=== PATIENT | male | born 1955 | race Caucasian/White ===

== ENCOUNTER 2017-06-05 13:13 | Emergency (ER) | payer BC ==
[2017-06-05 13:59] LABS: Absolute Monocytes 0.9 K/uL (0.1-1.3); Absolute Neutrophil 6.5 K/uL (1.8-8.0); Eosinophils % 1.5 % (0-4.4); Hematocrit 43.3 % (39.6-49.0); Lymphocytes % 27.8 % (15.3-44.8); MCH 30.2 pg (27.0-35.0); MCV 90.9 fL (80-100); MPV 10.2 fL (7.6-11.3); Monocytes % 8.8 % (3.3-12.3); RBC Red Blood Cell Count 4.76 M/uL (4.33-5.43)
[2017-06-05 14:04] LABS: Protime INR 0.94
[2017-06-05 14:16] LABS: Potassium 3.8 mEq/L (3.6-5.0)
[2017-06-05 14:22] LABS: Albumin 4.2 g/dL (3.2-5.5); Bilirubin Direct 0.1 mg/dL (0-0.2); Bilirubin Total 0.6 mg/dL (0.3-1.2); Protein, Total 7.8 g/dL (6.0-8.3)
--- NOTE | 2017-06-05 15:08 | RAD REPORT ---
EXAM DESCRIPTION: CT - Angio Aorta For Dissection - 06/05/2017 2:51 pm CLINICAL HISTORY: Chest pain, chest pressure, pain radiating to the back, shortness of breath COMPARISON: Noncontrast CT abdomen study April 2013, MRI February 2012 TECHNIQUE: Dynamically enhanced 3 mm thick images of the chest, abdomen, and upper pelvis were obtai donn during administration of approximately 150mL Isovue 370 IV contrast. Sagittal and coronal reconst ruction images were generated and reviewed. Exam utilizes a protocol to evaluate entire course of the aorta. All CT scans are performed using dose optimization technique as appropriate and may include automated exposure control or mA/KV adjustment according to patient size. FINDINGS: Aorta is normal in diameter with no dissection or other acute aortic findings. Aortic athe rosclerotic calcifications are present without displacement. Reconstruction images show no significan t findings. Pulmonary arteries are normal. No cardiomegaly, pericardial thickening or pericardial effusion. Dense Coronary artery calcifications are present. No mass or infiltrate in the lung parenchyma. No pleural thickening, pleural effusion or pneumothorax . No abnormal mediastinal or hilar mass or lymphadenopathy seen. No chest wall mass or abnormal axillar y lymphadenopathy. Atherosclerotic calcifications are present in the celiac and superior mesenteric artery origins. Sign ificant stenosis is doubtful. Right renal artery calcifications are present without stenosis. Approxi mately 50% stenosis is estimated at the origin of the left renal artery. The liver, spleen and pancre as show no acute findings. Gallbladder is contracted. No biliary tree dilatation. A 3 centimeter low- attenuation mass of the posterior inferior left kidney is present. This has enlarged and does not alexandra w simple cyst characteristics. Complex cyst is favored over cystic malignant process. Continued follo w-up is needed. No mass or abnormal lymphadenopathy. No free air, free fluid or inflammatory strandi ng. No urinary bladder abnormality. Mild bony degenerative change present. No acute or destructive bone process. IMPRESSION: Negative CT scan of the aorta for acute finding. Estimated 50% stenosis left renal artery origin. Approximately 3.2 centimeter complex low-attenuation mass of the left kidney. This has enlarged since 2012. Complex cyst is favored over cystic renal neoplasm. Continued follow-up is needed. No other significant findings on chest, abdomen and upper pelvis examination.
[2017-06-05] MEDS ORDERED: HYDROCODONE/APAP 7.5/325 MG TAB ONE (15:49)
--- NOTE | 2017-06-05 15:56 | RAD REPORT ---
EXAM DESCRIPTION: RAD - Chest Single View - 06/05/2017 2:12 pm CLINICAL HISTORY: Chest pain COMPARISON: January 2012 TECHNIQUE: AP portable chest image was obtained 1406 hours . FINDINGS: Lung volumes are low accentuating heart, vasculature and lung markings. Focal consolidatio n or mass not suspected. Heart size is normal. Vasculature is mildly prominent. Trachea is midline. N o measurable pleural effusion and no pneumothorax. No gross bony abnormality seen. No acute aortic fi ndings suspected. IMPRESSION: Shallow inspiration film showing mild prominence of the vasculature and lung markings. Findings are believed to be shallow inspiration artifact rather than failure or volume overload
[2017-06-05] MEDS ORDERED: TRAMADOL HCL 50 MG TAB ONE (16:12)
[2017-06-05 16:45] LABS: Urine Blood NEGATIVE (NEG); Urine Glucose NEGATIVE (NEG); Urine Protein NEGATIVE (NEG); Urine Specific Gravity 1.015 (1.005-1.030); Urine pH 7.5 (5.0-7.0)
--- NOTE | 2017-06-05 17:39 | EDPHYS ---
Physician Documentation [facility] Name: Sam Perdomo Jr Age: 61 yrs Sex: Male : 1955 Arrival Date: 06/05/2017 Time: 13:15 Bed 7 Private MD: ED Physician Robbie Spain HPI: 06/05 19:03 This 61 yrs old Male presents to ER via Ambulatory with complaints of Chest kdr Pain, Back Pain. 19:04 The patient c/o pain primarily in his back that radiates into his left chest. He states kdr that this is similar to the pain he had a number of years ago when he had his first heart attack. Then the pain was much more intense and it felt like the pain was grabbing his heart. He also vomited that time. None of that is a part of this presentation. He has also recently been seen by Oumou Avila and told that his heart was in relatively good condition. Onset: The symptoms/episode began/occurred gradually, at 06:00. Severity of symptoms: At their worst the symptoms were mild in the emergency department the symptoms are unchanged. The patient has experienced a previous episode, As noted above. The patient has been recently seen by a physician: Dr. Coello. Historical: - Allergies: 13:24 diclofenac sodium; 13:24 Levofloxacin; 13:24 Iodine; hj 13:24 Meperidine; hj 13:24 Lunesta; hj 13:24 deoxepin; hj 13:24 Demerol; hj 13:24 Doxycycline; 13:24 kapidex; 13:24 Dilaudid; hj - Home Meds: 13:24 Edarbi 40 mg oral tab 1 tab once daily [Active]; amlodipine 10 mg tab 1 tab once daily [Active]; Plavix 75 mg Oral tab 1 tab once daily [Active]; Bystolic 10 mg oral tab 1 tab once daily [Active]; omeprazole 40 mg Oral cpDR 1 cap once daily [Active]; atorvastatin 20 mg oral tab 1 tab once daily [Active]; tamsulosin 0.4 mg oral cp24 1 cap once daily [Active]; - PMHx: 13:24 Myocardial infarction; hj - PSHx: 13:24 colon resection; c5-c6 disc replacement; heart cath; hj - Social history:: Smoking status: Patient/guardian denies using tobacco. ROS: 19:04 Constitutional: Negative for fever, chills, and weight loss, Eyes: Negative for injury, kdr pain, redness, and discharge, ENT: Negative for injury, pain, and discharge, Neck: Negative for injury, pain, and swelling, Respiratory: Negative for shortness of breath, cough, wheezing, and pleuritic chest pain, Abdomen/GI: Negative for abdominal pain, nausea, vomiting, diarrhea, and constipation, : Negative for injury, bleeding, discharge, and swelling, MS/Extremity: Negative for injury and deformity, Skin: Negative for injury, rash, and discoloration, Neuro: Negative for headache, weakness, numbness, tingling, and seizure activity. Psych: Negative for depression, anxiety, suicide ideation, homicidal ideation, and hallucinations, Allergy/Immunology: Negative for hives, rash, and allergies, Endocrine: Negative for neck swelling, polydipsia, polyuria, polyphagia, and marked weight changes, Hematologic/Lymphatic: Negative for swollen nodes, abnormal bleeding, and unusual bruising. 19:04 Cardiovascular: Positive for chest pain, Negative for edema, orthopnea, palpitations, paroxysmal nocturnal dyspnea, acute changes. 19:04 Back: Positive for pain at rest, of the thoracic area, Negative for injury or acute deformity, decreased range of motion. Exam: 19:04 Constitutional: This is a well developed, well nourished patient who is awake, alert, kdr and in no acute distress. Head/Face: Normocephalic, atraumatic. Eyes: Pupils equal round and reactive to light, extra-ocular motions intact. Lids and lashes normal. Conjunctiva and sclera are non-icteric and not injected. Cornea within normal limits. Periorbital areas with no swelling, redness, or edema. Neck: Trachea midline, no thyromegaly or masses palpated, and no cervical lymphadenopathy. Supple, full range of motion without nuchal rigidity, or vertebral point tenderness. No Meningismus. Chest/axilla: Normal chest wall appearance and motion. Nontender with no deformity. No lesions are appreciated. Cardiovascular: Regular rate and rhythm with a normal S1 and S2. No gallops, murmurs, or rubs. Normal PMI, no JVD. No pulse deficits. Respiratory: Lungs have equal breath sounds bilaterally, clear to auscultation and percussion. No rales, rhonchi or wheezes noted. No increased work of breathing, no retractions or nasal flaring. Abdomen/GI: Soft, non-tender, with normal bowel sounds. No distension or tympany. No guarding or rebound. No evidence of tenderness throughout. Back: No spinal tenderness. No costovertebral tenderness. Full range of motion. Skin: Warm, dry with normal turgor. Normal color with no rashes, no lesions, and no evidence of cellulitis. MS/ Extremity: Pulses equal, no cyanosis. Neurovascular intact. Full, normal range of motion. Neuro: Awake and alert, GCS 15, oriented to person, place, time, and situation. Cranial nerves II-XII grossly intact. Motor strength 5/5 in all extremities. Sensory grossly intact. Cerebellar exam normal. Normal gait. Psych: Awake, alert, with orientation to person, place and time. Behavior, mood, and affect are within normal limits. Vital Signs: 13:25 BP 142 / 84; Pulse 62; Resp 18; Temp 98.0(TE); Pulse Ox 97% on R/A; Weight 94.35 kg; hj Height 5 ft. 10 in. (177.80 cm); Pain 6/10; 14:02 BP 134 / 82; Pulse 60; Resp 14; Pulse Ox 95% on R/A; ae1 15:03 BP 136 / 79; Pulse 61; Resp 16; Pulse Ox 97% ; ae1 16:23 BP 144 / 79; Pulse 62; Resp 18; Pulse Ox 97% on R/A; ae1 17:11 BP 140 / 85; Pulse 53; Resp 16; Pulse Ox 96% on R/A; ae1 13:25 Body Mass Index 29.85 (94.35 kg, 177.80 cm) MDM: 17:38 Patient medically screened. kdr 17:40 ED course: Discussed in detail the findings and offered admission to patient and . kdr Also, d/w Dr. Coello who was comfortable with d/c at this time. Patient and were comfortable with d/c and follow-up. 19:04 Data reviewed: vital signs, nurses notes, lab test result(s), radiologic studies. kdr Counseling: I had a detailed discussion with the patient and/or guardian regarding: the historical points, exam findings, and any diagnostic results supporting the discharge/admit diagnosis, lab results, radiology results, the need for outpatient follow up. Physician consultation: Fidel Coello MD was called at 15:00, was contacted at 15:00, regarding consult, patient's condition, outpatient follow-up, and will see patient in office, in 2-3 days. 06/05 13:42 Order name: Basic Metabolic Panel kdr 06/05 13:42 Order name: CBC with Diff; Complete Time: 15:32 kdr 06/05 13:42 Order name: LFT's; Complete Time: 15:32 kdr 06/05 13:42 Order name: Magnesium; Complete Time: 15:32 kdr 06/05 13:42 Order name: PT-INR; Complete Time: 15:32 kdr 06/05 13:42 Order name: Ptt, Activated; Complete Time: 15:32 kdr 06/05 13:42 Order name: Troponin (emerg Dept Use Only); Complete Time: 15:32 kdr 06/05 13:42 Order name: XRAY Chest (1 view); Complete Time: 17:13 kdr 06/05 13:43 Order name: Basic Metabolic Panel; Complete Time: 15:32 EDMS 06/05 14:43 Order name: Angio Aorta For Dissection; Complete Time: 15:32 EDMS 06/05 15:33 Order name: Troponin (emerg Dept Use Only): Repeat 2 hours after initial draw; Complete kdr Time: 17:06/05 16:42 Order name: Urine Dipstick--Ancillary (enter results); Complete Time: 17:13 ag 06/05 13:42 Order name: EKG; Complete Time: 13:43 kdr 06/05 13:42 Order name: Cardiac monitoring; Complete Time: 14:00 kdr 06/05 13:42 Order name: EKG - Nurse/Tech; Complete Time: 14:00 kdr 06/05 13:42 Order name: IV Saline Lock; Complete Time: 14:00 kdr 06/05 13:42 Order name: Labs collected and sent; Complete Time: 14:00 kdr 06/05 13:42 Order name: O2 Per Protocol; Complete Time: 14:00 kdr 06/05 13:42 Order name: O2 Sat Monitoring; Complete Time: 14:00 kdr 06/05 13:42 Order name: Urine Dipstick-Ancillary (obtain specimen); Complete Time: 16:23 kdr Administered Medications: 16:03 Not Given (Patient Refused): [place] (7.5 mg-325 mg) 1 tabs PO once ae1 16:13 Drug: traMADol 50 mg Route: PO; ae1 Disposition: 06/05/17 17:38 Discharged to Home. Impression: Upper back pain, chest pain - unspecified/non-cardiac. - Condition is Stable. - Discharge Instructions: Nonspecific Chest Pain, Gspi-hm-[id number], Back Pain, Adult, Xeca-ut-Cuhl. - Prescriptions for Tramadol 50 mg Oral Tablet - take 1 tablet by ORAL route every 8 hours as needed; 12 tablet. - Medication Reconciliation Form, Thank You Letter form. - Follow up: Private Physician; When: 2 - 3 days; Reason: If symptoms return, Further diagnostic work-up, Recheck today's complaints, Continuance of care, Re-evaluation by your physician. - Problem is new. - Symptoms have improved. - Notes: Follow-up with Dr. Coello in the next 24-48 hours. Signatures: Dispatcher [employer] EDMS Robbie Spain MD MD [facility] Audra Millan RN RN Ramsey Saenz, MARCELINO RN Boo Boateng RN RN ae1 Corrections: (The following items were deleted from the chart) 14:27 13:43 BNP+C.LAB.BRZ ordered. EDMS EDMS 14:43 13:45 Chest Angio+CT.RAD.BRZ ordered. EDMS EDMS
--- NOTE | 2017-06-05 17:39 | ER ---
Nurse's Notes [facility] Name: Sam Perdomo Jr Age: 61 yrs Sex: Male : 1955 Arrival Date: 06/05/2017 Time: 13:15 Bed 7 Private MD: Diagnosis: Upper back pain, chest pain - unspecified/non-cardiac Presentation: 06/05 13:17 Presenting complaint: Patient states: 6 am this morning, i started having chest pain, hj heavy, pressure type, and my back hurts too; denies nausea and vomiting; reports SOB;. Transition of care: patient was not received from another setting of care. Onset of symptoms was June 05, 2017. Care prior to arrival: None. 13:17 Method Of Arrival: Ambulatory 13:17 Acuity: MELODY 3 hj Triage Assessment: 13:24 General: Appears in no apparent distress. uncomfortable, Behavior is calm, cooperative, hj appropriate for age. Pain: Complains of pain in chest Pain radiates to back. Cardiovascular: Capillary refill < 3 seconds Patient's skin is warm and dry. Historical: - Allergies: 13:24 diclofenac sodium; hj 13:24 Levofloxacin; hj 13:24 Iodine; hj 13:24 Meperidine; hj 13:24 Lunesta; hj 13:24 deoxepin; hj 13:24 Demerol; hj 13:24 Doxycycline; hj 13:24 kapidex; hj 13:24 Dilaudid; hj - Home Meds: 13:24 Edarbi 40 mg oral tab 1 tab once daily [Active]; amlodipine 10 mg tab 1 tab once daily [Active]; Plavix 75 mg Oral tab 1 tab once daily [Active]; Bystolic 10 mg oral tab 1 tab once daily [Active]; omeprazole 40 mg Oral cpDR 1 cap once daily [Active]; atorvastatin 20 mg oral tab 1 tab once daily [Active]; tamsulosin 0.4 mg oral cp24 1 cap once daily [Active]; - PMHx: 13:24 Myocardial infarction; hj - PSHx: 13:24 colon resection; c5-c6 disc replacement; heart cath; hj - Social history:: Smoking status: Patient/guardian denies using tobacco. Screenin:06 Abuse screen: Denies threats or abuse. Nutritional screening: No deficits noted. ae1 Tuberculosis screening: No symptoms or risk factors identified. Fall Risk None identified. Assessment: 13:24 Pain: Pain began 7 hours ago;. hj 13:35 General: Appears in no apparent distress. uncomfortable, Behavior is cooperative, ae1 anxious. Pain: Complains of pain in left scapular area, right scapular area, left subscapular area, right subscapular area and thoracic area. Neuro: Level of Consciousness is awake, alert, obeys commands, Oriented to person, place, time, situation. Cardiovascular: Reports chest pressure. Patient's skin is warm and dry. Respiratory: Airway is patent Respiratory effort is even, unlabored, shallow, Respiratory pattern is regular, Breath sounds are clear bilaterally. Breath sounds are diminished in left posterior lower lobe, right posterior middle lobe and right posterior lower lobe. GI: No signs and/or symptoms were reported involving the gastrointestinal system. Reports nausea. : No signs and/or symptoms were reported regarding the genitourinary system. EENT: No signs and/or symptoms were reported regarding the EENT system. Derm: Skin is pale. Musculoskeletal: Reports Generalized weakness. 15:04 Reassessment: Patient appears in no apparent distress at this time. Patient and/or ae1 family updated on plan of care and expected duration. Pain level reassessed. 16:05 Reassessment: Patient states he is sensitive to pain medications and would like to take ae1 a medication that he knows he does not have a reaction to, patient is requesting tramadol. Provider notified, new orders for Tramadol received. Pain: Complains of pain in left scapular area, right scapular area, left subscapular area, right subscapular area and thoracic area. Vital Signs: 13:25 BP 142 / 84; Pulse 62; Resp 18; Temp 98.0(TE); Pulse Ox 97% on R/A; Weight 94.35 kg; hj Height 5 ft. 10 in. (177.80 cm); Pain 6/10; 14:02 BP 134 / 82; Pulse 60; Resp 14; Pulse Ox 95% on R/A; ae1 15:03 BP 136 / 79; Pulse 61; Resp 16; Pulse Ox 97% ; ae1 16:23 BP 144 / 79; Pulse 62; Resp 18; Pulse Ox 97% on R/A; ae1 17:11 BP 140 / 85; Pulse 53; Resp 16; Pulse Ox 96% on R/A; ae1 13:25 Body Mass Index 29.85 (94.35 kg, 177.80 cm) ED Course: 13:15 Patient arrived in ED. tw3 13:19 Triage completed. hj 13:24 Arm band placed on right wrist. hj 13:25 Patient maintains SpO2 saturation greater than 95% on room air. hj 13:29 Rj Evangelista, RN is Primary Nurse. jl7 13:31 Robbie Spain MD is Attending Physician. kdr 13:59 Boo Boateng, RN is Primary Nurse. ae1 14:06 Placed in gown. Bed in low position. Call light in reach. Side rails up X 1. Adult w/ ae1 patient. environmental monitoring specialist on. Pulse ox on. NIBP on. 14:09 X-ray completed. Portable x-ray completed in exam room. jr1 14:10 XRAY Chest (1 view) In Process Unspecified. EDMS 14:51 Angio Aorta For Dissection In Process Unspecified. EDMS Administered Medications: 16:03 Not Given (Patient Refused): [place] (7.5 mg-325 mg) 1 tabs PO once ae1 16:13 Drug: traMADol 50 mg Route: PO; ae1 Outcome: 17:38 Discharge ordered by . kdr 18:40 Patient left the ED. Signatures: Dispatcher [employer] EDMS Robbie Spain MD MD [facility] Crys Castillo jr1 Audra Milaln RN RN Ramsey Saenz RN RN Boo Boateng RN RN ae1 Rj Evangelista RN RN jl7 Calvin, Tia tw3 Corrections: (The following items were deleted from the chart) 13:27 13:25 Pulse 62bpm; Resp 18bpm; Pulse Ox 97% RA; Temp 98.0F Temporal; 94.35 kg; Height 5 hj ft. 10 in.; BMI: 29.8; Pain 6/10; hj
[2017-06-05 18:46] VITALS: TEMP 98
[2017-06-05 18:49] VITALS: BP 140/85; O2SAT 96
--- NOTE | 2017-06-05 22:30 | EKG ---
Test Date: 2017-06-05 Test Time: 13:36:41 [place]: MAXWELL MEASUREMENT RESULTS: Intervals: Rate: 69 DC: 130 QRSD: 94 QT: 434 QTc: 465 [place]: P: 11 DC: 130 QRS: 20 T: 31 INTERPRETIVE STATEMENTS: Normal sinus rhythm Normal ECG No previous ECG available for comparison Electronically Signed On 06-05-17 22:29:42 CDT by Izaiah Barone
== END 2017-06-05 18:40 | disposition home or self-care (01) ==
LOC: ER 13:13
DX: R07.89 Other chest pain (principal); I25.2 Old myocardial infarction; Z79.01 Long term (current) use of anticoagulants; Z88.1 Allergy status to other antibiotic agents; Z88.3 Allergy status to other anti-infective agents; Z88.5 Allergy status to narcotic agent; Z88.8 Allergy status to other drugs, medicaments and biological substances
CPT/HCPCS: 36415; 71045; 71275; 74175; 80048; 80076; 81003; 83735; 84484; 85025; 85610; 85730; 93005; 99285; Q9967

== ENCOUNTER 2018-05-29 10:54 | Day surgery (SDC) | payer BC ==
--- NOTE | 2018-05-29 10:00 | RAD REPORT ---
EXAM DESCRIPTION: RAD - Chest Pa And Lat (2 Views) - 05/29/2018 9:38 am CLINICAL HISTORY: Preop chest, pending temporal artery biopsy COMPARISON: None. TECHNIQUE: PA and lateral views of the chest were obtained. FINDINGS: The lungs are clear of an acute process. Interstitial pattern is similar to comparison. Heart size is normal and central vasculature is within normal limits. No pleural effusion or pneumot horax seen. No acute bony finding noted. No aortic abnormality. IMPRESSION: No acute cardiopulmonary process.
[2018-05-29 10:09] LABS: Potassium 4.3 mmol/L (3.5-5.1)
[2018-05-29] MEDS ORDERED: CEFAZOLIN/SWI 1gm 1 GM/10 ML SYR ONE (11:24)
[2018-05-29] MEDS ORDERED: Ringers Lactate 1,000 ML IV ONE (11:24)
[2018-05-29 11:42] VITALS: O2SAT 98
[2018-05-29] MEDS ORDERED: LIDOCAINE 1% MPF 30 ML VIAL ONE (11:48)
[2018-05-29] MEDS ORDERED: PROPOFOL 200 MG/20 ML VIAL IV ONE (12:39)
[2018-05-29] MEDS ORDERED: MIDAZOLAM HCL 2 MG/2 ML INJ ONE (12:40)
[2018-05-29] MEDS ORDERED: LIDOCAINE 2% MPF 5 ML VIAL ONE (12:40)
[2018-05-29] MEDS ORDERED: Mastisol Adhesive Liq ONE (13:21)
[2018-05-29] MEDS ORDERED: TRAMADOL 37.5mg/APAP 325mg PER TAB ONE (13:46)
[2018-05-29 14:40] VITALS: BP 147/74; TEMP 97.6
--- NOTE | 2018-05-30 01:59 | OP ---
Date of Procedure: 05/29/2018 Surgeon: Jose Saxena MD Line Lead: Ines Sidhu Preoperative Diagnoses: Headaches and vision changes, right side, rule out temporal arteritis. Postoperative Diagnoses: Headaches and vision changes, right side, rule out temporal arteritis. Procedure: Right temporal artery biopsy, Doppler aided. Estimated Blood Loss: Minimal. Specimen: Right temporal artery finding as above. Anesthesia: MAC. Complications: None. Disposition: The patient tolerated the procedure in stable condition and taken to recovery in good g eneral condition. Procedure In Detail: The patient was brought to the OR and placed in supine position. MAC anesthesi a was begun. The patient was prepped and draped in usual sterile fashion. Doppler device was used t o identify a branch of the right temporal artery inferior and superior to the right ear. A 4-cm inci brionna was made after Marcaine 0.5% was infiltrated locally and then subcutaneous tissue was divided an d the proximal-distal control was obtained of the branch of the temporal artery. A 4-cm segment was cut and sent to Pathology as specimen. Tied off with 4-0 silk. Wound was irrigated. Bleeding was c ontrolled with cautery. A 4-0 chromic was used to approximate the subcutaneous tissue and close the skin. Sterile dressing was applied. The patient was awakened and taken to recovery in good general condition. Discharge Note: The patient will go to day surgery and home when stable. Disposition: Home. Condition: Stable. Discharge Instructions: Resume home meds and diet. Activity as tolerated. No heavy lifting. Remov e outer dressing in 2 days. Shower. Keep wound clean and dry. Keep Steri-Strips on at all times. Follow up in my office in 2 weeks. Call for appointment. Follow with Dr. Hernandez in 1 week. Call for appointment. Ultracet 1 tablet p.o. q.4 p.r.n. pain. /MODL Voice ID: [id number] Report ID: [id number]
--- NOTE | 2018-05-30 11:33 | EKG ---
Test Date: 2018-05-29 Test Time: 09:32:25 [employer] Dispatcher: GINA MEASUREMENT RESULTS: Intervals: Rate: 59 VA: 130 QRSD: 102 QT: 436 QTc: 431 [place]: P: 21 VA: 130 QRS: 45 T: 69 INTERPRETIVE STATEMENTS: Sinus bradycardia Nonspecific T wave abnormality Abnormal ECG Compared to ECG 04/27/2016 15:50:29 T-wave abnormality now present Electronically Signed On 05-29-18 10:47:45 CDT by Izaiah Barone
== END 2018-05-29 14:24 | disposition home or self-care (01) ==
LOC: OR 10:54
PROVIDERS: ATTEND Surgery
PROC: 03BS0ZX Excision of Right Temporal Artery, Open Approach, Diagnostic (ICD-10-PCS; principal; 2018-05-29 13:15)
DX: R51 Headache (principal); I25.10 Atherosclerotic heart disease of native coronary artery without angina pectoris; K21.9 Gastro-esophageal reflux disease without esophagitis; I10 Essential (primary) hypertension; I25.2 Old myocardial infarction; Z88.3 Allergy status to other anti-infective agents; Z88.6 Allergy status to analgesic agent
CPT/HCPCS: 36415; 71046; 80048; 88305; 93005; J0690; J2250; J2704

== ENCOUNTER 2019-12-02 04:37 | Observation (INO) | payer MEDICARE ==
--- OUTSIDE RECORDS SUMMARY | 2019-12-02 04:40 | XMS REPORT | Continuity of Care Document ---
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, systemic N euro arterial (disorder) Hyperlipidemia Active Problem 10/14/2019 Misc her (disorder) Neuro Temporal arteritis Active Problem 10/14/2019 [facility] (disorder) Neuro Shoulder pain Active Problem 10/14/2019 Misch er (finding) Neuro Medications Medication Details Route Status Patient Ordering Order Source Instructions Provider Date Prednisone 1 MG 2 mg = 2 Active Mischer Oral Tablet tab, PO, 020 Neuro Daily, # 60 tab, 4 Refill(s), Pharmacy: [facility] #[id number], 172.72, cm, 10/11/19 10:47:00 CDT, Height, 94.545, kg, 10/11/19 10:47:00 CDT, Weight predniSONE 2.5 2.5 mg = 1 Active Mische r mg oral tablet tab, PO, 020 Neuro Daily, # 30 tab, 3 Refill(s), Pharmacy: [facility] #[id number] predniSONE 2.5 5 mg = 2 Active Mischer mg oral tablet tab, PO, 019 Neuro Daily, # 60 tab, 3 Refill(s), Pharmacy: [facility] #[id number] predniSONE 2.5 7.5 mg = 3 Active Mische r mg oral tablet tab, PO, 019 Neuro Daily, # 90 tab, 3 Refill(s), Pharmacy: [facility] #[id number] Restasis 0.4 mL, BOTH Active Mischer EYES, BID, 0 019 Neuro Refill(s) predniSONE 2.5 5 mg = 2 Active Mischer mg oral tablet tab, PO, 019 Neuro Daily, # 60 tab, 3 Refill(s), Pharmacy: [facility] #[id number] predniSONE 2.5 7.5 mg = 3 No Longer Misc her mg oral tablet tab, PO, Active 019 Neuro Daily, # 90 tab, 3 Refill(s), Pharmacy: [facility] [id number] predniSONE 2.5 5 mg = 2 Active Mischer mg oral tablet tab, PO, 019 Neuro Daily, # 60 tab, 3 Refill(s), Pharmacy: [facility] [id number] clopidogrel 75 75 mg = 1 Active Mischer mg oral tablet tab, PO, 019 Neuro Daily, # 30 tab, 0 Refill(s) amLODIPine 10 10 mg = 1 Active Mischer mg oral tablet tab, PO, 019 Neuro Daily, # 90 tab, 0 Refill(s) atorvastatin 20 20 mg = 1 Active Mische r mg oral tablet tab, PO, 019 Neuro Bedtime, # 30 tab, 0 Refill(s) azilsartan 40 mg = 1 Active Mischer medoxomil 40 MG tab, PO, 019 Neuro Oral Tablet Daily, 0 [Edarbi] Refill(s) omeprazole 40 40 mg = 1 Active Mischer mg oral delayed cap, PO, 019 Neuro release capsule Daily, # 30 cap, 0 Refill(s) nebivolol 20 MG 40 mg = 2 Active Mische r Oral Tablet tab, PO, 019 Neuro [Bystolic] Bedtime, 0 Refill(s) Aspirin 81 MG 81 mg = 1 Active [facility]ischer Enteric Coated tab, PO, 019 Neuro Tablet Daily, # 90 tab, 3 Refill(s) Allergies, Adverse Reactions, Alerts Substance Category Reaction Severity Reaction Status Date Comments S ource type Reported diclofenac Assertion Drug Active Mis berkley allergy Neuro Dilaudid Assertion ME^Mild Drug Active Misch er allergy Neuro Demerol Assertion Drug Active Mische r allergy Neuro Lunesta Assertion Drug Active Mische r allergy Neuro iodine Assertion Drug Active Mische r allergy Neuro Kapidex Assertion ME^Mild Drug Active Mische r allergy Neuro Dexilant Assertion ME^Mild Drug Active Misch er allergy Neuro levoFLOXacin Assertion Drug Active M ischer allergy Neuro Immunizations No Data Provided for This Section Results No Data Provided for This Section Pathology Reports No Data Provided for This Section Diagnostic Reports No Data Provided for This Section Consultation Notes No Data Provided for This Section Discharge Summaries No Data Provided for This Section History and Physicals No Data Provided for This Section Vital Signs Vital Sign Value Date Comments Source Systolic (mm Hg) 137 10/11/2019 [facility] He ro Diastolic (mm Hg) 73 10/11/2019 [facility] Ne uro Heart Rate 60 10/11/2019 [facility] Neuro Respitory Rate 16 10/11/2019 [facility] Neuro Height 172.72 cm 10/11/2019 [facility] Neuro Weight 94.545 10/11/2019 [facility] Neuro BMI Calculated 31.69 10/11/2019 [facility] Neuro Systolic (mm Hg) 125 07/11/2019 [facility] He ro Diastolic (mm Hg) 71 07/11/2019 [facility] Ne [facility]ro Height 177.8 [facility] Weight 88.182 07/11/2019 [facility] Neuro BMI Calculated 27.89 07/11/2019 [facility] Systolic (mm Hg) 127 04/12/2019 [facility] He ro Diastolic (mm Hg) 77 04/12/2019 [facility] Ne uro Heart Rate 53 04/12/2019 [facility] Respitory Rate 16 04/12/2019 [facility] Neuro Height 177.8 cm 04/12/2019 [facility] Neuro Weight 92.727 04/12/2019 [facility] BMI Calculated 29.33 04/12/2019 [facility] Systolic (mm Hg) 128 11/10/2018 [facility] He ro Diastolic (mm Hg) 77 11/10/2018 [facility] Ne uro Heart Rate 68 11/10/2018 [facility] Respitory Rate 16 11/10/2018 [facility] Height 177.8 cm 11/10/2018 [facility] Weight 97.273 11/10/2018 [facility] Neuro BMI Calculated 30.77 11/10/2018 [facility] Neuro Weight 95.909 09/22/2018 [facility] Neuro BMI Calculated 33.12 09/22/2018 [facility] Height 170.18 cm 09/22/2018 [facility] Neuro Heart Rate 66 09/22/2018 [facility] Neuro Respitory Rate 16 09/22/2018 [facility] Neuro Systolic (mm Hg) 130 09/22/2018 [facility] He ro Diastolic (mm Hg) 79 09/22/2018 [facility] Ne uro BMI Calculated 29.76 08/18/2018 [facility] Neuro Weight 94.091 08/18/2018 [facility] Neuro Height 177.8 cm 08/18/2018 [facility] Neuro Respitory Rate 16 08/18/2018 [facility] Heart Rate 62 08/18/2018 [facility] Neuro Systolic (mm Hg) 128 08/18/2018 [facility] He ro Diastolic (mm Hg) 75 08/18/2018 [facility] Ne uro Height 177.8 cm 07/08/[place] [facility] [place] Calculated 29.62 07[facility]08/[facility] Weight 93.636 07/08/2018 [facility] Respitory Rate 16 07/08/2018 [facility] [place] Rate 74 07/08/2018 [facility] [place] Systolic (mm Hg) 106 07/08/2018 [facility] He ro Diastolic (mm Hg) 67 07/08/2018 [facility] En[facility]ters Location Location Encounter Encounter Reason Attending ADM MS Stat us Source Details Type Number For Provider Date Date Visit Outpatient [id number] Mario 07/07 Active [facility] Outpatient [id number] Mario 07/07 07/08 [facility] [place] [facility] [place] [id number] Mario 08/18 [facility] [place] [facility] [place] [id number] Mario 08/18 08/19 [facility] [place] [facility] [place] [id number] Mario 09/22 [facility] MNA Outpatient [id number] Mario 09/22 09/23 [facility] [place] [facility] [place] [id number] Mario 11/03 Active [facility] [place] [facility] Amb[facility] [id number] Mario 11/03 11/03 [facility] [place] [facility] [place] Outpatient [id number] Mario 11/10 Active [facility] [place] [facility] Out[place] [id number] Mario 11/10 11/11 [facility] [place] [facility] [place]patient [id number] Mario 12/22 Active [facility] [place] [facility] Amb[facility] [id number] Mario 12/22 12/22 [facility] [place] [facility] [place] Outpatient [id number] Mario 03/07 [facility] [place] Out[facility] [id number] Mario 04/12 [facility] Ambulatory [id number] Mario 04/12 04/12 [facility] [place] [facility] Outpatient [id number] Mario 04/12 04/13 [facility]2019 [facility] [place] Outpatient [id number] Mario 07/10 Active [facility] [place] [facility] Outpatient [id number] Purvi 07/10 07/11 [facility] [place] /2019 [facility] [place] Outpatient [id number] Mario 10/10 [facility] Out[facility] [id number] Mario 10/10 Active [facility] Outpatient [id number] 10/10 [facility] [place] /2019 [facility] [place] [facility] Ambulatory [id number] 10/10 [facility] [place] [facility]2019 Neur o [place] Outpatient [id number] Mario 01/10 Active [facility] [place] Procedures Procedure Code Date Perfomer Comments Source Cervical [id number] [facility] [place]ce[place] Assessment and Plan No Data Provided for This Section Plan of Care No Data Provided for This Section Social History Social History Date Source Social History TypeResponse 10/11/2019 [facility] Smoking Status Never smoker; Exposure to Tobacco Smoke None; Cigarette Smoking Last 365 Days No; Reg Smoking Cessation Counseling No entered on: 10/11/19 Family History No Data Provided for This Section Advance Directives No Data Provided for This Section Functional Status No Data Provided for This Section
--- OUTSIDE RECORDS SUMMARY | 2019-12-02 04:40 | XMS REPORT | Summary of Care ---
:1955 Author Organization [facility] Address [address] [place] [address]- phone Encounter HQ Jose A_chema(FIN) [id number] Date(s): 10/11/19 - 10/11/19 [facility] [address], [place] [address]- [phone] Discharge Disposition: Home or Self Care Attending Physician: Mario Petit MD Referring Physician: Purvi Hernandez MD Vital Signs Most recent to oldest [Reference Range]: 1 Height 172.72 cm (10/11/19 10:47 AM) Blood Pressure [90-140/60-90 mmHg] 137/73 mmHg (10/11/19 10:47 AM) Respiratory Rate [14-20 BRMIN] 16 BRMIN (10/11/19 10:47 AM) Peripheral Pulse Rate [60-100 bpm] 60 bpm (10/11/19 10:47 AM) Weight 94.545 kg (10/11/19 10:47 AM) Body Mass Index 31.69 m2 (10/11/19 10:47 AM) Problem List Condition Effective Dates Status Health Status Informant HTN - Hypertension(Confirmed) Active Hyperlipidemia(Confirmed) Active Left shoulder pain(Confirmed) Active Right shoulder pain(Confirmed) Active Temporal arteritis(Confirmed) Active Allergies, Adverse Reactions, Alerts Substance Reaction Severity Status diclofenac Active Dilaudid DC^Mild Active Demerol Active Lunesta Active iodine Active Kapidex DC^Mild Active Dexilant DC^Mild Active levoFLOXacin Active Medications predniSONE 1 mg oral tablet 2 mg = 2 tab, PO, Daily, # 60 tab, 4 Refill(s), Pharmacy: [facility] #[id number], 172.72, cm, 10/11/19 10:47:00 CDT, Height, 94.545, kg, 10/11/19 10:47:00 CDT, Weight Start Date: 10/11/19 Stop Date: 03/09/20 Status: Ordered Results No data available for this section Immunizations No data available for this section Procedures Procedure Date Related Diagnosis Body Site Status Cervical discectomy Complete d Social History Social History Type Response Smoking Status Never smoker; Exposure to To bacco Smoke None; Cigarette Smoking Last 365 Days No; Reg Smoking Cessation Counseling No entered on: 10/11/19 Assessment and Plan No data available for this section
--- OUTSIDE RECORDS SUMMARY | 2019-12-02 04:41 | XMS REPORT | Summary of Care ---
:1955 Author Organization [facility] Address [address] [place] [address]- phone Encounter HQ Encntr_alias(FIN) [id number] Date(s): 10/11/19 - 10/11/19 [facility] [address] [place] [address]- [phone] Attending Physician: Mario ePtit MD Referring Physician: Purvi Hernandez MD Vital Signs No data available for this section Problem List Condition Effective Dates Status Health Status Informant HTN - Hypertension(Confirmed) Active Hyperlipidemia(Confirmed) Active Left shoulder pain(Confirmed) Active Right shoulder pain(Confirmed) Active Temporal arteritis(Confirmed) Active Allergies, Adverse Reactions, Alerts Substance Reaction Severity Status diclofenac Active Dilaudid PR^Mild Active Demerol Active Lunesta Active iodine Active Kapidex PR^Mild Active Dexilant PR^Mild Active levoFLOXacin Active Medications No data available for this section Results No data available for this section [...]
[2019-12-02 05:00] LABS: Absolute Lymphocytes (CBC) 2.8 K/uL (0.7-4.9); Basophils % 0.7 % (0-1.3); Hematocrit 44.4 % (39.6-49.0); Lymphocytes % 28.2 % (15.3-44.8); MPV 10.1 fL (7.6-11.3); RBC Red Blood Cell Count 4.79 M/uL (4.33-5.43)
[2019-12-02 05:03] LABS: Protime INR 0.89
[2019-12-02 05:26] LABS: ALT/SGPT 36 U/L (12-78); AST/SGOT 17 U/L (15-37); Albumin 3.6 g/dL (3.4-5.0); Alkaline Phosphatase 63 U/L (45-117); BUN Blood Urea Nitrogen 16 mg/dL (7-18); Bicarbonate 27 mmol/L (21-32); Bilirubin Direct < 0.1 mg/dL (0-0.2); Bilirubin Total 0.2 mg/dL (0.2-1.0); Glucose Level 121 mg/dL (74-106); Magnesium 2.4 mg/dL (1.8-2.4); NT PRO-BNP 49 pg/mL (<125); Potassium 3.9 mmol/L (3.5-5.1); Protein, Total 7.3 g/dL (6.4-8.2); Sodium Level 143 mmol/L (136-145); Troponin (Emerg Dept Use Only) < 0.02 ng/mL (0.0-0.045)
--- NOTE | 2019-12-02 06:52 | ER ---
Nurse's Notes [facility] Name: Sam Perdomo Jr Age: 64 yrs Sex: Male : 1955 Arrival Date: 12/02/2019 Time: 04:39 Bed 8 Private MD: Diagnosis: Angina pectoris, unspecified Presentation: 12/01 04:39 Chief complaint: Chief complaint: EMS states: Pt reports he has been having on and off ea chest pain for the past two days reports today has been worse. Pt states he feels palpitations and the pain is in his back. 04:40 Coronavirus screen: At this time, the client does not indicate any symptoms associated ea with coronavirus-19. Ebola Screen: No symptoms or risks identified at this time. Initial Sepsis Screen: Does the patient meet any 2 criteria? No. Patient's initial sepsis screen is negative. Does the patient have a suspected source of infection? No. Patient's initial sepsis screen is negative. Risk Assessment: Do you want to hurt yourself or someone else? Patient reports no desire to harm self or others. Onset of symptoms was December 02, 2019. 04:40 Method Of Arrival: EMS: [facility] ea 04:40 Acuity: MELODY 3 ea Triage Assessment: 04:51 General: Appears uncomfortable, Behavior is appropriate for age. Pain: Complains of ea pain in back and chest. Neuro: Level of Consciousness is awake, alert, obeys commands, Oriented to person, place, time. Cardiovascular: Patient's skin is warm and dry. Respiratory: Airway is patent Respiratory effort is even, unlabored, Respiratory pattern is regular, symmetrical. Derm: Skin is pink, warm \T\ dry. Historical: - Allergies: 04:45 Demerol; ea 04:45 deoxepin; ea 04:45 diclofenac sodium; ea 04:45 Dilaudid; ea 04:45 Doxycycline; ea 04:45 Iodine; ea 04:45 kapidex; ea 04:45 Levofloxacin; ea 04:45 Lunesta; ea 04:45 Meperidine; ea - Home Meds: 04:45 amlodipine 10 mg tab 1 tab once daily [Active]; atorvastatin 20 mg Oral tab 1 tab once ea daily [Active]; Bystolic 10 mg Oral tab 1 tab once daily [Active]; Edarbi 40 mg Oral tab 1 tab once daily [Active]; omeprazole 40 mg Oral cpDR 1 cap once daily [Active]; Plavix 75 mg Oral tab 1 tab once daily [Active]; tamsulosin 0.4 mg Oral cp24 1 cap once daily [Active]; - PMHx: 04:45 Myocardial infarction; ea - PSHx: 04:45 heart cath; c5-c6 disc replacement; ea - Immunization history:: Adult Immunizations up to date. - Social history:: Smoking status: Patient denies any tobacco usage or history of. Screenin:43 Abuse screen: Denies threats or abuse. Nutritional screening: No deficits noted. ea Tuberculosis screening: No symptoms or risk factors identified. Fall Risk None identified. Assessment: 04:51 Reassessment: See triage assessment. ea 06:00 Reassessment: Patient appears in no apparent distress at this time. Patient and/or jb4 family updated on plan of care and expected duration. Pain level reassessed. Patient is alert, oriented x 3, equal unlabored respirations, skin warm/dry/pink. 07:00 Reassessment: Patient appears in no apparent distress at this time. Patient and/or ph family updated on plan of care and expected duration. Pain level reassessed. Patient is alert, oriented x 3, equal unlabored respirations, skin warm/dry/pink. Pt resting quietly, reports chestpain 4/10, offered to get pain medication but pt declined. 08:00 Reassessment: Patient appears in no apparent distress at this time. Patient and/or ph family updated on plan of care and expected duration. Pain level reassessed. Patient is alert, oriented x 3, equal unlabored respirations, skin warm/dry/pink. Report called to MARCELINO Ledezma on 2nd floor. Vital Signs: 04:40 BP 172 / 79; Pulse 58; Resp 18; Temp 97.8; Pulse Ox 98% ; Weight 94.35 kg; Height 5 ft. ea 10 in. (177.80 cm); Pain 4/10; 06:00 BP 142 / 84; Pulse 53; Resp 16; Pulse Ox 96% on R/A; jb4 06:30 BP 146 / 86; Pulse 52; Resp 16; Pulse Ox 97% on R/A; jb4 07:28 BP 144 / 73; Pulse 50; Resp 18; Temp 97.6; Pulse Ox 96% on R/A; ph 04:40 Body Mass Index 29.84 (94.35 kg, 177.80 cm) ea ED Course: 04:39 Patient arrived in ED. ea 04:43 Triage completed. ea 04:43 Patient has correct armband on for positive identification. Bed in low position. Call ea light in reach. Side rails up X2. power equipment mechanics instructor on. Pulse ox on. NIBP on. 04:44 Patient placed in an exam room, on a stretcher, on cardiac exercise physiologist, on pulse oximetry. ea 04:45 Initial lab(s) drawn, by me, sent to lab. Inserted saline lock: 18 gauge in right jb4 antecubital area, using aseptic technique. Blood collected. 04:48 Kris Sheets MD is Attending Physician. tw4 04:51 Patient maintains SpO2 saturation greater than 95% on room air. ea 05:12 XRAY Chest (1 view) In Process Unspecified. EDNH 05:31 Susu Abbasi RN is Primary Nurse. ea 06:51 Prince Thomas MD is Hospitalizing Provider. tw4 07:14 No provider procedures requiring assistance completed. Patient admitted, IV remains in ea place. Administered Medications: No medications were administered Outcome: 06:51 Decision to Hospitalize by Provider. tw4 07:14 Condition: stable ea 07:14 Instructed on the need for admit, Demonstrated understanding of instructions. 08:14 Admitted to Tele accompanied by tech, via wheelchair, room 221, with chart, Report ph called to [facility] 08:14 Patient left the ED. ph Signatures: Dispatcher [employer] Nguyen Roger RN RN ph Bryson, James, RN RN jb4 Antunez, Elena, RN RN ea Wadley, Terrence, MD MD tw4 Corrections: (The following items were deleted from the chart) 04:43 04:39 Chief complaint: ea ea
--- NOTE | 2019-12-02 06:52 | EDPHYS ---
Physician Documentation [facility] Name: Sam Perdomo Jr Age: 64 yrs Sex: Male : 1955 Arrival Date: 12/02/2019 Time: 04:39 Bed 8 Private MD: ED Physician Kris Sheets HPI: 12/01 06:03 This 64 yrs old Male presents to ER via EMS with complaints of Chest Pain. tw4 06:03 The patient or guardian reports chest pain that is located primarily in the anterior tw4 chest wall, left. Onset: today. The pain does not radiate. Associated signs and symptoms: The patient has no apparent associated signs or symptoms. The chest pain is described as dull. Duration: The patient or guardian reports a single episode. Modifying factors: The symptoms are alleviated by nothing. the symptoms are aggravated by nothing. The patient has not experienced similar symptoms in the past. Historical: - Allergies: 04:45 Demerol; ea 04:45 deoxepin; ea 04:45 diclofenac sodium; ea 04:45 Dilaudid; ea 04:45 Doxycycline; ea 04:45 Iodine; ea 04:45 kapidex; ea 04:45 Levofloxacin; ea 04:45 Lunesta; ea 04:45 Meperidine; ea - Home Meds: 04:45 amlodipine 10 mg tab 1 tab once daily [Active]; atorvastatin 20 mg Oral tab 1 tab once ea daily [Active]; Bystolic 10 mg Oral tab 1 tab once daily [Active]; Edarbi 40 mg Oral tab 1 tab once daily [Active]; omeprazole 40 mg Oral cpDR 1 cap once daily [Active]; Plavix 75 mg Oral tab 1 tab once daily [Active]; tamsulosin 0.4 mg Oral cp24 1 cap once daily [Active]; - PMHx: 04:45 Myocardial infarction; ea - PSHx: 04:45 heart cath; c5-c6 disc replacement; ea - Immunization history:: Adult Immunizations up to date. - Social history:: Smoking status: Patient denies any tobacco usage or history of. ROS: 06:03 Constitutional: Negative for fever, chills, and weight loss, Eyes: Negative for injury, tw4 pain, redness, and discharge, Respiratory: Negative for shortness of breath, cough, wheezing, and pleuritic chest pain, Abdomen/GI: Negative for abdominal pain, nausea, vomiting, diarrhea, and constipation, Back: Negative for injury and pain, MS/Extremity: Negative for injury and deformity, Skin: Negative for injury, rash, and discoloration, Neuro: Negative for headache, weakness, numbness, tingling, and seizure. 06:03 Cardiovascular: Positive for chest pain, Negative for edema, orthopnea, palpitations. Exam: 06:03 Constitutional: This is a well developed, well nourished patient who is awake, alert, tw4 and in no acute distress. Head/Face: Normocephalic, atraumatic. Chest/axilla: Normal chest wall appearance and motion. Nontender with no deformity. No lesions are appreciated. Cardiovascular: Regular rate and rhythm with a normal S1 and S2. No gallops, murmurs, or rubs. Normal PMI, no JVD. No pulse deficits. Respiratory: Lungs have equal breath sounds bilaterally, clear to auscultation and percussion. No rales, rhonchi or wheezes noted. No increased work of breathing, no retractions or nasal flaring. Abdomen/GI: Soft, non-tender, with normal bowel sounds. No distension or tympany. No guarding or rebound. No evidence of tenderness throughout. Back: No spinal tenderness. No costovertebral tenderness. Full range of motion. MS/ Extremity: Pulses equal, no cyanosis. Neurovascular intact. Full, normal range of motion. Neuro: Awake and alert, GCS 15, oriented to person, place, time, and situation. Cranial nerves II-XII grossly intact. Motor strength 5/5 in all extremities. Sensory grossly intact. Cerebellar exam normal. Normal gait. Vital Signs: 04:40 BP 172 / 79; Pulse 58; Resp 18; Temp 97.8; Pulse Ox 98% ; Weight 94.35 kg; Height 5 ft. ea 10 in. (177.80 cm); Pain 4/10; 06:00 BP 142 / 84; Pulse 53; Resp 16; Pulse Ox 96% on R/A; jb4 06:30 BP 146 / 86; Pulse 52; Resp 16; Pulse Ox 97% on R/A; jb4 07:28 BP 144 / 73; Pulse 50; Resp 18; Temp 97.6; Pulse Ox 96% on R/A; ph 04:40 Body Mass Index 29.84 (94.35 kg, 177.80 cm) MDM: 04:48 Patient medically screened. tw4 06:51 Differential diagnosis: pulmonary embolus, thoracic aortic disection. HEART Score: tw4 History: Moderately Suspicious (1), ECG: Non specific repolarization disturbance / LBTB / PM (1), Age: > or = 65 years (2), Risk Factors: 1 or 2 risk factors (1), Troponin: < or = 1 x Normal Limit (0), Total Score = 5. The patient was given aspirin in the Emergency Department. Data reviewed: vital signs, EMS record. Data interpreted: Pulse oximetry: Interpretation: normal. Counseling: I had a detailed discussion with the patient and/or guardian regarding: the historical points, exam findings, and any diagnostic results supporting the discharge/admit diagnosis, lab results, radiology results. 12/01 04:40 Order name: Basic Metabolic Panel; Complete Time: 05:44 12/01 05:45 Interpretation: CL 110; GLUC 121; GFR 84. [facility] 12/01 04:40 Order name: CBC with Diff; Complete Time: 05:44 12/01 05:49 Interpretation: Normal except: MCV 92.7. [facility] 12/01 04:40 Order name: LFT's; Complete Time: 05:44 12/01 05:49 Interpretation: Normal except: A/G 1.0; GLOB 3.7. [facility] 12/01 04:40 Order name: Magnesium; Complete Time: 05:44 12/01 05:49 Interpretation: Within normal limits: MG 2.4. [facility] 12/01 04:40 Order name: NT PRO-BNP; Complete Time: 05:44 12/01 05:49 Interpretation: Within normal limits: NT PRO-BNP 49. [facility] 12/01 04:40 Order name: PT-INR; Complete Time: 05:44 12/01 04:40 Order name: Troponin (emerg Dept Use Only); Complete Time: 05:44 12/01 04:40 Order name: XRAY Chest (1 view) 12/01 04:40 Order name: EKG; Complete Time: 04:41 12/01 04:40 Order name: Cardiac monitoring; Complete Time: 05:30 12/01 04:40 Order name: EKG - Nurse/Tech; Complete Time: 05:30 ea 12/01 04:40 Order name: IV Saline Lock; Complete Time: 05:12/01 04:40 Order name: Labs collected and sent; Complete Time: :12/01 04:40 Order name: O2 Per Protocol; Complete Time: 05: ea 12/01 04:40 Order name: O2 Sat Monitoring; Complete Time: 05:30 ea EC:41 Rate is 58 beats/min. Rhythm is regular. QRS Gantt is Normal. MS interval is normal. QRS tw4 interval is normal. QT interval is normal. No Q waves. T waves are Normal. No ST changes noted. Clinical impression: Sinus bradycardia. Interpreted by me. Reviewed by me. Administered Medications: No medications were administered Disposition: 12/02/19 06:51 Hospitalization ordered by [place] for Observation. Preliminary diagnosis is Angina pectoris, unspecified. - Bed requested for Telemetry/MedSurg (observation). - Status is Observation. ph - Condition is Stable. - Problem is an ongoing problem. - Symptoms have improved. Signatures: Dispatcher [employer] EDMS Audra Millan RN RN Sahara Gamble RN RN tl1 Nguyen Beck RN RN ph Susu Abbasi RN Kris Rosenbaum ea, MD MD tw4 Corrections: (The following items were deleted from the chart) 07:24 06:51 Hospitalization Ordered by [place] [facility] for Observation. Preliminary ss diagnosis is Angina pectoris, unspecified. Bed requested for Telemetry/MedSurg (observation). Status is Observation. Condition is Stable. Problem is an ongoing problem. Symptoms have improved. tw4 07:24 07:24 12/02/2019 06:51 Hospitalization Ordered by [place] [facility] for Observation. tl1 Preliminary diagnosis is Angina pectoris, unspecified. Bed requested for Telemetry/MedSurg (observation). Status is Observation. Condition is Stable. Problem is an ongoing problem. Symptoms have improved. ss 08:14 07:24 12/02/2019 06:51 Hospitalization Ordered by [place] [facility] for Observation. ph Preliminary diagnosis is Angina pectoris, unspecified. Bed requested for Telemetry/MedSurg (observation). Status is Observation. Condition is Stable. Problem is an ongoing problem. Symptoms have improved. tl1
[2019-12-02] MEDS ORDERED: NITROGLYCERIN 0.4 MG/TAB SL PRN (08:21)
[2019-12-02] MEDS ORDERED: ASPIRIN 81 MG CHEWABLE TABLET PO SCH (09:00)
[2019-12-02] MEDS ORDERED: CLOPIDOGREL 75 MG TABLET PO SCH (09:00)
[2019-12-02] MEDS ORDERED: predniSONE 20 MG TAB PO SCH (09:00)
[2019-12-02] MEDS ORDERED: PANTOPRAZOLE 40MG TABLET PO SCH (09:00)
--- NOTE | 2019-12-02 09:01 | P.HP ---
Certification for Inpatient Patient admitted to: Observation With expected LOS: <2 Midnights Practitioner: I am a practitioner with admitting privileges, knowledge of patient current condition, hospital course, and medical plan of care. Services: Services provided to patient in accordance with Admission requirements found in Title 42 Section 412.3 of the Code of Federal Regulations Patient History Date of Service: 12/02/19 Reason for admission: Chest pain History of Present Illness: Patient is a 64 year old male with a PMH of CAD with HI in 2000 s/p PCI, HTN and HLD. He presents to the ER with a 4-day history of non-exertional chest pain, and shortness of breath. He is describing a left sided chest pain that worsened with change in position when he turns left or right. His symptoms are alleviated with ASA (2 tabs of ASA 500 mg). Patient is reluctant to take NTG due to fear of hypotension. Of note, patient just lost his brother to a massive HI. The brother underwent CABG x 2 at [facility] but unfortunately . Patient has been under a lot of stress over the past several days. Other associated sx include epigastric pain and acid reflux. Allergies iodine Allergy (Unknown, Verified 05/29/18 09:23) UNKNOWN levofloxacin [From Levaquin] Allergy (Unknown, Verified 05/29/18 09:23) UNKNOWN meperidine HCl [From Demerol] Allergy (Unknown, Verified 05/29/18 09:23) UNKNOWN eszopiclone [From Lunesta] Allergy (Unverified 05/29/18 09:23) Unknown hydromorphone [From Dilaudid] Allergy (Unverified 05/29/18 09:23) Unknown meperidine Allergy (Unverified 05/29/18 09:23) Unknown tamsulosin Adverse Reaction (Verified 05/29/18 09:23) flu like symptoms deoxepin Allergy (Uncoded 05/29/18 09:23) Unknown diclofenac sodium Allergy (Uncoded 05/29/18:23) Unknown Doxycycline Allergy (Uncoded 05/29/18 09:23) Unknown kapidex Allergy (Uncoded 05/29/18 09:23) Unknown levofloxacin Allergy (Uncoded 05/29/18 09:23) Unknown Home Medications: Aspirin 81 mg PO DAILY 02/19/12 Clopidogrel Bisulfate [Plavix] 75 mg PO DAILY 02/19/12 Nebivolol HCl [Bystolic] 40 mg PO BEDTIME 02/19/12 Amlodipine Besylate [Norvasc] 10 mg PO [id number] 02/21/12 Atorvastatin Calcium [Lipitor] 20 mg PO BEDTIME 05/29/18 Azilsartan Medoxomil [Edarbi] 40 mg PO [id number] 05/29/18 Cholecalciferol (Vitamin D3) [Vitamin D3] 1,000 unit PO DAILY 05/29/18 Docusate Sodium [Stool Softener] 100 mg PO DAILY 05/29/18 Omeprazole [Prilosec] 40 mg PO DAILY 05/29/18 Ranitidine [Zantac] 150 mg PO BID 05/29/18 predniSONE [Deltasone] 20 mg PO TID 05/29/18 - Past Medical/Surgical History Diabetic: No - Social History Alcohol use: Yes CD- Drugs: No Caffeine use: Yes Physical Examination - Vital Signs Temperature: 97.6 F Blood Pressure: 144/73 Pulse: 50 Respirations: 18 - Physical Exam General: Cooperative, Mild distress HEENT: Atraumatic, Normocephalic, EOMI Neck: Supple Respiratory: Clear to auscultation bilaterally, Normal air movement Cardiovascular: No edema, Normal pulses, Regular rate/rhythm, Normal S1 S2 Musculoskeletal: No clubbing, No swelling, No contractures, No erythema, No t enderness, No warmth Integumentary: No rashes, No breakdown, No significant lesion, No tenderness/swelling, No erythema, No warmth, No cyanosis Neurological: Normal speech, Sensation intact, Normal affect - Studies Laboratory Data (last 24 hrs) 12/02/19 04:45: PT 10.5, INR 0.89 12/02/19 04:45: WBC 10.0, Hgb 14.9, Hct 44.4, Plt Count 208 12/02/19 04:45: Sodium 143, Potassium 3.9, BUN 16, Creatinine 0.90, Glucose 121 H, Magnesium 2.4, Total Bilirubin 0.2, AST 17, ALT 36, Alkaline Phosphatase 63 Assessment and Plan - Problems (Diagnosis) (1) Chest pain Current Visit: Yes Status: Acute (2) CAD (coronary artery disease) Current Visit: Yes Status: Acute (3) Hyperlipidemia Current Visit: Yes Status: Acute (4) HTN (hypertension) Current Visit: Yes Status: Acute - Advance Directives Does patient have a Living Will: No Does patient have a Durable POA for Healthcare: No Physician Review Additional Text: Assessment Patient is a 64 year old male with CAD S/P PCI, HTN, HLD admitted with chest pain. Troponins negative x 1. He continues to have chest pain. STAT EKG showed sinus bradycardia. Otherwise, WNL. Chest pain CAD S/P PCI HTN HLD GERD PLAN: Admit under observation with telemetry Resume home dose of ASA, statin and clopidogrel Hold beta blockers at this time due to bradycardia Cardiology consult due to patient's personal and family history of coronary artery disease Resume home dose of PPI Follow up CT chest Patient has an appointment with Dr. Torre (Cardiology) tomorrow
--- NOTE | 2019-12-02 09:01 | RAD REPORT ---
EXAM DESCRIPTION: Ange Single View12/02/2019 5:13 am CLINICAL HISTORY: Chest pain COMPARISON: 2019 FINDINGS: The lungs appear clear of acute infiltrate. The heart is mildly enlarged IMPRESSION: No acute abnormalities displayed
[2019-12-02 09:41] VITALS: BMI 29.0
[2019-12-02 09:55] VITALS: O2SAT 99
[2019-12-02] MEDS ORDERED: PNEUMOCOCCAL VACCINE 0.5 ML IMVAC ONE (11:00)
--- NOTE | 2019-12-02 12:47 | P.DS ---
Admission Date: 12/02/19 Discharge Date: 12/02/19 Disposition: ROUTINE DISCHARGE Discharge Condition: GOOD Reason for Admission: Chest pain - Problems (1) Chest pain Current Visit: Yes Status: Acute (2) CAD (coronary artery disease) Current Visit: Yes Status: Acute (3) Hyperlipidemia Current Visit: Yes Status: Acute (4) HTN (hypertension) Current Visit: Yes Status: Acute Brief History of Present Illness: Patient is a 64 year old male with a PMH of CAD with MA in 2000 s/p PCI, HTN and HLD. He presents to the ER with a 4-day history of non-exertional chest pain, and shortness of breath. He is describing a left sided chest pain that worsened with change in position when he turns left or right. His symptoms are alleviated with ASA (2 tabs of ASA 500 mg). Patient is reluctant to take NTG due to fear of hypotension. Of note, patient just lost his brother to a massive MA. The brother underwent CABG x 2 at [facility] but unfortunately . Patient has been under a lot of stress over the past several days. Other associated sx include epigastric pain and acid reflux. Hospital Course: Patient is a 64-year-old male with a past medical history coronary artery disease status post PCI brought into the hospital for ACS rule out after presented with nonexertional chest pain. ACS was ruled out. Pulmonary embolism was ruled out. His symptoms were deemed to be gastrointestinal in etiology. He was given a dose of Maalox and kept on PPI. He can be discharged to follow up with Dr. Torre as outpatient. Vital Signs/Physical Exam: Temp Pulse Resp BP Pulse Ox 97 F 53 22 H 153/80 H 99 12/02/19 09:30 12/02/19 09:30 12/02/19 09:30 12/02/19 09:30 12/02/19 08:00 General: In no apparent distress, Cooperative HEENT: Atraumatic, Normocephalic, EOMI Neck: Supple Respiratory: Clear to auscultation bilaterally, Normal air movement Cardiovascular: No edema, Normal pulses, Regular rate/rhythm, Normal S1 S2 Gastrointestinal: Normal bowel sounds, Soft and benign, Non-distended, No tenderness Neurological: Normal speech, Sensation intact, Normal affect Laboratory Data at Discharge: WBC 10.0 K/uL (4.3-10.9) 12/02/19 04:45 Hgb 14.9 g/dL (13.6-17.9) 12/02/19 04:45 Hct 44.4 % (39.6-49.0) 12/02/19 04:45 Plt Count 208 K/uL (152-406) 12/02/19 04:45 PT 10.5 SECONDS (9.5-12.5) 12/02/19 04:45 INR 0.89 12/02/19 04:45 Sodium 143 mmol/L (136-145) 12/02/19 04:45 Potassium 3.9 mmol/L (3.5-5.1) 12/02/19 04:45 BUN 16 mg/dL (7-18) 12/02/19 04:45 Creatinine 0.90 mg/dL (0.55-1.3) 12/02/19 04:45 Glucose 121 mg/dL (74-106) H 12/02/19 04:45 Magnesium 2.4 mg/dL (1.8-2.4) 12/02/19 04:45 Total Bilirubin 0.2 mg/dL (0.2-1.0) 12/02/19 04:45 AST 17 U/L (15-37) 12/02/19 04:45 ALT 36 U/L (12-78) 12/02/19 04:45 Alkaline Phosphatase 63 U/L (45-117) 12/02/19 04:45 Troponin I < 0.02 ng/mL (0.0-0.045) 12/02/19 08:50 Home Medications: Aspirin 81 mg PO DAILY 02/19/12 Clopidogrel Bisulfate [Plavix] 75 mg PO DAILY 02/19/12 Nebivolol HCl [Bystolic] 40 mg PO BEDTIME 02/19/12 Amlodipine Besylate [Norvasc] 10 mg PO [id number] 02/21/12 Atorvastatin Calcium [Lipitor*] 20 mg PO BEDTIME 05/29/18 Azilsartan Medoxomil [Edarbi] 40 mg PO [id number] 05/29/18 Cholecalciferol (Vitamin D3) [Vitamin D3] 1,000 unit PO DAILY 05/29/18 Docusate Sodium [Stool Softener] 100 mg PO DAILY 05/29/18 Omeprazole [Prilosec] 40 mg PO DAILY 05/29/18 Calcium Carbonate [Calcium] 500 mg PO DAILY 12/02/19 predniSONE [Prednisone*] 1 mg PO BID 12/02/19 Diet: AHA
[2019-12-02] MEDS ORDERED: LIDOCAINE VISCOUS 2% SOLN 15 ML UDC PO PRN ×2 (13:00)
[2019-12-02] MEDS ORDERED: MAGNES/ALUMIN/SIMET 30ML UCUP PO PRN ×2 (13:00)
--- NOTE | 2019-12-02 13:22 | RAD REPORT ---
EXAM DESCRIPTION: NM - Vent Perfusion VQ Scan - 12/02/2019 1:12 pm CLINICAL HISTORY: R/O PE, allergy to contrast, shortness of breath COMPARISON: Portable chest December 01 TECHNIQUE: The patient was administered 14.7 mCi Xenon 133 gas with posterior projection inspiration , equilibrium, and washout views obtained. The patient was then administered 7.6 mCi Tc-99m MAA label ed RBCs followed by standard 8 view protocol. FINDINGS: Ventilation imaging is suboptimal due to technical problems with the equipment. Ventilatio n imaging is still felt to be diagnostic. No ventilation defects are seen. There is rapid clearing of the radiopharmaceutical from both lung trejo. No significant air-trapping seen. Perfusion images show no defects suspicious for pulmonary emboli. IMPRESSION: Normal perfusion imaging. No evidence for pulmonary embolism. Ventilation imaging shows no focal defect or air trapping.
[2019-12-02 13:36] VITALS: BP 150/75; TEMP 97.2
[2019-12-02] MEDS ORDERED: predniSONE 1 MG TAB PO SCH ×2 (21:00)
[2019-12-02] MEDS ORDERED: ATORVASTATIN 20 MG TAB PO SCH (21:00)
[2019-12-02] MEDS ORDERED: NEBIVOLOL HCL 20 MG TABLET PO SCH (21:00)
--- NOTE | 2019-12-03 07:44 | EKG ---
Test Date: 2019-12-02 Test Time: 04:46:02 Purification Operator: KEO MEASUREMENT RESULTS: Intervals: Rate: 58 NM: 130 QRSD: 90 QT: 460 QTc: 451 [place]: P: 8 NM: 130 QRS: 22 T: 33 INTERPRETIVE STATEMENTS: Sinus bradycardia with occasional premature ventricular complexes Otherwise normal ECG Compared to ECG 05/29/2018 09:32:25 Ventricular premature complex(es) now present T-wave abnormality no longer present Electronically Signed On 12-03-19 07:42:57 CDT by Fidel Coello
--- NOTE | 2019-12-03 07:44 | EKG ---
Test Date: 2019-12-02 Test Time: 08:29:58 Mechanic And Welder: LESTER MEASUREMENT RESULTS: Intervals: Rate: 53 OR: 138 QRSD: 94 QT: 474 QTc: [address] [place]: P: 36 OR: 138 QRS: 57 T: 58 INTERPRETIVE STATEMENTS: Sinus bradycardia Otherwise normal ECG Compared to ECG 12/02/2019 04:46:02 Ventricular premature complex(es) no longer present Electronically Signed On 12-03-19 07:42:56 CDT by Fidel Coello
--- NOTE | 2019-12-03 11:15 | CON ---
Date of Consultation: 12/02/2019 Reason For Consultation: Chest pain. History Of Present Illness: Mr. Perdomo is a 64-year-old white male. He is known to have hypertensio n, dyslipidemia, coronary artery disease. He is status post angioplasties and stent long time ago. Came in with mid-epigastric chest pain that is literally tender to touch radiating to the back with s ome shortness of breath recently. Denied PND, orthopnea, pedal edema, palpitation, or syncope. Jeremy ed any nausea, vomiting or diaphoresis. Denied any fever, cough or chills. Workup so far have been unremarkable with negative troponins. He continues to feel some pain on palpation. Past Medical History: As stated above. Allergies: IODINE. Review of Systems: Negative. Social History: Negative. Family History: Positive for heart disease. Medications: At home include aspirin, Plavix, , Norvasc and Bystolic. He is also on stati n. Physical Examination: Vital Signs: Stable, afebrile. HEENT: Negative. Neck: Supple without any bruit, lymphadenopathy, JVD, or thyromegaly. Chest: Clear to auscultation and percussion. Cardiac: Revealed a regular rhythm and rate. No murmurs, gallops, or rubs. Abdomen: Benign. Extremities: Revealed no clubbing, cyanosis, or edema. Diagnostic Data: Unremarkable. Impression And Plan: Atypical chest pain, most likely gastroesophageal in nature. I will suggest he go home on his home medication also to include a proton pump inhibitor. He has an echocardiogram an d a stress test scheduled in my office this week. His blood pressure, dyslipidemia well controlled. He has coronary artery disease status post intervention years ago, stable. He has allergy to iodine . We will pre treat him with prednisone, if the need for catheterization comes up down the road. He can go home as far as I am concerned. KOFI/TUCKER Voice ID: [id number] Report ID: [id number]
== END 2019-12-02 15:00 | disposition home or self-care (01) ==
LOC: ER 04:37 → ERHOLD 07:04 → 2ND 07:59
PROVIDERS: ADMIT Internal Medicine; ATTEND Internal Medicine
DX: R07.9 Chest pain, unspecified (principal); I25.10 Atherosclerotic heart disease of native coronary artery without angina pectoris; E78.5 Hyperlipidemia, unspecified; I10 Essential (primary) hypertension; Z20.828 Contact with and (suspected) exposure to other viral communicable diseases; I25.2 Old myocardial infarction; Z79.82 Long term (current) use of aspirin; Z79.02 Long term (current) use of antithrombotics/antiplatelets; Z98.61 Coronary angioplasty status; R00.1 Bradycardia, unspecified; K21.9 Gastro-esophageal reflux disease without esophagitis; Z23 Encounter for immunization
CPT/HCPCS: 93005 ×2; 85025; 80048; 36415; 83735; 85610; 85379; 80076; 84484 ×2; 83880; 71045; 90471; 90732; 78582; 99285; U0002; A9558; A9540; G0378 ×2

== ENCOUNTER 2020-01-19 16:49 | Emergency (ER) | payer MEDICARE ==
--- OUTSIDE RECORDS SUMMARY | 2020-01-19 16:52 | XMS REPORT | Continuity of Care Document ---
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, systemic N euro arterial (disorder) Hyperlipidemia Active Problem 01/14/2020 Misc her (disorder) Neuro Temporal arteritis Active Problem 01/14/2020 [facility] (disorder) Neuro Shoulder pain Active Problem 01/14/2020 Misch er (finding) Neuro Medications Medication Details Route Status Patient Ordering Order Source Instructions Provider Date Prednisone 1 MG 1 mg = 1 Active [facility]ischer Oral Tablet tab, PO, 020 Neuro Daily, # 30 tab, 4 Refill(s), Pharmacy: [facility] #[id number], 172.72, cm, 01/11/20 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, Height, 94.545, kg, 01/11/20 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, Weight Prednisone 1 MG 2 mg = 2 Active [facility]ischer Oral Tablet tab, PO, 020 Neuro Daily, # 60 tab, 4 Refill(s), Pharmacy: [facility] #[id number], 172.72, cm, 10/11/19 10:47:00 CDT, Height, 94.545, kg, 10/11/19 10:47:00 CDT, Weight predniSONE 2.5 2.5 mg = 1 Active Mische r mg oral tablet tab, PO, 020 Neuro Daily, # 30 tab, 3 Refill(s), Pharmacy: [email or web address] #[id number] predniSONE 2.5 5 mg = 2 Active Mischer mg oral tablet tab, PO, 019 Neuro Daily, # 60 tab, 3 Refill(s), Pharmacy: [email or web address] #[id number] predniSONE 2.5 7.5 mg = 3 Active Mische r mg oral tablet tab, PO, 019 Neuro Daily, # 90 tab, 3 Refill(s), Pharmacy: [facility] #[id number] Restasis 0.4 mL, BOTH Active [facility]ischer EYES, BID, 0 019 Neuro Refill(s) predniSONE 2.5 5 mg = 2 Active [facility]ischer mg oral tablet tab, PO, 019 Neuro Daily, # 60 tab, 3 Refill(s), Pharmacy: [email or web address] #[id number] predniSONE 2.5 7.5 mg = 3 No Longer Misc her mg oral tablet tab, PO, Active 019 Neuro Daily, # 90 tab, 3 Refill(s), Pharmacy: [id number] predniSONE 2.5 5 mg = 2 Active Mischer mg oral tablet tab, PO, 019 Neuro Daily, # 60 tab, 3 Refill(s), Pharmacy: [facility] [id number] clopidogrel 75 75 mg = 1 Active [...] Active Mis berkley allergy Neuro Dilaudid Assertion LA^Mild Drug Active Misch er allergy Neuro Demerol Assertion Drug Active Mische r allergy Neuro Lunesta Assertion Drug Active Mische r allergy Neuro iodine Assertion Drug Active Mische r allergy Neuro Kapidex Assertion LA^Mild Drug Active Mische r allergy Neuro Dexilant Assertion LA^Mild Drug Active Misch er allergy Neuro levoFLOXacin [...] Value Date Comments Source Systolic (mm Hg) 135 01/11/2020 [facility] He ro Diastolic (mm Hg) 77 01/11/2020 [facility] Ne uro Heart Rate 62 01/11/2020 [facility] Neuro Respitory Rate 16 01/11/2020 [facility] Neuro Height 172.72 cm 01/11/2020 [facility] Neuro Weight 94.545 01/11/2020 [facility] Neuro BMI Calculated 31.69 01/11/2020 [facility] Neuro Systolic (mm Hg) 137 10/11/2019 [facility] He ro Diastolic (mm Hg) 73 10/11/2019 [facility] Ne uro Heart Rate 60 10/11/2019 [facility] Neuro Respitory Rate 16 10/11/2019 [facility] Neuro Height 172.72 cm 10/11/2019 [facility] Neuro Weight 94.545 10/11/2019 [facility] Neuro BMI Calculated 31.69 10/11/2019 [facility] Neuro Systolic (mm Hg) 125 07/11/2019 [facility] He ro Diastolic (mm Hg) 71 07/11/2019 [facility] Ne uro Height 177.8 cm 07/11/2019 [facility] Neuro Weight 88.182 07/11/2019 [facility] Neuro BMI Calculated 27.89 07/11/2019 [facility] Neuro Systolic (mm Hg) 127 04/12/2019 [facility] He ro Diastolic (mm Hg) 77 04/12/2019 [facility] Ne uro Heart Rate 53 04/12/2019 [facility] Neuro Respitory Rate 16 04/12/2019 [facility] Neuro Height 177.8 cm 04/12/2019 [facility] Neuro Weight 92.727 04/12/2019 [facility] Neuro BMI Calculated 29.33 04/12/2019 [facility] Neuro Systolic (mm Hg) 128 11/10/2018 [facility] ro Diastolic (mm Hg) 77 11/10/2018 [facility] Heart Rate 68 11/10/2018 [facility] Neuro Respitory Rate 16 11/10/2018 [facility] Height 177.8 cm 11/10/2018 [facility] Weight 97.273 11/10/2018 [facility] BMI Calculated 30.77 11/10/2018 [facility] Weight 95.909 09/22/2018 [facility] BMI Calculated 33.12 09/22/2018 [facility] Height 170.18 cm 09/22/2018 [facility] Heart Rate 66 09/22/2018 [facility] Respitory Rate 16 09/22/2018 [facility] Systolic (mm Hg) 130 09/22/2018 [facility] ro Diastolic (mm Hg) 79 09/22/2018 [facility] BMI Calculated 29.76 08/18/2018 [facility] Neuro Weight 94.091 08/18/2018 [facility] Height 177.8 cm 08/18/2018 [facility] Neuro Respitory Rate 16 08/18/2018 [facility] Neuro Heart Rate 62 08/18/2018 [facility] Neuro Systolic (mm Hg) 128 08/18/2018 [facility] ro Diastolic (mm Hg) 75 08/18/2018 [facility] Ne uro Height 177.8 cm 07/08/2018 [facility] Neuro BMI Calculated 29.62 07/08/2018 [facility] Neuro Weight 93.636 07/08/2018 [facility] Neuro Respitory Rate 16 07/08/2018 [facility] Neuro Heart Rate 74 07/08/2018 [facility] Systolic (mm Hg) 106 07/08/2018 [facility] He ro Diastolic (mm Hg) 67 07/08/2018 [facility] Ne uro Encounters Location Location Encounter Encounter Reason Attending ADM NV Stat us Source Details Type Number For Provider Date Date Visit Outpatient [id number] Mario 07/07 Active [facility] Pritesh MNA Outpatient [id number] Mario 07/07 07/08 [facility] [place] [facility] [id number] Mario 08/18 Active [facility] MNA Outpatient [id number] Mario 08/18 08/19 [facility] [place] Outpatient [id number] Mario 09/22 Active [facility] MNA Outpatient [id number] Mario 09/22 09/23 [facility] [place] [facility]2018 [facility] [place] Outpatient [id number] Mario 11/03 Active [facility] Ambulatory [id number] Mario 11/03 11/03 [facility] [place] [facility] [place] Outpatient [id number] Mario 11/10 [facility] [id number] Mario 11/10 11/11 [facility] [place] [place] Outpatient [id number] Mario 12/22 [facility] Amb[facility] [id number] Mario 12/22 12/22 [facility] [place] [place] Outpatient [id number] Mario 03/07 [facility] [id number] Mario 04/12 [facility] [id number] Mario 04/12 04/12 [facility] [place] /2019 [facility] [place] [facility]NA Outpatient [id number] Mario 04/12 04/13 [facility] [place] /2019 [facility] [place] Outpatient [id number] Mario 07/10 Active [facility] Outpatient [id number] 07/10 [facility] [place] /2019 [facility] [place] Outpatient [id number] Mario 10/10 [facility] [id number] Mario 10/10 [facility]patient [id number] 10/10 [facility] [place] /2019 [facility] [place] [facility] Ambulatory [id number] 10/10 [facility] [place] /2019 Neur o [place] Outpatient [id number] Mario 01/10 Active [facility] Outpatient [id number] 01/10 [facility] [place] /2019 [facility] [place] Outpatient [id number] Mario 07/10 Active [facility] Procedures Procedure Code Date Perfomer Comments Source Cervical [id number] [facility] discectomy Assessment and Plan No Data Provided for This Section Plan of Care No Data Provided for This Section Social History Social History Date Source Social History TypeResponse 01/11/2020 [facility] Smoking Status Never smoker; Exposure to Tobacco Smoke None; Cigarette Smoking Last 365 Days No; Reg Smoking Cessation Counseling No entered on: 01/11/20 Family History No Data Provided for This Section Advance Directives No Data Provided for This Section Functional Status No Data Provided for This Section
--- OUTSIDE RECORDS SUMMARY | 2020-01-19 16:52 | XMS REPORT | Summary of Care ---
:1955 Author Organization [facility] Address [address] [place] [address]- phone Encounter HQ Jose A_chema(FIN) [id number] Date(s): 01/11/20 - 01/11/20 [facility] [address], [place] [address]- [phone] Discharge Disposition: Home or Self Care Attending Physician: Mario Petit MD Referring Physician: Purvi Hernandez MD Vital Signs Most recent to oldest [Reference Range]: 1 Height 172.72 cm (01/11/20 10:41 AM) Blood Pressure [90-140/60-90 mmHg] 135/77 mmHg (01/11/20 10:41 AM) Respiratory Rate [14-20 BRMIN] 16 BRMIN (01/11/20 10:41 AM) Peripheral Pulse Rate [60-100 bpm] 62 bpm (01/11/20 10:41 AM) Weight 94.545 kg (01/11/20 10:41 AM) Body Mass Index 31.69 m2 (01/11/20 10:41 AM) Problem List Condition Effective Dates Status Health Status Informant HTN - Hypertension(Confirmed) Active Hyperlipidemia(Confirmed) Active Left shoulder pain(Confirmed) Active Right shoulder pain(Confirmed) Active Temporal arteritis(Confirmed) Active Allergies, Adverse Reactions, Alerts Substance Reaction Severity Status diclofenac Active Dilaudid NE^Mild Active Lunesta Active levoFLOXacin Active Demerol Active iodine Active Kapidex NE^Mild Active Dexilant NE^Mild Active Medications predniSONE 1 mg oral tablet 1 mg = 1 tab, PO, Daily, # 30 tab, 4 Refill(s), Pharmacy: [facility] #[id number], 172.72, cm, 01/11/20 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
[2020-01-19] MEDS ORDERED: LORazepam 2 MG/ML VIAL ONE (17:43)
--- NOTE | 2020-01-19 18:11 | RAD REPORT ---
EXAM DESCRIPTION: CT - Thorax Wo Con CLINICAL HISTORY: Chest pain fall, left sided rib pain COMPARISON: Vent Perfusion VQ Scan dated 12/02/2019; Shoulder Right 2 View dated 07/03/2019 FINDINGS: The lungs are clear. No pleural thickening or pleural effusion. No pneumothorax. No axillary, mediastinal or hilar adenopathy. Nondisplaced fractures seen left third, fourth, fifth, sixth rib fractures noted. No gross upper abdo vandana finding. All CT scans are performed using dose optimization technique as appropriate and may include automated exposure control or mA/KV adjustment according to patient size. IMPRESSION: Multiple nondisplaced left sided rib fractures are noted without pneumothorax.
--- NOTE | 2020-01-19 19:12 | ER ---
Nurse's Notes [facility] Name: Sam Perdomo Jr Age: 64 yrs Sex: Male : 1955 Arrival Date: 01/19/2020 Time: 16:50 Bed 16 Private MD: Farzad Torre Diagnosis: Multiple fractures of ribs Presentation: 01/18 16:57 Chief complaint: [place] pier, landed on left side, c/o severe left sided hb chest wall pain and SOB. Takes Plavix and ASA. Care prior to arrival: None. Mechanism of Injury: Fall from standing position. Trauma event details: Injury occurred in the [facility], Injury occurred: in a recreational area. Injury occurred: January 19, 2020 Injury occurred at: 16:00. 16:57 Acuity: MELODY 2 hb 16:57 Method Of Arrival: Ambulatory hb 17:00 Coronavirus screen: At this time, the client does not indicate any symptoms associated hb with coronavirus-19. Ebola Screen: No symptoms or risks identified at this time. Initial Sepsis Screen: Does the patient meet any 2 criteria? No. Patient's initial sepsis screen is negative. Does the patient have a suspected source of infection? No. Patient's initial sepsis screen is negative. Risk Assessment: Do you want to hurt yourself or someone else? Patient reports no desire to harm self or others. Onset of symptoms. Trauma Activation: Alert Physician: ED Physician; Name: LINH Thornton; Notified At: 16:57; Arrived At: 16:58 Physician: General Surgeon; Name: ; Notified At: 16:57; Arrived At: Physician: Radiology; Name: ; Notified At: 16:57; Arrived At: 16:58 Physician: Respiratory; Name: ; Notified At: 16:57; Arrived At: Physician: Lab; Name: ; Notified At: 16:57; Arrived At: Historical: - Allergies: 17:01 Demerol; hb 17:01 deoxepin; hb 17:01 diclofenac sodium; hb 17:01 Dilaudid; hb 17:01 Doxycycline; hb 17:01 Iodine; hb 17:01 kapidex; hb 17:01 Levofloxacin; hb 17:01 Lunesta; hb 17:01 Meperidine; hb - Home Meds: 17:01 amlodipine 10 mg tab 1 tab once daily [Active]; atorvastatin 20 mg Oral tab 1 tab once hb daily [Active]; Bystolic 10 mg Oral tab 1 tab once daily [Active]; Edarbi 40 mg Oral tab 1 tab once daily [Active]; omeprazole 40 mg Oral cpDR 1 cap once daily [Active]; Plavix 75 mg Oral tab 1 tab once daily [Active]; tamsulosin 0.4 mg Oral cp24 1 cap once daily [Active]; - PMHx: 17:01 Myocardial infarction; hb - PSHx: 17:01 heart cath; c5-c6 disc replacement; hb - Immunization history: Last tetanus immunization: < 10 years ago. - Social history:: Smoking status: Patient denies any tobacco usage or history of. Screenin:02 Abuse screen: Denies threats or abuse. Denies injuries from another. Nutritional hb screening: No deficits noted. Tuberculosis screening: No symptoms or risk factors identified. Fall Risk None identified. Primary Survey: 16:58 NO uncontrolled hemorrhage observed. A: The patient is alert. Airway: patent. ca1 Breathing/Chest: Respiratory pattern: regular, Respiratory effort: spontaneous, unlabored, Breath sounds: clear, bilaterally. Chest inspection: symmetrical rise and fall of the chest. Circulation: Heart tones present. Pulses: palpable bilateral radial, brachial, femoral, popliteal, posterior tibial and and dorsalis pedis arteries.. Skin color: pink, Skin temperature: warm, dry. Disability Alert. Exposure/Environment: All clothing and personal items were removed. Forensic evidence collection is not deemed to be indicated at this time. Items placed in patient belonging bag. There is no evidence of uncontrolled external bleeding. No obvious injuries are noted at this time. A warming method has been applied: A warm blanket has been provided to the patient. 17:39 Reassessment Airway Airway Patent Breathing/Chest Respiratory pattern Regular ca1 Respiratory effort Spontaneous Unlabored Breath sounds Clear Chest inspection Symmetrical Circulation Heart tones Present Pulses Palpable Color [place] Temperature Warm Dry Disability Alert. Secondary Survey: 17:31 HEENT: No deficits noted. Head No injury/deformity Face No injury/deformity Eyes: No ca1 injury or deformity noted. to bilateral eyes. Ears: clear bilaterally. Nose: clear to bilateral nares. Throat: No injury or deformity noted. Gastrointestinal: No deficits noted. : No signs and/or symptoms were reported regarding the genitourinary system. Musculoskeletal: No signs and/or symptoms reported regarding the musculoskeletal system. Circulation, motion, and sensation intact. Capillary refill < 3 seconds. Assessment: 17:00 General: Appears in no apparent distress. uncomfortable, Behavior is calm, cooperative, ca1 appropriate for age. Pain: Complains of pain in left lateral anterior chest and left lateral posterior chest Pain currently is 10 out of 10 on a pain scale. Pain began 30 min ago. Neuro: Level of Consciousness is awake, alert, obeys commands, Oriented to person, place, time, situation. Cardiovascular: Heart tones S1 S2 present Capillary refill < 3 seconds Patient's skin is warm and dry. Respiratory: Airway is patent Respiratory effort is even, unlabored, Respiratory pattern is regular, symmetrical, Breath sounds are clear bilaterally. GI: Abdomen is round non-distended, Bowel sounds present X 4 quads. Abd is soft and non tender X 4 quads. : No signs and/or symptoms were reported regarding the genitourinary system. EENT: No signs and/or symptoms were reported regarding the EENT system. Derm: Skin is intact, is healthy with good turgor, Skin is pink, warm \T\ dry. Musculoskeletal: Circulation, motion, and sensation intact. Capillary refill < 3 seconds. 18:05 Reassessment: Patient appears in no apparent distress at this time. Patient and/or ca1 family updated on plan of care and expected duration. Pain level reassessed. Patient is alert, oriented x 3, equal unlabored respirations, skin warm/dry/pink. 19:00 Reassessment: Patient appears in no apparent distress at this time. Patient and/or ca1 family updated on plan of care and expected duration. Pain level reassessed. Patient is alert, oriented x 3, equal unlabored respirations, skin warm/dry/pink. Vital Signs: 17:00 BP 132 / 83; Pulse 89; Resp 24; Temp 97.8; Pulse Ox 98% on R/A; Pain 10/10; hb 18:05 BP 139 / 57; Pulse 79; Resp 17 S; Pulse Ox 100% on R/A; ca1 19:00 BP 133 / 82; Pulse 66; Resp 18 S; Pulse Ox 100% on R/A; ca1 John Coma Score: 16:58 Eye Response: spontaneous(4). Verbal Response: oriented(5). Motor Response: obeys ca1 commands(6). Total: 15. Trauma Score (Adult): 16:58 Eye Response: spontaneous(1); Verbal Response: oriented(1); Motor Response: obeys ca1 commands(2); Systolic BP: > 89 mm Hg(4); Respiratory Rate: 10 to 29 per min(4); Allen Score: 15; Trauma Score: 12 ED Course: 16:50 Patient arrived in ED. as 16:51 Farzad Torre MD is Private Physician. as 16:53 Aida Espinosa, MARCELINO is Primary Nurse. ca1 16:56 Norberto Clarke PA is PHCP. [facility] 16:56 Pablo Cobos MD is Attending Physician. jmm 17:00 Triage completed. hb 17:00 Pulse ox on. NIBP on. Warm blanket given. ca1 17:01 Arm band placed on. hb 17:02 Patient has correct armband on for positive identification. Placed in gown. Bed in low hb position. Call light in reach. Side rails up X 1. 17:02 Patient maintains SpO2 saturation greater than 95% on room air. hb 17:04 Thermoregulation: warm blanket given to patient. ca1 17:15 No provider procedures requiring assistance completed. Inserted saline lock: 20 gauge ca1 in right antecubital area, using aseptic technique. 17:23 CT Chest Wo Con In Process Unspecified. EDMS 19:11 Farzad Torre MD is Referral Physician. [facility] 19:19 IV discontinued, intact, bleeding controlled, No redness/swelling at site. Pressure ca1 dressing applied. Administered Medications: 17:30 Drug: Ativan 1 mg Route: IVP; Site: right antecubital; ca1 18:09 Follow up: Response: No adverse reaction ca1 Intake: 16:58 PO: 0ml; Total: 0ml. ca1 Outcome: 19:12 Discharge ordered by . [facility] 19:19 Discharged to home ambulatory, with family. ca1 19:19 Condition: stable 19:19 Discharge instructions given to patient, Instructed on discharge instructions, follow up and referral plans. no drinking with medication, no driving heavy equipment, medication usage, Demonstrated understanding of instructions, follow-up care, medications, Prescriptions given X 1. 19:19 Patient's length of stay in the Emergency Department was greater than 2 hours. Pt ca1 dischargedPatient's length of stay extended due to 19:20 Patient left the ED. ca1 Signatures: Dispatcher [employer] EDMS Norberto Clarke PA PA jmm Martinez, Amelia as Baxter, Heather, RN RN Aida Espinosa RN RN ca1
--- NOTE | 2020-01-19 19:13 | EDPHYS ---
Physician Documentation [facility] Name: Sam Perdomo Jr Age: 64 yrs Sex: Male : 1955 Arrival Date: 01/19/2020 Time: 16:50 Bed 16 Private MD: Farzad Torre ED Physician Pablo Cobos HPI: 01/18 17:01 This 64 yrs old Male presents to ER via Ambulatory with complaints of Fall jmm Injury - rib pain. 17:01 Details of fall: The patient fell from an upright position. Onset: The symptoms/episode jmm began/occurred acutely, just prior to arrival. Associated injuries: The patient sustained injury to the chest, pain with breathing. This is a 64 year old male with a history of CAD that presents to the ED with complaints of left sided rib pain beginning after falling onto a wooden pier. Denies head injury, denies loc, vomiting, shortness of breath, abdominal pain, back pain. . Historical: - Allergies: 17:01 Demerol; hb 17:01 deoxepin; hb 17:01 diclofenac sodium; hb 17:01 Dilaudid; hb 17:01 Doxycycline; hb 17:01 Iodine; hb 17:01 kapidex; hb 17:01 Levofloxacin; hb 17:01 Lunesta; hb 17:01 Meperidine; hb - Home Meds: 17:01 amlodipine 10 mg tab 1 tab once daily [Active]; atorvastatin 20 mg Oral tab 1 tab once hb daily [Active]; Bystolic 10 mg Oral tab 1 tab once daily [Active]; Edarbi 40 mg Oral tab 1 tab once daily [Active]; omeprazole 40 mg Oral cpDR 1 cap once daily [Active]; Plavix 75 mg Oral tab 1 tab once daily [Active]; tamsulosin 0.4 mg Oral cp24 1 cap once daily [Active]; - PMHx: 17:01 Myocardial infarction; hb - PSHx: 17:01 heart cath; c5-c6 disc replacement; hb - Immunization history: Last tetanus immunization: < 10 years ago. - Social history:: Smoking status: Patient denies any tobacco usage or history of. ROS: 17:01 Constitutional: Negative for fever, chills, and weight loss, Cardiovascular: Negative jmm for chest pain, palpitations, and edema, Respiratory: Negative for shortness of breath, cough, wheezing, and pleuritic chest pain. 17:01 All other systems are negative. Exam: 17:01 Head/Face: atraumatic. Eyes: EOMI, no conjunctival erythema appreciated ENT: Moist jm Mucus Membranes Neck: Trachea midline, Supple Cardiovascular: Regular rate and rhythm. No edema appreciated Respiratory: Normal respirations, no respiratory distress appreciated Abdomen/GI: Non distended, soft 17:01 Skin: General appearance color normal MS/ Extremity: Moves all extremities, no obvious deformities appreciated, no edema noted to the lower extremities Neuro: Awake and alert, normal gait Psych: Behavior is normal, Mood is normal, Patient is cooperative and pleasant 17:01 Constitutional: The patient appears alert, awake, uncomfortable. 17:01 Chest/axilla: left sided chest wall tenderness on palpation, no obvious deformities. . Vital Signs: 17:00 BP 132 / 83; Pulse 89; Resp 24; Temp 97.8; Pulse Ox 98% on R/A; Pain 10/10; hb 18:05 BP 139 / 57; Pulse 79; Resp 17 S; Pulse Ox 100% on R/A; ca1 19:00 BP 133 / 82; Pulse 66; Resp 18 S; Pulse Ox 100% on R/A; ca1 [place] Coma Score: 16:58 Eye Response: spontaneous(4). Verbal Response: oriented(5). Motor Response: obeys ca1 commands(6). Total: 15. Trauma Score (Adult): 16:58 Eye Response: spontaneous(1); Verbal Response: oriented(1); Motor Response: obeys ca1 commands(2); Systolic BP: > 89 mm Hg(4); Respiratory Rate: 10 to 29 per min(4); [place] Score: 15; Trauma Score: 12 MDM: 17:[address] [facility] 19:09 Data reviewed: vital signs, nurses notes. Counseling: I had a detailed discussion with gayatri the patient and/or guardian regarding: the historical points, exam findings, and any diagnostic results supporting the discharge/admit diagnosis, radiology results, the need for outpatient follow up, to return to the emergency department if symptoms worsen or persist or if there are any questions or concerns that arise at home. ED course: I discussed with the patient the need for admission for observation due to 3 + rib fractures. Patient declined. Was given IS with education. Given strict return precautions. Patient understood and agrees with the plan of care. . 19:09 Refusal of service: The patient/guardian displays adequate decision making capability [facility] and despite a detailed discussion of alternatives, benefits, risks, and consequences refuses: Admission to the hospital for further work-up and treatment. 01/18 17:02 Order name: CT Chest Wo Con; Complete Time: 18:[address] [facility] 01/18 17:02 Order name: Saline Lock; Complete Time: 17:[address] [facility] 01/18 18:33 Order name: INCENTIVE SPIROMETRY [facility] Administered Medications: 17:30 Drug: Ativan 1 mg Route: IVP; Site: right antecubital; ca1 18:09 Follow up: Response: No adverse reaction ca1 Disposition: 01/19 07:12 Co-signature as Attending Physician, Pablo Cobos MD. rn Disposition: 01/19/20 19:12 Discharged to Home. Impression: Multiple fractures of ribs. - Condition is Stable. - Discharge Instructions: Rib Fracture, Incentive Spirometer. - Prescriptions for Valium 5 mg Oral Tablet - take 1 tablet by ORAL route every 8 hours As needed; 20 tablet. - Medication Reconciliation Form, Thank You Letter, Antibiotic Education, Prescription Opioid Use form. - Follow up: Farzad Torre MD; When: 2 - 3 days; Reason: Recheck today's complaints, Continuance of care, Re-evaluation by your physician. Signatures: Dispatcher [employer] EDMS Norberto Clarke PA PA Pablo Cruz MD MD rn Baxter, Heather, RN RN Aida Espinosa RN RN ca1 Corrections: (The following items were deleted from the chart) 01/18 17:23 17:19 Ribs Left+RAD.RAD.BRZ ordered. [facility] EDME 19:20 19:12 01/19/2020 19:12 Discharged to Home. Impression: Multiple fractures of ribs. ca1 Condition is Stable. Forms are Medication Reconciliation Form, Thank You Letter, Antibiotic Education, Prescription Opioid Use. Follow up: Farzad Torre; When: 2 - 3 days; Reason: Recheck today's complaints, Continuance of care, Re-evaluation by your physician. [facility]
[2020-01-19 21:23] VITALS: TEMP 97.8
[2020-01-19 21:26] VITALS: O2SAT 100
[2020-01-19 21:28] VITALS: BP 133/82
== END 2020-01-19 19:20 | disposition home or self-care (01) ==
LOC: ER 16:49
DX: S22.42XA Multiple fractures of ribs, left side, initial encounter for closed fracture (principal); W19.XXXA Unspecified fall, initial encounter; Y93.9 Activity, unspecified; Y92.89 Other specified places as the place of occurrence of the external cause; I25.2 Old myocardial infarction; I25.10 Atherosclerotic heart disease of native coronary artery without angina pectoris; Z79.01 Long term (current) use of anticoagulants; Z88.1 Allergy status to other antibiotic agents; Z88.5 Allergy status to narcotic agent; Z88.8 Allergy status to other drugs, medicaments and biological substances; Z91.048 Other nonmedicinal substance allergy status
CPT/HCPCS: 71250; 96374; 99284; G0390

== ENCOUNTER 2021-01-14 12:26 | Emergency (ER) | payer MEDICARE ==
[2021-01-14 13:30] LABS: Absolute Lymphocytes (CBC) 0.6 K/uL (0.7-4.9); Basophils % 0.6 % (0-1.3); Hematocrit 41.6 % (39.6-49.0); Lymphocytes % 4.4 % (15.3-44.8); MPV 9.6 fL (7.6-11.3); RBC Red Blood Cell Count 4.37 M/uL (4.33-5.43)
[2021-01-14 13:38] LABS: Protime INR 0.9
--- NOTE | 2021-01-14 13:41 | RAD REPORT ---
EXAM DESCRIPTION: RAD - Chest Single View - 01/14/2021 1:33 pm CLINICAL HISTORY: right lower anterior rib pain;Blunt chest trauma Chest pain. COMPARISON: Chest Single View dated 12/02/2019; Chest Pa And Lat (2 Views) dated 05/29/2018; Abdomen 1 View (KUB) dated 03/13/2018; Chest Single View dated 06/05/2017 FINDINGS: Portable technique limits examination quality. The lungs are grossly clear. The heart is normal in size. No displaced fractures. IMPRESSION: No acute intrathoracic process suspected.
[2021-01-14 13:47] LABS: Albumin 3.1 g/dL (3.4-5.0); Bilirubin Direct 0.1 mg/dL (0-0.2); Bilirubin Total 0.6 mg/dL (0.2-1.0); Potassium 4.5 mmol/L (3.5-5.1); Protein, Total 6.3 g/dL (6.4-8.2)
[2021-01-14 14:12] LABS: Blood Morphology Comment NOT SEEN (NOT SEEN); Platelet Estimate ADEQ; White Blood Cell Scan OK (OK)
--- NOTE | 2021-01-14 14:24 | RAD REPORT ---
EXAM DESCRIPTION: CTAbdomen Pelvis W Contrast - 01/14/2021 2:04 pm CLINICAL HISTORY: Abdominal pain. blunt right upper abd trauma, on plavix COMPARISON: CT ABD PELVIS W CONTRAST dated 04/07/2007; Thorax Wo Con dated 01/19/2020; Angio Aorta F or Dissection dated 06/05/2017 TECHNIQUE: Biphasic CT imaging of the abdomen and pelvis was performed with 100 ml non-ionic IV cont rast. All CT scans are performed using dose optimization technique as appropriate and may include automated exposure control or mA/KV adjustment according to patient size. FINDINGS: The lung bases are clear. The liver, spleen, pancreas, adrenal glands and right kidney are within normal limits. 36 mm slightly complicated cystic lesion is seen medial left kidney. No bowel obstruction, free air, free fluid or abscess. Postsurgical changes in the sigmoid colon. Sig moid diverticulosis coli without diverticulitis. The appendix is normal. No evidence of significant lymphadenopathy. No suspicious bony findings. IMPRESSION: No acute intra-abdominal or pelvic finding. 36 mm complex left renal cystic lesion is present, mildly enlarged since 2018 comparative study. Sebas salazar nonemergent MRI of the kidneys would be recommended.
--- NOTE | 2021-01-14 14:36 | EDPHYS ---
Physician Documentation [facility] Name: Sam Perdomo Jr Age: 65 yrs Sex: Male : 1955 Arrival Date: 01/14/2021 Time: 12:28 Bed 17 Private MD: ED Physician Pablo Cobos HPI: 01/14 13:29 This 65 yrs old Male presents to ER via Ambulatory with complaints of Fall rn Injury - Rib Pain. 13:29 Details of fall: The patient fell from an upright position, while walking. Onset: The rn symptoms/episode began/occurred last night. 13:30 Associated injuries: The patient sustained injury to the chest, injury to the abdomen. rn Severity of symptoms: At their worst the symptoms were moderate, in the emergency department the symptoms have improved. The patient has experienced a previous episode. The patient has not recently seen a physician. Patient reports fall last night, dragging a cooler, fell while walking and hit right anterior chest and abdomen on pier. Similar fall last year where he broke 4 ribs on the left side. Denies head injury. Reports landed on knees first and knees bruised up but is ambulatory and does not feel like they are broken.. Historical: - Allergies: 12:39 Iodine; ld1 12:39 Demerol; ld1 12:39 deoxepin; ld1 12:39 diclofenac sodium; ld1 12:39 Dilaudid; ld1 12:39 Doxycycline; ld1 12:39 kapidex; ld1 12:39 Levofloxacin; ld1 12:39 Lunesta; ld1 12:39 meperidine; ld1 - Home Meds: 12:39 atorvastatin 20 mg Oral tab 1 tab once daily [Active]; amlodipine 10 mg tab 1 tab once ld1 daily [Active]; Plavix 75 mg Oral tab 1 tab once daily [Active]; tamsulosin 0.4 mg Oral cp24 1 cap once daily [Active]; omeprazole 40 mg Oral cpDR 1 cap once daily [Active]; Bystolic 10 mg Oral tab 1 tab once daily [Active]; Edarbi 40 mg Oral tab 1 tab once daily [Active]; Prednisone Oral [Active]; - PMHx: 12:39 Myocardial infarction; ld1 - Immunization history:: Adult Immunizations up to date, Client reports receiving the 2nd dose of the Covid vaccine. - Social history:: Smoking status: Patient denies any tobacco usage or history of. Patient uses alcohol, occasionally. - Family history:: not pertinent. - Hospitalizations: : No recent hospitalization is reported. ROS: 13:30 Constitutional: Negative for fever, chills, and weight loss, Eyes: Negative for injury, rn pain, redness, and discharge, Neck: Negative for injury, pain, and swelling, Cardiovascular: Negative for palpitations, and edema, Respiratory: Negative for shortness of breath, cough, wheezing Abdomen/GI: Negative for abdominal pain, nausea, vomiting, diarrhea, and constipation, Back: Negative for injury and pain, : Negative for injury, bleeding, discharge, and swelling, MS/Extremity: Negative for injury and deformity, Skin: Negative for injury, rash, and discoloration, Neuro: Negative for headache, weakness, numbness, tingling, and seizure. Exam: 13:30 Constitutional: This is a well developed, well nourished patient who is awake, alert, rn and in no acute distress. Head/Face: Normocephalic, atraumatic. Eyes: Periorbital areas with no swelling, redness, or edema. Neck: Trachea midline, no masses palpated. Supple, full range of motion without nuchal rigidity, or vertebral point tenderness. Chest/axilla: Moderate tenderness right anterior lower rib cage without crepitus Cardiovascular: Regular rate and rhythm. No pulse deficits. Respiratory: No increased work of breathing, no retractions or nasal flaring. Abdomen/GI: Soft, mild tenderness epigastrium and right upper quadrant. No ecchymosis of abdominal or flank villa. Skin: Warm, dry, no lacerations MS/ Extremity: Pulses equal, no cyanosis. Neurovascular intact. Full, normal range of motion. Equal circumference. Neuro: Awake and alert, GCS 15, oriented to person, place, time, and situation. Cranial nerves II-XII grossly intact. Motor strength 5/5 in all extremities. Sensory grossly intact. Cerebellar exam normal. Normal gait. Vital Signs: 12:36 BP 142 / 78; Pulse 66; Resp 17; Temp 97.8(O); Pulse Ox 97% on R/A; Weight 93.44 kg; ld1 Height 5 ft. 9 in. (175.26 cm); Pain 8/10; 13:30 BP 138 / 76; Pulse 68; Resp 18; Temp 97.9(O); Pulse Ox 98% on R/A; sl2 14:30 BP 132 / 78; Pulse 70; Resp 18; Temp 98; Pulse Ox 100% ; sl2 12:36 Body Mass Index 30.42 (93.44 kg, 175.26 cm) ld1 MDM: 12:43 Patient medically screened. rn 14:34 Differential diagnosis: contusion, fracture. Data reviewed: vital signs, nurses notes, rn private duty test result(s), radiologic studies, CT scan, plain films, and as a result, I will discharge patient. Counseling: I had a detailed discussion with the patient and/or guardian regarding: the historical points, exam findings, and any diagnostic results supporting the discharge/admit diagnosis, lab results, radiology results, the need for outpatient follow up, to return to the emergency department if symptoms worsen or persist or if there are any questions or concerns that arise at home. Special discussion: Based on the patient's history, exam, and Dx evaluation, there is no indication for emergent intervention or inpatient Tx. It is understood by the patient/guardian that if the Sx's persist or worsen they need to return immediately for re-evaluation. Based on the patient's Hx, exam, and Dx evaluation, there is no indication for emergent surgery or inpatient Tx. It is understood by the patient/guardian that if the Sx's persist or worsen they need to return immediately for re-evaluation. I discussed with the patient/guardian in detail that at this point there is no indication for admission to the hospital. It is understood, however, that if the symptoms persist or worsen the patient needs to return immediately for re-evaluation. ED course: No acute traumatic findings discovered on chest x-ray or CAT scan of abdomen DC home as contusion and superficial injuries. 01/14 12:49 Order name: CBC with Diff; Complete Time: 14:32 rn 01/14 12:49 Order name: Basic Metabolic Panel; Complete Time: 13:48 rn 01/14 12:49 Order name: Protime (+inr); Complete Time: 13:48 rn 01/14 12:49 Order name: Ptt, Activated; Complete Time: 13:48 rn 01/14 12:49 Order name: LFT's; Complete Time: 13:48 rn 01/14 12:49 Order name: Lipase; Complete Time: 13:48 rn 01/14 12:49 Order name: XRAY Chest (1 view); Complete Time: 13:48 rn 01/14 12:49 Order name: CT Abd/Pelvis - IV Contrast Only; Complete Time: 14:32 rn 01/14 12:49 Order name: IV Start; Complete Time: 13:21 rn 01/14 14:12 Order name: CBC Smear Scan; Complete Time: 14:32 EDMS Administered Medications: No medications were administered Disposition Summary: 01/14/21 14:35 Discharge Ordered Location: Home rn Problem: new rn Symptoms: have improved rn Condition: Stable rn Diagnosis - Contusion of abdominal wall, initial encounter rn - Contusion of right front wall of thorax, initial encounter rn Followup: rn - With: Private Physician - When: As needed - Reason: Recheck today's complaints, Re-evaluation by your physician Discharge Instructions: - Discharge Summary Sheet rn - Contusion rn - Blunt Chest Trauma rn Forms: - Medication Reconciliation Form rn - Thank You Letter rn - Antibiotic government sales manager - Prescription Opioid Use rn Signatures: Dispatcher [employer] EDMS Pablo Cobos MD MD rn Dibbern, Lauren, RN RN ld1 Corrections: (The following items were deleted from the chart) 13:31 13:29 Onset: The symptoms/episode began/occurred just prior to arrival, rn rn
--- NOTE | 2021-01-14 14:36 | ER ---
Nurse's Notes [facility] Name: Sam Perdomo Jr Age: 65 yrs Sex: Male : 1955 Arrival Date: 01/14/2021 Time: 12:28 Bed 17 Private MD: Diagnosis: Contusion of abdominal wall, initial encounter;Contusion of right front wall of thorax, initial encounter Presentation: 01/14 12:36 Chief complaint: Patient states: Last night I was dragging a cooler full of bait down ld1 the pier, my foot got caught on one of the boards. I fell straight forward onto my knees and I hit my right ribs on the pier. Pt reporting pain in LAKE rib cage and LAKE knees. Left arm bruising noted. Coronavirus screen: At this time, the client does not indicate any symptoms associated with coronavirus-19. Ebola Screen: No symptoms or risks identified at this time. Initial Sepsis Screen: Does the patient meet any 2 criteria? No. Patient's initial sepsis screen is negative. Does the patient have a suspected source of infection? No. Patient's initial sepsis screen is negative. Risk Assessment: Do you want to hurt yourself or someone else? Patient reports no desire to harm self or others. Onset of symptoms was January 14, 2021. 12:36 Method Of Arrival: Ambulatory ld1 12:36 Acuity: MELODY 3 ld1 Triage Assessment: 12:39 General: Appears in no apparent distress. comfortable, Behavior is calm, cooperative, ld1 appropriate for age. Pain: Complains of pain in diaphragm, right upper quadrant, left arm, right knee and left knee Pain does not radiate. Pain currently is 8 out of 10 on a pain scale. Quality of pain is described as sharp, throbbing, Pain began suddenly, Is continuous. EENT: No signs and/or symptoms were reported regarding the EENT system. Neuro: Level of Consciousness is awake, alert, obeys commands, Oriented to person, place, time, situation. Cardiovascular: Capillary refill < 3 seconds Patient's skin is warm and dry. Respiratory: Airway is patent Respiratory effort is even, unlabored, Respiratory pattern is regular, symmetrical. GI: Abdomen is round non-distended. : No signs and/or symptoms were reported regarding the genitourinary system. Derm: No signs and/or symptoms reported regarding the dermatologic system. Derm: Bruising that is dark purple. Musculoskeletal: Reports pain in diaphragm. Historical: - Allergies: 12:39 Iodine; ld1 12:39 Demerol; ld1 12:39 deoxepin; ld1 12:39 diclofenac sodium; ld1 12:39 Dilaudid; ld1 12:39 Doxycycline; ld1 12:39 kapidex; ld1 12:39 Levofloxacin; ld1 12:39 Lunesta; ld1 12:39 meperidine; ld1 - Home Meds: 12:39 atorvastatin 20 mg Oral tab 1 tab once daily [Active]; amlodipine 10 mg tab 1 tab once ld1 daily [Active]; Plavix 75 mg Oral tab 1 tab once daily [Active]; tamsulosin 0.4 mg Oral cp24 1 cap once daily [Active]; omeprazole 40 mg Oral cpDR 1 cap once daily [Active]; Bystolic 10 mg Oral tab 1 tab once daily [Active]; Edarbi 40 mg Oral tab 1 tab once daily [Active]; Prednisone Oral [Active]; - PMHx: 12:39 Myocardial infarction; ld1 - Immunization history:: Adult Immunizations up to date, Client reports receiving the 2nd dose of the Covid vaccine. - Social history:: Smoking status: Patient denies any tobacco usage or history of. Patient uses alcohol, occasionally. - Family history:: not pertinent. - Hospitalizations: : No recent hospitalization is reported. Screenin:00 Abuse screen: Denies threats or abuse. Denies injuries from another. sl2 14:00 Nutritional screening: No deficits noted. Tuberculosis screening: No symptoms or risk sl2 factors identified. Fall Risk Fall in past 12 months (25 points). No secondary diagnosis (0 pts). No IV (0 pts). Ambulatory Aid- Crutches/Cane/Walker (15 pts). Gait- Normal/Bed Rest/Wheelchair (0 pts) Mental Status- Oriented to own ability (0 pts). Vital Signs: 12:36 BP 142 / 78; Pulse 66; Resp 17; Temp 97.8(O); Pulse Ox 97% on R/A; Weight 93.44 kg; ld1 Height 5 ft. 9 in. (175.26 cm); Pain 8/10; 13:30 BP 138 / 76; Pulse 68; Resp 18; Temp 97.9(O); Pulse Ox 98% on R/A; sl2 14:30 BP 132 / 78; Pulse 70; Resp 18; Temp 98; Pulse Ox 100% ; sl2 12:36 Body Mass Index 30.42 (93.44 kg, 175.26 cm) ld1 ED Course: 12:28 Patient arrived in ED. ds1 12:39 Triage completed. ld1 12:39 Arm band placed on left wrist. ld1 12:43 Pablo Cobos MD is Attending Physician. rn 13:06 Milvia Saleh, RN is Primary Nurse. sl2 13:20 Inserted saline lock: 20 gauge in left antecubital area, using aseptic technique. lt3 13:33 XRAY Chest (1 view) In Process Unspecified. EDMS 13:[address] via wheelchair. sl2 14:00 Patient has correct armband on for positive identification. Bed in low position. Call sl2 light in reach. 14:00 No provider procedures requiring assistance completed. sl2 14:04 CT Abd/Pelvis - IV Contrast Only In Process Unspecified. EDMS 15:05 IV discontinued, intact, bleeding controlled, No redness/swelling at site. Pressure sl2 dressing applied. Administered Medications: No medications were administered Outcome: 14:35 Discharge ordered by . rn 15:04 Discharged to home ambulatory. sl2 15:04 Condition: stable 15:04 Discharge instructions given to patient, Instructed on discharge instructions, follow up and referral plans. Demonstrated understanding of instructions, follow-up care. 15:05 Patient left the ED. sl2 Signatures: Dispatcher [employer] EDMO Dinora Goncalves ds1 Pablo Cobos MD MD rn Dibbern, Lauren RN RN ld1 Milvai Saleh, MARCELINO RN sl2 Dina Shah lt3
[2021-01-14 15:50] VITALS: BP 138/76; TEMP 97.9; O2SAT 98
== END 2021-01-14 15:05 | disposition home or self-care (01) ==
LOC: ER 12:26
DX: S30.1XXA Contusion of abdominal wall, initial encounter (principal); S20.211A Contusion of right front wall of thorax, initial encounter; W18.39XA Other fall on same level, initial encounter; Y93.01 Activity, walking, marching and hiking; Y92.89 Other specified places as the place of occurrence of the external cause; Z88.1 Allergy status to other antibiotic agents; Z88.5 Allergy status to narcotic agent; Z88.8 Allergy status to other drugs, medicaments and biological substances
CPT/HCPCS: 85025; 80048; 36415; 85610; 80076; 85730; 83690; 74177; 71045; 99284; Q9967

== ENCOUNTER 2021-07-17 16:12 | Emergency (ER) | payer OTHER ==
--- NOTE | 2021-07-17 18:47 | RAD REPORT ---
EXAM DESCRIPTION: RAD - Shoulder Left 2 View - 07/17/2021 6:40 pm CLINICAL HISTORY: fall COMPARISON: Shoulder Left 2 View dated 07/03/2019 FINDINGS/IMPRESSION: No acute fracture. No malalignment. Mild left glenohumeral joint degenerative c hanges. Minimal left AC joint degenerative changes.
--- NOTE | 2021-07-17 18:54 | EDPHYS ---
Physician Documentation [facility] Name: Sam Perdomo Jr Age: 65 yrs Sex: Male : 1955 Arrival Date: 07/17/2021 Time: 16:15 Bed Waiting Private MD: ED Physician Pablo Cobos HPI: 07/17 17:24 This 65 yrs old Male presents to ER via Ambulatory with complaints of Fall Injury, rn shoulder injury. 17:25 Details of fall: The patient fell from an upright position. Onset: The symptoms/episode rn began/occurred just prior to arrival. Associated injuries: The patient sustained left shoulder. 17:25 Severity of symptoms: At their worst the symptoms were moderate, in the emergency rn department the symptoms are unchanged. The patient has not experienced similar symptoms in the past. The patient has not recently seen a physician. Pt states fall from standing, with left arm outstretched, felt and heard a pop, already has left rotator cuff problems with repair, isolated pain to left shoulder. No head injury, no neck pain, no chest pain. No hip or lower ext pain.. Historical: - Allergies: 17:11 Demerol; iw 17:11 deoxepin; iw 17:11 diclofenac sodium; iw 17:11 Dilaudid; iw 17:11 Doxycycline; iw 17:11 Iodine; iw 17:11 kapidex; iw 17:11 Lunesta; iw 17:11 meperidine; iw 17:11 Levofloxacin; iw - PMHx: 17:11 Myocardial infarction; iw - Family history:: not pertinent. - Hospitalizations: : No recent hospitalization is reported. ROS: 17:25 Constitutional: Negative for fever, chills, and weight loss, Eyes: Negative for injury, rn pain, redness, and discharge, Neck: Negative for injury, pain, and swelling, Cardiovascular: Negative for chest pain, palpitations, and edema, Respiratory: Negative for shortness of breath, cough, wheezing, and pleuritic chest pain, Abdomen/GI: Negative for abdominal pain, nausea, vomiting, diarrhea, and constipation, Back: Negative for injury and pain, MS/Extremity: + left shoulder pain and injury Skin: Negative for injury, rash, and discoloration, Neuro: Negative for headache, weakness, numbness, tingling, and seizure. Exam: 17:25 Constitutional: This is a well developed, well nourished patient who is awake, alert, rn and in no acute distress. Head/Face: Normocephalic, atraumatic. Neck: No midline tenderness Chest/axilla: Normal chest wall appearance and motion. Nontender with no deformity. Skin: Warm, dry, no cyanosis MS/ Extremity: Pulses equal, no cyanosis. Neurovascular intact. + painful ROM left shoulder with tenderness along posterior/proximal humerus. No tenderness or swelling along clavicle. No tenderness mid-distal humerus/elbow/forearm/wrist Neuro: Awake and alert, GCS 15 Vital Signs: 17:11 BP 136 / 75; Pulse 58; Resp 16; Temp 98.6; Pulse Ox 97% on R/A; iw MDM: 17:14 Patient medically screened. rn 18:52 Differential diagnosis: contusion, fracture, sprain, strain, tendon injury. Data rn reviewed: vital signs, nurses notes, radiologic studies, plain films, and as a result, I will discharge patient. Counseling: I had a detailed discussion with the patient and/or guardian regarding: the historical points, exam findings, and any diagnostic results supporting the discharge/admit diagnosis, radiology results, the need for outpatient follow up, to return to the emergency department if symptoms worsen or persist or if there are any questions or concerns that arise at home. Special discussion: I discussed with the patient/guardian in detail that at this point there is no indication for admission to the hospital. It is understood, however, that if the symptoms persist or worsen the patient needs to return immediately for re-evaluation. Based on the history and exam findings, there is no indication for further emergent testing or inpatient evaluation. I discussed with the patient/guardian the need to see the orthopedic surgeon for further evaluation of the symptoms. ED course: Pt already in sling, will dc home with pain medication and ortho f/u.. 07/17 17:12 Order name: Shoulder Left (2 View) XRAY; Complete Time: 18:54 iw Administered Medications: No medications were administered Disposition Summary: 07/17/21 18:53 Discharge Ordered Location: Home rn Problem: new rn Symptoms: have improved rn Condition: Stable rn Diagnosis - Strain of muscle(s) and tendon(s) of the rotator cuff of left shoulder rn Followup: rn - With: Private Physician - When: As needed - Reason: Recheck today's complaints, Re-evaluation by your physician Discharge Instructions: - Discharge Summary Sheet rn - Shoulder Pain rn - Shoulder Sprain rn - How to Use a Sling rn Forms: - Medication Reconciliation Form rn - Thank You Letter rn - Antibiotic turntable man - Prescription Opioid Use rn Prescriptions: - Tramadol 50 mg Oral Tablet - take 1 tablet by ORAL route every 8 hours as needed; 12 tablet; Refills: 0, rn Product Selection Permitted Signatures: Dispatcher [employer] Xochilt Iyer RN RN Pablo Ng MD MD rn
--- NOTE | 2021-07-17 18:54 | ER ---
Nurse's Notes [facility] Name: Sam Perdomo Jr Age: 65 yrs Sex: Male : 1955 Arrival Date: 07/17/2021 Time: 16:15 Bed Waiting Private MD: Diagnosis: Strain of muscle(s) and tendon(s) of the rotator cuff of left shoulder Presentation: 07/17 17:09 Chief complaint: Patient states: tripped and fell backwards on left arm, felt a pop in iw left shoulder , no other injury, denies hitting head , happened about 2 hours ago. 17:09 Acuity: MELODY 3 iw 17:09 Method Of Arrival: Ambulatory iw 17:11 Coronavirus screen: At this time, the client does not indicate any symptoms associated iw with coronavirus-19. Risk Assessment: Do you want to hurt yourself or someone else? Patient reports no desire to harm self or others. Historical: - Allergies: 17:11 Demerol; iw 17:11 deoxepin; iw 17:11 diclofenac sodium; iw 17:11 Dilaudid; iw 17:11 Doxycycline; iw 17:11 Iodine; iw 17:11 kapidex; iw 17:11 Lunesta; iw 17:11 meperidine; iw 17:11 Levofloxacin; iw - PMHx: 17:11 Myocardial infarction; iw - Family history:: not pertinent. - Hospitalizations: : No recent hospitalization is reported. Vital Signs: 17:11 BP 136 / 75; Pulse 58; Resp 16; Temp 98.6; Pulse Ox 97% on R/A; iw ED Course: 16:15 Patient arrived in ED. ja2 17:11 Triage completed. iw 17:14 Pablo Cobos MD is Attending Physician. rn 18:42 Shoulder Left (2 View) XRAY In Process Unspecified. EDMS 19:04 Marilyn Herrera RN is Primary Nurse. bb Administered Medications: No medications were administered Outcome: 18:53 Discharge ordered by . rn 19:04 Patient left the ED. bb Signatures: Dispatcher [employer] EDMS Marilyn Herrera RN RN bb Xochilt Wilson RN RN iw Pablo Cobos MD MD rn Alexander, Jessica ja2
[2021-07-17 19:10] VITALS: BP 136/75; TEMP 98.6; O2SAT 97
== END 2021-07-17 19:04 | disposition home or self-care (01) ==
LOC: ER 16:12
DX: S46.012A Strain of muscle(s) and tendon(s) of the rotator cuff of left shoulder, initial encounter (principal); W18.30XA Fall on same level, unspecified, initial encounter; I25.2 Old myocardial infarction; Z88.1 Allergy status to other antibiotic agents; Z88.3 Allergy status to other anti-infective agents; Z88.5 Allergy status to narcotic agent; Z88.8 Allergy status to other drugs, medicaments and biological substances; Z91.048 Other nonmedicinal substance allergy status
CPT/HCPCS: 99282

== ENCOUNTER 2022-03-02 08:09 | Day surgery (SDC) | payer MEDICARE, OTHER ==
[2022-02-17 13:18] LABS: Absolute Lymphocytes (CBC) 2.1 K/uL (0.7-4.9); Hematocrit 39.9 % (39.6-49.0); MCV 92.6 fL (80-100); MPV 9.6 fL (7.6-11.3); Protime INR 0.98; RBC Red Blood Cell Count 4.31 M/uL (4.33-5.43)
[2022-02-17 13:32] LABS: Potassium 4.1 mmol/L (3.5-5.1)
[2022-03-02] MEDS ORDERED: CEFAZOLIN SODIUM 2 GM/VIAL ONE (08:32)
[2022-03-02] MEDS ORDERED: Ringers Lactate 1,000 ML IV ONE (08:32)
[2022-03-02] MEDS ORDERED: HYDROCORTISONE SUC 100 MG INJ ONE (08:37)
[2022-03-02] MEDS ORDERED: propofoL 200 MG/20 ML VIAL IV ONE (10:25)
[2022-03-02] MEDS ORDERED: NS 0.9% VIAL 10 ML ONE (10:25)
[2022-03-02] MEDS ORDERED: LIDOCAINE 1% MPF 5 ML VIAL ONE (10:25)
[2022-03-02] MEDS ORDERED: FENTANYL CITR 100 MCG/2 ML ONE (10:25)
[2022-03-02] MEDS ORDERED: KETOROLAC 30 MG/ML INJ ONE (10:46)
[2022-03-02] MEDS ORDERED: EPHEDRINE SULF 50 MG/ML VIAL ONE (10:52)
[2022-03-02] MEDS ORDERED: PHENAZOPYRIDINE 100MG TAB PO ONE ×2 (11:46→12:24)
[2022-03-02] MEDS ORDERED: TRAMADOL 37.5mg/APAP 325mg PER TAB PO ONE (11:46)
[2022-03-02] MEDS ORDERED: TRAMADOL 37.5mg/APAP 325mg PER TAB ONE (12:24)
[2022-03-02 13:30] VITALS: BP 150/77; TEMP 96.8; O2SAT 97
--- NOTE | 2022-03-03 10:40 | OP ---
Surgeon: BRENDAN VICENTE Preoperative Diagnoses: 1.Benign prostatic hypertrophy with lower urinary tract obstruction and symptoms. 2.Incomplete bladder emptying. Postoperative Diagnoses: 1.Benign prostatic hypertrophy with lower urinary tract obstruction and symptoms. 2.Incomplete bladder emptying. Procedure: Prostatic urethral lift/UroLift with 7 implants placed. Indication For Procedure: Mr. Perdomo presented to the Urology Clinic with a history of percutaneous cardiac intervention and stents placed in 2000, on aspirin and Plavix along with other medical comorb idities and who had severe irritative and obstructive urinary symptoms due to BPH with potential for slight neuropathic dysfunction of his bladder, who was also intolerant to Flomax, but improved on Uro xatral with anatomic obstruction. He was counseled on options for management of his obstruction to i nclude bipolar TURP versus UroLift, and he elected to proceed with the UroLift. Procedure In Detail: The patient was consented in the preoperative holding area before being transfe rred to operative suite where general anesthesia was induced. He was given Ancef 2 g IV antimicrobia l prophylaxis and Pneumoboots were provided for DVT prophylaxis. He was placed in the lithotomy posi tion, padded and secured to the table appropriately, and his genitalia were prepped with Hibiclens an d draped in standard fashion. The case was begun using the 20-Maori UroLift sheath and visual obtur ator to traverse the urethra and enter his bladder with ease. Of note, there was a slight degree of meatal stenosis, which I was able to navigate beyond by using the visual obturator component outside of the sheath to dilate the meatus. The bladder was decompressed off fluid and urine, and the previo usly observed lateral lobar hypertrophy with slight elevation of the median bar was again observed. As a result, I began by switching the visual obturator for a UL2 delivery device with an implant. Th e first implant targeted was in the left lateral wall of the prostate between 1 and 2 o'clock about 1 .5 to 2 cm distal to the bladder neck. Angled it about 10 degrees laterally, the first trigger pull was performed deploying the needle through the surface of the prostate. An additional 10 degrees of compression was then obtained to ensure complete delivery of the needle to the capsular surface of th e prostate. A second pull of the trigger deployed the capsular tap and partially retracted the needl e. A third pull of the trigger further tensioned the suture and completely retracted the needle. I then angled the scope back to the midline and advanced it about 2 to 3 mm until the monofilament was centered in the delivery bay, and the fourth pull of the trigger did cut the suture and apply in the implant/urethral end piece. This was nicely positioned with about 0.25 cm of prostate tissue between the implant and the bladder neck. As a result, I advanced the device back into the bladder and exch anged it for a new UroLift implant, which was subsequently targeted in the right lateral wall between the 10 and 11 o'clock position about 1.5 to 2 cm distal to the bladder neck symmetrically. Once suc cessfully placed, a third implant was targeted this time at the apex at the level of the verumontanum on the left between 2 and 3 o'clock, and a fourth implant was targeted to the right of the verumonta num between 9 and 10 o'clock. I then advanced the UroLift delivery device back into the bladder and exchanged it for visual obturator and decompressed his bladder. I then surveyed the channel created, and while the bladder neck was nicely open and the apical region was nicely lateralized, there was s till significant mid gland lateral lobar tissue intruding and obstructing the urethral lumen. As a r esult, a fifth implant was targeted in the left lateral wall, distal to the bladder neck implant on t he left side, but sufficient to lateralize some of that intruding tissue. Of note, I had previously surmised that it would take 2 additional implants in the mid zone of the prostate on the left and 1 o n the right. This is indeed what was required, because after placing an implant in the mid zone of t he prostate on the left, I then placed an implant in the invaginating midzone tissue on the right bef ore using the visual obturator to survey the channel and determining that 1 additional implant would be beneficial just proximal to the apical implant at the verumontanum on the left side. Once this wa s done and a total of 7 implants were used, 4 on the left and 3 on the right, survey of the channel c reated revealed a nice continuous anterior channel. While there was some residual anterior overhang in conjunction with slight elevation of the median bar, an anterior channel was yet visible and paten t. As a result, I then refilled his bladder with saline and placed an 18-Maori coude tipped cathete r into his bladder with ease. I then placed about 30 cc of sterile water in the balloon, the cathete r was connected to a leg bag after the bladder was decompressed off light pink urine. He was then ta skip out of the lithotomy position, awakened from general anesthesia, transferred to a stretcher, and then transferred to the recovery room in good condition. Complications: None. Discharge Disposition: He will be standard postop UroLift pathway and will be given an opportunity t o void prior to discharge from the recovery. He will be instructed to resume his aspirin and Plavix as follows: 1.Resume aspirin tomorrow. 2.Resume Plavix once urine is minimally pink or clear, likely by Tuesday. ZI/TUCKER Voice ID: [id number] Report ID: [id number]
== END 2022-03-02 13:18 | disposition home or self-care (01) ==
LOC: OR 08:09
PROVIDERS: ATTEND Urology
PROC: 0T7D8DZ Dilation of Urethra with Intraluminal Device, Via Natural or Artificial Opening Endoscopic (ICD-10-PCS; principal; 2022-03-02 09:30)
DX: N40.1 Benign prostatic hyperplasia with lower urinary tract symptoms (principal); R33.9 Retention of urine, unspecified; N13.9 Obstructive and reflux uropathy, unspecified
CPT/HCPCS: 87088; 85025; 87086; 80048; 36415; 85610; 52441; 52442 ×6; J2704; J2001; J3010; A4216; J7120; J1720

== ENCOUNTER 2022-03-03 02:43 | Emergency (ER) | payer MEDICARE, OTHER ==
--- OUTSIDE RECORDS SUMMARY | 2022-03-03 02:47 | XMS REPORT | Continuity of Care Document ---
:1955 Author Organization [facility] t Address [address] [place] [address] Care Team Providers Name Role Phone Farzad Torre Attending Clinician Unavailable Mario Petit Attending Clinician Agustín Attending Clinician Unavailable Casey Barrow Attending Clinician [phone] Agustín Admitting Clinician Unavailable Payers Payer Name Policy Type Policy Number Effective Date Expiration Date Lala [employer] Medicare [id number] [facility] - MEDICARE [id number] COMPLETE (MEDICARE REPLACEMENT HMO) Problems Condition Condition Condition Status Onset Resolution Last Treating Co mments Source Name Details Category Date Date Treatment Clinician Date Full Full Problem Active Brenna thickness Thickness 5-12 Orth ope rotator Rotator 00:00: dic cuff tear Cuff Tear 00 Spor ts Medicin e Sprain of Sprain of Problem Active Aza anne shoulder Shoulder 5-05 Orthop e rotator Rotator 00:00: dic cuff Cuff 00 Sports Medicin e Nontraumat Nontraumat Problem Active A zalea ic rupture ic Rupture 3-08 Or thope of long of Long 00:00: dic head of Head of 00 Sports biceps Biceps Medicin brachii Brachii e tendon of Tendon of left Left shoulder Shoulder Sprain of Sprain of Problem Active 2022-0 Aza anne left Left 3-08 Orthope rotator Rotator 00:00: dic cuff Cuff 00 Sports capsule Capsule Medicin e Hypertensi Hypertens Problem Active 2022-01-24 Memoria ve cj 13:01:06 l disorder, disorder, Herm nika systemic systemic arterial arterial (disorder) (disorder) Active Problem 01/24/2022 [facility] Hyperlipid Hyperlipi Problem Active 2022-01-24 Memoria emia demia 13:01:06 l (disorder) (disorder) He rmann Active Problem 01/24/2022 [facility] 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 specified [id number] Diverticul Problem Co mmon ar disease [facility] - [facility] [id number] Dyslipidem Problem Co mmon ia 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[facility] of bladder - [facility] [id number] BPH loc w Problem Com mon urin Spirit obs/LUTS - [facility] [id number] Essential Problem Comm on hypertensi [facility] on [facility] [id number] History of Problem Co mmon coronary [facility] artery - [facility] disease [facility] [id number] History of Problem Co mmon arteritis [facility] - [facility] [id number] Lower Problem Common urinary [facility] tract - [facility] symptoms ([facility] [id number] Primary Problem Commo n testicular [facility] failure - [facility] [id number] ED Problem Common (erectile [facility] dysfunctio - [facility] n) of [facility] Allergies, Adverse Reactions, Alerts Allergy Allergy Status Severity Reaction(s) Onset Inactive Treating Comm ents Source Name Type Date Date Clinician diclofen diclofen Active Memori a ac ac l Pritesh Dilaudid Dilaudid Active Memori a l Pritesh Demerol Demerol Active Memoria l Pritesh Lunesta Lunesta Active Memoria l Pritesh iodine iodine Active Memoria l [place] Kapidex Kapidex Active Memoria l Pritesh levoFLOX levoFLOX Active Memori a acin acin l Pritesh Meperidi Meperidi Active Memori a ne ne l HCl-Prom HCl-Prom [place] ethazine ethazine HCl HCl levoflox levoflox Active Unknown Commo n acin acin [facility] doxycycl doxycycl Active Unknown Commo n ine ine [facility] diclofen diclofen Active Unknown Commo n ac ac [facility] dexlanso dexlanso Active Unknown Commo n prazole prazole [facility] Shellfis Shellfis Active Unknown Commo n h h [facility] meperidi meperidi Active Unknown Commo n ne ne [facility] [id number] Drug Active Unknown Common allergy [facility] Doxepin Doxepin Active Unknown Common [facility] hydromor hydromor Active Unknown Commo n phone phone [facility] eszopicl eszopicl Active Unknown Commo n one one [facility] 463 Drug Active Unknown Common allergy [facility] Social History Social Habit Start Date Stop Date Quantity Comments Source History of Tobacco Common [facility] - Use [facility] Social History 2022-01-21 2022-01-21 [facility] felicitynika 20:55:09 20:55:09 Smoking Status Start Date Stop Date Source Tobacco smoking status [facility] Medications Ordered Filled Start Stop Current Ordering Indication Dosage Frequency Signature Comments Components Source Medication Medication Date Date Medication? Clinician (SIG) Name Name Viagra 100 Viagra 100 2021-02- QD Viagra 100 MG MG 2-15 07-13 MG 00:00: 00:00 00 :00 predniSONE 2021-02 Yes See Memoria 1 mg oral 03-24 Instructio l tablet 21:17: ns, 4 tab [place] n 00 PO Daily, # 120 tab, 3 Refill(s), Pharmacy: [facility] #[id number], 170.18, cm, 10/21/21 9:53:00 CDT, Height, 95, kg, 10/21/21 9:53:00 CDT, Weight predniSONE 2021-0 Yes 5 mg = 2 Mem oria 2.5 mg oral 8-31 tab, PO, l tablet 15:02: Daily, # [place] 00 60 tab, 4 Refill(s), [id number], 170.18, cm, 10/21/21 9:53:00 CDT, Height, 95, kg, 10/21/21 9:53:00 CDT, Weight predniSONE 2021-0 Yes 7.5 mg = 3 M emoria 2.5 mg oral 6-02 tab, PO, l tablet 15:20: Daily, # Pritesh 00 90 tab, 4 Refill(s), Pharmacy: [facility] #[id number], 170.18, cm, 07/23/21 10:00:00 CDT, Height, 94.688, kg, 07/23/21 10:00:00 CDT, Weight predniSONE 2021-0 Yes 10 mg = 1 Me moria 10 mg oral 4-15 tab, PO, l tablet 14:53: Daily, # Pritesh 00 30 tab, 2 Refill(s), [id number], 170.18, cm, 06/05/21 9:28:00 CDT, Height, 95, kg, 06/05/21 9:28:00 CDT, Weight alfuzosin 2021-0 Yes 10 mg = 1 Mem oria 10 mg oral 4-15 tab, PO, l tablet, 14:42: Daily, # [place] n extended 00 30 tab, 0 release Refill(s) predniSONE 2021-0 Yes 10 mg = 1 Me moria 10 mg oral 3-04 tab, PO, l tablet 16:34: Daily, # Pritesh 00 30 tab, 2 Refill(s), Pharmacy: [facility] #[id number], 170.18, cm, 04/24/21 10:11:00 DIVISION CHAIR, Height, 95, kg, 04/24/21 10:11:00 DIVISION CHAIR, Weight predniSONE 2-0 Yes 20 mg = 1 Me moria 20 mg oral 1-20 tab, PO, l tablet 16:52: Daily, X Pritesh 00 30 day, # 30 tab, 2 Refill(s), Pharmacy: [facility] #[id number], 170.18, cm, 03/12/21 10:25:00 DIVISION CHAIR, Height, 89.091, kg, 03/12/21 10:25:00 DIVISION CHAIR, Weight ciprofloxac Yes 0 Memori a in 500 mg 1-20 Refill(s) l oral tablet 16:27: [place] n 00 predniSONE 2020-02 Yes 40 mg = 2 Me moria 20 mg oral 2-09 tab, PO, l tablet 18:05: Daily, X Pritesh day, # 60 tab, 2 Refill(s), Pharmacy: [facility] #[id number], 172.72, cm, 01/29/21 11:37:00 DIVISION CHAIR, Height, 88.636, kg, 01/29/21 11:37:00 DIVISION CHAIR, Weight Miralax 2020-02 Yes 17 gm, PO, John sunil 2-09 Daily, 0 l 17:49: Refill(s) [place] MiraLax 2020-02 Yes 17 gm, PO, John sunil 2-09 Daily, 0 l 17:49: Refill(s) Pritesh ciprofloxac 2020-02 Yes 500 mg = 1 Memoria in 500 mg 2-09 tab, PO, l oral tablet 17:48: Q12H, 0 Her prince 00 Refill(s) tramadol 2020-02 Yes 50 mg = 1 John sunil hydrochlori 2-09 tab, PO, l de 50 MG 17:47: Q6H, 0 Pritesh Oral Tablet 00 Refill(s) tramadol 50 2020-02 Yes 50 mg = 1 M emoria mg oral 2-09 tab, PO, l tablet 17:47: Q6H, 0 [place] 00 Refill(s) predniSONE 2020-02 Yes 60 mg = 3 Me moria 20 mg oral 1-09 tab, PO, l tablet 15:54: Daily, X Pritesh day, # 90 tab, 2 Refill(s), Pharmacy: [facility] #[id number], 170.18, cm, 12/30/20 9:44:00 DIVISION CHAIR, Height, 92.727, kg, 12/30/20 9:44:00 DIVISION CHAIR, Weight predniSONE 2020-02 No 60 mg = 3 Me moria 20 mg oral 1-09 tab, PO, l tablet 15:50: Daily, 0 [place] 00 Refill(s) MethylPREDN 2020-02 No FOLLOW John sunil ISolone 03-01 PACKAGE l Dose Pack 4 15:46: DIRECTIONS [place] mg oral 00 tablet atorvastati Yes TAKE 1 John sunil n 10 mg 5-20 TABLET BY l oral tablet 16:00: MOUTH Iqra nn 00 EVERY NIGHT AT BEDTIME Prednisone 2019-02 Yes 1 mg = 1 Mem oria 1 MG Oral 1-20 tab, PO, l Tablet 17:25: Daily, # Pritesh 00 30 tab, 4 Refill(s), Pharmacy: [facility] #[id number], 172.72, cm, 01/11/20 10:41:00 DIVISION CHAIR, Height, 94.545, kg, 01/11/20 10:41:00 DIVISION CHAIR, Weight Prednisone Yes 2 mg = 2 Mem oria 1 MG Oral 8-20 tab, PO, l Tablet 15:57: Daily, # Pritesh 00 60 tab, 4 Refill(s), Pharmacy: [facility] #[id number], 172.72, cm, 10/11/19 10:47:00 CDT, Height, 94.545, kg, 10/11/19 10:47:00 CDT, Weight predniSONE Yes 2.5 mg = 1 M emoria 2.5 mg oral 5-20 tab, PO, l tablet 16:17: Daily, # [place] 00 30 tab, 3 Refill(s), Pharmacy: [facility] #[id number] predniSONE 2018-02 Yes 5 mg = 2 Mem oria 2.5 mg oral 2-10 tab, PO, l tablet 22:46: Daily, # [place] 14 60 tab, 3 Refill(s), Pharmacy: [facility] #[id number] predniSONE Yes 7.5 mg = 3 M emoria 2.5 mg oral 9-20 tab, PO, l tablet 21:29: Daily, # Pritesh 41 90 tab, 3 Refill(s), Pharmacy: [facility] #[id number] Restasis Yes 0.4 mL, Memori a 9-20 BOTH EYES, l 21:07: BID, 0 Pritesh 00 Refill(s) Restasis 2019-0 Yes 0.4 mL, Memori a 9-20 BOTH EYES, l 21:07: BID, 0 [place] 00 Refill(s) predniSONE 2019-0 Yes 5 mg = 2 Mem oria 2.5 mg oral 8-02 tab, PO, l tablet 21:15: Daily, # Pritesh 19 60 tab, 3 Refill(s), Pharmacy: [facility] #[id number] predniSONE 2019-0 No 7.5 mg = 3 M emoria 2.5 mg oral 7-03 tab, PO, l tablet 16:57: Daily, # Pritesh 34 90 tab, 3 Refill(s), Pharmacy: [facility] [id number] Ketorolac Ketorolac 2019-0 No 60mg Com mon 15mg 15mg 07-28 [facility] 00:00: - [facility] Ketorolac Ketorolac 2019-0 No 60mg Com mon 15mg 15mg 07-28 [facility] 00:00: - [facility] predniSONE 2019-0 Yes 5 mg = 2 Mem oria 2.5 mg oral 5-17 tab, PO, l tablet 14:29: Daily, # [place] 00 60 tab, 3 Refill(s), Pharmacy: [id number] amLODIPine 2019-0 Yes 10 mg = 1 Me moria 10 mg oral 5-17 tab, PO, l tablet 14:19: Daily, # [place] 00 90 tab, 0 Refill(s) clopidogrel 2019-0 Yes 75 mg = 1 M emoria 75 mg oral 5-17 tab, PO, l tablet 14:19: Daily, # [place] 00 30 tab, 0 Refill(s) aspirin 81 2019-0 Yes 81 mg = 1 Me moria mg tablet, 5-17 tab, PO, l enteric 14:19: Daily, # [place] n coated 00 90 tab, 3 Refill(s) Bystolic 20 2018-0 Yes 40 mg = 2 M emoria mg oral 5-17 tab, PO, l tablet 14:19: Bedtime, 0 Iqra nn 00 Refill(s) omeprazole 2019-0 Yes 40 mg = 1 Me moria 40 mg oral 5-17 cap, PO, l delayed 14:19: Daily, # [place] n release 00 30 cap, 0 capsule Refill(s) atorvastati Yes 20 mg = 1 M emoria n 20 mg 5-17 tab, PO, l oral tablet 14:19: Bedtime, # Pritesh 00 30 tab, 0 Refill(s) azilsartan Yes 40 mg = 1 Me moria medoxomil 5-17 tab, PO, l 40 MG Oral 14:19: Daily, 0 Her prince Tablet 00 Refill(s) [Edarbi] nebivolol Yes 40 mg = 2 Mem oria 20 MG Oral 5-17 tab, PO, l Tablet 14:19: Bedtime, 0 Iqra nn [Bystolic] 00 Refill(s) Aspirin 81 Yes 81 mg = 1 Me moria MG Enteric 5-17 tab, PO, l Coated 14:19: Daily, # Pritesh Tablet 00 90 tab, 3 Refill(s) Edarbi 40 Yes 40 mg = 1 Mem oria mg oral 5-17 tab, PO, l tablet 14:19: Daily, 0 Pritesh 00 Refill(s) amLODIPine amLODIPine No 1{table QD amLODIPine Besylate 10 Besylate 10 t} Besylate MG MG 10 MG Sodium Sodium No Sodium Fluoride Fluoride Fluoride Calcium 600 Calcium 600 No 1{table BID Calcium MG MG t_with_ 600 MG meals} Ranitidine Ranitidine No Ranitidine HCl HCl HCl Edarbi 40 Edarbi 40 No 1{table QD Edarbi 40 MG MG t} MG Aspirin 81 Aspirin 81 No 1{capsu QD Aspirin 81 MG MG le} MG Clopidogrel Clopidogrel No 1{table QD Clopidogre Bisulfate Bisulfate t} l 75 MG 75 MG Bisulfate 75 MG Bystolic 20 Bystolic 20 No 2{table QD Bystolic MG MG ts} 20 MG Omeprazole Omeprazole No QD Omeprazole 40 MG 40 MG 40 MG Amoxicillin Amoxicillin No 1{capsu Amoxicilli 500 MG 500 MG le} n 500 MG Atorvastati Atorvastati No 1{table QD Atorvastat n Calcium n Calcium t} in Calcium 10 MG 10 MG 10 MG Potassium Potassium No 1{table QD Potassium 99 MG 99 MG t} 99 MG traMADol-Ac traMADol-Ac No traMADol-A etaminophen etaminophen cetaminoph en Vitamin D3 Vitamin D3 No Vitamin D3 predniSONE predniSONE No 1{table QD predniSONE 20 MG 20 MG t} 20 MG Ciprofloxac Ciprofloxac No Ciprofloxa in in esa Clopidogrel Clopidogrel No 1{table QD Clopidogre Bisulfate Bisulfate t} l 75 MG 75 MG Bisulfate 75 MG Vitamin D3 Vitamin D3 No Vitamin D3 Potassium Potassium No 1{table QD Potassium 99 MG 99 MG t} 99 MG Edarbi 40 Edarbi 40 No 1{table QD Edarbi 40 MG MG t} MG Atorvastati Atorvastati No 1{table QD Atorvastat n Calcium n Calcium t} in Calcium 10 MG 10 MG 10 MG amLODIPine amLODIPine No 1{table QD amLODIPine Besylate 10 Besylate 10 t} Besylate MG MG 10 MG traMADol-Ac traMADol-Ac No traMADol-A etaminophen etaminophen cetaminoph en Sodium Sodium No Sodium Fluoride Fluoride Fluoride Aspirin 81 Aspirin 81 No 1{capsu QD Aspirin 81 MG MG le} MG Calcium 600 Calcium 600 No 1{table BID Calcium MG MG t_with_ 600 MG meals} Omeprazole Omeprazole No QD Omeprazole 40 MG 40 MG 40 MG Amoxicillin Amoxicillin No 1{capsu Amoxicilli 500 MG 500 MG le} n 500 MG Ranitidine Ranitidine No Ranitidine HCl HCl HCl Ciprofloxac Ciprofloxac No Ciprofloxa in in esa Bystolic 20 Bystolic 20 No 2{table QD Bystolic MG MG ts} 20 MG predniSONE predniSONE No 1{table QD predniSONE 20 MG 20 MG t} 20 MG Vital Signs Vital Name Observation Time Observation Value Comments Source height 2022-02-04 14:30:00 70 [in_i] [facility] weight 2022-02-04 14:30:00 204 [lb_av] [facility] temperature 2022-02-04 14:30:00 98.2 [degF] [facility] bmi 2022-02-04 14:30:00 29.27 kg/m2 [facility] oximetry 2022-02-04 14:30:00 99 % [facility] respiratory rate 2022-02-04 14:30:00 18 /min Comm on [facility] blood pressure 2022-02-04 14:30:00 147 mm[Hg] Common [facility] - systolic [facility] blood pressure 2022-02-04 14:30:00 71 mm[Hg] Common [facility] - diastolic [facility] height 2021-12-02 17:45:00 70 [in_i] [facility] weight 2021-12-02 17:45:00 207.4 [lb_av] Common [facility] temperature 2021-12-02 17:45:00 98.4 [degF] Common [facility] bmi 2021-12-02 17:45:00 29.76 kg/m2 [facility] oximetry 2021-12-02 17:45:00 98 % [facility] respiratory rate 2021-12-02 17:45:00 18 /min Comm on [facility] blood pressure 2021-12-02 17:45:00 135 mm[Hg] Common [facility] - systolic [facility] blood pressure 2021-12-02 17:45:00 65 mm[Hg] Common [facility] - diastolic [facility] Systolic (mm Hg) 2022-01-21 20:12:00 John rial Pritesh Diastolic (mm Hg) 2022-01-21 20:12:00 Mem orial Pritesh Heart Rate 2022-01-21 20:12:00 [facility] [place] Systolic (mm Hg) 2021-10-21 14:44:00 John rial Pritesh Diastolic (mm Hg) 2021-10-21 14:44:00 Mem orial Pritesh Heart Rate 2021-10-21 14:44:00 [facility] [place] Respitory Rate 2021-10-21 14:44:00 Memori al [place] Height 2021-10-21 14:44:00 170.18 cm [facility] Prit[facility] Weight 2021-10-21 14:44:00 [facility]rit[facility] BMI Calculated 2021-10-21 14:44:00 Memori al Pritesh Systolic (mm Hg) 2021-07-23 15:00:00 John rial Pritesh Diastolic (mm Hg) 2021-07-23 15:00:00 Mem orial [place] Heart Rate 2021-07-23 15:00:00 [facility] Pritesh Respitory Rate 2021-07-23 15:00:00 Memori al [place] Height 2021-07-23 15:00:00 170.18 cm [facility] [place] Weight 2021-07-23 15:00:00 [facility] [place] BMI Calculated 2021-07-23 15:00:00 Memori al Pritesh Systolic (mm Hg) 2021-06-05 14:28:00 John rial Pritesh Diastolic (mm Hg) 2021-06-05 14:28:00 Mem orial Pritesh Heart Rate 2021-06-05 14:28:00 [facility] Pritesh Respitory Rate 2021-06-05 14:28:00 Memori al [place] Height 2021-06-05 14:28:00 170.18 cm [facility] Pritesh Weight 2021-06-05 14:28:00 [facility] Prit[facility] BMI Calculated 2021-06-05 14:28:00 Memori al Pritesh Systolic (mm Hg) 2021-04-24 16:11:00 John rial [place] Diastolic (mm Hg) 2021-04-24 16:11:00 Mem orial [place] Heart Rate 2021-04-24 16:11:00 [facility] Pritesh Respitory Rate 2021-04-24 16:11:00 Memori al [place] Height 2021-04-24 16:11:00 170.18 cm [facility] [place] Weight 2021-04-24 16:11:00 [facility] Prit[facility] BMI Calculated 2021-04-24 16:11:00 Memori al [place] Systolic (mm Hg) 2021-03-12 16:17:00 John rial [place] Diastolic (mm Hg) 2021-03-12 16:17:00 Mem orial [place] Heart Rate 2021-03-12 16:17:00 [facility] Pritesh Respitory Rate 2021-03-12 16:17:00 Memori al [place] Height 2021-03-12 16:17:00 170.18 cm [facility] Prit[facility] Weight 2021-03-12 16:17:00 [facility] [place] BMI Calculated 2021-03-12 16:17:00 Memori al [place] Systolic (mm Hg) 2021-01-29 17:37:00 John rial [place] Diastolic (mm Hg) 2021-01-29 17:37:00 Mem orial [place] Heart Rate 2021-01-29 17:37:00 [facility] [place] Respitory Rate 2021-01-29 17:37:00 Memori al [place] Height 2021-01-29 17:37:00 172.72 cm [facility] Prit[facility] Weight 2021-01-29 17:37:00 [facility] [place] BMI Calculated 2021-01-29 17:37:00 Memori al Pritesh Systolic (mm Hg) 2020-12-30 15:32:00 John rial [place] Diastolic (mm Hg) 2020-12-30 15:32:00 Mem orial [place] Heart Rate 2020-12-30 15:32:00 [facility] [place] Respitory Rate 2020-12-30 15:32:00 Memori al Pritesh Height 2020-12-30 15:32:00 170.18 cm [facility]rit[facility] Weight 2020-12-30 15:32:00 [facility] [place] BMI Calculated 2020-12-30 15:32:00 Memori al Pritesh Systolic (mm Hg) 2020-10-30 18:07:00 John rial [place] Diastolic (mm Hg) 2020-10-30 18:07:00 Mem orial Pritesh Heart Rate 2020-10-30 18:07:00 [facility] [place] Respitory Rate 2020-10-30 18:07:00 Memori al [place] Height 2020-10-30 18:07:00 170.18 cm [facility] [place] Weight 2020-10-30 18:07:00 [facility]rit[facility] BMI Calculated 2020-10-30 18:07:00 Memori al [place] Systolic (mm Hg) 2020-07-10 15:47:00 John rial [place] Diastolic (mm Hg) 2020-07-10 15:47:00 Mem orial [place] Heart Rate 2020-07-10 15:47:00 [facility] Prit[facility] Respitory Rate 2020-07-10 15:47:00 Memori al Pritesh Weight 2020-07-10 15:47:00 [facility] [place] Systolic (mm Hg) 2020-01-11 16:41:00 John rial [place] Diastolic (mm Hg) 2020-01-11 16:41:00 Mem orial [place] Heart Rate 2020-01-11 16:41:00 [facility] [place] Respitory Rate 2020-01-11 16:41:00 Memori al [place] Height 2020-01-11 16:41:00 172.72 cm [facility] [place] Weight 2020-01-11 16:41:00 [facility] [place] BMI Calculated 2020-01-11 16:41:00 Memori al Pritesh Systolic (mm Hg) 2019-10-11 15:47:00 John rial [place] Diastolic (mm Hg) 2019-10-11 15:47:00 Mem orial Pritesh Heart Rate 2019-10-11 15:47:00 [facility] Prit[facility] Respitory Rate 2019-10-11 15:47:00 Memori al [place] Height 2019-10-11 15:47:00 172.72 cm [facility] [place] Weight 2019-10-11 15:47:00 [facility] [place] BMI Calculated 2019-10-11 15:47:00 Memori al Pritesh Systolic (mm Hg) 2019-07-11 15:38:00 John rial Pritesh Diastolic (mm Hg) 2019-07-11 15:38:00 Mem orial Pritesh Height 2019-07-11 15:38:00 177.8 cm [facility] [place] Weight 2019-07-11 15:38:00 [facility] Prit[facility] BMI Calculated 2019-07-11 15:38:00 Memori al [place] Systolic (mm Hg) 2019-04-12 17:46:00 John rial [place] Diastolic (mm Hg) 2019-04-12 17:46:00 Mem orial Pritesh Heart Rate 2019-04-12 17:46:00 [facility] Prit[facility] Respitory Rate 2019-04-12 17:46:00 Memori al [place] Height 2019-04-12 17:46:00 177.8 cm [facility] [place] Weight 2019-04-12 17:46:00 [facility] BMI Calculated 2019-04-12 17:46:00 Memori al [place] Systolic (mm Hg) 2018-11-10 20:59:00 John rial Pritesh Diastolic (mm Hg) 2018-11-10 20:59:00 Mem orial [place] Heart Rate 2018-11-10 20:59:00 [facility] [place] Respitory Rate 2018-11-10 20:59:00 Memori al Pritesh Height 2018-11-10 20:59:00 177.8 cm [facility] Weight 2018-11-10 20:59:00 [facility] [place] BMI Calculated 2018-11-10 20:59:00 Memori al [place] Weight 2018-09-22 20:53:00 [facility] [place] BMI Calculated 2018-09-22 20:53:00 Memori al [place] Height 2018-09-22 20:53:00 170.18 cm [facility]rit[facility] Heart Rate 2018-09-22 20:53:00 [facility] [place] Respitory Rate 2018-09-22 20:53:00 Memori al [place] Systolic (mm Hg) 2018-09-22 20:53:00 John rial Pritesh Diastolic (mm Hg) 2018-09-22 20:53:00 Mem orial [place] BMI Calculated 2018-08-18 14:07:00 Memori al [place] Weight 2018-08-18 14:07:00 [facility] [place] Height 2018-08-18 14:07:00 177.8 cm [facility] Respitory Rate 2018-08-18 14:07:00 Memori al Pritesh Heart Rate 2018-08-18 14:07:00 [facility] [place] Systolic (mm Hg) 2018-08-18 14:07:00 John rial [place] Diastolic (mm Hg) 2018-08-18 14:07:00 Mem orial [place] Height 2018-07-08 00:59:00 177.8 cm [facility] [place] BMI Calculated 2018-07-08 00:59:00 Memori al [place] Weight 2018-07-08 00:59:00 [facility]rit[facility] Respitory Rate 2018-07-08 00:59:00 Memori al Pritesh Heart Rate 2018-07-08 00:59:00 [facility] Systolic (mm Hg) 2018-07-08 00:59:00 John rial Pritesh Diastolic (mm Hg) 2018-07-08 00:59:00 Mem orial Pritesh Procedures Procedure Date / Time Performed Performing Clinician Day álvarez Cervical discectomy [facility] Plan of Care Planned Activity Planned Date Details Comments Source Instructions [facility] Sports Medicine Encounters Start End Encounter Admission Attending Care Care Encounter Source Date/Time Date/Time Type Type Clinicians Facility Department ID 2021-12-02 Outpatient Nicho, STLMLC STLMLC [id number] Common 17:04:01 Farzad [id number] [facility] 2022-04-21 2022-04-21 Outpatient MHIE MHIE [id number] Memoria 14:15:00 14:15:00 24 l Pritesh 2022-02-04 2022-02-04 OFFICE STLMLC STLMLC [id number] Co mmon 00:00:00 00:00:00 VISIT Spirit ESTAB PT - [facility] LEVEL 5 [facility] 2022-01-21 2022-01-22 Outpatient MHIE MNA [id number] Memoria 20:00:00 05:59:59 Neurology 23 l Sandra [place] 2022-01-21 2022-01-21 Outpatient ESME PetitSCHER MHMISCHER [id number] 14:00:00 23:59:59 Mario 23 Phillip 2022-01-21 2022-01-21 Outpatient MHIE MHIE [id number] Memoria 14:00:00 14:00:00 23 kwaku [place] 2021-12-02 2021-12-02 OFFICE STLMLC STLMLC [id number] Co mmon 00:00:00 00:00:00 VISIT Sigifredo ELIAS PT - [facility] LEVEL 4 [facility] 2021-10-21 2021-10-22 Outpatient nullFlavo MNA [id number] Memoria 14:45:00 04:59:59 r Neurology 22 l [place] 2021-10-21 2021-10-21 Outpatient ESME PetitSCHSONALI MHMISCHER [id number] 09:45:00 23:59:59 Mario 22 Phillip 2021-10-21 2021-10-21 Outpatient MHIE MHIE [id number] Memoria 09:45:00 09:45:00 22 kwaku [place] 2021-10-13 2021-10-13 Outpatient FOG_[place] AOSM AOSM [id number] Brenna 00:00:00 00:00:00 _Agata [id number] Orth ope dic Sports Medicin e 2021-10-13 2021-10-13 Outpatient [place], AOSM AOSM [id number] 00:00:00 00:00:00 Casey Jacqueline [id number] 2021-10-13 2021-10-13 Casey Jacqueline AOSM [place] - Ortho [id number] Brenna 00:00:00 00:00:00 Aleah Barrow MD: [id number] [facility] [place] [address] , Ph. [id number] 2021-07-23 2021-07-24 Outpatient nullFlavo MNA [id number] Memoria 14:45:00 04:59:59 r Neurology 21 l Sandra Jonas 2021-07-23 2021-07-23 Outpatient FRED Petit [id number] 09:45:00 23:59:59 Mario 21 Phillip 2021-07-23 2021-07-23 Outpatient MHIE MAGDA [id number] Memoria 09:45:00 09:45:00 21 l Pritesh 2021-07-18 2021-07-18 Outpatient FOG_[place] AOSM AOSM [id number] Brenna 00:00:00 00:00:00 _Agata [id number] Orth ope dic Sports Medicin e 2021-06-05 2021-06-06 Outpatient nullFlavo MNA [id number] Memoria 14:30:00 04:59:59 r Neurology 20 l Sandra Jonas 2021-06-05 2021-06-05 Outpatient FRED Petit [id number] 09:30:00 23:59:59 Mario 20 Phillip 2021-06-05 2021-06-05 Outpatient MHIE MAGDA [id number] Memoria 09:30:00 09:30:00 20 l Pritesh 2021-04-24 2021-04-25 Outpatient nullFlavo MNA [id number] Memoria 16:15:00 05:59:59 r Neurology 19 l Sandra Jonas 2021-04-24 2021-04-24 Outpatient FRED Petit [id number] 10:15:00 23:59:59 Mario 19 Phillip 2021-04-24 2021-04-24 Outpatient MHIE MHIE [id number] Memoria 10:15:00 10:15:00 19 kwaku Jonas 2021-03-12 2021-03-13 Outpatient nullFlavo MNA [id number] Memoria 16:15:00 05:59:59 r Neurology 18 l Sandra Jonas 2021-03-12 2021-03-12 Outpatient ESME PetitSCHER MHMISCHER [id number] 10:15:00 23:59:59 Mario 18 Phillip 2021-03-12 2021-03-12 Outpatient MHIE MHIE [id number] Memoria 10:15:00 10:15:00 18 kwaku Jonas 2021-01-29 2021-01-30 Outpatient nullFlavo MNA [id number] Memoria 17:30:00 05:59:59 r Neurology 17 l Sandra Agiuleraann 2021-01-29 2021-01-29 Outpatient ESME PetitSCHER MHMISCHER [id number] 11:30:00 23:59:59 Mario 17 Phillip 2021-01-29 2021-01-29 Outpatient MHIE MHIE [id number] Memoria 11:30:00 11:30:00 17 kwaku Jonas 2021-01-12 2021-01-12 Ambulatory nullFlavo MNA [id number] Memoria 15:45:00 15:45:00 Pre-Reg r Neurology 15 l Sandra Aguileraann 2021-01-12 2021-01-12 Outpatient MHIE MHIE [id number] Memoria 09:45:00 09:45:00 15 kwaku Jonas 2021-01-12 2021-01-12 Outpatient ESME PetitSCHER MHMISCHER [id number] 09:45:00 09:45:00 Mario 15 Phillip 2020-12-30 2020-12-31 Outpatient nullFlavo MNA [id number] Memoria 15:30:00 05:59:59 r Neurology 16 kwaku Aguileraann 2020-12-30 2020-12-30 Outpatient ESME PetitSCHER MHMISCHER [id number] 09:30:00 23:59:59 Mario 16 Phillip 2020-12-30 2020-12-30 Outpatient MHIE MHIE [id number] Memoria 09:30:00 09:30:00 16 kwaku Jonas 2020-11-11 2020-11-11 Ambulatory nullFlavo MNA [id number] Memoria 15:00:00 15:00:00 Pre-Reg r Neurology 13 l Sandra Jonas 2020-11-11 2020-11-11 Outpatient MHIE MHIE [id number] Memoria 10:00:00 10:00:00 13 kwaku Jonas 2020-11-11 2020-11-11 Outpatient aDmaso, MHMISCHER MHMISCHER [id number] 10:00:00 10:00:00 Mario 13 Phillip 2020-10-30 2020-10-31 Outpatient nullFlavo MNA [id number] Memoria 18:00:00 04:59:59 r Neurology 14 l Sandra Jonas 2020-10-30 2020-10-30 Outpatient SILVIA PetitMISCHER MHMISCHER [id number] 13:00:00 23:59:59 Mario 14 Phillip 2020-10-30 2020-10-30 Outpatient MHIE MHIE [id number] Memoria 13:00:00 13:00:00 14 kwaku Jonas 2020-07-10 2020-07-11 Outpatient nullFlavo MNA [id number] Memoria 15:30:00 04:59:59 r Neurology 12 kwaku Jonas 2020-07-10 2020-07-10 Outpatient SILVIA PetitMISCHER MHMISCHER [id number] 10:30:00 23:59:59 Mario 12 Phillip 2020-07-10 2020-07-10 Outpatient MHIE MHIE [id number] Memoria 10:30:00 10:30:00 12 kwaku AguileraPritesh 2020-01-11 2020-01-12 Outpatient nullFlavo MNA [id number] Memoria 16:30:00 05:59:59 r Neurology 11 kwaku Flores [place] 2020-01-11 2020-01-11 Outpatient SILVIA PetitMISCHER MHMISCHER [id number] 10:30:00 23:59:59 Mario 11 Phillip 2020-01-11 2020-01-11 Outpatient MHIE MHIE [id number] Memoria 10:30:00 10:30:00 11 l [place] 2019-10-11 2019-10-12 Outpatient nullFlavo MNA [id number] Memoria 15:45:00 04:59:59 r Neurology 10 l Sandra Pritesh 2019-10-11 2019-10-11 Outpatient SILVIA PetitMISCHER MHMISCHER [id number] 10:45:00 23:59:59 Mario 10 Phillip 2019-10-11 2019-10-11 Ambulatory nullFlavo MNA [id number] Memoria 15:45:00 15:45:00 Pre-Reg r Neurology 09 l Sandra Pritesh 2019-10-11 2019-10-11 Outpatient MHIE MHIE [id number] Memoria 10:45:00 10:45:00 09 l [place] 2019-10-11 2019-10-11 Outpatient MHIE MHIE [id number] Memoria 10:45:00 10:45:00 10 l [place] 2019-10-11 2019-10-11 Outpatient SILVIA PetitNYSCHER MHMISCHER [id number] 10:45:00 10:45:00 Mario 09 Phillip 2019-07-11 2019-07-12 Outpatient nullFlavo MNA [id number] Memoria 15:30:00 04:59:59 r Neurology 08 l Sandra [place] 2019-07-11 2019-07-11 Outpatient ESME PetitSCHER MHMISCHER [id number] 10:30:00 23:59:59 Mario 08 Phillip 2019-07-11 2019-07-11 Outpatient MHIE MHIE [id number] Memoria 10:30:00 10:30:00 08 kwaku [place] 2019-04-12 2019-04-13 Outpatient nullFlavo MNA [id number] Memoria 17:45:00 05:59:59 r Neurology 07 l Sandra Pritehs 2019-04-12 2019-04-12 Outpatient SILVIA PetitMISCHER MHMISCHER [id number] 11:45:00 23:59:59 Mario 07 Phillip 2019-04-12 2019-04-12 Ambulatory nullFlavo MNA [id number] Memoria 16:45:00 16:45:00 Pre-Reg r Neurology 06 l [place] 2019-04-12 2019-04-12 Outpatient MHIE MHIE [id number] Memoria 11:45:00 11:45:00 07 kwaku Pritesh 2019-04-12 2019-04-12 Outpatient Damaso MHMISCHER MHMISCHER [id number] 10:45:00 10:45:00 Mario 06 Phillip 2019-03-07 2019-03-07 Outpatient MHIE MHIE [id number] Memoria 11:00:00 11:00:00 06 kwaku Pritesh 2018-12-22 2018-12-22 Ambulatory nullFlavo MNA [id number] Memoria 20:45:00 20:45:00 Pre-Reg r Neurology 05 kwaku [place] Pritesh 2018-12-22 2018-12-22 Outpatient MHIE MHIE [id number] Memoria 15:45:00 15:45:00 05 kwaku Pritesh 2018-12-22 2018-12-22 Outpatient SILVIA PetitMISCHER MHMISCHER [id number] 15:45:00 15:45:00 Mario 05 Phillip 2018-11-10 2018-11-11 Outpatient nullFlavo MNA [id number] Memoria 21:00:00 04:59:59 r Neurology 04 kwaku [place] Pritesh 2018-11-10 2018-11-10 Outpatient SILVIA PetitMISCHER MHMISCHER [id number] 16:00:00 23:59:59 Mario 04 Phillip 2018-11-10 2018-11-10 Outpatient MHIE MHIE [id number] Memoria 16:00:00 16:00:00 04 kwaku Jonas 2018-11-03 2018-11-03 Ambulatory nullFlavo MNA [id number] Memoria 20:00:00 20:00:00 Pre-Reg r Neurology 03 kwaku [place] Pritesh 2018-11-03 2018-11-03 Outpatient MHIE MHIE [id number] Memoria 15:00:00 15:00:00 03 kwaku Jonas 2018-11-03 2018-11-03 Outpatient SILVIA PetitMISCHER MHMISCHER [id number] 15:00:00 15:00:00 Mario 03 Phillip 2018-09-22 2018-09-23 Outpatient nullFlavo MNA [id number] Memoria 20:45:00 04:59:59 r Neurology 02 kwaku Jonas 2018-09-22 2018-09-22 Outpatient DamasoESMESCHER MHMISCHER [id number] 15:45:00 23:59:59 Mario 02 Phillip 2018-09-22 2018-09-22 Outpatient MHIE MHIE [id number] Memoria 15:45:00 15:45:00 02 kwaku Jonas 2018-08-18 2018-08-19 Outpatient nullFlavo MNA [id number] Memoria 14:00:00 04:59:59 r Neurology 01 kwaku Jonas 2018-08-18 2018-08-18 Outpatient AlonzomerrySILVIAMISCHER MHMISCHER [id number] 09:00:00 23:59:59 Mario [place] 2018-08-18 2018-08-18 Outpatient MHIE MHIE [id number] Memoria 09:00:00 09:00:00 01 kwaku Jonas 2018-07-07 2018-07-08 Outpatient nullFlavo MNA [id number] Memoria 14:00:00 04:59:59 r Neurology 00 kwaku Jonas 2018-07-07 2018-07-07 Outpatient ESME PetitSCHER MHMISCHER [id number] 09:00:00 23:59:59 Mario 00 Phillip 2018-07-07 2018-07-07 Outpatient MHIE MHIE [id number] Memoria 09:00:00 09:00:00 00 kwaku Jonas Results This patient has no known results.
[2022-03-03 04:03] LABS: Urine Blood 3+ (Negative); Urine Glucose Negative (Negative); Urine Protein 2+ (Negative); Urine pH 5.5 (5.0-7.0)
[2022-03-03 04:20] LABS: Urine Bacteria None Seen /HPF (<20); Urine Mucus Slight /HPF (None Seen); Urine RBC >50 /HPF (None Seen)
--- NOTE | 2022-03-03 04:31 | EDPHYS ---
Physician Documentation [facility] Name: Sam Perdomo Jr Age: 66 yrs Sex: Male : 1955 Arrival Date: 03/03/2022 Time: 02:48 Bed 18 Private MD: ED Physician Archie Mathew HPI: 03/03 03:50 This 66 yrs old Male presents to ER via Ambulatory with complaints of Post Surgical rt Pain, Urinary Retention. 03:50 The patient presents with Romie retention. Onset: The symptoms/episode began/occurred 4 rt hour(s) ago. Modifying factors: The symptoms are alleviated by nothing, the symptoms are aggravated by nothing. Associated signs and symptoms: The patient has no apparent associated signs or symptoms. Severity of symptoms: At their worst the symptoms were moderate. Patient had a UroLift procedure performed yesterday, the patient states that since about 10 PM, he has not been able to urinate. He denies any hematuria. He reports a suprapubic discomfort but no overt pain. He denies other acute complaints at this time. Symptoms are moderate severity, no other aggravating leaving factors. The patient to call his physician who recommended that he come to the ED for further evaluation.. Historical: - Allergies: 03:04 Demerol; vc1 03:04 deoxepin; vc1 03:04 diclofenac sodium; vc1 03:04 Dilaudid; vc1 03:04 Doxycycline; vc1 03:04 Iodine; vc1 03:04 kapidex; vc1 03:04 Levofloxacin; vc1 03:04 Lunesta; vc1 03:04 meperidine; vc1 03:04 SHELLFISH; vc1 03:04 TAMSULOSIN; vc1 - PMHx: 03:04 Myocardial infarction; vc1 - PSHx: 03:04 urobladder lift; vc1 - Immunization history:: Adult Immunizations up to date, Client reports receiving the 2nd dose of the Covid vaccine. - Social history:: Smoking status: Patient denies any tobacco usage or history of. - Family history:: not pertinent. ROS: 03:50 Constitutional: Negative for fever, chills, and weight loss, Cardiovascular: Negative rt for chest pain, palpitations, and edema, Respiratory: Negative for shortness of breath, cough, wheezing, and pleuritic chest pain, Abdomen/GI: Negative for abdominal pain, nausea, vomiting, diarrhea, and constipation, MS/Extremity: Negative for injury and deformity, Skin: Negative for injury, rash, and discoloration, Neuro: Negative for headache, weakness, numbness, tingling, and seizure, Psych: Negative for depression, anxiety, suicide ideation, homicidal ideation, and hallucinations. 03:50 : Positive for urinary retention, Negative for foul smelling urine. Exam: 03:50 Constitutional: This is a well developed, well nourished patient who is awake, alert, rt and in no acute distress. Head/Face: Normocephalic, atraumatic. Eyes: Pupils equal round and reactive to light, extra-ocular motions intact. Lids and lashes normal. Conjunctiva and sclera are non-icteric and not injected. Cornea within normal limits. Periorbital areas with no swelling, redness, or edema. ENT: Nares patent. No nasal discharge, no septal abnormalities noted. Tympanic membranes are normal and external auditory canals are clear. Oropharynx with no redness, swelling, or masses, exudates, or evidence of obstruction, uvula midline. Mucous membranes moist. Neck: Trachea midline, no thyromegaly or masses palpated, and no cervical lymphadenopathy. Supple, full range of motion without nuchal rigidity, or vertebral point tenderness. No Meningismus. Chest/axilla: Normal chest wall appearance and motion. Nontender with no deformity. No lesions are appreciated. Cardiovascular: Regular rate and rhythm with a normal S1 and S2. No gallops, murmurs, or rubs. Normal PMI, no JVD. No pulse deficits. Respiratory: Lungs have equal breath sounds bilaterally, clear to auscultation and percussion. No rales, rhonchi or wheezes noted. No increased work of breathing, no retractions or nasal flaring. Skin: Warm, dry with normal turgor. Normal color with no rashes, no lesions, and no evidence of cellulitis. MS/ Extremity: Pulses equal, no cyanosis. Neurovascular intact. Full, normal range of motion. Neuro: Awake and alert, GCS 15, oriented to person, place, time, and situation. Cranial nerves II-XII grossly intact. Motor strength 5/5 in all extremities. Sensory grossly intact. Cerebellar exam normal. Normal gait. Psych: Awake, alert, with orientation to person, place and time. Behavior, mood, and affect are within normal limits. 03:50 Abdomen/GI: fullness to the Suprapubic region without guarding, rebound, distention, no focal tenderness. Vital Signs: 03:03 BP 158 / 77; Pulse 57; Resp 16; Temp 97.8(O); Pulse Ox 95% ; Weight 94.35 kg; Height 5 vc1 ft. 10 in. (177.80 cm); Pain 0/10; 04:06 BP 138 / 61; Pulse 57; Resp 20; Pulse Ox 97% ; Pain 0/10; jj7 04:44 BP 142 / 72; Pulse 63; Resp 18; Pulse Ox 97% ; Pain 0/10; jj7 03:03 Body Mass Index 29.84 (94.35 kg, 177.80 cm) vc1 MDM: 03:00 Patient medically screened. rt 05:44 Differential diagnosis: Urinary retention, hematuria, UTI. Data reviewed: vital signs, rt nurses notes, lab test result(s). Test considered but Not performed:. Response to treatment: the patient's symptoms have resolved after treatment. 03/03 02:59 Order name: UA MICROSCOPIC; Complete Time: 04:23 rt 03/03 04:03 Order name: Urine Dipstick-Ancillary; Complete Time: 04:16 EDMS 03/03 02:59 Order name: Guardado; Complete Time: 03:48 rt 03/03 02:59 Order name: Urine Dipstick-Ancillary (obtain specimen) rt 03/03 04:31 Order name: Urine Culture rt Administered Medications: No medications were administered Disposition Summary: 03/03/22 04:30 Discharge Ordered Location: Home rt Problem: new rt Symptoms: are resolved rt Condition: Stable rt Diagnosis - Urinary Retention rt Followup: rt - With: Lenny Willingham MD - When: Today - Reason: Discharge Instructions: - Discharge Summary Sheet rt - Acute Urinary Retention, Male rt Forms: - Medication Reconciliation Form rt - Thank You Letter rt - Antibiotic Education rt - Prescription Opioid Use rt Signatures: Dispatcher [employer] EDMS Emma Campbell RN RN vc1 Archie Mathew MD MD rt Corrections: (The following items were deleted from the chart) 06:09 06:07 Performed priapism drainage, aspiration, injection. Sterile technique used, skin rt cleansed with chlorhexidine. Dorsal nerve block was performed. About 60 cc of blood was aspirated from the cavernosum, dark blood. 500 mcg of phenylephrine were injected with detumescence.. rt
--- NOTE | 2022-03-03 04:31 | ER ---
Nurse's Notes [facility] Name: Sam Perdomo Jr Age: 66 yrs Sex: Male : 1955 Arrival Date: 03/03/2022 Time: 02:48 Bed 18 Private MD: Diagnosis: Urinary Retention Presentation: 03/03 03:03 Chief complaint: Patient states: "I had a urolift yesterday and now I can't pee.". vc1 Coronavirus screen: Vaccine status: Patient reports receiving the 2nd dose of the covid vaccine. Plus 2 boosters; [employer] At this time, the client does not indicate any symptoms associated with coronavirus-19. Ebola Screen: No symptoms or risks identified at this time. Initial Sepsis Screen: Does the patient meet any 2 criteria? No. Patient's initial sepsis screen is negative. Does the patient have a suspected source of infection? No. Patient's initial sepsis screen is negative. Risk Assessment: Do you want to hurt yourself or someone else? Patient reports no desire to harm self or others. Onset of symptoms was March 02, 2022 at 22:30. 03:03 Method Of Arrival: Ambulatory vc1 03:03 Acuity: MELODY 4 vc1 Triage Assessment: 03:06 General: Appears in no apparent distress. uncomfortable, Behavior is calm, cooperative, vc1 appropriate for age. Pain: Denies pain. EENT: No deficits noted. No signs and/or symptoms were reported regarding the EENT system. Neuro: No deficits noted. Cardiovascular: No deficits noted. Respiratory: Airway is patent Respiratory effort is even, unlabored, Respiratory pattern is regular, symmetrical. GI: No deficits noted. : Reports inability to void, since ten thirty- eleven last night. Derm: No deficits noted. No signs and/or symptoms reported regarding the dermatologic system. Musculoskeletal: No deficits noted. No signs and/or symptoms reported regarding the musculoskeletal system. Historical: - Allergies: 03:04 Demerol; vc1 03:04 deoxepin; vc1 03:04 diclofenac sodium; vc1 03:04 Dilaudid; vc1 03:04 Doxycycline; vc1 03:04 Iodine; vc1 03:04 kapidex; vc1 03:04 Levofloxacin; vc1 03:04 Lunesta; vc1 03:04 meperidine; vc1 03:04 SHELLFISH; vc1 03:04 TAMSULOSIN; vc1 - PMHx: 03:04 Myocardial infarction; vc1 - PSHx: 03:04 urobladder lift; vc1 - Immunization history:: Adult Immunizations up to date, Client reports receiving the 2nd dose of the Covid vaccine. - Social history:: Smoking status: Patient denies any tobacco usage or history of. - Family history:: not pertinent. Screenin:07 Abuse screen: Denies threats or abuse. Nutritional screening: No deficits noted. vc1 Tuberculosis screening: No symptoms or risk factors identified. 03:27 [facility] ED Fall Risk Assessment (Adult) History of falling in the last 3 months, jj7 including since admission No falls in past 3 months (0 pts) Confusion or Disorientation No (0 pts) Intoxicated or Sedated No (0 pts) Impaired Gait No (0 pts) Mobility Assist Device Used No (0 pt) Altered Elimination No (0 pt) Score/Fall Risk Level 0 - 2 = Low Risk Oriented to surroundings. Assessment: 03:27 General: Appears uncomfortable, Behavior is calm, cooperative, appropriate for age. jj7 Pain: Complains of pain in suprapubic area, right lower quadrant and left lower quadrant. : Reports URINARY RETENTION. 04:40 Reassessment: LEG BACK ATTACHED TO RM. PT TOLERATED WELL. jj7 Vital Signs: 03:03 BP 158 / 77; Pulse 57; Resp 16; Temp 97.8(O); Pulse Ox 95% ; Weight 94.35 kg; Height 5 vc1 ft. 10 in. (177.80 cm); Pain 0/10; 04:06 BP 138 / 61; Pulse 57; Resp 20; Pulse Ox 97% ; Pain 0/10; jj7 04:44 BP 142 / 72; Pulse 63; Resp 18; Pulse Ox 97% ; Pain 0/10; jj7 03:03 Body Mass Index 29.84 (94.35 kg, 177.80 cm) vc1 ED Course: 02:48 Patient arrived in ED. jj6 02:54 Archie Mathew MD is Attending Physician. rt 03:02 Deepti Barnett RN is Primary Nurse. jj7 03:04 Triage completed. vc1 03:07 Patient has correct armband on for positive identification. Bed in low position. Call vc1 light in reach. Pulse ox on. NIBP on. 03:27 No provider procedures requiring assistance completed. Patient did not have IV access jj7 during this emergency room visit. 03:43 Urine collected: Rm catheter specimen, clear, reid colored, Amount Returned: 500mL. jj7 04:29 Lenny Willingham MD is Referral Physician. rt Administered Medications: No medications were administered Medication: 03:07 VIS not applicable for this client. vc1 Outcome: 04:30 Discharge ordered by MD. rt 04:45 Discharged to home ambulatory. jj7 04:45 Condition: improved 04:45 Discharge instructions given to patient, Instructed on discharge instructions, follow up and referral plans. Demonstrated understanding of instructions, follow-up care. 05:08 Patient left the ED. jj7 Signatures: Crys Wells jj6 Emma Campbell, MARCELINO RN vc1 Deepti Barnett RN RN jj7 Archie Mathew MD MD rt
[2022-03-03 05:23] VITALS: TEMP 97.8
[2022-03-03 05:24] VITALS: O2SAT 97
[2022-03-03 05:25] VITALS: BP 142/72
== END 2022-03-03 05:08 | disposition home or self-care (01) ==
LOC: ER 02:43
DX: R33.9 Retention of urine, unspecified (principal); Z98.890 Other specified postprocedural states; Z88.1 Allergy status to other antibiotic agents; Z88.3 Allergy status to other anti-infective agents; Z88.5 Allergy status to narcotic agent; Z88.8 Allergy status to other drugs, medicaments and biological substances; Z91.013 Allergy to seafood
CPT/HCPCS: 81003; 81015; 87086; 87088; 99283

== ENCOUNTER 2022-07-07 12:00 | Day surgery (SDC) | payer MEDICARE ==
[2022-07-02 14:03] LABS: Absolute Lymphocytes (CBC) 2.7 K/uL (0.7-4.9); Hematocrit 42.7 % (39.6-49.0); Lymphocytes % 28.5 % (15.3-44.8); MCV 93.1 fL (80-100); MPV 9.6 fL (7.6-11.3); RBC Red Blood Cell Count 4.59 M/uL (4.33-5.43)
[2022-07-02 14:06] LABS: Protime INR 0.92
[2022-07-02 14:18] LABS: Potassium 4.4 mEq/L (3.5-5.1)
--- NOTE | 2022-07-02 14:26 | RAD REPORT ---
EXAM DESCRIPTION: RAD - Chest Pa And Lat (2 Views) - 07/02/2022 2:09 pm CLINICAL HISTORY: pre op for cardiac catheterization technologist Chest pain. COMPARISON: Chest Pa And Lat (2 Views) dated 10/21/2021; Chest Single View dated 01/14/2021; Chest Si ngle View dated 12/02/2019; Chest Pa And Lat (2 Views) dated 05/29/2018 TECHNIQUE: PA and lateral views of the chest were obtained. FINDINGS: The lungs are hyperexpanded compatible with COPD. The heart is upper limit of normal in si ze. No fracture or aggressive bony process. IMPRESSION: COPD without acute process identified. The USPSTF recommends annual screening for lung cancer with low-dose CT (LDCT) in adults aged 50 to 80 years who have a 20 pack-year smoking history and currently smoke or have quit within the past 15 years.
--- NOTE | 2022-07-05 11:47 | EKG ---
Test Date: 2022-07-02 Test Time: 13:44:17 Cryptographer: NARDA MEASUREMENT RESULTS: Intervals: Rate: 53 CA: 136 QRSD: 94 QT: 476 QTc: 446 Williamson: P: 35 CA: 136 QRS: 60 T: 79 INTERPRETIVE STATEMENTS: Sinus bradycardia Otherwise normal ECG Compared to ECG 12/02/2019 08:29:58 No significant changes Electronically Signed On 07-05-22 11:41:55 CDT by Fidel Coello
[2022-07-07] MEDS ORDERED: NA CHLORIDE 0.9% 500 ML ONE (12:08)
[2022-07-07] MEDS ORDERED: LIDOCAINE 1% 20 ML MDV ONE (12:40)
[2022-07-07] MEDS ORDERED: VERAPAMIL HCL 10 MG/4 ML VIAL IV ONE (12:42)
[2022-07-07] MEDS ORDERED: FENTANYL CITR 100 MCG/2 ML ONE (12:42)
[2022-07-07] MEDS ORDERED: CLOPIDOGREL 75 MG TABLET ONE (12:42)
[2022-07-07] MEDS ORDERED: HEPARIN 5000 UNIT/ML 1 ML VIAL ONE (12:42)
[2022-07-07] MEDS ORDERED: MIDAZOLAM HCL 2 MG/2 ML INJ ONE (12:42)
[2022-07-07] MEDS ORDERED: TICAGRELOR 90 MG TABLET PO ONE (12:43)
[2022-07-07] MEDS ORDERED: HEPARIN 10,000 UNIT/10 ML VIAL IV ONE (12:43)
[2022-07-07] MEDS ORDERED: ASPIRIN 325 MG TAB ONE (12:43)
[2022-07-07] MEDS ORDERED: NITROGLYCERIN 100 MCG/ML SYR (for cath lab use only) IV ONE (12:43)
[2022-07-07] MEDS ORDERED: NITROGLYCERIN/D5W 25 MG/250 ML BTL IV ONE (12:43)
[2022-07-07] MEDS ORDERED: ATROPINE SULF 1 MG/10 ML SYR IV ONE (12:43)
[2022-07-07] MEDS ORDERED: METHYLPREDNISOLONE 125 MG INJ ONE (13:00)
[2022-07-07] MEDS ORDERED: DIPHENHYDRAMINE 50 MG/ML VIAL ONE (13:00)
--- NOTE | 2022-07-07 15:40 | OP ---
Date of Procedure: 07/07/2022 Surgeon: FROILAN VALADEZ Procedures Performed: 1.Selective coronary angiogram. 2.Left heart catheterization. 3.PCI of severe mid left circumflex stenosis. I used proximal to distal 3.5 x 60 mm and then overla pped with 3.0 x 12 mm Synergy drug-eluting stents. Indication: Unstable angina. Access: Right radial artery 6-Fijian closed with TR band. Complications: None. Bleeding: Less than 20 mL. Anesthesia: Total sedation time was 1 hour. Description Of Procedure: After risks, benefits, alternatives were explained, the patient agreed to procedure and signed informed consent. The patient was brought into cardiac catheterization laborato , prepped and draped in the usual sterile fashion. Then, I accessed right radial artery using pedi atric micropuncture kit and placed a 6-Fijian Slender sheath and then I took a 5-Fijian [place] 4.0 cat heter into the aortic root, engaged left main and then right coronary artery and took standard views, and the catheter was pushed over the wire into the LV, measured LVEDP and pullback did not record an y gradient. Then, I gave systemic heparin to assure ACT level above 250 and took a 6-Fijian XB left guide over a J-wire into the aortic root, engaged left main, took a Run-Through wire into left circum flex passing the area of stenosis, and then the area was pre-dilated using a balloon; rodriguez toby, would not go through and the NC balloon and then tried to deliver stent, it would not go, so I tried to put a GuideLiner and also would not go, so put another Run-Through wire in the art jorge and the stent went through after that and was placed. There was an area of edge dissection at th e end, so I placed another 3.0 x 12 mm stent. The proximal 1 was 3.5 x 60 mm stent. Overlap was pos t dilated and the final results were satisfactory. Wire was removed, guide was removed, and sheath w as removed, placed TR band with good hemostasis. Findings: 1.Left main is very short and normal. 2.LAD; proximal to mid LAD stent with mild 20% to 30% iSR and then LAD in the mid segment is diffuse ly diseased about 60% and then mid to distal, there is focal 80% to 90% stenosis and very distal 30% stenosis. 3.Left circumflex; very large and dominant artery with mid 90% stenosis, status post successful PCI as above and the OM1 branch has proximal 50% stenosis. The LAD and left circumflex giving collateral s to the totally occluded RCA. 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 5.LVEDP is 20 mmHg, which is elevated. Conclusion: Severe multivessel disease, status post successful PCI of the left circumflex. Plan: 1.Continue aspirin, Plavix, and statin. 2.Plan for PCI with shock wave of mid to distal LAD at [place]. SR/MODL Voice ID: [id number] Report ID: [id number]
[2022-07-07 16:22] VITALS: BP 129/66; O2SAT 98
== END 2022-07-07 17:11 | disposition home or self-care (01) ==
LOC: CCL 12:00
PROVIDERS: ATTEND Internal Medicine
DX: I25.110 Atherosclerotic heart disease of native coronary artery with unstable angina pectoris (principal); I25.82 Chronic total occlusion of coronary artery; T82.855A Stenosis of coronary artery stent, initial encounter; I10 Essential (primary) hypertension; I65.22 Occlusion and stenosis of left carotid artery; E78.2 Mixed hyperlipidemia; E11.9 Type 2 diabetes mellitus without complications; J44.1 Chronic obstructive pulmonary disease with (acute) exacerbation; M31.6 Other giant cell arteritis; Z79.82 Long term (current) use of aspirin; Z79.899 Other long term (current) drug therapy; Z91.041 Radiographic dye allergy status
CPT/HCPCS: 93005; 85025; 80048; 36415; 85610; 85347 ×2; 85730; 71046; 93458; 76937; C1893; C1725; C9600; J1644; J2001; J1200; J3010; J2930; J7040; J0461; J2250

== ENCOUNTER 2022-09-26 20:09 | Emergency (ER) | payer MEDICARE, OTHER ==
--- OUTSIDE RECORDS SUMMARY | 2022-09-26 20:21 | XMS REPORT | Continuity of Care Document ---
:1955 Author Organization [facility] t Address [address] [place] [address] Care Team Providers Name Role Phone Albino Torre Attending Clinician Unavailable Mario Petit Attending Clinician Ludin Mccurdy Attending Clinician Unavailable Anthony Loaiza Attending Clinician Unavailable Agustín Attending Clinician Unavailable Casey Barrow Attending Clinician [phone] Ludin Mccurdy Admitting Clinician Unavailable Anthony Loaiza Admitting Clinician Unavailable Albino Torre Admitting Clinician Unavailable Agustín Admitting Clinician Unavailable Payers Payer Name Policy Type Policy Number Effective Date Expiration Date S josef AAR Medicare 53 [id number] [facility] - MEDICARE [id number] COMPLETE (MEDICARE REPLACEMENT HMO) Problems Condition Condition [...] Sports Medicin e Nontraumat Nontraumat Problem Active Jacqueline joy ic rupture ic Rupture 3-08 Or thope of long of Long 00:00: dic head of Head of 00 Sports biceps Biceps Medicin brachii Brachii e tendon of Tendon of left Left shoulder Shoulder Sprain of Sprain of Problem Active Kennedi rodríguez left Left 3-08 Orthope rotator Rotator 00:00: dic cuff Cuff 00 Sports capsule Capsule Medicin e 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 23:03:55 l s s Pritesh (disorder) (disorder) Active Problem 08/28/2022 [facility] [place] Hypertensi Hypertens Problem Active 2022-08-28 Memoria ve cj 23:03:55 l disorder, disorder, Herm nika systemic systemic arterial arterial (disorder) (disorder) Active Problem 08/28/2022 [facility] Hyperlipid Hyperlipi Problem Active 2022-08-28 Memoria emia demia 23:03:55 l (disorder) (disorder) Sixto rmann Active Problem 08/28/2022 [facility] Shoulder Shoulder Problem Active 2022-08-28 Memoria pain pain 23:03:55 l (finding) (finding) Willy maher Active Problem 08/28/2022 [facility] 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 23:03:55 l (disorder) (disorder) Sixto rmann Active Problem 08/28/2022 [facility] [id number] Gastroesop Problem Co mmon hageal [facility], [facility] [id number] Diverticul Problem Co mmon ar disease [facility] [id number] Dyslipidem Problem Co mmon ia [facility] [id number] Incomplete Problem Co mmon emptying Spirit of bladder [facility] [id number] BPH loc w Problem Com mon urin Spirit obs/LUTS - [facility] [id number] Essential Problem Comm on hypertensi Spirit on [facility] [id number] History of Problem Co mmon coronary Spirit artery - [facility] disease [facility] [id number] History of Problem Co mmon arteritis Spirit - [facility] [id number] Lower Problem Common urinary Spirit tract - [facility] symptoms (LUTS) [facility] [id number] Primary Problem Commo n testicular Spirit failure - [facility] [id number] ED Problem Common (erectile Spirit dysfunctio - [facility] n) of [facility] Allergies, Adverse Reactions, Alerts Allergy Allergy Status Severity Reaction(s) Onset Inactive Treating Comm ents Source Name Type Date Date Clinician iodine DA Active CA FLUSH, FEEL [facility] HOT 07-27 Clear 00:00: Powell [facility] doxycycl DA Active CA CRAMPS [facility] ine 07-27 Clear 00:00: [facility] diclofen DA Active U DIARRHEA [facility] ac 07-27 Clear 00:00: [facility] doxepin DA Active MO AFFECTS [facility] MEMORY, 07-27 Clear INSOMNIA 00:00: [facility] meperidi DA Active U UNKNOWN [facility] ne 07-27 Clear 00:00: [facility] hydromor DA Active SV THROAT [facility] phone SWELLS 07-27 Clear 00:00: [facility] tamsulos DA Active MO ABNORMAL [facility] in EJACULATION, 07-27 Vicenta r FLU 00:00: Powell SYMPTOMS, [address] [facility] levoflox DA Active U UNKNOWN [facility] acin 07-27 Clear 00:00: Powell [facility] eszopicl DA Active U UNKNOWN [facility] one 07-27 Clear 00:00: Powell [facility] dexlanso DA Active U UNKOWN [facility] prazole 07-27 Clear 00:00: [facility] oyster DA Active MO ITCHING [facility] extract 07-27 Clear 00:00: Powell [facility] crab FA Active MO ITCHING, [facility] CHILLS 07-27 Clear 00:00: Powell [facility] hydromor DA Active SV THROAT [facility] phone SWELLS 07-23 Clear 00:00: Powell [facility] tamsulos DA Active MO ABNORMAL [facility] in EJACULATION, 07-23 Vicenta r FLU 00:00: Powell SYMPTOMS, [address] [facility] levoflox DA Active U UNKNOWN [facility] acin 07-23 Clear 00:00: Powell [facility] eszopicl DA Active U UNKNOWN [facility]CA one 07-23 Clear 00:00: Powell [facility] dexlanso DA Active U UNKOWN [facility] prazole 07-23 Clear 00:00: Powell [facility] oyster DA Active MO ITCHING HCA extract 07-23 Clear 00:00: Powell [facility] crab FA Active MO ITCHING, [facility] CHILLS 07-23 Clear 00:00: Powell 00 [facility] CRAWFISH DA Active SV THROAT [facility] SWELLS 07-23 Clear 00:00: Powell [facility] iodine DA Active CA FLUSH, FEEL [facility] HOT 07-23 Clear 00:00: Powell 00 [facility] doxycycl DA Active CA CRAMPS [facility] ine 07-23 Clear 00:00: Powell [facility] diclofen DA Active U DIARRHEA [facility] ac 07-23 Clear 00:00: Powell [facility] doxepin DA Active MO AFFECTS [facility] MEMORY, 07-23 Clear INSOMNIA 00:00: Powell [facility] meperidi DA Active U UNKNOWN [facility] ne 07-23 Clear 00:00: Powell [facility] levoflox levoflox Active Unknown Commo n acin acin [facility] doxycycl doxycycl Active Unknown Commo n ine ine [facility] diclofen diclofen Active Unknown Commo n ac ac [facility] dexlanso dexlanso Active Unknown Commo n prazole prazole [facility] Shellfis Shellfis Active Unknown Commo n h h [facility] meperidi meperidi Active Unknown Commo n ne ne [facility] [id number] Drug Active Unknown Common allergy [facility] Doxepin Doxepin Active Unknown Common [facility] hydromor hydromor Active Unknown Commo n phone phone [facility] eszopicl eszopicl Active Unknown Commo n one one [facility] 463 Drug Active Unknown Common allergy [facility] diclofen diclofen Active Memori a ac ac l [place] Dilaudid Dilaudid Active Memori a l [place] Demerol Demerol Active Memoria l Pritesh Lunesta Lunesta Active Memoria l [place] iodine iodine Active Memoria l [place] Kapidex Kapidex Active Memoria l [place] levoFLOX levoFLOX Active Memori a acin acin l Pritesh Meperidi Meperidi Active Memori a ne ne l HCl-Prom HCl-Prom [place] ethazine ethazine HCl HCl Social History Social Habit Start Date Stop Date Quantity Comments Source History of Tobacco Use Co mmon [facility] Sex Assigned At Com mon [facility] Smoking Status Start Date Stop Date Source Tobacco smoking status [facility] Medications Ordered Filled Start Stop Current Ordering Indication Dosage Frequency Signature Comments Components Source Medication Medication Date Date Medication? 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, Weight predniSONE 2022-0 Yes 3 mg = 3 Mem oria 1 mg oral 3-01 tab, PO, l tablet 16:59: Daily, # Pritesh 00 90 tab, 3 Refill(s), Pharmacy: [facility] #[id number], 170.18, cm, 04/21/22 10:43: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, Height, 89.716, kg, 04/21/22 10:43: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, Weight predniSONE 2023-0 Yes 3 mg = 3 Mem oria 1 mg oral 3-01 tab, PO, l tablet 16:59: Daily, # [place] 00 90 tab, 3 Refill(s), Pharmacy: [facility] #[id number], 170.18, cm, 04/21/22 10:43: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, Height, 89.716, kg, 04/21/22 10:43: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, Weight predniSONE 3-0 Yes 3 mg = 3 Mem oria 1 mg oral 3-01 tab, PO, l tablet 16:59: Daily, # Pritesh 00 90 tab, 3 Refill(s), Pharmacy: [facility] #[id number], 170.18, cm, 04/21/22 10:43: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, Height, 89.716, kg, 04/21/22 10:43: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, Weight predniSONE 3-0 Yes 3 mg = 3 Mem oria 1 mg oral 3-01 tab, PO, l tablet 16:59: Daily, # Pritesh 00 90 tab, 3 Refill(s), Pharmacy: [facility] #[id number], 170.18, cm, 04/21/22 10:43: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, Height, 89.716, kg, 04/21/22 10:43: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, Weight Viagra 100 Viagra 100 2021-02- No QD Viagra 100 MG MG 2-15 07-13 MG 00:00: 00:00 00 :00 Viagra 100 Viagra 100 2021-02- No QD Viagra 100 MG MG 2-15 07-13 MG 00:00: 00:00 00 :00 Viagra 100 Viagra 100 2021-02- No QD Viagra 100 MG MG 2-15 07-13 MG 00:00: 00:00 00 :00 predniSONE 2021-02 Yes See Memoria 1 mg oral 2-01 Instructio l tablet 21:17: ns, 4 tab [place] 00 PO Daily, # 120 tab, 3 Refill(s), Pharmacy: [facility] #[id number], 170.18, cm, 10/21/21 9:53:00 CDT, Height, 95, kg, 10/21/21 9:53:00 CDT, Weight predniSONE 2021-02 Yes See Memoria 1 mg oral 2-01 Instructio l tablet 21:17: ns, 4 tab [place] 00 PO Daily, # 120 tab, 3 Refill(s), Pharmacy: [facility] #[id number], 170.18, cm, 10/21/21 9:53:00 CDT, Height, 95, kg, 10/21/21 9:53:00 CDT, Weight predniSONE 2021-02 Yes See Memoria 1 mg oral 2-01 Instructio l tablet 21:17: ns, 4 tab [place] 00 PO Daily, # 120 tab, 3 Refill(s), Pharmacy: [facility] #[id number], 170.18, cm, 10/21/21 9:53:00 CDT, Height, 95, kg, 10/21/21 9:53:00 CDT, Weight predniSONE 2021-02 Yes See Memoria 1 mg oral 2-01 Instructio l tablet 21:17: ns, 4 tab [place] 00 PO Daily, # 120 tab, 3 Refill(s), Pharmacy: [facility] #[id number], 170.18, cm, 10/21/21 9:53:00 CDT, Height, 95, kg, 10/21/21 9:53:00 CDT, Weight predniSONE 2021-02 Yes See Memoria 1 mg oral 2-01 Instructio l tablet 21:17: ns, 4 tab [place] n 00 PO Daily, # 120 tab, 3 Refill(s), Pharmacy: [facility] #[id number], 170.18, cm, 10/21/21 9:53:00 CDT, Height, 95, kg, 10/21/21 9:53:00 CDT, Weight predniSONE 2021-02 Yes See Memoria 1 mg oral 2-01 Instructio l tablet 21:17: ns, 4 tab [place] 00 PO Daily, # 120 tab, 3 Refill(s), Pharmacy: [facility] #[id number], 170.18, cm, 10/21/21 9:53:00 CDT, Height, 95, kg, 10/21/21 9:53:00 CDT, Weight predniSONE 2022-0 Yes 5 mg = 2 Mem oria 2.5 mg oral 8-31 tab, PO, l tablet 15:02: Daily, # [place] 00 60 tab, 4 Refill(s), [id number], 170.18, cm, 10/21/21 9:53:00 CDT, Height, 95, kg, 10/21/21 9:53:00 CDT, Weight predniSONE 2022-0 Yes 5 mg = 2 Mem oria 2.5 mg oral 8-31 tab, PO, l tablet 15:02: Daily, # [place] 00 60 tab, 4 Refill(s), [id number] 170.18, cm, 10/21/21 9:53:00 CDT, Height, 95, kg, 10/21/21 9:53:00 CDT, Weight predniSONE 2022-0 Yes 5 mg = 2 Mem oria 2.5 mg oral 8-31 tab, PO, l tablet 15:02: Daily, # [place] 00 60 tab, 4 Refill(s), [id number], 170.18, cm, 10/21/21 9:53:00 CDT, Height, 95, kg, 10/21/21 9:53:00 CDT, Weight predniSONE 2022-0 Yes 5 mg = 2 Mem oria 2.5 mg oral 8-31 tab, PO, l tablet 15:02: Daily, # Pritesh 00 60 tab, 4 Refill(s), [id number], 170.18, cm, 10/21/21 9:53:00 CDT, Height, 95, kg, 10/21/21 9:53:00 CDT, Weight predniSONE 2022-0 Yes 5 mg = 2 Mem oria 2.5 mg oral 8-31 tab, PO, l tablet 15:02: Daily, # [place] 00 60 tab, 4 Refill(s), [id number], 170.18, cm, 10/21/21 9:53:00 CDT, Height, 95, kg, 10/21/21 9:53:00 CDT, Weight predniSONE 2022-0 Yes 5 mg = 2 Mem oria 2.5 mg oral 8-31 tab, PO, l tablet 15:02: Daily, # [place] 00 60 tab, 4 Refill(s), [facility]: [id number], 170.18, cm, 10/21/21 9:53:00 CDT, Height, 95, kg, 10/21/21 9:53:00 CDT, Weight predniSONE 2022-0 Yes 7.5 mg = 3 M emoria 2.5 mg oral 6-02 tab, PO, l tablet 15:20: Daily, # Pritesh 00 90 tab, 4 Refill(s), Pharmacy: [facility] #[id number], 170.18, cm, 07/23/21 10:00:00 CDT, Height, 94.688, kg, 07/23/21 10:00:00 CDT, Weight predniSONE 2022-0 Yes 7.5 mg = 3 M emoria 2.5 mg oral 6-02 tab, PO, l tablet 15:20: Daily, # [place] 00 90 tab, 4 Refill(s), [id number], 170.18, cm, 07/23/21 10:00:00 CDT, Height, 94.688, kg, 07/23/21 10:00:00 CDT, Weight predniSONE 2022-0 Yes 7.5 mg = 3 M emoria 2.5 mg oral 6-02 tab, PO, l tablet 15:20: Daily, # [place] 00 90 tab, 4 Refill(s), Pharmacy: [facility] #[id number], 170.18, cm, 07/23/21 10:00:00 CDT, Height, 94.688, kg, 07/23/21 10:00:00 CDT, Weight predniSONE 2022-0 Yes 7.5 mg = 3 M emoria 2.5 mg oral 6-02 tab, PO, l tablet 15:20: Daily, # [place] 00 90 tab, 4 Refill(s), Pharmacy: [facility] #[id number], 170.18, cm, 07/23/21 10:00:00 CDT, Height, 94.688, kg, 07/23/21 10:00:00 CDT, Weight predniSONE 2022-0 Yes 7.5 mg = 3 M emoria 2.5 mg oral 6-02 tab, PO, l tablet 15:20: Daily, # Pritesh 00 90 tab, 4 Refill(s), Pharmacy: [id number], 170.18, cm, 07/23/21 10:00:00 CDT, Height, 94.688, kg, 07/23/21 10:00:00 CDT, Weight predniSONE 2022-0 Yes 7.5 mg = 3 M emoria 2.5 mg oral 6-02 tab, PO, l tablet 15:20: Daily, # [place] 00 90 tab, 4 Refill(s), Pharmacy: [id number], 170.18, cm, 07/23/21 10:00:00 CDT, Height, 94.688, kg, 07/23/21 10:00:00 CDT, Weight predniSONE 2022-0 Yes 10 mg = 1 Me moria 10 mg oral 4-15 tab, PO, l tablet 14:53: Daily, # [place] 00 30 tab, 2 Refill(s), Pharmacy: [id number], 170.18, cm, 06/05/21 9:28:00 CDT, Height, 95, kg, 06/05/21 9:28:00 CDT, Weight predniSONE 2022-0 Yes 10 mg = 1 Me moria 10 mg oral 4-15 tab, PO, l tablet 14:53: Daily, # Pritesh 00 30 tab, 2 Refill(s), Pharmacy: [id number], 170.18, cm, 06/05/21 9:28:00 CDT, Height, 95, kg, 06/05/21 9:28:00 CDT, Weight predniSONE 2022-0 Yes 10 mg = 1 Me moria 10 mg oral 4-15 tab, PO, l tablet 14:53: Daily, # [place] 00 30 tab, 2 Refill(s), Pharmacy: [id number], 170.18, cm, 06/05/21 9:28:00 CDT, Height, 95, kg, 06/05/21 9:28:00 CDT, Weight predniSONE 2022-0 Yes 10 mg = 1 Me moria 10 mg oral 4-15 tab, PO, l tablet 14:53: Daily, # [place] 00 30 tab, 2 Refill(s), Pharmacy: [facility] #[id number], 170.18, cm, 06/05/21 9:28:00 CDT, Height, 95, kg, 06/05/21 9:28:00 CDT, Weight predniSONE 2-0 Yes 10 mg = 1 Me moria 10 mg oral 4-15 tab, PO, l tablet 14:53: Daily, # Pritesh 00 30 tab, 2 Refill(s), Pharmacy: [facility] #[id number], 170.18, cm, 06/05/21 9:28:00 CDT, Height, 95, kg, 06/05/21 9:28:00 CDT, Weight predniSONE 2-0 Yes 10 mg = 1 Me moria 10 mg oral 4-15 tab, PO, l tablet 14:53: Daily, # Pritesh 00 30 tab, 2 Refill(s), Pharmacy: [facility] #[id number], 170.18, cm, 06/05/21 9:28:00 CDT, Height, 95, kg, 06/05/21 9:28:00 CDT, Weight alfuzosin 2022-0 Yes 10 mg = 1 Mem oria 10 mg oral 4-15 tab, PO, l tablet, 14:42: Daily, # [place] extended 00 30 tab, 0 release Refill(s) alfuzosin 2022-0 Yes 10 mg = 1 Mem oria 10 mg oral 4-15 tab, PO, l tablet, 14:42: Daily, # [place] extended 00 30 tab, 0 release Refill(s) alfuzosin 2022-0 Yes 10 mg = 1 Mem oria 10 mg oral 4-15 tab, PO, l tablet, 14:42: Daily, # [place] extended 00 30 tab, 0 release Refill(s) alfuzosin 2022-0 Yes 10 mg = 1 Mem oria 10 mg oral 4-15 tab, PO, l tablet, 14:42: Daily, # [place] extended 00 30 tab, 0 release Refill(s) alfuzosin 2022-0 Yes 10 mg = 1 Mem oria 10 mg oral 4-15 tab, PO, l tablet, 14:42: Daily, # [place] n extended 00 30 tab, 0 release Refill(s) alfuzosin 2021-0 Yes 10 mg = 1 Mem oria 10 mg oral 4-15 tab, PO, l tablet, 14:42: Daily, # [place] extended 00 30 tab, 0 release Refill(s) predniSONE 2021-0 Yes 10 mg = 1 Me moria 10 mg oral 3-04 tab, PO, l tablet 16:34: Daily, # Pritesh 00 30 tab, 2 Refill(s), Pharmacy: [id number], 170.18, cm, 04/24/21 10:11: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, Height, 95, kg, 04/24/21 10:11: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, Weight predniSONE 2021-0 Yes 10 mg = 1 Me moria 10 mg oral 3-04 tab, PO, l tablet 16:34: Daily, # Pritesh 00 30 tab, 2 Refill(s), Pharmacy: [id number], 170.18, cm, 04/24/21 10:11: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, Height, 95, kg, 04/24/21 10:11: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, Weight predniSONE 2021-0 Yes 10 mg = 1 Me moria 10 mg oral 3-04 tab, PO, l tablet 16:34: Daily, # Pritesh 00 30 tab, 2 Refill(s), Pharmacy: [id number], 170.18, cm, 04/24/21 10:11: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, Height, 95, kg, 04/24/21 10:11: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, Weight predniSONE 2021-0 Yes 10 mg = 1 Me moria 10 mg oral 3-04 tab, PO, l tablet 16:34: Daily, # [place] 00 30 tab, 2 Refill(s), Pharmacy: [id number], 170.18, cm, 04/24/21 10:11: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, Height, 95, kg, 04/24/21 10:11: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, Weight predniSONE 2021-0 Yes 10 mg = 1 Me moria 10 mg oral 3-04 tab, PO, l tablet 16:34: Daily, # [place] 00 30 tab, 2 Refill(s), Pharmacy: [id number], 170.18, cm, 04/24/21 10:11: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, Height, 95, kg, 04/24/21 10:11: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, Weight predniSONE 2021-0 Yes 10 mg = 1 Me moria 10 mg oral 3-04 tab, PO, l tablet 16:34: Daily, # [place] 00 30 tab, 2 Refill(s), Pharmacy: [id number], 170.18, cm, 04/24/21 10:11: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, Height, 95, kg, 04/24/21 10:11: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, Weight predniSONE 2021-0 Yes 20 mg = 1 Me moria 20 mg oral 1-20 tab, PO, l tablet 16:52: Daily, X [place] 00 30 day, # 30 tab, 2 Refill(s), Pharmacy: [id number], 170.18, cm, 03/12/21 10:25: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, Height, 89.091, kg, 03/12/21 10:25: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, Weight predniSONE 2021-0 Yes 20 mg = 1 Me moria 20 mg oral 1-20 tab, PO, l tablet 16:52: Daily, X [place] 00 30 day, # 30 tab, 2 Refill(s), Pharmacy: [facility] #[id number], 170.18, cm, 03/12/21 10:25: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, Height, 89.091, kg, 03/12/21 10:25: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, Weight predniSONE 2021-0 Yes 20 mg = 1 Me moria 20 mg oral 1-20 tab, PO, l tablet 16:52: Daily, X [place] 00 30 day, # 30 tab, 2 Refill(s), Pharmacy: [id number], 170.18, cm, 03/12/21 10:25: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, Height, 89.091, kg, 03/12/21 10:25: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, Weight predniSONE 2-0 Yes 20 mg = 1 Me moria 20 mg oral 1-20 tab, PO, l tablet 16:52: Daily, X Pritesh 00 30 day, # 30 tab, 2 Refill(s), Pharmacy: [facility] #[id number], 170.18, cm, 03/12/21 10:25: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, Height, 89.091, kg, 03/12/21 10:25: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, Weight predniSONE 2021-0 Yes 20 mg = 1 Me moria 20 mg oral 1-20 tab, PO, l tablet 16:52: Daily, X [place] 00 30 day, # 30 tab, 2 Refill(s), [id number], 170.18, cm, 03/12/21 10:25: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, Height, 89.091, kg, 03/12/21 10:25: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, Weight predniSONE 2021-0 Yes 20 mg = 1 Me moria 20 mg oral 1-20 tab, PO, l tablet 16:52: Daily, X [place] day, # 30 tab, 2 Refill(s), Pharmacy: [facility] #[id number], 170.18, cm, 03/12/21 10:25: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, Height, 89.091, kg, 03/12/21 10:25: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, Weight ciprofloxac 2021-0 Yes 0 Memori a in 500 mg 1-20 Refill(s) l oral tablet 16:27: [place] 00 ciprofloxac 2021-0 Yes 0 Memori a in 500 mg 1-20 Refill(s) l oral tablet 16:27: [place] 00 ciprofloxac 2-0 Yes 0 Memori a in 500 mg 1-20 Refill(s) l oral tablet 16:27: [place] 00 ciprofloxac 2-0 Yes 0 Memori a in 500 mg 1-20 Refill(s) l oral tablet 16:27: [place] 00 ciprofloxac 2-0 Yes 0 Memori a in 500 mg 1-20 Refill(s) l oral tablet 16:27: [place] 00 ciprofloxac 2-0 Yes 0 Memori a in 500 mg 1-20 Refill(s) l oral tablet 16:27: [place] 00 predniSONE 2020- Yes 40 mg = 2 Me moria 20 mg oral 2-09 tab, PO, l tablet 18:05: Daily, X Pritesh 30 day, # 60 tab, 2 Refill(s), Pharmacy: [facility] #[id number], 172.72, cm, 01/29/21 11:37: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, Height, 88.636, kg, 01/29/21 11:37: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, Weight predniSONE 2020-02 Yes 40 mg = 2 Me moria 20 mg oral 2-09 tab, PO, l tablet 18:05: Daily, X Pritesh 00 30 day, # 60 tab, 2 Refill(s), Pharmacy: [facility] #[id number], 172.72, cm, 01/29/21 11:37: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, Height, 88.636, kg, 01/29/21 11:37: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, Weight predniSONE 2020-02 Yes 40 mg = 2 Me moria 20 mg oral 2-09 tab, PO, l tablet 18:05: Daily, X Pirtesh 00 30 day, # 60 tab, 2 Refill(s), Pharmacy: [facility] #[id number], 172.72, cm, 01/29/21 11:37: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, Height, 88.636, kg, 01/29/21 11:37: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, Weight predniSONE 2020-02 Yes 40 mg = 2 Me moria 20 mg oral 2-09 tab, PO, l tablet 18:05: Daily, X Pritesh 30 day, # 60 tab, 2 Refill(s), Pharmacy: [facility] #[id number], 172.72, cm, 01/29/21 11:37: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, Height, 88.636, kg, 01/29/21 11:37: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, Weight predniSONE 2020-02 Yes 40 mg = 2 Me moria 20 mg oral 2-09 tab, PO, l tablet 18:05: Daily, X [place] 00 30 day, # 60 tab, 2 Refill(s), Pharmacy: [facility] #[id number], 172.72, cm, 01/29/21 11:37: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, Height, 88.636, kg, 01/29/21 11:37: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, Weight predniSONE 2020-02 Yes 40 mg = 2 Me moria 20 mg oral 2-09 tab, PO, l tablet 18:05: Daily, X [place] 00 30 day, # 60 tab, 2 Refill(s), Pharmacy: [facility] #[id number], 172.72, cm, 01/29/21 11:37: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, Height, 88.636, kg, 01/29/21 11:37: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, Weight alax 2020-02 Yes 17 gm, PO, John sunil 2-09 Daily, 0 l 17:49: Refill(s) MiraLax 2020-02 Yes 17 gm, PO, John sunil 2-09 Daily, 0 l 17:49: Refill(s) Miralax 2020-02 Yes 17 gm, PO, John sunil 2-09 Daily, 0 l 17:49: Refill(s) MiraLax 2020-02 Yes 17 gm, PO, John sunil 2-09 Daily, 0 l 17:49: Refill(s) Miralax 2020-02 Yes 17 gm, PO, John sunil 2-09 Daily, 0 l 17:49: Refill(s) MiraLax 2020-02 Yes 17 gm, PO, John sunil 2-09 Daily, 0 l 17:49: Refill(s) Miralax 2020-02 Yes 17 gm, PO, John sunil 2-09 Daily, 0 l 17:49: Refill(s) MiraLax 2020-02 Yes 17 gm, PO, John sunil 2-09 Daily, 0 l 17:49: Refill(s) Miralax 2020-02 Yes 17 gm, PO, John sunil 2-09 Daily, 0 l 17:49: Refill(s) MiraLax 2020-02 Yes 17 gm, PO, John sunil 2-09 Daily, 0 l 17:49: Refill(s) Miralax 2020-02 Yes 17 gm, PO, John sunil 2-09 Daily, 0 l 17:49: Refill(s) MiraLax 2020-02 Yes 17 gm, PO, John sunil 2-09 Daily, 0 l 17:49: Refill(s) ciprofloxac 2020-02 Yes 500 mg = 1 Memoria in 500 mg 2-09 tab, PO, l oral tablet 17:48: Q12H, 0 Her prince 00 Refill(s) ciprofloxac 2020-02 Yes 500 mg = 1 Memoria in 500 mg 2-09 tab, PO, l oral tablet 17:48: Q12H, 0 Her prince 00 Refill(s) ciprofloxac 2020-02 Yes 500 mg = 1 Memoria in 500 mg 2-09 tab, PO, l oral tablet 17:48: Q12H, 0 Her prince 00 Refill(s) ciprofloxac 2020-02 Yes 500 mg = 1 Memoria in 500 mg 2-09 tab, PO, l oral tablet 17:48: Q12H, 0 Her [facility] 00 Refill(s) ciprofloxac 2020-02 Yes 500 mg = 1 Memoria in 500 mg 2-09 tab, PO, l oral tablet 17:48: Q12H, 0 [place] 00 Refill(s) ciprofloxac 2020-02 Yes 500 mg = 1 [...] tablet 17:47: Q6H, 0 [place] 00 Refill(s) tramadol 2020-02 Yes 50 mg = 1 John sunil hydrochlori 2-09 tab, PO, l de 50 MG 17:47: Q6H, 0 [place] Oral Tablet 00 Refill(s) tramadol 50 2020-02 Yes 50 mg = 1 M emoria mg oral 2-09 tab, PO, l tablet 17:47: Q6H, 0 Pritesh 00 Refill(s) tramadol 2020-02 Yes 50 mg = 1 John sunil hydrochlori 2-09 tab, PO, l de 50 MG 17:47: Q6H, 0 [place] Oral Tablet 00 Refill(s) tramadol 50 2020-02 Yes 50 mg = 1 M emoria mg oral 2-09 tab, PO, l tablet 17:47: Q6H, 0 [place] 00 Refill(s) tramadol 2020-02 Yes 50 mg = 1 John sunil hydrochlori 2-09 tab, PO, l de 50 MG 17:47: Q6H, 0 Pritesh Oral Tablet 00 Refill(s) tramadol 50 2020-02 Yes 50 mg = 1 M emoria mg oral 2-09 tab, PO, l tablet 17:47: Q6H, 0 [place] 00 Refill(s) tramadol 2020-02 Yes 50 mg = 1 John sunil hydrochlori 2-09 tab, PO, l de 50 MG 17:47: Q6H, 0 Pritesh Oral Tablet 00 Refill(s) tramadol 50 2020-02 Yes 50 mg = 1 M emoria mg oral 2-09 tab, PO, l tablet 17:47: Q6H, 0 Pritesh 00 Refill(s) tramadol 2020-02 Yes 50 mg = 1 John sunil hydrochlori 2-09 tab, PO, l de 50 MG 17:47: Q6H, 0 [place] Oral Tablet 00 Refill(s) tramadol 50 2020-02 Yes 50 mg = 1 M emoria mg oral 2-09 tab, PO, l tablet 17:47: Q6H, 0 [place] 00 Refill(s) predniSONE 2020-02 Yes 60 mg = 3 Me moria 20 mg oral 1-09 tab, PO, l tablet 15:54: Daily, X [place] 00 30 day, # 90 tab, 2 Refill(s), Pharmacy: [facility] #[id number], 170.18, cm, 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, Height, 92.727, kg, 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, Weight predniSONE 2020-02 Yes 60 mg = 3 Me moria 20 mg oral 1-09 tab, PO, l tablet 15:54: Daily, X [place] 00 30 day, # 90 tab, 2 Refill(s), Pharmacy: [facility] #[id number], 170.18, cm, 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, Height, 92.727, kg, 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, Weight predniSONE 2020-02 Yes 60 mg = 3 Me moria 20 mg oral 1-09 tab, PO, l tablet 15:54: Daily, X [place] 00 30 day, # 90 tab, 2 Refill(s), Pharmacy: [facility] #[id number], 170.18, cm, 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, Height, 92.727, kg, 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, Weight predniSONE 2020-02 Yes 60 mg = 3 Me moria 20 mg oral 1-09 tab, PO, l tablet 15:54: Daily, X Pritesh 00 30 day, # 90 tab, 2 Refill(s), Pharmacy: [facility] #[id number], 170.18, cm, 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, Height, 92.727, kg, 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, Weight predniSONE 2020-02 Yes 60 mg = 3 Me moria 20 mg oral 1-09 tab, PO, l tablet 15:54: Daily, X Pritesh 00 30 day, # 90 tab, 2 Refill(s), Pharmacy: [facility] #[id number], 170.18, cm, 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, Height, 92.727, kg, 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, Weight predniSONE 2020-02 Yes 60 mg = 3 Me moria 20 mg oral 1-09 tab, PO, l tablet 15:54: Daily, X [place] 00 30 day, # 90 tab, 2 Refill(s), Pharmacy: [facility] #[id number], 170.18, cm, 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, Height, 92.727, kg, 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, Weight predniSONE 2020-02 No 60 mg = 3 Me moria 20 mg oral 1-09 tab, PO, l tablet 15:50: Daily, 0 Pritesh 00 Refill(s) predniSONE 2020-02 No 60 mg = 3 Me moria 20 mg oral 1-09 tab, PO, l tablet 15:50: Daily, 0 Pritesh 00 Refill(s) predniSONE 2020-02 No 60 mg = 3 Me moria 20 mg oral 1-09 tab, PO, l tablet 15:50: Daily, 0 [place] 00 Refill(s) predniSONE 2020-02 No 60 mg = 3 Me moria 20 mg oral 03-01 tab, PO, l tablet 15:50: Daily, 0 [place] 00 Refill(s) predniSONE 2020-02 No 60 mg = 3 Me moria 20 mg oral 03-01 tab, PO, l tablet 15:50: Daily, 0 [place] 00 Refill(s) predniSONE 2020-02 No 60 mg = 3 Me moria 20 mg oral 03-01 tab, PO, l tablet 15:50: Daily, 0 Pritesh 00 Refill(s) MethylPREDN 2020-02 No FOLLOW John sunil ISolone 03-01 PACKAGE l Dose Pack 4 15:46: DIRECTIONS Pritesh mg oral 00 tablet MethylPREDN 2020-02 No FOLLOW John sunil ISolone 03-01 PACKAGE l Dose Pack 4 15:46: DIRECTIONS [place] mg oral 00 tablet MethylPREDN 2020-02 No FOLLOW John sunil ISolone 03-01 PACKAGE l Dose Pack 4 15:46: DIRECTIONS [place] mg oral 00 tablet MethylPREDN 2020-02 No FOLLOW John sunil ISolone 03-01 PACKAGE l Dose Pack 4 15:46: DIRECTIONS Pritesh mg oral 00 tablet MethylPREDN 2020-02 No FOLLOW John sunil ISolone 03-01 PACKAGE l Dose Pack 4 15:46: DIRECTIONS Pritesh mg oral 00 tablet MethylPREDN 2020-02 No FOLLOW John sunil ISolone 09 PACKAGE l Dose Pack 4 15:46: DIRECTIONS Pritesh mg oral 00 tablet atorvastati Yes TAKE 1 John sunil n 10 mg 5-20 TABLET BY l oral tablet 16:00: MOUTH Iqra nn 00 EVERY NIGHT AT BEDTIME atorvastati Yes TAKE 1 John sunil n 10 mg 5-20 TABLET BY l oral tablet 16:00: MOUTH Iqra nn 00 EVERY NIGHT AT BEDTIME atorvastati Yes TAKE 1 John sunil n 10 mg 5-20 TABLET BY l oral tablet 16:00: MOUTH Iqra nn 00 EVERY NIGHT AT BEDTIME atorvastati Yes TAKE 1 John sunil n 10 mg 5-20 TABLET BY l oral tablet 16:00: MOUTH Iqra nn 00 EVERY NIGHT AT BEDTIME atorvastati Yes TAKE 1 John sunil n 10 mg 5-20 TABLET BY l oral tablet 16:00: MOUTH Iqra nn 00 EVERY NIGHT AT BEDTIME atorvastati 1-0 Yes TAKE 1 John sunil n 10 mg 5-20 TABLET BY l oral tablet 16:00: MOUTH Iqra nn 00 EVERY NIGHT AT BEDTIME Prednisone 2020-1 Yes 1 mg = 1 Mem oria 1 MG Oral 1-20 tab, PO, l Tablet 17:25: Daily, # [place] 00 30 tab, 4 Refill(s), Pharmacy: [facility] #[id number], 172.72, cm, 01/11/20 10: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, Height, 94.545, kg, 01/11/20 10: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, Weight Prednisone 2020- Yes 1 mg = 1 Mem oria 1 MG Oral 1-20 tab, PO, l Tablet 17:25: Daily, # Pritesh 00 30 tab, 4 Refill(s), Pharmacy: [facility] #[id number], 172.72, cm, 01/11/20 10: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, Height, 94.545, kg, 01/11/20 10: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, Weight Prednisone 2020- Yes 1 mg = 1 Mem oria 1 MG Oral 1-20 tab, PO, l Tablet 17:25: Daily, # Prit[place] 00 30 tab, 4 Refill(s), Pharmacy: [facility] #[id number], 172.72, cm, 01/11/20 10: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, Height, 94.545, kg, 01/11/20 10: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, Weight Prednisone 2020- Yes 1 mg = 1 Mem oria 1 MG Oral 1-20 tab, PO, l Tablet 17:25: Daily, # [place]rit[place] 00 30 tab, 4 Refill(s), Pharmacy: [facility] #[id number], 172.72, cm, 01/11/20 10: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, Height, 94.545, kg, 01/11/20 10: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, Weight Prednisone 2020-1 Yes 1 mg = 1 Mem oria 1 MG Oral 1-20 tab, PO, l Tablet 17:25: Daily, # [place] 00 30 tab, 4 Refill(s), Pharmacy: [facility] #[id number], 172.72, cm, 01/11/20 10: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, Height, 94.545, kg, 01/11/20 10: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, Weight Prednisone 2020-1 Yes 1 mg = 1 Mem oria 1 MG Oral 1-20 tab, PO, l Tablet 17:25: Daily, # [place] 00 30 tab, 4 Refill(s), Pharmacy: [facility] #[id number], 172.72, cm, 01/11/20 10: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, Height, 94.545, kg, 01/11/20 10: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, Weight Prednisone 2020-0 Yes 2 mg = 2 Mem oria 1 MG Oral 8-20 tab, PO, l Tablet 15:57: Daily, # [place] 00 60 tab, 4 Refill(s), Pharmacy: [facility] #[id number], 172.72, cm, 10/11/19 10:47: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, Height, 94.545, kg, 10/11/19 10:47:00 CDT, Weight Prednisone 2020-0 Yes 2 mg = 2 Mem oria 1 MG Oral 8-20 tab, PO, l Tablet 15:57: Daily, # [place] 00 60 tab, 4 Refill(s), Pharmacy: [facility] #[id number], 172.72, cm, 10/11/19 10:47:00 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, Height, 94.545, kg, 10/11/19 10:47:00 CDT, Weight Prednisone 2020-0 Yes 2 mg = 2 Mem oria 1 MG Oral 8-20 tab, PO, l Tablet 15:57: Daily, # [place] 00 60 tab, 4 Refill(s), Pharmacy: [facility] #[id number], 172.72, cm, 10/11/19 10:47:00 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, Height, 94.545, kg, 10/11/19 10:47:00 CDT, Weight Prednisone 2020-0 Yes 2 mg = 2 Mem oria 1 MG Oral 8-20 tab, PO, l Tablet 15:57: Daily, # [place] 00 60 tab, 4 Refill(s), Pharmacy: [facility] #[id number], 172.72, cm, 10/11/19 10:47:00 CDT, Height, 94.545, kg, 10/11/19 10:47:00 CDT, Weight Prednisone 2020-0 Yes 2 mg = 2 Mem oria 1 MG Oral 8-20 tab, PO, l Tablet 15:57: Daily, # [place] 00 60 tab, 4 Refill(s), Pharmacy: [facility] #[id number], 172.72, cm, 10/11/19 10:47:00 CDT, Height, 94.545, kg, 10/11/19 10:47:00 CDT, Weight Prednisone 2020-0 Yes 2 mg = 2 Mem oria 1 MG Oral 8-20 tab, PO, l Tablet 15:57: Daily, # Prit[place] 00 60 tab, 4 Refill(s), Pharmacy: [facility] #[id number], 172.72, cm, 10/11/19 10:47:00 CDT, Height, 94.545, kg, 10/11/19 10:47:00 CDT, Weight predniSONE 2020-0 Yes 2.5 mg = 1 M emoria 2.5 mg oral 5-20 tab, PO, l tablet 16:17: Daily, # Prit[place] 00 30 tab, 3 Refill(s), Pharmacy: [facility] #[id number] predniSONE 2020-0 Yes 2.5 mg = 1 M emoria 2.5 mg oral 5-20 tab, PO, l tablet 16:17: Daily, # [place] 00 30 tab, 3 Refill(s), Pharmacy: [facility] #[id number] predniSONE 2020-0 Yes 2.5 mg = 1 M emoria 2.5 mg oral 5-20 tab, PO, l tablet 16:17: Daily, # Pritesh 00 30 tab, 3 Refill(s), Pharmacy: [facility] #[id number] predniSONE 2020-0 Yes 2.5 mg = 1 M emoria 2.5 mg oral 5-20 tab, PO, l tablet 16:17: Daily, # Prit[place] 00 30 tab, 3 Refill(s), Pharmacy: [facility] #[id number] predniSONE 2020-0 Yes 2.5 mg = 1 M emoria 2.5 mg oral 5-20 tab, PO, l tablet 16:17: Daily, # [place] 00 30 tab, 3 Refill(s), Pharmacy: [facility] predniSONE 2020-0 Yes 2.5 mg = 1 M emoria 2.5 mg oral 5-20 tab, PO, l tablet 16:17: Daily, # Pritesh 00 30 tab, 3 Refill(s), Pharmacy: [facility] #[facility] predniSONE 2019- Yes 5 mg = 2 Mem oria 2.5 mg oral 2-10 tab, PO, l tablet 22:46: Daily, # Pritesh 14 60 tab, 3 Refill(s), Pharmacy: [facility] #[facility] predniSONE 2019- Yes 5 mg = 2 Mem oria 2.5 mg oral 2-10 tab, PO, l tablet 22:46: Daily, # [place] 14 60 tab, 3 Refill(s), Pharmacy: [facility] #[facility] predniSONE 2019- Yes 5 mg = 2 Mem oria 2.5 mg oral 2-10 tab, PO, l tablet 22:46: Daily, # Pritesh 14 60 tab, 3 Refill(s), Pharmacy: [facility] #[facility] predniSONE 2019- Yes 5 mg = 2 Mem oria 2.5 mg oral 2-10 tab, PO, l tablet 22:46: Daily, # [place] 14 60 tab, 3 Refill(s), Pharmacy: [facility] #[facility] predniSONE 2019- Yes 5 mg = 2 Mem oria 2.5 mg oral 2-10 tab, PO, l tablet 22:46: Daily, # Pritesh 14 60 tab, 3 Refill(s), Pharmacy: [facility] #[facility] predniSONE 2019-1 Yes 5 mg = 2 Mem oria 2.5 mg oral 2-10 tab, PO, l tablet 22:46: Daily, # [place] 14 60 tab, 3 Refill(s), Pharmacy: [facility] #[facility] predniSONE 2019-0 Yes 7.5 mg = 3 M emoria 2.5 mg oral 9-20 tab, PO, l tablet 21:29: Daily, # [place] 41 90 tab, 3 Refill(s), Pharmacy: [facility] #[facility] predniSONE 2019-0 Yes 7.5 mg = 3 M emoria 2.5 mg oral 9-20 tab, PO, l tablet 21:29: Daily, # [place] 41 90 tab, 3 Refill(s), Pharmacy: [facility] #[id number] predniSONE 2019-0 Yes 7.5 mg = 3 M emoria 2.5 mg oral 9-20 tab, PO, l tablet 21:29: Daily, # [place] 41 90 tab, 3 Refill(s), Pharmacy: [facility] #[id number] predniSONE 2019-0 Yes 7.5 mg = 3 M emoria 2.5 mg oral 9-20 tab, PO, l tablet 21:29: Daily, # Pritesh 41 90 tab, 3 Refill(s), Pharmacy: [facility] #[id number] predniSONE 2019-0 Yes 7.5 mg = 3 M emoria 2.5 mg oral 9-20 tab, PO, l tablet 21:29: Daily, # [place] 41 90 tab, 3 Refill(s), Pharmacy: [facility] #[id number] predniSONE 2019-0 Yes 7.5 mg = 3 M emoria 2.5 mg oral 9-20 tab, PO, l tablet 21:29: Daily, # [place] 41 90 tab, 3 Refill(s), Pharmacy: [facility] #[id number] Restasis 2019-0 Yes 0.4 mL, Memori a 9-20 BOTH EYES, l 21:07: BID, 0 [place] 00 Refill(s) Restasis 2019-0 Yes 0.4 mL, Memori a 9-20 BOTH EYES, l 21:07: BID, 0 Pritesh 00 Refill(s) Restasis 2019-0 Yes 0.4 mL, Memori a 9-20 BOTH EYES, l 21:07: BID, 0 [place] 00 Refill(s) Restasis 2019-0 Yes 0.4 mL, Memori a 9-20 BOTH EYES, l 21:07: BID, 0 [place] 00 Refill(s) Restasis 2019-0 Yes 0.4 mL, Memori a 9-20 BOTH EYES, l 21:07: BID, 0 [place] 00 Refill(s) Restasis 2019-0 Yes 0.4 mL, Memori a 9-20 BOTH EYES, l 21:07: BID, 0 [place] 00 Refill(s) Restasis 2019-0 Yes 0.4 mL, Memori a 9-20 BOTH EYES, l 21:07: BID, 0 [place] 00 Refill(s) Restasis 2019-0 Yes 0.4 mL, Memori a 9-20 BOTH EYES, l 21:07: BID, 0 [place] 00 Refill(s) Restasis 2019-0 Yes 0.4 mL, Memori a 9-20 BOTH EYES, l 21:07: BID, 0 Pritesh 00 Refill(s) Restasis 2019-0 Yes 0.4 mL, Memori a 9-20 BOTH EYES, l 21:07: BID, 0 [place] 00 Refill(s) Restasis 2019-0 Yes 0.4 mL, Memori a 9-20 BOTH EYES, l 21:07: BID, 0 Pritesh 00 Refill(s) Restasis 2019-0 Yes 0.4 mL, Memori a 9-20 BOTH EYES, l 21:07: BID, 0 Pritesh 00 Refill(s) predniSONE 2019-0 Yes 5 mg = 2 Mem oria 2.5 mg oral 8-02 tab, PO, l tablet 21:15: Daily, # [place] 19 60 tab, 3 Refill(s), [id number] predniSONE 2019-0 Yes 5 mg = 2 Mem oria 2.5 mg oral 8-02 tab, PO, l tablet 21:15: Daily, # Pritesh 19 60 tab, 3 Refill(s), [id number] predniSONE 2019-0 Yes 5 mg = 2 Mem oria 2.5 mg oral 8-02 tab, PO, l tablet 21:15: Daily, # Pritesh 19 60 tab, 3 Refill(s), [id number] predniSONE 2019-0 Yes 5 mg = 2 Mem oria 2.5 mg oral 8-02 tab, PO, l tablet 21:15: Daily, # Pritesh 19 60 tab, 3 Refill(s), [id number] predniSONE 2019-0 Yes 5 mg = 2 Mem oria 2.5 mg oral 8-02 tab, PO, l tablet 21:15: Daily, # Pritesh 19 60 tab, 3 Refill(s), [id number] predniSONE 2019-0 Yes 5 mg = 2 Mem oria 2.5 mg oral 8-02 tab, PO, l tablet 21:15: Daily, # Pritesh 19 60 tab, 3 Refill(s), Pharmacy: [facility] #[id number] predniSONE 2019-0 No 7.5 mg = 3 M emoria 2.5 mg oral 7-03 tab, PO, l tablet 16:57: Daily, # Pritesh 34 90 tab, 3 Refill(s), Pharmacy: [place] [id number] predniSONE 2019-0 No 7.5 mg = 3 M emoria 2.5 mg oral 7-03 tab, PO, l tablet 16:57: Daily, # [place] 34 90 tab, 3 Refill(s), Pharmacy: [place] [id number] predniSONE 2019-0 No 7.5 mg = 3 M emoria 2.5 mg oral 7-03 tab, PO, l tablet 16:57: Daily, # [place] 34 90 tab, 3 Refill(s), Pharmacy: [place] [id number] predniSONE 2019-0 No 7.5 mg = 3 M emoria 2.5 mg oral 7-03 tab, PO, l tablet 16:57: Daily, # Pritesh 34 90 tab, 3 Refill(s), Pharmacy: [place] [id number] predniSONE 2019-0 No 7.5 mg = 3 M emoria 2.5 mg oral 7-03 tab, PO, l tablet 16:57: Daily, # Pritesh 34 90 tab, 3 Refill(s), Pharmacy: [place] [id number] predniSONE 2019-0 No 7.5 mg = 3 M emoria 2.5 mg oral 7-03 tab, PO, l tablet 16:57: Daily, # Pritesh 34 90 tab, 3 Refill(s), Pharmacy: [place] [address] Ketorolac Ketorolac 2019-0 No 60mg Com mon 15mg 15mg 07-28 [facility]: [facility] Ketorolac Ketorolac 2019-0 No 60mg Com mon 15mg 15mg 07-28 [facility]: - [facility] Ketorolac Ketorolac 2019-0 No 60mg Com mon 15mg 15mg 07-28 [facility]: - [facility] Ketorolac Ketorolac 2019-0 No 60mg Com mon 15mg 15mg 07-28 [facility] 00:[facility]: - [facility] predniSONE 2019-0 Yes 5 mg = 2 Mem oria 2.5 mg oral 5-17 tab, PO, l tablet 14:29: Daily, # Pritesh 00 60 tab, 3 Refill(s), Pharmacy: [facility] predniSONE 2019-0 Yes 5 mg = 2 Mem oria 2.5 mg oral 5-17 tab, PO, l tablet 14:29: Daily, # Pritesh 00 60 tab, 3 Refill(s), Pharmacy: [facility] predniSONE 2019-0 Yes 5 mg = 2 Mem oria 2.5 mg oral 5-17 tab, PO, l tablet 14:29: Daily, # [place] 00 60 tab, 3 Refill(s), Pharmacy: [facility] predniSONE 2019-0 Yes 5 mg = 2 Mem oria 2.5 mg oral 5-17 tab, PO, l tablet 14:29: Daily, # [place] 00 60 tab, 3 Refill(s), Pharmacy: [facility] predniSONE 2019-0 Yes 5 mg = 2 Mem oria 2.5 mg oral 5-17 tab, PO, l tablet 14:29: Daily, # Pritesh 00 60 tab, 3 Refill(s), Pharmacy: [facility] [employer] [facility] [place] [id number] predniSONE 2019-0 Yes 5 mg = 2 Mem oria 2.5 mg oral 5-17 tab, PO, l tablet 14:29: Daily, # [place] 00 60 tab, 3 Refill(s), Pharmacy: [facility] atorvastati 2019-0 Yes 20 mg = 1 M emoria n 20 mg 5-17 tab, PO, l oral tablet 14:19: Bedtime, # [place] 00 30 tab, 0 Refill(s) azilsartan 2019-0 Yes 40 mg = 1 Me moria medoxomil 5-17 tab, PO, l 40 MG Oral 14:19: Daily, 0 Her prince Tablet 00 Refill(s) [Edarbi] nebivolol 2019-0 Yes 40 mg = 2 Mem oria 20 MG Oral 5-17 tab, PO, l Tablet 14:19: Bedtime, 0 Iqra nn [Bystolic] 00 Refill(s) Aspirin 81 2019- Yes 81 mg = 1 Me moria MG Enteric 5-17 tab, PO, l Coated 14:19: Daily, # [place] Tablet 00 90 tab, 3 Refill(s) Edarbi 40 2019- Yes 40 mg = 1 Mem oria mg oral 5-17 tab, PO, l tablet 14:19: Daily, 0 Pritesh 00 Refill(s) amLODIPine 2019- Yes 10 mg = 1 Me moria 10 mg oral 5-17 tab, PO, l tablet 14:19: Daily, # Pritesh 00 90 tab, 0 Refill(s) clopidogrel 2019- Yes 75 mg = 1 M emoria 75 mg oral 5-17 tab, PO, l tablet 14:19: Daily, # Pritesh 00 30 tab, 0 Refill(s) aspirin 81 2019- Yes 81 mg = 1 Me moria mg tablet, 5-17 tab, PO, l enteric 14:19: Daily, # [place] n coated 00 90 tab, 3 Refill(s) Bystolic 20 Yes 40 mg = 2 M emoria mg oral 5-17 tab, PO, l tablet 14:19: Bedtime, 0 Iqra nn 00 Refill(s) omeprazole 2019- Yes 40 mg = 1 Me moria 40 mg oral 5-17 cap, PO, l delayed 14:19: Daily, # [place] n release 00 30 cap, 0 capsule Refill(s) atorvastati 2019- Yes 20 mg = 1 M emoria n 20 mg 5-17 tab, PO, l oral tablet 14:19: Bedtime, # [place] 00 30 tab, 0 Refill(s) azilsartan 2019- Yes 40 mg = 1 Me moria medoxomil 5-17 tab, PO, l 40 MG Oral 14:19: Daily, 0 Her prince Tablet 00 Refill(s) [Edarbi] nebivolol 2019- Yes 40 mg = 2 Mem oria 20 MG Oral 5-17 tab, PO, l Tablet 14:19: Bedtime, 0 Iqra nn [Bystolic] 00 Refill(s) Aspirin 81 2019-0 Yes 81 mg = 1 Me moria MG Enteric 5-17 tab, PO, l Coated 14:19: Daily, # [place] Tablet 00 90 tab, 3 Refill(s) Edarbi 40 2018- Yes 40 mg = 1 Mem oria mg oral 5-17 tab, PO, l tablet 14:19: Daily, 0 Pritesh 00 Refill(s) amLODIPine 2018- Yes 10 mg = 1 Me moria 10 mg oral 5-17 tab, PO, l tablet 14:19: Daily, # Pritesh 00 90 tab, 0 Refill(s) clopidogrel 2019- Yes 75 mg = 1 M emoria 75 mg oral 5-17 tab, PO, l tablet 14:19: Daily, # [place] 00 30 tab, 0 Refill(s) aspirin 81 2018- Yes 81 mg = 1 Me moria mg tablet, 5-17 tab, PO, l enteric 14:19: Daily, # [place] n coated 00 90 tab, 3 Refill(s) Bystolic 20 Yes 40 mg = 2 M emoria mg oral 5-17 tab, PO, l tablet 14:19: Bedtime, 0 Iqra nn 00 Refill(s) omeprazole 2018- Yes 40 mg = 1 Me moria 40 mg oral 5-17 cap, PO, l delayed 14:19: Daily, # [place] n release 00 30 cap, 0 capsule Refill(s) atorvastati Yes 20 mg = 1 M emoria n 20 mg 5-17 tab, PO, l oral tablet 14:19: Bedtime, # Pritesh 00 30 tab, 0 Refill(s) azilsartan 2019- Yes 40 mg = 1 Me moria medoxomil 5-17 tab, PO, l 40 MG Oral 14:19: Daily, 0 Her prince Tablet 00 Refill(s) [Edarbi] nebivolol 2019- Yes 40 mg = 2 Mem oria 20 MG Oral 5-17 tab, PO, l Tablet 14:19: Bedtime, 0 Iqra nn [Bystolic] 00 Refill(s) Aspirin 81 2018- Yes 81 mg = 1 Me moria MG Enteric 5-17 tab, PO, l Coated 14:19: Daily, # [place] Tablet 00 90 tab, 3 Refill(s) Edarbi 40 2018- Yes 40 mg = 1 Mem oria mg oral 5-17 tab, PO, l tablet 14:19: Daily, 0 [place] 00 Refill(s) amLODIPine 2019 Yes 10 mg = 1 Me moria 10 mg oral 5-17 tab, PO, l tablet 14:19: Daily, # Pirtesh 00 90 tab, 0 Refill(s) clopidogrel 2019- Yes 75 mg = 1 M emoria 75 mg oral 5-17 tab, PO, l tablet 14:19: Daily, # Pritesh 00 30 tab, 0 Refill(s) aspirin 81 Yes 81 mg = 1 Me moria mg tablet, 5-17 tab, PO, l enteric 14:19: Daily, # [place] n coated 00 90 tab, 3 Refill(s) Bystolic 20 Yes 40 mg = 2 M emoria mg oral 5-17 tab, PO, l tablet 14:19: Bedtime, 0 Iqra nn 00 Refill(s) omeprazole Yes 40 mg = 1 Me moria 40 mg oral 5-17 cap, PO, l delayed 14:19: Daily, # [place] n release 00 30 cap, 0 capsule Refill(s) atorvastati Yes 20 mg = 1 M emoria n 20 mg 5-17 tab, PO, l oral tablet 14:19: Bedtime, # [place] 00 30 tab, 0 Refill(s) azilsartan Yes [...] tab, PO, l Coated 14:19: Daily, # [place] Tablet 00 90 tab, 3 Refill(s) Edarbi 40 Yes 40 mg = 1 Mem oria mg oral 5-17 tab, PO, l tablet 14:19: Daily, 0 Pritesh 00 Refill(s) amLODIPine Yes 10 mg = 1 Me moria [...] Bedtime, 0 Iqra nn 00 Refill(s) omeprazole 2019- Yes 40 mg = 1 Me moria 40 mg oral 5-17 cap, PO, l delayed 14:19: Daily, # [place] n release 00 30 cap, 0 capsule Refill(s) atorvastati 2018- Yes 20 mg = 1 M emoria n 20 mg 5-17 tab, PO, l oral tablet 14:19: Bedtime, # [place] 00 30 tab, 0 Refill(s) azilsartan 2019- Yes 40 mg = 1 Me moria medoxomil 5-17 tab, PO, l 40 MG Oral 14:19: Daily, 0 Her prince Tablet 00 Refill(s) [Edarbi] nebivolol 2019-0 Yes 40 mg = 2 Mem oria 20 MG Oral 5-17 tab, PO, l Tablet 14:19: Bedtime, 0 Iqra nn [Bystolic] 00 Refill(s) Aspirin 81 2019-0 Yes 81 mg = 1 Me moria MG Enteric 5-17 tab, PO, l Coated 14:19: Daily, # Pritesh Tablet 00 90 tab, 3 Refill(s) Edarbi 40 2019-0 Yes 40 mg = 1 Mem oria mg oral 5-17 tab, PO, l tablet 14:19: Daily, 0 [place] 00 Refill(s) amLODIPine 2019-0 Yes 10 mg = 1 Me moria 10 mg oral 5-17 tab, PO, l tablet 14:19: Daily, # Pritesh 00 90 tab, 0 Refill(s) clopidogrel 2019- Yes 75 mg = 1 M emoria 75 mg oral 5-17 tab, PO, l tablet 14:19: Daily, # Pritesh 00 30 tab, 0 Refill(s) aspirin 81 2019- Yes 81 mg = 1 Me moria mg tablet, 5-17 tab, PO, l enteric 14:19: Daily, # [place] n coated 00 90 tab, 3 Refill(s) Bystolic 20 2018- Yes 40 mg = 2 M emoria mg oral 5-17 tab, PO, l tablet 14:19: Bedtime, 0 Iqra nn 00 Refill(s) omeprazole 2019- Yes 40 mg = 1 Me moria 40 mg oral 5-17 cap, PO, l delayed 14:19: Daily, # [place] n release 00 30 cap, 0 capsule Refill(s) atorvastati 2019- Yes 20 mg = 1 M emoria n 20 mg 5-17 tab, PO, l oral tablet 14:19: Bedtime, # [place] 00 30 tab, 0 Refill(s) azilsartan 2019- Yes 40 mg = 1 Me moria medoxomil 5-17 tab, PO, l 40 MG Oral 14:19: Daily, 0 Her prince Tablet 00 Refill(s) [Edarbi] nebivolol 2019- Yes 40 mg = 2 Mem oria 20 MG Oral 5-17 tab, PO, l Tablet 14:19: Bedtime, 0 Iqra nn [Bystolic] 00 Refill(s) Aspirin 81 2019- Yes 81 mg = 1 Me moria MG Enteric 5-17 tab, PO, l Coated 14:19: Daily, # Pritesh Tablet 00 90 tab, 3 Refill(s) Edarbi 40 2019-0 Yes 40 mg = 1 Mem oria mg oral 5-17 tab, PO, l tablet 14:19: Daily, 0 Pritesh 00 Refill(s) amLODIPine 2019- Yes 10 mg = 1 Me moria 10 mg oral 5-17 tab, PO, l tablet 14:19: Daily, # [place] 00 90 tab, 0 Refill(s) clopidogrel 2019-0 Yes 75 mg = 1 M emoria 75 mg oral 5-17 tab, PO, l tablet 14:19: Daily, # [place] 00 30 tab, 0 Refill(s) aspirin 81 2019- Yes 81 mg = 1 Me moria [...] release 00 30 cap, 0 capsule Refill(s) predniSONE predniSONE No 1{table QD predniSONE 20 MG 20 MG t} 20 MG Clopidogrel Clopidogrel No 1{table QD Clopidogre Bisulfate Bisulfate t} l 75 MG 75 MG Bisulfate 75 MG Atorvastati Atorvastati No 1{table QD Atorvastat n Calcium n Calcium t} in Calcium 10 MG 10 MG 10 MG Vitamin D3 Vitamin D3 No Vitamin D3 Potassium Potassium No 1{table QD Potassium 99 MG 99 MG t} 99 MG traMADol-Ac traMADol-Ac No traMADol-A etaminophen etaminophen cetaminoph en Ciprofloxac Ciprofloxac No Ciprofloxa in in esa amLODIPine amLODIPine No 1{table QD amLODIPine Besylate [...] 20 MG 20 MG t} 20 MG amLODIPine amLODIPine No 1{table QD amLODIPine Besylate 10 Besylate 10 t} Besylate MG MG 10 MG Sodium Sodium No Sodium Fluoride Fluoride Fluoride Calcium 600 Calcium 600 No 1{table BID Calcium MG MG t_with_ 600 MG meals} Ciprofloxac Ciprofloxac No Ciprofloxa in in esa predniSONE predniSONE No 1{table QD predniSONE 20 MG 20 MG t} 20 MG Clopidogrel Clopidogrel No 1{table QD Clopidogre Bisulfate Bisulfate t} l 75 MG 75 MG Bisulfate 75 MG Amoxicillin Amoxicillin No 1{capsu Amoxicilli 500 MG 500 MG le} n 500 MG Vitamin D3 Vitamin D3 No Vitamin D3 Bystolic 20 Bystolic 20 No 2{table QD Bystolic MG MG ts} 20 MG Potassium Potassium No 1{table QD Potassium 99 MG 99 MG t} 99 MG Aspirin 81 Aspirin 81 No 1{capsu QD Aspirin 81 MG MG le} MG Atorvastati Atorvastati No 1{table QD Atorvastat n Calcium n Calcium t} in Calcium 10 MG 10 MG 10 MG Omeprazole Omeprazole No QD Omeprazole 40 MG 40 MG 40 MG Edarbi 40 Edarbi 40 No 1{table QD Edarbi 40 MG MG t} MG Ranitidine Ranitidine No Ranitidine HCl HCl HCl traMADol-Ac traMADol-Ac No traMADol-A etaminophen etaminophen cetaminoph en Sodium Sodium No Sodium Fluoride Fluoride Fluoride Edarbi 40 Edarbi 40 No 1{table QD Edarbi 40 MG MG t} MG Omeprazole Omeprazole No QD Omeprazole 40 MG 40 MG 40 MG amLODIPine amLODIPine No 1{table QD amLODIPine Besylate 10 Besylate 10 t} Besylate MG MG 10 MG Aspirin 81 Aspirin 81 No 1{capsu QD Aspirin 81 MG MG le} MG Ranitidine Ranitidine No Ranitidine HCl HCl HCl Calcium 600 Calcium 600 No 1{table BID Calcium MG MG t_with_ 600 MG meals} Amoxicillin Amoxicillin No 1{capsu Amoxicilli 500 MG 500 MG le} n 500 MG Bystolic 20 Bystolic 20 No 2{table QD Bystolic MG MG ts} 20 MG Vital Signs Vital Name Observation Time Observation Value Comments Source height 2022-02-04 14:30:00 70 [in_i] [facility] weight 2022-02-04 14:30:00 204 [lb_av] [facility] temperature 2022-02-04 14:30:00 98.2 [degF] [facility] bmi 2022-02-04 14:30:00 29.27 kg/m2 [facility] oximetry 2022-02-04 14:30:00 99 % [facility] respiratory rate 2022-02-04 14:30:00 18 /min Comm on [facility] blood pressure 2022-02-04 14:30:00 147 mm[Hg] [facility] blood pressure 2022-02-04 14:30:00 71 mm[Hg] Common [facility] - diastolic [facility] height 2021-12-02 17:45:00 70 [in_i] Common [facility] weight 2021-12-02 17:45:00 207.4 [lb_av] Common [facility] - [facility] temperature 2021-12-02 17:45:00 98.4 [degF] Common [facility] bmi 2021-12-02 17:45:00 29.76 kg/m2 Common [facility] oximetry 2021-12-02 17:45:00 98 % [facility] respiratory rate 2021-12-02 17:45:00 18 /min Comm [facility] blood pressure 2021-12-02 17:45:00 135 mm[Hg] Common [facility] - systolic [facility] blood pressure 2021-12-02 17:45:00 65 mm[Hg] Common [facility] - diastolic [facility] Systolic (mm Hg) 2022-04-21 16:40:00 John [facility] [place] Diastolic (mm Hg) 2022-04-21 16:40:00 [facility] [place] Heart Rate 2022-04-21 16:40:00 [facility] 2022-04-21 16:40:00 5 [ft_i] [facility] Weight 2022-04-21 16:40:00 [facility] BMI Calculated 2022-04-21 16:40:00 [facility] Systolic (mm Hg) 2022-01-21 20:12:00 John rial [facility] Diastolic (mm Hg) 2022-01-21 20:12:00 [facility] Heart Rate 2022-01-21 20:12:00 [facility] [place] Systolic (mm Hg) 2021-10-21 14:44:00 John rial [place] Diastolic (mm Hg) 2021-10-21 14:44:00 [facility] [place] Heart Rate 2021-10-21 14:44:00 [facility] Respitory Rate 2021-10-21 14:44:00 [facility] [place] Height 2021-10-21 14:44:00 170.18 cm [facility] Weight 2021-10-21 14:44:00 [facility] [place] BMI Calculated 2021-10-21 14:44:00 [facility] Systolic (mm Hg) 2021-07-23 15:00:00 John rial [place] Diastolic (mm Hg) 2021-07-23 15:00:00 [facility] Heart Rate 2021-07-23 15:00:00 [facility] Respitory Rate 2021-07-23 15:00:00 [facility] [place] Height 2021-07-23 15:00:00 170.18 cm [facility] Weight 2021-07-23 15:00:00 [facility] [place] BMI Calculated 2021-07-23 15:00:00 [facility] Weight 2021-06-05 14:28:00 [facility] BMI Calculated 2021-06-05 14:28:00 [facility] Systolic (mm Hg) 2021-06-05 14:28:00 John rial [facility] Diastolic (mm Hg) 2021-06-05 14:28:00 [facility] Heart Rate 2021-06-05 14:28:00 [facility] [place] Respitory Rate 2021-06-05 14:28:00 [facility] [place] Height 2021-06-05 14:28:00 170.18 cm [facility] [place] Systolic (mm Hg) 2021-04-24 16:11:00 John rial [facility] Diastolic (mm Hg) 2021-04-24 16:11:00 [facility] [place] Heart Rate 2021-04-24 16:11:00 [facility] [place] Respitory Rate 2021-04-24 16:11:00 [facility] [place] Height 2021-04-24 16:11:00 170.18 cm [facility] [place] Weight 2021-04-24 16:11:00 [facility] BMI Calculated 2021-04-24 16:11:00 [facility] [place] Systolic (mm Hg) 2021-03-12 16:17:00 John [facility] [place] Diastolic (mm Hg) 2021-03-12 16:17:00 [facility] [place] Heart Rate 2021-03-12 16:17:00 [facility] Respitory Rate 2021-03-12 16:17:00 [facility] Height 2021-03-12 16:17:00 170.18 cm [facility] Weight 2021-03-12 16:17:00 [facility] BMI Calculated 2021-03-12 16:17:00 [facility] Systolic (mm Hg) 2021-01-29 17:37:00 John rial [facility] Diastolic (mm Hg) 2021-01-29 17:37:00 [facility] [place] Heart Rate 2021-01-29 17:37:00 [facility] Respitory Rate 2021-01-29 17:37:00 [facility] Height 2021-01-29 17:37:00 172.72 cm [facility] [place] Weight 2021-01-29 17:37:00 [facility] [place] BMI Calculated 2021-01-29 17:37:00 [facility] [place] Systolic (mm Hg) 2020-12-30 15:32:00 John rial [facility] Diastolic (mm Hg) 2020-12-30 15:32:00 [facility] Heart Rate 2020-12-30 15:32:00 [facility] [place] Respitory Rate 2020-12-30 15:32:00 [facility] Height 2020-12-30 15:32:00 170.18 cm [facility] Weight 2020-12-30 15:32:00 [facility] BMI Calculated 2020-12-30 15:32:00 [facility] [place] Systolic (mm Hg) 2020-10-30 18:07:00 John rial [place] Diastolic (mm Hg) 2020-10-30 18:07:00 [facility] [place] Heart Rate 2020-10-30 18:07:00 [facility] Respitory Rate 2020-10-30 18:07:00 [facility] [place] Height 2020-10-30 18:07:00 170.18 cm [facility] [place] Weight 2020-10-30 18:07:00 [facility] [place] BMI Calculated 2020-10-30 18:07:00 [facility] [place] Systolic (mm Hg) 2020-07-10 15:47:00 John rial [facility] Diastolic (mm Hg) 2020-07-10 15:47:00 [facility] Heart Rate 2020-07-10 15:47:00 [facility] [place] Respitory Rate 2020-07-10 15:47:00 [facility] [place] Weight 2020-07-10 15:47:00 [facility] Systolic (mm Hg) 2020-01-11 16:41:00 John rial [place] Diastolic (mm Hg) 2020-01-11 16:41:00 Mem [facility] Heart Rate 2020-01-11 16:41:00 [facility] Respitory Rate 2020-01-11 16:41:00 [facility] [place] Height 2020-01-11 16:41:00 172.72 cm [facility] [place] Weight 2020-01-11 16:41:00 [facility] [place] BMI Calculated 2020-01-11 16:41:00 [facility] Systolic (mm Hg) 2019-10-11 15:47:00 John rial [place] Diastolic (mm Hg) 2019-10-11 15:47:00 [facility] [place] Heart Rate 2019-10-11 15:47:00 [facility] Respitory Rate 2019-10-11 15:47:00 [facility] Height 2019-10-11 15:47:00 172.72 cm [facility] Weight 2019-10-11 15:47:00 [facility] BMI Calculated 2019-10-11 15:47:00 [facility] [place] Systolic (mm Hg) 2019-07-11 15:38:00 John rial [place] Diastolic (mm Hg) 2019-07-11 15:38:00 [facility] [place] Height 2019-07-11 15:38:00 177.8 cm [facility] Weight 2019-07-11 15:38:00 [facility] BMI Calculated 2019-07-11 15:38:00 [facility] [place] Systolic (mm Hg) 2019-04-12 17:46:00 John rial [place] Diastolic (mm Hg) 2019-04-12 17:46:00 [facility] [place] Heart Rate 2019-04-12 17:46:00 [facility] [place] Respitory Rate 2019-04-12 17:46:00 [facility] [place] Height 2019-04-12 17:46:00 177.8 cm [facility] Weight 2019-04-12 17:46:00 [facility] BMI Calculated 2019-04-12 17:46:00 [facility] [place] Systolic (mm Hg) 2018-11-10 20:59:00 John rial [place] Diastolic (mm Hg) 2018-11-10 20:59:00 [facility] Heart Rate 2018-11-10 20:59:00 [facility] [place] Respitory Rate 2018-11-10 20:59:00 [facility] [place] Height 2018-11-10 20:59:00 177.8 cm [facility] [place] Weight 2018-11-10 20:59:00 [facility] BMI Calculated 2018-11-10 20:59:00 [facility] Weight 2018-09-22 20:53:00 [facility] BMI Calculated 2018-09-22 20:53:00 [facility] [place] Height 2018-09-22 20:53:00 170.18 cm [facility] Heart Rate 2018-09-22 20:53:00 [facility] [place] Respitory Rate 2018-09-22 20:53:00 [facility] Systolic (mm Hg) 2018-09-22 20:53:00 John rial [place] Diastolic (mm Hg) 2018-09-22 20:53:00 [facility] [place] BMI Calculated 2018-08-18 14:07:00 [facility] Weight 2018-08-18 14:07:00 [facility] [place] Height 2018-08-18 14:07:00 177.8 cm [facility] Respitory Rate 2018-08-18 14:07:00 [facility] Heart Rate 2018-08-18 14:07:00 [facility] Systolic (mm Hg) 2018-08-18 14:07:00 John rial [facility] Diastolic (mm Hg) 2018-08-18 14:07:00 [facility] [place] Height 2018-07-08 00:59:00 177.8 cm [facility] [place] BMI Calculated 2018-07-08 00:59:00 [facility] Weight 2018-07-08 00:59:00 [facility] [place] Respitory Rate 2018-07-08 00:59:00 [facility] [place] Heart Rate 2018-07-08 00:59:00 [facility] Systolic (mm Hg) 2018-07-08 00:59:00 John rial [place] Diastolic (mm Hg) 2018-07-08 00:59:00 [facility] [place] Procedures Procedure Date / Time Performed Performing Clinician Day álvarez [id number] 2022-08-20 00:00:00 CHAAB.01 [facility] [id number] 2022-08-16 00:00:00 CHAAB.01 [facility] [id number] 2022-08-16 00:00:00 CHAAB.01 [facility] [id number] 2022-08-16 00:00:00 CHAAB.01 [facility] [id number] 2022-08-03 00:00:00 RASSA [facility] [id number] 2022-08-03 00:00:00 RASSA [facility] [id number] 2022-08-03 00:00:00 RASSA [facility] [id number] 2022-08-02 00:00:00 CHAAB.01 [facility] [id number] 2022-08-02 00:00:00 CHAAB.01 [facility] [id number] 2022-08-02 00:00:00 CHAAB.01 [facility] [id number] 2022-08-02 00:00:00 CHAAB.01 [facility] [id number] 2022-08-02 00:00:00 CHAAB.01 [facility] [id number] 2022-08-02 00:00:00 CHAAB.01 [facility] [id number] 2022-08-02 00:00:00 DWEMA [facility] [id number] 2022-07-27 00:00:00 RASSA [facility] [id number] 2022-07-27 00:00:00 RASSA [facility] [id number] 2022-07-27 00:00:00 RASSA [facility] Cervical discectomy [facility] Plan of Care Planned Activity Planned Date Details Comments Source Instructions [facility] Encounters Start End Encounter Admission Attending Care Care Encounter Source Date/Time Date/Time Type Type Clinicians Facility Department ID 2022-03-25 Outpatient BEA Torre STLC [id number] 2 Common 07:27:00 Albino [id number] [facility] 2021-12-02 Outpatient Nicho, STLENINLC STLC [id number] 2 Common 17:04:01 Albino [id number] [facility] 2022-08-26 2022-08-26 Ambulatory MHIE MNA [id number] Memoria 15:30:00 15:30:00 Pre-Reg Neurology 26 l Sandra [place] 2022-08-26 2022-08-26 Outpatient MHIE MHIE [id number] Memoria 10:30:00 10:30:00 26 l [place] 2022-08-26 2022-08-26 Outpatient MHIE MHIE [id number] Memoria 10:30:00 10:30:00 26 l [place] 2022-08-26 2022-08-26 Outpatient FRED PetitSCHSONALI [id number] 10:30:00 10:30:00 Mario 26 [place] 2022-08-16 2022-08-25 Inpatient EM Calli, HCACL INTE.02 [id number] 12:01:00 18:28:00 Soraya 65 [facility] 2022-07-30 2022-08-09 Inpatient ROGER Loaiza, HCACL INTE.02 [id number] [facility] 08:27:00 16:50:00 Anthony 82 [facility] 2022-07-23 2022-07-23 Out[facility] [id number] [facility] 08:00:00 09:00:00 Anthony 41 [facility] 2022-04-21 2022-04-22 Outpatient MHIE MNA [id number] Memoria 16:30:00 05:59:59 Neurology 25 l [place] 2022-04-21 2022-04-22 Outpatient MHIE MNA [id number] Memoria 16:30:00 05:59:59 Neurology 25 l Sandra Jonas 2022-04-21 2022-04-21 Outpatient ESME PetitSCHSONALI MHMISCHER [id number] 10:30:00 23:59:59 Mario 25 [place] 2022-04-21 2022-04-21 Ambulatory MHIE MNA [id number] Memoria 20:15:00 20:15:00 Pre-Reg Neurology 24 l Sandra Jonas 2022-04-21 2022-04-21 Ambulatory MHIE MNA [id number] Memoria 20:15:00 20:15:00 Pre-Reg Neurology 24 l Sandra Jonas 2022-04-21 2022-04-21 Outpatient MHIE MHIE [id number] Memoria 14:15:00 14:15:00 24 l Pritesh 2022-04-21 2022-04-21 Outpatient Damaso MHMISCHER MHMISCHER [id number] 14:15:00 14:15:00 Mario 24 [place] 2022-04-21 2022-04-21 Outpatient MHIE MHIE [id number] Memoria 10:30:00 10:30:00 25 kwaku Jonas 2022-03-10 2022-03-10 OFFICE STLMLC STLMLC [id number] Co mmon 00:00:00 00:00:00 VISIT Spirit ESTAB PT - CHI LEVEL 1 [facility] 2022-03-03 2022-03-03 (TEL) STLMLC STLMLC [id number] Co mmon 00:00:00 00:00:00 Spirit - [facility]I [facility] 2022-02-04 2022-02-04 OFFICE STLMLC STLMLC [id number] Co mmon 00:00:00 00:00:00 VISIT [facility] ESTAB PT - CHI LEVEL 5 [facility] 2022-01-21 2022-01-22 Outpatient MHIE MNA [id number] Memoria 20:00:00 05:59:59 Neurology 23 l Sandra Jonas 2022-01-21 2022-01-22 Outpatient MHIE MNA [id number] Memoria 20:00:00 05:59:59 Neurology 23 l Sandra Jonas 2022-01-21 2022-01-21 Outpatient Damaso MHMISCHER MHMISCHER [id number] 14:00:00 23:59:59 Mario 23 [place] 2022-01-21 2022-01-21 Outpatient MHIE MHIE [id number] Memoria 14:00:00 14:00:00 23 l Pritesh 2021-12-02 2021-12-02 OFFICE [facility] [id number] Co mmon 00:00:00 00:00:00 VISIT Sigifredo ELIAS PT - CHI LEVEL 4 [facility] 2021-10-21 2021-10-22 Outpatient nullFlavo MNA [id number] Memoria 14:45:00 04:59:59 r Neurology 22 l Sandra Jonas 2021-10-21 2021-10-22 Outpatient nullFlavo MNA [id number] Memoria 14:45:00 04:59:59 r Neurology 22 l Sandra Jonas 2021-10-21 2021-10-[address] [id number] 09:45:00 23:59:59 Mario 22 [place] 2021-10-21 2021-10-21 Outpatient MAGDA MAN [id number] Memoria 09:45:00 09:45:00 22 kwaku Pritesh 2021-10-13 2021-10-13 Outpatient FOG_[place] AOSM AOSM [id number] Brenna 00:00:00 00:00:00 _Agata [id number] [facility] 2021-10-13 2021-10-13 Outpatient [place], AOSM AOSM [id number] 00:00:00 00:00:00 Casey Jacqueline [id number] 2021-10-13 2021-10-13 Casey A AOSM [place] - Ortho [id number] Brenna 00:00:00 00:00:00 Aleah Barrow MD: [id number] FOG_Ofc dic [facility] [place], [place] [id number] , Ph. [phone] 2021-07-23 2021-07-24 Outpatient nullFlavo MNA [id number] Memoria 14:45:00 04:59:59 r Neurology 21 l Sandra Jonas 2021-07-23 2021-07-24 Outpatient nullFlavo MNA [id number] Memoria 14:45:00 04:59:59 r Neurology 21 l Sandra Jonas 2021-07-23 2021-07-23 [id number] 09:45:00 23:59:59 Mario 21 [place] 2021-07-23 2021-07-23 Outpatient MHIE MHIE [id number] Memoria 09:45:00 09:45:00 21 l Pritesh 2021-07-18 2021-07-18 Outpatient FOG_[place] AOSM AOSM [id number] Brenna 00:00:00 00:00:00 _Manfred_ [id number] Orth o[facility] e 2021-06-05 2021-06-06 Outpatient nullFlavo MNA [id number] Memoria 14:30:00 04:59:59 r Neurology 20 l Sandra Aguileraann 2021-06-05 2021-06-06 Outpatient nullFlavo MNA [id number] Memoria 14:30:00 04:59:59 r Neurology 20 l Sandra Aguileraann 2021-06-05 2021-06-05 Outpatient FRED [facility]it [id number] 09:30:00 23:59:59 Mario 20 [place] 2021-06-05 2021-06-05 Outpatient MHIE IE [id number] Memoria 09:30:00 09:30:00 20 kwaku Jonas 2021-04-24 2021-04-25 Outpatient nullFlavo MNA [id number] Memoria 16:15:00 05:59:59 r Neurology 19 l Sandra Aguileraann 2021-04-24 2021-04-25 Outpatient nullFlavo MNA [id number] Memoria 16:15:00 05:59:59 r Neurology 19 l Sandra Aguileraann 2021-04-24 2021-04-24 Outpatient ESME PetitSCHER MISCHER [id number] 10:15:00 23:59:59 Mario 19 [place] 2021-04-24 2021-04-24 Outpatient MHIE IE [id number] Memoria 10:15:00 10:15:00 19 kwaku Pritesh 2021-03-12 2021-03-13 Outpatient nullFlavo MNA [id number] Memoria 16:15:00 05:59:59 r Neurology 18 l Sandra Jonas 2021-03-12 2021-03-13 Outpatient nullFlavo MNA [id number] Memoria 16:15:00 05:59:59 r Neurology 18 kwaku Jonas 2021-03-12 2021-03-12 Outpatient SILVIA [facility]CASCHER [facility] [id number] 10:15:00 23:59:59 Mario 18 [place] 2021-03-12 2021-03-12 Outpatient MHIE IE [id number] Memoria 10:15:00 10:15:00 18 kwaku Jonas 2021-01-29 2021-01-30 Outpatient nullFlavo MNA [id number] Memoria 17:30:00 05:59:59 r Neurology 17 kwaku Jonas 2021-01-29 2021-01-30 Outpatient nullFlavo MNA [id number] Memoria 17:30:00 05:59:59 r Neurology 17 l Sandra Jonas 2021-01-29 2021-01-29 [facility] [id number] 11:30:00 23:59:59 Mario 17 [place] 2021-01-29 2021-01-29 Outpatient MHIE IE [id number] Memoria 11:30:00 11:30:00 17 kwaku Jonas 2021-01-12 2021-01-12 Ambulatory nullFlavo MNA [id number] Memoria 15:45:00 15:45:00 Pre-Reg r Neurology 15 l Sandra Jonas 2021-01-12 2021-01-12 Ambulatory nullFlavo MNA [id number] Memoria 15:45:00 15:45:00 Pre-Reg r Neurology 15 l Sandra Jonas 2021-01-12 2021-01-12 Outpatient MHIE MHIE [id number] Memoria 09:45:00 09:45:00 15 kwaku Jonas 2021-01-12 2021-01-12 Outpatient SILVIA [facility]itCASCHER [facility] [id number] 09:45:00 09:45:00 Mario 15 [place] 2020-12-30 2020-12-31 Outpatient nullFlavo MNA [id number] Memoria 15:30:00 05:59:59 r Neurology 16 l Sandra Jonas 2020-12-30 2020-12-31 Outpatient nullFlavo MNA [id number] Memoria 15:30:00 05:59:59 r Neurology 16 l Sandra Jonas 2020-12-30 2020-12-30 Outpatient ESME [facility]SCHER [facility] [id number] 09:30:00 23:59:59 Mario 16 [place] 2020-12-30 2020-12-30 Outpatient MHIE IE [id number] Memoria 09:30:00 09:30:00 16 kwaku Jonas 2020-11-11 2020-11-11 Ambulatory nullFlavo MNA [id number] Memoria 15:00:00 15:00:00 Pre-Reg r Neurology 13 l Sandra Jonas 2020-11-11 2020-11-11 Ambulatory nullFlavo MNA [id number] Memoria 15:00:00 15:00:00 Pre-Reg r Neurology 13 l Sandra Jonas 2020-11-11 2020-11-11 Outpatient MHIE IE [id number] Memoria 10:00:00 10:00:00 13 kwaku Jonas 2020-11-11 2020-11-11 Outpatient ESME [facility]SCHER [facility] [id number] 10:00:00 10:00:00 Mario 13 [place] 2020-10-30 2020-10-31 Outpatient nullFlavo MNA [id number] Memoria 18:00:00 04:59:59 r Neurology 14 l Sandra Jonas 2020-10-30 2020-10-31 Outpatient nullFlavo MNA [id number] Memoria 18:00:00 04:59:59 r Neurology 14 l Sandra Jonas 2020-10-30 2020-10-30 Outpatient ES[facility]SCHER [facility] [id number] 13:00:00 23:59:59 Mario 14 [place] 2020-10-30 2020-10-30 Outpatient MHIE MHIE [id number] Memoria 13:00:00 13:00:00 14 kwaku Jonas 2020-07-10 2020-07-11 Outpatient nullFlavo MNA [id number] Memoria 15:30:00 04:59:59 r Neurology 12 l Sandra Jonas 2020-07-10 2020-07-11 Outpatient nullFlavo MNA [id number] Memoria 15:30:00 04:59:59 r Neurology 12 l Sandra Jonas 2020-07-10 2020-07-10 [facility] [id number] 10:30:00 23:59:59 Mario 12 [place] 2020-07-10 2020-07-10 Outpatient MHIE MHIE [id number] Memoria 10:30:00 10:30:00 12 kwaku Jonas 2020-01-11 2020-01-12 Outpatient nullFlavo MNA [id number] Memoria 16:30:00 05:59:59 r Neurology 11 l Sandra Jonas 2020-01-11 2020-01-12 Outpatient nullFlavo MNA [id number] Memoria 16:30:00 05:59:59 r Neurology 11 l Sandra [place] 2020-01-11 2020-01-11 [facility] [id number] 10:30:00 23:59:59 Mario 11 [place] 2020-01-11 2020-01-11 Outpatient MHIE MHIE [id number] Memoria 10:30:00 10:30:00 11 kwaku Pritesh 2019-10-11 2019-10-12 Outpatient nullFlavo MNA [id number] Memoria 15:45:00 04:59:59 r Neurology 10 l Sandra Pritesh 2019-10-11 2019-10-12 Outpatient nullFlavo MNA [id number] Memoria 15:45:00 04:59:59 r Neurology 10 l Sandra Jonas 2019-10-11 2019-10-11 [facility] [id number] 10:45:00 23:59:59 Mario 10 [place] 2019-10-11 2019-10-11 Ambulatory nullFlavo MNA [id number] Memoria 15:45:00 15:45:00 Pre-Reg r Neurology 09 l Sandra Jonas 2019-10-11 2019-10-11 Ambulatory nullFlavo MNA [id number] Memoria 15:45:00 15:45:00 Pre-Reg r Neurology 09 l Sandra Jonas 2019-10-11 2019-10-11 Outpatient MHIE IE [id number] Memoria 10:45:00 10:45:00 09 l [place] 2019-10-11 2019-10-11 Outpatient MHIE IE [id number] Memoria 10:45:00 10:45:00 10 l [place] 2019-10-11 2019-10-[address] [facility] [id number] 10:45:00 10:45:00 Mario 09 [place] 2019-07-11 2019-07-12 Outpatient nullFlavo MNA [id number] Memoria 15:30:00 04:59:59 r Neurology 08 l Sandra [place] 2019-07-11 2019-07-12 Outpatient nullFlavo MNA [id number] Memoria 15:30:00 04:59:59 r Neurology 08 l Sandra [place] 2019-07-11 2019-07-11 [facility] [id number] 10:30:00 23:59:59 Mario 08 [place] 2019-07-11 2019-07-11 Outpatient MHIE IE [id number] Memoria 10:30:00 10:30:00 08 kwaku [place] 2019-04-12 2019-04-13 Outpatient nullFlavo MNA [id number] Memoria 17:45:00 05:59:59 r Neurology 07 l Sandra [place] 2019-04-12 2019-04-13 Outpatient nullFlavo MNA [id number] Memoria 17:45:00 05:59:59 r Neurology 07 l Sandra [place] 2019-04-12 2019-04-12 [facility] [id number] 11:45:00 23:59:59 Mario 07 [place] 2019-04-12 2019-04-12 Ambulatory nullFlavo MNA [id number] Memoria 16:45:00 16:45:00 Pre-Reg r Neurology 06 l Sandra [place] 2019-04-12 2019-04-12 Ambulatory nullFlavo MNA [id number] Memoria 16:45:00 16:45:00 Pre-Reg r Neurology 06 l Sandra [place] 2019-04-12 2019-04-12 Outpatient MHIE IE [id number] Memoria 11:45:00 11:45:00 07 kwaku [place] 2019-04-12 2019-04-[address] [facility] [id number] 10:45:00 10:45:00 Mario Ortiz [place] 2019-03-07 2019-03-07 Outpatient MHIE MHIE [id number] Memoria 11:00:00 11:00:00 06 kwaku [place] 2018-12-22 2018-12-22 Ambulatory nullFlavo MNA [id number] Memoria 20:45:00 20:45:00 Pre-Reg r Neurology 05 l [place] 2018-12-22 2018-12-22 Ambulatory nullFlavo MNA [id number] Memoria 20:45:00 20:45:00 Pre-Reg r Neurology 05 l [place] 2018-12-22 2018-12-22 Outpatient MHIE MHIE [id number] Memoria 15:45:00 15:45:00 05 kwaku [place] 2018-12-22 2018-12-22 [facility] [id number] 15:45:00 15:45:00 Maroi Kiana [place] 2018-11-10 2018-11-11 Outpatient nullFlavo MNA [id number] Memoria 21:00:00 04:59:59 r Neurology 04 kwaku [place] Pritesh 2018-11-10 2018-11-11 Outpatient nullFlavo MNA [id number] Memoria 21:00:00 04:59:59 r Neurology 04 kwaku [place] 2018-11-10 2018-11-10 [facility] [facility] [id number] 16:00:00 23:59:59 Mario Brennan Fisher 2018-11-10 2018-11-10 Outpatient MHIE MHIE [id number] Memoria 16:00:00 16:00:00 04 kwaku [place] 2018-11-03 2018-11-03 Ambulatory nullFlavo MNA [id number] Memoria 20:00:00 20:00:00 Pre-Reg r Neurology 03 l [place] Pritesh 2018-11-03 2018-11-03 Ambulatory nullFlavo MNA [id number] Memoria 20:00:00 20:00:00 Pre-Reg r Neurology 03 l Sandra [place] 2018-11-03 2018-11-03 Outpatient MHIE MHIE [id number] Memoria 15:00:00 15:00:00 03 kwaku [place] 2018-11-03 2018-11-03 Outpatient SILVIA PetitCASCHER [facility] 457 [id number] 15:00:00 15:00:00 Mario 03 Phillip 2018-09-22 2018-09-23 Outpatient nullFlavo MNA [id number] Memoria 20:45:00 04:59:59 r Neurology 02 l Sandra Pritesh 2018-09-22 2018-09-23 Outpatient nullFlavo MNA [id number] Memoria 20:45:00 04:59:59 [place] 02 [place] 2018-09-22 2018-09-22 [facility]patient [facility] 307 [id number] 15:45:00 23:59:59 Mario 02 Phillip 2018-09-22 2018-09-22 Outpatient MHIE MHIE [id number] Memoria 15:45:00 15:45:00 02 kwaku Pritesh 2018-08-18 2018-08-19 Outpatient nullFlavo MNA [id number] Memoria 14:00:00 04:59:59 r Neurology 01 l [place] Pritesh 2018-08-18 2018-08-19 Outpatient nullFlavo MNA [id number] Memoria 14:00:00 04:59:59 r Neurology 01 l [place] Pritesh 2018-08-18 2018-08-18 Outpatient ESME PetitSCHER [facility] 501 [id number] 09:00:00 23:59:59 Mario Phillip 2018-08-18 2018-08-18 Outpatient MHIE MHIE [id number] Memoria 09:00:00 09:00:00 01 kwaku Pritesh 2018-07-07 2018-07-08 Outpatient nullFlavo MNA [id number] Memoria 14:00:00 04:59:59 r Neurology 00 l [place] Pritesh 2018-07-07 2018-07-08 Outpatient nullFlavo MNA [id number] Memoria 14:00:00 04:59:59 r Neurology 00 l [place] 2018-07-07 2018-07-07 Outpatient [facility] 122 [id number] 09:00:00 23:59:59 Mario 00 Phillip 2018-07-07 2018-07-07 [facility] [id number] Memoria 09:00:00 09:00:00 00 kwaku Jonas Results Test Description Test Time Test Comments Results Result Comments Source BASIC METABOLIC PANEL 2022-08-25 05:00:00 Test Item Value Reference Range Interpretation Comme nts SODIUM (test code = NA) 137 mEq/L 134-147 N POTASSIUM (test code = K) 4.1 mEq/L 3.4-5.0 N CHLORIDE (test code = CL) 105 mEq/L 100-108 N CARBON DIOXIDE (test code = 27 mEq/l 21-33 N CO2) ANION GAP (test code = GAP) 9 0-20 N GLUCOSE (test code = GLU) 83 mg/dL 70-110 N BLOOD UREA NITROGEN (test code 11 mg/dL 7-18 N = BUN) GLOMERULAR FILTRATION RATE 96.4 80-90 H T he Glomerular Filtration Rate is (test code = GFR) a calculat ed parameterbased on serum Creatinin e, patient age and sex. GFR values less than 60 mL/min/1.73 squ are meters are indicative ofCh ronic Kidney Disease. Values less than 15 mL/min/1.73squa re meters indicate Kidney failure. The calculation forGFR is based on the CKD-EPI (2020) calculat ion. This formulais race indifferen t and is the recommended for deborah for GFRby the National Kidney Foundation for Adults.The GFR will not calculate if the sex is u nknown or if thepatient's ag e is <18 years. CREATININE (test code = CREAT) 0.8 mg/dL 0.6-1.3 N CALCIUM (test code = CA) 8.6 mg/dL 8.0-10.5 N [id number] 05:00:00 Test Item Value Reference Range Interpretation Comments MAGNESIUM (test code = MAG) 2.23 mg/dL 1.80-2.40 N CBC W/AUTO [id number] 04:54:00 Test Item Value Reference Range Interpretation Comments WHITE BLOOD CELL (test code = 9.2 x10 3/uL 4.5-11.0 N WBC) RED BLOOD CELL (test code = 3.27 x10 6/uL 4.00-5.60 L RBC) HEMOGLOBIN (test code = HGB) 9.5 g/dL 12.5-16.9 L HEMATOCRIT (test code = HCT) 29.7 % 37.5-50.7 L MEAN CELL VOLUME (test code = 90.8 fL 81.0-99.0 N MCV) MEAN CELL HGB (test code = MCH) 29.1 pg 27.0-33.0 N MEAN CELL HGB CONCETRATION 32.0 g/dL 33.0-37.0 L (test code = MCHC) RED CELL DISTRIBUTION WIDTH CV 14.7 % 11.5-14.5 H (test code = RDW) RED CELL DISTRIBUTION WIDTH SD 49.4 fL 37.0-54.0 N (test code = RDW-SD) PLATELET COUNT (test code = 468 x10 3/uL 150-400 H PLT) MEAN PLATELET VOLUME (test code 10.0 fL 7.0-9.0 H = MPV) NEUTROPHIL % (test code = NT%) 59.0 % 56.0-77.0 N IMMATURE GRANULOCYTE % (test 0.5 % 0.0-2.0 N code = IG%) LYMPHOCYTE % (test code = LY%) 24.6 % 14.0-32.0 N MONOCYTE % (test code = MO%) 11.8 % 4.8-9.0 H EOSINOPHIL % (test code = EO%) 3.4 % 0.3-3.7 N BASOPHIL % (test code = BA%) 0.7 % 0.0-2.0 N NUCLEATED RBC % (test code = 0.0 % 0-0 N NRBC%) NEUTROPHIL # (test code = NT#) 5.40 x10 3/uL 2.0-7.6 N IMMATURE GRANULOCYTE # (test 0.05 x10 3/uL 0.00-0.03 H code = IG#) LYMPHOCYTE # (test code = LY#) 2.25 x10 3/uL 1.0-3.8 N MONOCYTE # (test code = MO#) 1.08 x10 3/uL 0.1-0.8 H EOSINOPHIL # (test code = EO#) 0.31 x10 3/uL 0.0-0.2 H BASOPHIL # (test code = BA#) 0.06 x10 3/uL 0.0-0.2 N NUCLEATED RBC # (test code = 0.00 x10 3/uL 0.0-0.1 N NRBC#) MANUAL DIFF REQUIRED (test code NO = MDIFF) BASIC METABOLIC [id number] 08:19:00 Test Item Value Reference Range Interpretation Comments SODIUM (test code = 138 mEq/L 134-147 N NA) POTASSIUM (test code 4.1 mEq/L 3.4-5.0 N = K) CHLORIDE (test code 106 mEq/L 100-108 N = CL) CARBON DIOXIDE (test 24 mEq/l 21-33 N code = CO2) ANION GAP (test code 12 0-20 N = GAP) GLUCOSE (test code = 82 mg/dL 70-110 N GLU) BLOOD UREA NITROGEN 9 mg/dL 7-18 N (test code = BUN) GLOMERULAR 93.0 80-90 H The Glomerular FILTRATION RATE Filtration R ate is a (test code = GFR) calculated parameterbased on serum Creatinine, pat ient age and sex. GFR va luesless than 60 mL/min/ 1.73 square meters a re indicative ofCh ronic Kidney Disease. Values less than 15 mL/min/1.73squa re meters indicate Kidney failure. The calculation forGFR is based on the CKD-EPI (2020) calculat ion. This formulais race indifferent and is the recommended for deborah for GFRby the [facility] on for Adults.The GFR will not calculate if th e sex is unknown or if thepatient's ag e is <18 years. CREATININE (test 0.9 mg/dL 0.6-1.3 N code = CREAT) CALCIUM (test code = 9.0 mg/dL 8.0-10.5 N CA) [id number] 08:19:00 Test Item Value Reference Range Interpretation Comments MAGNESIUM (test code = MAG) 1.98 mg/dL 1.80-2.40 N CBC W/AUTO [id number] 05:00:00 Test Item Value Reference Range Interpretation Comments WHITE BLOOD CELL (test code = 9.4 x10 3/uL 4.5-11.0 N WBC) RED BLOOD CELL (test code = 3.26 x10 6/uL 4.00-5.60 L RBC) HEMOGLOBIN (test code = HGB) 9.6 g/dL 12.5-16.9 L HEMATOCRIT (test code = HCT) 29.6 % 37.5-50.7 L MEAN CELL VOLUME (test code = 90.8 fL 81.0-99.0 N MCV) MEAN CELL HGB (test code = MCH) 29.4 pg 27.0-33.0 N MEAN CELL HGB CONCETRATION 32.4 g/dL 33.0-37.0 L (test code = MCHC) RED CELL DISTRIBUTION WIDTH CV 14.7 % 11.5-14.5 H (test code = RDW) RED CELL DISTRIBUTION WIDTH SD 49.1 fL 37.0-54.0 N (test code = RDW-SD) PLATELET COUNT (test code = 531 x10 3/uL 150-400 H PLT) MEAN PLATELET VOLUME (test code 10.1 fL 7.0-9.0 H = MPV) NEUTROPHIL % (test code = NT%) 60.3 % 56.0-77.0 N IMMATURE GRANULOCYTE % (test 0.5 % 0.0-2.0 N code = IG%) LYMPHOCYTE % (test code = LY%) 23.2 % 14.0-32.0 N MONOCYTE % (test code = MO%) 12.2 % 4.8-9.0 H EOSINOPHIL % (test code = EO%) 3.3 % 0.3-3.7 N BASOPHIL % (test code = BA%) 0.5 % 0.0-2.0 N NUCLEATED RBC % (test code = 0.0 % 0-0 N NRBC%) NEUTROPHIL # (test code = NT#) 5.67 x10 3/uL 2.0-7.6 N IMMATURE GRANULOCYTE # (test 0.05 x10 3/uL 0.00-0.03 H code = IG#) LYMPHOCYTE # (test code = LY#) 2.18 x10 3/uL 1.0-3.8 N MONOCYTE # (test code = MO#) 1.15 x10 3/uL 0.1-0.8 H EOSINOPHIL # (test code = EO#) 0.31 x10 3/uL 0.0-0.2 H BASOPHIL # (test code = BA#) 0.05 x10 3/uL 0.0-0.2 N NUCLEATED RBC # (test code = 0.00 x10 3/uL 0.0-0.1 N NRBC#) MANUAL DIFF REQUIRED (test code NO = MDIFF) - XR CHEST 1 [id number] 00:00:00 [facility] 1955 Sex: M FAX: Ludin John [phone] [place]: St: ADM FAX: Albino Castillo MD [phone] FAX: Rosalind Lyles [facility] [phone] Name: MARY DALY [facility] : 1955 Age/S: 66/M [address] [place] [address] Unit #: [id number] Loc: G.3353 [place] [address] Phys: Rosalind Mendez Physic Acct: [id number] Dis Date: Status: ADM IN PHONE #: [phone] Exam Date: 08/24/2022 0651 FAX #: [phone] Reason: S/P CABG, R/O EFFUSION EXAMS: CPT CODE: [id number] XR CHEST 1 V [id number] PROCEDURE INFORMATION: Exam: XR Chest Exam date and time: 08/24/2022 5:54 AM Age: 66 years old Clinical indication: Other: S/P cabg, R/O effusion TECHNIQUE: Imaging protocol: Radiologic exam of the chest. Views: 1 view. COMPARISON: CR XR CHEST 1V 08/22/2022 7:21 AM FINDINGS: Tubes, catheters and devices: Right arm PICC is demonstrated. The catheter tip overlies the expected SVC region. Plate and screws overlie the midline lower cervical spine. Surgical clips overlie the mediastinum. Lungs: Mild bilateral perihilar and basilar interstitial lung opacities, suggesting pulmonary edema versus infiltrates. The peripheral lungs are otherwise clear. No consolidation. Lung volumes are decreased. Pleural spaces: No pleural effusion. No pneumothorax. Heart/Mediastinum: Coronary artery calcifications identified. Cardiac silhouette appears ieue-ac-hsnnfgfnga enlarged. Bones/joints: Sternotomy wires, hardware is demonstrated. Generalized bony degenerative changes. IMPRESSION: 1. Hlze-hr-qsltsimnre enlarged cardiac silhouette. 2. Mild interstitial pulmonary edema versus infiltrates. at 0734 Reported and signed by: Oracio Stoner M.D. CC: Ludin Mccurdy MD; Albino Torre MD; Rosalind Mendez Technologist: RT Lenore(Katherine) Trnscrd Date/Time/By: 08/24/2022 (0734) : By: [email or web address] Orig Print D/T: S: 08/24/2022 (0734) PAGE 1 Signed ReportCBC W/AUTO [id number] 06:20:00 Test Item Value Reference Range Interpretation Comments WHITE BLOOD CELL (test code = 10.6 x10 3/uL 4.5-11.0 N WBC) RED BLOOD CELL (test code = 3.26 x10 6/uL 4.00-5.60 L RBC) HEMOGLOBIN (test code = HGB) 9.6 g/dL 12.5-16.9 L HEMATOCRIT (test code = HCT) 29.4 % 37.5-50.7 L MEAN CELL VOLUME (test code = 90.2 fL 81.0-99.0 N MCV) MEAN CELL HGB (test code = MCH) 29.4 pg 27.0-33.0 N MEAN CELL HGB CONCETRATION 32.7 g/dL 33.0-37.0 L (test code = MCHC) RED CELL DISTRIBUTION WIDTH CV 14.7 % 11.5-14.5 H (test code = RDW) RED CELL DISTRIBUTION WIDTH SD 49.1 fL 37.0-54.0 N (test code = RDW-SD) PLATELET COUNT (test code = 568 x10 3/uL 150-400 H PLT) MEAN PLATELET VOLUME (test code 9.7 fL 7.0-9.0 H = MPV) NEUTROPHIL % (test code = NT%) 64.2 % 56.0-77.0 N IMMATURE GRANULOCYTE % (test 0.6 % 0.0-2.0 N code = IG%) LYMPHOCYTE % (test code = LY%) 21.3 % 14.0-32.0 N MONOCYTE % (test code = MO%) 11.0 % 4.8-9.0 H EOSINOPHIL % (test code = EO%) 2.4 % 0.3-3.7 N BASOPHIL % (test code = BA%) 0.5 % 0.0-2.0 N NUCLEATED RBC % (test code = 0.0 % 0-0 N NRBC%) NEUTROPHIL # (test code = NT#) 6.83 x10 3/uL 2.0-7.6 N IMMATURE GRANULOCYTE # (test 0.06 x10 3/uL 0.00-0.03 H code = IG#) LYMPHOCYTE # (test code = LY#) 2.26 x10 3/uL 1.0-3.8 N MONOCYTE # (test code = MO#) 1.17 x10 3/uL 0.1-0.8 H EOSINOPHIL # (test code = EO#) 0.26 x10 3/uL 0.0-0.2 H BASOPHIL # (test code = BA#) 0.05 x10 3/uL 0.0-0.2 N NUCLEATED RBC # (test code = 0.00 x10 3/uL 0.0-0.1 N NRBC#) MANUAL DIFF REQUIRED (test code NO = MDIFF) BASIC METABOLIC [id number] 05:56:00 Test Item Value Reference Range Interpretation Comments SODIUM (test code = 137 mEq/L 134-147 N NA) POTASSIUM (test code 4.0 mEq/L 3.4-5.0 N = K) CHLORIDE (test code 106 mEq/L 100-108 N = CL) CARBON DIOXIDE (test 27 mEq/l 21-33 N code = CO2) ANION GAP (test code 8 0-20 N = GAP) GLUCOSE (test code = 93 mg/dL 70-110 N GLU) BLOOD UREA NITROGEN 10 mg/dL 7-18 N (test code = BUN) GLOMERULAR 96.4 80-90 H The Glomerular FILTRATION RATE Filtration R ate is a (test code = GFR) calculated parameterbased on serum Creatinine, pat ient age and sex. GFR va luesless than 60 mL/min/ 1.73 square meters a re indicative ofCh ronic Kidney Disease. Values less than 15 mL/min/1.73squa re meters indicate Kidney failure. The calculation forGFR is based on the CKD-EPI (2020) calculat ion. This formulais race indifferent and is the recommended for deborah for GFRby the [facility] on for Adults.The GFR will not calculate if th e sex is unknown or if thepatient's ag e is <18 years. CREATININE (test 0.8 mg/dL 0.6-1.3 N code = CREAT) CALCIUM (test code = 8.7 mg/dL 8.0-10.5 N CA) [id number] 05:56:00 Test Item Value Reference Range Interpretation Comments MAGNESIUM (test code = MAG) 1.93 mg/dL 1.80-2.40 N CBC W/AUTO [id number] 04:28:00 Test Item Value Reference Range Interpretation Comments WHITE BLOOD CELL (test code = 12.7 x10 3/uL 4.5-11.0 H WBC) RED BLOOD CELL (test code = 3.33 x10 6/uL 4.00-5.60 L RBC) HEMOGLOBIN (test code = HGB) 9.6 g/dL 12.5-16.9 L HEMATOCRIT (test code = HCT) 30.4 % 37.5-50.7 L MEAN CELL VOLUME (test code = 91.3 fL 81.0-99.0 N MCV) MEAN CELL HGB (test code = MCH) 28.8 pg 27.0-33.0 N MEAN CELL HGB CONCETRATION 31.6 g/dL 33.0-37.0 L (test code = MCHC) RED CELL DISTRIBUTION WIDTH CV 14.9 % 11.5-14.5 H (test code = RDW) RED CELL DISTRIBUTION WIDTH SD 50.0 fL 37.0-54.0 N (test code = RDW-SD) PLATELET COUNT (test code = 653 x10 3/uL 150-400 H PLT) MEAN PLATELET VOLUME (test code 9.9 fL 7.0-9.0 H = MPV) NEUTROPHIL % (test code = NT%) 68.8 % 56.0-77.0 N IMMATURE GRANULOCYTE % (test 0.7 % 0.0-2.0 N code = IG%) LYMPHOCYTE % (test code = LY%) 18.1 % 14.0-32.0 N MONOCYTE % (test code = MO%) 9.7 % 4.8-9.0 H EOSINOPHIL % (test code = EO%) 2.4 % 0.3-3.7 N BASOPHIL % (test code = BA%) 0.3 % 0.0-2.0 N NUCLEATED RBC % (test code = 0.0 % 0-0 N NRBC%) NEUTROPHIL # (test code = NT#) 8.74 x10 3/uL 2.0-7.6 H IMMATURE GRANULOCYTE # (test 0.09 x10 3/uL 0.00-0.03 H code = IG#) LYMPHOCYTE # (test code = LY#) 2.30 x10 3/uL 1.0-3.8 N MONOCYTE # (test code = MO#) 1.23 x10 3/uL 0.1-0.8 H EOSINOPHIL # (test code = EO#) 0.31 x10 3/uL 0.0-0.2 H BASOPHIL # (test code = BA#) 0.04 x10 3/uL 0.0-0.2 N NUCLEATED RBC # (test code = 0.00 x10 3/uL 0.0-0.1 N NRBC#) MANUAL DIFF REQUIRED (test code NO = MDIFF) BASIC METABOLIC [id number] 04:12:00 Test Item Value Reference Range Interpretation Comments SODIUM (test code = 139 mEq/L 134-147 N NA) POTASSIUM (test code 4.2 mEq/L 3.4-5.0 N = K) CHLORIDE (test code 106 mEq/L 100-108 N = CL) CARBON DIOXIDE (test 24 mEq/l 21-33 N code = CO2) ANION GAP (test code 13 0-20 N = GAP) GLUCOSE (test code = 97 mg/dL 70-110 N GLU) BLOOD UREA NITROGEN 7 mg/dL 7-18 N (test code = BUN) GLOMERULAR 96.4 80-90 H The Glomerular FILTRATION RATE Filtration R ate is a (test code = GFR) calculated parameterbased on serum Creatinine, pat ient age and sex. GFR va luesless than 60 mL/min/ 1.73 square meters a re indicative ofCh ronic Kidney Disease. Values less than 15 mL/min/1.73squa re meters indicate Kidney failure. The calculation forGFR is based on the CKD-EPI (2020) calculat ion. This formulais race indifferent and is the recommended for deborah for GFRby the [facility] on for Adults.The GFR will not calculate if th e sex is unknown or if thepatient's ag e is <18 years. CREATININE (test 0.8 mg/dL 0.6-1.3 N code = CREAT) CALCIUM (test code = 9.1 mg/dL 8.0-10.5 N CA) [id number] 04:12:00 Test Item Value Reference Range Interpretation Comments MAGNESIUM (test code = MAG) 1.98 mg/dL 1.80-2.40 N - XR CHEST 1 [id number] 00:00:[facility] 1955 Sex: M FAX: Ludin John [phone] [place]: St: ADM FAX: Albino Castillo MD [phone] --------- Name: MARY DALY : 1955 Age/S: 66/M [address] [place] [address] Bl Unit #: [id number] Loc: Robbie3 [place] [address] Phys: Ludin Mccurdy MD Acct: [id number] Dis Date: Status: ADM IN PHONE #: [phone] Date: 08/22/2022802 FAX #: [phone] Reason: Cardiac Surgery Post Op EXAMS: CPT CODE: [id number] XR CHEST 1 V 11415 PROCEDURE INFORMATION: Exam: XR Chest Exam date and time: 08/22/2022 7:21 AMAge: 66 years old Clinical indication: Other: Cardiac surgery post op TECHNIQUE: Imaging protocol: Radiologic exam of the chest. Views: 1 view. COMPARISON: CR XR CHEST 1V 08/21/2022 7:19 AM FINDINGS: Tub es, catheters and devices: Stable right PICC line. Lungs: The bilateral lung opacities are grossly stable. Pleural spaces: Question small left pleural effusion. No definite pneumothorax. Heart/Mediastinum: The enlarged heart size is stable. Vasculature: Atherosclerotic calcifications. Bones/joints: Stable. Median sternotomy wires. IMPRESSION: Grossly stable exam. at 0821 Reported and signed by: Allan Diana M.D. CC: Ludin Mccurdy MD; Albino Torre MD Technologist: RT Ryanne(R) Trnscrd Date/Time/By: 08/22/2022 (820) : By: [email or web address] Orig Print D/T: S: 08/22/2022 (820) PAGE 1 Signed ReportBASIC METABOLIC PANEL 2022-08-21 04:57:00 Test Item Value Reference Range Interpretation Comments SODIUM (test code = 138 mEq/L 134-147 N NA) POTASSIUM (test code 4.2 mEq/L 3.4-5.0 N = K) CHLORIDE (test code 106 mEq/L 100-108 N = CL) CARBON DIOXIDE (test 26 mEq/l 21-33 N code = CO2) ANION GAP (test code 10 0-20 N = GAP) GLUCOSE (test code = 100 mg/dL 70-110 N GLU) BLOOD UREA NITROGEN 7 mg/dL 7-18 N (test code = BUN) GLOMERULAR 96.4 80-90 H The Glomerular FILTRATION RATE Filtration R ate is a (test code = GFR) calculated parameterbased on serum Creatinine, pat ient age and sex. GFR va luesless than 60 mL/min/ 1.73 square meters a re indicative ofCh ronic Kidney Disease. Values less than 15 mL/min/1.73squa re meters indicate Kidney failure. The calculation forGFR is based on the CKD-EPI (2020) calculat ion. This formulais race indifferent and is the recommended for deborah for GFRby the Natio n[facility] Kidney Foundati on for Adults.The GFR will not calculate if th e sex is unknown or if thepatient's ag e is <18 years. CREATININE (test 0.8 mg/dL 0.6-1.3 N code = CREAT) CALCIUM (test code = 8.8 mg/dL 8.0-10.5 N CA) [id number] 04:57:00 Test Item Value Reference Range Interpretation Comments MAGNESIUM (test code = MAG) 2.07 mg/dL 1.80-2.40 N CBC W/AUTO [id number] 04:31:00 Test Item Value Reference Range Interpretation Comments WHITE BLOOD CELL (test code = 10.5 x10 3/uL 4.5-11.0 N WBC) RED BLOOD CELL (test code = 3.25 x10 6/uL 4.00-5.60 L RBC) HEMOGLOBIN (test code = HGB) 9.7 g/dL 12.5-16.9 L HEMATOCRIT (test code = HCT) 29.8 % 37.5-50.7 L MEAN CELL VOLUME (test code = 91.7 fL 81.0-99.0 N MCV) MEAN CELL HGB (test code = MCH) 29.8 pg 27.0-33.0 N MEAN CELL HGB CONCETRATION 32.6 g/dL 33.0-37.0 L (test code = MCHC) RED CELL DISTRIBUTION WIDTH CV 14.8 % 11.5-14.5 H (test code = RDW) RED CELL DISTRIBUTION WIDTH SD 49.6 fL 37.0-54.0 N (test code = RDW-SD) PLATELET COUNT (test code = 630 x10 3/uL 150-400 H PLT) MEAN PLATELET VOLUME (test code 9.7 fL 7.0-9.0 H = MPV) NEUTROPHIL % (test code = NT%) 64.5 % 56.0-77.0 N IMMATURE GRANULOCYTE % (test 0.8 % 0.0-2.0 N code = IG%) LYMPHOCYTE % (test code = LY%) 20.2 % 14.0-32.0 N MONOCYTE % (test code = MO%) 10.0 % 4.8-9.0 H EOSINOPHIL % (test code = EO%) 3.8 % 0.3-3.7 H BASOPHIL % (test code = BA%) 0.7 % 0.0-2.0 N NUCLEATED RBC % (test code = 0.0 % 0-0 N NRBC%) NEUTROPHIL # (test code = NT#) 6.75 x10 3/uL 2.0-7.6 N IMMATURE GRANULOCYTE # (test 0.08 x10 3/uL 0.00-0.03 H code = IG#) LYMPHOCYTE # (test code = LY#) 2.11 x10 3/uL 1.0-3.8 N MONOCYTE # (test code = MO#) 1.05 x10 3/uL 0.1-0.8 H EOSINOPHIL # (test code = EO#) 0.40 x10 3/uL 0.0-0.2 H BASOPHIL # (test code = BA#) 0.07 x10 3/uL 0.0-0.2 N NUCLEATED RBC # (test code = 0.00 x10 3/uL 0.0-0.1 N NRBC#) MANUAL DIFF REQUIRED (test code NO = MDIFF) - XR CHEST 1 [id number] 00:00:00 [facility] 1955 Sex: M FAX: Ludin John [phone] [place]: St: [facility] FAX: Albino Castillo MD [phone] Name: MARY DALY [facility] : 1955 Age/S: 66/M [address] [place] [address] Unit #: [id number] Loc: G.3353 [place] [address] Phys: Ludin Mccurdy MD Acct: [id number] Dis Date: Status: ADM IN PHONE #: [phone] Exam Date: 08/21/2022814 FAX #: [phone] Reason: Cardiac Surgery Post Op EXAMS: CPT CODE: [id number] XR CHEST 1 V [id number] PROCEDURE INFORMATION: Exam: XR Chest Exam date and time: 08/21/2022 7:19 AM Age: 66 years old Clinical indication: Other: Cardiac surgery post op TECHNIQUE: Imaging protocol: Radiologic exam of the chest. Views: 1 view. COMPARISON: CR XR CHEST 1V 08/20/2022 6:01 AM FINDINGS: Lungs:Normal lung volumes. No consolidation. A right-sided PICC line has been placed with tip in the region of the mid SVC. Pleural spaces: Unremarkable. No pleural effusion. No pneumothorax. Heart/Mediastinum: The cardiac silhouette is enlarged. Previous midline sternotomy. Bones/joints: Unremarkable. IMPRESSION: No acute cardiopulmonary findings. Electronically Signed by Remedios Santiago 08/21/2022 at 0835 Reported and signed by: Krishna Santiago M.D. CC: Ludin Mccurdy MD; Albino Torre MD Technologist: Issa Bey RT(R); Muriel Jacobs RT(R) Trnscrd Date/Time/By: 08/21/2022 (0835) : By: [email or web address] Orig Print D/T: S: 08/21/2022 (0846) PAGE 1 Signed ReportCBC W/AUTO [id number] 07:50:00 Test Item Value Reference Range Interpretation Comments WHITE BLOOD CELL (test code = 10.5 x10 3/uL 4.5-11.0 N WBC) RED BLOOD CELL (test code = 3.38 x10 6/uL 4.00-5.60 L RBC) HEMOGLOBIN (test code = HGB) 10.0 g/dL 12.5-16.9 L HEMATOCRIT (test code = HCT) 30.7 % 37.5-50.7 L MEAN CELL VOLUME (test code = 90.8 fL 81.0-99.0 N MCV) MEAN CELL HGB (test code = MCH) 29.6 pg 27.0-33.0 N MEAN CELL HGB CONCETRATION 32.6 g/dL 33.0-37.0 L (test code = MCHC) RED CELL DISTRIBUTION WIDTH CV 15.1 % 11.5-14.5 H (test code = RDW) RED CELL DISTRIBUTION WIDTH SD 50.4 fL 37.0-54.0 N (test code = RDW-SD) PLATELET COUNT (test code = 710 x10 3/uL 150-400 H PLT) MEAN PLATELET VOLUME (test code 10.0 fL 7.0-9.0 H = MPV) NEUTROPHIL % (test code = NT%) 60.1 % 56.0-77.0 N IMMATURE GRANULOCYTE % (test 0.8 % 0.0-2.0 N code = IG%) LYMPHOCYTE % (test code = LY%) 23.0 % 14.0-32.0 N MONOCYTE % (test code = MO%) 12.2 % 4.8-9.0 H EOSINOPHIL % (test code = EO%) 3.3 % 0.3-3.7 N BASOPHIL % (test code = BA%) 0.6 % 0.0-2.0 N NUCLEATED RBC % (test code = 0.0 % 0-0 N NRBC%) NEUTROPHIL # (test code = NT#) 6.29 x10 3/uL 2.0-7.6 N IMMATURE GRANULOCYTE # (test 0.08 x10 3/uL 0.00-0.03 H code = IG#) LYMPHOCYTE # (test code = LY#) 2.41 x10 3/uL 1.0-3.8 N MONOCYTE # (test code = MO#) 1.28 x10 3/uL 0.1-0.8 H EOSINOPHIL # (test code = EO#) 0.35 x10 3/uL 0.0-0.2 H BASOPHIL # (test code = BA#) 0.06 x10 3/uL 0.0-0.2 N NUCLEATED RBC # (test code = 0.00 x10 3/uL 0.0-0.1 N NRBC#) MANUAL DIFF REQUIRED (test code NO = MDIFF) BASIC METABOLIC [id number] 07:41:00 Test Item Value Reference Range Interpretation Comments SODIUM (test code = 138 mEq/L 134-147 N NA) POTASSIUM (test code 4.2 mEq/L 3.4-5.0 N = K) CHLORIDE (test code 104 mEq/L 100-108 N = CL) CARBON DIOXIDE (test 25 mEq/l 21-33 N code = CO2) ANION GAP (test code 14 0-20 N = GAP) GLUCOSE (test code = 103 mg/dL 70-110 N GLU) BLOOD UREA NITROGEN 8 mg/dL 7-18 N (test code = BUN) GLOMERULAR 100.4 80-90 H The Glomerular FILTRATION RATE Filtration R ate is a (test code = GFR) calculated parameterbased on serum Creatinine, pat ient age and sex. GFR va luesless than 60 mL/min/ 1.73 square meters a re indicative ofCh ronic Kidney Disease. Values less than 15 mL/min/1.73squa re meters indicate Kidney failure. The calculation forGFR is based on the CKD-EPI (2020) calculat ion. This formulais race indifferent and is the recommended for deborah for GFRby the Natio nal Kidney Foundati on for Adults.The GFR will not calculate if th e sex is unknown or if thepatient's ag e is <18 years. CREATININE (test 0.7 mg/dL 0.6-1.3 N code = CREAT) CALCIUM (test code = 9.3 mg/dL 8.0-10.5 N CA) [id number] 07:41:00 Test Item Value Reference Range Interpretation Comments MAGNESIUM (test code = MAG) 1.90 mg/dL 1.80-2.40 N - XR CHEST 1 [id number] 00:00:00 [facility] 1955 Sex: M FAX: Ludin John [phone] [place]: St: ADM FAX: Albino Castillo MD [phone] Name: MALIKAMARY [facility] : 1955 Age/S: 66/M [address] [place] [address] Unit #: [id number] Loc: G.3353 [place] [address] Phys: Ludin Mccurdy MD Acct: [id number] Dis Date: Status: ADM IN PHONE #: [phone] Exam Date: 08/20/2022600 FAX #: [phone] Reason: Cardiac Surgery Post Op EXAMS: CPT CODE: [id number] XR CHEST 1 V 14793 PROCEDURE INFORMATION: Exam: XR Chest Exam date and time: 08/20/2022 6:01 AM Age: 66 years old Clinical indication: Other: Cardiac surgery post op TECHNIQUE: Imaging protocol: Radiologic exam of the chest. Views: 1 view. COMPARISON: CR XR CHEST 1V 08/19/2022 8:21 AM FINDINGS: Luna gs: The bilateral lung opacities are grossly stable. Pleural spaces: Stable small left pleural effusion. No definite pneumothorax. Heart/Mediastinum: The enlarged heart size is stable. Vasculature: Atherosclerotic calcifications. Bones/joints: Stable. Median sternotomy wires. IMPRESSION: Grossly stable exam. at 0758 Reported and signed by: Allan Diana M.D. CC: Ludin Mccurdy MD; Albino Torre MD Technologist: Belem Stark, RT(R) Trnscrd Date/Time/By: 08/20/2022 (0758) : By: [email or web address] Orig Print D/T: S: 08/20/2022 (0758) PAGE 1 Signed ReportBASIC METABOLIC [id number] 05:17:00 Test Item Value Reference Range Interpretation Comments SODIUM (test code = 137 mEq/L 134-147 N NA) POTASSIUM (test code 4.0 mEq/L 3.4-5.0 N = K) CHLORIDE (test code 105 mEq/L 100-108 N = CL) CARBON DIOXIDE (test 25 mEq/l 21-33 N code = CO2) ANION GAP (test code 11 0-20 N = GAP) GLUCOSE (test code = 100 mg/dL 70-110 N GLU) BLOOD UREA NITROGEN 9 mg/dL 7-18 N (test code = BUN) GLOMERULAR 96.4 80-90 H The Glomerular FILTRATION RATE Filtration R ate is a (test code = GFR) calculated parameterbased on serum Creatinine, pat ient age and sex. GFR va luesless than 60 mL/min/ 1.73 square meters a re indicative ofCh ronic Kidney Disease. Values less than 15 mL/min/1.73squa re meters indicate Kidney failure. The calculation forGFR is based on the CKD-EPI (2020) calculat ion. This formulais race indifferent and is the recommended for [facility] for GFRby the Nat nal Kidney Foundati on for Adults.The GFR will not calculate if th e sex is unknown or if thepatient's ag e is <18 years. CREATININE (test 0.8 mg/dL 0.6-1.3 N code = CREAT) CALCIUM (test code = 8.7 mg/dL 8.0-10.5 N CA) [id number] 05:17:00 Test Item Value Reference Range Interpretation Comments MAGNESIUM (test code = MAG) 1.92 mg/dL 1.80-2.40 N CBC W/AUTO [id number] 05:03:00 Test Item Value Reference Range Interpretation Comments WHITE BLOOD CELL (test code = 9.3 x10 3/uL 4.5-11.0 N WBC) RED BLOOD CELL (test code = 3.10 x10 6/uL 4.00-5.60 L RBC) HEMOGLOBIN (test code = HGB) 9.2 g/dL 12.5-16.9 L HEMATOCRIT (test code = HCT) 27.8 % 37.5-50.7 L MEAN CELL VOLUME (test code = 89.7 fL 81.0-99.0 MCV) MEAN CELL HGB (test code = MCH) 29.7 pg 27.0-33.0 N MEAN CELL HGB CONCETRATION 33.1 g/dL 33.0-37.0 N (test code = MCHC) RED CELL DISTRIBUTION WIDTH CV 15.4 % 11.5-14.5 H (test code = RDW) RED CELL DISTRIBUTION WIDTH SD 50.6 fL 37.0-54.0 N (test code = RDW-SD) PLATELET COUNT (test code = 686 x10 3/uL 150-400 H PLT) MEAN PLATELET VOLUME (test code 9.9 fL 7.0-9.0 H = MPV) NEUTROPHIL % (test code = NT%) 61.1 % 56.0-77.0 N IMMATURE GRANULOCYTE % (test 0.8 % 0.0-2.0 N code = IG%) LYMPHOCYTE % (test code = LY%) 23.0 % 14.0-32.0 N MONOCYTE % (test code = MO%) 12.5 % 4.8-9.0 H EOSINOPHIL % (test code = EO%) 2.2 % 0.3-3.7 N BASOPHIL % (test code = BA%) 0.4 % 0.0-2.0 N NUCLEATED RBC % (test code = 0.0 % 0-0 N NRBC%) NEUTROPHIL # (test code = NT#) 5.67 x10 3/uL 2.0-7.6 N IMMATURE GRANULOCYTE # (test 0.07 x10 3/uL 0.00-0.03 H code = IG#) LYMPHOCYTE # (test code = LY#) 2.13 x10 3/uL 1.0-3.8 N MONOCYTE # (test code = MO#) 1.16 x10 3/uL 0.1-0.8 H EOSINOPHIL # (test code = EO#) 0.20 x10 3/uL 0.0-0.2 N BASOPHIL # (test code = BA#) 0.04 x10 3/uL 0.0-0.2 N NUCLEATED RBC # (test code = 0.00 x10 3/uL 0.0-0.1 N NRBC#) MANUAL DIFF REQUIRED (test code NO = MDIFF) - XR CHEST 1 [id number] 00:00:00 [facility] : 1955 Sex: M FAX: Ludin John [phone] [place]: GC St: [facility] FAX: Albino Castillo MD [phone] Name: [facility] PhelpsAnson : 1955 Age/S: 66/M [address] [place] [address] Unit #: [id number] Loc: C[address] [place] [address] Phys: Ludin Mccurdy MD Acct: [id number] Dis Date: Status: ADM IN PHONE #: [phone] Exam Date: 08/19/2022 0857 FAX #: [phone] Reason: Cardiac Surgery Post Op EXAMS: CPT CODE: [id number] XR CHEST 1 V 41995 PROCEDURE INFORMATION: Exam: XR Chest Exam date and time: 08/19/2022 8:21 AMAge: 66 years old Clinical indication: Screening exam; Other screening; Additional info: Cardiac surgery post op TECHNIQUE: Imaging protocol: Radiologic exam of the chest. Views: 1 view. COMPARISON: CRXR CHEST 1V 08/18/2022 5:50 AM FINDINGS: Lungs: Mild opacities obscure the left lung base may be secondary to small pleural effusion and subjacent atelectasis or infiltrate as was noted on previous recent CT. Pleural spaces: See "Lungs" finding. Heart/Mediastinum: Stable cardiomegaly. Bones/joints: Median sternotomy wires. No acute bony abnormality. IMPRESSION: Stable left dependent atelectasis and small left pleural fluid. Stable cardiomediastinal silhouette. at 1102 Reported and signed by: Maik Sandra M.D. CC: Ludin Mccurdy MD; Albino Torre MD Technologist: RT Margarita(R) Trnscrd Date/Time/By: 08/19/2022 (110) : By: [email or web address] Orig Print D/T: S: 08/19/2022 (110) PAGE 1 Signed ReportBASIC METABOLIC [id number] 04:58:00 Test Item Value Reference Range Interpretation Comments SODIUM (test code = 138 mEq/L 134-147 N NA) POTASSIUM (test code 3.8 mEq/L 3.4-5.0 N = K) CHLORIDE (test code 107 mEq/L 100-108 N = CL) CARBON DIOXIDE (test 25 mEq/l 21-33 N code = CO2) ANION GAP (test code 10 0-20 N = GAP) GLUCOSE (test code = 103 mg/dL 70-110 N GLU) BLOOD UREA NITROGEN 11 mg/dL 7-18 N (test code = BUN) GLOMERULAR 96.4 80-90 H The Glomerular FILTRATION RATE Filtration R ate is a (test code = GFR) calculated parameterbased on serum Creatinine, pat ient age and sex. GFR va luesless than 60 mL/min/ 1.73 square meters a re indicative ofCh ronic Kidney Disease. Values less than 15 mL/min/1.73squa re meters indicate Kidney failure. The calculation forGFR is based on the CKD-EPI (2020) calculat ion. This formulais race indifferent and is the recommended for deborah for GFRby the Natio nal Kidney Foundati on for Adults.The GFR will not calculate if th e sex is unknown or if thepatient's ag e is <18 years. CREATININE (test 0.8 mg/dL 0.6-1.3 N code = CREAT) CALCIUM (test code = 8.2 mg/dL 8.0-10.5 N CA) [id number] 04:58:00 Test Item Value Reference Range Interpretation Comments MAGNESIUM (test code = MAG) 2.06 mg/dL 1.80-2.40 N CBC W/AUTO [id number] 04:42:00 Test Item Value Reference Range Interpretation Comments WHITE BLOOD CELL (test code = 9.6 x10 3/uL 4.5-11.0 N WBC) RED BLOOD CELL (test code = 3.01 x10 6/uL 4.00-5.60 L RBC) HEMOGLOBIN (test code = HGB) 8.8 g/dL 12.5-16.9 L HEMATOCRIT (test code = HCT) 28.3 % 37.5-50.7 L MEAN CELL VOLUME (test code = 94.0 fL 81.0-99.0 MCV) MEAN CELL HGB (test code = MCH) 29.2 pg 27.0-33.0 N MEAN CELL HGB CONCETRATION 31.1 g/dL 33.0-37.0 L (test code = MCHC) RED CELL DISTRIBUTION WIDTH CV 16.0 % 11.5-14.5 H (test code = RDW) RED CELL DISTRIBUTION WIDTH SD 54.8 fL 37.0-54.0 H (test code = RDW-SD) PLATELET COUNT (test code = 591 x10 3/uL 150-400 H PLT) MEAN PLATELET VOLUME (test code 10.2 fL 7.0-9.0 H = MPV) NEUTROPHIL % (test code = NT%) 73.0 % 56.0-77.0 N IMMATURE GRANULOCYTE % (test 0.5 % 0.0-2.0 N code = IG%) LYMPHOCYTE % (test code = LY%) 17.1 % 14.0-32.0 N MONOCYTE % (test code = MO%) 8.3 % 4.8-9.0 N EOSINOPHIL % (test code = EO%) 0.9 % 0.3-3.7 N BASOPHIL % (test code = BA%) 0.2 % 0.0-2.0 N NUCLEATED RBC % (test code = 0.0 % 0-0 N NRBC%) NEUTROPHIL # (test code = NT#) 7.00 x10 3/uL 2.0-7.6 N IMMATURE GRANULOCYTE # (test 0.05 x10 3/uL 0.00-0.03 H code = IG#) LYMPHOCYTE # (test code = LY#) 1.64 x10 3/uL 1.0-3.8 N MONOCYTE # (test code = MO#) 0.80 x10 3/uL 0.1-0.8 N EOSINOPHIL # (test code = EO#) 0.09 x10 3/uL 0.0-0.2 N BASOPHIL # (test code = BA#) 0.02 x10 3/uL 0.0-0.2 N NUCLEATED RBC # (test code = 0.00 x10 3/uL 0.0-0.1 N NRBC#) MANUAL DIFF REQUIRED (test code NO = MDIFF) - XR CHEST 1 [id number] 00:00:00 [facility] : 1955 Sex: M FAX: Ludin John [phone] [place]: St: [facility] FAX: Albino Castillo MD [phone] Name: MARY DALY [facility] : 1955 Age/S: 66/M [address] [place] [address] Unit #: [id number] Loc: G.3311 [place] [address] Phys: Ludin Mccurdy MD Acct: [id number] Dis Date: Status: ADM IN PHONE #: [phone] Exam Date: 08/18/2022550 FAX #: [phone] Reason: Cardiac Surgery Post Op EXAMS: CPT CODE: [id number] XR CHEST 1 V 53024 PROCEDURE INFORMATION: Exam: XR Chest Exam date and time: 08/18/2022 5:50 AM Age: 66 years old Clinical indication: Other: Cardiac surgery post op TECHNIQUE: Imaging protocol: Radiologic exam of the chest. Views: 1 view. COMPARISON: CR XR CHEST 1V 08/17/2022 6:04 AM FINDINGS: Lungs: No focal airspace disease. Pleural spaces: No pleural effusion. No pneumothorax. Heart/Mediastinum: Unchanged enlargement of the cardiomediastinal silhouette. Bones/joints: Median sternotomy changes. IMPRESSION: No focal airspace disease. at 0830 Reported and signed by: Colby Sawyer M.D. CC: Ludin Mccurdy MD; Albino Torre MD Technologist: Belem Stark, RT(R) Trnscrd Date/Time/By: 08/18/2022 (829) : By: [email or web address] Orig Print D/T: S: 08/18/2022 (829) PAGE 1 Signed ReportBASIC METABOLIC [id number] 07:54:00 Test Item Value Reference Range Interpretation Comments SODIUM (test code = 137 mEq/L 134-147 N NA) POTASSIUM (test code 4.0 mEq/L 3.4-5.0 N = K) CHLORIDE (test code 105 mEq/L 100-108 N = CL) CARBON DIOXIDE (test 24 mEq/l 21-33 N code = CO2) ANION GAP (test code 12 0-20 N = GAP) GLUCOSE (test code = 119 mg/dL 70-110 H GLU) BLOOD UREA NITROGEN 13 mg/dL 7-18 N (test code = BUN) GLOMERULAR 96.4 80-90 H The Glomerular FILTRATION RATE Filtration R ate is a (test code = GFR) calculated parameterbased on serum Creatinine, pat ient age and sex. GFR va luesless than 60 mL/min/ 1.73 square meters a re indicative ofCh ronic Kidney Disease. Values less than 15 mL/min/1.73squa re meters indicate Kidney failure. The calculation forGFR is based on the CKD-EPI (2020) calculat ion. This formulais race indifferent and is the recommended for deborah for GFRby the [facility] Foundati on for Adults.The GFR will not calculate if th e sex is unknown or if thepatient's ag e is <18 years. CREATININE (test 0.8 mg/dL 0.6-1.3 N code = CREAT) CALCIUM (test code = 8.5 mg/dL 8.0-10.5 N CA) [id number] 07:54:00 Test Item Value Reference Range Interpretation Comments MAGNESIUM (test code = MAG) 2.32 mg/dL 1.80-2.40 CBC W/AUTO [id number] 06:58:00 Test Item Value Reference Range Interpretation Comments WHITE BLOOD CELL (test code = 12.8 x10 3/uL 4.5-11.0 H WBC) RED BLOOD CELL (test code = 2.91 x10 6/uL 4.00-5.60 L RBC) HEMOGLOBIN (test code = HGB) 8.6 g/dL 12.5-16.9 L HEMATOCRIT (test code = HCT) 26.4 % 37.5-50.7 L MEAN CELL VOLUME (test code = 90.7 fL 81.0-99.0 N MCV) MEAN CELL HGB (test code = 29.6 pg 27.0-33.0 N MCH) MEAN CELL HGB CONCETRATION 32.6 g/dL 33.0-37.0 L (test code = MCHC) RED CELL DISTRIBUTION WIDTH CV 15.7 % 11.5-14.5 H (test code = RDW) RED CELL DISTRIBUTION WIDTH SD 52.6 fL 37.0-54.0 N (test code = RDW-SD) PLATELET COUNT (test code = 575 x10 3/uL 150-400 H PLT) MEAN PLATELET VOLUME (test 10.1 fL 7.0-9.0 H code = MPV) NEUTROPHIL % (test code = NT%) 81.5 % 56.0-77.0 H IMMATURE GRANULOCYTE % (test 0.4 % 0.0-2.0 N code = IG%) LYMPHOCYTE % (test code = LY%) 9.1 % 14.0-32.0 L MONOCYTE % (test code = MO%) 8.8 % 4.8-9.0 N EOSINOPHIL % (test code = EO%) 0.0 % 0.3-3.7 L BASOPHIL % (test code = BA%) 0.2 % 0.0-2.0 N NUCLEATED RBC % (test code = 0.0 % 0-0 N NRBC%) NEUTROPHIL # (test code = NT#) 10.43 x10 3/uL 2.0-7.6 H IMMATURE GRANULOCYTE # (test 0.05 x10 3/uL 0.00-0.03 H code = IG#) LYMPHOCYTE # (test code = LY#) 1.16 x10 3/uL 1.0-3.8 N MONOCYTE # (test code = MO#) 1.12 x10 3/uL 0.1-0.8 H EOSINOPHIL # (test code = EO#) 0.00 x10 3/uL 0.0-0.2 N BASOPHIL # (test code = BA#) 0.02 x10 3/uL 0.0-0.2 N NUCLEATED RBC # (test code = 0.00 x10 3/uL 0.0-0.1 N NRBC#) MANUAL DIFF REQUIRED (test NO code = MDIFF) - XR CHEST 1 [id number] 00:00:00 [facility] 1955 Sex: M FAX: Ludin John [phone] [place]: St: ADM FAX: Albino Castillo MD [phone] Name: MARY DALY [facility] : 1955 Age/S: 66/M [address] [place] [address] Unit #: [id number] Loc: G.3311 [place] [address] Phys: Ludin Mccurdy MD Acct: [id number] Dis Date: Status: ADM IN PHONE #: [phone] Exam Date: 08/17/2022658 FAX #: [phone] Reason: Cardiac Surgery Post Op EXAMS: CPT CODE: [id number] XR CHEST 1 V 80361 PROCEDURE INFORMATION: Exam: XR Chest Exam date and time: 08/17/2022 6:04 AM Age: 66 years old Clinical indication: Other: Cardiac surgery post op TECHNIQUE: Imaging protocol: Radiologic exam of the chest. Views: 1 view. COMPARISON: CR XR CHEST 1V 08/16/2022 2:09 PM FINDINGS: Lungs: Mildly improved left mid-lower lung field opacities. Right perihilar interstitial opacities may be slightly increased. The other lung opacities are stable. Pleural spaces: Question small left pleural effusion. No definite pneumothorax. Heart/Mediastinum: Stable enlarged heart size. Vasculature: Athe rosclerotic calcifications. Bones/joints: Stable. Median sternotomy wires. IMPRESSION: 1. Mildly improved left mid-lower lung field opacities. 2. Right perihilar interstitial opacities may be slightly increased. at 0803 Reported and signed by: Allan Diana M.D. CC: Ludin Mccurdy MD; Albino Torre MD Technologist: William Bashir RT(R) Trnscrd Date/Time/By: 08/17/2022 (802) : By: [email or web address] Orig Print D/T: S: 08/17/2022 (802) PAGE 1 Signed ReportCBC W/AUTO DIFF 2022-08-16 22:58:00 Test Item Value Reference Range Interpretation Comments WHITE BLOOD CELL (test code = 13.0 x10 3/uL 4.5-11.0 H WBC) RED BLOOD CELL (test code = 2.88 x10 6/uL 4.00-5.60 L RBC) HEMOGLOBIN (test code = HGB) 8.6 g/dL 12.5-16.9 L HEMATOCRIT (test code = HCT) 26.3 % 37.5-50.7 L MEAN CELL VOLUME (test code = 91.3 fL 81.0-99.0 N MCV) MEAN CELL HGB (test code = 29.9 pg 27.0-33.0 N MCH) MEAN CELL HGB CONCETRATION 32.7 g/dL 33.0-37.0 L (test code = MCHC) RED CELL DISTRIBUTION WIDTH CV 15.2 % 11.5-14.5 H (test code = RDW) RED CELL DISTRIBUTION WIDTH SD 51.2 fL 37.0-54.0 N (test code = RDW-SD) PLATELET COUNT (test code = 564 x10 3/uL 150-400 H PLT) MEAN PLATELET VOLUME (test 10.1 fL 7.0-9.0 H code = MPV) NEUTROPHIL % (test code = NT%) 84.7 % 56.0-77.0 H IMMATURE GRANULOCYTE % (test 0.6 % 0.0-2.0 N code = IG%) LYMPHOCYTE % (test code = LY%) 7.1 % 14.0-32.0 L MONOCYTE % (test code = MO%) 7.5 % 4.8-9.0 N EOSINOPHIL % (test code = EO%) 0.0 % 0.3-3.7 L BASOPHIL % (test code = BA%) 0.1 % 0.0-2.0 N NUCLEATED RBC % (test code = 0.0 % 0-0 N NRBC%) NEUTROPHIL # (test code = NT#) 11.02 x10 3/uL 2.0-7.6 H IMMATURE GRANULOCYTE # (test 0.08 x10 3/uL 0.00-0.03 H code = IG#) LYMPHOCYTE # (test code = LY#) 0.92 x10 3/uL 1.0-3.8 L MONOCYTE # (test code = MO#) 0.98 x10 3/uL 0.1-0.8 H EOSINOPHIL # (test code = EO#) 0.00 x10 3/uL 0.0-0.2 N BASOPHIL # (test code = BA#) 0.01 x10 3/uL 0.0-0.2 N NUCLEATED RBC # (test code = 0.00 x10 3/uL 0.0-0.1 N NRBC#) MANUAL DIFF REQUIRED (test NO code = MDIFF) CBC W/AUTO [id number] 16:32:00 Test Item Value Reference Range Interpretation Comments WHITE BLOOD CELL (test code = 12.6 x10 3/uL 4.5-11.0 H WBC) RED BLOOD CELL (test code = 2.60 x10 6/uL 4.00-5.60 L RBC) HEMOGLOBIN (test code = HGB) 7.7 g/dL 12.5-16.9 L HEMATOCRIT (test code = HCT) 23.9 % 37.5-50.7 L MEAN CELL VOLUME (test code = 91.9 fL 81.0-99.0 MCV) MEAN CELL HGB (test code = 29.6 pg 27.0-33.0 N MCH) MEAN CELL HGB CONCETRATION 32.2 g/dL 33.0-37.0 L (test code = MCHC) RED CELL DISTRIBUTION WIDTH CV 14.6 % 11.5-14.5 H (test code = RDW) RED CELL DISTRIBUTION WIDTH SD 48.9 fL 37.0-54.0 N (test code = RDW-SD) PLATELET COUNT (test code = 562 x10 3/uL 150-400 H PLT) MEAN PLATELET VOLUME (test 9.9 fL 7.0-9.0 H code = MPV) NEUTROPHIL % (test code = NT%) 87.5 % 56.0-77.0 H IMMATURE GRANULOCYTE % (test 0.6 % 0.0-2.0 N code = IG%) LYMPHOCYTE % (test code = LY%) 5.2 % 14.0-32.0 L MONOCYTE % (test code = MO%) 6.3 % 4.8-9.0 N EOSINOPHIL % (test code = EO%) 0.2 % 0.3-3.7 L BASOPHIL % (test code = BA%) 0.2 % 0.0-2.0 N NUCLEATED RBC % (test code = 0.0 % 0-0 N NRBC%) NEUTROPHIL # (test code = NT#) 11.07 x10 3/uL 2.0-7.6 H IMMATURE GRANULOCYTE # (test 0.07 x10 3/uL 0.00-0.03 H code = IG#) LYMPHOCYTE # (test code = LY#) 0.66 x10 3/uL 1.0-3.8 L MONOCYTE # (test code = MO#) 0.79 x10 3/uL 0.1-0.8 N EOSINOPHIL # (test code = EO#) 0.02 x10 3/uL 0.0-0.2 N BASOPHIL # (test code = BA#) 0.03 x10 3/uL 0.0-0.2 N NUCLEATED RBC # (test code = 0.00 x10 3/uL 0.0-0.1 N NRBC#) MANUAL DIFF REQUIRED (test NO code = MDIFF) BASIC METABOLIC [id number] 14:57:00 Test Item Value Reference Range Interpretation Comments SODIUM (test code = 138 mEq/L 134-147 N NA) POTASSIUM (test code 3.5 mEq/L 3.4-5.0 N = K) CHLORIDE (test code 108 mEq/L 100-108 N = CL) CARBON DIOXIDE (test 23 mEq/l 21-33 N code = CO2) ANION GAP (test code 10 0-20 N = GAP) GLUCOSE (test code = 86 mg/dL 70-110 N GLU) BLOOD UREA NITROGEN 11 mg/dL 7-18 N (test code = BUN) GLOMERULAR 100.4 80-90 H The Glomerular FILTRATION RATE Filtration R ate is a (test code = GFR) calculated parameterbased on serum Creatinine, pat ient age and sex. GFR va luesless than 60 mL/min/ 1.73 square meters a re indicative ofCh ronic Kidney Disease. Values less than 15 mL/min/1.73squa re meters indicate Kidney failure. The calculation forGFR is based on the CKD-EPI (2020) calculat ion. This formulais race indifferent and is the recommended for deborah for GFRby the Natio nal Kidney Foundati on for Adults.The GFR will not calculate if th e sex is unknown or if thepatient's ag e is <18 years. CREATININE (test 0.7 mg/dL 0.6-1.3 N code = CREAT) CALCIUM (test code = 7.1 mg/dL 8.0-10.5 L CA) COMMENTS: On arrivalComment: On [id number] 14:57:00 Test Item Value Reference Range Interpretation Comments MAGNESIUM (test code = MAG) 1.95 mg/dL 1.80-2.40 N COMMENTS: On arrivalComment: On arrivalCBC W/AUTO [id number] 14:37:00 Test Item Value Reference Range Interpretation Comments WHITE BLOOD CELL (test 9.9 x10 3/uL 4.5-11.0 N code = WBC) RED BLOOD CELL (test 1.95 x10 6/uL 4.00-5.60 L code = RBC) HEMOGLOBIN (test code 6.0 g/dL 12.5-16.9 LL Critic al result = HGB) called to Roxy DURHAM [email or web address] at 14 33 08/16/22Nurse r ead back resut and tech confirmed it's correct? Y ES HEMATOCRIT (test code 18.5 % 37.5-50.7 L = HCT) MEAN CELL VOLUME (test 94.9 fL 81.0-99.0 N code = MCV) MEAN CELL HGB (test 30.8 pg 27.0-33.0 N code = MCH) MEAN CELL HGB 32.4 g/dL 33.0-37.0 L CONCETRATION (test code = MCHC) RED CELL DISTRIBUTION 14.8 % 11.5-14.5 H WIDTH CV (test code = RDW) RED CELL DISTRIBUTION 51.1 fL 37.0-54.0 N WIDTH SD (test code = RDW-SD) PLATELET COUNT (test 417 x10 3/uL 150-400 H code = PLT) MEAN PLATELET VOLUME 10.0 fL 7.0-9.0 H (test code = MPV) NEUTROPHIL % (test 80.8 % 56.0-77.0 H code = NT%) IMMATURE GRANULOCYTE % 0.9 % 0.0-2.0 N (test code = IG%) LYMPHOCYTE % (test 6.2 % 14.0-32.0 L code = LY%) MONOCYTE % (test code 10.8 % 4.8-9.0 H = MO%) EOSINOPHIL % (test 1.0 % 0.3-3.7 N code = EO%) BASOPHIL % (test code 0.3 % 0.0-2.0 N = BA%) NUCLEATED RBC % (test 0.0 % 0-0 N code = NRBC%) NEUTROPHIL # (test 8.01 x10 3/uL 2.0-7.6 H code = NT#) IMMATURE GRANULOCYTE # 0.09 x10 3/uL 0.00-0.03 H (test code = IG#) LYMPHOCYTE # (test 0.61 x10 3/uL 1.0-3.8 L code = LY#) MONOCYTE # (test code 1.07 x10 3/uL 0.1-0.8 H = MO#) EOSINOPHIL # (test 0.10 x10 3/uL 0.0-0.2 N code = EO#) BASOPHIL # (test code 0.03 x10 3/uL 0.0-0.2 N = BA#) NUCLEATED RBC # (test 0.00 x10 3/uL 0.0-0.1 N code = NRBC#) MANUAL DIFF REQUIRED NO (test code = MDIFF) COMMENTS: On arrivalBASIC METABOLIC [id number] 08:24:00 Test Item Value Reference Range Interpretation Comments SODIUM (test code = 135 mEq/L 134-147 N NA) POTASSIUM (test code 3.7 mEq/L 3.4-5.0 N = K) CHLORIDE (test code 106 mEq/L 100-108 N = CL) CARBON DIOXIDE (test 22 mEq/l 21-33 N code = CO2) ANION GAP (test code 11 0-20 N = GAP) GLUCOSE (test code = 83 mg/dL 70-110 N GLU) BLOOD UREA NITROGEN 10 mg/dL 7-18 N (test code = BUN) GLOMERULAR 82.0 80-90 N The Glomerular FILTRATION RATE Filtration R ate is a (test code = GFR) calculated parameterbased on serum Creatinine, pat ient age and sex. GFR va luesless than 60 mL/min/ 1.73 square meters a re indicative ofCh ronic Kidney Disease. Values less than 15 mL/min/1.73squa re meters indicate Kidney failure. The calculation forGFR is based on the CKD-EPI (2020) calculat ion. This formulais race indifferent and is the recommended for deborah for GFRby the [facility] on for Adults.The GFR will not calculate if th e sex is unknown or if thepatient's ag e is <18 years. CREATININE (test 1.0 mg/dL 0.6-1.3 N code = CREAT) CALCIUM (test code = 8.3 mg/dL 8.0-10.5 N CA) [id number] 08:24:00 Test Item Value Reference Range Interpretation Comments MAGNESIUM (test code = MAG) 2.14 mg/dL 1.80-2.40 N CBC W/AUTO [id number] 07:26:00 Test Item Value Reference Range Interpretation Comments WHITE BLOOD CELL (test code = 13.3 x10 3/uL 4.5-11.0 H WBC) RED BLOOD CELL (test code = 2.69 x10 6/uL 4.00-5.60 L RBC) HEMOGLOBIN (test code = HGB) 8.2 g/dL 12.5-16.9 L HEMATOCRIT (test code = HCT) 25.4 % 37.5-50.7 L MEAN CELL VOLUME (test code = 94.4 fL 81.0-99.0 N MCV) MEAN CELL HGB (test code = MCH) 30.5 pg 27.0-33.0 N MEAN CELL HGB CONCETRATION 32.3 g/dL 33.0-37.0 L (test code = MCHC) RED CELL DISTRIBUTION WIDTH CV 14.8 % 11.5-14.5 H (test code = RDW) RED CELL DISTRIBUTION WIDTH SD 51.4 fL 37.0-54.0 N (test code = RDW-SD) PLATELET COUNT (test code = 590 x10 3/uL 150-400 H PLT) MEAN PLATELET VOLUME (test code 10.4 fL 7.0-9.0 H = MPV) NEUTROPHIL % (test code = NT%) 71.4 % 56.0-77.0 N IMMATURE GRANULOCYTE % (test 0.8 % 0.0-2.0 N code = IG%) LYMPHOCYTE % (test code = LY%) 13.4 % 14.0-32.0 L MONOCYTE % (test code = MO%) 13.0 % 4.8-9.0 H EOSINOPHIL % (test code = EO%) 1.0 % 0.3-3.7 N BASOPHIL % (test code = BA%) 0.4 % 0.0-2.0 N NUCLEATED RBC % (test code = 0.0 % 0-0 N NRBC%) NEUTROPHIL # (test code = NT#) 9.54 x10 3/uL 2.0-7.6 H IMMATURE GRANULOCYTE # (test 0.10 x10 3/uL 0.00-0.03 H code = IG#) LYMPHOCYTE # (test code = LY#) 1.78 x10 3/uL 1.0-3.8 N MONOCYTE # (test code = MO#) 1.73 x10 3/uL 0.1-0.8 H EOSINOPHIL # (test code = EO#) 0.13 x10 3/uL 0.0-0.2 N BASOPHIL # (test code = BA#) 0.05 x10 3/uL 0.0-0.2 N NUCLEATED RBC # (test code = 0.00 x10 3/uL 0.0-0.1 N NRBC#) MANUAL DIFF REQUIRED (test code NO = MDIFF) - XR CHEST 1 [id number] 00:00:00 [facility] 1955 Sex: M FAX: Ludin John [phone] [place]: St: ADM FAX: Albino Castillo MD [phone] Name: MARY DALY [facility] : 1955 Age/S: 66/M [address] [place] [address] Unit #: [id number] Loc: G.[address] [place] [id number] Phys: Ludin Mccurdy MD Acct: [id number] Dis Date: Status: ADM IN PHONE #: [phone] Exam Date: 08/16/2022 1450 FAX #: [phone] Reason: Cardiac Surgery Post Op EXAMS: CPT CODE: [id number] XR CHEST 1 V [id number] PROCEDURE INFORMATION: Exam: XR Chest Exam date and time: 08/16/2022 2:09 PM Age: 66 years old Clinical indication: Other: Cardiac surgery post op TECHNIQUE: Imaging protocol: Radiologic exam of the chest. Views: 1 view. COMPARISON: CT CHEST W/O CONTRAST 08/15/2022 1:18 PM FINDINGS: Lungs: Low lung volumes. Atelectasis of the left lung base. Pleural spaces: Possible small left pleural fluid. No pneumothorax Heart/Mediastinum: Cardiomediastinal silhouette stable. Bones/joints: Median sternotomy wires. IMPRESSION: . Low lung volumes, hypoventilation. Pleuroparenchymal opacities obscure the left lung base, lower lobe region. No pneumothorax. at 1547 Reported and signed by: Maik Sandra M.D. CC: Ludin Mccurdy MD; Albino Torre MD Technologist: Radha Dunham RT(R) Trnscrd Date/Time/By: (8773) : By: [email or web address] Orig Print D/T: S: 08/16/2022 (1006) PAGE 1 Signed ReportPROTHROMBIN [id number] 15:45:00 Test Item Value Reference Range Interpretation Comments PROTHROMBIN TIME 15.6 SECONDS 9.3-12.9 H PATIENT (test code = PTP) INTERNATIONAL NORMAL 1.4 0.8-1.2 H TARGET INR BY RATIO (test code = INDICATIO N Indication INR) INR1. Prophylax is of venous thrombos is 2.0 - 3.0 (orthoped ic surgery), Proph ylaxis of venous throm bosis (other than hig h-risk surgery), Treat ment of Deep Vein Thrombosis/Pulm onary Embolism, Preve ntion of systemic emb olism - Tissue heart va lves, Acute Myocardia l Infarction (to prevent systemic emboli sm), Valvular heart disease, Atrial Fibrillation, Bileaflet mecha nical valve in aortic position.2. Mec hanical prosthetic valv es (high risk), 2. 5 - 3.5 Presence of Lup us Anticoagulant o r Antiphospholipi d Antibodies, Pre vention of systemic emb olism - Acute Myocardia l Infarction (to prevent recurrent infar ct). THROMBOPLASTIN TIME [id number] 15:45:00 Test Item Value Reference Range Interpretation Comments THROMBOPLASTIN TIME 33.5 Seconds 25.0-39.5 N Therape utic Range: PARTIAL (test code = 50.4 - 88.3 Seconds PTT) Effective 06/06/2018 B-TYPE NATRIURETIC [id number] 13:25:00 Test Item Value Reference Range Interpretation Comments B-TYPE NATRIURETIC PEPTIDE (test 491.0 PG/ML 0-100 H code = BNP) BASIC METABOLIC [id number] 13:22:00 Test Item Value Reference Range Interpretation Comments SODIUM (test code = 136 mEq/L 134-147 N NA) POTASSIUM (test code 4.5 mEq/L 3.4-5.0 N = K) CHLORIDE (test code 106 mEq/L 100-108 N = CL) CARBON DIOXIDE (test 21 mEq/l 21-33 N code = CO2) ANION GAP (test code 13 0-20 N = GAP) GLUCOSE (test code = 106 mg/dL 70-110 N GLU) BLOOD UREA NITROGEN 9 mg/dL 7-18 N (test code = BUN) GLOMERULAR 82.0 80-90 N The Glomerular FILTRATION RATE Filtration R ate is a (test code = GFR) calculated parameterbased on serum Creatinine, pat ient age and sex. GFR va luesless than 60 mL/min/ 1.73 square meters a re indicative ofCh ronic Kidney Disease. Values less than 15 mL/min/1.73squa re meters indicate Kidney failure. The calculation forGFR is based on the CKD-EPI (2020) calculat ion. This formulais race indifferent and is the recommended for deborah for GFRby the [facility] on for Adults.The GFR will not calculate if th e sex is unknown or if thepatient's ag e is <18 years. CREATININE (test 1.0 mg/dL 0.6-1.3 N code = CREAT) CALCIUM (test code = 8.6 mg/dL 8.0-10.5 N CA) HEPATIC FUNCTION [id number] 13:22:00 Test Item Value Reference Range Interpretation Comments TOTAL PROTEIN (test code = PROT) 6.9 g/dL 6.4-8.2 N ALBUMIN (test code = ALB) 3.00 g/dL 3.4-5.0 L BILIRUBIN TOTAL (test code = 0.60 mg/dL 0.0-1.0 N BILT) BILIRUBIN DIRECT (test code = 0.30 MG/DL 0.0-0.30 N BILD) SGOT/AST (test code = AST) 44 IUnit/L 15-37 H SGPT/ALT (test code = ALT) 48 IUnit/L 30-65 N ALKALINE PHOSPHATASE TOTAL (test 133 IUnit/L 20-125 H code = ALKP) BILIRUBIN INDIRECT (test code = 0.30 MG/DL BILIND) [id number] 13:22:00 Test Item Value Reference Range Interpretation Comments MAGNESIUM (test code = MAG) 2.14 mg/dL 1.80-2.40 N TROP-I HIGH [id number] 13:22:00 Test Item Value Reference Range Interpretation Comments TROP-I HIGH 21 ng/L 0-54 N CAUTION: Units of the SENSITIVITY (test current te st methodology code = TROPIHS) (ng/L) diffe rfrom the prior test methodolog y (ng/mL) by a factor of 1000. 99th Percentile Upper Reference Limit (URL): Females: 34 ng/LMales: 54 n g/L In order to distinguish acute elevations of h igh sensitivitytrop onin from other clinical conditions, the FourthUnive rsal Definition of M yocardial Infarction stre ssesclinical assessment and the demonstration o f a rise and/orfall in s erial troponin result s above the URL. These resu lts were obtained using Siemens Atellica IM TnI Hreagent. Results from di fferent methodologies s hould not becompared to o ne another as quantitative results and URLs mayvary by method. CBC W/AUTO [id number] 13:03:00 Test Item Value Reference Range Interpretation Comments WHITE BLOOD CELL (test code = 9.9 x10 3/uL 4.5-11.0 N WBC) RED BLOOD CELL (test code = 2.44 x10 6/uL 4.00-5.60 L RBC) HEMOGLOBIN (test code = HGB) 7.7 g/dL 12.5-16.9 L HEMATOCRIT (test code = HCT) 22.7 % 37.5-50.7 L MEAN CELL VOLUME (test code = 93.0 fL 81.0-99.0 N MCV) MEAN CELL HGB (test code = MCH) 31.6 pg 27.0-33.0 N MEAN CELL HGB CONCETRATION 33.9 g/dL 33.0-37.0 N (test code = MCHC) RED CELL DISTRIBUTION WIDTH CV 14.6 % 11.5-14.5 H (test code = RDW) PLATELET COUNT (test code = 323 x10 3/uL 150-400 N PLT) NEUTROPHIL % (test code = NT%) 81.4 % 56.0-77.0 H LYMPHOCYTE % (test code = LY%) 8.3 % 14.0-32.0 L NEUTROPHIL # (test code = NT#) 8.05 x10 3/uL 2.0-7.6 H LYMPHOCYTE # (test code = LY#) 0.82 x10 3/uL 1.0-3.8 L MANUAL DIFF REQUIRED (test code NO = MDIFF) RED CELL DISTRIBUTION WIDTH SD 49.3 fL 37.0-54.0 N (test code = RDW-SD) MEAN PLATELET VOLUME (test code 10.5 fL 7.0-9.0 H = MPV) IMMATURE GRANULOCYTE % (test 0.8 % 0.0-2.0 N code = IG%) MONOCYTE % (test code = MO%) 8.4 % 4.8-9.0 N EOSINOPHIL % (test code = EO%) 0.9 % 0.3-3.7 N BASOPHIL % (test code = BA%) 0.2 % 0.0-2.0 N NUCLEATED RBC % (test code = 0.0 % 0-0 N NRBC%) IMMATURE GRANULOCYTE # (test 0.08 x10 3/uL 0.00-0.03 H code = IG#) MONOCYTE # (test code = MO#) 0.83 x10 3/uL 0.1-0.8 H EOSINOPHIL # (test code = EO#) 0.09 x10 3/uL 0.0-0.2 N BASOPHIL # (test code = BA#) 0.02 x10 3/uL 0.0-0.2 N NUCLEATED RBC # (test code = 0.00 x10 3/uL 0.0-0.1 N NRBC#) - DUP VE[place] [id number] 00:00:00 [facility] A[facility] POWELLName: MARY DALY : 1955 Sex: M Name: MARY DALY [facility] Aleah Powell : 1955 Age/S: 66 / M [address] [place] [address] Blvd Unit #: [id number] Loc: [place] [address] Phys: Rosalind Mendez Acct: [id number] Dis Date: Status: ADM IN PHONE#: [phone] Exam Date: 08/15/2022 1317 FAX #: [phone] Reason: R/O DVT EXAMS: CPT CODE: [id number] [place] [address] PROCEDURE INFORMATION: Exam: US Duplex Lower Extremity Veins, Bilateral Exam date and time: 08/15/2022 12:46 PM Age: 66 years old Clinical indication: Screening exam; R/O dvt TECHNIQUE: Imaging protocol: Real-time duplex ultrasound of the bilateral extremities with 2-D walters scale, color Doppler flow and spectral waveform analysis including responses to compression and other maneuvers (when performed) with image documentation. Complete exam focused on the lower extremity veins. COMPARISON: US [place] 08/07/2022 11:08 AM FINDINGS: Right deep veins: Unremarkable. The commonfemoral, femoral, proximal profunda femoral and popliteal veins are patent without thrombus. Right superficial veins: Saphenofemoral junction is patent without thrombus. Left deep veins: Unremarkable. The common femoral, femoral, proximal profunda femoral and popliteal veins are patent without thrombus. Left superficial veins: Saphenofemoral junction is patent without thrombus. Soft tissues: Unremarkable. IMPRESSION: No evidence of deep vein thrombosis. at 1359 Reported and signed by: Kong Marrero M.D. CC: Jaden Rodgers MD; Albino Torre MD; Rosalind Mendez Technologist: Christina Dowd Trnscb Date/Time: 08/15/2022 (0549) [email or web address] Orig Print D/T: S: 08/15/2022 (1400) Probe: PAGE 1 Signed Report- CT CHEST W/O [id number] 00:00:00 [facility] 1955 Sex: M Name: MARY DALY [facility] : 1955 Age/S: 66 / M [address] [place] [address] Unit #: [id number] Loc: [place] [address] Phys: Jaden Rodgers MD Acct: [id number] Dis Date: Status: ADM IN PHONE #: [phone] Exam Date: 08/15/2022 1318 FAX #: [phone] Reason: eval post CABG EXAMS: CPT CODE: [id number] CT CHEST W/O CONTRAST 80255 PROCEDURE INFORMATION: Exam: CT Chest Without Contrast; Diagnostic Exam date and time: 08/15/2022 1:18 PM Age: 66 years old Clinical indication: Other: Eval post cabg TECHNIQUE: Imaging protocol: Diagnostic computed tomography of the chest without contrast. Radiation optimization: All CT scans at this facility use at least one of these dose optimization techniques: automated exposure control; mA and/or kV adjustment per patient size (includes targeted exams where dose is matched to clinical indication); or iterative reconstruction. REPORTING DATA: Count of CT and Cardiac NM exams in prior 12 months: This patient has received 3 known CTs and 0 known cardiac nuclear medicine studies in the 12 months prior to the current study. COMPARISON: CT CHEST W/O CONTRAST 07/28/2022 12:46 PM FINDINGS: Lungs: Small focus of atelectasis or consolidation in the posteromedial left lung base. No other pulmonary infiltrate or edema. Trace left pleural fluid. Pleural spaces: Very small left pleural fluid. Heart: Severe coronary calcification. No pericardial effusion. Cardiomegaly Mediastinal space: No additional mediastinal adenopathy or fluid collection. Lymph nodes: Unremarkable. No enlarged lymph nodes. Vasculature: Unremarkable. No aortic aneurysm. Bones/joints: Post st ernotomy. No evidence of sternal dehiscence. 22 x 36 x 36 mm air and fluid containing collection posterior to the left anterior costochondral junction. Smaller fluid posterior to the lower sternotomy measuring only 7 x 20 by 25 mm. Soft tissues: Unremarkable. IMPRESSION: Post sternotomy. No evidence of sternal wound dehiscence. Small 22 x 36 x 36 mm air and fluid containing collection posterior to the sternotomy and left anterior costochondral junction. A smaller 7 x 20 x 25 mm lower retrosternal collection is also present. Subsegmental atelectasis or infiltrate in the posteromedial left lung base.Very small left pleural fluid. PAGE 1 Signed Report (CONTINUED) Name: MARY DALY [facility] : 1955 Age/S: 66 / M [address] [place] [address] Unit #: [id number] Loc: [place] [address] Phys: Jaden Rodgers MD Acct: [id number] Dis Date: Status: ADM IN PHONE #: [phone] Exam Date: 08/15/2022 1318 FAX #: [phone] Reason: eval post CABG EXAMS: CPT CODE: [id number] CT CHEST W/O CONTRAST 63731 (Continued) [id number] Reported and signed by: Maik Sandra M.D. CC: Jaden Rodgers MD; Albino Torre MDTechnologist:Angeli Diaz, RT(R); Arely CTDI: DLP: Trnscb Date/Time: 08/15/2022 (1450) [email or web address] Orig Print D/T: S: 08/15/2022 (1450) PAGE 2 Signed Report- XR CHEST 1 [id number] 00:00:00 [facility] : 1955 Sex: M FAX: Jaden Urbano [place]: St: ADM FAX: Albino Castillo MD [phone] Name: MARY DALY [facility] : 1955 Age/S: 66/M [address] [place] [address] Unit #: [id number] Loc: G.3343 [place] [address] Phys: Jaden Balderas MD Acct: [id number] Dis Date: Status: ADM IN PHONE #: [phone] Exam Date: 08/15/2022 1233 FAX #: [phone] Reason: Chest Pain EXAMS: CPT CODE: [id number] XR CHEST 1 V 91049 PROCEDURE INFORMATION: Exam: XR Chest Exam date and time: 08/15/2022 12:26 PM Age: 66 years old Clinical i ndication: Other: Chest pain TECHNIQUE: Imaging protocol: Radiologic exam of the chest. Views: 1 view. COMPARISON: CR XR CHEST 1V 08/09/2022 5:49 AM FINDINGS: Lungs: There is interval decrease in the diffuse pulmonary edema. Lung volumes are stable. No consolidation. Pleural spaces: Unremarkable. No pleural effusion. No pneumothorax. Sternal suture wires are intact. Heart/Mediastinum: Heart size is within normal limits. Vasculature is unremarkable. Bones/joints: Unremarkable. IMPRESSION: Interval decrease in the diffuse pulmonary edema. at 1405 Reported and signed by: Breonna Noonan M.D. CC: Jaden Rodgers MD; Albino Torre MD Technologist: RT Kalli(Katherine) Trnscrd Date/Time/By: 08/15/2022 (623) : By: [email or web address] OrigPrint D/T: S: 08/15/2022 (1285) PAGE 1 Signed ReportCBC W/AUTO [id number] 08:16:00 Test Item Value Reference Range Interpretation Comments WHITE BLOOD CELL (test code = 11.5 x10 3/uL 4.5-11.0 H WBC) RED BLOOD CELL (test code = 2.66 x10 6/uL 4.00-5.60 L RBC) HEMOGLOBIN (test code = HGB) 8.3 g/dL 12.5-16.9 L HEMATOCRIT (test code = HCT) 25.8 % 37.5-50.7 L MEAN CELL VOLUME (test code = 97.0 fL 81.0-99.0 MCV) MEAN CELL HGB (test code = MCH) 31.2 pg 27.0-33.0 N MEAN CELL HGB CONCETRATION 32.2 g/dL 33.0-37.0 L (test code = MCHC) RED CELL DISTRIBUTION WIDTH CV 14.6 % 11.5-14.5 H (test code = RDW) RED CELL DISTRIBUTION WIDTH SD 51.1 fL 37.0-54.0 N (test code = RDW-SD) PLATELET COUNT (test code = 296 x10 3/uL 150-400 N PLT) MEAN PLATELET VOLUME (test code 11.0 fL 7.0-9.0 H = MPV) NEUTROPHIL % (test code = NT%) 67.9 % 56.0-77.0 N IMMATURE GRANULOCYTE % (test 0.8 % 0.0-2.0 N code = IG%) LYMPHOCYTE % (test code = LY%) 16.6 % 14.0-32.0 N MONOCYTE % (test code = MO%) 11.6 % 4.8-9.0 H EOSINOPHIL % (test code = EO%) 2.7 % 0.3-3.7 N BASOPHIL % (test code = BA%) 0.4 % 0.0-2.0 N NUCLEATED RBC % (test code = 0.3 % 0-0 H NRBC%) NEUTROPHIL # (test code = NT#) 7.80 x10 3/uL 2.0-7.6 H IMMATURE GRANULOCYTE # (test 0.09 x10 3/uL 0.00-0.03 H code = IG#) LYMPHOCYTE # (test code = LY#) 1.91 x10 3/uL 1.0-3.8 N MONOCYTE # (test code = MO#) 1.33 x10 3/uL 0.1-0.8 H EOSINOPHIL # (test code = EO#) 0.31 x10 3/uL 0.0-0.2 H BASOPHIL # (test code = BA#) 0.05 x10 3/uL 0.0-0.2 N NUCLEATED RBC # (test code = 0.03 x10 3/uL 0.0-0.1 N NRBC#) MANUAL DIFF REQUIRED (test code NO = MDIFF) BASIC METABOLIC [id number] 07:45:00 Test Item Value Reference Range Interpretation Comments SODIUM (test code = 140 mEq/L 134-147 N NA) POTASSIUM (test code 4.2 mEq/L 3.4-5.0 N = K) CHLORIDE (test code 109 mEq/L 100-108 H = CL) CARBON DIOXIDE (test 22 mEq/l 21-33 N code = CO2) ANION GAP (test code 13 0-20 N = GAP) GLUCOSE (test code = 109 mg/dL 70-110 N GLU) BLOOD UREA NITROGEN 9 mg/dL 7-18 N (test code = BUN) GLOMERULAR 96.4 80-90 H The Glomerular FILTRATION RATE Filtration R ate is a (test code = GFR) calculated parameterbased on serum Creatinine, pat ient age and sex. GFR va luesless than 60 mL/min/ 1.73 square meters a re indicative ofCh ronic Kidney Disease. Values less than 15 mL/min/1.73squa re meters indicate Kidney failure. The calculation forGFR is based on the CKD-EPI (2020) calculat ion. This formulais race indifferent and is the recommended for deborah for GFRby the [facility] on for Adults.The GFR will not calculate if th e sex is unknown or if thepatient's ag e is <18 years. CREATININE (test 0.8 mg/dL 0.6-1.3 N code = CREAT) CALCIUM (test code = 8.6 mg/dL 8.0-10.5 N CA) [id number] 07:45:00 Test Item Value Reference Range Interpretation Comments MAGNESIUM (test code = MAG) 2.10 mg/dL 1.80-2.40 N - XR CHEST 1 [id number] 00:00:00 [facility] : 1955 Sex: M FAX: Ludin John [phone] [place]: St: ADM FAX: Sam Mckoy MD [phone] FAX: Albino Castillo MD [phone] [facility] 1955 [facility]/S: 66[facility]M [address] [place] [address] Blvd Unit #: [id number] Loc: G.3346 [place] [address] Phys: Ludin Mccurdy MD Acct: [id number] Dis Date: Status: ADM IN PHONE #: [phone] Exam Date: 08/09/2022 0701 FAX #: [phone] Reason: S/P CABG, R/O EFFUSION EXAMS: CPT CODE: [id number] XR CHEST 1 V 87222 PROCEDURE INFORMATION: Exam: XR Chest Examdate and time: 08/09/2022 5:49 AM Age: 66 years old Clinical indication: Other: S/P cabg, R/O effusion TECHNIQUE: Imaging protocol: Radiologic exam of the chest. Views: 1 view. COMPARISON: CR XR CHEST 1V 08/08/2022 7:37 AM FINDINGS: Tubes, catheters and devices: Surgical clips overlie the mediastinum. Lungs: Moderate degree bilateral perihilar and basilar interstitial alveolar pulmonary edema versus infiltrates, pneumonia within the lungs. The pulmonary opacities are most prominent within the lower left lung. Pleural spaces: Small volume bilateral pleural effusions. No pneumothorax identified. Heart/Mediastinum: Cardiac silhouette appears moderately enlarged. Vasculature: Mild atherosclerotic calcification demonstrated within the aorta. Bones/joints: Sternotomy wires, hardware is demonstrated. Softtissues: This study is limited by patient's body habitus. Other findings: Limited evaluation with patient rotation. IMPRESSION: 1. Moderate enlarged cardiac silhouette. 2. Moderate pulmonary edema versus infiltrates, pneumonia. 3. Small bilateral pleural effusions. at 0911 Reported and signed by: Oracio Stoner M.D. CC: Ludin Mccurdy MD; Sam Price MD; Albino Torre MD Technologist: RT Lenore(Katherine) Trnscrd Date/Time/By: 08/09/2022 (910) : By: [email or web address] Orig Print D/T: S: 08/09/2022 (910) PAGE 1 Signed ReportBASIC METABOLIC PANEL 2022-08-08 07:47:00 Test Item Value Reference Range Interpretation Comments SODIUM (test code = 141 mEq/L 134-147 N NA) POTASSIUM (test code 3.7 mEq/L 3.4-5.0 N = K) CHLORIDE (test code 108 mEq/L 100-108 N = CL) CARBON DIOXIDE (test 25 mEq/l 21-33 N code = CO2) ANION GAP (test code 12 0-20 N = GAP) GLUCOSE (test code = 102 mg/dL 70-110 N GLU) BLOOD UREA NITROGEN 11 mg/dL 7-18 N (test code = BUN) GLOMERULAR 96.4 80-90 H The Glomerular FILTRATION RATE Filtration R ate is a (test code = GFR) calculated parameterbased on serum Creatinine, pat ient age and sex. GFR va luesless than 60 mL/min/ 1.73 square meters a re indicative ofCh ronic Kidney Disease. Values less than 15 mL/min/1.73squa re meters indicate Kidney failure. The calculation forGFR is based on the CKD-EPI (2020) calculat ion. This formulais race indifferent and is the recommended for deborah for GFRby the [facility] on for Adults.The GFR will not calculate if th e sex is unknown or if thepatient's ag e is <18 years. CREATININE (test 0.8 mg/dL 0.6-1.3 N code = CREAT) CALCIUM (test code = 8.3 mg/dL 8.0-10.5 N CA) [id number] 07:47:00 Test Item Value Reference Range Interpretation Comments PHOSPHOROUS (test code = PHOS) 4.3 MG/DL 2.5-4.9 N [id number] 07:47:00 Test Item Value Reference Range Interpretation Comments MAGNESIUM (test code = MAG) 2.05 mg/dL 1.80-2.40 N CBC W/AUTO [id number] 07:29:00 Test Item Value Reference Range Interpretation Comments WHITE BLOOD CELL (test code = 11.3 x10 3/uL 4.5-11.0 H WBC) RED BLOOD CELL (test code = 2.39 x10 6/uL 4.00-5.60 L RBC) HEMOGLOBIN (test code = HGB) 7.6 g/dL 12.5-16.9 L HEMATOCRIT (test code = HCT) 21.9 % 37.5-50.7 L MEAN CELL VOLUME (test code = 91.6 fL 81.0-99.0 MCV) MEAN CELL HGB (test code = MCH) 31.8 pg 27.0-33.0 N MEAN CELL HGB CONCETRATION 34.7 g/dL 33.0-37.0 N (test code = MCHC) RED CELL DISTRIBUTION WIDTH CV 14.2 % 11.5-14.5 N (test code = RDW) RED CELL DISTRIBUTION WIDTH SD 47.5 fL 37.0-54.0 N (test code = RDW-SD) PLATELET COUNT (test code = 223 x10 3/uL 150-400 N PLT) MEAN PLATELET VOLUME (test code 11.0 fL 7.0-9.0 H = MPV) NEUTROPHIL % (test code = NT%) 67.6 % 56.0-77.0 N IMMATURE GRANULOCYTE % (test 0.8 % 0.0-2.0 N code = IG%) LYMPHOCYTE % (test code = LY%) 17.1 % 14.0-32.0 N MONOCYTE % (test code = MO%) 12.0 % 4.8-9.0 H EOSINOPHIL % (test code = EO%) 2.1 % 0.3-3.7 N BASOPHIL % (test code = BA%) 0.4 % 0.0-2.0 N NUCLEATED RBC % (test code = 0.2 % 0-0 H NRBC%) NEUTROPHIL # (test code = NT#) 7.64 x10 3/uL 2.0-7.6 H IMMATURE GRANULOCYTE # (test 0.09 x10 3/uL 0.00-0.03 H code = IG#) LYMPHOCYTE # (test code = LY#) 1.93 x10 3/uL 1.0-3.8 N MONOCYTE # (test code = MO#) 1.36 x10 3/uL 0.1-0.8 H EOSINOPHIL # (test code = EO#) 0.24 x10 3/uL 0.0-0.2 H BASOPHIL # (test code = BA#) 0.04 x10 3/uL 0.0-0.2 N NUCLEATED RBC # (test code = 0.02 x10 3/uL 0.0-0.1 N NRBC#) MANUAL DIFF REQUIRED (test code NO = MDIFF) - XR CHEST 1 [id number] 00:00:00 [facility] 1955 Sex: M FAX: Ludin John [phone] [place]: St: ADM FAX: Sam Mckoy MD [phone] FAX: Albino Castillo MD [phone] Name: MARY DALY [facility] : 1955 Age/S: 66/M [address] [place] [address] Unit #:[id number] Loc: G.3346 [place] [address] Phys: Ludin Mccurdy MD Acct: [id number] Dis Date:Status: ADM IN PHONE #: [phone] Exam Date: 08/08/2022728 FAX #: [phone] Reason: CardiacSurgery Post Op EXAMS: CPT CODE: [id number] XR CHEST 1 V 28608 PROCEDURE INFORMATION: Exam: XR ChestExam date and time: 08/08/2022 7:37 AM Age: 66 years old Clinical indication: Other: Cardiac surgery post op TECHNIQUE: Imaging protocol: Radiologic exam of the chest. Views: 1 view. COMPARISON: CR XR CHEST 1V 08/07/2022 7:21 AM FINDINGS: Lungs: Improved left basilar opacities. The other lung opacities are stable. Pleural spaces: Small pleural effusions could be present. Tiny curvilinear density at theleft apex, equivocal for a small pneumothorax, involving less than 10% volume. Heart/Mediastinum: Stable enlarged heart size. Vasculature: Atherosclerotic calcifications. Bones/joints: Stable. Median sternotomy wires. Partially imaged postoperative change in the cervical spine. IMPRESSION: 1. Improved left basilar opacities. 2. Tiny curvilinear density at the left apex, equivocal for a small pneumothorax, involving less than 10% volume. Attention on follow-up exam. at 0928 Reported and signed by: Allan Diana M.D. CC: Ludin Mccurdy MD; Sam Price MD; Albino Torre MD Technologist: RT Kalli(Katherine) Trnscrd Date/Time/By: 08/08/2022 (924) : By: [email or web address] Orig Print D/T: S: 08/08/2022 (924) PAGE 1 Signed ReportCBC W/AUTO DIFF 2022-08-07 07:58:00 Test Item Value Reference Range Interpretation Comments WHITE BLOOD CELL (test code = 11.4 x10 3/uL 4.5-11.0 H WBC) RED BLOOD CELL (test code = 2.46 x10 6/uL 4.00-5.60 L RBC) HEMOGLOBIN (test code = HGB) 7.6 g/dL 12.5-16.9 L HEMATOCRIT (test code = HCT) 24.0 % 37.5-50.7 L MEAN CELL VOLUME (test code = 97.6 fL 81.0-99.0 MCV) MEAN CELL HGB (test code = MCH) 30.9 pg 27.0-33.0 N MEAN CELL HGB CONCETRATION 31.7 g/dL 33.0-37.0 L (test code = MCHC) RED CELL DISTRIBUTION WIDTH CV 14.6 % 11.5-14.5 H (test code = RDW) RED CELL DISTRIBUTION WIDTH SD 52.7 fL 37.0-54.0 N (test code = RDW-SD) PLATELET COUNT (test code = 192 x10 3/uL 150-400 N PLT) MEAN PLATELET VOLUME (test code 11.7 fL 7.0-9.0 H = MPV) NEUTROPHIL % (test code = NT%) 64.9 % 56.0-77.0 N IMMATURE GRANULOCYTE % (test 0.6 % 0.0-2.0 N code = IG%) LYMPHOCYTE % (test code = LY%) 18.5 % 14.0-32.0 N MONOCYTE % (test code = MO%) 12.7 % 4.8-9.0 H EOSINOPHIL % (test code = EO%) 3.0 % 0.3-3.7 N BASOPHIL % (test code = BA%) 0.3 % 0.0-2.0 N NUCLEATED RBC % (test code = 0.2 % 0-0 H NRBC%) NEUTROPHIL # (test code = NT#) 7.37 x10 3/uL 2.0-7.6 N IMMATURE GRANULOCYTE # (test 0.07 x10 3/uL 0.00-0.03 H code = IG#) LYMPHOCYTE # (test code = LY#) 2.10 x10 3/uL 1.0-3.8 N MONOCYTE # (test code = MO#) 1.44 x10 3/uL 0.1-0.8 H EOSINOPHIL # (test code = EO#) 0.34 x10 3/uL 0.0-0.2 H BASOPHIL # (test code = BA#) 0.03 x10 3/uL 0.0-0.2 N NUCLEATED RBC # (test code = 0.02 x10 3/uL 0.0-0.1 N NRBC#) MANUAL DIFF REQUIRED (test code NO = MDIFF) BASIC METABOLIC [id number] 07:35:00 Test Item Value Reference Range Interpretation Comments SODIUM (test code = 138 mEq/L 134-147 N NA) POTASSIUM (test code 4.1 mEq/L 3.4-5.0 N = K) CHLORIDE (test code 105 mEq/L 100-108 N = CL) CARBON DIOXIDE (test 25 mEq/l 21-33 N code = CO2) ANION GAP (test code 12 0-20 N = GAP) GLUCOSE (test code = 105 mg/dL 70-110 N GLU) BLOOD UREA NITROGEN 12 mg/dL 7-18 N (test code = BUN) GLOMERULAR 96.4 80-90 H The Glomerular FILTRATION RATE Filtration R ate is a (test code = GFR) calculated parameterbased on serum Creatinine, pat ient age and sex. GFR va luesless than 60 mL/min/ 1.73 square meters a re indicative ofCh ronic Kidney Disease. Values less than 15 mL/min/1.73squa re meters indicate Kidney failure. The calculation forGFR is based on the CKD-EPI (2020) calculat ion. This formulais race indifferent and is the recommended for deborah for GFRby the Natio nal Kidney Foundati on for Adults.The GFR will not calculate if th e sex is unknown or if thepatient's ag e is <18 years. CREATININE (test 0.8 mg/dL 0.6-1.3 N code = CREAT) CALCIUM (test code = 8.4 mg/dL 8.0-10.5 N CA) [id number] 07:35:00 Test Item Value Reference Range Interpretation Comments MAGNESIUM (test code = MAG) 2.00 mg/dL 1.80-2.40 N - [place] [id number] 00:00:00 [facility] 1955 Sex: M Name: MARY DALY [facility] : 1955 Age/S: 66 / M [address] [facility] Unit #: [id number] Loc: [place] [address] Phys: Rosalind Mendez Acct: [id number] Dis Date: Status: ADM IN PHONE#: [phone] Exam Date: 08/07/2022 1309 FAX #: [phone] Reason: R/O DVT EXAMS: CPT CODE: [id number] [place] [address] PROCEDURE INFORMATION: Exam: US Duplex Lower Extremity Veins, Bilateral Exam date and time: 08/07/2022 11:08 AM Age: 66 years old Clinical indication: Condition or disease; Other: S/P cabg; Additional info: R/O dvt TECHNIQUE: Imaging protocol: Real-time duplex ultrasound of the bilateral extremities with 2-D walters scale, color Doppler flow and spectral waveform analysis including responses to compression and other maneuvers (when performed) with image documentation. Complete exam focused on the lower extremity veins. COMPARISON: US [place] 07/28/2022 11:04 AM FINDINGS: Right deep veins: Unremarkable. The common femoral, femoral, proximal profunda femoral and popliteal veins are patent without thrombus. Normal Doppler waveforms. Normal compressibility and/or augmentationresponse. Right superficial veins: Saphenofemoral junction is patent without thrombus. Left deep veins: Unremarkable. The common femoral, femoral, proximal profunda femoral and popliteal veins are patent without thrombus. Normal Doppler waveforms. Normal compressibility and/or augmentation response. Left superficial veins: Saphenofemoral junction is patent without thrombus. Soft tissues: Unremarkable. IMPRESSION: No evidence of deep vein thrombosis. at 1518 Reported and signed by: Esvin Guardado M.D. CC: Sam Price MD; Albino Torre MD; Rosalind Mendez Technologist: Carolyn Prather Trnscb Date/Time: 08/07/2022 (1517) [email or web address] Orig Print D/T: S: 08/07/2022 (151) Probe: PAGE 1 Signed Report- XR CHEST 1 V 2022-08-07 00:00:00 [facility] : 1955 Sex: M FAX: Ludin John [phone] [place]: St: ADM FAX: Sam Mckoy MD [phone] FAX: Albino Castillo MD [phone] Name: MARY DALY [facility] : 1955 Age/S: 66/M [address] [place] [address] Unit #:[id number] Loc: G.3346 [place] [address] Phys: Ludin Mccurdy MD Acct: [id number] Dis Date: Status: ADM IN PHONE #: [phone] Exam Date: 08/07/2022816 FAX #: [phone] Reason: Cardiac Surgery Post Op EXAMS: CPT CODE: [id number] XR CHEST 1 V 40098 PROCEDURE INFORMATION: Exam: XR Chest Exam date and time: 08/07/2022 7:21 AM Age: 66 years old Clinical indication: Other: Cardiac surgery post op TECHNIQUE: Imaging protocol: Radiologic exam of the chest. Views: 1 view. COMPARISON: CR XR CHEST 1V 08/06/2022 6:19 AM FINDINGS: Lungs: Retrocardiac atelectasis and small left effusion. Pleural spaces: Unremarkable. No pleural effusion. No pneumothorax. Heart/Mediastinum: Cardiomegaly. Bones/joints: Sternotomy. Other findings: Decreased congestive change. IMPRESSION: Retrocardiac atelectasis and small left effusion. at 1352 Reported and signed by: Nestor Leblanc M.D. CC: Ludin Mccurdy MD; Sam Price MD; Albino Torre MD Technologist: Issa Bey, RT(R); Muriel Jacobs RT(R) Trnscrd Date/Time/By: 08/07/2022 (6880) : By: [email or web address] Orig Print D/T: S: 08/07/2022 (4595) PAGE 1 Signed ReportCBC W/AUTO DIFF 2022-08-06 11:25:00 Test Item Value Reference Range Interpretation Comments WHITE BLOOD CELL (test code = 12.9 x10 3/uL 4.5-11.0 H WBC) RED BLOOD CELL (test code = 2.58 x10 6/uL 4.00-5.60 L RBC) HEMOGLOBIN (test code = HGB) 8.3 g/dL 12.5-16.9 L HEMATOCRIT (test code = HCT) 23.8 % 37.5-50.7 L MEAN CELL VOLUME (test code = 92.2 fL 81.0-99.0 N MCV) MEAN CELL HGB (test code = MCH) 32.2 pg 27.0-33.0 N MEAN CELL HGB CONCETRATION 34.9 g/dL 33.0-37.0 N (test code = MCHC) RED CELL DISTRIBUTION WIDTH CV 14.4 % 11.5-14.5 N (test code = RDW) RED CELL DISTRIBUTION WIDTH SD 48.3 fL 37.0-54.0 N (test code = RDW-SD) PLATELET COUNT (test code = 172 x10 3/uL 150-400 N PLT) MEAN PLATELET VOLUME (test code 11.9 fL 7.0-9.0 H = MPV) NEUTROPHIL % (test code = NT%) 70.0 % 56.0-77.0 N IMMATURE GRANULOCYTE % (test 0.5 % 0.0-2.0 N code = IG%) LYMPHOCYTE % (test code = LY%) 14.6 % 14.0-32.0 N MONOCYTE % (test code = MO%) 12.8 % 4.8-9.0 H EOSINOPHIL % (test code = EO%) 1.9 % 0.3-3.7 N BASOPHIL % (test code = BA%) 0.2 % 0.0-2.0 N NUCLEATED RBC % (test code = 0.0 % 0-0 N NRBC%) NEUTROPHIL # (test code = NT#) 9.01 x10 3/uL 2.0-7.6 H IMMATURE GRANULOCYTE # (test 0.07 x10 3/uL 0.00-0.03 H code = IG#) LYMPHOCYTE # (test code = LY#) 1.88 x10 3/uL 1.0-3.8 N MONOCYTE # (test code = MO#) 1.65 x10 3/uL 0.1-0.8 H EOSINOPHIL # (test code = EO#) 0.24 x10 3/uL 0.0-0.2 H BASOPHIL # (test code = BA#) 0.03 x10 3/uL 0.0-0.2 N NUCLEATED RBC # (test code = 0.00 x10 3/uL 0.0-0.1 N NRBC#) MANUAL DIFF REQUIRED (test code NO = MDIFF) BASIC METABOLIC [id number] 07:44:00 Test Item Value Reference Range Interpretation Comments SODIUM (test code = 136 mEq/L 134-147 N NA) POTASSIUM (test code 4.4 mEq/L 3.4-5.0 N = K) CHLORIDE (test code 103 mEq/L 100-108 N = CL) CARBON DIOXIDE (test 24 mEq/l 21-33 N code = CO2) ANION GAP (test code 14 0-20 N = GAP) GLUCOSE (test code = 105 mg/dL 70-110 N GLU) BLOOD UREA NITROGEN 12 mg/dL 7-18 N (test code = BUN) GLOMERULAR 96.4 80-90 H The Glomerular FILTRATION RATE Filtration R ate is a (test code = GFR) calculated parameterbased on serum Creatinine, pat ient age and sex. GFR va luesless than 60 mL/min/ 1.73 square meters a re indicative ofCh ronic Kidney Disease. Values less than 15 mL/min/1.73squa re meters indicate Kidney failure. The calculation forGFR is based on the CKD-EPI (2020) calculat ion. This formulais race indifferent and is the recommended for deborah for GFRby the Natio nal Kidney Foundati on for Adults.The GFR will not calculate if th e sex is unknown or if thepatient's ag e is <18 years. CREATININE (test 0.8 mg/dL 0.6-1.3 N code = CREAT) CALCIUM (test code = 8.8 mg/dL 8.0-10.5 N CA) [id number] 07:44:00 Test Item Value Reference Range Interpretation Comments MAGNESIUM (test code = MAG) 2.03 mg/dL 1.80-2.40 N - XR CHEST 1 [id number] 00:00:00 [facility] : 1955 Sex: M FAX: Ludin John [phone] [place]: St: ADM FAX: Sam Mckoy MD [phone] FAX: Albino Castillo MD [phone] Name: AMRY DALY [facility] : 1955 Age/S: 66/M [address] [place] [address] Unit #:[id number] Loc: G.3346 [place] [address] Phys: Ludin Mccurdy MD Acct: [id number] Dis Date:Status: ADM IN PHONE #: [phone] Exam Date: 08/06/2022 06 FAX #: [phone] Reason: Cardiac Surgery Post Op EXAMS: CPT CODE: [id number] XR CHEST 1 V 60837 PROCEDURE INFORMATION: Exam: XR Chest Exam date and time: 08/06/2022 6:19 AM Age: 66 years old Clinical indication: Other: Cardiac surgery post op TECHNIQUE: Imaging protocol: Radiologic exam of the chest. Views: 1 view. COMPARISON: CR XR CHEST 1V 08/05/2022 5:38 AM FINDINGS: Tubes, catheters and devices: Left chest tube removed. Lungs: Pulmonary vasculature appears congested and there is prominence of the pulmonary interstitium particularlyin the mid to lower lung zones suggesting CHF and pulmonary edema. Pleural spaces: Small posterior layering left pleural effusion. No pneumothorax. Heart/Mediastinum: Stable large cardiac silhouette. Bones/joints: Median sternotomy wires. IMPRESSION: Interval removal left chest tube. No pneumothorax. Small posterior layering left pleural effusion may be present. Cardiomegaly, with apparent pulmonary vascular congestion and pulmonary edema. Electronically Signed by Remedios Sandra on 0 08/06/2022 at 0826 Reported and signed by: Maik Sandra M.D. CC: Ludin Mccurdy MD; Sam Price MD; Albino Torre MD Technologist: Belem Stark RT(R) Trnscrd Date/Time/By: 08/06/2022 (825) : By: [email or web address] Orig Print D/T: S: 08/06/2022 (0827) PAGE 1 Signed [id number] 13:57:00 Test Item Value Reference Interpretation Comments Range SURGICAL (test code = SR) RUN DATE: 08/05/22 FIGS PAGE 1 RUN TIME: 1357 Specimen Inquiry RUN USER: INTERFACE PATIENT: MARY DALY LOC: JOS[facility] U #: [id number] AGE/SX: 66/M ROOM: [facility] RE07/30/22REG DR: Anthony Loaiza MD : [birth year] BED: 1 DIS: STATUS: ADM IN TLOC: SPEC #: [id number] RECD: 08/03/22-1015 STATUS: TERRY REQ #: [id number] MELODY: 08/02/22- SUBM DR: Ludin Mccurdy MD ENTERED: 08/03/22-1016 SP TYPE: SURGICAL OTHR DR: Sam Fallon MD, Imtiaz MD Aldeiri, Molham MD Chaugle, Abdul Hannan MD Raslan, Saleem MD Resnick, Harvey MDORDERED: 54080, ANATOMIC SPEC COPIES TO: Sam Fallon MD [address] [place] [address], [address] [place] [address] Sterling Hidalgo MD [address] [place] [address] Flako Sainz MD [address] [place] [address] Ludin Mccurdy MD [address] [place] [address]. [address] [place] [address] Sam Price MD [address] [facility] [address] [place], [place] [address] Albino Torre MD [address] [place] [address] [address] [place] [address] PROCEDURES: 40392 (08/03/22-1015) CONTINUED ON NEXT PAGE RUN DATE: 08/05/22 [place] - LAB PAGE 2 RUN TIME: 1357 Specimen Inquiry RUN USER: INTERFACE SPEC #: [id number] PATIENT: MARY DALY #[id number] (Continued) - TISSUES: A. ATRIUM - LEFT ATRIAL APPENDAGE CLINICAL HISTORY SAME FINAL DIAGNOSIS HEART, LEFT ATRIAL APPENDAGE: - Cardiac atrial tissue with mild fatty infiltrate, no atypia or ischemic changes present. GROSS DESCRIPTION Specimen received labeled with patient's name and date of .Received in formalin and designated as left atrial appendage is 1 segment of yellow softand pink-garcia tissue measuring 3.9 cm in largest dimension. Sections are submitted as A. Technical component performed at [facility] [place],[address] [place] [address], [place] [address] Unless gross only, the diagnosis is based upon microscopic examination.Immunohistochemistry: This test was developed and its performance characteristicsdetermined by this laboratory. It has not been approved nor does it need approvalby the [place] FDA. Appropriate positive and negative controls are reviewed and judgedto be acceptable for performedimmunohistochemistry and/or special stains. This laboratoryis certified under the Clinical Laboratory Improvement Amendments (CLIA-88) as qualified toperform high complexity clinical laboratory testing. MICROSCOPIC DESCRIPTION Microscopic examination supports the pathologic diagnosis. CLINICAL INFORMATION CAD Signed SIGNATURE ON FILE [place] 08/05/22 1357 END OF REPORT CBC W/AUTO [id number] 07:29:00 Test Item Value Reference Range Interpretation Comments WHITE BLOOD CELL (test code = 14.8 x10 3/uL 4.5-11.0 H WBC) RED BLOOD CELL (test code = 2.74 x10 6/uL 4.00-5.60 L RBC) HEMOGLOBIN (test code = HGB) 8.6 g/dL 12.5-16.9 L HEMATOCRIT (test code = HCT) 25.7 % 37.5-50.7 L MEAN CELL VOLUME (test code = 93.8 fL 81.0-99.0 N MCV) MEAN CELL HGB (test code = MCH) 31.4 pg 27.0-33.0 N MEAN CELL HGB CONCETRATION 33.5 g/dL 33.0-37.0 N (test code = MCHC) RED CELL DISTRIBUTION WIDTH CV 14.4 % 11.5-14.5 N (test code = RDW) RED CELL DISTRIBUTION WIDTH SD 48.7 fL 37.0-54.0 N (test code = RDW-SD) PLATELET COUNT (test code = 121 x10 3/uL 150-400 L PLT) MEAN PLATELET VOLUME (test code 12.0 fL 7.0-9.0 H = MPV) NEUTROPHIL % (test code = NT%) 67.4 % 56.0-77.0 N IMMATURE GRANULOCYTE % (test 0.6 % 0.0-2.0 N code = IG%) LYMPHOCYTE % (test code = LY%) 15.7 % 14.0-32.0 N MONOCYTE % (test code = MO%) 15.0 % 4.8-9.0 H EOSINOPHIL % (test code = EO%) 1.1 % 0.3-3.7 N BASOPHIL % (test code = BA%) 0.2 % 0.0-2.0 N NUCLEATED RBC % (test code = 0.0 % 0-0 N NRBC%) NEUTROPHIL # (test code = NT#) 9.99 x10 3/uL 2.0-7.6 H IMMATURE GRANULOCYTE # (test 0.09 x10 3/uL 0.00-0.03 H code = IG#) LYMPHOCYTE # (test code = LY#) 2.33 x10 3/uL 1.0-3.8 N MONOCYTE # (test code = MO#) 2.22 x10 3/uL 0.1-0.8 H EOSINOPHIL # (test code = EO#) 0.16 x10 3/uL 0.0-0.2 N BASOPHIL # (test code = BA#) 0.03 x10 3/uL 0.0-0.2 N NUCLEATED RBC # (test code = 0.00 x10 3/uL 0.0-0.1 N NRBC#) MANUAL DIFF REQUIRED (test code NO = MDIFF) BASIC METABOLIC [id number] 06:12:00 Test Item Value Reference Range Interpretation Comments SODIUM (test code = 135 mEq/L 134-147 N NA) POTASSIUM (test code 4.2 mEq/L 3.4-5.0 N = K) CHLORIDE (test code 106 mEq/L 100-108 N = CL) CARBON DIOXIDE (test 25 mEq/l 21-33 N code = CO2) ANION GAP (test code 9 0-20 N = GAP) GLUCOSE (test code = 105 mg/dL 70-110 N GLU) BLOOD UREA NITROGEN 13 mg/dL 7-18 N (test code = BUN) GLOMERULAR 96.4 80-90 H The Glomerular FILTRATION RATE Filtration R ate is a (test code = GFR) calculated parameterbased on serum Creatinine, pat ient age and sex. GFR va luesless than 60 mL/min/ 1.73 square meters a re indicative ofCh ronic Kidney Disease. Values less than 15 mL/min/1.73squa re meters indicate Kidney failure. The calculation forGFR is based on the CKD-EPI (2020) calculat ion. This formulais race indifferent and is the recommended for deborah for GFRby the Natio nal Kidney Foundati on for Adults.The GFR will not calculate if th e sex is unknown or if thepatient's ag e is <18 years. CREATININE (test 0.8 mg/dL 0.6-1.3 N code = CREAT) CALCIUM (test code = 8.8 mg/dL 8.0-10.5 N CA) COMMENTS: POD #1HEPATIC FUNCTION [id number] 06:12:00 Test Item Value Reference Range Interpretation Comments TOTAL PROTEIN (test code = PROT) 5.8 g/dL 6.4-8.2 L ALBUMIN (test code = ALB) 3.60 g/dL 3.4-5.0 N BILIRUBIN TOTAL (test code = BILT) 0.80 mg/dL 0.0-1.0 BILIRUBIN DIRECT (test code = 0.40 MG/DL 0.0-0.30 H BILD) BILIRUBIN INDIRECT (test code = 0.40 MG/DL BILIND) SGOT/AST (test code = AST) 43 IUnit/L 15-37 H SGPT/ALT (test code = ALT) 16 IUnit/L 30-65 L ALKALINE PHOSPHATASE TOTAL (test 47 IUnit/L 20-125 N code = ALKP) COMMENTS: POD #[id number] 06:12:00 Test Item Value Reference Range Interpretation Comments MAGNESIUM (test code = MAG) 2.14 mg/dL 1.80-2.40 N COMMENTS: POD #1- XR CHEST 1 [id number] 00:00:00 [facility] ALEAH POWELLName: MARY DALY : 1955 Sex: M FAX: Ludin John [phone] [place]: St: ADM FAX: Sam Mckoy MD [phone] FAX: Albino Castillo MD [phone] Name: MARY DALY [facility] Aleah Powell : 1955 Age/S: 66/M [address] [place] [address] Unit #: [id number] Loc: G.2207 [place] [address] Phys: Ludin Mccurdy MD Acct: [id number] Dis Date: Status: ADM IN PHONE #: [phone] Exam Date: 08/05/2022 0656 FAX #: [phone] Reason: Cardiac Surgery Post Op EXAMS: CPT CODE: [id number] XR CHEST 1 V 82892 PROCEDURE INFORMATION: Exam: XR Chest Exam date and time: 08/05/2022 5:38 AM Age: 66 years old Clinical indication: Other: Cardiac surgery post op TECHNIQUE: Imaging protocol: Radiologic exam of the chest. Views: 1 view. COMPARISON: CR XR CHEST 1V 08/04/2022 5:38 AM FINDINGS: Tubes, catheters and devices: Removal of the right IJ catheter sheath. Stable left chest tube. Lungs: Bilateral lung opacities have increased. Pleural spaces: Small pleural effusions could be present. No definite pneumothorax. Heart/Mediastinum: The enlarged heart sizeis stable. Vasculature: Atherosclerotic calcifications. Bones/joints: Stable. Median sternotomy wires. IMPRESSION: 1. Worsening lung opacities. 2. Resolution of small left pneumothorax. Stable left chest tube. 3. Removal of right catheter sheath. at 0813 Reported and signed by: Allan Diana M.D. CC: Ludin Mccurdy MD; Sam Price MD; Albino Torre MD Technologist: William Bashir RT(R) Trnscrd Date/Time/By: 08/05/2022 (812) : By: [email or web address] Orig Print D/T: S: 08/05/2022 (812) PAGE 1 Signed ReportBASIC METABOLIC [id number] 15:41:00 Test Item Value Reference Range Interpretation Comments SODIUM (test code = 140 mEq/L 134-147 N NA) POTASSIUM (test code 3.9 mEq/L 3.4-5.0 N = K) CHLORIDE (test code 107 mEq/L 100-108 N = CL) CARBON DIOXIDE (test 25 mEq/l 21-33 N code = CO2) ANION GAP (test code 12 0-20 N = GAP) GLUCOSE (test code = 123 mg/dL 70-110 H GLU) BLOOD UREA NITROGEN 13 mg/dL 7-18 N (test code = BUN) GLOMERULAR 100.4 80-90 H The Glomerular FILTRATION RATE Filtration R ate is a (test code = GFR) calculated parameterbased on serum Creatinine, pat ient age and sex. GFR va luesless than 60 mL/min/ 1.73 square meters a re indicative ofCh ronic Kidney Disease. Values less than 15 mL/min/1.73squa re meters indicate Kidney failure. The calculation forGFR is based on the CKD-EPI (2020) calculat ion. This formulais race indifferent and is the recommended for deborah for GFRby the Natio nal Kidney Foundati on for Adults.The GFR will not calculate if th e sex is unknown or if thepatient's ag e is <18 years. CREATININE (test 0.7 mg/dL 0.6-1.3 N code = CREAT) CALCIUM (test code = 8.0 mg/dL 8.0-10.5 N CA) [id number] 15:41:00 Test Item Value Reference Range Interpretation Comments MAGNESIUM (test code = MAG) 2.16 mg/dL 1.80-2.40 N - XR CHEST 1 [id number] 10:00:00 [facility] : 1955 Sex: M FAX: Ludin John [phone] [place]: St: ADM FAX: Sam Mckoy MD [phone] FAX: Albino Castillo MD [phone] Name: MARY DALY [facility] : 1955 Age/S: 66/M [address] [place] [address] Blvd Unit #: [id number] Loc: GNico[address] [place] [address] Phys: Ludin Mccurdy MD Acct: [id number] Dis Date: Status: ADM IN PHONE #: [phone] Exam Date: 08/04/2022 0540 FAX #: [phone] Reason: Cardiac Surgery Post Op EXAMS: CPT CODE: [id number] XR CHEST 1 V 75382 CHEST ONE VIEW Dictation location N 13 Clinical history post cardiac surgery TECHNIQUE: Single frontal view of the chest was obtained and is compared to a prior study August 03 0537 hours FINDINGS: There has been prior lower cervical fusion andmidline sternotomy post cardiac surgery. Left-sided chest tube remains at the left basilar lower dain thorax. There is a small 10% left-sided pneumothorax. Trace left pleural fluid also seen. Mild interstitial infiltrates are seen in the lower two thirds of the left lung. IMPRESSION: 1. Small left-sided 10% pneumothorax with a chest tube in place. 2. Findings were called to MARCELINO Carr, CVICU nurse at 10:00 AM at 1000 Reported andsigned by: Radha Stanley M.D. CC: Ludin Mccurdy MD; Sam Price MD; Albino Torre MD Technologist: Belem Stark RT(R) Trnscrd Date/Time/By: 08/04/2022 (1000) : By: Vadim Orig Print D/T: S: 08/04/2022 (1003) PAGE 1 Signed ReportCBC W/AUTO [id number] 03:31:00 Test Item Value Reference Range Interpretation Comments WHITE BLOOD CELL 12.1 x10 3/uL 4.5-11.0 H (test code = WBC) RED BLOOD CELL (test 2.45 x10 6/uL 4.00-5.60 L code = RBC) HEMOGLOBIN (test code 7.7 g/dL 12.5-16.9 L = HGB) HEMATOCRIT (test code 22.4 % 37.5-50.7 L = HCT) MEAN CELL VOLUME 91.4 fL 81.0-99.0 N (test code = MCV) MEAN CELL HGB (test 31.4 pg 27.0-33.0 N code = MCH) MEAN CELL HGB 34.4 g/dL 33.0-37.0 N CONCETRATION (test code = MCHC) RED CELL DISTRIBUTION 14.3 % 11.5-14.5 N WIDTH CV (test code = RDW) RED CELL DISTRIBUTION 48.4 fL 37.0-54.0 N WIDTH SD (test code = RDW-SD) PLATELET COUNT (test 86 x10 3/uL 150-400 L code = PLT) IMMATURE PLATELET 7.3 % 0.9-11.2 N FRACTION (test code = IPF) MEAN PLATELET VOLUME 11.6 fL 7.0-9.0 H (test code = MPV) NEUTROPHIL % (test 63.4 % 56.0-77.0 N code = NT%) LYMPHOCYTE % (test 14.8 % 14.0-32.0 N code = LY%) NEUTROPHIL # (test 7.68 x10 3/uL 2.0-7.6 H code = NT#) LYMPHOCYTE # (test 1.79 x10 3/uL 1.0-3.8 N code = LY#) MANUAL DIFF REQUIRED NO SLIDE R DAVID, (test code = MDIFF) CONSISTE NT WITH AUTO DIFF. IMMATURE GRANULOCYTE 0.4 % 0.0-2.0 N % (test code = IG%) MONOCYTE % (test code 21.2 % 4.8-9.0 H = MO%) EOSINOPHIL % (test 0.1 % 0.3-3.7 L code = EO%) BASOPHIL % (test code 0.1 % 0.0-2.0 N = BA%) NUCLEATED RBC % (test 0.0 % 0-0 N code = NRBC%) IMMATURE GRANULOCYTE 0.05 x10 3/uL 0.00-0.03 H # (test code = IG#) MONOCYTE # (test code 2.56 x10 3/uL 0.1-0.8 H = MO#) EOSINOPHIL # (test 0.01 x10 3/uL 0.0-0.2 N code = EO#) BASOPHIL # (test code 0.01 x10 3/uL 0.0-0.2 N = BA#) NUCLEATED RBC # (test 0.00 x10 3/uL 0.0-0.1 N code = NRBC#) PLT [id number] 03:31:00 Test Item Value Reference Range Interpretation Comments PLATELET ESTIMATE (test code 100-125 THOUSAND ADEQUATE = PLTEST) BASIC METABOLIC [id number] 03:20:00 Test Item Value Reference Range Interpretation Comments SODIUM (test code = 137 mEq/L 134-147 N NA) POTASSIUM (test code 3.8 mEq/L 3.4-5.0 N = K) CHLORIDE (test code 110 mEq/L 100-108 H = CL) CARBON DIOXIDE (test 25 mEq/l 21-33 N code = CO2) ANION GAP (test code 6 0-20 N = GAP) GLUCOSE (test code = 109 mg/dL 70-110 N GLU) BLOOD UREA NITROGEN 12 mg/dL 7-18 N (test code = BUN) GLOMERULAR 96.4 80-90 H The Glomerular FILTRATION RATE Filtration R ate is a (test code = GFR) calculated parameterbased on serum Creatinine, pat ient age and sex. GFR va luesless than 60 mL/min/ 1.73 square meters a re indicative ofCh ronic Kidney Disease. Values less than 15 mL/min/1.73squa re meters indicate Kidney failure. The calculation forGFR is based on the CKD-EPI (2020) calculat ion. This formulais race indifferent and is the recommended for deborah for GFRby the Natio nal Kidney Foundati on for Adults.The GFR will not calculate if th e sex is unknown or if thepatient's ag e is <18 years. CREATININE (test 0.8 mg/dL 0.6-1.3 N code = CREAT) CALCIUM (test code = 8.2 mg/dL 8.0-10.5 N CA) COMMENTS: POD #1HEPATIC FUNCTION [id number] 03:20:00 Test Item Value Reference Range Interpretation Comments TOTAL PROTEIN (test code = PROT) 5.1 g/dL 6.4-8.2 L ALBUMIN (test code = ALB) 3.70 g/dL 3.4-5.0 N BILIRUBIN TOTAL (test code = BILT) 0.60 mg/dL 0.0-1.0 N BILIRUBIN DIRECT (test code = 0.30 MG/DL 0.0-0.30 N BILD) BILIRUBIN INDIRECT (test code = 0.30 MG/DL BILIND) SGOT/AST (test code = AST) 34 IUnit/L 15-37 N SGPT/ALT (test code = ALT) 14 IUnit/L 30-65 L ALKALINE PHOSPHATASE TOTAL (test 32 IUnit/L 20-125 N code = ALKP) COMMENTS: POD #[id number] 03:20:00 Test Item Value Reference Range Interpretation Comments MAGNESIUM (test code = MAG) 2.13 mg/dL 1.80-2.40 N COMMENTS: POD #[id number] ARTERIAL BLOOD [id number] 02:57:00 Test Item Value Reference Range Interpretation Comments POC ARTERIAL BLOOD GAS PH (test 7.456 7.35-7.45 H code = POCPHA) POC ARTERIAL BLOOD GAS PCO2 (test 34.5 mmHg 35.0-45 L code = [id number]) POC TCO2 ARTERIAL (test code = 25.1 POCTCO2) POC ARTERIAL BLOOD GAS PO2 (test 60.9 mmHg 80-100.0 L code = [id number]) POC HCO3 ARTERIAL (test code = 24.1 MMOL/L 22.0-26.0 N [id number]) POC BASE EXCESS (test code = 0.5 MMOL/L -4.0-4.0 N POCBEA) POC O2 SATURATION (test code = 91.1 % 90-100 N POCO2S) ABG DELIVERY (test code = KIRBY) Cannula ABG TEMPERATURE (test code = 100.6 F TEMPA) ABG SITE (test code = SITEA) Art Line NAZIA'S TEST (test code = ALLENS) N/A BASIC METABOLIC [id number] 02:57:00 Test Item Value Reference Range Interpretation Comments SODIUM (test code = NA/ABG) 138 mmol/L 134-147 N POTASSIUM (test code = K/ABG) 3.7 mmol/L 3.4-5.0 N CHLORIDE (test code = CL/ABG) 105 mmol/L 100-108 N CREATININE ABG (test code = 0.8 mg/dL 0.8-1.3 N CREAABG) POC IONIZED CALCIUM (test code = 1.20 MMOL/L 1.12-1.32 N POCCA) POC GLUCOSE (test code = POCGLU) 92 MG/DL 70-110 N HEMOGLOBIN [id number] 02:57:00 Test Item Value Reference Range Interpretation Comments HEMOGLOBIN ABG (test code = HGB/ABG) 7.2 G/DL 12.5-16.9 L [id number] 02:57:00 Test Item Value Reference Range Interpretation Comments HEMATOCRIT (test code = HCT/ABG) 21 % 37.5-50.7 L POC LACTIC [id number] 02:57:00 Test Item Value Reference Range Interpretation Comments POC LACTIC ACID (test code = 0.5 mmol/l 0.9-1.7 L POCLAC) POC ARTERIAL BLOOD [id number] 07:03:00 Test Item Value Reference Range Interpretation Comments POC ARTERIAL BLOOD GAS PH (test 7.398 7.35-7.45 N code = POCPHA) POC ARTERIAL BLOOD GAS PCO2 (test 36.4 mmHg 35.0-45 N code = [id number]) POC TCO2 ARTERIAL (test code = 23.5 POCTCO2) POC ARTERIAL BLOOD GAS PO2 (test 83.2 mmHg 80-100.0 N code = FTKUW5V) POC HCO3 ARTERIAL (test code = 22.4 MMOL/L 22.0-26.0 N UFZDPT1G) POC BASE EXCESS (test code = -2.4 MMOL/L -4.0-4.0 N POCBEA) POC O2 SATURATION (test code = 96.1 % 90-100 N POCO2S) ABG DELIVERY (test code = KIRBY) Cannula ABG TEMPERATURE (test code = 99.1 F TEMPA) ABG SITE (test code = SITEA) Art Line BASIC METABOLIC [id number] 07:03:00 Test Item Value Reference Range Interpretation Comments SODIUM (test code = NA/ABG) 141 mmol/L 134-147 N POTASSIUM (test code = K/ABG) 4.0 mmol/L 3.4-5.0 N CHLORIDE (test code = CL/ABG) 110 mmol/L 100-108 H CREATININE ABG (test code = 0.8 mg/dL 0.8-1.3 N CREAABG) POC IONIZED CALCIUM (test code = 1.17 MMOL/L 1.12-1.32 N POCCA) POC GLUCOSE (test code = POCGLU) 114 MG/DL 70-110 H HEMOGLOBIN [id number] 07:03:00 Test Item Value Reference Range Interpretation Comments HEMOGLOBIN ABG (test code = HGB/ABG) 9.1 G/DL 12.5-16.9 L [id number] 07:03:00 Test Item Value Reference Range Interpretation Comments HEMATOCRIT (test code = HCT/ABG) 27 % 37.5-50.7 L POC LACTIC [id number] 07:03:00 Test Item Value Reference Range Interpretation Comments POC LACTIC ACID (test code = 0.9 mmol/l 0.9-1.7 N POCLAC) BASIC METABOLIC [id number] 04:12:00 Test Item Value Reference Range Interpretation Comments SODIUM (test code = NA/ABG) 141 mmol/L 134-147 N POTASSIUM (test code = K/ABG) 4.2 mmol/L 3.4-5.0 N CHLORIDE (test code = CL/ABG) 107 mmol/L 100-108 N CREATININE ABG (test code = 0.7 mg/dL 0.8-1.3 L CREAABG) POC IONIZED CALCIUM (test code = 1.21 MMOL/L 1.12-1.32 N POCCA) POC GLUCOSE (test code = POCGLU) 104 MG/DL 70-110 N HEMOGLOBIN [id number] 04:12:00 Test Item Value Reference Range Interpretation Comments HEMOGLOBIN ABG (test code = HGB/ABG) 8.7 G/DL 12.5-16.9 L [id number] 04:12:00 Test Item Value Reference Range Interpretation Comments HEMATOCRIT (test code = HCT/ABG) 26 % 37.5-50.7 L POC LACTIC [id number] 04:12:00 Test Item Value Reference Range Interpretation Comments POC LACTIC ACID (test code = 0.5 mmol/l 0.9-1.7 L POCLAC) POC VENOUS BLOOD [id number] 04:12:00 Test Item Value Reference Range Interpretation Comments POC VENOUS BLOOD GAS PH (test 7.365 7.33-7.45 N code = POCPHV) POC VENOUS BLOOD GAS PCO2 (test 43.0 mmHg 43-47 N code = ATNCLZ7Q) POC VENOUS BLOOD GAS PO2 (test 35.6 mmHG 10-50 N code = KZJVT7H) POC TCO2 VENOUS (test code = 25.8 GIJQXN8N) POC HCO3 VENOUS (test code = 24.5 MMOL/L 22-27 N SUDBQK6G) POC BASE EXCESS VENOUS (test code -0.8 MMOL/L -4.0-4.0 N = POCBEV) POC O2 SATURATION VENOUS (test 65.6 % 60-80 N code = CMNE5PV) VENOUS BLOOD GAS DELIVERY (test Cannula code = DELV) VENOUS BLOOD GAS TEMP (test code 98.8 F = TEMPV) VENOUS BLOOD GAS SITE (test code Quang Thrasher = SITEV) BASIC METABOLIC [id number] 04:01:00 Test Item Value Reference Range Interpretation Comments SODIUM (test code = 141 mEq/L 134-147 N NA) POTASSIUM (test code 4.3 mEq/L 3.4-5.0 N = K) CHLORIDE (test code 110 mEq/L 100-108 H = CL) CARBON DIOXIDE (test 25 mEq/l 21-33 N code = CO2) ANION GAP (test code 10 0-20 N = GAP) GLUCOSE (test code = 97 mg/dL 70-110 GLU) BLOOD UREA NITROGEN 10 mg/dL 7-18 N (test code = BUN) GLOMERULAR 96.4 80-90 H The Glomerular FILTRATION RATE Filtration R ate is a (test code = GFR) calculated parameterbased on serum Creatinine, pat ient age and sex. GFR va luesless than 60 mL/min/ 1.73 square meters a re indicative ofCh ronic Kidney Disease. Values less than 15 mL/min/1.73squa re meters indicate Kidney failure. The calculation forGFR is based on the CKD-EPI (2020) calculat ion. This formulais race indifferent and is the recommended for deborah for GFRby the [facility] on for Adults.The GFR will not calculate if th e sex is unknown or if thepatient's ag e is <18 years. CREATININE (test 0.8 mg/dL 0.6-1.3 N code = CREAT) CALCIUM (test code = 8.3 mg/dL 8.0-10.5 N CA) COMMENTS: POD #1HEPATIC FUNCTION [id number] 04:01:00 Test Item Value Reference Range Interpretation Comments TOTAL PROTEIN (test code = PROT) 5.0 g/dL 6.4-8.2 L ALBUMIN (test code = ALB) 3.60 g/dL 3.4-5.0 N BILIRUBIN TOTAL (test code = BILT) 0.60 mg/dL 0.0-1.0 N BILIRUBIN DIRECT (test code = 0.30 MG/DL 0.0-0.30 N BILD) BILIRUBIN INDIRECT (test code = 0.30 MG/DL BILIND) SGOT/AST (test code = AST) 46 IUnit/L 15-37 H SGPT/ALT (test code = ALT) 15 IUnit/L 30-65 L ALKALINE PHOSPHATASE TOTAL (test 33 IUnit/L 20-125 N code = ALKP) COMMENTS: POD #[id number] 04:01:00 Test Item Value Reference Range Interpretation Comments MAGNESIUM (test code = MAG) 2.01 mg/dL 1.80-2.40 N COMMENTS: POD #1CBC W/AUTO [id number] 03:26:00 Test Item Value Reference Range Interpretation Comments WHITE BLOOD CELL (test code = 12.7 x10 3/uL 4.5-11.0 H WBC) RED BLOOD CELL (test code = 2.73 x10 6/uL 4.00-5.60 L RBC) HEMOGLOBIN (test code = HGB) 8.7 g/dL 12.5-16.9 L HEMATOCRIT (test code = HCT) 25.2 % 37.5-50.7 L MEAN CELL VOLUME (test code = 92.3 fL 81.0-99.0 N MCV) MEAN CELL HGB (test code = MCH) 31.9 pg 27.0-33.0 N MEAN CELL HGB CONCETRATION 34.5 g/dL 33.0-37.0 N (test code = MCHC) RED CELL DISTRIBUTION WIDTH CV 13.8 % 11.5-14.5 N (test code = RDW) RED CELL DISTRIBUTION WIDTH SD 47.0 fL 37.0-54.0 N (test code = RDW-SD) PLATELET COUNT (test code = 114 x10 3/uL 150-400 L PLT) MEAN PLATELET VOLUME (test code 11.4 fL 7.0-9.0 H = MPV) NEUTROPHIL % (test code = NT%) 73.9 % 56.0-77.0 N IMMATURE GRANULOCYTE % (test 0.5 % 0.0-2.0 N code = IG%) LYMPHOCYTE % (test code = LY%) 7.6 % 14.0-32.0 L MONOCYTE % (test code = MO%) 17.9 % 4.8-9.0 H EOSINOPHIL % (test code = EO%) 0.0 % 0.3-3.7 L BASOPHIL % (test code = BA%) 0.1 % 0.0-2.0 N NUCLEATED RBC % (test code = 0.0 % 0-0 N NRBC%) NEUTROPHIL # (test code = NT#) 9.38 x10 3/uL 2.0-7.6 H IMMATURE GRANULOCYTE # (test 0.06 x10 3/uL 0.00-0.03 H code = IG#) LYMPHOCYTE # (test code = LY#) 0.96 x10 3/uL 1.0-3.8 L MONOCYTE # (test code = MO#) 2.27 x10 3/uL 0.1-0.8 H EOSINOPHIL # (test code = EO#) 0.00 x10 3/uL 0.0-0.2 N BASOPHIL # (test code = BA#) 0.01 x10 3/uL 0.0-0.2 N NUCLEATED RBC # (test code = 0.00 x10 3/uL 0.0-0.1 N NRBC#) MANUAL DIFF REQUIRED (test code NO = MDIFF) POC ARTERIAL BLOOD [id number] 02:29:00 Test Item Value Reference Range Interpretation Comments POC ARTERIAL BLOOD GAS PH (test 7.393 7.35-7.45 N code = POCPHA) POC ARTERIAL BLOOD GAS PCO2 (test 39.9 mmHg 35.0-45 N code = SIZLFE3E) POC TCO2 ARTERIAL (test code = 25.6 POCTCO2) POC ARTERIAL BLOOD GAS PO2 (test 78.2 mmHg 80-100.0 L code = NGNDS6R) POC HCO3 ARTERIAL (test code = 24.3 MMOL/L 22.0-26.0 N TNIBBG0O) POC BASE EXCESS (test code = -0.6 MMOL/L -4.0-4.0 N POCBEA) POC O2 SATURATION (test code = 95.4 % 90-100 N POCO2S) ABG DELIVERY (test code = KIRBY) Cannula ABG TEMPERATURE (test code = 98.6 F TEMPA) ABG SITE (test code = SITEA) Art Line BASIC METABOLIC [id number] 02:29:00 Test Item Value Reference Range Interpretation Comments SODIUM (test code = NA/ABG) 141 mmol/L 134-147 N POTASSIUM (test code = K/ABG) 4.3 mmol/L 3.4-5.0 N CHLORIDE (test code = CL/ABG) 108 mmol/L 100-108 N CREATININE ABG (test code = 0.8 mg/dL 0.8-1.3 N CREAABG) POC IONIZED CALCIUM (test code = 1.21 MMOL/L 1.12-1.32 N POCCA) POC GLUCOSE (test code = POCGLU) 93 MG/DL 70-110 N HEMOGLOBIN [id number] 02:29:00 Test Item Value Reference Range Interpretation Comments HEMOGLOBIN ABG (test code = HGB/ABG) 8.7 G/DL 12.5-16.9 L [id number] 02:29:00 Test Item Value Reference Range Interpretation Comments HEMATOCRIT (test code = HCT/ABG) 26 % 37.5-50.7 L POC LACTIC [id number] 02:29:00 Test Item Value Reference Range Interpretation Comments POC LACTIC ACID (test code = 0.6 mmol/l 0.9-1.7 L POCLAC) GLUCOSE [id number] 00:21:00 Test Item Value Reference Range Interpretation Comments GLUCOSE BEDSIDE (test 120 MG/DL 70-110 H Perfor med by certified code = GLUBED) 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[facility] - XR CHEST 1 [id number] 00:00:00 [facility] 1955 Sex: M FAX: Ludin John [phone] [place]: St: ADM FAX: Sam Mckoy MD [phone] FAX: Albino Castillo MD [phone] Name: MARY DALY : 1955 Age/S: 66/M [address] [place] [address] Bl Unit #:[id number] Loc: G.2207 [place] [address] Phys: Ludin Mcucrdy MD Acct: [id number] Dis Date: Status: ADM IN PHONE #: [phone] Exam Date: 08/03/2022636 FAX #: [phone] Reason: Cardiac Surgery Post Op EXAMS: CPT CODE: [id number] XR CHEST 1 V [id number] PROCEDURE INFORMATION: Exam: XR Chest Exam date and time: 08/03/2022 5:37 AM Age: 66 years old Clinical indication: Other: Cardiac surgery post op TECHNIQUE: Imaging protocol: Radiologic exam of the chest. Views: 1 view. COMPARISON: CR XR CHEST 1V 08/02/2022 3:39 PM FINDINGS: Tubes, catheters and devices: Stable lines and tubes. Lungs: Mild worsening left basilar opacities. The other lung opacities are stable. Pleural spaces: Small left pleural effusion could be present. No definite pneumothorax. Heart/Mediastinum: Stable heart size. Vasculature: Atherosclerotic calcifications. Bones/joints: Stable. Median sternotomy wires. Partially imaged postoperative change in the cervical spine. IMPRESSION: Mild worsening left basilar opacities. at 0800 Reported and signed by: Allan Diana M.D. 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[facility] BASIC METABOLIC [id number] 21:06:00 Test Item Value Reference Range Interpretation Comments SODIUM (test code = 141 mEq/L 134-147 N NA) POTASSIUM (test code 4.5 mEq/L 3.4-5.0 = K) CHLORIDE (test code 112 mEq/L 100-108 H = CL) CARBON DIOXIDE (test 24 mEq/l 21-33 N code = CO2) ANION GAP (test code 10 0-20 N = GAP) GLUCOSE (test code = 156 mg/dL 70-110 H GLU) BLOOD UREA NITROGEN 10 mg/dL 7-18 N (test code = BUN) GLOMERULAR 96.4 80-90 H The Glomerular FILTRATION RATE Filtration R ate is a (test code = GFR) calculated parameterbased on serum Creatinine, pat ient age and sex. GFR va luesless than 60 mL/min/ 1.73 square meters a re indicative ofCh ronic Kidney Disease. Values less than 15 mL/min/1.73squa re meters indicate Kidney failure. The calculation forGFR is based on the CKD-EPI (2020) calculat ion. This formulais race indifferent and is the recommended for deborah for GFRby the [facility] n[facility] on for Adults.The GFR will not calculate if th e sex is unknown or if thepatient's ag e is <18 years. 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[facility] CBC W/AUTO [id number] 20:55:00 Test Item Value Reference Range Interpretation Comments WHITE BLOOD CELL (test code = 14.0 x10 3/uL 4.5-11.0 H WBC) RED BLOOD CELL (test code = 2.94 x10 6/uL 4.00-5.60 L RBC) HEMOGLOBIN (test code = HGB) 9.4 g/dL 12.5-16.9 L HEMATOCRIT (test code = HCT) 27.0 % 37.5-50.7 L MEAN CELL VOLUME (test code = 91.8 fL 81.0-99.0 N MCV) MEAN CELL HGB (test code = 32.0 pg 27.0-33.0 N MCH) MEAN CELL HGB CONCETRATION 34.8 g/dL 33.0-37.0 N (test code = MCHC) RED CELL DISTRIBUTION WIDTH CV 13.6 % 11.5-14.5 N (test code = RDW) RED CELL DISTRIBUTION WIDTH SD 45.9 fL 37.0-54.0 N (test code = RDW-SD) PLATELET COUNT (test code = 113 x10 3/uL 150-400 L PLT) MEAN PLATELET VOLUME (test 10.9 fL 7.0-9.0 H code = MPV) NEUTROPHIL % (test code = NT%) 80.2 % 56.0-77.0 H IMMATURE GRANULOCYTE % (test 0.4 % 0.0-2.0 N code = IG%) LYMPHOCYTE % (test code = LY%) 3.4 % 14.0-32.0 L MONOCYTE % (test code = MO%) 15.9 % 4.8-9.0 H EOSINOPHIL % (test code = EO%) 0.0 % 0.3-3.7 L BASOPHIL % (test code = BA%) 0.1 % 0.0-2.0 N NUCLEATED RBC % (test code = 0.0 % 0-0 N NRBC%) NEUTROPHIL # (test code = NT#) 11.24 x10 3/uL 2.0-7.6 H IMMATURE GRANULOCYTE # (test 0.06 x10 3/uL 0.00-0.03 H code = IG#) LYMPHOCYTE # (test code = LY#) 0.48 x10 3/uL 1.0-3.8 L MONOCYTE # (test code = MO#) 2.23 x10 3/uL 0.1-0.8 H EOSINOPHIL # (test code = EO#) 0.00 x10 3/uL 0.0-0.2 N BASOPHIL # (test code = BA#) 0.01 x10 3/uL 0.0-0.2 N NUCLEATED RBC # (test code = 0.00 x10 3/uL 0.0-0.1 N NRBC#) MANUAL DIFF REQUIRED (test NO code = MDIFF) POC ARTERIAL BLOOD [id number] 20:47:00 Test Item Value Reference Range Interpretation Comments POC ARTERIAL BLOOD GAS PH (test 7.378 7.35-7.45 N code = POCPHA) POC ARTERIAL BLOOD GAS PCO2 (test 41.7 mmHg 35.0-45 N code = EWCNZN8A) POC TCO2 ARTERIAL (test code = 25.9 POCTCO2) POC ARTERIAL BLOOD GAS PO2 (test 83.4 mmHg 80-100.0 N code = KSFNM1H) POC HCO3 ARTERIAL (test code = 24.6 MMOL/L 22.0-26.0 N OIXSPM6J) POC BASE EXCESS (test code = -0.6 MMOL/L -4.0-4.0 N POCBEA) POC O2 SATURATION (test code = 96.1 % 90-100 N POCO2S) ABG DELIVERY (test code = KIRBY) Cannula ABG TEMPERATURE (test code = 98.2 F TEMPA) ABG SITE (test code = SITEA) Art Line BASIC METABOLIC [id number] 20:47:00 Test Item Value Reference Range Interpretation Comments SODIUM (test code = NA/ABG) 140 mmol/L 134-147 N POTASSIUM (test code = K/ABG) 4.6 mmol/L 3.4-5.0 N CHLORIDE (test code = CL/ABG) 108 mmol/L 100-108 N CREATININE ABG (test code = 0.8 mg/dL 0.8-1.3 N CREAABG) POC IONIZED CALCIUM (test code = 1.29 MMOL/L 1.12-1.32 N POCCA) POC GLUCOSE (test code = POCGLU) 147 MG/DL 70-110 H HEMOGLOBIN [id number] 20:47:00 Test Item Value Reference Range Interpretation Comments HEMOGLOBIN ABG (test code = HGB/ABG) 8.8 G/DL 12.5-16.9 L [id number] 20:47:00 Test Item Value Reference Range Interpretation Comments HEMATOCRIT (test code = HCT/ABG) 26 % 37.5-50.7 L POC LACTIC [id number] 20:47:00 Test Item Value Reference Range Interpretation Comments POC LACTIC ACID (test code = 1.5 mmol/l 0.9-1.7 N POCLAC) BASIC METABOLIC [id number] 19:54:00 Test Item Value Reference Range Interpretation Comments SODIUM (test code = NA/ABG) 141 mmol/L 134-147 N POTASSIUM (test code = K/ABG) 4.3 mmol/L 3.4-5.0 N CHLORIDE (test code = CL/ABG) 108 mmol/L 100-108 N CREATININE ABG (test code = 0.7 mg/dL 0.8-1.3 L CREAABG) POC IONIZED CALCIUM (test code = 1.34 MMOL/L 1.12-1.32 H POCCA) POC GLUCOSE (test code = POCGLU) 154 MG/DL 70-110 H HEMOGLOBIN [id number] 19:54:00 Test Item Value Reference Range Interpretation Comments HEMOGLOBIN ABG (test code = HGB/ABG) 8.6 G/DL 12.5-16.9 L [id number] 19:54:00 Test Item Value Reference Range Interpretation Comments HEMATOCRIT (test code = HCT/ABG) 25 % 37.5-50.7 L POC LACTIC [id number] 19:54:00 Test Item Value Reference Range Interpretation Comments POC LACTIC ACID (test code = 2.0 mmol/l 0.9-1.7 H POCLAC) POC VENOUS BLOOD [id number] 19:54:00 Test Item Value Reference Range Interpretation Comments POC VENOUS BLOOD GAS PH (test 7.334 7.33-7.45 N code = POCPHV) POC VENOUS BLOOD GAS PCO2 (test 45.9 mmHg 43-47 N code = QUQSQR9V) POC VENOUS BLOOD GAS PO2 (test 38.0 mmHG 10-50 N code = MDNNQ8Z) POC TCO2 VENOUS (test code = 25.9 UGVIKP0P) POC HCO3 VENOUS (test code = 24.5 MMOL/L 22-27 N HEJDIT4P) POC BASE EXCESS VENOUS (test code -1.4 MMOL/L -4.0-4.0 N = POCBEV) POC O2 SATURATION VENOUS (test 68.8 % 60-80 N code = PPXE3CX) VENOUS BLOOD GAS DELIVERY (test Cannula code = DELV) VENOUS BLOOD GAS TEMP (test code 98.1 F = TEMPV) VENOUS BLOOD GAS SITE (test code Quang Anna Marei = SITEV) GLUCOSE [id number] 19:00:00 Test Item Value Reference Range Interpretation Comments GLUCOSE BEDSIDE (test 109 MG/DL 70-110 N Perfor med by certified code = GLUBED) 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[facility] BASIC METABOLIC [id number] 16:15:00 Test Item Value Reference Range Interpretation Comments SODIUM (test code = 140 mEq/L 134-147 N NA) POTASSIUM (test code 3.7 mEq/L 3.4-5.0 N = K) CHLORIDE (test code 109 mEq/L 100-108 H = CL) CARBON DIOXIDE (test 21 mEq/l 21-33 N code = CO2) ANION GAP (test code 14 0-20 N = GAP) GLUCOSE (test code = 205 mg/dL 70-110 H GLU) BLOOD UREA NITROGEN 12 mg/dL 7-18 N (test code = BUN) GLOMERULAR 82.0 80-90 N The Glomerular FILTRATION RATE Filtration R ate is a (test code = GFR) calculated parameterbased on serum Creatinine, pat ient age and sex. GFR va luesless than 60 mL/min/ 1.73 square meters a re indicative ofCh ronic Kidney Disease. Values less than 15 mL/min/1.73squa re meters indicate Kidney failure. The calculation forGFR is based on the CKD-EPI (2020) calculat ion. This formulais race indifferent and is the recommended for deborah for GFRby the Nat nal Kidney Foundati on for Adults.The GFR will not calculate if th e sex is unknown or if thepatient's ag e is <18 years. CREATININE (test 1.0 mg/dL 0.6-1.3 N code = CREAT) CALCIUM (test code = 7.7 mg/dL 8.0-10.5 L CA) COMMENTS: On arrivalComment: On [id number] 16:15:00 Test Item Value Reference Range Interpretation Comments MAGNESIUM (test code = MAG) 2.25 mg/dL 1.80-2.40 N COMMENTS: On arrivalComment: On arrivalPROTHROMBIN [id number] 16:11:00 Test Item Value Reference Range Interpretation Comments PROTHROMBIN TIME 14.4 SECONDS 9.3-12.9 H PATIENT (test code = PTP) INTERNATIONAL NORMAL 1.3 0.8-1.2 H TARGE T INR BY RATIO (test code = INDICATIO N Indication INR) INR1. Prophylax is of venous thrombos is 2.0 - 3.0 (orthoped ic surgery), Proph ylaxis of venous throm bosis (other than hig h-risk surgery), Treat ment of Deep Vein Thrombosis/Pulm onary Embolism, Preve ntion of systemic emb olism - Tissue heart va lves, Acute Myocardia l Infarction (to prevent systemic emboli sm), Valvular heart disease, Atrial Fibrillation, Bileaflet mecha nical valve in aortic position.2. Mec hanical prosthetic valv es (high risk), 2. 5 - 3.5 Presence of Lup us Anticoagulant o r Antiphospholipi d Antibodies, Pre vention of systemic emb olism - Acute Myocardia l Infarction (to prevent recurrent infar ct). COMMENTS: On arrivalTHROMBOPLASTIN TIME [id number] 16:11:00 Test Item Value Reference Range Interpretation Comments THROMBOPLASTIN TIME 27.4 Seconds 25.0-39.5 Therape utic Range: PARTIAL (test code = 50.4 - 88.3 Seconds PTT) Effective 06/06/2018 COMMENTS: On arrivalCBC W/AUTO [id number] 16:00:00 Test Item Value Reference Range Interpretation Comments WHITE BLOOD CELL (test code = 27.2 x10 3/uL 4.5-11.0 H WBC) RED BLOOD CELL (test code = 3.78 x10 6/uL 4.00-5.60 L RBC) HEMOGLOBIN (test code = HGB) 12.3 g/dL 12.5-16.9 L HEMATOCRIT (test code = HCT) 34.5 % 37.5-50.7 L MEAN CELL VOLUME (test code = 91.3 fL 81.0-99.0 N MCV) MEAN CELL HGB (test code = 32.5 pg 27.0-33.0 N MCH) MEAN CELL HGB CONCETRATION 35.7 g/dL 33.0-37.0 N (test code = MCHC) RED CELL DISTRIBUTION WIDTH CV 13.6 % 11.5-14.5 N (test code = RDW) RED CELL DISTRIBUTION WIDTH SD 46.1 fL 37.0-54.0 N (test code = RDW-SD) PLATELET COUNT (test code = 167 x10 3/uL 150-400 N PLT) MEAN PLATELET VOLUME (test 11.0 fL 7.0-9.0 H code = MPV) NEUTROPHIL % (test code = NT%) 76.5 % 56.0-77.0 N IMMATURE GRANULOCYTE % (test 0.8 % 0.0-2.0 N code = IG%) LYMPHOCYTE % (test code = LY%) 9.7 % 14.0-32.0 L MONOCYTE % (test code = MO%) 12.3 % 4.8-9.0 H EOSINOPHIL % (test code = EO%) 0.4 % 0.3-3.7 N BASOPHIL % (test code = BA%) 0.3 % 0.0-2.0 N NUCLEATED RBC % (test code = 0.0 % 0-0 N NRBC%) NEUTROPHIL # (test code = NT#) 20.85 x10 3/uL 2.0-7.6 H IMMATURE GRANULOCYTE # (test 0.22 x10 3/uL 0.00-0.03 H code = IG#) LYMPHOCYTE # (test code = LY#) 2.64 x10 3/uL 1.0-3.8 N MONOCYTE # (test code = MO#) 3.34 x10 3/uL 0.1-0.8 H EOSINOPHIL # (test code = EO#) 0.10 x10 3/uL 0.0-0.2 N BASOPHIL # (test code = BA#) 0.07 x10 3/uL 0.0-0.2 N NUCLEATED RBC # (test code = 0.00 x10 3/uL 0.0-0.1 N NRBC#) MANUAL DIFF REQUIRED (test NO code = MDIFF) COMMENTS: [facility] [id number] 15:47:00 Test Item Value Reference Range Interpretation Comments POC ARTERIAL BLOOD GAS PH (test 7.300 7.35-7.45 L code = POCPHA) POC ARTERIAL BLOOD GAS PCO2 (test 38.2 mmHg 35.0-45 N code = [id number]) POC TCO2 ARTERIAL (test code = 20.0 POCTCO2) POC ARTERIAL BLOOD GAS PO2 (test 93.1 mmHg 80-100.0 N code = BKDBO2A) POC HCO3 ARTERIAL (test code = 18.8 MMOL/L 22.0-26.0 L [id number]) POC BASE EXCESS (test code = -7.6 MMOL/L -4.0-4.0 L POCBEA) POC O2 SATURATION (test code = 96.4 % 90-100 N POCO2S) BASIC METABOLIC [id number] 15:47:00 Test Item Value Reference Range Interpretation Comments SODIUM (test code = NA/ABG) 141 mmol/L 134-147 N POTASSIUM (test code = K/ABG) 3.4 mmol/L 3.4-5.0 N CHLORIDE (test code = CL/ABG) 108 mmol/L 100-108 N CREATININE ABG (test code = 0.9 mg/dL 0.8-1.3 N CREAABG) POC IONIZED CALCIUM (test code = 1.15 MMOL/L 1.12-1.32 N POCCA) POC GLUCOSE (test code = POCGLU) 187 MG/DL 70-110 H HEMOGLOBIN [id number] 15:47:00 Test Item Value Reference Range Interpretation Comments HEMOGLOBIN ABG (test code = 11.1 G/DL 12.5-16.9 L HGB/ABG) [id number] 15:47:00 Test Item Value Reference Range Interpretation Comments HEMATOCRIT (test code = HCT/ABG) 33 % 37.5-50.7 L [id number] 14:31:00 Test Item Value Reference Range Interpretation Comments ACT-ISTAT (test code 107 SEC 74-137 N Perform ed by certified = ACTI) 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[facility] POC ARTERIAL BLOOD [id number] 14:25:00 Test Item Value Reference Range Interpretation Comments POC ARTERIAL BLOOD GAS PH (test 7.391 7.35-7.45 N code = POCPHA) POC ARTERIAL BLOOD GAS PCO2 (test 36.7 mmHg 35.0-45 N code = [id number]) POC TCO2 ARTERIAL (test code = 23.4 POCTCO2) POC ARTERIAL BLOOD GAS PO2 (test 254.6 mmHg 80-100.0 HH code = [id number]) POC HCO3 ARTERIAL (test code = 22.3 MMOL/L 22.0-26.0 N [id number]) POC BASE EXCESS (test code = -2.4 MMOL/L -4.0-4.0 N POCBEA) POC O2 SATURATION (test code = 99.9 % 90-100 N POCO2S) BASIC METABOLIC [id number] 14:25:00 Test Item Value Reference Range Interpretation Comments SODIUM (test code = NA/ABG) 139 mmol/L 134-147 N POTASSIUM (test code = K/ABG) 4.3 mmol/L 3.4-5.0 N CHLORIDE (test code = CL/ABG) 105 mmol/L 100-108 N CREATININE ABG (test code = 0.8 mg/dL 0.8-1.3 N CREAABG) POC IONIZED CALCIUM (test code = 1.26 MMOL/L 1.12-1.32 N POCCA) POC GLUCOSE (test code = POCGLU) 187 MG/DL 70-110 H HEMOGLOBIN [id number] 14:25:00 Test Item Value Reference Range Interpretation Comments HEMOGLOBIN ABG (test code = HGB/ABG) 9.0 G/DL 12.5-16.9 L [id number] 14:25:00 Test Item Value Reference Range Interpretation Comments HEMATOCRIT (test code = HCT/ABG) 27 % 37.5-50.7 L POC LACTIC [id number] 14:25:00 Test Item Value Reference Range Interpretation Comments POC LACTIC ACID (test code = 2.3 mmol/l 0.9-1.7 H POCLAC) [id number] 13:34:00 Test Item Value Reference Range Interpretation Comments ACT-ISTAT (test code 588 SEC 74-137 H Perform ed by certified = ACTI) 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[facility] POC ARTERIAL BLOOD [id number] 13:24:00 Test Item Value Reference Range Interpretation Comments POC ARTERIAL BLOOD GAS PH (test 7.383 7.35-7.45 N code = POCPHA) POC ARTERIAL BLOOD GAS PCO2 (test 42.0 mmHg 35.0-45 N code = [id number]) POC TCO2 ARTERIAL (test code = 26.3 POCTCO2) POC ARTERIAL BLOOD GAS PO2 (test 345.2 mmHg 80-100.0 HH code = TRUHT3Q) POC HCO3 ARTERIAL (test code = 25.0 MMOL/L 22.0-26.0 N [id number]) POC BASE EXCESS (test code = -0.1 MMOL/L -4.0-4.0 N POCBEA) POC O2 SATURATION (test code = 99.9 % 90-100 N POCO2S) BASIC METABOLIC [id number] 13:24:00 Test Item Value Reference Range Interpretation Comments SODIUM (test code = NA/ABG) 135 mmol/L 134-147 N POTASSIUM (test code = K/ABG) 5.6 mmol/L 3.4-5.0 H CHLORIDE (test code = CL/ABG) 105 mmol/L 100-108 N CREATININE ABG (test code = 0.8 mg/dL 0.8-1.3 N CREAABG) POC IONIZED CALCIUM (test code = 1.07 MMOL/L 1.12-1.32 L POCCA) POC GLUCOSE (test code = POCGLU) 184 MG/DL 70-110 H HEMOGLOBIN [id number] 13:24:00 Test Item Value Reference Range Interpretation Comments HEMOGLOBIN ABG (test code = HGB/ABG) 9.5 G/DL 12.5-16.9 L [id number] 13:24:00 Test Item Value Reference Range Interpretation Comments HEMATOCRIT (test code = HCT/ABG) 28 % 37.5-50.7 L POC LACTIC [id number] 13:24:00 Test Item Value Reference Range Interpretation Comments POC LACTIC ACID (test code = 1.2 mmol/l 0.9-1.7 N POCLAC) [id number] 13:03:00 Test Item Value Reference Range Interpretation Comments ACT-ISTAT (test code 666 SEC 74-137 H Perform ed by certified = ACTI) 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[facility] POC ARTERIAL BLOOD [id number] 12:47:00 Test Item Value Reference Range Interpretation Comments POC ARTERIAL BLOOD GAS PH (test 7.404 7.35-7.45 N code = POCPHA) POC ARTERIAL BLOOD GAS PCO2 (test 41.3 mmHg 35.0-45 N code = [id number]) POC TCO2 ARTERIAL (test code = 27.1 POCTCO2) POC ARTERIAL BLOOD GAS PO2 (test 417.5 mmHg 80-100.0 HH code = WOSIR1Q) POC HCO3 ARTERIAL (test code = 25.8 MMOL/L 22.0-26.0 N [id number]) POC BASE EXCESS (test code = 1.0 MMOL/L -4.0-4.0 N POCBEA) POC O2 SATURATION (test code = 100.0 % 90-100 N POCO2S) BASIC METABOLIC [id number] 12:47:00 Test Item Value Reference Range Interpretation Comments SODIUM (test code = NA/ABG) 137 mmol/L 134-147 N POTASSIUM (test code = K/ABG) 5.1 mmol/L 3.4-5.0 H CHLORIDE (test code = CL/ABG) 104 mmol/L 100-108 N CREATININE ABG (test code = 0.7 mg/dL 0.8-1.3 L CREAABG) POC IONIZED CALCIUM (test code = 1.03 MMOL/L 1.12-1.32 L POCCA) POC GLUCOSE (test code = POCGLU) 142 MG/DL 70-110 H HEMOGLOBIN [id number] 12:47:00 Test Item Value Reference Range Interpretation Comments HEMOGLOBIN ABG (test code = HGB/ABG) 9.7 G/DL 12.5-16.9 L [id number] 12:47:00 Test Item Value Reference Range Interpretation Comments HEMATOCRIT (test code = HCT/ABG) 28 % 37.5-50.7 L POC LACTIC [id number] 12:47:00 Test Item Value Reference Range Interpretation Comments POC LACTIC ACID (test code = 0.6 mmol/l 0.9-1.7 L POCLAC) [id number] 12:32:00 Test Item Value Reference Range Interpretation Comments ACT-ISTAT (test code 486 SEC 74-137 H Perform ed by certified = ACTI) 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[facility] [id number] 12:17:00 Test Item Value Reference Range Interpretation Comments ACT-ISTAT (test code 407 SEC 74-137 H Perform ed by certified = ACTI) 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[facility] [id number] 12:13:00 Test Item Value Reference Range Interpretation Comments HEMATOCRIT (test code = HCT/ABG) 38 % 37.5-50.7 N POC LACTIC [id number] 12:13:00 Test Item Value Reference Range Interpretation Comments POC LACTIC ACID (test code = < 0.3 mmol/l 0.9-1.7 L POCLAC) POC ARTERIAL BLOOD [id number] 12:13:00 Test Item Value Reference Range Interpretation Comments POC ARTERIAL BLOOD GAS PH (test 7.338 7.35-7.45 L code = POCPHA) POC ARTERIAL BLOOD GAS PCO2 (test 42.3 mmHg 35.0-45 N code = LLMVKA3H) POC TCO2 ARTERIAL (test code = 24.1 POCTCO2) POC ARTERIAL BLOOD GAS PO2 (test 453.7 mmHg 80-100.0 HH code = DEBPA7X) POC HCO3 ARTERIAL (test code = 22.8 MMOL/L 22.0-26.0 N [id number]) POC BASE EXCESS (test code = -3.0 MMOL/L -4.0-4.0 N POCBEA) POC O2 SATURATION (test code = 100.0 % 90-100 N POCO2S) BASIC METABOLIC [id number] 12:13:00 Test Item Value Reference Range Interpretation Comments SODIUM (test code = NA/ABG) 137 mmol/L 134-147 N POTASSIUM (test code = K/ABG) 4.0 mmol/L 3.4-5.0 N CHLORIDE (test code = CL/ABG) 104 mmol/L 100-108 N CREATININE ABG (test code = 0.7 mg/dL 0.8-1.3 L CREAABG) POC IONIZED CALCIUM (test code = 1.15 MMOL/L 1.12-1.32 N POCCA) POC GLUCOSE (test code = POCGLU) 135 MG/DL 70-110 H HEMOGLOBIN [id number] 12:13:00 Test Item Value Reference Range Interpretation Comments HEMOGLOBIN ABG (test code = 13.1 G/DL 12.5-16.9 N HGB/ABG) [id number] 10:48:00 Test Item Value Reference Range Interpretation Comments ACT-ISTAT (test code 137 SEC 74-137 N Perform ed by certified = ACTI) 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[facility] POC ARTERIAL BLOOD [id number] 10:41:00 Test Item Value Reference Range Interpretation Comments POC ARTERIAL BLOOD GAS PH (test 7.361 7.35-7.45 N code = POCPHA) POC ARTERIAL BLOOD GAS PCO2 (test 42.7 mmHg 35.0-45 N code = [id number]) POC TCO2 ARTERIAL (test code = 25.5 POCTCO2) POC ARTERIAL BLOOD GAS PO2 (test 494.1 mmHg 80-100.0 HH code = VZYGT1K) POC HCO3 ARTERIAL (test code = 24.2 MMOL/L 22.0-26.0 N [id number]) POC BASE EXCESS (test code = -1.4 MMOL/L -4.0-4.0 N POCBEA) POC O2 SATURATION (test code = 100.0 % 90-100 N POCO2S) BASIC METABOLIC [id number] 10:41:00 Test Item Value Reference Range Interpretation Comments SODIUM (test code = NA/ABG) 141 mmol/L 134-147 N POTASSIUM (test code = K/ABG) 4.0 mmol/L 3.4-5.0 N CHLORIDE (test code = CL/ABG) 104 mmol/L 100-108 N CREATININE ABG (test code = 0.8 mg/dL 0.8-1.3 N CREAABG) POC IONIZED CALCIUM (test code = 1.22 MMOL/L 1.12-1.32 N POCCA) POC GLUCOSE (test code = POCGLU) 158 MG/DL 70-110 H HEMOGLOBIN [id number] 10:41:00 Test Item Value Reference Range Interpretation Comments HEMOGLOBIN ABG (test code = 16.0 G/DL 12.5-16.9 N HGB/ABG) [id number] 10:41:00 Test Item Value Reference Range Interpretation Comments HEMATOCRIT (test code = HCT/ABG) 47 % 37.5-50.7 N POC LACTIC [id number] 10:41:00 Test Item Value Reference Range Interpretation Comments POC LACTIC ACID (test code = < 0.3 mmol/l 0.9-1.7 L POCLAC) CBC W/AUTO [id number] 05:41:00 Test Item Value Reference Range Interpretation Comments WHITE BLOOD CELL (test code = 10.1 x10 3/uL 4.5-11.0 N WBC) RED BLOOD CELL (test code = 4.45 x10 6/uL 4.00-5.60 N RBC) HEMOGLOBIN (test code = HGB) 13.9 g/dL 12.5-16.9 N HEMATOCRIT (test code = HCT) 40.4 % 37.5-50.7 N MEAN CELL VOLUME (test code = 90.8 fL 81.0-99.0 N MCV) MEAN CELL HGB (test code = MCH) 31.2 pg 27.0-33.0 N MEAN CELL HGB CONCETRATION 34.4 g/dL 33.0-37.0 N (test code = MCHC) RED CELL DISTRIBUTION WIDTH CV 13.6 % 11.5-14.5 N (test code = RDW) PLATELET COUNT (test code = 204 x10 3/uL 150-400 N PLT) NEUTROPHIL % (test code = NT%) 56.2 % 56.0-77.0 N LYMPHOCYTE % (test code = LY%) 29.5 % 14.0-32.0 N NEUTROPHIL # (test code = NT#) 5.68 x10 3/uL 2.0-7.6 N LYMPHOCYTE # (test code = LY#) 2.98 x10 3/uL 1.0-3.8 N MANUAL DIFF REQUIRED (test code NO = MDIFF) RED CELL DISTRIBUTION WIDTH SD 45.3 fL 37.0-54.0 N (test code = RDW-SD) MEAN PLATELET VOLUME (test code 11.2 fL 7.0-9.0 H = MPV) IMMATURE GRANULOCYTE % (test 0.4 % 0.0-2.0 N code = IG%) MONOCYTE % (test code = MO%) 10.5 % 4.8-9.0 H EOSINOPHIL % (test code = EO%) 2.9 % 0.3-3.7 N BASOPHIL % (test code = BA%) 0.5 % 0.0-2.0 N NUCLEATED RBC % (test code = 0.0 % 0-0 N NRBC%) IMMATURE GRANULOCYTE # (test 0.04 x10 3/uL 0.00-0.03 H code = IG#) MONOCYTE # (test code = MO#) 1.06 x10 3/uL 0.1-0.8 H EOSINOPHIL # (test code = EO#) 0.29 x10 3/uL 0.0-0.2 H BASOPHIL # (test code = BA#) 0.05 x10 3/uL 0.0-0.2 N NUCLEATED RBC # (test code = 0.00 x10 3/uL 0.0-0.1 N NRBC#) COMMENTS: Daily while on HeparinPROTHROMBIN [id number] 05:29:00 Test Item Value Reference Range Interpretation Comments PROTHROMBIN TIME 11.8 SECONDS 9.3-12.9 N PATIENT (test code = PTP) INTERNATIONAL NORMAL 1.1 0.8-1.2 N TARGET INR BY RATIO (test code = INDICATIO N Indication INR) INR1. Prophylax is of venous thrombos is 2.0 - 3.0 (orthoped ic surgery), Proph ylaxis of venous throm bosis (other than hig h-risk surgery), Treat ment of Deep Vein Thrombosis/Pulm onary Embolism, Preve ntion of systemic emb olism - Tissue heart va lves, Acute Myocardia l Infarction (to prevent systemic emboli sm), Valvular heart disease, Atrial Fibrillation, Bileaflet mecha nical valve in aortic position.2. Mec hanical prosthetic valv es (high risk), 2. 5 - 3.5 Presence of Lup us Anticoagulant o r Antiphospholipi d Antibodies, Pre vention of systemic emb olism - Acute Myocardia l Infarction (to prevent recurrent infar ct). THROMBOPLASTIN TIME [id number] 05:29:00 Test Item Value Reference Range Interpretation Comments THROMBOPLASTIN TIME 57.6 Seconds 25.0-39.5 H Therape utic Range: PARTIAL (test code = 50.4 - 88.3 Seconds PTT) Effective 06/06/2018 BASIC METABOLIC [id number] 05:29:00 Test Item Value Reference Range Interpretation Comments SODIUM (test code = 137 mEq/L 134-147 N NA) POTASSIUM (test code 4.3 mEq/L 3.4-5.0 N = K) CHLORIDE (test code 104 mEq/L 100-108 N = CL) CARBON DIOXIDE (test 26 mEq/l 21-33 N code = CO2) ANION GAP (test code 11 0-20 N = GAP) GLUCOSE (test code = 97 mg/dL 70-110 N GLU) BLOOD UREA NITROGEN 13 mg/dL 7-18 N (test code = BUN) GLOMERULAR 93.0 80-90 H The Glomerular FILTRATION RATE Filtration R ate is a (test code = GFR) calculated parameterbased on serum Creatinine, pat ient age and sex. GFR va luesless than 60 mL/min/ 1.73 square meters a re indicative ofCh ronic Kidney Disease. Values less than 15 mL/min/1.73squa re meters indicate Kidney failure. The calculation forGFR is based on the CKD-EPI (2020) calculat ion. This formulais race indifferent and is the recommended for deborah for GFRby the [facility] on for Adults.The GFR will not calculate if th e sex is unknown or if thepatient's ag e is <18 years. CREATININE (test 0.9 mg/dL 0.6-1.3 N code = CREAT) CALCIUM (test code = 8.7 mg/dL 8.0-10.5 N CA) LIPID PROFILE (CORONARY RISK)2022-08-02 05:29:00 Test Item Value Reference Range Interpretation Comments TRIGLYCERIDES (test 129 mg/dL 40-150 N code = TRIG) CHOLESTEROL (test 172 mg/dL <200 code = CHOL) CHOLESTEROL/HDL 4.33 RATIO 3.43-4.97 N RISK ASSOCIA GIGI WITH RATIO (test code = CHOL/HDL RATIOS: RISK CHOLHDL) MALE FEMALE1/2 AVERAGE 3.43 3.27AVERAG E 4.97 4.442X AVERAGE 9.55 7.053X AVERAGE 23.39 11.04 NOTE THAT THE REFERENCE VALUE IS RELATEDTO RISK LEVELS RECOMMENDED BY THE NATL.HEART, LUNA G, AND BLOOD INST. HDL CHOLESTEROL 39.7 mg/dL 32-72 N (test code = HDL) LIPOPROTEIN LDL 129.0 mg/dL 0-100 H <100 OPTIMAL 100-129 (test code = LDL) NEAR OPTIM AL/ABOVE [id number] 89 HIGH>LW=516 [place] Y HIGH*Guidelines provided by the National Choles terol EducationProgra m Adult Treatment Panel III - XR CHEST 1 [id number] 00:00:00 [facility] 1955 Sex: M FAX: Ludin John [phone] [place]: St: ADM FAX: Sam Mckoy MD [phone] FAX: Albino Castillo MD [phone] Name: MARY DALY [facility] : 1955 Age/S: 66/M [address] [place] [address] Unit #: [id number] Loc: G.2207 [place] [address] Phys: Ludin Mccurdy MD Acct: [id number] Dis Date: Status: ADM IN PHONE #: [phone] Exam Date: 08/02/2022 1456 FAX #: [phone] Reason: COUNT EXAMS: CPT CODE: [id number] XR CHEST 1 V 46777 PROCEDURE INFORMATION: Exam: XR Chest Exam date and time: 08/02/2022 2:37 PM Age: 66 years old Clinical indication: Device placement; Other: Count; () TECHNIQUE: Imaging protocol: Radiologic exam of the chest. Views: 1 view. COMPARISON: CT CHEST W/O CONTRAST07/28/2022 12:46 PM FINDINGS: Tubes, catheters and devices: Support lines and tubes appear in satisfactory position. Limited visualization of the right upper lung due to overlying pacer pad. Shallow inspiration accentuates the pulmonary vessels. Lungs: See "Tubes, catheters and devices" finding. Pleuralspaces: No appreciable pleural effusion or pneumothorax. Heart/Mediastinum: Cardiomegaly. Interval co ronary artery bypass. Possible epicardial wires. Bones/joints: Sternotomy wires. IMPRESSION: No retained surgical needle is seen. at 1501 Reported and signed by: Gilmer Childs M.D. CC: Ludin Mccurdy MD; Sam Price MD; Albino Torre MD Technologist: Faina Castellon, RT(R); Aleah Pillai, RT(R) [facility] Date/Time/By: 08/02/2022 (3221) : By: GeronimoTTV Orig Print D/T: S: 08/02/2022 (3683) PAGE 1 Signed Report- XR CHEST 1 [id number] 00:00:00 [facility] : 1955 Sex: M FAX: Ludin John [phone] [place]: St: ADM FAX: Sam Mckoy MD [phone] FAX: Albino Castillo MD [phone] Name: MARY DALY [facility] : 1955 Age/S: 66/M [address] [place] [address] Unit #: [id number] Loc: G2207 [place] [address] Phys: Ludin Mccurdy MD Acct: [id number] Dis Date:Status: ADM IN PHONE #: [phone] Exam Date: 08/02/2022 1600 FAX #: [phone] Reason: Cardiac Surgery Post Op EXAMS: CPT CODE: [id number] XR CHEST 1 V [id number] PROCEDURE INFORMATION: Exam: XR Chest Exam date and time: 08/02/2022 3:39 PM Age: 66 years old Clinical indication: Other: Cardiac surgery post op TECHNIQUE: Imaging protocol: Radiologic exam of the chest. Views: 1 view. COMPARISON: CR XR CHEST 1V 08/02/2022 2:37 PM FINDINGS: Lungs: There is vascular congestion with opacity at the left lung base. A right IJ [place] catheter tip projects overlying the central mediastinum. A left chest tube is present. Pleural spaces: Unremarkable. No pleural effusion. No pneumothorax. Heart/Mediastinum: The cardiac silhouette is enlarged. Previous midline sternotomy. Bones/joints: ACDF. IMPRESSION: Postoperative change with vascular congestion and opacity at the lung base. at 1656 Reported and signed by: Krishna Santiago M.D. CC:Ludin Mccurdy MD; Sam Price MD; Albino Torre MD Technologist: RT Earl(R) Trnscrd Date/Time/By: 08/02/2022 (1655) : By: GeronimoTDO Orig Print D/T: S: 08/02/2022 (377) PAGE 1 Signed ReportTHROMBOPLASTIN TIME [id number] 07:07:00 Test Item Value Reference Range Interpretation Comments THROMBOPLASTIN TIME 58.7 Seconds 25.0-39.5 H Therape utic Range: PARTIAL (test code = 50.4 - 88.3 Seconds PTT) Effective 06/06/2018 BASIC METABOLIC [id number] 04:45:00 Test Item Value Reference Range Interpretation Comments SODIUM (test code = 138 mEq/L 134-147 N NA) POTASSIUM (test code 4.3 mEq/L 3.4-5.0 N = K) CHLORIDE (test code 108 mEq/L 100-108 N = CL) CARBON DIOXIDE (test 26 mEq/l 21-33 N code = CO2) ANION GAP (test code 8 0-20 N = GAP) GLUCOSE (test code = 98 mg/dL 70-110 N GLU) BLOOD UREA NITROGEN 11 mg/dL 7-18 N (test code = BUN) GLOMERULAR 93.0 80-90 H The Glomerular FILTRATION RATE Filtration R ate is a (test code = GFR) calculated parameterbased on serum Creatinine, pat ient age and sex. GFR va luesless than 60 mL/min/ 1.73 square meters a re indicative ofCh ronic Kidney Disease. Values less than 15 mL/min/1.73squa re meters indicate Kidney failure. The calculation forGFR is based on the CKD-EPI (2020) calculat ion. This formulais race indifferent and is the recommended for deborah for GFRby the [facility] on for Adults.The GFR will not calculate if th e sex is unknown or if thepatient's ag e is <18 years. CREATININE (test 0.9 mg/dL 0.6-1.3 N code = CREAT) CALCIUM (test code = 8.6 mg/dL 8.0-10.5 N CA) [id number] 04:45:00 Test Item Value Reference Range Interpretation Comments PHOSPHOROUS (test code = PHOS) 3.7 MG/DL 2.5-4.9 N [id number] 04:45:00 Test Item Value Reference Range Interpretation Comments MAGNESIUM (test code = MAG) 1.96 mg/dL 1.80-2.40 N CBC W/AUTO [id number] 04:30:00 Test Item Value Reference Range Interpretation Comments WHITE BLOOD CELL (test code = 10.1 x10 3/uL 4.5-11.0 N WBC) RED BLOOD CELL (test code = 4.51 x10 6/uL 4.00-5.60 N RBC) HEMOGLOBIN (test code = HGB) 14.4 g/dL 12.5-16.9 N HEMATOCRIT (test code = HCT) 40.4 % 37.5-50.7 N MEAN CELL VOLUME (test code = 89.6 fL 81.0-99.0 N MCV) MEAN CELL HGB (test code = MCH) 31.9 pg 27.0-33.0 N MEAN CELL HGB CONCETRATION 35.6 g/dL 33.0-37.0 N (test code = MCHC) RED CELL DISTRIBUTION WIDTH CV 13.6 % 11.5-14.5 N (test code = RDW) PLATELET COUNT (test code = 220 x10 3/uL 150-400 N PLT) NEUTROPHIL % (test code = NT%) 58.6 % 56.0-77.0 N LYMPHOCYTE % (test code = LY%) 29.2 % 14.0-32.0 N NEUTROPHIL # (test code = NT#) 5.90 x10 3/uL 2.0-7.6 N LYMPHOCYTE # (test code = LY#) 2.94 x10 3/uL 1.0-3.8 N MANUAL DIFF REQUIRED (test code NO = MDIFF) RED CELL DISTRIBUTION WIDTH SD 44.8 fL 37.0-54.0 N (test code = RDW-SD) MEAN PLATELET VOLUME (test code 10.9 fL 7.0-9.0 H = MPV) IMMATURE GRANULOCYTE % (test 0.2 % 0.0-2.0 N code = IG%) MONOCYTE % (test code = MO%) 9.5 % 4.8-9.0 H EOSINOPHIL % (test code = EO%) 2.1 % 0.3-3.7 N BASOPHIL % (test code = BA%) 0.4 % 0.0-2.0 N NUCLEATED RBC % (test code = 0.0 % 0-0 N NRBC%) IMMATURE GRANULOCYTE # (test 0.02 x10 3/uL 0.00-0.03 N code = IG#) MONOCYTE # (test code = MO#) 0.96 x10 3/uL 0.1-0.8 H EOSINOPHIL # (test code = EO#) 0.21 x10 3/uL 0.0-0.2 H BASOPHIL # (test code = BA#) 0.04 x10 3/uL 0.0-0.2 N NUCLEATED RBC # (test code = 0.00 x10 3/uL 0.0-0.1 N NRBC#) COMMENTS: Daily while on HeparinTHROMBOPLASTIN TIME [id number] 01:08:00 Test Item Value Reference Range Interpretation Comments THROMBOPLASTIN TIME 58.9 Seconds 25.0-39.5 H Therape utic Range: PARTIAL (test code = 50.4 - 88.3 Seconds PTT) Effective 06/06/2018 PLT RESPONSE TO [id number] 18:44:00 Test Item Value Reference Range Interpretation Comments PLT RESPONSE TO PLAVIX 191 PRU 182-335 N Value s <180 PRU are (test code = PLAVRES) specif ic evidence of a P2Y12 inhibitor effect. Testing can onl y be performed if pa tient sample values a re within the following r anges: Hematocrit 33-5 2%, Platelet Count 119,000-502,000 /uL. Patient values outside of theseranges will be rejected by our instrumentation . THROMBOPLASTIN TIME [id number] 18:26:00 Test Item Value Reference Range Interpretation Comments THROMBOPLASTIN TIME 81.9 Seconds 25.0-39.5 H Therape utic Range: PARTIAL (test code = 50.4 - 88.3 Seconds PTT) Effective 06/06/2018 COMMENTS: DRAW PTT 6 HOURS AFTER INITIATION OF HEPARINPROTHROMBIN [id number] 10:52:00 Test Item Value Reference Range Interpretation Comments PROTHROMBIN TIME 11.1 SECONDS 9.3-12.9 N PATIENT (test code = PTP) INTERNATIONAL NORMAL 1.0 0.8-1.2 N TARGE T INR BY RATIO (test code = INDICATIO N Indication INR) INR1. Prophylax is of venous thrombos is 2.0 - 3.0 (orthoped ic surgery), Proph ylaxis of venous throm bosis (other than hig h-risk surgery), Treat ment of Deep Vein Thrombosis/Pulm onary Embolism, Preve ntion of systemic emb olism - Tissue heart va lves, Acute Myocardia l Infarction (to prevent systemic emboli sm), Valvular heart disease, Atrial Fibrillation, Bileaflet mecha nical valve in aortic position.2. Mec hanical prosthetic valv es (high risk), 2. 5 - 3.5 Presence of Lup us Anticoagulant o r Antiphospholipi d Antibodies, Pre vention of systemic emb olism - Acute Myocardia l Infarction (to prevent recurrent infar ct). COMMENTS: IF NOT ALREADY DONE WITHIN LAST 24 HOURSTHROMBOPLASTIN TIME PARTIAL 2022-07-31 10:52:00 Test Item Value Reference Range Interpretation Comments THROMBOPLASTIN TIME 31.4 Seconds 25.0-39.5 N Therape utic Range: PARTIAL (test code = 50.4 - 88.3 Seconds PTT) Effective 06/06/2018 COMMENTS: IF NOT ALREADY DONE WITHIN LAST 24 HOURSCBC W/AUTO [id number] 10:38:00 Test Item Value Reference Range Interpretation Comments WHITE BLOOD CELL (test code = 10.6 x10 3/uL 4.5-11.0 N WBC) RED BLOOD CELL (test code = 4.79 x10 6/uL 4.00-5.60 N RBC) HEMOGLOBIN (test code = HGB) 15.5 g/dL 12.5-16.9 N HEMATOCRIT (test code = HCT) 43.3 % 37.5-50.7 N MEAN CELL VOLUME (test code = 90.4 fL 81.0-99.0 N MCV) MEAN CELL HGB (test code = MCH) 32.4 pg 27.0-33.0 N MEAN CELL HGB CONCETRATION 35.8 g/dL 33.0-37.0 N (test code = MCHC) RED CELL DISTRIBUTION WIDTH CV 13.7 % 11.5-14.5 N (test code = RDW) RED CELL DISTRIBUTION WIDTH SD 45.9 fL 37.0-54.0 N (test code = RDW-SD) PLATELET COUNT (test code = 248 x10 3/uL 150-400 N PLT) MEAN PLATELET VOLUME (test code 10.6 fL 7.0-9.0 H = MPV) NEUTROPHIL % (test code = NT%) 59.3 % 56.0-77.0 N IMMATURE GRANULOCYTE % (test 0.4 % 0.0-2.0 N code = IG%) LYMPHOCYTE % (test code = LY%) 25.7 % 14.0-32.0 N MONOCYTE % (test code = MO%) 11.8 % 4.8-9.0 H EOSINOPHIL % (test code = EO%) 2.2 % 0.3-3.7 N BASOPHIL % (test code = BA%) 0.6 % 0.0-2.0 N NUCLEATED RBC % (test code = 0.0 % 0-0 N NRBC%) NEUTROPHIL # (test code = NT#) 6.30 x10 3/uL 2.0-7.6 N IMMATURE GRANULOCYTE # (test 0.04 x10 3/uL 0.00-0.03 H code = IG#) LYMPHOCYTE # (test code = LY#) 2.73 x10 3/uL 1.0-3.8 N MONOCYTE # (test code = MO#) 1.25 x10 3/uL 0.1-0.8 H EOSINOPHIL # (test code = EO#) 0.23 x10 3/uL 0.0-0.2 H BASOPHIL # (test code = BA#) 0.06 x10 3/uL 0.0-0.2 N NUCLEATED RBC # (test code = 0.00 x10 3/uL 0.0-0.1 N NRBC#) MANUAL DIFF REQUIRED (test code NO = MDIFF) COMMENTS: IF NOT ALREADY DONE WITHIN LAST 24 HOURSB-TYPE NATRIURETIC PEPTIDE 2022-07-30 03:45:00 Test Item Value Reference Range Interpretation Comments B-TYPE NATRIURETIC PEPTIDE (test 54.0 PG/ML 0-100 N code = BNP) COMPREHENSIVE METABOLIC [id number] 03:45:00 Test Item Value Reference Range Interpretation Comments SODIUM (test code = 137 mEq/L 134-147 N NA) POTASSIUM (test code 4.4 mEq/L 3.4-5.0 N = K) CHLORIDE (test code 107 mEq/L 100-108 N = CL) CARBON DIOXIDE (test 23 mEq/l 21-33 N code = CO2) ANION GAP (test code 11 0-20 N = GAP) GLUCOSE (test code = 99 mg/dL 70-110 N GLU) BLOOD UREA NITROGEN 11 mg/dL 7-18 (test code = BUN) GLOMERULAR 93.0 80-90 H The Glomerular FILTRATION RATE Filtration R ate is a (test code = GFR) calculated parameterbased on serum Creatinine, pat ient age and sex. GFR va luesless than 60 mL/min/ 1.73 square meters a re indicative ofCh ronic Kidney Disease. Values less than 15 mL/min/1.73squa re meters indicate Kidney failure. The calculation for GFR is based on the CK D-EPI (2020) calculat ion. This formulais race indifferent and is the recommended for deborah for GFRby the Natio n[facility] Kidney Foundati on for Adults.The GFR will not calculate if th e sex is unknown or if thepatient's ag e is <18 years. CREATININE (test 0.9 mg/dL 0.6-1.3 N code = CREAT) TOTAL PROTEIN (test 6.6 g/dL 6.4-8.2 N code = PROT) ALBUMIN (test code = 3.70 g/dL 3.4-5.0 N ALB) CALCIUM (test code = 9.0 mg/dL 8.0-10.5 N CA) BILIRUBIN TOTAL 0.40 mg/dL 0.0-1.0 (test code = BILT) SGOT/AST (test code 21 IUnit/L 15-37 N = AST) SGPT/ALT (test code 23 IUnit/L 30-65 L = ALT) ALKALINE PHOSPHATASE 66 IUnit/L 20-125 N TOTAL (test code = ALKP) COVID 19 Asymptomatic IH [id number] 03:42:00 Test Item Value Reference Range Interpretation Comments COVID 19 Asymptomatic Negative Negative A nega tive result is IH AG (test code = presumpti ve and should COVNONPUIAG) be confirmedwit h an FDA authorized mole cular assay, if neces renato forpatient velma coles.A positive result does not rule out co-inf ections withother patho gens.This test detects jessy th viable (live) and non-viable,SARS -CoV, and SARS-CoV-2. Maribeth t performance dep ends on theamount of vi felicitas (antigen) in th e sample.This maribeth t has not been FDA cleare d or approved; the t est hasbeen authori zed by FDA under an Em ergency Use Authorizati on(EUA) for use by labo ratories certified under the CLIA thatmeet the requirements to perform moderate, high or waivedcomplexit y tests. PLT RESPONSE TO [id number] 03:32:00 Test Item Value Reference Range Interpretation Comments PLT RESPONSE TO PLAVIX 157 PRU 182-335 L Value s <180 PRU are (test code = PLAVRES) specif ic evidence of a P2Y12 inhibitor effect. Testing can onl y be performed if pa tient sample values a re within the following r anges: Hematocrit 33-5 2%, Platelet Count 119,000-502,000 /uL. Patient values outside of theseranges will be rejected by our instrumentation . PROTHROMBIN [id number] 03:31:00 Test Item Value Reference Range Interpretation Comments PROTHROMBIN TIME 11.2 SECONDS 9.3-12.9 N PATIENT (test code = PTP) INTERNATIONAL NORMAL 1.0 0.8-1.2 N TARGET INR BY RATIO (test code = INDICATIO N Indication INR) INR1. Prophylax is of venous thrombos is 2.0 - 3.0 (orthoped ic surgery), Proph ylaxis of venous throm bosis (other than hig h-risk surgery), Treat ment of Deep Vein Thrombosis/Pulm onary Embolism, Preve ntion of systemic emb olism - Tissue heart va lves, Acute Myocardia l Infarction (to prevent systemic emboli sm), Valvular heart disease, Atrial Fibrillation, Bileaflet mecha nical valve in aortic position.2. Mec hanical prosthetic valv es (high risk), 2. 5 - 3.5 Presence of Lup us Anticoagulant o r Antiphospholipi d Antibodies, Pre vention of systemic emb olism - Acute Myocardia l Infarction (to prevent recurrent infar ct). THROMBOPLASTIN TIME [id number] 03:31:00 Test Item Value Reference Range Interpretation Comments THROMBOPLASTIN TIME 28.3 Seconds 25.0-39.5 N Therape utic Range: PARTIAL (test code = 50.4 - 88.3 Seconds PTT) Effective 06/06/2018 CBC W/AUTO [id number] 03:21:00 Test Item Value Reference Range Interpretation Comments WHITE BLOOD CELL (test code = 11.6 x10 3/uL 4.5-11.0 H WBC) RED BLOOD CELL (test code = 4.62 x10 6/uL 4.00-5.60 N RBC) HEMOGLOBIN (test code = HGB) 14.7 g/dL 12.5-16.9 N HEMATOCRIT (test code = HCT) 41.8 % 37.5-50.7 N MEAN CELL VOLUME (test code = 90.5 fL 81.0-99.0 N MCV) MEAN CELL HGB (test code = MCH) 31.8 pg 27.0-33.0 N MEAN CELL HGB CONCETRATION 35.2 g/dL 33.0-37.0 N (test code = MCHC) RED CELL DISTRIBUTION WIDTH CV 14.0 % 11.5-14.5 N (test code = RDW) RED CELL DISTRIBUTION WIDTH SD 47.1 fL 37.0-54.0 N (test code = RDW-SD) PLATELET COUNT (test code = 248 x10 3/uL 150-400 N PLT) MEAN PLATELET VOLUME (test code 11.0 fL 7.0-9.0 H = MPV) NEUTROPHIL % (test code = NT%) 57.3 % 56.0-77.0 N IMMATURE GRANULOCYTE % (test 0.3 % 0.0-2.0 N code = IG%) LYMPHOCYTE % (test code = LY%) 29.6 % 14.0-32.0 N MONOCYTE % (test code = MO%) 11.0 % 4.8-9.0 H EOSINOPHIL % (test code = EO%) 1.4 % 0.3-3.7 N BASOPHIL % (test code = BA%) 0.4 % 0.0-2.0 N NUCLEATED RBC % (test code = 0.0 % 0-0 N NRBC%) NEUTROPHIL # (test code = NT#) 6.63 x10 3/uL 2.0-7.6 N IMMATURE GRANULOCYTE # (test 0.04 x10 3/uL 0.00-0.03 H code = IG#) LYMPHOCYTE # (test code = LY#) 3.43 x10 3/uL 1.0-3.8 N MONOCYTE # (test code = MO#) 1.28 x10 3/uL 0.1-0.8 H EOSINOPHIL # (test code = EO#) 0.16 x10 3/uL 0.0-0.2 N BASOPHIL # (test code = BA#) 0.05 x10 3/uL 0.0-0.2 N NUCLEATED RBC # (test code = 0.00 x10 3/uL 0.0-0.1 N NRBC#) MANUAL DIFF REQUIRED (test code NO = MDIFF) - [facility] [id number] 00:00:00 [facility] LYNDA POWELLName: MARY DALY : 1955 Sex: M Name: MARY DALY [facility] Aleah Powell : 1955 Age/S: 66 / M [address] [place] [address] Blvd Unit #: [id number] Loc: [place] [address] Phys: Frieda Abdi [employer] [place] [employer] [place] [employer] Acct: [id number] Dis Date: Status: ADM IN PHONE #: [phone] Exam Date: 07/29/2022 1704 FAX #: [phone] Reason: temporal arteritis EXAMS: CPT CODE: [id number] CTA HEAD 47634 PROCEDURE INFORMATION: Exam: CTA Head With Contrast, Arteriography Exam date and time: 07/29/2022 4:55 PM Age: 66 years old Clinical indication: Other: Temporal arteritisTECHNIQUE: Imaging protocol: Computed tomographic angiography of the head with contrast. Exam focused on the arteries. 3D rendering (Not supervised by radiologist): MIP and/or 3D reconstructed images were created by the technologist. Radiation optimization: All CT scans at this facility use at least one of these dose optimization techniques: automated exposure control; mA and/or kV adjustment per patient size (includes targeted exams where dose is matched to clinical indication); or iterative reconst ruction. Contrast material: [id number]; Contrast volume: 100 ml; Contrast route: INTRAVENOUS (IV); REPORTING DATA: Count of CT and Cardiac NM exams in prior 12 months: This patient has received [address] and 0 known cardiac nuclear medicine studies in the 12 months prior to the current study. COMPARISON: US DUP [place] 07/28/2022 10:49 AM FINDINGS: ANTERIOR CIRCULATION: Right internal carotid artery: Unremarkable course and patency. Intracranial segment is patent with no significant stenosis. No aneurysm. Right middle cerebral artery: Unremarkable course and patency. No occlusion or significant stenosis. No aneurysm. Right anterior cerebral artery: Unremarkable course and patency. Azygous A2and A3 segments. No occlusion or significant stenosis. No aneurysm. Left internal carotid artery: Unremarkable course and patency. Intracranial segment is patent with no significant stenosis. No aneurysm. Left middle cerebral artery: Unremarkable course and patency. No occlusion or significant stenosis. No aneurysm. Left anterior cerebral artery: Unremarkable course and patency. Azygous A2 and A3 segments. No occlusion or significant stenosis. No aneurysm. Anterior communicating artery: Unremarkablepatency POSTERIOR CIRCULATION: Right vertebral artery: Unremarkable course and patency. No occlusionor significant stenosis. No aneurysm. PAGE 1 Signed Report (CONTINUED) Name: MARY DALY : 1955 Age/S: 66 / M [address] [place] [address] Blvd Unit #: [id number] Loc: [place], [place] [address]Mdpp: Frieda Abdi NP Acct: [id number] Dis Date: Status: ADM IN PHONE #: [phone] ExamDate: 07/29/20221703 FAX #: [phone] Reason: temporal arteritis EXAMS: CPT CODE: [id number] CTA HEAD 50542 (Continued) Left vertebral artery: Unremarkable course and patency. No occlusion or significant stenosis. No aneurysm. Basilar artery: Unremarkable course and patency. No occlusion or significant stenosis. No aneurysm. Right posterior cerebral artery: configuration Unremarkable course and patency. No occlusion or significant stenosis. No aneurysm. Left posterior cerebral artery: Unremarkable course and patency. No occlusion or significant stenosis. No aneurysm. Dural venous sinuses: Unremarkably patent. Brain: No definite mass, mass effect, or midline shift. Cerebral ventricles: Midline in position, normal caliber. Bones/joints: Unremarkable. No acute fracture. Soft tissues: Unremarkable. IMPRESSION: No flow-limiting stenosis or occlusion along major intracranial arterial vessels. No acute intracranial process nor bony injury PROCEDURE INFORMATION: Exam: CTA Neck With Contrast Exam date and time: 07/29/2022 4:55 PM Age: 66 years old Clinical indication: Other: Temporal arteritis TECHNIQUE: Imaging protocol: Computed tomographic angiography of the neck with contrast. 3D rendering (Not supervised by radiologist): MIP and/or 3D reconstructed images were created by the technologist. Radiation optimization: All CT scans at this facility use at least one ofthese dose optimization techniques: automated exposure control; mA and/or kV adjustment per patient size (includes targeted exams where dose is matched to clinical indication); or iterative reconstruction. Contrast material: [id number]; Contrast volume: 100 ml; Contrast route: INTRAVENOUS (IV); REPORTING DATA: Count of CT and Cardiac NM exams in prior 12 months: This patient has received [address] and 0 known cardiac nuclear medicine studies in the 12 months prior to the current study. COMPARISON: US DUP [place] 07/28/2022 10:49 AM FINDINGS: Lung apices: No concerning interstitial process. Visualized PAGE 2 Signed Report (CONTINUED) Name: MARY DALY [place] : 1955 Age/S: 66/ M [address] [place] [address] Blvd Unit #: [id number] Loc: [place] [address] Phys: Frieda Adbi NP Acct: [id number] Dis Date: Status: ADM IN PHONE #: [phone] Exam Date: 07/29/2022 170 FAX #: [phone] Reason: temporal arteritis EXAMS: CPT CODE: [id number] CTA HEAD 62405 (Continued) portions of central major pulmonary arteries are patent without filling defect. Widened upper mediastinum compatible with lipomatosis. Great vessels: Unremarkably patent along their proximal segments, and unremarkable takeoff from patent aortic arch. Right common carotid artery: Unremarkable course and patency. No stenosis. No dissection or occlusion. Right internal carotid artery: Unremarkable course and patency. Increased calcification along origin and proximal segment of this artery without flow-limiting stenosis. No stenosis of the extracranial segment. No dissection or occlusion. Right external carotid artery: Unremarkable course and patency. No occlusion or stenosis of the origin. Left common carotid artery: Unremarkable course and patency. No stenosis. No dissection or occlusion. Left internal carotid artery: Unremarkable course and patency. Increased calcification along origin and proximal segment of this artery without flow-limiting stenosis. No stenosis of the extracranial segment. No dissection or occlusion. Left external carotid artery: Unremarkable course and patency. No occlusion or stenosis of the origin. Right vertebral artery: Unremarkable course and patency. No stenosis. No dissection or occlusion. Left vertebral artery: Unremarkable course and patency. No stenosis. No dissection or occlusion. Soft tissues: Normal. No significant soft tissue swelling. Bones/joints: Unremarkable bony alignment along cervical spine with multilevel degenerative changes could, and prior ACDF in C5 and C6 levels with interbody fusion in the intervening disc level.. IMPRESSION: No flow-limiting stenosis or occlusion along major extracranial arterial vessels.. at 1529 Reported and signed by: Javier Bales M.D. PAGE 3 Signed Report (CONTINUED) Name: MARY DALY : 1955 Age/S: 66 / M [address] [place] [address] Blvd Unit #: [id number] Loc: [place] [address] Phys: Frieda Abdi NP Acct: [id number] Dis Date: Status: ADM IN PHONE #: [phone] Exam Date: 07/29/2022 1704 FAX #: [phone] Reason: temporal arteritis EXAMS: CPT CODE: [id number] CTA HEAD 30635 (Continued) CC: Sam Price MD; Albino Torre MD; Frieda Abdi NP Technologist:RT Mani(R)(CT) CTDI: DLP: Trnscb Date/Time: 07/30/2022 (1528) [id number] Orig Print D/T: S: 07/30/2022 (1528) PAGE 4 Signed Report- CT ANGIO [id number] 00:00:00 [facility] ALEAH POWELLName: MARY DALY : 1955 Sex: M Name: MARY DALY : 1955 Age/S: 66 / M [address] [place] [address] Blvd Unit #: [id number]: [place] [address] Phys: Frieda Abdi [employer] [place] Acct: [id number] Dis Date: Status: ADM IN PHONE #: [phone] Exam Date: 07/29/2022 1704 FAX #: [phone] Reason: temporal arteritis EXAMS: CPT CODE: [id number] CT ANGIO NECK 48789 PROCEDURE INFORMATION: Exam: CTA Head With Contrast, Arteriography Exam date and time: 07/29/2022 4:55 PM Age: 66 years old Clinical indication: Other: Temporal arteritis TECHNIQUE: Imaging protocol: Computed tomographic angiography of the head with contrast. Exam focused on the arteries. 3D rendering (Not supervised by radiologist): MIP and/or 3D reconstructed images were created by the technologist. Radiation optimization: All CT scans at this facility use at least one of these dose optimization techniques: automated exposure control; mA and/or kV adjustment per patient size (includes targeted exams where dose is matched to clinical indication); or iterative reconstruction. Contrast material: [id number]; Contrast volume: 100 ml; Contrast route: INTRAVENOUS (IV); REPORTING DATA: Count of CT and Cardiac NM exams in prior 12 months: This patient has received [address] and 0 known cardiac nuclear medicine studies in the 12 months prior to the current study. COMPARISON: US DUP [place] 07/28/2022 10:49 AM FINDINGS: ANTERIOR CIRCULATION: Right internal carotid artery: Unremarkable course and patency. Intracranial segment is patent with no significant stenosis. No aneurysm. Right middle cerebral artery: Unremarkable course and patency. No occlusion or sign ificant stenosis. No aneurysm. Right anterior cerebral artery: Unremarkable course and patency. Azygous A2 and A3 segments. No occlusion or significant stenosis. No aneurysm. Left internal carotid artery: Unremarkable course and patency. Intracranial segment is patent with no significant stenosis. No a neurysm. Left middle cerebral artery: Unremarkable course and patency. No occlusion or significant stenosis. No aneurysm. Left anterior cerebral artery: Unremarkable course and patency. Azygous A2 and A3 segments. No occlusion or significant stenosis. No aneurysm. Anterior communicating artery: Unremarkable patency POSTERIOR CIRCULATION: Right vertebral artery: Unremarkable course and patency. No occlusion or significant stenosis. No aneurysm. PAGE 1 Signed Report (CONTINUED) Name: MARY DALY [facility]: 1955 Age/S: 66 / M [address] [place] [address] Blvd Unit #: [id number] Loc: [place] [address] Phys: Frieda Otero [employer] [place] Acct: [id number] Dis Date: Status: ADM IN PHONE #: [phone] Date: 07/29/2022 1704 FAX #: [phone] Reason: temporal arteritis EXAMS: CPT CODE: [id number] CT ANGIO NECK 87461 (Continued) Left vertebral artery: Unremarkable course and patency. No occlusion or significant stenosis. No aneurysm. Basilar artery: Unremarkable course and patency. No occlusion or significant stenosis. No aneurysm. Right posterior cerebral artery: configuration Unremarkable course and patency. No occlusion or significant stenosis. No aneurysm. Left posterior cerebral artery: Unremarkable course and patency. No occlusion or significant stenosis. No aneurysm. Dural venous sinuses: Unremarkably patent. Brain: No definite mass, mass effect, or midline shift. Cerebral ventricles: Midline in position, normal caliber. Bones/joints: Unremarkable. No acute fracture. Soft tissues: Unremarkable. IMPRESSION: No flow-limiting stenosis or occlusion along major intracranial arterial vessels. No acute intracranial process nor bony injury PROCEDURE INFORMATION: Exam: CTA Neck With Contrast Exam date and time: 07/29/2022 4:55 PM Age: 66 years old Clinical indication: Other: Temporal arteritis TECHNIQUE: Imaging protocol: Computed tomographic angiography of the neck with contrast. 3D rendering (Not supervised by radiologist): MIP and/or 3D reconstructed images were created by the technologist. Radiation optimization: All CT scans at this facility use at least one of these dose optimization techniques: automated exposure control; mA and/or kV adjustment per patient size (includes targeted exams where dose is matched to clinical indication); or iterativereconstruction. Contrast material: PCES090; Contrast volume: 100 ml; Contrast route: INTRAVENOUS (IV); REPORTING DATA: Count of CT and Cardiac NM exams in prior 12 months: This patient has received [address] and 0 known cardiac nuclear medicine studies in the 12 months prior to the current study. COMPARISON: US DUP [place] 07/28/2022 10:49 AM FINDINGS: Lung apices: No concerning interstitial process. Visualized PAGE 2 Signed Report (CONTINUED) Name: MARY DALY : 1955 Age/S: 66 / M [address] [place] [address] Unit #: [id number] Loc: [place] [address] Phys: Frieda Abdi [employer] [place] [employer] [place] Acct: [id number] Dis Date: Status: ADM IN PHONE #: [phone] Exam Date: 07/29/2022 170 FAX #: [phone] Reason: temporal arteritis EXAMS: CPT CODE: [id number] CT ANGIO NECK [address]29[address] (Continued) portions of central major pulmonary arteries are patent without filling defect. Widened upper mediastinum compatible with lipomatosis. Great vessels: Unremarkably patent along their proximal segments, and unremarkable takeoff from patent aortic arch. Right common carotid artery: Unremarkable course and patency. No stenosis. No dissection or occlusion. Right internal carotid artery: Unremarkable course and patency. Increased calcification along origin and proximal segment of this artery without flow- limiting stenosis. No stenosis of the extracranial segment. No dissection or occlusion. Right external carotid artery: Unremarkable course and patency. No occlusion or stenosis of the origin. Left common carotid artery: Unremarkable course and patency. No stenosis. No dissection or occlusion.Left internal carotid artery: Unremarkable course and patency. Increased calcification along origin and proximal segment of this artery without flow-limiting stenosis. No stenosis of the extracranial segment. No dissection or occlusion. Left external carotid artery: Unremarkable course and patency. Noocclusion or stenosis of the origin. Right vertebral artery: Unremarkable course and patency. No stenosis. No dissection or occlusion. Left vertebral artery: Unremarkable course and patency. No stenosis. No dissection or occlusion. Soft tissues: Normal. No significant soft tissue swelling. Bones/joints: Unremarkable bony alignment along cervical spine with multilevel degenerative changes could, and prior ACDF in C5 and C6 levels with interbody fusion in the intervening disc level.. IMPRESSION: No flow-limiting stenosis or occlusion along major extracranial arterial vessels.. at 1529 Reported and signed by: Javier Bales M.D. PAGE 3 Signed Report (CONTINUED) Name: MARY DALY : 1955 Age/S: 66 / M [address] [place] [address] Blvd Unit #: [id number] Loc: [place] [address] Phys: Frieda Abdi [employer] [place] Acct: [id number] Dis Date: Status: ADM IN PHONE #: [phone] Exam Date: 07/29/2022 170 FAX #: [phone] Reason: temporal arteritis EXAMS: CPT CODE: [id number] CT ANGIO NECK [address]882 (Continued) CC: Sam Price MD; Albino Torre MD; Frieda Abdi NP Technologist:Katherin Poole RT(R)(CT) CTDI: DLP: Trnscb Date/Time: 07/30/2022 (1528) [email or web address] Orig Print D/T: S: 07/30/2022 (1528) PAGE 4 Signed ReportCBC W/MANUAL DIFF 2022-07-29 11:07:00 Test Item Value Reference Range Interpretation Comments WHITE BLOOD CELL (test code 16.0 x10 3/uL 4.5-11.0 H = WBC) RED BLOOD CELL (test code = 4.27 x10 6/uL 4.00-5.60 N RBC) HEMOGLOBIN (test code = 13.5 g/dL 12.5-16.9 N HGB) HEMATOCRIT (test code = 38.4 % 37.5-50.7 N HCT) MEAN CELL VOLUME (test code 89.9 fL 81.0-99.0 N = MCV) MEAN CELL HGB (test code = 31.6 pg 27.0-33.0 N MCH) MEAN CELL HGB CONCETRATION 35.2 g/dL 33.0-37.0 N (test code = MCHC) RED CELL DISTRIBUTION WIDTH 14.0 % 11.5-14.5 N CV (test code = RDW) RED CELL DISTRIBUTION WIDTH 46.3 fL 37.0-54.0 N SD (test code = RDW-SD) PLATELET COUNT (test code = 233 x10 3/uL 150-400 N PLT) MEAN PLATELET VOLUME (test 11.2 fL 7.0-9.0 H code = MPV) BAND NEUTROPHIL (test code 0.0 % 0.0-10.0 N = BAND) ANISOCYTOSIS (test code = NORMAL ANISO) PLATELET ESTIMATE (test Adequate THOUSAND ADEQUATE code = PLTEST) SEGMENTED NEUTROPHILS (test 83.6 % 37-69 H code = SEG) LYMPHOCYTE (test code = 10.9 % 23-55 L LYMPH) MONOCYTE (test code = MON) 5.5 % 0-10 N HGBA1C%2022-07-29 07:10:00 Test Item Value Reference Range Interpretation Comments HGBA1C% (test code = HGBA1C%) 6.2 %A1C 4.8-6.0 H COMPREHENSIVE METABOLIC [id number] 04:59:00 Test Item Value Reference Range Interpretation Comments SODIUM (test code = 139 mEq/L 134-147 N NA) POTASSIUM (test code 4.2 mEq/L 3.4-5.0 N = K) CHLORIDE (test code 106 mEq/L 100-108 N = CL) CARBON DIOXIDE (test 26 mEq/l 21-33 N code = CO2) ANION GAP (test code 12 0-20 N = GAP) GLUCOSE (test code = 113 mg/dL 70-110 H GLU) BLOOD UREA NITROGEN 17 mg/dL 7-18 N (test code = BUN) GLOMERULAR 82.0 80-90 N The Glomerular FILTRATION RATE Filtration R ate is a (test code = GFR) calculated parameterbased on serum Creatinine, pat ient age and sex. GFR va luesless than 60 mL/min/ 1.73 square meters a re indicative ofCh ronic Kidney Disease. Values less than 15 mL/min/1.73squa re meters indicate Kidney failure. The calculation for GFR is based on the CK D-EPI (2020) calculat ion. This formulais race indifferent and is the recommended for deborah for GFRby the Natio nal Kidney Foundati on for Adults.The GFR will not calculate if th e sex is unknown or if thepatient's ag e is <18 years. CREATININE (test 1.0 mg/dL 0.6-1.3 N code = CREAT) TOTAL PROTEIN (test 6.2 g/dL 6.4-8.2 L code = PROT) ALBUMIN (test code = 3.40 g/dL 3.4-5.0 N ALB) CALCIUM (test code = 9.0 mg/dL 8.0-10.5 N CA) BILIRUBIN TOTAL 0.30 mg/dL 0.0-1.0 N (test code = BILT) SGOT/AST (test code 16 IUnit/L 15-37 N = AST) SGPT/ALT (test code 20 IUnit/L 30-65 L = ALT) ALKALINE PHOSPHATASE 61 IUnit/L 20-125 N TOTAL (test code = ALKP) UA RFLX MICR CULT IF [id number] 20:41:00 Test Item Value Reference Range Interpretation Comments UA COLOR (test code = COLU) YELLOW YEL/STRAW UA APPEARANCE (test code = CLEAR CLEAR APPU) UA GLUCOSE DIPSTICK (test code NEGATIVE NEGATIVE = DGLUU) UA BILIRUBIN DIPSTICK (test NEGATIVE NEGATIVE code = BILU) UA KETONE DIPSTICK (test code NEGATIVE NEGATIVE = KETU) UA SPECIFIC GRAVITY (test code 1.017 1.005-1.030 N = SGU) UA BLOOD DIPSTICK (test code = NEGATIVE NEGATIVE SOFI) UA PH DIPSTICK (test code = 5.0 5.0-7.0 N SUYAPA) UA PROTEIN DIPSTICK (test code NEGATIVE NEGATIVE = PROU) UA UROBILINIOGEN DIPSTICK 0.2 mg/dL 0.2-1.0 (test code = URO) UA NITRITE DIPSTICK (test code NEGATIVE NEGATIVE = YEIMY) UA LEUKOCYTE ESTERASE DIPSTICK NEGATIVE NEGATIVE (test code = LEUU) UA WBC (test code = WBCU) 0-3 WBC/HPF 0-3 UA RBC (test code = RBCU) 0-3 RBC/HPF 0-3 UA WBC NO REFLEX (test code = 0-3 WBC/HPF 0-3 WBCUCL) UA BACTERIA (test code = BACU) NONE SEEN /HPF NONE SEEN UA SQUAMOUS CELLS (test code = 0-5 /HPF NONE SEEN SQU) UA MUCUS (test code = MUCU) TRACE /LPF NONE SEEN Indication for culture: Dysuria/FrequencySpecimen Description: CLEAN CATCH- CT CHEST W/O [id number] 16:57:00 [facility] : 1955 Sex: M Name:MARY DALY : 1955 Age/S: 66 / M [address] [place] [address] Unit #: [id number]: [place] [address] Phys: Rosalind Mendez Physic Acct: [id number] Dis Date: Status: ADM IN PHONE #: [phone] Exam Date: 07/28/2022 1303 FAX #: [phone] Reason: CAD, R/O Stenosis, EXAMS: CPT CODE: [id number] CT CHEST W/O CONTRAST [address] CHEST WITHOUT CONTRAST HISTORY: CAD, R/O Stenosis, TECHNIQUE: Axial CT images were obtained through the chest without intravenous contrast and displayed in soft tissue and lung windows. Coronal and sagittal reformatted images were also created from the data set. One or more of the following dose reduction techniques were used: Automated exposure control, adjustment of the mA and/or kV according to patient size, and/or iterative reconstruction. Unless otherwise specified, incidental findings do not require dedicated imaging follow-up. COMPARISON: None FINDINGS: The lungs are clear. No pleural effusion or pneumothorax. There is no significant mediastinal or hilar adenopathy. Severe coronary artery calcification. The aorta and mediastinal structures show no other significant abnormalities. No acute osseous abnormalities. The visualized upper abdominal structures are within normal limits. IMPRESSION: Severe coronary artery calcification. Otherwise, no significant chest abnormalities. at 1657 Reported and signed by: Titus Choudhary M.D. PAGE 1 Signed Report (CONTINUED) Name: MARY DALY : 1955 Age/S: 66 / M [address] [place] [address] Unit #: [id number] Loc: [place] [address] Phys: Rosalind Mendez Kwaku Physic Acct: [id number] Dis Date: Status: ADM IN PHONE #: [phone] Exam Date: 07/28/2022 1303 FAX #: [phone] Reason: CAD, R/O Stenosis, EXAMS: CPT CODE: [id number] CT CHEST W/O CONTRAST 59296 (Continued) CC: Sam Price MD; Albino Torre MD; Rosalind Mendez Technologist:Katherin Poole, RT(R)(CT) CTDI: DLP: Trnscb Date/Time: 07/28/2022 (4617)[email or web address] Orig Print D/T: S: 07/28/2022 (8453) PAGE 2 Signed ReportPLT RESPONSE TO [id number] 10:08:00 Test Item Value Reference Range Interpretation Comments PLT RESPONSE TO PLAVIX 164 PRU 182-335 L Value s <180 PRU are (test code = PLAVRES) specif ic evidence of a P2Y12 inhibitor effect. Testing can onl y be performed if pa tient sample values a re within the following r anges: Hematocrit 33-5 2%, Platelet Count 119,000-502,000 /uL. Patient values outside of theseranges will be rejected by our instrumentation . - DUP VEIN [id number] 00:00:00 [facility] : 1955 Sex: M Name: MARY DALY [facility] : 1955 Age/S: 66 / M [address] [facility] [address] Unit #: [id number]: [place] [address] Phys: Rosalind Mendez Acct: [id number] Dis Date: Status: ADM IN PHONE #: [phone] Exam Date: 07/28/2022 1144 FAX #: [phone] Reason: Bilateral vein mapping. EXAMS: CPT CODE: [id number] DUP [place]IN [place] [address] PROCEDURE INFORMATION: Exam: US Duplex Lower Extremity Veins; Vein mapping Exam date and time: 07/28/2022 11:04 AM Age: 66 years old Clinical indication: Screening exam; Pre op; Additional info: Bilateral vein mapping. TECHNIQUE: Imaging protocol: Vein mappingperformed of the greater saphenous veins bilaterally. Measurements are in the anterior to posterior dimension. No thrombosis of the greater saphenous veins bilaterally. COMPARISON: No relevant prior studies available. Right greater saphenous vein: Proximal thigh 3.0 mm Mid thigh 1.1 mm Distal thigh 1.4 mm Proximal calf 0.8 mm Mid calf 0.5 mm Distal calf 1.7 mm Left greater saphenous vein: Proximal thigh 1.9 mm Mid thigh 1.2 mm Distal thigh 1.1 mm Proximal calf 1.1 mm Mid calf 1.4 mm Distal calf 1.5 mm. Impression: 1. Vein mapping of the greater saphenous veins bilaterally as above. at 1155 Reported and signed by: Kong Marrero M.D. CC: Sam Price MD; Albino Torre MD; Rosalind Mendez Technologist: Evelin Turner RDMS(AB) Trnscb Date/Time: 07/28/2022 (1155) [email or web address] Orig Print D/T: S: 07/28/2022 (1155) Probe: PAGE 1 Signed Report- [facility] EX[facility] [id number] 00:00:00 [facility] : 1955 Sex: M Name: MARY DALY [place] : 1955 Age/S: 66 / M [address] [place] [address] Blvd Unit #: [id number] Loc: [place] [address] Phys: Rosalind Mendez Acct: [id number] Dis Date: Status: ADM IN PHONE #: [phone] Exam Date: 07/28/2022 1144 FAX #: [phone] Reason: CAD, R/O Stenosis, EXAMS: CPT CODE: [id number] [place] [address] PROCEDURE INFORMATION: Exam: US Duplex Bilateral Extracranial Arteries; Complete; Carotid Arteries Exam date and time: 07/28/2022 10:49 AM Age: 66 years old Clinical indication: Screening exam; Additional info: Cad, R/O stenosis, TECHNIQUE: Imaging protocol: Real-time duplex ultrasound scan of the bilateral extracranial arteries combining walters scale, color Doppler and spectral waveform analysis with image documentation. Complete exam. Exam focused on the carotid arteries. COMPARISON: No relevant prior studies available. TECHNIQUE: Walters-scale, color Dopplerand spectral Doppler of the carotid arteries was performed. Any reported ICA stenoses indirectly reference the distal internal carotid diameter as the denominator for the stenosis measurement, utilizing consensus panel criteria. FINDINGS: RIGHT: Plaque is noted along the right bulb and right internal carotid artery. ICA PSV 72 cm/sec CCA PSV 112 cm/sec ICA/CCA ratio 0.6 Vertebral flow is antegrade . E xternal carotid artery is patent. LEFT: Plaque is noted in the left bulb region. ICA PSV 94 cm/sec CCA PSV 125 cm/sec ICA/CCA ratio 0.7 Vertebral flow is antegrade . External carotid artery is patent. IMPRESSION: 1. No ultrasound evidence for hemodynamically significant stenosis to either carotid artery. Consensus panel Doppler US criteria for diagnosis of ICA stenosis: Stenosis (%) ICA PSV (cm/sec) ICA/CCA ratio <50 <180 <2.0 50-69 180-230 2.0-4.0 >70 but less than >230 >4.0 PAGE 1 Signed Report (CONTINUED) Name: MARY DALY : 1955 Age/S: 66 / M [address] [place] [address] Blvd Unit #: [id number] Loc: [place] [address] Phys: Rosalind Mendez Acct: [id number] Dis Date: Status: ADM IN PHONE #: [phone] Exam Date: 07/28/2022 1144 FAX #: [phone] Reason: CAD, R/O Stenosis, EXAMS: CPT CODE: [id number] [place] [address] (Continued) near occlusion Near occlusion High, low, or Variable undetectable at 1158 Reported and signed by: Kong Marrero M.D. 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[facility] - XR CHEST 2 [id number] 00:00:00 [facility] [place]: [place]ARY D[place] : 1955 Sex: M FAX: Sam Mckoy MD [phone] [place]: St: PRE FAX: Albino Castillo MD [phone] Name: MARY DALY [facility] : 1955 Age/S: 66/M [address] [place] [address] Unit #: [id number] Loc: [place] [address] Phys: Sam Price MD Acct: [id number] Dis Date: Status: PRE [facility] [place]ONE #: [phone] Exam Date: 1629 FAX #: [phone] Reason: PREOP EXAMS: CPT CODE: [id number] XR CHEST 2 V 48514 PROCEDURE INFORMATION: Exam: XR Chest Exam date and time: 07/23/2022 4:05 PM Age: 66 years old Clinical indication: Pre-operative exam; Cardiovascular screening and respiratory screening exam; Additional info:Preop TECHNIQUE: Imaging protocol: Radiologic exam of the chest. Views: 2 views. PA and Lateral COMPARISON: No relevant prior studies available. FINDINGS: Lungs: Normal lung volumes. No consolidation. Pleural spaces: No pleural effusion. No pneumothorax. Heart/Mediastinum: The cardiomediastinal silhouette is within normal limits. Pulmonary vasculature is unremarkable. Atherosclerotic calcification ofthe aorta. Bones/joints: Fusion hardware the lower cervical spine is partially visualized. No acute osseous abnormality. IMPRESSION: No acute cardiopulmonary disease. at 0717 Reported and signed by: Cindy Moreira M.D. CC: Sam Price MD; Albino Torre MD Technologist: RT Earl(Katherine[facility] Date/Time/By: 07/24/2022 (716) : By: [email or web address] Orig Print D/T: S: 07/24/2022 (716) PAGE 1 Signed ReportPROTHROMBIN [id number] 16:55:00 Test Item Value Reference Range Interpretation Comments PROTHROMBIN TIME 10.9 SECONDS 9.3-12.9 N PATIENT (test code = PTP) INTERNATIONAL NORMAL 1.0 0.8-1.2 N TARGET INR BY RATIO (test code = INDICATIO N Indication INR) INR1. Prophylax is of venous thrombos is 2.0 - 3.0 (orthoped ic surgery), Proph ylaxis of venous throm bosis (other than hig h-risk surgery), Treat ment of Deep Vein Thrombosis/Pulm onary Embolism, Preve ntion of systemic emb olism - Tissue heart va lves, Acute Myocardia l Infarction (to prevent systemic emboli sm), Valvular heart disease, Atrial Fibrillation, Bileaflet mecha nical valve in aortic position.2. Mec hanical prosthetic valv es (high risk), 2. 5 - 3.5 Presence of Lup us Anticoagulant o r Antiphospholipi d Antibodies, Pre vention of systemic emb olism - Acute Myocardia l Infarction (to prevent recurrent infar ct). BASIC METABOLIC [id number] 16:51:00 Test Item Value Reference Range Interpretation Comments SODIUM (test code = 139 mEq/L 134-147 N NA) POTASSIUM (test code 4.0 mEq/L 3.4-5.0 N = K) CHLORIDE (test code 106 mEq/L 100-108 N = CL) CARBON DIOXIDE (test 25 mEq/l 21-33 N code = CO2) ANION GAP (test code 12 0-20 N = GAP) GLUCOSE (test code = 125 mg/dL 70-110 H GLU) BLOOD UREA NITROGEN 10 mg/dL 7-18 N (test code = BUN) GLOMERULAR 93.0 80-90 H The Glomerular FILTRATION RATE Filtration R ate is a (test code = GFR) calculated parameterbased on serum Creatinine, pat ient age and sex. GFR va luesless than 60 mL/min/ 1.73 square meters a re indicative ofCh ronic Kidney Disease. Values less than 15 mL/min/1.73squa re meters indicate Kidney failure. The calculation forGFR is based on the CKD-EPI (2020) calculat ion. This formulais race indifferent and is the recommended for deborah for GFRby the [facility] on for Adults.The GFR will not calculate if th e sex is unknown or if thepatient's ag e is <18 years. CREATININE (test 0.9 mg/dL 0.6-1.3 N code = CREAT) CALCIUM (test code = 8.9 mg/dL 8.0-10.5 N CA) CBC W/AUTO [id number] 16:43:00 Test Item Value Reference Range Interpretation Comments WHITE BLOOD CELL (test code = 9.3 x10 3/uL 4.5-11.0 N WBC) RED BLOOD CELL (test code = 4.65 x10 6/uL 4.00-5.60 N RBC) HEMOGLOBIN (test code = HGB) 14.6 g/dL 12.5-16.9 N HEMATOCRIT (test code = HCT) 42.3 % 37.5-50.7 N MEAN CELL VOLUME (test code = 91.0 fL 81.0-99.0 N MCV) MEAN CELL HGB (test code = MCH) 31.4 pg 27.0-33.0 N MEAN CELL HGB CONCETRATION 34.5 g/dL 33.0-37.0 N (test code = MCHC) RED CELL DISTRIBUTION WIDTH CV 13.7 % 11.5-14.5 N (test code = RDW) RED CELL DISTRIBUTION WIDTH SD 46.3 fL 37.0-54.0 N (test code = RDW-SD) PLATELET COUNT (test code = 213 x10 3/uL 150-400 N PLT) MEAN PLATELET VOLUME (test code 10.9 fL 7.0-9.0 H = MPV) NEUTROPHIL % (test code = NT%) 65.3 % 56.0-77.0 N IMMATURE GRANULOCYTE % (test 0.2 % 0.0-2.0 N code = IG%) LYMPHOCYTE % (test code = LY%) 24.2 % 14.0-32.0 N MONOCYTE % (test code = MO%) 7.8 % 4.8-9.0 N EOSINOPHIL % (test code = EO%) 1.7 % 0.3-3.7 N BASOPHIL % (test code = BA%) 0.8 % 0.0-2.0 N NUCLEATED RBC % (test code = 0.0 % 0-0 N NRBC%) NEUTROPHIL # (test code = NT#) 6.05 x10 3/uL 2.0-7.6 N IMMATURE GRANULOCYTE # (test 0.02 x10 3/uL 0.00-0.03 N code = IG#) LYMPHOCYTE # (test code = LY#) 2.24 x10 3/uL 1.0-3.8 N MONOCYTE # (test code = MO#) 0.72 x10 3/uL 0.1-0.8 N EOSINOPHIL # (test code = EO#) 0.16 x10 3/uL 0.0-0.2 N BASOPHIL # (test code = BA#) 0.07 x10 3/uL 0.0-0.2 N NUCLEATED RBC # (test code = 0.00 x10 3/uL 0.0-0.1 N NRBC#) MANUAL DIFF REQUIRED (test code NO = MDIFF) Notes Date/Time Note Provider Source 2022-08-31 14:37:00-00:00 [id number] [place] [address] PATIENT NAME: MARY DALY ADMIT DATE: 08/16/22 ACCOUNT NO: [id number] ROOM NO: [id number] AGE: 66 REPORT TYPE: 360 - QUERY RESPONSE DOCUMENT SEX: M ADMITTING PHYSICIAN:Ludin Mccurdy MD ATTENDING PHYSICIAN:Ludin Mccurdy MD Provider Query QUERY TEXT: Specificity IP Debridement 360MD Query related questions should be directed to: Kiarra welch [facility] Coding Query Helpline Based on your clinical judgment, please clarify the depth and type of the debridement documented in the [ OPERATIVE REPORT 08/16/2022 (3)]: The classification system requires the type and depth to be included in the documentation. The depth require s the level (e.g. skin, fascia/subq, muscle, tendon, bone as well as the name of structures involved. The classification system defines excisional and non-excisional debridement as follows: -- Excisional debridement - the surgical removal of necrotic, devitalized tissue or slough by means of cutting away of tissue (common methods include the use o f scissors, scalpel or curette. This includes sharp debridem ent ONLY when documentation describes a definite cutting away of tissue. -- Non-excisional debridement - the removal of n ecrotic, devitalized tissue or slough by such methods as : flushing, brushing, irrigation (under pressure) , washing, water scalpel (jet), maggot therapy, etc. This also includes the minor removal of loose fragments w ith scissors or scraping with a sharp instrument. The patient's Clinical Indicators include: Debridement of the sternal wound.-OPERATIVE REPO RT 08/16/2022 (3) Sternal wound dehiscence-OPERATIVE REPORT 2022 (3) removed subcuticular sutures-OPERATIVE REPORT (3) edges of the wound were debrided-OPERATIVE REPOR T 08/16/2022 (3) Piperacillin/Tazo 3.375 GM Inj-MAR Options provided: -- Skin, Please indicate type (excisional, non-e xcisional). -- Subcutaneous/Fascia, Please indicate type (ex cisional, non-excisional). -- Tendon, Please indicate type (excisional, non-excisional). -- Muscle, Please indicate type (excisional, non-excisional) and body part(s) involved. -- Bone, Please indicate type (excisional, non-e xcisional) and specific bone(s). -- Other - I will add my own diagnosis -- Dismiss - Not applicable / Not valid -- Dismiss - Clinically unable to determine / Un known -- Assign to another provider QUERY RESPONSE: The patient had subcutaneous/fascia debridement. excisional Query created by: SADAF AVILES on 08/27/2022 8:58 AM at 1437 PATIENT NAME: MARY DALY 5 2022-08-25 14:43:00-00:00 [facility] ([facility]) Discharge Summary REPORT#:[id number] REPORT STATUS: Signed DATE:08/25/22 TIME: 1443 PATIENT: MARY DALY UNIT #: [id number] ROOM[facility]ED: [facility] : 53 AGE: 67 SEX: M ATTEND: Siri Mccurdy MD ADM AUTHOR: Rosalind Mendez Physic * ALL edits or amendments must be made on the el ectronic/computer document * General Information Discharge date: 08/25/22 Discharge diagnosis: S/P CABG, Sternal wound drinage, S/P Sternal wou nd dbridement. Hospital course: This is a 58-year-old gentleman with past medica l history of coronary artery disease status post coronary artery bypass graft CABG x 4 (MITCHELL-LAD, SVG-OM1, SVG-OM2, SVG-PDA)on 08/02/[address] Mccurdy. He has a history of temporal arteritis on chronic prednisone, diverticulitis, gout, hypertension, hyperlipidemia. His postop course, he did very well. Working wit h physical therapy. He was mobile, walking with PT OT. His wounds were vicenta n and dry. There was no drainage upon discharge. He was discharged on po stop day 7. He was discharged on 08/09/2022. He repor ts about 2 or 3 days ago he started to notice increased drainage in his distal sternal wound. He also reports having chills at night. The patient admits to not check ing his temperature. The patient denies any nause a or vomiting, denies any shortness of breath, does complain of right-sided chest wall pain. Patient is admitted for observation for sternal wound drainage Assessment/plan 1. Coronary artery disease Status post coronary artery bypass graft surger y on 08/02/2022 2. Sternal wound drainage Obtain CT noncontrast chest 3. Hypertension 4. Hyperlipidemia Patient will be admitted for investigation of st ernal wound drainage. Will obtain CT noncontrast of the chest. DVT studies of the lower extremities We will start IV antibiotics, routine labs. Further recommendations to follow 08/17/22 POD 1 08/18/22 Continue abx as per ID Wound care team to change wound vac Labs reviewed Transfer to CVN 1 08/19/22 Patient in stable condition, no complaints, afeb rile Reviewed labs Wound vac changed per wound care team On room air Antibiotics per ID, PICC line ordered for home a ntibiotics Discharge home soon 08/20/22 Patient doing well Denies pain Breathing comfortable on room air Encourage I-S use and mobilization Awaiting PICC line and insurance approval for ho me antibiotics 08/21/22 Patient resting comfortable, on room air PICC line placed Home antibiotics arranged by nurse case management Pending home wound vac Encourage mobilization and I-S use Discharge home once abx and wound vac arranged. 08/22/22 Patient doing well Afebirle Continue antibiotics Discharge home once wound vac set up Encourage I-S use and ambulation 08/23/22 AAOx3 Patient resting comfortable, denies complaints Afebrile Labs reviewed On IV antibiotics as per ID. PICC line in place, outpatient IV antibiotics being arranged Wound VAC in place. Outpatient home health and w ound care being arranged Respiratory: On room air 99% Cardiac: Remains sinus rhythm Patient was seen and examined by Dr. Mccurdy Home once IV antibiotics and wound VAC arranged 08/24/22 AAOx3 Patient resting comfortable, denies complaints Afebrile Labs reviewed On IV antibiotics as per ID. PICC line in place, outpatient IV antibiotics being arranged Wound VAC in place. Case management working on o utpatient wound vac. Respiratory: On room air 99% Cardiac: Remains sinus rhythm Patient was seen and examine d by Dr. Mccurdy. Home once IV antibiotics and wound VAC arranged. Per nurse, awaiting insurance appr oval for wound VAC 08/25/22 AAOx3 Patient resting comfortable, denies complaints. Wants to go home Labs reviewed On IV antibiotics as per ID. PICC line in place, outpatient IV antibiotics being arranged Wound VAC in place. Case management working on o utpatient wound vac. Respiratory: On room air 99% Cardiac: Remains sinus rhythm Home once IV antibiotics and wound VAC arranged . Awaiting insurance approval for wound vac, case management following Okay to DC patient home once outpatient wound VA C and IV antibiotics in place per case management Patient was seen and examined by Dr. Mccurdy. Med Rec PCP PCP: PCP: Albino Torre MD Med Rec Discharge meds: Stop taking the following medications: ATORVASTATIN (LIPITOR) 10 MG TAB 10 MILLIGRAM ORAL DAILY. NEBIVOLOL (BYSTOLIC) 20 MG TAB 20 MILLIGRAM ORAL TWICE DAILY. amLODIPine (NORVASC) 10 MG TAB 10 MILLIGRAM ORAL DAILY. Continue taking these medications: CIPROFLOXACIN (CIPROFLOXACIN) 500 MG TAB 500 MILLIGRAM ORAL DAILY. as needed for DIVERTI CULITIS CLOPIDOGREL (PLAVIX) 75 MG TAB 75 MILLIGRAM ORAL DAILY. metroNIDAZOLE (FLAGYL) 500 MG TAB 500 MILLIGRAM ORAL THREE TIMES A DAY. as needed for DIVERTICULITIS OMEPRAZOLE ER (PriLOSEC) 40 MG CAP.DR 40 MILLIGRAM ORAL DAILY. as needed for ACID REF LUX predniSONE (predniSONE) 1 MG TAB 1 MILLIGRAM ORAL THREE TIMES A DAY. SILDENAFIL (VIAGRA) 100 MG TAB 100 MILLIGRAM ORAL DAILY NEEDED. as needed f or ED SODIUM FLUORIDE (PREVIDENT 5000 1.1% DENTAL) 1.1 % GEL 1 APPLIC TOPICAL DAILY. ASPIRIN (ASPIRIN) 81 MG TAB.CHEW 81 MILLIGRAM ORAL DAILY. POTASSIUM GLUCONATE (POTASSIUM GLUCONATE) 550 MG (90 MG) TAB 1 TABLET ORAL DAILY. CALCIUM CARBONATE (CALTRATE 600 MG) 600 MG CALCI UM (1,500 MG) TAB 600 MILLIGRAM ORAL DAILY. CHOLECALCIFEROL (VITAMIN D3) (VITAMIN D3) 25 MCG (1,000 UNIT) TAB 1,000 UNITS ORAL DAILY. ACETAMINOPHEN (TYLENOL) 500 MG TAB 500 MILLIGRAM ORAL EVERY 4 HOURS NEEDED. as needed for PAIN IBUPROFEN (ADVIL) 200 MG TAB 200 MILLIGRAM ORAL EVERY 6 HOURS NEEDED. as needed for PAIN FAMOTIDINE (PEPCID) 20 MG TAB 20 MILLIGRAM ORAL DAILY. LOSARTAN (COZAAR) 50 MG TAB 50 MILLIGRAM ORAL DAILY. Start taking the following new medications: ATORVASTATIN (LIPITOR) 40 MG TAB 40 MILLIGRAM ORAL 2100 Days = 30 Qty = 30 No Refills METOPROLOL TARTRATE (LOPRESSOR) 25 MG TAB 12.5 MILLIGRAM ORAL TWICE DAILY. Days = 30 Qty = 60 No Refills Objective VS/I O Last Documented: Result Date Time Pulse Ox 96 08/25 1053 B/P 139/75 08/25 1053 B/P Mean 0.0 08/25 1053 O2 Delivery Room air 08/25 105 Temp 97.9 08/25 1053 Pulse 56 08/25 1053 Resp 18 08/25 1053 FiO2 21 08/23 2024 O2 Flow Rate 2 08/16 1400 24 hour I O ending at 0700: 08/25 0700 08/24 1900 Intake Total 250 600 Output Total 600 640 Balance -350 -40 Intake, Oral 250 600 Output, 40 Drainage Output, Urine 600 600 Patient 80.2 kg Weight Weight Standing scale Measurement Method PATIENT WEIGHT: Weight (lb): 176 Weight (oz): 12.97 Weight (kg): 80.200 General appearance: alert, awake, oriented Discharge Instructions PCP )( Discharge to: Home/Self Care Discharge Instructions Additional Discharge Routines: Attending Follow- Up )( Diet: Cardiac Follow-up Appointments Attending Physician: Attending Physician: Ludin Mccurdy MD Attending physician follow up timeframe: In 2-3 weeks at 1445 at 1351 RPT #:[id number] END OF REPORT 2022-08-25 13:19:00-00:[address] [facility] Infectious Dis. Progress Note REPORT#:[id number] REPORT STATUS: Signed DATE:08/25/22 TIME: 1319 PATIENT: MARY DALY UNIT #: [id number] ROOM/BED: [place] [address] : 53 AGE: 66 SEX: M ATTEND: Siri Mccurdy MD ADM AUTHOR: Dafne Granda MD * ALL edits or amendments must be made on the [employer]/computer document * Subjective HPI: This is a 58-year-old male patient with history of coronary artery disease status post CABG on the who presents to the hospital with drainage from his distal sternal wound along with chills On the he underwent debridement of the ster nal wound and wound VAC placement His cultures are growing Staph aureus. He has been started on cefazolin 2 g every 8. 08/24/22: wants to go home with home health for iv abx. 08/25/22: doing well, sitting up in chair Patient reports: No: cough, diarrhea, fever, headache, pain, shor tness of breath, vomiting. Portions of this section wer e scribed by Ro Yost on 08/25/22 at 1319 Review of Systems Free Text ROS Notes Free Text ROS Notes: 14 systems reviewed and negative apart from pert inent points in the HPI Portions of this section wer e scribed by Ro Yost on 08/25/22 at 1319 Objective General VS/I O: Vital Signs Date Temp Pulse Resp B/P B/P Mean Pulse Ox FiO2 07/04-08/25 97.5-98.4 56-68 13-26 128-162/70-82 0.0-115 92-97 Last Documented: Result Date Time Pulse Ox 96 07/ 1053 B/P 139/75 07/05 1053 B/P Mean 0.0 07/05 1053 O2 Delivery Room air 07/ 1053 Temp 97.9 07/ 1053 Pulse 56 07/ 1053 Resp 18 07/ 1053 FiO2 21 / 2025 O2 Flow Rate 2 08/16 1400 Vital Signs: Date Time Temp Pulse Resp B/P B/P Pulse O2 O2 F low FiO2 Mean Ox Delivery Rate 07/05 1053 97.9 56 18 139/75 0.0 96 Room air 07/05 0727 97.5 64 18 154/82 0.0 95 Room air 07/05 0350 98.4 57 16 144/75 0.0 96 07/05 0300 63 13 144/75 104 94 07/05 0200 57 14 130/75 97 92 07/05 0101 65 16 160/82 115 95 07/05 0009 98.4 59 16 134/73 0.0 97 07/05 0000 60 14 134/73 97 93 07/04 2300 62 14 150/71 102 97 07/04 2200 63 16 145/74 103 93 07/04 2125 65 26 162/77 111 97 07/04 1922 98.1 66 17 147/75 0.0 96 07/04 1921 66 22 147/75 105 96 07/04 1603 97.9 68 16 128/70 89 97 24 hour I O ending at 0700: 07/05 0700 07/04 1900 Intake Total 250 600 Output Total 600 640 Balance -350 -40 Intake, Oral 250 600 Output, 40 Drainage Output, Urine 600 600 Patient 80.2 kg Weight Weight Standing scale Measurement Method PATIENT WEIGHT: Weight (lb): 176 Weight (oz): 12.97 Weight (kg): 80.200 Physical Exam General appearance: alert, awake, oriented Wound/incision: Location: Sternal wound dressing intact. vac present Head/Eyes: atraumatic, clear cornea ENT: moist mucosal membranes, normal dentition Cardiovascular: normal heart sounds, no rub Respiratory: clear to auscultation, symmetric ex pansion Abdomen: non-tender, normal bowel sounds Extremities: moves all, normal capillary refill Musculoskeletal: full range of motion, normal in spection Results Findings/Data: Laboratory Tests 08/25 426 Chemistry Sodium (134 - 147 mEq/L) 137 Potassium (3.4 - 5.0 mEq/L) 4.1 Chloride (100 - 108 mEq/L) 105 Carbon Dioxide (21 - 33 mEq/l) 27 Anion Gap (0 - 20) 9 BUN (7 - 18 mg/dL) 11 Creatinine (0.6 - 1.3 mg/dL) 0.8 Glomerular Filtr Rate (80 - 90) 96.4 H Glucose (70 - 110 mg/dL) 83 Calcium (8.0 - 10.5 mg/dL) 8.6 Magnesium (1.80 - 2.40 mg/dL) 2.23 Laboratory Tests 08/25 426 Hematology WBC (4.5 - 11.0 x10 3/uL) 9.2 RBC (4.00 - 5.60 x10 6/uL) 3.27 L Hgb (12.5 - 16.9 g/dL) 9.5 L Hct (37.5 - 50.7 %) 29.7 L MCV (81.0 - 99.0 fL) 90.8 MCH (27.0 - 33.0 pg) 29.1 MCHC (33.0 - 37.0 g/dL) 32.0 L RDW (11.5 - 14.5 %) 14.7 H Plt Count (150 - 400 x10 3/uL) 468 H MPV (7.0 - 9.0 fL) 10.0 H Neut % (Auto) (56.0 - 77.0 %) 59.0 Lymph % (Auto) (14.0 - 32.0 %) 24.6 Stephenson % (Auto) (4.8 - 9.0 %) 11.8 H Eos % (Auto) (0.3 - 3.7 %) 3.4 Baso % (Auto) (0.0 - 2.0 %) 0.7 Neut # (Auto) (2.0 - 7.6 x10 3/uL) 5.40 Lymph # (Auto) (1.0 - 3.8 x10 3/uL) 2.25 Stephenson # (Auto) (0.1 - 0.8 x10 3/uL) 1.08 H Eos # (Auto) (0.0 - 0.2 x10 3/uL) 0.31 H Baso # (Auto) (0.0 - 0.2 x10 3/uL) 0.06 Abs Immat Gran (auto) (0.00 - 0.03 x10 3/uL) 0. 05 H Add Manual Diff NO Immature Gran % (0.0 - 2.0 %) 0.5 Nucleated RBC % (0 - 0 %) 0.0 Nucleated RBCs # (Man) (0.0 - 0.1 x10 3/uL) 0.0 0 Laboratory Tests: 08/25 08/24 0427 0402 Chemistry Sodium (134 - 147 mEq/L) 137 138 Potassium (3.4 - 5.0 mEq/L) 4.1 4.1 Chloride (100 - 108 mEq/L) 105 106 Carbon Dioxide (21 - 33 mEq/l) 27 24 Anion Gap (0 - 20) 9 12 BUN (7 - 18 mg/dL) 11 9 Creatinine (0.6 - 1.3 mg/dL) 0.8 0.9 Glomerular Filtr Rate (80 - 90) 96.4 H 93.0 H Glucose (70 - 110 mg/dL) 83 82 Calcium (8.0 - 10.5 mg/dL) 8.6 9.0 Magnesium (1.80 - 2.40 mg/dL) 2.23 1.98 Hematology WBC (4.5 - 11.0 x10 3/uL) 9.2 9.4 RBC (4.00 - 5.60 x10 6/uL) 3.27 L 3.26 L Hgb (12.5 - 16.9 g/dL) 9.5 L 9.6 L Hct (37.5 - 50.7 %) 29.7 L 29.6 L MCV (81.0 - 99.0 fL) 90.8 90.8 MCH (27.0 - 33.0 pg) 29.1 29.4 MCHC (33.0 - 37.0 g/dL) 32.0 L 32.4 L RDW (11.5 - 14.5 %) 14.7 H 14.7 H Plt Count (150 - 400 x10 3/uL) 468 H 531 H MPV (7.0 - 9.0 fL) 10.0 H 10.1 H Neut % (Auto) (56.0 - 77.0 %) 59.0 60.3 Lymph % (Auto) (14.0 - 32.0 %) 24.6 23.2 Stephenson % (Auto) (4.8 - 9.0 %) 11.8 H 12.2 H Eos % (Auto) (0.3 - 3.7 %) 3.4 3.3 Baso % (Auto) (0.0 - 2.0 %) 0.7 0.5 Neut # (Auto) (2.0 - 7.6 x10 3/uL) 5.40 5.67 Lymph # (Auto) (1.0 - 3.8 x10 3/uL) 2.25 2.18 Stephenson # (Auto) (0.1 - 0.8 x10 3/uL) 1.08 H 1.15 H Eos # (Auto) (0.0 - 0.2 x10 3/uL) 0.31 H 0.31 H Baso # (Auto) (0.0 - 0.2 x10 3/uL) 0.06 0.05 Abs Immat Gran (auto) (0.00 - 0.03 x10 3/uL) 0. 05 H 0.05 H Add Manual Diff NO NO Immature Gran % (0.0 - 2.0 %) 0.5 0.5 Nucleated RBC % (0 - 0 %) 0.0 0.0 Nucleated RBCs # (Man) (0.0 - 0.1 x10 3/uL) 0.0 0 0.00 Recent Impressions: RADIOLOGY - XR CHEST 1 V 08/24 0551 Report Impression - Status: SIGNED Entered: 08/24/2022 9539 IMPRESSION: 1. Bhmx-ai-oxmpetfpis enlarged cardiac silhouett e. 2. Mild interstitial pulmonary edema versus infi ltrates. Impression By: [email or web address] - Oracio S. Herbie , M.D. Medication(s) Ordered: Anti-Infective Agents Sig/Cory Start time Last Medication Dose Route Stop Time Status Admin Cefazolin Sodium 2 GM Q8H 08/17 1000 AC 08/25 IV 08/26 0959 1021 Blood Formation,Coagulation Sig/Cory Start time Last Medication Dose Route Stop Time Status Admin Clopidogrel Bisulfate 75 MG DAILY 08/16 899 AC 08/25 PO 09/15 0859 0829 Cardiovascular Drugs Sig/Cory Start time Last Medication Dose Route Stop Time Status Admin Amiodarone HCl 200 MG DAILY 08/16 899 AC 08/25 PO 09/15 0859 0829 Atorvastatin Calcium 40 MG 08/15 AC 0 08/24 PO 09/14 205 2113 Metoprolol Tartrate 12.5 MG BID 08/15 2100 AC 0 08/25 PO 09/14 2058 0829 Central Nervous System Agents Sig/Cory Start time Last Medication Dose Route Stop Time Status Admin Tramadol HCl 25 MG Q6H PRN 08/20 2315 AC 08/25 PO 08/25 2314 0607 Acetaminophen 650 MG Q4H PRN PRN 08/16 1330 AC 08/25 PO 09/15 1329 0829 Acetaminophen 650 MG Q4H PRN PRN 08/16 1330 AC RECTAL 09/15 1329 Magnesium Sulfate 100 ML ASDIR PRN 08/16 1330 A C IV 09/15 1329 Magnesium Sulfate 50 ML ASDIR PRN 08/16 1330 AC 08/24 IV 09/15 1329 2114 Magnesium Sulfate/ 100 ML ASDIR PRN 08/16 1330 AC Dextrose IV 09/15 1329 Aspirin 81 MG DAILY 08/16 09 AC 08/25 PO 09/15 0859 0829 Electrolytic, Caloric, And Pearl Sig/Cory Start time Last Medication Dose Route Stop Time Status Admin Sodium Chloride 10 ML BID 08/18 2100 AC 08/25 IV 09/17 205 0830 Sodium Chloride 10 ML ASDIR PRN 08/18 0945 AC IV 09/17 0944 Sodium Chloride 20 ML ASDIR 08/17 1000 AC 08/25 IV 09/16 0959 0244 Dextrose/Water 125 ML ASDIR PRN 08/16 1330 CKD IV 09/15 1329 Dextrose/Water 250 ML ASDIR PRN 08/16 1330 CKD IV 09/15 1329 Eye, Ear, Nose And Throat (Een Sig/Cory Start time Last Medication Dose Route Stop Time Status Admin Carboxymethylcellul- 1 DROP QID 08/17 1300 AC 0 08/25 ose Sodium EACH EYE 09/16 1259 0830 Gastrointestinal Drugs Sig/Cory Start time Last Medication Dose Route Stop Time Status Admin Polyethylene Glycol 17 GM DAILY 08/17 0900 AC 0 / PO 09/16 0859 1013 Docusate Sodium 100 MG BID 08/16 2100 AC 08/25 PO 09/15 2058 08 Sennosides 17.2 MG BEDTIME 08/16 2100 AC 08/24 PO 09/15 2058 211 Ondansetron HCl 4 MG Q6H PRN PRN 08/16 1330 AC IV 09/15 1329 Pantoprazole 40 MG DAILY PRN 08/15 2000 AC 5 PO 09/14 1958 0829 Hormones And Synthetic Substit Sig/Cory Start time Last Medication Dose Route Stop Time Status Admin Glucagon 1 MG ASDIR PRN 08/16 1330 AC IM 09/15 1329 Prednisone 1 MG TID 08/15 2100 AC 08/25 PO 09/14 2058 08 Recent Impressions: RADIOLOGY - XR CHEST 1 V 08/24 0651 Report Impression - Status: SIGNED Entered: 08/24/2022 0734 IMPRESSION: 1. Zhec-od-xcpcgfrljm enlarged cardiac silhouett e. 2. Mild interstitial pulmonary edema versus infi ltrates. Impression By: [email or web address] - Oracio Stoner M.D. Portions of this section levi álvarez scribed by Ro Yost on 08/25/22 at 1319 Treatment Prophylaxis Treatment Prophylaxis Lines: PICC (08/20) Portions of this section levi álvarez scribed by Ro Yost on 08/25/22 at 1319 Diagnosis, Assessment Plan Free Text A P: 1-Sternal wound infection wi th MSSA status post debridement postoperative day #2 2-Coronary disease status post CABG 3-History of temporal arteritis 4-History of diverticulitis Recommendations Continue cefazolin at 2 g IV every 8 We will order PICC line placement and home IV an tibiotics via the infusion center followed by oral Keflex until com plete resolution of signs and symptoms of infection followed by a few months of suppres sive therapy as well 08/19 Awaiting PICC line placement Home IV antibiotics have been ordered and pendin g insurance approval 08/20 Home IV antibiotics have been approved by [facility] Plan cefazolin for 6 weeks PICC line is pending Wound VAC is pending for home Likely discharge is Tuesday08/23/22 cont on cefazolin for 6 week til 09/27/22 PICC line placed 08/20 f/u esr and crp wound vac in place 08/24/22: PENDING TO ARRANGE ABX AT HOME. CONT CEF AZOLIN TILL 09/27/22 08/25/22: on Cefazolin til 09/27/22 nurse case management to arrange Iv abx thru [facility] and IP H home health; wound vac to arranged Portions of this section wer e scribed by Ro Yost on 08/25/22 at 1319 at 0847 RPT #:[id number] END OF REPORT 2022-08-25 06:59:00-00:00 [facility]) Cardiology Progress Note REPORT#:[id number] REPORT STATUS: Signed DATE:08/25/22 TIME: 658 PATIENT: MARY DALY UNIT #: [id number] ROOM/BED: [place] [address] : 53 AGE: 66 SEX: M ATTEND: Siri Mccurdy MD ADM AUTHOR: Denton Chaparro MD * ALL edits or amendments must be made on the [employer]/computer document * Subjective Chief complaint: Pain at incisional site Objective General VS/I O: 24 hour I O ending at 0700: 08/25 0700 08/24 1900 Intake Total 250 600 Output Total 600 640 Balance -350 -40 Intake, Oral 250 600 Output, 40 Drainage Output, Urine 600 600 Patient 80.2 kg Weight Weight Standing scale Measurement Method Vital Signs: Date Time Temp Pulse Resp B/P B/P Pulse O2 O2 F low FiO2 Mean Ox Delivery Rate 08/25 0350 98.4 57 16 144/75 0.0 96 / 0300 63 13 144/75 104 94 / 0200 57 14 130/75 97 92 07/05 0101 65 16 160/82 115 95 07/05 0009 98.4 59 16 134/73 0.0 97 07/05 0000 60 14 134/73 97 93 07/04 2300 62 14 150/71 102 97 07/ 2200 63 16 145/74 103 93 07/04 5 65 26 162/77 111 97 07/04 1922 98.1 66 17 147/75 0.0 96 07/ 1921 66 22 147/75 105 96 07/04 1603 97.9 68 16 128/70 89 97 07/04 1125 98.2 68 16 136/69 91 96 07/04 0736 97.9 69 20 135/72 0.0 93 Room air 07/ 0732 95 Room air PATIENT WEIGHT: Weight (lb): 176 Weight (oz): 12.97 Weight (kg): 80.200 Medications: Active Meds + DC'd Last 24 Hrs Tramadol HCl (ULTRAM) 25 MG Q6H PRN PO Sodium Chloride (SODIUM CHLORIDE) 10 ML BID IV Sodium Chloride (SODIUM CHLORIDE) 10 ML ASDIR SD N IV Carboxymethylcellulose Sodium (REFRESH TEARS) 1 DROP QID EACH EYE Cefazolin Sodium (KEFZOL OR ANCEF) 2 GM Q8H IV Sodium Chloride (SODIUM CHLORIDE) 20 ML ASDIR IV Polyethylene Glycol (MIRALAX) 17 GM DAILY PO Docusate Sodium (COLACE) 100 MG BID PO Sennosides (Senna Lax 8.6 MG TABLET) 17.2 MG BED TIME PO Acetaminophen (TYLENOL) 650 MG Q4H PRN PRN PO Acetaminophen (TYLENOL) 650 MG Q4H PRN PRN RECTA L Dextrose/Water (DEXTROSE 10% IN WATER) 125 ML DIR PRN IV (CKD) Dextrose/Water (DEXTROSE 10% IN WATER) 250 ML DIR PRN IV (CKD) Glucagon (GLUCAGON) 1 MG ASDIR PRN IM Magnesium Sulfate (MAGNESIUM SULFATE 4GM/SWFI 10 0ML) 100 ML ASDIR PRN IV Magnesium Sulfate (MAGNESIUM SULFATE 2GM/SWFI 50 ML) 50 ML ASDIR PRN IV Magnesium Sulfate/Dextrose (MAGNESIUM SULFATE 1G M/D5W 100ML) 100 ML ASDIR PRN IV Ondansetron HCl (ZOFRAN) 4 MG Q6H PRN PRN IV Amiodarone HCl (CORDARONE) 200 MG DAILY PO Aspirin (ASPIRIN) 81 MG DAILY PO Clopidogrel Bisulfate (Plavix) 75 MG DAILY PO Atorvastatin Calcium (LIPITOR) 40 MG 2100 PO Metoprolol Tartrate (LOPRESSOR) 12.5 MG BID PO Prednisone (predniSONE) 1 MG TID PO Pantoprazole (PROTONIX) 40 MG DAILY PRN PO Physical Exam General appearance: alert, awake Neck: full range of motion, non-tender, normal thyroid, supple/no meningismus, no bruit/NL carotids, no JVD, no lymphadenopathy , no masses or swelling Cardiovascular: CV assessment: regular rate and rhythm Respiratory: decreased breath sounds, no distres s Abdomen: non-tender, normal bowel sounds , no distention, no guarding, no mass/ organomegaly, no pulsatile mass, no rebound Upper extremity: UE assessment: normal capillary refill, no rafat a Lower extremity: LE assessment: normal capillary refill, no rafat a Results Findings/Data: Laboratory Tests 08/25 426 Chemistry Sodium (134 - 147 mEq/L) 137 Potassium (3.4 - 5.0 mEq/L) 4.1 Chloride (100 - 108 mEq/L) 105 Carbon Dioxide (21 - 33 mEq/l) 27 Anion Gap (0 - 20) 9 BUN (7 - 18 mg/dL) 11 Creatinine (0.6 - 1.3 mg/dL) 0.8 Glomerular Filtr Rate (80 - 90) 96.4 H Glucose (70 - 110 mg/dL) 83 Calcium (8.0 - 10.5 mg/dL) 8.6 Magnesium (1.80 - 2.40 mg/dL) 2.23 Laboratory Tests 08/25 426 Hematology WBC (4.5 - 11.0 x10 3/uL) 9.2 RBC (4.00 - 5.60 x10 6/uL) 3.27 L Hgb (12.5 - 16.9 g/dL) 9.5 L Hct (37.5 - 50.7 %) 29.7 L MCV (81.0 - 99.0 fL) 90.8 MCH (27.0 - 33.0 pg) 29.1 MCHC (33.0 - 37.0 g/dL) 32.0 L RDW (11.5 - 14.5 %) 14.7 H Plt Count (150 - 400 x10 3/uL) 468 H MPV (7.0 - 9.0 fL) 10.0 H Neut % (Auto) (56.0 - 77.0 %) 59.0 Lymph % (Auto) (14.0 - 32.0 %) 24.6 Stephenson % (Auto) (4.8 - 9.0 %) 11.8 H Eos % (Auto) (0.3 - 3.7 %) 3.4 Baso % (Auto) (0.0 - 2.0 %) 0.7 Neut # (Auto) (2.0 - 7.6 x10 3/uL) 5.40 Lymph # (Auto) (1.0 - 3.8 x10 3/uL) 2.25 Stephenson # (Auto) (0.1 - 0.8 x10 3/uL) 1.08 H Eos # (Auto) (0.0 - 0.2 x10 3/uL) 0.31 H Baso # (Auto) (0.0 - 0.2 x10 3/uL) 0.06 Abs Immat Gran (auto) (0.00 - 0.03 x10 3/uL) 0. 05 H Add Manual Diff NO Immature Gran % (0.0 - 2.0 %) 0.5 Nucleated RBC % (0 - 0 %) 0.0 Nucleated RBCs # (Man) (0.0 - 0.1 x10 3/uL) 0.0 0 Laboratory Tests 08/25 0427 Chemistry Magnesium (1.80 - 2.40 mg/dL) 2.23 Diagnosis, Assessment Plan Free Text DxA P Notes Free Text DxA P Notes: 1. Coronary artery disease Status post coronary artery bypass graft surger y on 08/02/2022 2. Sternal wound drainage S/P wound surgery/debridement 3. Hypertension 4. Hyperlipidemia Electronically Signed by Denton Chaparro MD on at 0700 RPT #:[id number] END OF REPORT 2022-08-25 05:20:00-00:00 [facility] Cardiothoracic Surgery Prog REPORT#:[id number] REPORT STATUS: Signed DATE:08/25/22 TIME: 0520 PATIENT: MARY DALY UNIT #: [id number] ROOM/BED: [place] [address] : 53 AGE: 66 SEX: M ATTEND: Siri Mccurdy MD ADM AUTHOR: Rosalind Mendez Physic * ALL edits or amendments must be made on the [employer]/computer document * General Post-op: day 9 Status post: 1. Debridement of the sternal wound. 2. Placement of wound VAC. Review of Systems Constitutional: Denies: chills, fatigue, generalized weakness. Skin: Denies: abrasion, bruising, ecchymosis. Allergy/Immun: Denies: allergic reaction, hives, rhinorrhea. Eyes: Denies: redness, visual loss/blurred, eye pain. Respiratory: Denies: PETERSEN (dyspnea on exertion), pleuritic javier n, productive cough (sputum). Cardiovascular: Denies: chest pain, palpitations. GI: Denies: abdominal pain, nausea, vomiting. : Denies: dysuria, flank pain. Musculoskeletal: Denies: arthritis, joint pain, neck pain. Heme: Denies: adenopathy, bleeding, petechiae. Endocrine: Denies: cold intolerance, heat intolerance, poly uria. Neuro: Denies: bladder dysfunction, seizure, syncope. Psych: Denies: anxiety, insomnia. All systems rev neg: except as marked Objective General VS/I O Last Documented: Result Date Time Pulse Ox 96 08/25 0350 B/P 144/75 08/25 0350 B/P Mean 0.0 08/25 0350 Temp 98.4 08/25 0350 Pulse 57 08/25 0350 Resp 16 08/25 0350 O2 Delivery Room air 08/24 0736 FiO2 21 08/23 2025 O2 Flow Rate 2 08/16 1400 24 hour I O ending at 0700: 08/25 0700 08/24 1900 Intake Total 250 600 Output Total 200 640 Balance 50 -40 Intake, Oral 250 600 Output, 40 Drainage Output, Urine 200 600 PATIENT WEIGHT: Weight (lb): 177 Weight (oz): 4.03 Weight (kg): 80.400 Physical Exam General appearance: alert, awake, oriented Wound/incision: Location: sternum Site condition: wound vac in place HEENT: anicteric, mucosal membranes moist, pupil s reactive to light Neck: full range of motion, non-tender Cardiovascular: normal heart sounds, regular rat e rhythm, wound vac in place to sternum Respiratory: aerating well, symmetric expansion, no distress Abdomen: soft, non-tender Genitourinary: urine Extremities: dry, moves all Musculoskeletal: full range of motion, painless range of motion Skin: dry, intact Psychiatry: normal affect, normal mood Diagnosis, Assessment Plan Free Text A P: This is a 58-year-old gentleman with past medica l history of coronary artery disease status post coronary artery bypass graft CABG x 4 (MITCHELL-LAD, SVG-OM1, SVG-OM2, SVG-PDA)on 08/02/[address] Mccurdy. He has a history of temporal arteritis on chronic prednisone, diverticulitis, gout, hypertension, hyperlipidemia. His postop course, he did very well. Working wit h physical therapy. He was mobile, walking with PT OT. His wounds were vicenta n and dry. There was no drainage upon discharge. He was discharged on po stop day 7. He was discharged on 08/09/2022. He repor ts about 2 or 3 days ago he started to notice increased drainage in his distal sternal wound. He also reports having chills at night. The patient admits to not check ing his temperature. The patient denies any nause a or vomiting, denies any shortness of breath, does complain of right-sided chest wall pain. Patient is admitted for observation for sternal wound drainage Assessment/plan 1. Coronary artery disease Status post coronary artery bypass graft surger y on 08/02/2022 2. Sternal wound drainage Obtain CT noncontrast chest 3. Hypertension 4. Hyperlipidemia Patient will be admitted for investigation of st ernal wound drainage. Will obtain CT noncontrast of the chest. DVT studies of the lower extremities We will start IV antibiotics, routine labs. Further recommendations to follow 08/17/22 POD 1 08/18/22 Continue abx as per ID Wound care team to change wound vac Labs reviewed Transfer to CVN 1 08/19/22 Patient in stable condition, no complaints, afeb rile Reviewed labs Wound vac changed per wound care team On room air Antibiotics per ID, PICC line ordered for home a ntibiotics Discharge home soon 08/20/22 Patient doing well Denies pain Breathing comfortable on room air Encourage I-S use and mobilization Awaiting PICC line and insurance approval for ho me antibiotics 08/21/22 Patient resting comfortable, on room air PICC line placed Home antibiotics arranged by nurse case management Pending home wound vac Encourage mobilization and I-S use Discharge home once abx and wound vac arranged. 08/22/22 Patient doing well Afebirle Continue antibiotics Discharge home once wound vac set up Encourage I-S use and ambulation 08/23/22 AAOx3 Patient resting comfortable, denies complaints Afebrile Labs reviewed On IV antibiotics as per ID. PICC line in place, outpatient IV antibiotics being arranged Wound VAC in place. Outpatient home health and w ound care being arranged Respiratory: On room air 99% Cardiac: Remains sinus rhythm Patient was seen and examined by Dr. Mccurdy Home once IV antibiotics and wound VAC arranged 08/24/22 AAOx3 Patient resting comfortable, denies complaints Afebrile Labs reviewed On IV antibiotics as per ID. PICC line in place, outpatient IV antibiotics being arranged Wound VAC in place. Case management working on o utpatient wound vac. Respiratory: On room air 99% Cardiac: Remains sinus rhythm Patient was seen and examine d by Dr. Mccurdy. Home once IV antibiotics and wound VAC arranged. Per nurse, awaiting insurance appr oval for wound VAC 08/25/22 AAOx3 Patient resting comfortable, denies complaints. Wants to go home Labs reviewed On IV antibiotics as per ID. PICC line in place, outpatient IV antibiotics being arranged Wound VAC in place. Case management working on o utpatient wound vac. Respiratory: On room air 99% Cardiac: Remains sinus rhythm Home once IV antibiotics and wound VAC arranged . Awaiting insurance approval for wound vac, case management following Okay to DC patient home once outpatient wound VA C and IV antibiotics in place per case management Patient was seen and examined by Dr. Mccurdy. at 1432 at 6944 RPT #:[id number] END OF REPORT 2022-08-24 11:11:00-00:00 [facility] Cardiology Progress Note REPORT#:[id number] REPORT STATUS: Signed DATE:08/24/22 TIME: 1111 PATIENT: MARY DALY #: [id number] ROOM[address]BED: [address] : [address] AGE: 66 SEX: M ATTEND: Siri Mccurdy MD ADM AUTHOR: Denton Chaparro MD * ALL edits or amendments must be made on the [employer]/computer document * Subjective Chief complaint: Pain at incisonal site Objective General VS/I O: 24 hour I O ending at 0700: 08/24 0700 07 1900 Intake Total 250 650 Output Total 300 950 Balance -50 -300 Intake, Oral 250 650 Number 2 Bowel Movements Output, Urine 300 950 Patient 80.4 kg Weight Weight Standing scale Measurement Method Vital Signs: Date Time Temp Pulse Resp B/P B/P Pulse O2 O2 F low FiO2 Mean Ox Delivery Rate 08/24 0736 97.9 69 20 135/72 0.0 93 Room air 07/04 0732 95 Room air 07/04 0419 98.2 68 13 148/74 0.0 93 Room air 07/04 0400 68 15 141/76 103 93 07/04 0342 67 14 94 07/04 0300 67 22 96 07/04 0200 70 17 144/78 103 92 07/04 0100 71 14 95 07/04 0001 66 19 153/72 103 94 07/03 2307 64 20 135/75 98 94 07/03 2307 97.9 64 13 135/75 0.0 95 Room air 07/03 2201 61 28 162/76 109 95 07/03 2108 71 21 168/78 111 95 07/03 2100 76 14 97 07/03 2025 96 Room air 21 07/03 1945 98.2 75 13 158/75 0.0 97 Room air 07/03 1919 75 46 154/75 108 91 07/03 1900 71 25 95 07/03 1654 98.1 64 20 164/85 0.0 99 Room air 07/03 1200 97.9 61 22 150/73 0.0 97 Room air PATIENT WEIGHT: Weight (lb): 177 Weight (oz): 4.03 Weight (kg): 80.400 Medications: Active Meds + DC'd Last 24 Hrs Tramadol HCl (ULTRAM) 25 MG Q6H PRN PO Sodium Chloride (SODIUM CHLORIDE) 10 ML BID IV Sodium Chloride (SODIUM CHLORIDE) 10 ML ASDIR SD N IV Carboxymethylcellulose Sodium (REFRESH TEARS) 1 DROP QID EACH EYE Cefazolin Sodium (KEFZOL OR ANCEF) 2 GM Q8H IV Sodium Chloride (SODIUM CHLORIDE) 20 ML ASDIR IV Polyethylene Glycol (MIRALAX) 17 GM DAILY PO Docusate Sodium (COLACE) 100 MG BID PO Sennosides (Senna Lax 8.6 MG TABLET) 17.2 MG BED TIME PO Acetaminophen (TYLENOL) 650 MG Q4H PRN PRN PO Acetaminophen (TYLENOL) 650 MG Q4H PRN PRN RECTA L Dextrose/Water (DEXTROSE 10% IN WATER) 125 ML DIR PRN IV (CKD) Dextrose/Water (DEXTROSE 10% IN WATER) 250 ML A SDIR PRN IV (CKD) Glucagon (GLUCAGON) 1 MG ASDIR PRN IM Magnesium Sulfate (MAGNESIUM SULFATE 4GM/SWFI 10 0ML) 100 ML ASDIR PRN IV Magnesium Sulfate (MAGNESIUM SULFATE 2GM/SWFI 50 ML) 50 ML ASDIR PRN IV Magnesium Sulfate/Dextrose (MAGNESIUM SULFATE 1G M/D5W 100ML) 100 ML ASDIR PRN IV Ondansetron HCl (ZOFRAN) 4 MG Q6H PRN PRN IV Amiodarone HCl (CORDARONE) 200 MG DAILY PO Aspirin (ASPIRIN) 81 MG DAILY PO Clopidogrel Bisulfate (Plavix) 75 MG DAILY PO Atorvastatin Calcium (LIPITOR) 40 MG 2100 PO Metoprolol Tartrate (LOPRESSOR) 12.5 MG BID PO Prednisone (predniSONE) 1 MG TID PO Pantoprazole (PROTONIX) 40 MG DAILY PRN PO Physical Exam General appearance: alert, awake Neck: full range of motion, non-tender, normal thyroid, supple/no meningismus, no bruit/NL carotids, no JVD, no lymphadenopathy , no masses or swelling Cardiovascular: CV assessment: regular rate and rhythm Respiratory: decreased breath sounds, no distres s Abdomen: non-tender, normal bowel sounds , no distention, no guarding, no mass/ organomegaly, no pulsatile mass, no rebound Upper extremity: UE assessment: normal capillary refill, no rafat a Lower extremity: LE assessment: normal capillary refill, no rafat a Results Findings/Data: Laboratory Tests 08/242 Chemistry Sodium (134 - 147 mEq/L) 138 Potassium (3.4 - 5.0 mEq/L) 4.1 Chloride (100 - 108 mEq/L) 106 Carbon Dioxide (21 - 33 mEq/l) 24 Anion Gap (0 - 20) 12 BUN (7 - 18 mg/dL) 9 Creatinine (0.6 - 1.3 mg/dL) 0.9 Glomerular Filtr Rate (80 - 90) 93.0 H Glucose (70 - 110 mg/dL) 82 Calcium (8.0 - 10.5 mg/dL) 9.0 Magnesium (1.80 - 2.40 mg/dL) 1.98 Laboratory Tests 08/24 0402 Hematology WBC (4.5 - 11.0 x10 3/uL) 9.4 RBC (4.00 - 5.60 x10 6/uL) 3.26 L Hgb (12.5 - 16.9 g/dL) 9.6 L Hct (37.5 - 50.7 %) 29.6 L MCV (81.0 - 99.0 fL) 90.8 MCH (27.0 - 33.0 pg) 29.4 MCHC (33.0 - 37.0 g/dL) 32.4 L RDW (11.5 - 14.5 %) 14.7 H Plt Count (150 - 400 x10 3/uL) 531 H MPV (7.0 - 9.0 fL) 10.1 H Neut % (Auto) (56.0 - 77.0 %) 60.3 Lymph % (Auto) (14.0 - 32.0 %) 23.2 Stephenson % (Auto) (4.8 - 9.0 %) 12.2 H Eos % (Auto) (0.3 - 3.7 %) 3.3 Baso % (Auto) (0.0 - 2.0 %) 0.5 Neut # (Auto) (2.0 - 7.6 x10 3/uL) 5.67 Lymph # (Auto) (1.0 - 3.8 x10 3/uL) 2.18 Stephenson # (Auto) (0.1 - 0.8 x10 3/uL) 1.15 H Eos # (Auto) (0.0 - 0.2 x10 3/uL) 0.31 H Baso # (Auto) (0.0 - 0.2 x10 3/uL) 0.05 Abs Immat Gran (auto) (0.00 - 0.03 x10 3/uL) 0. 05 H Add Manual Diff NO Immature Gran % (0.0 - 2.0 %) 0.5 Nucleated RBC % (0 - 0 %) 0.0 Nucleated RBCs # (Man) (0.0 - 0.1 x10 3/uL) 0.0 0 Laboratory Tests 08/24 040 Chemistry Magnesium (1.80 - 2.40 mg/dL) 1.98 Radiology data: Recent Impressions: RADIOLOGY - XR CHEST 1 V 08/24 0651 Report Impression - Status: SIGNED Entered: 08/24/2022 0734 IMPRESSION: 1. Ykhd-nq-kxoowpaufl enlarged cardiac silhouett e. 2. Mild interstitial pulmonary edema versus infi ltrates. Impression By: [email or web address] - Oracio Stoner M.D. Diagnosis, Assessment Plan Free Text DxA P Notes Free Text DxA P Notes: 1. Coronary artery disease Status post coronary artery bypass graft surger y on 08/02/2022 2. Sternal wound drainage S/P wound surgery/debridement 3. Hypertension 4. Hyperlipidemia Electronically Signed by Denton Chaparro MD on at 1112 RPT #:[id number] END OF REPORT 2022-08-24 10:03:00-00:[address] [facility] ([facility] Infectious Dis. Progress Note REPORT#:[id number] REPORT STATUS: Signed DATE:08/24/22 TIME: 1003 PATIENT: MARY DALY UNIT #: [id number] [address] : [address] AGE: 66 SEX: M ATTEND: Siri Mccurdy MD ADM AUTHOR: Dafne Granda MD * ALL edits or amendments must be made on the [employer]/computer document * Subjective HPI: This is a 58-year-old male patient with history of coronary artery disease status post CABG on the who presents to the hospital with drainage from his distal sternal wound along with chills On the he underwent debridement of the ster nal wound and wound VAC placement His cultures are growing Staph aureus. He has been started on cefazolin 2 g every 8. 08/24/22: wants to go home with home health for iv abx. Review of Systems Free Text ROS Notes Free Text ROS Notes: 14 systems reviewed and negative apart from pert inent points in the HPI Objective General VS/I O: Vital Signs Date Temp Pulse Resp B/P B/P Mean Pulse Ox FiO2 07/03-/04 97.9-98.2 61-76 13-46 128-168/69-78 0.0-111 91-97 21 Last Documented: Result Date Time Pulse Ox 97 07/04 1603 B/P 128/70 07/04 1603 B/P Mean 89 07/04 1603 Temp 97.9 07/04 1603 Pulse 68 07/04 1603 Resp 16 / 1603 O2 Delivery Room air 07/ 0736 FiO2 21 /2024 O2 Flow Rate 2 08/16 1400 Vital Signs: Date Time Temp Pulse Resp B/P B/P Pulse O2 O2 Flow FiO2 Mean Ox Delivery Rate 07/04 1603 97.9 68 16 128/70 89 97 07/04 1125 98.2 68 16 136/69 91 96 07/04 0736 97.9 69 20 135/72 0.0 93 Room air 07/04 0732 95 Room air 07/04 0419 98.2 68 13 148/74 0.0 93 Room air 07/04 0400 68 15 141/76 103 93 07/04 0342 67 14 94 07/04 0300 67 22 96 07/04 0200 70 17 144/78 103 92 07/04 0100 71 14 95 07/04 0001 66 19 153/72 103 94 07/03 2307 64 20 135/75 98 94 07/03 2307 97.9 64 13 135/75 0.0 95 Room air 07/03 2201 61 28 162/76 109 95 07/03 2108 71 21 168/78 111 95 07/03 2100 76 14 97 07/03 2025 96 Room air 21 07/03 1945 98.2 75 13 158/75 0.0 97 Room air 07/03 1919 75 46 154/75 108 91 07/03 1900 71 25 95 24 hour I O ending at 0700: 08/24 0700 / 1900 Intake Total 250 650 Output Total 300 950 Balance -50 -300 Intake, Oral 250 650 Number 2 Bowel Movements Output, Urine 300 950 Patient 80.4 kg Weight Weight Standing scale Measurement Method PATIENT WEIGHT: Weight (lb): 177 Weight (oz): 4.03 Weight (kg): 80.400 Physical Exam General appearance: alert, awake, oriented Wound/incision: Location: Sternal wound dressing intact. vac present Head/Eyes: atraumatic, clear cornea ENT: moist mucosal membranes, normal dentition Cardiovascular: normal heart sounds, no rub Respiratory: clear to auscultation, symmetric ex pansion Abdomen: non-tender, normal bowel sounds Extremities: moves all, normal capillary refill Musculoskeletal: full range of motion, normal in spection Results Findings/Data: Laboratory Tests 08/24 401 Chemistry Sodium (134 - 147 mEq/L) 138 Potassium (3.4 - 5.0 mEq/L) 4.1 Chloride (100 - 108 mEq/L) 106 Carbon Dioxide (21 - 33 mEq/l) 24 Anion Gap (0 - 20) 12 BUN (7 - 18 mg/dL) 9 Creatinine (0.6 - 1.3 mg/dL) 0.9 Glomerular Filtr Rate (80 - 90) 93.0 H Glucose (70 - 110 mg/dL) 82 Calcium (8.0 - 10.5 mg/dL) 9.0 Magnesium (1.80 - 2.40 mg/dL) 1.98 Laboratory Tests 08/24 0402 Hematology WBC (4.5 - 11.0 x10 3/uL) 9.4 RBC (4.00 - 5.60 x10 6/uL) 3.26 L Hgb (12.5 - 16.9 g/dL) 9.6 L Hct (37.5 - 50.7 %) 29.6 L MCV (81.0 - 99.0 fL) 90.8 MCH (27.0 - 33.0 pg) 29.4 MCHC (33.0 - 37.0 g/dL) 32.4 L RDW (11.5 - 14.5 %) 14.7 H Plt Count (150 - 400 x10 3/uL) 531 H MPV (7.0 - 9.0 fL) 10.1 H Neut % (Auto) (56.0 - 77.0 %) 60.3 Lymph % (Auto) (14.0 - 32.0 %) 23.2 Stephenson % (Auto) (4.8 - 9.0 %) 12.2 H Eos % (Auto) (0.3 - 3.7 %) 3.3 Baso % (Auto) (0.0 - 2.0 %) 0.5 Neut # (Auto) (2.0 - 7.6 x10 3/uL) 5.67 Lymph # (Auto) (1.0 - 3.8 x10 3/uL) 2.18 Stephenson # (Auto) (0.1 - 0.8 x10 3/uL) 1.15 H Eos # (Auto) (0.0 - 0.2 x10 3/uL) 0.31 H Baso # (Auto) (0.0 - 0.2 x10 3/uL) 0.05 Abs Immat Gran (auto) (0.00 - 0.03 x10 3/uL) 0. 05 H Add Manual Diff NO Immature Gran % (0.0 - 2.0 %) 0.5 Nucleated RBC % (0 - 0 %) 0.0 Nucleated RBCs # (Man) (0.0 - 0.1 x10 3/uL) 0.0 0 Laboratory Tests Test Result Date Time Chemistry BUN (7 - 18 mg/dL) 9 08/24 0402 Creatinine (0.6 - 1.3 mg/dL) 0.9 / 0402 Hematology WBC (4.5 - 11.0 x10 3/uL) 9.4 07/ 0402 Active Meds + DC'd Last 24 Hrs Tramadol HCl (ULTRAM) 25 MG Q6H PRN PO Sodium Chloride (SODIUM CHLORIDE) 10 ML BID IV Sodium Chloride (SODIUM CHLORIDE) 10 ML ASDIR SD N IV Carboxymethylcellulose Sodium (REFRESH TEARS) 1 DROP QID EACH EYE Cefazolin Sodium (KEFZOL OR ANCEF) 2 GM Q8H IV Sodium Chloride (SODIUM CHLORIDE) 20 ML ASDIR IV Polyethylene Glycol (MIRALAX) 17 GM DAILY PO Docusate Sodium (COLACE) 100 MG BID PO Sennosides (Senna Lax 8.6 MG TABLET) 17.2 MG BED TIME PO Acetaminophen (TYLENOL) 650 MG Q4H PRN PRN PO Acetaminophen (TYLENOL) 650 MG Q4H PRN PRN RECTA L Dextrose/Water (DEXTROSE 10% IN WATER) 125 ML DIR PRN IV (CKD) Dextrose/Water (DEXTROSE 10% IN WATER) 250 ML DIR PRN IV (CKD) Glucagon (GLUCAGON) 1 MG ASDIR PRN IM Magnesium Sulfate (MAGNESIUM SULFATE 4GM/SWFI 10 0ML) 100 ML ASDIR PRN IV Magnesium Sulfate (MAGNESIUM SULFATE 2GM/SWFI 50 ML) 50 ML ASDIR PRN IV Magnesium Sulfate/Dextrose (MAGNESIUM SULFATE 1G M/D5W 100ML) 100 ML ASDIR PRN IV Ondansetron HCl (ZOFRAN) 4 MG Q6H PRN PRN IV Amiodarone HCl (CORDARONE) 200 MG DAILY PO Aspirin (ASPIRIN) 81 MG DAILY PO Clopidogrel Bisulfate (Plavix) 75 MG DAILY PO Atorvastatin Calcium (LIPITOR) 40 MG 2100 PO Metoprolol Tartrate (LOPRESSOR) 12.5 MG BID PO Prednisone (predniSONE) 1 MG TID PO Pantoprazole (PROTONIX) 40 MG DAILY PRN PO Treatment Prophylaxis Treatment Prophylaxis Lines: PICC (08/20) Diagnosis, Assessment Plan Free Text A P: 1-Sternal wound infection wi th MSSA status post debridement postoperative day #2 2-Coronary disease status post CABG 3-History of temporal arteritis 4-History of diverticulitis Recommendations Continue cefazolin at 2 g IV every 8 We will order PICC line placement and home IV an tibiotics via the infusion center followed by oral Keflex until com plete resolution of signs and symptoms of infection followed by a few months of suppres sive therapy as well 08/19 Awaiting PICC line placement Home IV antibiotics have been ordered and pendin g insurance approval 08/20 Home IV antibiotics have been approved by [facility] infusion Plan cefazolin for 6 weeks PICC line is pending Wound VAC is pending for home Likely discharge is Tuesday08/23/22 cont on cefazolin for 6 week til 09/27/22 PICC line placed 08/20 f/u esr and crp wound vac in place 08/24/22: PENDING TO ARRANGE ABX AT HOME. CONT CEF AZOLIN TILL 09/27/22 at 1712 RPT #:[id number] END OF REPORT 2022-08-24 07:[facility]00[facility]00:00 [facility] RE[facility]#:[id number] REPORT STATUS: Signed DATE:08/24/22 TIME: 715 PATIENT: MARY DALY UNIT #: [id number] ROOM/BED: [id number] : 53 AGE: 66 SEX: M ATTEND: Siri Mccurdy MD ADM AUTHOR: Rosalind Mendez Physic * ALL edits or amendments must be made on the el [email or web address] document * General Post-op: day 8 Status post: 1. Debridement of the sternal wound. 2. Placement of wound VAC. Review of Systems Constitutional: Denies: chills, fatigue, generalized weakness. Skin: Denies: abrasion, bruising, ecchymosis. Allergy/Immun: Denies: allergic reaction, hives, rhinorrhea. Eyes: Denies: redness, visual loss/blurred, eye pain. Respiratory: Denies: PETERSEN (dyspnea on exertion), pleuritic javier n, productive cough (sputum). Cardiovascular: Denies: chest pain, palpitations. GI: Denies: abdominal pain, nausea, vomiting. : Denies: dysuria, flank pain. Musculoskeletal: Denies: arthritis, joint pain, neck pain. Heme: Denies: adenopathy, bleeding, petechiae. Endocrine: Denies: cold intolerance, heat intolerance, poly uria. Neuro: Denies: bladder dysfunction, seizure, syncope. Psych: Denies: anxiety, insomnia. All systems rev neg: except as marked Objective General VS/I O Last Documented: Result Date Time Pulse Ox 93 08/24 418 B/P 148/74 08/24 418 B/P Mean 0.0 08/24 418 O2 Delivery Room air 08/24 418 Temp 98.2 08/24 418 Pulse 68 08/24 418 Resp 13 08/24 418 FiO2 21 08/23 2024 O2 Flow Rate 2 08/16 1400 24 hour I O ending at 0700: 08/24 0700 08/23 1900 Intake Total 250 650 Output Total 300 950 Balance -50 -300 Intake, Oral 250 650 Number 2 Bowel Movements Output, Urine 300 950 Patient 80.4 kg Weight Weight Standing scale Measurement Method PATIENT WEIGHT: Weight (lb): 177 Weight (oz): 4.03 Weight (kg): 80.400 Physical Exam General appearance: alert, awake, oriented Wound/incision: Location: sternum Site condition: wound vac in place HEENT: anicteric, mucosal membranes moist, pupil s reactive to light Neck: full range of motion, non-tender Cardiovascular: normal heart sounds, regular rat e rhythm, wound vac in place to sternum Respiratory: aerating well, symmetric expansion, no distress Abdomen: soft, non-tender Genitourinary: urine Extremities: dry, moves all Musculoskeletal: full range of motion, painless range of motion Skin: dry, intact Psychiatry: normal affect, normal mood Diagnosis, Assessment Plan Free Text A P: This is a 58-year-old gentleman with past medica l history of coronary artery disease status post coronary artery bypass graft CABG x 4 (MITCHELL-LAD, SVG-OM1, SVG-OM2, SVG-PDA)on 08/02/[address] Mccurdy. He has a history of temporal arteritis on chronic prednisone, diverticulitis, gout, hypertension, hyperlipidemia. His postop course, he did very well. Working wit h physical therapy. He was mobile, walking with PT OT. His wounds were vicenta n and dry. There was no drainage upon discharge. He was discharged on po stop day 7. He was discharged on 08/09/2022. He repor ts about 2 or 3 days ago he started to notice increased drainage in his distal sternal wound. He also reports having chills at night. The patient admits to not check ing his temperature. The patient denies any nause a or vomiting, denies any shortness of breath, does complain of right-sided chest wall pain. Patient is admitted for observation for sternal wound drainage Assessment/plan 1. Coronary artery disease Status post coronary artery bypass graft surger y on 08/02/2022 2. Sternal wound drainage Obtain CT noncontrast chest 3. Hypertension 4. Hyperlipidemia Patient will be admitted for investigation of st ernal wound drainage. Will obtain CT noncontrast of the chest. DVT studies of the lower extremities We will start IV antibiotics, routine labs. Further recommendations to follow 08/17/22 POD 1 08/18/22 Continue abx as per ID Wound care team to change wound vac Labs reviewed Transfer to CVN 1 08/19/22 Patient in stable condition, no complaints, afeb rile Reviewed labs Wound vac changed per wound care team On room air Antibiotics per ID, PICC line ordered for home a ntibiotics Discharge home soon 08/20/22 Patient doing well Denies pain Breathing comfortable on room air Encourage I-S use and mobilization Awaiting PICC line and insurance approval for ho me antibiotics 08/21/22 Patient resting comfortable, on room air PICC line placed Home antibiotics arranged by nurse case management Pending home wound vac Encourage mobilization and I-S use Discharge home once abx and wound vac arranged. 08/22/22 Patient doing well Afebirle Continue antibiotics Discharge home once wound vac set up Encourage I-S use and ambulation 08/23/22 AAOx3 Patient resting comfortable, denies complaints Afebrile Labs reviewed On IV antibiotics as per ID. PICC line in place, outpatient IV antibiotics being arranged Wound VAC in place. Outpatient home health and w ound care being arranged Respiratory: On room air 99% Cardiac: Remains sinus rhythm Patient was seen and examined by Dr. Mccurdy Home once IV antibiotics and wound VAC arranged 08/24/22 AAOx3 Patient resting comfortable, denies complaints Afebrile Labs reviewed On IV antibiotics as per ID. PICC line in place, outpatient IV antibiotics being arranged Wound VAC in place. Case management working on o utpatient wound vac. Respiratory: On room air 99% Cardiac: Remains sinus rhythm Patient was seen and examine d by Dr. Mccurdy. Home once IV antibiotics and wound VAC arranged. Per nurse, awaiting insurance appr oval for wound VAC at 1138 at 1837 RPT #:[id number] END OF REPORT 2022-08-23 20:01:00-00:[address] [facility] ([facility]) Infectious Dis. Progress Note REPORT#:[id number] REPORT STATUS: Signed DATE:08/23/22 TIME: 2000 PATIENT: MARY DALY UNIT #: [id number] RO[address] : [address] AGE: 66 SEX: M ATTEND: Siri Mccurdy MD ADM AUTHOR: Dafne Granda MD * ALL edits or amendments must be made on the [employer]/computer document * Subjective HPI: This is a 58-year-old male patient with history of coronary artery disease status post CABG on the who presents to the hospital with drainage from his distal sternal wound along with chills On the he underwent debridement of the ster nal wound and wound VAC placement His cultures are growing Staph aureus. He has been started on cefazolin 2 g every 8. Patient reports: No: cough, diarrhea, fever, headache, nausea, sh ortness of breath. Portions of this section levi álvarez scribed by Ro Yost on 08/23/22 at 2004 Review of Systems Free Text ROS Notes Free Text ROS Notes: 14 systems reviewed and negative apart from pert inent points in the HPI Portions of this section levi álvarez scribed by Ro Yost on 08/23/22 at 2005 Objective General VS/I O: Vital Signs Date Temp Pulse Resp B/P B/P Mean Pulse Ox FiO 2 08/22-08/23 97.9-98.2 61-76 13-24 117-164/70-85 0.0-104 92-99 21 Last Documented: Result Date Time Pulse Ox 97 08/23 1944 B/P 158/75 /1944 B/P Mean 0.0 08/23 1944 O2 Delivery Room air 08/23 1944 Temp 98.2 08/23 1944 Pulse 75 /1944 Resp 13 08/23 1944 FiO2 21 08/22 2037 O2 Flow Rate 2 08/16 1400 Vital Signs: Date Time Temp Pulse Resp B/P B/P Pulse O2 O2 F low FiO2 Mean Ox Delivery Rate 08/23 1944 98.2 75 13 158/75 0.0 97 Room air 07/03 1654 98.1 64 20 164/85 0.0 99 Room air 07/03 1200 97.9 61 22 150/73 0.0 97 Room air 07/03 0840 98.1 76 20 117/70 0.0 96 Room air 07/03 0756 97 Room air 07/03 0250 97.9 67 22 148/76 99.9 92 Room air 08/23 0000 62 08/23 0000 23 149/78 104 94 08/22 2319 98.1 63 22 142/82 102.3 93 Room air 08/228 97 Room air 21 08/22 2016 67 08/22 2016 24 150/79 104 95 24 hour I O ending at 0700: 08/23 0700 08/22 1900 Intake Total 3050 Output Total 200 1150 Balance -200 1900 Intake, Oral 3050 Number 2 Bowel Movements Number Voids 4 3 Output, 50 Drainage Output, Urine 200 1100 PATIENT WEIGHT: Weight (lb): 175 Weight (oz): 4.28 Weight (kg): 79.500 Physical Exam General appearance: alert, awake, oriented Wound/incision: Location: Sternal wound dressing intact. vac present Head/Eyes: atraumatic, clear cornea ENT: moist mucosal membranes, normal dentition Cardiovascular: normal heart sounds, no rub Respiratory: clear to auscultation, symmetric ex pansion Abdomen: non-tender, normal bowel sounds Extremities: moves all, normal capillary refill Musculoskeletal: full range of motion, normal in spection Results Findings/Data: Laboratory Tests 08/23 526 Chemistry Sodium (134 - 147 mEq/L) 137 Potassium (3.4 - 5.0 mEq/L) 4.0 Chloride (100 - 108 mEq/L) 106 Carbon Dioxide (21 - 33 mEq/l) 27 Anion Gap (0 - 20) 8 BUN (7 - 18 mg/dL) 10 Creatinine (0.6 - 1.3 mg/dL) 0.8 Glomerular Filtr Rate (80 - 90) 96.4 H Glucose (70 - 110 mg/dL) 93 Calcium (8.0 - 10.5 mg/dL) 8.7 Magnesium (1.80 - 2.40 mg/dL) 1.93 Laboratory Tests 08/23 526 Hematology WBC (4.5 - 11.0 x10 3/uL) 10.6 RBC (4.00 - 5.60 x10 6/uL) 3.26 L Hgb (12.5 - 16.9 g/dL) 9.6 L Hct (37.5 - 50.7 %) 29.4 L MCV (81.0 - 99.0 fL) 90.2 MCH (27.0 - 33.0 pg) 29.4 MCHC (33.0 - 37.0 g/dL) 32.7 L RDW (11.5 - 14.5 %) 14.7 H Plt Count (150 - 400 x10 3/uL) 568 H MPV (7.0 - 9.0 fL) 9.7 H Neut % (Auto) (56.0 - 77.0 %) 64.2 Lymph % (Auto) (14.0 - 32.0 %) 21.3 Stephenson % (Auto) (4.8 - 9.0 %) 11.0 H Eos % (Auto) (0.3 - 3.7 %) 2.4 Baso % (Auto) (0.0 - 2.0 %) 0.5 Neut # (Auto) (2.0 - 7.6 x10 3/uL) 6.83 Lymph # (Auto) (1.0 - 3.8 x10 3/uL) 2.26 Stephenson # (Auto) (0.1 - 0.8 x10 3/uL) 1.17 H Eos # (Auto) (0.0 - 0.2 x10 3/uL) 0.26 H Baso # (Auto) (0.0 - 0.2 x10 3/uL) 0.05 Abs Immat Gran (auto) (0.00 - 0.03 x10 3/uL) 0 .06 H Add Manual Diff NO Immature Gran % (0.0 - 2.0 %) 0.6 Nucleated RBC % (0 - 0 %) 0.0 Nucleated RBCs # (Man) (0.0 - 0.1 x10 3/uL) 0.0 0 Laboratory Tests: 08/23 08/22 0527 0256 Chemistry Sodium (134 - 147 mEq/L) 137 139 Potassium (3.4 - 5.0 mEq/L) 4.0 4.2 Chloride (100 - 108 mEq/L) 106 106 Carbon Dioxide (21 - 33 mEq/l) 27 24 Anion Gap (0 - 20) 8 13 BUN (7 - 18 mg/dL) 10 7 Creatinine (0.6 - 1.3 mg/dL) 0.8 0.8 Glomerular Filtr Rate (80 - 90) 96.4 H 96.4 H Glucose (70 - 110 mg/dL) 93 97 Calcium (8.0 - 10.5 mg/dL) 8.7 9.1 Magnesium (1.80 - 2.40 mg/dL) 1.93 1.98 Hematology WBC (4.5 - 11.0 x10 3/uL) 10.6 12.7 H RBC (4.00 - 5.60 x10 6/uL) 3.26 L 3.33 L Hgb (12.5 - 16.9 g/dL) 9.6 L 9.6 L Hct (37.5 - 50.7 %) 29.4 L 30.4 L MCV (81.0 - 99.0 fL) 90.2 91.3 MCH (27.0 - 33.0 pg) 29.4 28.8 MCHC (33.0 - 37.0 g/dL) 32.7 L 31.6 L RDW (11.5 - 14.5 %) 14.7 H 14.9 H Plt Count (150 - 400 x10 3/uL) 568 H 653 H MPV (7.0 - 9.0 fL) 9.7 H 9.9 H Neut % (Auto) (56.0 - 77.0 %) 64.2 68.8 Lymph % (Auto) (14.0 - 32.0 %) 21.3 18.1 Stephenson % (Auto) (4.8 - 9.0 %) 11.0 H 9.7 H Eos % (Auto) (0.3 - 3.7 %) 2.4 2.4 Baso % (Auto) (0.0 - 2.0 %) 0.5 0.3 Neut # (Auto) (2.0 - 7.6 x10 3/uL) 6.83 8.74 H Lymph # (Auto) (1.0 - 3.8 x10 3/uL) 2.26 2.30 Stephenson # (Auto) (0.1 - 0.8 x10 3/uL) 1.17 H 1.23 H Eos # (Auto) (0.0 - 0.2 x10 3/uL) 0.26 H 0.31 H Baso # (Auto) (0.0 - 0.2 x10 3/uL) 0.05 0.04 Abs Immat Gran (auto) (0.00 - 0.03 x10 3/uL) 0. 06 H 0.09 H Add Manual Diff NO NO Immature Gran % (0.0 - 2.0 %) 0.6 0.7 Nucleated RBC % (0 - 0 %) 0.0 0.0 Nucleated RBCs # (Man) (0.0 - 0.1 x10 3/uL) 0.0 0 0.00 Recent Impressions: RADIOLOGY - XR CHEST 1 V 08/22 802 Report Impression - Status: SIGNED Entered: 08/22/2022820 IMPRESSION: Grossly stable exam. Impression By: Lewis - Allan Diana M.D. Medication(s) Ordered: Anti-Infective Agents Sig/Cory Start time Last Medication Dose Route Stop Time Status Admin Cefazolin Sodium 2 GM Q8H 08/17 1000 AC 08/23 IV 08/26 0959 1652 Blood Formation,Coagulation Sig/Cory Start time Last Medication Dose Route Stop Time Status Admin Clopidogrel Bisulfate 75 MG DAILY 08/16 09 AC 08/23 PO 09/15 0859 0923 Cardiovascular Drugs Sig/Cory Start time Last Medication Dose Route Stop Time Status Admin Amiodarone HCl 200 MG DAILY 08/16 09 AC 08/23 PO 09/15 0859 0923 Atorvastatin Calcium 40 MG 08/15 2100 AC 0 / PO 09/14 Metoprolol Tartrate 12.5 MG BID 08/15 2100 AC 0 08/23 PO 09/14 2058 0924 Central Nervous System Agents Sig/Cory Start time Last Medication Dose Route Stop Time Status Admin Tramadol HCl 25 MG Q6H PRN 08/20 2315 AC 08/23 PO 08/25 2314 1655 Acetaminophen 650 MG Q4H PRN PRN 08/16 1330 AC 08/22 PO 09/15 1329 1553 Acetaminophen 650 MG Q4H PRN PRN 08/16 1330 AC RECTAL 09/15 1329 Magnesium Sulfate 100 ML ASDIR PRN 08/16 1330 A C IV 09/15 1329 Magnesium Sulfate 50 ML ASDIR PRN 08/16 1330 AC 08/23 IV 09/15 1329 0923 Magnesium Sulfate/ 100 ML ASDIR PRN 08/16 1330 AC Dextrose IV 09/15 1329 Aspirin 81 MG DAILY 08/16 0900 AC 08/23 PO 09/15 0859 0923 Electrolytic, Caloric, And Pearl Sig/Cory Start time Last Medication Dose Route Stop Time Status Admin Sodium Chloride 10 ML BID 08/18 2100 AC 08/23 IV 09/17 205 0925 Sodium Chloride 10 ML ASDIR PRN 08/18 0945 AC IV 09/17 0944 Sodium Chloride 20 ML ASDIR 08/17 1000 AC 08/23 IV 09/16 0959 1653 Dextrose/Water 125 ML ASDIR PRN 08/16 1330 CKD IV 09/15 1329 Dextrose/Water 250 ML ASDIR PRN 08/16 1330 CKD IV 09/15 1329 Eye, Ear, Nose And Throat (Een Sig/Cory Start time Last Medication Dose Route Stop Time Status Admin Carboxymethylcellul- 1 DROP QID 08/17 1300 AC 08/23 ose Sodium EACH EYE 09/16 1259 1652 Gastrointestinal Drugs Sig/Cory Start time Last Medication Dose Route Stop Time Status Admin Polyethylene Glycol 17 GM DAILY 08/17 0900 AC 0 08/22 PO 09/16 0859 1013 Docusate Sodium 100 MG BID 08/16 2100 AC 08/23 PO 09/15 2058 0924 Sennosides 17.2 MG BEDTIME 08/16 2100 AC 08/22 PO 09/15 Ondansetron HCl 4 MG Q6H PRN PRN 08/16 1330 AC IV 09/15 1329 Pantoprazole 40 MG DAILY PRN 08/15 2000 AC 2 PO 09/14 1958 1014 Hormones And Synthetic Substit Sig/Cory Start time Last Medication Dose Route Stop Time Status Admin Glucagon 1 MG ASDIR PRN 08/16 1330 AC IM 09/15 1329 Prednisone 1 MG TID 08/15 2100 AC 08/23 PO 09/14 2058 1318 Pharmaceutical Aids Sig/Cory Start time Last Medication Dose Route Stop Time Status Admin Sterile Water 10 ML .STK-MED ONE 08/23 0254 DC 08/23 IV 0302 Recent Impressions: RADIOLOGY - XR CHEST 1 V 08/21 0815 Report Impression - Status: SIGNED Entered: 08/21/2022 0835 IMPRESSION: No acute cardiopulmonary findings. Impression By: Dorina Mccarthy RADIOLOGY - XR CHEST 1 V 08/22 0803 Report Impression - Status: SIGNED Entered: 08/22/2022 0821 IMPRESSION: Grossly stable exam. Impression By: GeronimoSWSerina - Allan Diana M.D. Portions of this section wer e scribed by Ro Yost on 08/23/22 at 2005 Treatment Prophylaxis Treatment Prophylaxis Lines: PICC (08/20) CVC/PICC documentation: The data below has been imported from nursing do cumentation. Any exceptions have been noted below under Provider comments. CVC/PICC insertion date/time : PICC single lumen Brachial vein Right Inserted 1200 Provider comments on imported nursing data: [] Portions of this section levi álvarez scribed by Ro Yost on 08/23/22 at 2004 Diagnosis, Assessment Plan Free Text A P: 1-Sternal wound infection wi th MSSA status post debridement postoperative day #2 2-Coronary disease status post CABG 3-History of temporal arteritis 4-History of diverticulitis Recommendations Continue cefazolin at 2 g IV every 8 We will order PICC line placement and home IV an tibiotics via the infusion center followed by oral Keflex until com plete resolution of signs and symptoms of infection followed by a few months of suppres sive therapy as well 08/19 Awaiting PICC line placement Home IV antibiotics have been ordered and pendin g insurance approval 08/20 Home IV antibiotics have been approved by [facility] infusion Plan cefazolin for 6 weeks PICC line is pending Wound VAC is pending for home Likely discharge is Tuesday08/23/22 cont on cefazolin for 6 week til 09/27/22 PICC line placed 08/20 f/u esr and crp wound vac in place Portions of this section levi álvarez scribed by Ro Yost on 08/23/22 at 2004 at 0818 RPT #:[id number] END OF REPORT 2022-08-23 07:11:00-00:00 [facility] ([facility]) Cardiology Progress Note REPORT#:[id number] REPORT STATUS: Signed DATE:08/23/22 TIME: 710 PATIENT: MARY DALY UNIT #: [id number] ROOM/BED: [facility] [place]1 : 53 AGE: 66 SEX: M ATTEND: Siri Mccurdy MD ADM AUTHOR: Denton Chaparro MD * ALL edits or amendments must be made on the [employer]/computer document * Subjective Chief complaint: Pain at incisoonal site Objective General VS/I O: 24 hour I O ending at 0700: 08/23 0700 08/22 1900 Intake Total 3050 Output Total 200 1150 Balance -200 1900 Intake, Oral 3050 Number 2 Bowel Movements Number Voids 4 3 Output, 50 Drainage Output, Urine 200 1100 Vital Signs: Date Time Temp Pulse Resp B/P B/P Pulse O2 O2 F low FiO2 Mean Ox Delivery Rate 08/23 0250 97.9 67 22 148/76 99.9 92 Room air 08/23 0000 62 08/23 0000 23 149/78 104 94 08/22 2319 98.1 63 22 142/82 102.3 93 Room air 08/22 2038 97 Room air 21 08/22 2016 67 08/22 2017 24 150/79 104 95 / 1917 97.9 76 22 135/79 97.3 94 Room air 08/22 1657 98.4 89 16 156/81 105.8 98 Room air 08/22 1147 98.2 65 20 148/80 102.7 98 Room air 08/22 0804 98 Room air 08/22 0802 97.7 77 20 138/86 103.6 95 Room air PATIENT WEIGHT: Weight (lb): 175 Weight (oz): 4.28 Weight (kg): 79.500 Medications: Active Meds + DC'd Last 24 Hrs Sterile Water (WATER FOR INJECTION) 10 ML .STK-M ED ONE IV (DC) Tramadol HCl (ULTRAM) 25 MG Q6H PRN PO Sodium Chloride (SODIUM CHLORIDE) 10 ML BID IV Sodium Chloride (SODIUM CHLORIDE) 10 ML ASDIR SD N IV Carboxymethylcellulose Sodium (REFRESH TEARS) 1 DROP QID EACH EYE Cefazolin Sodium (KEFZOL OR ANCEF) 2 GM Q8H IV Sodium Chloride (SODIUM CHLORIDE) 20 ML ASDIR IV Polyethylene Glycol (MIRALAX) 17 GM DAILY PO Docusate Sodium (COLACE) 100 MG BID PO Sennosides (Senna Lax 8.6 MG TABLET) 17.2 MG BED TIME PO Acetaminophen (TYLENOL) 650 MG Q4H PRN PRN PO Acetaminophen (TYLENOL) 650 MG Q4H PRN PRN RECTA L Dextrose/Water (DEXTROSE 10% IN WATER) 125 ML DIR PRN IV (CKD) Dextrose/Water (DEXTROSE 10% IN WATER) 250 ML DIR PRN IV (CKD) Glucagon (GLUCAGON) 1 MG ASDIR PRN IM Magnesium Sulfate (MAGNESIUM SULFATE 4GM/SWFI 10 0ML) 100 ML ASDIR PRN IV Magnesium Sulfate (MAGNESIUM SULFATE 2GM/SWFI 50 ML) 50 ML ASDIR PRN IV Magnesium Sulfate/Dextrose (MAGNESIUM SULFATE 1G M/D5W 100ML) 100 ML ASDIR PRN IV Ondansetron HCl (ZOFRAN) 4 MG Q6H PRN PRN IV Amiodarone HCl (CORDARONE) 200 MG DAILY PO Aspirin (ASPIRIN) 81 MG DAILY PO Clopidogrel Bisulfate (Plavix) 75 MG DAILY PO Atorvastatin Calcium (LIPITOR) 40 MG 2100 PO Metoprolol Tartrate (LOPRESSOR) 12.5 MG BID PO Prednisone (predniSONE) 1 MG TID PO Pantoprazole (PROTONIX) 40 MG DAILY PRN PO Physical Exam General appearance: alert, awake Neck: full range of motion, non-tender, normal thyroid, supple/no meningismus, no bruit/NL carotids, no JVD, no lymphadenopathy , no masses or swelling Cardiovascular: CV assessment: regular rate and rhythm Respiratory: decreased breath sounds, no distres s Abdomen: non-tender, normal bowel sounds , no distention, no guarding, no mass/ organomegaly, no pulsatile mass, no rebound Upper extremity: UE assessment: normal capillary refill, no rafat a Lower extremity: LE assessment: normal capillary refill, no rafat a Diagnosis, Assessment Plan Free Text DxA P Notes Free Text DxA P Notes: 1. Coronary artery disease Status post coronary artery bypass graft surger y on 08/02/2022 2. Sternal wound drainage S/P wound surgery/debridement 3. Hypertension 4. Hyperlipidemia Electronically Signed by Denton Chaparro MD on at 0711 RPT #:[id number] END OF REPORT 2022-08-23 05:37:00-00:00 [facility] Cardiothoracic Surgery Prog REPORT#:[id number] REPORT STATUS: Signed DATE:08/23/22 TIME: 536 PATIENT: MARY DALY UNIT #: [id number] [place] [facility] [place] : [facility] AGE: 66 SEX: M ATTEND: Siri Mccurdy MD ADM AUTHOR: Rosalind Mendez Physic * ALL edits or amendments must be made on the [employer]/computer document * General Post-op: day 7 Status post: 1. Debridement of the sternal wound. 2. Placement of wound VAC. Review of Systems Constitutional: Denies: chills, fatigue, generalized weakness. Skin: Denies: abrasion, bruising, ecchymosis. Allergy/Immun: Denies: allergic reaction, hives, rhinorrhea. Eyes: Denies: redness, visual loss/blurred, eye pain. Respiratory: Denies: PETERSEN (dyspnea on exertion), pleuritic javier n, productive cough (sputum). Cardiovascular: Denies: chest pain, palpitations. GI: Denies: abdominal pain, nausea, vomiting. : Denies: dysuria, flank pain. Musculoskeletal: Denies: arthritis, joint pain, neck pain. Heme: Denies: adenopathy, bleeding, petechiae. Endocrine: Denies: cold intolerance, heat intolerance, poly uria. Neuro: Denies: bladder dysfunction, seizure, syncope. Psych: Denies: anxiety, insomnia. All systems rev neg: except as marked Objective General VS/I O Last Documented: Result Date Time Pulse Ox 92 08/23 0250 B/P 148/76 08/23 0250 B/P Mean 99.9 08/23 0250 O2 Delivery Room air 08/23 025 Temp 97.9 08/23 0250 Pulse 67 08/23 0250 Resp 22 08/23 0250 FiO2 21 08/22 2038 O2 Flow Rate 2 08/16 1400 24 hour I O ending at 0700: 08/23 0700 08/22 1900 Intake Total 3050 Output Total 200 1150 Balance -200 1900 Intake, Oral 3050 Number 2 Bowel Movements Number Voids 1 3 Output, 50 Drainage Output, Urine 200 1100 PATIENT WEIGHT: Weight (lb): 175 Weight (oz): 4.28 Weight (kg): 79.500 Physical Exam General appearance: alert, awake, oriented Wound/incision: Location: sternum Site condition: wound vac in place HEENT: anicteric, mucosal membranes moist, pupil s reactive to light Neck: full range of motion, non-tender Cardiovascular: normal heart sounds, regular rat e rhythm, wound vac in place to sternum Respiratory: aerating well, symmetric expansion, no distress Abdomen: soft, non-tender Genitourinary: urine Extremities: dry, moves all Musculoskeletal: full range of motion, painless range of motion Skin: dry, intact Psychiatry: normal affect, normal mood Diagnosis, Assessment Plan Free Text A P: This is a 58-year-old gentleman with past medica l history of coronary artery disease status post coronary artery bypass graft CABG x 4 (MITCHELL-LAD, SVG-OM1, SVG-OM2, SVG-PDA)on 08/02/[address] Mccurdy. He has a history of temporal arteritis on chronic prednisone, diverticulitis, gout, hypertension, hyperlipidemia. His postop course, he did very well. Working wit h physical therapy. He was mobile, walking with PT OT. His wounds were vicenta n and dry. There was no drainage upon discharge. He was discharged on po stop day 7. He was discharged on 08/09/2022. He repor ts about 2 or 3 days ago he started to notice increased drainage in his distal sternal wound. He also reports having chills at night. The patient admits to not check ing his temperature. The patient denies any nause a or vomiting, denies any shortness of breath, does complain of right-sided chest wall pain. Patient is admitted for observation for sternal wound drainage Assessment/plan 1. Coronary artery disease Status post coronary artery bypass graft surger y on 08/02/2022 2. Sternal wound drainage Obtain CT noncontrast chest 3. Hypertension 4. Hyperlipidemia Patient will be admitted for investigation of st ernal wound drainage. Will obtain CT noncontrast of the chest. DVT studies of the lower extremities We will start IV antibiotics, routine labs. Further recommendations to follow 08/17/22 POD 1 08/18/22 Continue abx as per ID Wound care team to change wound vac Labs reviewed Transfer to N 1 08/19/22 Patient in stable condition, no complaints, afeb rile Reviewed labs Wound vac changed per wound care team On room air Antibiotics per ID, PICC line ordered for home a ntibiotics Discharge home soon 08/20/22 Patient doing well Denies pain Breathing comfortable on room air Encourage I-S use and mobilization Awaiting PICC line and insurance approval for ho me antibiotics 08/21/22 Patient resting comfortable, on room air PICC line placed Home antibiotics arranged by nurse case management Pending home wound vac Encourage mobilization and I-S use Discharge home once abx and wound vac arranged. 08/22/22 Patient doing well Afebirle Continue antibiotics Discharge home once wound vac set up Encourage I-S use and ambulation 08/23/22 AAOx3 Patient resting comfortable, denies complaints Afebrile Labs reviewed On IV antibiotics as per ID. PICC line in place, outpatient IV antibiotics being arranged Wound VAC in place. Outpatient home health and w ound care being arranged Respiratory: On room air 99% Cardiac: Remains sinus rhythm Patient was seen and examined by Dr. Mccurdy Home once IV antibiotics and wound VAC arranged at 0716 at 1842 RPT #:[id number] END OF REPORT 2022-08-22 10:05:00-00:00 [facility]L [facility] Cardiothoracic Surgery Prog REPORT#:[id number] REPORT STATUS: Signed DATE:08/22/22 TIME: 1005 PATIENT: MARY DALY UNIT #: [id number] [place] [facility] [place] : 53 AGE: 67 SEX: M ATTEND: Siri Mccurdy MD ADM AUTHOR: Ludin Mccurdy MD * ALL edits or amendments must be made on the [employer]/computer document * General Post-op: day 6 Status post: 1. Debridement of the sternal wound. 2. Placement of wound VAC. Review of Systems Constitutional: Denies: chills, fatigue, generalized weakness. Skin: Denies: abrasion, bruising, ecchymosis. Allergy/Immun: Denies: allergic reaction, hives, rhinorrhea. Eyes: Denies: redness, visual loss/blurred, eye pain. Respiratory: Denies: PETERSEN (dyspnea on exertion), pleuritic javier n, productive cough (sputum). Cardiovascular: Denies: chest pain, palpitations. GI: Denies: abdominal pain, nausea, vomiting. : Denies: dysuria, flank pain. Musculoskeletal: Denies: arthritis, joint pain, neck pain. Heme: Denies: adenopathy, bleeding, petechiae. Endocrine: Denies: cold intolerance, heat intolerance, poly uria. Neuro: Denies: bladder dysfunction, seizure, syncope. Psych: Denies: anxiety, insomnia. All systems rev neg: except as marked Objective General VS/I O Last Documented: Result Date Time Pulse Ox 95 08/22 08 B/P 138/86 08/22 0802 B/P Mean 103.6 08/22 0802 O2 Delivery Room air 08/22 0802 Temp 36.5 08/22 0802 Pulse 77 08/22 0802 Resp 20 08/22 0802 FiO2 21 08/21 2038 O2 Flow Rate 2 08/16 1400 24 hour I O ending at 0700: 08/22 0700 08/21 1900 Intake Total 1130 Output Total 350 1700 Balance -350 -570 Intake, Oral 1130 Number 2 Bowel Movements Number Voids 1 Output, Urine 350 1700 Patient 79.5 kg Weight Weight Bed scale Measurement Method PATIENT WEIGHT: Weight (lb): 175 Weight (oz): 4.28 Weight (kg): 79.500 Dietitian Nutrition assessment The data set between the solid lines has been im ported from the dietitian's assessment. BMI Calculated: 25.1 Nutrition related diagnosis: Nutrition diagnosis details: Nutrition problem: Nutrition etiology: Nutrition signs and symptoms: Nutrition prescription: Dietitian name: Assessment completed: Physical Exam General appearance: alert, awake, oriented Wound/incision: Location: sternum Site condition: wound vac in place HEENT: anicteric, mucosal membranes moist, pupil s reactive to light Neck: full range of motion, non-tender Cardiovascular: normal heart sounds, regular rat e rhythm, wound vac in place to sternum Respiratory: aerating well, symmetric expansion, no distress Abdomen: soft, non-tender Genitourinary: urine Extremities: dry, moves all Musculoskeletal: full range of motion, painless range of motion Skin: dry, intact Psychiatry: normal affect, normal mood Current Medications Medications: Active Meds + DC'd Last 24 Hrs Tramadol HCl (ULTRAM) 25 MG Q6H PRN PO Sodium Chloride (SODIUM CHLORIDE) 10 ML BID IV Sodium Chloride (SODIUM CHLORIDE) 10 ML ASDIR SD N IV Carboxymethylcellulose Sodium (REFRESH TEARS) 1 DROP QID EACH EYE Cefazolin Sodium (KEFZOL OR ANCEF) 2 GM Q8H IV Sodium Chloride (SODIUM CHLORIDE) 20 ML ASDIR IV Mupirocin (BACTROBAN 2% 22 GM OINTMENT) 1 APPLIC BID NASAL (DC) Polyethylene Glycol (MIRALAX) 17 GM DAILY PO Docusate Sodium (COLACE) 100 MG BID PO Sennosides (Senna Lax 8.6 MG TABLET) 17.2 MG BE DTIME PO Acetaminophen (TYLENOL) 650 MG Q4H PRN PRN PO Acetaminophen (TYLENOL) 650 MG Q4H PRN PRN RECTA L Dextrose/Water (DEXTROSE 10% IN WATER) 125 ML A SDIR PRN IV (CKD) Dextrose/Water (DEXTROSE 10% IN WATER) 250 ML DIR PRN IV (CKD) Glucagon (GLUCAGON) 1 MG ASDIR PRN IM Magnesium Sulfate (MAGNESIUM SULFATE 4GM/SWFI 10 0ML) 100 ML ASDIR PRN IV Magnesium Sulfate (MAGNESIUM SULFATE 2GM/SWFI 50 ML) 50 ML ASDIR PRN IV Magnesium Sulfate/Dextrose (MAGNESIUM SULFATE 1G M/D5W 100ML) 100 ML ASDIR PRN IV Ondansetron HCl (ZOFRAN) 4 MG Q6H PRN PRN IV Amiodarone HCl (CORDARONE) 200 MG DAILY PO Aspirin (ASPIRIN) 81 MG DAILY PO Clopidogrel Bisulfate (Plavix) 75 MG DAILY PO Atorvastatin Calcium (LIPITOR) 40 MG 2100 PO Metoprolol Tartrate (LOPRESSOR) 12.5 MG BID PO Prednisone (predniSONE) 1 MG TID PO Pantoprazole (PROTONIX) 40 MG DAILY PRN PO Results Findings/Data: Laboratory Tests 08/23 255 Chemistry Sodium (134 - 147 mEq/L) 139 Potassium (3.4 - 5.0 mEq/L) 4.2 Chloride (100 - 108 mEq/L) 106 Carbon Dioxide (21 - 33 mEq/l) 24 Anion Gap (0 - 20) 13 BUN (7 - 18 mg/dL) 7 Creatinine (0.6 - 1.3 mg/dL) 0.8 Glomerular Filtr Rate (80 - 90) 96.4 H Glucose (70 - 110 mg/dL) 97 Calcium (8.0 - 10.5 mg/dL) 9.1 Magnesium (1.80 - 2.40 mg/dL) 1.98 Laboratory Tests 08/23 255 Hematology WBC (4.5 - 11.0 x10 3/uL) 12.7 H RBC (4.00 - 5.60 x10 6/uL) 3.33 L Hgb (12.5 - 16.9 g/dL) 9.6 L Hct (37.5 - 50.7 %) 30.4 L MCV (81.0 - 99.0 fL) 91.3 MCH (27.0 - 33.0 pg) 28.8 MCHC (33.0 - 37.0 g/dL) 31.6 L RDW (11.5 - 14.5 %) 14.9 H Plt Count (150 - 400 x10 3/uL) 653 H MPV (7.0 - 9.0 fL) 9.9 H Neut % (Auto) (56.0 - 77.0 %) 68.8 Lymph % (Auto) (14.0 - 32.0 %) 18.1 Stephenson % (Auto) (4.8 - 9.0 %) 9.7 H Eos % (Auto) (0.3 - 3.7 %) 2.4 Baso % (Auto) (0.0 - 2.0 %) 0.3 Neut # (Auto) (2.0 - 7.6 x10 3/uL) 8.74 H Lymph # (Auto) (1.0 - 3.8 x10 3/uL) 2.30 Stephenson # (Auto) (0.1 - 0.8 x10 3/uL) 1.23 H Eos # (Auto) (0.0 - 0.2 x10 3/uL) 0.31 H Baso # (Auto) (0.0 - 0.2 x10 3/uL) 0.04 Abs Immat Gran (auto) (0.00 - 0.03 x10 3/uL) 0. 09 H Add Manual Diff NO Immature Gran % (0.0 - 2.0 %) 0.7 Nucleated RBC % (0 - 0 %) 0.0 Nucleated RBCs # (Man) (0.0 - 0.1 x10 3/uL) 0. 00 Radiology data: Recent Impressions: RADIOLOGY - XR CHEST 1 V 08/22 0803 Report Impression - Status: SIGNED Entered: 08/22/2022 0821 IMPRESSION: Grossly stable exam. Impression By: [email or web address] - Allan Diana M.D. Results: labs reviewed, vital signs stable, erin nolan personally rev'd, x-ray personally reviewed, current med profile rev'd Diagnosis, Assessment Plan Free Text A P: This is a 58-year-old gentleman with past medica l history of coronary artery disease status post coronary artery bypass graft CABG x 4 (MITCHELL-LAD, SVG-OM1, SVG-OM2, SVG-PDA)on 08/02/[address] Mccurdy. He has a history of temporal arteritis on chronic prednisone, diverticulitis, gout, hypertension, hyperlipidemia. His postop course, he did very well. Working wit h physical therapy. He was mobile, walking with PT OT. His wounds were vicenta n and dry. There was no drainage upon discharge. He was discharged on po stop day 7. He was discharged on 08/09/2022. He repor ts about 2 or 3 days ago he started to notice increased drainage in his distal sternal wound. He also reports having chills at night. The patient admits to not check ing his temperature. The patient denies any nause a or vomiting, denies any shortness of breath, does complain of right-sided chest wall pain. Patient is admitted for observation for sternal wound drainage Assessment/plan 1. Coronary artery disease Status post coronary artery bypass graft surger y on 08/02/2022 2. Sternal wound drainage Obtain CT noncontrast chest 3. Hypertension 4. Hyperlipidemia Patient will be admitted for investigation of st ernal wound drainage. Will obtain CT noncontrast of the chest. DVT studies of the lower extremities We will start IV antibiotics, routine labs. Further recommendations to follow 08/17/22 POD 1 08/18/22 Continue abx as per ID Wound care team to change wound vac Labs reviewed Transfer to CVN 1 08/19/22 Patient in stable condition, no complaints, afeb rile Reviewed labs Wound vac changed per wound care team On room air Antibiotics per ID, PICC line ordered for home a ntibiotics Discharge home soon 08/20/22 Patient doing well Denies pain Breathing comfortable on room air Encourage I-S use and mobilization Awaiting PICC line and insurance approval for ho ut antibiotics 08/21/22 Patient resting comfortable, on room air PICC line placed Home antibiotics arranged by nurse case management Pending home wound vac Encourage mobilization and I-S use Discharge home once abx and wound vac arranged. 08/22/22 Patient doing well Afebirle Continue antibiotics Discharge home once wound vac set up Encourage I-S use and ambulation at [address] [facility] #:[id number] END OF REPORT 2022-08-21 13:45:00-00:[address] [facility] ([facility]) Cardiothoracic Surgery Prog REPORT#:[id number] REPORT STATUS: Signed DATE:08/21/22 TIME: 1345 PATIENT: MARY DALY UNIT #: [id number] ROOM/BED: 3353-1 : 53 AGE: 66 SEX: M ATTEND: Siri Mccurdy MD ADM AUTHOR: Ludin Mccurdy MD * ALL edits or amendments must be made on the [employer]/computer document * General Post-op: day 5 Status post: 1. Debridement of the sternal wound. 2. Placement of wound VAC. Review of Systems Constitutional: Denies: chills, fatigue, generalized weakness. Skin: Denies: abrasion, bruising, ecchymosis. Allergy/Immun: Denies: allergic reaction, hives, rhinorrhea. Eyes: Denies: redness, visual loss/blurred, eye pain. Respiratory: Denies: PETERSEN (dyspnea on exertion), pleuritic javier n, productive cough (sputum). Cardiovascular: Denies: chest pain, palpitations. GI: Denies: abdominal pain, nausea, vomiting. : Denies: dysuria, flank pain. Musculoskeletal: Denies: arthritis, joint pain, neck pain. Heme: Denies: adenopathy, bleeding, petechiae. Endocrine: Denies: cold intolerance, heat intolerance, poly uria. Neuro: Denies: bladder dysfunction, seizure, syncope. Psych: Denies: anxiety, insomnia. All systems rev neg: except as marked Objective General VS/I O Last Documented: Result Date Time Pulse Ox 97 08/21 1210 B/P 154/79 08/21 1210 B/P Mean 0.0 08/21 121 O2 Delivery Nasal cannula 08/21 121 Temp 36.4 08/21 121 Pulse 68 08/21 121 Resp 12 08/21 1210 FiO2 21 08/19 2018 O2 Flow Rate 2 08/16 1400 24 hour I O ending at 0700: 08/21 0700 08/20 1900 Intake Total 250 650.00 Output Total 500 1100 Balance -250 -450.00 Intake, IV 50.00 Intake, Oral 250 600 Number 1 Bowel Movements Output, Urine 500 1100 PATIENT WEIGHT: Weight (lb): 180 Weight (oz): 15.99 Weight (kg): 82.100 Dietitian Nutrition assessment The data set between the solid lines has been im ported from the dietitian's assessment. BMI Calculated: 26.0 Nutrition related diagnosis: Nutrition diagnosis details: Nutrition problem: Nutrition etiology: Nutrition signs and symptoms: Nutrition prescription: Dietitian name: Assessment completed: Physical Exam General appearance: alert, awake, oriented Wound/incision: Location: sternum Site condition: wound vac in place HEENT: anicteric, mucosal membranes moist, pupil s reactive to light Neck: full range of motion, non-tender Cardiovascular: normal heart sounds, regular rat e rhythm, wound vac in place to sternum Respiratory: aerating well, symmetric expansion, no distress Abdomen: soft, non-tender Genitourinary: urine Extremities: dry, moves all Musculoskeletal: full range of motion, painless range of motion Skin: dry, intact Psychiatry: normal affect, normal mood Current Medications Medications: Active Meds + DC'd Last 24 Hrs Tramadol HCl (ULTRAM) 25 MG Q6H PRN PO Sodium Chloride (SODIUM CHLORIDE) 10 ML BID IV Sodium Chloride (SODIUM CHLORIDE) 10 ML ASDIR SD N IV Carboxymethylcellulose Sodium (REFRESH TEARS) 1 DROP QID EACH EYE Cefazolin Sodium (KEFZOL OR ANCEF) 2 GM Q8H IV Sodium Chloride (SODIUM CHLORIDE) 20 ML ASDIR IV Mupirocin (BACTROBAN 2% 22 GM OINTMENT) 1 APPLIC BID NASAL Polyethylene Glycol (MIRALAX) 17 GM DAILY PO Docusate Sodium (COLACE) 100 MG BID PO Sennosides (Senna Lax 8.6 MG TABLET) 17.2 MG BED TIME PO Acetaminophen (TYLENOL) 650 MG Q4H PRN PRN PO Acetaminophen (TYLENOL) 650 MG Q4H PRN PRN RECTA L Dextrose/Water (DEXTROSE 10% IN WATER) 125 ML DIR PRN IV (CKD) Dextrose/Water (DEXTROSE 10% IN WATER) 250 ML DIR PRN IV (CKD) Glucagon (GLUCAGON) 1 MG ASDIR PRN IM Magnesium Sulfate (MAGNESIUM SULFATE 4GM/SWFI 10 0ML) 100 ML ASDIR PRN IV Magnesium Sulfate (MAGNESIUM SULFATE 2GM/SWFI 50 ML) 50 ML ASDIR PRN IV Magnesium Sulfate/Dextrose (MAGNESIUM SULFATE 1G M/D5W 100ML) 100 ML ASDIR PRN IV Ondansetron HCl (ZOFRAN) 4 MG Q6H PRN PRN IV Amiodarone HCl (CORDARONE) 200 MG DAILY PO Aspirin (ASPIRIN) 81 MG DAILY PO Clopidogrel Bisulfate (Plavix) 75 MG DAILY PO Atorvastatin Calcium (LIPITOR) 40 MG 2100 PO Metoprolol Tartrate (LOPRESSOR) 12.5 MG BID PO Prednisone (predniSONE) 1 MG TID PO Pantoprazole (PROTONIX) 40 MG DAILY PRN PO Tramadol HCl (ULTRAM) 25 MG Q6H PRN PO (DC) Results Findings/Data: Laboratory Tests 08/22 351 Chemistry Sodium (134 - 147 mEq/L) 138 Potassium (3.4 - 5.0 mEq/L) 4.2 Chloride (100 - 108 mEq/L) 106 Carbon Dioxide (21 - 33 mEq/l) 26 Anion Gap (0 - 20) 10 BUN (7 - 18 mg/dL) 7 Creatinine (0.6 - 1.3 mg/dL) 0.8 Glomerular Filtr Rate (80 - 90) 96.4 H Glucose (70 - 110 mg/dL) 100 Calcium (8.0 - 10.5 mg/dL) 8.8 Magnesium (1.80 - 2.40 mg/dL) 2.07 Laboratory Tests 08/22 351 Hematology WBC (4.5 - 11.0 x10 3/uL) 10.5 RBC (4.00 - 5.60 x10 6/uL) 3.25 L Hgb (12.5 - 16.9 g/dL) 9.7 L Hct (37.5 - 50.7 %) 29.8 L MCV (81.0 - 99.0 fL) 91.7 MCH (27.0 - 33.0 pg) 29.8 MCHC (33.0 - 37.0 g/dL) 32.6 L RDW (11.5 - 14.5 %) 14.8 H Plt Count (150 - 400 x10 3/uL) 630 H MPV (7.0 - 9.0 fL) 9.7 H Neut % (Auto) (56.0 - 77.0 %) 64.5 Lymph % (Auto) (14.0 - 32.0 %) 20.2 Stephenson % (Auto) (4.8 - 9.0 %) 10.0 H Eos % (Auto) (0.3 - 3.7 %) 3.8 H Baso % (Auto) (0.0 - 2.0 %) 0.7 Neut # (Auto) (2.0 - 7.6 x10 3/uL) 6.75 Lymph # (Auto) (1.0 - 3.8 x10 3/uL) 2.11 Stephenson # (Auto) (0.1 - 0.8 x10 3/uL) 1.05 H Eos # (Auto) (0.0 - 0.2 x10 3/uL) 0.40 H Baso # (Auto) (0.0 - 0.2 x10 3/uL) 0.07 Abs Immat Gran (auto) (0.00 - 0.03 x10 3/uL) 0. 08 H Add Manual Diff NO Immature Gran % (0.0 - 2.0 %) 0.8 Nucleated RBC % (0 - 0 %) 0.0 Nucleated RBCs # (Man) (0.0 - 0.1 x10 3/uL) 0.0 0 Radiology data: Recent Impressions: RADIOLOGY - XR CHEST 1 V 08/21 0815 Report Impression - Status: SIGNED Entered: 08/21/2022 0835 IMPRESSION: No acute cardiopulmonary findings. Impression By: Fani - Dorina Rajput Results: labs reviewed, vital signs stable, ryth m personally rev'd, x-ray personally reviewed, current med profile rev'd Diagnosis, Assessment Plan Free Text A P: This is a 58-year-old gentleman with past medica l history of coronary artery disease status post coronary artery bypass graft CABG x 4 (MITCHELL-LAD, SVG-OM1, SVG-OM2, SVG-PDA)on 08/02/[address] Mccurdy. He has a history of temporal arteritis on chronic prednisone, diverticulitis, gout, hypertension, hyperlipidemia. His postop course, he did very well. Working wit h physical therapy. He was mobile, walking with PT OT. His wounds were vicenta n and dry. There was no drainage upon discharge. He was discharged on po stop day 7. He was discharged on 08/09/2022. He repor ts about 2 or 3 days ago he started to notice increased drainage in his distal sternal wound. He also reports having chills at night. The patient admits to not check ing his temperature. The patient denies any nause a or vomiting, denies any shortness of breath, does complain of right-sided chest wall pain. Patient is admitted for observation for sternal wound drainage Assessment/plan 1. Coronary artery disease Status post coronary artery bypass graft surger y on 08/02/2022 2. Sternal wound drainage Obtain CT noncontrast chest 3. Hypertension 4. Hyperlipidemia Patient will be admitted for investigation of st ernal wound drainage. Will obtain CT noncontrast of the chest. DVT studies of the lower extremities We will start IV antibiotics, routine labs. Further recommendations to follow 08/17/22 POD 1 08/18/22 Continue abx as per ID Wound care team to change wound vac Labs reviewed Transfer to CVN 1 08/19/22 Patient in stable condition, no complaints, afeb rile Reviewed labs Wound vac changed per wound care team On room air Antibiotics per ID, PICC line ordered for home a ntibiotics Discharge home soon 08/20/22 Patient doing well Denies pain Breathing comfortable on room air Encourage I-S use and mobilization Awaiting PICC line and insurance approval for ho me antibiotics 08/21/22 Patient resting comfortable, on room air PICC line placed Home antibiotics arranged by nurse case management Pending home wound vac Encourage mobilization and I-S use Discharge home once abx and wound vac arranged. at 1843 RPT #:[id number] END OF REPORT 2022-08-20 15:46:00-00:[address] [facility] ([facility]) Infectious Dis. Progress Note REPORT#:[id number] REPORT STATUS: Signed DATE:08/20/22 TIME: 1546 PATIENT: MARY DALY UNIT #: [id number] ROOM/BED: 3353-1 : 53 AGE: 66 SEX: M ATTEND: Siri Mccurdy MD ADM AUTHOR: Leo Durand MD * ALL edits or amendments must be made on the el [employer]/computer document * Subjective HPI: This is a 58-year-old male patient with history of coronary artery disease status post CABG on the who presents to the hospital with drainage from his distal sternal wound along with chills On the he underwent debridement of the ster nal wound and wound VAC placement His cultures are growing Staph aureus. He has been started on cefazolin 2 g every 8. Patient reports: No: abdominal pain, back pain, burning with urin ation, cough, feeling better, fever, headache, nausea. Review of Systems Free Text ROS Notes Free Text ROS Notes: 14 systems reviewed and negative apart from pert inent points in the HPI Objective Physical Exam Wound/incision: Location: Sternal wound dressing intact. vac present Head/Eyes: atraumatic, clear cornea ENT: moist mucosal membranes, normal dentition Cardiovascular: normal heart sounds, no rub Respiratory: clear to auscultation, symmetric ex pansion Abdomen: non-tender, normal bowel sounds Extremities: moves all, normal capillary refill Musculoskeletal: full range of motion, normal in spection Results Findings/Data: Laboratory Tests 08/20 0525 Chemistry Sodium (134 - 147 mEq/L) 138 Potassium (3.4 - 5.0 mEq/L) 4.2 Chloride (100 - 108 mEq/L) 104 Carbon Dioxide (21 - 33 mEq/l) 25 Anion Gap (0 - 20) 14 BUN (7 - 18 mg/dL) 8 Creatinine (0.6 - 1.3 mg/dL) 0.7 Glomerular Filtr Rate (80 - 90) 100.4 H Glucose (70 - 110 mg/dL) 103 Calcium (8.0 - 10.5 mg/dL) 9.3 Magnesium (1.80 - 2.40 mg/dL) 1.90 Laboratory Tests 08/20 0525 Hematology WBC (4.5 - 11.0 x10 3/uL) 10.5 RBC (4.00 - 5.60 x10 6/uL) 3.38 L Hgb (12.5 - 16.9 g/dL) 10.0 L Hct (37.5 - 50.7 %) 30.7 L MCV (81.0 - 99.0 fL) 90.8 MCH (27.0 - 33.0 pg) 29.6 MCHC (33.0 - 37.0 g/dL) 32.6 L RDW (11.5 - 14.5 %) 15.1 H Plt Count (150 - 400 x10 3/uL) 710 H MPV (7.0 - 9.0 fL) 10.0 H Neut % (Auto) (56.0 - 77.0 %) 60.1 Lymph % (Auto) (14.0 - 32.0 %) 23.0 Stephenson % (Auto) (4.8 - 9.0 %) 12.2 H Eos % (Auto) (0.3 - 3.7 %) 3.3 Baso % (Auto) (0.0 - 2.0 %) 0.6 Neut # (Auto) (2.0 - 7.6 x10 3/uL) 6.29 Lymph # (Auto) (1.0 - 3.8 x10 3/uL) 2.41 Stephenson # (Auto) (0.1 - 0.8 x10 3/uL) 1.28 H Eos # (Auto) (0.0 - 0.2 x10 3/uL) 0.35 H Baso # (Auto) (0.0 - 0.2 x10 3/uL) 0.06 Abs Immat Gran (auto) (0.00 - 0.03 x10 3/uL) 0. 08 H Add Manual Diff NO Immature Gran % (0.0 - 2.0 %) 0.8 Nucleated RBC % (0 - 0 %) 0.0 Nucleated RBCs # (Man) (0.0 - 0.1 x10 3/uL) 0.0 0 Diagnosis, Assessment Plan Free Text A P: 1-Sternal wound infection wi th MSSA status post debridement postoperative day #2 2-Coronary disease status post CABG 3-History of temporal arteritis 4-History of diverticulitis Recommendations Continue cefazolin at 2 g IV every 8 We will order PICC line placement and home IV an tibiotics via the infusion center followed by oral Keflex until com plete resolution of signs and symptoms of infection followed by a few months of suppres sive therapy as well 08/19 Awaiting PICC line placement Home IV antibiotics have been ordered and pendin g insurance approval 08/20 Home IV antibiotics have been approved by [facility] cefazolin for 6 weeks PICC line is pending Wound VAC is pending for home Likely discharge is Tuesday Electronically Signed by Leo Durand MD on at 1547 RPT #:[id number] END OF REPORT 2022-08-20 15:46:00-00:00 [facility]L [facility] Cardiothoracic Surgery Prog REPORT#:[id number] REPORT STATUS: Signed DATE:08/20/22 TIME: 1546 PATIENT: MARY DALY UNIT #: [id number] ROOM/BED: [place] [id number] : 53 AGE: 66 SEX: M ATTEND: Siri Mccurdy MD ADM AUTHOR: Ludin Mccurdy * ALL edits or amendments must be made on the [employer]/computer document * General Post-op: day 4 Status post: 1. Debridement of the sternal wound. 2. Placement of wound VAC. Review of Systems Constitutional: Denies: chills, fatigue, generalized weakness. Skin: Denies: abrasion, bruising, ecchymosis. Allergy/Immun: Denies: allergic reaction, hives, rhinorrhea. Eyes: Denies: redness, visual loss/blurred, eye pain. Respiratory: Denies: PETERSEN (dyspnea on exertion), pleuritic javier n, productive cough (sputum). Cardiovascular: Denies: chest pain, palpitations. GI: Denies: abdominal pain, nausea, vomiting. : Denies: dysuria, flank pain. Musculoskeletal: Denies: arthritis, joint pain, neck pain. Heme: Denies: adenopathy, bleeding, petechiae. Endocrine: Denies: cold intolerance, heat intolerance, poly uria. Neuro: Denies: bladder dysfunction, seizure, syncope. Psych: Denies: anxiety, insomnia. All systems rev neg: except as marked Objective General VS/I O Last Documented: Result Date Time Pulse Ox 97 08/20 1529 B/P 170/84 08/20 1529 B/P Mean 0.0 08/20 1529 O2 Delivery Room air 08/20 1529 Temp 36.6 08/20 1529 Pulse 66 08/20 1529 Resp 12 08/20 1529 FiO2 21 08/19 2018 O2 Flow Rate 2 08/16 1400 24 hour I O ending at 0700: 08/20 0700 08/19 1900 Intake Total 500 Output Total 910 500 Balance -410 -500 Intake, Oral 500 Number Voids 4 Output, 10 Drainage Output, Urine 900 500 Patient 82.1 kg Weight Weight Standing scale Measurement Method PATIENT WEIGHT: Weight (lb): 180 Weight (oz): 15.99 Weight (kg): 82.100 Dietitian Nutrition assessment The data set between the solid lines has been im ported from the dietitian's assessment. BMI Calculated: 26.0 Nutrition related diagnosis: Nutrition diagnosis details: Nutrition problem: Nutrition etiology: Nutrition signs and symptoms: Nutrition prescription: Dietitian name: Assessment completed: Physical Exam General appearance: alert, awake, oriented Wound/incision: Location: sternum Site condition: wound vac in place HEENT: anicteric, mucosal membranes moist, pupil s reactive to light Neck: full range of motion, non-tender Cardiovascular: normal heart sounds, regular rat e rhythm, wound vac in place to sternum Respiratory: aerating well, symmetric expansion, no distress Abdomen: soft, non-tender Genitourinary: urine Extremities: dry, moves all Musculoskeletal: full range of motion, painless range of motion Skin: dry, intact Psychiatry: normal affect, normal mood Current Medications Medications: Active Meds + DC'd Last 24 Hrs Sodium Chloride (SODIUM CHLORIDE) 10 ML BID IV Sodium Chloride (SODIUM CHLORIDE) 10 ML ASDIR SD N IV Carboxymethylcellulose Sodium (REFRESH TEARS) 1 DROP QID EACH EYE Cefazolin Sodium (KEFZOL OR ANCEF) 2 GM Q8H IV Sodium Chloride (SODIUM CHLORIDE) 20 ML ASDIR IV Mupirocin (BACTROBAN 2% 22 GM OINTMENT) 1 APPLIC BID NASAL Polyethylene Glycol (MIRALAX) 17 GM DAILY PO Docusate Sodium (COLACE) 100 MG BID PO Sennosides (Senna Lax 8.6 MG TABLET) 17.2 MG BED TIME PO Acetaminophen (TYLENOL) 650 MG Q4H PRN PRN PO Acetaminophen (TYLENOL) 650 MG Q4H PRN PRN RECTA L Dextrose/Water (DEXTROSE 10% IN WATER) 125 ML DIR PRN IV (CKD) Dextrose/Water (DEXTROSE 10% IN WATER) 250 ML DIR PRN IV (CKD) Glucagon (GLUCAGON) 1 MG ASDIR PRN IM Magnesium Sulfate (MAGNESIUM SULFATE 4GM/SWFI 10 0ML) 100 ML ASDIR PRN IV Magnesium Sulfate (MAGNESIUM SULFATE 2GM/SWFI 50 ML) 50 ML ASDIR PRN IV Magnesium Sulfate/Dextrose (MAGNESIUM SULFATE 1G M/D5W 100ML) 100 ML ASDIR PRN IV Ondansetron HCl (ZOFRAN) 4 MG Q6H PRN PRN IV Amiodarone HCl (CORDARONE) 200 MG DAILY PO Aspirin (ASPIRIN) 81 MG DAILY PO Clopidogrel Bisulfate (Plavix) 75 MG DAILY PO Atorvastatin Calcium (LIPITOR) 40 MG 2100 PO Metoprolol Tartrate (LOPRESSOR) 12.5 MG BID PO Prednisone (predniSONE) 1 MG TID PO Pantoprazole (PROTONIX) 40 MG DAILY PRN PO Tramadol HCl (ULTRAM) 25 MG Q6H PRN PO Results Findings/Data: Laboratory Tests 08/20 0525 Chemistry Sodium (134 - 147 mEq/L) 138 Potassium (3.4 - 5.0 mEq/L) 4.2 Chloride (100 - 108 mEq/L) 104 Carbon Dioxide (21 - 33 mEq/l) 25 Anion Gap (0 - 20) 14 BUN (7 - 18 mg/dL) 8 Creatinine (0.6 - 1.3 mg/dL) 0.7 Glomerular Filtr Rate (80 - 90) 100.4 H Glucose (70 - 110 mg/dL) 103 Calcium (8.0 - 10.5 mg/dL) 9.3 Magnesium (1.80 - 2.40 mg/dL) 1.90 Laboratory Tests 08/20 0525 Hematology WBC (4.5 - 11.0 x10 3/uL) 10.5 RBC (4.00 - 5.60 x10 6/uL) 3.38 L Hgb (12.5 - 16.9 g/dL) 10.0 L Hct (37.5 - 50.7 %) 30.7 L MCV (81.0 - 99.0 fL) 90.8 MCH (27.0 - 33.0 pg) 29.6 MCHC (33.0 - 37.0 g/dL) 32.6 L RDW (11.5 - 14.5 %) 15.1 H Plt Count (150 - 400 x10 3/uL) 710 H MPV (7.0 - 9.0 fL) 10.0 H Neut % (Auto) (56.0 - 77.0 %) 60.1 Lymph % (Auto) (14.0 - 32.0 %) 23.0 Stephenson % (Auto) (4.8 - 9.0 %) 12.2 H Eos % (Auto) (0.3 - 3.7 %) 3.3 Baso % (Auto) (0.0 - 2.0 %) 0.6 Neut # (Auto) (2.0 - 7.6 x10 3/uL) 6.29 Lymph # (Auto) (1.0 - 3.8 x10 3/uL) 2.41 Stephenson # (Auto) (0.1 - 0.8 x10 3/uL) 1.28 H Eos # (Auto) (0.0 - 0.2 x10 3/uL) 0.35 H Baso # (Auto) (0.0 - 0.2 x10 3/uL) 0.06 Abs Immat Gran (auto) (0.00 - 0.03 x10 3/uL) 0. 08 H Add Manual Diff NO Immature Gran % (0.0 - 2.0 %) 0.8 Nucleated RBC % (0 - 0 %) 0.0 Nucleated RBCs # (Man) (0.0 - 0.1 x10 3/uL) 0.0 0 Radiology data: Recent Impressions: RADIOLOGY - XR CHEST 1 V 08/20 600 Report Impression - Status: SIGNED Entered: 08/20/2022 0754 IMPRESSION: Grossly stable exam. Impression By: [email or web address] - Allan Diana M.D. Results: labs reviewed, vital signs stable, erin nolan personally rev'd, x-ray personally reviewed, current med profile rev'd Diagnosis, Assessment Plan Free Text A P: This is a 58-year-old gentleman with past medica l history of coronary artery disease status post coronary artery bypass graft CABG x 4 (MITCHELL-LAD, SVG-OM1, SVG-OM2, SVG-PDA)on 08/02/[address] Mccurdy. He has a history of temporal arteritis on chronic prednisone, diverticulitis, gout, hypertension, hyperlipidemia. His postop course, he did very well. Working wit h physical therapy. He was mobile, walking with PT OT. His wounds were vicenta n and dry. There was no drainage upon discharge. He was discharged on po stop day 7. He was discharged on 08/09/2022. He repor ts about 2 or 3 days ago he started to notice increased drainage in his distal sternal wound. He also reports having chills at night. The patient admits to not check ing his temperature. The patient denies any nause a or vomiting, denies any shortness of breath, does complain of right-sided chest wall pain. Patient is admitted for observation for sternal wound drainage Assessment/plan 1. Coronary artery disease Status post coronary artery bypass graft surger y on 08/02/2022 2. Sternal wound drainage Obtain CT noncontrast chest 3. Hypertension 4. Hyperlipidemia Patient will be admitted for investigation of st ernal wound drainage. Will obtain CT noncontrast of the chest. DVT studies of the lower extremities We will start IV antibiotics, routine labs. Further recommendations to follow 08/17/22 POD 1 08/18/22 Continue abx as per ID Wound care team to change wound vac Labs reviewed Transfer to CVN 1 08/19/22 Patient in stable condition, no complaints, afeb rile Reviewed labs Wound vac changed per wound care team On room air Antibiotics per ID, PICC line ordered for home a ntibiotics Discharge home soon 08/20/22 Patient doing well Denies pain Breathing comfortable on room air Encourage I-S use and mobilization Awaiting PICC line and insurance approval for ho me antibiotics at [address] [facility] #:[id number] END OF REPORT 2022-08-20 07:02:00-00:00 [facility] Cardiology Progress Note REPORT#:[id number] REPORT STATUS: Signed DATE:08/20/22 TIME: 701 PATIENT: MARY DALY UNIT #: [id number] ROOM/BED: 3353-1 : 53 AGE: 66 SEX: M ATTEND: Siri Mccurdy MD ADM AUTHOR: Denton Chaparro MD * ALL edits or amendments must be made on the [employer]/computer document * Subjective Chief complaint: Pain at incisoonal site Objective General VS/I O: 24 hour I O ending at 0700: 08/20 0700 08/19 1900 Intake Total 500 Output Total 910 500 Balance -410 -500 Intake, Oral 500 Number Voids 4 Output, 10 Drainage Output, Urine 900 500 Patient 82.1 kg Weight Weight Standing scale Measurement Method Vital Signs: Date Time Temp Pulse Resp B/P B/P Pulse O2 O2 F low FiO2 Mean Ox Delivery Rate 08/20 0401 64 17 177/80 115 93 08/20 0400 63 14 94 08/20 0200 64 21 150/78 108 92 08/20 0002 97.9 63 14 168/81 0.0 96 Room air 08/20 0000 61 18 168/79 113 94 08/19 2200 66 17 155/72 107 95 08/19 2024 68 23 153/78 110 95 08/19 2018 94 Room air 21 08/19 1900 69 20 95 08/19 1846 97.9 70 14 150/74 0.0 96 Room air 08/19 1714 98.1 63 20 140/80 0.0 96 Room air 08/19 1236 97.9 60 20 157/82 0.0 93 Room air 08/19 0748 98.2 65 22 158/76 0.0 96 Room air PATIENT WEIGHT: Weight (lb): 180 Weight (oz): 15.99 Weight (kg): 82.100 Medications: Active Meds + DC'd Last 24 Hrs Sodium Chloride (SODIUM CHLORIDE) 10 ML BID IV Sodium Chloride (SODIUM CHLORIDE) 10 ML ASDIR SD N IV Carboxymethylcellulose Sodium (REFRESH TEARS) 1 DROP QID EACH EYE Cefazolin Sodium (KEFZOL OR ANCEF) 2 GM Q8H IV Sodium Chloride (SODIUM CHLORIDE) 20 ML ASDIR IV Mupirocin (BACTROBAN 2% 22 GM OINTMENT) 1 APPLIC BID NASAL Polyethylene Glycol (MIRALAX) 17 GM DAILY PO Docusate Sodium (COLACE) 100 MG BID PO Sennosides (Senna Lax 8.6 MG TABLET) 17.2 MG BED TIME PO Acetaminophen (TYLENOL) 650 MG Q4H PRN PRN PO Acetaminophen (TYLENOL) 650 MG Q4H PRN PRN RECTA L Dextrose/Water (DEXTROSE 10% IN WATER) 125 ML DIR PRN IV (CKD) Dextrose/Water (DEXTROSE 10% IN WATER) 250 ML DIR PRN IV (CKD) Glucagon (GLUCAGON) 1 MG ASDIR PRN IM Magnesium Sulfate (MAGNESIUM SULFATE 4GM/SWFI 10 0ML) 100 ML ASDIR PRN IV Magnesium Sulfate (MAGNESIUM SULFATE 2GM/SWFI 50 ML) 50 ML ASDIR PRN IV Magnesium Sulfate/Dextrose (MAGNESIUM SULFATE 1G M/D5W 100ML) 100 ML ASDIR PRN IV Ondansetron HCl (ZOFRAN) 4 MG Q6H PRN PRN IV Amiodarone HCl (CORDARONE) 200 MG DAILY PO Aspirin (ASPIRIN) 81 MG DAILY PO Clopidogrel Bisulfate (Plavix) 75 MG DAILY PO Atorvastatin Calcium (LIPITOR) 40 MG 2100 PO Metoprolol Tartrate (LOPRESSOR) 12.5 MG BID PO Prednisone (predniSONE) 1 MG TID PO Pantoprazole (PROTONIX) 40 MG DAILY PRN PO Tramadol HCl (ULTRAM) 25 MG Q6H PRN PO Physical Exam General appearance: alert, awake Neck: full range of motion, non-tender, normal thyroid, supple/no meningismus, no bruit/NL carotids, no JVD, no lymphadenopathy , no masses or swelling Cardiovascular: CV assessment: regular rate and rhythm Respiratory: decreased breath sounds, no distres s Abdomen: non-tender, normal bowel sounds , no distention, no guarding, no mass/ organomegaly, no pulsatile mass, no rebound Upper extremity: UE assessment: normal capillary refill, no rafat a Lower extremity: LE assessment: normal capillary refill, no rafat a Results Radiology data: Recent Impressions: RADIOLOGY - XR CHEST 1 V 08/19 0857 Report Impression - Status: SIGNED Entered: 08/19/2022 1102 IMPRESSION: Stable left dependent atelectasis an d small left pleural fluid. Stable cardiomediastinal silhouette. Impression By: [email or web address] - Jolene Flaherty Diagnosis, Assessment Plan Free Text DxA P Notes Free Text DxA P Notes: 1. Coronary artery disease Status post coronary artery bypass graft surger y on 08/02/2022 2. Sternal wound drainage S/P wound surgery/debridement 3. Hypertension 4. Hyperlipidemia Electronically Signed by Denton Chaparro MD on at 0703 RPT #:[id number] END OF REPORT 2022-08-19 16:08:00-00:00 [facility] ([facility]) Infectious Dis. Progress Note REPORT#:[id number] REPORT STATUS: Signed DATE:08/19/22 TIME: 1608 PATIENT: MARY DALY UNIT #: [id number] ROOM/BED: [place] [address] : 53 AGE: 66 SEX: M ATTEND: Ab kim Mccurdy MD ADM AUTHOR: Leo Durand MD * ALL edits or amendments must be made on the [employer]/computer document * Subjective HPI: This is a 58-year-old male patient with history of coronary artery disease status post CABG on the who presents to the hospital with drainage from his distal sternal wound along with chills On the he underwent debridement of the ster nal wound and wound VAC placement His cultures are growing Staph aureus. He has been started on cefazolin 2 g every 8. Patient reports: No: abdominal pain, back pain, burning w ith urination, cough, diarrhea, fever, headache, nausea. Review of Systems Free Text ROS Notes Free Text ROS Notes: 14 systems reviewed and negative apart from pert inent points in the HPI Objective Physical Exam Wound/incision: Location: Sternal wound dressing intact. vac present Head/Eyes: atraumatic, clear cornea ENT: moist mucosal membranes, normal dentition Cardiovascular: normal heart sounds, no rub Respiratory: clear to auscultation, symmetric ex pansion Abdomen: non-tender, normal bowel sounds Extremities: moves all, normal capillary refill Musculoskeletal: full range of motion, normal in spection Results Findings/Data: Laboratory Tests 08/19 357 Chemistry Sodium (134 - 147 mEq/L) 137 Potassium (3.4 - 5.0 mEq/L) 4.0 Chloride (100 - 108 mEq/L) 105 Carbon Dioxide (21 - 33 mEq/l) 25 Anion Gap (0 - 20) 11 BUN (7 - 18 mg/dL) 9 Creatinine (0.6 - 1.3 mg/dL) 0.8 Glomerular Filtr Rate (80 - 90) 96.4 H Glucose (70 - 110 mg/dL) 100 Calcium (8.0 - 10.5 mg/dL) 8.7 Magnesium (1.80 - 2.40 mg/dL) 1.92 Laboratory Tests 08/19 357 Hematology WBC (4.5 - 11.0 x10 3/uL) 9.3 RBC (4.00 - 5.60 x10 6/uL) 3.10 L Hgb (12.5 - 16.9 g/dL) 9.2 L Hct (37.5 - 50.7 %) 27.8 L MCV (81.0 - 99.0 fL) 89.7 MCH (27.0 - 33.0 pg) 29.7 MCHC (33.0 - 37.0 g/dL) 33.1 RDW (11.5 - 14.5 %) 15.4 H Plt Count (150 - 400 x10 3/uL) 686 H MPV (7.0 - 9.0 fL) 9.9 H Neut % (Auto) (56.0 - 77.0 %) 61.1 Lymph % (Auto) (14.0 - 32.0 %) 23.0 Stephenson % (Auto) (4.8 - 9.0 %) 12.5 H Eos % (Auto) (0.3 - 3.7 %) 2.2 Baso % (Auto) (0.0 - 2.0 %) 0.4 Neut # (Auto) (2.0 - 7.6 x10 3/uL) 5.67 Lymph # (Auto) (1.0 - 3.8 x10 3/uL) 2.13 Stephenson # (Auto) (0.1 - 0.8 x10 3/uL) 1.16 H Eos # (Auto) (0.0 - 0.2 x10 3/uL) 0.20 Baso # (Auto) (0.0 - 0.2 x10 3/uL) 0.04 Abs Immat Gran (auto) (0.00 - 0.03 x10 3/uL) 0. 07 H Add Manual Diff NO Immature Gran % (0.0 - 2.0 %) 0.8 Nucleated RBC % (0 - 0 %) 0.0 Nucleated RBCs # (Man) (0.0 - 0.1 x10 3/uL) 0.0 0 Diagnosis, Assessment Plan Free Text A P: 1-Sternal wound infection wi th MSSA status post debridement postoperative day #2 2-Coronary disease status post CABG 3-History of temporal arteritis 4-History of diverticulitis Recommendations Continue cefazolin at 2 g IV every 8 We will order PICC line placement and home IV an tibiotics via the infusion center followed by oral Keflex until com plete resolution of signs and symptoms of infection followed by a few months of suppres sive therapy as well 08/19 Awaiting PICC line placement Home IV antibiotics have been ordered and pendin g insurance approval Electronically Signed by Leo Durand MD on at 1609 RPT #:[id number] END OF REPORT 2022-08-19 13:45:00-00:00 [facility] Cardiothoracic Surgery Prog REPORT#:[id number] REPORT STATUS: Signed DATE:08/19/22 TIME: 1345 PATIENT: MARY DALY UNIT #: [id number] ROOM/BED: [place] [address] : 53 AGE: 67 SEX: M ATTEND: Siri Mccurdy MD ADM AUTHOR: Ludin Mccurdy MD * ALL edits or amendments must be made on the [employer]/computer document * General Post-op: day 3 (POD 1) Status post: 1. Debridement of the sternal wound. 2. Placement of wound VAC. Review of Systems Constitutional: Denies: chills, fatigue, generalized weakness. Skin: Denies: abrasion, bruising, ecchymosis. Allergy/Immun: Denies: allergic reaction, hives, rhinorrhea. Eyes: Denies: redness, visual loss/blurred, eye pain. Respiratory: Denies: PETERSEN (dyspnea on exertion), pleuritic javier n, productive cough (sputum). Cardiovascular: Denies: chest pain, palpitations. GI: Denies: abdominal pain, nausea, vomiting. : Denies: dysuria, flank pain. Musculoskeletal: Denies: arthritis, joint pain, neck pain. Heme: Denies: adenopathy, bleeding, petechiae. Endocrine: Denies: cold intolerance, heat intolerance, poly uria. Neuro: Denies: bladder dysfunction, seizure, syncope. Psych: Denies: anxiety, insomnia. All systems rev neg: except as marked Objective General VS/I O Last Documented: Result Date Time Pulse Ox 93 08/19 1236 B/P 157/82 08/19 1236 B/P Mean 0.0 08/19 1236 O2 Delivery Room air 08/19 1236 Temp 36.6 08/19 1236 Pulse 60 08/19 1236 Resp 20 08/19 1236 FiO2 21 08/17 1523 O2 Flow Rate 2 08/16 1400 24 hour I O ending at 0700: 08/19 0700 08/18 1900 Intake Total 250 360 Output Total Balance 250 360 Intake, Oral 250 360 Number 4 Bowel Movements Number Voids 1 5 Patient 83.9 kg Weight Weight Standing scale Measurement Method PATIENT WEIGHT: Weight (lb): 184 Weight (oz): 15.49 Weight (kg): 83.900 Dietitian Nutrition assessment The data set between the solid lines has been im ported from the dietitian's assessment. BMI Calculated: 26.5 Nutrition related diagnosis: Nutrition diagnosis details: Nutrition problem: Nutrition etiology: Nutrition signs and symptoms: Nutrition prescription: Dietitian name: Assessment completed: Physical Exam General appearance: alert, awake, oriented Wound/incision: Location: sternum Site condition: wound vac in place HEENT: anicteric, mucosal membranes moist, pupil s reactive to light Neck: full range of motion, non-tender Cardiovascular: normal heart sounds, regular rat e rhythm, wound vac in place to sternum Respiratory: aerating well, symmetric expansion, no distress Abdomen: soft, non-tender Genitourinary: guardado, urine Extremities: dry, moves all Musculoskeletal: full range of motion, painless range of motion Skin: dry, intact Psychiatry: normal affect, normal mood Current Medications Medications: Active Meds + DC'd Last 24 Hrs Sodium Chloride (SODIUM CHLORIDE) 10 ML BID IV Sodium Chloride (SODIUM CHLORIDE) 10 ML ASDIR SD N IV Carboxymethylcellulose Sodium (REFRESH TEARS) 1 DROP QID EACH EYE Cefazolin Sodium (KEFZOL OR ANCEF) 2 GM Q8H IV Sodium Chloride (SODIUM CHLORIDE) 20 ML ASDIR IV Mupirocin (BACTROBAN 2% 22 GM OINTMENT) 1 APPLIC BID NASAL Polyethylene Glycol (MIRALAX) 17 GM DAILY PO Docusate Sodium (COLACE) 100 MG BID PO Sennosides (Senna Lax 8.6 MG TABLET) 17.2 MG BED TIME PO Acetaminophen (TYLENOL) 650 MG Q4H PRN PRN PO Acetaminophen (TYLENOL) 650 MG Q4H PRN PRN RECTA L Dextrose/Water (DEXTROSE 10% IN WATER) 125 ML DIR PRN IV (CKD) Dextrose/Water (DEXTROSE 10% IN WATER) 250 ML DIR PRN IV (CKD) Glucagon (GLUCAGON) 1 MG ASDIR PRN IM Magnesium Sulfate (MAGNESIUM SULFATE 4GM/SWFI 10 0ML) 100 ML ASDIR PRN IV Magnesium Sulfate (MAGNESIUM SULFATE 2GM/SWFI 50 ML) 50 ML ASDIR PRN IV Magnesium Sulfate/Dextrose (MAGNESIUM SULFATE 1G M/D5W 100ML) 100 ML ASDIR PRN IV Ondansetron HCl (ZOFRAN) 4 MG Q6H PRN PRN IV Amiodarone HCl (CORDARONE) 200 MG DAILY PO Aspirin (ASPIRIN) 81 MG DAILY PO Clopidogrel Bisulfate (Plavix) 75 MG DAILY PO Atorvastatin Calcium (LIPITOR) 40 MG 2100 PO Metoprolol Tartrate (LOPRESSOR) 12.5 MG BID PO Prednisone (predniSONE) 1 MG TID PO Pantoprazole (PROTONIX) 40 MG DAILY PRN PO Tramadol HCl (ULTRAM) 25 MG Q6H PRN PO Results Findings/Data: Laboratory Tests 08/19 357 Chemistry Sodium (134 - 147 mEq/L) 137 Potassium (3.4 - 5.0 mEq/L) 4.0 Chloride (100 - 108 mEq/L) 105 Carbon Dioxide (21 - 33 mEq/l) 25 Anion Gap (0 - 20) 11 BUN (7 - 18 mg/dL) 9 Creatinine (0.6 - 1.3 mg/dL) 0.8 Glomerular Filtr Rate (80 - 90) 96.4 H Glucose (70 - 110 mg/dL) 100 Calcium (8.0 - 10.5 mg/dL) 8.7 Magnesium (1.80 - 2.40 mg/dL) 1.92 Laboratory Tests 08/19 357 Hematology WBC (4.5 - 11.0 x10 3/uL) 9.3 RBC (4.00 - 5.60 x10 6/uL) 3.10 L Hgb (12.5 - 16.9 g/dL) 9.2 L Hct (37.5 - 50.7 %) 27.8 L MCV (81.0 - 99.0 fL) 89.7 MCH (27.0 - 33.0 pg) 29.7 MCHC (33.0 - 37.0 g/dL) 33.1 RDW (11.5 - 14.5 %) 15.4 H Plt Count (150 - 400 x10 3/uL) 686 H MPV (7.0 - 9.0 fL) 9.9 H Neut % (Auto) (56.0 - 77.0 %) 61.1 Lymph % (Auto) (14.0 - 32.0 %) 23.0 Stephenson % (Auto) (4.8 - 9.0 %) 12.5 H Eos % (Auto) (0.3 - 3.7 %) 2.2 Baso % (Auto) (0.0 - 2.0 %) 0.4 Neut # (Auto) (2.0 - 7.6 x10 3/uL) 5.67 Lymph # (Auto) (1.0 - 3.8 x10 3/uL) 2.13 Stephenson # (Auto) (0.1 - 0.8 x10 3/uL) 1.16 H Eos # (Auto) (0.0 - 0.2 x10 3/uL) 0.20 Baso # (Auto) (0.0 - 0.2 x10 3/uL) 0.04 Abs Immat Gran (auto) (0.00 - 0.03 x10 3/uL) 0. 07 H Add Manual Diff NO Immature Gran % (0.0 - 2.0 %) 0.8 Nucleated RBC % (0 - 0 %) 0.0 Nucleated RBCs # (Man) (0.0 - 0.1 x10 3/uL) 0. 00 Radiology data: Recent Impressions: RADIOLOGY - XR CHEST 1 V 08/19 0857 Report Impression - Status: SIGNED Entered: 08/19/2022 1102 IMPRESSION: Stable left dependent atelectasis an d small left pleural fluid. Stable cardiomediastinal silhouette. Impression By: [email or web address] - Jolene Flaherty Results: labs reviewed, vital signs stable, ryth m personally rev'd, x-ray personally reviewed, current med profile rev'd Diagnosis, Assessment Plan Free Text A P: This is a 58-year-old gentleman with past medica l history of coronary artery disease status post coronary artery bypass graft CABG x 4 (MITCHELL-LAD, SVG-OM1, SVG-OM2, SVG-PDA)on 08/02/[address] Mccurdy. He has a history of temporal arteritis on chronic prednisone, diverticulitis, gout, hypertension, hyperlipidemia. His postop course, he did very well. Working wit h physical therapy. He was mobile, walking with PT OT. His wounds were vicenta n and dry. There was no drainage upon discharge. He was discharged on po stop day 7. He was discharged on 08/09/2022. He repor ts about 2 or 3 days ago he started to notice increased drainage in his distal sternal wound. He also reports having chills at night. The patient admits to not check ing his temperature. The patient denies any nause a or vomiting, denies any shortness of breath, does complain of right-sided chest wall pain. Patient is admitted for observation for sternal wound drainage Assessment/plan 1. Coronary artery disease Status post coronary artery bypass graft surger y on 08/02/2022 2. Sternal wound drainage Obtain CT noncontrast chest 3. Hypertension 4. Hyperlipidemia Patient will be admitted for investigation of st ernal wound drainage. Will obtain CT noncontrast of the chest. DVT studies of the lower extremities We will start IV antibiotics, routine labs. Further recommendations to follow 08/17/22 POD 1 08/18/22 Continue abx as per ID Wound care team to change wound vac Labs reviewed Transfer to CVN 1 08/19/22 Patient in stable condition, no complaints, afeb rile Reviewed labs Wound vac changed per wound care team On room air Antibiotics per ID, PICC line ordered for home a ntibiotics Discharge home soon at 2031 RPT #:[id number] END OF REPORT 2022-08-19 07:09:00-00:00 [facility] Cardiology Progress Note REPORT#:[id number] REPORT STATUS: Signed DATE:08/19/22 TIME: 708 PATIENT: MARY DALY UNIT #: [id number] ROOM/BED: [place] [address] : 53 AGE: 66 SEX: M ATTEND: Siri Mccurdy MD ADM AUTHOR: Denton Chaparro MD * ALL edits or amendments must be made on the [employer]/computer document * Subjective Chief complaint: BETTER Objective General VS/I O: 24 hour I O ending at 0700: 08/19 0700 08/18 1900 Intake Total 250 360 Output Total Balance 250 360 Intake, Oral 250 360 Number 4 Bowel Movements Number Voids 1 5 Patient 83.9 kg Weight Weight Standing scale Measurement Method Vital Signs: Date Time Temp Pulse Resp B/P B/P Pulse O2 O2 F low FiO2 Mean Ox Delivery Rate 08/19 0100 66 18 161/74 108 92 08/19 0000 98.3 Room air 08/19 0000 66 21 157/79 110 91 08/18 2300 68 18 166/77 111 92 08/18 2200 66 19 142/75 103 94 08/18 2100 68 23 160/77 111 92 08/18 2037 95 Room air 08/19 1999 97.8 Room air 08/19 1999 68 25 152/71 102 94 08/18 1903 68 28 150/73 105 92 08/18 1814 65 26 157/79 110 08/18 1717 64 23 156/73 103 95 08/18 1700 97.8 08/18 1500 65 18 144/75 103 93 08/18 1401 71 29 159/74 106 95 08/18 1400 74 90 08/18 1321 98.0 08/18 1300 66 22 157/77 110 94 08/18 1201 60 21 136/70 97 93 08/18 1137 60 19 149/74 105 93 08/18 1101 60 20 131/70 96 94 08/18 1035 64 22 154/82 104 96 08/18 0901 69 27 145/67 97 94 08/18 0833 67 42 151/85 109 98 08/18 0814 97.4 08/18 0801 63 17 132/62 89 99 08/18 0758 95 Room air PATIENT WEIGHT: Weight (lb): 184 Weight (oz): 15.49 Weight (kg): 83.900 Medications: Active Meds + DC'd Last 24 Hrs Sodium Chloride (SODIUM CHLORIDE) 10 ML BID IV Lidocaine HCl (LIDOCAINE 1% 5ML) 5 ML ONCE ONE L OCAL (DC) Sodium Chloride (SODIUM CHLORIDE) 10 ML ASDIR SD N IV Carboxymethylcellulose Sodium (REFRESH TEARS) 1 DROP QID EACH EYE Cefazolin Sodium (KEFZOL OR ANCEF) 2 GM Q8H IV Sodium Chloride (SODIUM CHLORIDE) 20 ML ASDIR IV Mupirocin (BACTROBAN 2% 22 GM OINTMENT) 1 APPLIC BID NASAL Polyethylene Glycol (MIRALAX) 17 GM DAILY PO Docusate Sodium (COLACE) 100 MG BID PO Sennosides (Senna Lax 8.6 MG TABLET) 17.2 MG BED TIME PO Acetaminophen (TYLENOL) 650 MG Q4H PRN PRN PO Acetaminophen (TYLENOL) 650 MG Q4H PRN PRN RECTA L Dextrose/Water (DEXTROSE 10% IN WATER) 125 ML DIR PRN IV (CKD) Dextrose/Water (DEXTROSE 10% IN WATER) 250 ML DIR PRN IV (CKD) Glucagon (GLUCAGON) 1 MG ASDIR PRN IM Magnesium Sulfate (MAGNESIUM SULFATE 4GM/SWFI 10 0ML) 100 ML ASDIR PRN IV Magnesium Sulfate (MAGNESIUM SULFATE 2GM/SWFI 50 ML) 50 ML ASDIR PRN IV Magnesium Sulfate/Dextrose (MAGNESIUM SULFATE 1G M/D5W 100ML) 100 ML ASDIR PRN IV Ondansetron HCl (ZOFRAN) 4 MG Q6H PRN PRN IV Amiodarone HCl (CORDARONE) 200 MG DAILY PO Aspirin (ASPIRIN) 81 MG DAILY PO Clopidogrel Bisulfate (Plavix) 75 MG DAILY PO Atorvastatin Calcium (LIPITOR) 40 MG 2100 PO Metoprolol Tartrate (LOPRESSOR) 12.5 MG BID PO Prednisone (predniSONE) 1 MG TID PO Pantoprazole (PROTONIX) 40 MG DAILY PRN PO Tramadol HCl (ULTRAM) 25 MG Q6H PRN PO Physical Exam General appearance: sleeping comfortably Neck: full range of motion, non-tender, normal thyroid, supple/no meningismus, no bruit/NL carotids, no JVD, no lymphadenopathy , no masses or swelling Cardiovascular: CV assessment: regular rate and rhythm Respiratory: decreased breath sounds, no distres s Abdomen: non-tender, normal bowel sounds , no distention, no guarding, no mass/ organomegaly, no pulsatile mass, no rebound Upper extremity: UE assessment: normal capillary refill, no rafat a Lower extremity: LE assessment: normal capillary refill, no rafat a Diagnosis, Assessment Plan Free Text DxA P Notes Free Text DxA P Notes: 1. Coronary artery disease Status post coronary artery bypass graft surger y on 08/02/2022 2. Sternal wound drainage S/P wound surgery/debridement 3. Hypertension 4. Hyperlipidemia Electronically Signed by Denton Chaparro MD on at 0709 RPT #:[id number] END OF REPORT 2022-08-18 21:36:00-00:[address] [facility] ([facility]) Infect Disease Consult Note REPORT#:[id number] REPORT STATUS: Signed DATE:08/18/22 TIME: 2135 PATIENT: MARY DALY UNIT #: [id number] ROOM/BED: [place] [address] : 53 AGE: 66 SEX: M ATTEND: Siri Mccurdy MD ADM AUTHOR: Leo Durand MD * ALL edits or amendments must be made on the el [email or web address] document * History of Present Illness Requesting Clinician: Dr Mccurdy Reason for consult: Sternal wound infection HPI: This is a 58-year-old male patient with history of coronary artery disease status post CABG on the who presents to the hospital with drainage from his distal sternal wound along with chills On the he underwent debridement of the ster nal wound and wound VAC placement His cultures are growing Staph aureus. He has been started on cefazolin 2 g every 8. History - Adult longitudinal Past medical history: Reports: Coronary artery dis ease, Hypertension, Dyslipidemia, Prior CA, Steroid use. Additional medical history: Temproal arteritis (2017) Additional surgical history: Colon resection 2009 secondary to diverticulitis C3 surgery Family history: Reports: Heart disease (brother). Alcohol use: Alcohol use (1-7 drinks per week) Drug use: Denies recreational drugs Smoking status for patients 13 years old or olde r: Never Smoker Allergies: Coded Allergies: hydromorphone (From DILAUDID) (Severe, THROAT SW ELLS 07/27/22) crab (Intermediate, ITCHING, CHILLS 07/27/22) doxepin (Intermediate, AFFECTS MEMORY, INSOMNIA 07/27/22) oyster extract (Intermediate, ITCHING 07/27/22) tamsulosin (Intermediate, ABNORMAL EJACULATION, FLU SYMPTOMS, FEVER 07/27/22) dexlansoprazole (UNKOWN 07/27/22) eszopiclone (From LUNESTA) (UNKNOWN 07/27/22) levofloxacin (UNKNOWN 07/27/22) meperidine (UNKNOWN 07/27/22) doxycycline (Mild, CRAMPS 07/27/22) diclofenac (DIARRHEA 07/27/22) Uncoded Allergies: CRAWFISH (Severe, THROAT SWELLS 07/23/22) Review of Systems Free Text ROS Notes Free Text ROS Notes: 14 systems reviewed and negative apart from pert inent points in the HPI Objective Physical Exam General appearance: alert, awake Wound/incision: Location: Sternal wound dressing intact. Drain present Head/Eyes: atraumatic, clear cornea ENT: moist mucosal membranes, normal dentition Cardiovascular: normal heart sounds, no rub Respiratory: clear to auscultation, symmetric ex pansion Abdomen: non-tender, normal bowel sounds Extremities: moves all, normal capillary refill Musculoskeletal: full range of motion, normal in spection Results Findings/Data: Laboratory Tests 08/18 0408 Chemistry Sodium (134 - 147 mEq/L) 138 Potassium (3.4 - 5.0 mEq/L) 3.8 Chloride (100 - 108 mEq/L) 107 Carbon Dioxide (21 - 33 mEq/l) 25 Anion Gap (0 - 20) 10 BUN (7 - 18 mg/dL) 11 Creatinine (0.6 - 1.3 mg/dL) 0.8 Glomerular Filtr Rate (80 - 90) 96.4 H Glucose (70 - 110 mg/dL) 103 Calcium (8.0 - 10.5 mg/dL) 8.2 Magnesium (1.80 - 2.40 mg/dL) 2.06 Laboratory Tests 08/18 0408 Hematology WBC (4.5 - 11.0 x10 3/uL) 9.6 RBC (4.00 - 5.60 x10 6/uL) 3.01 L Hgb (12.5 - 16.9 g/dL) 8.8 L Hct (37.5 - 50.7 %) 28.3 L MCV (81.0 - 99.0 fL) 94.0 MCH (27.0 - 33.0 pg) 29.2 MCHC (33.0 - 37.0 g/dL) 31.1 L RDW (11.5 - 14.5 %) 16.0 H Plt Count (150 - 400 x10 3/uL) 591 H MPV (7.0 - 9.0 fL) 10.2 H Neut % (Auto) (56.0 - 77.0 %) 73.0 Lymph % (Auto) (14.0 - 32.0 %) 17.1 Stephenson % (Auto) (4.8 - 9.0 %) 8.3 Eos % (Auto) (0.3 - 3.7 %) 0.9 Baso % (Auto) (0.0 - 2.0 %) 0.2 Neut # (Auto) (2.0 - 7.6 x10 3/uL) 7.00 Lymph # (Auto) (1.0 - 3.8 x10 3/uL) 1.64 Stephenson # (Auto) (0.1 - 0.8 x10 3/uL) 0.80 Eos # (Auto) (0.0 - 0.2 x10 3/uL) 0.09 Baso # (Auto) (0.0 - 0.2 x10 3/uL) 0.02 Abs Immat Gran (auto) (0.00 - 0.03 x10 3/uL) 0. 05 H Add Manual Diff NO Immature Gran % (0.0 - 2.0 %) 0.5 Nucleated RBC % (0 - 0 %) 0.0 Nucleated RBCs # (Man) (0.0 - 0.1 x10 3/uL) 0.0 0 Diagnosis, Assessment Plan Free Text DxA P Notes Free text DxA P notes: 1-Sternal wound infection wi th MSSA status post debridement postoperative day #2 2-Coronary disease status post CABG 3-History of temporal arteritis 4-History of diverticulitis Recommendations Continue cefazolin at 2 g IV every 8 We will order PICC line placement and home IV an tibiotics via the infusion center followed by oral Keflex until com plete resolution of signs and symptoms of infection followed by a few months of suppres sive therapy as well Electronically Signed by Leo Durand MD on at 2142 RPT #:[id number] END OF REPORT 2022-08-18 16:43:00-00:00 [facility] REPORT#:[id number] REPORT STATUS: Signed DATE:08/18/22 TIME: 1642 PATIENT: MARY DALY UNIT #: [id number] ROOM/BED: 3353-1 : 53 AGE: 67 SEX: M ATTEND: Siri Mccurdy MD ADM AUTHOR: Ludin Mccurdy MD * ALL edits or amendments must be made on the el [employer]/computer document * General Post-op: day 2 (POD 1) Status post: 1. Debridement of the sternal wound. 2. Placement of wound VAC. Review of Systems Constitutional: Denies: chills, fatigue, generalized weakness. Skin: Denies: abrasion, bruising, ecchymosis. Allergy/Immun: Denies: allergic reaction, hives, rhinorrhea. Eyes: Denies: redness, visual loss/blurred, eye pain. Respiratory: Denies: PETERSEN (dyspnea on exertion), pleuritic javier n, productive cough (sputum). Cardiovascular: Denies: chest pain, palpitations. GI: Denies: abdominal pain, nausea, vomiting. : Denies: dysuria, flank pain. Musculoskeletal: Denies: arthritis, joint pain, neck pain. Heme: Denies: adenopathy, bleeding, petechiae. Endocrine: Denies: cold intolerance, heat intolerance, poly uria. Neuro: Denies: bladder dysfunction, seizure, syncope. Psych: Denies: anxiety, insomnia. All systems rev neg: except as marked Objective General VS/I O Last Documented: Result Date Time Pulse Ox 93 08/18 1500 B/P 144/75 08/18 1500 B/P Mean 103 08/18 1500 Pulse 65 08/18 1500 Resp 18 08/18 1500 Temp 36.7 08/18 1321 O2 Delivery Room air 08/18 0758 FiO2 21 08/17 1523 O2 Flow Rate 2 08/16 1400 24 hour I O ending at 0700: 08/18 0700 08/17 1900 Intake Total 480 820.00 Output Total 400 1050 Balance 80 -230.00 Intake, IV 100.00 Intake, Oral 480 720 Output, Urine 400 1050 Patient 84.822 kg Weight PATIENT WEIGHT: Weight (lb): 187 Weight (oz): 6.29 Weight (kg): 84.822 Dietitian Nutrition assessment The data set between the solid lines has been im ported from the dietitian's assessment. BMI Calculated: 26.8 Nutrition related diagnosis: Nutrition diagnosis details: Nutrition problem: Nutrition etiology: Nutrition signs and symptoms: Nutrition prescription: Dietitian name: Assessment completed: Physical Exam General appearance: alert, awake, oriented Wound/incision: Location: sternum Site condition: wound vac in place HEENT: anicteric, mucosal membranes moist, pupil s reactive to light Neck: full range of motion, non-tender Cardiovascular: normal heart sounds, regular rat e rhythm, wound vac in place to sternum Respiratory: aerating well, symmetric expansion, no distress Abdomen: soft, non-tender Genitourinary: guardado, urine Extremities: dry, moves all Musculoskeletal: full range of motion, painless range of motion Skin: dry, intact Psychiatry: normal affect, normal mood Current Medications Medications: Active Meds + DC'd Last 24 Hrs Sodium Chloride (SODIUM CHLORIDE) 10 ML BID IV Lidocaine HCl (LIDOCAINE 1% 5ML) 5 ML ONCE ONE L OCAL (DC) Sodium Chloride (SODIUM CHLORIDE) 10 ML ASDIR SD N IV Carboxymethylcellulose Sodium (REFRESH TEARS) 1 DROP QID EACH EYE Cefazolin Sodium (KEFZOL OR ANCEF) 2 GM Q8H IV Sodium Chloride (SODIUM CHLORIDE) 20 ML ASDIR IV Mupirocin (BACTROBAN 2% 22 GM OINTMENT) 1 APPLIC BID NASAL Polyethylene Glycol (MIRALAX) 17 GM DAILY PO Docusate Sodium (COLACE) 100 MG BID PO Sennosides (Senna Lax 8.6 MG TABLET) 17.2 MG BED TIME PO Acetaminophen (TYLENOL) 650 MG Q4H PRN PRN PO Acetaminophen (TYLENOL) 650 MG Q4H PRN PRN RECTA L Dextrose/Water (DEXTROSE 10% IN WATER) 125 ML DIR PRN IV (CKD) Dextrose/Water (DEXTROSE 10% IN WATER) 250 ML DIR PRN IV (CKD) Glucagon (GLUCAGON) 1 MG ASDIR PRN IM Magnesium Sulfate (MAGNESIUM SULFATE 4GM/SWFI 10 0ML) 100 ML ASDIR PRN IV Magnesium Sulfate (MAGNESIUM SULFATE 2GM/SWFI 50 ML) 50 ML ASDIR PRN IV Magnesium Sulfate/Dextrose (MAGNESIUM SULFATE 1G M/D5W 100ML) 100 ML ASDIR PRN IV Ondansetron HCl (ZOFRAN) 4 MG Q6H PRN PRN IV Amiodarone HCl (CORDARONE) 200 MG DAILY PO Aspirin (ASPIRIN) 81 MG DAILY PO Clopidogrel Bisulfate (Plavix) 75 MG DAILY PO Atorvastatin Calcium (LIPITOR) 40 MG 2100 PO Metoprolol Tartrate (LOPRESSOR) 12.5 MG BID PO Prednisone (predniSONE) 1 MG TID PO Pantoprazole (PROTONIX) 40 MG DAILY PRN PO Tramadol HCl (ULTRAM) 25 MG Q6H PRN PO Results Findings/Data: Laboratory Tests 08/18 0408 Chemistry Sodium (134 - 147 mEq/L) 138 Potassium (3.4 - 5.0 mEq/L) 3.8 Chloride (100 - 108 mEq/L) 107 Carbon Dioxide (21 - 33 mEq/l) 25 Anion Gap (0 - 20) 10 BUN (7 - 18 mg/dL) 11 Creatinine (0.6 - 1.3 mg/dL) 0.8 Glomerular Filtr Rate (80 - 90) 96.4 H Glucose (70 - 110 mg/dL) 103 Calcium (8.0 - 10.5 mg/dL) 8.2 Magnesium (1.80 - 2.40 mg/dL) 2.06 Laboratory Tests 08/18 0408 Hematology WBC (4.5 - 11.0 x10 3/uL) 9.6 RBC (4.00 - 5.60 x10 6/uL) 3.01 L Hgb (12.5 - 16.9 g/dL) 8.8 L Hct (37.5 - 50.7 %) 28.3 L MCV (81.0 - 99.0 fL) 94.0 MCH (27.0 - 33.0 pg) 29.2 MCHC (33.0 - 37.0 g/dL) 31.1 L RDW (11.5 - 14.5 %) 16.0 H Plt Count (150 - 400 x10 3/uL) 591 H MPV (7.0 - 9.0 fL) 10.2 H Neut % (Auto) (56.0 - 77.0 %) 73.0 Lymph % (Auto) (14.0 - 32.0 %) 17.1 Stephenson % (Auto) (4.8 - 9.0 %) 8.3 Eos % (Auto) (0.3 - 3.7 %) 0.9 Baso % (Auto) (0.0 - 2.0 %) 0.2 Neut # (Auto) (2.0 - 7.6 x10 3/uL) 7.00 Lymph # (Auto) (1.0 - 3.8 x10 3/uL) 1.64 Stephenson # (Auto) (0.1 - 0.8 x10 3/uL) 0.80 Eos # (Auto) (0.0 - 0.2 x10 3/uL) 0.09 Baso # (Auto) (0.0 - 0.2 x10 3/uL) 0.02 Abs Immat Gran (auto) (0.00 - 0.03 x10 3/uL) 0. 05 H Add Manual Diff NO Immature Gran % (0.0 - 2.0 %) 0.5 Nucleated RBC % (0 - 0 %) 0.0 Nucleated RBCs # (Man) (0.0 - 0.1 x10 3/uL) 0.0 0 Radiology data: Recent Impressions: RADIOLOGY - XR CHEST 1 V 08/18 0551 Report Impression - Status: SIGNED Entered: 08/18/2022 0830 IMPRESSION: No focal airspace disease. Impression By: [email or web address] - Colby Sawyer M.D. Results: labs reviewed, vital signs stable, ryth m personally rev'd, x-ray personally reviewed, current med profile rev'd Diagnosis, Assessment Plan Free Text A P: This is a 58-year-old gentleman with past medica l history of coronary artery disease status post coronary artery bypass graft CABG x 4 (MITCHELL-LAD, SVG-OM1, SVG-OM2, SVG-PDA)on 08/02/[address] Mccurdy. He has a history of temporal arteritis on chronic prednisone, diverticulitis, gout, hypertension, hyperlipidemia. His postop course, he did very well. Working wit h physical therapy. He was mobile, walking with PT OT. His wounds were vicenta n and dry. There was no drainage upon discharge. He was discharged on po stop day 7. He was discharged on 08/09/2022. He repor ts about 2 or 3 days ago he started to notice increased drainage in his distal sternal wound. He also reports having chills at night. The patient admits to not check ing his temperature. The patient denies any nause a or vomiting, denies any shortness of breath, does complain of right-sided chest wall pain. Patient is admitted for observation for sternal wound drainage Assessment/plan 1. Coronary artery disease Status post coronary artery bypass graft surger y on 08/02/2022 2. Sternal wound drainage Obtain CT noncontrast chest 3. Hypertension 4. Hyperlipidemia Patient will be admitted for investigation of st ernal wound drainage. Will obtain CT noncontrast of the chest. DVT studies of the lower extremities We will start IV antibiotics, routine labs. Further recommendations to follow 08/17/22 POD 1 08/18/22 Continue abx as per ID Wound care team to change wound vac Labs reviewed Transfer to [facility] at 2030 RPT #:[id number] END OF REPORT 2022-08-18 09:09:00-00:00 [facility] ([facility]) Clinical Note REPORT#:[id number] REPORT STATUS: Signed DATE:08/18/22 TIME: 908 PATIENT: MARY DALY UNIT #: [id number] ROOM/BED: [place] [address] : 53 AGE: 66 SEX: M ATTEND: Siri Mccurdy MD ADM AUTHOR: Leo Durand MD * ALL edits or amendments must be made on the el [email or web address] document * Clinical Note Note: CHART REVIEWED CONSULT TO FOLLOW Electronically Signed by Leo Durand MD on at 0909 RPT #:[id number] END OF REPORT 2022-08-18 06:54:00-00:00 [facility] ([facility]) Cardiology Progress Note REPORT#:[id number] REPORT STATUS: Signed DATE:08/18/22 TIME: 653 PATIENT: MARY DALY UNIT #: [id number] ROOM/BED: [place] [address] : 53 AGE: 66 SEX: M ATTEND: Siri Mccurdy MD ADM AUTHOR: Denton Chaparro MD * ALL edits or amendments must be made on the el [email or web address] document * Subjective Chief complaint: BETTER Objective General VS/I O: 24 hour I O ending at 0700: 08/18 0700 08/17 1900 Intake Total 480 820.00 Output Total 400 1050 Balance 80 -230.00 Intake, IV 100.00 Intake, Oral 480 720 Output, Urine 400 1050 Patient 84.822 kg Weight Vital Signs: Date Time Temp Pulse Resp B/P B/P Pulse O2 O2 F low FiO2 Mean Ox Delivery Rate 08/18 0600 60 19 166/74 107 96 08/18 0500 59 17 147/74 104 94 08/18 0400 97.8 08/18 0400 60 19 135/68 95 94 08/18 0300 61 21 147/71 102 92 08/18 0201 55 22 130/63 90 93 08/18 0100 54 19 133/65 93 93 08/18 0000 98.1 08/18 0000 57 19 135/62 89 91 08/17 2300 57 22 129/60 87 92 08/17 2201 59 21 130/62 89 93 08/17 2156 96 Room air 08/17 2102 59 23 150/69 99 95 08/17 2000 98.2 08/17 2000 59 24 127/65 91 08/17 1903 62 29 147/64 92 08/17 1600 98.0 08/17 1523 96 Room air 21 08/17 1401 56 22 140/64 92 97 08/17 1301 62 23 176/66 95 98 08/17 1200 53 24 153/70 101 99 08/17 1100 53 140/69 98 90 08/17 1000 55 133/65 93 98 08/17 0900 58 11 122/58 83 97 08/17 0800 98.0 08/17 0800 62 130/60 87 99 08/17 0704 54 122/61 84 97 PATIENT WEIGHT: Weight (lb): 187 Weight (oz): 6.29 Weight (kg): 84.822 Medications: Active Meds + DC'd Last 24 Hrs Carboxymethylcellulose Sodium (REFRESH TEARS) 1 DROP QID EACH EYE Cefazolin Sodium (KEFZOL OR ANCEF) 2 GM Q8H IV Sodium Chloride (SODIUM CHLORIDE) 20 ML ASDIR IV Mupirocin (BACTROBAN 2% 22 GM OINTMENT) 1 APPLIC BID NASAL Polyethylene Glycol (MIRALAX) 17 GM DAILY PO Docusate Sodium (COLACE) 100 MG BID PO Sennosides (Senna Lax 8.6 MG TABLET) 17.2 MG BED TIME PO Acetaminophen (TYLENOL) 650 MG Q4H PRN PRN PO Acetaminophen (TYLENOL) 650 MG Q4H PRN PRN RECTA L Dextrose/Water (DEXTROSE 10% IN WATER) 125 ML DIR PRN IV (CKD) Dextrose/Water (DEXTROSE 10% IN WATER) 250 ML A SDIR PRN IV (CKD) Glucagon (GLUCAGON) 1 MG ASDIR PRN IM Magnesium Sulfate (MAGNESIUM SULFATE 4GM/SWFI 10 0ML) 100 ML ASDIR PRN IV Magnesium Sulfate (MAGNESIUM SULFATE 2GM/SWFI 50 ML) 50 ML ASDIR PRN IV Magnesium Sulfate/Dextrose (MAGNESIUM SULFATE 1G M/D5W 100ML) 100 ML ASDIR PRN IV Ondansetron HCl (ZOFRAN) 4 MG Q6H PRN PRN IV Amiodarone HCl (CORDARONE) 200 MG DAILY PO Aspirin (ASPIRIN) 81 MG DAILY PO Clopidogrel Bisulfate (Plavix) 75 MG DAILY PO Atorvastatin Calcium (LIPITOR) 40 MG 2100 PO Metoprolol Tartrate (LOPRESSOR) 12.5 MG BID PO Prednisone (predniSONE) 1 MG TID PO Pantoprazole (PROTONIX) 40 MG DAILY PRN PO Piperacillin Sod/Tazobactam Sod (ZOSYN 3.375GM) 3.375 GM Q8H IV (DC) Sodium Chloride (SODIUM CHLORIDE 0.9% 100 ML) 1 00 ML Tramadol HCl (ULTRAM) 25 MG Q6H PRN PO Physical Exam General appearance: alert, awake Neck: full range of motion, non-tender, normal thyroid, supple/no meningismus, no bruit/NL carotids, no JVD, no lymphadenopathy , no masses or swelling Cardiovascular: CV assessment: regular rate and rhythm Respiratory: decreased breath sounds, no distres s Abdomen: non-tender, normal bowel sounds , no distention, no guarding, no mass/ organomegaly, no pulsatile mass, no rebound Upper extremity: UE assessment: normal capillary refill, no rafat a Lower extremity: LE assessment: normal capillary refill, no rafat a Results Findings/Data: Laboratory Tests 08/18 0408 Chemistry Sodium (134 - 147 mEq/L) 138 Potassium (3.4 - 5.0 mEq/L) 3.8 Chloride (100 - 108 mEq/L) 107 Carbon Dioxide (21 - 33 mEq/l) 25 Anion Gap (0 - 20) 10 BUN (7 - 18 mg/dL) 11 Creatinine (0.6 - 1.3 mg/dL) 0.8 Glomerular Filtr Rate (80 - 90) 96.4 H Glucose (70 - 110 mg/dL) 103 Calcium (8.0 - 10.5 mg/dL) 8.2 Magnesium (1.80 - 2.40 mg/dL) 2.06 Laboratory Tests 08/18 0408 Hematology WBC (4.5 - 11.0 x10 3/uL) 9.6 RBC (4.00 - 5.60 x10 6/uL) 3.01 L Hgb (12.5 - 16.9 g/dL) 8.8 L Hct (37.5 - 50.7 %) 28.3 L MCV (81.0 - 99.0 fL) 94.0 MCH (27.0 - 33.0 pg) 29.2 MCHC (33.0 - 37.0 g/dL) 31.1 L RDW (11.5 - 14.5 %) 16.0 H Plt Count (150 - 400 x10 3/uL) 591 H MPV (7.0 - 9.0 fL) 10.2 H Neut % (Auto) (56.0 - 77.0 %) 73.0 Lymph % (Auto) (14.0 - 32.0 %) 17.1 Stephenson % (Auto) (4.8 - 9.0 %) 8.3 Eos % (Auto) (0.3 - 3.7 %) 0.9 Baso % (Auto) (0.0 - 2.0 %) 0.2 Neut # (Auto) (2.0 - 7.6 x10 3/uL) 7.00 Lymph # (Auto) (1.0 - 3.8 x10 3/uL) 1.64 Stephenson # (Auto) (0.1 - 0.8 x10 3/uL) 0.80 Eos # (Auto) (0.0 - 0.2 x10 3/uL) 0.09 Baso # (Auto) (0.0 - 0.2 x10 3/uL) 0.02 Abs Immat Gran (auto) (0.00 - 0.03 x10 3/uL) 0. 05 H Add Manual Diff NO Immature Gran % (0.0 - 2.0 %) 0.5 Nucleated RBC % (0 - 0 %) 0.0 Nucleated RBCs # (Man) (0.0 - 0.1 x10 3/uL) 0.0 0 Laboratory Tests 08/18 0408 Chemistry Magnesium (1.80 - 2.40 mg/dL) 2.06 Radiology data: Recent Impressions: RADIOLOGY - XR CHEST 1 V 08/17 0659 Report Impression - Status: SIGNED Entered: 08/17/2022 0803 IMPRESSION: 1. Mildly improved left mid-lower lung field opa cities. 2. Right perihilar interstitial opacities may be slightly increased. Impression By: Lewis - Allan Diana M.D. Results: echo personally reviewed Diagnosis, Assessment Plan Free Text DxA P Notes Free Text DxA P Notes: 1. Coronary artery disease Status post coronary artery bypass graft surger y on 08/02/2022 2. Sternal wound drainage S/P wound surgery/debridement 3. Hypertension 4. Hyperlipidemia Electronically Signed by Denton Chaparro MD on at 0655 RPT #:[id number] END OF REPORT 2022-08-17 09:46:00-00:00 [facility]g REPORT#:[id number] REPORT STATUS: Signed DATE:08/17/22 TIME: 09 PATIENT: MARY DALY UNIT #: [id number] ROOM[facility]ED: [facility] : 53 AGE: 67 SEX: M ATTEND: Siri Mccurdy MD ADM AUTHOR: Rosalind Mendez Physic * ALL edits or amendments must be made on the el [employer]ronic/computer document * General Post-op: day 1 (POD 1) Status post: 1. Debridement of the sternal wound. 2. Placement of wound VAC. Diagnosis, Assessment Plan Free Text A P: This is a 58-year-old gentleman with past medica l history of coronary artery disease status post coronary artery bypass graft CABG x 4 (MITCHELL-LAD, SVG-OM1, SVG-OM2, SVG-PDA)on 08/02/[address] Mccurdy. He has a history of temporal arteritis on chronic prednisone, diverticulitis, gout, hypertension, hyperlipidemia. His postop course, he did very well. Working wit h physical therapy. He was mobile, walking with PT OT. His wounds were vicenta n and dry. There was no drainage upon discharge. He was discharged on po stop day 7. He was discharged on 08/09/2022. He repor ts about 2 or 3 days ago he started to notice increased drainage in his distal sternal wound. He also reports having chills at night. The patient admits to not check ing his temperature. The patient denies any nause a or vomiting, denies any shortness of breath, does complain of right-sided chest wall pain. Patient is admitted for observation for sternal wound drainage Assessment/plan 1. Coronary artery disease Status post coronary artery bypass graft surger y on 08/02/2022 2. Sternal wound drainage Obtain CT noncontrast chest 3. Hypertension 4. Hyperlipidemia Patient will be admitted for investigation of st ernal wound drainage. Will obtain CT noncontrast of the chest. DVT studies of the lower extremities We will start IV antibiotics, routine labs. Further recommendations to follow 08/17/22 POD 1 1. Debridement of the sternal wound. 2. Placement of wound VAC AAO x 3, denies complaints. Cardiac: Sinus rhytm. Respiratory: 97% on room air. GI: continue home Bowel regimen. ON IV abx. Consult wound care Nurse. ID consulted Continue home low dose steroid for hx of tempora l arteritis. Patient was seen and examined by Dr Mccurdy. at 0654 at 2030 RPT #:[id number] END OF REPORT 2022-08-17 07:08:00-00:00 [facility] Cardiology Progress Note REPORT#:[id number] REPORT STATUS: Signed DATE:08/17/22 TIME: 07 PATIENT: MARY DALY UNIT #: [id number] [address]BED: [address] : 53 AGE: 66 SEX: M ATTEND: Siri Mccurdy MD ADM AUTHOR: Denton Chaparro MD * ALL edits or amendments must be made on the [employer]/computer document * Subjective Chief complaint: BETTER Objective General VS/I O: 24 hour I O ending at 0700: 08/17 0700 08/16 1900 Intake Total 1027.00 200.00 Output Total 1075 Balance -48.00 200.00 Intake, IV 197.00 200.00 Intake, Oral 480 Intake, 350 Packed Cells Number Voids 1 Output, Urine 1075 Patient 85 kg Weight Weight Bed scale Measurement Method Vital Signs: Date Time Temp Pulse Resp B/P B/P Pulse O2 O2 Flow FiO2 Mean Ox Delivery Rate 08/17 0600 58 16 105/54 75 95 08/17 0500 61 20 117/59 83 95 08/17 0400 60 18 118/56 78 93 08/17 0300 63 29 108/53 77 94 08/17 0200 60 19 108/56 76 93 08/17 0100 54 18 107/59 80 95 08/17 0003 60 19 111/56 77 95 08/17 0000 97.8 08/16 2300 65 38 107/58 80 93 08/16 2209 64 20 111/52 75 93 08/16 2100 98.6 66 26 107/57 85 08/17 1999 99.1 08/17 1999 99.1 69 26 100/50 93 08/16 1900 98.9 72 25 116/58 93 08/16 1837 97.8 08/16 1815 71 25 130/63 90 93 08/16 1812 98.2 74 13 120/60 0.0 94 Room air 08/16 1719 98.2 68 20 134/65 0.0 95 Room air 08/16 1415 72 15 136/65 97 Room air 08/16 1400 72 13 136/65 96 Nasal 2 cannula 08/16 1345 72 16 131/63 97 Nasal 2 cannula 08/16 1332 Nasal 2 cannula 08/16 1330 70 16 130/65 96 Nasal 2 cannula 08/16 1320 70 18 136/66 99 Nasal 2 cannula 08/16 1315 72 16 137/66 92 Room air 08/16 1310 72 14 134/68 92 Room air 08/16 1305 72 13 139/65 93 Room air 08/16 1300 70 13 134/59 100 Simple mask 08/16 1256 97.5 70 12 131/65 100 Simple 6 mask 08/16 0709 99.9 75 24 138/63 0.0 93 Room air PATIENT WEIGHT: Weight (lb): 187 Weight (oz): 6.29 Weight (kg): 85.000 Medications: Active Meds + DC'd Last 24 Hrs Polyethylene Glycol (MIRALAX) 17 GM DAILY PO Docusate Sodium (COLACE) 100 MG BID PO Sennosides (Senna Lax 8.6 MG TABLET) 17.2 MG BED TIME PO Acetaminophen (TYLENOL) 650 MG Q4H PRN PRN PO Acetaminophen (TYLENOL) 650 MG Q4H PRN PRN RECTA L Dextrose/Water (DEXTROSE 10% IN WATER) 125 ML DIR PRN IV (CKD) Dextrose/Water (DEXTROSE 10% IN WATER) 250 ML DIR PRN IV (CKD) Glucagon (GLUCAGON) 1 MG ASDIR PRN IM Magnesium Sulfate (MAGNESIUM SULFATE 4GM/SWFI 10 0ML) 100 ML ASDIR PRN IV Magnesium Sulfate (MAGNESIUM SULFATE 2GM/SWFI 50 ML) 50 ML ASDIR PRN IV Magnesium Sulfate/Dextrose (MAGNESIUM SULFATE 1G M/D5W 100ML) 100 ML ASDIR PRN IV Ondansetron HCl (ZOFRAN) 4 MG Q6H PRN PRN IV Sugammadex Sodium (BRIDION) 0 .STK-MED ONE IV (D C) Propofol (DIPRIVAN 200MG/20ML INJECTION) 20 ML . STK-MED ONE IV (DC) Dexamethasone Sodium Phosphate (DECADRON) 0 .STK -MED ONE .ROUTE (DC) Fentanyl Citrate (SUBLIMAZE) 0 .STK-MED ONE .ROU TE (DC) Lidocaine HCl (XYLOCAINE) 0 .STK-MED ONE .ROUTE (DC) Norepinephrine Bitartrate (LEVOPHED BITARTATE) 0 .STK-MED ONE IV (DC) Ondansetron HCl (ZOFRAN) 0 .STK-MED ONE .ROUTE ( DC) Rocuronium [place] (ZEMURON) 0 .STK-MED ONE IV ( DC) Sodium Chloride (SODIUM CHLORIDE 0.9%) 250 ML .S TK-MED ONE IV (DC) Vancomycin HCl (VANCOMYCIN HCL) 0 .STK-MED ONE . ROUTE (DC) Amiodarone HCl (CORDARONE) 200 MG DAILY PO Aspirin (ASPIRIN) 81 MG DAILY PO Clopidogrel Bisulfate (Plavix) 75 MG DAILY PO Atorvastatin Calcium (LIPITOR) 40 MG 2100 PO Metoprolol Tartrate (LOPRESSOR) 12.5 MG BID PO Prednisone (predniSONE) 1 MG TID PO Pantoprazole (PROTONIX) 40 MG DAILY PRN PO Piperacillin Sod/Tazobactam Sod (ZOSYN 3.375GM) 3.375 GM Q8H IV Sodium Chloride (SODIUM CHLORIDE 0.9% 100 ML) 1 00 ML Tramadol HCl (ULTRAM) 25 MG Q6H PRN PO Acetaminophen (TYLENOL) 650 MG Q4H PRN PRN PO (D C) Ondansetron HCl (ZOFRAN) 4 MG Q6H PRN PRN IV (DC ) Physical Exam General appearance: alert, awake Neck: full range of motion, non-tender, normal thyroid, supple/no meningismus, no bruit/NL carotids, no JVD, no lymphadenopathy , no masses or swelling Cardiovascular: CV assessment: regular rate and rhythm Respiratory: decreased breath sounds, no distres s Abdomen: non-tender, normal bowel sounds , no distention, no guarding, no mass/ organomegaly, no pulsatile mass, no rebound Upper extremity: UE assessment: normal capillary refill, no rafat a Lower extremity: LE assessment: normal capillary refill, no rafat a Results Findings/Data: Laboratory Tests 08/16 1402 Chemistry Sodium (134 - 147 mEq/L) 138 Potassium (3.4 - 5.0 mEq/L) 3.5 Chloride (100 - 108 mEq/L) 108 Carbon Dioxide (21 - 33 mEq/l) 23 Anion Gap (0 - 20) 10 BUN (7 - 18 mg/dL) 11 Creatinine (0.6 - 1.3 mg/dL) 0.7 Glomerular Filtr Rate (80 - 90) 100.4 H Glucose (70 - 110 mg/dL) 86 Calcium (8.0 - 10.5 mg/dL) 7.1 L Magnesium (1.80 - 2.40 mg/dL) 1.95 Laboratory Tests 08/17 08/16 08/16 08/16 0503 2221 1614 1402 Hematology WBC (4.5 - 11.0 x10 3/uL) 12.8 H 13.0 H 12.6 H 9.9 RBC (4.00 - 5.60 x10 6/uL) 2.91 L 2.88 L 2.60 L 1.95 L Hgb (12.5 - 16.9 g/dL) 8.6 L 8.6 L 7.7 L 6.0 *L Hct (37.5 - 50.7 %) 26.4 L 26.3 L 23.9 L 18.5 L MCV (81.0 - 99.0 fL) 90.7 91.3 91.9 94.9 MCH (27.0 - 33.0 pg) 29.6 29.9 29.6 30.8 MCHC (33.0 - 37.0 g/dL) 32.6 L 32.7 L 32.2 L 32 .4 L RDW (11.5 - 14.5 %) 15.7 H 15.2 H 14.6 H 14.8 H Plt Count (150 - 400 x10 3/uL) 575 H 564 H 562 H 417 H MPV (7.0 - 9.0 fL) 10.1 H 10.1 H 9.9 H 10.0 H Neut % (Auto) (56.0 - 77.0 %) 81.5 H 84.7 H 87. 5 H 80.8 H Lymph % (Auto) (14.0 - 32.0 %) 9.1 L 7.1 L 5.2 L 6.2 L Stephenson % (Auto) (4.8 - 9.0 %) 8.8 7.5 6.3 10.8 H Eos % (Auto) (0.3 - 3.7 %) 0.0 L 0.0 L 0.2 L 1. 0 Baso % (Auto) (0.0 - 2.0 %) 0.2 0.1 0.2 0.3 Neut # (Auto) (2.0 - 7.6 x10 3/uL) 10.43 H 11.0 2 H 11.07 H 8.01 H Lymph # (Auto) (1.0 - 3.8 x10 3/uL) 1.16 0.92 L 0.66 L 0.61 L Stephenson # (Auto) (0.1 - 0.8 x10 3/uL) 1.12 H 0.98 H 0.79 1.07 H Eos # (Auto) (0.0 - 0.2 x10 3/uL) 0.00 0.00 0.0 2 0.10 Baso # (Auto) (0.0 - 0.2 x10 3/uL) 0.02 0.01 0. 03 0.03 Abs Immat Gran (auto) (0.00 - 0.03 0.05 H 0.08 H 0.07 H 0.09 H x10 3/uL) Add Manual Diff NO NO NO NO Immature Gran % (0.0 - 2.0 %) 0.4 0.6 0.6 0.9 Nucleated RBC % (0 - 0 %) 0.0 0.0 0.0 0.0 Nucleated RBCs # (Man) (0.0 - 0.1 x10 3/uL) 0.0 0 0.00 0.00 0.00 Laboratory Tests 08/16 1402 Chemistry Magnesium (1.80 - 2.40 mg/dL) 1.95 Radiology data: Recent Impressions: RADIOLOGY - XR CHEST 1 V 08/16 1450 Report Impression - Status: SIGNED Entered: 08/16/2022 1548 IMPRESSION: . Low lung volumes, hypoventilation. Pleuroparenchymal opacities obscure the left luna g base, lower lobe region. No pneumothorax. Impression By: [email or web address] - Jolene Flaherty Diagnosis, Assessment Plan Free Text DxA P Notes Free Text DxA P Notes: 1. Coronary artery disease Status post coronary artery bypass graft surger y on 08/02/2022 2. Sternal wound drainage S/P wound surgery/debridement 3. Hypertension 4. Hyperlipidemia Electronically Signed by Denton Chaparro MD on at 0709 RPT #:[id number] END OF REPORT 2022-08-16 19:24:00-00:00 [id number] [place] [address] PATIENT NAME: MARY DALY ADMIT DATE: 08/16/22 ACCOUNT NO: [id number] ROOM NO: [id number] AGE: 66 REPORT TYPE: OPERATIVE REPORT SEX: M ADMITTING PHYSICIAN:Lduin Mccurdy MD ATTENDING PHYSICIAN:Ludin Mccurdy MD OPERATION DATE: 08/16/2022 PREOPERATIVE DIAGNOSIS: Sternal wound dehiscence . POSTOPERATIVE DIAGNOSIS: Sternal wound dehiscenc e. OPERATION: 1. Debridement of the sternal wound. 2. Placement of wound VAC. SURGEON: Ludin Mccurdy M.D. ROLL TABLE OPERATOR: None. ANESTHESIA: General endotracheal anesthesia. ANESTHESIOLOGIST: Dr. Torres. ESTIMATED BLOOD LOSS: 2 mL. INDICATIONS: Mr. Daly is a 66-year-old gentlem an, 10 days status post coronary artery bypass graft surgery, patient is on chronic steroid therapy for temporal arteritis. He was discharged to home . He presented to the ER yesterday with some drainage from the wound. CT scan of the chest did not show any evidence of mediast initis. After due preop counseling, the patient was brought to the operating room today for debridement of the wound and placement of wound VAC. FINDINGS: 1. There was dehiscence of the lower end of the wound for about 1 cm. I removed the lower end of the wound. 2. There was no evidence of any purulent materia l. 3. On probing, the wound went in fascia deep. DESCRIPTION OF PROCEDURE: Mr Nicolette Daly was identified in the preoperative holding area and brought to the OR and placed supine on the operating table. After induction of anesthesia, the chest was p repped and draped in standard surgical fashion. A culture swab was obtained from the wo und. I removed subcuticular sutures, curetted the wound and the edges of the wound were debrided. Next, using a curette, the unhealthy tissue was remove d following which the size of the wound was 5 cm x 2 cm x 1 cm. Next, hemostas is was achieved and the wound PATIENT NAME: MARY DALY 5 VAC was placed. The patient was extubated in the operating room and moved to PACU in stable condition. Dictated By: Ludin Mccurdy MD Date Dictated: 08/16/2022 19:24:54 Date Transcribed: 08/16/2022 22:41:00 AC/AMS Receipt ID: [id number] Authenticated by Kenneth Mccurdy MD On 023 05:42:13 PM at 0542 PATIENT NAME: MARY DALY 5 2022-08-16 19:19:00-00:00 [facility] ([facility]) Brief Op Note REPORT#:[id number] REPORT STATUS: Signed DATE:08/16/22 TIME: 1918 PATIENT: MARY DALY UNIT #: [id number] ROOM/BED: [place] [address] : 53 AGE: 66 SEX: M ATTEND: Siri Mccurdy MD ADM AUTHOR: Ludin Mccurdy * ALL edits or amendments must be made on the el [employer]/computer document * Op/Inv Proc Note - Brief Pre-procedure diagnosis: Sternal wound dehesence Post-procedure diagnosis: same as pre procedure dx Procedures performed: Debridement of wound placement of woumd vac Primary Surgeon: Calli Tape Machine Tailer(s): none Findings: following debribement the wound measured 5 cm x 2 cm x 1 cm, fascia deep Complications: none Estimated blood loss in ml's: 2 cc Specimens removed/altered: culture swab at 1921 RPT #:[id number] END OF REPORT 2022-08-16 18:03:00-00:00 [id number] [place] [address] PATIENT NAME: MARY DALY ADMIT DATE: 08/16/22 ACCOUNT NO: [id number] ROOM NO: [facility] [place] AGE: 66 REPORT TYPE: eECHOCARDIOGRAM REPORT SEX: M ADMITTING PHYSICIAN:Ludin Mccurdy MD ATTENDING PHYSICIAN:Ludin Mccurdy MD *[facility]* [address] [place] [address] Transthoracic Echocardiogram Patient: Mary Daly Study Date: 08/16/2022 BP: 126 / 64 Location: [facility] URN: [id number] : 1955 Age: 66 Height: 70 in / 177.8 cm Gender: M Weight: 187 .6 lb / 85.3 kg BMI/BSA: 27 kg/m 2 / 2.03 m 2 *Ordering Physician: * Ludin Mccurdy MD *Interpreting Physician: * Denton Chaparro MD *Irrigation District Manager: Amada Franklin Indications: EVALUATE FUNCTION. Study data: Transthoracic echocardiogram. Proced ure: Transthoracic echocardiography was performed. Image quality wa s adequate. Complete 2D, complete spectral Doppler, and color Doppler . Location: Bedside. Patient status: Inpatient. Patient room number: 3343. Study status: Routine. Findings Left ventricle: The cavity size is normal. Wall thickness is mildly increased. Systolic function is at the lower amin its of normal. The estimated ejection fraction is 50-54%. Wall jason on is normal; there are no regional wall motion abnormalities. Doppler p arameters are consistent with abnormal left ventricular relaxation (grade 1 diastolic dysfunction). PATIENT NAME: MARY DALY 5 Right ventricle: The cavity size is normal. Syst olic function is normal. Left atrium: The atrium is moderately to severel y dilated. Right atrium: The atrium is normal in size. Aorta: Aortic root: The aortic root is normal in size. Aortic valve: The valve is trileaflet. Thickenin g, consistent with sclerosis. There is no evidence of stenosis. The re is no regurgitation. Mitral valve: The annulus is mildly calcified. T here is no evidence of stenosis. There is trivial regurgitation. Tricuspid valve: The valve is structurally jessica l. There is mild regurgitation. Pulmonic valve: The valve is structurally normal . The leaflets are normal thickness. There is trivial regurgitation . Pericardium: There is no pericardial effusion. Pulmonary arteries: Main pulmonary artery: The artery is of normal s ize. Systemic veins: Inferior vena cava: The vessel is normal in size . Measurements Left ventricle Value 08/09/2022 Ref CHRIS, LAX 4.8 cm 5.1 4.2 - 5.8 ESD, LAX 3.5 cm 3.7 2.5 - 4.0 ESD/bsa, 1.7 cm/m 2 1.8 1.3 LAX - 2.1 FS, LAX 26 % 27 25 - 43 ESD/bsa 3.3 cm/m 2 3.0 ---- major ax, A4C CHRIS/bsa 3.3 cm/m 2 3.0 ---- minor ax, A4C CHRIS major 7.7 cm 7.8 ---- ax, A2C CHRIS/bsa 3.8 cm/m 2 3.8 ---- major ax, A2C PW, ED 1.2 cm 0.9 0.6 - 1.0 IVS/PW, ED 0.97 1.03 ---- EF 51 % 52 52 - 72 E', lat 15.5 cm/sec 9.2 >=10 nika, TDI .0 PATIENT NAME: MARY DALY 5 E/e', lat 7 9 ---- nika, TDI E', med 10.4 cm/sec 7.6 >=7. nika, TDI 0 E/e', med 11 11 ---- nika, TDI E', avg, 13.0 cm/sec 8.4 ---- TDI E/e', avg, 9 10 <=14 TDI LVOT Value 08/09/2022 Ref Diam, S 2.05 cm 2.03 ---- Area 3.3 cm 2 3.2 ---- Peak edilberto, S 1.22 m/sec 1.17 ---- Mean edilberto, S 0.74 m/sec 0.76 ---- VTI, S 25.1 cm 21.4 ---- Peak grad, 6 mm Hg 5 ---- S Mean grad, 3 mm Hg 3 ---- S SV 82 ml 69 ---- Qs 5.78 L/min 4.54 ---- Qs/bsa 2.8 L/(min-m 2) 2.2 ---- SV/bsa 41 ml/m 2 34 ---- Ventricular septum Value 08/09/2022 Ref IVS, ED 1.2 cm 0.9 0.6 - 1.0 Right ventricle Value 08/09/2022 Ref CHRIS, LAX 2.9 cm 3.0 ---- Pressure, S 37 mm Hg ---- RVOT Value 08/09/2022 Ref Peak v, S 0.83 m/sec ---- Peak grad, 3 mm Hg ---- S Left atrium Value 08/09/2022 Ref Vol/bsa, 39 ml/m 2 24 12 - ES, 1-p A4C 37 Vol, ES, 99 ml 57 ---- 2-p Vol/bsa, 49 ml/m 2 28 16 - ES, 2-p 34 Vol/bsa, 42 ml/m 2 25 16 - ES, A/L 34 AP dim, ES 3.0 cm 3.0 MM - 4.0 LA/Ao root 0.79 ---- ratio, MM PATIENT NAME: MARY DALY 5 Aortic valve Value 08/09/2022 Ref Leaflet 1.78 cm ---- sep, MM Peak v, S 1.72 m/sec 1.55 ---- Mean v, S 1.1 m/sec 1.05 ---- VTI, S 31.0 cm 26.8 ---- Mean grad, 5.6 mm Hg 5.2 ---- S Peak grad, 11.8 mm Hg 9.7 ---- S LVOT/AV, 0.81 0.8 ---- VTI ratio RICHARD, VTI 2.66 cm 2 2.59 ---- LVOT/AV, 0.71 0.75 ---- Vpeak ratio RICHARD, Vmax 2.32 cm 2 2.44 ---- Mitral valve Value 08/09/2022 Ref E-septal 0.9 cm ---- separation E-F slope 0.1 m/sec ---- Peak E 0.13 m/sec 0.84 ---- Peak A 0.68 m/sec 0.72 ---- Decel time 171 ms 184 ---- PHT 50 ms 57 ---- Peak E/A 1.67 1.17 ---- ratio MVA, PHT 4.4 cm 2 3.9 ---- Pulmonic valve Value 08/09/2022 Ref SD v, ED 0.7 m/sec 0.65 ---- Tricuspid valve Value 08/09/2022 Ref TR peak v 2.58 m/sec 1.18 <=2. 8 Peak RV-RA 27 mm Hg 6 ---- grad, S Aortic root Value 08/09/2022 Ref Root diam, 3.86 cm ---- ED MM Pulmonary artery Value 08/09/2022 Ref Pressure, S 32.4 mm Hg ---- Systemic veins Value 08/09/2022 Ref Estimated 10 mm Hg ---- CVP Conclusions Summary: PATIENT NAME: MARY DALY 5 1. Left ventricle: The cavity size is normal. Wa ll thickness is mildly increased. Systolic function is at the lower li mits of normal. The estimated ejection fraction is 50-54%. Wall mot ion is normal; there are no regional wall motion abnormalities. Dopp ler parameters are consistent with abnormal left ventricular relax ation (grade 1 diastolic dysfunction). 2. Right ventricle: The RV pressure during systo le by Doppler is 37 mm Hg. 3. Left atrium: The atrium is moderately to aurora rely dilated. 4. Aortic valve: Thickening, consistent with scl erosis. 5. Mitral valve: The annulus is mildly calcified . There is trivial regurgitation. 6. Tricuspid valve: There is mild regurgitation. 7. Pericardium, extracardiac: There is no perica rdial effusion. Prepared and electronically signed by Denton Chaparro MD 08/16/2022 18:03 Electronically Signed by Denton Chaparro MD on 0 08/16/22 at 1803 PATIENT NAME: MARY DALY 5 2022-08-15 12:52:00-00:00 [facility] History Physical - Adult REPORT#:[id number] REPORT STATUS: Signed DATE:08/15/22 TIME: 1252 PATIENT: MARY DALY UNIT #: [id number] ROOM/BED: 3343-1 : 53 AGE: 66 SEX: M ATTEND: Siri Mccurdy MD ADM AUTHOR: Rosalind Mendez Physic * ALL edits or amendments must be made on the el [employer]/computer document * Rosalind Mendez 08/15/22 1252: History of Present Illness HPI Chief complaint: Sternal Drainage HPI: This is a 58-year-old gentleman with past medica l history of coronary artery disease status post coronary artery bypass graft CABG x 4 (MITCHELL-LAD, SVG-OM1, SVG-OM2, SVG-PDA)on 08/02/[address] Mccurdy. He has a history of temporal arteritis on chronic prednisone, diverticulitis, gout, hypertension, hyperlipidemia. His postop course, he did very well. Working wit h physical therapy. He was mobile, walking with PT OT. His wounds were vicenta n and dry. There was no drainage upon discharge. He was discharged on po stop day 7. He was discharged on 08/09/2022. He repor ts about 2 or 3 days ago he started to notice increased drainage in his distal sternal wound. He also reports having chills at night. The patient admits to not check ing his temperature. The patient denies any nause a or vomiting, denies any shortness of breath, does complain of right-sided chest wall pain. Patient is admitted for observation for sternal wound drainage History Past medical history: Reports: Coronary artery dis ease, Hypertension, Dyslipidemia, Prior CA, Steroid use. Additional medical history: Temproal arteritis (2017) Additional surgical history: Colon resection 2009 secondary to diverticulitis C3 surgery Family history: Reports: Heart disease (brother). Alcohol use: Alcohol use (1-7 drinks per week) Drug use: Denies recreational drugs Smoking status for patients 13 years old or olde r: Never Smoker Medication/Allergy-Vaccine Hx Allergies: Coded Allergies: hydromorphone (From DILAUDID) (Severe, THROAT SW ELLS 07/27/22) crab (Intermediate, ITCHING, CHILLS 07/27/22) doxepin (Intermediate, AFFECTS MEMORY, INSOMNIA 07/27/22) oyster extract (Intermediate, ITCHING 07/27/22) tamsulosin (Intermediate, ABNORMAL EJACULATION, FLU SYMPTOMS, FEVER 07/27/22) dexlansoprazole (UNKOWN 07/27/22) eszopiclone (From LUNESTA) (UNKNOWN 07/27/22) levofloxacin (UNKNOWN 07/27/22) meperidine (UNKNOWN 07/27/22) doxycycline (Mild, CRAMPS 07/27/22) diclofenac (DIARRHEA 07/27/22) Uncoded Allergies: CRAWFISH (Severe, THROAT SWELLS 07/23/22) Review of Systems Unable to obtain due to: Constitutional: Negative for fever, positive for chills, weight loss Skin: Negative for rash, negative for swelling n egative for any laceration HEENT: Denies hearing loss d enies any ear ringing denies any earache denies any sore throat denies any throat pain Respiratory: Denies dyspnea on exertion denies h emoptysis denies any cough denies any shortness of breath Cardiac: Positive for chest pain with coughing GI: Denies constipation denies diarrhea : Denies hematuria denies dysuria denies flank pain Musculoskeletal: Denies any joint pain denies an y joint swelling denies any myalgia Hematologic: Denies any easy bruising, denies an y bleeding Endocrine: denies any night sweats, denies polyu sunil polydipsia Neurologic: Denies any lightheaded denies any he adache denies any confusion denies any dizziness Physical Exam VS/I O Vital Signs: Date Time Temp Pulse Resp B/P B/P Pulse O2 O2 F low FiO2 Mean Ox Delivery Rate 08/15 1223 98.5 72 18 144/67 92 98 Room air PATIENT WEIGHT: Weight (lb): Weight (oz): Weight (kg): 86.364 General appearance: alert, awake, oriented ENT: moist mucosal membranes Neck: full range of motion, non-tender Cardiovascular: normal capillary refill, BP/puls es equal bilat. Respiratory: clear to auscultation, no distress, aerating well Abdomen/GI: soft, non-tender Extremities: moves all, no edema-all extremities Neuro/INSURANCE WRITER: alert, oriented X 3 Skin: Distal Sternal wound with serous drianage. No popping or clicking. No redenss. Diagnosis, Assessment Plan Free Text DxA P Notes Free Text DxA P Notes: This is a 58-year-old gentleman with past medica l history of coronary artery disease status post coronary artery bypass graft CABG x 4 (MITCHELL-LAD, SVG-OM1, SVG-OM2, SVG-PDA)on 08/02/[address] Mccurdy. He has a history of temporal arteritis on chronic prednisone, diverticulitis, gout, hypertension, hyperlipidemia. His postop course, he did very well. Working wit h physical therapy. He was mobile, walking with PT OT. His wounds were vicenta n and dry. There was no drainage upon discharge. He was discharged on po stop day 7. He was discharged on 08/09/2022. He repor ts about 2 or 3 days ago he started to notice increased drainage in his distal sternal wound. He also reports having chills at night. The patient admits to not check ing his temperature. The patient denies any nause a or vomiting, denies any shortness of breath, does complain of right-sided chest wall pain. Patient is admitted for observation for sternal wound drainage Assessment/plan 1. Coronary artery disease Status post coronary artery bypass graft surger y on 08/02/2022 2. Sternal wound drainage Obtain CT noncontrast chest 3. Hypertension 4. Hyperlipidemia Patient will be admitted for investigation of st ernal wound drainage. Will obtain CT noncontrast of the chest. DVT studies of the lower extremities We will start IV antibiotics, routine labs. Further recommendations to follow Ludin Mccurdy 08/16/22 0729: Attestations Physician Attestation Agree w/findings plan: I have seen and examined Mr Daly. I agree with the findings and plan as documented by LINH Bello. at 1306 at 0733 RPT #:[id number] END OF REPORT 2022-08-15 12:31:00-00:[address] [facility] ([facility]) EMERGENCY PROVIDER REPORT REPORT#:[id number] REPORT STATUS: Signed DATE:08/15/22 TIME: 1231 PATIENT: MARY DALY UNIT #: [id number] ROOM/BED: 3343-1 AGE: 66 SEX: M PCP PHYS: Albino Torre MD SERVICE AUTHOR: Jaden Rodgers * ALL edits or amendments must be made on the el [employer]/computer document * HPI-Recheck W/B/S Free Text HPI Notes Free Text HPI Notes 66-year-old man, history of CAD, recent CABG wit h Dr. Mccurdy on 08/02/2022. Here for evaluation of wound drainage an d its been present for the last 3 to 4 days. Patient reports subjective chills since th e operation, not reported to have discharge from the wound after leaving the hospital. Reports right-sided chest pain that has been present for several day s, unchanged, no association with movement, exertion. Linh greenfield has been able to walk without reproduction of any pain. No reported redness, reports t hin yellow fluid, not purulent. Denies any measured fevers. Denies any nausea, vomiting , shortness of breath. General Initial Greet Date/Time 08/15/22 1216 Presentation Chief Complaint Wound check Review of Systems Free Text ROS Notes Free Text ROS Notes Review of systems was perfor med, pertinent positives and negatives noted in HPI Past Medical History - Adult Stated Complaint CHEST PAIN Allergies Coded Allergies: hydromorphone (From DILAUDID) (Severe, THROAT SW ELLS 07/27/22) crab (Intermediate, ITCHING, CHILLS 07/27/22) doxepin (Intermediate, AFFECTS MEMORY, INSOMNIA 07/27/22) oyster extract (Intermediate, ITCHING 07/27/22) tamsulosin (Intermediate, ABNORMAL EJACULATION, FLU SYMPTOMS, FEVER 07/27/22) dexlansoprazole (UNKOWN 07/27/22) eszopiclone (From LUNESTA) (UNKNOWN 07/27/22) levofloxacin (UNKNOWN 07/27/22) meperidine (UNKNOWN 07/27/22) doxycycline (Mild, CRAMPS 07/27/22) diclofenac (DIARRHEA 07/27/22) Uncoded Allergies: CRAWFISH (Severe, THROAT SWELLS 07/23/22) Home Medications Reported Medications ATORVASTATIN (LIPITOR) 10 MG PO DAILY CIPROFLOXACIN (CIPRO) 500 MG PO DAILY PRN DIVERT ICULITIS CLOPIDOGREL (PLAVIX) 75 MG PO DAILY metroNIDAZOLE (FLAGYL) 500 MG PO TID PRN DIVERTI CULITIS NEBIVOLOL (BYSTOLIC) 20 MG PO BID OMEPRAZOLE ER (PriLOSEC) 40 MG PO DAILY PRN ACID REFLUX predniSONE 1 MG PO TID SILDENAFIL (VIAGRA) 100 MG PO DAILY PRN PRN ED SODIUM FLUORIDE (PREVIDENT 5000 1.1% DENTAL) 1 A PPLIC TOPICAL DAILY ASPIRIN 81 MG PO DAILY POTASSIUM GLUCONATE 1 TAB PO DAILY CALCIUM CARBONATE (CALTRATE 600 MG) 600 MG PO DA SHIMON CHOLECALCIFEROL (VITAMIN D3) (VITAMIN D3) 1,000 UNITS PO DAILY ACETAMINOPHEN (TYLENOL) 500 MG PO Q4H PRN PRN PA IN IBUPROFEN (ADVIL) 200 MG PO Q6H PRN PRN PAIN FAMOTIDINE (PEPCID) 20 MG PO DAILY amLODIPine (NORVASC) 10 MG PO DAILY LOSARTAN (COZAAR) 50 MG PO DAILY Past Medical History: Reports: Coronary artery dis ease, Hypertension, Dyslipidemia, Prior CA, Steroid use. Additional Medical History Temproal arteritis (2017) Additional Surgical History Colon resection 2009 secondary to diverticulitis C3 surgery Family History: Reports: Heart disease (brother). Alcohol Use Alcohol use (1-7 drinks per week) Drug Use Denies recreational drugs Smoking status for patients 13 years old or olde r: Never Smoker Physical Exam Vital Signs Vital Signs First Documented: Result Date Time Pulse Ox 98 08/15 1223 B/P 144/67 08/15 1223 B/P Mean 92 08/15 1223 O2 Delivery Room air 08/15 1223 Temp 36.9 08/15 1223 Pulse 72 08/15 1223 Resp 18 08/15 1223 Last Documented: Result Date Time Pulse Ox 98 08/15 1225 B/P 144/67 08/15 1225 B/P Mean 96 08/15 1225 Pulse 74 08/15 1225 O2 Delivery Room air 08/15 1223 Temp 36.9 08/15 1223 Resp 18 08/15 1223 Review of Vital Signs Reviewed Free Text PE Notes Free Text PE Notes Head: Normocephalic, atraumatic. Eyes: Normal conjunctiva, anicteric. Round symme tric pupils. ENT: Hearing grossly intact. No nasal discharge. Neck: Neck is supple. No masses or thyromegaly. CV: Normal rate and regular rhythm, norm al S1/S1, no murmurs, rubs, or gallops appreciated. 2+ radial pulses symmetric bilatera lly. Respiratory: Clear to auscul tation bilaterally, moving air well. No crackles or wheezes are heard. Abdominal: Soft, nontender, nondistended with no rmoactive bowel sounds. Skin: Warm. Anterior chest with sternotomy scar, mild serous drainage from lower portion with 1 mm of wound separation for a 1 to 1.5 cm portion. No induration, fluctuance. MSK: No clubbing or cyanosis. Psych: Alert and oriented. Cooperative, Appropri ate mood and affect, Normal judgment. Neuro: Moving all four extremities, no facial dr oop, no motor asymmetry appreciated. Interpretation Diagnostics Lab Results Interpretation Results Laboratory Tests 08/15/22 1246: [Embedded Image Not Available] Laboratory Tests: 08/15 08/15 1246 1246 Chemistry Sodium (134 - 147 mEq/L) 136 Potassium (3.4 - 5.0 mEq/L) 4.5 Chloride (100 - 108 mEq/L) 106 Carbon Dioxide (21 - 33 mEq/l) 21 Anion Gap (0 - 20) 13 BUN (7 - 18 mg/dL) 9 Creatinine (0.6 - 1.3 mg/dL) 1.0 Glomerular Filtr Rate (80 - 90) 82.0 Glucose (70 - 110 mg/dL) 106 Calcium (8.0 - 10.5 mg/dL) 8.6 Magnesium (1.80 - 2.40 mg/dL) 2.14 Total Bilirubin (0.0 - 1.0 mg/dL) 0.60 Direct Bilirubin (0.0 - 0.30 MG/DL) 0.30 Indirect Bilirubin (MG/DL) 0.30 AST (15 - 37 IUnit/L) 44 H ALT (30 - 65 IUnit/L) 48 Total Alk Phosphatase (20 - 125 IUnit/L) 133 H Troponin I High Sens (0 - 54 ng/L) 21 B-Natriuretic Peptide (0 - 100 PG/ML) 491.0 H Total Protein (6.4 - 8.2 g/dL) 6.9 Albumin (3.4 - 5.0 g/dL) 3.00 L Hematology WBC (4.5 - 11.0 x10 3/uL) 9.9 RBC (4.00 - 5.60 x10 6/uL) 2.44 L Hgb (12.5 - 16.9 g/dL) 7.7 L Hct (37.5 - 50.7 %) 22.7 L MCV (81.0 - 99.0 fL) 93.0 MCH (27.0 - 33.0 pg) 31.6 MCHC (33.0 - 37.0 g/dL) 33.9 RDW (11.5 - 14.5 %) 14.6 H Plt Count (150 - 400 x10 3/uL) 323 MPV (7.0 - 9.0 fL) 10.5 H Neut % (Auto) (56.0 - 77.0 %) 81.4 H Lymph % (Auto) (14.0 - 32.0 %) 8.3 L Stephenson % (Auto) (4.8 - 9.0 %) 8.4 Eos % (Auto) (0.3 - 3.7 %) 0.9 Baso % (Auto) (0.0 - 2.0 %) 0.2 Neut # (Auto) (2.0 - 7.6 x10 3/uL) 8.05 H Lymph # (Auto) (1.0 - 3.8 x10 3/uL) 0.82 L Stephenson # (Auto) (0.1 - 0.8 x10 3/uL) 0.83 H Eos # (Auto) (0.0 - 0.2 x10 3/uL) 0.09 Baso # (Auto) (0.0 - 0.2 x10 3/uL) 0.02 Abs Immat Gran (auto) (0.00 - 0.03 x10 3/uL) 0. 08 H Add Manual Diff NO Immature Gran % (0.0 - 2.0 %) 0.8 Nucleated RBC % (0 - 0 %) 0.0 Nucleated RBCs # (Man) (0.0 - 0.1 x10 3/uL) 0.0 0 Recent Impressions: RADIOLOGY - XR CHEST 1 V 08/15 1233 Report Impression - Status: SIGNED Entered: 08/15/2022 1405 IMPRESSION: Interval decrease in the diffuse pulmonary edema . Impression By: [email or web address] - Breonna Noonan M.D. Lab Imaging Statement Laboratory radiographic studies reviewed and int erpreted by me, ED physician, and considered in the medical decision-making. Free Text I D Notes Free Text I D Notes EKG from 08/15/2022 at 1222, performed for chest pain, post CABG Interpreted by myself, ED physician Sinus rhythm, rate 70 Normal axis SD, normal QRS, prolonged QTc No ST elevation or ST depression suggestive of i schemia Re-Evaluation MDM Free Text MDM Notes Free Text MDM Notes 66-year-old history of hypertension, CAD, status post CABG with Dr. Mccurdy earlier this month, presenti ng for chills and wound drainage from his sternotomy scar. Referred from his cardiothoracic surgeon f or evaluation. Patient overall well-appearing, hemodynamically stable, not tachycardic, not short of breath, afebrile No SIRS criteria, low suspicion for sepsis Wound overall well-appearing, mild wound separat ion, serous drainage, but obvious concern given patient's recent surgery f or possible underlying wound infection Discussed with CT surgery LINH Mendez, who evaluat ed, will discuss with Dr. Mccurdy next steps In the meantime, will order labs, pain control No indication for blood cultures, lactic at this time, will get CT to evaluate postoperative changes We will await cardiothoracic recommendations for antimicrobial coverage Re-Evaluation/Progress Re-Evaluation/Progress Text/Dict Note Chest x-ray independently reviewed and interpret ed by me, ED physician. No focal consolidation suggestive of pneumonia, no pneumothorax. Left-sided haziness, consistent with prior x-ray while inpa tient, no significant change CT surgery requesting Zosyn, will admit, follow- up on imaging --- Medical Decision Making Summary Complexity of Problems Addressed: Evaluated for multiple diagnoses as above Specifically evaluated for the following diagnos es that could pose an acute threat to life or bodily function: Postoperative wound infection Overall most suggestive of: Postoperative wound drainage Data Review/Analysis: Tests ordered as above Review of test results as above External notes reviewed: CT surgery, discharge n otes from earlier this month showing operative course, discharge condition Indepentent history taken from: None Independent interpretation of tests: CXR Discussion of patient management with: Cardiotho racic surgery, who provided recommendations, will admit the patient Risk of complications/morbidity/mortality of pat ient management: High risk given need for inpatient observation a nd management --- ED Course Medication(s) Ordered Medication(s) Ordered: Anti-Infective Agents Sig/Cory Start time Last Medication Dose Route Stop Time Status Admin Piperacillin Sod/ 3.375 GM X1ED STA 08/15 1245 DC 08/15 Tazobactam Sod IV 08/15 1314 1325 Sodium Chloride 100 ML Central Nervous System Agents Sig/Cory Start time Last Medication Dose Route Stop Time Status Admin Acetaminophen 650 MG Q4H PRN PRN 08/15 1300 AC PO 08/16 1147 Acetaminophen 1,000 MG X1ED STA 08/15 1237 DC 0 08/15 PO 08/15 1238 1326 Aspirin 324 MG X1ED STA 08/15 1217 CAN PO 08/15 1218 Electrolytic, Caloric, And Pearl Sig/Cory Start time Last Medication Dose Route Stop Time Status Admin Sodium Chloride 1,000 ML .Q10H 08/15 1300 AC IV 08/16 1147 Sodium Chloride 500 ML X1ED STA 08/15 1237 DC 0 08/15 IV 08/15 1336 1326 Gastrointestinal Drugs Sig/Cory Start time Last Medication Dose Route Stop Time Status Admin Ondansetron HCl 4 MG Q6H PRN PRN 08/15 1300 AC IV 08/16 1147 Patient Discharge Departure Vital Signs/Condition Vital Signs First Documented: Result Date Time Pulse Ox 98 08/15 1223 B/P 144/67 08/15 1223 B/P Mean 92 08/15 1223 O2 Delivery Room air 08/15 1223 Temp 36.9 08/15 1223 Pulse 72 08/15 1223 Resp 18 08/15 1223 Last Documented: Result Date Time Pulse Ox 98 08/15 1225 B/P 144/67 08/15 1225 B/P Mean 96 08/15 1225 Pulse 74 08/15 1225 O2 Delivery Room air 08/15 1223 Temp 36.9 08/15 1223 Resp 18 08/15 1223 All vital signs available at the time of this en try have been reviewed. Condition Stable Clinical Impression Clinical Impression Primary Impression: Draining postoperative wound Disposition Decision Hospitalize Hosp Physician Name Rosalind Mendez )( Accepts Hospitalization Yes )( Reason for Hospitalization post operative wound drainage )( Accepted Time 1247 )( Accepted Date 08/15/22 Call Information will see patient Discharge/Care Plan Admit Note I have spoken with the patie nt and/or caregivers. I have explained the patient's condition, diagnoses and debbie atment plan based on the information available to me at this time. I have answered the patient's and/ or caregiver's questions and addressed any concerns. The patient and/or careg yissel have as good an understanding of the patient 's diagnosis, condition and treatment plan as can be expected at this point. The patient has been stabilized within the capability of the emergency department. The patient wi ll be transported for further care and management or will be moved to an observation or inpatient service. I have communicated with the staff or medical p ractitioner taking over this patient's care. at 1420 RPT #:[id number] END OF REPORT 2022-08-09 15:06:00-00:00 [id number] [place] [id number] PATIENT NAME: MARY DALY ADMIT DATE: 07/30/22 ACCOUNT NO: [id number] ROOM NO: [id number] AGE: 66 REPORT TYPE: eECHOCARDIOGRAM REPORT SEX: M ADMITTING PHYSICIAN:Anthony Loaiza MD ATTENDING PHYSICIAN:Anthony Loaiza MD *[place] [address] Limited Transthoracic Echocardiogram Patient: Mary Daly Study Date: 08/09/2022 BP: 143 / 76 Location: [facility] URN: [id number] : 1955 Age: 66 Height: 70 in / 177.8 cm Gender: M Weight: 189 .6 lb / 86.2 kg BMI/BSA: 27.3 kg/m 2 / 2.04 m 2 *Ordering Physician: * Rosalind Mendez Physic *Interpreting Physician: * Denton Chaparro MD *Irrigation District Manager: * Moira Jimenez Indications: Rule out pericardial effusion. Study data: Transthoracic echocardiogram, limite d study. Procedure: Transthoracic echocardiography was performed. Im age quality was adequate. Limited 2D and limited spectral Dopple r. Location: Bedside. Patient status: Inpatient. Patient room number: 3346. Study status: Routine. Rhythm: Normal sinus rhythm. Findings Left ventricle: The cavity size is normal. Wall thickness is normal. Systolic function is normal. The estimated eject ion fraction is 60-64%. Wall motion is normal; there are no regional wal l motion abnormalities. Left ventricular diastolic function parameters a re normal for the patient's age. Right ventricle: The cavity size is normal. Syst olic function is PATIENT NAME: MARY DALY 2 normal. Left atrium: The atrium is normal in size. Right atrium: The atrium is normal in size. Aorta: Aortic root: The aortic root is normal in size. Aortic valve: The valve is trileaflet. The leafl ets are moderately thickened. There is no evidence of stenosis. The re is no regurgitation. Mitral valve: The annulus is mildly calcified. T here is no evidence of stenosis. There is trivial regurgitation. Tricuspid valve: The valve is structurally jessica l. There is mild regurgitation. Pulmonic valve: The valve is structurally normal . The leaflets are normal thickness. There is mild regurgitation. Pericardium: There is no pericardial effusion. Pulmonary arteries: Main pulmonary artery: The artery is of normal s ize. Systemic veins: Inferior vena cava: The vessel is normal in size . The respirophasic diameter changes are in the normal range (= 50%) . Measurements Left ventricle Value 07/29/2022 Ref CHRIS, LAX 5.1 cm 5.7 4.2 - 5.8 ESD, LAX 3.7 cm 4.0 2.5 - 4.0 ESD/bsa, 1.8 cm/m 2 1.9 1.3 LAX - 2.1 FS, LAX 27 % 30 25 - 43 ESD/bsa 3.0 cm/m 2 3.4 ---- major ax, A4C CHRIS/bsa 3.0 cm/m 2 3.4 ---- minor ax, A4C CHRIS major 7.8 cm 8.2 ---- ax, A2C ESD major 5.7 cm 6.0 ---- ax, A2C CHRIS/bsa 3.8 cm/m 2 4.0 ---- major ax, A2C ESD/bsa 2.8 cm/m 2 2.9 ---- major ax, A2C PW, ED 0.9 cm 1.0 0.6 - 1.0 PATIENT NAME: MARY DALY 2 IVS/PW, ED 1.03 1.03 ---- EF 52 % 57 52 - 72 E', lat 9.2 cm/sec 7.8 >=10 nika, TDI .0 E/e', lat 9 12 ---- nika, TDI E', med 7.6 cm/sec 6.8 >=7. nika, TDI 0 E/e', med 11 14 ---- nika, TDI E', avg, 8.4 cm/sec 7.3 ---- TDI E/e', avg, 10 13 <=14 TDI LVOT Value 07/29/2022 Ref Diam, S 2.03 cm 1.93 ---- Area 3.2 cm 2 2.9 ---- Peak edilberto, 1.17 m/sec 0.9 ---- S Mean edilberto, 0.76 m/sec 0.58 ---- S VTI, S 21.4 cm 22.1 ---- Peak grad, 5 mm Hg 3 ---- S Mean grad, 3 mm Hg 2 ---- S SV 69 ml 64 ---- Qs 4.54 L/min 3.7 ---- Qs/bsa 2.2 L/(min-m 2) 1.8 ---- SV/bsa 34 ml/m 2 31 ---- Ventricular septum Value 07/29/2022 Ref IVS, ED 0.9 cm 1.0 0.6 - 1.0 Right ventricle Value 07/29/2022 Ref CHRIS, LAX 3.0 cm ---- Left atrium Value 07/29/2022 Ref AP dim, ES 4.25 cm 4.50 3.00 - 4.00 Vol/bsa, 24 ml/m 2 16 12 - ES, 1-p 37 A4C Vol, ES, 57 ml 50 ---- 2-p Vol/bsa, 28 ml/m 2 24 16 - ES, 2-p 34 Vol/bsa, 25 ml/m 2 17 16 - ES, A/L 34 PATIENT NAME: MARY DALY 2 Right atrium Value 07/29/2022 Ref Area, ES 14 cm 2 13 10 - 18 SI dim, 5.6 cm 6.5 3.4 ES, A4C - 5.3 SI 2.7 cm/m 2 3.2 1.8 dim/bsa, - ES, A4C 3.0 Vol, ES, 31 ml 23 ---- A/L Vol, ES, 30 ml 22 ---- 1-p A4C Vol/bsa, 15 ml/m 2 11 11 - ES, 1-p 39 A4C Aortic valve Value 07/29/2022 Ref Peak v, S 1.55 m/sec 1.45 ---- Mean v, S 1.05 m/sec 0.95 ---- VTI, S 26.8 cm 31.1 ---- Mean grad, 5.2 mm Hg 4.3 ---- S Peak grad, 9.7 mm Hg 8.5 ---- S LVOT/AV, 0.8 0.71 ---- VTI ratio RICHARD, VTI 2.59 cm 2 2.07 ---- LVOT/AV, 0.75 0.62 ---- Vpeak ratio RICHARD, Vmax 2.44 cm 2 1.80 ---- Mitral valve Value 07/29/2022 Ref Peak E 0.84 m/sec 0.07 ---- Peak A 0.72 m/sec 1 ---- Decel time 184 ms 213 ---- PHT 57 ms 42 ---- Peak grad, 2.8 mm Hg ---- D Peak E/A 1.17 0.93 ---- ratio MVA, PHT 3.9 cm 2 5.2 ---- MR peak v 1.54 m/sec ---- Pulmonic valve Value 07/29/2022 Ref SD v, ED 0.65 m/sec 0.58 ---- Tricuspid valve Value 07/29/2022 Ref TR peak v 1.18 m/sec 1.21 <=2. 8 Peak RV-RA 6 mm Hg 6 ---- lenny S PATIENT NAME: MARY DALY 2 Conclusions Summary: 1. Left ventricle: The cavity size is normal. Wa ll thickness is normal. Systolic function is normal. The estimated ejec tion fraction is 60-64%. Wall motion is normal; there are no reg ional wall motion abnormalities. Left ventricular diastolic funct ion parameters are normal for the patient's age. 2. Mitral valve: The annulus is mildly calcified . There is trivial regurgitation. 3. Pulmonic valve: There is mild regurgitation. 4. Pericardium, extracardiac: There is no perica rdial effusion. Prepared and electronically signed by Denton Chaparro MD 08/09/2022 15:06 Electronically Signed by Denton Chaparro MD on 0 08/09/22 at 1506 PATIENT NAME: MARY DALY 2 2022-08-09 14:30:00-00:00 [facility] ([facility]) Hospitalist Discharge Summary REPORT#:[id number] REPORT STATUS: Signed DATE:08/09/22 TIME: 1430 PATIENT: MARY DALY UNIT #: [id number] [place] [facility] [place] : [place] AGE: 66 SEX: M ATTEND: Marcella Loaiza od, MD ADM AUTHOR: Liz Orozco MD * ALL edits or amendments must be made on the [employer]/computer document * General Information Date of admission: Observation Start Date: 07/28/22 Date of admission: 07/30/22 Discharge date: 08/09/22 Discharge diagnosis: see below Hospital course: see below Consultants: anesthesiology, cardiology, cardiov ascular surgery Free Text DxA P Notes Free text DxA P notes: Assessment and Plan: - Multivessel CAD, s/p CABG - CP due to CAD. - Hypomagnesemia. - HX of HTN/HLD and CAD. - Anemia - Leucocytosis - S/P CABG x 4 (MITCHELL to LAD, saphenous vein to f irst marginal, saphenous vein to second marginal, saphenou s vein to PDA, Amputation of left atrial appendage, Endoscopic vein harvest (left greater saphenous vein) and Posterior pericardiotomy. Plan: cvn1 Will be dc home soon. Agrressive IS and PT/OT. Pain meds. Antiemetics. Continue BB, Lipitor and ASA. Follow labs and repalce as needed. Monitor. DVT ppx 08/09 doing well echo today to eval for pericardial effusion ok to dc home if echo negative per CT surgery follow up with CT surery and cardiology PCP follow up meds reconciled Med Rec Med Rec Discharge meds: Continue taking these medications: ATORVASTATIN (LIPITOR) 10 MG TAB 10 MILLIGRAM ORAL DAILY. CIPROFLOXACIN (CIPRO) 500 MG TAB 500 MILLIGRAM ORAL DAILY. as needed for DIVERTI CULITIS CLOPIDOGREL (PLAVIX) 75 MG TAB 75 MILLIGRAM ORAL DAILY. metroNIDAZOLE (FLAGYL) 500 MG TAB 500 MILLIGRAM ORAL THREE TIMES A DAY. as needed for DIVERTICULITIS NEBIVOLOL (BYSTOLIC) 20 MG TAB 20 MILLIGRAM ORAL TWICE DAILY. OMEPRAZOLE ER (PriLOSEC) 40 MG CAP.DR 40 MILLIGRAM ORAL DAILY. as needed for ACID REF LUX predniSONE (predniSONE) 1 MG TAB 1 MILLIGRAM ORAL THREE TIMES A DAY. SILDENAFIL (VIAGRA) 100 MG TAB 100 MILLIGRAM ORAL DAILY NEEDED. as needed f or ED SODIUM FLUORIDE (PREVIDENT 5000 1.1% DENTAL) 1.1 % GEL 1 APPLIC TOPICAL DAILY. ASPIRIN (ASPIRIN) 81 MG TAB.CHEW 81 MILLIGRAM ORAL DAILY. POTASSIUM GLUCONATE (POTASSIUM GLUCONATE) 550 MG (90 MG) TAB 1 TABLET ORAL DAILY. CALCIUM CARBONATE (CALTRATE 600 MG) 600 MG CALCI UM (1,500 MG) TAB 600 MILLIGRAM ORAL DAILY. CHOLECALCIFEROL (VITAMIN D3) (VITAMIN D3) 25 MCG (1,000 UNIT) TAB 1,000 UNITS ORAL DAILY. ACETAMINOPHEN (TYLENOL) 500 MG TAB 500 MILLIGRAM ORAL EVERY 4 HOURS NEEDED. as needed for PAIN IBUPROFEN (ADVIL) 200 MG TAB 200 MILLIGRAM ORAL EVERY 6 HOURS NEEDED. as needed for PAIN FAMOTIDINE (PEPCID) 20 MG TAB 20 MILLIGRAM ORAL DAILY. amLODIPine (NORVASC) 10 MG TAB 10 MILLIGRAM ORAL DAILY. LOSARTAN (COZAAR) 50 MG TAB 50 MILLIGRAM ORAL DAILY. Objective VS/I O Last Documented: Result Date Time Pulse Ox 95 08/09 1126 B/P 125/68 08/09 1126 B/P Mean 0.0 08/09 1126 O2 Delivery Room air 08/09 1126 Temp 36.6 08/09 1126 Pulse 68 08/09 1126 Resp 14 08/09 1126 FiO2 21 08/07 2102 O2 Flow Rate 2 08/06 2025 24 hour I O ending at 0700: 08/09 0700 08/08 1900 Intake Total 750 800 Output Total 875 1000 Balance -125 -200 Intake, Oral 750 800 Number 1 Bowel Movements Output, Urine 875 1000 Patient 86.3 kg Weight Weight Standing scale Measurement Method General appearance: alert, awake Head/Eyes: atraumatic, normocephalic, PERRLA Cardiovascular: normal capillary refill, normal heart sounds, regular rate rhythm Respiratory: aerating well, symmetric expansion, no distress Abdomen: non-tender, normal bowel sounds, soft Genitourinary: no bladder distention, no flank p ain, no urinary catheter Extremities: no calf tenderness, no clubbing, no cyanosis Musculoskeletal: no CVA tenderness, no muscle sp asm Neuro/INSURANCE WRITER: alert, oriented X 3, CNII-XII intact Skin: dry, intact Wound/incision: Location: STERNOTOMY incision; c/d/i Psychiatry: normal affect, normal mood Results Findings/Data: Laboratory Tests: 08/09 0430 Chemistry Sodium (134 - 147 mEq/L) 140 Potassium (3.4 - 5.0 mEq/L) 4.2 Chloride (100 - 108 mEq/L) 109 H Carbon Dioxide (21 - 33 mEq/l) 22 Anion Gap (0 - 20) 13 BUN (7 - 18 mg/dL) 9 Creatinine (0.6 - 1.3 mg/dL) 0.8 Glomerular Filtr Rate (80 - 90) 96.4 H Glucose (70 - 110 mg/dL) 109 Calcium (8.0 - 10.5 mg/dL) 8.6 Magnesium (1.80 - 2.40 mg/dL) 2.10 Hematology WBC (4.5 - 11.0 x10 3/uL) 11.5 H RBC (4.00 - 5.60 x10 6/uL) 2.66 L Hgb (12.5 - 16.9 g/dL) 8.3 L Hct (37.5 - 50.7 %) 25.8 L MCV (81.0 - 99.0 fL) 97.0 MCH (27.0 - 33.0 pg) 31.2 MCHC (33.0 - 37.0 g/dL) 32.2 L RDW (11.5 - 14.5 %) 14.6 H Plt Count (150 - 400 x10 3/uL) 296 MPV (7.0 - 9.0 fL) 11.0 H Neut % (Auto) (56.0 - 77.0 %) 67.9 Lymph % (Auto) (14.0 - 32.0 %) 16.6 Stephenson % (Auto) (4.8 - 9.0 %) 11.6 H Eos % (Auto) (0.3 - 3.7 %) 2.7 Baso % (Auto) (0.0 - 2.0 %) 0.4 Neut # (Auto) (2.0 - 7.6 x10 3/uL) 7.80 H Lymph # (Auto) (1.0 - 3.8 x10 3/uL) 1.91 Stephenson # (Auto) (0.1 - 0.8 x10 3/uL) 1.33 H Eos # (Auto) (0.0 - 0.2 x10 3/uL) 0.31 H Baso # (Auto) (0.0 - 0.2 x10 3/uL) 0.05 Abs Immat Gran (auto) (0.00 - 0.03 x10 3/uL) 0. 09 H Add Manual Diff NO Immature Gran % (0.0 - 2.0 %) 0.8 Nucleated RBC % (0 - 0 %) 0.3 H Nucleated RBCs # (Man) (0.0 - 0.1 x10 3/uL) 0. 03 Radiology data: Recent Impressions: RADIOLOGY - XR CHEST 1 V 08/09 700 Report Impression - Status: SIGNED Entered: 08/09/2022910 IMPRESSION: 1. Moderate enlarged cardiac silhouette. 2. Moderate pulmonary edema versus infiltrates, pneumonia. 3. Small bilateral pleural effusions. Impression By: [email or web address] - Oracio Stoner M.D. Discharge Instructions PCP PCP follow-up: PCP: Albino Torre MD Discharge to: Home/Self Care Additional Discharge Routines: PCP Follow-Up, Co nsultant Follow-Up Diet: Cardiac Discharge management: greater than 30 mins (45) Follow-up Appointments PCP follow-up: PCP: Albino Torre MD PCP follow up timeframe: In 1-2 weeks Consulting provider 1: Provider 1: Ludin Mccurdy MD Specialty: Thoracic Surgery Consulting provider 2: Provider 2: Melisa Gamboa MD Specialty: Cardiology Electronically Signed by Liz Orozco MD on at 1433 RPT #:[id number] END OF REPORT 2022-08-09 05:23:00-00:[address] [facility] ([facility] Cardiothoracic Surgery Prog REPORT#:[id number] REPORT STATUS: Signed DATE:08/09/22 TIME: 522 PATIENT: MARY DALY UNIT #: [id number] [place]: [facility] [place] : 53 AGE: 66 SEX: M ATTEND: Marcella Loaiza od, MD ADM AUTHOR: Rosalind Mendez Physic * ALL edits or amendments must be made on the [employer]/computer document * General Post-op: day 7 Status post: 08/02/22 CABG x 4 (MITCHELL-LAD, SVG-OM1, SVG-OM2, SVG-PDA) ALAA EVH (LGSV) Posterior pericardiotomy Subjective Chief complaint: Chest Pains, CAD. Review of Systems Constitutional: Denies: fatigue, fever, generalized weakness. Skin: Denies: rash, swelling. Allergy/Immun: Denies: itching, rhinorrhea. ENT: Denies: earache, hearing loss. Respiratory: Denies: SOB, wheezing. Cardiovascular: Denies: edema, orthopnea. GI: Denies: constipation, diarrhea. : Denies: dysuria, hematuria. Musculoskeletal: Denies: joint pain, joint swelling. Heme: Denies: bleeding, bruising. Neuro: Denies: confusion. Psych: Denies: anxiety, confusion. All systems rev neg: except as marked Objective General VS/I O Last Documented: Result Date Time Pulse Ox 97 08/09 0403 B/P 150/74 08/09 0403 B/P Mean 0.0 08/09 0403 O2 Delivery Room air 08/09 0403 Temp 98.2 08/09 0403 Pulse 84 08/09 0403 Resp 14 08/09 0403 FiO2 21 08/07 2102 O2 Flow Rate 2 08/06 2025 24 hour I O ending at 0700: 08/09 0700 08/08 1900 Intake Total 200 800 Output Total 250 1000 Balance -50 -200 Intake, Oral 200 800 Number 1 Bowel Movements Output, Urine 250 1000 PATIENT WEIGHT: Weight (lb): 194 Weight (oz): 3.64 Weight (kg): 88.100 Physical Exam General appearance: alert, awake, oriented Wound/incision: Location: sternal Site condition: dressing clean dry, dressing in tact HEENT: mucosal membranes moist Neck: full range of motion, non-tender Cardiovascular: BP/pulses equal bilat., regular rate rhythm Respiratory: aerating well, clear to auscultatio n Abdomen: soft, non-tender Extremities: dry, moves all Musculoskeletal: full range of motion, painless range of motion Neuro/INSURANCE WRITER: alert, oriented X 3 Skin: dry, intact Psychiatry: normal affect, normal mood Treatment Prophylaxis Treatment Prophylaxis Drain(s)/tube(s): Drain(s)/tube(s): bertha (x2) Diagnosis, Assessment Plan Free Text A P: This is a 66-year gentleman with past medical history of coronary artery disease status post PCI in the past, with most recent in July 07, 2022, history of temporal arteritis on chronic prednisone since 2 017, diverticulitis, gout, hypertension, hyperlipidemia. The patient reports a histor y of exertional shortness of breath with occasional chest pain over the past several weeks. He underwent cardiac work-up with his cardiologi st and left heart cath was performed yesterday. This revealed multivessel CAD. CV surgery consulted for evaluation for coronary bypass graft. The patient reports a histor y of diabetes, diet controlled for the past several years. Patient denies any history of smoking. Patient admits to drinking 1 alcoholic beverage per day Patient has a strong family history of coronary artery disease with coronary bypass graft surgery in his brother Patient continues to take prednisone 3 mg daily for history of temporal arteritis in 2017 Assessment/plan 1. Coronary artery disease Previous PCI with most recent June 2022, hold Pl avix in preparation for surgery. 2. Hypertension 3. Hyperlipidemia 4. Temporal arteritis in 2017 Continues on prednisone 3 mg We will begin work-up for coronary bypass graft surgery. Patient was seen in exam by Dr. Mccurdy. Further recommendations to follow as work-up und erway Thank you for this kind consultation 07/29/22 Patient resting comfortable, denies complaint Patient received Plavix 75 m g on 07/28/2022 , will obtain repeat platelet response to Plavix test in the a.m. Respiratory: On room air Cardiac: Remains sinus rhythm Carotid Doppler shows no significant carotid art jorge stenosis Vein mapping complete Labs reviewed shows WBCs elevated 16 Urinalysis negative Neurology consult for history of temporal arteri tis, appreciate input We will repeat platelet response to Plav ix. Possibly plan for CABG in the a.m. Patient was seen and examined by 07/30/22 Patient resting comfortable. Denies complaints. Respiratory: On room air 100% Cardiac: Sinus rhythm Last recieved plavix on 07/28/22, Platelet respons e to PLavix this am= 157 Will plan for surgery next week. Neurology eval underway Patient was seen and examined by Dr. Mccurdy Work-up for coronary artery bypass graft surgery undergoing. Timing of surgery pending 07/31/22 Patient resting comfortable. Denies complaints. Respiratory: On room air 100% Cardiac: Sinus rhythm Patient recieved plavix on 07/28/22, Will repeat p latelet response on Tuesday. Will plan for surgery next week Neurology following. Continue steroids for Hx of temporal arteritis. Carotids show no significant dz, CT head complete No flow-limiting stenosis or occlusion along ma daisy intracranial arterial vessels. No acute intracranial process nor bony injury UA negative, HGa1c 6.2 Patient was seen and examined by Dr. Carmella carmen. Plan repeat platelet response to Plavix in the a.m. Plan for CABG on Tuesday08/01/22 Patient transferred to CVICU last night due to chest pains, started on heparin drip per protocol Currently denies any discomfort or chest pains. Alert and oriented x3 Respiratory: On room air Cardiac: Remains sinus rhythm Platelet response to Plavix 191 Patient has been seen and evaluated by neurology Work-up for coronary artery bypass graft is comp lete. Plan for surgery tomorrow. Patient was seen and examined by Dr. Carmella carmen. Plan of care discussed with team 08/02/22 CABG x 4 (MITCHELL-LAD, SVG-OM1, SVG-OM2, SVG-PDA) ALAA EVH (LGSV) Posterior pericardiotomy 08/03/22 POD 1 Patient hemodynamically stable post operatively CXR and labs reviewed Wean off oxygen as tolerated, currently at 2l na sumit cannula Encourage incentive spirometer use and deep frank thing Keep chest tubes and monitor outputs Advance diet as tolerated Glycemic control on insulin drip Pain management Monitor strict I Os DVT ppx with SCDs, GI ppx with PPI Monitor patient closely in CVICU Patient seen and examined wi th Dr. Mccurdy, plan of care discussed with ICU team 08/04/22 POD 2 Patient recovering well, no complaints CXR and labs reviewed On 5 L nasal cannula, encourage I-S use and wean off oxygen Discontinue central line and guardado Discontinue MS chest tube, keep LP and monitor o utputs Gentle diuresis with lasix IV 10 x 1, monitor st rict I Os Tolerating diet PT/OT Ambulate Monitor patient in CVICU 08/05 POD 3 AAOx3 Respiratory: On 2 L nasal cannula, wean as timothy ated, Encourage IS, Deep Breathing, CXR reviewed CT drainage 160, will DC today Cardiac: Remains sinus rhythm, pacing wires on s tandby GI: + gas, Continue Bowel regimen UO: 620. Continue PT/OT- out of bed walking Labs reveiwed- replace electrolytes as needed Patient seen and examined by Dr. Mccurdy. Plan o f care discussed with multidisciplinary team 08/06/22 POD 4 Patient resting comfortable, no complaints Labs and cxr reviewed Wean off oxygen as tolerated, on 2l nasal cannul a Encourage I-S use and deep breathing Tolerating diet, bowel regimen PT/OT- ambulate Monitor in CVN 1 08/09/22 POD 7 DVt study negative Resp:on room air Cardiac: Sinus rhtyhm, pacing wires DC'd at the bedside today. Will obtain echocardiogram to rule out effusion GI: + BM Patient has been out of bed walking with PT OT Okay to DC patient home today after echocardiogr am complete. Followup in 1 week post op clinic 08/18/22 @ 1:15 Patient was seen in exam by Dr. Mccurdy Consultants: anesthesiology, cardiology, cardiov ascular surgery at 0909 at 0947 RPT #:[id number] END OF REPORT 2022-08-08 21:32:00-00:[address] [facility] ([facility]) Hospitalist Progress Note REPORT#:[id number] REPORT STATUS: Signed DATE:08/08/22 TIME: 2131 PATIENT: MARY DALY UNIT #: [id number] ROOM/BED: 3346-1 : 53 AGE: 66 SEX: M ATTEND: Marcella Loaiza od, MD ADM AUTHOR: Jay Jay Roman DO * ALL edits or amendments must be made on the [employer]/computer document * Subjective Chief complaint: He is doing well. On RA and Breathing is improved. Review of Systems Constitutional: Reports: generalized weakness. Denies: chills, f ever. Respiratory: Denies: SOB, wheezing. Cardiovascular: Denies: chest pain, palpitations. GI: Denies: abdominal pain, nausea, vomiting. : Denies: dysuria, hematuria. Musculoskeletal: Denies: extremity pain, extremity swelling. Neuro: Denies: confusion, dizziness. Psych: Denies: agitation, anxiety. Objective General VS/I O: Vital Signs: Date Time Temp Pulse Resp B/P B/P Pulse O2 O2 Flow FiO2 Mean Ox Delivery Rate 08/08 1857 37.0 78 14 142/66 0.0 98 Room air 08/08 1717 36.7 70 16 132/69 90 95 08/08 1137 36.6 70 14 129/67 87 95 08/08 0647 36.9 73 16 150/77 0.0 95 Room air 08/08 0400 70 94 08/08 0359 36.6 72 14 140/71 0.0 88 Room air 08/08 0110 36.8 79 16 137/71 0.0 93 Room air 08/07 2255 36.6 77 14 126/68 0.0 92 Room air 24 hour I O ending at 0700: 08/08 0700 08/07 1900 Intake Total 240 1120 Output Total 300 Balance 240 820 Intake, Oral 240 1120 Number 1 Bowel Movements Number Voids 3 Output, Urine 300 Patient 88.1 kg Weight Weight Standing scale Measurement Method PATIENT WEIGHT: Weight (lb): 194 Weight (oz): 3.64 Weight (kg): 88.100 Medications: Active Meds + DC'd Last 24 Hrs Potassium Chloride (POTASSIUM CHLORIDE 20MEQ TAB .ER) 20 MEQ ONCE ONE PO (DC) Methocarbamol (ROBAXIN) 500 MG Q8H PRN PRN PO Amiodarone HCl (CORDARONE) 200 MG BID PO Ipratropium [place] (ATROVENT) 500 MCG RTQ2H PRN PRN INH Cyanocobalamin (Vitamin B-12 500 mcg tab) 500 MC G DAILY PO Ferrous Sulfate (FERROUS SULFATE) 325 MG DAILY P O Bisacodyl (DULCOLAX) 10 MG ONCE PRN RECTAL Mupirocin (BACTROBAN 2% 22 GM OINTMENT) 1 APPLIC BID NASAL (DC) Atorvastatin Calcium (LIPITOR) 40 MG 2100 PO Clopidogrel Bisulfate (Plavix) 75 MG DAILY PO Polyethylene Glycol (MIRALAX) 17 GM DAILY PO Ipratropium [place] (ATROVENT) 500 MCG RTQ6H PRN PRN INH Pantoprazole (PROTONIX) 40 MG DAILY@0600 PO Docusate Sodium (COLACE) 100 MG BID PO Metoprolol Tartrate (LOPRESSOR) 12.5 MG Q12HR P O Sennosides (Senna Lax 8.6 MG TABLET) 17.2 MG BED TIME PO Aspirin (ASPIRIN) 81 MG DAILY PO Acetaminophen (TYLENOL) 650 MG Q4H PRN PRN PO Acetaminophen (TYLENOL) 650 MG Q4H PRN PRN RECTA L Calcium Chloride (CALCIUM CHLORIDE) 1 GM ASDIR P RN IV Dextrose/Water (DEXTROSE 10% IN WATER) 125 ML DIR PRN IV (CKD) Dextrose/Water (DEXTROSE 10% IN WATER) 250 ML DIR PRN IV (CKD) Epinephrine (ADRENALIN CHLORIDE) 4 MG ASDIR IV Dextrose/Water (DEXTROSE 5% WATER) 246 ML Glucagon (GLUCAGON) 1 MG ASDIR PRN IM Insulin Human Regular (HumuLIN R) 100 UNIT ASDIR IV (CKD) Sodium Chloride (SODIUM CHLORIDE 0.9%) 99 ML Magnesium Sulfate (MAGNESIUM SULFATE 4GM/SWFI 10 0ML) 100 ML ASDIR PRN IV Magnesium Sulfate (MAGNESIUM SULFATE 2GM/SWFI 50 ML) 50 ML ASDIR PRN IV Magnesium Sulfate/Dextrose (MAGNESIUM SULFATE 1G M/D5W 100ML) 100 ML ASDIR PRN IV Nitroglycerin/Dextrose (NITROGLYCERIN 50,000MCG/ D5W 250ML) 250 ML ASDIR IV Norepinephrine Bitartrate (NOREPINEPHRINE 8 MG/N S 250 ML) 250 ML TITRATE IV Ondansetron HCl (ZOFRAN) 4 MG Q6H PRN PRN IV Potassium Chloride (KCL 20MEQ/SWFI 100ML) 100 ML ASDIR PRN IV Sodium Bicarbonate (SODIUM BICARBONATE) 50 MEQ A SDIR PRN IV Prednisone (predniSONE) 2 MG C BK PO Physical Exam Head/Eyes: atraumatic, normocephalic, PERRLA Cardiovascular: normal capillary refill, normal heart sounds, regular rate rhythm Respiratory: aerating well, symmetric expansion, no distress Abdomen: non-tender, normal bowel sounds, soft Genitourinary: no bladder distention, no flank p ain, no urinary catheter Extremities: no calf tenderness, no clubbing, no cyanosis Musculoskeletal: no CVA tenderness, no muscle sp asm Neuro/INSURANCE WRITER: alert, oriented X 3, CNII-XII intact Skin: dry, intact Wound/incision: Location: STERNOTOMY incision; c/d/i Psychiatry: normal affect, normal mood Results Findings/Data: Laboratory Tests 08/08 441 Chemistry Sodium (134 - 147 mEq/L) 141 Potassium (3.4 - 5.0 mEq/L) 3.7 Chloride (100 - 108 mEq/L) 108 Carbon Dioxide (21 - 33 mEq/l) 25 Anion Gap (0 - 20) 12 BUN (7 - 18 mg/dL) 11 Creatinine (0.6 - 1.3 mg/dL) 0.8 Glomerular Filtr Rate (80 - 90) 96.4 H Glucose (70 - 110 mg/dL) 102 Calcium (8.0 - 10.5 mg/dL) 8.3 Phosphorus (2.5 - 4.9 MG/DL) 4.3 Magnesium (1.80 - 2.40 mg/dL) 2.05 Laboratory Tests 08/08 441 Hematology WBC (4.5 - 11.0 x10 3/uL) 11.3 H RBC (4.00 - 5.60 x10 6/uL) 2.39 L Hgb (12.5 - 16.9 g/dL) 7.6 L Hct (37.5 - 50.7 %) 21.9 L MCV (81.0 - 99.0 fL) 91.6 MCH (27.0 - 33.0 pg) 31.8 MCHC (33.0 - 37.0 g/dL) 34.7 RDW (11.5 - 14.5 %) 14.2 Plt Count (150 - 400 x10 3/uL) 223 MPV (7.0 - 9.0 fL) 11.0 H Neut % (Auto) (56.0 - 77.0 %) 67.6 Lymph % (Auto) (14.0 - 32.0 %) 17.1 Stephenson % (Auto) (4.8 - 9.0 %) 12.0 H Eos % (Auto) (0.3 - 3.7 %) 2.1 Baso % (Auto) (0.0 - 2.0 %) 0.4 Neut # (Auto) (2.0 - 7.6 x10 3/uL) 7.64 H Lymph # (Auto) (1.0 - 3.8 x10 3/uL) 1.93 Stephenson # (Auto) (0.1 - 0.8 x10 3/uL) 1.36 H Eos # (Auto) (0.0 - 0.2 x10 3/uL) 0.24 H Baso # (Auto) (0.0 - 0.2 x10 3/uL) 0.04 Abs Immat Gran (auto) (0.00 - 0.03 x10 3/uL) 0. 09 H Add Manual Diff NO Immature Gran % (0.0 - 2.0 %) 0.8 Nucleated RBC % (0 - 0 %) 0.2 H Nucleated RBCs # (Man) (0.0 - 0.1 x10 3/uL) 0. 02 Radiology data: Recent Impressions: RADIOLOGY - XR CHEST 1 V 08/08 4082 Report Impression - Status: SIGNED Entered: 08/08/2022 4174 IMPRESSION: 1. Improved left basilar opacities. 2. Tiny curvilinear density at the left apex, eq uivocal for a small pneumothorax, involving less than 10% volu me. Attention on follow-up exam. Impression By: [email or web address] - Allan Diana M.D. Treatment Prophylaxis Treatment Prophylaxis Oxygen: room air Drain(s)/tube(s): Drain(s)/tube(s): bertha (x2) Diagnosis, Assessment Plan Consultants: anesthesiology, cardiology, cardiov ascular surgery Free Text DxA P Notes Free text DxA P notes: Assessment and Plan: - Multivessel CAD, s/p CABG - CP due to CAD. - Hypomagnesemia. - HX of HTN/HLD and CAD. - Anemia - Leucocytosis - S/P CABG x 4 (MITCHELL to LAD, saphenous vein to f irst marginal, saphenous vein to second marginal, saphenou s vein to PDA, Amputation of left atrial appendage, Endoscopic vein harvest (left greater saphenous vein) and Posterior pericardiotomy. Plan: cvn1 Will be dc home soon. Agrressive IS and PT/OT. Pain meds. Antiemetics. Continue BB, Lipitor and ASA. Follow labs and repalce as needed. Monitor. DVT ppx Electronically Signed by Jay Jay Roman DO on 07/22 10/13 at 2134 RPT #:[id number] END OF REPORT 2022-08-08 12:54:00-00:00 [facility] ([facility]) Cardiology Progress Note REPORT#:[id number] REPORT STATUS: Signed DATE:08/08/22 TIME: 1254 PATIENT: MARY DALY UNIT #: [id number] ROOM/BED: [place] [address] : 53 AGE: 66 SEX: M ATTEND: Marlo Loaiza MD ADM AUTHOR: Melisa Gamboa MD * ALL edits or amendments must be made on the [employer]/computer document * Subjective Chief complaint: NONE Objective General VS/I O: 24 hour I O ending at 0700: 08/08 0700 08/07 1900 Intake Total 240 1120 Output Total 300 Balance 240 820 Intake, Oral 240 1120 Number 1 Bowel Movements Number Voids 3 Output, Urine 300 Patient 88.1 kg Weight Weight Standing scale Measurement Method Vital Signs: Date Time Temp Pulse Resp B/P B/P Pulse O2 O2 F low FiO2 Mean Ox Delivery Rate 08/08 1137 97.9 70 14 129/67 87 95 08/08 0647 98.4 73 16 150/77 0.0 95 Room air 08/08 0400 70 94 08/08 0359 97.9 72 14 140/71 0.0 88 Room air 08/08 0110 98.2 79 16 137/71 0.0 93 Room air 08/07 2255 97.9 77 14 126/68 0.0 92 Room air 08/07 2102 97 Room air 21 08/07 1831 97.9 80 14 135/61 0.0 92 Room air 08/07 1828 97.9 82 14 168/85 0.0 91 Nasal cannula 08/07 1537 97.5 78 12 168/85 0.0 95 Room air PATIENT WEIGHT: Weight (lb): 194 Weight (oz): 3.64 Weight (kg): 88.100 Medications: Active Meds + DC'd Last 24 Hrs Methocarbamol (ROBAXIN) 500 MG Q8H PRN PRN PO Amiodarone HCl (CORDARONE) 200 MG BID PO Ipratropium [place] (ATROVENT) 500 MCG RTQ2H PRN PRN INH Cyanocobalamin (Vitamin B-12 500 mcg tab) 500 MC G DAILY PO Ferrous Sulfate (FERROUS SULFATE) 325 MG DAILY P O Bisacodyl (DULCOLAX) 10 MG ONCE PRN RECTAL Mupirocin (BACTROBAN 2% 22 GM OINTMENT) 1 APPLIC BID NASAL Atorvastatin Calcium (LIPITOR) 40 MG 2100 PO Clopidogrel Bisulfate (Plavix) 75 MG DAILY PO Polyethylene Glycol (MIRALAX) 17 GM DAILY PO Ipratropium [place] (ATROVENT) 500 MCG RTQ6H PRN PRN INH Pantoprazole (PROTONIX) 40 MG DAILY@0600 PO Docusate Sodium (COLACE) 100 MG BID PO Metoprolol Tartrate (LOPRESSOR) 12.5 MG Q12HR PO Sennosides (Senna Lax 8.6 MG TABLET) 17.2 MG BED TIME PO Aspirin (ASPIRIN) 81 MG DAILY PO Acetaminophen (TYLENOL) 650 MG Q4H PRN PRN PO Acetaminophen (TYLENOL) 650 MG Q4H PRN PRN RECTA L Calcium Chloride (CALCIUM CHLORIDE) 1 GM ASDIR PRN IV Dextrose/Water (DEXTROSE 10% IN WATER) 125 ML DIR PRN IV (CKD) Dextrose/Water (DEXTROSE 10% IN WATER) 250 ML DIR PRN IV (CKD) Epinephrine (ADRENALIN CHLORIDE) 4 MG ASDIR IV Dextrose/Water (DEXTROSE 5% WATER) 246 ML Glucagon (GLUCAGON) 1 MG ASDIR PRN IM Insulin Human Regular (HumuLIN R) 100 UNIT ASDIR IV (CKD) Sodium Chloride (SODIUM CHLORIDE 0.9%) 99 ML Magnesium Sulfate (MAGNESIUM SULFATE 4GM/SWFI 10 0ML) 100 ML ASDIR PRN IV Magnesium Sulfate (MAGNESIUM SULFATE 2GM/SWFI 50 ML) 50 ML ASDIR PRN IV Magnesium Sulfate/Dextrose (MAGNESIUM SULFATE 1G M/D5W 100ML) 100 ML ASDIR PRN IV Nitroglycerin/Dextrose (NITROGLYCERIN 50,000MCG/ D5W 250ML) 250 ML ASDIR IV Norepinephrine Bitartrate (NOREPINEPHRINE 8 MG/N S 250 ML) 250 ML TITRATE IV Ondansetron HCl (ZOFRAN) 4 MG Q6H PRN PRN IV Oxycodone HCl (ROXICODONE) 5 MG Q4H PRN PRN PO ( DC) Oxycodone HCl (ROXICODONE) 10 MG Q4H PRN PRN PO (DC) Potassium Chloride (KCL 20MEQ/SWFI 100ML) 100 ML ASDIR PRN IV Sodium Bicarbonate (SODIUM BICARBONATE) 50 MEQ A SDIR PRN IV Prednisone (predniSONE) 2 MG C BK PO Status post: 07/27 LHC 08/02 CABG x 4. Physical Exam General appearance: awake Head/Eyes: atraumatic, PERRL ENT: moist mucosal membranes Neck: no JVD Cardiovascular: CV assessment: regular rate and rhythm, no murm ur Respiratory: decreased breath sounds, no distres s Abdomen: soft, non-tender, normal bowel sounds, no distention, no guarding Genitourinary: no flank pain, no urinary cathete r Upper extremity: UE assessment: normal temperature, no edema Lower extremity: LE assessment: normal temperature Neuro/INSURANCE WRITER: alert, oriented X 3, normal speech Skin: dry, intact Psychiatry: normal affect Results Findings/Data: Laboratory Tests 08/08 441 Chemistry Sodium (134 - 147 mEq/L) 141 Potassium (3.4 - 5.0 mEq/L) 3.7 Chloride (100 - 108 mEq/L) 108 Carbon Dioxide (21 - 33 mEq/l) 25 Anion Gap (0 - 20) 12 BUN (7 - 18 mg/dL) 11 Creatinine (0.6 - 1.3 mg/dL) 0.8 Glomerular Filtr Rate (80 - 90) 96.4 H Glucose (70 - 110 mg/dL) 102 Calcium (8.0 - 10.5 mg/dL) 8.3 Phosphorus (2.5 - 4.9 MG/DL) 4.3 Magnesium (1.80 - 2.40 mg/dL) 2.05 Laboratory Tests 08/08 441 Hematology WBC (4.5 - 11.0 x10 3/uL) 11.3 H RBC (4.00 - 5.60 x10 6/uL) 2.39 L Hgb (12.5 - 16.9 g/dL) 7.6 L Hct (37.5 - 50.7 %) 21.9 L MCV (81.0 - 99.0 fL) 91.6 MCH (27.0 - 33.0 pg) 31.8 MCHC (33.0 - 37.0 g/dL) 34.7 RDW (11.5 - 14.5 %) 14.2 Plt Count (150 - 400 x10 3/uL) 223 MPV (7.0 - 9.0 fL) 11.0 H Neut % (Auto) (56.0 - 77.0 %) 67.6 Lymph % (Auto) (14.0 - 32.0 %) 17.1 Stephenson % (Auto) (4.8 - 9.0 %) 12.0 H Eos % (Auto) (0.3 - 3.7 %) 2.1 Baso % (Auto) (0.0 - 2.0 %) 0.4 Neut # (Auto) (2.0 - 7.6 x10 3/uL) 7.64 H Lymph # (Auto) (1.0 - 3.8 x10 3/uL) 1.93 Stephenson # (Auto) (0.1 - 0.8 x10 3/uL) 1.36 H Eos # (Auto) (0.0 - 0.2 x10 3/uL) 0.24 H Baso # (Auto) (0.0 - 0.2 x10 3/uL) 0.04 Abs Immat Gran (auto) (0.00 - 0.03 x10 3/uL) 0. 09 H Add Manual Diff NO Immature Gran % (0.0 - 2.0 %) 0.8 Nucleated RBC % (0 - 0 %) 0.2 H Nucleated RBCs # (Man) (0.0 - 0.1 x10 3/uL) 0. 02 Laboratory Tests 08/08 0442 Chemistry Magnesium (1.80 - 2.40 mg/dL) 2.05 Radiology data: Recent Impressions: ULTRASOUND - [place] 08/07 1309 Report Impression - Status: SIGNED Entered: 08/07/2022 8255 IMPRESSION: No evidence of deep vein thrombosis. Impression By: Keri - Esvin Guardado M.D. RADIOLOGY - XR CHEST 1 V 08/08 7691 Report Impression - Status: SIGNED Entered: 08/08/2022 0925 IMPRESSION: 1. Improved left basilar opacities. 2. Tiny curvilinear density at the left apex, eq uivocal for a small pneumothorax, involving less than 10% volu me. Attention on follow-up exam. Impression By: [email or web address] - Allan Diana M.D. Results: labs reviewed, vital signs reviewed, vi radha signs stable Treatment Prophylaxis Treatment Prophylaxis Drain(s)/tube(s): Drain(s)/tube(s): bertha (x2) Diagnosis, Assessment Plan Consultants: anesthesiology, cardiology, cardiov ascular surgery Free Text DxA P Notes Free Text DxA P Notes: Mr. Daly is a pleasant 66 y/o male w/ PMHx: CAD s/p PCI, HTN, HLD, T2DM, GERD , temporal arteritis (on prednisone) presented t o [facility] for elective PCI. - CAD s/p CABG x 4 (MITCHELL to LAD, SVG to M1, M2, PDA) EF 55 to 60% with grade 1 diastolic dysfunction On atorvastatin, plavix, ASA, amiodarone and Me toprolol. - HTN. BP controlled. On Metoprololol. - HLD. On statins. - Chronic temporal arteritis. - GERD. Per IM. Encourage deep breath, cough, IS. Doing better. MDM per Dr. Osorio. 08/07/22: -CABG x 4 (MITCHELL-LAD, SVG-OM1, SVG-OM2, SVG-PDA) 08-02-22 -ALAA -TELE; NSR, ON AMIOD 200 BID -STABLE -POSSIBLE DC HOME, IF OK WITH CV SURGERY 08/08/22: -PLANS FOR DC HOME TOMORROW AM -STABLE Electronically Signed by Melisa Gamboa MD on 0 08/08/22 at 2246 RPT #:[id number] END OF REPORT 2022-08-07 13:28:00-00:00 [facility] Hospitalist Progress Note REPORT#:[id number] REPORT STATUS: Signed DATE:08/07/22 TIME: 1328 PATIENT: MARY DALY UNIT #: [id number] ROOM[place]BED: [facility] [place] : 53 AGE: 66 SEX: M ATTEND: Marcella Loaiza od, MD ADM AUTHOR: Jay Jay Roman DO * ALL edits or amendments must be made on the [employer]/computer document * Subjective Chief complaint: He is doing well. On RA and Breathing is improved. Review of Systems Constitutional: Denies: chills, generalized weakness. ENT: Denies: nasal congestion, sore throat. Respiratory: Reports: SOB. Denies: wheezing. Cardiovascular: Denies: chest pain, palpitations. GI: Denies: abdominal pain, nausea, vomiting. : Denies: dysuria, frequency. Neuro: Denies: confusion, dizziness. Psych: Denies: agitation, anxiety. Objective General VS/I O: Vital Signs: Date Time Temp Pulse Resp B/P B/P Pulse O2 O2 F low FiO2 Mean Ox Delivery Rate 08/07 1144 36.9 75 16 127/61 0.0 93 Nasal cannula 08/07 0753 92 Room air 08/07 0657 36.8 69 16 127/59 0.0 96 Room air 08/07 0430 36.7 71 14 138/79 0.0 91 Room air 08/06 2225 36.6 71 14 126/62 0.0 97 Room air 08/06 202 97 Nasal 2 28 cannula 08/06 2009 36.6 81 14 126/62 0.0 97 Room air 08/07 2007 36.6 81 14 140/60 0.0 95 Nasal cannula 08/06 1918 Nasal 2 cannula 08/06 1615 36.5 80 18 140/65 0.0 94 24 hour I O ending at 0700: 08/07 0700 08/06 1900 Intake Total 1080.00 1250 Output Total 1200 975 Balance -120.00 275 Intake, IV 600.00 Intake, Oral 480 1250 Number Voids 6 Output, Urine 1200 975 Patient 90.1 kg Weight Weight Standing scale Measurement Method PATIENT WEIGHT: Weight (lb): 198 Weight (oz): 10.18 Weight (kg): 90.100 Medications: Active Meds + DC'd Last 24 Hrs Lactulose (LACTULOSE) 15 GM ONCE ONE PO (DC) Amiodarone HCl (CORDARONE) 200 MG BID PO Ipratropium [place] (ATROVENT) 500 MCG RTQ2H PRN PRN INH Cyanocobalamin (Vitamin B-12 500 mcg tab) 500 MC G DAILY PO Ferrous Sulfate (FERROUS SULFATE) 325 MG DAILY P O Bisacodyl (DULCOLAX) 10 MG ONCE PRN RECTAL Mupirocin (BACTROBAN 2% 22 GM OINTMENT) 1 APPLIC BID NASAL Atorvastatin Calcium (LIPITOR) 40 MG 2100 PO Clopidogrel Bisulfate (Plavix) 75 MG DAILY PO Polyethylene Glycol (MIRALAX) 17 GM DAILY PO Ipratropium [place] (ATROVENT) 500 MCG RTQ6H PRN PRN INH Pantoprazole (PROTONIX) 40 MG DAILY@0600 PO Docusate Sodium (COLACE) 100 MG BID PO Gabapentin (NEURONTIN) 200 MG BID PO (DC) Metoprolol Tartrate (LOPRESSOR) 12.5 MG Q12HR PO Sennosides (Senna Lax 8.6 MG TABLET) 17.2 MG BED TIME PO Aspirin (ASPIRIN) 81 MG DAILY PO Acetaminophen (TYLENOL) 650 MG Q4H PRN PRN PO Acetaminophen (TYLENOL) 650 MG Q4H PRN PRN RECTA L Calcium Chloride (CALCIUM CHLORIDE) 1 GM ASDIR P RN IV Dextrose/Water (DEXTROSE 10% IN WATER) 125 ML DIR PRN IV (CKD) Dextrose/Water (DEXTROSE 10% IN WATER) 250 ML DIR PRN IV (CKD) Epinephrine (ADRENALIN CHLORIDE) 4 MG ASDIR IV Dextrose/Water (DEXTROSE 5% WATER) 246 ML Glucagon (GLUCAGON) 1 MG ASDIR PRN IM Insulin Human Regular (HumuLIN R) 100 UNIT ASDIR IV (CKD) Sodium Chloride (SODIUM CHLORIDE 0.9%) 99 ML Magnesium Sulfate (MAGNESIUM SULFATE 4GM/SWFI 10 0ML) 100 ML ASDIR PRN IV Magnesium Sulfate (MAGNESIUM SULFATE 2GM/SWFI 50 ML) 50 ML ASDIR PRN IV Magnesium Sulfate/Dextrose (MAGNESIUM SULFATE 1G M/D5W 100ML) 100 ML ASDIR PRN IV Nitroglycerin/Dextrose (NITROGLYCERIN 50,000MCG/ D5W 250ML) 250 ML ASDIR IV Norepinephrine Bitartrate (NOREPINEPHRINE 8 MG/N S 250 ML) 250 ML TITRATE IV Ondansetron HCl (ZOFRAN) 4 MG Q6H PRN PRN IV Oxycodone HCl (ROXICODONE) 5 MG Q4H PRN PRN PO Oxycodone HCl (ROXICODONE) 10 MG Q4H PRN PRN PO Potassium Chloride (KCL 20MEQ/SWFI 100ML) 100 ML ASDIR PRN IV Sodium Bicarbonate (SODIUM BICARBONATE) 50 MEQ A SDIR PRN IV Sodium Chloride (SODIUM CHLORIDE 0.9%) 1,000 ML .Q20H IV (DC) Sodium Chloride (SODIUM CHLORIDE 0.9%) 250 ML Q2 4H IV (DC) Prednisone (predniSONE) 2 MG C BK PO Physical Exam Head/Eyes: atraumatic, normocephalic, PERRLA Cardiovascular: normal capillary refill, normal heart sounds, regular rate rhythm Respiratory: aerating well, symmetric expansion, no distress Abdomen: non-tender, normal bowel sounds, soft Genitourinary: no bladder distention, no flank p ain, no urinary catheter Extremities: no calf tenderness, no clubbing, no cyanosis Musculoskeletal: no CVA tenderness, no muscle sp asm Neuro/INSURANCE WRITER: alert, oriented X 3, CNII-XII intact Skin: dry, intact Psychiatry: normal affect, normal mood Results Findings/Data: Laboratory Tests 08/07 357 Chemistry Sodium (134 - 147 mEq/L) 138 Potassium (3.4 - 5.0 mEq/L) 4.1 Chloride (100 - 108 mEq/L) 105 Carbon Dioxide (21 - 33 mEq/l) 25 Anion Gap (0 - 20) 12 BUN (7 - 18 mg/dL) 12 Creatinine (0.6 - 1.3 mg/dL) 0.8 Glomerular Filtr Rate (80 - 90) 96.4 H Glucose (70 - 110 mg/dL) 105 Calcium (8.0 - 10.5 mg/dL) 8.4 Magnesium (1.80 - 2.40 mg/dL) 2.00 Laboratory Tests 08/07 357 Hematology WBC (4.5 - 11.0 x10 3/uL) 11.4 H RBC (4.00 - 5.60 x10 6/uL) 2.46 L Hgb (12.5 - 16.9 g/dL) 7.6 L Hct (37.5 - 50.7 %) 24.0 L MCV (81.0 - 99.0 fL) 97.6 MCH (27.0 - 33.0 pg) 30.9 MCHC (33.0 - 37.0 g/dL) 31.7 L RDW (11.5 - 14.5 %) 14.6 H Plt Count (150 - 400 x10 3/uL) 192 MPV (7.0 - 9.0 fL) 11.7 H Neut % (Auto) (56.0 - 77.0 %) 64.9 Lymph % (Auto) (14.0 - 32.0 %) 18.5 Stephenson % (Auto) (4.8 - 9.0 %) 12.7 H Eos % (Auto) (0.3 - 3.7 %) 3.0 Baso % (Auto) (0.0 - 2.0 %) 0.3 Neut # (Auto) (2.0 - 7.6 x10 3/uL) 7.37 Lymph # (Auto) (1.0 - 3.8 x10 3/uL) 2.10 Stephenson # (Auto) (0.1 - 0.8 x10 3/uL) 1.44 H Eos # (Auto) (0.0 - 0.2 x10 3/uL) 0.34 H Baso # (Auto) (0.0 - 0.2 x10 3/uL) 0.03 Abs Immat Gran (auto) (0.00 - 0.03 x10 3/uL) 0 .07 H Add Manual Diff NO Immature Gran % (0.0 - 2.0 %) 0.6 Nucleated RBC % (0 - 0 %) 0.2 H Nucleated RBCs # (Man) (0.0 - 0.1 x10 3/uL) 0.0 2 Treatment Prophylaxis Treatment Prophylaxis Oxygen: room air Drain(s)/tube(s): Drain(s)/tube(s): bertha (x2) Diagnosis, Assessment Plan Consultants: anesthesiology, cardiology, cardiov ascular surgery Free Text DxA P Notes Free text DxA P notes: Assessment and Plan: - Multivessel CAD, s/p CABG - CP due to CAD. - Hypomagnesemia. - HX of HTN/HLD and CAD. - Anemia - Leucocytosis - S/P CABG x 4 (MITCHELL to LAD, saphenous vein to f irst marginal, saphenous vein to second marginal, saphenou s vein to PDA, Amputation of left atrial appendage, Endoscopic vein harvest (left greater saphenous vein) and Posterior pericardiotomy. Plan: cvn1 Will be dc home soon. Agrressive IS and PT/OT. Monitor Chest tube outpt. Pain meds. Antiemetics. Continue BB, Lipitor and ASA. Follow labs and repalce as needed. Monitor. 08/06 doing well y on 2L O2, using spirometer ambulating around room pain meds IS, PT, OT BB, aspirin, lipitor will likely go home soon DVT ppx Electronically Signed by Jay Jay Roman DO on 07/22 09/12 at 2017 RPT #:[id number] END OF REPORT 2022-08-07 12:44:00-00:00 [facility] ([facility]) Cardiology Progress Note REPORT#:[id number] REPORT STATUS: Signed DATE:08/07/22 TIME: 1244 PATIENT: MARY DALY UNIT #: [id number] ROOM/BED: [place] [id number] : 53 AGE: 66 SEX: M ATTEND: Marcella Loaiza od, MD ADM AUTHOR: Melisa Gamboa MD * ALL edits or amendments must be made on the [employer]/computer document * Subjective Chief complaint: NONE Objective General VS/I O: 24 hour I O ending at 0700: 08/07 0700 08/06 1900 Intake Total 1080.00 1250 Output Total 1200 975 Balance -120.00 275 Intake, IV 600.00 Intake, Oral 480 1250 Number Voids 6 Output, Urine 1200 975 Patient 90.1 kg Weight Weight Standing scale Measurement Method Vital Signs: Date Time Temp Pulse Resp B/P B/P Pulse O2 O2 F low FiO2 Mean Ox Delivery Rate 08/07 1144 98.4 75 16 127/61 0.0 93 Nasal cannula 08/07 0753 92 Room air 08/07 0657 98.2 69 16 127/59 0.0 96 Room air 08/07 0430 98.1 71 14 138/79 0.0 91 Room air 08/06 2225 97.9 71 14 126/62 0.0 97 Room air 08/06 2025 97 Nasal 2 28 cannula 08/06 2009 97.9 81 14 126/62 0.0 97 Room air 08/07 2007 97.9 81 14 140/60 0.0 95 Nasal cannula 08/06 1918 Nasal 2 cannula 08/06 1615 97.7 80 18 140/65 0.0 94 PATIENT WEIGHT: Weight (lb): 198 Weight (oz): 10.18 Weight (kg): 90.100 Medications: Active Meds + DC'd Last 24 Hrs Lactulose (LACTULOSE) 15 GM ONCE ONE PO (DC) Amiodarone HCl (CORDARONE) 200 MG BID PO Ipratropium [place] (ATROVENT) 500 MCG RTQ2H PRN PRN INH Cyanocobalamin (Vitamin B-12 500 mcg tab) 500 MC G DAILY PO Ferrous Sulfate (FERROUS SULFATE) 325 MG DAILY P O Bisacodyl (DULCOLAX) 10 MG ONCE PRN RECTAL Mupirocin (BACTROBAN 2% 22 GM OINTMENT) 1 APPLIC BID NASAL Atorvastatin Calcium (LIPITOR) 40 MG 2100 PO Clopidogrel Bisulfate (Plavix) 75 MG DAILY PO Polyethylene Glycol (MIRALAX) 17 GM DAILY PO Ipratropium [place] (ATROVENT) 500 MCG RTQ6H PRN PRN INH Pantoprazole (PROTONIX) 40 MG DAILY@0600 PO Docusate Sodium (COLACE) 100 MG BID PO Gabapentin (NEURONTIN) 200 MG BID PO (DC) Metoprolol Tartrate (LOPRESSOR) 12.5 MG Q12HR PO Sennosides (Senna Lax 8.6 MG TABLET) 17.2 MG BED TIME PO Aspirin (ASPIRIN) 81 MG DAILY PO Acetaminophen (TYLENOL) 650 MG Q4H PRN PRN PO Acetaminophen (TYLENOL) 650 MG Q4H PRN PRN RECTA L Calcium Chloride (CALCIUM CHLORIDE) 1 GM ASDIR P RN IV Dextrose/Water (DEXTROSE 10% IN WATER) 125 ML DIR PRN IV (CKD) Dextrose/Water (DEXTROSE 10% IN WATER) 250 ML DIR PRN IV (CKD) Epinephrine (ADRENALIN CHLORIDE) 4 MG ASDIR IV Dextrose/Water (DEXTROSE 5% WATER) 246 ML Glucagon (GLUCAGON) 1 MG ASDIR PRN IM Insulin Human Regular (HumuLIN R) 100 UNIT ASDIR IV (CKD) Sodium Chloride (SODIUM CHLORIDE 0.9%) 99 ML Magnesium Sulfate (MAGNESIUM SULFATE 4GM/SWFI 10 0ML) 100 ML ASDIR PRN IV Magnesium Sulfate (MAGNESIUM SULFATE 2GM/SWFI 50 ML) 50 ML ASDIR PRN IV Magnesium Sulfate/Dextrose (MAGNESIUM SULFATE 1G M/D5W 100ML) 100 ML ASDIR PRN IV Nitroglycerin/Dextrose (NITROGLYCERIN 50,000MCG/ D5W 250ML) 250 ML ASDIR IV Norepinephrine Bitartrate (NOREPINEPHRINE 8 MG/N S 250 ML) 250 ML TITRATE IV Ondansetron HCl (ZOFRAN) 4 MG Q6H PRN PRN IV Oxycodone HCl (ROXICODONE) 5 MG Q4H PRN PRN PO Oxycodone HCl (ROXICODONE) 10 MG Q4H PRN PRN PO Potassium Chloride (KCL 20MEQ/SWFI 100ML) 100 ML ASDIR PRN IV Sodium Bicarbonate (SODIUM BICARBONATE) 50 MEQ A SDIR PRN IV Sodium Chloride (SODIUM CHLORIDE 0.9%) 1,000 ML .Q20H IV (DC) Sodium Chloride (SODIUM CHLORIDE 0.9%) 250 ML Q2 4H IV (DC) Prednisone (predniSONE) 2 MG C BK PO Status post: 07/27 LHC 08/02 CABG x 4. Physical Exam General appearance: awake Head/Eyes: atraumatic, PERRL ENT: moist mucosal membranes Neck: no JVD Cardiovascular: CV assessment: regular rate and rhythm, no murm ur Respiratory: decreased breath sounds, no distres s Abdomen: soft, non-tender, normal bowel sounds, no distention, no guarding Genitourinary: no flank pain, no urinary cathete r Upper extremity: UE assessment: normal temperature, no edema Lower extremity: LE assessment: normal temperature Neuro/INSURANCE WRITER: alert, oriented X 3, normal speech Skin: dry, intact Psychiatry: normal affect Results Findings/Data: Laboratory Tests 08/07 0358 Chemistry Sodium (134 - 147 mEq/L) 138 Potassium (3.4 - 5.0 mEq/L) 4.1 Chloride (100 - 108 mEq/L) 105 Carbon Dioxide (21 - 33 mEq/l) 25 Anion Gap (0 - 20) 12 BUN (7 - 18 mg/dL) 12 Creatinine (0.6 - 1.3 mg/dL) 0.8 Glomerular Filtr Rate (80 - 90) 96.4 H Glucose (70 - 110 mg/dL) 105 Calcium (8.0 - 10.5 mg/dL) 8.4 Magnesium (1.80 - 2.40 mg/dL) 2.00 Laboratory Tests 08/07 0358 Hematology WBC (4.5 - 11.0 x10 3/uL) 11.4 H RBC (4.00 - 5.60 x10 6/uL) 2.46 L Hgb (12.5 - 16.9 g/dL) 7.6 L Hct (37.5 - 50.7 %) 24.0 L MCV (81.0 - 99.0 fL) 97.6 MCH (27.0 - 33.0 pg) 30.9 MCHC (33.0 - 37.0 g/dL) 31.7 L RDW (11.5 - 14.5 %) 14.6 H Plt Count (150 - 400 x10 3/uL) 192 MPV (7.0 - 9.0 fL) 11.7 H Neut % (Auto) (56.0 - 77.0 %) 64.9 Lymph % (Auto) (14.0 - 32.0 %) 18.5 Stephenson % (Auto) (4.8 - 9.0 %) 12.7 H Eos % (Auto) (0.3 - 3.7 %) 3.0 Baso % (Auto) (0.0 - 2.0 %) 0.3 Neut # (Auto) (2.0 - 7.6 x10 3/uL) 7.37 Lymph # (Auto) (1.0 - 3.8 x10 3/uL) 2.10 Stephenson # (Auto) (0.1 - 0.8 x10 3/uL) 1.44 H Eos # (Auto) (0.0 - 0.2 x10 3/uL) 0.34 H Baso # (Auto) (0.0 - 0.2 x10 3/uL) 0.03 Abs Immat Gran (auto) (0.00 - 0.03 x10 3/uL) 0. 07 H Add Manual Diff NO Immature Gran % (0.0 - 2.0 %) 0.6 Nucleated RBC % (0 - 0 %) 0.2 H Nucleated RBCs # (Man) (0.0 - 0.1 x10 3/uL) 0.0 2 Laboratory Tests 08/07 0358 Chemistry Magnesium (1.80 - 2.40 mg/dL) 2.00 Results: labs reviewed, vital signs reviewed, vi radha signs stable Treatment Prophylaxis Treatment Prophylaxis Drain(s)/tube(s): Drain(s)/tube(s): bertha (x2) Diagnosis, Assessment Plan Consultants: anesthesiology, cardiology, cardiov ascular surgery Free Text DxA P Notes Free Text DxA P Notes: Mr. Daly is a pleasant 66 y/o male w/ PMHx: CAD s/p PCI, HTN, HLD, T2DM, GERD , temporal arteritis (on prednisone) presented t o [facility] for elective PCI. - CAD s/p CABG x 4 (MITCHELL to LAD, SVG to M1, M2, PDA) EF 55 to 60% with grade 1 diastolic dysfunction On atorvastatin, plavix, ASA, amiodarone and Me toprolol. - HTN. BP controlled. On Metoprololol. - HLD. On statins. - Chronic temporal arteritis. - GERD. Per IM. Encourage deep breath, cough, IS. Doing better. MDM per Dr. Osorio. 08/07/22: -CABG x 4 (MITCHELL-LAD, SVG-OM1, SVG-OM2, SVG-PDA) 08-02-22 -ALAA -TELE; NSR, ON AMIOD 200 BID -STABLE -POSSIBLE DC HOME, IF OK WITH CV SURGERY Electronically Signed by Melisa Gamboa MD on 0 08/07/22 at 1814 RPT #:[id number] END OF REPORT 2022-08-06 14:19:00-00:00 [facility]L [facility] Hospitalist Progress Note REPORT#:[id number] REPORT STATUS: Signed DATE:08/06/22 TIME: 1419 PATIENT: MARY DALY UNIT #: [id number] ROOM/BED: 3346-1 : 53 AGE: 66 SEX: M ATTEND: Marcella Loaiza od, MD ADM AUTHOR: Liz Orozco MD * ALL edits or amendments must be made on the el [email or web address] document * Subjective Chief complaint: He is doing well. On RA and Breathing is improved. Review of Systems All systems rev neg: except as noted Objective General VS/I O: Vital Signs: Date Time Temp Pulse Resp B/P B/P Pulse O2 O2 F low FiO2 Mean Ox Delivery Rate 08/06 1143 36.9 69 18 125/74 0.0 95 08/06 1110 94 Nasal 2 cannula 08/06 1100 Nasal 2 cannula 08/06 0825 94 Room air 08/06 0724 37.1 74 18 94/50 0.0 95 08/06 0350 36.6 74 14 119/55 0.0 92 Nasal cannula 08/05 2302 36.6 65 14 125/67 0.0 100 Room air 08/05 2200 75 19 122/58 83 87 08/05 2100 81 29 130/62 90 86 08/05 2057 82 29 135/67 93 85 08/05 2000 Nasal 2 cannula 08/05 1817 36.6 64 14 143/63 0.0 98 Nasal cannula 08/05 1800 87 43 143/63 91 91 08/05 1701 82 46 142/61 93 89 08/05 1700 82 44 87 08/05 1629 95 Nasal 2 cannula 08/05 1600 76 16 136/66 91 89 08/05 1500 74 18 136/61 88 98 24 hour I O ending at 0700: 08/06 0700 08/05 1900 Intake Total Output Total Balance Patient 90.6 kg Weight Weight Bed scale Measurement Method PATIENT WEIGHT: Weight (lb): 199 Weight (oz): 11.82 Weight (kg): 90.600 Medications: Active Meds + DC'd Last 24 Hrs Amiodarone HCl (CORDARONE) 200 MG BID PO Ipratropium [place] (ATROVENT) 500 MCG RTQ2H PRN PRN INH Cyanocobalamin (Vitamin B-12 500 mcg tab) 500 MC G DAILY PO Ferrous Sulfate (FERROUS SULFATE) 325 MG DAILY P O Bisacodyl (DULCOLAX) 10 MG ONCE PRN RECTAL Mupirocin (BACTROBAN 2% 22 GM OINTMENT) 1 APPLIC BID NASAL Atorvastatin Calcium (LIPITOR) 40 MG 2100 PO Clopidogrel Bisulfate (Plavix) 75 MG DAILY PO Polyethylene Glycol (MIRALAX) 17 GM DAILY PO Ipratropium [place] (ATROVENT) 500 MCG RTQ6H PRN PRN INH Pantoprazole (PROTONIX) 40 MG DAILY@0600 PO Docusate Sodium (COLACE) 100 MG BID PO Gabapentin (NEURONTIN) 200 MG BID PO Metoprolol Tartrate (LOPRESSOR) 12.5 MG Q12HR PO Sennosides (Senna Lax 8.6 MG TABLET) 17.2 MG BED TIME PO Aspirin (ASPIRIN) 81 MG DAILY PO Amiodarone HCl (CORDARONE) 200 MG TID PO (DC) Acetaminophen (TYLENOL) 650 MG Q4H PRN PRN PO Acetaminophen (TYLENOL) 650 MG Q4H PRN PRN RECTA L Calcium Chloride (CALCIUM CHLORIDE) 1 GM ASDIR P RN IV Dextrose/Water (DEXTROSE 10% IN WATER) 125 ML DIR PRN IV (CKD) Dextrose/Water (DEXTROSE 10% IN WATER) 250 ML DIR PRN IV (CKD) Epinephrine (ADRENALIN CHLORIDE) 4 MG ASDIR IV Dextrose/Water (DEXTROSE 5% WATER) 246 ML Glucagon (GLUCAGON) 1 MG ASDIR PRN IM Insulin Human Regular (HumuLIN R) 100 UNIT ASDIR IV (CKD) Sodium Chloride (SODIUM CHLORIDE 0.9%) 99 ML Magnesium Sulfate (MAGNESIUM SULFATE 4GM/SWFI 10 0ML) 100 ML ASDIR PRN IV Magnesium Sulfate (MAGNESIUM SULFATE 2GM/SWFI 50 ML) 50 ML ASDIR PRN IV Magnesium Sulfate/Dextrose (MAGNESIUM SULFATE 1G M/D5W 100ML) 100 ML ASDIR PRN IV Nitroglycerin/Dextrose (NITROGLYCERIN 50,000MCG/ D5W 250ML) 250 ML ASDIR IV Norepinephrine Bitartrate (NOREPINEPHRINE 8 MG/N S 250 ML) 250 ML TITRATE IV Ondansetron HCl (ZOFRAN) 4 MG Q6H PRN PRN IV Oxycodone HCl (ROXICODONE) 5 MG Q4H PRN PRN PO Oxycodone HCl (ROXICODONE) 10 MG Q4H PRN PRN PO Potassium Chloride (KCL 20MEQ/SWFI 100ML) 100 ML ASDIR PRN IV Sodium Bicarbonate (SODIUM BICARBONATE) 50 MEQ A SDIR PRN IV Sodium Chloride (SODIUM CHLORIDE 0.9%) 1,000 ML .Q20H IV Sodium Chloride (SODIUM CHLORIDE 0.9%) 250 ML Q2 4H IV Prednisone (predniSONE) 2 MG C BK PO Physical Exam General appearance: obese Head/Eyes: atraumatic, normocephalic, PERRLA Cardiovascular: normal capillary refill, normal heart sounds, regular rate rhythm Respiratory: aerating well, symmetric expansion, no distress Abdomen: non-tender, normal bowel sounds, soft Genitourinary: no bladder distention, no flank p ain, no urinary catheter Extremities: no calf tenderness, no clubbing, no cyanosis Musculoskeletal: no CVA tenderness, no muscle sp asm Neuro/INSURANCE WRITER: alert, oriented X 3, CNII-XII intact Skin: dry, intact Treatment Prophylaxis Treatment Prophylaxis Oxygen: room air Diagnosis, Assessment Plan Free Text DxA P Notes Free text DxA P notes: Assessment and Plan: - Multivessel CAD. - CP due to CAD. - Hypomagnesemia. - HX of HTN/HLD and CAD. - S/P CABG x 4 (MITCHELL to LAD, saphenous vein to f irst marginal, saphenous vein to second marginal, saphenou s vein to PDA, Amputation of left atrial appendage, Endoscopic vein harvest (left greater saphenous vein) and Posterior pericardiotomy. Plan: CVICU. Will be dc home soon. Agrressive IS and PT/OT. Monitor Chest tube outpt. Pain meds. Antiemetics. Continue BB, Lipitor and ASA. Follow labs and repalce as needed. Monitor. 08/06 doing well Chest tube removed yesterday on 2L O2, using spirometer ambulating around room pain meds IS, PT, OT BB, aspirin, lipitor will likely go home soon Electronically Signed by Liz Orozco MD on at 1421 RPT #:[id number] END OF REPORT 2022-08-06 09:23:00-00:00 [facility]ACL [facility] Cardioth[facility]acic Surgery Prog REPORT#:[id number] REPORT STATUS: Signed DATE:08/06/22 TIME: 922 PATIENT: MARY DALY UNIT #: [id number] ROOM[address]BED: [address] : [address] AGE: 66 SEX: M ATTEND: Marcella Loaiza od, MD ADM AUTHOR: Ludin Mccurdy * ALL edits or amendments must be made on the el [employer]/computer document * General Post-op: day 4 Status post: 08/02/22 CABG x 4 (MITCHELL-LAD, SVG-OM1, SVG-OM2, SVG-PDA) ROBBIE SHELTON (LGSV) Posterior pericardiotomy Subjective Chief complaint: Chest Pains, CAD. Review of Systems Constitutional: Denies: fatigue, fever, generalized weakness. Skin: Denies: rash, swelling. Allergy/Immun: Denies: itching, rhinorrhea. ENT: Denies: earache, hearing loss. Respiratory: Denies: SOB, wheezing. Cardiovascular: Denies: edema, orthopnea. GI: Denies: constipation, diarrhea. : Denies: dysuria, hematuria. Musculoskeletal: Denies: joint pain, joint swelling. Heme: Denies: bleeding, bruising. Neuro: Denies: confusion. Psych: Denies: anxiety, confusion. All systems rev neg: except as marked Objective General VS/I O Last Documented: Result Date Time Pulse Ox 95 08/07 723 B/P 94/50 08/07 723 B/P Mean 0.0 08/07 723 Temp 37.1 08/07 723 Pulse 74 08/06 07 Resp 18 08/06 07 O2 Delivery Nasal cannula 08/06 0350 O2 Flow Rate 2 08/05 2000 24 hour I O ending at 0700: 08/06 0700 08/05 1900 Intake Total Output Total Balance Patient 90.6 kg Weight Weight Bed scale Measurement Method PATIENT WEIGHT: Weight (lb): 199 Weight (oz): 11.82 Weight (kg): 90.600 Dietitian Nutrition assessment The data set between the solid lines has been im ported from the dietitian's assessment. BMI Calculated: 28.7 Nutrition related diagnosis: Nutrition diagnosis details: Nutrition problem: Increased nutrient needs Nutrition etiology: Acute illness Nutrition signs and symptoms: ESTIMATED NEEDS S/ P SURGERY Nutrition prescription: 1. CONTINUE CARDIAC DIET . HONOR FOOD PREFERENCES APPROPRIATE WITH DIET ORDER. 2. PROVIDE GLUCERNA TID WITH MEALS. 3. MONITOR PO, WT, LABS, BM 4. HEALTHY HEART DIET EDUCATION STEPHAN OR TO DISCHARGE. Dietitian name: Connie Anders, DIET Assessment completed: 06/13/23 Physical Exam General appearance: alert, awake, oriented Wound/incision: Location: sternal Site condition: dressing clean dry, dressing in tact HEENT: mucosal membranes moist Neck: full range of motion, non-tender Cardiovascular: BP/pulses equal bilat., regular rate rhythm Respiratory: aerating well, clear to auscultatio n Abdomen: soft, non-tender Extremities: dry, moves all Musculoskeletal: full range of motion, painless range of motion Neuro/INSURANCE WRITER: alert, oriented X 3 Skin: dry, intact Psychiatry: normal affect, normal mood Current Medications Medications: Active Meds + DC'd Last 24 Hrs Amiodarone HCl (CORDARONE) 200 MG BID PO (UNVr) Ipratropium [place] (ATROVENT) 500 MCG RTQ2H PRN PRN INH Furosemide (LASIX 20MG INJ) 20 MG ONCE ONE IV (D C) Magnesium Citrate (MAGNESIUM CITRATE) 150 ML ONC E ONE PO (DC) Cyanocobalamin (Vitamin B-12 500 mcg tab) 500 MC G DAILY PO Ferrous Sulfate (FERROUS SULFATE) 325 MG DAILY P O Bisacodyl (DULCOLAX) 10 MG ONCE PRN RECTAL Mupirocin (BACTROBAN 2% 22 GM OINTMENT) 1 APPLIC BID NASAL Atorvastatin Calcium (LIPITOR) 40 MG 2100 PO Clopidogrel Bisulfate (Plavix) 75 MG DAILY PO Polyethylene Glycol (MIRALAX) 17 GM DAILY PO Ipratropium [place] (ATROVENT) 500 MCG RTQ6H PRN PRN INH Pantoprazole (PROTONIX) 40 MG DAILY@0600 PO Docusate Sodium (COLACE) 100 MG BID PO Gabapentin (NEURONTIN) 200 MG BID PO Metoprolol Tartrate (LOPRESSOR) 12.5 MG Q12HR PO Sennosides (Senna Lax 8.6 MG TABLET) 17.2 MG BED TIME PO Aspirin (ASPIRIN) 81 MG DAILY PO Ipratropium [place] (ATROVENT) 500 MCG RTQ4H INH (DC) Amiodarone HCl (CORDARONE) 200 MG TID PO (DCr) Acetaminophen (TYLENOL) 650 MG Q4H PRN PRN PO Acetaminophen (TYLENOL) 650 MG Q4H PRN PRN RECTA L Calcium Chloride (CALCIUM CHLORIDE) 1 GM ASDIR P RN IV Dextrose/Water (DEXTROSE 10% IN WATER) 125 ML DIR PRN IV (CKD) Dextrose/Water (DEXTROSE 10% IN WATER) 250 ML DIR PRN IV (CKD) Epinephrine (ADRENALIN CHLORIDE) 4 MG ASDIR IV Dextrose/Water (DEXTROSE 5% WATER) 246 ML Glucagon (GLUCAGON) 1 MG ASDIR PRN IM Insulin Human Regular (HumuLIN R) 100 UNIT ASDIR IV (CKD) Sodium Chloride (SODIUM CHLORIDE 0.9%) 99 ML Magnesium Sulfate (MAGNESIUM SULFATE 4GM/SWFI 10 0ML) 100 ML ASDIR PRN IV Magnesium Sulfate (MAGNESIUM SULFATE 2GM/SWFI 50 ML) 50 ML ASDIR PRN IV Magnesium Sulfate/Dextrose (MAGNESIUM SULFATE 1G M/D5W 100ML) 100 ML ASDIR PRN IV Nitroglycerin/Dextrose (NITROGLYCERIN 50,000MCG/ D5W 250ML) 250 ML ASDIR IV Norepinephrine Bitartrate (NOREPINEPHRINE 8 MG/N S 250 ML) 250 ML TITRATE IV Ondansetron HCl (ZOFRAN) 4 MG Q6H PRN PRN IV Oxycodone HCl (ROXICODONE) 5 MG Q4H PRN PRN PO Oxycodone HCl (ROXICODONE) 10 MG Q4H PRN PRN PO Potassium Chloride (KCL 20MEQ/SWFI 100ML) 100 ML ASDIR PRN IV Sodium Bicarbonate (SODIUM BICARBONATE) 50 MEQ A SDIR PRN IV Sodium Chloride (SODIUM CHLORIDE 0.9%) 1,000 ML .Q20H IV Sodium Chloride (SODIUM CHLORIDE 0.9%) 250 ML Q2 4H IV Prednisone (predniSONE) 2 MG C BK PO Results Findings/Data: Laboratory Tests 08/06 0416 Chemistry Sodium (134 - 147 mEq/L) 136 Potassium (3.4 - 5.0 mEq/L) 4.4 Chloride (100 - 108 mEq/L) 103 Carbon Dioxide (21 - 33 mEq/l) 24 Anion Gap (0 - 20) 14 BUN (7 - 18 mg/dL) 12 Creatinine (0.6 - 1.3 mg/dL) 0.8 Glomerular Filtr Rate (80 - 90) 96.4 H Glucose (70 - 110 mg/dL) 105 Calcium (8.0 - 10.5 mg/dL) 8.8 Magnesium (1.80 - 2.40 mg/dL) 2.03 Radiology data: Recent Impressions: RADIOLOGY - XR CHEST 1 V 08/06 0620 Report Impression - Status: SIGNED Entered: 08/06/2022 0827 IMPRESSION: Interval removal left chest tube. No pneumothora x. Small posterior layering left pleural effusion may be present. Cardiomegaly, with apparent pulmonary vascular c ongestion and pulmonary edema. Impression By: [email or web address] - Jolene Flaherty Results: labs reviewed, vital signs stable, rycharity m personally rev'd, x-ray personally reviewed, current med profile rev'd Diagnosis, Assessment Plan Free Text A P: This is a 66-year gentleman with past medical history of coronary artery disease status post PCI in the past, with most recent in July 07, 2022, history of temporal arteritis on chronic prednisone since 2 017, diverticulitis, gout, hypertension, hyperlipidemia. The patient reports a histor y of exertional shortness of breath with occasional chest pain over the past several weeks. He underwent cardiac work-up with his cardiologi st and left heart cath was performed yesterday. This revealed multivessel CAD. CV surgery consulted for evaluation for coronary bypass graft. The patient reports a histor y of diabetes, diet controlled for the past several years. Patient denies any history of smoking. Patient admits to drinking 1 alcoholic beverage per day Patient has a strong family history of coronary artery disease with coronary bypass graft surgery in his brother Patient continues to take prednisone 3 mg daily for history of temporal arteritis in 2017 Assessment/plan 1. Coronary artery disease Previous PCI with most recent June 2022, hold Pl avix in preparation for surgery. 2. Hypertension 3. Hyperlipidemia 4. Temporal arteritis in 2017 Continues on prednisone 3 mg We will begin work-up for coronary bypass graft surgery. Patient was seen in exam by Dr. Mccurdy. Further recommendations to follow as work-up und erway Thank you for this kind consultation 07/29/22 Patient resting comfortable, denies complaint Patient received Plavix 75 m g on 07/28/2022 , will obtain repeat platelet response to Plavix test in the a.m. Respiratory: On room air Cardiac: Remains sinus rhythm Carotid Doppler shows no significant carotid art jorge stenosis Vein mapping complete Labs reviewed shows WBCs elevated 16 Urinalysis negative Neurology consult for history of temporal arteri tis, appreciate input We will repeat platelet response to Plav ix. Possibly plan for CABG in the a.m. Patient was seen and examined by 07/30/22 Patient resting comfortable. Denies complaints. Respiratory: On room air 100% Cardiac: Sinus rhythm Last recieved plavix on 07/28/22, Platelet respons e to PLavix this am= 157 Will plan for surgery next week. Neurology eval underway Patient was seen and examined by Dr. Mccurdy Work-up for coronary artery bypass graft surgery undergoing. Timing of surgery pending 07/31/22 Patient resting comfortable. Denies complaints. Respiratory: On room air 100% Cardiac: Sinus rhythm Patient recieved plavix on 07/28/22, Will repeat p latelet response on Tuesday. Will plan for surgery next week Neurology following. Continue steroids for Hx of temporal arteritis. Carotids show no significant dz, CT head complete No flow-limiting stenosis or occlusion along ma daisy intracranial arterial vessels. No acute intracranial process nor bony injury UA negative, HGa1c 6.2 Patient was seen and examined by Dr. Carmella carmen. Plan repeat platelet response to Plavix in the a.m. Plan for CABG on Tuesday08/01/22 Patient transferred to CVICU last night due to chest pains, started on heparin drip per protocol Currently denies any discomfort or chest pains. Alert and oriented x3 Respiratory: On room air Cardiac: Remains sinus rhythm Platelet response to Plavix 191 Patient has been seen and evaluated by neurology Work-up for coronary artery bypass graft is comp lete. Plan for surgery tomorrow. Patient was seen and examined by Dr. Carmella carmen. Plan of care discussed with team 08/02/22 CABG x 4 (MITCHELL-LAD, SVG-OM1, SVG-OM2, SVG-PDA) ALAA EVH (LGSV) Posterior pericardiotomy 08/03/22 POD 1 Patient hemodynamically stable post operatively CXR and labs reviewed Wean off oxygen as tolerated, currently at 2l na sumit cannula Encourage incentive spirometer use and deep frank thing Keep chest tubes and monitor outputs Advance diet as tolerated Glycemic control on insulin drip Pain management Monitor strict I Os DVT ppx with SCDs, GI ppx with PPI Monitor patient closely in CVICU Patient seen and examined wi Dr. Mccurdy, plan of care discussed with ICU team 08/04/22 POD 2 Patient recovering well, no complaints CXR and labs reviewed On 5 L nasal cannula, encourage I-S use and wean off oxygen Discontinue central line and guardado Discontinue MS chest tube, keep LP and monitor o utputs Gentle diuresis with lasix IV 10 x 1, monitor st rict I Os Tolerating diet PT/OT Ambulate Monitor patient in CVICU 08/05 POD 3 AAOx3 Respiratory: On 2 L nasal cannula, wean as timothy ated, Encourage IS, Deep Breathing, CXR reviewed CT drainage 160, will DC today Cardiac: Remains sinus rhythm, pacing wires on s tandby GI: + gas, Continue Bowel regimen UO: 620. Continue PT/OT- out of bed walking Labs reveiwed- replace electrolytes as needed Patient seen and examined by Dr. Mccurdy. Plan o f care discussed with multidisciplinary team 08/06/22 POD 4 Patient resting comfortable, no complaints Labs and cxr reviewed Wean off oxygen as tolerated, on 2l nasal cannul a Encourage I-S use and deep breathing Tolerating diet, bowel regimen PT/OT- ambulate Monitor in CVN 1 Consultants: anesthesiology, cardiology, cardiov ascular surgery at 1548 RPT #:[id number] END OF REPORT 2022-08-06 09:04:00-00:00 [facility]) Cardiology Progress Note REPORT#:[id number] REPORT STATUS: Signed DATE:08/06/22 TIME: 903 PATIENT: MARY DALY UNIT #: [id number] ROOM/BED: [place] [address] : 53 AGE: 66 SEX: M ATTEND: Marcella Loaiza od, MD ADM AUTHOR: Harper Rae [employer] * ALL edits or amendments must be made on the [employer]/computer document * Subjective Chief complaint: chest pain when taking deep breath. Patient reports: No: chest pain, palpitations, shortness of breat h. Nursing reports: No: complaints. Comments: Patient is on RA, reports pain is not controlled yet. He reports chest pain when taking deep breath. Telemetry shows nsr. Objective General VS/I O: 24 hour I O ending at 0700: 08/05 1900 08/06 0700 Intake Total Output Total Balance Patient 90.6 kg Weight Weight Bed scale Measurement Method Vital Signs: Date Time Temp Pulse Resp B/P B/P Pulse O2 O2 F low FiO2 Mean Ox Delivery Rate 08/06 1143 98.4 69 18 125/74 0.0 95 08/06 1110 94 Nasal 2 cannula 08/06 1100 Nasal 2 cannula 08/06 0825 94 Room air 08/06 0724 98.8 74 18 94/50 0.0 95 08/06 0350 97.9 74 14 119/55 0.0 92 Nasal cannula 08/05 2302 97.9 65 14 125/67 0.0 100 Room air 08/05 2200 75 19 122/58 83 87 08/05 2100 81 29 130/62 90 86 08/05 2057 82 29 135/67 93 85 08/05 2000 Nasal 2 cannula 08/05 1817 97.9 64 14 143/63 0.0 98 Nasal cannula 08/05 1800 87 43 143/63 91 91 08/05 1701 82 46 142/61 93 89 08/05 1700 82 44 87 08/05 1629 95 Nasal 2 cannula 08/05 1600 76 16 136/66 91 89 PATIENT WEIGHT: Weight (lb): 199 Weight (oz): 11.82 Weight (kg): 90.600 Medications: Active Meds + DC'd Last 24 Hrs Ipratropium [place] (ATROVENT) 500 MCG RTQ2H PRN PRN INH Furosemide (LASIX 20MG INJ) 20 MG ONCE ONE IV (D C) Magnesium Citrate (MAGNESIUM CITRATE) 150 ML ONC E ONE PO (DC) Cyanocobalamin (Vitamin B-12 500 mcg tab) 500 MC G DAILY PO Ferrous Sulfate (FERROUS SULFATE) 325 MG DAILY P O Bisacodyl (DULCOLAX) 10 MG ONCE PRN RECTAL Mupirocin (BACTROBAN 2% 22 GM OINTMENT) 1 APPLIC BID NASAL Atorvastatin Calcium (LIPITOR) 40 MG 2100 PO Clopidogrel Bisulfate (Plavix) 75 MG DAILY PO Polyethylene Glycol (MIRALAX) 17 GM DAILY PO Ipratropium [place] (ATROVENT) 500 MCG RTQ6H PRN PRN INH Pantoprazole (PROTONIX) 40 MG DAILY@0600 PO Docusate Sodium (COLACE) 100 MG BID PO Gabapentin (NEURONTIN) 200 MG BID PO Metoprolol Tartrate (LOPRESSOR) 12.5 MG Q12HR PO Sennosides (Senna Lax 8.6 MG TABLET) 17.2 MG BED TIME PO Aspirin (ASPIRIN) 81 MG DAILY PO Ipratropium [place] (ATROVENT) 500 MCG RTQ4H INH (DC) Amiodarone HCl (CORDARONE) 200 MG TID PO Acetaminophen (TYLENOL) 650 MG Q4H PRN PRN PO Acetaminophen (TYLENOL) 650 MG Q4H PRN PRN RECTA L Calcium Chloride (CALCIUM CHLORIDE) 1 GM ASDIR P RN IV Dextrose/Water (DEXTROSE 10% IN WATER) 125 ML DIR PRN IV (CKD) Dextrose/Water (DEXTROSE 10% IN WATER) 250 ML DIR PRN IV (CKD) Epinephrine (ADRENALIN CHLORIDE) 4 MG ASDIR IV Dextrose/Water (DEXTROSE 5% WATER) 246 ML Glucagon (GLUCAGON) 1 MG ASDIR PRN IM Insulin Human Regular (HumuLIN R) 100 UNIT ASDIR IV (CKD) Sodium Chloride (SODIUM CHLORIDE 0.9%) 99 ML Magnesium Sulfate (MAGNESIUM SULFATE 4GM/SWFI 10 0ML) 100 ML ASDIR PRN IV Magnesium Sulfate (MAGNESIUM SULFATE 2GM/SWFI 50 ML) 50 ML ASDIR PRN IV Magnesium Sulfate/Dextrose (MAGNESIUM SULFATE 1G M/D5W 100ML) 100 ML ASDIR PRN IV Nitroglycerin/Dextrose (NITROGLYCERIN 50,000MCG/ D5W 250ML) 250 ML ASDIR IV Norepinephrine Bitartrate (NOREPINEPHRINE 8 MG/N S 250 ML) 250 ML TITRATE IV Ondansetron HCl (ZOFRAN) 4 MG Q6H PRN PRN IV Oxycodone HCl (ROXICODONE) 5 MG Q4H PRN PRN PO Oxycodone HCl (ROXICODONE) 10 MG Q4H PRN PRN PO Potassium Chloride (KCL 20MEQ/SWFI 100ML) 100 ML ASDIR PRN IV Sodium Bicarbonate (SODIUM BICARBONATE) 50 MEQ A SDIR PRN IV Sodium Chloride (SODIUM CHLORIDE 0.9%) 1,000 ML .Q20H IV Sodium Chloride (SODIUM CHLORIDE 0.9%) 250 ML Q2 4H IV Prednisone (predniSONE) 2 MG C BK PO Status post: 07/27 LHC 08/02 CABG x 4. Physical Exam General appearance: alert, awake, orient ed, no acute distress, conversational, mental status normal, no respiratory distress Head/Eyes: atraumatic, PERRL ENT: moist mucosal membranes Neck: no JVD Cardiovascular: CV assessment: regular rate and rhythm, no murm ur Respiratory: decreased breath sounds, no distres s Abdomen: soft, non-tender, normal bowel sounds, no distention, no guarding Genitourinary: no flank pain, no urinary cathete r Upper extremity: UE assessment: normal temperature, no edema Lower extremity: LE assessment: normal temperature Neuro/INSURANCE WRITER: alert, oriented X 3, normal speech Skin: dry, intact Psychiatry: normal affect Results Findings/Data: Laboratory Tests 08/06 0416 Chemistry Sodium (134 - 147 mEq/L) 136 Potassium (3.4 - 5.0 mEq/L) 4.4 Chloride (100 - 108 mEq/L) 103 Carbon Dioxide (21 - 33 mEq/l) 24 Anion Gap (0 - 20) 14 BUN (7 - 18 mg/dL) 12 Creatinine (0.6 - 1.3 mg/dL) 0.8 Glomerular Filtr Rate (80 - 90) 96.4 H Glucose (70 - 110 mg/dL) 105 Calcium (8.0 - 10.5 mg/dL) 8.8 Magnesium (1.80 - 2.40 mg/dL) 2.03 Laboratory Tests 08/06 1012 Hematology WBC (4.5 - 11.0 x10 3/uL) 12.9 H RBC (4.00 - 5.60 x10 6/uL) 2.58 L Hgb (12.5 - 16.9 g/dL) 8.3 L Hct (37.5 - 50.7 %) 23.8 L MCV (81.0 - 99.0 fL) 92.2 MCH (27.0 - 33.0 pg) 32.2 MCHC (33.0 - 37.0 g/dL) 34.9 RDW (11.5 - 14.5 %) 14.4 Plt Count (150 - 400 x10 3/uL) 172 MPV (7.0 - 9.0 fL) 11.9 H Neut % (Auto) (56.0 - 77.0 %) 70.0 Lymph % (Auto) (14.0 - 32.0 %) 14.6 Stephenson % (Auto) (4.8 - 9.0 %) 12.8 H Eos % (Auto) (0.3 - 3.7 %) 1.9 Baso % (Auto) (0.0 - 2.0 %) 0.2 Neut # (Auto) (2.0 - 7.6 x10 3/uL) 9.01 H Lymph # (Auto) (1.0 - 3.8 x10 3/uL) 1.88 Stephenson # (Auto) (0.1 - 0.8 x10 3/uL) 1.65 H Eos # (Auto) (0.0 - 0.2 x10 3/uL) 0.24 H Baso # (Auto) (0.0 - 0.2 x10 3/uL) 0.03 Abs Immat Gran (auto) (0.00 - 0.03 x10 3/uL) 0. 07 H Add Manual Diff NO Immature Gran % (0.0 - 2.0 %) 0.5 Nucleated RBC % (0 - 0 %) 0.0 Nucleated RBCs # (Man) (0.0 - 0.1 x10 3/uL) 0.0 0 Laboratory Tests 08/06 0416 Chemistry Magnesium (1.80 - 2.40 mg/dL) 2.03 Radiology data: Recent Impressions: RADIOLOGY - XR CHEST 1 V 08/06 0620 Report Impression - Status: SIGNED Entered: 08/06/2022 1427 IMPRESSION: Interval removal left chest tube. No pneumothora x. Small posterior layering left pleural effusion may be present. Cardiomegaly, with apparent pulmonary vascular c ongestion and pulmonary edema. Impression By: [email or web address] - Jolene Flaherty Results: labs reviewed, vital signs reviewed, vi radha signs stable, rhythm personally rev'd, current med profile rev'd Telemetry Interpretation: nsr Diagnosis, Assessment Plan Consultants: anesthesiology, cardiology, cardiov ascular surgery Plan discussed with: patient, nurse Free Text DxA P Notes Free Text DxA P Notes: Mr. Daly is a pleasant 66 y/o male w/ PMHx: CAD s/p PCI, HTN, HLD, T2DM, GERD , temporal arteritis (on prednisone) presented t o [facility] for elective PCI. - CAD s/p CABG x 4 (MITCHELL to LAD, SVG to M1, M2, PDA) EF 55 to 60% with grade 1 diastolic dysfunction On atorvastatin, plavix, ASA, amiodarone and Me toprolol. - HTN. BP controlled. On Metoprololol. - HLD. On statins. - Chronic temporal arteritis. - GERD. Per IM. Encourage deep breath, cough, IS. Doing better. MDM per Dr. Osorio. Electronically Signed by Harper Rae NP on at 1555 at 1632 RPT #:[id number] END OF REPORT 2022-08-05 10:45:00-00:[address] [facility] ([facility]) Clinical Note REPORT#:[id number] REPORT STATUS: Signed DATE:08/05/22 TIME: 1045 PATIENT: MARY DALY UNIT #: [id number] ROOM/BED: [place] [address] : 53 AGE: 66 SEX: M ATTEND: Marcella Loaiza od, MD ADM AUTHOR: Mary Briggs MD * ALL edits or amendments must be made on the [employer]/computer document * Clinical Note Note: STS RISK SCORES Procedure: Isolated CABG CALCULATE Risk of Mortality: 0.840% Renal Failure: 1.059% Permanent Stroke: 0.840% Prolonged Ventilation: 3.487% DSW Infection: 0.406% Reoperation: 1.579% Morbidity or Mortality: 6.159% Short Length of Stay: 54.349% Long Length of Stay: 2.663% Electronically Signed by Mary Briggs MD on 07/22 07/13 at 1045 RPT #:[id number] END OF REPORT 2022-08-05 10:15:00-00:00 [facility] Hospitalist Progress Note REPORT#:[id number] REPORT STATUS: Signed DATE:08/05/22 TIME: 1015 PATIENT: MARY DALY UNIT #: [id number] [place] [facility] [place] : [place] AGE: 66 SEX: M ATTEND: Marcella Loaiza od, MD ADM AUTHOR: Luther Martin [employer] * ALL edits or amendments must be made on the [employer]/computer document * Luther Martin 08/05/22 1015: Subjective Chief complaint: He is doing well. On RA and Breathing is improved. Chest tube x 1 noted. His CP is improved. No fever, chills. NO N/v/d. Review of Systems Constitutional: Reports: fatigue, generalized weakness. Allergy/Immun: Denies: anaphylaxis, itching, rhinorrhea. ENT: Denies: ear ringing, mouth pain, sinus problem, throat swelling. Respiratory: Denies: hemoptysis, parox nocturnal dyspnea, ple urisy, pneumonia. Cardiovascular: Denies: PETERSEN (dyspnea on exertion), edema, orthop doug. GI: Denies: anorexia, dysphagia, hematochezia, hiata l hernia. : Denies: frequency, nocturia, testicular swelling . Heme: Denies: bleeding. Endocrine: Denies: cold intolerance, polyphagia, weight gai n. Neuro: Denies: change in LOC, gait problem, lightheaded , spinning sensation. Objective General VS/I O: Vital Signs: Date Time Temp Pulse Resp B/P B/P Pulse O2 O2 F low FiO2 Mean Ox Delivery Rate 08/05 0700 75 146/82 106 99 08/05 0600 76 134/63 91 98 08/05 0507 77 25 139/65 93 97 08/05 0400 73 20 127/62 87 98 08/05 0300 75 22 112/57 79 97 08/05 0200 74 20 111/67 84 96 08/05 0100 73 20 126/62 89 97 08/05 0000 72 20 122/63 86 97 08/04 2300 74 24 117/68 86 97 08/04 2201 75 119/58 82 96 08/04 2100 78 115/59 81 95 08/04 2002 96 Nasal 2 cannula 08/05 1999 37.0 08/05 1999 High flow 2 nasal cannula 08/04 2000 79 119/64 86 95 08/04 1900 79 121/63 87 94 08/04 1800 83 34 134/60 87 91 08/04 1700 80 29 140/68 98 93 08/04 1612 77 24 130/68 93 94 08/04 1500 139/46 69 08/04 1500 37.9 75 29 123/65 88 96 08/04 1401 138/45 67 08/04 1401 37.9 74 23 129/64 89 99 08/04 1301 141/50 71 08/04 1301 37.9 82 27 105/55 76 99 08/04 1206 95 High flow 3 nasal cannula 08/04 1200 128/50 73 08/04 1200 37.9 78 31 113/61 80 96 08/04 1100 133/48 69 08/04 1100 37.8 75 27 113/57 79 95 24 hour I O ending at 0700: 08/05 0700 08/04 1900 Intake Total 240 1440 Output Total 780 2060 Balance -540 -620 Intake, Oral 240 1320 Intake, Oral 120 Supplement Output, Chest 160 400 Tube Drainage Output, Urine 620 1660 Patient 90.2 kg Weight Weight Standing scale Measurement Method PATIENT WEIGHT: Weight (lb): 198 Weight (oz): 13.71 Weight (kg): 90.200 Medications: Active Meds + DC'd Last 24 Hrs Ipratropium [place] (ATROVENT) 500 MCG RTQ2H PRN PRN INH Cyanocobalamin (Vitamin B-12 500 mcg tab) 500 MC G DAILY PO Ferrous Sulfate (FERROUS SULFATE) 325 MG DAILY PO Potassium Chloride (POTASSIUM CHLORIDE 20MEQ TAB .ER) 20 MEQ ONCE ONE PO (DC) Bisacodyl (DULCOLAX) 10 MG ONCE PRN RECTAL Magnesium Hydroxide (MILK OF MAGNESIA) 30 ML ONC E PRN PO (DC) Mupirocin (BACTROBAN 2% 22 GM OINTMENT) 1 APPLIC BID NASAL Atorvastatin Calcium (LIPITOR) 40 MG 2100 PO Clopidogrel Bisulfate (Plavix) 75 MG DAILY PO Polyethylene Glycol (MIRALAX) 17 GM DAILY PO Ipratropium [place] (ATROVENT) 500 MCG RTQ6H PRN PRN INH Pantoprazole (PROTONIX) 40 MG DAILY@0600 PO Docusate Sodium (COLACE) 100 MG BID PO Gabapentin (NEURONTIN) 200 MG BID PO Metoprolol Tartrate (LOPRESSOR) 12.5 MG Q12HR PO Sennosides (Senna Lax 8.6 MG TABLET) 17.2 MG BED TIME PO Aspirin (ASPIRIN) 81 MG DAILY PO Ipratropium [place] (ATROVENT) 500 MCG RTQ4H INH Amiodarone HCl (CORDARONE) 200 MG TID PO Acetaminophen (TYLENOL) 650 MG Q4H PRN PRN PO Acetaminophen (TYLENOL) 650 MG Q4H PRN PRN RECTA L Calcium Chloride (CALCIUM CHLORIDE) 1 GM ASDIR P RN IV Dextrose/Water (DEXTROSE 10% IN WATER) 125 ML DIR PRN IV (CKD) Dextrose/Water (DEXTROSE 10% IN WATER) 250 ML DIR PRN IV (CKD) Epinephrine (ADRENALIN CHLORIDE) 4 MG ASDIR IV Dextrose/Water (DEXTROSE 5% WATER) 246 ML Glucagon (GLUCAGON) 1 MG ASDIR PRN IM Insulin Human Regular (HumuLIN R) 100 UNIT ASDIR IV (CKD) Sodium Chloride (SODIUM CHLORIDE 0.9%) 99 ML Magnesium Sulfate (MAGNESIUM SULFATE 4GM/SWFI 10 0ML) 100 ML ASDIR PRN IV Magnesium Sulfate (MAGNESIUM SULFATE 2GM/SWFI 50 ML) 50 ML ASDIR PRN IV Magnesium Sulfate/Dextrose (MAGNESIUM SULFATE 1G M/D5W 100ML) 100 ML ASDIR PRN IV Nitroglycerin/Dextrose (NITROGLYCERIN 50,000MCG/ D5W 250ML) 250 ML ASDIR IV Norepinephrine Bitartrate (NOREPINEPHRINE 8 MG/N S 250 ML) 250 ML TITRATE IV Ondansetron HCl (ZOFRAN) 4 MG Q6H PRN PRN IV Oxycodone HCl (ROXICODONE) 5 MG Q4H PRN PRN PO Oxycodone HCl (ROXICODONE) 10 MG Q4H PRN PRN PO Potassium Chloride (KCL 20MEQ/SWFI 100ML) 100 ML ASDIR PRN IV Sodium Bicarbonate (SODIUM BICARBONATE) 50 MEQ A SDIR PRN IV Sodium Chloride (SODIUM CHLORIDE 0.9%) 1,000 ML .Q20H IV Sodium Chloride (SODIUM CHLORIDE 0.9%) 250 ML Q2 4H IV Prednisone (predniSONE) 2 MG C BK PO Dietitian nutrition assessment The data set between the solid lines has been im ported from the dietitian's assessment. BMI Calculated: 28.5 Nutrition related diagnosis: Nutrition diagnosis details: Nutrition problem: Increased nutrient needs Nutrition etiology: Acute illness Nutrition signs and symptoms: ESTIMATED NEEDS S/ P SURGERY Nutrition prescription: 1. CONTINUE CARDIAC DIET . HONOR FOOD PREFERENCES APPROPRIATE WITH DIET ORDER. 2. PROVIDE GLUCERNA TID WITH MEALS. 3. MONITOR PO, WT, LABS, BM 4. HEALTHY HEART DIET EDUCATION STEPHAN OR TO DISCHARGE. Dietitian name: Connie Anders, DIET Assessment completed: 08/03/22 Physical Exam General appearance: alert, awake, oriented Head/Eyes: atraumatic, normocephalic, PERRLA Cardiovascular: normal capillary refill, normal heart sounds, regular rate rhythm Respiratory: aerating well, symmetric expansion, no distress Abdomen: non-tender, normal bowel sounds, soft Genitourinary: no bladder distention, no flank p ain, no urinary catheter Extremities: no calf tenderness, no clubbing, no cyanosis Musculoskeletal: no CVA tenderness, no muscle sp asm Neuro/INSURANCE WRITER: alert, oriented X 3, CNII-XII intact Skin: dry, intact Results Findings/Data: Laboratory Tests 08/05 08/04 0449 1506 Chemistry Sodium (134 - 147 mEq/L) 135 140 Potassium (3.4 - 5.0 mEq/L) 4.2 3.9 Chloride (100 - 108 mEq/L) 106 107 Carbon Dioxide (21 - 33 mEq/l) 25 25 Anion Gap (0 - 20) 9 12 BUN (7 - 18 mg/dL) 13 13 Creatinine (0.6 - 1.3 mg/dL) 0.8 0.7 Glomerular Filtr Rate (80 - 90) 96.4 H 100.4 H Glucose (70 - 110 mg/dL) 105 123 H Calcium (8.0 - 10.5 mg/dL) 8.8 8.0 Magnesium (1.80 - 2.40 mg/dL) 2.14 2.16 Total Bilirubin (0.0 - 1.0 mg/dL) 0.80 Direct Bilirubin (0.0 - 0.30 MG/DL) 0.40 H Indirect Bilirubin (MG/DL) 0.40 AST (15 - 37 IUnit/L) 43 H ALT (30 - 65 IUnit/L) 16 L Total Alk Phosphatase (20 - 125 IUnit/L) 47 Total Protein (6.4 - 8.2 g/dL) 5.8 L Albumin (3.4 - 5.0 g/dL) 3.60 Laboratory Tests 08/05 0637 Hematology WBC (4.5 - 11.0 x10 3/uL) 14.8 H RBC (4.00 - 5.60 x10 6/uL) 2.74 L Hgb (12.5 - 16.9 g/dL) 8.6 L Hct (37.5 - 50.7 %) 25.7 L MCV (81.0 - 99.0 fL) 93.8 MCH (27.0 - 33.0 pg) 31.4 MCHC (33.0 - 37.0 g/dL) 33.5 RDW (11.5 - 14.5 %) 14.4 Plt Count (150 - 400 x10 3/uL) 121 L MPV (7.0 - 9.0 fL) 12.0 H Neut % (Auto) (56.0 - 77.0 %) 67.4 Lymph % (Auto) (14.0 - 32.0 %) 15.7 Stephenson % (Auto) (4.8 - 9.0 %) 15.0 H Eos % (Auto) (0.3 - 3.7 %) 1.1 Baso % (Auto) (0.0 - 2.0 %) 0.2 Neut # (Auto) (2.0 - 7.6 x10 3/uL) 9.99 H Lymph # (Auto) (1.0 - 3.8 x10 3/uL) 2.33 Stephenson # (Auto) (0.1 - 0.8 x10 3/uL) 2.22 H Eos # (Auto) (0.0 - 0.2 x10 3/uL) 0.16 Baso # (Auto) (0.0 - 0.2 x10 3/uL) 0.03 Abs Immat Gran (auto) (0.00 - 0.03 x10 3/uL) 0. 09 H Add Manual Diff NO Immature Gran % (0.0 - 2.0 %) 0.6 Nucleated RBC % (0 - 0 %) 0.0 Nucleated RBCs # (Man) (0.0 - 0.1 x10 3/uL) 0.0 0 Radiology data: Recent Impressions: RADIOLOGY - XR CHEST 1 V 08/05 0656 Report Impression - Status: SIGNED Entered: 08/05/2022 0813 IMPRESSION: 1. Worsening lung opacities. 2. Resolution of small left pneumothorax. Stable left chest tube. 3. Removal of right catheter sheath. Impression By: GeronimoSWSerina - Allan Diana M.D. Results: labs reviewed, vital signs reviewed, vi radha signs stable, current med profile rev'd Treatment Prophylaxis Treatment Prophylaxis Oxygen: room air Drain(s)/tube(s): Drain(s)/tube(s): bertha (x2) Diagnosis, Assessment Plan Consultants: anesthesiology, cardiology, cardiov ascular surgery Code status: full code Plan discussed with: patient, admitting physicia n, consultants, nurse Free Text DxA P Notes Free text DxA P notes: Assessment and Plan: - Multivessel CAD. - CP due to CAD. - Hypomagnesemia. - HX of HTN/HLD and CAD. - S/P CABG x 4 (MITCHELL to LAD, saphenous vein to f irst marginal, saphenous vein to second marginal, saphenou s vein to PDA, Amputation of left atrial appendage, Endoscopic vein harvest (left greater saphenous vein) and Posterior pericardiotomy. Plan: CVICU. Will be dc home soon. Agrressive IS and PT/OT. Monitor Chest tube outpt. Pain meds. Antiemetics. Continue BB, Lipitor and ASA. Follow labs and repalce as needed. Monitor. Anthony Loaiza 08/16/221931: Attestations Physician Attestation Agree w/findings plan: Patient seen and examined, I agree with the findings and plan as discussed with and documented by Luther Martin NP Electronically Signed by Luther Martin [employer] on at 1017 Electronically Signed by Anthony Loaiza MD on 0 08/16/22 at 1942 RPT #:[id number] END OF REPORT 2022-08-05 07:20:00-00:00 [facility] ([facility]) Cardiology Progress Note REPORT#:[id number] REPORT STATUS: Signed DATE:08/05/22 TIME: 719 PATIENT: MARY DALY UNIT #: [id number] ROOM/BED: [place] [address] : 53 AGE: 66 SEX: M ATTEND: Marlo Loaiza MD ADM AUTHOR: Denton Chaparro MD * ALL edits or amendments must be made on the [employer] document * Subjective Chief complaint: Shortness of breath Objective General VS/I O: 24 hour I O ending at 0700: 08/05 0700 08/04 1900 Intake Total 240 1440 Output Total 780 2060 Balance -540 -620 Intake, Oral 240 1320 Intake, Oral 120 Supplement Output, Chest 160 400 Tube Drainage Output, Urine 620 1660 Patient 90.2 kg Weight Weight Standing scale Measurement Method Vital Signs: Date Time Temp Pulse Resp B/P B/P Pulse O2 O2 F low FiO2 Mean Ox Delivery Rate 08/05 0700 75 146/82 106 99 08/05 0600 76 134/63 91 98 08/05 0507 77 25 139/65 93 97 08/05 0400 73 20 127/62 87 98 08/05 0300 75 22 112/57 79 97 08/05 0200 74 20 111/67 84 96 08/05 0100 73 20 126/62 89 97 08/05 0000 72 20 122/63 86 97 08/04 2300 74 24 117/68 86 97 08/04 2201 75 119/58 82 96 08/04 2100 78 115/59 81 95 08/04 2002 96 Nasal 2 cannula 08/05 1999 98.6 08/05 1999 High flow 2 nasal cannula 08/05 1999 79 119/64 86 95 08/04 1900 79 121/63 87 94 08/04 1800 83 34 134/60 87 91 06/14 1700 80 29 140/68 98 93 06/14 1612 77 24 130/68 93 94 06/14 1500 139/46 69 06/14 1500 100.2 75 29 123/65 88 96 06/14 1401 138/45 67 06/14 1401 100.2 74 23 129/64 89 99 06/14 1301 141/50 71 06/14 1301 100.2 82 27 105/55 76 99 06/14 1206 95 High flow 3 nasal cannula 06/14 1200 128/50 73 06/14 1200 100.2 78 31 113/61 80 96 06/14 1100 133/48 69 06/14 1100 100.0 75 27 113/57 79 95 06/14 1001 134/52 75 06/14 1001 99.9 76 28 123/57 81 93 06/14 0900 117/53 72 06/14 0900 100.2 78 31 103/56 74 95 06/14 0815 100.0 76 28 94/84 90 96 06/14 0800 Nasal 5 cannula 06/14 0800 145/57 81 06/14 0800 99.9 79 28 130/71 95 95 06/14 0745 95 High flow 3 nasal cannula 06/14 0745 100.2 79 30 129/47 69 93 06/14 0730 100.2 77 26 150/50 74 95 PATIENT WEIGHT: Weight (lb): 198 Weight (oz): 13.71 Weight (kg): 90.200 Medications: Active Meds + DC'd Last 24 Hrs Ipratropium [place] (ATROVENT) 500 MCG RTQ2H PRN PRN INH Cyanocobalamin (Vitamin B-12 500 mcg tab) 500 MC G DAILY PO Ferrous Sulfate (FERROUS SULFATE) 325 MG DAILY P O Potassium Chloride (POTASSIUM CHLORIDE 20MEQ TAB .ER) 20 MEQ ONCE ONE PO (DC) Bisacodyl (DULCOLAX) 10 MG ONCE PRN RECTAL Magnesium Hydroxide (MILK OF MAGNESIA) 30 ML ONC E PRN PO (DC) Furosemide (LASIX 20MG INJ) 10 MG ONCE ONE IV (D C) Potassium Chloride (POTASSIUM CHLORIDE 20MEQ TAB .ER) 40 MEQ ONCE ONE PO (DC) Mupirocin (BACTROBAN 2% 22 GM OINTMENT) 1 APPLIC BID NASAL Atorvastatin Calcium (LIPITOR) 40 MG 2100 PO Clopidogrel Bisulfate (Plavix) 75 MG DAILY PO Polyethylene Glycol (MIRALAX) 17 GM DAILY PO Ipratropium [place] (ATROVENT) 500 MCG RTQ6H PRN PRN INH Pantoprazole (PROTONIX) 40 MG DAILY@0600 PO Docusate Sodium (COLACE) 100 MG BID PO Gabapentin (NEURONTIN) 200 MG BID PO Metoprolol Tartrate (LOPRESSOR) 12.5 MG Q12HR PO Sennosides (Senna Lax 8.6 MG TABLET) 17.2 MG BED TIME PO Aspirin (ASPIRIN) 81 MG DAILY PO Ipratropium [place] (ATROVENT) 500 MCG RTQ4H INH Amiodarone HCl (CORDARONE) 200 MG TID PO Acetaminophen (TYLENOL) 650 MG Q4H PRN PRN PO Acetaminophen (TYLENOL) 650 MG Q4H PRN PRN RECTA L Calcium Chloride (CALCIUM CHLORIDE) 1 GM ASDIR P RN IV Dextrose/Water (DEXTROSE 10% IN WATER) 125 ML DIR PRN IV (CKD) Dextrose/Water (DEXTROSE 10% IN WATER) 250 ML DIR PRN IV (CKD) Epinephrine (ADRENALIN CHLORIDE) 4 MG ASDIR IV Dextrose/Water (DEXTROSE 5% WATER) 246 ML Glucagon (GLUCAGON) 1 MG ASDIR PRN IM Insulin Human Regular (HumuLIN R) 100 UNIT ASDIR IV (CKD) Sodium Chloride (SODIUM CHLORIDE 0.9%) 99 ML Magnesium Sulfate (MAGNESIUM SULFATE 4GM/SWFI 10 0ML) 100 ML ASDIR PRN IV Magnesium Sulfate (MAGNESIUM SULFATE 2GM/SWFI 50 ML) 50 ML ASDIR PRN IV Magnesium Sulfate/Dextrose (MAGNESIUM SULFATE 1G M/D5W 100ML) 100 ML ASDIR PRN IV Nitroglycerin/Dextrose (NITROGLYCERIN 50,000MCG/ D5W 250ML) 250 ML ASDIR IV Norepinephrine Bitartrate (NOREPINEPHRINE 8 MG/N S 250 ML) 250 ML TITRATE IV Ondansetron HCl (ZOFRAN) 4 MG Q6H PRN PRN IV Oxycodone HCl (ROXICODONE) 5 MG Q4H PRN PRN PO Oxycodone HCl (ROXICODONE) 10 MG Q4H PRN PRN PO Potassium Chloride (KCL 20MEQ/SWFI 100ML) 100 ML ASDIR PRN IV Sodium Bicarbonate (SODIUM BICARBONATE) 50 MEQ A SDIR PRN IV Sodium Chloride (SODIUM CHLORIDE 0.9%) 1,000 ML .Q20H IV Sodium Chloride (SODIUM CHLORIDE 0.9%) 250 ML Q2 4H IV Prednisone (predniSONE) 2 MG C BK PO Status post: 07/27 LHC 08/02 CABG x 4. Physical Exam General appearance: alert, awake Head/Eyes: atraumatic, PERRL ENT: moist mucosal membranes Neck: full range of motion, no JVD Cardiovascular: CV assessment: regular rate and rhythm, no murm ur Respiratory: decreased breath sounds, no distres s Abdomen: soft, non-tender, normal bowel sounds, no distention, no guarding Genitourinary: no flank pain, no urinary cathete r Upper extremity: UE assessment: normal temperature, no edema Lower extremity: LE assessment: edema, normal temperature Neuro/INSURANCE WRITER: alert, oriented X 3, normal speech Skin: dry, intact Psychiatry: normal affect Results Findings/Data: Laboratory Tests 08/05 08/04 4423 6186 Chemistry Sodium (134 - 147 mEq/L) 135 140 Potassium (3.4 - 5.0 mEq/L) 4.2 3.9 Chloride (100 - 108 mEq/L) 106 107 Carbon Dioxide (21 - 33 mEq/l) 25 25 Anion Gap (0 - 20) 9 12 BUN (7 - 18 mg/dL) 13 13 Creatinine (0.6 - 1.3 mg/dL) 0.8 0.7 Glomerular Filtr Rate (80 - 90) 96.4 H 100.4 H Glucose (70 - 110 mg/dL) 105 123 H Calcium (8.0 - 10.5 mg/dL) 8.8 8.0 Magnesium (1.80 - 2.40 mg/dL) 2.14 2.16 Total Bilirubin (0.0 - 1.0 mg/dL) 0.80 Direct Bilirubin (0.0 - 0.30 MG/DL) 0.40 H Indirect Bilirubin (MG/DL) 0.40 AST (15 - 37 IUnit/L) 43 H ALT (30 - 65 IUnit/L) 16 L Total Alk Phosphatase (20 - 125 IUnit/L) 47 Total Protein (6.4 - 8.2 g/dL) 5.8 L Albumin (3.4 - 5.0 g/dL) 3.60 Laboratory Tests 08/05 08/04 2464 5586 Chemistry Magnesium (1.80 - 2.40 mg/dL) 2.14 2.16 Treatment Prophylaxis Treatment Prophylaxis Drain(s)/tube(s): Drain(s)/tube(s): bertha (x2) Diagnosis, Assessment Plan Consultants: anesthesiology, cardiology, cardiov ascular surgery Free Text DxA P Notes Free Text DxA P Notes: Mr. Daly is a pleasant 66 y/o male w/ PMHx: CAD s/p PCI, HTN, HLD, T2DM, GERD , temporal arteritis (on prednisone) presented t o [facility] for elective PCI. - CAD s/p CABG x 4 (MITCHELL to LAD, SVG to M1, M2, PDA) EF 55 to 60% with grade 1 diastolic dysfunction On atorvastatin, plavix, ASA, amiodarone and Me toprolol. - HTN. BP controlled. On Metoprololol. - HLD. On statins. - Chronic temporal arteritis. - GERD. Per IM. Encourage deep breath, cough, IS. Electronically Signed by Denton Chaparro MD on at 0720 RPT #:[id number] END OF REPORT 2022-08-05 05:05:00-00:00 [facility] REPORT#:[id number] REPORT STATUS: Signed DATE:08/05/22 TIME: 0505 PATIENT: MARY DALY UNIT #: [id number] ROOM/BED: [place] [id number] : 53 AGE: 66 SEX: M ATTEND: Marcella Loaiza od, MD ADM AUTHOR: Rosal[facility] * ALL edits or amendments must be made on the [employer]/computer document * General Post-op: day 3 Status post: 08/02/22 CABG x 4 (MITCHELL-LAD, SVG-OM1, SVG-OM2, SVG-PDA) ROBBIE SHELTON (LGSV) Posterior pericardiotomy Subjective Chief complaint: Chest Pains, CAD. Review of Systems Constitutional: Denies: fatigue, fever, generalized weakness. Skin: Denies: rash, swelling. Allergy/Immun: Denies: itching, rhinorrhea. ENT: Denies: earache, hearing loss. Respiratory: Denies: SOB, wheezing. Cardiovascular: Denies: edema, orthopnea. GI: Denies: constipation, diarrhea. : Denies: dysuria, hematuria. Musculoskeletal: Denies: joint pain, joint swelling. Heme: Denies: bleeding, bruising. Neuro: Denies: confusion. Psych: Denies: anxiety, confusion. All systems rev neg: except as marked Objective General VS/I O Last Documented: Result Date Time Pulse Ox 97 08/05 0300 B/P 112/57 08/05 0300 B/P Mean 79 08/05 0300 Pulse 75 08/05 0300 Resp 22 08/05 0300 O2 Delivery Nasal cannula 08/04 2001 O2 Flow Rate 2 08/04 2001 Temp 98.6 08/05 1999 24 hour I O ending at 0700: 08/05 0700 08/04 1900 Intake Total 1440 Output Total 540 2060 Balance -540 -620 Intake, Oral 1320 Intake, Oral 120 Supplement Output, Chest 40 400 Tube Drainage Output, Urine 500 1660 PATIENT WEIGHT: Weight (lb): 201 Weight (oz): 15.09 Weight (kg): 91.600 Physical Exam General appearance: alert, awake, oriented Wound/incision: Location: sternal Site condition: dressing clean dry, dressing in tact HEENT: mucosal membranes moist Neck: full range of motion, non-tender Cardiovascular: BP/pulses equal bilat., regular rate rhythm Respiratory: aerating well, clear to auscultatio n Abdomen: soft, non-tender Extremities: dry, moves all Musculoskeletal: full range of motion, painless range of motion Neuro/INSURANCE WRITER: alert, oriented X 3 Skin: dry, intact Psychiatry: normal affect, normal mood Treatment Prophylaxis Treatment Prophylaxis Drain(s)/tube(s): Drain(s)/tube(s): bertha (x2) Diagnosis, Assessment Plan Free Text A P: This is a 66-year gentleman with past medical history of coronary artery disease status post PCI in the past, with most recent in July 07, 2022, history of temporal arteritis on chronic prednisone since 2 017, diverticulitis, gout, hypertension, hyperlipidemia. The patient reports a histor y of exertional shortness of breath with occasional chest pain over the past several weeks. He underwent cardiac work-up with his cardiologi st and left heart cath was performed yesterday. This revealed multivessel CAD. CV surgery consulted for evaluation for coronary bypass graft. The patient reports a histor y of diabetes, diet controlled for the past several years. Patient denies any history of smoking. Patient admits to drinking 1 alcoholic beverage per day Patient has a strong family history of coronary artery disease with coronary bypass graft surgery in his brother Patient continues to take prednisone 3 mg daily for history of temporal arteritis in 2017 Assessment/plan 1. Coronary artery disease Previous PCI with most recent June 2022, hold Pl avix in preparation for surgery. 2. Hypertension 3. Hyperlipidemia 4. Temporal arteritis in 2017 Continues on prednisone 3 mg We will begin work-up for coronary bypass graft surgery. Patient was seen in exam by Dr. Mccurdy. Further recommendations to follow as work-up und erway Thank you for this kind consultation 07/29/22 Patient resting comfortable, denies complaint Patient received Plavix 75 m g on 07/28/2022 , will obtain repeat platelet response to Plavix test in the a.m. Respiratory: On room air Cardiac: Remains sinus rhythm Carotid Doppler shows no significant carotid art jorge stenosis Vein mapping complete Labs reviewed shows WBCs elevated 16 Urinalysis negative Neurology consult for history of temporal arteri tis, appreciate input We will repeat platelet response to Plav ix. Possibly plan for CABG in the a.m. Patient was seen and examined by 07/30/22 Patient resting comfortable. Denies complaints. Respiratory: On room air 100% Cardiac: Sinus rhythm Last recieved plavix on 07/28/22, Platelet respons e to PLavix this am= 157 Will plan for surgery next week. Neurology eval underway Patient was seen and examined by Dr. Mccurdy Work-up for coronary artery bypass graft surgery undergoing. Timing of surgery pending 07/31/22 Patient resting comfortable. Denies complaints. Respiratory: On room air 100% Cardiac: Sinus rhythm Patient recieved plavix on 07/28/22, Will repeat p latelet response on Tuesday. Will plan for surgery next week Neurology following. Continue steroids for Hx of temporal arteritis. Carotids show no significant dz, CT head complete No flow-limiting stenosis or occlusion along ma daisy intracranial arterial vessels. No acute intracranial process nor bony injury UA negative, HGa1c 6.2 Patient was seen and examined by Dr. Carmella carmen. Plan repeat platelet response to Plavix in the a.m. Plan for CABG on Tuesday08/01/22 Patient transferred to CVICU last night due to chest pains, started on heparin drip per protocol Currently denies any discomfort or chest pains. Alert and oriented x3 Respiratory: On room air Cardiac: Remains sinus rhythm Platelet response to Plavix 191 Patient has been seen and evaluated by neurology Work-up for coronary artery bypass graft is comp lete. Plan for surgery tomorrow. Patient was seen and examined by Dr. Carmella carmen. Plan of care discussed with team 08/02/22 CABG x 4 (MITCHELL-LAD, SVG-OM1, SVG-OM2, SVG-PDA) ALAA EVH (LGSV) Posterior pericardiotomy 08/03/22 POD 1 Patient hemodynamically stable post operatively CXR and labs reviewed Wean off oxygen as tolerated, currently at 2l na sumit cannula Encourage incentive spirometer use and deep frank thing Keep chest tubes and monitor outputs Advance diet as tolerated Glycemic control on insulin drip Pain management Monitor strict I Os DVT ppx with SCDs, GI ppx with PPI Monitor patient closely in CVICU Patient seen and examined wi Dr. Mccurdy, plan of care discussed with ICU team 08/04/22 POD 2 Patient recovering well, no complaints CXR and labs reviewed On 5 L nasal cannula, encourage I-S use and wean off oxygen Discontinue central line and guardado Discontinue MS chest tube, keep LP and monitor o utputs Gentle diuresis with lasix IV 10 x 1, monitor st rict I Os Tolerating diet PT/OT Ambulate Monitor patient in CVICU 08/05 POD 3 AAOx3 Respiratory: On 2 L nasal cannula, wean as timothy ated, Encourage IS, Deep Breathing, CXR reviewed CT drainage 160, will DC today Cardiac: Remains sinus rhythm, pacing wires on s tandby GI: + gas, Continue Bowel regimen UO: 620. Continue PT/OT- out of bed walking Labs reveiwed- replace electrolytes as needed Patient seen and examined by Dr. Mccurdy. Plan o f care discussed with multidisciplinary team Consultants: anesthesiology, cardiology, cardiov ascular surgery at 0834 RPT #:[id number] END OF REPORT 2022-08-04 17:28:00-00:00 [facility] Critical Care Progress Note REPORT#:[id number] REPORT STATUS: Signed DATE:08/04/22 TIME: 172 PATIENT: MARY DALY UNIT #: [id number] [place]OM[place] [facility] [place] : 53 AGE: 66 SEX: M ATTEND: Marcella Loaiza od, MD ADM AUTHOR: Shruthi Espinoza MD * ALL edits or amendments must be made on the [employer]/computer document * Subjective Chief complaint: Chest pain Exertional dyspnea HPI: Patient seen and discussed d urtwila MDR this morning in CVICU room #2207. Patient is postop day 1 after CABG x4. Complains of ches t pain, dyspnea this morning. Received ipratropium nebulizer without a ny relief. Has significant acid reflux symptoms with heartburn and dyspepsia. Patient w ill be started on IV Protonix 40 mg every 12 hours. His arterial line and [place] catheter will be discontinued. Chest tubes an d central venous catheter are going to be retained. Hemoglobin is 8.7 g/dL. Patient is tolerating o ral diet. He is ambulating with physical therapy. Latest blood gas shows a pH of 7.39, PCO2 of 39 mmHg, PO2 of 78 mmHg and bicarbonate of 24 mmo l with base excess at -0.6. Chest tube output is 200 mL and 190 mL respectively in the last 12-hour shift. Urine output is adequate at 1250 mL in the last 12-troy r shift. Urine output dropped to 20 mL/h and responded to albumin infusion. Vi radha signs are stable with a heart rate of 63, blood pressure 123/48 mmHg and pulse ox 98% on nasal cannula oxygen that is being titrated. On 08/02/2022, patient was brought to the CVICU r oom #2207 status post CABG x5 and ligation of left atrial appendage, extubated in the OR, on epinephrine at 4 mcg and norepinephrine at 2 mcg. Patient was a g rade 1 view easy intubation with 8.0 ET tube. Received rocuronium and etomid ate for RSI. EF 55%. PA pressures 24 mmHg and cardiac index 2.2-2.6. Pat ient received intravenous calcium and magnesium intraoperatively. Had 600 mL of urine output and 1 L of crystalloids were given. Patient receive d 720 mL of Cell Saver. No products or autologous transfusion was performed. Postop hem oglobin was 9.0 g/dL and ACT was 107. Patient is on insulin at 2 units/h and blood glucose is 180 mg/dL. Patient was on chronic prednisone therapy with p rednisone 3 mg p.o. daily for temporal arteritis since 2016. And received hydr ocortisone 100 mg IV x1 dose. He is able to move all 4 extremities and follows commands. Left pleural output is 50 mL and mediastinal output is 35 mL. Patien t has bilaterally symmetrical and equal pupils on both teresita es. He received parasternal block for pain control. Vital signs are stable with a heart rate of 80 sinus rhythm, blood pressure 128 /57 mmHg, pulse ox 96% on facemask and PA pressu res 28/12 mmHg. He is awake, interactive, following commands and moving all 4 extremities. Patient is full code. Mary Daly is a 66-year gentleman with past med ica history significant for coronary artery disease stat us post PCI in the past, with most recent in July 07, 2022, history of temporal arteritis on chronic p rednisone since 2016, diverticulitis, gout, hypertension, hyperlipidem ia. Strong family history of CAD. Has history of diabetes. He present ed with exertional shortness of breath with occasional chest pain over the past several weeks. Cardiac work-up and left heart cath revealed mul tivessel coronary disease. CT surgery was consulted for CABG evaluation and patient underwent surger y on 08/02/2022. Comments: Interval history- Patient is on 5 L NC Maintaining the blood pressure Objective General VS/I O Last Documented: Result Date Time Pulse Ox 93 08/04 1700 B/P 140/68 08/04 1700 B/P Mean 98 08/04 1700 Pulse 80 08/04 1700 Resp 29 08/04 1700 Temp 37.9 08/04 1500 O2 Delivery Nasal cannula 08/04 0800 O2 Flow Rate 5 08/04 0800 24 hour I O ending at 0700: 08/04 0700 08/03 1900 Intake Total 500 Output Total 1135 390 Balance -635 -390 Intake, Oral 500 Output, Chest 320 310 Tube Drainage Output, Urine 815 80 Patient 91.6 kg 90.718 kg Weight Weight Standing scale Measurement Method PATIENT WEIGHT: Weight (lb): 201 Weight (oz): 15.09 Weight (kg): 91.600 Medications: Active Meds + DC'd Last 24 Hrs Ipratropium [place] (ATROVENT) 500 MCG RTQ2H PRN PRN INH Cyanocobalamin (Vitamin B-12 500 mcg tab) 500 MC G DAILY PO Ferrous Sulfate (FERROUS SULFATE) 325 MG DAILY PO Potassium Chloride (POTASSIUM CHLORIDE 20MEQ TAB .ER) 20 MEQ ONCE ONE PO (UNV) Bisacodyl (DULCOLAX) 10 MG ONCE PRN RECTAL Magnesium Hydroxide (MILK OF MAGNESIA) 30 ML ONC E PRN PO Furosemide (LASIX 20MG INJ) 10 MG ONCE ONE IV (D C) Potassium Chloride (POTASSIUM CHLORIDE 20MEQ TAB .ER) 40 MEQ ONCE ONE PO (DC) Mupirocin (BACTROBAN 2% 22 GM OINTMENT) 1 APPLIC BID NASAL Atorvastatin Calcium (LIPITOR) 40 MG 2100 PO Clopidogrel Bisulfate (Plavix) 75 MG DAILY PO Polyethylene Glycol (MIRALAX) 17 GM DAILY PO Ipratropium [place] (ATROVENT) 500 MCG RTQ6H PRN PRN INH Pantoprazole (PROTONIX) 40 MG DAILY@0600 PO Docusate Sodium (COLACE) 100 MG BID PO Gabapentin (NEURONTIN) 200 MG BID PO Metoprolol Tartrate (LOPRESSOR) 12.5 MG Q12HR PO Sennosides (Senna Lax 8.6 MG TABLET) 17.2 MG BED TIME PO Aspirin (ASPIRIN) 81 MG DAILY PO Ipratropium [place] (ATROVENT) 500 MCG RTQ4H INH Amiodarone HCl (CORDARONE) 200 MG TID PO Acetaminophen (TYLENOL) 650 MG Q4H PRN PRN PO Acetaminophen (TYLENOL) 650 MG Q4H PRN PRN RECTA L Calcium Chloride (CALCIUM CHLORIDE) 1 GM ASDIR P RN IV Dextrose/Water (DEXTROSE 10% IN WATER) 125 ML DIR PRN IV (CKD) Dextrose/Water (DEXTROSE 10% IN WATER) 250 ML DIR PRN IV (CKD) Epinephrine (ADRENALIN CHLORIDE) 4 MG ASDIR IV Dextrose/Water (DEXTROSE 5% WATER) 246 ML Glucagon (GLUCAGON) 1 MG ASDIR PRN IM Insulin Human Regular (HumuLIN R) 100 UNIT ASDIR IV (CKD) Sodium Chloride (SODIUM CHLORIDE 0.9%) 99 ML Magnesium Sulfate (MAGNESIUM SULFATE 4GM/SWFI 10 0ML) 100 ML ASDIR PRN IV Magnesium Sulfate (MAGNESIUM SULFATE 2GM/SWFI 50 ML) 50 ML ASDIR PRN IV Magnesium Sulfate/Dextrose (MAGNESIUM SULFATE 1G M/D5W 100ML) 100 ML ASDIR PRN IV Nitroglycerin/Dextrose (NITROGLYCERIN 50,000MCG/ D5W 250ML) 250 ML ASDIR IV Norepinephrine Bitartrate (NOREPINEPHRINE 8 MG/N S 250 ML) 250 ML TITRATE IV Ondansetron HCl (ZOFRAN) 4 MG Q6H PRN PRN IV Oxycodone HCl (ROXICODONE) 5 MG Q4H PRN PRN PO Oxycodone HCl (ROXICODONE) 10 MG Q4H PRN PRN PO Potassium Chloride (KCL 20MEQ/SWFI 100ML) 100 M L ASDIR PRN IV Sodium Bicarbonate (SODIUM BICARBONATE) 50 MEQ A SDIR PRN IV Sodium Chloride (SODIUM CHLORIDE 0.9%) 1,000 ML .Q20H IV Sodium Chloride (SODIUM CHLORIDE 0.9%) 250 ML Q2 4H IV Prednisone (predniSONE) 2 MG C BK PO Post-op: day 1 Status post: CABG times 4 Physical Exam Head/eyes: atraumatic, clear cornea, normocephal ic, PERRL ENT: moist mucosal membranes, normal nose, jessica l sinus Neck: no JVD, no masses or swelling Cardiovascular: normal capillary refill, normal heart sounds, regular rate and rhythm Respiratory: aerating well, clear to auscultatio n, symmetric expansion, no distress Abdomen: soft, non-tender, no distention, no gua rding, no rebound Genitourinary: urinary catheter, no bladder dist ention Extremities: moves all, no clubbing, no cyanosis , no edema Neuro/INSURANCE WRITER: no motor deficits Wound/incision: Location: sternal wound Psychiatry: normal affect, normal mood, no hallu cinations Results Findings/data: Laboratory Tests 08/04 0254 Blood Gas Puncture Site Art Line O2 Saturation (90 - 100 %) 91.1 ABG pH (7.35 - 7.45) 7.456 H ABG pCO2 (35.0 - 45 mmHg) 34.5 L ABG pO2 (80 - 100.0 mmHg) 60.9 L ABG HCO3 (22.0 - 26.0 MMOL/L) 24.1 ABG Total CO2 25.1 ABG Base Excess (-4.0 - 4.0 MMOL/L) 0.5 ABG Hematocrit (37.5 - 50.7 %) 21 L ABG Hemoglobin (12.5 - 16.9 G/DL) 7.2 L Nazia Test N/A Sodium (134 - 147 mmol/L) 138 Potassium (3.4 - 5.0 mmol/L) 3.7 Chloride (100 - 108 mmol/L) 105 Ionized Calcium (1.12 - 1.32 MMOL/L) 1.20 Lactic Acid (0.9 - 1.7 mmol/l) 0.5 L Temperature (F) 100.6 O2 Delivery Device Cannula Laboratory Tests 08/04 08/04 08/04 1506 0254 0250 Chemistry Sodium (134 - 147 mEq/L) 140 137 Potassium (3.4 - 5.0 mEq/L) 3.9 3.8 Chloride (100 - 108 mEq/L) 107 110 H Carbon Dioxide (21 - 33 mEq/l) 25 25 Anion Gap (0 - 20) 12 6 BUN (7 - 18 mg/dL) 13 12 Creatinine (0.6 - 1.3 mg/dL) 0.7 0.8 POC Creatinine (0.8 - 1.3 mg/dL) 0.8 Glomerular Filtr Rate (80 - 90) 100.4 H 96.4 H Glucose (70 - 110 mg/dL) 123 H 109 POC Glucose (mg/dL) (70 - 110 MG/DL) 92 Calcium (8.0 - 10.5 mg/dL) 8.0 8.2 Magnesium (1.80 - 2.40 mg/dL) 2.16 2.13 Total Bilirubin (0.0 - 1.0 mg/dL) 0.60 Direct Bilirubin (0.0 - 0.30 MG/DL) 0.30 Indirect Bilirubin (MG/DL) 0.30 AST (15 - 37 IUnit/L) 34 ALT (30 - 65 IUnit/L) 14 L Total Alk Phosphatase (20 - 125 IUnit/L) 32 Total Protein (6.4 - 8.2 g/dL) 5.1 L Albumin (3.4 - 5.0 g/dL) 3.70 Laboratory Tests 08/04 0250 Hematology WBC (4.5 - 11.0 x10 3/uL) 12.1 H RBC (4.00 - 5.60 x10 6/uL) 2.45 L Hgb (12.5 - 16.9 g/dL) 7.7 L Hct (37.5 - 50.7 %) 22.4 L MCV (81.0 - 99.0 fL) 91.4 MCH (27.0 - 33.0 pg) 31.4 MCHC (33.0 - 37.0 g/dL) 34.4 RDW (11.5 - 14.5 %) 14.3 Plt Count (150 - 400 x10 3/uL) 86 L MPV (7.0 - 9.0 fL) 11.6 H Neut % (Auto) (56.0 - 77.0 %) 63.4 Lymph % (Auto) (14.0 - 32.0 %) 14.8 Stephenson % (Auto) (4.8 - 9.0 %) 21.2 H Eos % (Auto) (0.3 - 3.7 %) 0.1 L Baso % (Auto) (0.0 - 2.0 %) 0.1 Neut # (Auto) (2.0 - 7.6 x10 3/uL) 7.68 H Lymph # (Auto) (1.0 - 3.8 x10 3/uL) 1.79 Stephenson # (Auto) (0.1 - 0.8 x10 3/uL) 2.56 H Eos # (Auto) (0.0 - 0.2 x10 3/uL) 0.01 Baso # (Auto) (0.0 - 0.2 x10 3/uL) 0.01 Abs Immat Gran (auto) (0.00 - 0.03 x10 3/uL) 0. 05 H Add Manual Diff NO Immature Gran % (0.0 - 2.0 %) 0.4 Nucleated RBC % (0 - 0 %) 0.0 Nucleated RBCs # (Man) (0.0 - 0.1 x10 3/uL) 0.0 0 Platelet Estimate (ADEQUATE THOUSAND) 100-125 Immature Plt Fraction (0.9 - 11.2 %) 7.3 Laboratory Tests 08/04/22 1506: [Embedded Image Not Available] 08/04/22 0250: [Embedded Image Not Available] Radiology data Recent Impressions: RADIOLOGY - XR CHEST 1 V 08/04 0540 Report Impression - Status: SIGNED Entered: 08/04/2022 1003 IMPRESSION: 1. Small left-sided 10% pneumothorax with a ches t tube in place. 2. Findings were called to MARCELINO Carr, CVICU jason pham at 10:00 AM Impression By: Vadim Stanley M.D. Treatment Prophylaxis Treatment Prophylaxis Drain(s)/tube(s): Drain(s)/tube(s): bertha (x2) Diagnosis, Assessment Plan Free text A P: Problem List: Chest pain/Angina Exertional dyspnea Coronary artery disease Status post CABG x5 and ILAA Elective ventilatory dependence for acute pulmon oli insufficiency following major cardiothoracic surgery Acute blood loss anemia cardiogenic shock Hyperglycemia Leukocytosis Assessment and Plan: Patient was brought to the C VICU room #2207 status post CABG x5 and ligation of left atrial appendage, extubated in the OR, on e pinephrine at 4 mcg and norepinephrine at 2 mcg. Pat ient was a grade 1 view easy intubation with 8.0 ET tube. Received rocuronium and etomidate for RSI. EF 55%. PA pressures 24 mmHg and cardiac index 2.2-2.6. Patient rece ived intravenous calcium and magnesium intraoperatively. Had 600 mL of urine output and 1 L of crystalloids were given. Patient received 720 mL of Cell Saver. No products or autologous transfusion was performed. Postop hemoglobin was 9.0 g/dL and ACT was 107. Patient is on insulin at 2 units/h and b lood glucose is 180 mg/dL. Patient was on chronic prednisone therapy with prednisone 3 mg p.o. daily for temporal arteritis since 2017. And received hydrocortison e 100 mg IV x1 dose. He is able to move all 4 extremities and follo ws commands. Left pleural output is 50 mL and mediastinal output is 35 mL. Patient has bilaterally symmetrical and equal pupils on both sides. He received paraster nal block for pain control. Vital signs are stable with a heart rate of 80 sinus rhythm, blood pressure 128/ 57 mmHg, pulse ox 96% on facemask and PA pressur es 28/12 mmHg. He is awake, interactive, following commands and moving all 4 extremities. Patient is full code. Mary Daly is a 66-year gentleman with past med ical history significant for coronary artery disease stat us post PCI in the past, with most recent in July 07, 2022, history of temporal arteritis on chronic p rednisone since 2017, diverticulitis, gout, hypertension, hyperlipidem ia. Strong family history of CAD. Has history of diabetes. He present ed with exertional shortness of breath with occasional chest pain over the past several weeks. Cardiac work-up and left heart cath revealed mul tivessel coronary disease. CT surgery was consulted for CABG evaluation and patient underwent surger y on 08/02/2022. Postop day 0 after CABG x5 and ILAA No acute events for reported in the OR Patient was easy intubation and induction using rocuronium and etomidate EF 55% PA pressures 24 mm of Hg Cardiac index 2.2 to 2.6 Patient is currently on epin ephrine at 4 mcg and norepinephrine at 2 mcg that is being weaned Blood pressure is stable Patient received 1 L of crystalloid and 720 mL o f Cell Saver No autologous transfusion or products were used Had 600 mL of urine output Chest tube output is minimal at 50 mL in the lef t pleural and 35 mL in the mediastinal chest tubes Patient is able to move all 4 extremities and fo llow command Pain control with parasternal block Patient will be on oral narcotic regimen for javier n control Vital signs are stable with heart rate 80, blood pressure 128/57 mmHg and pulse ox 96% on facemask Follow chest tube output Chest x-ray was personally viewed by me and line s and tubes are in position Patient has been on chronic steroid therapy [facility] e 2016, received stress dose steroids with hydrocortisone 100 mg IV Avoid further steroid dosing unless evidence of adrenal crisis SCDs for DVT prophylaxis Sterling Hidalgo MD FACP [facility] 08/02/2022 3.57 PM 08/03/2022 Patient seen and discussed d uring MDR this morning in CVICU room #[id number]. Patient is postop day 1 after CABG x4. Complains of ches t pain, dyspnea this morning. Received ipratropium nebulizer without a ny relief. Has significant acid reflux symptoms with heartburn and dyspepsia. Patient w ill be started on IV Protonix 40 mg every 12 hours. His arterial line and [place] catheter will be discontinued. Chest tubes an d central venous catheter are going to be retained. Hemoglobin is 8.7 g/dL. Patient is tolerating o ral diet. He is ambulating with physical therapy. Latest blood gas shows a pH of 7.39, PCO2 of 39 mmHg, PO2 of 78 mmHg and bicarbonate of 24 mmo l with base excess at -0.6. Chest tube output is 200 mL and 190 mL respectively in the last 12-hour shift. Urine output is adequate at 1250 mL in the last 12-troy r shift. Urine output dropped to 20 mL/h and responded to albumin infusion. Vi radha signs are stable with a heart rate of 63, blood pressure 123/48 mmHg and pulse ox 98% on nasal cannula oxygen that is being titrated. On 08/02/2022, patient was brought to the CVICU r oom #2207 status post CABG x5 and ligation of left atrial appendage, extubated in the OR, on epinephrine at 4 mcg and norepinephrine at 2 mcg. Patient was a g rade 1 view easy intubation with 8.0 ET tube. Received rocuronium and etomid ate for RSI. EF 55%. PA pressures 24 mmHg and cardiac index 2.2-2.6. Pat ient received intravenous calcium and magnesium intraoperatively. Had 600 mL of urine output and 1 L of crystalloids were given. Patient receive d 720 mL of Cell Saver. No products or autologous transfusion was performed. Postop hem oglobin was 9.0 g/dL and ACT was 107. Patient is on insulin at 2 units/h and blood glucose is 180 mg/dL. Patient was on chronic prednisone therapy with p rednisone 3 mg p.o. daily for temporal arteritis since 2017. And received hydr ocortisone 100 mg IV x1 dose. He is able to move all 4 extremities and follows commands. Left pleural output is 50 mL and mediastinal output is 35 mL. Patien t has bilaterally symmetrical and equal pupils on both teresita es. He received parasternal block for pain control. Vital signs are stable with a heart rate of 80 sinus rhythm, blood pressure 128 /57 mmHg, pulse ox 96% on facemask and PA pressu res 28/12 mmHg. He is awake, interactive, following commands and moving all 4 extremities. Patient is full code. Mary Daly is a 66-year gentleman with past med ical history significant for coronary artery disease stat us post PCI in the past, with most recent in July 07, 2022, history of temporal arteritis on chronic p rednisone since 2017, diverticulitis, gout, hypertension, hyperlipidem ia. Strong family history of CAD. Has history of diabetes. He present ed with exertional shortness of breath with occasional chest pain over the past several weeks. Cardiac work-up and left heart cath revealed mul tivessel coronary disease. CT surgery was consulted for CABG evaluation and patient underwent surger y on 08/02/2022. He is postop day 1 after CABG x4 Complains of chest pain and heartburn this more Has significant history of GERD and dyspepsia Patient will be started on Protonix 40 mg IV mazin ry 12 hours Tolerating oral diet Ambulating with physical therapy Generous output from the chest tubes at 200 mL a nd 190 mL respectively Monitor chest tube output Both chest tubes to be retained DC [place] catheter and arterial line Central venous catheter to be retained Patient is off vasopressors Hemoglobin is 8.7 g/dL down from 9.4 g/dL Reactive leukocytosis improving Urine output is 1250 mL in the last 12-hour shif t Urine output declined to 20 mL/h record and resp onded to albumin infusion Patient is awake, interactive, with no focal margaret rological deficit SCDs for DVT prophylaxis Sterling Hidalgo MD [facility] 08/03/2022 11.13 AM 08/04/2022 Neurologically at baseline. Pain is well control led. On 5 L nasal cannula. Wean down as tolerated. AB G and chest x-ray reviewed. We will diurese with 20 IV Lasix. In sinus rhythm maintain the blood pressure. Con tinue beta-rob and amiodarone. Discontinue mediastinal chest tube. Tolerating diet no bowel movement yet. Continue bowel regimen. Ambulate. PT OT White count improving. No fevers. Continue to mo nitor. SCDs for DVT prophylaxis. Total critical care time 36 minutes excluding pr ocedures Consultants: anesthesiology, cardiology, cardiov ascular surgery Electronically Signed by Shruthi Espinoza MD on 0 08/25/22 at 1528 RPT #:[id number] END OF REPORT 2022-08-04 11:30:00-00:00 [facility] [place] ([facility]) Cardiothoracic Surgery Prog REPORT#:[id number] REPORT STATUS: Signed DATE:08/04/22 TIME: 1130 PATIENT: MARY DALY UNIT #: [id number] ROOM/BED: 3346-1 : 53 AGE: 66 SEX: M ATTEND: Marcella Loaiza od, MD ADM AUTHOR: Ludin Mccurdy MD * ALL edits or amendments must be made on the [employer]/computer document * General Post-op: day 2 Status post: 08/02/22 CABG x 4 (MITCHELL-LAD, SVG-OM1, SVG-OM2, SVG-PDA) ALAA EVH (LGSV) Posterior pericardiotomy Subjective Chief complaint: Chest Pains, CAD. Review of Systems Constitutional: Denies: fatigue, fever, generalized weakness. Skin: Denies: rash, swelling. Allergy/Immun: Denies: itching, rhinorrhea. ENT: Denies: earache, hearing loss. Respiratory: Denies: SOB, wheezing. Cardiovascular: Denies: edema, orthopnea. GI: Denies: constipation, diarrhea. : Denies: dysuria, hematuria. Musculoskeletal: Denies: joint pain, joint swelling. Heme: Denies: bleeding, bruising. Neuro: Denies: confusion. Psych: Denies: anxiety, confusion. All systems rev neg: except as marked Objective General VS/I O Last Documented: Result Date Time B/P 133/48 08/04 1100 B/P Mean 69 08/04 1100 Pulse Ox 95 08/04 1100 Temp 37.8 08/04 1100 Pulse 75 08/04 1100 Resp 27 08/04 1100 O2 Delivery Nasal cannula 08/04 0800 O2 Flow Rate 5 08/04 0800 24 hour I O ending at 0700: 08/04 0700 08/03 1900 Intake Total 500 Output Total 1135 390 Balance -635 -390 Intake, Oral 500 Output, Chest 320 310 Tube Drainage Output, Urine 815 80 Patient 91.6 kg 90.718 kg Weight Weight Standing scale Measurement Method PATIENT WEIGHT: Weight (lb): 201 Weight (oz): 15.09 Weight (kg): 91.600 Dietitian Nutrition assessment The data set between the solid lines has been im ported from the dietitian's assessment. BMI Calculated: 29.0 Nutrition related diagnosis: Nutrition diagnosis details: Nutrition problem: Increased nutrient needs Nutrition etiology: Acute illness Nutrition signs and symptoms: ESTIMATED NEEDS S/ P SURGERY Nutrition prescription: 1. CONTINUE CARDIAC DIET . HONOR FOOD PREFERENCES APPROPRIATE WITH DIET ORDER. 2. PROVIDE GLUCERNA TID WITH MEALS. 3. MONITOR PO, WT, LABS, BM 4. HEALTHY HEART DIET EDUCATION STEPHAN OR TO DISCHARGE. Dietitian name: Connie Chago, DIET Assessment completed: 08/03/22 Physical Exam General appearance: alert, awake, oriented Wound/incision: Location: sternal Site condition: dressing clean dry, dressing in tact HEENT: mucosal membranes moist Neck: full range of motion, non-tender Cardiovascular: BP/pulses equal bilat., regular rate rhythm Respiratory: aerating well, clear to auscultatio n Abdomen: soft, non-tender Extremities: dry, moves all Musculoskeletal: full range of motion, painless range of motion Neuro/INSURANCE WRITER: alert, oriented X 3 Skin: dry, intact Psychiatry: normal affect, normal mood Current Medications Medications: Active Meds + DC'd Last 24 Hrs Ipratropium [place] (ATROVENT) 500 MCG RTQ2H PRN PRN INH Cyanocobalamin (Vitamin B-12 500 mcg tab) 500 MC G DAILY PO Ferrous Sulfate (FERROUS SULFATE) 325 MG DAILY P O Bisacodyl (DULCOLAX) 10 MG ONCE PRN RECTAL Magnesium Hydroxide (MILK OF MAGNESIA) 30 ML ONC E PRN PO Furosemide (LASIX 20MG INJ) 10 MG ONCE ONE IV (D C) Potassium Chloride (POTASSIUM CHLORIDE 20MEQ TAB .ER) 40 MEQ ONCE ONE PO (DC) Mupirocin (BACTROBAN 2% 22 GM OINTMENT) 1 APPLIC BID NASAL Atorvastatin Calcium (LIPITOR) 40 MG 2100 PO Clopidogrel Bisulfate (Plavix) 75 MG DAILY PO Polyethylene Glycol (MIRALAX) 17 GM DAILY PO Ipratropium [place] (ATROVENT) 500 MCG RTQ6H PRN PRN INH Pantoprazole (PROTONIX) 40 MG DAILY@0600 PO Docusate Sodium (COLACE) 100 MG BID PO Gabapentin (NEURONTIN) 200 MG BID PO Metoprolol Tartrate (LOPRESSOR) 12.5 MG Q12HR PO Sennosides (Senna Lax 8.6 MG TABLET) 17.2 MG BED TIME PO Aspirin (ASPIRIN) 81 MG DAILY PO Ipratropium [place] (ATROVENT) 500 MCG RTQ4H INH Amiodarone HCl (CORDARONE) 200 MG TID PO Acetaminophen (TYLENOL) 650 MG Q4H PRN PRN PO Acetaminophen (TYLENOL) 650 MG Q4H PRN PRN RECTA L Albumin Human (ALBUMINAR 25%) 25 GM ASDIR PRN IV (DC) Calcium Chloride (CALCIUM CHLORIDE) 1 GM ASDIR P RN IV Dextrose/Water (DEXTROSE 10% IN WATER) 125 ML DIR PRN IV (CKD) Dextrose/Water (DEXTROSE 10% IN WATER) 250 ML DIR PRN IV (CKD) Epinephrine (ADRENALIN CHLORIDE) 4 MG ASDIR IV Dextrose/Water (DEXTROSE 5% WATER) 246 ML Glucagon (GLUCAGON) 1 MG ASDIR PRN IM Insulin Human Regular (HumuLIN R) 100 UNIT ASDIR IV (CKD) Sodium Chloride (SODIUM CHLORIDE 0.9%) 99 ML Magnesium Sulfate (MAGNESIUM SULFATE 4GM/SWFI 10 0ML) 100 ML ASDIR PRN IV Magnesium Sulfate (MAGNESIUM SULFATE 2GM/SWFI 50 ML) 50 ML ASDIR PRN IV Magnesium Sulfate/Dextrose (MAGNESIUM SULFATE 1G M/D5W 100ML) 100 ML ASDIR PRN IV Nitroglycerin/Dextrose (NITROGLYCERIN 50,000MCG/ D5W 250ML) 250 ML ASDIR IV Norepinephrine Bitartrate (NOREPINEPHRINE 8 MG/N S 250 ML) 250 ML TITRATE IV Ondansetron HCl (ZOFRAN) 4 MG Q6H PRN PRN IV Oxycodone HCl (ROXICODONE) 5 MG Q4H PRN PRN PO Oxycodone HCl (ROXICODONE) 10 MG Q4H PRN PRN PO Potassium Chloride (KCL 20MEQ/SWFI 100ML) 100 ML ASDIR PRN IV Sodium Bicarbonate (SODIUM BICARBONATE) 50 MEQ A SDIR PRN IV Sodium Chloride (SODIUM CHLORIDE 0.9%) 1,000 ML .Q20H IV Sodium Chloride (SODIUM CHLORIDE 0.9%) 250 ML Q2 4H IV Prednisone (predniSONE) 2 MG C BK PO Results Findings/Data: Laboratory Tests 08/04 0254 Blood Gas Puncture Site Art Line O2 Saturation (90 - 100 %) 91.1 ABG pH (7.35 - 7.45) 7.456 H ABG pCO2 (35.0 - 45 mmHg) 34.5 L ABG pO2 (80 - 100.0 mmHg) 60.9 L ABG HCO3 (22.0 - 26.0 MMOL/L) 24.1 ABG Total CO2 25.1 ABG Base Excess (-4.0 - 4.0 MMOL/L) 0.5 ABG Hematocrit (37.5 - 50.7 %) 21 L ABG Hemoglobin (12.5 - 16.9 G/DL) 7.2 L Nazia Test N/A Sodium (134 - 147 mmol/L) 138 Potassium (3.4 - 5.0 mmol/L) 3.7 Chloride (100 - 108 mmol/L) 105 Ionized Calcium (1.12 - 1.32 MMOL/L) 1.20 Lactic Acid (0.9 - 1.7 mmol/l) 0.5 L Temperature (F) 100.6 O2 Delivery Device Cannula Laboratory Tests 08/04 08/04 0254 0250 Chemistry Sodium (134 - 147 mEq/L) 137 Potassium (3.4 - 5.0 mEq/L) 3.8 Chloride (100 - 108 mEq/L) 110 H Carbon Dioxide (21 - 33 mEq/l) 25 Anion Gap (0 - 20) 6 BUN (7 - 18 mg/dL) 12 Creatinine (0.6 - 1.3 mg/dL) 0.8 POC Creatinine (0.8 - 1.3 mg/dL) 0.8 Glomerular Filtr Rate (80 - 90) 96.4 H Glucose (70 - 110 mg/dL) 109 POC Glucose (mg/dL) (70 - 110 MG/DL) 92 Calcium (8.0 - 10.5 mg/dL) 8.2 Magnesium (1.80 - 2.40 mg/dL) 2.13 Total Bilirubin (0.0 - 1.0 mg/dL) 0.60 Direct Bilirubin (0.0 - 0.30 MG/DL) 0.30 Indirect Bilirubin (MG/DL) 0.30 AST (15 - 37 IUnit/L) 34 ALT (30 - 65 IUnit/L) 14 L Total Alk Phosphatase (20 - 125 IUnit/L) 32 Total Protein (6.4 - 8.2 g/dL) 5.1 L Albumin (3.4 - 5.0 g/dL) 3.70 Laboratory Tests 08/04 0250 Hematology WBC (4.5 - 11.0 x10 3/uL) 12.1 H RBC (4.00 - 5.60 x10 6/uL) 2.45 L Hgb (12.5 - 16.9 g/dL) 7.7 L Hct (37.5 - 50.7 %) 22.4 L MCV (81.0 - 99.0 fL) 91.4 MCH (27.0 - 33.0 pg) 31.4 MCHC (33.0 - 37.0 g/dL) 34.4 RDW (11.5 - 14.5 %) 14.3 Plt Count (150 - 400 x10 3/uL) 86 L MPV (7.0 - 9.0 fL) 11.6 H Neut % (Auto) (56.0 - 77.0 %) 63.4 Lymph % (Auto) (14.0 - 32.0 %) 14.8 Stephenson % (Auto) (4.8 - 9.0 %) 21.2 H Eos % (Auto) (0.3 - 3.7 %) 0.1 L Baso % (Auto) (0.0 - 2.0 %) 0.1 Neut # (Auto) (2.0 - 7.6 x10 3/uL) 7.68 H Lymph # (Auto) (1.0 - 3.8 x10 3/uL) 1.79 Stephenson # (Auto) (0.1 - 0.8 x10 3/uL) 2.56 H Eos # (Auto) (0.0 - 0.2 x10 3/uL) 0.01 Baso # (Auto) (0.0 - 0.2 x10 3/uL) 0.01 Abs Immat Gran (auto) (0.00 - 0.03 x10 3/uL) 0 .05 H Add Manual Diff NO Immature Gran % (0.0 - 2.0 %) 0.4 Nucleated RBC % (0 - 0 %) 0.0 Nucleated RBCs # (Man) (0.0 - 0.1 x10 3/uL) 0.0 0 Platelet Estimate (ADEQUATE THOUSAND) 100-125 Immature Plt Fraction (0.9 - 11.2 %) 7.3 Radiology data: Recent Impressions: RADIOLOGY - XR CHEST 1 V 08/04 0540 Report Impression - Status: SIGNED Entered: 08/04/2022 1003 IMPRESSION: 1. Small left-sided 10% pneumothorax with a ches t tube in place. 2. Findings were called to MARCELINO Carr, [facility] jason pham at 10:00 AM Impression By: Vadim - Radha Stanley M.D. Results: labs reviewed, vital signs stable, ryth m personally rev'd, x-ray personally reviewed, current med profile rev'd Diagnosis, Assessment Plan Free Text A P: This is a 66-year gentleman with past medical history of coronary artery disease status post PCI in the past, with most recent in July 07, 2022, history of temporal arteritis on chronic prednisone since 2 017, diverticulitis, gout, hypertension, hyperlipidemia. The patient reports a histor y of exertional shortness of breath with occasional chest pain over the past several weeks. He underwent cardiac work-up with his cardiologi and left heart cath was performed yesterday. This revealed multivessel CAD. CV surgery consulted for evaluation for coronary bypass graft. The patient reports a histor y of diabetes, diet controlled for the past several years. Patient denies any history of smoking. Patient admits to drinking 1 alcoholic beverage per day Patient has a strong family history of coronary artery disease with coronary bypass graft surgery in his brother Patient continues to take prednisone 3 mg daily for history of temporal arteritis in 2016 Assessment/plan 1. Coronary artery disease Previous PCI with most recent June 2022, hold Pl avix in preparation for surgery. 2. Hypertension 3. Hyperlipidemia 4. Temporal arteritis in 2017 Continues on prednisone 3 mg We will begin work-up for coronary bypass graft surgery. Patient was seen in exam by Dr. Mccurdy. Further recommendations to follow as work-up und erway Thank you for this kind consultation 07/29/22 Patient resting comfortable, denies complaint Patient received Plavix 75 m g on 07/28/2022 , will obtain repeat platelet response to Plavix test in the a.m. Respiratory: On room air Cardiac: Remains sinus rhythm Carotid Doppler shows no significant carotid art jorge stenosis Vein mapping complete Labs reviewed shows WBCs elevated 16 Urinalysis negative Neurology consult for history of temporal arteri tis, appreciate input We will repeat platelet response to Plav ix. Possibly plan for CABG in the a.m. Patient was seen and examined by 07/30/22 Patient resting comfortable. Denies complaints. Respiratory: On room air 100% Cardiac: Sinus rhythm Last recieved plavix on 07/28/22, Platelet respons e to PLavix this am= 157 Will plan for surgery next week. Neurology eval underway Patient was seen and examined by Dr. Mccurdy Work-up for coronary artery bypass graft surgery undergoing. Timing of surgery pending 07/31/22 Patient resting comfortable. Denies complaints. Respiratory: On room air 100% Cardiac: Sinus rhythm Patient recieved plavix on 07/28/22, Will repeat p latelet response on Tuesday. Will plan for surgery next week Neurology following. Continue steroids for Hx of temporal arteritis. Carotids show no significant dz, CT head complete No flow-limiting stenosis or occlusion along ma daisy intracranial arterial vessels. No acute intracranial process nor bony injury UA negative, HGa1c 6.2 Patient was seen and examined by Dr. Carmella carmen. Plan repeat platelet response to Plavix in the a.m. Plan for CABG on Tuesday08/01/22 Patient transferred to CVICU last night due to chest pains, started on heparin drip per protocol Currently denies any discomfort or chest pains. Alert and oriented x3 Respiratory: On room air Cardiac: Remains sinus rhythm Platelet response to Plavix 191 Patient has been seen and evaluated by neurology Work-up for coronary artery bypass graft is comp lete. Plan for surgery tomorrow. Patient was seen and examined by Dr. Carmella carmen. Plan of care discussed with team 08/02/22 CABG x 4 (MITCHELL-LAD, SVG-OM1, SVG-OM2, SVG-PDA) ROBBIE EVH (LGSV) Posterior pericardiotomy 08/03/22 POD 1 Patient hemodynamically stable post operatively CXR and labs reviewed Wean off oxygen as tolerated, currently at 2l na sumit cannula Encourage incentive spirometer use and deep frank thing Keep chest tubes and monitor outputs Advance diet as tolerated Glycemic control on insulin drip Pain management Monitor strict I Os DVT ppx with SCDs, GI ppx with PPI Monitor patient closely in CVICU Patient seen and examined [facility] Dr. Mccurdy, plan of care discussed with ICU team 08/04/22 POD 2 Patient recovering well, no complaints CXR and labs reviewed On 5 L nasal cannula, encourage I-S use and wean off oxygen Discontinue central line and guardado Discontinue MS chest tube, keep LP and monitor o utputs Gentle diuresis with lasix IV 10 x 1, monitor st rict I Os Tolerating diet PT/OT Ambulate Monitor patient in CVICU Consultants: anesthesiology, cardiology, cardiov ascular surgery at 1550 RPT #:[id number] END OF REPORT 2022-08-04 09:06:00-00:00 [facility]L [facility] Hospitalist Progress Note REPORT#:[id number] REPORT STATUS: Signed DATE:08/04/22 TIME: 905 PATIENT: MARY DALY UNIT #: [id number] ROOM/BED: [place] [address] : 53 AGE: 66 SEX: M ATTEND: Marcella Loaiza od, MD ADM AUTHOR: Luther Martin [employer] * ALL edits or amendments must be made on the [employer]/computer document * Luther Martin 08/04/22 0906: Subjective Chief complaint: He is stable, Breathing is improved. He is on nasal cannula. Chest tube x 2 noted. His CP is improved. No fever, chills. NO N/v/d. Review of Systems Constitutional: Reports: fatigue, generalized weakness. Allergy/Immun: Denies: anaphylaxis, rhinorrhea. Respiratory: Denies: hemoptysis, parox no cturnal dyspnea, pleurisy, pleuritic pain, pneumonia , productive cough (sputum). Cardiovascular: Denies: chest pain, PETERSEN (dyspnea on exertion), o rthopnea, palpitations. GI: Denies: anorexia, diarrhea, hiatal hernia, recta l pain. : Denies: flank pain, nocturia, penile lesion, maribeth ticular swelling. Musculoskeletal: Denies: extremity pain, joint pain, myalgias, th oracic pain. Endocrine: Denies: cold intolerance, polyphagia, weight gai n, weight loss. Objective General VS/I O: Vital Signs: Date Time Temp Pulse Resp B/P B/P Pulse O2 O2 F low FiO2 Mean Ox Delivery Rate 08/04 0815 37.8 76 28 94/84 90 96 / 0800 Nasal 5 cannula 08/04 0800 145/57 81 06/14 0800 37.7 79 28 130/71 95 95 06/14 0745 37.9 79 30 129/47 69 93 06/14 0730 37.9 77 26 150/50 74 95 06/14 0715 37.9 77 27 146/48 71 95 06/14 0700 142/47 69 06/14 0700 37.9 74 22 115/60 80 96 06/14 0332 38.0 74 20 148/52 75 98 06/14 0330 38.0 75 22 150/50 75 98 06/14 0300 108/59 80 06/14 0300 38.1 79 29 139/49 72 95 06/14 0230 38.1 75 20 141/47 70 97 06/14 0200 113/55 79 06/14 0200 38.1 76 23 139/48 70 97 06/14 0130 38.1 74 20 137/47 69 98 06/14 0100 108/55 76 06/14 0100 38.3 77 28 126/46 68 96 06/14 0030 38.3 74 21 134/48 69 99 06/14 0000 108/58 80 06/14 0000 38.4 77 26 137/47 68 97 06/13 2330 38.4 81 32 152/53 77 95 06/13 2307 104/58 76 06/13 2307 38.4 82 38 147/53 77 89 06/13 2300 38.4 77 23 150/54 77 93 06/13 2230 38.4 78 23 145/52 74 93 08/03 2200 123/60 85 / 2200 38.4 78 25 147/53 76 93 08/03 2130 38.3 76 28 145/52 75 92 08/03 2100 110/55 77 06/ 2100 38.3 78 24 147/51 74 91 08/03 2030 38.3 77 21 142/51 72 94 08/04 1999 Nasal 3 cannula 08/04 1999 111/53 76 08/03 2000 38.3 79 30 144/51 73 92 08/03 1940 92 Nasal 3 cannula 08/03 1930 38.3 78 34 160/57 81 93 08/03 1900 121/58 82 08/03 1900 38.2 79 31 125/41 61 91 08/03 1806 37.9 78 32 91 08/03 1800 37.8 80 35 116/58 83 91 08/03 1700 107/59 80 06 1700 37.6 72 24 140/54 75 93 08/03 1600 106/60 78 08/03 1600 37.3 67 28 143/55 79 94 08/03 1500 110/59 79 08/03 1500 37.2 64 22 135/52 73 95 08/03 1401 111/59 82 08/03 1401 37.2 68 31 120/48 68 98 08/03 1300 109/58 78 08/03 1300 37.0 64 19 130/50 70 97 08/03 1200 97/61 73 08/03 1200 37.1 69 32 123/51 71 94 08/03 1101 109/56 78 08/03 1100 37.0 63 17 127/49 70 95 08/03 1000 113/57 78 08/03 1000 37.1 62 15 122/49 68 96 24 hour I O ending at 0700: 08/04 0700 08/03 1900 Intake Total 500 Output Total 1135 390 Balance -635 -390 Intake, Oral 500 Output, Chest 320 310 Tube Drainage Output, Urine 815 80 Patient 91.6 kg 90.718 kg Weight Weight Standing scale Measurement Method PATIENT WEIGHT: Weight (lb): 201 Weight (oz): 15.09 Weight (kg): 91.600 Medications: Active Meds + DC'd Last 24 Hrs Ipratropium [place] (ATROVENT) 500 MCG RTQ2H PRN PRN INH Cyanocobalamin (Vitamin B-12 500 mcg tab) 500 MC G DAILY PO Ferrous Sulfate (FERROUS SULFATE) 325 MG DAILY P O Bisacodyl (DULCOLAX) 10 MG ONCE PRN RECTAL Magnesium Hydroxide (MILK OF MAGNESIA) 30 ML ONC E PRN PO Mupirocin (BACTROBAN 2% 22 GM OINTMENT) 1 APPLIC BID NASAL Atorvastatin Calcium (LIPITOR) 40 MG 2100 PO Clopidogrel Bisulfate (Plavix) 75 MG DAILY PO Polyethylene Glycol (MIRALAX) 17 GM DAILY PO Ipratropium [place] (ATROVENT) 500 MCG RTQ6H PRN PRN INH Pantoprazole (PROTONIX) 40 MG DAILY@0600 PO Docusate Sodium (COLACE) 100 MG BID PO Gabapentin (NEURONTIN) 200 MG BID PO Metoprolol Tartrate (LOPRESSOR) 12.5 MG Q12HR PO Sennosides (Senna Lax 8.6 MG TABLET) 17.2 MG BED TIME PO Aspirin (ASPIRIN) 81 MG DAILY PO Ipratropium [place] (ATROVENT) 500 MCG RTQ4H INH Amiodarone HCl (CORDARONE) 200 MG TID PO Acetaminophen (TYLENOL) 650 MG Q4H PRN PRN PO Acetaminophen (TYLENOL) 650 MG Q4H PRN PRN RECTA L Albumin Human (ALBUMINAR 25%) 25 GM ASDIR PRN IV (DC) Calcium Chloride (CALCIUM CHLORIDE) 1 GM ASDIR P RN IV Cefazolin Sodium (KEFZOL OR ANCEF) 6 GM ONCE ONE IV (DC) Sodium Chloride (SODIUM CHLORIDE 0.9%) 500 ML Dextrose/Water (DEXTROSE 10% IN WATER) 125 ML DIR PRN IV (CKD) Dextrose/Water (DEXTROSE 10% IN WATER) 250 ML DIR PRN IV (CKD) Epinephrine (ADRENALIN CHLORIDE) 4 MG ASDIR IV Dextrose/Water (DEXTROSE 5% WATER) 246 ML Glucagon (GLUCAGON) 1 MG ASDIR PRN IM Insulin Human Regular (HumuLIN R) 100 UNIT ASDIR IV (CKD) Sodium Chloride (SODIUM CHLORIDE 0.9%) 99 ML Magnesium Sulfate (MAGNESIUM SULFATE 4GM/SWFI 10 0ML) 100 ML ASDIR PRN IV Magnesium Sulfate (MAGNESIUM SULFATE 2GM/SWFI 50 ML) 50 ML ASDIR PRN IV Magnesium Sulfate/Dextrose (MAGNESIUM SULFATE 1G M/D5W 100ML) 100 ML ASDIR PRN IV Nitroglycerin/Dextrose (NITROGLYCERIN 50,000MCG/ D5W 250ML) 250 ML ASDIR IV Norepinephrine Bitartrate (NOREPINEPHRINE 8 MG/N S 250 ML) 250 ML TITRATE IV Ondansetron HCl (ZOFRAN) 4 MG Q6H PRN PRN IV Oxycodone HCl (ROXICODONE) 5 MG Q4H PRN PRN PO Oxycodone HCl (ROXICODONE) 10 MG Q4H PRN PRN PO Potassium Chloride (KCL 20MEQ/SWFI 100ML) 100 ML ASDIR PRN IV Sodium Bicarbonate (SODIUM BICARBONATE) 50 MEQ A SDIR PRN IV Sodium Chloride (SODIUM CHLORIDE 0.9%) 1,000 ML .Q20H IV Sodium Chloride (SODIUM CHLORIDE 0.9%) 250 ML Q2 4H IV Prednisone (predniSONE) 2 MG C BK PO Dietitian nutrition assessment The data set between the solid lines has been im ported from the dietitian's assessment. BMI Calculated: 29.0 Nutrition related diagnosis: Nutrition diagnosis details: Nutrition problem: Increased nutrient needs Nutrition etiology: Acute illness Nutrition signs and symptoms: ESTIMATED NEEDS S/ P SURGERY Nutrition prescription: 1. CONTINUE CARDIAC DIET . HONOR FOOD PREFERENCES APPROPRIATE WITH DIET ORDER. 2. PROVIDE GLUCERNA TID WITH MEALS. 3. MONITOR PO, WT, LABS, BM 4. HEALTHY HEART DIET EDUCATION STEPHAN OR TO DISCHARGE. Dietitian name: Connie Anders, DIET Assessment completed: 08/03/22 Physical Exam General appearance: alert, awake, oriented Head/Eyes: atraumatic, normocephalic, PERRLA Cardiovascular: normal capillary refill, normal heart sounds, regular rate rhythm Respiratory: aerating well, symmetric expansion, no distress Abdomen: non-tender, normal bowel sounds, soft Genitourinary: no bladder distention, no flank p ain, no urinary catheter Extremities: no calf tenderness, no clubbing, no cyanosis Musculoskeletal: no CVA tenderness, no muscle sp asm Neuro/INSURANCE WRITER: alert, oriented X 3, CNII-XII intact Skin: dry, intact Results Findings/Data: Laboratory Tests 08/04 0254 Blood Gas Puncture Site Art Line O2 Saturation (90 - 100 %) 91.1 ABG pH (7.35 - 7.45) 7.456 H ABG pCO2 (35.0 - 45 mmHg) 34.5 L ABG pO2 (80 - 100.0 mmHg) 60.9 L ABG HCO3 (22.0 - 26.0 MMOL/L) 24.1 ABG Total CO2 25.1 ABG Base Excess (-4.0 - 4.0 MMOL/L) 0.5 ABG Hematocrit (37.5 - 50.7 %) 21 L ABG Hemoglobin (12.5 - 16.9 G/DL) 7.2 L Nazia Test N/A Sodium (134 - 147 mmol/L) 138 Potassium (3.4 - 5.0 mmol/L) 3.7 Chloride (100 - 108 mmol/L) 105 Ionized Calcium (1.12 - 1.32 MMOL/L) 1.20 Lactic Acid (0.9 - 1.7 mmol/l) 0.5 L Temperature (F) 100.6 O2 Delivery Device Cannula Laboratory Tests 08/04 08/04 0254 0250 Chemistry Sodium (134 - 147 mEq/L) 137 Potassium (3.4 - 5.0 mEq/L) 3.8 Chloride (100 - 108 mEq/L) 110 H Carbon Dioxide (21 - 33 mEq/l) 25 Anion Gap (0 - 20) 6 BUN (7 - 18 mg/dL) 12 Creatinine (0.6 - 1.3 mg/dL) 0.8 POC Creatinine (0.8 - 1.3 mg/dL) 0.8 Glomerular Filtr Rate (80 - 90) 96.4 H Glucose (70 - 110 mg/dL) 109 POC Glucose (mg/dL) (70 - 110 MG/DL) 92 Calcium (8.0 - 10.5 mg/dL) 8.2 Magnesium (1.80 - 2.40 mg/dL) 2.13 Total Bilirubin (0.0 - 1.0 mg/dL) 0.60 Direct Bilirubin (0.0 - 0.30 MG/DL) 0.30 Indirect Bilirubin (MG/DL) 0.30 AST (15 - 37 IUnit/L) 34 ALT (30 - 65 IUnit/L) 14 L Total Alk Phosphatase (20 - 125 IUnit/L) 32 Total Protein (6.4 - 8.2 g/dL) 5.1 L Albumin (3.4 - 5.0 g/dL) 3.70 Laboratory Tests 08/04 0250 Hematology WBC (4.5 - 11.0 x10 3/uL) 12.1 H RBC (4.00 - 5.60 x10 6/uL) 2.45 L Hgb (12.5 - 16.9 g/dL) 7.7 L Hct (37.5 - 50.7 %) 22.4 L MCV (81.0 - 99.0 fL) 91.4 MCH (27.0 - 33.0 pg) 31.4 MCHC (33.0 - 37.0 g/dL) 34.4 RDW (11.5 - 14.5 %) 14.3 Plt Count (150 - 400 x10 3/uL) 86 L MPV (7.0 - 9.0 fL) 11.6 H Neut % (Auto) (56.0 - 77.0 %) 63.4 Lymph % (Auto) (14.0 - 32.0 %) 14.8 Stephenson % (Auto) (4.8 - 9.0 %) 21.2 H Eos % (Auto) (0.3 - 3.7 %) 0.1 L Baso % (Auto) (0.0 - 2.0 %) 0.1 Neut # (Auto) (2.0 - 7.6 x10 3/uL) 7.68 H Lymph # (Auto) (1.0 - 3.8 x10 3/uL) 1.79 Stephenson # (Auto) (0.1 - 0.8 x10 3/uL) 2.56 H Eos # (Auto) (0.0 - 0.2 x10 3/uL) 0.01 Baso # (Auto) (0.0 - 0.2 x10 3/uL) 0.01 Abs Immat Gran (auto) (0.00 - 0.03 x10 3/uL) 0. 05 H Add Manual Diff NO Immature Gran % (0.0 - 2.0 %) 0.4 Nucleated RBC % (0 - 0 %) 0.0 Nucleated RBCs # (Man) (0.0 - 0.1 x10 3/uL) 0.0 0 Platelet Estimate (ADEQUATE THOUSAND) 100-125 Immature Plt Fraction (0.9 - 11.2 %) 7.3 Results: labs reviewed, vital signs reviewed, vi radha signs stable, current med profile rev'd Treatment Prophylaxis Treatment Prophylaxis Oxygen: room air Diagnosis, Assessment Plan Consultants: anesthesiology, cardiology, cardiov ascular surgery Code status: full code Plan discussed with: patient, admitting physicia n, consultants, nurse Free Text DxA P Notes Free text DxA P notes: Assessment and Plan: - Multivessel CAD. - CP due to CAD. - Hypomagnesemia. - HX of HTN/HLD and CAD. - S/P CABG x 4 (MITCHELL to LAD, saphenous vein to f irst marginal, saphenous vein to second marginal, saphenou s vein to PDA, Amputation of left atrial appendage, Endoscopic vein harvest (left greater saphenous vein) and Posterior pericardiotomy. Plan: CVICU. Agrressive IS and PT/OT. Monitor Chest tube outpt. Pain meds. Antiemetics. Continue BB, Lipitor and ASA. Follow labs and repalce as needed. Monitor. Anthony Loaiza 08/04/22 1702: Attestations Physician Attestation Agree w/findings plan: Patient seen and examined, I agree with the findings and plans as discussed with and documented by Luther Montiel NP Electronically Signed by Luther Martin NP on at 0909 Electronically Signed by Anthony Loaiza MD on 0 08/04/22 at 1728 RPT #:[id number] END OF REPORT 2022-08-04 08:45:00-00:[address] [facility] ([facility] Cardiology Progress Note REPORT#:[id number] REPORT STATUS: Signed DATE:08/04/22 TIME: 0845 PATIENT: MARY DALY UNIT #: [id number] ROOM/BED: [place] [address] : 51 AGE: 66 SEX: M ATTEND: Marcella Loaiza od, MD ADM AUTHOR: Harper Rae NP * ALL edits or amendments must be made on the [email or web address] document * Subjective Chief complaint: Shortness of breath Patient reports: Yes: shortness of breath. No: chest pain, dizzin ess, palpitations. Nursing reports: No: complaints. Comments: Patient is on 3 L nasal cannula, sitting in sarah r. Chest tube x2. He complains shortness of breath with exertion. Telemetry shows normal sinus rhythm. Low-grade fever today 99.9-100.4 Fahrenheit Objective General VS/I O: 24 hour I O ending at 0700: 08/03 1900 08/04 0700 Intake Total 500 Output Total 390 1135 Balance -390 -635 Intake, Oral 500 Output, Chest 310 320 Tube Drainage Output, Urine 80 815 Patient 90.718 kg 91.6 kg Weight Weight Standing scale Measurement Method Vital Signs: Date Time Temp Pulse Resp B/P B/P Pulse O2 O2 F low FiO2 Mean Ox Delivery Rate 08/04 1100 133/48 69 06/14 1100 100.0 75 27 113/57 79 95 06/14 1001 134/52 75 06/14 1001 99.9 76 28 123/57 81 93 06/14 0900 117/53 72 06/14 0900 100.2 78 31 103/56 74 95 06/14 0815 100.0 76 28 94/84 90 96 06/14 0800 Nasal 5 cannula /14 0800 145/57 81 06/14 0800 99.9 79 28 130/71 95 95 06/14 0745 100.2 79 30 129/47 69 93 06/14 0730 100.2 77 26 150/50 74 95 06/14 0715 100.2 77 27 146/48 71 95 06/14 0700 142/47 69 06/14 0700 100.2 74 22 115/60 80 96 06/14 0332 100.4 74 20 148/52 75 98 06/14 0330 100.4 75 22 150/50 75 98 06/14 0300 108/59 80 06/14 0300 100.6 79 29 139/49 72 95 06/14 0230 100.6 75 20 141/47 70 97 06/14 0200 113/55 79 06/14 0200 100.6 76 23 139/48 70 97 06/14 0130 100.6 74 20 137/47 69 98 06/14 0100 108/55 76 06/14 0100 100.9 77 28 126/46 68 96 /14 0030 100.9 74 21 134/48 69 99 06/14 0000 108/58 80 06/ 0000 101.1 77 26 137/47 68 97 / 2330 101.1 81 32 152/53 77 95 06/13 2307 104/58 76 06/ 2307 101.1 82 38 147/53 77 89 06/13 2300 101.1 77 23 150/54 77 93 06/13 2230 101.1 78 23 145/52 74 93 06/13 2200 123/60 85 06/13 2200 101.1 78 25 147/53 76 93 06/13 2130 100.9 76 28 145/52 75 92 06/ 2100 110/55 77 06/ 2100 100.9 78 24 147/51 74 91 06/ 2030 100.9 77 21 142/51 72 94 061999 Nasal 3 cannula 08/03 2000 111/53 76 06/ 2000 100.9 79 30 144/51 73 92 06/13 1940 92 Nasal 3 cannula 08/03 1930 100.9 78 34 160/57 81 93 06/13 1900 121/58 82 06/13 1900 100.8 79 31 125/41 61 91 06/13 1806 100.2 78 32 91 06/13 1800 100.0 80 35 116/58 83 91 06/13 1700 107/59 80 06/13 1700 99.7 72 24 140/54 75 93 06/13 1600 106/60 78 06/13 1600 99.1 67 28 143/55 79 94 06/13 1500 110/59 79 06/13 1500 99.0 64 22 135/52 73 95 PATIENT WEIGHT: Weight (lb): 201 Weight (oz): 15.09 Weight (kg): 91.600 Status post: 07/27 C 08/02 CABG x 4. Physical Exam General appearance: alert, awake, oriented, no a cute distress, pleasant, conversational, mental status normal, no respira tory distress Head/Eyes: atraumatic, PERRL ENT: moist mucosal membranes Neck: full range of motion, no JVD Cardiovascular: CV assessment: regular rate and rhythm, no murm ur Respiratory: decreased breath sounds, no distres s Abdomen: soft, non-tender, normal bowel sounds, no distention, no guarding Genitourinary: no flank pain, no urinary cathete r Upper extremity: UE assessment: normal temperature, no edema Lower extremity: LE assessment: edema, normal temperature Neuro/INSURANCE WRITER: alert, oriented X 3, normal speech Skin: dry, intact Psychiatry: normal affect Results Findings/Data: Laboratory Tests 08/04 0254 Blood Gas Puncture Site Art Line O2 Saturation (90 - 100 %) 91.1 ABG pH (7.35 - 7.45) 7.456 H ABG pCO2 (35.0 - 45 mmHg) 34.5 L ABG pO2 (80 - 100.0 mmHg) 60.9 L ABG HCO3 (22.0 - 26.0 MMOL/L) 24.1 ABG Total CO2 25.1 ABG Base Excess (-4.0 - 4.0 MMOL/L) 0.5 ABG Hematocrit (37.5 - 50.7 %) 21 L ABG Hemoglobin (12.5 - 16.9 G/DL) 7.2 L Nazia Test N/A Sodium (134 - 147 mmol/L) 138 Potassium (3.4 - 5.0 mmol/L) 3.7 Chloride (100 - 108 mmol/L) 105 Ionized Calcium (1.12 - 1.32 MMOL/L) 1.20 Lactic Acid (0.9 - 1.7 mmol/l) 0.5 L Temperature (F) 100.6 O2 Delivery Device Cannula Laboratory Tests 08/04 08/04 0250 0254 Chemistry Sodium (134 - 147 mEq/L) 137 Potassium (3.4 - 5.0 mEq/L) 3.8 Chloride (100 - 108 mEq/L) 110 H Carbon Dioxide (21 - 33 mEq/l) 25 Anion Gap (0 - 20) 6 BUN (7 - 18 mg/dL) 12 Creatinine (0.6 - 1.3 mg/dL) 0.8 POC Creatinine (0.8 - 1.3 mg/dL) 0.8 Glomerular Filtr Rate (80 - 90) 96.4 H Glucose (70 - 110 mg/dL) 109 POC Glucose (mg/dL) (70 - 110 MG/DL) 92 Calcium (8.0 - 10.5 mg/dL) 8.2 Magnesium (1.80 - 2.40 mg/dL) 2.13 Total Bilirubin (0.0 - 1.0 mg/dL) 0.60 Direct Bilirubin (0.0 - 0.30 MG/DL) 0.30 Indirect Bilirubin (MG/DL) 0.30 AST (15 - 37 IUnit/L) 34 ALT (30 - 65 IUnit/L) 14 L Total Alk Phosphatase (20 - 125 IUnit/L) 32 Total Protein (6.4 - 8.2 g/dL) 5.1 L Albumin (3.4 - 5.0 g/dL) 3.70 Laboratory Tests 08/04 0250 Hematology WBC (4.5 - 11.0 x10 3/uL) 12.1 H RBC (4.00 - 5.60 x10 6/uL) 2.45 L Hgb (12.5 - 16.9 g/dL) 7.7 L Hct (37.5 - 50.7 %) 22.4 L MCV (81.0 - 99.0 fL) 91.4 MCH (27.0 - 33.0 pg) 31.4 MCHC (33.0 - 37.0 g/dL) 34.4 RDW (11.5 - 14.5 %) 14.3 Plt Count (150 - 400 x10 3/uL) 86 L MPV (7.0 - 9.0 fL) 11.6 H Neut % (Auto) (56.0 - 77.0 %) 63.4 Lymph % (Auto) (14.0 - 32.0 %) 14.8 Stephenson % (Auto) (4.8 - 9.0 %) 21.2 H Eos % (Auto) (0.3 - 3.7 %) 0.1 L Baso % (Auto) (0.0 - 2.0 %) 0.1 Neut # (Auto) (2.0 - 7.6 x10 3/uL) 7.68 H Lymph # (Auto) (1.0 - 3.8 x10 3/uL) 1.79 Stephenson # (Auto) (0.1 - 0.8 x10 3/uL) 2.56 H Eos # (Auto) (0.0 - 0.2 x10 3/uL) 0.01 Baso # (Auto) (0.0 - 0.2 x10 3/uL) 0.01 Abs Immat Gran (auto) (0.00 - 0.03 x10 3/uL) 0. 05 H Add Manual Diff NO Immature Gran % (0.0 - 2.0 %) 0.4 Nucleated RBC % (0 - 0 %) 0.0 Nucleated RBCs # (Man) (0.0 - 0.1 x10 3/uL) 0.0 0 Platelet Estimate (ADEQUATE THOUSAND) 100-125 Immature Plt Fraction (0.9 - 11.2 %) 7.3 Laboratory Tests 08/04 0250 Chemistry Magnesium (1.80 - 2.40 mg/dL) 2.13 Radiology data: Recent Impressions: RADIOLOGY - XR CHEST 1 V 08/04 0540 Report Impression - Status: SIGNED Entered: 08/04/2022 1003 IMPRESSION: 1. Small left-sided 10% pneumothorax with a ches t tube in place. 2. Findings were called to MARCELINO Carr, [facility] at 10:00 AM Impression By: Vadim Stanley M.D. Results: labs reviewed, vital signs reviewed, vi radha signs stable, rhythm personally rev'd, x-ray personally reviewed, artur forrester med profile rev'd Telemetry Interpretation: nsr Treatment Prophylaxis Treatment Prophylaxis Drain(s)/tube(s): Drain(s)/tube(s): bertha (x2) Diagnosis, Assessment Plan Consultants: anesthesiology, cardiology, cardiov ascular surgery Plan discussed with: patient, nurse Free Text DxA P Notes Free Text DxA P Notes: Mr. Daly is a pleasant 66 y/o male w/ PMHx: CAD s/p PCI, HTN, HLD, T2DM, GERD , temporal arteritis (on prednisone) presented t o [facility] for elective PCI. - CAD s/p CABG x 4 (MITCHELL to LAD, SVG to M1, M2, PDA) EF 55 to 60% with grade 1 diastolic dysfunction On atorvastatin, plavix, ASA, amiodarone and Me toprolol. - HTN. BP controlled. On Metoprololol. - HLD. On statins. - Chronic temporal arteritis. - GERD. Per IM. Encourage deep breath, cough, IS. MDM per Dr. Chaparro. Electronically Signed by aHrper Rae NP on at 1437 Electronically Signed by Denton Chaparro MD on at 1717 RPT #:[id number] END OF REPORT 2022-08-04 04:45:00-00:00 [id number] [place] [id number] PATIENT NAME: MARY DALY ADMIT DATE: 07/30/22 ACCOUNT NO: [id number] ROOM NO: [facility] AGE: 66 REPORT TYPE: eELECTROCARDIOGRAM REPORT SEX: M ADMITTING PHYSICIAN:Anthony Loaiza MD ATTENDING PHYSICIAN:Anthony Loaiza MD Order: [id number] Test Reason : P/S CABG Test Date/Time Stamp: TueAug 04 2022 04:45:21 Blood Pressure : / mmHG Vent. Rate : 084 BPM Atrial Rate : 084 BPM P-R Int : 122 ms QRS Dur : 088 ms QT Int : 392 ms P-R-T Axes : 066 051 052 degree s QTc Int : 463 ms Sinus rhythm with marked sinus arrhythmia Nonspecific T wave abnormality Prolonged QT Abnormal ECG When compared with ECG of 03-AUG-2022 06:05, No significant change was found Confirmed by MD CHAPARRO GERARD ([id number]) on 08/05/19 1:26:52 PM Referred By: Anthony Loaiza Confirmed by:DENTON PÑIA MD Electronically Signed by Denton Chaparro MD on 0 08/04/22 at 1326 PATIENT NAME: MARY DALY 2 2022-08-03 16:03:00-00:00 [facility] Cardiothoracic Surgery Prog REPORT#:[id number] REPORT STATUS: Signed DATE:08/03/22 TIME: 1603 PATIENT: MARY DALY UNIT #: [id number] ROOM/BED: [place] [id number] : 53 AGE: 66 SEX: M ATTEND: Marlo Loaiza MD ADM AUTHOR: Rosalind Mendez Physic * ALL edits or amendments must be made on the [email or web address] document * General Post-op: day 1 Status post: 08/02/22 CABG x 4 (MITCHELL-LAD, SVG-OM1, SVG-OM2, SVG-PDA) ALAA EVH (LGSV) Posterior pericardiotomy Subjective Chief complaint: Chest Pains, CAD. Review of Systems Constitutional: Denies: fatigue, fever, generalized weakness. Skin: Denies: rash, swelling. Allergy/Immun: Denies: itching, rhinorrhea. ENT: Denies: earache, hearing loss. Respiratory: Denies: SOB, wheezing. Cardiovascular: Denies: edema, orthopnea. GI: Denies: constipation, diarrhea. : Denies: dysuria, hematuria. Musculoskeletal: Denies: joint pain, joint swelling. Heme: Denies: bleeding, bruising. Neuro: Denies: confusion. Psych: Denies: anxiety, confusion. All systems rev neg: except as marked Objective General VS/I O Last Documented: Result Date Time B/P 113/57 08/03 1000 B/P Mean 78 08/03 1000 Pulse Ox 96 08/03 1000 Temp 98.8 08/03 1000 Pulse 62 08/03 1000 Resp 15 08/03 1000 O2 Delivery High flow nasal cannula 08/03 0751 O2 Flow Rate 3 08/03 0751 24 hour I O ending at 0700: 08/03 0700 08/02 1900 Intake Total 1803.00 1633.50 Output Total 1435 1835 Balance 368.00 -201.50 Intake, IV 1303.00 1633.50 Intake, Oral 500 Output, Chest 380 355 Tube Drainage Output, Urine 1055 1480 Patient 91.1 kg Weight Weight Bed scale Measurement Method PATIENT WEIGHT: Weight (lb): 200 Weight (oz): 13.46 Weight (kg): 90.718 Dietitian Nutrition assessment The data set between the solid lines has been im ported from the dietitian's assessment. BMI Calculated: 28.8 Nutrition related diagnosis: Nutrition diagnosis details: Nutrition problem: Increased nutrient needs Nutrition etiology: Acute illness Nutrition signs and symptoms: ESTIMATED NEEDS S/ P SURGERY Nutrition prescription: 1. CONTINUE CARDIAC DIET . HONOR FOOD PREFERENCES APPROPRIATE WITH DIET ORDER. 2. PROVIDE GLUCERNA TID WITH MEALS. 3. MONITOR PO, WT, LABS, BM 4. HEALTHY HEART DIET EDUCATION STEPHAN OR TO DISCHARGE. Dietitian name: Connie Anders, DIET Assessment completed: 08/03/22 Physical Exam General appearance: alert, awake, oriented Wound/incision: Location: sternal Site condition: dressing clean dry, dressing in tact HEENT: mucosal membranes moist Neck: full range of motion, non-tender Cardiovascular: BP/pulses equal bilat., regular rate rhythm Respiratory: aerating well, clear to auscultatio n Abdomen: soft, non-tender Extremities: dry, moves all Musculoskeletal: full range of motion, painless range of motion Neuro/INSURANCE WRITER: alert, oriented X 3 Skin: dry, intact Psychiatry: normal affect, normal mood Current Medications Medications: Active Meds + DC'd Last 24 Hrs Ipratropium [place] (ATROVENT) 500 MCG RTQ2H PRN PRN INH Cyanocobalamin (Vitamin B-12 500 mcg tab) 500 MC G DAILY PO Ferrous Sulfate (FERROUS SULFATE) 325 MG DAILY P O Bisacodyl (DULCOLAX) 10 MG ONCE PRN RECTAL Magnesium Hydroxide (MILK OF MAGNESIA) 30 ML ONC E PRN PO Atorvastatin Calcium (LIPITOR) 40 MG 2100 PO Clopidogrel Bisulfate (Plavix) 75 MG DAILY PO Polyethylene Glycol (MIRALAX) 17 GM DAILY PO Ipratropium [place] (ATROVENT) 500 MCG RTQ6H PRN PRN INH Pantoprazole (PROTONIX) 40 MG DAILY@0600 PO Docusate Sodium (COLACE) 100 MG BID PO Gabapentin (NEURONTIN) 200 MG BID PO Metoprolol Tartrate (LOPRESSOR) 12.5 MG Q12HR PO Sennosides (Senna Lax 8.6 MG TABLET) 17.2 MG BED TIME PO Aspirin (ASPIRIN) 81 MG DAILY PO Ipratropium [place] (ATROVENT) 500 MCG RTQ4H INH Amiodarone HCl (CORDARONE) 200 MG TID PO Acetaminophen (TYLENOL) 650 MG Q4H PRN PRN PO Acetaminophen (TYLENOL) 650 MG Q4H PRN PRN RECTA L Albumin Human (ALBUMINAR 25%) 25 GM ASDIR PRN IV (DC) Calcium Chloride (CALCIUM CHLORIDE) 1 GM ASDIR P RN IV Cefazolin Sodium (KEFZOL OR ANCEF) 6 GM ONCE ONE IV (DC) Sodium Chloride (SODIUM CHLORIDE 0.9%) 500 ML Dextrose/Water (DEXTROSE 10% IN WATER) 125 ML DIR PRN IV (CKD) Dextrose/Water (DEXTROSE 10% IN WATER) 250 ML DIR PRN IV (CKD) Epinephrine (ADRENALIN CHLORIDE) 4 MG ASDIR IV Dextrose/Water (DEXTROSE 5% WATER) 246 ML Glucagon (GLUCAGON) 1 MG ASDIR PRN IM Insulin Human Regular (HumuLIN R) 100 UNIT ASDIR IV (CKD) Sodium Chloride (SODIUM CHLORIDE 0.9%) 99 ML Magnesium Sulfate (MAGNESIUM SULFATE 4GM/SWFI 10 0ML) 100 ML ASDIR PRN IV Magnesium Sulfate (MAGNESIUM SULFATE 2GM/SWFI 50 ML) 50 ML ASDIR PRN IV Magnesium Sulfate/Dextrose (MAGNESIUM SULFATE 1G M/D5W 100ML) 100 ML ASDIR PRN IV Nitroglycerin/Dextrose (NITROGLYCERIN 50,000MCG/ D5W 250ML) 250 ML ASDIR IV Norepinephrine Bitartrate (NOREPINEPHRINE 8 MG/N S 250 ML) 250 ML TITRATE IV Ondansetron HCl (ZOFRAN) 4 MG Q6H PRN PRN IV Oxycodone HCl (ROXICODONE) 5 MG Q4H PRN PRN PO Oxycodone HCl (ROXICODONE) 10 MG Q4H PRN PRN PO Potassium Chloride (KCL 20MEQ/SWFI 100ML) 100 ML ASDIR PRN IV Sodium Bicarbonate (SODIUM BICARBONATE) 50 MEQ A SDIR PRN IV Sodium Chloride (SODIUM CHLORIDE 0.9%) 1,000 ML .Q20H IV Sodium Chloride (SODIUM CHLORIDE 0.9%) 250 ML Q2 4H IV Hydrocortisone Sodium Succinate (Solu-CORTEF) 10 0 MG PREOP ONCALL IV (DC ) Acetaminophen (TYLENOL EXTRA STRENGTH) 1,000 MG PREOP ONCALL PO (DC) Cefazolin Sodium (KEFZOL OR ANCEF) 2 GM PREOP WINTER INTERN IV (DC) Gabapentin (NEURONTIN) 200 MG PREOP ONCALL PO (D C) Sodium Chloride (SODIUM CHLORIDE) 20 ML ASDIR IV (DC) Vancomycin HCl (VANCOMYCIN HCL) 1,250 MG PREOP O NCALL IV (DC) Sodium Chloride (SODIUM CHLORIDE 0.9%) 250 ML Verapamil HCl (ISOPTIN) 16.6 MG .Q24H ONE IV (DC ) Heparin Sodium (Porcine) (HEPARIN SODIUM) 1,660 UNIT Sodium Bicarbonate (SODIUM BICARBONATE) 0.7 ML Nitroglycerin/Dextrose (NITROGLYCERIN 50MG/D5W 250ML) 8.3 MG Lactated Ringer's (LACTATED RINGERS) 949.5 ML Nebivolol (BYSTOLIC) 10 MG BEDTIME PO (DC) Nitroglycerin/Dextrose (NITROGLYCERIN 50,000MCG/ D5W 250ML) 250 ML ASDIR IV (DC) Heparin Sodium (HEPARIN 5000 UNITS/ML) 0 ASDIR P RN IV (DC) Heparin Sodium (Porcine) (HEPARIN 25,000 UNITS/ 1/2NS 500ML) 500 ML ASDIR IV (DC) Mupirocin (BACTROBAN 2% 22 GM OINTMENT) 1 APPLIC BID NASAL (DC) Carboxymethylcellulose Sodium (REFRESH TEARS) 1 DROP QID PRN EACH EYE ( DC) Ranolazine (RANEXA 500MG TAB) 500 MG Q12HR PO (D C) Al Hydrox/Mg Hydrox/Simethicone (MYLANTA) 30 ML Q4H PRN PRN PO (DC) Hydralazine HCl (APRESOLINE) 50 MG Q6H PRN PRN P O (DC) Amlodipine Besylate (NORVASC) 10 MG DAILY PO (DC ) Famotidine (PEPCID) 20 MG DAILY PO (DC) Losartan Potassium (COZAAR) 50 MG DAILY PO (DC) Prednisone (predniSONE) 2 MG C BK PO Prednisone (predniSONE) 1 MG BEDTIME PO (DC) Acetaminophen (TYLENOL EXTRA STRENGTH) 500 MG Q4 H PRN PRN PO (DC) Atropine Sulfate (ATROPINE SULFATE 0.1MG/ML SYR) 0.5 MG ASDIR PRN IV (DC ) Sodium Chloride (SODIUM CHLORIDE 0.9%) 500 ML DIR PRN IV (DC) Results Findings/Data: Laboratory Tests 08/03 08/03 08/03 08/02 0701 0406 0228 1 Blood Gas Puncture Site Art Line [place] Anna Marie Art Line Art L ine O2 Saturation (90 - 100 %) 96.1 95.4 96.1 ABG pH (7.35 - 7.45) 7.398 7.393 7.378 ABG pCO2 (35.0 - 45 mmHg) 36.4 39.9 41.7 ABG pO2 (80 - 100.0 mmHg) 83.2 78.2 L 83.4 ABG HCO3 (22.0 - 26.0 MMOL/L) 22.4 24.3 24.6 ABG Total CO2 23.5 25.6 25.9 ABG Base Excess (-4.0 - 4.0 MMOL/L) -2.4 -0.6 - 0.6 ABG Hematocrit (37.5 - 50.7 %) 27 L 26 L 26 L 2 6 L ABG Hemoglobin (12.5 - 16.9 G/DL) 9.1 L 8.7 L 8 .7 L 8.8 L VBG pH (7.33 - 7.45) 7.365 VBG pCO2 (43 - 47 mmHg) 43.0 VBG pO2 (10 - 50 mmHG) 35.6 VBG HCO3 (22 - 27 MMOL/L) 24.5 POC VBG Total CO2 25.8 VBG O2 Saturation (60 - 80 %) 65.6 VBG Base Excess (-4.0 - 4.0 MMOL/L) -0.8 VBG Temperature (F) 98.8 Sodium (134 - 147 mmol/L) 141 141 141 140 Potassium (3.4 - 5.0 mmol/L) 4.0 4.2 4.3 4.6 Chloride (100 - 108 mmol/L) 110 H 107 108 108 Ionized Calcium (1.12 - 1.32 MMOL/L) 1.17 1.21 1.21 1.29 Lactic Acid (0.9 - 1.7 mmol/l) 0.9 0.5 L 0.6 L 1.5 Temperature (F) 99.1 98.6 98.2 O2 Delivery Device Cannula Cannula Cannula Can rowdy 08/02 1948 Blood Gas Puncture Site [place] Anna Marie ABG Hematocrit (37.5 - 50.7 %) 25 L ABG Hemoglobin (12.5 - 16.9 G/DL) 8.6 L VBG pH (7.33 - 7.45) 7.334 VBG pCO2 (43 - 47 mmHg) 45.9 VBG pO2 (10 - 50 mmHG) 38.0 VBG HCO3 (22 - 27 MMOL/L) 24.5 POC VBG Total CO2 25.9 VBG O2 Saturation (60 - 80 %) 68.8 VBG Base Excess (-4.0 - 4.0 MMOL/L) -1.4 VBG Temperature (F) 98.1 Sodium (134 - 147 mmol/L) 141 Potassium (3.4 - 5.0 mmol/L) 4.3 Chloride (100 - 108 mmol/L) 108 Ionized Calcium (1.12 - 1.32 MMOL/L) 1.34 H Lactic Acid (0.9 - 1.7 mmol/l) 2.0 H O2 Delivery Device Cannula Laboratory Tests 08/03 08/03 08/03 08/03 08/03 0701 0406 0230 0228 0010 Chemistry Sodium (134 - 147 mEq/L) 141 Potassium (3.4 - 5.0 mEq/L) 4.3 Chloride (100 - 108 mEq/L) 110 H Carbon Dioxide (21 - 33 mEq/l) 25 Anion Gap (0 - 20) 10 BUN (7 - 18 mg/dL) 10 Creatinine (0.6 - 1.3 mg/dL) 0.8 POC Creatinine (0.8 - 1.3 mg/dL) 0.8 0.7 L 0.8 Glomerular Filtr Rate (80 - 90) 96.4 H Glucose (70 - 110 mg/dL) 97 POC Glucose (70 - 110 MG/DL) 120 H POC Glucose (mg/dL) (70 - 110 MG/DL) 114 H 104 93 Calcium (8.0 - 10.5 mg/dL) 8.3 Magnesium (1.80 - 2.40 mg/dL) 2.01 Total Bilirubin (0.0 - 1.0 mg/dL) 0.60 Direct Bilirubin (0.0 - 0.30 MG/DL) 0.30 Indirect Bilirubin (MG/DL) 0.30 AST (15 - 37 IUnit/L) 46 H ALT (30 - 65 IUnit/L) 15 L Total Alk Phosphatase (20 - 125 IUnit/L) 33 Total Protein (6.4 - 8.2 g/dL) 5.0 L Albumin (3.4 - 5.0 g/dL) 3.60 08/02 Chemistry Sodium (134 - 147 mEq/L) 141 Potassium (3.4 - 5.0 mEq/L) 4.5 Chloride (100 - 108 mEq/L) 112 H Carbon Dioxide (21 - 33 mEq/l) 24 Anion Gap (0 - 20) 10 BUN (7 - 18 mg/dL) 10 Creatinine (0.6 - 1.3 mg/dL) 0.8 POC Creatinine (0.8 - 1.3 mg/dL) 0.8 0.7 L Glomerular Filtr Rate (80 - 90) 96.4 H Glucose (70 - 110 mg/dL) 156 H POC Glucose (70 - 110 MG/DL) 134 H 143 H POC Glucose (mg/dL) (70 - 110 MG/DL) 147 H 154 H Calcium (8.0 - 10.5 mg/dL) 8.1 Magnesium (1.80 - 2.40 mg/dL) 2.22 08/029 Chemistry POC Glucose (70 - 110 MG/DL) 109 Laboratory Tests 08/030 7 Hematology WBC (4.5 - 11.0 x10 3/uL) 12.7 H 14.0 H RBC (4.00 - 5.60 x10 6/uL) 2.73 L 2.94 L Hgb (12.5 - 16.9 g/dL) 8.7 L 9.4 L Hct (37.5 - 50.7 %) 25.2 L 27.0 L MCV (81.0 - 99.0 fL) 92.3 91.8 MCH (27.0 - 33.0 pg) 31.9 32.0 MCHC (33.0 - 37.0 g/dL) 34.5 34.8 RDW (11.5 - 14.5 %) 13.8 13.6 Plt Count (150 - 400 x10 3/uL) 114 L 113 L MPV (7.0 - 9.0 fL) 11.4 H 10.9 H Neut % (Auto) (56.0 - 77.0 %) 73.9 80.2 H Lymph % (Auto) (14.0 - 32.0 %) 7.6 L 3.4 L Stephenson % (Auto) (4.8 - 9.0 %) 17.9 H 15.9 H Eos % (Auto) (0.3 - 3.7 %) 0.0 L 0.0 L Baso % (Auto) (0.0 - 2.0 %) 0.1 0.1 Neut # (Auto) (2.0 - 7.6 x10 3/uL) 9.38 H 11.24 H Lymph # (Auto) (1.0 - 3.8 x10 3/uL) 0.96 L 0.48 L Stephenson # (Auto) (0.1 - 0.8 x10 3/uL) 2.27 H 2.23 H Eos # (Auto) (0.0 - 0.2 x10 3/uL) 0.00 0.00 Baso # (Auto) (0.0 - 0.2 x10 3/uL) 0.01 0.01 Abs Immat Gran (auto) (0.00 - 0.03 x10 3/uL) 0. 06 H 0.06 H Add Manual Diff NO NO Immature Gran % (0.0 - 2.0 %) 0.5 0.4 Nucleated RBC % (0 - 0 %) 0.0 0.0 Nucleated RBCs # (Man) (0.0 - 0.1 x10 3/uL) 0.0 0 0.00 Radiology data: Recent Impressions: RADIOLOGY - XR CHEST 1 V 08/03 0637 Report Impression - Status: SIGNED Entered: 08/03/2022 0800 IMPRESSION: Mild worsening left basilar opacities. Impression By: [email or web address] - Allan Diana M.D. Results: labs reviewed, vital signs stable, rycharity m personally rev'd, x-ray personally reviewed, current med profile rev'd Diagnosis, Assessment Plan Free Text A P: This is a 66-year gentleman with past medical history of coronary artery disease status post PCI in the past, with most recent in July 07, 2022, history of temporal arteritis on chronic prednisone since 2 017, diverticulitis, gout, hypertension, hyperlipidemia. The patient reports a histor y of exertional shortness of breath with occasional chest pain over the past several weeks. He underwent cardiac work-up with his cardiologi st and left heart cath was performed yesterday. This revealed multivessel CAD. CV surgery consulted for evaluation for coronary bypass graft. The patient reports a histor y of diabetes, diet controlled for the past several years. Patient denies any history of smoking. Patient admits to drinking 1 alcoholic beverage per day Patient has a strong family history of coronary artery disease with coronary bypass graft surgery in his brother Patient continues to take prednisone 3 mg daily for history of temporal arteritis in 2017 Assessment/plan 1. Coronary artery disease Previous PCI with most recent June 2022, hold P lavix in preparation for surgery. 2. Hypertension 3. Hyperlipidemia 4. Temporal arteritis in 2017 Continues on prednisone 3 mg We will begin work-up for coronary bypass graft surgery. Patient was seen in exam by Dr. Mccurdy. Further recommendations to follow as work-up und erway Thank you for this kind consultation 07/29/22 Patient resting comfortable, denies complaint Patient received Plavix 75 m g on 07/28/2022 , will obtain repeat platelet response to Plavix test in the a.m. Respiratory: On room air Cardiac: Remains sinus rhythm Carotid Doppler shows no significant carotid art jorge stenosis Vein mapping complete Labs reviewed shows WBCs elevated 16 Urinalysis negative Neurology consult for history of temporal arteri tis, appreciate input We will repeat platelet response to Plav ix. Possibly plan for CABG in the a.m. Patient was seen and examined by 07/30/22 Patient resting comfortable. Denies complaints. Respiratory: On room air 100% Cardiac: Sinus rhythm Last recieved plavix on 07/28/22, Platelet respons e to PLavix this am= 157 Will plan for surgery next week. Neurology eval underway Patient was seen and examined by Dr. Mccurdy Work-up for coronary artery bypass graft surgery undergoing. Timing of surgery pending 07/31/22 Patient resting comfortable. Denies complaints. Respiratory: On room air 100% Cardiac: Sinus rhythm Patient recieved plavix on 07/28/22, Will repeat p latelet response on Tuesday. Will plan for surgery next week Neurology following. Continue steroids for Hx of temporal arteritis. Carotids show no significant dz, CT head complete No flow-limiting stenosis or occlusion along ma daisy intracranial arterial vessels. No acute intracranial process nor bony injury UA negative, HGa1c 6.2 Patient was seen and examined by Dr. Carmella carmen. Plan repeat platelet response to Plavix in the a.m. Plan for CABG on Tuesday08/01/22 Patient transferred to CVICU last night due to chest pains, started on heparin drip per protocol Currently denies any discomfort or chest pains. Alert and oriented x3 Respiratory: On room air Cardiac: Remains sinus rhythm Platelet response to Plavix 191 Patient has been seen and evaluated by neurology Work-up for coronary artery bypass graft is comp lete. Plan for surgery tomorrow. Patient was seen and examined by Dr. Carmella carmen. Plan of care discussed with team 08/02/22 CABG x 4 (MITCHELL-LAD, SVG-OM1, SVG-OM2, SVG-PDA) ALAA EVH (LGSV) Posterior pericardiotomy 08/03/22 POD 1 Patient hemodynamically stable post operatively CXR and labs reviewed Wean off oxygen as tolerated, currently at 2l na sumit cannula Encourage incentive spirometer use and deep frank thing Keep chest tubes and monitor outputs Advance diet as tolerated Glycemic control on insulin drip Pain management Monitor strict I Os DVT ppx with SCDs, GI ppx with PPI Monitor patient closely in CVICU Patient seen and examined wi th Dr. Mccurdy, plan of care discussed with ICU team Consultants: anesthesiology, cardiology, cardiov ascular surgery at 1113 at 0910 RPT #:[id number] END OF REPORT 2022-08-03 13:50:00-00:00 [facility] ([facility] Hospitalist Progress Note REPORT#:[id number] REPORT STATUS: Signed DATE:08/03/22 TIME: 1350 PATIENT: MARY DALY UNIT #: [id number] ROOM/BED: [place] [address] : 53 AGE: 66 SEX: M ATTEND: Marcella Loaiza od, MD ADM AUTHOR: Luther Martin [employer] * ALL edits or amendments must be made on the [employer]/computer document * Luther Martin 08/03/22 1350: Subjective Chief complaint: S/P CABG x 4 (MITCHELL to LAD, saphenous vein to first marginal, saphenous vein to second margina l, saphenous vein to PDA, Amputation of left atrial appendage, Endoscopic vein harvest (left greater saphenous vein) and Posterior pericardiotomy. He is on nasal cannula. Chest tube x 2 noted. His CP is improved. No fever, chills. NO N/v/d. Review of Systems Constitutional: Reports: fatigue, generalized weakness. Allergy/Immun: Denies: anaphylaxis, itching, rhinorrhea. ENT: Denies: ear ringing, mouth pain, nose bleeding, sore throat, tongue pain. Respiratory: Reports: PETERSEN (dyspnea on exertion), SOB. Cardiovascular: Denies: PETERSEN (dyspnea on exertion), orthopnea, pa lpitations, parox nocturnal dyspnea. GI: Denies: constipation, dysphagia, hematemesis, hi atal hernia, nausea. : Denies: flank pain, hematuria, penile lesion, te sticular pain, testicular swelling. Endocrine: Denies: heat intolerance, polydipsia, polyuria, weight gain. Neuro: Denies: change in LOC, gait problem, lightheaded . Objective General VS/I O: Vital Signs: Date Time Temp Pulse Resp B/P B/P Pulse O2 O2 Flow FiO2 Mean Ox Delivery Rate 08/03 1000 113/57 78 08/03 1000 37.1 62 15 122/49 68 96 08/03 0900 104/59 78 08/03 0900 37.4 71 23 111/44 61 94 08/03 0801 110/59 76 08/03 0800 37.6 74 36 120/53 72 95 08/03 0751 94 High flow 3 nasal cannula 08/03 0700 114/68 84 08/03 0700 37.6 74 26 117/38 76 94 / 0600 37.3 75 24 136/51 75 95 08/03 0500 37.3 75 20 139/55 78 94 08/03 0400 108/62 79 08/03 0400 37.1 74 22 129/55 77 95 06/13 0303 95 Nasal 2 cannula 06/13 0300 103/59 75 06/13 0300 37.1 72 18 118/52 72 95 06/13 0200 109/61 78 06/13 0200 37.1 74 29 120/56 75 95 06/13 0100 108/59 78 06/13 0100 37.1 76 18 118/55 75 94 06/13 0030 37.1 75 16 114/55 74 96 06/13 0000 105/58 74 06/13 0000 37.1 75 15 112/55 72 96 06/12 2311 37.0 78 20 113/54 73 95 06/12 2300 108/58 78 06/12 2300 37.0 77 20 115/56 76 95 06/12 2230 37.0 79 21 114/59 77 95 06/12 2200 102/64 78 06/ 2200 37.0 79 15 113/55 74 95 /12 2130 37.0 80 22 119/56 77 96 / 2100 98/63 75 / 2100 36.9 78 19 120/57 77 96 08/02 2030 36.8 78 20 126/58 79 96 08/03 1999 Nasal 2 cannula 08/02 2000 113/61 81 08/03 1999 36.8 78 28 124/56 78 97 08/02 1930 36.8 78 29 127/58 79 96 08/02 1916 96 Nasal 2 cannula 08/02 1900 107/58 77 / 1900 36.7 77 23 117/55 73 96 /12 1700 97/52 70 08/02 1700 35.8 73 19 121/50 72 99 /12 1600 120/66 89 08/02 1600 36.1 75 17 149/58 85 99 / 1535 36.2 80 18 125/53 80 /12 1515 99 Simple 15 mask 24 hour I O ending at 0700: 08/03 0700 08/02 1900 Intake Total 1803.00 1633.50 Output Total 1435 1835 Balance 368.00 -201.50 Intake, IV 1303.00 1633.50 Intake, Oral 500 Output, Chest 380 355 Tube Drainage Output, Urine 1055 1480 Patient 91.1 kg Weight Weight Bed scale Measurement Method PATIENT WEIGHT: Weight (lb): 200 Weight (oz): 13.46 Weight (kg): 91.100 Medications: Active Meds + DC'd Last 24 Hrs Ipratropium [place] (ATROVENT) 500 MCG RTQ2H PRN PRN INH Cyanocobalamin (Vitamin B-12 500 mcg tab) 500 MC G DAILY PO Ferrous Sulfate (FERROUS SULFATE) 325 MG DAILY P O Bisacodyl (DULCOLAX) 10 MG ONCE PRN RECTAL Magnesium Hydroxide (MILK OF MAGNESIA) 30 ML ONC E PRN PO Atorvastatin Calcium (LIPITOR) 40 MG 2100 PO Clopidogrel Bisulfate (Plavix) 75 MG DAILY PO Polyethylene Glycol (MIRALAX) 17 GM DAILY PO Ipratropium [place] (ATROVENT) 500 MCG RTQ6H PRN PRN INH Pantoprazole (PROTONIX) 40 MG DAILY@0600 PO Docusate Sodium (COLACE) 100 MG BID PO Gabapentin (NEURONTIN) 200 MG BID PO Metoprolol Tartrate (LOPRESSOR) 12.5 MG Q12HR PO Sennosides (Senna Lax 8.6 MG TABLET) 17.2 MG BED TIME PO Aspirin (ASPIRIN) 81 MG DAILY PO Ipratropium [place] (ATROVENT) 500 MCG RTQ4H INH Amiodarone HCl (CORDARONE) 200 MG TID PO Sugammadex Sodium (BRIDION) 0 .STK-MED ONE IV (D C) Acetaminophen (TYLENOL) 650 MG Q4H PRN PRN PO Acetaminophen (TYLENOL) 650 MG Q4H PRN PRN RECTA L Albumin Human (ALBUMINAR 25%) 25 GM ASDIR PRN IV (DC) Calcium Chloride (CALCIUM CHLORIDE) 1 GM ASDIR P RN IV Cefazolin Sodium (KEFZOL OR ANCEF) 6 GM ONCE ONE IV (DC) Sodium Chloride (SODIUM CHLORIDE 0.9%) 500 ML Dextrose/Water (DEXTROSE 10% IN WATER) 125 ML DIR PRN IV (CKD) Dextrose/Water (DEXTROSE 10% IN WATER) 250 ML DIR PRN IV (CKD) Epinephrine (ADRENALIN CHLORIDE) 4 MG ASDIR IV Dextrose/Water (DEXTROSE 5% WATER) 246 ML Glucagon (GLUCAGON) 1 MG ASDIR PRN IM Insulin Human Regular (HumuLIN R) 100 UNIT ASDIR IV (CKD) Sodium Chloride (SODIUM CHLORIDE 0.9%) 99 ML Magnesium Sulfate (MAGNESIUM SULFATE 4GM/SWFI 10 0ML) 100 ML ASDIR PRN IV Magnesium Sulfate (MAGNESIUM SULFATE 2GM/SWFI 50 ML) 50 ML ASDIR PRN IV Magnesium Sulfate/Dextrose (MAGNESIUM SULFATE 1G M/D5W 100ML) 100 ML ASDIR PRN IV Nitroglycerin/Dextrose (NITROGLYCERIN 50,000MCG/ D5W 250ML) 250 ML ASDIR IV Norepinephrine Bitartrate (NOREPINEPHRINE 8 MG/N S 250 ML) 250 ML TITRATE IV Ondansetron HCl (ZOFRAN) 4 MG Q6H PRN PRN IV Oxycodone HCl (ROXICODONE) 5 MG Q4H PRN PRN PO Oxycodone HCl (ROXICODONE) 10 MG Q4H PRN PRN PO Potassium Chloride (KCL 20MEQ/SWFI 100ML) 100 ML ASDIR PRN IV Sodium Bicarbonate (SODIUM BICARBONATE) 50 MEQ A SDIR PRN IV Sodium Chloride (SODIUM CHLORIDE 0.9%) 1,000 ML .Q20H IV Sodium Chloride (SODIUM CHLORIDE 0.9%) 250 ML Q2 4H IV Hydrocortisone Sodium Succinate (Solu-CORTEF) 10 0 MG PREOP ONCALL IV (DC ) Acetaminophen (TYLENOL EXTRA STRENGTH) 1,000 MG PREOP ONCALL PO (DC) Cefazolin Sodium (KEFZOL OR ANCEF) 2 GM PREOP WINTER INTERN IV (DC) Gabapentin (NEURONTIN) 200 MG PREOP ONCALL PO (D C) Sodium Chloride (SODIUM CHLORIDE) 20 ML ASDIR IV (DC) Vancomycin HCl (VANCOMYCIN HCL) 1,250 MG PREOP O NCALL IV (DC) Sodium Chloride (SODIUM CHLORIDE 0.9%) 250 ML Verapamil HCl (ISOPTIN) 16.6 MG .Q24H ONE IV (DC ) Heparin Sodium (Porcine) (HEPARIN SODIUM) 1,660 UNIT Sodium Bicarbonate (SODIUM BICARBONATE) 0.7 ML Nitroglycerin/Dextrose (NITROGLYCERIN 50MG/D5W 250ML) 8.3 MG Lactated Ringer's (LACTATED RINGERS) 949.5 ML Nebivolol (BYSTOLIC) 10 MG BEDTIME PO (DC) Nitroglycerin/Dextrose (NITROGLYCERIN 50,000MCG/ D5W 250ML) 250 ML ASDIR IV (DC) Heparin Sodium (HEPARIN 5000 UNITS/ML) 0 ASDIR P RN IV (DC) Heparin Sodium (Porcine) (HEPARIN 25,000 UNITS/ 1/2NS 500ML) 500 ML ASDIR IV (DC) Mupirocin (BACTROBAN 2% 22 GM OINTMENT) 1 APPLIC BID NASAL (DC) Carboxymethylcellulose Sodium (REFRESH TEARS) 1 DROP QID PRN EACH EYE ( DC) Ranolazine (RANEXA 500MG TAB) 500 MG Q12HR PO (D C) Al Hydrox/Mg Hydrox/Simethicone (MYLANTA) 30 ML Q4H PRN PRN PO (DC) Hydralazine HCl (APRESOLINE) 50 MG Q6H PRN PRN P O (DC) Amlodipine Besylate (NORVASC) 10 MG DAILY PO (DC ) Famotidine (PEPCID) 20 MG DAILY PO (DC) Losartan Potassium (COZAAR) 50 MG DAILY PO (DC) Prednisone (predniSONE) 2 MG C BK PO Atorvastatin Calcium (LIPITOR) 10 MG BEDTIME PO (DC) Prednisone (predniSONE) 1 MG BEDTIME PO (DC) Acetaminophen (TYLENOL EXTRA STRENGTH) 500 MG Q4 H PRN PRN PO (DC) Atropine Sulfate (ATROPINE SULFATE 0.1MG/ML SYR) 0.5 MG ASDIR PRN IV (DC ) Sodium Chloride (SODIUM CHLORIDE 0.9%) 500 ML DIR PRN IV (DC) Dietitian nutrition assessment The data set between the solid lines has been im ported from the dietitian's assessment. BMI Calculated: 28.8 Nutrition related diagnosis: Nutrition diagnosis details: Nutrition problem: Increased nutrient needs Nutrition etiology: Acute illness Nutrition signs and symptoms: ESTIMATED NEEDS S/ P SURGERY Nutrition prescription: 1. CONTINUE CARDIAC DIET . HONOR FOOD PREFERENCES APPROPRIATE WITH DIET ORDER. 2. PROVIDE GLUCERNA TID WITH MEALS. 3. MONITOR PO, WT, LABS, BM 4. HEALTHY HEART DIET EDUCATION STEPHAN OR TO DISCHARGE. Dietitian name: Connie Anders, DIET Assessment completed: 08/03/22 Physical Exam General appearance: alert, awake, oriented Head/Eyes: atraumatic, normocephalic, PERRLA Cardiovascular: normal capillary refill, normal heart sounds, regular rate rhythm Respiratory: aerating well, symmetric expansion, no distress Abdomen: non-tender, normal bowel sounds, soft Genitourinary: no bladder distention, no flank p ain, no urinary catheter Extremities: no calf tenderness, no clubbing, no cyanosis Musculoskeletal: no CVA tenderness, no muscle sp asm Neuro/INSURANCE WRITER: alert, oriented X 3, CNII-XII intact Skin: dry, intact Results Findings/Data: Laboratory Tests 08/03 08/03 08/03 08/02 0701 0406 0228 2044 Blood Gas Puncture Site Art Line [place] Anna Marie Art Line Art L ine O2 Saturation (90 - 100 %) 96.1 95.4 96.1 ABG pH (7.35 - 7.45) 7.398 7.393 7.378 ABG pCO2 (35.0 - 45 mmHg) 36.4 39.9 41.7 ABG pO2 (80 - 100.0 mmHg) 83.2 78.2 L 83.4 ABG HCO3 (22.0 - 26.0 MMOL/L) 22.4 24.3 24.6 ABG Total CO2 23.5 25.6 25.9 ABG Base Excess (-4.0 - 4.0 MMOL/L) -2.4 -0.6 - 0.6 ABG Hematocrit (37.5 - 50.7 %) 27 L 26 L 26 L 2 6 L ABG Hemoglobin (12.5 - 16.9 G/DL) 9.1 L 8.7 L 8 .7 L 8.8 L VBG pH (7.33 - 7.45) 7.365 VBG pCO2 (43 - 47 mmHg) 43.0 VBG pO2 (10 - 50 mmHG) 35.6 VBG HCO3 (22 - 27 MMOL/L) 24.5 POC VBG Total CO2 25.8 VBG O2 Saturation (60 - 80 %) 65.6 VBG Base Excess (-4.0 - 4.0 MMOL/L) -0.8 VBG Temperature (F) 98.8 Sodium (134 - 147 mmol/L) 141 141 141 140 Potassium (3.4 - 5.0 mmol/L) 4.0 4.2 4.3 4.6 Chloride (100 - 108 mmol/L) 110 H 107 108 108 Ionized Calcium (1.12 - 1.32 MMOL/L) 1.17 1.21 1.21 1.29 Lactic Acid (0.9 - 1.7 mmol/l) 0.9 0.5 L 0.6 L 1.5 Temperature (F) 99.1 98.6 98.2 O2 Delivery Device Cannula Cannula Cannula Leonel annemarie 08/02 08/02 08/02 194 1544 1417 Blood Gas Puncture Site [place] Anna Marie O2 Saturation (90 - 100 %) 96.4 99.9 ABG pH (7.35 - 7.45) 7.300 L 7.391 ABG pCO2 (35.0 - 45 mmHg) 38.2 36.7 ABG pO2 (80 - 100.0 mmHg) 93.1 254.6 *H ABG HCO3 (22.0 - 26.0 MMOL/L) 18.8 L 22.3 ABG Total CO2 20.0 23.4 ABG Base Excess (-4.0 - 4.0 MMOL/L) -7.6 L -2.4 ABG Hematocrit (37.5 - 50.7 %) 25 L 33 L 27 L ABG Hemoglobin (12.5 - 16.9 G/DL) 8.6 L 11.1 L 9.0 L VBG pH (7.33 - 7.45) 7.334 VBG pCO2 (43 - 47 mmHg) 45.9 VBG pO2 (10 - 50 mmHG) 38.0 VBG HCO3 (22 - 27 MMOL/L) 24.5 POC VBG Total CO2 25.9 VBG O2 Saturation (60 - 80 %) 68.8 VBG Base Excess (-4.0 - 4.0 MMOL/L) -1.4 VBG Temperature (F) 98.1 Sodium (134 - 147 mmol/L) 141 141 139 Potassium (3.4 - 5.0 mmol/L) 4.3 3.4 4.3 Chloride (100 - 108 mmol/L) 108 108 105 Ionized Calcium (1.12 - 1.32 MMOL/L) 1.34 H 1.1 5 1.26 Lactic Acid (0.9 - 1.7 mmol/l) 2.0 H 2.3 H O2 Delivery Device Cannula Laboratory Tests 08/03 08/03 08/03 08/03 08/03 0701 0406 0230 0228 0010 Chemistry Sodium (134 - 147 mEq/L) 141 Potassium (3.4 - 5.0 mEq/L) 4.3 Chloride (100 - 108 mEq/L) 110 H Carbon Dioxide (21 - 33 mEq/l) 25 Anion Gap (0 - 20) 10 BUN (7 - 18 mg/dL) 10 Creatinine (0.6 - 1.3 mg/dL) 0.8 POC Creatinine (0.8 - 1.3 mg/dL) 0.8 0.7 L 0.8 Glomerular Filtr Rate (80 - 90) 96.4 H Glucose (70 - 110 mg/dL) 97 POC Glucose (70 - 110 MG/DL) 120 H POC Glucose (mg/dL) (70 - 110 MG/DL) 114 H 104 93 Calcium (8.0 - 10.5 mg/dL) 8.3 Magnesium (1.80 - 2.40 mg/dL) 2.01 Total Bilirubin (0.0 - 1.0 mg/dL) 0.60 Direct Bilirubin (0.0 - 0.30 MG/DL) 0.30 Indirect Bilirubin (MG/DL) 0.30 AST (15 - 37 IUnit/L) 46 H ALT (30 - 65 IUnit/L) 15 L Total Alk Phosphatase (20 - 125 33 IUnit/L) Total Protein (6.4 - 8.2 g/dL) 5.0 L Albumin (3.4 - 5.0 g/dL) 3.60 08/027 7 2045 2044 1949 Chemistry Sodium (134 - 147 mEq/L) 141 Potassium (3.4 - 5.0 mEq/L) 4.5 Chloride (100 - 108 mEq/L) 112 H Carbon Dioxide (21 - 33 mEq/l) 24 Anion Gap (0 - 20) 10 BUN (7 - 18 mg/dL) 10 Creatinine (0.6 - 1.3 mg/dL) 0.8 POC Creatinine (0.8 - 1.3 mg/dL) 0.8 0.7 L Glomerular Filtr Rate (80 - 90) 96.4 H Glucose (70 - 110 mg/dL) 156 H POC Glucose (70 - 110 MG/DL) 134 H 143 H POC Glucose (mg/dL) (70 - 110 MG/DL) 147 H 154 H Calcium (8.0 - 10.5 mg/dL) 8.1 Magnesium (1.80 - 2.40 mg/dL) 2.22 08/02 08/02 08/02 08/02 1849 1544 1523 1417 Chemistry Sodium (134 - 147 mEq/L) 140 Potassium (3.4 - 5.0 mEq/L) 3.7 Chloride (100 - 108 mEq/L) 109 H Carbon Dioxide (21 - 33 mEq/l) 21 Anion Gap (0 - 20) 14 BUN (7 - 18 mg/dL) 12 Creatinine (0.6 - 1.3 mg/dL) 1.0 POC Creatinine (0.8 - 1.3 mg/dL) 0.9 0.8 Glomerular Filtr Rate (80 - 90) 82.0 Glucose (70 - 110 mg/dL) 205 H POC Glucose (70 - 110 MG/DL) 109 POC Glucose (mg/dL) (70 - 110 MG/DL) 187 H 187 H Calcium (8.0 - 10.5 mg/dL) 7.7 L Magnesium (1.80 - 2.40 mg/dL) 2.25 Laboratory Tests 08/02 08/02 1523 1419 Coagulation INR (0.8 - 1.2) 1.3 H PTT ([place]) (25.0 - 39.5 Seconds) 27.4 PT Patient/Control Mix (9.3 - 12.9 SECONDS) 14. 4 H Activated Coag Time (74 - 137 SEC) 107 Laboratory Tests 08/03 08/02 08/02 0230 2047 1522 Hematology WBC (4.5 - 11.0 x10 3/uL) 12.7 H 14.0 H 27.2 H RBC (4.00 - 5.60 x10 6/uL) 2.73 L 2.94 L 3.78 L Hgb (12.5 - 16.9 g/dL) 8.7 L 9.4 L 12.3 L Hct (37.5 - 50.7 %) 25.2 L 27.0 L 34.5 L MCV (81.0 - 99.0 fL) 92.3 91.8 91.3 MCH (27.0 - 33.0 pg) 31.9 32.0 32.5 MCHC (33.0 - 37.0 g/dL) 34.5 34.8 35.7 RDW (11.5 - 14.5 %) 13.8 13.6 13.6 Plt Count (150 - 400 x10 3/uL) 114 L 113 L 167 MPV (7.0 - 9.0 fL) 11.4 H 10.9 H 11.0 H Neut % (Auto) (56.0 - 77.0 %) 73.9 80.2 H 76.5 Lymph % (Auto) (14.0 - 32.0 %) 7.6 L 3.4 L 9.7 L Stephenson % (Auto) (4.8 - 9.0 %) 17.9 H 15.9 H 12.3 H Eos % (Auto) (0.3 - 3.7 %) 0.0 L 0.0 L 0.4 Baso % (Auto) (0.0 - 2.0 %) 0.1 0.1 0.3 Neut # (Auto) (2.0 - 7.6 x10 3/uL) 9.38 H 11.24 H 20.85 H Lymph # (Auto) (1.0 - 3.8 x10 3/uL) 0.96 L 0.48 L 2.64 Stephenson # (Auto) (0.1 - 0.8 x10 3/uL) 2.27 H 2.23 H 3.34 H Eos # (Auto) (0.0 - 0.2 x10 3/uL) 0.00 0.00 0. 10 Baso # (Auto) (0.0 - 0.2 x10 3/uL) 0.01 0.01 0. 07 Abs Immat Gran (auto) (0.00 - 0.03 x10 3/uL) 0. 06 H 0.06 H 0.22 H Add Manual Diff NO NO NO Immature Gran % (0.0 - 2.0 %) 0.5 0.4 0.8 Nucleated RBC % (0 - 0 %) 0.0 0.0 0.0 Nucleated RBCs # (Man) (0.0 - 0.1 x10 3/uL) 0.0 0 0.00 0.00 Results: labs reviewed, vital signs reviewed, vi radha signs stable, x-ray personally reviewed, current med profile rev'd Treatment Prophylaxis Treatment Prophylaxis Oxygen: room air Diagnosis, Assessment Plan Consultants: anesthesiology, cardiology, cardiov ascular surgery Code status: full code Plan discussed with: patient, admitting physicia n, consultants, nurse Free Text DxA P Notes Free text DxA P notes: Assessment and Plan: - Multivessel CAD. - CP due to CAD. - Hypomagnesemia. - HX of HTN/HLD and CAD. Plan: CVICU. S/P CABG x 4 (MITCHELL to LAD, saphenous vein to first marginal, saphenous vein to second margina l, saphenous vein to PDA, Amputation of left atrial appendage, Endoscopic vein harvest (left greater saphenous vein) and Posterior pericardiotomy. Monitor Chest tube outpt. Pain meds. Antiemetics. Continue BB, Lipitor and ASA. Follow labs and repalce as needed. Monitor. Anthony Loaiza 08/04/22 1701: Attestations Physician Attestation Agree w/findings plan: Patient seen and examined, I agree with the findings and plans as discussed with and documented by Luther Montiel NP Electronically Signed by Luther Martin NP on at 1353 Electronically Signed by Anthony Loaiza MD on 0 08/04/22 at 1728 RPT #:[id number] END OF REPORT 2022-08-03 13:40:00-00:00 [facility] Neu[facility] Progress Note REPORT#:[id number] REPORT STATUS: Signed DATE:08/03/22 TIME: 1340 PATIENT: MARY DALY UNIT #: [id number] ROOM/BED: [place] [address] : 53 AGE: 66 SEX: M ATTEND: Marcella Loaiza od, MD ADM AUTHOR: Sam Fallon MD * ALL edits or amendments must be made on the [employer]/computer document * Subjective Chief complaint: chest pain HPI: Patient complains of some expected post op pain and has noted some mild change in depth perception. He denies any change when c overing one eye, however. No focal weakness, numbness, change in speech is no gigi. Review of Systems Free Text ROS Notes Free Text ROS Notes: 14 point system reviewed and negative with excep tion of what is in HPI Objective General VS: Last Documented: Result Date Time B/P 113/57 08/03 1000 B/P Mean 78 08/03 1000 Pulse Ox 96 08/03 1000 Temp 37.1 08/03 1000 Pulse 62 08/03 1000 Resp 15 08/03 1000 O2 Delivery High flow nasal cannula 08/03 0751 O2 Flow Rate 3 08/03 0751 PATIENT WEIGHT: Weight (lb): 200 Weight (oz): 13.46 Weight (kg): 90.718 Medications Current Home Medications ATORVASTATIN (LIPITOR) 10 MG PO DAILY CIPROFLOXACIN (CIPRO) 500 MG PO DAILY PRN DIVERT ICULITIS CLOPIDOGREL (PLAVIX) 75 MG PO DAILY metroNIDAZOLE (FLAGYL) 500 MG PO TID PRN DIVERTI CULITIS NEBIVOLOL (BYSTOLIC) 20 MG PO BID OMEPRAZOLE ER (PriLOSEC) 40 MG PO DAILY PRN ACID REFLUX predniSONE 1 MG PO TID SILDENAFIL (VIAGRA) 100 MG PO DAILY PRN PRN ED SODIUM FLUORIDE (PREVIDENT 5000 1.1% DENTAL) 1 A PPLIC TOPICAL DAILY ASPIRIN 81 MG PO DAILY POTASSIUM GLUCONATE 1 TAB PO DAILY CALCIUM CARBONATE (CALTRATE 600 MG) 600 MG PO DA SHIMON CHOLECALCIFEROL (VITAMIN D3) (VITAMIN D3) 1,000 UNITS PO DAILY ACETAMINOPHEN (TYLENOL) 500 MG PO Q4H PRN PRN PA IN IBUPROFEN (ADVIL) 200 MG PO Q6H PRN PRN PAIN FAMOTIDINE (PEPCID) 20 MG PO DAILY amLODIPine (NORVASC) 10 MG PO DAILY LOSARTAN (COZAAR) 50 MG PO DAILY Active Meds + DC'd Last 24 Hrs Ipratropium [place] (ATROVENT) 500 MCG RTQ2H PRN PRN INH Cyanocobalamin (Vitamin B-12 500 mcg tab) 500 MC G DAILY PO Ferrous Sulfate (FERROUS SULFATE) 325 MG DAILY P O Bisacodyl (DULCOLAX) 10 MG ONCE PRN RECTAL Magnesium Hydroxide (MILK OF MAGNESIA) 30 ML ONC E PRN PO Atorvastatin Calcium (LIPITOR) 40 MG 2100 PO Clopidogrel Bisulfate (Plavix) 75 MG DAILY PO Polyethylene Glycol (MIRALAX) 17 GM DAILY PO Ipratropium [place] (ATROVENT) 500 MCG RTQ6H PRN PRN INH Pantoprazole (PROTONIX) 40 MG DAILY@0600 PO Docusate Sodium (COLACE) 100 MG BID PO Gabapentin (NEURONTIN) 200 MG BID PO Metoprolol Tartrate (LOPRESSOR) 12.5 MG Q12HR PO Sennosides (Senna Lax 8.6 MG TABLET) 17.2 MG BED TIME PO Aspirin (ASPIRIN) 81 MG DAILY PO Ipratropium [place] (ATROVENT) 500 MCG RTQ4H INH Amiodarone HCl (CORDARONE) 200 MG TID PO Acetaminophen (TYLENOL) 650 MG Q4H PRN PRN PO Acetaminophen (TYLENOL) 650 MG Q4H PRN PRN RECTA L Albumin Human (ALBUMINAR 25%) 25 GM ASDIR PRN IV (DC) Calcium Chloride (CALCIUM CHLORIDE) 1 GM ASDIR P RN IV Cefazolin Sodium (KEFZOL OR ANCEF) 6 GM ONCE ONE IV (DC) Sodium Chloride (SODIUM CHLORIDE 0.9%) 500 ML Dextrose/Water (DEXTROSE 10% IN WATER) 125 ML DIR PRN IV (CKD) Dextrose/Water (DEXTROSE 10% IN WATER) 250 ML DIR PRN IV (CKD) Epinephrine (ADRENALIN CHLORIDE) 4 MG ASDIR IV Dextrose/Water (DEXTROSE 5% WATER) 246 ML Glucagon (GLUCAGON) 1 MG ASDIR PRN IM Insulin Human Regular (HumuLIN R) 100 UNIT ASDIR IV (CKD) Sodium Chloride (SODIUM CHLORIDE 0.9%) 99 ML Magnesium Sulfate (MAGNESIUM SULFATE 4GM/SWFI 10 0ML) 100 ML ASDIR PRN IV Magnesium Sulfate (MAGNESIUM SULFATE 2GM/SWFI 50 ML) 50 ML ASDIR PRN IV Magnesium Sulfate/Dextrose (MAGNESIUM SULFATE 1G M/D5W 100ML) 100 ML ASDIR PRN IV Nitroglycerin/Dextrose (NITROGLYCERIN 50,000MCG/ D5W 250ML) 250 ML ASDIR IV Norepinephrine Bitartrate (NOREPINEPHRINE 8 MG/N S 250 ML) 250 ML TITRATE IV Ondansetron HCl (ZOFRAN) 4 MG Q6H PRN PRN IV Oxycodone HCl (ROXICODONE) 5 MG Q4H PRN PRN PO Oxycodone HCl (ROXICODONE) 10 MG Q4H PRN PRN PO Potassium Chloride (KCL 20MEQ/SWFI 100ML) 100 ML ASDIR PRN IV Sodium Bicarbonate (SODIUM BICARBONATE) 50 MEQ A SDIR PRN IV Sodium Chloride (SODIUM CHLORIDE 0.9%) 1,000 ML .Q20H IV Sodium Chloride (SODIUM CHLORIDE 0.9%) 250 ML Q2 4H IV Prednisone (predniSONE) 2 MG C BK PO Physical Exam Neuro comment: GEN: NAD, Calm and Cooperative HEENT: NC/AT, Anicteric Sclera CV: Brisk Cap Refill/Palpabl e peripheral pulses, chest tube, sternotomy dressing RESP: Chest Expansion is symmetric, non-labored breathing Neuro Exam: Mental Status: A, A, O x4, cooperative, good fun d of knowledge Naming, comprehension, repetition intact. Follow simple and 3-step verbal commands Language: Fluency intact, no aphasia or dysarthr ia Coordination: Normal Finger to nose exam, No dys metria or tremor Cranial Nerves: II: Pupils equal and symmetric, Brisk and reacti ve to light bilaterally III, IV, : EOM intact, No gaze preference, No visual field deficit, No nystagmus V, VII: Normal Sensation to V1, V2, V3 distribut ion bilaterally, Normal facial expression, No facial paresis or Nasolabial fold flattening. VIII: Hearing is intact to speech IX, X: Soft palate elevates normally, Uvula to t he midline XI, XII: Normal strength to SCM bilaterally. Ton alejandro protrudes to the midline Motor: symmetric flexor and extensor strength th roughout all 4 ext. AG wo drift. Sensory: Normal Sensation to Light touch, Pinpri ck, Temperature, in all extremities Plantar Responses: Flexor bilaterally Diagnosis, Assessment Plan Free Text A P: This is a 66-year-old male with a past medical h istory of hypertension, hyperlipidemia, diverticulitis, CA, gout, tempor al arteritis and CAD who was admitted to [facility] on July 28 electively for a lef t heart cath. Neuro exam demonstrates no focal deficits. Impression: Multivessel coronary artery disease H/O Temporal Arteritis Prior CA with PCI Hypertension Plan: - patient is s/p CABG. No new deficits. Neurolog y will sign off at this time. Electronically Signed by Sam Fallon MD 06/13/23 at 1754 RPT #:[id number] END OF REPORT 2022-08-03 08:16:00-00:00 [id number] [address] PATIENT NAME: MARY DALY ADMIT DATE: 07/30/22 ACCOUNT NO: [id number] [place] [facility] [place] AGE: 66 REPORT TYPE: CARDIAC CATHETERIZATION REPORT SEX: M ADMITTING PHYSICIAN:Anthony Loaiza MD ATTENDING PHYSICIAN:Anthony Loaiza MD PROCEDURE DATE: PROCEDURE PERFORMED: 1. Selective coronary angiogram. 2. Balloon angioplasty of mid LAD severe stenosi s. 3. Failed PCI of mid LAD stenosis. INDICATIONS: Severe coronary artery disease with active chest pain. ACCESS: Right radial artery, a 6-Indian closed w ith TR band. COMPLICATIONS: None. BLEEDING: Less than 20 mL TOTAL SEDATION TIME: Was 45 minutes. DESCRIPTION OF PROCEDURE: Af ter risks, benefits and alternatives were explained to the patient, the patient agreed to pr oceed and signed informed consent. The patient was brought into [facility] catheterization laboratory, prepped and draped in sterile fashion and then I accessed the radia l artery using pediatric micropuncture kit, placed a 6-Indian slender sheath and took a 5-Indian [place] 4 catheter into the aortic tj t, engaged the left main and right coronary artery, took standard views and then I took a 6-Indian X B 3.5 guide into the aortic root, over a J wire and engaged the left main ga ve systemic heparin to assure ACT level above 250, then I took a Runthrough wire into the LAD passing the mid LAD severe stenosis and then tried to send a 2.0 balloon would not go, and a 1.0 balloon, went through, did angioplasty; however, could not pass any further balloons so then all balloons were removed. Wire was removed and decided to consult CT surgery for bypass surgery and then I removed the guide and the sheath and placed TR band with good hemostasis. FINDINGS: 1. Left main: Large and normal. 2. LAD proximal 80% to 90%, mid 99% and then lum inal irregularities. Diagonal branch appears to be normal. 3. Left circumflex proximal 80% and OM1 has mid 50%. 4. RCA is a CMO & PRESIDENT proximally with auto collaterals and ADEN 1 flow. CONCLUSION: Severe coronary artery disease, mult ivessel. PLAN: Consult CT surgery for bypass due to the d ifficulty of intervention. PATIENT NAME: MARY DALY 2 Dictated By: Sam Price MD Date Dictated: 08/03/2022 08:16:37 Date Transcribed: 08/03/2022 09:11:08 SR/SVR Receipt ID: [id number] Authenticated by Sam Price MD On 08/31/2022 10:56:05 AM Electronically Signed by Sam Price MD on at 1056 PATIENT NAME: MARY DALY 80 2022-08-03 08:05:00-00:00 [facility] Critical Care Progress Note REPORT#:[id number] REPORT STATUS: Signed DATE:08/03/22 TIME: 08 PATIENT: MARY DALY UNIT #: [id number] ROOM/BED: [place] [id number] : 53 AGE: 66 SEX: M ATTEND: Marcella Loaiza od, MD ADM AUTHOR: Sterling Hidalgo MD * ALL edits or amendments must be made on the [employer]/computer document * Subjective Chief complaint: Chest pain Exertional dyspnea HPI: Patient seen and discussed d uring MDR this morning in CVICU room #2207. Patient is postop day 1 after CABG x4. Complains of ches t pain, dyspnea this morning. Received ipratropium nebulizer without a ny relief. Has significant acid reflux symptoms with heartburn and dyspepsia. Patient w ill be started on IV Protonix 40 mg every 12 hours. His arterial line and [place] catheter will be discontinued. Chest tubes an d central venous catheter are going to be retained. Hemoglobin is 8.7 g/dL. Patient is tolerating o ral diet. He is ambulating with physical therapy. Latest blood gas shows a pH of 7.39, PCO2 of 39 mmHg, PO2 of 78 mmHg and bicarbonate of 24 mmo l with base excess at -0.6. Chest tube output is 200 mL and 190 mL respectively in the last 12-hour shift. Urine output is adequate at 1250 mL in the last 12-troy r shift. Urine output dropped to 20 mL/h and responded to albumin infusion. Vi radha signs are stable with a heart rate of 63, blood pressure 123/48 mmHg and pulse ox 98% on nasal cannula oxygen that is being titrated. On 08/02/2022, patient was brought to the CVICU r oom #2207 status post CABG x5 and ligation of left atrial appendage, extubated in the OR, on epinephrine at 4 mcg and norepinephrine at 2 mcg. Patient was a g rade 1 view easy intubation with 8.0 ET tube. Received rocuronium and etomid ate for RSI. EF 55%. PA pressures 24 mmHg and cardiac index 2.2-2.6. Pat ient received intravenous calcium and magnesium intraoperatively. Had 600 mL of urine output and 1 L of crystalloids were given. Patient receive d 720 mL of Cell Saver. No products or autologous transfusion was performed. Postop hem oglobin was 9.0 g/dL and ACT was 107. Patient is on insulin at 2 units/h and blood glucose is 180 mg/dL. Patient was on chronic prednisone therapy with p rednisone 3 mg p.o. daily for temporal arteritis since 2017. And received hydr ocortisone 100 mg IV x1 dose. He is able to move all 4 extremities and follows commands. Left pleural output is 50 mL and mediastinal output is 35 mL. Patien t has bilaterally symmetrical and equal pupils on both teresita es. He received parasternal block for pain control. Vital signs are stable with a heart rate of 80 sinus rhythm, blood pressure 128 /57 mmHg, pulse ox 96% on facemask and PA pressu res 28/12 mmHg. He is awake, interactive, following commands and moving all 4 extremities. Patient is full code. Mary Daly is a 66-year gentleman with past med ical history significant for coronary artery disease stat us post PCI in the past, with most recent in July 07, 2022, history of temporal arteritis on chronic p rednisone since 2016, diverticulitis, gout, hypertension, hyperlipidem ia. Strong family history of CAD. Has history of diabetes. He present ed with exertional shortness of breath with occasional chest pain over the past several weeks. Cardiac work-up and left heart cath revealed mul tivessel coronary disease. CT surgery was consulted for CABG evaluation and patient underwent surger y on 08/02/2022. Patient reports: No: abdominal pain, diarrhea, fever, shortness o f breath, vomiting. Nursing reports: No: diarrhea, fever, shortness of breath, vomiti ng. Review of Systems Constitutional: Denies: fatigue, fever, generalized weakness. Skin: Denies: diaphoresis, ecchymosis. Allergy/Immun: Denies: anaphylaxis, hives. Eyes: Denies: redness, discharge. ENT: Denies: nose bleeding, throat swelling, tongue s welling. Respiratory: Reports: PETERSEN (dyspnea on exertion), SOB. Denies: hemoptysis, wheezing. Cardiovascular: Denies: PETERSEN (dyspnea on exertion), edema. GI: Denies: hematemesis, hematochezia, nausea, vomit ing. : Denies: hematuria, nocturia. Heme: Denies: bleeding, bruising. Endocrine: Denies: polydipsia, polyphagia. Neuro: Denies: confusion, dizziness, numbness, seizure. Psych: Denies: agitation, anxiety, insomnia. Objective General VS/I O Last Documented: Result Date Time B/P 114/68 08/03 0700 B/P Mean 84 08/03 0700 Pulse Ox 94 08/03 0700 Temp 37.6 08/03 0700 Pulse 74 08/03 0700 Resp 26 08/03 0700 O2 Delivery Nasal cannula 08/03 0303 O2 Flow Rate 2 08/03 0303 24 hour I O ending at 0700: 08/03 0700 08/02 1900 Intake Total 1803.00 1633.50 Output Total 1435 1835 Balance 368.00 -201.50 Intake, IV 1303.00 1633.50 Intake, Oral 500 Output, Chest 380 355 Tube Drainage Output, Urine 1055 1480 Patient 91.1 kg Weight Weight Bed scale Measurement Method PATIENT WEIGHT: Weight (lb): 200 Weight (oz): 13.46 Weight (kg): 91.100 Medications: Active Meds + DC'd Last 24 Hrs Ipratropium [place] (ATROVENT) 500 MCG RTQ2H PRN PRN INH Cyanocobalamin (Vitamin B-12 500 mcg tab) 500 MC G DAILY PO Ferrous Sulfate (FERROUS SULFATE) 325 MG DAILY P O Bisacodyl (DULCOLAX) 10 MG ONCE PRN RECTAL Magnesium Hydroxide (MILK OF MAGNESIA) 30 ML ONC E PRN PO Atorvastatin Calcium (LIPITOR) 40 MG 2100 PO Clopidogrel Bisulfate (Plavix) 75 MG DAILY PO Polyethylene Glycol (MIRALAX) 17 GM DAILY PO Ipratropium [place] (ATROVENT) 500 MCG RTQ6H PRN PRN INH Pantoprazole (PROTONIX) 40 MG DAILY@0600 PO Docusate Sodium (COLACE) 100 MG BID PO Gabapentin (NEURONTIN) 200 MG BID PO Metoprolol Tartrate (LOPRESSOR) 12.5 MG Q12HR PO Sennosides (Senna Lax 8.6 MG TABLET) 17.2 MG BED TIME PO Aspirin (ASPIRIN) 81 MG DAILY PO Ipratropium [place] (ATROVENT) 500 MCG RTQ4H INH Amiodarone HCl (CORDARONE) 200 MG TID PO Sugammadex Sodium (BRIDION) 0 .STK-MED ONE IV (D C) Mupirocin (BACTROBAN 2% 22 GM OINTMENT) 1 APPLIC BID NASAL (DC) Acetaminophen (TYLENOL) 650 MG Q4H PRN PRN PO Acetaminophen (TYLENOL) 650 MG Q4H PRN PRN RECTA L Albumin Human (ALBUMINAR 25%) 25 GM ASDIR PRN IV Calcium Chloride (CALCIUM CHLORIDE) 1 GM ASDIR P RN IV Cefazolin Sodium (KEFZOL OR ANCEF) 6 GM ONCE ONE IV (CKD) Sodium Chloride (SODIUM CHLORIDE 0.9%) 500 ML Dextrose/Water (DEXTROSE 10% IN WATER) 125 ML DIR PRN IV (CKD) Dextrose/Water (DEXTROSE 10% IN WATER) 250 ML DIR PRN IV (CKD) Epinephrine (ADRENALIN CHLORIDE) 4 MG ASDIR IV Dextrose/Water (DEXTROSE 5% WATER) 246 ML Glucagon (GLUCAGON) 1 MG ASDIR PRN IM Insulin Human Regular (HumuLIN R) 100 UNIT ASDIR IV (CKD) Sodium Chloride (SODIUM CHLORIDE 0.9%) 99 ML Magnesium Sulfate (MAGNESIUM SULFATE 4GM/SWFI 10 0ML) 100 ML ASDIR PRN IV Magnesium Sulfate (MAGNESIUM SULFATE 2GM/SWFI 50 ML) 50 ML ASDIR PRN IV Magnesium Sulfate/Dextrose (MAGNESIUM SULFATE 1G M/D5W 100ML) 100 ML ASDIR PRN IV Nitroglycerin/Dextrose (NITROGLYCERIN 50,000MCG/ D5W 250ML) 250 ML ASDIR IV Norepinephrine Bitartrate (NOREPINEPHRINE 8 MG/N S 250 ML) 250 ML TITRATE IV Ondansetron HCl (ZOFRAN) 4 MG Q6H PRN PRN IV Oxycodone HCl (ROXICODONE) 5 MG Q4H PRN PRN PO Oxycodone HCl (ROXICODONE) 10 MG Q4H PRN PRN PO Potassium Chloride (KCL 20MEQ/SWFI 100ML) 100 ML ASDIR PRN IV Sodium Bicarbonate (SODIUM BICARBONATE) 50 MEQ A SDIR PRN IV Sodium Chloride (SODIUM CHLORIDE 0.9%) 1,000 ML .Q20H IV Sodium Chloride (SODIUM CHLORIDE 0.9%) 250 ML Q2 4H IV Antithrombin III (Human) (Thrombate III) 0 .STK- MED ONE IV (DC) Heparin Sodium (HEPARIN SODIUM) 0 .STK-MED ONE . ROUTE (DC) Hydrocortisone Sodium Succinate (Solu-CORTEF) 10 0 MG PREOP ONCALL IV (DC ) Cefazolin Sodium (KEFZOL OR ANCEF) 0 .STK-MED ON E .ROUTE (DC) Sodium Chloride (SODIUM CHLORIDE 0.9%) 250 ML .S TK-MED ONE IV (DC) Vancomycin HCl (Vancomycin 1,250 mg Inj (B2)) 0 .STK-MED ONE IV (DC) Lidocaine HCl (XYLOCAINE) 0 .STK-MED ONE .ROUTE (DC) Dexamethasone Sodium Phosphate (DECADRON) 0 .STK -MED ONE .ROUTE (DC) Esmolol HCl (BREVIBLOC) 0 .STK-MED ONE IV (DC) Etomidate (AMIDATE) 0 .STK-MED ONE IV (DC) Fentanyl Citrate (SUBLIMAZE) 0 .STK-MED ONE IV ( DC) Lidocaine HCl (XYLOCAINE) 0 .STK-MED ONE .ROUTE (DC) Ondansetron HCl (ZOFRAN) 0 .STK-MED ONE .ROUTE ( DC) Rocuronium [place] (ZEMURON) 0 .STK-MED ONE IV ( DC) Epinephrine HCl (EPINEPHrine 4 mg/D5W 250 mL) 25 0 ML .STK-MED ONE IV (DC ) Insulin Human Regular (HumuLIN R 100 UNITS/NS 10 0ML) 100 ML .STK-MED ONE IV (DC) Norepinephrine Bitartrate (NOREPINEPHRINE 8 MG/N S 250 ML) 250 ML .STK-MED ONE IV (DC) Aminocaproic Acid (AMICAR) 0 .STK-MED ONE IV (DC ) Calcium Chloride (CALCIUM CHLORIDE) 0 .STK-MED O NE IV (DC) Heparin Sodium (HEPARIN SODIUM) 0 .STK-MED ONE . ROUTE (DC) Nitroglycerin/Dextrose (NITROGLYCERIN 50,000MCG/ D5W 250ML) 250 ML .STK-MED ONE IV (DC) Protamine Sulfate (PROTAMINE SULFATE) 0 .STK-MED ONE IV (DC) Magnesium Sulfate (MAGNESIUM SULFATE) 0 .STK-ME D ONE .ROUTE (DC) Ropivacaine (NAROPIN 0.5% 150 MG/30mL) 0 .STK-ME D ONE .ROUTE (DC) Albumin Human (ALBUMINAR-25%) 100 ML .STK-MED ON E IV (DC) Heparin Sodium (HEPARIN SODIUM) 0 .STK-MED ONE . ROUTE (DC) Sodium Chloride (SODIUM CHLORIDE 0.9%) 100 ML .S TK-MED ONE IV (DC) Lidocaine HCl (XYLOCAINE IV) 0 .STK-MED ONE IV (DC) Magnesium Sulfate (MAGNESIUM SULFATE) 0 .STK-MED ONE IV (DC) Sodium Bicarbonate (SODIUM BICARBONATE) 0 .STK-M ED ONE IV (DC) Phenylephrine HCl (MARK-SYNEPHRINE 10MG/ML AMP) 0 .STK-MED ONE .ROUTE (DC ) Acetaminophen (TYLENOL EXTRA STRENGTH) 1,000 MG PREOP ONCALL PO (DC) Cefazolin Sodium (KEFZOL OR ANCEF) 2 GM PREOP WINTER INTERN IV (DC) Gabapentin (NEURONTIN) 200 MG PREOP ONCALL PO (D C) Sodium Chloride (SODIUM CHLORIDE) 20 ML ASDIR IV (DC) Vancomycin HCl (VANCOMYCIN HCL) 1,250 MG PREOP O NCALL IV (DC) Sodium Chloride (SODIUM CHLORIDE 0.9%) 250 ML Verapamil HCl (ISOPTIN) 16.6 MG .Q24H ONE IV (DC ) Heparin Sodium (Porcine) (HEPARIN SODIUM) 1,660 UNIT Sodium Bicarbonate (SODIUM BICARBONATE) 0.7 ML Nitroglycerin/Dextrose (NITROGLYCERIN 50MG/D5W 250ML) 8.3 MG Lactated Ringer's (LACTATED RINGERS) 949.5 ML Nebivolol (BYSTOLIC) 10 MG BEDTIME PO (DC) Nitroglycerin/Dextrose (NITROGLYCERIN 50,000MCG/ D5W 250ML) 250 ML ASDIR IV (DC) Heparin Sodium (HEPARIN 5000 UNITS/ML) 0 ASDIR P RN IV (DC) Heparin Sodium (Porcine) (HEPARIN 25,000 UNITS/ 1/2NS 500ML) 500 ML ASDIR IV (DC) Mupirocin (BACTROBAN 2% 22 GM OINTMENT) 1 APPLIC BID NASAL (DC) Carboxymethylcellulose Sodium (REFRESH TEARS) 1 DROP QID PRN EACH EYE ( DC) Docusate Sodium (COLACE) 100 MG BID PO (DC) Ranolazine (RANEXA 500MG TAB) 500 MG Q12HR PO (D C) Al Hydrox/Mg Hydrox/Simethicone (MYLANTA) 30 ML Q4H PRN PRN PO (DC) Hydralazine HCl (APRESOLINE) 50 MG Q6H PRN PRN P O (DC) Amlodipine Besylate (NORVASC) 10 MG DAILY PO (DC ) Aspirin (ASPIRIN) 81 MG DAILY PO (DC) Famotidine (PEPCID) 20 MG DAILY PO (DC) Losartan Potassium (COZAAR) 50 MG DAILY PO (DC) Prednisone (predniSONE) 2 MG C BK PO Atorvastatin Calcium (LIPITOR) 10 MG BEDTIME PO (DC) Prednisone (predniSONE) 1 MG BEDTIME PO (DC) Acetaminophen (TYLENOL EXTRA STRENGTH) 500 MG Q4 H PRN PRN PO (DC) Atropine Sulfate (ATROPINE SULFATE 0.1MG/ML SYR) 0.5 MG ASDIR PRN IV (DC ) Sodium Chloride (SODIUM CHLORIDE 0.9%) 500 ML DIR PRN IV (DC) Post-op: day 1 Status post: CABG times 4 Physical Exam General appearance: alert, awake, oriented, no a cute distress, pleasant, conversational, mental status normal, no respira tory distress Head/eyes: atraumatic, clear cornea, normocephal ic, PERRL ENT: moist mucosal membranes, normal nose, jessica l sinus Neck: no JVD, no masses or swelling Cardiovascular: normal capillary refill, normal heart sounds, regular rate and rhythm Respiratory: aerating well, clear to auscultatio n, symmetric expansion, no distress Abdomen: soft, non-tender, no distention, no gua rding, no rebound Genitourinary: urinary catheter, no bladder dist ention Extremities: moves all, no clubbing, no cyanosis , no edema Neuro/INSURANCE WRITER: no motor deficits Wound/incision: Location: sternal wound Psychiatry: normal affect, normal mood, no hallu cinations Results Findings/data: Laboratory Tests 08/03 08/03 08/03 08/02 0701 0406 0228 2044 Blood Gas Puncture Site Art Line [place] Anna Marie Art Line Art L ine O2 Saturation (90 - 100 %) 96.1 95.4 96.1 ABG pH (7.35 - 7.45) 7.398 7.393 7.378 ABG pCO2 (35.0 - 45 mmHg) 36.4 39.9 41.7 ABG pO2 (80 - 100.0 mmHg) 83.2 78.2 L 83.4 ABG HCO3 (22.0 - 26.0 MMOL/L) 22.4 24.3 24.6 ABG Total CO2 23.5 25.6 25.9 ABG Base Excess (-4.0 - 4.0 MMOL/L) -2.4 -0.6 - 0.6 ABG Hematocrit (37.5 - 50.7 %) 27 L 26 L 26 L 2 6 L ABG Hemoglobin (12.5 - 16.9 G/DL) 9.1 L 8.7 L 8 .7 L 8.8 L VBG pH (7.33 - 7.45) 7.365 VBG pCO2 (43 - 47 mmHg) 43.0 VBG pO2 (10 - 50 mmHG) 35.6 VBG HCO3 (22 - 27 MMOL/L) 24.5 POC VBG Total CO2 25.8 VBG O2 Saturation (60 - 80 %) 65.6 VBG Base Excess (-4.0 - 4.0 MMOL/L) -0.8 VBG Temperature (F) 98.8 Sodium (134 - 147 mmol/L) 141 141 141 140 Potassium (3.4 - 5.0 mmol/L) 4.0 4.2 4.3 4.6 Chloride (100 - 108 mmol/L) 110 H 107 108 108 Ionized Calcium (1.12 - 1.32 MMOL/L) 1.17 1.21 1.21 1.29 Lactic Acid (0.9 - 1.7 mmol/l) 0.9 0.5 L 0.6 L 1.5 Temperature (F) 99.1 98.6 98.2 O2 Delivery Device Cannula Cannula Cannula Leonel annemarie 08/02 1544 1417 1318 Blood Gas Puncture Site [place] O2 Saturation (90 - 100 %) 96.4 99.9 99.9 ABG pH (7.35 - 7.45) 7.300 L 7.391 7.383 ABG pCO2 (35.0 - 45 mmHg) 38.2 36.7 42.0 ABG pO2 (80 - 100.0 mmHg) 93.1 254.6 *H 345.2 * H ABG HCO3 (22.0 - 26.0 MMOL/L) 18.8 L 22.3 25.0 ABG Total CO2 20.0 23.4 26.3 ABG Base Excess (-4.0 - 4.0 MMOL/L) -7.6 L -2. 4 -0.1 ABG Hematocrit (37.5 - 50.7 %) 25 L 33 L 27 L 2 8 L ABG Hemoglobin (12.5 - 16.9 G/DL) 8.6 L 11.1 L 9.0 L 9.5 L VBG pH (7.33 - 7.45) 7.334 VBG pCO2 (43 - 47 mmHg) 45.9 VBG pO2 (10 - 50 mmHG) 38.0 VBG HCO3 (22 - 27 MMOL/L) 24.5 POC VBG Total CO2 25.9 VBG O2 Saturation (60 - 80 %) 68.8 VBG Base Excess (-4.0 - 4.0 MMOL/L) -1.4 VBG Temperature (F) 98.1 Sodium (134 - 147 mmol/L) 141 141 139 135 Potassium (3.4 - 5.0 mmol/L) 4.3 3.4 4.3 5.6 H Chloride (100 - 108 mmol/L) 108 108 105 105 Ionized Calcium (1.12 - 1.32 MMOL/L) 1.34 H 1.1 5 1.26 1.07 L Lactic Acid (0.9 - 1.7 mmol/l) 2.0 H 2.3 H 1.2 O2 Delivery Device Cannula 08/02 08/02 08/02 1243 1208 1035 Blood Gas O2 Saturation (90 - 100 %) 100.0 100.0 100.0 ABG pH (7.35 - 7.45) 7.404 7.338 L 7.361 ABG pCO2 (35.0 - 45 mmHg) 41.3 42.3 42.7 ABG pO2 (80 - 100.0 mmHg) 417.5 *H 453.7 *H 49 4.1 *H ABG HCO3 (22.0 - 26.0 MMOL/L) 25.8 22.8 24.2 ABG Total CO2 27.1 24.1 25.5 ABG Base Excess (-4.0 - 4.0 MMOL/L) 1.0 -3.0 -1 .4 ABG Hematocrit (37.5 - 50.7 %) 28 L 38 47 ABG Hemoglobin (12.5 - 16.9 G/DL) 9.7 L 13.1 16 .0 Sodium (134 - 147 mmol/L) 137 137 141 Potassium (3.4 - 5.0 mmol/L) 5.1 H 4.0 4.0 Chloride (100 - 108 mmol/L) 104 104 104 Ionized Calcium (1.12 - 1.32 MMOL/L) 1.03 L 1.1 5 1.22 Lactic Acid (0.9 - 1.7 mmol/l) 0.6 L < 0.3 L < 0.3 L Laboratory Tests 08/03 08/03 08/03 08/03 08/03 0701 0406 0230 0228 0010 Chemistry Sodium (134 - 147 mEq/L) 141 Potassium (3.4 - 5.0 mEq/L) 4.3 Chloride (100 - 108 mEq/L) 110 H Carbon Dioxide (21 - 33 mEq/l) 25 Anion Gap (0 - 20) 10 BUN (7 - 18 mg/dL) 10 Creatinine (0.6 - 1.3 mg/dL) 0.8 POC Creatinine (0.8 - 1.3 mg/dL) 0.8 0.7 L 0.8 Glomerular Filtr Rate (80 - 90) 96.4 H Glucose (70 - 110 mg/dL) 97 POC Glucose (70 - 110 MG/DL) 120 H POC Glucose (mg/dL) (70 - 110 MG/DL) 114 H 104 93 Calcium (8.0 - 10.5 mg/dL) 8.3 Magnesium (1.80 - 2.40 mg/dL) 2.01 Total Bilirubin (0.0 - 1.0 mg/dL) 0.60 Direct Bilirubin (0.0 - 0.30 MG/DL) 0.30 Indirect Bilirubin (MG/DL) 0.30 AST (15 - 37 IUnit/L) 46 H ALT (30 - 65 IUnit/L) 15 L Total Alk Phosphatase (20 - 125 IUnit/L) 33 Total Protein (6.4 - 8.2 g/dL) 5.0 L Albumin (3.4 - 5.0 g/dL) 3.60 08/02 08/02 08/02 08/02 08/02 2207 2047 2045 204 1949 Chemistry Sodium (134 - 147 mEq/L) 141 Potassium (3.4 - 5.0 mEq/L) 4.5 Chloride (100 - 108 mEq/L) 112 H Carbon Dioxide (21 - 33 mEq/l) 24 Anion Gap (0 - 20) 10 BUN (7 - 18 mg/dL) 10 Creatinine (0.6 - 1.3 mg/dL) 0.8 POC Creatinine (0.8 - 1.3 mg/dL) 0.8 0.7 L Glomerular Filtr Rate (80 - 90) 96.4 H Glucose (70 - 110 mg/dL) 156 H POC Glucose (70 - 110 MG/DL) 134 H 143 H POC Glucose (mg/dL) (70 - 110 MG/DL) 147 H 154 H Calcium (8.0 - 10.5 mg/dL) 8.1 Magnesium (1.80 - 2.40 mg/dL) 2.22 08/02 08/02 08/02 08/02 08/02 1849 1544 1523 1417 1318 Chemistry Sodium (134 - 147 mEq/L) 140 Potassium (3.4 - 5.0 mEq/L) 3.7 Chloride (100 - 108 mEq/L) 109 H Carbon Dioxide (21 - 33 mEq/l) 21 Anion Gap (0 - 20) 14 BUN (7 - 18 mg/dL) 12 Creatinine (0.6 - 1.3 mg/dL) 1.0 POC Creatinine (0.8 - 1.3 mg/dL) 0.9 0.8 0.8 Glomerular Filtr Rate (80 - 90) 82.0 Glucose (70 - 110 mg/dL) 205 H POC Glucose (70 - 110 MG/DL) 109 POC Glucose (mg/dL) (70 - 110 MG/DL) 187 H 187 H 184 H Calcium (8.0 - 10.5 mg/dL) 7.7 L Magnesium (1.80 - 2.40 mg/dL) 2.25 08/02 08/02 08/02 1243 1208 1035 Chemistry POC Creatinine (0.8 - 1.3 mg/dL) 0.7 L 0.7 L 0 .8 POC Glucose (mg/dL) (70 - 110 MG/DL) 142 H 135 H 158 H Laboratory Tests 08/02 08/02 08/02 08/02 08/02 1523 1419 1320 1244 1223 Coagulation INR (0.8 - 1.2) 1.3 H PTT ([place]) (25.0 - 39.5 Seconds) 27.4 PT Patient/Control Mix (9.3 - 12.9 14.4 H SECONDS) Activated Coag Time (74 - 137 SEC) 107 588 H 66 6 H 486 H 08/02 08/02 1210 1035 Coagulation Activated Coag Time (74 - 137 SEC) 407 H 137 Laboratory Tests 08/03 08/02 08/02 0230 2047 1522 Hematology WBC (4.5 - 11.0 x10 3/uL) 12.7 H 14.0 H 27.2 H RBC (4.00 - 5.60 x10 6/uL) 2.73 L 2.94 L 3.78 L Hgb (12.5 - 16.9 g/dL) 8.7 L 9.4 L 12.3 L Hct (37.5 - 50.7 %) 25.2 L 27.0 L 34.5 L MCV (81.0 - 99.0 fL) 92.3 91.8 91.3 MCH (27.0 - 33.0 pg) 31.9 32.0 32.5 MCHC (33.0 - 37.0 g/dL) 34.5 34.8 35.7 RDW (11.5 - 14.5 %) 13.8 13.6 13.6 Plt Count (150 - 400 x10 3/uL) 114 L 113 L 167 MPV (7.0 - 9.0 fL) 11.4 H 10.9 H 11.0 H Neut % (Auto) (56.0 - 77.0 %) 73.9 80.2 H 76.5 Lymph % (Auto) (14.0 - 32.0 %) 7.6 L 3.4 L 9.7 L Stephenson % (Auto) (4.8 - 9.0 %) 17.9 H 15.9 H 12.3 H Eos % (Auto) (0.3 - 3.7 %) 0.0 L 0.0 L 0.4 Baso % (Auto) (0.0 - 2.0 %) 0.1 0.1 0.3 Neut # (Auto) (2.0 - 7.6 x10 3/uL) 9.38 H 11.24 H 20.85 H Lymph # (Auto) (1.0 - 3.8 x10 3/uL) 0.96 L 0.48 L 2.64 Stephenson # (Auto) (0.1 - 0.8 x10 3/uL) 2.27 H 2.23 H 3.34 H Eos # (Auto) (0.0 - 0.2 x10 3/uL) 0.00 0.00 0.1 0 Baso # (Auto) (0.0 - 0.2 x10 3/uL) 0.01 0.01 0. 07 Abs Immat Gran (auto) (0.00 - 0.03 x10 3/uL) 0. 06 H 0.06 H 0.22 H Add Manual Diff NO NO NO Immature Gran % (0.0 - 2.0 %) 0.5 0.4 0.8 Nucleated RBC % (0 - 0 %) 0.0 0.0 0.0 Nucleated RBCs # (Man) (0.0 - 0.1 x10 3/uL) 0.0 0 0.00 0.00 Laboratory Tests 08/03/22 0230: [Embedded Image Not Available] 08/02/22 2047: [Embedded Image Not Available] 08/02/22 1523: [Embedded Image Not Available] 08/02/22 1522: [Embedded Image Not Available] Microbiology: 08/02 847 NASAL: MSSA Surveillance Screen - ORD 06/11 0848 NASAL: MRSA DNA Surveillance Screen - ORD Radiology data Recent Impressions: RADIOLOGY - XR CHEST 1 V 08/02 1456 Report Impression - Status: SIGNED Entered: 08/02/2022 1505 IMPRESSION: No retained surgical needle is seen. Impression By: Johann Childs M.D. RADIOLOGY - XR CHEST 1 V 08/02 1600 Report Impression - Status: SIGNED Entered: 08/02/2022 1656 IMPRESSION: Postoperative change with vascular congestion an d opacity at the lung base. Impression By: Dorina Mccarthy RADIOLOGY - XR CHEST 1 V 08/03 0637 Report Impression - Status: SIGNED Entered: 08/03/2022 0800 IMPRESSION: Mild worsening left basilar opacities. Impression By: GeronimoSWSerina Diana M.D. Results: labs reviewed, vital signs reviewed, rh ythm personally rev'd, x-ray personally reviewed, current med profile rev'd Diagnosis, Assessment Plan Free text A P: Problem List: Chest pain/Angina Exertional dyspnea Coronary artery disease Status post CABG x5 and ILAA Elective ventilatory dependence for acute pulmon oli insufficiency following major cardiothoracic surgery Acute blood loss anemia cardiogenic shock Hyperglycemia Leukocytosis Assessment and Plan: Patient was brought to the C VICU room #2207 status post CABG x5 and ligation of left atrial appendage, extubated in the OR, on e pinephrine at 4 mcg and norepinephrine at 2 mcg. Pat ient was a grade 1 view easy intubation with 8.0 ET tube. Received rocuronium and etomidate for RSI. EF 55%. PA pressures 24 mmHg and cardiac index 2.2-2.6. Patient received intr avenous calcium and magnesium intraoperatively. Had 600 mL of urine output and 1 L of crystalloids were given. Patient received 720 mL of Cell Saver. No products or autologous transfusion was performed. Postop hemoglobin was 9.0 g/dL and ACT was 107. Patient is on insulin at 2 units/h and b lood glucose is 180 mg/dL. Patient was on chronic prednisone therapy with prednisone 3 mg p.o. daily for temporal arteritis since 2017. And received hydrocortison e 100 mg IV x1 dose. He is able to move all 4 extremities and follo ws commands. Left pleural output is 50 mL and mediastinal output is 35 mL. Patient has bilaterally symmetrical and equal pupils on both sides. He received paraster nal block for pain control. Vital signs are stable with a heart rate of 80 sinus rhythm, blood pressure 128/ 57 mmHg, pulse ox 96% on facemask and PA pressur es 28/12 mmHg. He is awake, interactive, following commands and moving all 4 extremities. Patient is full code. Mary Daly is a 66-year gentleman with past med ical history significant for coronary artery disease stat us post PCI in the past, with most recent in July 07, 2022, history of temporal arteritis on chronic p rednisone since 2017, diverticulitis, gout, hypertension, hyperlipidem ia. Strong family history of CAD. Has history of diabetes. He present ed with exertional shortness of breath with occasional chest pain over the past several weeks. Cardiac work-up and left heart cath revealed mul tivessel coronary disease. CT surgery was consulted for CABG evaluation and patient underwent surger y on 08/02/2022. Postop day 0 after CABG x5 and ILAA No acute events for reported in the OR Patient was easy intubation and induction using rocuronium and etomidate EF 55% PA pressures 24 mm of Hg Cardiac index 2.2 to 2.6 Patient is currently on epin ephrine at 4 mcg and norepinephrine at 2 mcg that is being weaned Blood pressure is stable Patient received 1 L of crystalloid and 720 mL o f Cell Saver No autologous transfusion or products were used Had 600 mL of urine output Chest tube output is minimal at 50 mL in the lef t pleural and 35 mL in the mediastinal chest tubes Patient is able to move all 4 extremities and fo llow command Pain control with parasternal block Patient will be on oral narcotic regimen for javier n control Vital signs are stable with heart rate 80, blood pressure 128/57 mmHg and pulse ox 96% on facemask Follow chest tube output Chest x-ray was personally viewed by me and line s and tubes are in position Patient has been on chronic steroid therapy [facility] e 2016, received stress dose steroids with hydrocortisone 100 mg IV Avoid further steroid dosing unless evidence of adrenal crisis SCDs for DVT prophylaxis Sterling MD Gewn FACP [facility] 08/02/2022 3.57 PM 08/03/2022 Patient seen and discussed d uring MDR this morning in CVICU room #2207. Patient is postop day 1 after CABG x4. Complains of ches t pain, dyspnea this morning. Received ipratropium nebulizer without a ny relief. Has significant acid reflux symptoms with heartburn and dyspepsia. Patient w ill be started on IV Protonix 40 mg every 12 hours. His arterial line and [place] catheter will be discontinued. Chest tubes an d central venous catheter are going to be retained. Hemoglobin is 8.7 g/dL. Patient is tolerating o ral diet. He is ambulating with physical therapy. Latest blood gas shows a pH of 7.39, PCO2 of 39 mmHg, PO2 of 78 mmHg and bicarbonate of 24 mmo l with base excess at -0.6. Chest tube output is 200 mL and 190 mL respectively in the last 12-hour shift. Urine output is adequate at 1250 mL in the last 12-troy r shift. Urine output dropped to 20 mL/h and responded to albumin infusion. Vi radha signs are stable with a heart rate of 63, blood pressure 123/48 mmHg and pulse ox 98% on nasal cannula oxygen that is being titrated. On 08/02/2022, patient was brought to the CVICU r oom #2207 status post CABG x5 and ligation of left atrial appendage, extubated in the OR, on epinephrine at 4 mcg and norepinephrine at 2 mcg. Patient was a g rade 1 view easy intubation with 8.0 ET tube. Received rocuronium and etomid ate for RSI. EF 55%. PA pressures 24 mmHg and cardiac index 2.2-2.6. Pat ient received intravenous calcium and magnesium intraoperatively. Had 600 mL of urine output and 1 L of crystalloids were given. Patient receive d 720 mL of Cell Saver. No products or autologous transfusion was performed. Postop hem oglobin was 9.0 g/dL and ACT was 107. Patient is on insulin at 2 units/h and blood glucose is 180 mg/dL. Patient was on chronic prednisone therapy with p rednisone 3 mg p.o. daily for temporal arteritis since 2017. And received hydr ocortisone 100 mg IV x1 dose. He is able to move all 4 extremities and follows commands. Left pleural output is 50 mL and mediastinal output is 35 mL. Patien t has bilaterally symmetrical and equal pupils on both teresita es. He received parasternal block for pain control. Vital signs are stable with a heart rate of 80 sinus rhythm, blood pressure 128 /57 mmHg, pulse ox 96% on facemask and PA pressu res 28/12 mmHg. He is awake, interactive, following commands and moving all 4 extremities. Patient is full code. Mary Daly is a 66-year gentleman with past med ica history significant for coronary artery disease stat us post PCI in the past, with most recent in July 07, 2022, history of temporal arteritis on chronic p rednisone since 2017, diverticulitis, gout, hypertension, hyperlipidem ia. Strong family history of CAD. Has history of diabetes. He present ed with exertional shortness of breath with occasional chest pain over the past several weeks. Cardiac work-up and left heart cath revealed mul tivessel coronary disease. CT surgery was consulted for CABG evaluation and patient underwent surger y on 08/02/2022. He is postop day 1 after CABG x4 Complains of chest pain and heartburn this more Has significant history of GERD and dyspepsia Patient will be started on Protonix 40 mg IV mazin ry 12 hours Tolerating oral diet Ambulating with physical therapy Generous output from the chest tubes at 200 mL a nd 190 mL respectively Monitor chest tube output Both chest tubes to be retained DC [place] catheter and arterial line Central venous catheter to be retained Patient is off vasopressors Hemoglobin is 8.7 g/dL down from 9.4 g/dL Reactive leukocytosis improving Urine output is 1250 mL in the last 12-hour shif t Urine output declined to 20 mL/h record and resp onded to albumin infusion Patient is awake, interactive, with no focal margaret rological deficit SCDs for DVT prophylaxis Sterling Hidalgo MD [facility] 08/03/2022 11.13 AM Consultants: anesthesiology, cardiology, cardiov ascular surgery Code status: full code Plan discussed with: patient , consultants, nurse, interdisc care team, pharmacy/ pharmacist Critical care time: Minutes: 38 Electronically Signed by Sterling Hidalgo MD on 07/22 05/13 at 1113 RPT #:[id number] END OF REPORT 2022-08-03 07:11:00-00:00 [facility] ([facility]) Cardiology Progress Note REPORT#:[id number] REPORT STATUS: Signed DATE:08/03/22 TIME: 710 PATIENT: MARY DALY UNIT #: [id number] ROOM/BED: [place] [address] : 53 AGE: 66 SEX: M ATTEND: Marcella Loaiza od, MD ADM AUTHOR: Denton Chaparro MD * ALL edits or amendments must be made on the [employer] [facility] document * Subjective Chief complaint: no chest pain today Objective General VS/I O: 24 hour I O ending at 0700: 08/03 0700 08/02 1900 Intake Total 1633.50 Output Total 925 1835 Balance -925 -201.50 Intake, IV 1633.50 Output, Chest 200 355 Tube Drainage Output, Urine 725 1480 Vital Signs: Date Time Temp Pulse Resp B/P B/P Pulse O2 O2 F low FiO2 Mean Ox Delivery Rate 08/03 0303 95 Nasal 2 cannula 08/02 2311 98.6 78 20 113/54 73 95 08/02 2300 108/58 78 / 2300 98.6 77 20 115/56 76 95 / 2230 98.6 79 21 114/59 77 95 / 2200 102/64 78 / 2200 98.6 79 15 113/55 74 95 / 2130 98.6 80 22 119/56 77 96 06/ 2100 98/63 75 06/ 2100 98.4 78 19 120/57 77 96 /2029 98.2 78 20 126/58 79 96 08/03 1999 Nasal 2 cannula 08/02 2000 113/61 81 /1999 98.2 78 28 124/56 78 97 / 1930 98.2 78 29 127/58 79 96 / 1916 96 Nasal 2 cannula 08/02 1900 107/58 77 / 1900 98.1 77 23 117/55 73 96 06/12 1700 97/52 70 06/12 1700 96.4 73 19 121/50 72 99 06/12 1600 120/66 89 06/12 1600 97.0 75 17 149/58 85 99 06/12 1535 97.2 80 18 125/53 80 06/12 1515 99 Simple 15 mask 08/02 0800 52 32 151/85 113 90 PATIENT WEIGHT: Weight (lb): 188 Weight (oz): 0.87 Weight (kg): 85.300 Medications: Active Meds + DC'd Last 24 Hrs Ipratropium [place] (ATROVENT) 500 MCG RTQ2H PRN PRN INH Cyanocobalamin (Vitamin B-12 500 mcg tab) 500 MC G DAILY PO Ferrous Sulfate (FERROUS SULFATE) 325 MG DAILY P O Bisacodyl (DULCOLAX) 10 MG ONCE PRN RECTAL Magnesium Hydroxide (MILK OF MAGNESIA) 30 ML ONC E PRN PO Atorvastatin Calcium (LIPITOR) 40 MG 2100 PO Clopidogrel Bisulfate (Plavix) 75 MG DAILY PO Polyethylene Glycol (MIRALAX) 17 GM DAILY PO Ipratropium [place] (ATROVENT) 500 MCG RTQ6H PRN PRN INH Pantoprazole (PROTONIX) 40 MG DAILY@0600 PO Docusate Sodium (COLACE) 100 MG BID PO Gabapentin (NEURONTIN) 200 MG BID PO Metoprolol Tartrate (LOPRESSOR) 12.5 MG Q12HR PO Sennosides (Senna Lax 8.6 MG TABLET) 17.2 MG BED TIME PO Aspirin (ASPIRIN) 81 MG DAILY PO Ipratropium [place] (ATROVENT) 500 MCG RTQ4H INH Amiodarone HCl (CORDARONE) 200 MG TID PO Sugammadex Sodium (BRIDION) 0 .STK-MED ONE IV (D C) Mupirocin (BACTROBAN 2% 22 GM OINTMENT) 1 APPLIC BID NASAL (DC) Acetaminophen (TYLENOL) 650 MG Q4H PRN PRN PO Acetaminophen (TYLENOL) 650 MG Q4H PRN PRN RECTA L Albumin Human (ALBUMINAR 25%) 25 GM ASDIR PRN IV Calcium Chloride (CALCIUM CHLORIDE) 1 GM ASDIR P RN IV Cefazolin Sodium (KEFZOL OR ANCEF) 6 GM ONCE ONE IV (CKD) Sodium Chloride (SODIUM CHLORIDE 0.9%) 500 ML Dextrose/Water (DEXTROSE 10% IN WATER) 125 ML DIR PRN IV (CKD) Dextrose/Water (DEXTROSE 10% IN WATER) 250 ML DIR PRN IV (CKD) Epinephrine (ADRENALIN CHLORIDE) 4 MG ASDIR IV Dextrose/Water (DEXTROSE 5% WATER) 246 ML Glucagon (GLUCAGON) 1 MG ASDIR PRN IM Insulin Human Regular (HumuLIN R) 100 UNIT ASDIR IV (CKD) Sodium Chloride (SODIUM CHLORIDE 0.9%) 99 ML Magnesium Sulfate (MAGNESIUM SULFATE 4GM/SWFI 10 0ML) 100 ML ASDIR PRN IV Magnesium Sulfate (MAGNESIUM SULFATE 2GM/SWFI 50 ML) 50 ML ASDIR PRN IV Magnesium Sulfate/Dextrose (MAGNESIUM SULFATE 1G M/D5W 100ML) 100 ML ASDIR PRN IV Nitroglycerin/Dextrose (NITROGLYCERIN 50,000MCG/ D5W 250ML) 250 ML ASDIR IV Norepinephrine Bitartrate (NOREPINEPHRINE 8 MG/N S 250 ML) 250 ML TITRATE IV Ondansetron HCl (ZOFRAN) 4 MG Q6H PRN PRN IV Oxycodone HCl (ROXICODONE) 5 MG Q4H PRN PRN PO Oxycodone HCl (ROXICODONE) 10 MG Q4H PRN PRN PO Potassium Chloride (KCL 20MEQ/SWFI 100ML) 100 ML ASDIR PRN IV Sodium Bicarbonate (SODIUM BICARBONATE) 50 MEQ A SDIR PRN IV Sodium Chloride (SODIUM CHLORIDE 0.9%) 1,000 ML .Q20H IV Sodium Chloride (SODIUM CHLORIDE 0.9%) 250 ML Q2 4H IV Antithrombin III (Human) (Thrombate III) 0 .STK- MED ONE IV (DC) Heparin Sodium (HEPARIN SODIUM) 0 .STK-MED ONE . ROUTE (DC) Hydrocortisone Sodium Succinate (Solu-CORTEF) 10 0 MG PREOP ONCALL IV (DC ) Cefazolin Sodium (KEFZOL OR ANCEF) 0 .STK-MED ON E .ROUTE (DC) Sodium Chloride (SODIUM CHLORIDE 0.9%) 250 ML .S TK-MED ONE IV (DC) Vancomycin HCl (Vancomycin 1,250 mg Inj (B2)) 0 .STK-MED ONE IV (DC) Lidocaine HCl (XYLOCAINE) 0 .STK-MED ONE .ROUTE (DC) Dexamethasone Sodium Phosphate (DECADRON) 0 .STK -MED ONE .ROUTE (DC) Esmolol HCl (BREVIBLOC) 0 .STK-MED ONE IV (DC) Etomidate (AMIDATE) 0 .STK-MED ONE IV (DC) Fentanyl Citrate (SUBLIMAZE) 0 .STK-MED ONE IV ( DC) Lidocaine HCl (XYLOCAINE) 0 .STK-MED ONE .ROUTE (DC) Ondansetron HCl (ZOFRAN) 0 .STK-MED ONE .ROUTE ( DC) Rocuronium [place] (ZEMURON) 0 .STK-MED ONE IV ( DC) Epinephrine HCl (EPINEPHrine 4 mg/D5W 250 mL) 25 0 ML .STK-MED ONE IV (DC ) Insulin Human Regular (HumuLIN R 100 UNITS/NS 10 0ML) 100 ML .STK-MED ONE IV (DC) Norepinephrine Bitartrate (NOREPINEPHRINE 8 MG/N S 250 ML) 250 ML .STK-MED ONE IV (DC) Aminocaproic Acid (AMICAR) 0 .STK-MED ONE IV (DC ) Calcium Chloride (CALCIUM CHLORIDE) 0 .STK-MED O NE IV (DC) Heparin Sodium (HEPARIN SODIUM) 0 .STK-MED ONE . ROUTE (DC) Nitroglycerin/Dextrose (NITROGLYCERIN 50,000MCG/ D5W 250ML) 250 ML .STK-MED ONE IV (DC) Protamine Sulfate (PROTAMINE SULFATE) 0 .STK-MED ONE IV (DC) Magnesium Sulfate (MAGNESIUM SULFATE) 0 .STK-MED ONE .ROUTE (DC) Ropivacaine (NAROPIN 0.5% 150 MG/30mL) 0 .STK-ME D ONE .ROUTE (DC) Albumin Human (ALBUMINAR-25%) 100 ML .STK-MED ON E IV (DC) Heparin Sodium (HEPARIN SODIUM) 0 .STK-MED ONE . ROUTE (DC) Sodium Chloride (SODIUM CHLORIDE 0.9%) 100 ML .S TK-MED ONE IV (DC) Lidocaine HCl (XYLOCAINE IV) 0 .STK-MED ONE IV ( DC) Magnesium Sulfate (MAGNESIUM SULFATE) 0 .STK-MED ONE IV (DC) Sodium Bicarbonate (SODIUM BICARBONATE) 0 .STK-M ED ONE IV (DC) Phenylephrine HCl (MARK-SYNEPHRINE 10MG/ML AMP) 0 .STK-MED ONE .ROUTE (DC ) Acetaminophen (TYLENOL EXTRA STRENGTH) 1,000 MG PREOP ONCALL PO (DC) Cefazolin Sodium (KEFZOL OR ANCEF) 2 GM PREOP WINTER INTERN IV (DC) Gabapentin (NEURONTIN) 200 MG PREOP ONCALL PO (D C) Sodium Chloride (SODIUM CHLORIDE) 20 ML ASDIR IV (DC) Vancomycin HCl (VANCOMYCIN HCL) 1,250 MG PREOP O NCALL IV (DC) Sodium Chloride (SODIUM CHLORIDE 0.9%) 250 ML Verapamil HCl (ISOPTIN) 16.6 MG .Q24H ONE IV (DC ) Heparin Sodium (Porcine) (HEPARIN SODIUM) 1,660 UNIT Sodium Bicarbonate (SODIUM BICARBONATE) 0.7 ML Nitroglycerin/Dextrose (NITROGLYCERIN 50MG/D5W 250ML) 8.3 MG Lactated Ringer's (LACTATED RINGERS) 949.5 ML Nebivolol (BYSTOLIC) 10 MG BEDTIME PO (DC) Nitroglycerin/Dextrose (NITROGLYCERIN 50,000MCG/ D5W 250ML) 250 ML ASDIR IV (DC) Heparin Sodium (HEPARIN 5000 UNITS/ML) 0 ASDIR P RN IV (DC) Heparin Sodium (Porcine) (HEPARIN 25,000 UNITS/ 1/2NS 500ML) 500 ML ASDIR IV (DC) Mupirocin (BACTROBAN 2% 22 GM OINTMENT) 1 APPLIC BID NASAL (DC) Carboxymethylcellulose Sodium (REFRESH TEARS) 1 DROP QID PRN EACH EYE ( DC) Docusate Sodium (COLACE) 100 MG BID PO (DC) Ranolazine (RANEXA 500MG TAB) 500 MG Q12HR PO (D C) Al Hydrox/Mg Hydrox/Simethicone (MYLANTA) 30 ML Q4H PRN PRN PO (DC) Hydralazine HCl (APRESOLINE) 50 MG Q6H PRN PRN P O (DC) Amlodipine Besylate (NORVASC) 10 MG DAILY PO (DC ) Aspirin (ASPIRIN) 81 MG DAILY PO (DC) Famotidine (PEPCID) 20 MG DAILY PO (DC) Losartan Potassium (COZAAR) 50 MG DAILY PO (DC) Prednisone (predniSONE) 2 MG C BK PO Atorvastatin Calcium (LIPITOR) 10 MG BEDTIME PO (DC) Prednisone (predniSONE) 1 MG BEDTIME PO (DC) Acetaminophen (TYLENOL EXTRA STRENGTH) 500 MG Q4 H PRN PRN PO (DC) Atropine Sulfate (ATROPINE SULFATE 0.1MG/ML SYR) 0.5 MG ASDIR PRN IV (DC ) Sodium Chloride (SODIUM CHLORIDE 0.9%) 500 ML DIR PRN IV (DC) Status post: 07/27 LHC 08/02 CABG x 4. Physical Exam General appearance: alert, awake Head/Eyes: atraumatic, PERRL ENT: moist mucosal membranes Neck: full range of motion, no JVD Cardiovascular: CV assessment: regular rate and rhythm, no murm ur Respiratory: decreased breath sounds, no distres s Abdomen: soft, non-tender, normal bowel sounds, no distention, no guarding Genitourinary: no flank pain, no urinary cathete r Upper extremity: UE assessment: normal temperature, no edema Lower extremity: LE assessment: normal temperature, no edema Neuro/INSURANCE WRITER: alert, oriented X 3, normal speech Skin: dry, intact Psychiatry: normal affect Results Findings/Data: Laboratory Tests 08/03 08/03 08/03 08/02 0701 0406 0228 2044 Blood Gas Puncture Site Art Line [place] Art Line Art L ine O2 Saturation (90 - 100 %) 96.1 95.4 96.1 ABG pH (7.35 - 7.45) 7.398 7.393 7.378 ABG pCO2 (35.0 - 45 mmHg) 36.4 39.9 41.7 ABG pO2 (80 - 100.0 mmHg) 83.2 78.2 L 83.4 ABG HCO3 (22.0 - 26.0 MMOL/L) 22.4 24.3 24.6 ABG Total CO2 23.5 25.6 25.9 ABG Base Excess (-4.0 - 4.0 MMOL/L) -2.4 -0.6 -0.6 ABG Hematocrit (37.5 - 50.7 %) 27 L 26 L 26 L 2 6 L ABG Hemoglobin (12.5 - 16.9 G/DL) 9.1 L 8.7 L 8 .7 L 8.8 L VBG pH (7.33 - 7.45) 7.365 VBG pCO2 (43 - 47 mmHg) 43.0 VBG pO2 (10 - 50 mmHG) 35.6 VBG HCO3 (22 - 27 MMOL/L) 24.5 POC VBG Total CO2 25.8 VBG O2 Saturation (60 - 80 %) 65.6 VBG Base Excess (-4.0 - 4.0 MMOL/L) -0.8 VBG Temperature (F) 98.8 Sodium (134 - 147 mmol/L) 141 141 141 140 Potassium (3.4 - 5.0 mmol/L) 4.0 4.2 4.3 4.6 Chloride (100 - 108 mmol/L) 110 H 107 108 108 Ionized Calcium (1.12 - 1.32 MMOL/L) 1.17 1.21 1.21 1.29 Lactic Acid (0.9 - 1.7 mmol/l) 0.9 0.5 L 0.6 L 1.5 Temperature (F) 99.1 98.6 98.2 O2 Delivery Device Cannula Cannula Cannula Leonel annemarie 08/02 1544 1417 1318 Blood Gas Puncture Site [place] O2 Saturation (90 - 100 %) 96.4 99.9 99.9 ABG pH (7.35 - 7.45) 7.300 L 7.391 7.383 ABG pCO2 (35.0 - 45 mmHg) 38.2 36.7 42.0 ABG pO2 (80 - 100.0 mmHg) 93.1 254.6 *H 345.2 * H ABG HCO3 (22.0 - 26.0 MMOL/L) 18.8 L 22.3 25.0 ABG Total CO2 20.0 23.4 26.3 ABG Base Excess (-4.0 - 4.0 MMOL/L) -7.6 L -2.4 -0.1 ABG Hematocrit (37.5 - 50.7 %) 25 L 33 L 27 L 2 8 L ABG Hemoglobin (12.5 - 16.9 G/DL) 8.6 L 11.1 L 9.0 L 9.5 L VBG pH (7.33 - 7.45) 7.334 VBG pCO2 (43 - 47 mmHg) 45.9 VBG pO2 (10 - 50 mmHG) 38.0 VBG HCO3 (22 - 27 MMOL/L) 24.5 POC VBG Total CO2 25.9 VBG O2 Saturation (60 - 80 %) 68.8 VBG Base Excess (-4.0 - 4.0 MMOL/L) -1.4 VBG Temperature (F) 98.1 Sodium (134 - 147 mmol/L) 141 141 139 135 Potassium (3.4 - 5.0 mmol/L) 4.3 3.4 4.3 5.6 H Chloride (100 - 108 mmol/L) 108 108 105 105 Ionized Calcium (1.12 - 1.32 MMOL/L) 1.34 H 1.1 5 1.26 1.07 L Lactic Acid (0.9 - 1.7 mmol/l) 2.0 H 2.3 H 1.2 O2 Delivery Device Cannula 08/02 08/02 08/02 1243 1208 1035 Blood Gas O2 Saturation (90 - 100 %) 100.0 100.0 100.0 ABG pH (7.35 - 7.45) 7.404 7.338 L 7.361 ABG pCO2 (35.0 - 45 mmHg) 41.3 42.3 42.7 ABG pO2 (80 - 100.0 mmHg) 417.5 *H 453.7 *H 494 .1 *H ABG HCO3 (22.0 - 26.0 MMOL/L) 25.8 22.8 24.2 ABG Total CO2 27.1 24.1 25.5 ABG Base Excess (-4.0 - 4.0 MMOL/L) 1.0 -3.0 -1 .4 ABG Hematocrit (37.5 - 50.7 %) 28 L 38 47 ABG Hemoglobin (12.5 - 16.9 G/DL) 9.7 L 13.1 16 .0 Sodium (134 - 147 mmol/L) 137 137 141 Potassium (3.4 - 5.0 mmol/L) 5.1 H 4.0 4.0 Chloride (100 - 108 mmol/L) 104 104 104 Ionized Calcium (1.12 - 1.32 MMOL/L) 1.03 L 1.1 5 1.22 Lactic Acid (0.9 - 1.7 mmol/l) 0.6 L < 0.3 L < 0.3 L Laboratory Tests 08/03 08/03 08/03 08/03 08/03 0701 0406 0230 0228 0010 Chemistry Sodium (134 - 147 mEq/L) 141 Potassium (3.4 - 5.0 mEq/L) 4.3 Chloride (100 - 108 mEq/L) 110 H Carbon Dioxide (21 - 33 mEq/l) 25 Anion Gap (0 - 20) 10 BUN (7 - 18 mg/dL) 10 Creatinine (0.6 - 1.3 mg/dL) 0.8 POC Creatinine (0.8 - 1.3 mg/dL) 0.8 0.7 L 0.8 Glomerular Filtr Rate (80 - 90) 96.4 H Glucose (70 - 110 mg/dL) 97 POC Glucose (70 - 110 MG/DL) 120 H POC Glucose (mg/dL) (70 - 110 MG/DL) 114 H 104 93 Calcium (8.0 - 10.5 mg/dL) 8.3 Magnesium (1.80 - 2.40 mg/dL) 2.01 Total Bilirubin (0.0 - 1.0 mg/dL) 0.60 Direct Bilirubin (0.0 - 0.30 MG/DL) 0.30 Indirect Bilirubin (MG/DL) 0.30 AST (15 - 37 IUnit/L) 46 H ALT (30 - 65 IUnit/L) 15 L Total Alk Phosphatase (20 - 125 33 IUnit/L) Total Protein (6.4 - 8.2 g/dL) 5.0 L Albumin (3.4 - 5.0 g/dL) 3.60 08/02 08/02 08/02 08/02 08/02 2207 2047 2044 2043 1949 Chemistry Sodium (134 - 147 mEq/L) 141 Potassium (3.4 - 5.0 mEq/L) 4.5 Chloride (100 - 108 mEq/L) 112 H Carbon Dioxide (21 - 33 mEq/l) 24 Anion Gap (0 - 20) 10 BUN (7 - 18 mg/dL) 10 Creatinine (0.6 - 1.3 mg/dL) 0.8 POC Creatinine (0.8 - 1.3 mg/dL) 0.8 0.7 L Glomerular Filtr Rate (80 - 90) 96.4 H Glucose (70 - 110 mg/dL) 156 H POC Glucose (70 - 110 MG/DL) 134 H 143 H POC Glucose (mg/dL) (70 - 110 MG/DL) 147 H 154 H Calcium (8.0 - 10.5 mg/dL) 8.1 Magnesium (1.80 - 2.40 mg/dL) 2.22 08/02 08/02 08/02 08/02 08/02 1849 1544 1523 1417 1318 Chemistry Sodium (134 - 147 mEq/L) 140 Potassium (3.4 - 5.0 mEq/L) 3.7 Chloride (100 - 108 mEq/L) 109 H Carbon Dioxide (21 - 33 mEq/l) 21 Anion Gap (0 - 20) 14 BUN (7 - 18 mg/dL) 12 Creatinine (0.6 - 1.3 mg/dL) 1.0 POC Creatinine (0.8 - 1.3 mg/dL) 0.9 0.8 0.8 Glomerular Filtr Rate (80 - 90) 82.0 Glucose (70 - 110 mg/dL) 205 H POC Glucose (70 - 110 MG/DL) 109 POC Glucose (mg/dL) (70 - 110 MG/DL) 187 H 187 H 184 H Calcium (8.0 - 10.5 mg/dL) 7.7 L Magnesium (1.80 - 2.40 mg/dL) 2.25 08/02 08/02 08/02 1243 1208 1035 Chemistry POC Creatinine (0.8 - 1.3 mg/dL) 0.7 L 0.7 L 0. 8 POC Glucose (mg/dL) (70 - 110 MG/DL) 142 H 135 H 158 H Laboratory Tests 08/02 08/02 08/02 08/02 1523 1419 1320 1244 Coagulation INR (0.8 - 1.2) 1.3 H PTT ([place]) (25.0 - 39.5 Seconds) 27.4 PT Patient/Control Mix (9.3 - 12.9 SECONDS) 14. 4 H Activated Coag Time (74 - 137 SEC) 107 588 H 66 6 H 08/02 08/02 08/02 1223 1210 1035 Coagulation Activated Coag Time (74 - 137 SEC) 486 H 407 H 137 Laboratory Tests 08/03 08/02 08/02 0230 2047 1522 Hematology WBC (4.5 - 11.0 x10 3/uL) 12.7 H 14.0 H 27.2 H RBC (4.00 - 5.60 x10 6/uL) 2.73 L 2.94 L 3.78 L Hgb (12.5 - 16.9 g/dL) 8.7 L 9.4 L 12.3 L Hct (37.5 - 50.7 %) 25.2 L 27.0 L 34.5 L MCV (81.0 - 99.0 fL) 92.3 91.8 91.3 MCH (27.0 - 33.0 pg) 31.9 32.0 32.5 MCHC (33.0 - 37.0 g/dL) 34.5 34.8 35.7 RDW (11.5 - 14.5 %) 13.8 13.6 13.6 Plt Count (150 - 400 x10 3/uL) 114 L 113 L 167 MPV (7.0 - 9.0 fL) 11.4 H 10.9 H 11.0 H Neut % (Auto) (56.0 - 77.0 %) 73.9 80.2 H 76.5 Lymph % (Auto) (14.0 - 32.0 %) 7.6 L 3.4 L 9.7 L [place] % (Auto) (4.8 - 9.0 %) 17.9 H 15.9 H 12.3 H Eos % (Auto) (0.3 - 3.7 %) 0.0 L 0.0 L 0.4 Baso % (Auto) (0.0 - 2.0 %) 0.1 0.1 0.3 Neut # (Auto) (2.0 - 7.6 x10 3/uL) 9.38 H 11.24 H 20.85 H Lymph # (Auto) (1.0 - 3.8 x10 3/uL) 0.96 L 0.48 L 2.64 [place] # (Auto) (0.1 - 0.8 x10 3/uL) 2.27 H 2.23 H 3.34 H Eos # (Auto) (0.0 - 0.2 x10 3/uL) 0.00 0.00 0.1 0 Baso # (Auto) (0.0 - 0.2 x10 3/uL) 0.01 0.01 0. 07 Abs Immat Gran (auto) (0.00 - 0.03 x10 3/uL) 0. 06 H 0.06 H 0.22 H Add Manual Diff NO NO NO Immature Gran % (0.0 - 2.0 %) 0.5 0.4 0.8 Nucleated RBC % (0 - 0 %) 0.0 0.0 0.0 Nucleated RBCs # (Man) (0.0 - 0.1 x10 3/uL) 0.0 0 0.00 0.00 Laboratory Tests 08/03 08/02 08/02 0230 2047 1523 Chemistry Magnesium (1.80 - 2.40 mg/dL) 2.01 2.22 2.25 Radiology data: Recent Impressions: RADIOLOGY - XR CHEST 1 V 08/02 1456 Report Impression - Status: SIGNED Entered: 08/02/2022 1505 IMPRESSION: No retained surgical needle is seen. Impression By: Johann Childs M.D. RADIOLOGY - XR CHEST 1 V 08/02 1600 Report Impression - Status: SIGNED Entered: 08/02/2022 1656 IMPRESSION: Postoperative change with vascular congestion an d opacity at the lung base. Impression By: Dorina Mccarthy Diagnosis, Assessment Plan Consultants: cardiology, cardiovascular surgery Free Text DxA P Notes Free Text DxA P Notes: Mr. Daly is a pleasant 66 y/o male w/ PMHx: CAD s/p PCI, HTN, HLD, T2DM, GERD , temporal arteritis (on prednisone) presented t o [facility] for elective PCI. - CAD s/p CABG x 4 (MITCHELL to LAD, SVG to M1, M2, PDA) on telemtry EF 55 to 60% with grade 1 diastolic dysfunction - HTN. BP controlled. On Bystolic, Norvasc and Losartan. Hydralazine PRN. - HLD. On statins. - Chronic temporal arteritis. On prednisone. - GERD. Per IM. On Pepcid. Maalox PRN. Electronically Signed by Denton Chaparro MD on at [address] [facility] #:[id number] END OF REPORT 2022-08-03 06:05:00-00:00 [id number] [place] [address] PATIENT NAME: MARY DALY ADMIT DATE: 07/30/22 ACCOUNT NO: [id number] ROOM NO: 2207 AGE: 66 REPORT TYPE: eELECTROCARDIOGRAM REPORT SEX: M ADMITTING PHYSICIAN:Anthony Loaiza MD ATTENDING PHYSICIAN:Anthony Loaiza MD Order: [id number] Test Reason : chest pain Test Date/Time Stamp: TueAug 03 2022 06:05:42 Blood Pressure : / mmHG Vent. Rate : 076 BPM Atrial Rate : 076 BPM P-R Int : 132 ms QRS Dur : 096 ms QT Int : 392 ms P-R-T Axes : 052 028 054 degree s QTc Int : 441 ms Normal sinus rhythm Low voltage QRS Nonspecific ST and T wave abnormality Abnormal ECG When compared with ECG of 03-AUG-2022 03:51, No significant change was found Confirmed by MD CHAPARRO GERARD ([id number]) on 08/04/19 10:07:13 PM Referred By: Anthony Loaiza Confirmed by:DENTON PIÑA MD Electronically Signed by Denton Chaparro MD on 0 08/03/22 at 2207 PATIENT NAME: MARY DALY 2 2022-08-03 03:51:00-00:00 [id number] [place] [address] PATIENT NAME: MARY DALY ADMIT DATE: 07/30/22 ACCOUNT NO: [id number] ROOM NO: .2207 AGE: 66 REPORT TYPE: eELECTROCARDIOGRAM REPORT SEX: M ADMITTING PHYSICIAN:Anthony Loaiza MD ATTENDING PHYSICIAN:Anthony Loaiza MD Order: [id number] Test Reason : P/S CABG Test Date/Time Stamp: TueAug 03 2022 03:51:14 Blood Pressure : / mmHG Vent. Rate : 075 BPM Atrial Rate : 075 BPM P-R Int : 140 ms QRS Dur : 090 ms QT Int : 416 ms P-R-T Axes : 029 021 040 degree s QTc Int : 464 ms Normal sinus rhythm Low voltage QRS Normal ECG When compared with ECG of 02-AUG-2022 15:55, No changes Confirmed by MD CHAPARRO GERARD ([id number]) on 08/04/19 10:07:09 PM Referred By: Anthony Loaiza Confirmed by:DENTON CHAPARRO MD Electronically Signed by Denton Chaparro MD on 0 08/03/22 at 2207 PATIENT NAME: MARY DALY 2 2022-08-02 15:55:00-00:00 [id number] [address] PATIENT NAME: MARY DALY ADMIT DATE: 07/30/22 ACCOUNT NO: [id number] ROOM NO: [facility] AGE: 66 REPORT TYPE: eELECTROCARDIOGRAM REPORT SEX: M ADMITTING PHYSICIAN:Anthony Loaiza MD ATTENDING PHYSICIAN:Anthony Loaiza MD Order: [id number] Test Reason : S/P CABG Test Date/Time Stamp: TueAug 02 2022 15:55:50 Blood Pressure : / mmHG Vent. Rate : 073 BPM Atrial Rate : 073 BPM P-R Int : 150 ms QRS Dur : 094 ms QT Int : 458 ms P-R-T Axes : 082 052 095 degree s QTc Int : 504 ms Normal sinus rhythm Nonspecific T wave abnormality Prolonged QT Abnormal ECG When compared with ECG of 01-AUG-2022 05:21, No changes Confirmed by MD CHAPARRO GERARD ([id number]) on 08/04/19 10:06:54 PM Referred By: Sam Price Confirmed by:DENTON CHAPARRO MD Electronically Signed by Denton Chaparro MD on 0 08/03/22 at 2206 PATIENT NAME: MARY DALY 2 2022-08-02 15:53:00-00:00 [facility] ([facility]) Critical Care Consult Note REPORT#:[id number] REPORT STATUS: Signed DATE:08/02/22 TIME: 1553 PATIENT: MARY DALY UNIT #: [id number] ROOM/BED: 2207-1 : 53 AGE: 66 SEX: M ATTEND: Marcella Loaiza od, MD ADM AUTHOR: Sterling Hidalgo MD * ALL edits or amendments must be made on the [employer]/computer document * History of Present Illness HPI Requesting clinician: Dr Kenneth Mccurdy Reason for consult: Coronary artery disease Status post CABG x5 and ILAA Elective ventilatory dependence for acute pulmon oli insufficiency following major cardiothoracic surgery Acute blood loss anemia cardiogenic shock Hyperglycemia Chief complaint: Chest pain PCP: PCP: Albino Torre MD HPI: Patient was brought to the C VICU room #2207 status post CABG x5 and ligation of left atrial appendage, extubated in the OR, on e pinephrine at 4 mcg and norepinephrine at 2 mcg. Pat ient was a grade 1 view easy intubation with 8.0 ET tube. Received rocuronium and etomidate for RSI. EF 55%. PA pressures 24 mmHg and cardiac index 2.2-2.6. Patient received intr avenous calcium and magnesium intraoperatively. Had 600 mL of urine output and 1 L of crystalloids were given. Patient received 720 mL of Cell Saver. No products or autologous transfusion was performed. Postop hemoglobin was 9.0 g/dL and ACT was 107. Patient is on insulin at 2 units/h and b lood glucose is 180 mg/dL. Patient was on chronic prednisone therapy with prednisone 3 mg p.o. daily for temporal arteritis since 2016. And received hydrocortison e 100 mg IV x1 dose. He is able to move all 4 extremiti es and follows commands. Left pleural output is 50 mL and mediastinal output is 35 mL. Patient has bilaterally symmetrical and equal pupils on both sides. He received paraster nal block for pain control. Vital signs are stable with a heart rate of 80 sinus rhythm, blood pressure 128/ 57 mmHg, pulse ox 96% on facemask and PA pressur es 28/12 mmHg. He is awake, interactive, following commands and moving all 4 extremities. Patient is full code. Mary Daly is a 66-year gentleman with past med ica history significant for coronary artery disease stat us post PCI in the past, with most recent in July 07, 2022, history of temporal arteritis on chronic p rednisone since 2017, diverticulitis, gout, hypertension, hyperlipidem ia. Strong family history of CAD. Has history of diabetes. He present ed with exertional shortness of breath with occasional chest pain over the past several weeks. Cardiac work-up and left heart cath revealed mul tivessel coronary disease. CT surgery was consulted for CABG evaluation and patient underwent surger y on 08/02/2022. History - Adult longitudinal Past medical history: Reports: Coronary artery dis ease, Hypertension, Dyslipidemia, Prior CA, Steroid use. Additional medical history: Temproal arteritis (2017) Additional surgical history: Colon resection 2009 secondary to diverticulitis C3 surgery Family history: Reports: Heart disease (brother). Alcohol use: Alcohol use (1-7 drinks per week) Drug use: Denies recreational drugs Smoking status for patients 13 years old or olde r: Never Smoker Medications: Home Medications: Medication Dose/Rte/Freq Days Qty Entered Last Max Daily Dose Reviewed ATORVASTATIN (LIPITOR) 10 MG PO DAILY 07/23/22 07/27/22 Strength: 10 MG TAB 1630 1406 CIPROFLOXACIN (CIPRO) 500 MG PO 07/23/22 Strength: 500 MG TAB DAILY PRN 1631 1406 DIVERTICULITIS CLOPIDOGREL (PLAVIX) 75 MG PO DAILY 07/23/22 Strength: 75 MG TAB 1631 1406 metroNIDAZOLE (FLAGYL) 500 MG PO 07/23/2207/27 Strength: 500 MG TAB TID PRN 1631 1406 DIVERTICULITIS NEBIVOLOL (BYSTOLIC) 20 MG PO BID 07/23/2208/13 Strength: 20 MG TAB 1631 1406 OMEPRAZOLE ER (PriLOSEC) 40 MG PO 07/23/2208/13 Strength: 40 MG CAP.DR DAILY PRN ACID 1632 1406 REFLUX predniSONE 1 MG PO TID 07/23/22 07/27/22 Strength: 1 MG TAB 1633 1406 SILDENAFIL (VIAGRA) 100 MG PO 07/23/22 3 Strength: 100 MG TAB DAILY PRN PRN ED 1633 1406 SODIUM FLUORIDE 1 APPLIC TOPICAL 07/23/2207/27 (PREVIDENT 5000 1.1% DAILY 1633 1406 DENTAL) Strength: 1.1 % GEL ASPIRIN 81 MG PO DAILY 07/23/22 07/27/22 Strength: 81 MG TAB.CHEW 1633 1406 POTASSIUM GLUCONATE 1 TAB PO DAILY 07/23/2208/13 Strength: 550 MG (90 MG) 1634 1406 TAB CALCIUM CARBONATE 600 MG PO DAILY 07/23/2208/13 (CALTRATE 600 MG) 1634 1406 Strength: 600 MG CALCIUM (1,500 MG) TAB CHOLECALCIFEROL 1,000 UNITS PO DAILY 07/23/22 0 07/27/22 (VITAMIN D3) 1634 1406 (VITAMIN D3) Strength: 25 MCG (1,000 UNIT) TAB ACETAMINOPHEN (TYLENOL) 500 MG PO 07/23/2208/13 Strength: 500 MG TAB Q4H PRN PRN PAIN 1634 1406 IBUPROFEN (ADVIL) 200 MG PO 07/23/22 07/27/22 Strength: 200 MG TAB Q6H PRN PRN PAIN 1635 1406 FAMOTIDINE (PEPCID) 20 MG PO DAILY 07/23/2208/13 Strength: 20 MG TAB 1635 1406 amLODIPine (NORVASC) 10 MG PO DAILY 07/23/22 Strength: 10 MG TAB 1635 1406 LOSARTAN (COZAAR) 50 MG PO DAILY 07/23/2208/13 Strength: 50 MG TAB 1635 1406 Current Hospital Medications: Anti-Infective Agents Sig/Cory Start time Last Medication Dose Route Stop Time Status Admin Cefazolin Sodium 6 GM ONCE ONE 08/02 1330 CKD (KEFZOL OR ANCEF) IV 08/03 0929 Sodium Chloride 500 ML (SODIUM CHLORIDE 0.9%) Cefazolin Sodium 0 .STK-MED ONE 08/02 0943 DC (KEFZOL OR ANCEF) .ROUTE Vancomycin HCl 0 .STK-MED ONE 08/02 0943 DC (Vancomycin 1,250 mg IV Inj (B2)) Cefazolin Sodium 2 GM PREOP ONCALL 08/02 0500 C KD (KEFZOL OR ANCEF) IV 08/02 2359 Vancomycin HCl 1,250 MG PREOP ONCALL 08/02 050 0 CKD (VANCOMYCIN HCL) IV 08/02 2359 Sodium Chloride 250 ML (SODIUM CHLORIDE 0.9%) Autonomic Drugs Sig/Cory Start time Last Medication Dose Route Stop Time Status Admin Ipratropium [place] 500 MCG RTQ2H PRN PRN 08/05 1326 AC (ATROVENT) INH 09/04 1325 Ipratropium [place] 500 MCG RTQ4H 08/02 1600 A C (ATROVENT) INH 08/05 1326 Epinephrine 4 MG ASDIR 08/02 1330 AC (ADRENALIN CHLORIDE) IV 09/01 1329 Dextrose/Water 246 ML (DEXTROSE 5% WATER) Norepinephrine 250 ML TITRATE 08/02 1330 AC Bitartrate IV 09/01 1329 (NOREPINEPHRINE 8 MG/ NS 250 ML) Rocuronium [place] 0 .STK-MED ONE 08/02 0910 DC (ZEMURON) IV Epinephrine HCl 250 ML .STK-MED ONE 08/03 907 DC (EPINEPHrine 4 mg/ IV D5W 250 mL) Norepinephrine 250 ML .STK-MED ONE 08/03 907 D C Bitartrate IV (NOREPINEPHRINE 8 MG/ NS 250 ML) Phenylephrine HCl 0 .STK-MED ONE 08/02 0858 DC (MARK-SYNEPHRINE 10MG/ .ROUTE ML AMP) Atropine Sulfate 0.5 MG ASDIR PRN 07/27 1600 AC (ATROPINE SULFATE IV 08/26 1559 0.1MG/ML SYR) Blood Derivatives Sig/Cory Start time Last Medication Dose Route Stop Time Status Admin Albumin Human 25 GM ASDIR PRN 08/02 1330 AC (ALBUMINAR 25%) IV 08/03 1326 Albumin Human 100 ML .STK-MED ONE 08/02 09 DC (ALBUMINAR-25%) IV Blood Formation,Coagulation Sig/Cory Start time Last Medication Dose Route Stop Time Status Admin Ferrous Sulfate 325 MG DAILY 08/05 09 AC (FERROUS SULFATE) PO 09/04 08 Clopidogrel Bisulfate 75 MG DAILY 08/03 09 AC (Plavix) PO 09/02 0859 Antithrombin III 0 .STK-MED ONE 08/02 1217 DC (Human) IV (Thrombate III) Heparin Sodium 0 .STK-MED ONE 08/02 1215 DC (HEPARIN SODIUM) .ROUTE Aminocaproic Acid 0 .STK-MED ONE 08/02 906 DC (AMICAR) IV Heparin Sodium 0 .STK-MED ONE 08/02 906 DC (HEPARIN SODIUM) .ROUTE Protamine Sulfate 0 .STK-MED ONE 08/02 906 DC (PROTAMINE SULFATE) IV Heparin Sodium 0 .STK-MED ONE 08/02 09 DC (HEPARIN SODIUM) .ROUTE Heparin Sodium 0 ASDIR PRN 07/31 1000 AC (HEPARIN 5000 UNITS/ IV 08/30 0959 ML) Heparin Sodium 500 ML ASDIR 07/31 1000 CKD 07/22 0 (Porcine) IV 08/30 09 1043 (HEPARIN 25,000 UNITS/ 1/2NS 500ML) Cardiovascular Drugs Sig/Cory Start time Last Medication Dose Route Stop Time Status Admin Atorvastatin Calcium 40 MG 2100 08/03 2100 AC (LIPITOR) PO 09/02 2058 Metoprolol Tartrate 12.5 MG Q12HR 08/02 2100 AC (LOPRESSOR) PO 09/01 2058 Amiodarone HCl 200 MG TID 08/02 1500 AC (CORDARONE) PO 09/01 1459 Nitroglycerin/ 250 ML ASDIR 08/02 1330 AC Dextrose IV 09/01 1329 (NITROGLYCERIN 50,000MCG/D5W 250ML) Lidocaine HCl 0 .STK-MED ONE 08/02 0916 DC (XYLOCAINE) .ROUTE Esmolol HCl 0 .STK-MED ONE 08/02 0910 DC (BREVIBLOC) IV Lidocaine HCl 0 .STK-MED ONE 08/02 0910 DC (XYLOCAINE) .ROUTE Nitroglycerin/ 250 ML .STK-MED ONE 08/02 0907 D C Dextrose IV (NITROGLYCERIN 50,000MCG/D5W 250ML) Lidocaine HCl 0 .STK-MED ONE 08/02 0859 DC (XYLOCAINE IV) IV Papaverine HCl 0 .STK-MED ONE 08/02 0648 DC (PAPAVERINE HCL) IV Metoprolol Tartrate 6.25 MG ONCE ONE 08/02 0500 DC (LOPRESSOR) PO 08/02 0501 Verapamil HCl 16.6 MG .Q24H ONE 08/02 0500 CKD (ISOPTIN) IV 08/03 0459 Heparin Sodium 1,660 UNIT (Porcine) (HEPARIN SODIUM) Sodium Bicarbonate 0.7 ML (SODIUM BICARBONATE) Nitroglycerin/ 8.3 MG Dextrose (NITROGLYCERIN 50MG/ D5W 250ML) Lactated Ringer's 949.5 ML (LACTATED RINGERS) Nebivolol 10 MG BEDTIME 07/31 2100 AC 08/01 (BYSTOLIC) PO 08/30 2058 204 Nitroglycerin/ 250 ML ASDIR 07/31 1415 AC Dextrose IV 08/30 1414 (NITROGLYCERIN 50,000MCG/D5W 250ML) Ranolazine 500 MG Q12HR 07/28 2100 AC 08/02 (RANEXA 500MG TAB) PO 08/27 2058 08 Hydralazine HCl 50 MG Q6H PRN PRN 07/28 1700 AC 07/28 (APRESOLINE) PO 08/27 1659 1840 Amlodipine Besylate 10 MG DAILY 07/28 0900 AC 0 08/01 (NORVASC) PO 08/27 0859 0810 Losartan Potassium 50 MG DAILY 07/28 0900 AC 0 08/01 (COZAAR) PO 08/27 0859 0811 Atorvastatin Calcium 10 MG BEDTIME 07/27 2315 D C 08/01 (LIPITOR) PO 08/26 2303 2044 Central Nervous System Agents Sig/Cory Start time Last Medication Dose Route Stop Time Status Admin Gabapentin 200 MG BID 08/02 2100 AC (NEURONTIN) PO 08/07 09 Aspirin 81 MG DAILY 08/02 1926 AC (ASPIRIN) PO 09/01 1925 Acetaminophen 650 MG Q4H PRN PRN 08/02 1330 AC (TYLENOL) PO 09/01 1329 Acetaminophen 650 MG Q4H PRN PRN 08/02 1330 AC (TYLENOL) RECTAL 09/01 1329 Magnesium Sulfate 100 ML ASDIR PRN 08/02 1330 A C (MAGNESIUM SULFATE IV 09/01 1329 4GM/SWFI 100ML) Magnesium Sulfate 50 ML ASDIR PRN 08/02 1330 A C (MAGNESIUM SULFATE IV 09/01 1329 2GM/SWFI 50ML) Magnesium Sulfate/ 100 ML ASDIR PRN 08/02 1330 AC Dextrose IV 09/01 1329 (MAGNESIUM SULFATE 1GM/D5W 100ML) Oxycodone HCl 5 MG Q4H PRN PRN 08/02 1330 AC (ROXICODONE) PO 08/07 1329 Oxycodone HCl 10 MG Q4H PRN PRN 08/02 1330 AC (ROXICODONE) PO 08/07 1329 Etomidate 0 .STK-MED ONE 08/02 0910 DC (AMIDATE) IV Fentanyl Citrate 0 .STK-MED ONE 08/02 0910 DC (SUBLIMAZE) IV Magnesium Sulfate 0 .STK-MED ONE 08/02 0906 DC (MAGNESIUM SULFATE) .ROUTE Magnesium Sulfate 0 .STK-MED ONE 08/02 0859 DC (MAGNESIUM SULFATE) IV Acetaminophen 1,000 MG PREOP ONCALL 08/02 0500 CKD 08/02 (TYLENOL EXTRA PO 09/01 0459 0819 STRENGTH) Gabapentin 200 MG PREOP ONCALL 08/02 0500 CKD 0 08/02 (NEURONTIN) PO 09/01 0459 0818 Aspirin 81 MG DAILY 07/28 0900 DC 08/02 (ASPIRIN) PO 08/27 0859 0730 Acetaminophen 500 MG Q4H PRN PRN 07/27 1600 AC 07/31 (TYLENOL EXTRA PO 08/26 1559 0516 STRENGTH) Electrolytic, Caloric, And Pearl Sig/Cory Start time Last Medication Dose Route Stop Time Status Admin Calcium Chloride 1 GM ASDIR PRN 08/02 1330 AC (CALCIUM CHLORIDE) IV 09/01 1329 Dextrose/Water 125 ML ASDIR PRN 08/02 1330 CKD (DEXTROSE 10% IN IV 09/01 1329 WATER) Dextrose/Water 250 ML ASDIR PRN 08/02 1330 CKD (DEXTROSE 10% IN IV 09/01 1329 WATER) Potassium Chloride 100 ML ASDIR PRN 08/02 1330 AC (KCL 20MEQ/SWFI IV 09/01 1329 100ML) Sodium Bicarbonate 50 MEQ ASDIR PRN 08/02 1330 AC (SODIUM BICARBONATE) IV 09/01 1329 Sodium Chloride 1,000 ML .Q20H 08/02 1330 AC (SODIUM CHLORIDE IV 09/01 1329 0.9%) Sodium Chloride 250 ML Q24H 08/02 1330 AC (SODIUM CHLORIDE IV 09/01 1329 0.9%) Sodium Chloride 250 ML .STK-MED ONE 08/02 0943 DC (SODIUM CHLORIDE IV 0.9%) Calcium Chloride 0 .STK-MED ONE 08/02 0907 DC (CALCIUM CHLORIDE) IV Sodium Chloride 100 ML .STK-MED ONE 08/02 0900 DC (SODIUM CHLORIDE IV 0.9%) Sodium Bicarbonate 0 .STK-MED ONE 08/02 0859 DC (SODIUM BICARBONATE) IV Sodium Chloride 20 ML ASDIR 08/02 0500 AC (SODIUM CHLORIDE) IV 09/01 0459 Sodium Chloride 500 ML ASDIR PRN 07/27 1600 AC (SODIUM CHLORIDE IV 08/26 1559 0.9%) Eye, Ear, Nose And Throat (Een Sig/Cory Start time Last Medication Dose Route Stop Time Status Admin Dexamethasone Sodium 0 .STK-MED ONE 08/02 0910 DC Phosphate .ROUTE (DECADRON) Carboxymethylcellul- 1 DROP QID PRN 07/28 2200 AC 07/28 ose Sodium EACH EYE 08/27 2158 2205 (REFRESH TEARS) Gastrointestinal Drugs Sig/Cory Start time Last Medication Dose Route Stop Time Status Admin Bisacodyl 10 MG ONCE PRN 08/04 1200 AC (DULCOLAX) RECTAL 09/03 1159 Magnesium Hydroxide 30 ML ONCE PRN 08/04 1200 A C (MILK OF MAGNESIA) PO Polyethylene Glycol 17 GM DAILY 08/03 09 AC (MIRALAX) PO 09/02 0859 Pantoprazole 40 MG DAILY@00 08/03 0600 AC (PROTONIX) PO 09/02 0559 Docusate Sodium 100 MG BID 08/02 2100 AC (COLACE) PO 09/01 2058 Sennosides 17.2 MG BEDTIME 08/02 2100 AC (Senna Lax 8.6 MG PO 09/01 2058 TABLET) Ondansetron HCl 4 MG Q6H PRN PRN 08/02 1330 AC (ZOFRAN) IV 09/01 1329 Ondansetron HCl 0 .STK-MED ONE 08/02 09 DC (ZOFRAN) .ROUTE Docusate Sodium 100 MG BID 07/28 2100 DC 08/01 (COLACE) PO 08/27 2058 204 Al Hydrox/Mg Hydrox/ 30 ML Q4H PRN PRN 07/28 17 30 AC 07/28 Simethicone PO 08/27 1729 1831 (MYLANTA) Famotidine 20 MG DAILY 07/28 0900 AC 08/02 (PEPCID) PO 08/27 0859 0818 Hormones And Synthetic Substit Sig/Cory Start time Last Medication Dose Route Stop Time Status Admin Glucagon 1 MG ASDIR PRN 08/02 1330 AC (GLUCAGON) IM 09/01 1329 Insulin Human Regular 100 UNIT ASDIR 08/02 1330 CKD (HumuLIN R) IV 09/01 1329 Sodium Chloride 99 ML (SODIUM CHLORIDE 0.9%) Hydrocortisone 100 MG PREOP ONCALL 08/02 1200 C KD Sodium Succinate IV 09/01 1159 (Solu-CORTEF) Insulin Human Regular 100 ML .STK-MED ONE 08/02 0908 DC (HumuLIN R 100 UNITS/ IV NS 100ML) Prednisone 2 MG C BK 07/28 0800 AC 08/02 (predniSONE) PO 08/27 0759 0819 Prednisone 1 MG BEDTIME 07/27 2315 AC 08/01 (predniSONE) PO 08/26 2314 2044 Local Anesthetics (Parenteral) Sig/Cory Start time Last Medication Dose Route Stop Time Status Admin Ropivacaine 0 .STK-MED ONE 08/02 0906 DC (NAROPIN 0.5% 150 MG/ .ROUTE 30mL) Miscellaneous Therapeutic Agen Sig/Cory Start time Last Medication Dose Route Stop Time Status Admin Sugammadex Sodium 0 .STK-MED ONE 08/02 1445 DC (BRIDION) IV Skin And Mucous Membrane Agent Sig/Cory Start time Last Medication Dose Route Stop Time Status Admin Mupirocin 1 APPLIC BID 08/02 1344 DC (BACTROBAN 2% 22 GM NASAL 08/06 2101 OINTMENT) Mupirocin 1 APPLIC BID 07/30 2100 AC 08/02 (BACTROBAN 2% 22 GM NASAL 08/04 0901 0730 OINTMENT) Vitamins Sig/Cory Start time Last Medication Dose Route Stop Time Status Admin Cyanocobalamin 500 MCG DAILY 08/05 0900 AC (Vitamin B-12 500 PO 09/04 0859 mcg tab) Allergies: Coded Allergies: hydromorphone (From DILAUDID) (Severe, THROAT SW ELLS 07/27/22) crab (Intermediate, ITCHING, CHILLS 07/27/22) doxepin (Intermediate, AFFECTS MEMORY, INSOMNIA 07/27/22) oyster extract (Intermediate, ITCHING 07/27/22) tamsulosin (Intermediate, ABNORMAL EJACULATION, FLU SYMPTOMS, FEVER 07/27/22) dexlansoprazole (UNKOWN 07/27/22) eszopiclone (From LUNESTA) (UNKNOWN 07/27/22) levofloxacin (UNKNOWN 07/27/22) meperidine (UNKNOWN 07/27/22) doxycycline (Mild, CRAMPS 07/27/22) diclofenac (DIARRHEA 07/27/22) Uncoded Allergies: CRAWFISH (Severe, THROAT SWELLS 07/23/22) Ambulatory status: Independent Review of Systems ROS Constitutional: Denies: fatigue, fever. Skin: Denies: diaphoresis, ecchymosis, itching. Allergy/Immun: Denies: hives, itching. Eyes: Denies: redness, discharge. ENT: Denies: nose bleeding, throat swelling, tongue s welling. Respiratory: Denies: SOB, wheezing. Cardiovascular: Reports: chest pain. Denies: PETERSEN (dyspnea on exe rtion), edema. GI: Denies: hematemesis, hematochezia. : Denies: hematuria, nocturia. Musculoskeletal: Denies: extremity pain, extremity swelling. Heme: Denies: bleeding, bruising. Endocrine: Denies: polydipsia, polyphagia. Neuro: Denies: confusion, dizziness, seizure. Psych: Denies: confusion, delusional, insomnia. Objective Physical Exam VS/I O: Last Documented: Result Date Time Pulse Ox 90 08/02 0800 B/P 151/85 08/02 0800 B/P Mean 113 08/02 0800 Pulse 52 08/02 0800 Resp 32 08/03 0700 Temp 36.7 08/02 1999 O2 Delivery Room air 08/01 1944 24 hour I O ending at 0700: 08/02 0700 08/01 1900 Intake Total 880.00 Output Total 800 950 Balance -800 -70.00 Intake, IV 240.00 Intake, Oral 640 Output, Urine 800 950 Patient Weight and BMI Weight (kg): 85.300 BMI: 27.0 Medications: Active Meds + DC'd Last 24 Hrs Ipratropium [place] (ATROVENT) 500 MCG RTQ2H PRN PRN INH Cyanocobalamin (Vitamin B-12 500 mcg tab) 500 MC G DAILY PO Ferrous Sulfate (FERROUS SULFATE) 325 MG DAILY P O Bisacodyl (DULCOLAX) 10 MG ONCE PRN RECTAL Magnesium Hydroxide (MILK OF MAGNESIA) 30 ML ONC E PRN PO Atorvastatin Calcium (LIPITOR) 40 MG 2100 PO Clopidogrel Bisulfate (Plavix) 75 MG DAILY PO Polyethylene Glycol (MIRALAX) 17 GM DAILY PO Pantoprazole (PROTONIX) 40 MG DAILY@0600 PO Docusate Sodium (COLACE) 100 MG BID PO Gabapentin (NEURONTIN) 200 MG BID PO Metoprolol Tartrate (LOPRESSOR) 12.5 MG Q12HR PO Sennosides (Senna Lax 8.6 MG TABLET) 17.2 MG BED TIME PO Aspirin (ASPIRIN) 81 MG DAILY PO Ipratropium [place] (ATROVENT) 500 MCG RTQ4H INH Amiodarone HCl (CORDARONE) 200 MG TID PO Sugammadex Sodium (BRIDION) 0 .STK-MED ONE IV (D C) Mupirocin (BACTROBAN 2% 22 GM OINTMENT) 1 APPLIC BID NASAL (DC) Acetaminophen (TYLENOL) 650 MG Q4H PRN PRN PO Acetaminophen (TYLENOL) 650 MG Q4H PRN PRN RECTA L Albumin Human (ALBUMINAR 25%) 25 GM ASDIR PRN IV Calcium Chloride (CALCIUM CHLORIDE) 1 GM ASDIR P RN IV Cefazolin Sodium (KEFZOL OR ANCEF) 6 GM ONCE ONE IV (CKD) Sodium Chloride (SODIUM CHLORIDE 0.9%) 500 ML Dextrose/Water (DEXTROSE 10% IN WATER) 125 ML DIR PRN IV (CKD) Dextrose/Water (DEXTROSE 10% IN WATER) 250 ML DIR PRN IV (CKD) Epinephrine (ADRENALIN CHLORIDE) 4 MG ASDIR IV Dextrose/Water (DEXTROSE 5% WATER) 246 ML Glucagon (GLUCAGON) 1 MG ASDIR PRN IM Insulin Human Regular (HumuLIN R) 100 UNIT ASDIR IV (CKD) Sodium Chloride (SODIUM CHLORIDE 0.9%) 99 ML Magnesium Sulfate (MAGNESIUM SULFATE 4GM/SWFI 10 0ML) 100 ML ASDIR PRN IV Magnesium Sulfate (MAGNESIUM SULFATE 2GM/SWFI 50 ML) 50 ML ASDIR PRN IV Magnesium Sulfate/Dextrose (MAGNESIUM SULFATE 1G M/D5W 100ML) 100 ML ASDIR PRN IV Nitroglycerin/Dextrose (NITROGLYCERIN 50,000MCG/ D5W 250ML) 250 ML ASDIR IV Norepinephrine Bitartrate (NOREPINEPHRINE 8 MG/N S 250 ML) 250 ML TITRATE IV Ondansetron HCl (ZOFRAN) 4 MG Q6H PRN PRN IV Oxycodone HCl (ROXICODONE) 5 MG Q4H PRN PRN PO Oxycodone HCl (ROXICODONE) 10 MG Q4H PRN PRN PO Potassium Chloride (KCL 20MEQ/SWFI 100ML) 100 ML ASDIR PRN IV Sodium Bicarbonate (SODIUM BICARBONATE) 50 MEQ A SDIR PRN IV Sodium Chloride (SODIUM CHLORIDE 0.9%) 1,000 ML .Q20H IV Sodium Chloride (SODIUM CHLORIDE 0.9%) 250 ML Q2 4H IV Antithrombin III (Human) (Thrombate III) 0 .STK- MED ONE IV (DC) Heparin Sodium (HEPARIN SODIUM) 0 .STK-MED ONE .ROUTE (DC) Hydrocortisone Sodium Succinate (Solu-CORTEF) 10 0 MG PREOP ONCALL IV ( CKD) Cefazolin Sodium (KEFZOL OR ANCEF) 0 .STK-MED ON E .ROUTE (DC) Sodium Chloride (SODIUM CHLORIDE 0.9%) 250 ML .S TK-MED ONE IV (DC) Vancomycin HCl (Vancomycin 1,250 mg Inj (B2)) 0 .STK-MED ONE IV (DC) Lidocaine HCl (XYLOCAINE) 0 .STK-MED ONE .ROUTE (DC) Dexamethasone Sodium Phosphate (DECADRON) 0 .STK -MED ONE .ROUTE (DC) Esmolol HCl (BREVIBLOC) 0 .STK-MED ONE IV (DC) Etomidate (AMIDATE) 0 .STK-MED ONE IV (DC) Fentanyl Citrate (SUBLIMAZE) 0 .STK-MED ONE IV ( DC) Lidocaine HCl (XYLOCAINE) 0 .STK-MED ONE .ROUTE (DC) Ondansetron HCl (ZOFRAN) 0 .STK-MED ONE .ROUTE ( DC) Rocuronium [place] (ZEMURON) 0 .STK-MED ONE IV ( DC) Epinephrine HCl (EPINEPHrine 4 mg/D5W 250 mL) 25 0 ML .STK-MED ONE IV (DC ) Insulin Human Regular (HumuLIN R 100 UNITS/NS 10 0ML) 100 ML .STK-MED ONE IV (DC) Norepinephrine Bitartrate (NOREPINEPHRINE 8 MG/N S 250 ML) 250 ML .STK-MED ONE IV (DC) Aminocaproic Acid (AMICAR) 0 .STK-MED ONE IV (DC ) Calcium Chloride (CALCIUM CHLORIDE) 0 .STK-MED O NE IV (DC) Heparin Sodium (HEPARIN SODIUM) 0 .STK-MED ONE . ROUTE (DC) Nitroglycerin/Dextrose (NITROGLYCERIN 50,000MCG/ D5W 250ML) 250 ML .STK-MED ONE IV (DC) Protamine Sulfate (PROTAMINE SULFATE) 0 .STK-MED ONE IV (DC) Magnesium Sulfate (MAGNESIUM SULFATE) 0 .STK-MED ONE .ROUTE (DC) Ropivacaine (NAROPIN 0.5% 150 MG/30mL) 0 .STK-ME D ONE .ROUTE (DC) Albumin Human (ALBUMINAR-25%) 100 ML .STK-MED ON E IV (DC) Heparin Sodium (HEPARIN SODIUM) 0 .STK-MED ONE . ROUTE (DC) Sodium Chloride (SODIUM CHLORIDE 0.9%) 100 ML .S TK-MED ONE IV (DC) Lidocaine HCl (XYLOCAINE IV) 0 .STK-MED ONE IV ( DC) Magnesium Sulfate (MAGNESIUM SULFATE) 0 .STK-MED ONE IV (DC) Sodium Bicarbonate (SODIUM BICARBONATE) 0 .STK-M ED ONE IV (DC) Phenylephrine HCl (MARK-SYNEPHRINE 10MG/ML AMP) 0 .STK-MED ONE .ROUTE (DC ) Papaverine HCl (PAPAVERINE HCL) 0 .STK-MED ONE I V (DC) Acetaminophen (TYLENOL EXTRA STRENGTH) 1,000 MG PREOP ONCALL PO (CKD) Cefazolin Sodium (KEFZOL OR ANCEF) 2 GM PREOP WINTER INTERN IV (CKD) Gabapentin (NEURONTIN) 200 MG PREOP ONCALL PO (C KD) Metoprolol Tartrate (LOPRESSOR) 6.25 MG ONCE ONE PO (DC) Sodium Chloride (SODIUM CHLORIDE) 20 ML ASDIR IV Vancomycin HCl (VANCOMYCIN HCL) 1,250 MG PREOP O NCALL IV (CKD) Sodium Chloride (SODIUM CHLORIDE 0.9%) 250 ML Verapamil HCl (ISOPTIN) 16.6 MG .Q24H ONE IV (CK D) Heparin Sodium (Porcine) (HEPARIN SODIUM) 1,660 UNIT Sodium Bicarbonate (SODIUM BICARBONATE) 0.7 ML Nitroglycerin/Dextrose (NITROGLYCERIN 50MG/D5W 250ML) 8.3 MG Lactated Ringer's (LACTATED RINGERS) 949.5 ML Nebivolol (BYSTOLIC) 10 MG BEDTIME PO Nitroglycerin/Dextrose (NITROGLYCERIN 50,000MCG/ D5W 250ML) 250 ML ASDIR IV Heparin Sodium (HEPARIN 5000 UNITS/ML) 0 ASDIR PRN IV Heparin Sodium (Porcine) (HEPARIN 25,000 UNITS/ 1/2NS 500ML) 500 ML ASDIR IV (CKD) Mupirocin (BACTROBAN 2% 22 GM OINTMENT) 1 APPLIC BID NASAL Carboxymethylcellulose Sodium (REFRESH TEARS) 1 DROP QID PRN EACH EYE Docusate Sodium (COLACE) 100 MG BID PO (DC) Ranolazine (RANEXA 500MG TAB) 500 MG Q12HR PO Al Hydrox/Mg Hydrox/Simethicone (MYLANTA) 30 ML Q4H PRN PRN PO Hydralazine HCl (APRESOLINE) 50 MG Q6H PRN PRN P O Amlodipine Besylate (NORVASC) 10 MG DAILY PO Aspirin (ASPIRIN) 81 MG DAILY PO (DC) Famotidine (PEPCID) 20 MG DAILY PO Losartan Potassium (COZAAR) 50 MG DAILY PO Prednisone (predniSONE) 2 MG C BK PO Atorvastatin Calcium (LIPITOR) 10 MG BEDTIME PO (DC) Prednisone (predniSONE) 1 MG BEDTIME PO Acetaminophen (TYLENOL EXTRA STRENGTH) 500 MG Q4 H PRN PRN PO Atropine Sulfate (ATROPINE SULFATE 0.1MG/ML SYR) 0.5 MG ASDIR PRN IV Sodium Chloride (SODIUM CHLORIDE 0.9%) 500 ML DIR PRN IV General appearance: awake, no acute distress, no respiratory distress Head/Eyes: atraumatic, clear cornea, normocephal ic, PERRL ENT: moist mucosal membranes, normal nose, jessica l sinus Neck: no JVD, no masses or swelling Cardiovascular: normal capillary refill, normal heart sounds, regular rate and rhythm Respiratory: aerating well, clear to auscultatio n, symmetric expansion, no distress Abdomen: soft, non-tender, no distention, no gua rding, no rebound Genitourinary: urinary catheter, no bladder dist ention Extremities: moves all, no clubbing, no cyanosis , no edema Neuro/INSURANCE WRITER: no motor deficits Psychiatry: normal affect Results Findings/Data: Laboratory Tests 08/02/22 0427: [Embedded Image Not Available] Laboratory Tests 08/02 08/02 08/02 08/02 1544 1417 1318 1243 Blood Gas O2 Saturation (90 - 100 %) 96.4 99.9 99.9 100.0 ABG pH (7.35 - 7.45) 7.300 L 7.391 7.383 7.404 ABG pCO2 (35.0 - 45 mmHg) 38.2 36.7 42.0 41.3 ABG pO2 (80 - 100.0 mmHg) 93.1 254.6 *H 345.2 * H 417.5 *H ABG HCO3 (22.0 - 26.0 MMOL/L) 18.8 L 22.3 25.0 25.8 ABG Total CO2 20.0 23.4 26.3 27.1 ABG Base Excess (-4.0 - 4.0 MMOL/L) -7.6 L -2.4 -0.1 1.0 ABG Hematocrit (37.5 - 50.7 %) 33 L 27 L 28 L 2 8 L ABG Hemoglobin (12.5 - 16.9 G/DL) 11.1 L 9.0 L 9.5 L 9.7 L Sodium (134 - 147 mmol/L) 141 139 135 137 Potassium (3.4 - 5.0 mmol/L) 3.4 4.3 5.6 H 5.1 H Chloride (100 - 108 mmol/L) 108 105 105 104 Ionized Calcium (1.12 - 1.32 MMOL/L) 1.15 1.26 1.07 L 1.03 L Lactic Acid (0.9 - 1.7 mmol/l) 2.3 H 1.2 0.6 L 08/02 08/02 1208 1035 Blood Gas O2 Saturation (90 - 100 %) 100.0 100.0 ABG pH (7.35 - 7.45) 7.338 L 7.361 ABG pCO2 (35.0 - 45 mmHg) 42.3 42.7 ABG pO2 (80 - 100.0 mmHg) 453.7 *H 494.1 *H ABG HCO3 (22.0 - 26.0 MMOL/L) 22.8 24.2 ABG Total CO2 24.1 25.5 ABG Base Excess (-4.0 - 4.0 MMOL/L) -3.0 -1.4 ABG Hematocrit (37.5 - 50.7 %) 38 47 ABG Hemoglobin (12.5 - 16.9 G/DL) 13.1 16.0 Sodium (134 - 147 mmol/L) 137 141 Potassium (3.4 - 5.0 mmol/L) 4.0 4.0 Chloride (100 - 108 mmol/L) 104 104 Ionized Calcium (1.12 - 1.32 MMOL/L) 1.15 1.22 Lactic Acid (0.9 - 1.7 mmol/l) < 0.3 L < 0.3 L Laboratory Tests 08/02 08/02 08/02 08/02 08/02 1544 1417 1318 1243 1208 Chemistry POC Creatinine (0.8 - 1.3 mg/dL) 0.9 0.8 0.8 0. 7 L 0.7 L POC Glucose (mg/dL) (70 - 110 MG/DL) 187 H 187 H 184 H 142 H 135 H 08/02 08/02 1035 0427 Chemistry Sodium (134 - 147 mEq/L) 137 Potassium (3.4 - 5.0 mEq/L) 4.3 Chloride (100 - 108 mEq/L) 104 Carbon Dioxide (21 - 33 mEq/l) 26 Anion Gap (0 - 20) 11 BUN (7 - 18 mg/dL) 13 Creatinine (0.6 - 1.3 mg/dL) 0.9 POC Creatinine (0.8 - 1.3 mg/dL) 0.8 Glomerular Filtr Rate (80 - 90) 93.0 H Glucose (70 - 110 mg/dL) 97 POC Glucose (mg/dL) (70 - 110 MG/DL) 158 H Calcium (8.0 - 10.5 mg/dL) 8.7 Triglycerides (40 - 150 mg/dL) 129 Cholesterol (<200 mg/dL) 172 LDL Cholesterol Measurd (0 - 100 mg/dL) 129.0 H HDL Cholesterol (32 - 72 mg/dL) 39.7 Cholesterol/HDL Ratio (3.43 - 4.97 RATIO) 4.33 Laboratory Tests 08/02 08/02 08/02 08/02 08/02 1419 1320 1244 1223 1210 Coagulation Activated Coag Time (74 - 137 SEC) 107 588 H 66 6 H 486 H 407 H 08/02 08/02 1035 0427 Coagulation INR (0.8 - 1.2) 1.1 PTT ([place]) (25.0 - 39.5 Seconds) 57.6 H PT Patient/Control Mix (9.3 - 12.9 SECONDS) 11. 8 Activated Coag Time (74 - 137 SEC) 137 Laboratory Tests 08/02 0427 Hematology WBC (4.5 - 11.0 x10 3/uL) 10.1 RBC (4.00 - 5.60 x10 6/uL) 4.45 Hgb (12.5 - 16.9 g/dL) 13.9 Hct (37.5 - 50.7 %) 40.4 MCV (81.0 - 99.0 fL) 90.8 MCH (27.0 - 33.0 pg) 31.2 MCHC (33.0 - 37.0 g/dL) 34.4 RDW (11.5 - 14.5 %) 13.6 Plt Count (150 - 400 x10 3/uL) 204 MPV (7.0 - 9.0 fL) 11.2 H Neut % (Auto) (56.0 - 77.0 %) 56.2 Lymph % (Auto) (14.0 - 32.0 %) 29.5 Stephenson % (Auto) (4.8 - 9.0 %) 10.5 H Eos % (Auto) (0.3 - 3.7 %) 2.9 Baso % (Auto) (0.0 - 2.0 %) 0.5 Neut # (Auto) (2.0 - 7.6 x10 3/uL) 5.68 Lymph # (Auto) (1.0 - 3.8 x10 3/uL) 2.98 Stephenson # (Auto) (0.1 - 0.8 x10 3/uL) 1.06 H Eos # (Auto) (0.0 - 0.2 x10 3/uL) 0.29 H Baso # (Auto) (0.0 - 0.2 x10 3/uL) 0.05 Abs Immat Gran (auto) (0.00 - 0.03 x10 3/uL) 0 .04 H Add Manual Diff NO Immature Gran % (0.0 - 2.0 %) 0.4 Nucleated RBC % (0 - 0 %) 0.0 Nucleated RBCs # (Man) (0.0 - 0.1 x10 3/uL) 0.0 0 Microbiology: 08/01 0848 NASAL: MSSA Surveillance Screen - ORD 08/02 847 NASAL: MRSA DNA Surveillance Screen - ORD Radiology data: Recent Impressions: RADIOLOGY - XR CHEST 1 V 08/02 1456 Report Impression - Status: SIGNED Entered: 08/02/2022 1505 IMPRESSION: No retained surgical needle is seen. Impression By: Johann Childs M.D. Results: labs reviewed, vital signs reviewed, rh ythm personally rev'd, x-ray personally reviewed, current med profile rev'd Diagnosis, Assessment Plan Diagnosis, Assessment Plan Consultants: cardiology, cardiovascular surgery Plan discussed with: consultants, nurse, interdi sc care team Critical care time: Minutes: 40 Code Status/Resusc. Discussion Resuscitation discussion: Discussed with: family Code status: full code Free text DxA P: Problem List: Chest pain/Angina Exertional dyspnea Coronary artery disease Status post CABG x5 and ILAA Elective ventilatory dependence for acute pulmon oli insufficiency following major cardiothoracic surgery Acute blood loss anemia cardiogenic shock Hyperglycemia Assessment and Plan: Patient was brought to the C [facility] room #2207 status post CABG x5 and ligation of left atrial appendage, extubated in the OR, on e pinephrine at 4 mcg and norepinephrine at 2 mcg. Pat ient was a grade 1 view easy intubation with 8.0 ET tube. Received rocuronium and etomidate for RSI. EF 55%. PA pressures 24 mmHg and cardiac index 2.2-2.6. Patient received intr avenous calcium and magnesium intraoperatively. Had 600 mL of urine output and 1 L of crystalloids were given. Patient received 720 mL of Cell Saver. No products or autologous transfusion was performed. Postop hemoglobin was 9.0 g/dL and ACT was 107. Patient is on insulin at 2 units/h and b lood glucose is 180 mg/dL. Patient was on chronic prednisone therapy with prednisone 3 mg p.o. daily for temporal arteritis since 2017. And received hydrocortison e 100 mg IV x1 dose. He is able to move all 4 extremiti es and follows commands. Left pleural output is 50 mL and mediastinal output is 35 mL. Patient has bilaterally symmetrical and equal pupils on both sides. He received paraster nal block for pain control. Vital signs are stable with a heart rate of 80 sinus rhythm, blood pressure 128/ 57 mmHg, pulse ox 96% on facemask and PA pressur es 28/12 mmHg. He is awake, interactive, following commands and moving all 4 extremities. Patient is full code. Mary Daly is a 66-year gentleman with past med ica history significant for coronary artery disease stat us post PCI in the past, with most recent in July 07, 2022, history of temporal arteritis on chronic p rednisone since 2017, diverticulitis, gout, hypertension, hyperlipidem ia. Strong family history of CAD. Has history of diabetes. He present ed with exertional shortness of breath with occasional chest pain over the past several weeks. Cardiac work-up and left heart cath revealed mul tivessel coronary disease. CT surgery was consulted for CABG evaluation and patient underwent surger y on 08/02/2022. Postop day 0 after CABG x5 and ILAA No acute events for reported in the OR Patient was easy intubation and induction using rocuronium and etomidate EF 55% PA pressures 24 mm of Hg Cardiac index 2.2 to 2.6 Patient is currently on epin ephrine at 4 mcg and norepinephrine at 2 mcg that is being weaned Blood pressure is stable Patient received 1 L of crystalloid and 720 mL o f Cell Saver No autologous transfusion or products were used Had 600 mL of urine output Chest tube output is minimal at 50 mL in the lef t pleural and 35 mL in the mediastinal chest tubes Patient is able to move all 4 extremities and fo llow command Pain control with parasternal block Patient will be on oral narcotic regimen for javier n control Vital signs are stable with heart rate 80, blood pressure 128/57 mmHg and pulse ox 96% on facemask Follow chest tube output Chest x-ray was personally viewed by me and line s and tubes are in position Patient has been on chronic steroid therapy sin e 2016, received stress dose steroids with hydrocortisone 100 mg IV Avoid further steroid dosing unless evidence of adrenal crisis SCDs for DVT prophylaxis Sterling Hidaglo MD [facility] 08/02/2022 3.57 PM Electronically Signed by Sterling Hidalgo MD on 07/22 04/15 at 1626 RPT #:[id number] END OF REPORT 2022-08-02 14:31:00-00:00 [id number] [place] [address] PATIENT NAME: MARY DALY ADMIT DATE: 07/30/22 ACCOUNT NO: [id number] ROOM NO: [facility] AGE: 66 REPORT TYPE: OPERATIVE REPORT SEX: M ADMITTING PHYSICIAN:Anthony Loaiza MD ATTENDING PHYSICIAN:Anthony Loaiza MD OPERATION DATE: 08/02/2022 PREOPERATIVE DIAGNOSES: Coronary artery disease. POSTOPERATIVE DIAGNOSES: Coronary artery disease . PROCEDURES: 1. Coronary artery bypass graft surgery x4 (MITCHELL to LAD, saphenous vein to first marginal, saphenous vein to second margina l, saphenous vein to PDA). 2. Amputation of left atrial appendage. 3. Endoscopic vein harvest (left greater sapheno us vein). 4. Posterior pericardiotomy. SURGEON: Ludin Mccurdy M.D. ROLL TABLE OPERATOR: Mary Briggs. ANESTHESIOLOGIST: Dr. Brendon Copeland. ANESTHESIA: General endotracheal anesthesia. ESTIMATED BLOOD LOSS: 100 mL. INDICATIONS: Mr. Daly is a 66-year-old gentlem an with severe triple-vessel coronary artery disease and slightly impaired LV function. After due preop counseling, he was brought to the operating room today for surgical revascularization. FINDINGS: 1. Vein was harvested from the left leg using en doscopic vein harvest technique. Vein was marginal quality, measuring about 3 to 4 mm in size. 2. Osteoporotic sternum. 3. Good quality MITCHELL measuring 2 mm in size with excellent flow. 4. Normal pericardium without any intrapericardi al adhesions and minimal intrapericardial fluid. 5. LAD 2 mm, good quality artery. 6. First marginal 2 mm, good quality artery. 7. Second marginal 2 mm, good quality artery. 8. PDA 2 mm, good quality artery. 9. Left atrial appendage was amputated half a cm from the base. This was then repaired with two layers of running pledgeted 4- 0 Prolene suture. 10. Posterior pericardiotomy was performed by ex cising 2 x 2 cm of the posterior pericardium. PATIENT NAME: MARY DALY 2 PROCEDURE IN DETAIL: Mr. Nery andujar was identified in the preoperative holding area and brought to the OR and pl aced supine on the operating table. After induction of general endotracheal anesthesia, Guardado cathet er, radial arterial line, and antibiotics were placed. The patient's anterior torso and both lower extremities were prepped and draped in standard surgical fashion. Vein was harvested from the left leg using endosc opic vein harvest technique. Following harvesting, subcutaneous tissue was closed with 2-0 Vicryl and skin with 4-0 Vicryl. Simultaneously, median sternotomy was pe rformed. The left internal mammary artery was harvested. The patient was he parinized. Pericardium was opened longitudinally. Pericardial well was crea gigi. Cardiopulmonary bypass was instituted using ascending aorta and 3-stage cannula in the right atrium. The patient was cooled to 34 degrees centigrade. Crossclamp was applied and the heart was arrested with 1.5 liters of antegrade cold blood cardioplegia. Cardioplegia was repeated at interval of 10 minutes all throughout duration of crossclamp. We began by exploring the PDA. This was slightly diseased artery measuring 2 mm in size. Arteriotomy was performe d with a Bayard blade and extended with Richard scissors. A segment of previ ously harvested reverse saphenous vein was anastomosed in end-to -side manner using 7-0 Prolene suture. Vein graft to PDA was brought along the right si de of the heart and sized. Aortotomy was performed on the right aspect of t he aorta using 4 mm punch. Proximal anastomosis of the PDA graft was then p erformed using running 6-0 Prolene suture. Next, the le ft atrial appendage was amputated half a centimeter from the base. This was then repaired wi th two layers of running pledgeted 4-0 Prolene suture. Next, the second marginal was ex plored. This was a good quality artery measuring 2 mm in size. A rteriotomy was performed with a Bayard blade and extended with Richard scissors. A segmen t of previously harvested reverse saphenous vein was a nastomosed in end-to-side manner using manner using 7-0 Prolene suture. Vein graft to second margina l was brought along the left side of the heart and sized. Aortotomy w as performed on the left aspect of the aorta using 4 mm punch. Proximal anastomosis of the second marginal graft was then performed using running 6-0 Prolene suture. Next, the first marginal was explored. This was a good quality artery, measur ing 2 mm in size. Arteriotomy was performed with a Bayard blade and extended w ith Richard scissors. A segment of previously harvested reve rse saphenous vein was anastomosed in an end-to-side manner using 7-0 Prolene suture. Vein graft to t he first marginal was brought along the left side of the h eart and sized. Aortotomy was performed on the left aspect of the aorta using 4 mm punch. Proximal a nastomosis of the first marginal graft was then performed using 6-0 Prol lupe suture. Rewarming was commenced at this stage. Next, the diagonal was explored. This was smallish artery and hence was not grafted. Finally, LAD w as explored. This was good quality artery, measuring 2 mm in size. Arteriotomy was performed with a Bayard blade and extended with Richard scissors. MITCHELL was anastomosed in end-to-side manner using running 8-0 Prolene suture. MITCHELL pedicle was tacked to epicardium using two interrupted 6-0 Prolene sutures. A sli t was made in the pericardium on the left aspect, so as to accommodate the AMIN A. Careful de-aeration was performed and the crossclamp was released. One v entricular wire was placed. A 28-Indian chest tube was placed in the mediastin um, 28-angled chest tube was placed in the left pleural space. Once the patie nt was at temperature, he was weaned off cardiopulmonary bypass with minimal i notropic support. Heparin was reversed with protamine. Decannulation was uneve ntful. After confirming hemostasis, the chest was closed in laye rs using stainless steel wires for the sternum, #1 Vicryl for the fascia, 2-0 Vicryl fo r subcutaneous tissue and 4-0 Vicryl for the skin. The patient was transferred to intensive care unit PATIENT NAME: MARY DALY 2 intubated in stable condition. Dictated By: Ludin Mccurdy MD Date Dictated: 08/02/2022 14:31:40 Date Transcribed: 08/02/2022 15:25:55 AALIYAH/CARMELLA Receipt ID: [id number] Authenticated and Edited by Kenneth Mccurdy MD On 08/04/22 9:28:47 AM at 0931 PATIENT NAME: MARY DALY 2 2022-08-02 14:25:00-00:00 [facility] Brief Op Note REPORT#:[id number] REPORT STATUS: Signed DATE:08/02/22 TIME: 1425 PATIENT: MARY DALY UNIT #: [id number] ROOM/BED: [place] [address] : 53 AGE: 66 SEX: M ATTEND: Marcella Loaiza od, MD ADM AUTHOR: Ludin Mccurdy MD * ALL edits or amendments must be made on the [employer]/computer document * See Addendum Op/Inv Proc Note - Brief Pre-procedure diagnosis: CAD Post-procedure diagnosis: same as pre procedure dx Procedures performed: CABG x 4 (MITCHELL-LAD, SVG-OM1, SVG-OM2, SVG-PDA) ALAA EVH (LGSV) Posterior pericardiotomy Primary Surgeon: Calli Tape Machine Tailer(s): Brigitte Findings: LAD-2mm Complications: none Estimated blood loss in ml's: 100 cc Specimens removed/altered: XIMENA at 1427 Addendum 1: 08/02/22 1710 by Mary Briggs MD I assisted Dr Mccurdy with t he tyson features of this operation including coronary dissection, CABGs and LAAA Mary Briggs MD Electronically Signed by Mary Briggs MD on 07/22 04/15 at 1711 RPT #:[id number] END OF REPORT 2022-08-02 11:51:00-00:00 [id number] [place] [address] PATIENT NAME: MARY DALY ADMIT DATE: 07/30/22 ACCOUNT NO: [id number] ROOM NO: [id number] AGE: 66 REPORT TYPE: PULMONARY FUNCTION REPORT SEX: M ADMITTING PHYSICIAN:Anthony Loaiza MD ATTENDING PHYSICIAN:Anthony Loaiza MD STUDY DATE: 08/02/2022 SPIROMETRY: 1. FVC is 65% of predicted. FEV1 is 74% of predi cted. Ratio is 84. 2. Spirometry is suggestive of interstitial lung disease,s restrictive impairment. If clinically needed, I recommend fu ll PFT. Dictated By: Freddy Ji MD Date Dictated: 08/02/2022 11:51:07 Date Transcribed: 08/02/2022 12:06:12 /CARMELLA Receipt ID: [id number] Authenticated by FREDDY JI MD On 08/06/2022 01:31:51 PM Electronically Signed by Freddy Ji MD on at 0131 PATIENT NAME: MARY DALY 2 2022-08-02 08:40:00-00:00 [facility] ([facility]) Hospitalist Progress Note REPORT#:[id number] REPORT STATUS: Signed DATE:08/02/22 TIME: 839 PATIENT: MARY DALY UNIT #: [id number] ROOM/BED: 2207-1 : 53 AGE: 66 SEX: M ATTEND: Marcella Loaiza od, MD ADM AUTHOR: Luther Martin [employer] * ALL edits or amendments must be made on the [employer]/computer document * Luther Martin 08/02/22 0840: Subjective Chief complaint: NPO for CABG Nidhi had a episode of Severe CP. He is on heparin drip. His CP is improved. No fever, chills. NO N/v/d. Review of Systems Constitutional: Reports: fatigue, generalized weakness. Eyes: Denies: discharge, visual loss/blurred, eye pain , photophobia. Respiratory: Denies: hemoptysis, parox nocturnal dyspnea, ple urisy, pleuritic pain, productive cough (sputum), wheezing. Cardiovascular: Denies: PETERSEN (dyspnea on exertion), orthopnea, pa lpitations. GI: Denies: dysphagia, GERD, hematochezia. : Denies: flank pain, hematuria, testicular pain, urgency, urinary retention. Musculoskeletal: Denies: extremity pain, joint pain, lumbar pain, myalgias. Heme: Denies: bleeding, bruising. Psych: Denies: anxiety, change in mental status, hostil e, stress. Objective General VS/I O: Vital Signs: Date Time Temp Pulse Resp B/P B/P Pulse O2 O2 F low FiO2 Mean Ox Delivery Rate 08/02 0700 58 25 137/66 95 93 08/02 0500 49 13 129/69 93 90 08/02 0400 52 14 126/74 95 91 08/02 0300 53 135/74 99 89 08/02 0200 54 14 109/52 75 91 08/02 0100 50 15 125/56 81 91 08/02 0000 50 14 134/58 84 91 08/01 2300 56 22 132/65 93 92 08/01 2200 56 31 150/72 103 93 08/01 2100 61 29 128/65 89 92 08/02 1999 36.7 61 22 158/76 109 91 08/01 1945 97 Room air 08/01 1900 61 21 147/71 101 89 08/01 1500 59 22 132/77 94 92 08/01 1423 58 27 125/72 94 94 08/01 1300 55 15 126/62 88 92 08/01 1200 60 17 141/69 95 93 08/01 1100 56 22 133/70 97 92 08/01 1032 60 41 125/86 101 93 08/01 0901 74 28 149/65 94 92 24 hour I O ending at 0700: 08/02 0700 08/01 1900 Intake Total 880.00 Output Total 800 950 Balance -800 -70.00 Intake, IV 240.00 Intake, Oral 640 Output, Urine 800 950 PATIENT WEIGHT: Weight (lb): 188 Weight (oz): 0.87 Weight (kg): 85.300 Medications: Active Meds + DC'd Last 24 Hrs Papaverine HCl (PAPAVERINE HCL) 0 .STK-MED ONE I V (DC) Acetaminophen (TYLENOL EXTRA STRENGTH) 1,000 MG PREOP ONCALL PO (CKD) Cefazolin Sodium (KEFZOL OR ANCEF) 2 GM PREOP WINTER INTERN IV (CKD) Gabapentin (NEURONTIN) 200 MG PREOP ONCALL PO (C KD) Metoprolol Tartrate (LOPRESSOR) 6.25 MG ONCE ONE PO (DC) Sodium Chloride (SODIUM CHLORIDE) 20 ML ASDIR IV Vancomycin HCl (VANCOMYCIN HCL) 1,250 MG PREOP O NCALL IV (CKD) Sodium Chloride (SODIUM CHLORIDE 0.9%) 250 ML Verapamil HCl (ISOPTIN) 16.6 MG .Q24H ONE IV (CK D) Heparin Sodium (Porcine) (HEPARIN SODIUM) 1,660 UNIT Sodium Bicarbonate (SODIUM BICARBONATE) 0.7 ML Nitroglycerin/Dextrose (NITROGLYCERIN 50MG/D5W 250ML) 8.3 MG Lactated Ringer's (LACTATED RINGERS) 949.5 ML Magnesium Sulfate (MAGNESIUM SULFATE 2GM/SWFI 50 ML) 50 ML ONCE ONE IV ( DC) Nebivolol (BYSTOLIC) 10 MG BEDTIME PO Nitroglycerin/Dextrose (NITROGLYCERIN 50,000MCG/ D5W 250ML) 250 ML ASDIR IV Heparin Sodium (HEPARIN 5000 UNITS/ML) 0 ASDIR P RN IV Heparin Sodium (Porcine) (HEPARIN 25,000 UNITS/ 1/2NS 500ML) 500 ML ASDIR IV (CKD) Mupirocin (BACTROBAN 2% 22 GM OINTMENT) 1 APPLIC BID NASAL Carboxymethylcellulose Sodium (REFRESH TEARS) 1 DROP QID PRN EACH EYE Docusate Sodium (COLACE) 100 MG BID PO Ranolazine (RANEXA 500MG TAB) 500 MG Q12HR PO Al Hydrox/Mg Hydrox/Simethicone (MYLANTA) 30 ML Q4H PRN PRN PO Hydralazine HCl (APRESOLINE) 50 MG Q6H PRN PRN P O Amlodipine Besylate (NORVASC) 10 MG DAILY PO Aspirin (ASPIRIN) 81 MG DAILY PO Famotidine (PEPCID) 20 MG DAILY PO Losartan Potassium (COZAAR) 50 MG DAILY PO Prednisone (predniSONE) 2 MG C BK PO Atorvastatin Calcium (LIPITOR) 10 MG BEDTIME PO Prednisone (predniSONE) 1 MG BEDTIME PO Acetaminophen (TYLENOL EXTRA STRENGTH) 500 MG Q4 H PRN PRN PO Atropine Sulfate (ATROPINE SULFATE 0.1MG/ML SYR) 0.5 MG ASDIR PRN IV Sodium Chloride (SODIUM CHLORIDE 0.9%) 500 ML DIR PRN IV Dietitian nutrition assessment The data set between the solid lines has been im ported from the dietitian's assessment. BMI Calculated: 27.0 Nutrition related diagnosis: Nutrition diagnosis details: Nutrition problem: Nutrition etiology: Nutrition signs and symptoms: Nutrition prescription: Dietitian name: Assessment completed: Physical Exam General appearance: alert, awake, oriented Head/Eyes: atraumatic, normocephalic, PERRLA Cardiovascular: normal capillary refill, normal heart sounds, regular rate rhythm Respiratory: aerating well, symmetric expansion, no distress Abdomen: non-tender, normal bowel sounds, soft Genitourinary: no bladder distention, no flank p ain, no urinary catheter Extremities: no calf tenderness, no clubbing, no cyanosis Musculoskeletal: no CVA tenderness, no muscle sp asm Neuro/INSURANCE WRITER: alert, oriented X 3, CNII-XII intact Skin: dry, intact Results Findings/Data: Laboratory Tests 08/02 426 Chemistry Sodium (134 - 147 mEq/L) 137 Potassium (3.4 - 5.0 mEq/L) 4.3 Chloride (100 - 108 mEq/L) 104 Carbon Dioxide (21 - 33 mEq/l) 26 Anion Gap (0 - 20) 11 BUN (7 - 18 mg/dL) 13 Creatinine (0.6 - 1.3 mg/dL) 0.9 Glomerular Filtr Rate (80 - 90) 93.0 H Glucose (70 - 110 mg/dL) 97 Calcium (8.0 - 10.5 mg/dL) 8.7 Triglycerides (40 - 150 mg/dL) 129 Cholesterol (<200 mg/dL) 172 LDL Cholesterol Measurd (0 - 100 mg/dL) 129.0 H HDL Cholesterol (32 - 72 mg/dL) 39.7 Cholesterol/HDL Ratio (3.43 - 4.97 RATIO) 4.33 Laboratory Tests 08/02 426 Coagulation INR (0.8 - 1.2) 1.1 PTT (Maverick) (25.0 - 39.5 Seconds) 57.6 H PT Patient/Control Mix (9.3 - 12.9 SECONDS) 11. 8 Laboratory Tests 08/02 426 Hematology WBC (4.5 - 11.0 x10 3/uL) 10.1 RBC (4.00 - 5.60 x10 6/uL) 4.45 Hgb (12.5 - 16.9 g/dL) 13.9 Hct (37.5 - 50.7 %) 40.4 MCV (81.0 - 99.0 fL) 90.8 MCH (27.0 - 33.0 pg) 31.2 MCHC (33.0 - 37.0 g/dL) 34.4 RDW (11.5 - 14.5 %) 13.6 Plt Count (150 - 400 x10 3/uL) 204 MPV (7.0 - 9.0 fL) 11.2 H Neut % (Auto) (56.0 - 77.0 %) 56.2 Lymph % (Auto) (14.0 - 32.0 %) 29.5 Stephenson % (Auto) (4.8 - 9.0 %) 10.5 H Eos % (Auto) (0.3 - 3.7 %) 2.9 Baso % (Auto) (0.0 - 2.0 %) 0.5 Neut # (Auto) (2.0 - 7.6 x10 3/uL) 5.68 Lymph # (Auto) (1.0 - 3.8 x10 3/uL) 2.98 Stephenson # (Auto) (0.1 - 0.8 x10 3/uL) 1.06 H Eos # (Auto) (0.0 - 0.2 x10 3/uL) 0.29 H Baso # (Auto) (0.0 - 0.2 x10 3/uL) 0.05 Abs Immat Gran (auto) (0.00 - 0.03 x10 3/uL) 0 .04 H Add Manual Diff NO Immature Gran % (0.0 - 2.0 %) 0.4 Nucleated RBC % (0 - 0 %) 0.0 Nucleated RBCs # (Man) (0.0 - 0.1 x10 3/uL) 0.0 0 Results: labs reviewed, vital signs reviewed, vi radha signs stable, current med profile rev'd Treatment Prophylaxis Treatment Prophylaxis Oxygen: room air Diagnosis, Assessment Plan Consultants: cardiology, cardiovascular surgery Code status: full code Plan discussed with: patient, admitting physicia n, consultants, nurse Free Text DxA P Notes Free text DxA P notes: Assessment and Plan: - Multivessel CAD. - CP due to CAD. - Hypomagnesemia. - HX of HTN/HLD and CAD. Plan: CVICU. NPO for CABG. He is on Heparin drip. Pain meds. Antiemetics. Continue BB, Lipitor and ASA. Follow labs and repalce as needed. Monitor. Anthony Loaiza 08/02/221811: Attestations Physician Attestation Agree w/findings plan: Patient seen and examined, I agree with the findings and plans as discussed with and documented by Luther Trividi, [employer] Electronically Signed by Luther Martin [employer] on 02/12 at 0843 Electronically Signed by Anthony Loaiza MD on 0 08/02/22 [address] [facility] #:[id number] END OF REPORT 2022-08-01 09:17:00-00:00 [facility] ([facility]) Hospitalist Progress Note REPORT#:[id number] REPORT STATUS: Signed DATE:08/01/22 TIME: 916 PATIENT: MARY DALY UNIT #: [id number] ROOM/BED: [place] [address] : 53 AGE: 66 SEX: M ATTEND: Marcella Loaiza od, MD ADM AUTHOR: Luther Martin [employer] * ALL edits or amendments must be made on the [employer]/computer document * Luther Martin 08/01/22916: Subjective Chief complaint: He had a episode of Severe CP. He is on heparin drip. His CP is improved. No fever, chills. NO N/v/d. Hr stable. BP is stable. Review of Systems Constitutional: Reports: fatigue, generalized weakness. Allergy/Immun: Denies: anaphylaxis, hives, itching, rhinorrhea. Respiratory: Denies: hemoptysis, parox nocturnal dyspnea, pne umonia. Cardiovascular: Denies: PETERSEN (dyspnea on exertion), edema, orthop doug, palpitations, parox nocturnal dyspnea. GI: Denies: anorexia, constipation, diarrhea, dyspha miquel, hematochezia, nausea. : Denies: flank pain, hematuria, testicular pain. Musculoskeletal: Denies: extremity pain, joint pain, myalgias, ne ck pain. Endocrine: Denies: heat intolerance, polydipsia. Neuro: Denies: change in LOC, confusion, focal weakness , gait problem, lightheaded, seizure. Objective General VS/I O: Vital Signs: Date Time Temp Pulse Resp B/P B/P Pulse O2 O2 F low FiO2 Mean Ox Delivery Rate 08/01 0700 57 17 135/76 100 91 08/01 0600 61 23 147/75 104 90 08/01 0501 96 156/81 111 95 06/11 0400 51 12 108/58 80 93 08/01 0300 57 15 122/56 80 94 08/01 0244 56 11 121/58 83 93 08/01 0100 53 16 101/58 76 92 08/01 0007 59 137/84 100 95 07/31 2300 54 23 128/76 97 94 07/31 2200 54 18 122/64 88 96 07/31 2101 50 20 112/59 83 94 07/31 2009 59 134/97 108 96 07/31 2000 36.6 06 1901 55 18 129/88 101 97 07/31 1817 57 25 138/74 100 98 07/31 1701 58 28 122/70 90 98 07/31 1617 56 27 148/88 114 99 07/31 1530 52 15 135/65 91 95 07/31 1525 36.8 52 15 140/69 0.0 94 07/31 1505 140/69 99 07/31 1500 53 13 94 07/31 1220 36.6 55 20 129/62 0.0 95 07/31 1218 58 28 129/62 89 93 24 hour I O ending at 0700: 08/01 0700 07/31 1900 Intake Total 318 Output Total 830 Balance -512 Intake, Oral 200 Intake, Oral 118 Supplement Number 1 Bowel Movements Number Voids 2 Output, Urine 830 Patient 85.3 kg 86.6 kg Weight Weight Bed scale Standing scale Measurement Method PATIENT WEIGHT: Weight (lb): 188 Weight (oz): 0.87 Weight (kg): 85.300 Medications: Active Meds + DC'd Last 24 Hrs Acetaminophen (TYLENOL EXTRA STRENGTH) 1,000 MG PREOP ONCALL PO (CKD) Cefazolin Sodium (KEFZOL OR ANCEF) 2 GM PREOP WINTER INTERN IV (CKD) Gabapentin (NEURONTIN) 200 MG PREOP ONCALL PO (C KD) Metoprolol Tartrate (LOPRESSOR) 6.25 MG ONCE ONE PO Sodium Chloride (SODIUM CHLORIDE) 20 ML ASDIR IV Vancomycin HCl (VANCOMYCIN HCL) 1,250 MG PREOP O NCALL IV (CKD) Sodium Chloride (SODIUM CHLORIDE 0.9%) 250 ML Verapamil HCl (ISOPTIN) 16.6 MG .Q24H ONE IV (CK D) Heparin Sodium (Porcine) (HEPARIN SODIUM) 1,660 UNIT Sodium Bicarbonate (SODIUM BICARBONATE) 0.7 ML Nitroglycerin/Dextrose (NITROGLYCERIN 50MG/D5W 250ML) 8.3 MG Lactated Ringer's (LACTATED RINGERS) 949.5 ML Magnesium Sulfate (MAGNESIUM SULFATE 2GM/SWFI 50 ML) 50 ML ONCE ONE IV ( DC) Nebivolol (BYSTOLIC) 10 MG BEDTIME PO Nitroglycerin/Dextrose (NITROGLYCERIN 50,000MCG/ D5W 250ML) 250 ML ASDIR IV Heparin Sodium (HEPARIN 5000 UNITS/ML) 0 ASDIR PRN IV Heparin Sodium (Porcine) (HEPARIN 25,000 UNITS/ 1/2NS 500ML) 500 ML ASDIR IV (CKD) Heparin Sodium (HEPARIN 5000 UNITS/ML) 4,000 UNI T ONCE STA IV (DC) Mupirocin (BACTROBAN 2% 22 GM OINTMENT) 1 APPLIC BID NASAL Carboxymethylcellulose Sodium (REFRESH TEARS) 1 DROP QID PRN EACH EYE Docusate Sodium (COLACE) 100 MG BID PO Ranolazine (RANEXA 500MG TAB) 500 MG Q12HR PO Al Hydrox/Mg Hydrox/Simethicone (MYLANTA) 30 ML Q4H PRN PRN PO Hydralazine HCl (APRESOLINE) 50 MG Q6H PRN PRN P O Amlodipine Besylate (NORVASC) 10 MG DAILY PO Aspirin (ASPIRIN) 81 MG DAILY PO Famotidine (PEPCID) 20 MG DAILY PO Losartan Potassium (COZAAR) 50 MG DAILY PO Prednisone (predniSONE) 2 MG C BK PO Atorvastatin Calcium (LIPITOR) 10 MG BEDTIME PO Nebivolol (BYSTOLIC) 20 MG BEDTIME PO (DC) Prednisone (predniSONE) 1 MG BEDTIME PO Acetaminophen (TYLENOL EXTRA STRENGTH) 500 MG Q4 H PRN PRN PO Atropine Sulfate (ATROPINE SULFATE 0.1MG/ML SYR) 0.5 MG ASDIR PRN IV Sodium Chloride (SODIUM CHLORIDE 0.9%) 500 ML DIR PRN IV Dietitian nutrition assessment The data set between the solid lines has been im ported from the dietitian's assessment. BMI Calculated: 27.0 Nutrition related diagnosis: Nutrition diagnosis details: Nutrition problem: Nutrition etiology: Nutrition signs and symptoms: Nutrition prescription: Dietitian name: Assessment completed: Physical Exam General appearance: alert, awake, oriented Head/Eyes: atraumatic, normocephalic, PERRLA Cardiovascular: normal capillary refill, normal heart sounds, regular rate rhythm Respiratory: aerating well, symmetric expansion, no distress Abdomen: non-tender, normal bowel sounds, soft Genitourinary: no bladder distention, no flank p ain, no urinary catheter Extremities: no calf tenderness, no clubbing, no cyanosis Musculoskeletal: no CVA tenderness, no muscle sp asm Neuro/INSURANCE WRITER: alert, oriented X 3, CNII-XII intact Skin: dry, intact Results Findings/Data: Laboratory Tests 08/01 409 Chemistry Sodium (134 - 147 mEq/L) 138 Potassium (3.4 - 5.0 mEq/L) 4.3 Chloride (100 - 108 mEq/L) 108 Carbon Dioxide (21 - 33 mEq/l) 26 Anion Gap (0 - 20) 8 BUN (7 - 18 mg/dL) 11 Creatinine (0.6 - 1.3 mg/dL) 0.9 Glomerular Filtr Rate (80 - 90) 93.0 H Glucose (70 - 110 mg/dL) 98 Calcium (8.0 - 10.5 mg/dL) 8.6 Phosphorus (2.5 - 4.9 MG/DL) 3.7 Magnesium (1.80 - 2.40 mg/dL) 1.96 Laboratory Tests 08/01 08/01 07/31 07/31 07/31 0641 0042 1658 1658 1019 Coagulation INR (0.8 - 1.2) 1.0 PTT ([place]) (25.0 - 39.5 Seconds) 58.7 H 58.9 H 81.9 H 31.4 PT Patient/Control Mix (9.3 - 12.9 11.1 SECONDS) Plt P2Y12 React Units (182 - 335 PRU) 191 Laboratory Tests 08/01 07/31 0410 1019 Hematology WBC (4.5 - 11.0 x10 3/uL) 10.1 10.6 RBC (4.00 - 5.60 x10 6/uL) 4.51 4.79 Hgb (12.5 - 16.9 g/dL) 14.4 15.5 Hct (37.5 - 50.7 %) 40.4 43.3 MCV (81.0 - 99.0 fL) 89.6 90.4 MCH (27.0 - 33.0 pg) 31.9 32.4 MCHC (33.0 - 37.0 g/dL) 35.6 35.8 RDW (11.5 - 14.5 %) 13.6 13.7 Plt Count (150 - 400 x10 3/uL) 220 248 MPV (7.0 - 9.0 fL) 10.9 H 10.6 H Neut % (Auto) (56.0 - 77.0 %) 58.6 59.3 Lymph % (Auto) (14.0 - 32.0 %) 29.2 25.7 Stephenson % (Auto) (4.8 - 9.0 %) 9.5 H 11.8 H Eos % (Auto) (0.3 - 3.7 %) 2.1 2.2 Baso % (Auto) (0.0 - 2.0 %) 0.4 0.6 Neut # (Auto) (2.0 - 7.6 x10 3/uL) 5.90 6.30 Lymph # (Auto) (1.0 - 3.8 x10 3/uL) 2.94 2.73 Stephenson # (Auto) (0.1 - 0.8 x10 3/uL) 0.96 H 1.25 H Eos # (Auto) (0.0 - 0.2 x10 3/uL) 0.21 H 0.23 H Baso # (Auto) (0.0 - 0.2 x10 3/uL) 0.04 0.06 Abs Immat Gran (auto) (0.00 - 0.03 x10 3/uL) 0. 02 0.04 H Add Manual Diff NO NO Immature Gran % (0.0 - 2.0 %) 0.2 0.4 Nucleated RBC % (0 - 0 %) 0.0 0.0 Nucleated RBCs # (Man) (0.0 - 0.1 x10 3/uL) 0.0 0 0.00 Results: labs reviewed, vital signs reviewed, vi radha signs stable, current med profile rev'd Treatment Prophylaxis Treatment Prophylaxis Oxygen: room air Diagnosis, Assessment Plan Consultants: cardiology, cardiovascular surgery Code status: full code Plan discussed with: patient, admitting physicia n, consultants, nurse Free Text DxA P Notes Free text DxA P notes: Assessment and Plan: - Multivessel CAD. - CP due to CAD. - Hypomagnesemia. - HX of HTN/HLD and CAD. Plan: CVICU. He is on Heparin drip. Will replace mag. Will go for CBAG Tuesday. Pain meds. Antiemetics. Continue BB, Lipitor and ASA. Follow labs and repalce as needed. Monitor. Anthony Loaiza 08/02/22 1812: Attestations Physician Attestation Agree w/findings plan: Patient seen and examined, I agree with the findings and plans as discussed with and documented by Luther Montiel NP Electronically Signed by Luther Martin NP on 01/13 at 0919 Electronically Signed by Anthony Loaiza MD on 0 08/02/22 at 1836 RPT #:[id number] END OF REPORT 2022-08-01 08:41:00-00:00 [facility] REPORT#:[id number] REPORT STATUS: Signed DATE:08/01/22 TIME: 840 PATIENT: MARY DALY UNIT #: [id number] ROOM/BED: [place] [address] : 53 AGE: 66 SEX: M ATTEND: Marcella Loaiza od, MD ADM AUTHOR: Rosalind Mendez Physic * ALL edits or amendments must be made on the [employer]/computer document * Subjective Chief complaint: Chest Pains, CAD. Review of Systems Constitutional: Denies: fatigue, fever, generalized weakness. Skin: Denies: rash, swelling. Allergy/Immun: Denies: itching, rhinorrhea. ENT: Denies: earache, hearing loss. Respiratory: Denies: SOB, wheezing. Cardiovascular: Denies: edema, orthopnea. GI: Denies: constipation, diarrhea. : Denies: dysuria, hematuria. Musculoskeletal: Denies: joint pain, joint swelling. Heme: Denies: bleeding, bruising. Neuro: Denies: confusion. Psych: Denies: anxiety, confusion. All systems rev neg: except as marked Objective Physical Exam General appearance: alert, awake, oriented HEENT: mucosal membranes moist Neck: full range of motion, non-tender Cardiovascular: BP/pulses equal bilat., regular rate rhythm Respiratory: aerating well, clear to auscultatio n Abdomen: soft, non-tender Extremities: dry, moves all Musculoskeletal: full range of motion, painless range of motion Neuro/INSURANCE WRITER: alert, oriented X 3 Skin: dry, intact Diagnosis, Assessment Plan Free Text A P: This is a 66-year gentleman with past medical history of coronary artery disease status post PCI in the past, with most recent in July 07, 2022, history of temporal arteritis on chronic prednisone since 2 017, diverticulitis, gout, hypertension, hyperlipidemia. The patient reports a histor y of exertional shortness of breath with occasional chest pain over the past several weeks. He underwent cardiac work-up with his cardiologi st and left heart cath was performed yesterday. This revealed multivessel CAD. CV surgery consulted for evaluation for coronary bypass graft. The patient reports a histor y of diabetes, diet controlled for the past several years. Patient denies any history of smoking. Patient admits to drinking 1 alcoholic beverage per day Patient has a strong family history of coronary artery disease with coronary bypass graft surgery in his brother Patient continues to take prednisone 3 mg daily for history of temporal arteritis in 2017 Assessment/plan 1. Coronary artery disease Previous PCI with most recent June 2022, hold Pl avix in preparation for surgery. 2. Hypertension 3. Hyperlipidemia 4. Temporal arteritis in 2017 Continues on prednisone 3 mg We will begin work-up for coronary bypass graft surgery. Patient was seen in exam by Dr. Mccurdy. Further recommendations to follow as work-up und erway Thank you for this kind consultation 07/29/22 Patient resting comfortable, denies complaint Patient received Plavix 75 m g on 07/28/2022 , will obtain repeat platelet response to Plavix test in the a.m. Respiratory: On room air Cardiac: Remains sinus rhythm Carotid Doppler shows no significant carotid art jorge stenosis Vein mapping complete Labs reviewed shows WBCs elevated 16 Urinalysis negative Neurology consult for history of temporal arteri tis, appreciate input We will repeat platelet response to Plav ix. Possibly plan for CABG in the a.m. Patient was seen and examined by 07/30/22 Patient resting comfortable. Denies complaints. Respiratory: On room air 100% Cardiac: Sinus rhythm Last recieved plavix on 07/28/22, Platelet respons e to PLavix this am= 157 Will plan for surgery next week. Neurology eval underway Patient was seen and examined by Dr. Mccurdy Work-up for coronary artery bypass graft surgery undergoing. Timing of surgery pending 07/31/22 Patient resting comfortable. Denies complaints. Respiratory: On room air 100% Cardiac: Sinus rhythm Patient recieved plavix on 07/28/22, Will repeat p latelet response on Tuesday. Will plan for surgery next week Neurology following. Continue steroids for Hx of temporal arteritis. Carotids show no significant dz, CT head complete No flow-limiting stenosis or occlusion along ma daisy intracranial arterial vessels. No acute intracranial process nor bony injury UA negative, HGa1c 6.2 Patient was seen and examined by Dr. Carmella carmen. Plan repeat platelet response to Plavix in the a.m. Plan for CABG on Tuesday08/01/22 Patient transferred to CVICU last night due to chest pains, started on heparin drip per protocol Currently denies any discomfort or chest pains. Alert and oriented x3 Respiratory: On room air Cardiac: Remains sinus rhythm Platelet response to Plavix 191 Patient has been seen and evaluated by neurology Work-up for coronary artery bypass graft is comp lete. Plan for surgery tomorrow. Patient was seen and examined by Dr. Carmella carmen. Plan of care discussed with team Consultants: cardiology, cardiovascular surgery at 0848 at 1112 RPT #:[id number] END OF REPORT 2022-08-01 08:33:00-00:00 [facility] Cardiology Progress Note REPORT#:[id number] REPORT STATUS: Signed DATE:08/01/22 TIME: 832 PATIENT: MARY DALY UNIT #: [id number] ROOM/BED: [place] [address] : 53 AGE: 66 SEX: M ATTEND: Marcella Loaiza od, MD ADM AUTHOR: Sharri Noonan [employer] * ALL edits or amendments must be made on the [employer]/computer document * Subjective Chief complaint: no chest pain today Objective General VS/I O: Laboratory Tests 08/01/22 0410: [Embedded Image Not Available] 07/31/22 1019: [Embedded Image Not Available] Current Medications Sig/Cory Start time Last Medication Dose Route Stop Time Status Admin Acetaminophen 1,000 MG PREOP ONCALL 08/02 0500 CKD PO 09/01 0459 Cefazolin Sodium 2 GM PREOP ONCALL 08/02 0500 C KD IV 08/02 2359 Gabapentin 200 MG PREOP ONCALL 08/02 0500 CKD PO 09/01 0459 Metoprolol Tartrate 6.25 MG ONCE ONE 08/02 0500 AC PO 08/02 0501 Sodium Chloride 20 ML ASDIR 08/02 0500 AC IV 09/01 0459 Vancomycin HCl 1,250 MG PREOP ONCALL 08/02 0500 CKD Sodium Chloride 250 ML IV 08/02 2359 Verapamil HCl 16.6 MG .Q24H ONE 08/02 0500 CKD Heparin Sodium 1,660 UNIT IV 08/03 0459 (Porcine) Sodium Bicarbonate 0.7 ML Nitroglycerin/ 8.3 MG Dextrose Lactated Ringer's 949.5 ML Magnesium Sulfate 50 ML ONCE ONE 08/01 0645 DC 08/01 IV 08/01 0844 0659 Nebivolol 10 MG BEDTIME 07/31 2100 AC 07/31 PO 08/30 2058 2034 Nitroglycerin/ 250 ML ASDIR 07/31 1415 AC Dextrose IV 08/30 1414 Heparin Sodium 0 ASDIR PRN 07/31 1000 AC IV 08/30 0959 Heparin Sodium 500 ML ASDIR 07/31 1000 CKD 07/22 0 (Porcine) IV 08/30 0959 1043 Mupirocin 1 APPLIC BID 07/30 2100 AC 08/01 NASAL 08/04 0901 0812 Carboxymethylcellul- 1 DROP QID PRN 07/28 2200 AC 07/28 ose Sodium EACH EYE 08/27 2158 220 Docusate Sodium 100 MG BID 07/28 2099 AC 08/01 PO 08/27 2058 08 Ranolazine 500 MG Q12HR 07/28 2099 AC 08/01 PO 08/27 205 08 Al Hydrox/Mg Hydrox/ 30 ML Q4H PRN PRN 07/28 17 30 AC 07/28 Simethicone PO 08/27 1729 1831 Hydralazine HCl 50 MG Q6H PRN PRN 07/28 1700 A C 07/28 PO 08/27 1659 1840 Amlodipine Besylate 10 MG DAILY 07/28 899 AC 0 08/01 PO 08/27 0859 0810 Aspirin 81 MG DAILY 07/28 899 AC 08/01 PO 08/27 0859 0809 Famotidine 20 MG DAILY 07/28 09 AC 08/01 PO 08/27 0859 0810 Losartan Potassium 50 MG DAILY 07/28 899 AC PO 08/27 0859 0811 Prednisone 2 MG C BK 07/28 08 AC 08/01 PO 08/27 0759 0809 Atorvastatin Calcium 10 MG BEDTIME 07/27 2315 A C 07/31 PO 08/26 2303 2034 Prednisone 1 MG BEDTIME 07/27 2315 AC 07/31 PO 08/26 2314 2034 Acetaminophen 500 MG Q4H PRN PRN 07/27 1600 AC 07/31 PO 08/26 1559 0516 Atropine Sulfate 0.5 MG ASDIR PRN 07/27 1600 AC IV 08/26 1559 Sodium Chloride 500 ML ASDIR PRN 07/27 1600 AC IV 08/26 1559 24 hour I O ending at 0700: 08/01 0700 07/31 1900 Intake Total 318 Output Total 830 Balance -512 Intake, Oral 200 Intake, Oral 118 Supplement Number 1 Bowel Movements Number Voids 2 Output, Urine 830 Patient 85.3 kg 86.6 kg Weight Weight Bed scale Standing scale Measurement Method Vital Signs: Date Time Temp Pulse Resp B/P B/P Pulse O2 O2 F low FiO2 Mean Ox Delivery Rate 08/01 1500 59 22 132/77 94 92 08/01 1423 58 27 125/72 94 94 08/01 1300 55 15 126/62 88 92 08/01 1200 60 17 141/69 95 93 08/01 1100 56 22 133/70 97 92 / 1032 60 41 125/86 101 93 / 0901 74 28 149/65 94 92 / 0801 60 26 164/76 108 93 / 0700 57 17 135/76 100 91 / 0600 61 23 147/75 104 90 06/ 0501 96 156/81 111 95 06/11 0400 51 12 108/58 80 93 06/ 0300 57 15 122/56 80 94 /11 0244 56 11 121/58 83 93 06/11 0100 53 16 101/58 76 92 06/ 0007 59 137/84 100 95 06/10 2300 54 23 128/76 97 94 /10 2200 54 18 122/64 88 96 /10 2101 50 20 112/59 83 94 07/31 2009 59 134/97 108 96 06/10 2000 36.6 06/ 1901 55 18 129/88 101 97 /10 1817 57 25 138/74 100 98 06/10 1701 58 28 122/70 90 98 PATIENT WEIGHT: Weight (lb): 188 Weight (oz): 0.87 Weight (kg): 85.300 Status post: 07/27 [facility] Physical Exam General appearance: alert, awake, oriented, no a cute distress, pleasant Head/Eyes: atraumatic, PERRL ENT: moist mucosal membranes Neck: full range of motion, no JVD Cardiovascular: CV assessment: regular rate and rhythm, no murm ur Respiratory: decreased breath sounds, no distres s Abdomen: soft, non-tender, normal bowel sounds, no distention, no guarding Genitourinary: no flank pain, no urinary cathete r Upper extremity: UE assessment: normal temperature, no edema Lower extremity: LE assessment: normal temperature, no edema Neuro/INSURANCE WRITER: alert, oriented X 3, normal speech Skin: dry, intact Psychiatry: normal affect Diagnosis, Assessment Plan Consultants: cardiology, cardiovascular surgery Free Text DxA P Notes Free Text DxA P Notes: Mr. Daly is a pleasant 66 y/o male w/ PMHx: CAD s/p PCI, HTN, HLD, T2DM, GERD , temporal arteritis (on prednisone) presented t o [facility] for elective PCI. - CAD. s/p LHC: multivessels disease Continue BB, statins, ASA, and Ranexa. on telemtry EF 55 to 60% with grade 1 diastolic dysfunction on heparin gtt no chest pain today platelet response 191 surgery tomorrow - HTN. BP controlled. On Bystolic, Norvasc and Losartan. Hydralazine PRN. - HLD. On statins. - Chronic temporal arteritis. On prednisone. - GERD. Per IM. On Pepcid. Add Maalox PRN. - ETOH. Per IM. Advised cessation. MDM per Dr. Osorio Electronically Signed by Sharri Noonan NP on 0 08/01/22 at 1639 at 2242 RPT #:[id number] END OF REPORT 2022-07-31 13:44:00-00:00 [id number] [place] [address] PATIENT NAME: MARY DALY ADMIT DATE: 07/30/22 ACCOUNT NO: [id number] ROOM NO: G.2203 AGE: 66 REPORT TYPE: eELECTROCARDIOGRAM REPORT SEX: M ADMITTING PHYSICIAN:Anthony Loaiza MD ATTENDING PHYSICIAN:Anthony Loaiza MD Order: [id number] Test Reason : PCI Postprocedure Test Date/Time Stamp: TueJul 31 2022 13:44:55 Blood Pressure : / mmHG Vent. Rate : 057 BPM Atrial Rate : 057 BPM P-R Int : 136 ms QRS Dur : 088 ms QT Int : 452 ms P-R-T Axes : 020 014 035 degree s QTc Int : 439 ms Sinus bradycardia Otherwise normal ECG When compared with ECG of 28-JUL-2022 07:34, No significant change was found Confirmed by KEVIN OSORIO MD ([id number]) on 11/2022 5:48:14 PM Referred By: Sam Price Confirmed by:MIGDALIA OSORIO MD at 7310 PATIENT NAME: MARY DALY 2 2022-07-31 12:06:00-00:[address] [facility] ([facility]) Cardiology Progress Note REPORT#:[id number] REPORT STATUS: Signed DATE:07/31/22 TIME: 1206 PATIENT: MARY DALY UNIT #: [id number] ROOM/BED: 2207-1 : 53 AGE: 66 SEX: M ATTEND: Marcella Loaiza od, MD ADM AUTHOR: Sharri Noonan NP * ALL edits or amendments must be made on the [employer] document * Subjective Chief complaint: reports chest pain Objective General VS/I O: Laboratory Tests 07/31/22 1019: [Embedded Image Not Available] 07/30/22 0307: [Embedded Image Not Available] 07/30/22 0306: [Embedded Image Not Available] Current Medications Sig/Cory Start time Last Medication Dose Route Stop Time Status Admin Nitroglycerin/ 250 ML ASDIR 07/31 1415 AC Dextrose IV 08/30 1414 Heparin Sodium 0 ASDIR PRN 07/31 1000 AC IV 08/30 0959 Heparin Sodium 500 ML ASDIR 07/31 1000 CKD 07/22 0 (Porcine) IV 08/30 0959 1043 Heparin Sodium 4,000 UNIT ONCE STA 07/31 0947 D C 07/31 IV 07/31 0948 1042 Albuterol Sulfate 2.5 MG RTONCE ONE 07/31 0500 DC NEB 07/31 0501 Mupirocin 1 APPLIC BID 07/30 2100 AC 07/31 NASAL 08/04 0901 0812 Verapamil HCl 16.6 MG .Q24H ONE 07/30 0500 DC Heparin Sodium 1,660 UNIT IV 07/31 0459 (Porcine) Sodium Bicarbonate 0.7 ML Nitroglycerin/ 8.3 MG Dextrose Lactated Ringer's 949.5 ML Carboxymethylcellul- 1 DROP QID PRN 07/28 2199 AC 07/28 ose Sodium EACH EYE 08/27 Docusate Sodium 100 MG BID 07/28 2100 AC 07/31 PO 08/27 2058 08 Ranolazine 500 MG Q12HR 07/28 2099 AC 07/31 PO 08/27 2058 08 Al Hydrox/Mg Hydrox/ 30 ML Q4H PRN PRN 07/28 17 30 AC 07/28 Simethicone PO 08/27 1729 1831 Hydralazine HCl 50 MG Q6H PRN PRN 07/28 1700 AC 07/28 PO 08/27 1659 1840 Amlodipine Besylate 10 MG DAILY 07/28 899 AC 0 07/31 PO 08/27 0859 0812 Aspirin 81 MG DAILY 07/28 899 AC 07/31 PO 08/27 0859 0810 Famotidine 20 MG DAILY 07/28 899 AC 07/31 PO 08/27 0859 0811 Losartan Potassium 50 MG DAILY 07/28 899 AC PO 08/27 0859 0811 Prednisone 2 MG C BK 07/29 799 AC 07/31 PO 08/27 0759 0810 Atorvastatin Calcium 10 MG BEDTIME 07/27 2315 A C 07/30 PO 08/26 2303 2044 Nebivolol 20 MG BEDTIME 07/27 2315 AC 07/30 PO 08/27 2059 2043 Prednisone 1 MG BEDTIME 07/27 2315 AC 07/30 PO 08/26 2314 2043 Acetaminophen 500 MG Q4H PRN PRN 07/27 1600 AC 07/31 PO 08/26 1559 0516 Atropine Sulfate 0.5 MG ASDIR PRN 07/27 1600 AC IV 08/26 1559 Sodium Chloride 500 ML ASDIR PRN 07/27 1600 AC IV 08/26 1559 24 hour I O ending at 0700: 07/31 0700 07/30 1900 Intake Total 250 800 Output Total 750 Balance 250 50 Intake, Oral 250 800 Number 2 Bowel Movements Number Voids 3 2 Output, Urine 750 Patient 86.7 kg Weight Weight Standing scale Measurement Method Vital Signs: Date Time Temp Pulse Resp B/P B/P Pulse O2 O2 F low FiO2 Mean Ox Delivery Rate 07/31 1525 36.8 52 15 140/69 0.0 94 07/31 1505 140/69 99 07/31 1500 53 13 94 07/31 1220 36.6 55 20 129/62 0.0 95 07/31 0659 36.5 54 21 134/76 0.0 97 07/31 0318 36.6 52 14 112/57 0.0 94 Room air 07/31 0315 53 17 112/57 81 94 07/31 0100 50 13 95 07/31 0000 54 15 94 07/30 2310 55 21 130/74 98 95 2310 36.5 55 14 130/74 0.0 96 Room air 07/30 2046 53 21 148/77 107 96 07/30 1900 54 17 95 07/30 1851 36.4 59 14 128/68 0.0 95 Room air 07/30 1618 36.4 56 18 149/82 104.3 99 PATIENT WEIGHT: Weight (lb): 190 Weight (oz): 14.73 Weight (kg): 86.600 Status post: 07/27 [facility] Physical Exam General appearance: alert, awake, oriented, no a cute distress, pleasant Head/Eyes: atraumatic, PERRL ENT: moist mucosal membranes Neck: full range of motion, no JVD Cardiovascular: CV assessment: regular rate and rhythm, no murm ur Respiratory: decreased breath sounds, no distres s Abdomen: soft, non-tender, normal bowel sounds, no distention, no guarding Genitourinary: no flank pain, no urinary cathete r Upper extremity: UE assessment: normal temperature, no edema Lower extremity: LE assessment: normal temperature, no edema Neuro/INSURANCE WRITER: alert, oriented X 3, normal speech Psychiatry: normal affect Diagnosis, Assessment Plan Consultants: cardiology, cardiovascular surgery Free Text DxA P Notes Free Text DxA P Notes: Mr. Daly is a pleasant 66 y/o male w/ PMHx: CAD s/p PCI, HTN, HLD, T2DM, GERD , temporal arteritis (on prednisone) presented t o [facility] for elective PCI. - CAD. s/p [facility]: multivessels disease Continue BB, statins, ASA, and Ranexa. on telemtry EF 55 to 60% with grade 1 diastolic dysfunction CABG next week Pt reports chest pain this morning, heparin gtt started stat EKG- no acute ischemic changes noted later nurse calls to report worsening chest pain , order to tx pt to CCU/CVICU for nitro gtt ordered another platelet response test discussed with CTS HR 50s- decrease bystolic to 10mg daily- hold fo r HR <55 - HTN. BP controlled. On Bystolic, Norvasc and Losartan. Hydralazine PRN. - HLD. On statins. - Chronic temporal arteritis. On prednisone. - GERD. Per IM. On Pepcid. Add Maalox PRN. - ETOH. Per IM. Advised cessation. MDM per Dr. Osorio Electronically Signed by Sharri Noonan NP on 0 07/31/22 at 1617 at 3357 RPT #:[id number] END OF REPORT 2022-07-31 09:26:00-00:00 [facility] Hospitalist Progress Note REPORT#:[id number] REPORT STATUS: Signed DATE:07/31/22 TIME: 925 PATIENT: MARY DALY UNIT #: [id number] ROOM/BED: [place] [address] : 53 AGE: 66 SEX: M ATTEND: Marcella Loaiza od, MD ADM AUTHOR: Luther Martin [employer] * ALL edits or amendments must be made on the [employer] document * Luther Martin 07/31/22 09: Subjective Chief complaint: He is waiting for CABG. NO CP, fever, chills. NO N/v/d. Hr stable. BP is stable. Review of Systems Constitutional: Reports: fatigue, generalized weakness. Allergy/Immun: Denies: anaphylaxis, itching, sneezing. Respiratory: Denies: hemoptysis, parox nocturnal dyspnea, ple uritic pain, SOB. Cardiovascular: Denies: chest pain, edema, orthopnea, palpitatio ns. GI: Denies: abdominal pain, constipation, diarrhea, dysphagia, GERD, melena. : Denies: dysuria, frequency, penile lesion, urgen cy. Musculoskeletal: Denies: extremity pain, lumbar pain, myalgias. Endocrine: Denies: heat intolerance, polydipsia, polyuria. Neuro: Denies: change in LOC, focal weakness, headache, numbness, seizure, spinning sensation. Objective General VS/I O: Vital Signs: Date Time Temp Pulse Resp B/P B/P Pulse O2 O2 Flow FiO2 Mean Ox Delivery Rate 07/31 0559 36.5 54 21 134/76 0.0 97 07/31 0318 36.6 52 14 112/57 0.0 94 Room air 07/31 0315 53 17 112/57 81 94 07/31 0100 50 13 95 07/31 0000 54 15 94 07/30 2310 55 21 130/74 98 95 07/30 2310 36.5 55 14 130/74 0.0 96 Room air 07/30 2046 53 21 148/77 107 96 07/30 1900 54 17 95 07/30 1851 36.4 59 14 128/68 0.0 95 Room air 07/30 1618 36.4 56 18 149/82 104.3 99 07/30 1134 36.3 53 18 137/81 99.6 93 24 hour I O ending at 0700: 07/31 0700 07/30 1900 Intake Total 250 800 Output Total 750 Balance 250 50 Intake, Oral 250 800 Number 2 Bowel Movements Number Voids 3 2 Output, Urine 750 Patient 86.7 kg Weight Weight Standing scale Measurement Method PATIENT WEIGHT: Weight (lb): 191 Weight (oz): 2.25 Weight (kg): 86.700 Medications: Active Meds + DC'd Last 24 Hrs Albuterol Sulfate (ALBUTEROL SULFATE) 2.5 MG RTO NCE ONE NEB (DC) Mupirocin (BACTROBAN 2% 22 GM OINTMENT) 1 APPLIC BID NASAL Verapamil HCl (ISOPTIN) 16.6 MG .Q24H ONE IV (DC ) Heparin Sodium (Porcine) (HEPARIN SODIUM) 1,660 UNIT Sodium Bicarbonate (SODIUM BICARBONATE) 0.7 ML Nitroglycerin/Dextrose (NITROGLYCERIN 50MG/D5W 250ML) 8.3 MG Lactated Ringer's (LACTATED RINGERS) 949.5 ML Carboxymethylcellulose Sodium (REFRESH TEARS) 1 DROP QID PRN EACH EYE Docusate Sodium (COLACE) 100 MG BID PO Ranolazine (RANEXA 500MG TAB) 500 MG Q12HR PO Al Hydrox/Mg Hydrox/Simethicone (MYLANTA) 30 ML Q4H PRN PRN PO Hydralazine HCl (APRESOLINE) 50 MG Q6H PRN PRN P O Amlodipine Besylate (NORVASC) 10 MG DAILY PO Aspirin (ASPIRIN) 81 MG DAILY PO Famotidine (PEPCID) 20 MG DAILY PO Losartan Potassium (COZAAR) 50 MG DAILY PO Prednisone (predniSONE) 2 MG C BK PO Atorvastatin Calcium (LIPITOR) 10 MG BEDTIME PO Nebivolol (BYSTOLIC) 20 MG BEDTIME PO Prednisone (predniSONE) 1 MG BEDTIME PO Acetaminophen (TYLENOL EXTRA STRENGTH) 500 MG Q4 H PRN PRN PO Atropine Sulfate (ATROPINE SULFATE 0.1MG/ML SYR) 0.5 MG ASDIR PRN IV Sodium Chloride (SODIUM CHLORIDE 0.9%) 500 ML DIR PRN IV Dietitian nutrition assessment The data set between the solid lines has been im ported from the dietitian's assessment. BMI Calculated: 27.3 Nutrition related diagnosis: Nutrition diagnosis details: Nutrition problem: Nutrition etiology: Nutrition signs and symptoms: Nutrition prescription: Dietitian name: Assessment completed: Physical Exam General appearance: alert, awake, oriented Head/Eyes: atraumatic, normocephalic, PERRLA Cardiovascular: normal capillary refill, normal heart sounds, regular rate rhythm Respiratory: aerating well, symmetric expansion, no distress Abdomen: non-tender, normal bowel sounds, soft Genitourinary: no bladder distention, no flank p ain, no urinary catheter Extremities: no calf tenderness, no clubbing, no cyanosis Musculoskeletal: no CVA tenderness, no muscle sp asm Neuro/INSURANCE WRITER: alert, oriented X 3, CNII-XII intact Skin: dry, intact Results Results: vital signs reviewed, vital signs stabl e, current med profile rev'd Treatment Prophylaxis Treatment Prophylaxis Oxygen: room air Diagnosis, Assessment Plan Consultants: cardiology, cardiovascular surgery Code status: full code Plan discussed with: patient, admitting physicia n, consultants, nurse Free Text DxA P Notes Free text DxA P notes: Assessment and Plan: - Multivessel CAD. - CP due to CAD. - HX of HTN/HLD and CAD. Plan: CVN1. Will go for CBAG Tuesday. Pre op work up per CV surgery. Pain meds. Antiemetics. Continue BB, Lipitor and ASA. Follow labs and repalce as needed. Monitor. Anthony Loaiza 07/31/222022: Attestations Physician Attestation Agree w/findings plan: Patient seen and examined, I agree with the findings and plans as discussed with and documented by Luther Montiel NP Electronically Signed by Luther Martin NP on 12/13 at 0927 Electronically Signed by Anthony Loaiza MD on 0 07/31/22 at 2110 RPT #:[id number] END OF REPORT 2022-07-31 04:45:00-00:00 [facility] Cardiothoracic Surgery Prog REPORT#:[id number] REPORT STATUS: Signed DATE:07/31/22 TIME: 444 PATIENT: MARY DALY UNIT #: [id number] ROOM/BED: [place] [address] : 53 AGE: 66 SEX: M ATTEND: Marcella Loaiza od, MD ADM AUTHOR: Rosalind Mendez Physic * ALL edits or amendments must be made on the [employer]/computer document * Subjective Chief complaint: Chest Pains, CAD. Review of Systems Constitutional: Denies: fatigue, fever, generalized weakness. Skin: Denies: rash, swelling. Allergy/Immun: Denies: itching, rhinorrhea. ENT: Denies: earache, hearing loss. Respiratory: Denies: SOB, wheezing. Cardiovascular: Denies: edema, orthopnea. GI: Denies: constipation, diarrhea. : Denies: dysuria, hematuria. Musculoskeletal: Denies: joint pain, joint swelling. Heme: Denies: bleeding, bruising. Neuro: Denies: confusion. Psych: Denies: anxiety, confusion. All systems rev neg: except as marked Objective General VS/I O Last Documented: Result Date Time Pulse Ox 94 07/31 317 B/P 112/57 07/31 317 B/P Mean 0.0 07/31 317 O2 Delivery Room air 07/31 317 Temp 97.9 07/31 317 Pulse 52 07/31 317 Resp 14 07/31 317 24 hour I O ending at 0700: 07/31 0700 07/30 1900 Intake Total 250 800 Output Total 750 Balance 250 50 Intake, Oral 250 800 Number 2 Bowel Movements Number Voids 2 Output, Urine 750 Patient 86.7 kg Weight Weight Standing scale Measurement Method PATIENT WEIGHT: Weight (lb): 191 Weight (oz): 2.25 Weight (kg): 86.700 Physical Exam General appearance: alert, awake, oriented HEENT: mucosal membranes moist Neck: full range of motion, non-tender Cardiovascular: BP/pulses equal bilat., regular rate rhythm Respiratory: aerating well, clear to auscultatio n Abdomen: soft, non-tender Extremities: dry, moves all Musculoskeletal: full range of motion, painless range of motion Neuro/INSURANCE WRITER: alert, oriented X 3 Skin: dry, intact Diagnosis, Assessment Plan Free Text A P: This is a 66-year gentleman with past medical history of coronary artery disease status post PCI in the past, with most recent in July 07, 2022, history of temporal arteritis on chronic prednisone since 2 017, diverticulitis, gout, hypertension, hyperlipidemia. The patient reports a histor y of exertional shortness of breath with occasional chest pain over the past several weeks. He underwent cardiac work-up with his cardiologi st and left heart cath was performed yesterday. This revealed multivessel CAD. CV surgery consulted for evaluation for coronary bypass graft. The patient reports a histor y of diabetes, diet controlled for the past several years. Patient denies any history of smoking. Patient admits to drinking 1 alcoholic beverage per day Patient has a strong family history of coronary artery disease with coronary bypass graft surgery in his brother Patient continues to take prednisone 3 mg daily for history of temporal arteritis in 2017 Assessment/plan 1. Coronary artery disease Previous PCI with most recent June 2022, hold Pl avix in preparation for surgery. 2. Hypertension 3. Hyperlipidemia 4. Temporal arteritis in 2017 Continues on prednisone 3 mg We will begin work-up for coronary bypass graft surgery. Patient was seen in exam by Dr. Mccurdy. Further recommendations to follow as work-up und erway Thank you for this kind consultation 07/29/22 Patient resting comfortable, denies complaint Patient received Plavix 75 m g on 07/28/2022 , will obtain repeat platelet response to Plavix test in the a.m. Respiratory: On room air Cardiac: Remains sinus rhythm Carotid Doppler shows no significant carotid art jorge stenosis Vein mapping complete Labs reviewed shows WBCs elevated 16 Urinalysis negative Neurology consult for history of temporal arteri tis, appreciate input We will repeat platelet response to Plav ix. Possibly plan for CABG in the a.m. Patient was seen and examined by 07/30/22 Patient resting comfortable. Denies complaints. Respiratory: On room air 100% Cardiac: Sinus rhythm Last recieved plavix on 07/28/22, Platelet respons e to PLavix this am= 157 Will plan for surgery next week. Neurology eval underway Patient was seen and examined by Dr. Mccurdy Work-up for coronary artery bypass graft surgery undergoing. Timing of surgery pending 07/31/22 Patient resting comfortable. Denies complaints. Respiratory: On room air 100% Cardiac: Sinus rhythm Patient recieved plavix on 07/28/22, Will repeat p latelet response on Tuesday. Will plan for surgery next week Neurology following. Continue steroids for Hx of temporal arteritis. Carotids show no significant dz, CT head complete No flow-limiting stenosis or occlusion along ma daisy intracranial arterial vessels. No acute intracranial process nor bony injury UA negative, HGa1c 6.2 Patient was seen and examined by Dr. Carmella carmen. Plan repeat platelet response to Plavix in the a.m. Plan for CABG on Tuesday Consultants: cardiology, cardiovascular surgery at 0845 at 1111 RPT #:[id number] END OF REPORT 2022-07-30 11:31:00-00:00 [facility] RE[facility]#:[id number] REPORT STATUS: Signed DATE:07/30/22 TIME: 1131 PATIENT: MARY DALY UNIT #: [id number] ROOM/BED: 2203[address]1 : 53 AGE: 66 SEX: M ATTEND: Marcella Loaiza od, MD ADM AUTHOR: Sam Fallon MD * ALL edits or amendments must be made on the [employer]/computer document * Subjective Chief complaint: chest pain HPI: Patient denies new events. Review of Systems Free Text ROS Notes Free Text ROS Notes: 14 point system reviewed and negative with excep tion of what is in HPI Objective General VS: Last Documented: Result Date Time Pulse Ox 94 07/31 1525 B/P 140/69 07/31 1525 B/P Mean 0.0 07/31 1525 Temp 36.8 07/31 1525 Pulse 52 07/31 1525 Resp 15 07/31 1525 O2 Delivery Room air 07/31 0318 PATIENT WEIGHT: Weight (lb): 190 Weight (oz): 14.73 Weight (kg): 86.600 Medications Current Home Medications ATORVASTATIN (LIPITOR) 10 MG PO DAILY CIPROFLOXACIN (CIPRO) 500 MG PO DAILY PRN DIVERT ICULITIS CLOPIDOGREL (PLAVIX) 75 MG PO DAILY metroNIDAZOLE (FLAGYL) 500 MG PO TID PRN DIVERTI CULITIS NEBIVOLOL (BYSTOLIC) 20 MG PO BID OMEPRAZOLE ER (PriLOSEC) 40 MG PO DAILY PRN ACID REFLUX predniSONE 1 MG PO TID SILDENAFIL (VIAGRA) 100 MG PO DAILY PRN PRN ED SODIUM FLUORIDE (PREVIDENT 5000 1.1% DENTAL) 1 A PPLIC TOPICAL DAILY ASPIRIN 81 MG PO DAILY POTASSIUM GLUCONATE 1 TAB PO DAILY CALCIUM CARBONATE (CALTRATE 600 MG) 600 MG PO DA SHIMON CHOLECALCIFEROL (VITAMIN D3) (VITAMIN D3) 1,000 UNITS PO DAILY ACETAMINOPHEN (TYLENOL) 500 MG PO Q4H PRN PRN PA IN IBUPROFEN (ADVIL) 200 MG PO Q6H PRN PRN PAIN FAMOTIDINE (PEPCID) 20 MG PO DAILY amLODIPine (NORVASC) 10 MG PO DAILY LOSARTAN (COZAAR) 50 MG PO DAILY Active Meds + DC'd Last 24 Hrs Nebivolol (BYSTOLIC) 10 MG BEDTIME PO Nitroglycerin/Dextrose (NITROGLYCERIN 50,000MCG/ D5W 250ML) 250 ML ASDIR IV Heparin Sodium (HEPARIN 5000 UNITS/ML) 0 ASDIR P RN IV Heparin Sodium (Porcine) (HEPARIN 25,000 UNITS/ 1/2NS 500ML) 500 ML ASDIR IV (CKD) Heparin Sodium (HEPARIN 5000 UNITS/ML) 4,000 UNI T ONCE STA IV (DC) Albuterol Sulfate (ALBUTEROL SULFATE) 2.5 MG RTO NCE ONE NEB (DC) Mupirocin (BACTROBAN 2% 22 GM OINTMENT) 1 APPLIC BID NASAL Verapamil HCl (ISOPTIN) 16.6 MG .Q24H ONE IV (DC ) Heparin Sodium (Porcine) (HEPARIN SODIUM) 1,660 UNIT Sodium Bicarbonate (SODIUM BICARBONATE) 0.7 ML Nitroglycerin/Dextrose (NITROGLYCERIN 50MG/D5W 250ML) 8.3 MG Lactated Ringer's (LACTATED RINGERS) 949.5 ML Carboxymethylcellulose Sodium (REFRESH TEARS) 1 DROP QID PRN EACH EYE Docusate Sodium (COLACE) 100 MG BID PO Ranolazine (RANEXA 500MG TAB) 500 MG Q12HR PO Al Hydrox/Mg Hydrox/Simethicone (MYLANTA) 30 ML Q4H PRN PRN PO Hydralazine HCl (APRESOLINE) 50 MG Q6H PRN PRN PO Amlodipine Besylate (NORVASC) 10 MG DAILY PO Aspirin (ASPIRIN) 81 MG DAILY PO Famotidine (PEPCID) 20 MG DAILY PO Losartan Potassium (COZAAR) 50 MG DAILY PO Prednisone (predniSONE) 2 MG C BK PO Atorvastatin Calcium (LIPITOR) 10 MG BEDTIME PO Nebivolol (BYSTOLIC) 20 MG BEDTIME PO (DC) Prednisone (predniSONE) 1 MG BEDTIME PO Acetaminophen (TYLENOL EXTRA STRENGTH) 500 MG Q4 H PRN PRN PO Atropine Sulfate (ATROPINE SULFATE 0.1MG/ML SYR) 0.5 MG ASDIR PRN IV Sodium Chloride (SODIUM CHLORIDE 0.9%) 500 ML DIR PRN IV Physical Exam Neuro comment: GEN: NAD, Calm and Cooperative HEENT: NC/AT, Anicteric Sclera, Mucous Membrane s are moist CV: Brisk Cap Refill/Palpable peripheral pulses RESP: Chest Expansion is symmetric, non-labored breathing EXTREM: No peripheral Edema Neuro Exam: Mental Status: A, A, O x4, cooperative, good fu nd of knowledge Naming, comprehension, repetition intact. Follo w simple and 3-step verbal commands Language: Fluency intact, no aphasia or dysarth sunil Coordination: Normal Finger to nose exam, No dy smetria or tremor Cranial Nerves: II: Pupils equal and symmetric, Brisk and react cj to light bilaterally III, IV, : EOM intact, No gaze preference, No visual field deficit, No nystagmus V, VII: Normal Sensation to V1, V2, V3 distribu tion bilaterally, Normal facial expression, No facial paresis or Nasolabial fold flattening . VIII: Hearing is intact to speech IX, X: Soft palate elevates normally, Uvula to the midline XI, XII: Normal strength to SCM bilaterally. To ngue protrudes to the midline Motor: Normal Tone and muscle bulk in all extre mities RUE: 5/5 Strength with Shoulder Abductors/Adduc tors, Elbow flexors/extensors, wrist flexors/extensors and Finger abductors/adductors LUE: 5/5 Strength with Shoulder Abductors/Adduc tors, Elbow flexors/extensors, wrist flexors/extensors and Finger abductors/adductors RLE: 5/5 Strength with hip flexors/extensors, k nee flexors/extensors, ankle dorsiflexors and plantar flexors LLE: 5/5 Strength with hip flexors/extensors, k nee flexors/extensors, ankle dorsiflexors and plantar flexors Sensory: Normal Sensation to Light touch, Pinpr ick, Temperature, in all extremities Deep Tendon Reflexes: +2 and symmetric to Biceps, Triceps, Brachiorad ialis, Knees and Ankles Plantar Responses: Flexor bilaterally Gait /Station: Normal, No Truncal Instability, Negative Romberg Diagnosis, Assessment Plan Free Text A P: This is a 66-year-old male with a past medical h istory of hypertension, hyperlipidemia, diverticulitis, CA, gout, tempor al arteritis and CAD who was admitted to [facility] on July 28 electively for a lef t heart cath. Neuro exam demonstrates no focal deficits. Impression: Multivessel coronary artery disease H/O Temporal Arteritis Prior CA with PCI Hypertension Plan: - CTA H N reviewed personally though rad iology read is pending. Patient has an azygous CHEYANNE on the R with robust Acomm and BL A1 segments. 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 Hard plaque in BL cavernous ICA with mil d moderate stenosis on my review. mid basilar with are as of moderate severe stenosis seen on axial slices on my review. Non flowlimiti ng hard plaque in BL cervical ICA. L VA is dominant with R V4 occlusion/severe s tenosis intracranially as opposed to ending in PICA - will f/u radiology read - no contraindication to CABG from neurostanpoin t as long as adequate CPP maintained. terminal manager there is some concern rega rding how robust patient's pontine perforators likely are given positioning of plaque in basilar artery. Electronically Signed by Sam Fallon MD 07/31/22 at 1757 RPT #:[id number] END OF REPORT 2022-07-30 09:29:00-00:00 [facility] Hospitalist Progress Note REPORT#:[id number] REPORT STATUS: Signed DATE:07/30/22 TIME: 928 PATIENT: MARY DALY UNIT #: [id number] ROOM/BED: [place] [address] : 53 AGE: 66 SEX: M ATTEND: Marcella Loaiza od, MD ADM AUTHOR: Luther Martin [employer] * ALL edits or amendments must be made on the [employer]/computer document * Luther Martin 07/30/22 0929: Subjective Chief complaint: He is stable. No new issue. NO CP, fever, chills. NO N/v/d. Hr stable. BP is stable. Review of Systems Constitutional: Reports: fatigue, generalized weakness. Allergy/Immun: Denies: anaphylaxis, hives, rhinorrhea. ENT: Denies: earache, mouth pain, nasal congestion, s inus problem, throat pain, tongue swelling. Respiratory: Denies: PETERSEN (dyspnea on exertion), non productiv e cough, pleuritic pain, productive cough (sputum), SOB. Cardiovascular: Denies: chest pain, orthopnea, palpitations. GI: Denies: abdominal pain, constipation, dysphagia, hematemesis, hematochezia, melena, nausea. : Denies: flank pain, hematuri a, nocturia, penile discharge, testicular swelling. Heme: Denies: bleeding, bruising. Neuro: Denies: bowel dysfunction, dizziness, headache, slurred speech, spinning sensation. Objective General VS/I O: Vital Signs: Date Time Temp Pulse Resp B/P B/P Pulse O2 O2 F low FiO2 Mean Ox Delivery Rate 06/09 0652 36.6 48 18 138/88 104.5 93 / 0313 36.4 49 14 155/83 0.0 97 Room air 07/30 0100 51 12 / 2308 36.4 49 14 136/70 0.0 97 Room air / 2307 50 11 136/70 97 / 2105 51 17 143/74 103 06/08 1833 36.4 57 14 130/66 0.0 95 Room air 06/08 1504 36.6 54 18 144/79 0.0 94 06/08 1149 36.4 56 18 128/55 0.0 95 Room air 24 hour I O ending at 0700: 07/30 0700 0608 1900 Intake Total 250 900 Output Total Balance 250 900 Intake, Oral 250 900 Number Voids 1 5 Patient 86.4 kg Weight Weight Standing scale Measurement Method PATIENT WEIGHT: Weight (lb): 190 Weight (oz): 7.67 Weight (kg): 86.400 Medications: Active Meds + DC'd Last 24 Hrs Metoprolol Tartrate (LOPRESSOR) 6.25 MG ONCE ONE PO (DC) Verapamil HCl (ISOPTIN) 16.6 MG .Q24H ONE IV (CK D) Heparin Sodium (Porcine) (HEPARIN SODIUM) 1,660 UNIT Sodium Bicarbonate (SODIUM BICARBONATE) 0.7 ML Nitroglycerin/Dextrose (NITROGLYCERIN 50MG/D5W 250ML) 8.3 MG Lactated Ringer's (LACTATED RINGERS) 949.5 ML Perflutren Protein Type A Microsphe (OPTISON 3ML VIAL) 0 .STK-MED ONE IV (DC) Diphenhydramine HCl (BENADRYL) 25 MG PREMED ONE IV (DC) Sodium Chloride (SODIUM CHLORIDE 0.9%) 50 ML Diphenhydramine HCl (BENADRYL) 25 MG PREMED ONE IV (DC) Carboxymethylcellulose Sodium (REFRESH TEARS) 1 DROP QID PRN EACH EYE Docusate Sodium (COLACE) 100 MG BID PO Ranolazine (RANEXA 500MG TAB) 500 MG Q12HR PO Al Hydrox/Mg Hydrox/Simethicone (MYLANTA) 30 ML Q4H PRN PRN PO Hydralazine HCl (APRESOLINE) 50 MG Q6H PRN PRN P O Amlodipine Besylate (NORVASC) 10 MG DAILY PO Aspirin (ASPIRIN) 81 MG DAILY PO Famotidine (PEPCID) 20 MG DAILY PO Losartan Potassium (COZAAR) 50 MG DAILY PO Prednisone (predniSONE) 2 MG C BK PO Atorvastatin Calcium (LIPITOR) 10 MG BEDTIME PO Nebivolol (BYSTOLIC) 20 MG BEDTIME PO Prednisone (predniSONE) 1 MG BEDTIME PO Acetaminophen (TYLENOL EXTRA STRENGTH) 500 MG Q4 H PRN PRN PO Atropine Sulfate (ATROPINE SULFATE 0.1MG/ML SYR) 0.5 MG ASDIR PRN IV Sodium Chloride (SODIUM CHLORIDE 0.9%) 500 ML DIR PRN IV Dietitian nutrition assessment The data set between the solid lines has been im ported from the dietitian's assessment. BMI Calculated: 27.3 Nutrition related diagnosis: Nutrition diagnosis details: Nutrition problem: Nutrition etiology: Nutrition signs and symptoms: Nutrition prescription: Dietitian name: Assessment completed: Physical Exam General appearance: alert, awake, oriented Head/Eyes: atraumatic, normocephalic, PERRLA Cardiovascular: normal capillary refill, normal heart sounds, regular rate rhythm Respiratory: aerating well, symmetric expansion, no distress Abdomen: non-tender, normal bowel sounds, soft Genitourinary: no bladder distention, no flank p ain, no urinary catheter Extremities: no calf tenderness, no clubbing, no cyanosis Musculoskeletal: no CVA tenderness, no muscle sp asm Neuro/INSURANCE WRITER: alert, oriented X 3, CNII-XII intact Skin: dry, intact Results Findings/Data: Laboratory Tests 07/30 07/30 0306 0306 Chemistry Sodium (134 - 147 mEq/L) 137 Potassium (3.4 - 5.0 mEq/L) 4.4 Chloride (100 - 108 mEq/L) 107 Carbon Dioxide (21 - 33 mEq/l) 23 Anion Gap (0 - 20) 11 BUN (7 - 18 mg/dL) 11 Creatinine (0.6 - 1.3 mg/dL) 0.9 Glomerular Filtr Rate (80 - 90) 93.0 H Glucose (70 - 110 mg/dL) 99 Calcium (8.0 - 10.5 mg/dL) 9.0 Total Bilirubin (0.0 - 1.0 mg/dL) 0.40 AST (15 - 37 IUnit/L) 21 ALT (30 - 65 IUnit/L) 23 L Total Alk Phosphatase (20 - 125 IUnit/L) 66 B-Natriuretic Peptide (0 - 100 PG/ML) 54.0 Total Protein (6.4 - 8.2 g/dL) 6.6 Albumin (3.4 - 5.0 g/dL) 3.70 Laboratory Tests 07/30 07/30 0306 0304 Coagulation INR (0.8 - 1.2) 1.0 PTT (Maverick) (25.0 - 39.5 Seconds) 28.3 PT Patient/Control Mix (9.3 - 12.9 SECONDS) 11. 2 Plt P2Y12 React Units (182 - 335 PRU) 157 L Laboratory Tests 07/30 0307 Hematology WBC (4.5 - 11.0 x10 3/uL) 11.6 H RBC (4.00 - 5.60 x10 6/uL) 4.62 Hgb (12.5 - 16.9 g/dL) 14.7 Hct (37.5 - 50.7 %) 41.8 MCV (81.0 - 99.0 fL) 90.5 MCH (27.0 - 33.0 pg) 31.8 MCHC (33.0 - 37.0 g/dL) 35.2 RDW (11.5 - 14.5 %) 14.0 Plt Count (150 - 400 x10 3/uL) 248 MPV (7.0 - 9.0 fL) 11.0 H Neut % (Auto) (56.0 - 77.0 %) 57.3 Lymph % (Auto) (14.0 - 32.0 %) 29.6 Stephenson % (Auto) (4.8 - 9.0 %) 11.0 H Eos % (Auto) (0.3 - 3.7 %) 1.4 Baso % (Auto) (0.0 - 2.0 %) 0.4 Neut # (Auto) (2.0 - 7.6 x10 3/uL) 6.63 Lymph # (Auto) (1.0 - 3.8 x10 3/uL) 3.43 Stephenson # (Auto) (0.1 - 0.8 x10 3/uL) 1.28 H Eos # (Auto) (0.0 - 0.2 x10 3/uL) 0.16 Baso # (Auto) (0.0 - 0.2 x10 3/uL) 0.05 Abs Immat Gran (auto) (0.00 - 0.03 x10 3/uL) 0. 04 H Add Manual Diff NO Immature Gran % (0.0 - 2.0 %) 0.3 Nucleated RBC % (0 - 0 %) 0.0 Nucleated RBCs # (Man) (0.0 - 0.1 x10 3/uL) 0.0 0 Laboratory Tests 07/30 0305 Serology SARS-CoV-2 Ag (Rapid) (Negative) Negative Results: labs reviewed, vital signs reviewed, vi radha signs stable, current med profile rev'd Treatment Prophylaxis Treatment Prophylaxis Oxygen: room air Diagnosis, Assessment Plan Orders: Procedure Date/time Status CHANGE PATIENT STATUS 07/30 826 Active Consultants: cardiology, cardiovascular surgery Code status: full code Plan discussed with: patient, admitting physicia n, consultants, nurse Free Text DxA P Notes Free text DxA P notes: Assessment and Plan: - Multivessel CAD. - CP due to CAD. - HX of HTN/HLD and CAD. Plan: CVN1. Will go for CBAG Tuesday. Pre op work up per CV surgery. Pain meds. Antiemetics. Continue BB, Lipitor and ASA. Follow labs and repalce as needed. Monitor. Anthony Loaiza 07/31/222022: Attestations Physician Attestation Agree w/findings plan: Patient seen and examined, I agree with the findings and plans as discussed with and documented by Luther Montiel NP Electronically Signed by Luther Martin NP on 11/13 at 0931 Electronically Signed by Anthony Loaiza MD on 0 07/31/22 at 2109 RPT #:[id number] END OF REPORT 2022-07-30 08:56:00-00:00 [facility]) Cardiology Progress Note REPORT#:[id number] REPORT STATUS: Signed DATE:07/30/22 TIME: 08 PATIENT: MARY DALY UNIT #: [id number] ROOM/BED: [address] : [address] AGE: 66 SEX: M ATTEND: Marcella Loaiza od, MD ADM AUTHOR: Harper Rae NP * ALL edits or amendments must be made on the [employer]/computer document * Subjective Chief complaint: Doing okay. Patient reports: No: chest pain, palpitations, shortness of breat h. Nursing reports: No: complaints. Comments: Patient on room air, NAD. His surgery is canceled due to platelet response to Plavix was low, 157. Telemetry shows normal sinus rhythm to sinus bra dycardia. Objective General VS/I O: 24 hour I O ending at 0700: 07/29 1900 07/30 0700 Intake Total 900 250 Output Total Balance 900 250 Intake, Oral 900 250 Number Voids 5 1 Patient 86.4 kg Weight Weight Standing scale Measurement Method Vital Signs: Date Time Temp Pulse Resp B/P B/P Pulse O2 O2 F low FiO2 Mean Ox Delivery Rate 07/30 1134 97.3 53 18 137/81 99.6 93 07/30 0652 97.9 48 18 138/88 104.5 93 07/30 0313 97.5 49 14 155/83 0.0 97 Room air 07/30 0100 51 12 07/29 2308 97.5 49 14 136/70 0.0 97 Room air 07/29 2307 50 11 136/70 97 07/29 2105 51 17 143/74 103 / 1833 97.5 57 14 130/66 0.0 95 Room air 07/29 1504 97.9 54 18 144/79 0.0 94 PATIENT WEIGHT: Weight (lb): 190 Weight (oz): 7.67 Weight (kg): 86.400 Medications: Active Meds + DC'd Last 24 Hrs Metoprolol Tartrate (LOPRESSOR) 6.25 MG ONCE ONE PO (DC) Verapamil HCl (ISOPTIN) 16.6 MG .Q24H ONE IV (CK D) Heparin Sodium (Porcine) (HEPARIN SODIUM) 1,66 0 UNIT Sodium Bicarbonate (SODIUM BICARBONATE) 0.7 ML Nitroglycerin/Dextrose (NITROGLYCERIN 50MG/D5W 250ML) 8.3 MG Lactated Ringer's (LACTATED RINGERS) 949.5 ML Perflutren Protein Type A Microsphe (OPTISON 3ML VIAL) 0 .STK-MED ONE IV (DC) Diphenhydramine HCl (BENADRYL) 25 MG PREMED ONE IV (DC) Sodium Chloride (SODIUM CHLORIDE 0.9%) 50 ML Diphenhydramine HCl (BENADRYL) 25 MG PREMED ONE IV (DC) Carboxymethylcellulose Sodium (REFRESH TEARS) 1 DROP QID PRN EACH EYE Docusate Sodium (COLACE) 100 MG BID PO Ranolazine (RANEXA 500MG TAB) 500 MG Q12HR PO Al Hydrox/Mg Hydrox/Simethicone (MYLANTA) 30 ML Q4H PRN PRN PO Hydralazine HCl (APRESOLINE) 50 MG Q6H PRN PRN P O Amlodipine Besylate (NORVASC) 10 MG DAILY PO Aspirin (ASPIRIN) 81 MG DAILY PO Famotidine (PEPCID) 20 MG DAILY PO Losartan Potassium (COZAAR) 50 MG DAILY PO Prednisone (predniSONE) 2 MG C BK PO Atorvastatin Calcium (LIPITOR) 10 MG BEDTIME PO Nebivolol (BYSTOLIC) 20 MG BEDTIME PO Prednisone (predniSONE) 1 MG BEDTIME PO Acetaminophen (TYLENOL EXTRA STRENGTH) 500 MG Q4 H PRN PRN PO Atropine Sulfate (ATROPINE SULFATE 0.1MG/ML SYR) 0.5 MG ASDIR PRN IV Sodium Chloride (SODIUM CHLORIDE 0.9%) 500 ML DIR PRN IV Status post: 07/27 [facility] Physical Exam General appearance: alert, o riented, no acute distress, pleasant, conversational , mental status normal, no respiratory distress Head/Eyes: atraumatic, PERRL ENT: moist mucosal membranes Neck: full range of motion, no JVD Cardiovascular: CV assessment: regular rate and rhythm, no murm ur Respiratory: decreased breath sounds, no distres s Abdomen: soft, non-tender, normal bowel sounds, no distention, no guarding Genitourinary: no flank pain, no urinary cathete r Upper extremity: UE assessment: normal temperature, no edema Lower extremity: LE assessment: normal temperature, no edema Neuro/INSURANCE WRITER: alert, oriented X 3, normal speech Psychiatry: normal affect Results Findings/Data: Laboratory Tests 07/30 07/30 0306 0306 Chemistry Sodium (134 - 147 mEq/L) 137 Potassium (3.4 - 5.0 mEq/L) 4.4 Chloride (100 - 108 mEq/L) 107 Carbon Dioxide (21 - 33 mEq/l) 23 Anion Gap (0 - 20) 11 BUN (7 - 18 mg/dL) 11 Creatinine (0.6 - 1.3 mg/dL) 0.9 Glomerular Filtr Rate (80 - 90) 93.0 H Glucose (70 - 110 mg/dL) 99 Calcium (8.0 - 10.5 mg/dL) 9.0 Total Bilirubin (0.0 - 1.0 mg/dL) 0.40 AST (15 - 37 IUnit/L) 21 ALT (30 - 65 IUnit/L) 23 L Total Alk Phosphatase (20 - 125 IUnit/L) 66 B-Natriuretic Peptide (0 - 100 PG/ML) 54.0 Total Protein (6.4 - 8.2 g/dL) 6.6 Albumin (3.4 - 5.0 g/dL) 3.70 Laboratory Tests 07/30 07/30 0304 0306 Coagulation INR (0.8 - 1.2) 1.0 PTT (Maverick) (25.0 - 39.5 Seconds) 28.3 PT Patient/Control Mix (9.3 - 12.9 SECONDS) 11. 2 Plt P2Y12 React Units (182 - 335 PRU) 157 L Laboratory Tests 07/30 0307 Hematology WBC (4.5 - 11.0 x10 3/uL) 11.6 H RBC (4.00 - 5.60 x10 6/uL) 4.62 Hgb (12.5 - 16.9 g/dL) 14.7 Hct (37.5 - 50.7 %) 41.8 MCV (81.0 - 99.0 fL) 90.5 MCH (27.0 - 33.0 pg) 31.8 MCHC (33.0 - 37.0 g/dL) 35.2 RDW (11.5 - 14.5 %) 14.0 Plt Count (150 - 400 x10 3/uL) 248 MPV (7.0 - 9.0 fL) 11.0 H Neut % (Auto) (56.0 - 77.0 %) 57.3 Lymph % (Auto) (14.0 - 32.0 %) 29.6 Stephenson % (Auto) (4.8 - 9.0 %) 11.0 H Eos % (Auto) (0.3 - 3.7 %) 1.4 Baso % (Auto) (0.0 - 2.0 %) 0.4 Neut # (Auto) (2.0 - 7.6 x10 3/uL) 6.63 Lymph # (Auto) (1.0 - 3.8 x10 3/uL) 3.43 Stephenson # (Auto) (0.1 - 0.8 x10 3/uL) 1.28 H Eos # (Auto) (0.0 - 0.2 x10 3/uL) 0.16 Baso # (Auto) (0.0 - 0.2 x10 3/uL) 0.05 Abs Immat Gran (auto) (0.00 - 0.03 x10 3/uL) 0. 04 H Add Manual Diff NO Immature Gran % (0.0 - 2.0 %) 0.3 Nucleated RBC % (0 - 0 %) 0.0 Nucleated RBCs # (Man) (0.0 - 0.1 x10 3/uL) 0.0 0 Laboratory Tests 07/30 030 Serology SARS-CoV-2 Ag (Rapid) (Negative) Negative Laboratory Tests 07/30 0306 Chemistry B-Natriuretic Peptide (0 - 100 PG/ML) 54.0 Results: labs reviewed, vital signs reviewed, vi radha signs stable, rhythm personally rev'd, current med profile rev'd Telemetry Interpretation: Normal sinus rhythm to normal sinus bradycardia Diagnosis, Assessment Plan Consultants: cardiology, cardiovascular surgery Plan discussed with: patient, nurse Free Text DxA P Notes Free Text DxA P Notes: Mr. Daly is a pleasant 66 y/o male w/ PMHx: CAD s/p PCI, HTN, HLD, T2DM, GERD , temporal arteritis (on prednisone) pre sented to [facility] yesterday for elective PCI. Dr. Sainz is consulted for CAD. Patient e xperiences intermittent shortness of breath with exertion for several ye ars and worsen in past few months. He also had chest discomfort w/ exertion few weeks ago; outpatient nuclear stress test was norm al. However, he still experienced w/ PETERSEN, therefore , he scheduled LHC. Per [facility] ent he had PCI w/ stenting on LAD in July 07, 2022 and plan to have a stage PCI yesterday, however, it was not successful; therefore, CTS was consulted for CABG. Patient d enied orthopnea, no PND. No cough, no fever. Reports heartburn and relieved w/ Maalox at home. Workup: CBC and BMP - unremarkable. Vein mapping was done today. Carotid ultrasound was negative for significant stenosis . At present, on RA, NAD. - CAD. s/p LHC: multivessels disease Continue BB, statins, ASA, and Ranexa. on telemtry EF 55 to 60% with grade 1 diastolic dysfunction CABG today canceled d/t platelet response to Pl avix dropped 157 - sometimes next week. Per CTS. - HTN. BP controlled. On Bystolic, Norvasc and Losartan. Hydralazine PRN. - HLD. On statins. - Chronic temporal arteritis. On prednisone. - GERD. Per IM. On Pepcid. Add Maalox PRN. - ETOH. Per IM. Advised cessation. Stable. No CP. MDM per Dr. Chaparro. Electronically Signed by Harper Rae NP on at 1430 Electronically Signed by Denton Chaparro MD on at 1740 RPT #:[id number] END OF REPORT 2022-07-30 05:05:00-00:00 [facility] Cardiothoracic Surgery Prog REPORT#:[id number] REPORT STATUS: Signed DATE:07/30/22 TIME: 0505 PATIENT: MARY DALY UNIT #: [id number] ROOM/BED: 3346-1 : 53 AGE: 66 SEX: M ATTEND: Marlo Loaiza MD ADM AUTHOR: Rosalind Mendez Physic * ALL edits or amendments must be made on the el [email or web address]/computer document * Subjective Chief complaint: Chest Pains, CAD. Review of Systems Constitutional: Denies: fatigue, fever, generalized weakness. Skin: Denies: rash, swelling. Allergy/Immun: Denies: itching, rhinorrhea. ENT: Denies: earache, hearing loss. Respiratory: Denies: SOB, wheezing. Cardiovascular: Denies: edema, orthopnea. GI: Denies: constipation, diarrhea. : Denies: dysuria, hematuria. Musculoskeletal: Denies: joint pain, joint swelling. Heme: Denies: bleeding, bruising. Neuro: Denies: confusion. Psych: Denies: anxiety, confusion. All systems rev neg: except as marked Objective General VS/I O Last Documented: Result Date Time Pulse Ox 97 07/30 312 B/P 155/83 07/30 312 B/P Mean 0.0 07/30 312 O2 Delivery Room air 07/30 312 Temp 97.5 07/30 312 Pulse 49 07/30 312 Resp 14 07/30 312 24 hour I O ending at 0700: 07/30 0700 07/29 1900 Intake Total 250 900 Output Total Balance 250 900 Intake, Oral 250 900 Number Voids 1 5 PATIENT WEIGHT: Weight (lb): 193 Weight (oz): 12.58 Weight (kg): 87.900 Physical Exam General appearance: alert, awake, oriented HEENT: mucosal membranes moist Neck: full range of motion, non-tender Cardiovascular: BP/pulses equal bilat., regular rate rhythm Respiratory: aerating well, clear to auscultatio n Abdomen: soft, non-tender Extremities: dry, moves all Musculoskeletal: full range of motion, painless range of motion Neuro/INSURANCE WRITER: alert, oriented X 3 Skin: dry, intact Diagnosis, Assessment Plan Free Text A P: This is a 66-year gentleman with past medical history of coronary artery disease status post PCI in the past, with most recent in July 07, 2022, history of temporal arteritis on chronic prednisone since 2 017, diverticulitis, gout, hypertension, hyperlipidemia. The patient reports a histor y of exertional shortness of breath with occasional chest pain over the past several weeks. He underwent cardiac work-up with his cardiologi st and left heart cath was performed yesterday. This revealed multivessel CAD. CV surgery consulted for evaluation for coronary bypass graft. The patient reports a histor y of diabetes, diet controlled for the past several years. Patient denies any history of smoking. Patient admits to drinking 1 alcoholic beverage per day Patient has a strong family history of coronary artery disease with coronary bypass graft surgery in his brother Patient continues to take prednisone 3 mg daily for history of temporal arteritis in 2017 Assessment/plan 1. Coronary artery disease Previous PCI with most recent June 2022, hold Pl avix in preparation for surgery. 2. Hypertension 3. Hyperlipidemia 4. Temporal arteritis in 2017 Continues on prednisone 3 mg We will begin work-up for coronary bypass graft surgery. Patient was seen in exam by Dr. Mccurdy. Further recommendations to follow as work-up und erway Thank you for this kind consultation 07/29/22 Patient resting comfortable, denies complaint Patient received Plavix 75 m g on 07/28/2022 , will obtain repeat platelet response to Plavix test in the a.m. Respiratory: On room air Cardiac: Remains sinus rhythm Carotid Doppler shows no significant carotid art jorge stenosis Vein mapping complete Labs reviewed shows WBCs elevated 16 Urinalysis negative Neurology consult for history of temporal arteri tis, appreciate input We will repeat platelet response to Plav ix. Possibly plan for CABG in the a.m. Patient was seen and examined by 07/30/22 Patient resting comfortable. Denies complaints. Respiratory: On room air 100% Cardiac: Sinus rhythm Platelet response to PLavix this AM, 157 Will plan for surgery next week. Patient recived plavix on 07/28/22 Neurology eval underway Patient was seen and examined by Dr. Mccurdy Work-up for coronary artery bypass graft surgery undergoing. Timing of surgery pending Consultants: cardiology, cardiovascular surgery at [address] [facility] #:[id number] END OF REPORT 2022-07-29 22:34:00-00:00 [id number] [address] PATIENT NAME: MARY DALY ADMIT DATE: 07/27/22 ACCOUNT NO: [id number] ROOM NO: G.[id number] AGE: 66 REPORT TYPE: eECHOCARDIOGRAM REPORT SEX: M ADMITTING PHYSICIAN:Anthony Loaiza MD ATTENDING PHYSICIAN:Anthony Loaiza MD *[address] [address] Transthoracic Echocardiogram Patient: Mary Daly Study Date: 07/29/2022 BP: 130 / 66 Location: [facility] URN: [id number] 6182 : 1955 Age: 66 Height: 70 in / 177.8 cm Gender: M Weight: 192 .6 lb / 87.5 kg BMI/BSA: 27.7 kg/m 2 / 2.06 m 2 *Ordering Physician: * Rosalind Mendez *Interpreting Physician: * Denton Chaparro MD *Irrigation District Manager: * PADDY Trammell Indications: PRE OP. Study data: Transthoracic echocardiogram. Proced ure: Transthoracic echocardiography was performed. Images were obta ined using a Aqdot cardiac ultrasound machine. Intravenous contrast (Optiso n, 2 mls) was administered. Complete 2D, complete spectral Dop pler, and color Doppler. Location: Bedside. Patient status: Obse rvation. Patient room number: 3341. Study status: Stat. Findings Left ventricle: The cavity size is normal. Wall thickness is normal. Systolic function is normal. The estimated eject ion fraction is 55-60%. Wall motion is normal; there are no regional wal l motion abnormalities. Doppler parameters are consistent with abnormal left ventricular relaxation (grade 1 diastolic dysfunction). PATIENT NAME: MARY DALY 2 Right ventricle: The cavity size is normal. Syst olic function is normal. Left atrium: The atrium is normal in size. Right atrium: The atrium is normal in size. Aorta: Aortic root: The aortic root is normal in size. Aortic valve: The valve is structurally normal. The valve is trileaflet. There is no evidence of stenosis. Th ere is no regurgitation. Mitral valve: The annulus is mildly calcified. T here is no evidence of stenosis. There is trivial regurgitation. Tricuspid valve: The valve is structurally jessica l. There is mild regurgitation. Pulmonic valve: The valve is structurally normal . The leaflets are normal thickness. There is trivial regurgitation . Pericardium: There is no pericardial effusion. Pulmonary arteries: The main pulmonary artery is normal-sized. Systemic veins: Inferior vena cava: The vessel is normal in size . The respirophasic diameter changes are in the normal range (= 50%) . Measurements Left ventricle Value Ref CHRIS, LAX 5.7 cm 4.2 - 5.8 ESD, LAX 4.0 cm 2.5 - 4.0 ESD/bsa, LAX 1.9 cm/m 2 1.3 - 2.1 FS, LAX 30 % 25 - 43 ESD/bsa major 3.4 cm/m 2 --------- ax, A4C CHRIS/bsa minor 3.4 cm/m 2 --------- ax, A4C CHRIS major ax, 8.2 cm --------- A2C ESD major ax, 6.0 cm --------- A2C CHRIS/bsa major 4.0 cm/m 2 --------- ax, A2C ESD/bsa major 2.9 cm/m 2 --------- ax, A2C PW, ED 1.0 cm 0.6 - 1.0 IVS/PW, ED 1.03 --------- EF 57 % 52 - 72 E', lat nika, 7.8 cm/sec >=10.0 TDI E/e', lat nika, 12 --------- TDI E', med nika, 6.8 cm/sec >=7.0 TDI E/e', med nika, 14 --------- TDI E', avg, TDI 7.3 cm/sec --------- E/e', avg, TDI 13 <=14 PATIENT NAME: MARY DALY 2 LVOT Value Ref Diam, S 1.93 cm --------- Area 2.9 cm 2 --------- Peak edilberto, S 0.9 m/sec --------- Mean edilberto, S 0.58 m/sec --------- VTI, S 22.1 cm --------- Peak grad, S 3 mm Hg --------- Mean grad, S 2 mm Hg --------- SV 64 ml --------- Qs 3.7 L/min --------- Qs/bsa 1.8 L/(min-m 2) --------- SV/bsa 31 ml/m 2 --------- Ventricular septum Value Ref IVS, ED 1.0 cm 0.6 - 1.0 Right ventricle Value Ref TAPSE, MM 2.1 cm 1.7 - 3.1 Left atrium Value Ref AP dim, ES 4.50 cm 3.00 - 4.00 Vol/bsa, ES, 16 ml/m 2 12 - 37 1-p A4C Vol, ES, 2-p 50 ml --------- Vol/bsa, ES, 24 ml/m 2 16 - 34 2-p Vol/bsa, ES, 17 ml/m 2 16 - 34 A/L Right atrium Value Ref Area, ES 13 cm 2 10 - 18 SI dim, ES, A4C 6.5 cm 3.4 - 5.3 SI dim/bsa, ES, 3.2 cm/m 2 1.8 - 3.0 A4C Vol, ES, A/L 23 ml --------- Vol, ES, 1-p 22 ml --------- A4C Vol/bsa, ES, 11 ml/m 2 11 - 39 1-p A4C Aortic valve Value Ref Peak v, S 1.45 m/sec --------- Mean v, S 0.95 m/sec --------- VTI, S 31.1 cm --------- Mean grad, S 4.3 mm Hg --------- Peak grad, S 8.5 mm Hg --------- LVOT/AV, VTI 0.71 --------- ratio RICHARD, VTI 2.07 cm 2 --------- LVOT/AV, Vpeak 0.62 --------- ratio RICHARD, Vmax 1.80 cm 2 --------- PATIENT NAME: MARY DALY 2 Mitral valve Value Ref Peak E 0.07 m/sec --------- Peak A 1 m/sec --------- Decel time 213 ms --------- PHT 42 ms --------- Peak E/A ratio 0.93 --------- MVA, PHT 5.2 cm 2 --------- Pulmonic valve Value Ref SD v, ED 0.58 m/sec --------- Tricuspid valve Value Ref TR peak v 1.21 m/sec <=2.8 Peak RV-RA 6 mm Hg --------- lenny S Conclusions Summary: 1. Left ventricle: The cavity size is normal. Wa ll thickness is normal. Systolic function is normal. The estimated ejec tion fraction is 55-60%. Wall motion is normal; there are no reg ional wall motion abnormalities. Doppler parameters are consisten t with abnormal left ventricular relaxation (grade 1 diastolic dysfu nction). 2. Mitral valve: The annulus is mildly calcified . Prepared and electronically signed by Denton Chaparro MD 07/29/2022 22:34 at 2234 PATIENT NAME: MARY DALY 2 2022-07-29 15:52:00-00:00 [facility] Neurology Consultation Note REPORT#:[id number] REPORT STATUS: Signed DATE:07/29/22 TIME: 1551 PATIENT: MARY DALY UNIT #: [id number] ROOM/BED: [place] [address] : 53 AGE: 66 SEX: M ATTEND: Marcella Loaiza od, MD ADM AUTHOR: Frieda Abdi [employer]RECTION OFF[employer] [place] [employer] * ALL edits or amendments must be made on the [employer]/computer document * Frieda Abdi 07/29/22 1552: History of Present Illness HPI Requesting clinician: Anthony Loaiza MD Reason for consult: H/O Temporal Arteritis, Pre-op CABG PCP: PCP: Albino Torre MD HPI: Mr. Daly is a 66-year-old male with a past [facility] history of hypertension, hyperlipidemia, diverticulitis, CA, gout, tempor al arteritis and CAD who was admitted to [facility] on July 28 electively for a lef t heart cath. Patient reports he has been experiencing chest tightness and alexandra rtness of breath, even after having a normal stress test a few weeks ago according to the patient. Left Heart cath done on July 28, 2022, s howed multivessel coronary artery disease, prompting CVT consultation for possible CABG. Curr ently, patient denies having any chest pain, shortness of breath, weakness, dizziness, visual, speech or gait disturbances. He denies any prior history of str geraldo, seizures , arrhythmia or migraines. He has been takin g Plavix for the coronary artery disease, which was stopped on yesterday. In terms of the te mporal arteritis, he had a biospy done and has been on low-dose prednisone 3 mg since 2 017. Neurology consult was requested for evaluation. History - Adult longitudinal Past medical history: Reports: Coronary artery dis ease, Hypertension, Dyslipidemia, Prior CA, Steroid use. Additional medical history: Temproal arteritis (2017) Additional surgical history: Colon resection 2008 secondary to diverticulitis C3 surgery Family history: Reports: Heart disease (brother). Alcohol use: Alcohol use (1-7 drinks per week) Drug use: Denies recreational drugs Smoking status for patients 13 years old or olde r: Never Smoker Ambulatory status: Independent Review of Systems Free Text ROS Notes Free Text ROS Notes: 14 point system reviewed and negative with excep tion of what is in HPI Objective General VS: Last Documented: Result Date Time Pulse Ox 94 / 1504 B/P 144/79 / 1504 B/P Mean 0.0 / 1504 Temp 97.9 /08 1504 Pulse 54 /08 1504 Resp 18 / 1504 O2 Delivery Room air 07/29 1149 PATIENT WEIGHT: Weight (lb): 193 Weight (oz): 12.58 Weight (kg): 87.900 Medications Current Home Medications ATORVASTATIN (LIPITOR) 10 MG PO DAILY CIPROFLOXACIN (CIPRO) 500 MG PO DAILY PRN DIVERT ICULITIS CLOPIDOGREL (PLAVIX) 75 MG PO DAILY metroNIDAZOLE (FLAGYL) 500 MG PO TID PRN DIVERTI CULITIS NEBIVOLOL (BYSTOLIC) 20 MG PO BID OMEPRAZOLE ER (PriLOSEC) 40 MG PO DAILY PRN ACID REFLUX predniSONE 1 MG PO TID SILDENAFIL (VIAGRA) 100 MG PO DAILY PRN PRN ED SODIUM FLUORIDE (PREVIDENT 5000 1.1% DENTAL) 1 A PPLIC TOPICAL DAILY ASPIRIN 81 MG PO DAILY POTASSIUM GLUCONATE 1 TAB PO DAILY CALCIUM CARBONATE (CALTRATE 600 MG) 600 MG PO DA SHIMON CHOLECALCIFEROL (VITAMIN D3) (VITAMIN D3) 1,000 UNITS PO DAILY ACETAMINOPHEN (TYLENOL) 500 MG PO Q4H PRN PRN PA IN IBUPROFEN (ADVIL) 200 MG PO Q6H PRN PRN PAIN FAMOTIDINE (PEPCID) 20 MG PO DAILY amLODIPine (NORVASC) 10 MG PO DAILY LOSARTAN (COZAAR) 50 MG PO DAILY Active Meds + DC'd Last 24 Hrs Carboxymethylcellulose Sodium (REFRESH TEARS) 1 DROP QID PRN EACH EYE Docusate Sodium (COLACE) 100 MG BID PO Ranolazine (RANEXA 500MG TAB) 500 MG Q12HR PO Al Hydrox/Mg Hydrox/Simethicone (MYLANTA) 30 ML Q4H PRN PRN PO Hydralazine HCl (APRESOLINE) 50 MG Q6H PRN PRN P O Amlodipine Besylate (NORVASC) 10 MG DAILY PO Aspirin (ASPIRIN) 81 MG DAILY PO Famotidine (PEPCID) 20 MG DAILY PO Losartan Potassium (COZAAR) 50 MG DAILY PO Prednisone (predniSONE) 2 MG C BK PO Atorvastatin Calcium (LIPITOR) 10 MG BEDTIME PO Nebivolol (BYSTOLIC) 20 MG BEDTIME PO Prednisone (predniSONE) 1 MG BEDTIME PO Acetaminophen (TYLENOL EXTRA STRENGTH) 500 MG Q4 H PRN PRN PO Atropine Sulfate (ATROPINE SULFATE 0.1MG/ML SYR) 0.5 MG ASDIR PRN IV Sodium Chloride (SODIUM CHLORIDE 0.9%) 500 ML DIR PRN IV Physical Exam Neuro comment: GEN: NAD, Calm and Cooperative HEENT: NC/AT, Anicteric Sclera, Mucous Membranes are moist CV: Brisk Cap Refill/Palpable peripheral pulses RESP: Chest Expansion is symmetric, non-labored breathing EXTREM: No peripheral Edema Neuro Exam: Mental Status: A, A, O x4, cooperative, good fun d of knowledge Naming, comprehension, repetition intact. Follow simple and 3-step verbal commands Language: Fluency intact, no aphasia or dysarthr ia Coordination: Normal Finger to nose exam, No dys metria or tremor Cranial Nerves: II: Pupils equal and symmetric, Brisk and reacti ve to light bilaterally III, IV, : EOM intact, No gaze preference, No visual field deficit, No nystagmus V, VII: Normal Sensation to V1, V2, V3 d istribution bilaterally, Normal facial expression, No facial paresis or Nasolabial fold flattening . VIII: Hearing is intact to speech IX, X: Soft palate elevates normally, Uvula to t he midline XI, XII: Normal strength to SCM bilaterally. Ton alejandro protrudes to the midline Motor: Normal Tone and muscle bulk in all extrem ities RUE: 5/5 Strength with Shoulder Abductors/Adduct ors, Elbow flexors/extensors, wrist flexors/extensors and Finger abductors/add uctors LUE: 5/5 Strength with Shoulder Abductors/Adduct ors, Elbow flexors/extensors, wrist flexors/extensors and Finger abductors/add uctors RLE: 5/5 Strength with hip flexors/extensors, kn ee flexors/extensors, ankle dorsiflexors and plantar flexors LLE: 5/5 Strength with hip flexors/extensors, kn ee flexors/extensors, ankle dorsiflexors and plantar flexors Sensory: Normal Sensation to Light touch, Pinpri ck, Temperature, in all extremities Deep Tendon Reflexes: +2 and symmetric to Biceps, Triceps, Brachioradi favian, Knees and Ankles Plantar Responses: Flexor bilaterally Gait /Station: Normal, No Truncal Instability, N egative Romberg Results Findings/Data: Laboratory Tests 07/29 07/29 0304 0304 Chemistry Sodium (134 - 147 mEq/L) 139 Potassium (3.4 - 5.0 mEq/L) 4.2 Chloride (100 - 108 mEq/L) 106 Carbon Dioxide (21 - 33 mEq/l) 26 Anion Gap (0 - 20) 12 BUN (7 - 18 mg/dL) 17 Creatinine (0.6 - 1.3 mg/dL) 1.0 Glomerular Filtr Rate (80 - 90) 82.0 Glucose (70 - 110 mg/dL) 113 H Hemoglobin A1c (4.8 - 6.0 %A1C) 6.2 H Calcium (8.0 - 10.5 mg/dL) 9.0 Total Bilirubin (0.0 - 1.0 mg/dL) 0.30 AST (15 - 37 IUnit/L) 16 ALT (30 - 65 IUnit/L) 20 L Total Alk Phosphatase (20 - 125 IUnit/L) 61 Total Protein (6.4 - 8.2 g/dL) 6.2 L Albumin (3.4 - 5.0 g/dL) 3.40 Laboratory Tests 07/29 0304 Hematology WBC (4.5 - 11.0 x10 3/uL) 16.0 H RBC (4.00 - 5.60 x10 6/uL) 4.27 Hgb (12.5 - 16.9 g/dL) 13.5 Hct (37.5 - 50.7 %) 38.4 MCV (81.0 - 99.0 fL) 89.9 MCH (27.0 - 33.0 pg) 31.6 MCHC (33.0 - 37.0 g/dL) 35.2 RDW (11.5 - 14.5 %) 14.0 Plt Count (150 - 400 x10 3/uL) 233 MPV (7.0 - 9.0 fL) 11.2 H Seg Neutrophils % (37 - 69 %) 83.6 H Band Neutrophils % (0.0 - 10.0 %) 0.0 Lymphocytes % (Manual) (23 - 55 %) 10.9 L Monocytes % (Manual) (0 - 10 %) 5.5 Platelet Estimate (ADEQUATE THOUSAND) Adequate Anisocytosis NORMAL Laboratory Tests 07/28 2009 Urines Urine Color (YEL/STRAW) YELLOW Urine Appearance (CLEAR) CLEAR Urine pH (5.0 - 7.0) 5.0 Ur Specific [place] (1.005 - 1.030) 1.017 Urine Protein (NEGATIVE) NEGATIVE Urine Glucose (UA) (NEGATIVE) NEGATIVE Urine Ketones (NEGATIVE) NEGATIVE Urine Blood (NEGATIVE) NEGATIVE Urine Nitrite (NEGATIVE) NEGATIVE Urine Bilirubin (NEGATIVE) NEGATIVE Urine Urobilinogen (0.2 - 1.0 mg/dL) 0.2 Ur Leukocyte Esterase (NEGATIVE) NEGATIVE Urine RBC (0 - 3 RBC/HPF) 0-3 Urine WBC (0 - 3 WBC/HPF) 0-3 Ur Squamous Epith Cells (NONE SEEN /HPF) 0-5 Urine Bacteria (NONE SEEN /HPF) NONE SEEN Urine Mucus (NONE SEEN /LPF) TRACE Diagnosis, Assessment Plan Consultants: cardiology, cardiovascular surgery Plan discussed with: patient, collaborating MD Free Text DxA P Notes Free text DxA P notes: This is a 66-year-old male with a past medical h istory of hypertension, hyperlipidemia, diverticulitis, CA, gout, tempor al arteritis and CAD who was admitted to [facility] on July 28 electively for a lef t heart cath. Neuro exam demonstrates no focal deficits. Impression: Multivessel coronary artery disease H/O Temporal Arteritis Prior CA with PCI Hypertension Plan: We will proceed with vessel imaging of head and neck to rule out any stenosis or occlusions given history of temporal arteritis w hich has been managed by low- dose prednisone use. Currently on Lipitor and aspirin therapy with Pl avix being stopped in anticipation of surgical intervention. Recent labs reviewed. Neurology will follow up o n imaging. Neurologist examined the patient, personally rev iewed all pertinent data including imaging and Formulated the plan of car e with recommendations as documented above with the Nurse practitioner. AP P distinctive service time , reviewing chart, tests resul ts, education, counseling and coordinating care : 40 Minutes. ANTOLIN and Physician shared Service Time : 7 minutes discussing Diagnosis , Exam and Plan of Care. Frieda Abdi, ESTEVAN-CORRECTION OFF[employer]ER [place] [employer] for Anatoliy Fallon MD [facility] [place] [facility] Fallon 07/29/22 6852: History - Adult longitudinal Allergies: Coded Allergies: hydromorphone (From DILAUDID) (Severe, THROAT SW ELLS 07/27/22) crab (Intermediate, ITCHING, CHILLS 07/27/22) doxepin (Intermediate, AFFECTS MEMORY, INSOMNIA 07/27/22) oyster extract (Intermediate, ITCHING 07/27/22) tamsulosin (Intermediate, ABNORMAL EJACULATION, FLU SYMPTOMS, FEVER 07/27/22) dexlansoprazole (UNKOWN 07/27/22) eszopiclone (From LUNESTA) (UNKNOWN 07/27/22) levofloxacin (UNKNOWN 07/27/22) meperidine (UNKNOWN 07/27/22) doxycycline (Mild, CRAMPS 07/27/22) diclofenac (DIARRHEA 07/27/22) Uncoded Allergies: CRAWFISH (Severe, THROAT SWELLS 07/23/22) Attestations Physician Attestation Reviewed findings plan: Reviewed the findings and plan as documented by Frieda Green NP. Patient denies any history of stroke or prior st roke like symptoms. Patient reports that he was diagnosed with GCA before after complaining to his ophthalmo logist about vision loss in the right eye as well as retroorbital headache. He is biopsy prov en and remains on low dose steroids to this day. Exam as noted above: Given request for further evaluation of preopera tive risk by CV surgery in setting of GCA we can obtain a CTA head and neck to further evaluate for larger artery disease as there is some association betw een the two. However, any changes in this patient in terms of his large ar teries are more likely to be atherosclerotic in origin. His ICA appea r widely patent on doppler but limited eval of the posterior circulation is available w ith that modality. Physician specific service time 30min Electronically Signed by Sam Fallon MD 07/29/22 at 2123 at 1401 RPT #:[id number] END OF REPORT 2022-07-29 09:39:00-00:00 [facility] Cardiothoracic Surgery Prog REPORT#:[id number] REPORT STATUS: Signed DATE:07/29/22 TIME: 09 PATIENT: MARY DALY UNIT #: [id number] ROOM/BED: 3346-1 : 53 AGE: 66 SEX: M ATTEND: Marcella Loaiza od, MD ADM AUTHOR: Rosalind Mendez Physic * ALL edits or amendments must be made on the el [employer]/computer document * Subjective Chief complaint: Chest Pains, CAD. Review of Systems Constitutional: Denies: fatigue, fever, generalized weakness. Skin: Denies: rash, swelling. Allergy/Immun: Denies: itching, rhinorrhea. ENT: Denies: earache, hearing loss. Respiratory: Denies: SOB, wheezing. Cardiovascular: Denies: edema, orthopnea. GI: Denies: constipation, diarrhea. : Denies: dysuria, hematuria. Musculoskeletal: Denies: joint pain, joint swelling. Heme: Denies: bleeding, bruising. Neuro: Denies: confusion. Psych: Denies: anxiety, confusion. All systems rev neg: except as marked Objective General VS/I O Last Documented: Result Date Time Pulse Ox 94 07/29 716 B/P 144/74 07/29 716 B/P Mean 0.0 07/29 716 O2 Delivery Room air 07/29 716 Temp 97.7 07/29 716 Pulse 53 07/29 716 Resp 18 07/29 716 24 hour I O ending at 0700: 07/29 1900 Intake Total 240 1080 Output Total Balance 240 1080 Intake, Oral 240 1080 Number 0 Bowel Movements Number Voids 3 6 Patient 87.9 kg Weight Weight Standing scale Measurement Method PATIENT WEIGHT: Weight (lb): 193 Weight (oz): 12.58 Weight (kg): 87.900 Physical Exam General appearance: alert, awake, oriented HEENT: mucosal membranes moist Neck: full range of motion, non-tender Cardiovascular: BP/pulses equal bilat., regular rate rhythm Respiratory: aerating well, clear to auscultatio n Abdomen: soft, non-tender Extremities: dry, moves all Musculoskeletal: full range of motion, painless range of motion Neuro/INSURANCE WRITER: alert, oriented X 3 Skin: dry, intact Results Findings/Data: Laboratory Tests 07/29 07/29 0304 0304 Chemistry Sodium (134 - 147 mEq/L) 139 Potassium (3.4 - 5.0 mEq/L) 4.2 Chloride (100 - 108 mEq/L) 106 Carbon Dioxide (21 - 33 mEq/l) 26 Anion Gap (0 - 20) 12 BUN (7 - 18 mg/dL) 17 Creatinine (0.6 - 1.3 mg/dL) 1.0 Glomerular Filtr Rate (80 - 90) 82.0 Glucose (70 - 110 mg/dL) 113 H Hemoglobin A1c (4.8 - 6.0 %A1C) 6.2 H Calcium (8.0 - 10.5 mg/dL) 9.0 Total Bilirubin (0.0 - 1.0 mg/dL) 0.30 AST (15 - 37 IUnit/L) 16 ALT (30 - 65 IUnit/L) 20 L Total Alk Phosphatase (20 - 125 IUnit/L) 61 Total Protein (6.4 - 8.2 g/dL) 6.2 L Albumin (3.4 - 5.0 g/dL) 3.40 Laboratory Tests 07/29 0304 Hematology WBC (4.5 - 11.0 x10 3/uL) 16.0 H RBC (4.00 - 5.60 x10 6/uL) 4.27 Hgb (12.5 - 16.9 g/dL) 13.5 Hct (37.5 - 50.7 %) 38.4 MCV (81.0 - 99.0 fL) 89.9 MCH (27.0 - 33.0 pg) 31.6 MCHC (33.0 - 37.0 g/dL) 35.2 RDW (11.5 - 14.5 %) 14.0 Plt Count (150 - 400 x10 3/uL) 233 MPV (7.0 - 9.0 fL) 11.2 H Laboratory Tests 07/28 2009 Urines Urine Color (YEL/STRAW) YELLOW Urine Appearance (CLEAR) CLEAR Urine pH (5.0 - 7.0) 5.0 Ur Specific [place] (1.005 - 1.030) 1.017 Urine Protein (NEGATIVE) NEGATIVE Urine Glucose (UA) (NEGATIVE) NEGATIVE Urine Ketones (NEGATIVE) NEGATIVE Urine Blood (NEGATIVE) NEGATIVE Urine Nitrite (NEGATIVE) NEGATIVE Urine Bilirubin (NEGATIVE) NEGATIVE Urine Urobilinogen (0.2 - 1.0 mg/dL) 0.2 Ur Leukocyte Esterase (NEGATIVE) NEGATIVE Urine RBC (0 - 3 RBC/HPF) 0-3 Urine WBC (0 - 3 WBC/HPF) 0-3 Ur Squamous Epith Cells (NONE SEEN /HPF) 0-5 Urine Bacteria (NONE SEEN /HPF) NONE SEEN Urine Mucus (NONE SEEN /LPF) TRACE Diagnosis, Assessment Plan Free Text A P: This is a 66-year gentleman with past medical history of coronary artery disease status post PCI in the past, with most recent in July 07, 2022, history of temporal arteritis on chronic prednisone since 2 017, diverticulitis, gout, hypertension, hyperlipidemia. The patient reports a histor y of exertional shortness of breath with occasional chest pain over the past several weeks. He underwent cardiac work-up with his cardiologi st and left heart cath was performed yesterday. This revealed multivessel CAD. CV surgery consulted for evaluation for coronary bypass graft. The patient reports a histor y of diabetes, diet controlled for the past several years. Patient denies any history of smoking. Patient admits to drinking 1 alcoholic beverage per day Patient has a strong family history of coronary artery disease with coronary bypass graft surgery in his brother Patient continues to take prednisone 3 mg daily for history of temporal arteritis in 2017 Assessment/plan 1. Coronary artery disease Previous PCI with most recent June 2022, hold Pl avix in preparation for surgery. 2. Hypertension 3. Hyperlipidemia 4. Temporal arteritis in 2017 Continues on prednisone 3 mg We will begin work-up for coronary bypass graft surgery. Patient was seen in exam by Dr. Mccurdy. Further recommendations to follow as work-up und erway Thank you for this kind consultation 07/29/22 Patient resting comfortable, denies complaint Patient received Plavix 75 m g on 07/28/2022 , will obtain repeat platelet response to Plavix test in the a.m. Respiratory: On room air Cardiac: Remains sinus rhythm Carotid Doppler shows no significant carotid art jorge stenosis Vein mapping complete Labs reviewed shows WBCs elevated 16 Urinalysis negative Neurology consult for history of temporal arteri tis, appreciate input We will repeat platelet response to Plav ix. Possibly plan for CABG in the a.m. Patient was seen and examined by Consultants: cardiology, cardiovascular surgery at 1720 at 1552 RPT #:[id number] END OF REPORT 2022-07-29 09:16:00-00:00 [facility] Hospitalist Progress Note REPORT#:[id number] REPORT STATUS: Signed DATE:07/29/22 TIME: 915 PATIENT: MARY ADLY UNIT #: [id number] ROOM/BED: [place] [address] : 53 AGE: 66 SEX: M ATTEND: Marcella Loaiza od, MD ADM AUTHOR: Luther Martin [employer] * ALL edits or amendments must be made on the [employer]/computer document * Luther Martin 07/29/22 0916: Subjective Chief complaint: He is feeling better. NO CP, fever, chills. NO N/v/d. His HR is high, A-fib. BP is stable. Review of Systems Constitutional: Reports: fatigue, generalized weakness. Allergy/Immun: Denies: anaphylaxis, hives, rhinorrhea. Respiratory: Denies: PETERSEN (dyspnea on exertion), parox nocturn al dyspnea, pleuritic pain, productive cough (sputum), SOB. Cardiovascular: Denies: PETERSEN (dyspnea on exertion), orthopnea, pa lpitations. GI: Denies: abdominal pain, diarrhea, GERD, hemateme sis, hiatal hernia, nausea. : Denies: frequency, nocturia, penile lesion. Heme: Denies: bleeding, bruising. Neuro: Denies: change in LOC, focal weakness, lightheaded, seizure, spinning sensation, unable to speak. Objective General VS/I O: Vital Signs: Date Time Temp Pulse Resp B/P B/P Pulse O2 O2 F low FiO2 Mean Ox Delivery Rate / 0717 36.5 53 18 144/74 0.0 94 Room air 06/08 0700 48 10 94 /08 0600 57 14 94 06/08 0500 52 19 93 06/08 0400 55 20 94 06/08 0348 36.8 57 20 151/83 105.9 96 Room air 06/08 0300 50 12 93 06/08 0200 59 16 93 06/08 0100 62 19 95 06/08 0000 57 12 99 06/07 2319 36.5 60 16 125/74 91.1 97 Room air 06/07 2300 58 17 93 06/07 2100 59 19 92 06/07 1900 62 20 94 06/07 1847 36.5 62 18 147/71 0.0 96 Room air 06/07 1719 36.6 91 18 163/81 0.0 97 Room air 06/07 1210 36.4 67 18 151/77 0.0 96 Room air 24 hour I O ending at 0700: 06/08 0700 06/07 1900 Intake Total 240 1080 Output Total Balance 240 1080 Intake, Oral 240 1080 Number 0 Bowel Movements Number Voids 3 6 Patient 87.9 kg Weight Weight Standing scale Measurement Method PATIENT WEIGHT: Weight (lb): 193 Weight (oz): 12.58 Weight (kg): 87.900 Medications: Active Meds + DC'd Last 24 Hrs Carboxymethylcellulose Sodium (REFRESH TEARS) 1 DROP QID PRN EACH EYE Docusate Sodium (COLACE) 100 MG BID PO Ranolazine (RANEXA 500MG TAB) 500 MG Q12HR PO Al Hydrox/Mg Hydrox/Simethicone (MYLANTA) 30 ML Q4H PRN PRN PO Hydralazine HCl (APRESOLINE) 50 MG Q6H PRN PRN P O Amlodipine Besylate (NORVASC) 10 MG DAILY PO Aspirin (ASPIRIN) 81 MG DAILY PO Clopidogrel Bisulfate (Plavix) 75 MG DAILY PO (D C) Famotidine (PEPCID) 20 MG DAILY PO Losartan Potassium (COZAAR) 50 MG DAILY PO Prednisone (predniSONE) 2 MG C BK PO Atorvastatin Calcium (LIPITOR) 10 MG BEDTIME PO Nebivolol (BYSTOLIC) 20 MG BEDTIME PO Prednisone (predniSONE) 1 MG BEDTIME PO Acetaminophen (TYLENOL EXTRA STRENGTH) 500 MG Q4 H PRN PRN PO Atropine Sulfate (ATROPINE SULFATE 0.1MG/ML SYR) 0.5 MG ASDIR PRN IV Sodium Chloride (SODIUM CHLORIDE 0.9%) 500 ML DIR PRN IV Dietitian nutrition assessment The data set between the solid lines has been im ported from the dietitian's assessment. BMI Calculated: 27.8 Nutrition related diagnosis: Nutrition diagnosis details: Nutrition problem: Nutrition etiology: Nutrition signs and symptoms: Nutrition prescription: Dietitian name: Assessment completed: Physical Exam General appearance: alert, awake, oriented Head/Eyes: atraumatic, normocephalic, PERRLA Cardiovascular: normal capillary refill, normal heart sounds, regular rate rhythm Respiratory: aerating well, symmetric expansion, no distress Abdomen: non-tender, normal bowel sounds, soft Genitourinary: no bladder distention, no flank p ain, no urinary catheter Extremities: no calf tenderness, no clubbing, no cyanosis Musculoskeletal: no CVA tenderness, no muscle sp asm Neuro/INSURANCE WRITER: alert, oriented X 3, CNII-XII intact Skin: dry, intact Results Findings/Data: Laboratory Tests 07/294 0304 Chemistry Sodium (134 - 147 mEq/L) 139 Potassium (3.4 - 5.0 mEq/L) 4.2 Chloride (100 - 108 mEq/L) 106 Carbon Dioxide (21 - 33 mEq/l) 26 Anion Gap (0 - 20) 12 BUN (7 - 18 mg/dL) 17 Creatinine (0.6 - 1.3 mg/dL) 1.0 Glomerular Filtr Rate (80 - 90) 82.0 Glucose (70 - 110 mg/dL) 113 H Hemoglobin A1c (4.8 - 6.0 %A1C) 6.2 H Calcium (8.0 - 10.5 mg/dL) 9.0 Total Bilirubin (0.0 - 1.0 mg/dL) 0.30 AST (15 - 37 IUnit/L) 16 ALT (30 - 65 IUnit/L) 20 L Total Alk Phosphatase (20 - 125 IUnit/L) 61 Total Protein (6.4 - 8.2 g/dL) 6.2 L Albumin (3.4 - 5.0 g/dL) 3.40 Laboratory Tests 07/28 0922 Coagulation Plt P2Y12 React Units (182 - 335 PRU) 164 L Laboratory Tests 07/29 0304 Hematology WBC (4.5 - 11.0 x10 3/uL) 16.0 H RBC (4.00 - 5.60 x10 6/uL) 4.27 Hgb (12.5 - 16.9 g/dL) 13.5 Hct (37.5 - 50.7 %) 38.4 MCV (81.0 - 99.0 fL) 89.9 MCH (27.0 - 33.0 pg) 31.6 MCHC (33.0 - 37.0 g/dL) 35.2 RDW (11.5 - 14.5 %) 14.0 Plt Count (150 - 400 x10 3/uL) 233 MPV (7.0 - 9.0 fL) 11.2 H Laboratory Tests 07/28 2009 Urines Urine Color (YEL/STRAW) YELLOW Urine Appearance (CLEAR) CLEAR Urine pH (5.0 - 7.0) 5.0 Ur Specific [place] (1.005 - 1.030) 1.017 Urine Protein (NEGATIVE) NEGATIVE Urine Glucose (UA) (NEGATIVE) NEGATIVE Urine Ketones (NEGATIVE) NEGATIVE Urine Blood (NEGATIVE) NEGATIVE Urine Nitrite (NEGATIVE) NEGATIVE Urine Bilirubin (NEGATIVE) NEGATIVE Urine Urobilinogen (0.2 - 1.0 mg/dL) 0.2 Ur Leukocyte Esterase (NEGATIVE) NEGATIVE Urine RBC (0 - 3 RBC/HPF) 0-3 Urine WBC (0 - 3 WBC/HPF) 0-3 Ur Squamous Epith Cells (NONE SEEN /HPF) 0-5 Urine Bacteria (NONE SEEN /HPF) NONE SEEN Urine Mucus (NONE SEEN /LPF) TRACE Radiology data: Recent Impressions: ULTRASOUND - DUP [place] 07/28 1144 Report Impression - Status: SIGNED Entered: 07/28/2022 1155 Impression: 1. Vein mapping of the greater saphenous veins b ilaterally as above. Impression By: Heri Marrero M.D. ULTRASOUND - DUP EXTRACRANIAL LAKE 07/28 1144 Report Impression - Status: SIGNED Entered: 07/28/2022 1159 IMPRESSION: 1. No ultrasound evidence for hemodynamically si gnificant stenosis to either carotid artery. Consensus panel Doppler US criteria for diagnosi s of ICA stenosis: Stenosis (%) ICA PSV (cm/sec) ICA/CCA ratio <50 <180 <2.0 50-69 180-230 2.0-4.0 >70 but less than >230 >4.0 near occlusion Near occlusion High, low, or Variable undetectable Impression By: Heri Marrero M.D. CAT SCAN - CT CHEST W/O CONTRAST 07/28 1303 Report Impression - Status: SIGNED Entered: 07/28/2022 1701 IMPRESSION: Severe coronary artery calcification. Otherwise, no significant chest abnormalities. Impression By: GeronimoVBZac Choudhary M.D. Results: labs reviewed, vital signs reviewed, vi radha signs stable, current med profile rev'd Treatment Prophylaxis Treatment Prophylaxis Oxygen: room air Diagnosis, Assessment Plan Consultants: cardiology, cardiovascular surgery Code status: full code Plan discussed with: patient, admitting physicia n, consultants, nurse Free Text DxA P Notes Free text DxA P notes: Assessment and Plan: - Multivessel CAD. - CP due to CAD. - HX of HTN/HLD and CAD. Plan: CVN1. Will DC Plavix. Will go for CBAG either Tuesday or Tuesday. Pre op work up per CV surgery. Pain meds. Antiemetics. Continue BB, Lipitor and ASA. Follow labs and repalce as needed. Monitor. Anthony Loaiza 07/29/22 2114: Attestations Physician Attestation Agree w/findings plan: Patient seen and examined, I agree with the findings and plans as discussed with and documented by Luther Montiel NP Electronically Signed by Luther Martin NP on 10/13 at 0919 Electronically Signed by Anthony Loaiza MD on 0 07/29/22 at 2143 RPT #:[id number] END OF REPORT 2022-07-29 07:32:00-00:00 [facility] Cardiology Progress Note REPORT#:[id number] REPORT STATUS: Signed DATE:07/29/22 TIME: 731 PATIENT: MARY DALY UNIT #: [id number] [place] [facility] [place] [place] 53 AGE: 66 SEX: M ATTEND: Marcella Loaiza od, MD ADM AUTHOR: Denton Chaparro MD * ALL edits or amendments must be made on the [email or web address] document * Subjective Chief complaint: No change sob HPI: Mr. Daly is a pleasant 66 y/o male w/ PMHx: CAD s/p PCI, HTN, HLD, T2DM, GERD , temporal arteritis (on prednisone) pre sented to [facility] yesterday for elective PCI. Dr. Sainz is consulted for CAD. Patient e xperiences intermittent shortness of breath with exertion for several ye ars and worsen in past few months. He also had chest discomfort w/ exertion few weeks ago; outpatient nuclear stress test was norm al. However, he still experienced w/ PETERSEN, therefore , he scheduled LHC. [facility] he [facility] PCI w/ stenting on LAD in July 07, 2022 and plan to have a stage PCI yesterday, however, it was not successful; therefore, CTS was consulted for CABG. Patient d enied orthopnea, no PND. No cough, no fever. Reports heartburn and relieved w/ Maalox at home. Workup: CBC and BMP - unremarkable. Vein mapping was done today. Carotid ultrasound was negative for significant stenosis . At present, on . Objective General VS/I O: 24 hour I O ending at 0700: 06/08 0700 06/ 1900 Intake Total 240 1080 Output Total Balance 240 1080 Intake, Oral 240 1080 Number 0 Bowel Movements Number Voids 3 6 Patient 87.9 kg Weight Weight Standing scale Measurement Method Vital Signs: Date Time Temp Pulse Resp B/P B/P Pulse O2 O2 F low FiO2 Mean Ox Delivery Rate / 0717 97.7 53 18 144/74 0.0 94 Room air 06/08 0700 48 10 94 06/08 0600 57 14 94 06/08 0500 52 19 93 06/08 0400 55 20 94 06/08 0348 98.2 57 20 151/83 105.9 96 Room air 06/08 0300 50 12 93 06/08 0200 59 16 93 06/08 0100 62 19 95 06/08 0000 57 12 99 06/07 2319 97.7 60 16 125/74 91.1 97 Room air 06/07 2300 58 17 93 06/07 2100 59 19 92 06/07 1900 62 20 94 06/07 1847 97.7 62 18 147/71 0.0 96 Room air 06/07 1719 97.9 91 18 163/81 0.0 97 Room air 06/07 1210 97.5 67 18 151/77 0.0 96 Room air PATIENT WEIGHT: Weight (lb): 193 Weight (oz): 12.58 Weight (kg): 87.900 Medications: Active Meds + DC'd Last 24 Hrs Carboxymethylcellulose Sodium (REFRESH TEARS) 1 DROP QID PRN EACH EYE Docusate Sodium (COLACE) 100 MG BID PO Ranolazine (RANEXA 500MG TAB) 500 MG Q12HR PO Al Hydrox/Mg Hydrox/Simethicone (MYLANTA) 30 ML Q4H PRN PRN PO Hydralazine HCl (APRESOLINE) 50 MG Q6H PRN PRN P O Amlodipine Besylate (NORVASC) 10 MG DAILY PO Aspirin (ASPIRIN) 81 MG DAILY PO Clopidogrel Bisulfate (Plavix) 75 MG DAILY PO (D C) Famotidine (PEPCID) 20 MG DAILY PO Losartan Potassium (COZAAR) 50 MG DAILY PO Prednisone (predniSONE) 2 MG C BK PO Atorvastatin Calcium (LIPITOR) 10 MG BEDTIME PO Nebivolol (BYSTOLIC) 20 MG BEDTIME PO Prednisone (predniSONE) 1 MG BEDTIME PO Acetaminophen (TYLENOL EXTRA STRENGTH) 500 MG Q4 H PRN PRN PO Atropine Sulfate (ATROPINE SULFATE 0.1MG/ML SYR) 0.5 MG ASDIR PRN IV Sodium Chloride (SODIUM CHLORIDE 0.9%) 500 ML DIR PRN IV Physical Exam General appearance: sleeping comfortably Head/Eyes: atraumatic, PERRL ENT: moist mucosal membranes Neck: full range of motion, no JVD Cardiovascular: CV assessment: regular rate and rhythm, no murm ur Respiratory: decreased breath sounds, no distres s Abdomen: soft, non-tender, normal bowel sounds, no distention, no guarding Genitourinary: no flank pain, no urinary cathete r Upper extremity: UE assessment: normal temperature, no edema Lower extremity: LE assessment: normal temperature, no edema Neuro/INSURANCE WRITER: alert, oriented X 3, normal speech Psychiatry: normal affect Diagnosis, Assessment Plan Consultants: cardiology, cardiovascular surgery Free Text DxA P Notes Free Text DxA P Notes: Mr. Daly is a pleasant 66 y/o male w/ PMHx: CAD s/p PCI, HTN, HLD, T2DM, GERD , temporal arteritis (on prednisone) pre sented to [facility] yesterday for elective PCI. Dr. Sainz is consulted for CAD. Patient e xperiences intermittent shortness of breath with exertion for several ye ars and worsen in past few months. He also had chest discomfort w/ exertion few weeks ago; outpatient nuclear stress test was norm al. However, he still experienced w/ PETERSEN, therefore , he scheduled [facility] [place] [facility] w/ stenting on LAD in July 07, 2022 and plan to have a stage PCI yesterday, however, it was not successful; therefore, CTS was consulted for CABG. Patient d enied orthopnea, no PND. No cough, no fever. Reports heartburn and relieved w/ Maalox at home. Workup: CBC and BMP - unremarkable. Vein mapping was done today. Carotid ultrasound was negative for significant stenosis . At present, on RA, NAD. - CAD. s/p LHC: multivessels disease - consult CTS - w orkup on process. Not on Plavix d/t plan for surgery. Continue BB, statins, and ASA. Add Ranexa 500mg po bid. on telemtry - HTN. BP controlled. On Bystolic, Norvasc and Losartan. Add Hydralazine PRN. - HLD. On statins. - Chronic temporal arteritis. On prednisone. - GERD. Per IM. On Pepcid. Add Maalox PRN. - ETOH. Per IM. Advised cessation. Discussed plan of care w/pt. Electronically Signed by Denton Chaparro MD on at 0732 RPT #:[id number] END OF REPORT 2022-07-28 16:23:00-00:00 [facility] ([facility]) Cardiology Consultation REPORT#:[id number] REPORT STATUS: Signed DATE:07/28/22 TIME: 3 PATIENT: MARY DALY UNIT #: [id number] ROOM/BED: [facility]-1 : 53 AGE: 66 SEX: M ATTEND: Marcella Loaiza od, MD ADM AUTHOR: Harper Rae NP * ALL edits or amendments must be made on the [email or web address] document * History of Present Illness HPI Requesting Clinician: Dr. Temple Reason for consult: CAD, CABG evaluation Chief complaint: cp sob PCP: PCP: Albino Torre MD HPI: Mr. Daly is a pleasant 66 y/o male w/ PMHx: CAD s/p PCI, HTN, HLD, T2DM, GERD , temporal arteritis (on prednisone) pre sented to [facility] yesterday for elective PCI. Dr. Sainz is consulted for CAD. Patient e xperiences intermittent shortness of breath with exertion for several ye ars and worsen in past few months. He also had chest discomfort w/ exertion few weeks ago; outpatient nuclear stress test was norm al. However, he still experienced w/ PETERSEN, therefore , he scheduled [facility] had PCI w/ stenting on LAD in July 07, 2022 and plan to have a stage PCI yesterday, however, it was not successful; therefore, CTS was consulted for CABG. Patient d enied orthopnea, no PND. No cough, no fever. Reports heartburn and relieved w/ Maalox at home. Workup: CBC and BMP - unremarkable. Vein mappin g was done today. Carotid ultrasound was negative for significant stenosis . At present, on RA, NAD. Hx Obtained From Patient, EMRs. History - Adult longitudinal Past medical history: Reports: Coronary artery disease, Hypertension, Dyslipidemia. Additional medical history: Temproal arteritis (2017) Additional surgical history: Colon resection 2008 secondary to diverticulitis C3 surgery Family history: Reports: Heart disease (brother). Alcohol use: Alcohol use (1-7 drinks per week) Drug use: Denies recreational drugs Smoking status for patients 13 years old or olde r: Never Smoker Home medications: Home Medications: ATORVASTATIN (LIPITOR) 10 MG PO DAILY CIPROFLOXACIN (CIPRO) 500 MG PO DAILY PRN DIVERT ICULITIS CLOPIDOGREL (PLAVIX) 75 MG PO DAILY metroNIDAZOLE (FLAGYL) 500 MG PO TID PRN DIVERTI CULITIS NEBIVOLOL (BYSTOLIC) 20 MG PO BID OMEPRAZOLE ER (PriLOSEC) 40 MG PO DAILY PRN ACID REFLUX predniSONE 1 MG PO TID SILDENAFIL (VIAGRA) 100 MG PO DAILY PRN PRN ED SODIUM FLUORIDE (PREVIDENT 5000 1.1% DENTAL) 1 A PPLIC TOPICAL DAILY ASPIRIN 81 MG PO DAILY POTASSIUM GLUCONATE 1 TAB PO DAILY CALCIUM CARBONATE (CALTRATE 600 MG) 600 MG PO DA SHIMON CHOLECALCIFEROL (VITAMIN D3) (VITAMIN D3) 1,000 UNITS PO DAILY ACETAMINOPHEN (TYLENOL) 500 MG PO Q4H PRN PRN PA IN IBUPROFEN (ADVIL) 200 MG PO Q6H PRN PRN PAIN FAMOTIDINE (PEPCID) 20 MG PO DAILY amLODIPine (NORVASC) 10 MG PO DAILY LOSARTAN (COZAAR) 50 MG PO DAILY Allergies: Coded Allergies: hydromorphone (From DILAUDID) (Severe, THROAT SW ELLS 07/27/22) crab (Intermediate, ITCHING, CHILLS 07/27/22) doxepin (Intermediate, AFFECTS MEMORY, INSOMNIA 07/27/22) oyster extract (Intermediate, ITCHING 07/27/22) tamsulosin (Intermediate, ABNORMAL EJACULATION, FLU SYMPTOMS, FEVER 07/27/22) iodine (Mild, FLUSH, FEEL HOT 07/27/22) dexlansoprazole (UNKOWN 07/27/22) eszopiclone (From LUNESTA) (UNKNOWN 07/27/22) levofloxacin (UNKNOWN 07/27/22) meperidine (UNKNOWN 07/27/22) doxycycline (Mild, CRAMPS 07/27/22) diclofenac (DIARRHEA 07/27/22) Uncoded Allergies: CRAWFISH (Severe, THROAT SWELLS 07/23/22) Ambulatory status: Independent Review of Systems Constitutional: Denies: chills, fatigue, fever, generalized weak ness. Skin: Denies: diaphoresis, swelling. Allergy/Immun: Denies: hives, itching, rhinorrhea. Eyes: Denies: redness, visual loss/blurred, itching, d iplopia. ENT: Denies: hearing loss, nasal congestion, nose ble eding. Respiratory: Reports: PETERSEN (dyspnea on exertion). Jeremy es: parox nocturnal dyspnea, pleurisy, pneumonia, productive cough (sputum). Cardiovascular: Reports: chest pain, dyspnea on exertion. Denies : edema, orthopnea, palpitations, parox noctural dyspnea. GI: Reports: GERD. Denies: dysphagia, nausea, vomiti ng. : Denies: frequency, hematuria. Musculoskeletal: Denies: joint swelling. Heme: Denies: bleeding, bruising. Endocrine: Denies: cold intolerance, heat intolerance. Neuro: Denies: focal weakness, syncope, weakness. Psych: Denies: change in mental status. Objective General VS/I O: Vital Signs: Date Time Temp Pulse Resp B/P B/P Pulse O2 O2 F low FiO2 Mean Ox Delivery Rate 07/28 1210 97.5 67 18 151/77 0.0 96 Room air 06/07 0656 97.7 67 20 159/89 0.0 94 Room air 06/07 0600 68 16 93 06/ 0500 74 29 94 06/07 0400 78 27 93 06/07 0348 98.1 71 20 145/74 97.4 96 Room air 06/07 0300 70 13 94 06/07 0200 69 19 96 06/ 0100 72 14 93 06/ 0000 72 16 125/58 83 93 07/27 2300 72 26 96 06/ 2237 97.5 64 18 155/79 0.0 98 Room air 24 hour I O ending at 0700: 07/27 1900 07/28 0700 Intake Total 240 Output Total Balance 240 Intake, Oral 240 Number 1 Bowel Movements Patient 90.455 kg 87.5 kg Weight Weight scale Standing scale Measurement Method PATIENT WEIGHT: Weight (lb): 192 Weight (oz): 14.47 Weight (kg): 87.500 Medications: Active Meds + DC'd Last 24 Hrs Al Hydrox/Mg Hydrox/Simethicone (MAALOX MAXIMUM STRENGTH SUSP) 8 ML Q4H PRN PRN PO (PEND) Amlodipine Besylate (NORVASC) 10 MG DAILY PO (DC ) Amlodipine Besylate (NORVASC) 10 MG DAILY PO Aspirin (ASPIRIN) 81 MG DAILY PO Atorvastatin Calcium (LIPITOR) 10 MG DAILY PO (D C) Clopidogrel Bisulfate (Plavix) 75 MG DAILY PO (D C) Famotidine (PEPCID) 20 MG DAILY PO Losartan Potassium (COZAAR) 50 MG DAILY PO Prednisone (predniSONE) 2 MG C BK PO Amlodipine Besylate (NORVASC) 10 MG BEDTIME PO (DC) Atorvastatin Calcium (LIPITOR) 10 MG BEDTIME PO Nebivolol (BYSTOLIC) 20 MG BEDTIME PO Prednisone (predniSONE) 1 MG BEDTIME PO Nebivolol (BYSTOLIC) 20 MG BID PO (CAN) Prednisone (predniSONE) 1 MG TID PO (CAN) Bismuth Subsalicylate (PEPTO-BISMOL 262MG/15ML) 30 ML ONCE ONE PO (DC) Pantoprazole (PROTONIX) 40 MG ONCE ONE PO (DC) Diphenhydramine HCl (BENADRYL) 0 .STK-MED ONE .R OUTE (DC) Methylprednisolone Sodium Succinate (Solu-Medrol 125 MG Vial) 0 .STK-MED ONE .ROUTE (DC) Midazolam HCl (VERSED) 0 .STK-MED ONE .ROUTE (DC ) Fentanyl Citrate (SUBLIMAZE) 0 .STK-MED ONE .ROU TE (DC) Heparin Sodium (HEPARIN SODIUM) 0 .STK-MED ONE . ROUTE (DC) Heparin Sodium/Sodium Chloride (HEPARIN 2,000 UN ITS/NS 1,000mL) 1,000 ML .STK-MED ONE IV (DC) Heparin Sodium/Sodium Chloride (HEPARIN 1,000 UN ITS/NS 500ML) 500 ML .STK- MED ONE IV (DC) Lidocaine HCl (LIDOCAINE HCL/PF) 0 .STK-MED ONE .ROUTE (DC) Nitroglycerin/Dextrose (NITROGLYCERIN 50,000MCG/ D5W 250ML) 250 ML .STK-MED ONE IV (DC) Verapamil HCl (ISOPTIN) 0 .STK-MED ONE IV (DC) Acetaminophen (TYLENOL EXTRA STRENGTH) 500 MG Q4 H PRN PRN PO Atropine Sulfate (ATROPINE SULFATE 0.1MG/ML SYR) 0.5 MG ASDIR PRN IV Sodium Chloride (SODIUM CHLORIDE 0.9%) 1,000 ML .[id number] ONE IV (DC) Sodium Chloride (SODIUM CHLORIDE 0.9%) 500 ML DIR PRN IV Physical Exam General appearance: alert, awake, oriented, no a cute distress, pleasant, conversational, mental status normal, no respira tory distress Head/Eyes: atraumatic, PERRL ENT: moist mucosal membranes Neck: full range of motion, no JVD Cardiovascular: CV assessment: regular rate and rhythm, no murm ur Respiratory: decreased breath sounds, no distres s Abdomen: soft, non-tender, normal bowel sounds, no distention, no guarding Genitourinary: no flank pain, no urinary cathete r Upper extremity: UE assessment: normal temperature, no edema Lower extremity: LE assessment: normal temperature, no edema Neuro/INSURANCE WRITER: alert, oriented X 3, normal speech Psychiatry: normal affect Results Findings/Data: Laboratory Tests 07/27 07/28 1736 0922 Coagulation Activated Coag Time (74 - 137 SEC) 305 H Plt P2Y12 React Units (182 - 335 PRU) 164 L Radiology Data: Recent Impressions: ULTRASOUND - [place]UP [place] 07/28 1144 Report Impression - Status: SIGNED Entered: 07/28/2022 1155 Impression: 1. Vein mapping of the greater saphenous veins b ilaterally as above. Impression By: Heri Marrero M.D. ULTRASOUND - DUP [place]IAL [place] 07/28 1144 Report Impression - Status: SIGNED Entered: 07/28/2022 1159 IMPRESSION: 1. No ultrasound evidence for hemodynamically si gnificant stenosis to either carotid artery. Consensus panel Doppler US criteria for diagnosi s of ICA stenosis: Stenosis (%) ICA PSV (cm/sec) ICA/CCA ratio <50 <180 <2.0 50-69 180-230 2.0-4.0 >70 but less than >230 >4.0 near occlusion Near occlusion High, low, or Variable undetectable Impression By: Heri Marrero M.D. Results: labs reviewed, vital signs reviewed, vi radha signs stable, rhythm personally rev'd, current med profile rev'd Telemetry Interpretation: Normal sinus rhythm Diagnosis, Assessment Plan Consultants: cardiology, cardiovascular surgery Plan discussed with: patient, nurse Free Text DxA P Notes Free Text DxA P Notes: Mr. Daly is a pleasant 66 y/o male w/ PMHx: CAD s/p PCI, HTN, HLD, T2DM, GERD , temporal arteritis (on prednisone) pre sented to [facility] yesterday for elective PCI. Dr. Sainz is consulted for CAD. Patient e xperiences intermittent shortness of breath with exertion for several ye ars and worsen in past few months. He also had chest discomfort w/ exertion few weeks ago; outpatient nuclear stress test was norm al. However, he still experienced w/ PETERSEN, therefore , he scheduled LHC. [facility] he had PCI w/ stenting on LAD in July 07, 2022 and plan to have a stage PCI yesterday, however, it was not successful; therefore, CTS was consulted for CABG. Patient d enied orthopnea, no PND. No cough, no fever. Reports heartburn and relieved w/ Maalox at home. Workup: CBC and BMP - unremarkable. Vein mapping was done today. Carotid ultrasound was negative for significant stenosis . At present, on RA, NAD. - CAD. s/p LHC: multivessels disease - consult CTS - w orkup on process. Not on Plavix d/t plan for surgery. Continue BB, statins, and ASA. Add Ranexa 500mg po bid. on telemtry - HTN. BP controlled. On Bystolic, Norvasc and Losartan. Add Hydralazine PRN. - HLD. On statins. - Chronic temporal arteritis. On prednisone. - GERD. Per IM. On Pepcid. Add Maalox PRN. - ETOH. Per IM. Advised cessation. Discussed plan of care w/pt. Appreciate the kind consult. MDM per Dr. Sainz. Electronically Signed by Harper Rae NP on at 1656 Electronically Signed by Flako Sainz MD on at 2000 RPT #:[id number] END OF REPORT 2022-07-28 12:13:00-00:00 [facility] ([facility]) Cardiology Consultation REPORT#:[id number] REPORT STATUS: Signed DATE:07/28/22 TIME: 1213 PATIENT: MARY DALY UNIT #: [id number] ROOM[address]BED: [address] : [address] AGE: 67 SEX: M ATTEND: Marcella Loaiza od, MD ADM AUTHOR: Flako Sainz MD * ALL edits or amendments must be made on the [employer]/computer document * History of Present Illness HPI Reason for consult: CAD Chief complaint: SOB HPI: Mr. Daly is a pleasant 66 y/o male w/ PMHx: CAD s/p PCI, HTN, HLD, T2DM, GERD , temporal arteritis (on prednisone) pre sented to [facility] yesterday for elective PCI. Patient experiences intermittent shortness of breath with exertion for several years and worsen in past few months. He also had chest discomfort w/ exertion few weeks ago; outpatient nucle ar stress test was normal. However, he still experienced w/ PETERSEN, th erefore, he scheduled LHC. Per patient he had PCI w / stenting on LAD in July 07, 2022 and plan to have a stage PCI yesterday, however, it was not successful; therefor e, CTS was consulted for CABG. Patient denied orthopnea, no PND. No cough, no f ever. Reports heartburn and relieved w / Maalox at home. History - Adult longitudinal Additional medical history: HTN, HLD, CAD Alcohol use: Denies EtOH use Drug use: Denies recreational drugs Smoking status for patients 13 years old or olde r: Never Smoker Allergies: Coded Allergies: hydromorphone (From DILAUDID) (Severe, THROAT SW ELLS 07/27/22) crab (Intermediate, ITCHING, CHILLS 07/27/22) doxepin (Intermediate, AFFECTS MEMORY, INSOMNIA 07/27/22) oyster extract (Intermediate, ITCHING 07/27/22) tamsulosin (Intermediate, ABNORMAL EJACULATION, FLU SYMPTOMS, FEVER 07/27/22) dexlansoprazole (UNKOWN 07/27/22) eszopiclone (From LUNESTA) (UNKNOWN 07/27/22) levofloxacin (UNKNOWN 07/27/22) meperidine (UNKNOWN 07/27/22) doxycycline (Mild, CRAMPS 07/27/22) diclofenac (DIARRHEA 07/27/22) Uncoded Allergies: CRAWFISH (Severe, THROAT SWELLS 07/23/22) Review of Systems Additional notes: As per HPI otherwise negative 12 system points Objective General VS/I O: Vital Signs: Date Time Temp Pulse Resp B/P B/P Pulse O2 O2 F low FiO2 Mean Ox Delivery Rate / 1210 97.5 67 18 151/77 0.0 96 Room air 06/07 0656 97.7 67 20 159/89 0.0 94 Room air 06/07 0600 68 16 93 06/07 0500 74 29 94 06/07 0400 78 27 93 06/07 0348 98.1 71 20 145/74 97.4 96 Room air 06/07 0300 70 13 94 06/07 0200 69 19 96 06/07 0100 72 14 93 06/07 0000 72 16 125/58 83 93 07/27 2300 72 26 96 07/27 2237 97.5 64 18 155/79 0.0 98 Room air 07/27 1357 98.0 50 16 164/77 97 Room air 07/27 1353 98.0 50 16 164/77 97 24 hour I O ending at 0700: 07/28 0700 06 1900 Intake Total 240 Output Total Balance 240 Intake, Oral 240 Number 1 Bowel Movements Patient 87.5 kg 90.455 kg Weight Weight Standing scale Infant scale Measurement Method PATIENT WEIGHT: Weight (lb): 192 Weight (oz): 14.47 Weight (kg): 87.500 Medications: Active Meds + DC'd Last 24 Hrs Amlodipine Besylate (NORVASC) 10 MG DAILY PO (DC ) Amlodipine Besylate (NORVASC) 10 MG DAILY PO Aspirin (ASPIRIN) 81 MG DAILY PO Atorvastatin Calcium (LIPITOR) 10 MG DAILY PO (D C) Clopidogrel Bisulfate (Plavix) 75 MG DAILY PO (D C) Famotidine (PEPCID) 20 MG DAILY PO Losartan Potassium (COZAAR) 50 MG DAILY PO Prednisone (predniSONE) 2 MG C BK PO Amlodipine Besylate (NORVASC) 10 MG BEDTIME PO ( DC) Atorvastatin Calcium (LIPITOR) 10 MG BEDTIME PO Nebivolol (BYSTOLIC) 20 MG BEDTIME PO Prednisone (predniSONE) 1 MG BEDTIME PO Nebivolol (BYSTOLIC) 20 MG BID PO (CAN) Prednisone (predniSONE) 1 MG TID PO (CAN) Bismuth Subsalicylate (PEPTO-BISMOL 262MG/15ML) 30 ML ONCE ONE PO (DC) Pantoprazole (PROTONIX) 40 MG ONCE ONE PO (DC) Diphenhydramine HCl (BENADRYL) 0 .STK-MED ONE .R OUTE (DC) Methylprednisolone Sodium Succinate (Solu-Medrol 125 MG Vial) 0 .STK-MED ONE .ROUTE (DC) Midazolam HCl (VERSED) 0 .STK-MED ONE .ROUTE (DC ) Fentanyl Citrate (SUBLIMAZE) 0 .STK-MED ONE .ROU TE (DC) Heparin Sodium (HEPARIN SODIUM) 0 .STK-MED ONE . ROUTE (DC) Heparin Sodium/Sodium Chloride (HEPARIN 2,000 UN ITS/NS 1,000mL) 1,000 ML .STK-MED ONE IV (DC) Heparin Sodium/Sodium Chloride (HEPARIN 1,000 UN ITS/NS 500ML) 500 ML .STK- MED ONE IV (DC) Lidocaine HCl (LIDOCAINE HCL/PF) 0 .STK-MED ONE .ROUTE (DC) Nitroglycerin/Dextrose (NITROGLYCERIN 50,000MCG/ D5W 250ML) 250 ML .STK-MED ONE IV (DC) Verapamil HCl (ISOPTIN) 0 .STK-MED ONE IV (DC) Acetaminophen (TYLENOL EXTRA STRENGTH) 500 MG Q4 H PRN PRN PO Atropine Sulfate (ATROPINE SULFATE 0.1MG/ML SYR) 0.5 MG ASDIR PRN IV Ciprofloxacin HCl (CIPRO) 500 MG DAILY PRN PO (D C) Metronidazole (FLAGYL) 500 MG TID PRN PO (DC) Sodium Chloride (SODIUM CHLORIDE 0.9%) 1,000 ML .[id number] ONE IV (DC) Sodium Chloride (SODIUM CHLORIDE 0.9%) 500 ML DIR PRN IV Famotidine (PEPCID) 0 .STK-MED ONE PO (DC) Diphenhydramine HCl (BENADRYL) 0 .STK-MED ONE IV (DC) Methylprednisolone Sodium Succinate (Solu-Medrol 125 MG Vial) 0 .STK-MED ONE IV (DC) Diphenhydramine HCl (BENADRYL) 25 MG PREMED ONE IV (DC) Sodium Chloride (SODIUM CHLORIDE 0.9%) 50 ML Famotidine (PEPCID) 20 MG ONCE ONE IV (CAN) Methylprednisolone Sodium Succinate (Solu-Medrol 125 MG Vial) 125 MG ONCE ONE IV (DC) General appearance: alert, o riented, no acute distress, pleasant, conversational , mental status normal, no respiratory distress Head/Eyes: atraumatic, PERRL ENT: moist mucosal membranes Neck: full range of motion, no JVD Cardiovascular: CV assessment: regular rate and rhythm, no murm ur Respiratory: decreased breath sounds, no distres s Abdomen: soft, non-tender, normal bowel sounds, no distention, no guarding Genitourinary: no flank pain, no urinary cathete r Upper extremity: UE assessment: normal temperature, no edema Lower extremity: LE assessment: normal temperature, no edema Neuro/INSURANCE WRITER: alert, oriented X 3, normal speech Psychiatry: normal affect Results Findings/Data: Laboratory Tests 07/28 07/27 0922 1736 Coagulation Activated Coag Time (74 - 137 SEC) 305 H Plt P2Y12 React Units (182 - 335 PRU) 164 L Radiology Data: Recent Impressions: ULTRASOUND - [place]UP [place] 07/28 1144 Report Impression - Status: SIGNED Entered: 07/28/2022 1155 Impression: 1. Vein mapping of the greater saphenous veins b ilaterally as above. Impression By: Heri Marrero M.D. ULTRASOUND - DUP [place] 07/28 1144 Report Impression - Status: SIGNED Entered: 07/28/2022 1159 IMPRESSION: 1. No ultrasound evidence for hemodynamically si gnificant stenosis to either carotid artery. Consensus panel Doppler US criteria for diagnosi s of ICA stenosis: Stenosis (%) ICA PSV (cm/sec) ICA/CCA ratio <50 <180 <2.0 50-69 180-230 2.0-4.0 >70 but less than >230 >4.0 near occlusion Near occlusion High, low, or Variable undetectable Impression By: Heri Marrero M.D. Diagnosis, Assessment Plan Consultants: cardiology, cardiovascular surgery Free Text DxA P Notes Free Text DxA P Notes: Mr. Daly is a pleasant 66 y/o male w/ PMHx: CAD s/p PCI, HTN, HLD, T2DM, GERD , temporal arteritis (on prednisone) presented t [facility] for elective PCI. Patient experiences intermittent shortne ss of breath with exertion for several years and worsen in past few months. He also had chest discomfort w/ exertion few weeks ago; outpatient nuclear stress test wa s normal. However, he still experienced w/ PETERSEN, therefore, he scheduled [facility]. Per patient he had PCI w/ stenting on LAD in July 07, 2022 and plan to martini ve a stage PCI yesterday, however, it was not successful; therefor e, CTS was consulted for CABG. Patient denied orthopnea, no PND. No cough, no f ever. Reports heartburn and relieved w / Maalox at home. Workup: CBC and BMP - unremarkable. Vein mapping was done today. Carotid ultrasound was negative for significant stenosis . At present, on RA, NAD. - CAD. s/p LHC: multivessels disease Continue BB, statins, ASA, and Ranexa. on telemtry EF 55 to 60% with grade 1 diastolic dysfunction CABG today canceled d/t platelet response to P lavix dropped 157 - sometimes next week. Per CTS. - HTN. BP controlled. On Bystolic, Norvasc and Losartan. Hydralazine PRN. - HLD. On statins. - Chronic temporal arteritis. On prednisone. - GERD. Per IM. On Pepcid. Add Maalox PRN. - ETOH. Per IM. Advised cessation. Stable. No CP. Electronically Signed by Flako Sainz MD on at 2059 RPT #:[id number] END OF REPORT 2022-07-28 11:54:00-00:00 [facility]#:[id number] REPORT STATUS: Signed DATE:07/28/22 TIME: 1154 PATIENT: MARY DALY UNIT #: [id number] ROOM/BED: [place] [address] : 53 AGE: 66 SEX: M ATTEND: Marcella Loaiza od, MD ADM AUTHOR: Rosalind Mendez Physic * ALL edits or amendments must be made on the [employer]/computer document * Rosalind Mendez 07/28/22 1154: History of Present Illness HPI Chief complaint: Chest Pains, CAD. HPI: This is a 66-year gentleman with past medical history of coronary artery disease status post PCI in the past, with most recent in July 07, 2022, history of temporal arteritis on chronic prednisone since 2 017, diverticulitis, gout, hypertension, hyperlipidemia. The patient reports a histor y of exertional shortness of breath with occasional chest pain over the past several weeks. He underwent cardiac work-up with his cardiologi st and left heart cath was performed yesterday. This revealed multivessel CAD. CV surgery consulted for evaluation for coronary bypass graft. The patient reports a histor y of diabetes, diet controlled for the past several years. Patient denies any history of smoking. Patient admits to drinking 1 alcoholic beverage per day Patient has a strong family history of coronary artery disease with coronary bypass graft surgery in his brother Patient continues to take prednisone 3 mg daily for history of temporal arteritis in 2017 History Past Medical History: Reports: Coronary artery disease, Hypertension, Dyslipidemia. Additional Medical History: HTN, HLD, CAD, Temproal arteritis (2017) Additional Surgical History: Colon resection 2008 secondary to diverticulitis C3 surgery Family History Reports: Heart disease. Alcohol Use Denies EtOH use Drug Use Denies recreational drugs Smoking status for patients 13 years old or olde r: Never Smoker Review of Systems Free Text ROS Notes Free Text ROS Notes: Constitutional: Negative for fever, chills, weig ht loss Skin: Negative for rash, negative for swelling n egative for any laceration HEENT: Denies hearing loss d enies any ear ringing denies any earache denies any sore throat denies any throat pain Respiratory: Denies dyspnea on exertion denies h emoptysis denies any cough denies any shortness of breath Cardiac: Denies chest pain, denies palpitations denies orthopnea GI: Denies constipation denies diarrhea : Denies hematuria denies dysuria denies flank pain Musculoskeletal: Denies any joint pain denies an y joint swelling denies any myalgia Hematologic: Denies any easy bruising, denies an y bleeding Endocrine: denies any night sweats, denies polyu sunil polydipsia Neurologic: Denies any lightheaded denies any he adache denies any confusion denies any dizziness Objective Physical Exam VS/I O: Last Documented: Result Date Time Pulse Ox 94 07/29 655 B/P 159/89 07/29 655 B/P Mean 0.0 07/29 655 O2 Delivery Room air 07/29 655 Temp 97.7 07/29 655 Pulse 67 07/29 655 Resp 20 07/29 655 24 hour I O ending at 0700: 07/28 0700 07/27 1900 Intake Total 240 Output Total Balance 240 Intake, Oral 240 Number 1 Bowel Movements Patient 87.5 kg 90.455 kg Weight Weight Standing scale scale Measurement Method PATIENT WEIGHT: Weight (lb): 192 Weight (oz): 14.47 Weight (kg): 87.500 General appearance: alert, awake, oriented Free Text Obj Notes Free Text Obj Notes: General: well nourished, well groomed, no acute distress. HEENT: conjunctiva clear, ex traocular movement intact, PERRLA, sclera anicteric. normal dentition, gums, normal, oral mucosa with out pallor or cyanosis. Neck: no, JVD, trachea midline, no, lymphadenopa thy, neck supple, normal ROM. Respiratory: Clear to auscultation, no distress. Cardiovascular: regular rate and rhythm, S1, S2, normal, without murmurs, rubs or gallops, pulses, palpable, symetric. Abdomen: Soft, non tender. No rebound. No guardi ng Extremities: dry, moves all. Musculoskeletal: Full range of motion, no CVA te nderness, no muscle spasm Skin: warm, dry, no, lesions, rash. Neurologic: Alert and oriented x3. Psychiatric: affect and demeanor normal Diagnosis, Assessment Plan Free Text A P: This is a 66-year gentleman with past medical history of coronary artery disease status post PCI in the past, with most recent in July 07, 2022, history of temporal arteritis on chronic prednisone since 2 017, diverticulitis, gout, hypertension, hyperlipidemia. The patient reports a histor y of exertional shortness of breath with occasional chest pain over the past several weeks. He underwent cardiac work-up with his cardiologi and left heart cath was performed yesterday. This revealed multivessel CAD. CV surgery consulted for evaluation for coronary bypass graft. The patient reports a histor y of diabetes, diet controlled for the past several years. Patient denies any history of smoking. Patient admits to drinking 1 alcoholic beverage per day Patient has a strong family history of coronary artery disease with coronary bypass graft surgery in his brother Patient continues to take prednisone 3 mg daily for history of temporal arteritis in 2017 Assessment/plan 1. Coronary artery disease Previous PCI with most recent June 2022, hold Pl avix in preparation for surgery. 2. Hypertension 3. Hyperlipidemia 4. Temporal arteritis in 2017 Continues on prednisone 3 mg We will begin work-up for coronary bypass graft surgery. Patient was seen in exam by Dr. Mccurdy. Further recommendations to follow as work-up und erway Thank you for this kind consultation Consultants: cardiology, cardiovascular surgery Ludin Mccurdy 08/11/22 1040: History Allergies: Coded Allergies: hydromorphone (From DILAUDID) (Severe, THROAT SW ELLS 07/27/22) crab (Intermediate, ITCHING, CHILLS 07/27/22) doxepin (Intermediate, AFFECTS MEMORY, INSOMNIA 07/27/22) oyster extract (Intermediate, ITCHING 07/27/22) tamsulosin (Intermediate, ABNORMAL EJACULATION, FLU SYMPTOMS, FEVER 07/27/22) dexlansoprazole (UNKOWN 07/27/22) eszopiclone (From LUNESTA) (UNKNOWN 07/27/22) levofloxacin (UNKNOWN 07/27/22) meperidine (UNKNOWN 07/27/22) doxycycline (Mild, CRAMPS 07/27/22) diclofenac (DIARRHEA 07/27/22) Uncoded Allergies: CRAWFISH (Severe, THROAT SWELLS 07/23/22) Attestations Physician Attestation Agree w/findings plan: I have seen and examined Mr. Coughlin. I agree wit h the findings and plan as documented by LIN[facility] High. Briefly, 66-year-old male with severe coronary a rtery disease. Patient will benefit from surgical revascularization. I had a long discussion with the patient, explained to angiog andrzej finding and need for surgical revascularization. I have discussed with him t he procedure, risk involved, benefit, alternatives, STS risk of, and complications. Patient has agre ed for surgery, I am making arrangement for him to have surgical revasculari zation in the near future. Thank you for the kind consult. at 0014 at 3997 RPT #:[id number] END OF REPORT 2022-07-28 09:29:00-00:00 [facility] ([facility]) Hospitalist History Physical REPORT#:[id number] REPORT STATUS: Signed DATE:07/28/22 TIME: 928 PATIENT: MARY DALY UNIT #: [id number] ROOM/BED: [place] [address] : 53 AGE: 66 SEX: M ATTEND: Marcella Loaiza od, MD ADM AUTHOR: Luther Martin [employer] * ALL edits or amendments must be made on the [employer]/computer document * Luther Martin 07/28/22 0929: History of Present Illness HPI Chief complaint: CAD PCP: PCP: Albino Torre MD HPI: This is a 66 year old male with past medical hx of HTN, HLD, CAD had a cath yesterday and found to have Multivessel CAD. He was admitted to the hospital for CV surgery eval for CABG. He denies any CP, feve r, chills, N/v/D. History Additional medical history: HTN, HLD, CAD Alcohol use: Denies EtOH use Drug use: Denies recreational drugs Smoking status for patients 13 years old or olde r: Never Smoker Medication/Allergy-Vaccine Hx Medications: Home Medications: Medication Dose/Rte/Freq Days Qty Entered Last Max Daily Dose Reviewed ATORVASTATIN (LIPITOR) 10 MG PO DAILY 07/23/22 07/27/22 Strength: 10 MG TAB 1630 1406 CIPROFLOXACIN (CIPRO) 500 MG PO 07/23/2207/27 Strength: 500 MG TAB DAILY PRN 1631 1406 DIVERTICULITIS CLOPIDOGREL (PLAVIX) 75 MG PO DAILY 07/23/22 Strength: 75 MG TAB 1631 1406 metroNIDAZOLE (FLAGYL) 500 MG PO 07/23/2207/27 Strength: 500 MG TAB TID PRN 1631 1406 DIVERTICULITIS NEBIVOLOL (BYSTOLIC) 20 MG PO BID 07/23/2208/13 Strength: 20 MG TAB 1631 1406 OMEPRAZOLE ER (PriLOSEC) 40 MG PO 07/23/2208/13 Strength: 40 MG CAP.DR DAILY PRN ACID 1632 1406 REFLUX predniSONE 1 MG PO TID 07/23/22 07/27/22 Strength: 1 MG TAB 1633 1406 SILDENAFIL (VIAGRA) 100 MG PO 07/23/22 07/27/22 Strength: 100 MG TAB DAILY PRN PRN ED 1633 1406 SODIUM FLUORIDE 1 APPLIC TOPICAL 07/23/2207/27 (PREVIDENT 5000 1.1% DAILY 1633 1406 DENTAL) Strength: 1.1 % GEL ASPIRIN 81 MG PO DAILY 07/23/22 07/27/22 Strength: 81 MG TAB.CHEW 1633 1406 POTASSIUM GLUCONATE 1 TAB PO DAILY 07/23/2208/13 Strength: 550 MG (90 MG) 1634 1406 TAB CALCIUM CARBONATE 600 MG PO DAILY 07/23/2208/13 (CALTRATE 600 MG) 1634 1406 Strength: 600 MG CALCIUM (1,500 MG) TAB CHOLECALCIFEROL 1,000 UNITS PO DAILY 07/23/22 0 07/27/22 (VITAMIN D3) 1634 1406 (VITAMIN D3) Strength: 25 MCG (1,000 UNIT) TAB ACETAMINOPHEN (TYLENOL) 500 MG PO 07/23/2208/13 Strength: 500 MG TAB Q4H PRN PRN PAIN 1634 1406 IBUPROFEN (ADVIL) 200 MG PO 07/23/22 07/27/22 Strength: 200 MG TAB Q6H PRN PRN PAIN 1635 1406 FAMOTIDINE (PEPCID) 20 MG PO DAILY 07/23/2208/13 Strength: 20 MG TAB 1635 1406 amLODIPine (NORVASC) 10 MG PO DAILY 07/23/22 Strength: 10 MG TAB 1635 1406 LOSARTAN (COZAAR) 50 MG PO DAILY 07/23/2207/27 Strength: 50 MG TAB 1635 1406 Current Hospital Medications: Anti-Infective Agents Sig/Cory Start time Last Medication Dose Route Stop Time Status Admin Ciprofloxacin HCl 500 MG DAILY PRN 07/27 1600 D C (CIPRO) PO 08/03 1559 Metronidazole 500 MG TID PRN 07/27 1600 DC (FLAGYL) PO 08/01 1559 Antihistamine Drugs Sig/Cory Start time Last Medication Dose Route Stop Time Status Admin Diphenhydramine HCl 0 .STK-MED ONE 07/27 1716 D C 07/27 (BENADRYL) .ROUTE 1728 Diphenhydramine HCl 0 .STK-MED ONE 07/27 1318 D C (BENADRYL) IV Diphenhydramine HCl 25 MG PREMED ONE 07/27 1315 DC 07/27 (BENADRYL) IV 07/27 1329 1323 Sodium Chloride 50 ML (SODIUM CHLORIDE 0.9%) Autonomic Drugs Sig/Cory Start time Last Medication Dose Route Stop Time Status Admin Atropine Sulfate 0.5 MG ASDIR PRN 07/27 1600 AC (ATROPINE SULFATE IV 08/26 1559 0.1MG/ML SYR) Blood Formation,Coagulation Sig/Cory Start time Last Medication Dose Route Stop Time Status Admin Clopidogrel Bisulfate 75 MG DAILY 07/28 0900 D C (Plavix) PO 08/27 0859 Heparin Sodium 0 .STK-MED ONE 07/27 1659 DC (HEPARIN SODIUM) .ROUTE 1728 Heparin Sodium/ 1,000 ML .STK-MED ONE 07/27 165 9 DC 07/27 Sodium Chloride IV 1728 (HEPARIN 2,000 UNITS/ NS 1,000mL) Heparin Sodium/ 500 ML .STK-MED ONE 07/27 1659 DC 07/27 Sodium Chloride IV 1728 (HEPARIN 1,000 UNITS/ NS 500ML) Cardiovascular Drugs Sig/Cory Start time Last Medication Dose Route Stop Time Status Admin Amlodipine Besylate 10 MG DAILY 07/28 0900 DC (NORVASC) PO 08/27 0859 Amlodipine Besylate 10 MG DAILY 07/28 0900 AC 0 07/28 (NORVASC) PO 08/27 0859 0928 Atorvastatin Calcium 10 MG DAILY 07/28 0900 DC (LIPITOR) PO 08/27 0859 Losartan Potassium 50 MG DAILY 07/28 0900 AC (COZAAR) PO 08/27 0859 0931 Amlodipine Besylate 10 MG BEDTIME 07/27 2315 DC (NORVASC) PO 08/26 230 Atorvastatin Calcium 10 MG BEDTIME 07/27 2315 A C 07/27 (LIPITOR) PO 08/26 230 2315 Nebivolol 20 MG BEDTIME 07/27 2315 AC 07/27 (BYSTOLIC) PO 08/27 2058 2315 Nebivolol 20 MG BID 07/27 2100 CAN (BYSTOLIC) PO 08/26 2058 Lidocaine HCl 0 .STK-MED ONE 07/27 1659 DC 06/ 6 (LIDOCAINE HCL/PF) .ROUTE 1728 Nitroglycerin/ 250 ML .STK-MED ONE 07/27 1659 D C 07/27 Dextrose IV 1728 (NITROGLYCERIN 50,000MCG/D5W 250ML) Verapamil HCl 0 .STK-MED ONE 07/27 1659 DC 06/ 6 (ISOPTIN) IV 1728 Central Nervous System Agents Sig/Cory Start time Last Medication Dose Route Stop Time Status Admin Aspirin 81 MG DAILY 07/28 0900 AC 07/28 (ASPIRIN) PO 08/27 0859 0931 Midazolam HCl 0 .STK-MED ONE 07/27 171 DC (VERSED) .ROUTE Fentanyl Citrate 0 .STK-MED ONE 07/27 1715 DC (SUBLIMAZE) .ROUTE Acetaminophen 500 MG Q4H PRN PRN 07/27 1600 AC 07/28 (TYLENOL EXTRA PO 08/26 155 0930 STRENGTH) Electrolytic, Caloric, And Pearl Sig/Cory Start time Last Medication Dose Route Stop Time Status Admin Sodium Chloride 1,000 ML .[id number] ONE 07/27 160 0 DC (SODIUM CHLORIDE IV 07/28 0519 0.9%) Sodium Chloride 500 ML ASDIR PRN 07/27 1600 AC (SODIUM CHLORIDE IV 08/26 1559 0.9%) Gastrointestinal Drugs Sig/Cory Start time Last Medication Dose Route Stop Time Status Admin Famotidine 20 MG DAILY 07/28 0900 AC 07/28 (PEPCID) PO 08/27 0859 0932 Bismuth Subsalicylate 30 ML ONCE ONE 07/27 194 5 DC 07/27 (PEPTO-BISMOL 262MG/ PO 07/27 1946 1953 15ML) Pantoprazole 40 MG ONCE ONE 07/27 1930 DC (PROTONIX) PO 07/27 1931 Famotidine 0 .STK-MED ONE 07/27 1321 DC (PEPCID) PO Famotidine 20 MG ONCE ONE 07/27 1315 CAN (PEPCID) IV 07/27 1316 Hormones And Synthetic Substit Sig/Cory Start time Last Medication Dose Route Stop Time Status Admin Prednisone 2 MG C BK 07/28 0800 AC 07/28 (predniSONE) PO 08/27 0759 0935 Prednisone 1 MG BEDTIME 07/27 2315 AC 07/27 (predniSONE) PO 08/26 2314 2325 Prednisone 1 MG TID 07/27 2100 CAN (predniSONE) PO 08/26 2058 Methylprednisolone 0 .STK-MED ONE 07/27 1716 DC 07/27 Sodium Succinate .ROUTE 1728 (Solu-Medrol 125 MG Vial) Methylprednisolone 0 .STK-MED ONE 07/27 1318 DC Sodium Succinate IV (Solu-Medrol 125 MG Vial) Methylprednisolone 125 MG ONCE ONE 07/27 1315 D C 07/27 Sodium Succinate IV 07/27 1316 1323 (Solu-Medrol 125 MG Vial) Review of Systems Constitutional: fatigue, generalized weakness. Allergy/Immun: Denies: anaphylaxis, hives, itching, rhinorrhea. ENT: Denies: ear ringing, nasal c ongestion, sinus problem, sore throat, throat pain, tongue pain. Respiratory: Denies: PETERSEN (dyspnea on exertion), parox nocturnal dyspnea, productive cough ( sputum). Cardiovascular: Denies: PETERSEN (dyspnea on exertion), edema, palpit ations. GI: Denies: anorexia, dysphagia, hematochezia, melen a, rectal pain. : Denies: flank pain, frequenc y, hematuria, penile discharge, testicular swelling. Heme: Denies: bleeding. Neuro: Denies: change in LOC, dizziness, gait problem, seizure. Objective General VS/I O: Vital Signs: Date Time Temp Pulse Resp B/P B/P Pulse O2 O2 F low FiO2 Mean Ox Delivery Rate 07/28 0656 36.5 67 20 159/89 0.0 94 Room air 06/ 0600 68 16 93 06/07 0500 74 29 94 / 0400 78 27 93 / 0348 36.7 71 20 145/74 97.4 96 Room air / 0300 70 13 94 /07 0200 69 19 96 06/07 0100 72 14 93 06/07 0000 72 16 125/58 83 93 06/06 2300 72 26 96 06/06 2237 36.4 64 18 155/79 0.0 98 Room air 06/ 1357 36.7 50 16 164/77 97 Room air / 1353 36.7 50 16 164/77 97 24 hour I O ending at 0700: 07 0700 07/27 1900 Intake Total 240 Output Total Balance 240 Intake, Oral 240 Number 1 Bowel Movements Patient 87.5 kg 90.455 kg Weight Weight Standing scale Infant scale Measurement Method PATIENT WEIGHT: Weight (lb): 192 Weight (oz): 14.47 Weight (kg): 87.500 Medications: Active Meds + DC'd Last 24 Hrs Amlodipine Besylate (NORVASC) 10 MG DAILY PO (DC ) Amlodipine Besylate (NORVASC) 10 MG DAILY PO Aspirin (ASPIRIN) 81 MG DAILY PO Atorvastatin Calcium (LIPITOR) 10 MG DAILY PO (D C) Clopidogrel Bisulfate (Plavix) 75 MG DAILY PO (D Cr) Famotidine (PEPCID) 20 MG DAILY PO Losartan Potassium (COZAAR) 50 MG DAILY PO Prednisone (predniSONE) 2 MG C BK PO Amlodipine Besylate (NORVASC) 10 MG BEDTIME PO ( DC) Atorvastatin Calcium (LIPITOR) 10 MG BEDTIME PO Nebivolol (BYSTOLIC) 20 MG BEDTIME PO Prednisone (predniSONE) 1 MG BEDTIME PO Nebivolol (BYSTOLIC) 20 MG BID PO (CAN) Prednisone (predniSONE) 1 MG TID PO (CAN) Bismuth Subsalicylate (PEPTO-BISMOL 262MG/15ML) 30 ML ONCE ONE PO (DC) Pantoprazole (PROTONIX) 40 MG ONCE ONE PO (DC) Diphenhydramine HCl (BENADRYL) 0 .STK-MED ONE .R OUTE (DC) Methylprednisolone Sodium Succinate (Solu-Medrol 125 MG Vial) 0 .STK-MED ONE .ROUTE (DC) Midazolam HCl (VERSED) 0 .STK-MED ONE .ROUTE (DC ) Fentanyl Citrate (SUBLIMAZE) 0 .STK-MED ONE .ROU TE (DC) Heparin Sodium (HEPARIN SODIUM) 0 .STK-MED ONE . ROUTE (DC) Heparin Sodium/Sodium Chloride (HEPARIN 2,000 UN ITS/NS 1,000mL) 1,000 ML .STK-MED ONE IV (DC) Heparin Sodium/Sodium Chloride (HEPARIN 1,000 UN ITS/NS 500ML) 500 ML .STK- MED ONE IV (DC) Lidocaine HCl (LIDOCAINE HCL/PF) 0 .STK-MED ONE .ROUTE (DC) Nitroglycerin/Dextrose (NITROGLYCERIN 50,000MCG/ D5W 250ML) 250 ML .STK-MED ONE IV (DC) Verapamil HCl (ISOPTIN) 0 .STK-MED ONE IV (DC) Acetaminophen (TYLENOL EXTRA STRENGTH) 500 MG Q4 H PRN PRN PO Atropine Sulfate (ATROPINE SULFATE 0.1MG/ML SYR) 0.5 MG ASDIR PRN IV Ciprofloxacin HCl (CIPRO) 500 MG DAILY PRN PO (D C) Metronidazole (FLAGYL) 500 MG TID PRN PO (DC) Sodium Chloride (SODIUM CHLORIDE 0.9%) 1,000 ML .[id number] ONE IV (DC) Sodium Chloride (SODIUM CHLORIDE 0.9%) 500 ML DIR PRN IV Famotidine (PEPCID) 0 .STK-MED ONE PO (DC) Diphenhydramine HCl (BENADRYL) 0 .STK-MED ONE IV (DC) Methylprednisolone Sodium Succinate (Solu-Medrol 125 MG Vial) 0 .STK-MED ONE IV (DC) Diphenhydramine HCl (BENADRYL) 25 MG PREMED ONE IV (DC) Sodium Chloride (SODIUM CHLORIDE 0.9%) 50 ML Famotidine (PEPCID) 20 MG ONCE ONE IV (CAN) Methylprednisolone Sodium Succinate (Solu-Medrol 125 MG Vial) 125 MG ONCE ONE IV (DC) Physical Exam General appearance: alert, awake, oriented Head/Eyes: atraumatic, normocephalic, PERRLA Cardiovascular: normal capillary refill, normal heart sounds, regular rate rhythm Respiratory: aerating well, symmetric expansion, no distress Abdomen: non-tender, normal bowel sounds, soft Genitourinary: no bladder distention, no flank p ain, no urinary catheter Extremities: no calf tenderness, no clubbing, no cyanosis Musculoskeletal: no CVA tenderness, no muscle sp asm Neuro/INSURANCE WRITER: alert, oriented X 3, CNII-XII intact Skin: dry, intact Results Findings/Data: Laboratory Tests 07/27 1736 Coagulation Activated Coag Time (74 - 137 SEC) 305 H Results: labs reviewed, vital signs reviewed, vi radha signs stable, current med profile rev'd Treatment Prophylaxis Treatment Prophylaxis Oxygen: room air Diagnosis, Assessment Plan Consultants: cardiology, cardiovascular surgery Plan discussed with: patient, admitting physicia n, consultants, nurse Code Status/Resusc. Discussion Code status: full code Free Text DxA P Notes Free Text DxA P Notes: Assessment and Plan: - Multivessel CAD. - CP due to CAD. - HX of HTN/HLD and CAD. Plan: CVN1. Will DC Plavix. Pre op work up per CV surgery. Pain meds. Antiemetics. Continue BB, Lipitor and ASA. Follow labs and repalce as needed. Monitor. Anthony Loaiza 07/29/222112: History Medication/Allergy-Vaccine Hx Allergies: Coded Allergies: hydromorphone (From DILAUDID) (Severe, THROAT SW ELLS 07/27/22) crab (Intermediate, ITCHING, CHILLS 07/27/22) doxepin (Intermediate, AFFECTS MEMORY, INSOMNIA 07/27/22) oyster extract (Intermediate, ITCHING 07/27/22) tamsulosin (Intermediate, ABNORMAL EJACULATION, FLU SYMPTOMS, FEVER 07/27/22) dexlansoprazole (UNKOWN 07/27/22) eszopiclone (From LUNESTA) (UNKNOWN 07/27/22) levofloxacin (UNKNOWN 07/27/22) meperidine (UNKNOWN 07/27/22) doxycycline (Mild, CRAMPS 07/27/22) diclofenac (DIARRHEA 07/27/22) Uncoded Allergies: CRAWFISH (Severe, THROAT SWELLS 07/23/22) Attestations Physician Attestation Agree w/findings plan: Patient seen and examined, I agree with the findings and plans as discussed with and documented by Luther Montiel NP Electronically Signed by Luther Martin NP on 09/12 at 1233 Electronically Signed by Anthony Loaiza MD on 0 07/29/22 at 2141 RPT #:[id number] END OF REPORT 2022-07-28 07:34:00-00:00 [id number] [place] [address] PATIENT NAME: MARY DALY ADMIT DATE: 07/27/22 ACCOUNT NO: [id number] ROOM NO: [id number] AGE: 66 REPORT TYPE: eELECTROCARDIOGRAM REPORT SEX: M ADMITTING PHYSICIAN: ATTENDING PHYSICIAN:Anthony Loaiza MD Order: [id number] Test Reason : POST PCI Test Date/Time Stamp: TueJul 28 2022 07:34:04 Blood Pressure : / mmHG Vent. Rate : 069 BPM Atrial Rate : 069 BPM P-R Int : 138 ms QRS Dur : 092 ms QT Int : 448 ms P-R-T Axes : 024 012 027 degree s QTc Int : 480 ms Normal sinus rhythm Prolonged QT Incomplete right bundle branch block Abnormal ECG POST OP Confirmed by ALBINO HANCOCK MD ([id number]) on 3 8:42:30 AM Referred By: Sam Price Confirmed by:ALBINO TAN MD at 0842 PATIENT NAME: MARY DALY 2 2022-07-27 23:29:00-00:00 [facility] ([facility]) Clinical Note REPORT#:[id number] REPORT STATUS: Signed DATE:07/27/22 TIME: 2328 PATIENT: MARY DALY UNIT #: [id number] ROOM/BED: [place] [address] : 53 AGE: 66 SEX: M ATTEND: Stephanie Price MD ADM AUTHOR: Tenisha Zacarias MD * ALL edits or amendments must be made on the [employer]/computer document * Clinical Note Note: Patient's insurance is [employer]. Notified Dr. Golden pleitez about the admission. Also informed RN that patient is assigned to Dr. Kyree lyon group. Electronically Signed by Tenisha Zacarias MD on 3 at 2330 RPT #:[id number] END OF REPORT 2022-07-23 16:03:00-00:00 [id number] [place] [address] PATIENT NAME: MARY DALY ADMIT DATE: ACCOUNT NO: [id number] ROOM NO: AGE: 66 REPORT TYPE: eELECTROCARDIOGRAM REPORT SEX: M ADMITTING PHYSICIAN: ATTENDING PHYSICIAN:Sam Price MD Order: [id number] Test Reason : PREOP Test Date/Time Stamp: TueJul 23 2022 16:03:05 Blood Pressure : / mmHG Vent. Rate : 055 BPM Atrial Rate : 055 BPM P-R Int : 130 ms QRS Dur : 098 ms QT Int : 484 ms P-R-T Axes : 020 050 037 degree s QTc Int : 463 ms Sinus bradycardia with premature atrial complexe s with aberrant conduction Abnormal ECG PRE_OP Confirmed by ALBINO HANCOCK MD ([id number]) on 3 4:09:40 PM Referred By: Sam Price Confirmed by:ALBINO TAN MD at 1609 PATIENT NAME: MARY DALY 2
[2022-09-26 20:49] LABS: Absolute Lymphocytes (CBC) 2.7 K/uL (0.7-4.9); Hematocrit 33.2 % (39.6-49.0); Lymphocytes % 33.5 % (15.3-44.8); MCV 85.6 fL (80-100); MPV 8.6 fL (7.6-11.3); Platelets 292 thou/uL (152-406); RBC Red Blood Cell Count 3.88 M/uL (4.33-5.43)
[2022-09-26 21:13] LABS: Magnesium 2.2 mg/dL (1.6-2.4); Potassium 3.4 mEq/L (3.5-5.1); Troponin High Sensitivity 8.2 pg/mL (<58.9)
--- NOTE | 2022-09-26 21:20 | RAD REPORT ---
EXAM DESCRIPTION: Ange Single View09/26/2022 8:54 pm CLINICAL HISTORY: Hypertension COMPARISON: June 2022 FINDINGS: The lungs appear clear of acute infiltrate. The heart is normal size Postsurgical changes involve the chest. PICC line in place IMPRESSION: No acute abnormalities displayed
--- NOTE | 2022-09-26 21:22 | RAD REPORT ---
EXAM DESCRIPTION: CT - Head Brain Wo Cont - 09/26/2022 8:57 pm CLINICAL HISTORY: Headache COMPARISON: none TECHNIQUE: Computed axial tomography of the head was obtained. IV contrast was not requested. All CT scans are performed using dose optimization technique as appropriate and may include automated exposure control or mA/KV adjustment according to patient size. FINDINGS: An intracranial bleed is not seen The ventricles are normal in caliber No significant hypodense areas within the brain visualized No extra-axial fluid collection is noted. Prominent left vertebral artery calcification Fluid within the sinuses/ mastoids is not seen IMPRESSION: No acute intracranial abnormality is seen If patient's symptoms persist MRI of the brain would be recommended
[2022-09-26] MEDS ORDERED: HYDRALAZINE HCL 20 MG/ML VIAL ONE (21:54)
[2022-09-26 22:06] LABS: Protime INR 1.06
--- NOTE | 2022-09-26 23:01 | EDPHYS ---
Physician Documentation [facility] Name: Sam Perdomo Jr Age: 67 yrs Sex: Male : 1955 Arrival Date: 09/26/2022 Time: 20:09 Bed 5 Private MD: Farzad Torre ED Physician Phani France HPI: 09/26 22:19 This 67 yrs old Male presents to ER via Ambulatory with complaints of High Blood sb4 Pressure. 22:19 The patient has elevated blood pressure and discovered this at a drugstore. Onset: The sb4 symptoms/episode began/occurred gradually. Severity of symptoms: At its worst the blood pressure was 200 mm Hg. The patient has been recently seen by a physician:. 22:19 Patient had quadruple bypass done 2 months ago, his incision got infected and had to be sb4 reopened and readmitted, he was discharged and has been on IV antibiotics via PICC for a few weeks now. He states when he was discharged they also changed his blood pressure medications. His blood pressure has been running higher than his usual. He states it is slowly been rising and tonight it got as high as 200/100. He states he feels generally rundown and has a headache and has brain fog because of it. Denies chest pain, shortness of breath, nausea, vomiting, focal neurologic deficit. Historical: - Allergies: 20:26 Demerol; iw 20:26 deoxepin; iw 20:26 diclofenac sodium; iw 20:26 Dilaudid; iw 20:26 Doxycycline; iw 20:26 Iodine; iw 20:26 kapidex; iw 20:26 Levofloxacin; iw 20:26 Lunesta; iw 20:26 meperidine; iw 20:26 SHELLFISH; iw 20:26 tamsulosin; iw - PMHx: 20:26 Myocardial infarction; iw - PSHx: 20:26 urobladder lift; iw 20:26 cabg; iw ROS: 22:19 Constitutional: Negative for fever, chills, and weight loss, Eyes: Negative for injury, sb4 pain, redness, and discharge, ENT: Negative for injury, pain, and discharge, Cardiovascular: Negative for chest pain, palpitations, and edema, Respiratory: Negative for shortness of breath, cough, wheezing, and pleuritic chest pain, Abdomen/GI: Negative for abdominal pain, nausea, vomiting, diarrhea, and constipation, Back: Negative for injury and pain, MS/Extremity: Negative for injury and deformity, Skin: Negative for injury, rash, and discoloration. 22:19 Neuro: Positive for dizziness, headache, Brain fog. 22:19 All other systems are negative. Exam: 22:19 Constitutional: This is a well developed, well nourished patient who is awake, alert, sb4 and in no acute distress. Head/Face: Normocephalic, atraumatic. Eyes: Extra-ocular motions intact. Periorbital areas with no swelling, redness, or edema. Cardiovascular: Regular rate and rhythm with a normal S1 and S2. Respiratory: Lungs have equal breath sounds bilaterally, clear to auscultation and percussion. No rales, rhonchi or wheezes noted. No increased work of breathing, no retractions or nasal flaring. Abdomen/GI: Soft, non-tender, no distension. Skin: Warm, dry with normal turgor. Normal color with no rashes, no lesions, and no evidence of cellulitis. MS/ Extremity: Pulses equal, no cyanosis. Neurovascular intact. Full, normal range of motion. Neuro: Awake and alert, GCS 15, oriented to person, place, time, and situation. Cranial nerves II-XII grossly intact. Motor strength 5/5 in all extremities. Sensory grossly intact. Cerebellar exam normal. Normal gait. Vital Signs: 20:27 BP 207 / 99; Pulse 70; Resp 16; Pulse Ox 98% on R/A; iw 21:41 BP 173 / 99; Pulse 63; Resp 16; Pulse Ox 98% on R/A; jb4 23:11 BP 155 / 81; Pulse 76; Resp 16; Pulse Ox 98% ; jb4 MDM: 20:21 Patient medically screened. sb4 22:19 Differential diagnosis: hypertensive crisis, Malignant HTN, CVA, intracerebral sb4 hemorrhage. Data interpreted: Pulse oximetry: on room air is 98 %. Data reviewed: vital signs, nurses notes, lab test result(s), EKG, radiologic studies, and as a result, I will discharge patient. Consideration of Admission/Observation Escalation of care including admission/observation considered. Care significantly affected by the following chronic conditions: Hypertension, Coronary artery disease. Counseling: I had a detailed discussion with the patient and/or guardian regarding: the historical points, exam findings, and any diagnostic results supporting the discharge/admit diagnosis, the presence of at least one elevated blood pressure reading (>120/80) during this emergency department visit, lab results, radiology results, to return to the emergency department if symptoms worsen or persist or if there are any questions or concerns that arise at home. Awaiting:. ED course: Patient has an appointment with his infectious disease doctor and his primary care doctor this Tuesday. 09/26 20:32 Order name: Basic Metabolic Panel; Complete Time: 21:17 sb4 09/26 20:32 Order name: CBC with Diff; Complete Time: 20:51 sb4 09/26 20:32 Order name: Magnesium; Complete Time: 21:17 sb4 09/26 20:32 Order name: NT PRO-BNP; Complete Time: 21:17 sb4 09/26 20:32 Order name: PT-INR; Complete Time: 22:08 sb4 09/26 20:32 Order name: Troponin HS; Complete Time: 21:17 sb4 09/26 20:32 Order name: XRAY Chest (1 view); Complete Time: 21:25 sb4 09/26 20:32 Order name: Head Brain Wo Cont CT; Complete Time: 21:25 sb4 09/26 20:32 Order name: EKG; Complete Time: 20:33 sb4 09/26 20:32 Order name: Cardiac monitoring; Complete Time: 21:41 sb4 09/26 20:32 Order name: EKG - Nurse/Tech; Complete Time: 21:41 sb4 09/26 20:32 Order name: IV Saline Lock; Complete Time: 21:41 sb4 09/26 20:32 Order name: Labs collected and sent; Complete Time: 21:41 sb4 09/26 20:32 Order name: O2 Per Protocol; Complete Time: 21:41 sb4 09/26 20:32 Order name: O2 Sat Monitoring; Complete Time: 21:41 sb4 EC:18 Rate is 67 beats/min. Rhythm is regular, Normal Sinus Rhythm. WI interval is normal at sb4 120 msec. QRS interval is normal at 92 msec. QT interval is prolonged at 494 msec. Clinical impression: NSR w/ Non-specific ST/T Changes. Interpreted by me. Reviewed by me. Administered Medications: 21:46 Drug: hydrALAZINE IVP 5 mg Route: IVP; Site: left antecubital; jb4 23:11 Drug: cloNIDine PO 0.1 mg Route: PO; jb4 Disposition: 09/27 07:29 Co-signature as Attending Physician, Phani France MD I agree with the assessment sp4 and plan of care. I reviewed the patient's care provided by the Advanced Practice Provider and agree with the diagnosis and treatment plan. Disposition Summary: 09/26/22 23:01 Discharge Ordered Location: Home sb4 Problem: new sb4 Symptoms: have improved sb4 Condition: Stable sb4 Diagnosis - Essential (primary) hypertension sb4 Followup: sb4 - With: - When: 2 - 3 days - Reason: Recheck today's complaints, Continuance of care, Re-evaluation by your physician Discharge Instructions: - Discharge Summary Sheet sb4 Forms: - Medication Reconciliation Form sb4 - Thank You Letter sb4 - Antibiotic Education sb4 - Prescription Opioid Use sb4 - Patient Portal Instructions sb4 Prescriptions: - clonidine HCl 0.1 mg Oral tablet - take 1 tablet by ORAL route every hour as needed for hypertensive emergency; do sb4 not exceed 5 doses per 24 hrs; 10 tablet; Refills: 0, Product Selection Permitted Signatures: Dispatcher [employer] Xochilt Iyer RN RN iw Bryson, James, RN RN Milvia Kim PA-C PA-C sb4 Phani France MD MD sp4
--- NOTE | 2022-09-26 23:01 | ER ---
Nurse's Notes [facility] Name: Sam Perdomo Jr Age: 67 yrs Sex: Male : 1955 Arrival Date: 09/26/2022 Time: 20:09 Bed 5 Private MD: Farzad Torre Diagnosis: Essential (primary) hypertension Presentation: 09/26 20:24 Chief complaint: Patient states: BP has been running high, he had quad bypass in July , iw with [facility] and it got infected, has been on antibiotics through PICC, they changed my BP meds in the hospital. Coronavirus screen: At this time, the client does not indicate any symptoms associated with coronavirus-19. Ebola Screen: Patient negative for fever greater than or equal to 101.5 degrees Fahrenheit, and additional compatible Ebola Virus Disease symptoms Patient denies exposure to infectious person. Patient denies travel to an Ebola-affected area in the 21 days before illness onset. No symptoms or risks identified at this time. Initial Sepsis Screen: Does the patient meet any 2 criteria? No. Patient's initial sepsis screen is negative. Does the patient have a suspected source of infection? No. Patient's initial sepsis screen is negative. Risk Assessment: Do you want to hurt yourself or someone else? Patient reports no desire to harm self or others. 20:24 Method Of Arrival: Ambulatory iw 20:24 Acuity: MELODY 2 iw 20:24 Onset of symptoms was September 26, 2022. iw Historical: - Allergies: 20:26 Demerol; iw 20:26 deoxepin; iw 20:26 diclofenac sodium; iw 20:26 Dilaudid; iw 20:26 Doxycycline; iw 20:26 Iodine; iw 20:26 kapidex; iw 20:26 Levofloxacin; iw 20:26 Lunesta; iw 20:26 meperidine; iw 20:26 SHELLFISH; iw 20:26 tamsulosin; iw - PMHx: 20:26 Myocardial infarction; iw - PSHx: 20:26 urobladder lift; iw 20:26 cabg; iw Screenin:47 [facility] ED Fall Risk Assessment (Adult) History of falling in the last 3 months, jb4 including since admission No falls in past 3 months (0 pts) Confusion or Disorientation No (0 pts) Score/Fall Risk Level 0 - 2 = Low Risk Oriented to surroundings, Maintained a safe environment. Abuse screen: Denies threats or abuse. Nutritional screening: No deficits noted. Tuberculosis screening: No symptoms or risk factors identified. Assessment: 21:30 General: Appears in no apparent distress. comfortable, Behavior is calm, cooperative, jb4 appropriate for age. Pain: Denies pain. Neuro: Level of Consciousness is awake, alert, obeys commands, Oriented to person, place, time, situation. Cardiovascular: Patient's skin is warm and dry. Respiratory: Airway is patent Respiratory effort is even, unlabored, Respiratory pattern is regular, symmetrical. GI: No signs and/or symptoms were reported involving the gastrointestinal system. : No signs and/or symptoms were reported regarding the genitourinary system. EENT: No signs and/or symptoms were reported regarding the EENT system. Derm: Skin is intact, Skin is pink, warm \T\ dry. 23:11 Reassessment: Patient appears in no apparent distress at this time. Patient and/or jb4 family updated on plan of care and expected duration. Pain level reassessed. Patient is alert, oriented x 3, equal unlabored respirations, skin warm/dry/pink. Vital Signs: 20:27 BP 207 / 99; Pulse 70; Resp 16; Pulse Ox 98% on R/A; iw 21:41 BP 173 / 99; Pulse 63; Resp 16; Pulse Ox 98% on R/A; jb4 23:11 BP 155 / 81; Pulse 76; Resp 16; Pulse Ox 98% ; jb4 ED Course: 20:10 Patient arrived in ED. am2 20:10 Farzad Torre MD is Private Physician. am2 20:21 Milvia Moreno PA-C is PHCP. sb4 20:21 Phani France MD is Attending Physician. sb4 20:26 Triage completed. iw 20:26 Arm band placed on. iw 20:56 XRAY Chest (1 view) In Process Unspecified. EDMS 20:58 Head Brain Wo Cont CT In Process Unspecified. EDMS 21:30 Initial lab(s) drawn, by me, sent to lab. Inserted saline lock: 20 gauge in left jb4 antecubital area, using aseptic technique. Blood collected. 21:41 PT-INR Sent. jb4 21:46 Patient has correct armband on for positive identification. Bed in low position. Call jb4 light in reach. Side rails up X 1. Client placed on continuous cardiac and pulse oximetry monitoring. NIBP monitoring applied. certified professional midwife on. 21:52 Naun Fulton, RN is Primary Nurse. jb4 23:01 Farzad Torre MD is Referral Physician. sb4 23:11 No provider procedures requiring assistance completed. IV discontinued, intact, jb4 bleeding controlled, No redness/swelling at site. Pressure dressing applied. Administered Medications: 21:46 Drug: hydrALAZINE IVP 5 mg Route: IVP; Site: left antecubital; jb4 23:11 Drug: cloNIDine PO 0.1 mg Route: PO; jb4 Medication: 23:11 VIS not applicable for this client. jb4 Outcome: 23:01 Discharge ordered by . sb4 23:11 Discharged to home ambulatory. jb4 23:11 Condition: stable 23:11 Discharge instructions given to patient, Instructed on discharge instructions, follow up and referral plans. medication usage, Demonstrated understanding of instructions, follow-up care, medications, Prescriptions given X 1. 23:19 Patient left the ED. jb4 Signatures: Dispatcher [employer] EDMS Xochilt Wilson RN RN iw Naun Fulton, RN RN jb4 Areli Diaz Sophia PA-C PA-C sb4 Corrections: (The following items were deleted from the chart) 20:28 20:24 Acuity: MELODY 3 [facility] 21:41 21:41 BP 173 / 9; Pulse 63bpm; Resp 16bpm; Pulse Ox 98% RA; jb4 jb4
[2022-09-26] MEDS ORDERED: cloNIDine HCL 0.1 MG TAB ONE ×2 (23:16→23:17)
[2022-09-26 23:54] VITALS: O2SAT 98
[2022-09-26 23:56] VITALS: BP 155/81
--- NOTE | 2022-09-27 13:00 | EKG ---
Test Date: 2022-09-26 Test Time: 21:14:02 Security And Privacy Consultant: ÁNGELA MEASUREMENT RESULTS: Intervals: Rate: 67 NE: 120 QRSD: 92 QT: 494 QTc: 521 [place]: P: 16 NE: 120 QRS: 25 T: 85 INTERPRETIVE STATEMENTS: Normal sinus rhythm Nonspecific ST and T wave abnormality Prolonged QT Abnormal ECG Compared to ECG 07/02/2022 13:44:17 ST (T wave) deviation now present Prolonged QT interval now present Sinus bradycardia no longer present Electronically Signed On 09-27-22 12:58:50 CDT by Sam Price
== END 2022-09-26 23:19 | disposition home or self-care (01) ==
LOC: ER 20:09
DX: I10 Essential (primary) hypertension (principal); I25.2 Old myocardial infarction; Z95.1 Presence of aortocoronary bypass graft; Z88.1 Allergy status to other antibiotic agents; Z88.5 Allergy status to narcotic agent; Z88.8 Allergy status to other drugs, medicaments and biological substances; Z91.013 Allergy to seafood; Z91.048 Other nonmedicinal substance allergy status
CPT/HCPCS: 93005; 85025; 80048; 36415; 83735; 85610; 84484; 83880; 70450; 71045; 96374; 99285; J0360

== ENCOUNTER 2022-10-06 11:41 | Emergency (ER) | payer OTHER ==
--- OUTSIDE RECORDS SUMMARY | 2022-10-06 11:55 | XMS REPORT | Continuity of Care Document ---
:1955 Author Organization [facility] t Address [address] [place] [address] Care Team Providers Name Role Phone Albino Torre Attending Clinician Unavailable Mario Petit Attending Clinician Ludin Mccurdy Attending Clinician Unavailable Anthony Loaiza Attending Clinician Unavailable Agustín Attending Clinician Unavailable Casey Barrow Attending Clinician [phone] Ludin Mccurdy Admitting Clinician Unavailable Anthony Loaiza Admitting Clinician Unavailable Albino Torre Admitting Clinician Unavailable Agustín Admitting Clinician Unavailable Payers Payer Name Policy Type Policy Number Effective Date Expiration Date Lala bahena AARP Medicare 53 [id number] [facility] - MEDICARE [id number] COMPLETE (MEDICARE REPLACEMENT HMO) Problems Condition Condition [...] Sprain of Sprain of Problem Active Kennedi anne left Left 3-08 Orthope rotator Rotator 00:00: dic cuff Cuff 00 Sports capsule Capsule Medicin e [id number] Gastroesop Problem Co mmon hageal Spirit reflux - [facility] disease, esophagiti [facility] s presence Medica l not Center specified [id number] Diverticul Problem Co mmon ar disease [facility] [id number] Dyslipidem Problem Co mmon ia [facility] [id number] Incomplete Problem Co mmon emptying Spirit of bladder - [facility] [id number] BPH loc w Problem Com mon urin Spirit obs/LUTS - [facility] [id number] Essential Problem Comm on hypertensi Spirit on [facility] [id number] History of Problem Co mmon coronary Spirit artery - [facility] [id number] History of Problem Co mmon arteritis [facility] [id number] Lower Problem Common urinary Spirit tract - [facility] symptoms ([facility] [id number] Primary Problem Commo n testicular Spirit failure - [facility] [id number] ED Problem Common (erectile Spirit dysfunctio - [facility] n) of 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 23:03:55 l s s Pritesh (disorder) (disorder) Active Problem 08/28/2022 [facility] [place] Hypertensi Hypertens Problem Active 2022-08-28 Memoria ve cj 23:03:55 l disorder, disorder, Herm nika systemic systemic arterial arterial (disorder) (disorder) Active Problem 08/28/2022 [facility] Hyperlipid Hyperlipi Problem Active 2022-08-28 Memoria emia demia 23:03:55 l (disorder) (disorder) He rmann Active Problem 08/28/2022 [facility] 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 23:03:55 l (disorder) (disorder) He rmann Active Problem 08/28/2022 [facility] Shoulder Shoulder Problem Active 2022-08-28 Memoria pain pain 23:03:55 l (finding) (finding) Willy nika Active Problem 08/28/2022 [facility] Allergies, Adverse Reactions, Alerts Allergy Allergy Status Severity Reaction(s) Onset Inactive Treating Comm ents Source Name Type Date Date Clinician iodine DA Active ND FLUSH, FEEL [facility] HOT 606 Clear 00:00: Powell [facility] doxycycl DA Active ND CRAMPS [facility] ine 07-27 Clear 00:00: [facility] diclofen DA Active U DIARRHEA [facility] ac 07-27 Clear 00:00: [facility] doxepin DA Active MO AFFECTS [facility] MEMORY, 6 Clear INSOMNIA 00:00: [facility] meperidi DA Active U UNKNOWN [facility] ne 07-27 Clear 00:00: [facility] hydromor DA Active SV THROAT [facility] phone SWELLS 07-27 Clear 00:00: [facility] tamsulos DA Active MO ABNORMAL [facility] in EJACULATION, 06 Vicenta r FLU 00:00: Powell SYMPTOMS, 00 [facility] FEVER [facility] levoflox DA Active U UNKNOWN [facility] acin 6 Clear 00:00: Powell [facility] eszopicl DA Active U UNKNOWN [facility] one 06 Clear 00:00: [facility] dexlanso DA Active U UNKOWN [facility] prazole 6-06 Clear 00:00: Powell [facility] oyster DA Active MO ITCHING [facility] extract 6-06 Clear 00:00: [facility] crab FA Active MO ITCHING, [facility] CHILLS 06 Clear 00:00: Powell [facility] hydromor DA Active SV THROAT [facility] phone SWELLS 07-23 Clear 00:00: Powell 00 [facility] tamsulos DA Active MO ABNORMAL [facility] in EJACULATION, 07-23 Vicenta r FLU 00:00: Powell SYMPTOMS, 00 [facility] levoflox DA Active U UNKNOWN [facility] acin 07-23 Clear 00:00: Powell 00 [facility] eszopicl DA Active U UNKNOWN [facility] one 07-23 Clear 00:00: [place] [facility] dexlanso DA Active U UNKOWN [facility] prazole 07-23 Clear 00:00: [facility] oyster DA Active MO ITCHING H[facility] extract 07-23 Clear 00:00: [place] [facility] crab FA Active MO ITCHING, [facility] CHILLS 07-23 Clear 00:00: Powell 00 [facility] CRAWFISH DA Active SV THROAT [facility] SWELLS 07-23 Clear 00:00: Powell [facility] iodine DA Active ND FLUSH, FEEL [facility] HOT 07-23 Clear 00:00: Powell [facility] doxycycl DA Active ND CRAMPS [facility] ine 07-23 Clear 00:00: [place] [facility] diclofen DA Active U DIARRHEA [facility] ac 07-23 Clear 00:00: [place] [facility] doxepin DA Active MO AFFECTS [facility] MEMORY, 07-23 Clear INSOMNIA 00:00: [place] [facility] meperidi DA Active U UNKNOWN [facility] ne 07-23 Clear 00:00: [place] [facility] diclofen diclofen Active Memori a ac ac l Pritesh Dilaudid Dilaudid Active Memori a l Pritesh Demerol Demerol Active Memoria l [place] Lunesta Lunesta Active Memoria l [place] iodine iodine Active Memoria l Pritesh Kapidex Kapidex Active Memoria l Pritesh levoFLOX levoFLOX Active Memori a acin acin l [place] Meperidi Meperidi Active Memori a ne ne l HCl-Prom HCl-Prom [place] n ethazine ethazine HCl HCl levoflox levoflox Active Unknown Commo n acin acin [facility] doxycycl doxycycl Active Unknown Commo n ine ine [facility] diclofen diclofen Active Unknown Commo n ac ac [facility] dexlanso dexlanso Active Unknown Commo n prazole prazole [facility] Shellfis Shellfis Active Unknown Commo n h h [facility] meperidi meperidi Active Unknown Commo n ne ne [facility] [id number] Drug Active Unknown Common allergy [facility] Doxepin Doxepin Active Unknown Common [facility] hydromor hydromor Active Unknown Commo n phone phone [facility] eszopicl eszopicl Active Unknown Commo n one one [facility] 463 Drug Active Unknown Common allergy [facility] Social History Social Habit Start Date Stop Date Quantity Comments Source History of Tobacco Use Co mmon [facility] Sex Assigned At Com mon [facility] Smoking Status Start Date Stop Date Source Tobacco smoking status [facility] Medications Ordered Filled Start Stop Current Ordering Indication Dosage Frequency Signature Comments Components Source Medication Medication Date Date Medication? 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, Height, 89.716, kg, 04/21/22 10:43: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, Weight predniSONE 2022-0 Yes 3 mg = 3 Mem oria 1 mg oral 3-30 tab, PO, l tablet 13:39: Daily, # Pritesh 00 90 tab, 3 Refill(s), Pharmacy: [id number], 170.18, cm, 04/21/22 10:43: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, Height, 89.716, kg, 04/21/22 10:43: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, Weight predniSONE 2022-0 Yes 3 mg = 3 Mem oria 1 mg oral 3-01 tab, PO, l tablet 16:59: Daily, # [place] 00 90 tab, 3 Refill(s), Pharmacy: [id number], 170.18, cm, 04/21/22 10:43: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, Height, 89.716, kg, 04/21/22 10:43: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, Weight predniSONE 2023-0 Yes 3 mg = 3 Mem oria 1 mg oral 3-01 tab, PO, l tablet 16:59: Daily, # [place] 00 90 tab, 3 Refill(s), Pharmacy: [id number], 170.18, cm, 04/21/22 10:43: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, Height, 89.716, kg, 04/21/22 10:43: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, Weight predniSONE 2023-0 Yes 3 mg = 3 Mem oria 1 mg oral 3-01 tab, PO, l tablet 16:59: Daily, # [place] 00 90 tab, 3 Refill(s), [id number], 170.18, cm, 04/21/22 10:43: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, Height, 89.716, kg, 04/21/22 10:43: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, Weight predniSONE 2023-0 Yes 3 mg = 3 Mem oria 1 mg oral 3-01 tab, PO, l tablet 16:59: Daily, # [place] 00 90 tab, 3 Refill(s), Pharmacy: [id number], 170.18, cm, 04/21/22 10:43: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, Height, 89.716, kg, 04/21/22 10:43: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, Weight predniSONE 2023-0 Yes 3 mg = 3 Mem oria 1 mg oral 3-01 tab, PO, l tablet 16:59: Daily, # [place] 00 90 tab, 3 Refill(s), Pharmacy: [id number], 170.18, cm, 04/21/22 10:43: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, Height, 89.716, kg, 04/21/22 10:43: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, Weight predniSONE 2023-0 Yes 3 mg = 3 Mem oria 1 mg oral 3-01 tab, PO, l tablet 16:59: Daily, # [place] 00 90 tab, 3 Refill(s), Pharmacy: [facility] #[id number], 170.18, cm, 04/21/22 10:43: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, Height, 89.716, kg, 04/21/22 10:43: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, Weight Viagra 100 Viagra 100 2021-02- No [...] Daily, # 120 tab, 3 Refill(s), Pharmacy: [id number], 170.18, cm, 10/21/21 9:53:00 CDT, Height, 95, kg, 10/21/21 9:53:00 CDT, Weight predniSONE 2021-02 Yes See Memoria 1 mg oral 2-01 Instructio l tablet 21:17: ns, 4 tab [place] n 00 PO Daily, # 120 tab, 3 Refill(s), Pharmacy: [facility] #[id number], 170.18, cm, 10/21/21 9:53:00 CDT, Height, 95, kg, 10/21/21 9:53:00 CDT, Weight predniSONE 2021-02 Yes See Memoria 1 mg oral 2-01 Instructio l tablet 21:17: ns, 4 tab [place] n 00 PO Daily, # 120 tab, 3 Refill(s), Pharmacy: [facility] #[id number], 170.18, cm, 10/21/21 9:53:00 CDT, Height, 95, kg, 10/21/21 9:53:00 CDT, Weight predniSONE 2021-02 Yes See Memoria 1 mg oral 2-01 Instructio l tablet 21:17: ns, 4 tab [place] n 00 PO Daily, # 120 tab, 3 Refill(s), Pharmacy: [facility] #[id number], 170.18, cm, 10/21/21 9:53:00 CDT, Height, 95, kg, 10/21/21 9:53:00 CDT, Weight predniSONE 2021-02 Yes See Memoria 1 mg oral 2-01 Instructio l tablet 21:17: ns, 4 tab [place] n 00 PO Daily, # 120 tab, 3 Refill(s), Pharmacy: [facility] #[id number], 170.18, cm, 10/21/21 9:53:00 CDT, Height, 95, kg, 10/21/21 9:53:00 CDT, Weight predniSONE 2021-02 Yes See Memoria 1 mg oral 2-01 Instructio l tablet 21:17: ns, 4 tab [place] n 00 PO Daily, # 120 tab, 3 Refill(s), Pharmacy: [facility] #[id number], 170.18, cm, 10/21/21 9:53:00 CDT, Height, 95, kg, 10/21/21 9:53:00 CDT, Weight predniSONE 2021-02 Yes See Memoria 1 mg oral 2-01 Instructio l tablet 21:17: ns, 4 tab [place] n 00 PO Daily, # 120 tab, 3 Refill(s), Pharmacy: [facility] #[id number], 170.18, cm, 10/21/21 9:53:00 CDT, Height, 95, kg, 10/21/21 9:53:00 CDT, Weight predniSONE 2021-0 Yes 5 mg = 2 Mem oria 2.5 mg oral 8-31 tab, PO, l tablet 15:02: Daily, # Pritesh 00 60 tab, 4 Refill(s), Pharmacy: [facility] #[id number], 170.18, cm, 10/21/21 9:53:00 CDT, Height, 95, kg, 10/21/21 9:53:00 CDT, Weight predniSONE 2021-0 Yes 5 mg = 2 Mem oria 2.5 mg oral 8-31 tab, PO, l tablet 15:02: Daily, # Pritesh 00 60 tab, 4 Refill(s), Pharmacy: [facility] #[id number], 170.18, cm, 10/21/21 9:53:00 CDT, Height, 95, kg, 10/21/21 9:53:00 CDT, Weight predniSONE 2022-0 Yes 5 mg = 2 Mem oria 2.5 mg oral 8-31 tab, PO, l tablet 15:02: Daily, # Pritesh 00 60 tab, 4 Refill(s), Pharmacy: [facility] #[id number], 170.18, cm, 10/21/21 9:53:00 CDT, Height, 95, kg, 10/21/21 9:53:00 CDT, Weight predniSONE 2022-0 Yes 5 mg = 2 Mem oria 2.5 mg oral 8-31 tab, PO, l tablet 15:02: Daily, # Pritesh 00 60 tab, 4 Refill(s), Pharmacy: [facility] #[id number], 170.18, cm, 10/21/21 9:53:00 CDT, Height, 95, kg, 10/21/21 9:53:00 CDT, Weight predniSONE 2022-0 Yes 5 mg = 2 Mem oria 2.5 mg oral 8-31 tab, PO, l tablet 15:02: Daily, # Pritesh 00 60 tab, 4 Refill(s), Pharmacy: [facility] #[id number], 170.18, cm, 10/21/21 9:53:00 CDT, Height, 95, kg, 10/21/21 9:53:00 CDT, Weight predniSONE 2022-0 Yes 5 mg = 2 Mem oria 2.5 mg oral 8-31 tab, PO, l tablet 15:02: Daily, # Pritesh 00 60 tab, 4 Refill(s), Pharmacy: [facility] #[id number], 170.18, cm, 10/21/21 9:53:00 CDT, Height, 95, kg, 10/21/21 9:53:00 CDT, Weight predniSONE 2022-0 Yes 5 mg = 2 Mem oria 2.5 mg oral 8-31 tab, PO, l tablet 15:02: Daily, # Pritesh 00 60 tab, 4 Refill(s), Pharmacy: [facility] #[id number], 170.18, cm, 10/21/21 9:53:00 CDT, Height, 95, kg, 10/21/21 9:53:00 CDT, Weight predniSONE 2022-0 Yes 7.5 mg = 3 M emoria 2.5 mg oral 6-02 tab, PO, l tablet 15:20: Daily, # [place] 00 90 tab, 4 Refill(s), Pharmacy: [facility] #[id number], 170.18, cm, 07/23/21 10:00:00 CDT, Height, 94.688, kg, 07/23/21 10:00:00 CDT, Weight predniSONE 2022-0 Yes 7.5 mg = 3 M emoria 2.5 mg oral 6-02 tab, PO, l tablet 15:20: Daily, # [place] 00 90 tab, 4 Refill(s), Pharmacy: [facility] #[id number], 170.18, cm, 07/23/21 10:00:00 CDT, Height, 94.688, kg, 07/23/21 10:00:00 CDT, Weight predniSONE 2022-0 Yes 7.5 mg = 3 M emoria 2.5 mg oral 6-02 tab, PO, l tablet 15:20: Daily, # [place] 00 90 tab, 4 Refill(s), Pharmacy: [id number], 170.18, cm, 07/23/21 10:00:00 CDT, Height, 94.688, kg, 07/23/21 10:00:00 CDT, Weight predniSONE 2022-0 Yes 7.5 mg = 3 M emoria 2.5 mg oral 6-02 tab, PO, l tablet 15:20: Daily, # [place] 00 90 tab, 4 Refill(s), Pharmacy: [id number], 170.18, cm, 07/23/21 10:00:00 CDT, Height, 94.688, kg, 07/23/21 10:00:00 CDT, Weight predniSONE 2022-0 Yes 7.5 mg = 3 M emoria 2.5 mg oral 6-02 tab, PO, l tablet 15:20: Daily, # Pritesh 00 90 tab, 4 Refill(s), Pharmacy: [id number], 170.18, cm, 07/23/21 10:00:00 CDT, Height, 94.688, kg, 07/23/21 10:00:00 CDT, Weight predniSONE 2-0 Yes 7.5 mg = 3 M emoria 2.5 mg oral 6-02 tab, PO, l tablet 15:20: Daily, # Pritesh 00 90 tab, 4 Refill(s), Pharmacy: [facility] #[id number], 170.18, cm, 07/23/21 10:00:00 CDT, Height, 94.688, kg, 07/23/21 10:00:00 CDT, Weight predniSONE 2-0 Yes 7.5 mg = 3 M emoria 2.5 mg oral 6-02 tab, PO, l tablet 15:20: Daily, # Pritesh 00 90 tab, 4 Refill(s), Pharmacy: [facility] #[id number], 170.18, cm, 07/23/21 10:00:00 CDT, Height, 94.688, kg, 07/23/21 10:00:00 CDT, Weight predniSONE 2021-0 Yes 10 mg = 1 Me moria 10 mg oral 4-15 tab, PO, l tablet 14:53: Daily, # Pritesh 00 30 tab, 2 Refill(s), Pharmacy: [facility] #[id number], 170.18, cm, 06/05/21 9:28:00 CDT, Height, 95, kg, 06/05/21 9:28:00 CDT, Weight predniSONE 2-0 Yes 10 mg = 1 Me moria 10 mg oral 4-15 tab, PO, l tablet 14:53: Daily, # [place] 00 30 tab, 2 Refill(s), Pharmacy: [facility] #[id number], 170.18, cm, 06/05/21 9:28:00 CDT, Height, 95, kg, 06/05/21 9:28:00 CDT, Weight predniSONE 2-0 Yes 10 mg = 1 Me moria 10 mg oral 4-15 tab, PO, l tablet 14:53: Daily, # Pritesh 00 30 tab, 2 Refill(s), Pharmacy: [facility] #[id number], 170.18, cm, 06/05/21 9:28:00 CDT, Height, 95, kg, 06/05/21 9:28:00 CDT, Weight predniSONE 2022-0 Yes 10 mg = 1 Me moria 10 mg oral 4-15 tab, PO, l tablet 14:53: Daily, # [place] 00 30 tab, 2 Refill(s), [id number], 170.18, cm, 06/05/21 9:28:00 CDT, Height, 95, kg, 06/05/21 9:28:00 CDT, Weight predniSONE 2-0 Yes 10 mg = 1 Me moria 10 mg oral 4-15 tab, PO, l tablet 14:53: Daily, # Pritesh 00 30 tab, 2 Refill(s), [id number], 170.18, cm, 06/05/21 9:28:00 CDT, Height, 95, kg, 06/05/21 9:28:00 CDT, Weight predniSONE 2021-0 Yes 10 mg = 1 Me moria 10 mg oral 4-15 tab, PO, l tablet 14:53: Daily, # [place] 00 30 tab, 2 Refill(s), Pharmacy: [facility] #[id number], 170.18, cm, 06/05/21 9:28:00 CDT, Height, 95, kg, 06/05/21 9:28:00 CDT, Weight predniSONE 2021-0 Yes 10 mg = 1 Me moria 10 mg oral 4-15 tab, PO, l tablet 14:53: Daily, # [place] 00 30 tab, 2 Refill(s), [id number], 170.18, cm, 06/05/21 9:28:00 CDT, Height, [...] 00 30 tab, 0 release Refill(s) predniSONE 2022-0 Yes 10 mg = 1 Me moria 10 mg oral 3-04 tab, PO, l tablet 16:34: Daily, # [place] 00 30 tab, 2 Refill(s), Pharmacy: [facility] #[id number], 170.18, cm, 04/24/21 10:11: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, Height, 95, kg, 04/24/21 10:11: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, Weight predniSONE 2021-0 Yes 10 mg = 1 Me moria 10 mg oral 3-04 tab, PO, l tablet 16:34: Daily, # Pritesh 00 30 tab, 2 Refill(s), Pharmacy: [facility] #[id number], 170.18, cm, 04/24/21 10:11: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, Height, 95, kg, 04/24/21 10:11: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, Weight predniSONE 2021-0 Yes 10 mg = 1 Me moria 10 mg oral 3-04 tab, PO, l tablet 16:34: Daily, # [place] 00 30 tab, 2 Refill(s), Pharmacy: [id number], 170.18, cm, 04/24/21 10:11: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, Height, 95, kg, 04/24/21 10:11: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, Weight predniSONE 2022-0 Yes 10 mg = 1 Me moria 10 mg oral 3-04 tab, PO, l tablet 16:34: Daily, # Pritesh 00 30 tab, 2 Refill(s), Pharmacy: [facility] #[id number], 170.18, cm, 04/24/21 10:11: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, Height, 95, kg, 04/24/21 10:11: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, Weight predniSONE 2-0 Yes 10 mg = 1 Me moria 10 mg oral 3-04 tab, PO, l tablet 16:34: Daily, # [place] 00 30 tab, 2 Refill(s), Pharmacy: [facility] #[id number], 170.18, cm, 04/24/21 10:11: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, Height, 95, kg, 04/24/21 10:11: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, Weight predniSONE 2021-0 Yes 10 mg = 1 Me moria 10 mg oral 3-04 tab, PO, l tablet 16:34: Daily, # Pritesh 00 30 tab, 2 Refill(s), Pharmacy: [facility] #[id number], 170.18, cm, 04/24/21 10:11: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, Height, 95, kg, 04/24/21 10:11: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, Weight predniSONE 2021-0 Yes 10 mg = 1 Me moria 10 mg oral 3-04 tab, PO, l tablet 16:34: Daily, # [place] 00 30 tab, 2 Refill(s), Pharmacy: [facility] #[id number], 170.18, cm, 04/24/21 10:11: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, Height, 95, kg, 04/24/21 10:11: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, Weight predniSONE 2021-0 Yes 20 mg = 1 Me moria 20 mg oral 1-20 tab, PO, l tablet 16:52: Daily, X [place] 00 30 day, # 30 tab, 2 Refill(s), Pharmacy: [facility] #[id number], 170.18, cm, 03/12/21 10:25: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, Height, 89.091, kg, 03/12/21 10:25: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, Weight predniSONE 2022-0 Yes 20 mg = 1 Me moria 20 mg oral 1-20 tab, PO, l tablet 16:52: Daily, X [place] 00 30 day, # 30 tab, 2 Refill(s), Pharmacy: [facility] #[id number], 170.18, cm, 03/12/21 10:25: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, Height, 89.091, kg, 03/12/21 10:25: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, Weight predniSONE 2022-0 Yes 20 mg = 1 Me moria 20 mg oral 1-20 tab, PO, l tablet 16:52: Daily, X [place] 30 day, # 30 tab, 2 Refill(s), Pharmacy: [facility] #[id number], 170.18, cm, 03/12/21 10:25: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, Height, 89.091, kg, 03/12/21 10:25: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, Weight predniSONE 2022-0 Yes 20 mg = 1 Me moria 20 mg oral 1-20 tab, PO, l tablet 16:52: Daily, X [place] 30 day, # 30 tab, 2 Refill(s), Pharmacy: [facility] #[id number], 170.18, cm, 03/12/21 10:25: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, Height, 89.091, kg, 03/12/21 10:25: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, Weight predniSONE 2022-0 Yes 20 mg = 1 Me moria 20 mg oral 1-20 tab, PO, l tablet 16:52: Daily, X Pritesh 00 30 day, # 30 tab, 2 Refill(s), Pharmacy: [facility] #[id number], 170.18, cm, 03/12/21 10:25: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, Height, 89.091, kg, 03/12/21 10:25: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, Weight predniSONE 2022-0 Yes 20 mg = 1 Me moria 20 mg oral 1-20 tab, PO, l tablet 16:52: Daily, X Pritesh 30 day, # 30 tab, 2 Refill(s), Pharmacy: [facility] #[id number], 170.18, cm, 03/12/21 10:25: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, Height, 89.091, kg, 03/12/21 10:25: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, Weight predniSONE 2022-0 Yes 20 mg = 1 Me moria 20 mg oral 1-20 tab, PO, l tablet 16:52: Daily, X [place] 30 day, # 30 tab, 2 Refill(s), Pharmacy: [facility] #[id number], 170.18, cm, 03/12/21 10:25: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, Height, 89.091, kg, 03/12/21 10:25: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, Weight ciprofloxac 2021-0 Yes 0 Memori a [...] day, # 60 tab, 2 Refill(s), Pharmacy: [facility] #[id number], 172.72, cm, 01/29/21 11:37: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, Height, 88.636, kg, 01/29/21 11:37: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, Weight predniSONE 2020-02 Yes 40 mg = 2 Me moria 20 mg oral 2-09 tab, PO, l tablet 18:05: Daily, X Pritesh 30 day, # 60 tab, 2 Refill(s), Pharmacy: [facility] #[id number], 172.72, cm, 01/29/21 11:37: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, Height, 88.636, kg, 01/29/21 11:37: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, Weight predniSONE 2020- Yes 40 mg = 2 Me moria 20 mg oral 2-09 tab, PO, l tablet 18:05: Daily, X Pritesh 30 day, # 60 tab, 2 Refill(s), Pharmacy: [facility] #[id number], 172.72, cm, 01/29/21 11:37: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, Height, 88.636, kg, 01/29/21 11:37: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, Weight predniSONE 2020- Yes 40 mg = 2 Me moria 20 mg oral 2-09 tab, PO, l tablet 18:05: Daily, X [place] 30 day, # 60 tab, 2 Refill(s), Pharmacy: [facility] ST[facility] #[id number], 172.72, cm, 01/29/21 11:37: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, Height, 88.636, kg, 01/29/21 11:37: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, Weight predniSONE 2020- Yes 40 mg = 2 Me moria 20 mg oral 2-09 tab, PO, l tablet 18:05: Daily, X Pritesh 30 day, # 60 tab, 2 Refill(s), Pharmacy: [facility] ST[facility] #[id number], 172.72, cm, 01/29/21 11:37: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, Height, 88.636, kg, 01/29/21 11:37: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, Weight predniSONE 2020-02 Yes 40 mg = 2 Me moria 20 mg oral 2-09 tab, PO, l tablet 18:05: Daily, X [place] 30 day, # 60 tab, 2 Refill(s), Pharmacy: [facility] ST[facility] #[id number], 172.72, cm, 01/29/21 11:37: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, Height, 88.636, kg, 01/29/21 11:37: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, Weight predniSONE 2020- Yes 40 mg = 2 Me moria 20 mg oral 2-09 tab, PO, l tablet 18:05: Daily, X Prescott 30 day, # 60 tab, 2 Refill(s), Pharmacy: [facility] STORE #[id number], 172.72, cm, 01/29/21 11:37: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, Height, 88.636, kg, 01/29/21 11:37: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, Weight alax 2020-02 Yes 17 gm, PO, John sunil 2-09 Daily, 0 l 17:49: Refill(s) Pritesh 00 MiraLax 2020-02 Yes 17 gm, PO, John sunil 2-09 Daily, 0 l 17:49: Refill(s) Pritesh 00 Miralax 2020-02 Yes 17 gm, PO, John sunil 2-09 Daily, 0 l 17:49: Refill(s) Pritesh 00 MiraLax 2020-02 Yes 17 gm, PO, John sunil 2-09 Daily, 0 l 17:49: Refill(s) Pritesh 00 Miralax 2020-02 Yes 17 gm, PO, John sunil 2-09 Daily, 0 l 17:49: Refill(s) Pritesh 00 MiraLax 2020-02 Yes 17 gm, PO, John sunil 2-09 Daily, 0 l 17:49: Refill(s) [place]cott 00 Miralax 2020-02 Yes 17 gm, PO, John sunil 2-09 Daily, 0 l 17:49: Refill(s) [place]cott 00 MiraLax 2020-02 Yes 17 gm, PO, John sunil 2-09 Daily, 0 l 17:49: Refill(s) [place] 00 Miralax 2020-02 Yes 17 gm, PO, John sunil 2-09 Daily, 0 l 17:49: Refill(s) Pritesh 00 MiraLax 2020-02 Yes 17 gm, PO, John sunil 2-09 Daily, 0 l 17:49: Refill(s) [place] 00 Miralax 2020-02 Yes 17 gm, PO, John sunil 2-09 Daily, 0 l 17:49: Refill(s) [place] 00 MiraLax 2020-02 Yes 17 gm, PO, John sunil 2-09 Daily, 0 l 17:49: Refill(s) Pritesh 00 Miralax 2020-02 Yes 17 gm, PO, John sunil 2-09 Daily, 0 l 17:49: Refill(s) [place] 00 MiraLax 2020-02 Yes 17 gm, PO, John sunil 2-09 Daily, 0 l 17:49: Refill(s) [place] 00 ciprofloxac 2020-02 Yes 500 mg = 1 [...] l de 50 MG 17:47: Q6H, 0 Prescott Oral Tablet 00 Refill(s) tramadol 50 2020-02 Yes 50 mg = 1 M emoria mg oral 2-09 tab, PO, l tablet 17:47: Q6H, 0 [place] 00 Refill(s) tramadol 2020-02 Yes 50 mg = 1 John sunil hydrochlori 2-09 tab, PO, l de 50 MG 17:47: Q6H, 0 Pritesh Oral Tablet 00 Refill(s) tramadol 50 2020-02 Yes 50 mg = 1 M emoria mg oral 2-09 tab, PO, l tablet 17:47: Q6H, 0 [place] 00 Refill(s) tramadol 2020-02 Yes 50 mg = 1 John sunil hydrochlori 2-09 tab, PO, l de 50 MG 17:47: Q6H, 0 [place] Oral Tablet 00 Refill(s) tramadol 50 2020-02 [...] tab, PO, l tablet 17:47: Q6H, 0 [place] 00 Refill(s) tramadol 2020-02 Yes 50 mg = 1 John sunil hydrochlori 2-09 tab, PO, l de 50 MG 17:47: Q6H, 0 Pritesh Oral Tablet 00 Refill(s) tramadol 50 2020-02 Yes 50 mg = 1 M emoria mg oral 2-09 tab, PO, l tablet 17:47: Q6H, 0 [place] 00 Refill(s) tramadol 2020-02 Yes 50 mg = 1 John sunil hydrochlori 2-09 tab, PO, l de 50 MG 17:47: Q6H, 0 [place] Oral Tablet 00 Refill(s) tramadol 50 2020-02 Yes 50 mg = 1 M emoria mg oral 2-09 tab, PO, l tablet 17:47: Q6H, 0 [place] 00 Refill(s) tramadol 2020-02 Yes 50 mg = 1 John sunil hydrochlori 2-09 tab, PO, l de 50 MG 17:47: Q6H, 0 [place] Oral Tablet 00 Refill(s) tramadol 50 2020-02 Yes 50 mg = 1 M emoria mg oral 2-09 tab, PO, l tablet 17:47: Q6H, 0 Pritesh 00 Refill(s) predniSONE 2020-02 Yes 60 mg = 3 Me moria 20 mg oral 1-09 tab, PO, l tablet 15:54: Daily, X [place] 00 30 day, # 90 tab, 2 Refill(s), [id number] 170.18, cm, 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, 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727, kg, 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, Weight predniSONE 2020-02 Yes 60 mg = 3 Me moria 20 mg oral 1-09 tab, PO, l tablet 15:54: Daily, X Pritesh 00 30 day, # 90 tab, 2 Refill(s), [id number], 170.18, cm, 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, 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, 92.727, kg, 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, 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 predniSONE 2020-02 Yes 60 mg = 3 Me moria 20 mg oral 1-09 tab, PO, l tablet 15:54: Daily, X Pritesh 00 30 day, # 90 tab, 2 Refill(s), Pharmacy: [facility] #[id number], 170.18, cm, 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, 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, 92.727, kg, 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, Weight predniSONE 2020-02 Yes 60 mg = 3 Me moria 20 mg oral 1-09 tab, PO, l tablet 15:54: Daily, X Pritesh 00 30 day, # 90 tab, 2 Refill(s), Pharmacy: [facility] #[id number], 170.18, cm, 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, Height, 92.727, kg, 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, 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 predniSONE 2020-02 Yes 60 mg = 3 Me moria 20 mg oral 1-09 tab, PO, l tablet 15:54: Daily, X [place] 00 30 day, # 90 tab, 2 Refill(s), Pharmacy: [facility] #[id number], 170.18, cm, 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, 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, 92.727, kg, 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, Weight predniSONE 2020-02 No 60 mg = 3 Me moria 20 mg oral 1-09 tab, PO, l tablet 15:50: Daily, 0 [place] 00 Refill(s) predniSONE 2020-02 No 60 mg = 3 Me moria 20 mg oral 1-09 tab, PO, l tablet 15:50: Daily, 0 [place] 00 Refill(s) predniSONE 2020-02 No 60 mg = 3 Me moria 20 mg oral 1-09 tab, PO, l tablet 15:50: Daily, 0 [place] 00 Refill(s) predniSONE 2020-02 No 60 mg = 3 Me moria 20 mg oral 1-09 tab, PO, l tablet 15:50: Daily, 0 Pritesh 00 Refill(s) predniSONE 2020-02 No 60 mg = 3 Me moria 20 mg oral 1-09 tab, PO, l tablet 15:50: Daily, 0 [place] 00 Refill(s) predniSONE 2020-02 No 60 mg = 3 Me moria 20 mg oral 1-09 tab, PO, l tablet 15:50: Daily, 0 [place] 00 Refill(s) predniSONE 2020-02 No 60 mg = 3 Me moria 20 mg oral 1-09 tab, PO, l tablet 15:50: Daily, 0 [place] 00 Refill(s) MethylPREDN 2020-02 No FOLLOW John sunil ISolone 03-01 PACKAGE l Dose Pack 4 15:46: DIRECTIONS [place] mg oral 00 tablet MethylPREDN 2020-02 No [...] PACKAGE l Dose Pack 4 15:46: DIRECTIONS [place] mg oral 00 tablet MethylPREDN 2020-02 No [...] nn 00 EVERY NIGHT AT BEDTIME atorvastati 0 Yes TAKE 1 John sunil n 10 mg 5-20 TABLET BY l oral tablet 16:00: MOUTH Iqra nn 00 EVERY NIGHT AT BEDTIME atorvastati 0 Yes TAKE 1 John sunil n 10 mg 5-20 TABLET BY l oral tablet 16:00: MOUTH Iqra nn 00 EVERY NIGHT AT BEDTIME atorvastati 0 Yes TAKE 1 John sunil n 10 mg 5-20 TABLET BY l oral tablet 16:00: MOUTH Iqra nn 00 EVERY NIGHT AT BEDTIME atorvastati 0 Yes TAKE 1 John sunil n 10 mg 5-20 TABLET BY l oral tablet 16:00: MOUTH Iqra nn 00 EVERY NIGHT AT BEDTIME atorvastati 0 Yes TAKE 1 John sunil n 10 mg 5-20 TABLET BY l oral tablet 16:00: MOUTH Iqra nn 00 EVERY NIGHT AT BEDTIME atorvastati 0 Yes TAKE 1 John sunil n 10 mg 5-20 TABLET BY l oral tablet 16:00: MOUTH Iqra nn 00 EVERY NIGHT AT BEDTIME Prednisone 2019- Yes 1 mg = 1 Mem oria 1 MG Oral 1-20 tab, PO, l Tablet 17:25: Daily, # [place] 00 30 tab, 4 Refill(s), Pharmacy: [facility] #[id number], 172.72, cm, 01/11/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, 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, 94.545, kg, 01/11/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, Weight Prednisone 2020-1 Yes 1 mg = 1 Mem oria 1 MG Oral 1-20 tab, PO, l Tablet 17:25: Daily, # [place] 00 30 tab, 4 Refill(s), [id number], 172.72, cm, 01/11/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, 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, 94.545, kg, 01/11/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, Weight Prednisone 2020-1 Yes 1 mg = 1 Mem oria 1 MG Oral 1-20 tab, PO, l Tablet 17:25: Daily, # [place] 00 30 tab, 4 Refill(s), [id number], 172.72, cm, 01/11/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, 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, 94.545, kg, 01/11/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, Weight Prednisone 2020-1 Yes 1 mg = 1 Mem oria 1 MG Oral 1-20 tab, PO, l Tablet 17:25: Daily, # [place] 00 30 tab, 4 Refill(s), [facility][id number], 172.72, cm, 01/11/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, Height, 94.545, kg, 01/11/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, Weight Prednisone 2020-1 Yes 1 mg = 1 Mem oria 1 MG Oral 1-20 tab, PO, l Tablet 17:25: Daily, # [place] 00 30 tab, 4 Refill(s), [id number], 172.72, cm, 01/11/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, 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, 94.545, kg, 01/11/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, Weight Prednisone 2020-1 Yes 1 mg = 1 Mem oria 1 MG Oral 1-20 tab, PO, l Tablet 17:25: Daily, # [place] 00 30 tab, 4 Refill(s), [facility][id number], 172.72, cm, 01/11/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, 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, 94.545, kg, 01/11/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, Weight Prednisone 2020-1 Yes 1 mg = 1 Mem oria 1 MG Oral 1-20 tab, PO, l Tablet 17:25: Daily, # [place] 00 30 tab, 4 Refill(s), [id number], 172.72, cm, 01/11/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, Height, 94.545, kg, 01/11/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, Weight Prednisone 2020-0 Yes 2 mg = 2 Mem oria 1 MG Oral 8-20 tab, PO, l Tablet 15:57: Daily, # [place] 00 60 tab, 4 Refill(s), [id number], 172.72, cm, 10/11/19 10:47:00 CDT, Height, 94.545, kg, 10/11/19 10:47:00 CDT, Weight Prednisone 2020-0 Yes 2 mg = 2 Mem oria 1 MG Oral 8-20 tab, PO, l Tablet 15:57: Daily, # Pritesh 00 60 tab, 4 Refill(s), [id number], 172.72, cm, 10/11/19 10:47:00 CDT, Height, 94.545, kg, 10/11/19 10:47:00 CDT, Weight Prednisone 2020-0 Yes 2 mg = 2 Mem oria 1 MG Oral 8-20 tab, PO, l Tablet 15:57: Daily, # [place] 00 60 tab, 4 Refill(s), Pharmacy: [facility] #[id number], 172.72, cm, 10/11/19 10:47:00 CDT, Height, 94.545, kg, 10/11/19 10:47:00 CDT, Weight Prednisone 2020-0 Yes 2 mg = 2 Mem oria 1 MG Oral 8-20 tab, PO, l Tablet 15:57: Daily, # Pritesh 00 60 tab, 4 Refill(s), Pharmacy: [facility] #[id number], 172.72, cm, 10/11/19 10:47:00 CDT, Height, 94.545, kg, 10/11/19 10:47:00 CDT, Weight Prednisone 2020-0 Yes 2 mg = 2 Mem oria 1 MG Oral 8-20 tab, PO, l Tablet 15:57: Daily, # Pritesh 00 60 tab, 4 Refill(s), Pharmacy: [facility] #[id number], 172.72, cm, 10/11/19 10:47:00 CDT, Height, 94.545, kg, 10/11/19 10:47:00 CDT, Weight Prednisone 2020-0 Yes 2 mg = 2 Mem oria 1 MG Oral 8-20 tab, PO, l Tablet 15:57: Daily, # Pritesh 00 60 tab, 4 Refill(s), Pharmacy: [facility] [facility] [place][id number], 172.72, cm, 10/11/19 10:47:00 CDT, Height, 94.545, kg, 10/11/19 10:47:00 CDT, Weight Prednisone 2020-0 Yes 2 mg = 2 Mem oria 1 MG Oral 8-20 tab, PO, l Tablet 15:57: Daily, # [place] 00 60 tab, 4 Refill(s), Pharmacy: [facility] [facility][id number], 172.72, cm, 10/11/19 10:47:00 CDT, Height, 94.545, kg, 10/11/19 10:47:00 CDT, Weight predniSONE 2020-0 Yes 2.5 mg = 1 M emoria 2.5 mg oral 5-20 tab, PO, l tablet 16:17: Daily, # [place] 00 30 tab, 3 Refill(s), Pharmacy: [facility] [id number] predniSONE 2020-0 Yes 2.5 mg = 1 M emoria 2.5 mg oral 5-20 tab, PO, l tablet 16:17: Daily, # Pritesh 00 30 tab, 3 Refill(s), Pharmacy: [facility] #[id number] predniSONE 2020-0 Yes 2.5 mg = 1 M emoria 2.5 mg oral 5-20 tab, PO, l tablet 16:17: Daily, # [place] 00 30 tab, 3 Refill(s), Pharmacy: [facility] #[id number] predniSONE 2020-0 Yes 2.5 mg = 1 M emoria 2.5 mg oral 5-20 tab, PO, l tablet 16:17: Daily, # Pritesh 00 30 tab, 3 Refill(s), Pharmacy: [facility] #[id number] predniSONE 2020-0 Yes 2.5 mg = 1 M emoria 2.5 mg oral 5-20 tab, PO, l tablet 16:17: Daily, # Pritesh 00 30 tab, 3 Refill(s), Pharmacy: [facility] #[id number] predniSONE 2020-0 Yes 2.5 mg = 1 M emoria 2.5 mg oral 5-20 tab, PO, l tablet 16:17: Daily, # [place] 00 30 tab, 3 Refill(s), Pharmacy: [facility] #[id number] predniSONE 2020-0 Yes 2.5 mg = 1 M emoria 2.5 mg oral 5-20 tab, PO, l tablet 16:17: Daily, # [place] 00 30 tab, 3 Refill(s), Pharmacy: [facility] #[facility] predniSONE 2019-1 Yes 5 mg = 2 Mem oria 2.5 mg oral 2-10 tab, PO, l tablet 22:46: Daily, # Pritesh 14 60 tab, 3 Refill(s), Pharmacy: [facility] #[facility] predniSONE 2019-1 Yes 5 mg = 2 Mem oria 2.5 mg oral 2-10 tab, PO, l tablet 22:46: Daily, # [place] 14 60 tab, 3 Refill(s), Pharmacy: [facility] [facility] predniSONE 2019-1 Yes 5 mg = 2 Mem oria 2.5 mg oral 2-10 tab, PO, l tablet 22:46: Daily, # Pritesh 14 60 tab, 3 Refill(s), Pharmacy: [facility] #[id number] predniSONE 2019-1 Yes 5 mg = 2 Mem oria 2.5 mg oral 2-10 tab, PO, l tablet 22:46: Daily, # [place] 14 60 tab, 3 Refill(s), Pharmacy: [facility] #[id number] predniSONE 2019-1 Yes 5 mg = 2 Mem oria 2.5 mg oral 2-10 tab, PO, l tablet 22:46: Daily, # [place] 14 60 tab, 3 Refill(s), Pharmacy: [facility] #[facility] predniSONE 2019-1 Yes 5 mg = 2 Mem oria 2.5 mg oral 2-10 tab, PO, l tablet 22:46: Daily, # [place] 14 60 tab, 3 Refill(s), Pharmacy: [facility] #[id number] predniSONE 2019-1 Yes 5 mg = 2 Mem oria 2.5 mg oral 2-10 tab, PO, l tablet 22:46: Daily, # [place] 14 60 tab, 3 Refill(s), Pharmacy: [facility] #[id number] predniSONE 2019-0 Yes 7.5 mg = 3 M emoria 2.5 mg oral 9-20 tab, PO, l tablet 21:29: Daily, # [place] 41 90 tab, 3 Refill(s), Pharmacy: [facility] #[id number] predniSONE 2019-0 Yes 7.5 mg = 3 M emoria 2.5 mg oral 9-20 tab, PO, l tablet 21:29: Daily, # Pritesh 41 90 tab, 3 Refill(s), Pharmacy: [facility] #[id number] predniSONE 2019-0 Yes 7.5 mg = 3 M emoria 2.5 mg oral 9-20 tab, PO, l tablet 21:29: Daily, # Pritesh 41 90 tab, 3 Refill(s), Pharmacy: [facility] #[id number] predniSONE 2019-0 Yes 7.5 mg = 3 M emoria 2.5 mg oral 9-20 tab, PO, l tablet 21:29: Daily, # [place] 41 90 tab, 3 Refill(s), Pharmacy: [facility] #[id number] predniSONE 2019-0 Yes 7.5 mg = 3 M emoria 2.5 mg oral 9-20 tab, PO, l tablet 21:29: Daily, # Pritesh 41 90 tab, 3 Refill(s), Pharmacy: [facility] #[id number] predniSONE 2019-0 Yes 7.5 mg = 3 M emoria 2.5 mg oral 9-20 tab, PO, l tablet 21:29: Daily, # Pritesh 41 90 tab, 3 Refill(s), Pharmacy: [facility] #[id number] predniSONE 2019-0 Yes 7.5 mg = 3 M emoria 2.5 mg oral 9-20 tab, PO, l tablet 21:29: Daily, # [place] 41 90 tab, 3 Refill(s), Pharmacy: [facility] #[id number] Restasis 2019-0 Yes 0.4 mL, Memori a 9-20 BOTH EYES, l 21:07: BID, 0 Pritesh 00 Refill(s) Restasis 2019-0 Yes 0.4 mL, Memori a 9-20 BOTH EYES, l 21:07: BID, 0 Pritesh 00 Refill(s) Restasis 2019-0 Yes 0.4 mL, Memori a 9-20 BOTH EYES, l 21:07: BID, 0 [place] 00 Refill(s) Restasis 2019-0 Yes 0.4 mL, Memori a 9-20 BOTH EYES, l 21:07: BID, 0 Pritesh 00 Refill(s) Restasis 2019-0 Yes 0.4 mL, Memori a 9-20 BOTH EYES, l 21:07: BID, 0 [place] 00 Refill(s) Restasis 2019-0 Yes 0.4 mL, Memori a 9-20 BOTH EYES, l 21:07: BID, 0 Pritesh 00 Refill(s) Restasis 2019-0 Yes 0.4 mL, Memori a 9-20 BOTH EYES, l 21:07: BID, 0 [place] 00 Refill(s) Restasis 2019-0 Yes 0.4 mL, Memori a 9-20 BOTH EYES, l 21:07: BID, 0 Pritesh 00 Refill(s) Restasis 2019-0 Yes 0.4 mL, Memori a 9-20 BOTH EYES, l 21:07: BID, 0 [place] 00 Refill(s) Restasis 2019-0 Yes 0.4 mL, [...] 9-20 BOTH EYES, l 21:07: BID, 0 [place] 00 Refill(s) Restasis 2019-0 Yes 0.4 mL, Memori a 9-20 BOTH EYES, l 21:07: BID, 0 [place] 00 Refill(s) predniSONE 2019-0 Yes 5 mg = 2 Mem oria 2.5 mg oral 8-02 tab, PO, l tablet 21:15: Daily, # Pritesh 19 60 tab, 3 Refill(s), Pharmacy: [facility] [facility] #[id number] predniSONE 2019-0 Yes 5 mg = 2 Mem oria 2.5 mg oral 8-02 tab, PO, l tablet 21:15: Daily, # [place] 19 60 tab, 3 Refill(s), Pharmacy: [facility] #[id number] predniSONE 2019-0 Yes 5 mg = 2 Mem oria 2.5 mg oral 8-02 tab, PO, l tablet 21:15: Daily, # [place] 19 60 tab, 3 Refill(s), Pharmacy: [facility] #[id number] predniSONE 2019-0 Yes 5 mg = 2 Mem oria 2.5 mg oral 8-02 tab, PO, l tablet 21:15: Daily, # Pritesh 19 60 tab, 3 Refill(s), Pharmacy: [facility] #[id number] predniSONE 2019-0 Yes 5 mg = 2 Mem oria 2.5 mg oral 8-02 tab, PO, l tablet 21:15: Daily, # [place] 19 60 tab, 3 Refill(s), Pharmacy: [facility] [facility][id number] predniSONE 2019-0 Yes 5 mg = 2 Mem oria 2.5 mg oral 8-02 tab, PO, l tablet 21:15: Daily, # [place] 19 60 tab, 3 Refill(s), Pharmacy: [facility] #[id number] predniSONE 2019-0 Yes 5 mg = 2 Mem oria 2.5 mg oral 8-02 tab, PO, l tablet 21:15: Daily, # [place] 19 60 tab, 3 Refill(s), Pharmacy: [facility] #[id number] predniSONE 2019-0 No 7.5 mg = 3 M emoria 2.5 mg oral 7-03 tab, PO, l tablet 16:57: Daily, # [place] 34 90 tab, 3 Refill(s), Pharmacy: [facility] [id number] predniSONE 2019-0 No 7.5 mg = 3 M emoria 2.5 mg oral 7-03 tab, PO, l tablet 16:57: Daily, # Pritesh 34 90 tab, 3 Refill(s), Pharmacy: [facility] [place] [id number] predniSONE 2019-0 No 7.5 mg = 3 M emoria 2.5 mg oral 7-03 tab, PO, l tablet 16:57: Daily, # [place] 34 90 tab, 3 Refill(s), Pharmacy: [facility] [place] [id number] predniSONE 2019-0 No 7.5 mg = 3 M emoria 2.5 mg oral 7-03 tab, PO, l tablet 16:57: Daily, # [place] 34 90 tab, 3 Refill(s), Pharmacy: [facility] [place] [id number] predniSONE 2019-0 No 7.5 mg = 3 M emoria 2.5 mg oral 7-03 tab, PO, l tablet 16:57: Daily, # Pritesh 34 90 tab, 3 Refill(s), Pharmacy: [facility] [place] [id number] predniSONE 2019-0 No 7.5 mg = 3 M emoria 2.5 mg oral 7-03 tab, PO, l tablet 16:57: Daily, # Pritesh 34 90 tab, 3 Refill(s), Pharmacy: [facility] [place] [id number] predniSONE 2019-0 No 7.5 mg = 3 M emoria 2.5 mg oral 7-03 tab, PO, l tablet 16:57: Daily, # [place] 34 90 tab, 3 Refill(s), Pharmacy: [facility] [place] [id number] Ketorolac Ketorolac 2019-0 No 60mg Com mon 15mg 15mg 07-28 [facility]: - [facility] Ketorolac Ketorolac 2019-0 No 60mg Com mon 15mg 15mg 07-28 [facility] 00:00: - [facility] Ketorolac Ketorolac 2019-0 No 60mg Com mon 15mg 15mg 07-28 [facility] 00:00: - [facility] Ketorolac Ketorolac 2019-0 No 60mg Com mon 15mg 15mg 07-28 [facility] 00:00: - [facility] predniSONE 2019-0 Yes 5 mg = 2 Mem oria 2.5 mg oral 5-17 tab, PO, l tablet 14:29: Daily, # Pritesh 00 60 tab, 3 Refill(s), Pharmacy: [place] [id number] predniSONE 2019-0 Yes 5 mg = 2 Mem oria 2.5 mg oral 5-17 tab, PO, l tablet 14:29: Daily, # Pritesh 00 60 tab, 3 Refill(s), Pharmacy: [place] [address] predniSONE 2019-0 Yes 5 mg = 2 Mem oria 2.5 mg oral 5-17 tab, PO, l tablet 14:29: Daily, # Pritesh 00 60 tab, 3 Refill(s), Pharmacy: [place] [address] predniSONE 2019-0 Yes 5 mg = 2 Mem oria 2.5 mg oral 5-17 tab, PO, l tablet 14:29: Daily, # Pritesh 00 60 tab, 3 Refill(s), Pharmacy: [place] [address] predniSONE 2019-0 Yes 5 mg = 2 Mem oria 2.5 mg oral 5-17 tab, PO, l tablet 14:29: Daily, # Pritesh 00 60 tab, 3 Refill(s), Pharmacy: [place] [address] predniSONE 2019-0 Yes 5 mg = 2 Mem oria 2.5 mg oral 5-17 tab, PO, l tablet 14:29: Daily, # [place] 00 60 tab, 3 Refill(s), Pharmacy: [place] [address] predniSONE 2019-0 Yes 5 mg = 2 Mem oria 2.5 mg oral 5-17 tab, PO, l tablet 14:29: Daily, # [place] 00 60 tab, 3 Refill(s), Pharmacy: [place] [address] atorvastati 2019-0 Yes 20 mg = 1 M emoria n 20 mg 5-17 tab, PO, l oral tablet 14:19: Bedtime, # [place] 00 30 tab, 0 Refill(s) azilsartan 2019-0 [...] tab, PO, l tablet 14:19: Daily, # [place] 00 30 tab, 0 Refill(s) aspirin 81 [...] Pritesh 00 30 tab, 0 Refill(s) azilsartan 2019-0 [...] tab, PO, l tablet 14:19: Daily, 0 [place] 00 Refill(s) amLODIPine 2019-0 Yes 10 mg = 1 Me moria 10 mg oral 5-17 tab, PO, l tablet 14:19: Daily, # Pritesh 00 90 tab, 0 Refill(s) clopidogrel 2019- Yes 75 mg = 1 M emoria 75 mg oral 5-17 tab, PO, l tablet 14:19: Daily, # [place] 00 30 tab, 0 Refill(s) aspirin 81 [...] 00 30 cap, 0 capsule Refill(s) atorvastati 2018-0 Yes 20 mg = 1 M emoria n 20 mg 5-17 tab, PO, l oral tablet 14:19: Bedtime, # [place] 00 30 tab, 0 Refill(s) azilsartan 2019-0 [...] tab, PO, l Coated 14:19: Daily, # [place] Tablet 00 90 tab, 3 Refill(s) Edarbi [...] tab, PO, l Coated 14:19: Daily, # [place] Tablet 00 90 tab, 3 Refill(s) Edarbi 40 2019-0 Yes 40 mg = 1 Mem oria mg oral 5-17 tab, PO, l tablet 14:19: Daily, 0 [place] 00 Refill(s) amLODIPine 2019- Yes 10 mg = 1 Me moria 10 mg oral 5-17 tab, PO, l tablet 14:19: Daily, # Pritesh 00 90 tab, 0 Refill(s) clopidogrel 2019-0 [...] 00 30 cap, 0 capsule Refill(s) atorvastati 2019-0 Yes 20 mg = 1 M emoria n 20 mg 5-17 tab, PO, l oral tablet 14:19: Bedtime, # Pritesh 00 30 tab, 0 Refill(s) azilsartan 2019-0 [...] tab, PO, l Coated 14:19: Daily, # [place] Tablet 00 90 tab, 3 Refill(s) Edarbi 40 2019-0 Yes 40 mg = 1 Mem oria mg oral 5-17 tab, PO, l tablet 14:19: Daily, 0 [place] 00 Refill(s) amLODIPine 2019-0 Yes 10 mg = 1 Me moria 10 mg oral 5-17 tab, PO, l tablet 14:19: Daily, # Pritesh 00 90 tab, 0 Refill(s) clopidogrel 2019-0 Yes 75 mg = 1 M emoria 75 mg oral 5-17 tab, PO, l tablet 14:19: Daily, # [place] 00 30 tab, 0 Refill(s) aspirin 81 [...] 00 30 cap, 0 capsule Refill(s) atorvastati 2019-0 Yes 20 mg = 1 M emoria n 20 mg 5-17 tab, PO, l oral tablet 14:19: Bedtime, # Pritesh 00 30 tab, 0 Refill(s) azilsartan 2019-0 [...] 14:19: Daily, 0 Pritesh 00 Refill(s) amLODIPine 2019-0 Yes 10 mg = 1 Me moria 10 mg oral 5-17 tab, PO, l tablet 14:19: Daily, # [place] 00 90 tab, 0 Refill(s) clopidogrel 2019-0 [...] PO, l oral tablet 14:19: Bedtime, # [place] 00 30 tab, 0 Refill(s) azilsartan 2018- Yes 40 mg = 1 Me [...] tab, PO, l Coated 14:19: Daily, # [place] Tablet 00 90 tab, 3 Refill(s) Edarbi 40 2018- Yes 40 mg = 1 Mem oria mg oral 5-17 tab, PO, l tablet 14:19: Daily, 0 Pritesh 00 Refill(s) amLODIPine 2018- Yes 10 mg = 1 Me moria 10 mg oral 5-17 tab, PO, l tablet 14:19: Daily, # Pritesh 00 90 tab, 0 Refill(s) clopidogrel 2018- Yes 75 mg = 1 M emoria 75 mg oral 5-17 tab, PO, l tablet 14:19: Daily, # [place] 00 30 tab, 0 Refill(s) aspirin 81 [...] release 00 30 cap, 0 capsule Refill(s) Omeprazole Omeprazole No QD Omeprazole 40 MG [...] Comments Source height 2022-02-04 14:30:00 70 [in_i] [facility] weight 2022-02-04 14:30:00 204 [lb_av] [facility] temperature 2022-02-04 14:30:00 98.2 [degF] [facility] bmi 2022-02-04 14:30:00 29.27 kg/m2 [facility] oximetry 2022-02-04 14:30:00 99 % [facility] respiratory rate 2022-02-04 14:30:00 18 /min Comm on [facility] blood pressure 2022-02-04 14:30:00 147 mm[Hg] [facility] - systolic [facility] blood pressure 2022-02-04 14:30:00 71 mm[Hg] Common [facility] - diastolic [facility] height 2021-12-02 17:45:00 70 [in_i] Common [facility] weight 2021-12-02 17:45:00 207.4 [lb_av] [facility] - [facility] temperature 2021-12-02 17:45:00 98.4 [degF] Common [facility] bmi 2021-12-02 17:45:00 29.76 kg/m2 [facility] oximetry 2021-12-02 17:45:00 98 % [facility] respiratory rate 2021-12-02 17:45:00 18 /min Comm on [facility] blood pressure 2021-12-02 17:45:00 135 mm[Hg] Common [facility] - systolic [facility] blood pressure 2021-12-02 17:45:00 65 mm[Hg] Common [facility] - diastolic [facility] Systolic (mm Hg) 2022-04-21 16:40:00 John rial [place] Diastolic (mm Hg) 2022-04-21 16:40:00 [facility] Heart Rate 2022-04-21 16:40:00 [facility] Height 2022-04-21 16:40:00 5 [ft_i] [facility] Weight 2022-04-21 16:40:00 [facility] BMI Calculated 2022-04-21 16:40:00 [facility] Systolic (mm Hg) 2022-01-21 20:12:00 John rial [facility] Diastolic (mm Hg) 2022-01-21 20:12:00 [facility] [place] Heart Rate 2022-01-21 20:12:00 [facility] [place] Systolic (mm Hg) 2021-10-21 14:44:00 John rial [facility] Diastolic (mm Hg) 2021-10-21 14:44:00 [facility] [place] Heart Rate 2021-10-21 14:44:00 [facility] Respitory Rate 2021-10-21 14:44:00 [facility] [place] Height 2021-10-21 14:44:00 170.18 cm [facility] Weight 2021-10-21 14:44:00 [facility] BMI Calculated 2021-10-21 14:44:00 [facility] Systolic (mm Hg) 2021-07-23 15:00:00 John rial [facility] Diastolic (mm Hg) 2021-07-23 15:00:00 [facility] [place] Heart Rate 2021-07-23 15:00:00 [facility] Respitory Rate 2021-07-23 15:00:00 [facility] Height 2021-07-23 15:00:00 170.18 cm [facility] Weight 2021-07-23 15:00:00 [facility] BMI Calculated 2021-07-23 15:00:00 [facility] Weight 2021-06-05 14:28:00 [facility] [place] BMI Calculated 2021-06-05 14:28:00 [facility] [place] Systolic (mm Hg) 2021-06-05 14:28:00 John rial [facility] Diastolic (mm Hg) 2021-06-05 14:28:00 [facility] Heart Rate 2021-06-05 14:28:00 [facility] Respitory Rate 2021-06-05 14:28:00 [facility] Height 2021-06-05 14:28:00 170.18 cm [facility] Systolic (mm Hg) 2021-04-24 16:11:00 John rial [facility] Diastolic (mm Hg) 2021-04-24 16:11:00 [facility] Heart Rate 2021-04-24 16:11:00 [facility] Respitory Rate 2021-04-24 16:11:00 [facility] Height 2021-04-24 16:11:00 170.18 cm [facility] Weight 2021-04-24 16:11:00 [facility] BMI Calculated 2021-04-24 16:11:00 [facility] Systolic (mm Hg) 2021-03-12 16:17:00 John rial [facility] Diastolic (mm Hg) 2021-03-12 16:17:00 [facility] Heart Rate 2021-03-12 16:17:00 [facility] Respitory Rate 2021-03-12 16:17:00 [facility] Height 2021-03-12 16:17:00 170.18 cm [facility] Weight 2021-03-12 16:17:00 [facility] BMI Calculated 2021-03-12 16:17:00 [facility] Systolic (mm Hg) 2021-01-29 17:37:00 John rial Pritesh Diastolic (mm Hg) 2021-01-29 17:37:00 [facility] Heart Rate 2021-01-29 17:37:00 [facility] Respitory Rate 2021-01-29 17:37:00 [facility] Height 2021-01-29 17:37:00 172.72 cm [facility] Weight 2021-01-29 17:37:00 [facility] BMI Calculated 2021-01-29 17:37:00 [facility] Systolic (mm Hg) 2020-12-30 15:32:00 John rial Pritesh Diastolic (mm Hg) 2020-12-30 15:32:00 [facility] Heart Rate 2020-12-30 15:32:00 [facility] Respitory Rate 2020-12-30 15:32:00 [facility] Height 2020-12-30 15:32:00 170.18 cm [facility] Weight 2020-12-30 15:32:00 [facility] BMI Calculated 2020-12-30 15:32:00 [facility] Systolic (mm Hg) 2020-10-30 18:07:00 [facility] Diastolic (mm Hg) 2020-10-30 18:07:00 [facility] Heart Rate 2020-10-30 18:07:00 [facility] Respitory Rate 2020-10-30 18:07:00 [facility] Height 2020-10-30 18:07:00 170.18 cm [facility] Weight 2020-10-30 18:07:00 [facility] BMI Calculated 2020-10-30 18:07:00 [facility] Systolic (mm Hg) 2020-07-10 15:47:00 [facility] Diastolic (mm Hg) 2020-07-10 15:47:00 [facility] Heart Rate 2020-07-10 15:47:00 [facility] Respitory Rate 2020-07-10 15:47:00 [facility] Weight 2020-07-10 15:47:00 [facility] Systolic (mm Hg) 2020-01-11 16:41:00 [facility] Diastolic (mm Hg) 2020-01-11 16:41:00 [facility] Heart Rate 2020-01-11 16:41:00 [facility] Respitory Rate 2020-01-11 16:41:00 [facility] Height 2020-01-11 16:41:00 172.72 cm [facility] Weight 2020-01-11 16:41:00 [facility] BMI Calculated 2020-01-11 16:41:00 [facility] Systolic (mm Hg) 2019-10-11 15:47:00 John rial [facility]rit[facility] Diastolic (mm Hg) 2019-10-11 15:47:00 [facility] Heart Rate 2019-10-11 15:47:00 [facility] Respitory Rate 2019-10-11 15:47:00 [facility] Height 2019-10-11 15:47:00 172.72 cm [facility] Weight 2019-10-11 15:47:00 [facility] BMI Calculated 2019-10-11 15:47:00 [facility] Systolic (mm Hg) 2019-07-11 15:38:00 John rial [facility]rit[facility] Diastolic (mm Hg) 2019-07-11 15:38:00 [facility] Height 2019-07-11 15:38:00 177.8 cm [facility] Weight 2019-07-11 15:38:00 [facility] BMI Calculated 2019-07-11 15:38:00 [facility] Systolic (mm Hg) 2019-04-12 17:46:00 John rial Pritesh Diastolic (mm Hg) 2019-04-12 17:46:00 [facility] Heart Rate 2019-04-12 17:46:00 [facility] Respitory Rate 2019-04-12 17:46:00 [facility] Height 2019-04-12 17:46:00 177.8 cm [facility] Weight 2019-04-12 17:46:00 [facility] BMI Calculated 2019-04-12 17:46:00 [facility] Systolic (mm Hg) 2018-11-10 20:59:00 John rial [facility]rit[facility] Diastolic (mm Hg) 2018-11-10 20:59:00 [facility] Heart Rate 2018-11-10 20:59:00 [facility] Respitory Rate 2018-11-10 20:59:00 [facility] Height 2018-11-10 20:59:00 177.8 cm [facility] Weight 2018-11-10 20:59:00 [facility] BMI Calculated 2018-11-10 20:59:00 [facility] Weight 2018-09-22 20:53:00 [facility] BMI Calculated 2018-09-22 20:53:00 [facility] Height 2018-09-22 20:53:00 170.18 cm [facility] Heart Rate 2018-09-22 20:53:00 [facility] Respitory Rate 2018-09-22 20:53:00 [facility] Systolic (mm Hg) 2018-09-22 20:53:00 [facility] Diastolic (mm Hg) 2018-09-22 20:53:00 [facility] BMI Calculated 2018-08-18 14:07:00 [facility] Weight 2018-08-18 14:07:00 [facility] Height 2018-08-18 14:07:00 177.8 cm [facility] Respitory Rate 2018-08-18 14:07:00 [facility] Heart Rate 2018-08-18 14:07:00 [facility] Systolic (mm Hg) 2018-08-18 14:07:00 John rial [facility]rit[facility] Diastolic (mm Hg) 2018-08-18 14:07:00 [facility] Height 2018-07-08 00:59:00 177.8 cm [facility] BMI Calculated 2018-07-08 00:59:00 [facility] Weight 2018-07-08 00:59:00 [facility] Respitory Rate 2018-07-08 00:59:00 [facility] Heart Rate 2018-07-08 00:59:00 [facility] Systolic (mm Hg) 2018-07-08 00:59:00 [facility] Diastolic (mm Hg) 2018-07-08 00:59:00 [facility] Procedures Procedure Date / Time Performed Performing Clinician Day álvarez [id number] 2022-08-20 00:00:00 CHAAB.01 [facility] [id number] 2022-08-16 00:00:00 CHAAB.01 [facility] [id number] 2022-08-16 00:00:00 CHAAB.01 [facility] [id number] 2022-08-16 00:00:00 CHAAB.01 [facility] [id number] 2022-08-03 00:00:00 RASSA [facility] [id number] 2022-08-03 00:00:00 RASSA [facility] [id number] 2022-08-03 00:00:00 RASSA [facility] [id number] 2022-08-02 00:00:00 CHAAB.01 [facility] [id number] 2022-08-02 00:00:00 CHAAB.01 [facility] [id number] 2022-08-02 00:00:00 CHAAB.01 [facility] [id number] 2022-08-02 00:00:00 CHAAB.01 [facility] [id number] 2022-08-02 00:00:00 CHAAB.01 [facility] [id number] 2022-08-02 00:00:00 CHAAB.01 [facility] [id number] 2022-08-02 00:00:00 DWEMA [facility] [id number] 2022-07-27 00:00:00 RASSA [facility] [id number] 2022-07-27 00:00:00 RASSA [facility] [id number] 2022-07-27 00:00:00 RASSA [facility] Cervical discectomy [facility] Plan of Care Planned Activity Planned Date Details Comments Source Instructions [facility] Encounters Start End Encounter Admission Attending Care Care Encounter Source Date/Time Date/Time Type Type Clinicians Facility Department ID 2022-03-25 Outpatient Nicho [facility] [id number] Common 07:27:00 Albino 72536 [facility] 2021-12-02 Outpatient Nicho [facility] [id number] Common 17:04:01 Albino 23866 [facility] 2022-08-26 2022-08-26 Ambulatory MHIE MNA [id number] Memoria 15:30:00 15:30:00 Pre-Reg Neurology 26 l Sandra Jonas 2022-08-26 2022-08-26 Ambulatory MHIE MNA [id number] Memoria 15:30:00 15:30:00 Pre-Reg Neurology 26 l Sandra Aguileraann 2022-08-26 2022-08-26 Outpatient MHIE MHIE [id number] Memoria 10:30:00 10:30:00 26 kwaku Jonas 2022-08-26 2022-08-26 Outpatient FRED Petit MHMISCHER [id number] 10:30:00 10:30:00 Mario Frankie Fisher 2022-08-16 2022-08-25 Inpatient SCOTT Mccurdy, HCACL INTE.02 [id number] 12:01:00 18:28:00 Soraya 65 [facility] 2022-07-30 2022-08-09 Inpatient ROGER Loaiza, HCACL INTE.02 [id number] 08:27:00 16:50:00 Anthony 82 [facility] 2022-07-23 2022-07-23 Outpatient ROGER Loaiza, HCACL 3DAY [id number] 08:00:00 09:00:00 Anthony 41 [facility] 2022-04-21 2022-04-22 Outpatient MHIE MNA [id number] Memoria 16:30:00 05:59:59 Neurology 25 kwaku Aguileraann 2022-04-21 2022-04-22 Outpatient MHIE MNA [id number] Memoria 16:30:00 05:59:59 Neurology 25 l Sandra Pritesh 2022-04-21 2022-04-21 Outpatient FRED Petit MHMISCHER [id number] 10:30:00 23:59:59 Mario Sherly Fisher 2022-04-21 2022-04-21 Ambulatory MHIE MNA [id number] Memoria 20:15:00 20:15:00 Pre-Reg Neurology 24 l Sandra Aguileraann 2022-04-21 2022-04-21 Ambulatory MHIE MNA [id number] Memoria 20:15:00 20:15:00 Pre-Reg Neurology 24 kwaku Jonas 2022-04-21 2022-04-21 Outpatient MHIE MHIE [id number] Memoria 14:15:00 14:15:00 24 kwaku Jonas 2022-04-21 2022-04-21 Outpatient ESME PetitSCHER MHMISCHER [id number] 14:15:00 14:15:00 Mario 24 Phillip 2022-04-21 2022-04-21 Outpatient MHIE MHIE [id number] Memoria 10:30:00 10:30:00 25 kwaku Jonas 2022-03-10 2022-03-10 OFFICE STLMLC STLMLC [id number] Co mmon 00:00:00 00:00:00 VISIT [facility] PT - [facility] 2022-03-03 2022-03-03 (TEL) STLMLC STLMLC [id number] Co mmon 00:00:00 00:00:00 [facility] 2022-02-04 2022-02-04 OFFICE STLMLC STLMLC [id number] Co mmon 00:00:00 00:00:00 VISIT [facility] EST[facility] PT - [facility] 5 [facility] 2022-01-21 2022-01-22 Outpatient MHIE MNA [id number] Memoria 20:00:00 05:59:59 Neurology 23 l Sandra Jonas 2022-01-21 2022-01-22 Outpatient MHIE MNA [id number] Memoria 20:00:00 05:59:59 Neurology 23 l Sandra Jonas 2022-01-21 2022-01-21 Outpatient SILVIA PetitNDSCHER MHMISCHER [id number] 14:00:00 23:59:59 Mario 23 Phillip 2022-01-21 2022-01-21 Outpatient MHIE MHIE [id number] Memoria 14:00:00 14:00:00 23 kwaku Jonas 2021-12-02 2021-12-02 OFFICE STLMLC STLMLC [id number] Co mmon 00:00:00 00:00:00 VISIT [facility] EST[facility] PT - [facility]I [facility] 4 [facility] 2021-10-21 2021-10-22 Outpatient nullFlavo MNA [id number] Memoria 14:45:00 04:59:59 r Neurology 22 l Sandra Aguileraann 2021-10-21 2021-10-22 Outpatient nullFlavo MNA [id number] Memoria 14:45:00 04:59:59 r Neurology 22 l Chichester Pritesh 2021-10-21 2021-10-21 Outpatient FRED Petit PRETTY [id number] 09:45:00 23:59:59 Mario 22 Phillip 2021-10-21 2021-10-21 Outpatient MAGDA MAN [id number] Memoria 09:45:00 09:45:00 22 l Pritesh 2021-10-13 2021-10-13 Outpatient FOG_[place] AOSM AOSM [id number] Brenna 00:00:00 00:00:00 _Agata [id number] [facility] 2021-10-13 2021-10-13 Outpatient [place], AOSM AOSM [id number] 00:00:00 00:00:00 Casey Phillips [id number] 2021-10-13 2021-10-13 Casey A AOSM [place] - Ortho [id number] Brenna 00:00:00 00:00:00 Aleah Barrow MD: [id number] FOG_Ofc dic [facility] [place] [id number] , Ph. [id number] 2021-07-23 2021-07-24 Outpatient nullFlavo MNA [id number] Memoria 14:45:00 04:59:59 r Neurology 21 l Chichester Pritesh 2021-07-23 2021-07-24 Outpatient nullFlavo MNA [id number] Memoria 14:45:00 04:59:59 r Neurology 21 l Sandra Jonas 2021-07-23 2021-07-23 Outpatient FRED Petit [id number] 09:45:00 23:59:59 Mario 21 Phillip 2021-07-23 2021-07-23 Outpatient MHIE IE [id number] Memoria 09:45:00 09:45:00 21 kwaku Jonas 2021-07-18 2021-07-18 Outpatient FOG_[place] AOSM AOSM [id number] Brenna 00:00:00 00:00:00 _Manfred_ [id number] Orth ope dic [facility]in e 2021-06-05 2021-06-06 Outpatient nullFlavo MNA [id number] Memoria 14:30:00 04:59:59 r Neurology 20 l Sandra Jonas 2021-06-05 2021-06-06 Outpatient nullFlavo MNA [id number] Memoria 14:30:00 04:59:59 r Neurology 20 l Sandra Jonas 2021-06-05 2021-06-05 [address] [id number] 09:30:00 23:59:59 Mario 20 Phillip 2021-06-05 2021-06-05 Outpatient MHIE IE [id number] Memoria 09:30:00 09:30:00 20 kwaku Jonas 2021-04-24 2021-04-25 Outpatient nullFlavo MNA [id number] Memoria 16:15:00 05:59:59 r Neurology 19 l Sandra Jonas 2021-04-24 2021-04-25 Outpatient nullFlavo MNA [id number] Memoria 16:15:00 05:59:59 r Neurology 19 l Sandra Aguileraann 2021-04-24 2021-04-24 Outpatient FRED Petit MISCHER [id number] 10:15:00 23:59:59 Mario 19 Phillip 2021-04-24 2021-04-24 Outpatient MHIE MHIE [id number] Memoria 10:15:00 10:15:00 19 kwaku Jonas 2021-03-12 2021-03-13 Outpatient nullFlavo MNA [id number] Memoria 16:15:00 05:59:59 r Neurology 18 l Sandra Aguileraann 2021-03-12 2021-03-13 Outpatient nullFlavo MNA [id number] Memoria 16:15:00 05:59:59 r Neurology 18 kwaku Jonas 2021-03-12 2021-03-[address] [facility] [id number] 10:15:00 23:59:59 Mario 18 Phillip 2021-03-12 2021-03-12 Outpatient MHIE IE [id number] Memoria 10:15:00 10:15:00 18 kwaku Jonas 2021-01-29 2021-01-30 Outpatient nullFlavo MNA [id number] Memoria 17:30:00 05:59:59 r Neurology 17 l Sandra Jonas 2021-01-29 2021-01-30 Outpatient nullFlavo MNA [id number] Memoria 17:30:00 05:59:59 r Neurology 17 l Sandra Jonas 2021-01-29 2021-01-[address] [facility] [id number] 11:30:00 23:59:59 Mario 17 Phillip 2021-01-29 2021-01-29 Outpatient MHIE IE [id number] Memoria 11:30:00 11:30:00 17 kwaku Jonas 2021-01-12 2021-01-12 Ambulatory nullFlavo MNA [id number] Memoria 15:45:00 15:45:00 Pre-Reg r Neurology 15 l Sandra Jonas 2021-01-12 2021-01-12 Ambulatory nullFlavo MNA [id number] Memoria 15:45:00 15:45:00 Pre-Reg r Neurology 15 l Sandra Jonas 2021-01-12 2021-01-12 Outpatient MHIE IE [id number] Memoria 09:45:00 09:45:00 15 kwaku Jonas 2021-01-12 2021-01-[address] [facility] [id number] 09:45:00 09:45:00 Mario 15 Phillip 2020-12-30 2020-12-31 Outpatient nullFlavo MNA [id number] Memoria 15:30:00 05:59:59 r Neurology 16 l Sandra Jonas 2020-12-30 2020-12-31 Outpatient nullFlavo MNA [id number] Memoria 15:30:00 05:59:59 r Neurology 16 l Sandra Jonas 2020-12-30 2020-12-30 Outpatient ES[address] [facility]itSCHER [facility] [id number] 09:30:00 23:59:59 Mario 16 Phillip 2020-12-30 2020-12-30 Outpatient MHIE MHIE [id number] Memoria 09:30:00 09:30:00 16 kwaku Jonas 2020-11-11 2020-11-11 Ambulatory nullFlavo MNA [id number] Memoria 15:00:00 15:00:00 Pre-Reg r Neurology 13 l Sandra Jonas 2020-11-11 2020-11-11 Ambulatory nullFlavo MNA [id number] Memoria 15:00:00 15:00:00 Pre-Reg r Neurology 13 l Sandra Jonas 2020-11-11 2020-11-11 Outpatient MHIE MHIE [id number] Memoria 10:00:00 10:00:00 13 kwaku Jonas 2020-11-11 2020-11-[address] [facility] [id number] 10:00:00 10:00:00 Mario 13 Phillip 2020-10-30 2020-10-31 Outpatient nullFlavo MNA [id number] Memoria 18:00:00 04:59:59 r Neurology 14 kwaku Jonas 2020-10-30 2020-10-31 Outpatient nullFlavo MNA [id number] Memoria 18:00:00 04:59:59 r Neurology 14 kwaku Jonas 2020-10-30 2020-10-30 Outpatient ESME PetitSCHER [facility] [id number] 13:00:00 23:59:59 Mario 14 Phillip 2020-10-30 2020-10-30 Outpatient MHIE MHIE [id number] Memoria 13:00:00 13:00:00 14 kwaku Jonas 2020-07-10 2020-07-11 Outpatient nullFlavo MNA [id number] Memoria 15:30:00 04:59:59 r Neurology 12 l Sandra Jonas 2020-07-10 2020-07-11 Outpatient nullFlavo MNA [id number] Memoria 15:30:00 04:59:59 r Neurology 12 l Chichester Pritesh 2020-07-10 2020-07-[address] [facility] [id number] 10:30:00 23:59:59 Mario 12 Phillip 2020-07-10 2020-07-10 Outpatient MHIE MHIE [id number] Memoria 10:30:00 10:30:00 12 kwaku Jonas 2020-01-11 2020-01-12 Outpatient nullFlavo MNA [id number] Memoria 16:30:00 05:59:59 r Neurology 11 l Sandra Jonas 2020-01-11 2020-01-12 Outpatient nullFlavo MNA [id number] Memoria 16:30:00 05:59:59 r Neurology 11 l Sandra Jonas 2020-01-11 2020-01-[address] [facility] [id number] 10:30:00 23:59:59 Mario 11 Phillip 2020-01-11 2020-01-11 Outpatient MHIE IE [id number] Memoria 10:30:00 10:30:00 11 kwaku Jonas 2019-10-11 2019-10-12 Outpatient nullFlavo MNA [id number] Memoria 15:45:00 04:59:59 r Neurology 10 l Sandra Jonas 2019-10-11 2019-10-12 Outpatient nullFlavo MNA [id number] Memoria 15:45:00 04:59:59 r Neurology 10 l Sandra Jonas 2019-10-11 2019-10-[address] [facility] [id number] 10:45:00 23:59:59 Mario 10 Phillip 2019-10-11 2019-10-11 Ambulatory nullFlavo MNA [id number] Memoria 15:45:00 15:45:00 Pre-Reg r Neurology 09 l Sandra Jonas 2019-10-11 2019-10-11 Ambulatory nullFlavo MNA [id number] Memoria 15:45:00 15:45:00 Pre-Reg r Neurology 09 l Chichesteralysha Jonas 2019-10-11 2019-10-11 Outpatient MHIE IE [id number] Memoria 10:45:00 10:45:00 09 kwaku [facility] 2019-10-11 2019-10-11 Outpatient MHIE MHIE [id number] Memoria 10:45:00 10:45:00 10 l [facility] 2019-10-11 2019-10-11 Outpatient SILVIA PetitNDSCHER MISCHER [id number] 10:45:00 10:45:00 Mario 09 Phillip 2019-07-11 2019-07-12 Outpatient nullFlavo MNA [id number] Memoria 15:30:00 04:59:59 r Neurology 08 l Sandra [facility] 2019-07-11 2019-07-12 Outpatient nullFlavo MNA [id number] Memoria 15:30:00 04:59:59 r Neurology 08 l Sandra [facility] 2019-07-11 2019-07-[address] [facility] [id number] 10:30:00 23:59:59 Mario 08 [facility] 2019-07-11 2019-07-11 Outpatient MHIE IE [id number] Memoria 10:30:00 10:30:00 08 kwaku [facility] 2019-04-12 2019-04-13 Outpatient nullFlavo MNA [id number] Memoria 17:45:00 05:59:59 r Neurology 07 l Sandra [facility] 2019-04-12 2019-04-13 Outpatient nullFlavo MNA [id number] Memoria 17:45:00 05:59:59 r Neurology 07 l Chichester [facility] 2019-04-12 2019-04-12 Outpatient SILVIA PetitNDSCHER MISCHER [id number] 11:45:00 23:59:59 Mario 07 [facility] 2019-04-12 2019-04-12 Ambulatory nullFlavo MNA [id number] Memoria 16:45:00 16:45:00 Pre-Reg r Neurology 06 l Chichester [facility] 2019-04-12 2019-04-12 Ambulatory nullFlavo MNA [id number] Memoria 16:45:00 16:45:00 Pre-Reg r Neurology 06 l Chichester [facility] 2019-04-12 2019-04-12 Outpatient MHIE IE [id number] Memoria 11:45:00 11:45:00 07 l [place] 2019-04-12 2019-04-12 Outpatient SILVIA PetitNDSCHER MISCHER [id number] 10:45:00 10:45:00 Mario 06 [facility] 2019-03-07 2019-03-07 Outpatient MHIE MHIE [id number] Memoria 11:00:00 11:00:00 06 kwaku Jonas 2018-12-22 2018-12-22 Ambulatory nullFlavo MNA [id number] Memoria 20:45:00 20:45:00 Pre-Reg r Neurology 05 kwaku Aguileraann 2018-12-22 2018-12-22 Ambulatory nullFlavo MNA [id number] Memoria 20:45:00 20:45:00 Pre-Reg r Neurology 05 kwaku Flores [facility] 2018-12-22 2018-12-22 Outpatient MHIE MHIE [id number] Memoria 15:45:00 15:45:00 05 kwaku Pritehs 2018-12-22 2018-12-[address] [facility] [id number] 15:45:00 15:45:00 Mario 05 Phillip 2018-11-10 2018-11-11 Outpatient nullFlavo MNA [id number] Memoria 21:00:00 04:59:59 r Neurology 04 kwaku Flores [place] 2018-11-10 2018-11-11 Outpatient nullFlavo MNA [id number] Memoria 21:00:00 04:59:59 r Neurology 04 kwaku Chichester [place] 2018-11-10 2018-11-10 Outpatient SILVIA PetitNDSCHER MISCHER [id number] 16:00:00 23:59:59 Mario Brennan Fisher 2018-11-10 2018-11-10 Outpatient MHIE MHIE [id number] Memoria 16:00:00 16:00:00 Brennan ames Pritesh 2018-11-03 2018-11-03 Ambulatory nullFlavo MNA [id number] Memoria 20:00:00 20:00:00 Pre-Reg r Neurology 03 kwaku Chichester Pritesh 2018-11-03 2018-11-03 Ambulatory nullFlavo MNA [id number] Memoria 20:00:00 20:00:00 Pre-Reg r Neurology 03 kwaku Chichester Pritesh 2018-11-03 2018-11-03 Outpatient MHIE MHIE [id number] Memoria 15:00:00 15:00:00 03 kwaku Pritesh 2018-11-03 2018-11-[address] [facility] [id number] 15:00:00 15:00:00 Mario 03 Phillip 2018-09-22 2018-09-23 Outpatient nullFlavo MNA [id number] Memoria 20:45:00 04:59:59 r Neurology 02 l Sandra Jonas 2018-09-22 2018-09-23 Outpatient nullFlavo MNA [id number] Memoria 20:45:00 04:59:59 r Neurology 02 l Sandra Aguileraann 2018-09-22 2018-09-22 Outpatient FRED Petit MISCHER [id number] 15:45:00 23:59:59 Mario 02 Phillip 2018-09-22 2018-09-22 Outpatient MHIE MHIE [id number] Memoria 15:45:00 15:45:00 02 kwaku Pritesh 2018-08-18 2018-08-19 Outpatient nullFlavo MNA [id number] Memoria 14:00:00 04:59:59 r Neurology 01 l Chichesteralysha Aguileraann 2018-08-18 2018-08-19 Outpatient nullFlavo MNA [id number] Memoria 14:00:00 04:59:59 r Neurology 01 l Chichesteralysha Aguileraann 2018-08-18 2018-08-18 Outpatient ESME PetitSCHSONALI MISCHER [id number] 09:00:00 23:59:59 Mario Phillip 2018-08-18 2018-08-18 Outpatient MHIE MHIE [id number] Memoria 09:00:00 09:00:00 01 kwaku Pritesh 2018-07-07 2018-07-08 Outpatient nullFlavo MNA [id number] Memoria 14:00:00 04:59:59 r Neurology 00 l Chichester Prescott 2018-07-07 2018-07-08 Outpatient nullFlavo MNA [id number] Memoria 14:00:00 04:59:59 r Neurology 00 l Chichester Pritesh 2018-07-07 2018-07-07 Outpatient ESME PetitSCHSONALI MISCHER [id number] 09:00:00 23:59:59 Mario 00 Phillip 2018-07-07 2018-07-07 Outpatient MHIE MHIE [id number] Memoria 09:00:00 09:00:00 kwaku Jonas Results Test Description Test Time [...] code = CA) 8.6 mg/dL 8.0-10.5 N [id number] 05:00:00 Test Item Value Reference Range Interpretation Comments MAGNESIUM (test code = MAG) 2.23 mg/dL 1.80-2.40 N CBC W/AUTO [id number] 04:54:00 Test Item Value Reference Range Interpretation [...] (test code NO = MDIFF) BASIC METABOLIC [id number] 08:19:00 Test Item Value Reference Range Interpretation [...] the recommended for deborah for GFRby the [facility] on for Adults.The GFR will not calculate if th e sex is unknown or if thepatient's ag e is <18 years. CREATININE (test 0.9 mg/dL 0.6-1.3 N code = CREAT) CALCIUM (test code = 9.0 mg/dL 8.0-10.5 N CA) [id number] 08:19:00 Test Item Value Reference Range Interpretation Comments MAGNESIUM (test code = MAG) 1.98 mg/dL 1.80-2.40 N CBC W/AUTO [id number] 05:00:00 Test Item Value Reference Range Interpretation [...] NO = MDIFF) - XR CHEST 1 [id number] 00:00:00 [facility] DAL[facility] : 1955 Sex: M FAX: Ludin John [phone] [place]: St: ADM FAX: Albino Castillo MD [phone] FAX: Rosalind Lyles [facility] [phone] Name: MARY DALY [facility] Aleah Powell : 1955 Age/S: 66/M [address] [place] [address] Unit#: [id number] Loc: [id number] [place] [address] Phys: Rosalind Mendez Physic Acct: [id number] Dis Date: Status: ADM IN PHONE #: [phone] Exam Date: 08/24/2022 0651 FAX #: [phone] Reason: S/P CABG, R/O EFFUSION EXAMS: CPT CODE: [id number] XR CHEST 1 V 54535 PROCEDURE INFORMATION: Exam: XR Chest Ex am date and time: 08/24/2022 5:54 AM Age: 66 years old Clinical indication: Other: S/P cabg, R/O effusion TECHNIQUE: Imaging protocol: Radiologic exam of the chest. Views: 1 view. COMPARISON: CR XR [id number] 08/22/2022 7:21 AM FINDINGS: Tubes, catheters and devices: Right arm PICC is demonstrated. The catheter tip overlies the expected SVC region. Plate and screws overlie the midline lower cervical spine.Surgical clips overlie the mediastinum. Lungs: Mild bilateral perihilar and basilar interstitial lung opacities, suggesting pulmonary edema versus infiltrates. The peripheral lungs are otherwise clear.No consolidation. Lung volumes are decreased. Pleural spaces: No pleural effusion. No pneumothorax. Heart/Mediastinum: Coronary artery calcifications identified. Cardiac silhouette appears pciq-vj-aoxkwqexlg enlarged. Bones/joints: Sternotomy wires, hardware is demonstrated. Generalized bony degenerative changes. IMPRESSION: 1. Htar-yr-yscgppafao enlarged cardiac silhouette. 2. Mild interstitial pulmonary edema versus infiltrates. at 0734 Reported and signed by: Oracio Stoner M.D. CC: Ludin Mccurdy MD; Albino Torre MD; Rosalind eMndez Technologist: RT Lenore(Katherine) Trnscrd Date/Time/By: 08/24/2022 (0734) : By: [email or web address] Orig Print D/T: S: 08/24/2022 (0734) PAGE 1 Signed ReportCBC W/AUTO [id number] 06:20:00 Test Item Value Reference Range Interpretation [...] (test code NO = MDIFF) BASIC METABOLIC [id number] 05:56:00 Test Item Value Reference Range Interpretation [...] code = 8.7 mg/dL 8.0-10.5 N CA) [id number] 05:56:00 Test Item Value Reference Range Interpretation Comments MAGNESIUM (test code = MAG) 1.93 mg/dL 1.80-2.40 N CBC W/AUTO [id number] 04:28:00 Test Item Value Reference Range Interpretation [...] (test code NO = MDIFF) BASIC METABOLIC [id number] 04:12:00 Test Item Value Reference Range Interpretation [...] code = 9.1 mg/dL 8.0-10.5 N CA) [id number] 04:12:00 Test Item Value Reference Range Interpretation Comments MAGNESIUM (test code = MAG) 1.98 mg/dL 1.80-2.40 N - XR CHEST 1 [id number] 00:00:00 [facility] : 1955 Sex: M FAX: Ludin John [phone] [place]: St: ADM FAX: Albino Castillo MD [phone] Name: [facility]ARY DLAY [facility] [place] : 1955 Age/S: 66/M [address] [place], [place] [address]vd Unit #: [id number] Loc: G.4123 [place] [address] Phys: Ludin Mccurdy MD Acct: [id number] Dis Date: Status: ADM IN PHONE #: [phone] Date: 08/22/2022802 FAX #: [phone] Reason: Cardiac Surgery Post Op EXAMS: CPT CODE: [id number] XR CHEST 1 V 50808 PROCEDURE INFORMATION: Exam: XR Chest Exam date and time: 08/22/2022 7:21 AM Age: 66 years old Clinical indication: Other: Cardiac surgery post op TECHNIQUE: Imaging protocol: Radiologic exam of the chest. Views: 1 view. COMPARISON: CR XR CHEST 1V 08/21/2022 7:19 AM FINDINGS: Tubes, catheters and devices: Stable right PICC line. [...] code = 8.8 mg/dL 8.0-10.5 N CA) [id number] 04:57:00 Test Item Value Reference Range Interpretation Comments MAGNESIUM (test code = MAG) 2.07 mg/dL 1.80-2.40 N CBC W/AUTO [id number] 04:31:00 Test Item Value Reference Range Interpretation [...] NO = MDIFF) - XR CHEST 1 [id number] 00:00:00 [facility] : 1955 Sex: M FAX: Ludin John [phone] [place]: St: ADM FAX: Albino Castillo MD [phone] Name: MARY DALY [facility] : 1955 Age/S: 66/M [address] [place] [address] Unit #: [id number] Loc: G.3353 [place] [address] Phys: Ludin Mccurdy MD Acct: [id number] Dis Date: Status: ADM IN PHONE #: [phone] Exam Date: 08/21/2022814 FAX #: [phone] Reason: Cardiac Surgery Post Op EXAMS: CPT CODE: [id number] XR CHEST 1 V 22949 PROCEDURE INFORMATION: Exam: XR Chest Exam date and time: 08/21/2022 7:19 AM Age: 66 years old Clinical indication: Other: Cardiac surgery post op TECHNIQUE: Imaging protocol: Radiologic exam of the chest. Views: 1 view. COMPARISON: CR XR CHEST 1V 08/20/2022 6:01 AM FINDINGS: Lungs: Normal lung volumes. No consolidation. A right-sided PICC line has been placed with tip in the region of the mid SVC. Pleural spaces: Unremarkable. No pleural effusion. No pneumothorax. Heart/Mediastinum: The cardiac silhouette is enlarged. Previous midline sternotomy. Bones/joints: Unremarkable. IMPRESSION: No acute cardiopulmonary findings. Electronically Signed by Remedios Santiago on 08/21/2022 at 0835 Reported and signed by: Krishna Santiago M.D. CC: Ludin Mccurdy MD; Albino Torre MD Technologist: Issa Bey RT(R); Muriel Jacobs RT(R) Trnscrd Date/Time/By: 08/21/2022 (0835) : By: [email or web address] Orig Print D/T: S: 08/21/2022 (19) PAGE 1 Signed ReportCBC W/AUTO [id number] 07:50:00 Test Item Value Reference Range Interpretation [...] (test code NO = MDIFF) BASIC METABOLIC [id number] 07:41:00 Test Item Value Reference Range Interpretation [...] the recommended for deborah for GFRby the [facility] Kidney Foundati on for Adults.The GFR will not calculate if th e sex is unknown or if thepatient's ag e is <18 years. CREATININE (test 0.7 mg/dL 0.6-1.3 N code = CREAT) CALCIUM (test code = 9.3 mg/dL 8.0-10.5 N CA) [id number] 07:41:00 Test Item Value Reference Range Interpretation Comments MAGNESIUM (test code = MAG) 1.90 mg/dL 1.80-2.40 N - XR CHEST 1 [id number] 00:00:00 [facility] : 1955 Sex: M FAX: Ludin John [phone] [place]: St: [facility] FAX: Albino Castillo MD [phone] --------- Name: MARY DALY [facility] : 1955 Age/S: 66/M [address] [place] [address] Unit #: [id number] Loc: G.3353 [place] [address] Phys: Ludin Mccurdy MD Acct: [id number] Dis Date: Status: ADM IN PHONE #: [phone] Date: 08/20/2022 06 FAX #: [phone] Reason: Cardiac Surgery Post Op EXAMS: CPT CODE: [id number] XR CHEST 1 V 26820 PROCEDURE INFORMATION: Exam: XR Chest Exam date and time: 08/20/2022 6:01 AMAge: 66 years old Clinical indication: Other: [...] 08/20/2022 (0758) PAGE 1 Signed ReportBASIC METABOLIC [id number] 05:17:00 Test Item Value Reference Range Interpretation [...] code = 8.7 mg/dL 8.0-10.5 N CA) [id number] 05:17:00 Test Item Value Reference Range Interpretation Comments MAGNESIUM (test code = MAG) 1.92 mg/dL 1.80-2.40 N CBC W/AUTO [id number] 05:03:00 Test Item Value Reference Range Interpretation [...] NO = MDIFF) - XR CHEST 1 [id number] 00:00:00 [facility] : 1955 Sex: M FAX: Ludin John [phone] [place]: St: ADM FAX: Albino Castillo MD [phone] Name: MARY DALY [facility] : 1955 Age/S: 66/M [address] [place] [address] Unit #: [id number] Loc: G.3353 [place] [address] Phys: Ludin Mccurdy MD Acct: [id number] Dis Date: Status: ADM IN PHONE #: [phone] Exam Date: 08/19/2022 08 FAX #: [phone] Reason: Cardiac Surgery Post Op EXAMS: CPT CODE: [id number] XR CHEST 1 V 79508 PROCEDURE INFORMATION: Exam: XR Chest Exam date and time: 08/19/2022 8:21 AM Age: 66 years old Clinical indication: Screening exam; Other screening; Additional info: Cardiac surgery post op TECHNIQUE: Imaging protocol: Radiologic exam of the chest. Views: 1 view. COMPARISON: CR XR CHEST 1V 08/18/2022 5:50 AM FINDINGS: Lungs: [...] Trnscrd Date/Time/By: 08/19/2022 (110) : By: [email or web address] [facility] Print D/T: S: 08/19/2022 (1102) PAGE 1 Signed ReportBASIC METABOLIC [id number] 04:58:00 Test Item Value Reference Range Interpretation [...] Creatinine, pat ient age and sex. GFR v aluesless than 60 mL/min/ 1.73 square meters a re indicative ofCh ronic Kidney Disease. Values less than 15 mL/min/1.73squa re meters indicate Kidney failure. The calculation forGFR is based on the CKD-EPI (2020) calculat ion. This formulais race indifferent and is the recommended for deborah for GFRby the [facility] Kidney Foundati on for Adults.The GFR will not calculate if th e sex is unknown or if thepatient's ag e is <18 years. CREATININE (test 0.8 mg/dL 0.6-1.3 N code = CREAT) CALCIUM (test code = 8.2 mg/dL 8.0-10.5 N CA) [id number] 04:58:00 Test Item Value Reference Range Interpretation Comments MAGNESIUM (test code = MAG) 2.06 mg/dL 1.80-2.40 N CBC W/AUTO [id number] 04:42:00 Test Item Value Reference Range Interpretation [...] NO = MDIFF) - XR CHEST 1 [id number] 00:00:00 [facility] : 1955 Sex: M FAX: Ludin John [phone] [place]: St: ADM FAX: Albino Castillo MD [phone] Name: MARY DALY [facility] : 1955 Age/S: 66/M [address] [place] [address] Unit #: [id number] Loc: G.[address] [place] [address] Phys: Ludin Mccurdy MD Acct: [id number] Dis Date: Status: ADM IN PHONE #: [phone] Date: 08/18/2022 0551 FAX #: [phone] Reason: Cardiac Surgery Post Op EXAMS: CPT CODE: [id number] XR CHEST 1 V 64434 PROCEDURE INFORMATION: Exam: XR Chest Exam date and time: 08/18/2022 5:50 AM Age: 66 years old Clinical indication: Other: Cardiac surgery post op TECHNIQUE: Imaging protocol: Radiologic exam of the chest. Views: 1 view. COMPARISON: CR XR CHEST 1V 08/17/2022 6:04 AM FINDINGS: L ungs: No focal airspace disease. Pleural spaces: No pleural effusion. No pneumothorax. Heart/Mediastinum: Unchanged enlargement of the cardiomediastinal silhouette. Bones/joints: Median sternotomy changes. IMPRESSION: No focal airspace disease. at 0830 Reported and signed by: Colby Sawyer M.D. CC: Ludin Mccurdy MD; Albino Torre MD Technologist: Belem Stark RT(R) Trnscrd Date/Time/By: 08/18/2022 (0830) : By: [email or web address] OrigPrint D/T: S: 08/18/2022 (4206) PAGE 1 Signed ReportBASIC METABOLIC [id number] 07:54:00 Test Item Value Reference Range Interpretation [...] the recommended for deborah for GFRby the [facility] Kidney Foundati on for Adults.The GFR will not calculate if th e sex is unknown or if thepatient's ag e is <18 years. CREATININE (test 0.8 mg/dL 0.6-1.3 N code = CREAT) CALCIUM (test code = 8.5 mg/dL 8.0-10.5 N CA) [id number] 07:54:00 Test Item Value Reference Range Interpretation Comments MAGNESIUM (test code = MAG) 2.32 mg/dL 1.80-2.40 CBC W/AUTO [id number] 06:58:00 Test Item Value Reference Range Interpretation [...] code = MDIFF) - XR CHEST 1 [id number] 00:00:00 [facility] : 1955 Sex: M FAX: Ludin John [phone] [place]: St: ADM FAX: Albino Castillo MD [phone] Name: MARY DALY [facility] : 1955 Age/S: 66/M [address] [place] [address] Unit #: [id number] Loc: G.3311 [place] [address] Phys: Ludin Mccurdy MD Acct: [id number] Dis Date: Status: ADM IN PHONE #: [phone] Exam Date: 08/17/2022658 FAX #: [phone] Reason: Cardiac Surgery Post Op EXAMS: CPT CODE: [id number] XR CHEST 1 V 54935 PROCEDURE INFORMATION: Exam: XR Chest Exam date [...] pneumothorax. Heart/Mediastinum: Stable enlarged heart size. Vasculature: Athero sclerotic calcifications. Bones/joints: Stable. Median sternotomy wires. IMPRESSION: 1. Mildly improved left mid-lower lung field opacities. 2. Right perihilar interstitial opacities may be slightly increased. at 0803 Reported and signed by: Allan Diana M.D. CC: Ludin Mccurdy MD; Albino Torre MD Technologist: RT Lenore(R) Trnscrd Date/Time/By: 08/17/2022 (802) : By: [email or web address] Orig Print D/T: S: 08/17/2022 (802) PAGE [...] (test NO code = MDIFF) CBC W/AUTO [id number] 16:32:00 Test Item Value Reference Range Interpretation [...] (test NO code = MDIFF) BASIC METABOLIC [id number] 14:57:00 Test Item Value Reference Range Interpretation [...] 8.0-10.5 L CA) COMMENTS: On arrivalComment: On [id number] 14:57:00 Test Item Value Reference Range Interpretation Comments MAGNESIUM (test code = MAG) 1.95 mg/dL 1.80-2.40 N COMMENTS: On arrivalComment: On arrivalCBC W/AUTO [id number] 14:37:00 Test Item Value Reference Range Interpretation [...] code = MDIFF) COMMENTS: On arrivalBASIC METABOLIC [id number] 08:24:00 Test Item Value Reference Range Interpretation [...] the recommended for deborah for GFRby the [facility] Kidney Foundati on for Adults.The GFR will not calculate if th e sex is unknown or if thepatient's ag e is <18 years. CREATININE (test 1.0 mg/dL 0.6-1.3 N code = CREAT) CALCIUM (test code = 8.3 mg/dL 8.0-10.5 N CA) [id number] 08:24:00 Test Item Value Reference Range Interpretation Comments MAGNESIUM (test code = MAG) 2.14 mg/dL 1.80-2.40 N CBC W/AUTO [id number] 07:26:00 Test Item Value Reference Range Interpretation [...] NO = MDIFF) - XR CHEST 1 [id number] 00:00:00 [facility] : 1955 Sex: M FAX: Ludin John [phone] [place]: St: ADM FAX: Albino Castillo MD [phone] --------- Name: MARY DALY [facility] [place] : 1955 Age/S: 66/M [address] [place] [address] Unit #: [id number] Loc: G.3343 [place] [address] Phys: Ludin Mccurdy MD Acct: [id number] Dis Date: Status: ADM IN PHONE #: [phone] Date: 08/16/2022 1450 FAX #: [phone] Reason: Cardiac Surgery Post Op EXAMS: CPT CODE: [id number] XR CHEST 1 V 29528 PROCEDURE INFORMATION: Exam: XR Chest Exam date and time: 08/16/2022 2:09 PM Age: 66 years old Clinical indication: Other: Cardiac surgery post op TECHNIQUE: Imaging protocol: Radiologic exam of the chest. Views: 1 view. COMPARISON: CT CHEST W/O CONTRAST 08/15/2022 1:18 PM FIND INGS: Lungs: Low lung volumes. Atelectasis of the left lung base. Pleural spaces: Possible small left pleural fluid. No pneumothorax Heart/Mediastinum: Cardiomediastinal silhouette stable. Bones/joints: Median sternotomy wires. IMPRESSION: . Low lung volumes, hypoventilation. Pleuroparenchymal opacities obscure the left lung base, lower lobe region. No pneumothorax. at 1547 Reported and signed by: Maik Sandra M.D. CC:Ludin Mccurdy MD; Albino Torre MD Technologist: RT Gary(R) Trnscrd Date/Time/By: 08/16/2022 (9923) : By: [email or web address] Orig Print D/T: S: 08/16/2022 (6990) PAGE 1 Signed ReportPROTHROMBIN [id number] 15:45:00 Test Item Value Reference Range Interpretation [...] (to prevent recurrent infar ct). THROMBOPLASTIN TIME [id number] 15:45:00 Test Item Value Reference Range Interpretation Comments THROMBOPLASTIN TIME 33.5 Seconds 25.0-39.5 N Therape utic Range: PARTIAL (test code = 50.4 - 88.3 Seconds PTT) Effective 06/06/2018 B-TYPE NATRIURETIC [id number] 13:25:00 Test Item Value Reference Range Interpretation Comments B-TYPE NATRIURETIC PEPTIDE (test 491.0 PG/ML 0-100 H code = BNP) BASIC METABOLIC [id number] 13:22:00 Test Item Value Reference Range Interpretation [...] the recommended for deborah for GFRby the [facility] Kidney Foundati on for Adults.The GFR will not calculate if th e sex is unknown or if thepatient's ag e is <18 years. CREATININE (test 1.0 mg/dL 0.6-1.3 N code = CREAT) CALCIUM (test code = 8.6 mg/dL 8.0-10.5 N CA) HEPATIC FUNCTION [id number] 13:22:00 Test Item Value Reference Range Interpretation [...] INDIRECT (test code = 0.30 MG/DL BILIND) [id number] 13:22:00 Test Item Value Reference Range Interpretation Comments MAGNESIUM (test code = MAG) 2.14 mg/dL 1.80-2.40 N TROP-I HIGH [id number] 13:22:00 Test Item Value Reference Range Interpretation [...] and URLs mayvary by method. CBC W/AUTO [id number] 13:03:00 Test Item Value Reference Range Interpretation [...] 0.00 x10 3/uL 0.0-0.1 N NRBC#) [facility] [id number] 00:00:00 [facility] ALEAH POWELLName: MARY DALY : 1955 Sex: M Name: [facility] [place] : 1955 Age/S: 66 / M [address] [place] [address] Blvd Unit #: [id number]: [place] [address] Phys: Rosalind Mendez Acct: [id number] Dis Date: Status: ADM IN PHONE #: [phone] Exam Date: 08/15/2022 1317 FAX #: [phone] Reason: R/O DVT EXAMS: CPT CODE: [id number] [place] [address] PROCEDURE INFORMATION: Exam: US Duplex Lower Extremity Veins, Bilateral Exam date and time: 08/15/2022 12:46 PM Age: 66 years old Clinical indication: Screening exam; R/O dvtTECHNIQUE: Imaging protocol: Real- time duplex ultrasound of the bilateral extremities with 2-D walters scale, color Doppler flow and spectral waveform analysis including responses to compression and othermaneuvers (when performed) with image documentation. Complete exam [...] signed by: Kong Marrero M.D. CC: Jaden Beavers MD; Albino Torre MD; Rosalind Mendez Technologist: Christina Dowd Trnscb Date/Time: 08/15/2022 (2552) [email or web address] Orig Print D/T: S: 08/15/2022 (1400) Probe: PAGE 1 Signed Report- CT CHEST W/O [id number] 00:00:00 [facility] 1955 Sex: M Name: MARY DALY [facility] : 1955 Age/S: 66 / M [address] [place] [address] Bl Unit #: [id number] Loc: [place] [address] Phys: Jaden Rodgers MD Acct: [id number] Dis Date: Status: ADM IN PHONE #: [phone] Exam Date: 08/15/2022 1318 FAX #: [phone] Reason: eval post CABG EXAMS: CPT CODE: [id number] CT CHEST W/O CONTRAST 40065 PROCEDURE INFORMATION: Exam: CT Chest Without Contrast; [...] received 3 known CTs and 0 known cardiacnuclear medicine studies in the 12 months prior [...] Vasculature: Unremarkable. No aortic aneurysm. Bones/joints: Post s ternotomy. No evidence of sternal dehiscence. 22 x 36 x 36 mm air and fluid containing collection posterior to the left anterior costochondral junction. Smaller fluid posterior to the lower sternotomy measuring only 7 x 20 by 25 mm. Soft tissues: Unremarkable. IMPRESSION: Post sternotomy. No evidenceof sternal wound dehiscence. Small 22 x 36 x 36 mm air and fluid containing collection posterior to the sternotomy and left anterior costochondral junction. A smaller 7 x 20 x 25 mm lower retrosternal collection is also present. Subsegmental atelectasis or infiltrate in the posteromedial left lung base. Very small left pleural fluid. PAGE 1 Signed Report (CONTINUED) Name: MARY DALY [facility] : 1955 Age/S: 66 / M [address] [place] [address] Unit #: [id number] Loc: [place] [address] Phys: Jaden Rodgers MD Acct: [id number] Dis Date: Status: ADM IN PHONE #: [phone] Exam Date: 08/15/2022 1318 FAX #: [phone] Reason: eval post CABG EXAMS: CPT CODE: [id number] CT CHEST W/O CONTRAST 40052 (Continued) at 1451 Reported and signed by: Maik Sandra M.D. CC: Jaden Rodgers MD; Albino Torre MDTechnologist:Angeli Diaz, RT(R); Arely CTDI: DLP: Trnscb Date/Time: 08/15/2022 (1451) [email or web address] Orig Print D/T: S: 08/15/2022 (7117) PAGE 2 Signed Report- XR CHEST 1 [id number] 00:00:00 [facility] 1955 Sex: M FAX: Jaden Urbano [place]: St: ADM FAX: Albino Castillo MD [phone] Name: MARY DALY [facility] : 1955 Age/S: 66/M [address] [place] [address] Unit #: [id number] Loc: G.3343 [place] [address] Phys: Jaden Santo MD Acct: [id number] Dis Date: Status: ADM IN PHONE #: [phone] Exam Date: 08/15/2022 1233 FAX #: [phone] Reason: Chest Pain EXAMS: CPT CODE: [id number] XR CHEST 1 V 16417 PROCEDURE INFORMATION: Exam: XR Chest Exam date [...] Jaden Rodgers MD; Albino Torre MD Technologist: Julio C Bruno RT(R) Trnscrd Date/Time/By: 08/15/2022 (6264) : By: [email or web address] Orig Print D/T: S: 08/15/2022 (5009) PAGE 1 Signed ReportCBC W/AUTO [id number] 08:16:00 Test Item Value Reference Range Interpretation [...] (test code NO = MDIFF) BASIC METABOLIC [id number] 07:45:00 Test Item Value Reference Range Interpretation [...] the recommended for deborah for GFRby the [facility] Kidney Foundati on for Adults.The GFR will not calculate if th e sex is unknown or if thepatient's ag e is <18 years. CREATININE (test 0.8 mg/dL 0.6-1.3 N code = CREAT) CALCIUM (test code = 8.6 mg/dL 8.0-10.5 N CA) [id number] 07:45:00 Test Item Value Reference Range Interpretation Comments MAGNESIUM (test code = MAG) 2.10 mg/dL 1.80-2.40 N - XR CHEST 1 [id number] 00:00:00 [facility] 1955 Sex: M FAX: Ludin John [phone] [place]: St: ADM FAX: Sam Mckoy MD [phone] FAX: Albino Castillo MD [phone] Name: MARY DALY [facility] : 1955 Age/S: 66/M [address] [place] [address] Unit #: [id number] Loc: [address] [place] [address] Phys: Ludin Mccurdy MD Acct: [id number] Dis Date: Status: ADM IN PHONE #: [phone] Exam Date: 08/09/2022 07 FAX #: [phone] Reason: S/P CABG, R/O EFFUSION EXAMS: CPT CODE: [id number] XR CHEST 1 V 27344 PROCEDURE INFORMATION: Exam: XR Chest Exam date and time: 08/09/2022 5:49 AM Age: 66 [...] aorta. Bones/joints: Sternotomy wires, hardware is demonstrated. Soft tissues: This study is limited by patient's body habitus. Other findings: Limited evaluation with patient rotation. IMPRESSION: 1. Moderate enlarged cardiac silhouette. 2. Moderate pulmonary edema versus infiltrates, pneumonia. 3. Small bilateral pleural effusions. at 0911 Reported and signed by: Oracio Stoner M.D. CC: Ludin Mccurdy MD; Sam Price MD; Albino Torre MD Technologist: RT Lenore(R) Trnscrd Date/Time/By: 08/09/2022 (910) : By: [email or web address] Orig Print D/T: S: 08/09/2022 (0911) PAGE 1 Signed ReportBASIC METABOLIC PANEL 2022-08-08 [...] code = 8.3 mg/dL 8.0-10.5 N CA) [id number] 07:47:00 Test Item Value Reference Range Interpretation Comments PHOSPHOROUS (test code = PHOS) 4.3 MG/DL 2.5-4.9 N [id number] 07:47:00 Test Item Value Reference Range Interpretation Comments MAGNESIUM (test code = MAG) 2.05 mg/dL 1.80-2.40 N CBC W/AUTO [id number] 07:29:00 Test Item Value Reference Range Interpretation [...] NO = MDIFF) - XR CHEST 1 [id number] 00:00:00 [facility] : 1955 Sex: M FAX: Ludin John [phone] [place]: St: ADM FAX: Sam Mckoy MD [phone] FAX: Albino Castillo MD [phone] Name: MARY DALY [facility] [place]ah [place] : 1955 Age/S: 66/M [address] [place] [address] Unit #: [id number] Loc: G.3346 [place] [address] Phys: Ludin Mccurdy MD Acct: [id number] Dis Date: Status: ADM IN PHONE #: [phone] Exam Date: 08/08/2022728 FAX #: [phone] Reason: Cardiac Surgery Post Op EXAMS: CPT CODE: [id number] XR CHEST 1 V 61006 PROCEDURE INFORMATION: Exam: XR Chest Exam date and time: 08/08/2022 7:37 AM Age: 66 years old Clinical indication: Other: Cardiac surgery post op TECHNIQUE: Imaging protocol: Radiologic exam of the chest. Views: 1 view. COMPARISON: CR XR CHEST 1V 08/07/2022 7:21 AM FINDINGS: Lungs: Improved left basilar opacities. The other lung opacities arestable. Pleural spaces: Small pleural effusions could be present. Tiny curvilinear density at the left apex, [...] 10% volume. Attention on follow-up exam. at 0925 Reported and signed by: Allan Diana M.D. CC: Ludin Mccurdy MD; Sam Price MD; Albino Torre MD Technologist: RT Kalli(Katherine) Trnscrd Date/Time/By: 08/08/2022 (924) : By: [email or web address] Orig Print D/T: S: 08/08/2022 (924) PAGE 1 Signed ReportCBC W/AUTO [id number] 07:58:00 Test Item Value Reference Range Interpretation [...] (test code NO = MDIFF) BASIC METABOLIC [id number] 07:35:00 Test Item Value Reference Range Interpretation [...] Creatinine, pat ient age and sex. GFR angeles benitoless than 60 mL/min/ 1.73 square meters a [...] code = 8.4 mg/dL 8.0-10.5 N CA) [id number] 07:35:00 Test Item Value Reference Range Interpretation Comments MAGNESIUM (test code = MAG) 2.00 mg/dL 1.80-2.40 N - [place] [id number] 00:00:00 [facility] 1955 Sex: M Name: MARY DALY [facility] [place] : 1955 Age/S: 66 / M [address] [place] [address] Unit #: [id number]: [place] [address] Phys: Rosalind Mendez Acct: [id number] Dis Date: Status: ADM IN PHONE #: [phone] Exam Date: 08/07/2022 1304 FAX #: [phone] Reason: R/O DVT EXAMS: CPT CODE: [id number] [place] [address] PROCEDURE INFORMATION: Exam: US Duplex Lower Extremity Veins, Bilateral Exam date and time: 08/07/2022 11:08 AM Age: 66 years old Clinical indication: Condition or disease; Other: S/P cabg; Additional info: R/O dvt TECHNIQUE: Imaging protocol: Real-time duplex ultrasound ofthe bilateral extremities with 2-D walters scale, color Doppler flow and spectral waveform analysis including responses to compression and other maneuvers (when performed) with image documentation. Complete exam focused on the lower extremity veins. COMPARISON: US [place] 07/28/2022 11:04 AM FINDINGS:Right deep veins: Unremarkable. The common femoral, femoral, proximal profunda femoral and poplitealveins are patent without thrombus. Normal Doppler waveforms. Normal compressibility and/or augmentation response. Right superficial veins: Saphenofemoral junction is patent [...] Technologist: Carolyn Prather Trnscb Date/Time: 08/07/2022 (1517) [email or web address] Orig Print D/T: S: 08/07/2022 (1518) Probe: PAGE 1 Signed Report- XR CHEST 1 V 2022-08-07 00:00:00 [facility] : 1955 Sex: M FAX: Ludin John [phone] [place]: St: [facility] FAX: Sam Mckoy MD [phone] FAX: Albino Castillo MD [phone] Name: MARY DALY [facility] : 1955 Age/S: 66/M [address] [place] [address] Unit #: [id number] Loc: [id number] [place] [address] Phys: Ludin Mccurdy MD Acct: [id number] Dis Date: Status: ADM IN PHONE #: [phone] Exam Date: 08/07/2022816 FAX #: [phone] Reason: CardiacSurgery Post Op EXAMS: CPT CODE: [id number] XR CHEST 1 V 75538 PROCEDURE INFORMATION: Exam: XR ChestExam date and time: 08/07/2022 7:21 AM Age: [...] RT(R); Muriel Jacobs RT(R) Trnscrd Date/Time/By: 08/07/2022 (3475) : By: [email or web address] Orig Print D/T: S: 08/07/2022 (5397) PAGE 1 Signed ReportC W/AUTO DIFF 2022-08-06 11:25:00 Test Item Value [...] (test code NO = MDIFF) BASIC METABOLIC [id number] 07:44:00 Test Item Value Reference Range Interpretation [...] the recommended for deborah for GFRby the [facility] Kid[facility] Foundati on for Adults.The GFR will not calculate if th e sex is unknown or if thepatient's ag e is <18 years. CREATININE (test 0.8 mg/dL 0.6-1.3 N code = CREAT) CALCIUM (test code = 8.8 mg/dL 8.0-10.5 N CA) [id number] 07:44:00 Test Item Value Reference Range Interpretation Comments MAGNESIUM (test code = MAG) 2.03 mg/dL 1.80-2.40 N - XR CHEST 1 [id number] 00:00:00 [facility] 1955 Sex: M FAX: Ludin John [phone] [place]: St: ADM FAX: Sam Mckoy MD [phone] FAX: Albino Castillo MD [phone] Name: MARY DALY [facility] : 1955 Age/S: 66/M [address] [place], [place] [address]vd Unit #: [id number] Loc: G.3346 [place] [address] Phys: Ludin Mccurdy MD Acct: [id number] Dis Date: Status: ADM IN PHONE #: [phone] Exam Date: 08/06/2022619 FAX #: [phone] Reason: Cardiac Surgery Post Op EXAMS: CPT CODE: [id number] XR CHEST 1 V 16169 PROCEDURE INFORMATION: Exam: XR Chest Exam date [...] there is prominence of the pulmonary interstitium particularly in the mid to lower lung zones suggesting CHF and pulmonary edema. Pleural spaces: Small posterior layering left pleural effusion. No pneumothorax. Heart/Mediastinum: Stable large cardiac silhouette. Bones/joints: Median sternotomy wires. IMPRESSION: Interval removal left chest tube. No pneumothorax.Small posterior layering left pleural effusion may be present. Cardiomegaly, with apparent pulmonaryvascular congestion and pulmonary edema. at 0826 Reported and signed by: Maik Sandra M.D. CC: Ludin Mccurdy MD; Sam Price MD; Albino Torre MD Technologist: RT Jennifer(Katherine) Trnscrd Date/Time/By: 08/06/2022 (825) : By: [email or web address] Orig Print D/T: S: 08/06/2022 (0827) PAGE 1 Signed [id number] 13:57:00 Test Item Value Reference Interpretation Comments Range SURGICAL (test code = SR) RUN DATE: 08/05/22 Open[employer]riculum PAGE 1 RUN TIME: 1357 Specimen Inquiry RUN USER: INTERFACE PATIENT: MARY DALY LOC: JOSH U #: [id number] AGE/SX: 66/M [place] [facility] [place] DR: Anthony Loaiza MD : 51 BED: 1 DIS: STATUS: ADM IN TLOC: SPEC #: [id number] RECD: 08/03/22 STATUS: TERRY REJim #: [id number] MELODY: 08/02/22- [facility] DR: Ludin Mccurdy MD ENTERED: 08/03/22 SP TYPE: SURGICAL OTHR DR: Sam Fallon MD, Imtiaz MD Aldeiri, Molham MD Chaugle, Abdul Hannan MD Raslan, Saleem MD Resnick, Harvey MDORDERED: 36683, ANATOMIC SPEC COPIES TO: Sam Fallon MD [address] [place] [address], [address] [place] [address] Sterling Hidalgo MD [address] [id number] Flako Sainz MD [address] [id number] Ludin Mccurdy MD [address] [place] [address]. [address] [place] [id number] Sam Price MD [address] [facility] [address] [place] [address] Albino Torre MD [address] [place] [address] [address] [place] [id number] PROCEDURES: 27460 (08/03/22-1015) CONTINUED ON NEXT PAGE RUN DATE: 08/05/22 [place] - LAB PAGE 2 RUN TIME: 1357 Specimen Inquiry RUN USER: INTERFACE SPEC #: [id number] PATIENT: MARY DALY #[id number] (Continued) - TISSUES: A. ATRIUM - LEFT [...] submitted as A. Technical component performed at [facility],[address] [place] [address], [place] [address] Unless gross only, the diagnosis is based [...] CLINICAL INFORMATION CAD Signed SIGNATURE ON FILE Chica Sanches 08/05/22 1357 END OF REPORT CBC W/AUTO [id number] 07:29:00 Test Item Value Reference Range Interpretation [...] (test code NO = MDIFF) BASIC METABOLIC [id number] 06:12:00 Test Item Value Reference Range Interpretation [...] 8.0-10.5 N CA) COMMENTS: POD #1HEPATIC FUNCTION [id number] 06:12:00 Test Item Value Reference Range Interpretation [...] 20-125 N code = ALKP) COMMENTS: POD #[id number] 06:12:00 Test Item Value Reference Range Interpretation Comments MAGNESIUM (test code = MAG) 2.14 mg/dL 1.80-2.40 N COMMENTS: POD #1- XR CHEST 1 [id number] 00:00:00 [facility] : 1955 Sex: M FAX: Ludin John [phone] [place]: St: ADM FAX: Sam Mckoy MD [phone] FAX: Albino Castillo MD [phone] Name: MARY DALY [facility] : 1955 Age/S: 66/M [address] [place] [address] Bl Unit #: [id number] Loc: G.2207 [place] [address] Phys: Ludin Mccurdy MD Acct: [id number] Dis Date: Status: ADM IN PHONE #: [phone] Exam Date: 08/05/2022 0656 FAX #: [phone] Reason: Cardiac Surgery Post Op EXAMS: CPT CODE: [id number] XR CHEST 1 V 88360 PROCEDURE INFORMATION: Exam: XR Chest Exam date and time: 08/05/2022 5:38 AM Age: 66 years old Clinical indication: Other: Cardiac surgery postop TECHNIQUE: Imaging protocol: Radiologic exam of the chest. Views: 1 view. COMPARISON: CR XR [id number] 08/04/2022 5:38 AM FINDINGS: Tubes, catheters and devices: Removal of the right IJ catheter sheath. Stable left chest tube. Lungs: Bilateral lung opacities have increased. Pleural spaces: Small pleural effusions could be present. No definite pneumothorax. Heart/Mediastinum: The enlarged heart size is stable. Vasculature: Atherosclerotic calcifications. Bones/joints: Stable. Median sternotomy wires.IMPRESSION: 1. Worsening lung opacities. 2. Resolution of small left pneumothorax. Stable left chest tube. 3. Removal of right catheter sheath. at 0813 Reported and signed by: Allan Diana M.D. CC: Ludin Mccurdy MD; Sam Price MD; Albino Torre MD Technologist: William Bashir RT(R) Trnscrd Date/Time/By: 08/05/2022 (812) : By: [email or web address] Orig Print D/T: S: 08/05/2022 (812) PAGE 1 Signed ReportBASIC METABOLIC [id number] 15:41:00 Test Item Value Reference Range Interpretation [...] code = 8.0 mg/dL 8.0-10.5 N CA) [id number] 15:41:00 Test Item Value Reference Range Interpretation Comments MAGNESIUM (test code = MAG) 2.16 mg/dL 1.80-2.40 N - XR CHEST 1 [id number] 10:00:00 [facility] 1955 Sex: M FAX: Ludin John [phone] [place]: St: ADM FAX: Sam Mckoy MD [phone] FAX: Albino Castillo MD [phone] Name: MARY DALY [facility] : 1955 Age/S: 66/M [address] [place] [address] Bl Unit #:[id number] Loc: G.2207 [place] [address] Phys: Ludin Mccurdy MD Acct: [id number] Dis Date: Status: ADM IN PHONE #: [phone] Exam Date: 08/04/2022539 FAX #: [phone] Reason: Cardiac Surgery Post Op EXAMS: CPT CODE: [id number] XR CHEST 1 V 31649 CHEST ONE VIEW Dictation location N 13 C linical history post cardiac surgery TECHNIQUE: Single frontal view of the chest was obtained and iscompared to a prior study August 03 536 hours FINDINGS: There has been prior lower cervical fusion and midline sternotomy post cardiac surgery. Left-sided chest tube remains at the left basilar lower hemithorax. There is a small 10% left-sided pneumothorax. Trace left pleural fluid also seen. Mild interstitial infiltrates are seen in the lower two thirds of the left lung. IMPRESSION: 1. Small left-sided 10% pneumothorax with a chest tube in place. 2. Findings were called to MARCELINO Carr, CVICU nurse at 10:00 AM at 1000 Reported and signed by: Radha Stanely M.D. CC: Ludin Mccurdy MD; Sam Price MD; Albino Torre MD Technologist: Belem Stark RT(R) Trnscrd Date/Time/By: 08/04/2022 (1000) : By: Vadim Orig Print D/T: S: 08/04/2022 (1003) PAGE 1 Signed ReportCBC W/AUTO [id number] 03:31:00 Test Item Value Reference Range Interpretation [...] LY#) MANUAL DIFF REQUIRED NO SLIDE R MANNYWED, (test code = MDIFF) CONSISTE NT WITH [...] 3/uL 0.0-0.1 N code = NRBC#) PLT [id number] 03:31:00 Test Item Value Reference Range Interpretation Comments PLATELET ESTIMATE (test code 100-125 THOUSAND ADEQUATE = PLTEST) BASIC METABOLIC [id number] 03:20:00 Test Item Value Reference Range Interpretation [...] 8.0-10.5 N CA) COMMENTS: POD #1HEPATIC FUNCTION [id number] 03:20:00 Test Item Value Reference Range Interpretation [...] 20-125 N code = ALKP) COMMENTS: POD #[id number] 03:20:00 Test Item Value Reference Range Interpretation Comments MAGNESIUM (test code = MAG) 2.13 mg/dL 1.80-2.40 N COMMENTS: POD #1POC ARTERIAL BLOOD [id number] 02:57:00 Test Item Value Reference Range Interpretation Comments POC ARTERIAL BLOOD GAS PH (test 7.456 7.35-7.45 H code = POCPHA) POC ARTERIAL BLOOD GAS PCO2 (test 34.5 mmHg 35.0-45 L code = AUQREC8Q) POC TCO2 ARTERIAL (test code = 25.1 POCTCO2) POC ARTERIAL BLOOD GAS PO2 (test 60.9 mmHg 80-100.0 L code = NABFJ4W) POC HCO3 ARTERIAL (test code = 24.1 MMOL/L 22.0-26.0 N ADSWVJ8O) POC BASE EXCESS (test code = 0.5 MMOL/L -4.0-4.0 N POCBEA) POC O2 SATURATION (test code = 91.1 % 90-100 N POCO2S) ABG DELIVERY (test code = KIRBY) Cannula ABG TEMPERATURE (test code = 100.6 F TEMPA) ABG SITE (test code = SITEA) Art Line NAZIA'S TEST (test code = ALLENS) N/A BASIC METABOLIC [id number] 02:57:00 Test Item Value Reference Range Interpretation [...] = POCGLU) 92 MG/DL 70-110 N HEMOGLOBIN [id number] 02:57:00 Test Item Value Reference Range Interpretation Comments HEMOGLOBIN ABG (test code = HGB/ABG) 7.2 G/DL 12.5-16.9 L [id number] 02:57:00 Test Item Value Reference Range Interpretation Comments HEMATOCRIT (test code = HCT/ABG) 21 % 37.5-50.7 L POC LACTIC [id number] 02:57:00 Test Item Value Reference Range Interpretation Comments POC LACTIC ACID (test code = 0.5 mmol/l 0.9-1.7 L POCLAC) POC ARTERIAL BLOOD [id number] 07:03:00 Test Item Value Reference Range Interpretation Comments POC ARTERIAL BLOOD GAS PH (test 7.398 7.35-7.45 N code = POCPHA) POC ARTERIAL BLOOD GAS PCO2 (test 36.4 mmHg 35.0-45 N code = QKTZDX7B) POC TCO2 ARTERIAL (test code = 23.5 POCTCO2) POC ARTERIAL BLOOD GAS PO2 (test 83.2 mmHg 80-100.0 N code = JWVRA2Z) POC HCO3 ARTERIAL (test code = 22.4 MMOL/L 22.0-26.0 N XUGDRU6R) POC BASE EXCESS (test code = -2.4 MMOL/L -4.0-4.0 N POCBEA) POC O2 SATURATION (test code = 96.1 % 90-100 N POCO2S) ABG DELIVERY (test code = KIRBY) Cannula ABG TEMPERATURE (test code = 99.1 F TEMPA) ABG SITE (test code = SITEA) Art Line BASIC METABOLIC [id number] 07:03:00 Test Item Value Reference Range Interpretation [...] = POCGLU) 114 MG/DL 70-110 H HEMOGLOBIN [id number] 07:03:00 Test Item Value Reference Range Interpretation Comments HEMOGLOBIN ABG (test code = HGB/ABG) 9.1 G/DL 12.5-16.9 L [id number] 07:03:00 Test Item Value Reference Range Interpretation Comments HEMATOCRIT (test code = HCT/ABG) 27 % 37.5-50.7 L POC LACTIC [id number] 07:03:00 Test Item Value Reference Range Interpretation Comments POC LACTIC ACID (test code = 0.9 mmol/l 0.9-1.7 N POCLAC) BASIC METABOLIC [id number] 04:12:00 Test Item Value Reference Range Interpretation [...] = POCGLU) 104 MG/DL 70-110 N HEMOGLOBIN [id number] 04:12:00 Test Item Value Reference Range Interpretation Comments HEMOGLOBIN ABG (test code = HGB/ABG) 8.7 G/DL 12.5-16.9 L [id number] 04:12:00 Test Item Value Reference Range Interpretation Comments HEMATOCRIT (test code = HCT/ABG) 26 % 37.5-50.7 L POC LACTIC [id number] 04:12:00 Test Item Value Reference Range Interpretation Comments POC LACTIC ACID (test code = 0.5 mmol/l 0.9-1.7 L POCLAC) POC VENOUS BLOOD [id number] 04:12:00 Test Item Value Reference Range Interpretation Comments POC VENOUS BLOOD GAS PH (test 7.365 7.33-7.45 N code = POCPHV) POC VENOUS BLOOD GAS PCO2 (test 43.0 mmHg 43-47 N code = MKOBIB5F) POC VENOUS BLOOD GAS PO2 (test 35.6 mmHG 10-50 N code = ATGPK0T) POC TCO2 VENOUS (test code = 25.8 BQYETS6S) POC HCO3 VENOUS (test code = 24.5 MMOL/L 22-27 N DFYZSR2L) POC BASE EXCESS VENOUS (test code -0.8 MMOL/L -4.0-4.0 N = POCBEV) POC O2 SATURATION VENOUS (test 65.6 % 60-80 N code = CXNF2BM) VENOUS BLOOD GAS DELIVERY (test Cannula code = DELV) VENOUS BLOOD GAS TEMP (test code 98.8 F = TEMPV) VENOUS BLOOD GAS SITE (test code [place] = SITEV) BASIC METABOLIC [id number] 04:01:00 Test Item Value Reference Range Interpretation [...] 8.0-10.5 N CA) COMMENTS: POD #1HEPATIC FUNCTION [id number] 04:01:00 Test Item Value Reference Range Interpretation [...] 20-125 N code = ALKP) COMMENTS: POD #[id number] 04:01:00 Test Item Value Reference Range Interpretation Comments MAGNESIUM (test code = MAG) 2.01 mg/dL 1.80-2.40 N COMMENTS: POD #1CBC W/AUTO [id number] 03:26:00 Test Item Value Reference Range Interpretation [...] code NO = MDIFF) POC ARTERIAL BLOOD [id number] 02:29:00 Test Item Value Reference Range Interpretation Comments POC ARTERIAL BLOOD GAS PH (test 7.393 7.35-7.45 N code = POCPHA) POC ARTERIAL BLOOD GAS PCO2 (test 39.9 mmHg 35.0-45 N code = NJPHGD3U) POC TCO2 ARTERIAL (test code = 25.6 POCTCO2) POC ARTERIAL BLOOD GAS PO2 (test 78.2 mmHg 80-100.0 L code = WINZB4U) POC HCO3 ARTERIAL (test code = 24.3 MMOL/L 22.0-26.0 N UMIWPD8X) POC BASE EXCESS (test code = -0.6 MMOL/L -4.0-4.0 N POCBEA) POC O2 SATURATION (test code = 95.4 % 90-100 N POCO2S) ABG DELIVERY (test code = KIRBY) Cannula ABG TEMPERATURE (test code = 98.6 F TEMPA) ABG SITE (test code = SITEA) Art Line BASIC METABOLIC [id number] 02:29:00 Test Item Value Reference Range Interpretation [...] = POCGLU) 93 MG/DL 70-110 N HEMOGLOBIN [id number] 02:29:00 Test Item Value Reference Range Interpretation Comments HEMOGLOBIN ABG (test code = HGB/ABG) 8.7 G/DL 12.5-16.9 L [id number] 02:29:00 Test Item Value Reference Range Interpretation Comments HEMATOCRIT (test code = HCT/ABG) 26 % 37.5-50.7 L POC LACTIC [id number] 02:29:00 Test Item Value Reference Range Interpretation Comments POC LACTIC ACID (test code = 0.6 mmol/l 0.9-1.7 L POCLAC) GLUCOSE [id number] 00:21:00 Test Item Value Reference Range Interpretation Comments GLUCOSE BEDSIDE (test 120 MG/DL 70-110 H Perfor med by certified code = GLUBED) 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[facility] - XR CHEST 1 [id number] 00:00:00 [facility] 1955 Sex: M FAX: Ludin John [phone] [place]: GC St: ADM FAX: Sam Mckoy MD [phone] FAX: Albino Castillo MD [phone] Name: MARY DALY [place] : 1955 Age/S: 66/M [address] [place] [address] Unit #: [id number] Loc: [place] [address] Phys: Ludin Mccurdy MD Acct: [id number] Dis Date: Status: ADM IN PHONE #: [phone] Exam Date: 08/03/2022 0637 FAX #: [phone] Reason: Cardiac Surgery Post Op EXAMS: CPT CODE: [id number] XR CHEST 1 V 71295 PROCEDURE INFORMATION: Exam: XR Chest Exam date and time: 08/03/2022 5:37 AM Age: 66 years old Clinical indication: Other: Cardiac surgerypost op TECHNIQUE: Imaging protocol: Radiologic exam of [...] Price MD; Albino Torre MD Technologist: RT Andrew(R) Trnscrd Date/Time/By: 08/03/2022 (0800) : By: [email or web address] Orig Print D/T: S: 08/03/2022(0800) PAGE 1 Signed ReportGLUCOSE [id number] 22:18:00 Test Item Value Reference Range Interpretation Comments GLUCOSE BEDSIDE (test 134 MG/DL 70-110 H Perfor med by certified code = GLUBED) 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 Kidney Foundati on for Adults.The GFR will not calculate if th e sex is unknown or if thepatient's ag e is <18 years. 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[facility] CBC W/AUTO [id number] 20:55:00 Test Item Value Reference Range Interpretation [...] NO code = MDIFF) POC ARTERIAL BLOOD [id number] 20:47:00 Test Item Value Reference Range Interpretation Comments POC ARTERIAL BLOOD GAS PH (test 7.378 7.35-7.45 N code = POCPHA) POC ARTERIAL BLOOD GAS PCO2 (test 41.7 mmHg 35.0-45 N code = KDBJXX0G) POC TCO2 ARTERIAL (test code = 25.9 POCTCO2) POC ARTERIAL BLOOD GAS PO2 (test 83.4 mmHg 80-100.0 N code = ANLTX2B) POC HCO3 ARTERIAL (test code = 24.6 MMOL/L 22.0-26.0 N AQNPVE7K) POC BASE EXCESS (test code = -0.6 MMOL/L -4.0-4.0 N POCBEA) POC O2 SATURATION (test code = 96.1 % 90-100 N POCO2S) ABG DELIVERY (test code = KIRBY) Cannula ABG TEMPERATURE (test code = 98.2 F TEMPA) ABG SITE (test code = SITEA) Art Line BASIC METABOLIC [id number] 20:47:00 Test Item Value Reference Range Interpretation [...] = POCGLU) 147 MG/DL 70-110 H HEMOGLOBIN [id number] 20:47:00 Test Item Value Reference Range Interpretation Comments HEMOGLOBIN ABG (test code = HGB/ABG) 8.8 G/DL 12.5-16.9 L [id number] 20:47:00 Test Item Value Reference Range Interpretation Comments HEMATOCRIT (test code = HCT/ABG) 26 % 37.5-50.7 L POC LACTIC [id number] 20:47:00 Test Item Value Reference Range Interpretation Comments POC LACTIC ACID (test code = 1.5 mmol/l 0.9-1.7 N POCLAC) BASIC METABOLIC [id number] 19:54:00 Test Item Value Reference Range Interpretation [...] = POCGLU) 154 MG/DL 70-110 H HEMOGLOBIN [id number] 19:54:00 Test Item Value Reference Range Interpretation Comments HEMOGLOBIN ABG (test code = HGB/ABG) 8.6 G/DL 12.5-16.9 L [id number] 19:54:00 Test Item Value Reference Range Interpretation Comments HEMATOCRIT (test code = HCT/ABG) 25 % 37.5-50.7 L POC LACTIC [id number] 19:54:00 Test Item Value Reference Range Interpretation Comments POC LACTIC ACID (test code = 2.0 mmol/l 0.9-1.7 H POCLAC) POC VENOUS BLOOD [id number] 19:54:00 Test Item Value Reference Range Interpretation Comments POC VENOUS BLOOD GAS PH (test 7.334 7.33-7.45 N code = POCPHV) POC VENOUS BLOOD GAS PCO2 (test 45.9 mmHg 43-47 N code = QQHEKK0W) POC VENOUS BLOOD GAS PO2 (test 38.0 mmHG 10-50 N code = GCWSK4F) POC TCO2 VENOUS (test code = 25.9 FILLJN0O) POC HCO3 VENOUS (test code = 24.5 MMOL/L 22-27 N JIMWLW5N) POC BASE EXCESS VENOUS (test code -1.4 MMOL/L -4.0-4.0 N = POCBEV) POC O2 SATURATION VENOUS (test 68.8 % 60-80 N code = KUFH9CI) VENOUS BLOOD GAS DELIVERY (test Cannula code = DELV) VENOUS BLOOD GAS TEMP (test code 98.1 F = TEMPV) VENOUS BLOOD GAS SITE (test code [place] = SITEV) GLUCOSE [id number] 19:00:00 Test Item Value Reference Range Interpretation Comments GLUCOSE BEDSIDE (test 109 MG/DL 70-110 N [facility] med by certified code = GLUBED) 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 Kidney Foundati on for Adults.The GFR will not calculate if th e sex is unknown or if thepatient's ag e is <18 years. CREATININE (test 1.0 mg/dL 0.6-1.3 N code = CREAT) CALCIUM (test code = 7.7 mg/dL 8.0-10.5 L CA) COMMENTS: On arrivalComment: On [id number] 16:15:00 Test Item Value Reference Range Interpretation Comments MAGNESIUM (test code = MAG) 2.25 mg/dL 1.80-2.40 N COMMENTS: On arrivalComment: On arrivalPROTHROMBIN [id number] 16:11:00 Test Item Value Reference Range Interpretation Comments PROTHROMBIN TIME 14.4 SECONDS 9.3-12.9 H PATIENT (test code = PTP) INTERNATIONAL NORMAL 1.3 0.8-1.2 H TARGET INR BY RATIO (test [...] recurrent infar ct). COMMENTS: On arrivalTHROMBOPLASTIN TIME [id number] 16:11:00 Test Item Value Reference Range Interpretation Comments THROMBOPLASTIN TIME 27.4 Seconds 25.0-39.5 Therape utic Range: PARTIAL (test code = 50.4 - 88.3 Seconds PTT) Effective 06/06/2018 COMMENTS: On arrivalCBC W/AUTO [id number] 16:00:00 Test Item Value Reference Range Interpretation [...] (test NO code = MDIFF) COMMENTS: [facility] [id number] 15:47:00 Test Item Value Reference Range Interpretation Comments POC ARTERIAL BLOOD GAS PH (test 7.300 7.35-7.45 L code = POCPHA) POC ARTERIAL BLOOD GAS PCO2 (test 38.2 mmHg 35.0-45 N code = AOZEZY0N) POC TCO2 ARTERIAL (test code = 20.0 POCTCO2) POC ARTERIAL BLOOD GAS PO2 (test 93.1 mmHg 80-100.0 N code = SJZDE7D) POC HCO3 ARTERIAL (test code = 18.8 MMOL/L 22.0-26.0 L GCWIAX0L) POC BASE EXCESS (test code = -7.6 MMOL/L -4.0-4.0 L POCBEA) POC O2 SATURATION (test code = 96.4 % 90-100 N POCO2S) BASIC METABOLIC [id number] 15:47:00 Test Item Value Reference Range Interpretation [...] = POCGLU) 187 MG/DL 70-110 H HEMOGLOBIN [id number] 15:47:00 Test Item Value Reference Range Interpretation Comments HEMOGLOBIN ABG (test code = 11.1 G/DL 12.5-16.9 L HGB/ABG) [id number] 15:47:00 Test Item Value Reference Range Interpretation Comments HEMATOCRIT (test code = HCT/ABG) 33 % 37.5-50.7 L [id number] 14:31:00 Test Item Value Reference Range Interpretation Comments ACT-ISTAT (test code 107 SEC 74-137 N Perform ed by certified = ACTI) 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[facility] POC ARTERIAL BLOOD [id number] 14:25:00 Test Item Value Reference Range Interpretation Comments POC ARTERIAL BLOOD GAS PH (test 7.391 7.35-7.45 N code = POCPHA) POC ARTERIAL BLOOD GAS PCO2 (test 36.7 mmHg 35.0-45 N code = VMBAZQ3M) POC TCO2 ARTERIAL (test code = 23.4 POCTCO2) POC ARTERIAL BLOOD GAS PO2 (test 254.6 mmHg 80-100.0 HH code = TIHAK4R) POC HCO3 ARTERIAL (test code = 22.3 MMOL/L 22.0-26.0 N EFPRST1Y) POC BASE EXCESS (test code = -2.4 MMOL/L -4.0-4.0 N POCBEA) POC O2 SATURATION (test code = 99.9 % 90-100 N POCO2S) BASIC METABOLIC [id number] 14:25:00 Test Item Value Reference Range Interpretation [...] = POCGLU) 187 MG/DL 70-110 H HEMOGLOBIN [id number] 14:25:00 Test Item Value Reference Range Interpretation Comments HEMOGLOBIN ABG (test code = HGB/ABG) 9.0 G/DL 12.5-16.9 L [id number] 14:25:00 Test Item Value Reference Range Interpretation Comments HEMATOCRIT (test code = HCT/ABG) 27 % 37.5-50.7 L POC LACTIC [id number] 14:25:00 Test Item Value Reference Range Interpretation Comments POC LACTIC ACID (test code = 2.3 mmol/l 0.9-1.7 H POCLAC) [id number] 13:34:00 Test Item Value Reference Range Interpretation Comments ACT-ISTAT (test code 588 SEC 74-137 H Perform ed by certified = ACTI) 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[facility] POC ARTERIAL BLOOD [id number] 13:24:00 Test Item Value Reference Range Interpretation Comments POC ARTERIAL BLOOD GAS PH (test 7.383 7.35-7.45 N code = POCPHA) POC ARTERIAL BLOOD GAS PCO2 (test 42.0 mmHg 35.0-45 N code = [id number]) POC TCO2 ARTERIAL (test code = 26.3 POCTCO2) POC ARTERIAL BLOOD GAS PO2 (test 345.2 mmHg 80-100.0 HH code = [id number]) POC HCO3 ARTERIAL (test code = 25.0 MMOL/L 22.0-26.0 N [id number]) POC BASE EXCESS (test code = -0.1 MMOL/L -4.0-4.0 N POCBEA) POC O2 SATURATION (test code = 99.9 % 90-100 N POCO2S) BASIC METABOLIC [id number] 13:24:00 Test Item Value Reference Range Interpretation [...] = POCGLU) 184 MG/DL 70-110 H HEMOGLOBIN [id number] 13:24:00 Test Item Value Reference Range Interpretation Comments HEMOGLOBIN ABG (test code = HGB/ABG) 9.5 G/DL 12.5-16.9 L [id number] 13:24:00 Test Item Value Reference Range Interpretation Comments HEMATOCRIT (test code = HCT/ABG) 28 % 37.5-50.7 L POC LACTIC [id number] 13:24:00 Test Item Value Reference Range Interpretation Comments POC LACTIC ACID (test code = 1.2 mmol/l 0.9-1.7 N POCLAC) [id number] 13:03:00 Test Item Value Reference Range Interpretation Comments ACT-ISTAT (test code 666 SEC 74-137 H Perform ed by certified = ACTI) 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[facility] POC ARTERIAL BLOOD [id number] 12:47:00 Test Item Value Reference Range Interpretation Comments POC ARTERIAL BLOOD GAS PH (test 7.404 7.35-7.45 N code = POCPHA) POC ARTERIAL BLOOD GAS PCO2 (test 41.3 mmHg 35.0-45 N code = PVGFWQ5L) POC TCO2 ARTERIAL (test code = 27.1 POCTCO2) POC ARTERIAL BLOOD GAS PO2 (test 417.5 mmHg 80-100.0 HH code = KVYDZ8S) POC HCO3 ARTERIAL (test code = 25.8 MMOL/L 22.0-26.0 N OQTRKW9B) POC BASE EXCESS (test code = 1.0 MMOL/L -4.0-4.0 N POCBEA) POC O2 SATURATION (test code = 100.0 % 90-100 N POCO2S) BASIC METABOLIC [id number] 12:47:00 Test Item Value Reference Range Interpretation [...] = POCGLU) 142 MG/DL 70-110 H HEMOGLOBIN [id number] 12:47:00 Test Item Value Reference Range Interpretation Comments HEMOGLOBIN ABG (test code = HGB/ABG) 9.7 G/DL 12.5-16.9 L [id number] 12:47:00 Test Item Value Reference Range Interpretation Comments HEMATOCRIT (test code = HCT/ABG) 28 % 37.5-50.7 L POC LACTIC [id number] 12:47:00 Test Item Value Reference Range Interpretation Comments POC LACTIC ACID (test code = 0.6 mmol/l 0.9-1.7 L POCLAC) [id number] 12:32:00 Test Item Value Reference Range Interpretation Comments ACT-ISTAT (test code 486 SEC 74-137 H Perform ed by certified = ACTI) 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[facility] [id number] 12:17:00 Test Item Value Reference Range Interpretation Comments ACT-ISTAT (test code 407 SEC 74-137 H Perform ed by certified = ACTI) 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[facility] [id number] 12:13:00 Test Item Value Reference Range Interpretation Comments HEMATOCRIT (test code = HCT/ABG) 38 % 37.5-50.7 N POC LACTIC [id number] 12:13:00 Test Item Value Reference Range Interpretation Comments POC LACTIC ACID (test code = < 0.3 mmol/l 0.9-1.7 L POCLAC) POC ARTERIAL BLOOD [id number] 12:13:00 Test Item Value Reference Range Interpretation Comments POC ARTERIAL BLOOD GAS PH (test 7.338 7.35-7.45 L code = POCPHA) POC ARTERIAL BLOOD GAS PCO2 (test 42.3 mmHg 35.0-45 N code = JOXRNS1S) POC TCO2 ARTERIAL (test code = 24.1 POCTCO2) POC ARTERIAL BLOOD GAS PO2 (test 453.7 mmHg 80-100.0 HH code = MRVQS8V) POC HCO3 ARTERIAL (test code = 22.8 MMOL/L 22.0-26.0 N CSAJYG6H) POC BASE EXCESS (test code = -3.0 MMOL/L -4.0-4.0 N POCBEA) POC O2 SATURATION (test code = 100.0 % 90-100 N POCO2S) BASIC METABOLIC [id number] 12:13:00 Test Item Value Reference Range Interpretation [...] = POCGLU) 135 MG/DL 70-110 H HEMOGLOBIN [id number] 12:13:00 Test Item Value Reference Range Interpretation Comments HEMOGLOBIN ABG (test code = 13.1 G/DL 12.5-16.9 N HGB/ABG) [id number] 10:48:00 Test Item Value Reference Range Interpretation Comments ACT-ISTAT (test code 137 SEC 74-137 N Perform ed by certified = ACTI) 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[facility] POC ARTERIAL BLOOD [id number] 10:41:00 Test Item Value Reference Range Interpretation Comments POC ARTERIAL BLOOD GAS PH (test 7.361 7.35-7.45 N code = POCPHA) POC ARTERIAL BLOOD GAS PCO2 (test 42.7 mmHg 35.0-45 N code = IETNQX9F) POC TCO2 ARTERIAL (test code = 25.5 POCTCO2) POC ARTERIAL BLOOD GAS PO2 (test 494.1 mmHg 80-100.0 HH code = EZBMB4N) POC HCO3 ARTERIAL (test code = 24.2 MMOL/L 22.0-26.0 N GXBNJN6C) POC BASE EXCESS (test code = -1.4 MMOL/L -4.0-4.0 N POCBEA) POC O2 SATURATION (test code = 100.0 % 90-100 N POCO2S) BASIC METABOLIC [id number] 10:41:00 Test Item Value Reference Range Interpretation [...] = POCGLU) 158 MG/DL 70-110 H HEMOGLOBIN [id number] 10:41:00 Test Item Value Reference Range Interpretation Comments HEMOGLOBIN ABG (test code = 16.0 G/DL 12.5-16.9 N HGB/ABG) [id number] 10:41:00 Test Item Value Reference Range Interpretation Comments HEMATOCRIT (test code = HCT/ABG) 47 % 37.5-50.7 N POC LACTIC [id number] 10:41:00 Test Item Value Reference Range Interpretation Comments POC LACTIC ACID (test code = < 0.3 mmol/l 0.9-1.7 L POCLAC) CBC W/AUTO [id number] 05:41:00 Test Item Value Reference Range Interpretation [...] N NRBC#) COMMENTS: Daily while on HeparinPROTHROMBIN [id number] 05:29:00 Test Item Value Reference Range Interpretation [...] (to prevent recurrent infar ct). THROMBOPLASTIN TIME [id number] 05:29:00 Test Item Value Reference Range Interpretation Comments THROMBOPLASTIN TIME 57.6 Seconds 25.0-39.5 H Therape utic Range: PARTIAL (test code = 50.4 - 88.3 Seconds PTT) Effective 06/06/2018 BASIC METABOLIC [id number] 05:29:00 Test Item Value Reference Range Interpretation [...] (test code = LDL) NEAR OPTIM AL/ABOVE [id number] [id number] 89 HIGH>RT=977 DOROTA Y HIGH*Guidelines provided by the National Choles terol EducationProgra m Adult Treatment Panel III - XR CHEST 1 [id number] 00:00:00 [facility] : 1955 Sex: M FAX: Ludin John [phone] [place]: St: ADM FAX: Sam Mckoy MD [phone] FAX: Albino Castillo MD [phone] Name: MARY DALY [facility] : 1955 Age/S: 66/M [address] [place] [address] Unit #: [id number] Loc: G.220[address] [place] [address] Phys: Ludin Mccurdy MD Acct: [id number] Dis Date: Status: ADM IN PHONE #: [phone] Exam Date: 08/02/2022 1456 FAX #: [phone] Reason: COUNT EXAMS: CPT CODE: [id number] XR CHEST 1 V 33717 PROCEDURE INFORMATION: Exam: XR Chest Exam date and time:08/02/2022 2:37 PM Age: 66 years old Clinical indication: Device placement; Other: Count; () TECHNIQUE: Imaging protocol: Radiologic exam of the chest. Views: 1 view. COMPARISON: CT CHEST W/O CONTRAST 07/28/2022 12:46 PM FINDINGS: Tubes, catheters and devices: Support lines and tubes appear in satisfactory position. Limited visualization of the right upper lung due to overlying pacer pad. Shallow inspiration accentuates the pulmonary vessels. Lungs: See "Tubes, catheters and devices" finding. Pleural spaces: No appreciable pleural effusion or pneumothorax. Heart/Mediastinum: Cardiomegaly. Interval coronary artery bypass. Possible epicardial wires. Bones/joints: Sternotomy wires. IMPRESSION: No retained surgical needle is seen. at 1504 Reported and signed by: Gilmer Childs M.D. CC: Ludin Mccurdy MD; Sam Price MD; Albino Torre MD Technologist: Faina Castellon, RT(R); Aleah Pillai, RT(R) Trntnrd Date/Time/By: 08/02/2022 (1506) : By: GeronimoTTV Orig Print D/T: S: 08/02/2022 (6514) PAGE 1 Signed Report- XR CHEST 1 [id number] 00:00:00 [facility] 1955 Sex: M FAX: Ludin John [phone] [place]: St: [facility] FAX: Sam Mckoy MD [phone] FAX: Albino Castillo MD [phone] Name: MARY DALY [facility] : 1955 Age/S: 66/M [address] [place] [address] Blvd Unit #: [id number] Loc: [address] [place] [address] Phys: Ludin Mccurdy MD Acct: [id number] Dis Date: Status: ADM IN PHONE #: [phone] Exam Date: 08/02/2022 1600 FAX #: [phone] Reason: Cardiac Surgery Post Op EXAMS: CPT CODE: [id number] XR CHEST 1 V 49347 PROCEDURE INFORMATION: Exam: XR Chest Exam date and time: 08/02/2022 3:39 PM Age: 66 years old Clinical indication: Other: Cardiac surgery post op TECHNIQUE: Imaging protocol: Radiologic exam of the chest. Views: 1 view. COMPARISON: CR XR CHEST 1V 08/02/2022 2:37 PM FINDINGS: Lungs: There is vascular congestion with opacity at the left lung base. A right IJ Bruneau-Anna Marie catheter tip projects overlying the central [...] Sam Price MD; Albino Torre MD Technologist: CHINTAN Elliott) Trnscrd Date/Time/By: 08/02/2022 (1655) : By: GeronimoTDO Orig Print D/T: S: 08/02/2022 (1655) PAGE 1 SignedReportTHROMBOPLASTIN TIME [id number] 07:07:00 Test Item Value Reference Range Interpretation Comments THROMBOPLASTIN TIME 58.7 Seconds 25.0-39.5 H Therape utic Range: PARTIAL (test code = 50.4 - 88.3 Seconds PTT) Effective 06/06/2018 BASIC METABOLIC [id number] 04:45:00 Test Item Value Reference Range Interpretation [...] the recommended for deborah for GFRby the [facility] on for Adults.The GFR will not calculate if th e sex is unknown or if thepatient's ag e is <18 years. CREATININE (test 0.9 mg/dL 0.6-1.3 N code = CREAT) CALCIUM (test code = 8.6 mg/dL 8.0-10.5 N CA) [id number] 04:45:00 Test Item Value Reference Range Interpretation Comments PHOSPHOROUS (test code = PHOS) 3.7 MG/DL 2.5-4.9 N [id number] 04:45:00 Test Item Value Reference Range Interpretation Comments MAGNESIUM (test code = MAG) 1.96 mg/dL 1.80-2.40 N CBC W/AUTO [id number] 04:30:00 Test Item Value Reference Range Interpretation [...] NRBC#) COMMENTS: Daily while on HeparinTHROMBOPLASTIN TIME [id number] 01:08:00 Test Item Value Reference Range Interpretation Comments THROMBOPLASTIN TIME 58.9 Seconds 25.0-39.5 H Therape utic Range: PARTIAL (test code = 50.4 - 88.3 Seconds PTT) Effective 06/06/2018 PLT RESPONSE TO [id number] 18:44:00 Test Item Value Reference Range Interpretation [...] rejected by our instrumentation . THROMBOPLASTIN TIME [id number] 18:26:00 Test Item Value Reference Range Interpretation Comments THROMBOPLASTIN TIME 81.9 Seconds 25.0-39.5 H Therape utic Range: PARTIAL (test code = 50.4 - 88.3 Seconds PTT) Effective 06/06/2018 COMMENTS: DRAW PTT 6 HOURS AFTER INITIATION OF HEPARINPROTHROMBIN [id number] 10:52:00 Test Item Value Reference Range Interpretation [...] IF NOT ALREADY DONE WITHIN LAST 24 HOURSCB W/AUTO [id number] 10:38:00 Test Item Value Reference Range Interpretation [...] 0-100 N code = BNP) COMPREHENSIVE METABOLIC [id number] 03:45:00 Test Item Value Reference Range Interpretation [...] code = ALKP) COVID 19 Asymptomatic IH [id number] 03:42:00 Test Item Value Reference Range Interpretation Comments COVID 19 Asymptomatic Negative Negative A nega tive result is IH AG (test code = presumpti ve and should COVNONPUIAG) be confirmedwit h an FDA authorized mole cular assay, if neces renato forpatient velma gement.A positive result does not rule out co-inf [...] or waivedcomplexit y tests. PLT RESPONSE TO [id number] 03:32:00 Test Item Value Reference Range Interpretation [...] be rejected by our instrumentation . PROTHROMBIN [id number] 03:31:00 Test Item Value Reference Range Interpretation [...] (to prevent recurrent infar ct). THROMBOPLASTIN TIME [id number] 03:31:00 Test Item Value Reference Range Interpretation Comments THROMBOPLASTIN TIME 28.3 Seconds 25.0-39.5 N Therape utic Range: PARTIAL (test code = 50.4 - 88.3 Seconds PTT) Effective 06/06/2018 CBC W/AUTO [id number] 03:21:00 Test Item Value Reference Range Interpretation [...] REQUIRED (test code NO = MDIFF) - CTA [id number] 00:00:00 [facility] : 1955 Sex: M Name: MARY DALY : 1955 Age/S: 66 / M [address] [place] [address] Blvd Unit #: [id number] Loc: [place] [address] Phys: WillinghamLukasGreenFrieda MAMMALOGIST Acct: [id number] Dis Date: Status: ADM IN PHONE #: [phone] Exam Date: 07/29/2022 1704 FAX #: [phone] Reason: temporal arteritis EXAMS: CPT CODE: [id number] CTA HEAD 26634 PROCEDURE INFORMATION: Exam: CTA Head With Contrast, ArteriographyExam date and time: 07/29/2022 4:55 PM Age: [...] is matched to clinical indication); or iterative recons truction. Contrast material: CIKH495; Contrast volume: 100 ml; Contrast route: INTRAVENOUS [...] DALY : 1955 Age/S: 66 / M [address] [place] [address] Blvd Unit #: [id number] Loc: [place] [address]Plsn: Frieda Abdi MAMMALOGIST Acct: [id number] Dis Date: Status: ADM IN PHONE #: [phone] ExamDate: 07/29/20221703 FAX #: [phone] Reason: temporal arteritis EXAMS: CPT CODE: [id number] CTA HEAD 66378 (Continued) Left vertebral artery: Unremarkable course and patency. No occlusion or significant stenosis. No aneurysm. Basilar artery: Unremarkable course and patency. No occlusion or significant stenosis. No aneurysm. Right posterior cerebral artery: configuration Unremarkable courseand patency. No occlusion or significant stenosis. No aneurysm. Left posterior cerebral artery: Unremarkable course and patency. No occlusion or significant stenosis. No aneurysm. Dural venous sinuses:Unremarkably patent. Brain: No definite mass, mass effect, or midline shift. Cerebral ventricles: Mid line in position, normal caliber. Bones/joints: Unremarkable. No acute fracture. Soft tissues: Unremarkable. IMPRESSION: No flow-limiting stenosis or occlusion along major intracranial arterial vessels. No acute intracranial process nor bony injury PROCEDURE INFORMATION: Exam: CTA Neck With Contrast Exam date and time: 07/29/2022 4:55 PM Age: 66 years old Clinical indication:Other: Temporal arteritis TECHNIQUE: Imaging protocol: Computed tomographic angiography of the neck with contrast. 3D rendering (Not supervised by radiologist): MIP and/or 3D reconstructed images were created by the technologist. Radiation optimization: All CT scans at this facility use at least one of these dose optimization techniques: automated exposure control; mA and/or kV adjustment per patientsize (includes targeted exams where dose is matched to clinical indication); or iterative reconstruction. Contrast material: OFTI541; Contrast volume: 100 ml; Contrast route: INTRAVENOUS (IV); REPORTING DATA: Count of CT and Cardiac NM exams in prior 12 months: This patient has received [address] and0 known cardiac nuclear medicine studies in the 12 months prior to the current study. COMPARISON: [facility] 07/28/2022 10:49 AM FINDINGS: Lung apices: No concerning interstitial process. Visualized PAGE 2 Signed Report (CONTINUED) Name: MARY DALY : 1955 Age/S: 66 / M [address] [place] [address] Blvd Unit #: [id number] Loc: [place] [address] Phys: Frieda Abdi NPAcct: [id number] Dis Date: Status: ADM IN PHONE #: [phone] Exam Date: 07/29/20221703 FAX #: [phone] Reason: temporal arteritis EXAMS: CPT CODE: [id number] CTA HEAD 68641 (Continued) portions of central major pulmonary arteries [...] and proximal segment of this artery without flow-limitingstenosis. No stenosis of the extracranial segment. No [...] vessels.. at 1529 Reported and signed by: aJvier Bales M.D. PAGE 3 Signed Report (CONTINUED) Name: MARY DALY : 1955 Age/S: 66 / M [address] [place] [address] Unit #: [id number] Loc: [place] [address] Phys: Frieda Abdi MAMMALOGIST Acct: [id number] Dis Date: Status: ADM IN PHONE #: [phone] Exam Date: 07/29/2022 170 FAX #: [phone] Reason: temporal arteritis EXAMS: CPT CODE: [id number] CTA HEAD 97256 (Continued) CC: Sam Price MD; Albino Torre MD; Frieda Abdi NP Technologist:Katherin Poole, RT(R)(CT) CTDI: DLP: Trnscb Date/Time: 07/30/2022 (1528) t.[email or web address].AC53 Orig Print D/T: S: 07/30/2022 (1528) PAGE 4 Signed Report- CT ANGIO [id number] 00:00:00 [facility] : 1955 Sex: M Name:MARY DALY : 1955 Age/S: 66 / M [address] [place] [address] Unit #: [id number]: [place] [address] Phys: Frieda Abdi MAMMALOGIST Acct: [id number] Dis Date: Status: ADM IN PHONE #: [phone] Exam Date: 07/29/2022 1704 FAX #: [phone] Reason: temporal arteritis EXAMS: CPT CODE: [id number] CT ANGIO NECK 29477 PROCEDURE INFORMATION: Exam: CTA Head With Contrast, [...] clinical indication); or iterative reconstruction. Contrast material: [id number]; Contrast volume: 100 ml; Contrast route: INTRAVENOUS [...] Unremarkable course and patency. No occlusion or sig nificant stenosis. No aneurysm. Right anterior cerebral artery: [...] artery: Unremarkable course and patency. Azygous A2 andA3 segments. No occlusion or significant stenosis. No aneurysm. Anterior communicating artery: Unremarkable patency POSTERIOR CIRCULATION: Right vertebral artery: Unremarkable course and patency. No occlusion or significant stenosis. No aneurysm. PAGE 1 Signed Report (CONTINUED) Name: MARY DALYHClear Powell : 1955 Age/S: 66 / M [address] [place] [address] Blvd Unit #: [id number] Loc: [place] Phys: Frieda Otero NP Acct: [id number] Dis Date: Status: ADM IN PHONE #: [phone] Exam Date: 07/29/2022 1704 FAX #: [phone] Reason: temporal arteritis EXAMS: CPT CODE: [id number] CT ANGIO NECK 46626 (Continued) Left vertebral artery: Unremarkable course and patency. No occlusion or significant stenosis. No aneurysm. Basilar artery: Unremarkable course and patency. No occlusion or significant stenosis. No aneurysm. Right posterior cerebral artery: configuration Unremarkable course and patency. No occlusion or significant stenosis. No aneurysm. Left posterior cerebralartery: Unremarkable course and patency. No occlusion or significant stenosis. No aneurysm. Dural franko ous sinuses: Unremarkably patent. Brain: No definite mass, mass effect, or midline shift. Cerebral ventricles: Midline in position, normal caliber. Bones/joints: Unremarkable. No acute fracture. Soft tissues: Unremarkable. IMPRESSION: No flow-limiting stenosis or occlusion along major intracranial jon rial vessels. No acute intracranial process nor bony injury PROCEDURE INFORMATION: Exam: CTA Neck With Contrast Exam date and time: 07/29/2022 4:55 PM Age: 66 years old Clinicalindication: Other: Temporal arteritis TECHNIQUE: Imaging protocol: Computed tomographic angiographyof the neck with contrast. 3D rendering (Not supervised by radiologist): MIP and/or 3D reconstructedimages were created by the technologist. Radiation optimization: All CT scans at this facility use at least one of these dose optimization techniques: automated exposure control; mA and/or kV adjustment per patient size (includes targeted exams where dose is matched to clinical indication); or iterative reconstruction. Contrast material: PGSR434; Contrast volume: 100 ml; Contrast route: INTRAVENOUS (IV); REPORTING DATA: Count of CT and Cardiac NM exams in prior 12 months: This patient has received 1known CT and 0 known cardiac nuclear medicine studies in the 12 months prior to the current study. COMPARISON: [facility] 07/28/2022 10:49 AM FINDINGS: Lung apices: No concerning interstitial process. Visualized PAGE 2 Signed Report (CONTINUED) Name: [facility] [place] [facility] 1955 Age/S: 66 / M [address] [place] [address] Unit #: [id number] Loc: [place] [address] Phys: Frieda Abdi MAMMALOGIST Acct: [id number] Dis Date: Status: ADM IN PHONE #: [phone] Exam Date: 07/29/2022 170 FAX #: [phone] Reason: temporal arteritis EXAMS: CPT CODE: [id number] CT ANGIO NECK 99624 (Continued) portions of central major pulmonary arteries are patent without filling defect. Widenedupper mediastinum compatible with lipomatosis. Great vessels: Unremarkably patent along their proximal segments, and unremarkable takeoff from patent aortic arch. Right common carotid artery: Unremarkable course and patency. No stenosis. No dissection or occlusion. Right internal carotid artery: Unremarkable course and patency. Increased calcification along origin and proximal segment of this arterywithout flow-limiting stenosis. No stenosis of the extracranial segment. No dissection or occlusion.Right external carotid artery: Unremarkable course and patency. [...] Right vertebral artery: Unremarkable course and patency. Nostenosis. No dissection or occlusion. Left vertebral artery: Unremarkable course and patency. No stenosis. No dissection or occlusion. Soft tissues: Normal. No significant soft tissue swelling. Bones/j oints: Unremarkable bony alignment along cervical spine with multilevel degenerative changes could, and prior ACDF in C5 and C6 levels with interbody fusion in the intervening disc level.. IMPRESSION: No flow-limiting stenosis or occlusion along major extracranial arterial vessels.. at 1529 Reported and signed by: Javier Bales M.D. PAGE 3 Signed Report (CONTINUED) Name: MARY DALY : 1955 Age/S: 66 / M[address] Unit #: [id number] Loc: [place] [address] Phys: Frieda Abdi MAMMALOGIST Acct: [id number] Dis Date: Status: ADM IN PHONE #: [phone] Exam Date: 07/29/2022 1704 FAX #: [phone] Reason: temporal arteritis EXAMS: CPT CODE: [id number] CT ANGIO NECK 18154 (Continued) CC: Sam Price MD; Albino Torre MD; Frieda Abdi NP Technologist:Katherin Poole, RT(R)(CT)CTDI: DLP: Trnscb Date/Time: 07/30/2022 (1528) t.SDR.AC53 Orig Print D/T: S: 07/30/2022 (1528) PAGE 4 Signed ReportCBC W/MANUAL [id number] 11:07:00 Test Item Value Reference Range Interpretation [...] HGBA1C%) 6.2 %A1C 4.8-6.0 H COMPREHENSIVE METABOLIC [id number] 04:59:00 Test Item Value Reference Range Interpretation [...] the recommended for deborah for GFRby the [facility] Kidney Foundati on for Adults.The GFR will [...] = ALKP) UA RFLX MICR CULT IF [id number] 20:41:00 Test Item Value Reference Range Interpretation [...] Dysuria/FrequencySpecimen Description: CLEAN CATCH- CT CHEST W/O [id number] 16:57:00 [facility] : 1955 Sex: M Name: MARY DALY : 1955 Age/S: 66 / M [address] [place] [address] Unit #: [id number] Loc: [place] [address] Phys: Rosalind Mendez Physic Acct: [id number] Dis Date: Status: ADM IN PHONE#: [phone] Exam Date: 07/28/2022 130 FAX #: [phone] Reason: CAD, R/O Stenosis, EXAMS: CPT CODE: [id number] CT CHEST W/O CONTRAST [address] CHEST WITHOUT CONTRAST HISTORY: CAD, [...] artery calcification. Otherwise, no significant chest abnormalities. [id number] Reported and signed by: Titus Choudhary M.D. PAGE 1 Signed Report (CONTINUED) Name: MARY DALY : 1955 Age/S: 66 / M [address] [place] [address] Unit #: [id number] Loc: [place] [address] Phys: Rosalind Mendez Physic Acct: [id number] Dis Date: Status: ADM IN PHONE #: [phone] Exam Date: 07/28/20221302 FAX #: [phone] Reason: CAD, R/O Stenosis, EXAMS: CPT CODE: [id number] CT CHEST W/O CONTRAST 19289 (Continued) CC: Sam Price MD; Albino Torre MD; Rosalind Mendze Technologist:Katherin Poole, RT(R)(CT) CTDI: DLP: Trnscb Date/Time: 07/28/2022 (1656) [id number] Orig Print D/T: S: 07/28/2022 (1249) PAGE 2 Signed ReportPLT RESPONSE TO [id number] 10:08:00 Test Item Value Reference Range Interpretation [...] by our instrumentation . - DUP VE[facility] [id number] 00:00:00 [facility] 1955 Sex: M Name: MARY DALY [facility] [place] : 1955 Age/S: 66 / M [address] [place] [address] Bl Unit #: [id number] Loc: [place] [address] Phys: Rosalind Mendez Acct: [id number] Dis Date: Status: ADM IN PHONE #: [phone] Exam Date: 07/28/2022 1144 FAX #: [phone] Reason: Bilateral vein mapping. EXAMS: CPT CODE: [id number] [facility] [place] [place] [address] PROCEDURE INFORMATION: Exam: US Duplex Lower Extremity Veins; Vein mapping Exam date and time: 07/28/2022 11:04 AM Age: 66 years old Clinical indication: Screening exam; Pre op; Additional info: Bilateral vein mapping. TECHNIQUE: Imaging protocol: Vein mapping performed of the greater saphenous veins bilaterally. Measurements [...] Evelin Turner RDMS(AB) Trnscb Date/Time: 07/28/2022 (1155) t.[email or web address].CS18 Orig Print D/T: S: 07/28/2022 (115) Probe: PAGE 1 Signed Report- [facility] [id number] 00:00:00 [facility] 1955 Sex: M Name: MARY DALY [facility] : 1955 Age/S: 66 / M [address] [place] [address] Unit #: [id number] Loc: [place] [address] Phys: Rosalind Mendez Acct: [id number] Dis Date: Status: ADM IN PHONE#: [phone] Exam Date: 07/28/2022 1144 FAX #: [phone] Reason: CAD, R/O Stenosis, EXAMS: CPT CODE: [id number] [facility] [place] [address] PROCEDURE INFORMATION: Exam: US Duplex Bilateral Extracranial [...] ratio 0.6 Vertebral flow is antegrade . External carotid artery is patent. LEFT: Plaque is noted in the left bulb region. ICA PSV 94 cm/sec CCA PSV 125 cm/sec ICA/CCA ratio 0.7 Vertebral flow is antegrade . External carotid artery is patent.IMPRESSION: 1. No ultrasound evidence for hemodynamically significant stenosis to either carotid artery. Consensus panel Doppler US criteria for diagnosis of ICA stenosis: Stenosis (%) ICA PSV (cm/sec) ICA/CCA ratio <50 <180 <2.0 50-69 180-230 2.0-4.0 >70 but less than >230 >4.0 PAGE 1 Signed Report (CONTINUED) Name: MARY DALY [facility] Aleah Powell : 1955 Age/S: 66 / M [address] [place] [address] Unit #: [id number] Loc: [place] [address] Phys: Rosalind Mendez Acct: [id number] Dis Date: Status: ADM IN PHONE #: [phone] Exam Date: 07/28/2022 1144 FAX #: [phone] Reason: CAD, R/O Stenosis, EXAMS: CPT CODE: [id number] [place] [address] (Continued) near occlusion Near occlusion High, low, or Variable undetectable at 1158 Reported and signed by: Kong Marrero M.D. 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[facility] - XR CHEST 2 [id number] 00:00:00 [facility] 1955 Sex: M FAX: Sam Mckoy MD [phone] [place]: St: PRE FAX: Albino Castillo MD [phone] Name: MARY DALY [place] : 1955 Age/S: 66/M [address] [place] [address] Blvd Unit #: [id number] Loc: [place] [address] Phys: Sam Price MD Acct: [id number] Dis Date: Status: PRE [facility] [place] PHONE #: [phone] Exam Date: 07/23/2022 1629 FAX #: [phone] Reason: PREOP EXAMS: CPT CODE: [id number] XR CHEST 2 V 40092 PROCEDURE INFORMATION: Exam: XR Chest Exam date and time: 07/23/2022 4:05 PM Age: 66 years old Clinical indication: Pre-operative exam; Cardiovascular screening and respiratory screening exam; Additional info: Preop TECHNIQUE: Imaging protocol: Radiologic exam of the chest. Views: 2 views. PA and Lateral COMPARISON: No relevant prior studies available. FINDINGS: Lungs: Normal lung volumes. No consolidation. Pleural spaces: No pleural effusion. No pneumothorax. Heart/Mediastinum: The cardiomediastinal silhouette is within normal limits. Pulmonary vasculature is unremarkable. Atherosclerotic calcificationof the aorta. Bones/joints: Fusion hardware the lower cervical spine is partially visualized. No acute osseous abnormality. IMPRESSION: No acute cardiopulmonary disease. at 0717 Reported and signed by: Cindy Reis M.D. CC: Sam Price MD; Albino Torre MD Technologist: RT Earl(R) Trnscrd Date/Time/By: 07/24/2022 (07) : By: [email or web address] Orig Print D/T: S: 07/24/2022 (716) PAGE 1 Signed ReportPROTHROMBIN TIME 2022-07-23 16:55:00 Test Item Value Reference Range Interpretation [...] (to prevent recurrent infar ct). BASIC METABOLIC [id number] 16:51:00 Test Item Value Reference Range Interpretation [...] 8.9 mg/dL 8.0-10.5 N CA) CBC W/AUTO [id number] 16:43:00 Test Item Value Reference Range Interpretation [...] Notes Date/Time Note Provider Source 2022-08-31 14:37:00-00:00 [id number] [place] [address] PATIENT NAME: MARY DALY ADMIT DATE: 08/16/22 ACCOUNT NO: [id number] ROOM NO: [id number] AGE: 66 REPORT TYPE: 360 - QUERY RESPONSE DOCUMENT SEX: M ADMITTING PHYSICIAN:Ludin Mccurdy MD ATTENDING PHYSICIAN:Ludin Mccurdy MD Provider Query QUERY TEXT: Specificity IP Debridement 360MD Query related questions should be directed to: Kiarra welch [facility] Coding Query Helpline Based on your clinical [...] MARY DALY 5 2022-08-25 14:43:00-00:00 [facility] ([facility]) Discharge Summary REPORT#:[id number] REPORT STATUS: Signed DATE:08/25/22 TIME: 1443 PATIENT: MARY DALY UNIT #: [id number] ROOM/BED: [place] [address] : [birth year] AGE: 67 SEX: M ATTEND: Siri Mccurdy MD ADM AUTHOR: Rosalind Mendez Physic * ALL edits or amendments must be made on the el Remedi [employer]/computer document * General Information Discharge date: 08/25/22 [...] PICC line placed Home antibiotics arranged by adult protective caseworker Pending home wound vac Encourage mobilization and [...] 2-3 weeks at 1445 at 1351 RPT #:[id number] END OF REPORT 2022-08-25 13:19:00-00:[address] [facility] ([facility]) Infectious Dis. Progress Note REPORT#:[id number] REPORT STATUS: Signed DATE:08/25/22 TIME: 1319 PATIENT: MARY DALY UNIT #: [id number] ROOM/BED: [place] [address] : 53 AGE: 66 SEX: M ATTEND: Siri Mccurdy MD ADM AUTHOR: Dafne Granda MD * ALL edits or amendments must be made on the [employer] document * Subjective HPI: This is a [...] of breath, vomiting. Portions of this section levi álvarez scribed [...] 1053 Resp 18 07/ 1053 FiO2 21 08/23 202 O2 Flow Rate 2 08/16 1400 Vital [...] % (Auto) (14.0 - 32.0 %) 24.6 Sanders % (Auto) (4.8 - 9.0 %) 11.8 H Eos % (Auto) (0.3 - 3.7 %) 3.4 Baso % (Auto) (0.0 - 2.0 %) 0.7 Neut # (Auto) (2.0 - 7.6 x10 3/uL) 5.40 Lymph # (Auto) (1.0 - 3.8 x10 3/uL) 2.25 Sanders # (Auto) (0.1 - 0.8 x10 3/uL) [...] (Auto) (14.0 - 32.0 %) 24.6 23.2 Sanders % (Auto) (4.8 - 9.0 %) 11.8 H 12.2 H Eos % (Auto) (0.3 - 3.7 %) 3.4 3.3 Baso % (Auto) (0.0 - 2.0 %) 0.7 0.5 Neut # (Auto) (2.0 - 7.6 x10 3/uL) 5.40 5.67 Lymph # (Auto) (1.0 - 3.8 x10 3/uL) 2.25 2.18 Sanders # (Auto) (0.1 - 0.8 x10 3/uL) [...] Report Impression - Status: SIGNED Entered: 08/24/2022 0717 IMPRESSION: 1. Ttpo-aa-rzzxiytmjk enlarged cardiac silhouett e. 2. Mild interstitial pulmonary edema versus infi ltrates. Impression By: [email or web address] - Oracio Stoner M.D. Medication(s) Ordered: Anti-Infective Agents Sig/Cory Start time Last Medication Dose Route Stop Time Status Admin Cefazolin Sodium 2 GM Q8H 08/17 1000 AC 08/25 IV 08/26 0959 1021 Blood Formation,Coagulation Sig/Cory Start time Last Medication Dose Route Stop Time Status Admin Clopidogrel Bisulfate 75 MG DAILY 08/16 09 AC 08/25 PO 09/15 0859 0829 Cardiovascular Drugs Sig/Cory Start time Last Medication Dose Route Stop Time Status Admin Amiodarone HCl 200 MG DAILY 08/16 09 AC 08/25 PO 09/15 0859 0829 Atorvastatin Calcium 40 MG 2100 08/15 2100 AC 0 / PO 09/14 205 2113 Metoprolol Tartrate 12.5 MG BID 08/15 2100 AC 0 08/25 PO 09/14 205 0829 Central Nervous System Agents Sig/Cory Start [...] 50 ML ASDIR PRN 08/16 1330 AC 07 IV 09/15 1329 2114 Magnesium Sulfate/ 100 ML ASDIR PRN 08/16 1330 AC Dextrose IV 09/15 1329 Aspirin 81 MG DAILY 08/16 09 AC 08/25 PO 09/15 0859 0829 Electrolytic, Caloric, And Pearl Sig/Cory Start time Last Medication Dose Route Stop Time Status Admin Sodium Chloride 10 ML BID 08/18 2100 AC 08/25 IV 09/17 2058 0830 Sodium Chloride 10 ML ASDIR PRN [...] 1 DROP QID 08/17 1300 AC 0 05 ose Sodium EACH EYE 09/16 1259 0830 Gastrointestinal Drugs Sig/Cory Start time Last Medication Dose Route Stop Time Status Admin Polyethylene Glycol 17 GM DAILY 08/17 0900 AC 08/22 PO 09/16 0859 1013 Docusate Sodium 100 MG BID 08/16 2100 AC 08/25 PO 09/15 Sennosides 17.2 MG BEDTIME 08/16 2100 AC 08/24 PO 09/15 Ondansetron HCl 4 MG Q6H PRN PRN 08/16 1330 AC IV 09/15 1329 Pantoprazole 40 MG DAILY PRN 08/16 1999 AC 5 PO 09/14 1958 08 Hormones And Synthetic Substit Sig/Cory Start time Last Medication Dose Route Stop Time Status Admin Glucagon 1 MG ASDIR PRN 08/16 1330 AC IM 09/15 132 Prednisone 1 MG TID 08/15 2099 AC 08/25 PO 09/14 Recent Impressions: RADIOLOGY - XR CHEST 1 V 08/24 0551 Report Impression - Status: SIGNED Entered: 08/24/2022 0734 IMPRESSION: 1. Rzyc-gv-tjuhxlsbuc enlarged cardiac silhouett e. 2. Mild interstitial pulmonary edema versus infi ltrates. Impression By: [email or web address] - Oracio Stoner M.D. Portions of this section wer e scribed by Ro Yost on 08/25/22 at 1319 Treatment Prophylaxis Treatment Prophylaxis Lines: PICC (08/20) Portions of this section wer e scribed [...] TILL 09/27/22 08/25/22: on Cefazolin til 09/27/22 adult protective caseworker to arrange Iv abx thru [facility] and IP H home health; wound vac to arranged Portions of this section wer e scribed by Ro Yost on 08/25/22 at 1319 at 0847 RPT #:[id number] END OF REPORT 2022-08-25 06:59:00-00:00 [facility] ([facility]) Cardiology Progress Note REPORT#:[id number] REPORT STATUS: Signed DATE:08/25/22 TIME: 658 PATIENT: MARY DALY UNIT #: [id number] ROOM/BED: [place] [address] : 53 AGE: 66 SEX: M ATTEND: Siri Mccurdy MD ADM AUTHOR: Denton Chaparro MD * ALL edits or amendments must be made on the [employer]/computer document * Subjective Chief complaint: Pain at [...] 07/04 2200 63 16 145/74 103 93 08/24 2125 65 26 162/77 111 97 07/ 1922 98.1 66 17 147/75 0.0 96 08/24 1921 66 22 147/75 105 96 / 1603 97.9 68 16 128/70 89 97 / 1125 98.2 68 16 136/69 91 96 07/ 0736 97.9 69 20 135/72 0.0 93 Room air 08/24 0732 95 Room air PATIENT WEIGHT: Weight (lb): 176 Weight (oz): 12.97 Weight (kg): 80.200 Medications: Active Meds + DC'd Last 24 Hrs Tramadol HCl (ULTRAM) 25 MG Q6H PRN PO Sodium Chloride (SODIUM CHLORIDE) 10 ML BID IV Sodium Chloride (SODIUM CHLORIDE) 10 ML ASDIR MA N IV Carboxymethylcellulose Sodium (REFRESH TEARS) 1 [...] % (Auto) (14.0 - 32.0 %) 24.6 Sanders % (Auto) (4.8 - 9.0 %) 11.8 H Eos % (Auto) (0.3 - 3.7 %) 3.4 Baso % (Auto) (0.0 - 2.0 %) 0.7 Neut # (Auto) (2.0 - 7.6 x10 3/uL) 5.40 Lymph # (Auto) (1.0 - 3.8 x10 3/uL) 2.25 Sanders # (Auto) (0.1 - 0.8 x10 3/uL) [...] Denton Chaparro MD on at 0700 RPT #:[id number] END OF REPORT 2022-08-25 05:20:00-00:[address] [facility] ([facility]) Cardiothoracic Surgery Prog REPORT#:[id number] REPORT STATUS: Signed DATE:08/25/22 TIME: 05 PATIENT: MARY DALY UNIT #: [id number] ROOM/BED: 3353-1 : 53 AGE: 66 SEX: M ATTEND: Siri Mccurdy MD ADM AUTHOR: Rosalind Mendez Physic * ALL edits or amendments must be made on the el [employer]ronic/computer document * General Post-op: day 9 Status [...] Pulse Ox 96 08/25 0350 B/P 144/75 / 0350 B/P Mean 0.0 / 0350 Temp 98.4 / 0350 Pulse 57 / 0350 Resp 16 08/25 0350 O2 Delivery [...] PICC line placed Home antibiotics arranged by adult protective caseworker Pending home wound vac Encourage mobilization and [...] examined by Dr. Mccurdy. at 1432 at 1841 RPT #:[id number] END OF REPORT 2022-08-24 11:11:00-00:00 [facility] Cardiology Progress Note REPORT#:[id number] REPORT STATUS: Signed DATE:08/24/22 TIME: 1111 PATIENT: MARY DALY UNIT #: [id number] ROOM[address]: [address] : 53 AGE: 66 SEX: M ATTEND: Siri Mccurdy MD ADM AUTHOR: Denton Chaparro MD * ALL edits or amendments must be made on the [employer]/computer document * Subjective Chief complaint: Pain at incisonal site Objective General VS/I O: 24 hour I O ending at 0700: 07/04 0700 07 1900 Intake Total 250 650 [...] Sodium Chloride (SODIUM CHLORIDE) 10 ML ASDIR MA N IV Carboxymethylcellulose Sodium (REFRESH TEARS) 1 [...] no rafat a Results Findings/Data: Laboratory Tests 08/24 0402 Chemistry Sodium (134 - 147 mEq/L) 138 [...] % (Auto) (14.0 - 32.0 %) 23.2 Sanders % (Auto) (4.8 - 9.0 %) 12.2 H Eos % (Auto) (0.3 - 3.7 %) 3.3 Baso % (Auto) (0.0 - 2.0 %) 0.5 Neut # (Auto) (2.0 - 7.6 x10 3/uL) 5.67 Lymph # (Auto) (1.0 - 3.8 x10 3/uL) 2.18 Sanders # (Auto) (0.1 - 0.8 x10 3/uL) [...] x10 3/uL) 0.0 0 Laboratory Tests 08/24 401 Chemistry Magnesium (1.80 - 2.40 mg/dL) 1.98 Radiology data: Recent Impressions: RADIOLOGY - XR CHEST 1 V 08/24 0551 Report Impression - Status: SIGNED Entered: 08/24/2022 0734 IMPRESSION: 1. Tqkd-xp-wfemzecosz enlarged cardiac silhouett e. 2. Mild interstitial [...] Denton Chaparro MD on at 1112 RPT #:[id number] END OF REPORT 2022-08-24 10:03:00-00:[address] [facility] ([facility]) Infectious Dis. Progress Note REPORT#:[id number] REPORT STATUS: Signed DATE:08/24/22 TIME: 1003 PATIENT: MARY DALY UNIT #: [id number] ROOM/BED: [place] [address] : 53 AGE: 66 SEX: M ATTEND: Siri Mccurdy MD ADM AUTHOR: Dafne Granda MD * ALL edits or amendments must be made on the [employer]/computer document * Subjective HPI: This is a [...] Resp B/P B/P Mean Pulse Ox FiO2 07/03-07/04 97.9-98.2 61-76 13-46 128-168/69-78 0.0-111 91-97 21 Last Documented: Result Date Time Pulse Ox 97 07/04 1603 B/P 128/70 07/04 1603 B/P Mean 89 07/04 1603 Temp 97.9 07/04 1603 Pulse 68 07/04 1603 Resp 16 07/04 1603 O2 Delivery Room air 07/ 0736 FiO2 21 08/23 2024 O2 Flow Rate 2 08/16 1400 Vital Signs: Date Time Temp Pulse Resp B/P B/P Pulse O2 O2 F low FiO2 Mean Ox Delivery Rate 07/04 1603 [...] 95 07/03 2100 76 14 97 07/03 202 96 Room air 21 07/03 1945 98.2 [...] - 2.40 mg/dL) 1.98 Laboratory Tests 08/24 401 Hematology WBC (4.5 - 11.0 x10 3/uL) [...] % (Auto) (14.0 - 32.0 %) 23.2 Sanders % (Auto) (4.8 - 9.0 %) 12.2 H Eos % (Auto) (0.3 - 3.7 %) 3.3 Baso % (Auto) (0.0 - 2.0 %) 0.5 Neut # (Auto) (2.0 - 7.6 x10 3/uL) 5.67 Lymph # (Auto) (1.0 - 3.8 x10 3/uL) 2.18 Sanders # (Auto) (0.1 - 0.8 x10 3/uL) [...] WBC (4.5 - 11.0 x10 3/uL) 9.4 08/24 0402 Active Meds + DC'd Last 24 Hrs Tramadol HCl (ULTRAM) 25 MG Q6H PRN PO Sodium Chloride (SODIUM CHLORIDE) 10 ML BID IV Sodium Chloride (SODIUM CHLORIDE) 10 ML ASDIR MA N IV Carboxymethylcellulose Sodium (REFRESH TEARS) 1 [...] HOME. CONT CEF AZOLIN TILL 09/27/22 at 7632 RPT #:[id number] END OF REPORT 2022-08-24 07:16:00-00:00 [facility] Cardiothoracic Surgery Prog REPORT#:[id number] REPORT STATUS: Signed DATE:08/24/22 TIME: 715 PATIENT: MARY DALY UNIT #: [id number] ROOM/BED: [facility] : 53 AGE: 66 SEX: M ATTEND: Siri Mccurdy MD ADM AUTHOR: Rosalind Mendez Physic * ALL edits or amendments must be made on the [employer]/computer document * General Post-op: day 8 Status [...] Ox 93 08/24 418 B/P 148/74 08/24 0419 B/P Mean 0.0 08/24 418 O2 Delivery Room air 08/24 418 Temp 98.2 08/24 418 Pulse 68 08/24 041 Resp 13 08/24 418 FiO2 21 08/23 2025 O2 Flow Rate [...] PICC line placed Home antibiotics arranged by adult protective caseworker Pending home wound vac Encourage mobilization and [...] wound VAC at 1138 at 1837 RPT #:[id number] END OF REPORT 2022-08-23 20:01:00-00:[address] [facility] ([facility]) Infectious Dis. Progress Note REPORT#:[id number] REPORT STATUS: Signed DATE:08/23/22 TIME: 2000 PATIENT: MARY DALY UNIT #: [id number] ROOM/BED: 3353-1 : 53 AGE: 66 SEX: [...] by Ro Yost on 08/23/22 at 2004 Objective General VS/I O: Vital Signs Date Temp Pulse Resp B/P B/P Mean Pulse Ox FiO2 08/22-08/23 97.9-98.2 61-76 13-24 117-164/70-85 0.0-104 92-99 [...] 67 22 148/76 99.9 92 Room air 07/03 0000 62 07/03 0000 23 149/78 104 94 07/02 2319 98.1 63 22 142/82 102.3 93 Room air 08/22 2038 97 Room air 21 08/22 24 150/79 104 95 24 hour I [...] % (Auto) (14.0 - 32.0 %) 21.3 Sanders % (Auto) (4.8 - 9.0 %) 11.0 H Eos % (Auto) (0.3 - 3.7 %) 2.4 Baso % (Auto) (0.0 - 2.0 %) 0.5 Neut # (Auto) (2.0 - 7.6 x10 3/uL) 6.83 Lymph # (Auto) (1.0 - 3.8 x10 3/uL) 2.26 Sanders # (Auto) (0.1 - 0.8 x10 3/uL) 1.17 H Eos # (Auto) (0.0 - 0.2 x10 3/uL) 0.26 H Baso # (Auto) (0.0 - 0.2 x10 3/uL) 0.05 Abs Immat Gran (auto) (0.00 - 0.03 x10 3/uL) 0. 06 H Add Manual Diff NO Immature Gran [...] (Auto) (14.0 - 32.0 %) 21.3 18.1 Sanders % (Auto) (4.8 - 9.0 %) 11.0 H 9.7 H Eos % (Auto) (0.3 - 3.7 %) 2.4 2.4 Baso % (Auto) (0.0 - 2.0 %) 0.5 0.3 Neut # (Auto) (2.0 - 7.6 x10 3/uL) 6.83 8.74 H Lymph # (Auto) (1.0 - 3.8 x10 3/uL) 2.26 2.30 Sanders # (Auto) (0.1 - 0.8 x10 3/uL) [...] (0.0 - 0.1 x10 3/uL) 0. 00 0.00 Recent Impressions: RADIOLOGY - XR CHEST 1 V 08/22 0803 Report Impression - Status: SIGNED Entered: 08/22/2022 08 IMPRESSION: Grossly stable exam. Impression By: Lewis Diana M.D. Medication(s) Ordered: Anti-Infective Agents Sig/Cory [...] HCl 200 MG DAILY 08/16 09 AC 3 PO 09/15 0859 0923 Atorvastatin Calcium 40 MG 2100 08/15 2100 AC 0 08/22 PO 09/14 Metoprolol Tartrate 12.5 MG BID [...] BID 08/18 2100 AC 08/23 IV 09/17 2058 0925 Sodium Chloride 10 ML ASDIR PRN [...] 1 DROP QID 08/17 1300 AC 0 08/23 ose Sodium EACH EYE 09/16 1259 [...] 0821 IMPRESSION: Grossly stable exam. Impression By: Lewis Diana M.D. Portions of this section wer [...] by Ro Yost on 08/23/22 at 2005 at 0818 RPT #:[id number] END OF REPORT 2022-08-23 07:11:00-00:00 [facility] ([facility]) Cardiology Progress Note REPORT#:[id number] REPORT STATUS: Signed DATE:08/23/22 TIME: 710 PATIENT: MARY DALY UNIT #: [id number] ROOM/BED: [place] [address] : 53 AGE: 66 SEX: M ATTEND: Siri Mccurdy MD ADM AUTHOR: Denton Chaparro MD * ALL edits or amendments must be made on the [employer]/computer document * Subjective Chief complaint: Pain at incisoonal site Objective General VS/I O: 24 hour I O ending at 0700: 03 0700 08/22 1900 Intake Total 3050 Output [...] 62 08/23 0000 23 149/78 104 94 / 2319 98.1 63 22 142/82 102.3 93 Room air 08/22 2038 97 Room air 21 08/22 2016 67 08/22 2017 24 150/79 104 95 / 1917 97.9 76 22 135/79 97.3 94 Room air 08/22 1657 98.4 89 16 156/81 105.8 98 Room air / 1147 98.2 65 20 148/80 102.7 98 Room air / 0804 98 Room air / 0802 97.7 77 20 138/86 103.6 95 Room air PATIENT WEIGHT: Weight (lb): 175 Weight (oz): 4.28 Weight (kg): 79.500 Medications: Active Meds + DC'd Last 24 Hrs Sterile Water (WATER FOR INJECTION) 10 ML .STK-M ED ONE IV (DC) Tramadol HCl (ULTRAM) 25 MG Q6H PRN PO Sodium Chloride (SODIUM CHLORIDE) 10 ML BID IV Sodium Chloride (SODIUM CHLORIDE) 10 ML ASDIR MA N IV Carboxymethylcellulose Sodium (REFRESH TEARS) 1 [...] Denton Chaparro MD on at 0711 RPT #:[id number] END OF REPORT 2022-08-23 05:37:00-00:[address] [facility] ([facility] Cardiothoracic Surgery Prog REPORT#:[id number] REPORT STATUS: Signed DATE:08/23/22 TIME: 536 PATIENT: MARY DALY UNIT #: [id number] ROOM/BED: [facility] : 53 AGE: 66 SEX: M ATTEND: Siri Mccurdy MD ADM AUTHOR: Rosalind Mendez Physic * ALL edits or amendments must be made on the el [employer]/computer document * General Post-op: day 7 Status [...] 08/23 0250 O2 Delivery Room air 08/23 0250 Temp 97.9 08/23 0250 Pulse 67 08/23 [...] PICC line placed Home antibiotics arranged by adult protective caseworker Pending home wound vac Encourage mobilization and [...] VAC arranged at 0716 at 1842 RPT #:[id number] END OF REPORT 2022-08-22 10:05:00-00:00 [facility] Cardiothoracic Surgery Prog REPORT#:[id number] REPORT STATUS: Signed DATE:08/22/22 TIME: 1005 PATIENT: MARY DALY UNIT #: [id number] ROOM/BED: [place] [address] : 53 AGE: 67 SEX: M ATTEND: Siri Mccurdy MD ADM AUTHOR: Ludin Mccurdy MD * ALL edits or amendments must be made on the el [employer]/computer document * General Post-op: day 6 Status [...] Result Date Time Pulse Ox 95 08/22 801 B/P 138/86 08/22 801 B/P Mean 103.6 08/22 08 O2 Delivery Room air 08/22 801 Temp 36.5 08/22 08 Pulse 77 08/22 08 Resp 20 08/22 08 FiO2 21 08/21 2038 O2 Flow Rate [...] Sodium Chloride (SODIUM CHLORIDE) 10 ML ASDIR MA N IV Carboxymethylcellulose Sodium (REFRESH TEARS) 1 [...] % (Auto) (14.0 - 32.0 %) 18.1 Sanders % (Auto) (4.8 - 9.0 %) 9.7 H Eos % (Auto) (0.3 - 3.7 %) 2.4 Baso % (Auto) (0.0 - 2.0 %) 0.3 Neut # (Auto) (2.0 - 7.6 x10 3/uL) 8.74 H Lymph # (Auto) (1.0 - 3.8 x10 3/uL) 2.30 Sanders # (Auto) (0.1 - 0.8 x10 3/uL) [...] Report Impression - Status: SIGNED Entered: 08/22/2022 08 IMPRESSION: Grossly stable exam. Impression By: GeronimoSWSerina [...] PICC line placed Home antibiotics arranged by adult protective caseworker Pending home wound vac Encourage mobilization and I-S use Discharge home once abx and wound vac arranged. 08/22/22 Patient doing well Afebirle Continue antibiotics Discharge home once wound vac set up Encourage I-S use and ambulation at 2031 RPT #:[id number] END OF REPORT 2022-08-21 13:45:00-00:00 [facility] Cardiothoracic Surgery Prog REPORT#:[id number] REPORT STATUS: Signed DATE:08/21/22 TIME: 1345 PATIENT: MARY DALY UNIT #: [id number] ROOM/BED: 3353-1 : 53 AGE: 66 SEX: M ATTEND: Siri Mccurdy MD ADM AUTHOR: Ludin Mccurdy MD * ALL edits or amendments must be made on the el [employer]/computer document * General Post-op: day 5 Status [...] 154/79 08/21 1210 B/P Mean 0.0 08/21 1210 O2 Delivery Nasal cannula 08/21 1210 Temp 36.4 08/21 1210 Pulse 68 08/21 1210 Resp 12 08/21 1210 FiO2 21 08/19 [...] Sodium Chloride (SODIUM CHLORIDE) 10 ML ASDIR MA N IV Carboxymethylcellulose Sodium (REFRESH TEARS) 1 [...] % (Auto) (14.0 - 32.0 %) 20.2 Sanders % (Auto) (4.8 - 9.0 %) 10.0 H Eos % (Auto) (0.3 - 3.7 %) 3.8 H Baso % (Auto) (0.0 - 2.0 %) 0.7 Neut # (Auto) (2.0 - 7.6 x10 3/uL) 6.75 Lymph # (Auto) (1.0 - 3.8 x10 3/uL) 2.11 Sanders # (Auto) (0.1 - 0.8 x10 3/uL) [...] PICC line placed Home antibiotics arranged by adult protective caseworker Pending home wound vac Encourage mobilization and I-S use Discharge home once abx and wound vac arranged. at 1843 RPT #:[id number] END OF REPORT 2022-08-20 15:46:00-00:[address] [facility] ([facility] Infectious Dis. Progress Note REPORT#:[id number] REPORT STATUS: Signed DATE:08/20/22 TIME: 1545 PATIENT: MARY DALY UNIT #: [id number] ROOM/BED: [facility] : 53 AGE: 66 SEX: M ATTEND: Siri Mccurdy MD ADM AUTHOR: Leo Durand MD * ALL edits or amendments must be made on the el [employer]/computer document * Subjective HPI: This is a [...] % (Auto) (14.0 - 32.0 %) 23.0 Sanders % (Auto) (4.8 - 9.0 %) 12.2 H Eos % (Auto) (0.3 - 3.7 %) 3.3 Baso % (Auto) (0.0 - 2.0 %) 0.6 Neut # (Auto) (2.0 - 7.6 x10 3/uL) 6.29 Lymph # (Auto) (1.0 - 3.8 x10 3/uL) 2.41 Sanders # (Auto) (0.1 - 0.8 x10 3/uL) [...] Leo Durand MD on at 1547 RPT #:[id number] END OF REPORT 2022-08-20 15:46[facility]00[facility]00 [facility] RE[facility]#:[id number] REPORT STATUS: Signed DATE:08/20/22 TIME: 1546 PATIENT: MARY DALY UNIT #: [id number] ROOM/BED: G3353-1 : 53 AGE: 66 SEX: M ATTEND: Siri Mccurdy MD ADM AUTHOR: Ludin Mccurdy MD * ALL edits or amendments must be made on the [employer]/computer document * General Post-op: day 4 Status [...] Result Date Time Pulse Ox 97 08/20 152 B/P 170/84 08/20 1529 B/P Mean 0.0 08/20 152 O2 Delivery Room air 08/20 152 Temp 36.6 08/20 152 Pulse 66 08/20 1529 Resp 12 08/20 [...] Sodium Chloride (SODIUM CHLORIDE) 10 ML ASDIR MA N IV Carboxymethylcellulose Sodium (REFRESH TEARS) 1 [...] % (Auto) (14.0 - 32.0 %) 23.0 Sanders % (Auto) (4.8 - 9.0 %) 12.2 H Eos % (Auto) (0.3 - 3.7 %) 3.3 Baso % (Auto) (0.0 - 2.0 %) 0.6 Neut # (Auto) (2.0 - 7.6 x10 3/uL) 6.29 Lymph # (Auto) (1.0 - 3.8 x10 3/uL) 2.41 Sanders # (Auto) (0.1 - 0.8 x10 3/uL) [...] RADIOLOGY - XR CHEST 1 V 08/20 0601 Report Impression - Status: SIGNED Entered: 08/20/2022 8450 IMPRESSION: Grossly stable exam. Impression By: [email or web address] [...] approval for ho me antibiotics at 1855 RPT #:[id number] END OF REPORT 2022-08-20 07:02:00-00:00 [facility] Progress Note REPORT#:[id number] REPORT STATUS: Signed DATE:08/20/22 TIME: 07 PATIENT: MARY DALY UNIT #: [id number] ROOM/BED: 3353-1 : 53 AGE: 66 SEX: M ATTEND: Siri Mccurdy MD ADM AUTHOR: Denton Chaparro MD * ALL edits or amendments must be made on the [employer]/computer document * Subjective Chief complaint: Pain at [...] Sodium Chloride (SODIUM CHLORIDE) 10 ML ASDIR MA N IV Carboxymethylcellulose Sodium (REFRESH TEARS) 1 [...] RADIOLOGY - XR CHEST 1 V 08/19 856 Report Impression - Status: SIGNED Entered: 08/19/2022 [...] by Denton Chaparro MD on at [address] [facility] #:[id number] END OF REPORT 2022-08-19 16:08:00-00:00 [facility] ([facility]) Infectious Dis. Progress Note REPORT#:[id number] REPORT STATUS: Signed DATE:08/19/22 TIME: 1608 PATIENT: MARY DALY UNIT #: [id number] ROOM/BED: [place] [id number] : 53 AGE: 66 SEX: M ATTEND: Siri Mccurdy MD ADM AUTHOR: Leo Durand MD * ALL edits or amendments must be made on the [employer]/computer document * Subjective HPI: This is a [...] - 2.40 mg/dL) 1.92 Laboratory Tests 08/19 0358 Hematology WBC (4.5 - 11.0 x10 [...] % (Auto) (14.0 - 32.0 %) 23.0 Sanders % (Auto) (4.8 - 9.0 %) 12.5 H Eos % (Auto) (0.3 - 3.7 %) 2.2 Baso % (Auto) (0.0 - 2.0 %) 0.4 Neut # (Auto) (2.0 - 7.6 x10 3/uL) 5.67 Lymph # (Auto) (1.0 - 3.8 x10 3/uL) 2.13 Sanders # (Auto) (0.1 - 0.8 x10 3/uL) [...] Leo Durand MD on at 1609 RPT #:[id number] END OF REPORT 2022-08-19 13:45:00-00:00 [facility] Cardiothoracic Surgery Prog REPORT#:[id number] REPORT STATUS: Signed DATE:08/19/22 TIME: 1345 PATIENT: MARY DALY UNIT #: [id number] ROOM[address]BED: [address] : 53 AGE: 67 SEX: M ATTEND: Siri Mccurdy MD ADM AUTHOR: Ludin Mccurdy MD * ALL edits or amendments must be made on the el Remedi [employer]/computer document * General Post-op: day 3 (POD [...] Sodium Chloride (SODIUM CHLORIDE) 10 ML ASDIR MA N IV Carboxymethylcellulose Sodium (REFRESH TEARS) 1 [...] Acetaminophen (TYLENOL) 650 MG Q4H PRN PRN RECT AL Dextrose/Water (DEXTROSE 10% IN WATER) 125 ML [...] Q6H PRN PO Results Findings/Data: Laboratory Tests 06/29 0358 Chemistry Sodium (134 - 147 mEq/L) 137 [...] % (Auto) (14.0 - 32.0 %) 23.0 Sanders % (Auto) (4.8 - 9.0 %) 12.5 H Eos % (Auto) (0.3 - 3.7 %) 2.2 Baso % (Auto) (0.0 - 2.0 %) 0.4 Neut # (Auto) (2.0 - 7.6 x10 3/uL) 5.67 Lymph # (Auto) (1.0 - 3.8 x10 3/uL) 2.13 Sanders # (Auto) (0.1 - 0.8 x10 3/uL) [...] RADIOLOGY - XR CHEST 1 V 08/20 0757 Report Impression - Status: SIGNED Entered: 08/19/2022 [...] home a ntibiotics Discharge home soon at 203 RPT #:[id number] END OF REPORT 2022-08-19 07:09:00-00:00 [facility] Cardiology Progress Note REPORT#:[id number] REPORT STATUS: Signed DATE:08/19/22 TIME: 07 PATIENT: MARY DALY UNIT #: [id number] ROOM/BED: [place] [address] : 53 AGE: 66 SEX: M ATTEND: Siri Mccurdy MD ADM AUTHOR: Denton Chaparro MD * ALL edits or amendments must be made on the [employer]/computer document * Subjective Chief complaint: BETTER Objective [...] O2 Flow FiO2 Mean Ox Delivery Rate 08/19 0100 66 18 161/74 108 92 08/19 0000 98.3 Room air 08/19 0000 66 21 157/79 110 91 08/18 2300 68 18 166/77 111 92 08/18 2200 66 19 142/75 103 94 08/18 2100 68 23 160/77 111 92 08/18 2037 95 Room air 08/18 2000 97.8 Room air 08/19 1999 68 25 152/71 102 94 08/18 1903 68 28 150/73 105 92 08/18 1814 65 26 157/79 110 06/28 1717 64 23 156/73 103 95 08/18 [...] Sodium Chloride (SODIUM CHLORIDE) 10 ML ASDIR MA N IV Carboxymethylcellulose Sodium (REFRESH TEARS) 1 [...] Denton Chaparro MD on at 0709 RPT #:[id number] END OF REPORT 2022-08-18 21:36:00-00:[address] [facility] ([facility]) Infect Disease Consult Note REPORT#:[id number] REPORT STATUS: Signed DATE:08/18/22 TIME: 2135 PATIENT: MARY DALY UNIT #: [id number] ROOM/BED: [facility] : 53 AGE: 66 SEX: M ATTEND: Siri Mccurdy MD ADM AUTHOR: Leo Durand MD * ALL edits or amendments must be made on the el [employer]/computer document * History of Present Illness Requesting [...] Coronary artery dis ease, Hypertension, Dyslipidemia, Prior ND, Steroid use. Additional medical history: Temproal arteritis [...] % (Auto) (14.0 - 32.0 %) 17.1 Sanders % (Auto) (4.8 - 9.0 %) 8.3 Eos % (Auto) (0.3 - 3.7 %) 0.9 Baso % (Auto) (0.0 - 2.0 %) 0.2 Neut # (Auto) (2.0 - 7.6 x10 3/uL) 7.00 Lymph # (Auto) (1.0 - 3.8 x10 3/uL) 1.64 Sanders # (Auto) (0.1 - 0.8 x10 3/uL) [...] Leo Durand MD on at 2142 RPT #:[id number] END OF REPORT 2022-08-18 16:43:00-00:00 [facility] Cardiothoracic Surgery Prog REPORT#:[id number] REPORT STATUS: Signed DATE:08/18/22 TIME: 1642 PATIENT: MARY DALY UNIT #: [id number] ROOM/BED: [place] [address] : 53 AGE: 67 SEX: M ATTEND: Siri Mccurdy MD ADM AUTHOR: Ludin Mccurdy MD * ALL edits or amendments must be made on the [employer]/computer document * General Post-op: day 2 (POD [...] Sodium Chloride (SODIUM CHLORIDE) 10 ML ASDIR MA N IV Carboxymethylcellulose Sodium (REFRESH TEARS) 1 [...] PRN PO Results Findings/Data: Laboratory Tests 08/19 407 Chemistry Sodium (134 - 147 mEq/L) 138 [...] (1.80 - 2.40 mg/dL) 2.06 Laboratory Tests 08/19 407 Hematology WBC (4.5 - 11.0 x10 3/uL) [...] % (Auto) (14.0 - 32.0 %) 17.1 Sanders % (Auto) (4.8 - 9.0 %) 8.3 Eos % (Auto) (0.3 - 3.7 %) 0.9 Baso % (Auto) (0.0 - 2.0 %) 0.2 Neut # (Auto) (2.0 - 7.6 x10 3/uL) 7.00 Lymph # (Auto) (1.0 - 3.8 x10 3/uL) 1.64 Sanders # (Auto) (0.1 - 0.8 x10 3/uL) [...] RADIOLOGY - XR CHEST 1 V 08/18 0534 Report Impression - Status: SIGNED Entered: 08/18/2022 [...] change wound vac Labs reviewed Transfer to [facility] 1 at 2030 RPT #:[id number] END OF REPORT 2022-08-18 09:09:00-00:00 [facility] ([facility]) Clinical Note REPORT#:[id number] REPORT STATUS: Signed DATE:08/18/22 TIME: 908 PATIENT: MARY DALY UNIT #: [id number] ROOM/BED: [place] [address] : 51 AGE: 66 SEX: M ATTEND: Siri Mccurdy MD ADM AUTHOR: Leo Durand MD * ALL edits or amendments must be made on the [employer] document * Clinical Note Note: CHART REVIEWED CONSULT TO FOLLOW Electronically Signed by Leo Durand MD on at 0909 RPT #:[id number] END OF REPORT 2022-08-18 06:54:00-00:00 [facility] ([facility]) Cardiology Progress Note REPORT#:[id number] REPORT STATUS: Signed DATE:08/18/22 TIME: 653 PATIENT: MARY DALY UNIT #: [id number] ROOM/BED: [place] [address] : 53 AGE: 66 SEX: M ATTEND: Siri Mccurdy MD ADM AUTHOR: Denton Chaparro MD * ALL edits or amendments must be made on the [employer] document * Subjective Chief complaint: BETTER Objective General VS/I O: 24 hour I O ending at 0700: 08/18 0700 06/27 1900 Intake Total 480 820.00 Output Total [...] % (Auto) (14.0 - 32.0 %) 17.1 Sanders % (Auto) (4.8 - 9.0 %) 8.3 Eos % (Auto) (0.3 - 3.7 %) 0.9 Baso % (Auto) (0.0 - 2.0 %) 0.2 Neut # (Auto) (2.0 - 7.6 x10 3/uL) 7.00 Lymph # (Auto) (1.0 - 3.8 x10 3/uL) 1.64 Sanders # (Auto) (0.1 - 0.8 x10 3/uL) [...] 1. Mildly improved left mid-lower lung field op acities. 2. Right perihilar interstitial opacities may be slightly increased. Impression By: [email or web address] - Allan Diana M.D. Results: echo personally reviewed Diagnosis, Assessment Plan Free Text DxA P Notes Free Text DxA P Notes: 1. Coronary artery disease Status post coronary artery bypass graft surger y on 08/02/2022 2. Sternal wound drainage S/P wound surgery/debridement 3. Hypertension 4. Hyperlipidemia Electronically Signed by Denton Chaparro MD on at 0655 RPT #:[id number] END OF REPORT 2022-08-17 09:46:00-00:00 [facility] Cardiothoracic Surgery Prog REPORT#:[id number] REPORT STATUS: Signed DATE:08/17/22 TIME: 945 PATIENT: MARY DALY UNIT #: [id number] ROOM/BED: [place] [address] : 51 AGE: 67 SEX: M ATTEND: Siri Mccurdy MD ADM AUTHOR: Rosalind Mendez Physic * ALL edits or amendments must be made on the el [employer]/computer document * General Post-op: day 1 (POD [...] Dr Mccurdy. at 0654 at 2030 RPT #:[id number] END OF REPORT 2022-08-17 07:08:00-00:00 [facility] Cardiology Progress Note REPORT#:[id number] REPORT STATUS: Signed DATE:08/17/22 TIME: 707 PATIENT: MARY DALY UNIT #: [id number] ROOM/BED: [address] : 53 AGE: 66 SEX: M ATTEND: Siri Mccurdy MD ADM AUTHOR: Denton Chaparro MD * ALL edits or amendments must be made on the [employer] document * Subjective Chief complaint: BETTER Objective [...] F low FiO2 Mean Ox Delivery Rate 08/17 0600 [...] 0 .STK-MED ONE .ROUTE ( DC) Rocuronium Valdez (ZEMURON) 0 .STK-MED ONE IV ( DC) [...] L 7.1 L 5.2 L 6.2 L Sanders % (Auto) (4.8 - 9.0 %) 8.8 [...] 1.16 0.92 L 0.66 L 0.61 L Sanders # (Auto) (0.1 - 0.8 x10 3/uL) [...] Denton Chaparro MD on at 0709 RPT #:[id number] END OF REPORT 2022-08-16 19:24:00-00:00 [id number] [address] PATIENT NAME: MARY DALY ADMIT DATE: 08/16/22 ACCOUNT NO: [id number] ROOM NO: 3311 AGE: 66 REPORT TYPE: OPERATIVE REPORT SEX: M ADMITTING PHYSICIAN:Ludin Mccurdy MD ATTENDING PHYSICIAN:Ludin Mccurdy MD OPERATION DATE: 08/16/2022 PREOPERATIVE DIAGNOSIS: Sternal wound dehiscence . POSTOPERATIVE DIAGNOSIS: Sternal wound dehiscenc e. OPERATION: 1. Debridement of the sternal wound. 2. Placement of wound VAC. SURGEON: Ludin Mccurdy M.D. SWEATER OPERATOR: None. ANESTHESIA: General endotracheal anesthesia. ANESTHESIOLOGIST: [...] Dictated: 08/16/2022 19:24:54 Date Transcribed: 08/16/2022 22:41:00 /[facility] Receipt ID: [id number] Authenticated by Kenneth Mccurdy MD On 023 05:42:13 PM at 0542 PATIENT NAME: MARY DALY 63 2022-08-16 19:19:00-00:[address] [facility] ([facility]) Brief Op Note REPORT#:[id number] REPORT STATUS: Signed DATE:08/16/22 TIME: 1918 PATIENT: MARY DALY UNIT #: [id number] ROOM/BED: [place] [address] : 53 AGE: 66 SEX: M ATTEND: Siri Mccurdy MD ADM AUTHOR: Ludin Mccurdy MD * ALL edits or amendments must be made on the [employer]/computer document * Op/Inv Proc Note - Brief Pre-procedure diagnosis: Sternal wound dehesence Post-procedure diagnosis: same as pre procedure dx Procedures performed: Debridement of wound placement of woumd vac Primary Surgeon: Calli Compensation Coordinator(s): none Findings: following debribement the wound measured 5 cm x 2 cm x 1 cm, fascia deep Complications: none Estimated blood loss in ml's: 2 cc Specimens removed/altered: culture swab at 1921 RPT #:[id number] END OF REPORT 2022-08-16 18:03:00-00:00 [id number] [place] [address] PATIENT NAME: MARY DALY ADMIT DATE: 08/16/22 ACCOUNT NO: [id number] ROOM NO: [facility] AGE: 66 REPORT TYPE: eECHOCARDIOGRAM REPORT SEX: M ADMITTING PHYSICIAN:Ludin Mccurdy MD ATTENDING PHYSICIAN:Ludin Mccurdy MD *[facility]* [address] [place] [address] Transthoracic Echocardiogram Patient: Mary Daly Study Date: 08/16/2022 BP: 126 / 64 Location: [facility] URN: [id number] 9065 : 1955 Age: 66 Height: 70 in / 177.8 cm Gender: M Weight: 187 .6 lb / 85.3 kg BMI/BSA: 27 kg/m 2 / 2.03 m 2 *Ordering Physician: * Ludin Mccurdy MD *Interpreting Physician: * Denton Chaparro MD *Improvement Advisor: * Amada Banks Indications: EVALUATE FUNCTION. Study data: Transthoracic echocardiogram. [...] 3.9 ---- Pulmonic valve Value 08/09/2022 Ref MA v, ED 0.7 m/sec 0.65 ---- Tricuspid [...] PATIENT NAME: MARY DALY 5 2022-08-15 12:52:00-00:[address] [facility] ([facility]) History Physical - Adult REPORT#:[id number] REPORT STATUS: Signed DATE:08/15/22 TIME: 1251 PATIENT: MARY DALY UNIT #: [id number] ROOM/BED: [place] [address] : 53 AGE: 66 SEX: M ATTEND: Siri Mccurdy MD ADM AUTHOR: Rosalind Mendez Physic * ALL edits or amendments must be made on the [employer]/computer document * Rosalind Mendez 08/15/22 1252: History [...] Coronary artery dis ease, Hypertension, Dyslipidemia, Prior ND, Steroid use. 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 at 1306 at 0733 RPT #:[id number] END OF REPORT 2022-08-15 12:31:00-00:00 [facility] EMERGENCY PROVIDER REPORT REPORT#:[id number] REPORT STATUS: Signed DATE:08/15/22 TIME: 1231 PATIENT: MARY DALY UNIT #: [id number] [address]BED: [address] AGE: 66 SEX: M PCP PHYS: Albino Torre MD SERVICE AUTHOR: Jaden Rodgers * ALL edits or amendments must be made on the el [employer]/computer document * HPI-Recheck W/B/S Free Text HPI Notes Free Text HPI Notes 66-year-old man, history of CAD, recent CABG wit h Dr. Mccurdy on 08/02/2022. Here for evaluation of wound drainage an d its been present for the last 3 to 4 days. Patient reports subjective chills since e operation, not reported to have discharge from the wound after leav ing the hospital. Reports right-sided chest pain that has been present for several day s, unchanged, no association with movement, exertion. Patient has bee n able to walk without reproduction of any [...] Coronary artery dis ease, Hypertension, Dyslipidemia, Prior ND, Steroid use. Additional Medical History Temproal arteritis [...] (Auto) (14.0 - 32.0 %) 8.3 L Sanders % (Auto) (4.8 - 9.0 %) 8.4 Eos % (Auto) (0.3 - 3.7 %) 0.9 Baso % (Auto) (0.0 - 2.0 %) 0.2 Neut # (Auto) (2.0 - 7.6 x10 3/uL) 8.05 H Lymph # (Auto) (1.0 - 3.8 x10 3/uL) 0.82 L Sanders # (Auto) (0.1 - 0.8 x10 3/uL) [...] the diffuse pulmonary edema . Impression By: [email or web address] - Breonna Noonan M.D. Lab Imaging Statement Laboratory radiographic studies reviewed and int erpreted by me, ED physician, and considered in the medical decision-making. Free Text I D Notes Free Text I D Notes EKG from 08/15/2022 at 1222, performed for chest pain, post CABG Interpreted by myself, ED physician Sinus rhythm, rate 70 Normal axis MA, normal QRS, prolonged QTc No ST elevation or ST depression suggestive of i schemia Re-Evaluation MDM Free Text MDM Notes Free Text MDM Notes 66-year-old history of hypertension, CAD, status post CABG with Dr. Mccurdy earlier this month, presenti ramón for chills and wound drainage from his [...] wound Disposition Decision Hospitalize Hosp Physician Name AndreaRosalindreina Ford )( Accepts Hospitalization Yes )( Reason for [...] over this patient's care. at 1420 RPT #:[id number] END OF REPORT 2022-08-09 15:06:00-00:00 [id number] [place] [address] PATIENT NAME: MARY DALY ADMIT DATE: 07/30/22 ACCOUNT NO: [id number] ROOM NO: G.3346 AGE: 66 REPORT TYPE: eECHOCARDIOGRAM REPORT SEX: M ADMITTING PHYSICIAN:Anthony Loaiza MD ATTENDING PHYSICIAN:Anthony Loaiza MD *[place] [address] Limited Transthoracic Echocardiogram Patient: Mary Daly Study Date: 08/09/2022 BP: 143 / 76 Location: [facility] URN: [id number] 6182 : 1955 Age: 66 Height: 70 in / 177.8 cm Gender: M Weight: 189 .6 lb / 86.2 kg BMI/BSA: 27.3 kg/m 2 / 2.04 m 2 *Ordering Physician: * Rosalind Mendez Physic *Interpreting Physician: * Denton Chaparro MD *Improvement Advisor: * Moira Jimenez Indications: Rule out pericardial [...] m/sec ---- Pulmonic valve Value 07/29/2022 Ref MA v, ED 0.65 m/sec 0.58 ---- Tricuspid [...] MARY DALY 2 2022-08-09 14:30:00-00:00 [facility] Hospitalist Discharge Summary REPORT#:[id number] REPORT STATUS: Signed DATE:08/09/22 TIME: 1430 PATIENT: MARY DALY UNIT #: [id number] [facility]OM[facility]BED: [facility] : 53 AGE: 66 SEX: M ATTEND: Marcella Loaiza od, MD ADM AUTHOR: Liz Orozco MD * ALL edits or amendments must be made on the el [employer]ronic/computer document * General Information Date of admission: [...] 500 MILLIGRAM ORAL DAILY. as needed for DIVERT ICULITIS CLOPIDOGREL (PLAVIX) 75 MG TAB 75 MILLIGRAM [...] 08/07 2102 O2 Flow Rate 2 08/06 2026 24 hour I O ending at 0700: [...] no CVA tenderness, no muscle sp asm 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, oriented X 3, CNII-XII intact Skin: [...] % (Auto) (14.0 - 32.0 %) 16.6 Sanders % (Auto) (4.8 - 9.0 %) 11.6 H Eos % (Auto) (0.3 - 3.7 %) 2.7 Baso % (Auto) (0.0 - 2.0 %) 0.4 Neut # (Auto) (2.0 - 7.6 x10 3/uL) 7.80 H Lymph # (Auto) (1.0 - 3.8 x10 3/uL) 1.91 Sanders # (Auto) (0.1 - 0.8 x10 3/uL) 1.33 H Eos # (Auto) (0.0 - 0.2 x10 3/uL) 0.31 H Baso # (Auto) (0.0 - 0.2 x10 3/uL) 0.05 Abs Immat Gran (auto) (0.00 - 0.03 x10 3/uL) 0 .09 H Add Manual Diff NO Immature Gran % (0.0 - 2.0 %) 0.8 Nucleated RBC % (0 - 0 %) 0.3 H Nucleated RBCs # (Man) (0.0 - 0.1 x10 3/uL) 0.0 3 Radiology data: Recent Impressions: RADIOLOGY - XR CHEST 1 V 08/09 0601 Report Impression - Status: SIGNED Entered: 08/09/2022910 [...] Liz Orozco MD on at 1433 RPT #:[id number] END OF REPORT 2022-08-09 05:23:00-00:00 [facility] Cardiothoracic Surgery Prog REPORT#:[id number] REPORT STATUS: Signed DATE:08/09/22 TIME: 522 PATIENT: MARY DALY UNIT #: [id number] ROOM/BED: [place] [address] : 51 AGE: 66 SEX: M ATTEND: [...] 08/07 2102 O2 Flow Rate 2 08/06 2026 24 hour I O ending at 0700: [...] range of motion, painless range of motion 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, oriented X 3 Skin: dry, intact [...] ascular surgery at 0909 at 0947 RPT #:[id number] END OF REPORT 2022-08-08 21:32:00-00:[address] [facility] ([facility] Hospitalist Progress Note REPORT#:[id number] REPORT STATUS: Signed DATE:08/08/22 TIME: 2131 PATIENT: MARY DALY UNIT #: [id number] ROOM[place]BED: [facility] : 53 AGE: 66 SEX: M ATTEND: Marcella Loaiza od, MD ADM AUTHOR: Jay Jay Roman DO * ALL edits or amendments must be made on the [employer]/computer document * Subjective Chief complaint: He is [...] low FiO2 Mean Ox Delivery Rate 08/08 1857 [...] HCl (CORDARONE) 200 MG BID PO Ipratropium Valdez (ATROVENT) 500 MCG RTQ2H MA N PRN INH Cyanocobalamin (Vitamin B-12 500 mcg tab) 500 MC G DAILY PO Ferrous Sulfate (FERROUS SULFATE) 325 MG DAILY P O Bisacodyl (DULCOLAX) 10 MG ONCE PRN RECTAL Mupirocin (BACTROBAN 2% 22 GM OINTMENT) 1 APPLIC BID NASAL (DC) Atorvastatin Calcium (LIPITOR) 40 MG 2100 PO Clopidogrel Bisulfate (Plavix) 75 MG DAILY PO Polyethylene Glycol (MIRALAX) 17 GM DAILY PO Ipratropium Valdez (ATROVENT) 500 MCG RTQ6H PRN PRN INH [...] no CVA tenderness, no muscle sp asm 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, oriented X 3, CNII-XII intact Skin: [...] % (Auto) (14.0 - 32.0 %) 17.1 Sanders % (Auto) (4.8 - 9.0 %) 12.0 H Eos % (Auto) (0.3 - 3.7 %) 2.1 Baso % (Auto) (0.0 - 2.0 %) 0.4 Neut # (Auto) (2.0 - 7.6 x10 3/uL) 7.64 H Lymph # (Auto) (1.0 - 3.8 x10 3/uL) 1.93 Sanders # (Auto) (0.1 - 0.8 x10 3/uL) 1.36 H Eos # (Auto) (0.0 - 0.2 x10 3/uL) 0.24 H Baso # (Auto) (0.0 - 0.2 x10 3/uL) 0.04 Abs Immat Gran (auto) (0.00 - 0.03 x10 3/uL) 0 .09 H Add Manual Diff NO Immature Gran % (0.0 - 2.0 %) 0.8 Nucleated RBC % (0 - 0 %) 0.2 H Nucleated RBCs # (Man) (0.0 - 0.1 x10 3/uL) 0.0 2 Radiology data: Recent Impressions: RADIOLOGY - XR CHEST 1 V 08/08 2859 Report Impression - Status: SIGNED Entered: 08/08/2022 4280 IMPRESSION: 1. Improved left basilar opacities. 2. [...] DO on 07/22 10/13 at 2134 RPT #:[id number] END OF REPORT 2022-08-08 12:54:00-00:00 [facility] ([facility]) Cardiology Progress Note REPORT#:[id number] REPORT STATUS: Signed DATE:08/08/22 TIME: 1254 PATIENT: MARY DALY UNIT #: [id number] ROOM/BED: [place] [address] : 53 AGE: 66 SEX: M ATTEND: Marcella Loaiza od, MD ADM AUTHOR: Melisa Gamboa MD * ALL edits or amendments must be made on the [employer] document * Subjective Chief complaint: NONE Objective [...] HCl (CORDARONE) 200 MG BID PO Ipratropium Valdez (ATROVENT) 500 MCG RTQ2H PRN PRN INH [...] Glycol (MIRALAX) 17 GM DAILY PO Ipratropium Valdez (ATROVENT) 500 MCG RTQ6H PRN PRN INH [...] edema Lower extremity: LE assessment: normal temperature 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, oriented X 3, normal speech Skin: [...] % (Auto) (14.0 - 32.0 %) 17.1 Sanders % (Auto) (4.8 - 9.0 %) 12.0 H Eos % (Auto) (0.3 - 3.7 %) 2.1 Baso % (Auto) (0.0 - 2.0 %) 0.4 Neut # (Auto) (2.0 - 7.6 x10 3/uL) 7.64 H Lymph # (Auto) (1.0 - 3.8 x10 3/uL) 1.93 Sanders # (Auto) (0.1 - 0.8 x10 3/uL) [...] 0.1 x10 3/uL) 0.0 2 Laboratory Tests 08/08 0442 Chemistry Magnesium (1.80 - 2.40 mg/dL) 2.05 Radiology data: Recent Impressions: ULTRASOUND - DUP [place] 08/07 1309 Report Impression - Status: SIGNED Entered: 08/07/2022 1518 IMPRESSION: No evidence of deep vein thrombosis. Impression By: [email or web address] - Esvin Guardado M.D. RADIOLOGY - XR CHEST 1 V 08/08 0734 Report Impression - Status: SIGNED Entered: 08/08/2022 0922 IMPRESSION: 1. Improved left basilar opacities. 2. 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 - CAD s/p CABG [...] MD on 0 08/08/22 at 2246 RPT #:[id number] END OF REPORT 2022-08-07 13:28:00-00:00 [facility] Hospitalist Progress Note REPORT#:[id number] REPORT STATUS: Signed DATE:08/07/22 TIME: 1328 PATIENT: MARY DALY UNIT #: [id number] ROOM/BED: 3346-1 : 53 AGE: 66 SEX: M ATTEND: Marcella Loaiza od, MD ADM AUTHOR: Jay Jay Roman DO * ALL edits or amendments must be made on the el [employer]edi [employer]/computer document * Subjective Chief complaint: He is [...] 14 126/62 0.0 97 Room air 08/06 2026 97 Nasal 2 28 cannula 08/06 2009 [...] HCl (CORDARONE) 200 MG BID PO Ipratropium Valdez (ATROVENT) 500 MCG RTQ2H PRN PRN INH [...] Glycol (MIRALAX) 17 GM DAILY PO Ipratropium Valdez (ATROVENT) 500 MCG RTQ6H PRN PRN INH [...] no CVA tenderness, no muscle sp asm 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, oriented X 3, CNII-XII intact Skin: [...] % (Auto) (14.0 - 32.0 %) 18.5 Sanders % (Auto) (4.8 - 9.0 %) 12.7 H Eos % (Auto) (0.3 - 3.7 %) 3.0 Baso % (Auto) (0.0 - 2.0 %) 0.3 Neut # (Auto) (2.0 - 7.6 x10 3/uL) 7.37 Lymph # (Auto) (1.0 - 3.8 x10 3/uL) 2.10 Sanders # (Auto) (0.1 - 0.8 x10 3/uL) [...] DO on 07/22 09/12 at 2017 RPT #:[id number] END OF REPORT 2022-08-07 12:44:00-00:[address] [facility] ([facility]) Cardiology Progress Note REPORT#:[id number] REPORT STATUS: Signed DATE:08/07/22 TIME: 1244 PATIENT: MARY DALY UNIT #: [id number] ROOM/BED: [place] [address] : 51 AGE: 66 SEX: M ATTEND: Marcella Loaiza od, MD ADM AUTHOR: Melisa Gamboa MD * ALL edits or amendments must be made on the [employer]/computer document * Subjective Chief complaint: NONE Objective [...] HCl (CORDARONE) 200 MG BID PO Ipratropium Valdez (ATROVENT) 500 MCG RTQ2H PRN PRN INH [...] Glycol (MIRALAX) 17 GM DAILY PO Ipratropium Valdez (ATROVENT) 500 MCG RTQ6H PRN PRN INH [...] edema Lower extremity: LE assessment: normal temperature 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, oriented X 3, normal speech Skin: dry, intact Psychiatry: normal affect Results Findings/Data: Laboratory Tests 08/07 357 Chemistry [...] % (Auto) (14.0 - 32.0 %) 18.5 Sanders % (Auto) (4.8 - 9.0 %) 12.7 H Eos % (Auto) (0.3 - 3.7 %) 3.0 Baso % (Auto) (0.0 - 2.0 %) 0.3 Neut # (Auto) (2.0 - 7.6 x10 3/uL) 7.37 Lymph # (Auto) (1.0 - 3.8 x10 3/uL) 2.10 Sanders # (Auto) (0.1 - 0.8 x10 3/uL) [...] temporal arteritis (on prednisone) presented t o [facility] for elective PCI. - CAD s/p CABG [...] MD on 0 08/07/22 at 1814 RPT #:[id number] END OF REPORT 2022-08-06 14:19:00-00:00 [facility] Hospitalist Progress Note REPORT#:[id number] REPORT STATUS: Signed DATE:08/06/22 TIME: 1419 PATIENT: MARY DALY UNIT #: [id number] ROOM/BED: [place] [id number] : 53 AGE: 66 SEX: M ATTEND: Marcella Loaiza od, MD ADM AUTHOR: Liz Orozco MD * ALL edits or amendments must be made on the el [employer]/computer document * Subjective Chief complaint: He is [...] HCl (CORDARONE) 200 MG BID PO Ipratropium Valdez (ATROVENT) 500 MCG RTQ2H PRN PRN INH [...] Glycol (MIRALAX) 17 GM DAILY PO Ipratropium Valdez (ATROVENT) 500 MCG RTQ6H PRN PRN INH [...] no CVA tenderness, no muscle sp asm 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, oriented X 3, CNII-XII intact Skin: [...] by Liz Orozco MD on at 1421 [facility] #:[id number] END OF REPORT 2022-08-06 09:23:00-00:00 [facility] Cardiothoracic Surgery Prog REPORT#:[id number] REPORT STATUS: Signed DATE:08/06/22 TIME: 922 PATIENT: MARY DALY UNIT #: [id number] ROOM/BED: [place] [address] : 51 AGE: 66 SEX: M ATTEND: Marcella Loaiza od, MD ADM AUTHOR: Ludin Mccurdy MD * ALL edits or amendments must be made on the el [employer]/computer document * General Post-op: day 4 Status [...] 723 Temp 37.1 08/07 723 Pulse 74 08/07 723 Resp 18 08/07 723 O2 Delivery Nasal cannula 08/06 0350 O2 [...] range of motion, painless range of motion 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, oriented X 3 Skin: dry, intact Psychiatry: normal affect, normal mood Current Medications Medications: Active Meds + DC'd Last 24 Hrs Amiodarone HCl (CORDARONE) 200 MG BID PO (UNVr) Ipratropium Valdez (ATROVENT) 500 MCG RTQ2H PRN PRN INH Furosemide (LASIX 20MG INJ) 20 MG ONCE ONE IV (D C) Magnesium Citrate (MAGNESIUM CITRATE) 150 ML ONC E ONE PO (DC) Cyanocobalamin (Vitamin B-12 500 mcg tab) 500 MC G DAILY PO Ferrous Sulfate (FERROUS SULFATE) 325 MG DAILY P O Bisacodyl (DULCOLAX) 10 MG ONCE PRN RECTAL Mupirocin (BACTROBAN 2% 22 GM OINTMENT) 1 APPLI C BID NASAL Atorvastatin Calcium (LIPITOR) 40 MG 2100 PO Clopidogrel Bisulfate (Plavix) 75 MG DAILY PO Polyethylene Glycol (MIRALAX) 17 GM DAILY PO Ipratropium Valdez (ATROVENT) 500 MCG RTQ6H PRN PRN INH Pantoprazole (PROTONIX) 40 MG DAILY@0600 PO Docusate Sodium (COLACE) 100 MG BID PO Gabapentin (NEURONTIN) 200 MG BID PO Metoprolol Tartrate (LOPRESSOR) 12.5 MG Q12HR PO Sennosides (Senna Lax 8.6 MG TABLET) 17.2 MG BED TIME PO Aspirin (ASPIRIN) 81 MG DAILY PO Ipratropium Valdez (ATROVENT) 500 MCG RTQ4H INH (DC) Amiodarone [...] Flaherty Results: labs reviewed, vital signs stable, erin [...] cardiology, cardiov ascular surgery at 1548 RPT #:[id number] END OF REPORT 2022-08-06 09:04:00-00:00 [facility] Progress Note REPORT#:[id number] REPORT STATUS: Signed DATE:08/06/22 TIME: 09 PATIENT: MARY DALY UNIT #: [id number] ROOM/BED: [address] : 53 AGE: 66 SEX: M ATTEND: Marcella Loaiza od, MD ADM AUTHOR: Harper Rae NP * ALL edits or amendments must be made on the Sembra[employer]/computer document * Subjective Chief complaint: chest pain when taking deep breath. Patient reports: No: chest pain, palpitations, shortness of breat h. Nursing reports: No: complaints. Comments: Patient is on RA, reports pain is not controlled yet. He reports chest pain when taking deep breath. Telemetry shows nsr. Objective General VS/I O: 24 hour I O ending at 0700: 06/15 1900 08/06 0700 Intake Total Output Total [...] Meds + DC'd Last 24 Hrs Ipratropium Valdez (ATROVENT) 500 MCG RTQ2H PRN PRN INH [...] Glycol (MIRALAX) 17 GM DAILY PO Ipratropium Valdez (ATROVENT) 500 MCG RTQ6H PRN PRN INH Pantoprazole (PROTONIX) 40 MG DAILY@0600 PO Docusate Sodium (COLACE) 100 MG BID PO Gabapentin (NEURONTIN) 200 MG BID PO Metoprolol Tartrate (LOPRESSOR) 12.5 MG Q12HR PO Sennosides (Senna Lax 8.6 MG TABLET) 17.2 MG BED TIME PO Aspirin (ASPIRIN) 81 MG DAILY PO Ipratropium Valdez (ATROVENT) 500 MCG RTQ4H INH (DC) Amiodarone [...] edema Lower extremity: LE assessment: normal temperature 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, oriented X 3, normal speech Skin: [...] % (Auto) (14.0 - 32.0 %) 14.6 Sanders % (Auto) (4.8 - 9.0 %) 12.8 H Eos % (Auto) (0.3 - 3.7 %) 1.9 Baso % (Auto) (0.0 - 2.0 %) 0.2 Neut # (Auto) (2.0 - 7.6 x10 3/uL) 9.01 H Lymph # (Auto) (1.0 - 3.8 x10 3/uL) 1.88 Sanders # (Auto) (0.1 - 0.8 x10 3/uL) [...] (0.0 - 0.1 x10 3/uL) 0. 00 Laboratory Tests 08/06 0416 Chemistry Magnesium (1.80 - 2.40 mg/dL) 2.03 Radiology data: Recent Impressions: RADIOLOGY - XR CHEST 1 V 08/06 0620 Report Impression - Status: SIGNED Entered: 08/06/2022 0836 IMPRESSION: Interval removal left chest tube. No [...] temporal arteritis (on prednisone) presented t o [facility] for elective PCI. - CAD s/p CABG [...] NP on at 1555 at 1632 RPT #:[id number] END OF REPORT 2022-08-05 10:45:00-00:[address] [facility] ([facility]) Clinical Note REPORT#:[id number] REPORT STATUS: Signed DATE:08/05/22 TIME: 1045 PATIENT: MARY DALY UNIT #: [id number] ROOM/BED: [place] [address] : 53 AGE: 66 SEX: M ATTEND: Marcella Loaiza od, MD ADM AUTHOR: Mary Briggs MD * ALL edits or amendments must be made on the Sembraire/computer document * Clinical Note Note: STS RISK SCORES Procedure: Isolated CABG CALCULATE Risk of Mortality: 0.840% Renal Failure: 1.059% Permanent Stroke: 0.840% Prolonged Ventilation: 3.487% DSW Infection: 0.406% Reoperation: 1.579% Morbidity or Mortality: 6.159% Short Length of Stay: 54.349% Long Length of Stay: 2.663% Electronically Signed by Mary Briggs MD on 07/22 07/13 at 1045 RPT #:[id number] END OF REPORT 2022-08-05 10:15:00-00:00 [facility] Hospitalist Progress Note REPORT#:[id number] REPORT STATUS: Signed DATE:08/05/22 TIME: 1015 PATIENT: MARY DALY UNIT #: [id number] ROOM/BED: 3346[address]1 : 53 AGE: 66 SEX: M ATTEND: Marcella Loaiza od, MD ADM AUTHOR: Luther Martin MAMMALOGIST * ALL edits or amendments must be made on the Sembra[employer]/computer document * Luther Martin 08/05/22 1015: Subjective [...] O2 Flow FiO2 Mean Ox Delivery Rate 08/05 0700 [...] 08/04 2100 78 115/59 81 95 08/04 2001 96 Nasal 2 cannula 08/05 1999 37.0 [...] Meds + DC'd Last 24 Hrs Ipratropium Valdez (ATROVENT) 500 MCG RTQ2H PRN PRN INH [...] Glycol (MIRALAX) 17 GM DAILY PO Ipratropium Valdez (ATROVENT) 500 MCG RTQ6H PRN PRN INH Pantoprazole (PROTONIX) 40 MG DAILY@0600 PO Docusate Sodium (COLACE) 100 MG BID PO Gabapentin (NEURONTIN) 200 MG BID PO Metoprolol Tartrate (LOPRESSOR) 12.5 MG Q12HR PO Sennosides (Senna Lax 8.6 MG TABLET) 17.2 MG BED TIME PO Aspirin (ASPIRIN) 81 MG DAILY PO Ipratropium Valdez (ATROVENT) 500 MCG RTQ4H INH Amiodarone HCl [...] no CVA tenderness, no muscle sp asm 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, oriented X 3, CNII-XII intact Skin: [...] % (Auto) (14.0 - 32.0 %) 15.7 Sanders % (Auto) (4.8 - 9.0 %) 15.0 H Eos % (Auto) (0.3 - 3.7 %) 1.1 Baso % (Auto) (0.0 - 2.0 %) 0.2 Neut # (Auto) (2.0 - 7.6 x10 3/uL) 9.99 H Lymph # (Auto) (1.0 - 3.8 x10 3/uL) 2.33 Sanders # (Auto) (0.1 - 0.8 x10 3/uL) [...] Removal of right catheter sheath. Impression By: [email or web address] - Allan Diana M.D. [...] and repalce as needed. Monitor. Anthony Loaiza 08/16/22 193: Attestations Physician Attestation Agree w/findings plan: Patient seen and examined, I agree with the findings and plan as discussed with and documented by Luther Martin NP Electronically Signed by Luther Martin NP on at 1017 Electronically Signed by Anthony Loaiza MD on 0 08/16/22 at 1942 RPT #:[id number] END OF REPORT 2022-08-05 07:20:00-00:00 [facility] ([facility]) Cardiology Progress Note REPORT#:[id number] REPORT STATUS: Signed DATE:08/05/22 TIME: 07 PATIENT: MARY DALY UNIT #: [id number] ROOM/BED: [place] [address] : 53 AGE: 66 SEX: M ATTEND: Marcella Loaiza od, MD ADM AUTHOR: Denton Chaparro MD * ALL edits or amendments must be made on the [employer] document * Subjective Chief complaint: Shortness of [...] O2 Flow FiO2 Mean Ox Delivery Rate 08/05 0700 [...] 08/04 2100 78 115/59 81 95 08/04 2001 96 Nasal 2 cannula 08/05 1999 98.6 08/05 1999 High flow 2 nasal cannula 08/05 1999 79 119/64 86 95 08/04 1900 79 121/63 87 94 08/04 1800 83 34 134/60 87 91 08/04 1700 80 29 140/68 98 93 08/04 1612 77 24 130/68 93 94 08/04 1500 139/46 69 08/04 1500 100.2 75 29 123/65 88 96 08/04 1401 138/45 67 06/14 1401 100.2 74 23 129/64 89 99 06/14 1301 141/50 71 06/14 1301 100.2 82 27 105/55 76 99 06/14 1206 95 High flow 3 nasal cannula / 1200 128/50 73 06/14 1200 100.2 78 31 113/61 80 96 / 1100 133/48 69 06/14 1100 100.0 75 27 113/57 79 95 06/14 1001 134/52 75 /14 1001 99.9 76 28 123/57 81 93 06/14 0900 117/53 72 06/14 0900 100.2 78 31 103/56 74 95 /14 0815 100.0 76 28 94/84 90 96 06/ 0800 Nasal 5 cannula / 0800 145/57 81 06/ 0800 99.9 79 28 130/71 95 95 / 0745 95 High flow 3 nasal cannula / 0745 100.2 79 30 129/47 69 93 /14 0730 100.2 77 26 150/50 74 95 PATIENT WEIGHT: Weight (lb): 198 Weight (oz): 13.71 Weight (kg): 90.200 Medications: Active Meds + DC'd Last 24 Hrs Ipratropium Valdez (ATROVENT) 500 MCG RTQ2H PRN PRN INH [...] Glycol (MIRALAX) 17 GM DAILY PO Ipratropium Valdez (ATROVENT) 500 MCG RTQ6H PRN PRN INH Pantoprazole (PROTONIX) 40 MG DAILY@0600 PO Docusate Sodium (COLACE) 100 MG BID PO Gabapentin (NEURONTIN) 200 MG BID PO Metoprolol Tartrate (LOPRESSOR) 12.5 MG Q12HR PO Sennosides (Senna Lax 8.6 MG TABLET) 17.2 MG BED TIME PO Aspirin (ASPIRIN) 81 MG DAILY PO Ipratropium Valdez (ATROVENT) 500 MCG RTQ4H INH Amiodarone HCl [...] Lower extremity: LE assessment: edema, normal temperature 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, oriented X 3, normal speech Skin: dry, intact Psychiatry: normal affect Results Findings/Data: Laboratory Tests 08/05 08/04 0449 [...] 5.0 g/dL) 3.60 Laboratory Tests 08/05 08/04 0449 1506 Chemistry Magnesium (1.80 - 2.40 mg/dL) 2.14 2.16 Treatment Prophylaxis Treatment Prophylaxis Drain(s)/tube(s): Drain(s)/tube(s): bertha (x2) Diagnosis, Assessment Plan Consultants: anesthesiology, cardiology, cardiov ascular surgery Free Text DxA P Notes Free Text DxA P Notes: Mr. Daly is a pleasant 66 y/o male w/ PMHx: CAD s/p PCI, HTN, HLD, T2DM, GERD , temporal arteritis (on prednisone) presented t o [facility] for elective PCI. - CAD s/p CABG [...] Denton Chaparro MD on at 0720 RPT #:[id number] END OF REPORT 2022-08-05 05:05:00-00:00 [facility] REPORT#:[id number] REPORT STATUS: Signed DATE:08/05/22 TIME: 0505 PATIENT: MARY DALY UNIT #: [id number] ROOM/BED: [place] [address] : 53 AGE: 66 SEX: M ATTEND: Marcella Loaiza od, MD ADM AUTHOR: Rosalind Mendez Physic * ALL edits or amendments must be made on the [employer]/computer document * General Post-op: day 3 Status [...] range of motion, painless range of motion 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, oriented X 3 Skin: dry, intact [...] cardiology, cardiov ascular surgery at 0834 RPT #:[id number] END OF REPORT 2022-08-04 17:28:00-00:00 [facility] ([facility]) Critical Care Progress Note REPORT#:[id number] REPORT STATUS: Signed DATE:08/04/22 TIME: 1728 PATIENT: MARY DALY #: [id number] ROOM/BED: 3346-1 : 53 AGE: 66 SEX: M ATTEND: Marcella Loaiza od, MD ADM AUTHOR: Shruthi Espinoza MD * ALL edits or amendments must be made on the el [employer]/computer document * Subjective Chief complaint: Chest pain [...] every 12 hours. His arterial line and [place] D[place] catheter will be discontinued. 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 Small left-sided 10% pneumothorax with a ches t tube in place. 2. Findings were called to MARCELINO Carr, CVICU [facility] at 10:00 AM Impression By: Vadim - Radha Stanley M.D. Treatment Prophylaxis Treatment Prophylaxis Drain(s)/tube(s): [...] Patient has been on chronic steroid therapy [facility] e 2016, received stress dose steroids with hydrocortisone 100 mg IV Avoid further steroid dosing unless evidence of adrenal crisis SCDs for DVT prophylaxis Sterlingbrenda Hidalgo MD [facility] 08/02/2022 3.57 PM 08/03/2022 Patient seen and discussed d uring MDR this morning in CVICU room #6412. Patient is postop day 1 after CABG x4. Complains of ches t pain, dyspnea this morning. Received ipratropium nebulizer without a ny relief. Has significant acid reflux symptoms with heartburn and dyspepsia. Patient w ill be started on IV Protonix 40 mg every 12 hours. His arterial line and [place] Dino catheter will be discontinued. Chest tubes [...] Daly is a 66-year gentleman with past [facility] history significant for coronary artery disease stat [...] Both chest tubes to be retained DC Bruneau-[place] Marie catheter and arterial line Central venous [...] SCDs for DVT prophylaxis Sterling Hidalgo MD [facility] 08/03/2022 11.13 AM 08/04/2022 Neurologically at baseline. [...] MD on 0 08/25/22 at 1528 RPT #:[id number] END OF REPORT 2022-08-04 11:30:00-00:[address] [facility] ([facility]) Cardiothoracic Surgery Prog REPORT#:[id number] REPORT STATUS: Signed DATE:08/04/22 TIME: 1130 PATIENT: MARY DALY UNIT #: [id number] RO[address]BED: [address] : 53 AGE: 66 SEX: M ATTEND: Marcella Loaiza od, MD ADM AUTHOR: Ludin Mccurdy MD * ALL edits or amendments must be made on the el ectronic/computer document * General Post-op: day 2 Status [...] range of motion, painless range of motion 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, oriented X 3 Skin: dry, intact Psychiatry: normal affect, normal mood Current Medications Medications: Active Meds + DC'd Last 24 Hrs Ipratropium Valdez (ATROVENT) 500 MCG RTQ2H PRN PRN INH [...] Glycol (MIRALAX) 17 GM DAILY PO Ipratropium Valdez (ATROVENT) 500 MCG RTQ6H PRN PRN INH Pantoprazole (PROTONIX) 40 MG DAILY@0600 PO Docusate Sodium (COLACE) 100 MG BID PO Gabapentin (NEURONTIN) 200 MG BID PO Metoprolol Tartrate (LOPRESSOR) 12.5 MG Q12HR PO Sennosides (Senna Lax 8.6 MG TABLET) 17.2 MG BED TIME PO Aspirin (ASPIRIN) 81 MG DAILY PO Ipratropium Valdez (ATROVENT) 500 MCG RTQ4H INH Amiodarone HCl [...] % (Auto) (14.0 - 32.0 %) 14.8 Sanders % (Auto) (4.8 - 9.0 %) 21.2 H Eos % (Auto) (0.3 - 3.7 %) 0.1 L Baso % (Auto) (0.0 - 2.0 %) 0.1 Neut # (Auto) (2.0 - 7.6 x10 3/uL) 7.68 H Lymph # (Auto) (1.0 - 3.8 x10 3/uL) 1.79 Sanders # (Auto) (0.1 - 0.8 x10 3/uL) [...] 2. Findings were called to MARCELINO Carr, [facility] jason pham at 10:00 AM Impression By: [...] cardiology, cardiov ascular surgery at 1550 RPT #:[id number] END OF REPORT 2022-08-04 09:06:00-00:00 [facility] REPORT#:[id number] REPORT STATUS: Signed DATE:08/04/22 TIME: 905 PATIENT: MARY DALY UNIT #: [id number] ROOM/BED: [place] [address] : 53 AGE: 66 SEX: M ATTEND: Marcella Loaiza od, MD ADM AUTHOR: Luther Martin MAMMALOGIST * ALL edits or amendments must be made on the Sembra[employer]/computer document * Luther Martin 08/04/22 0906: Subjective [...] Nasal 5 cannula 08/04 0800 145/57 81 / 0800 37.7 79 28 130/71 95 95 /14 0745 37.9 79 30 129/47 69 93 [...] 2230 38.4 78 23 145/52 74 93 06/13 2200 123/60 85 06/13 2200 38.4 78 25 147/53 76 93 06/13 2130 38.3 76 28 145/52 75 92 06/13 2100 110/55 77 06/13 2100 38.3 78 24 147/51 74 91 08/03 2030 38.3 77 21 142/51 72 94 08/04 1999 Nasal 3 cannula 08/04 1999 111/53 76 08/04 1999 38.3 79 30 144/51 73 92 08/03 1940 92 Nasal 3 cannula 08/03 1930 38.3 78 34 160/57 81 93 08/03 1900 121/58 82 08/03 1900 38.2 79 31 125/41 61 91 08/03 1806 37.9 78 32 91 08/03 1800 37.8 80 35 116/58 83 91 08/03 1700 107/59 80 08/03 1700 37.6 72 24 140/54 75 93 [...] Meds + DC'd Last 24 Hrs Ipratropium Valdez (ATROVENT) 500 MCG RTQ2H PRN PRN INH [...] Glycol (MIRALAX) 17 GM DAILY PO Ipratropium Valdez (ATROVENT) 500 MCG RTQ6H PRN PRN INH Pantoprazole (PROTONIX) 40 MG DAILY@0600 PO Docusate Sodium (COLACE) 100 MG BID PO Gabapentin (NEURONTIN) 200 MG BID PO Metoprolol Tartrate (LOPRESSOR) 12.5 MG Q12HR PO Sennosides (Senna Lax 8.6 MG TABLET) 17.2 MG BED TIME PO Aspirin (ASPIRIN) 81 MG DAILY PO Ipratropium Valdez (ATROVENT) 500 MCG RTQ4H INH Amiodarone HCl [...] no CVA tenderness, no muscle sp asm 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, oriented X 3, CNII-XII intact Skin: [...] % (Auto) (14.0 - 32.0 %) 14.8 Sanders % (Auto) (4.8 - 9.0 %) 21.2 H Eos % (Auto) (0.3 - 3.7 %) 0.1 L Baso % (Auto) (0.0 - 2.0 %) 0.1 Neut # (Auto) (2.0 - 7.6 x10 3/uL) 7.68 H Lymph # (Auto) (1.0 - 3.8 x10 3/uL) 1.79 Sanders # (Auto) (0.1 - 0.8 x10 3/uL) [...] MD on 0 08/04/22 at 1728 RPT #:[id number] END OF REPORT 2022-08-04 08:45:00-00:00 [facility]) Cardiology Progress Note REPORT#:[id number] REPORT STATUS: Signed DATE:08/04/22 TIME: 0845 PATIENT: MARY DALY UNIT #: [id number] ROOM/BED: 2207-1 : 53 AGE: 66 SEX: M ATTEND: Marcella Loaiza od, MD ADM AUTHOR: Harper Rae NP * ALL edits or amendments must be made on the el [employer] document * Subjective Chief complaint: Shortness of [...] 90 96 06/14 0800 Nasal 5 cannula / 0800 145/57 81 06/14 0800 99.9 79 [...] 0100 100.9 77 28 126/46 68 96 / 0030 100.9 74 21 134/48 69 99 / 0000 108/58 80 08/04 0000 101.1 77 26 137/47 68 97 / 2330 101.1 81 32 152/53 77 95 / 2307 104/58 76 / 2307 101.1 82 38 147/53 77 89 / 2300 101.1 77 23 150/54 77 93 / 2230 101.1 78 23 145/52 74 93 / 2200 123/60 85 06/ 2200 101.1 78 25 147/53 76 93 / 2130 100.9 76 28 145/52 75 92 / 2100 110/55 77 / 2100 100.9 78 24 147/51 74 91 / 2030 100.9 77 21 142/51 72 94 08/04 1999 Nasal 3 cannula 08/03 2000 111/53 76 /1999 100.9 79 30 144/51 73 92 / 1940 92 Nasal 3 cannula 08/03 1930 100.9 78 34 160/57 81 93 / 1900 121/58 82 06/13 1900 100.8 79 31 125/41 61 91 / 1806 100.2 78 32 91 / 1800 100.0 80 35 116/58 83 91 06/13 1700 107/59 80 06/13 1700 99.7 72 24 140/54 75 93 /13 1600 106/60 78 / 1600 99.1 67 28 143/55 79 94 06/13 1500 110/59 79 06/13 1500 99.0 64 22 135/52 73 95 PATIENT WEIGHT: Weight (lb): 201 Weight (oz): 15.09 Weight (kg): 91.600 Status post: 07/27 LHC 08/02 CABG x [...] Lower extremity: LE assessment: edema, normal temperature 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, oriented X 3, normal speech Skin: [...] % (Auto) (14.0 - 32.0 %) 14.8 Sanders % (Auto) (4.8 - 9.0 %) 21.2 H Eos % (Auto) (0.3 - 3.7 %) 0.1 L Baso % (Auto) (0.0 - 2.0 %) 0.1 Neut # (Auto) (2.0 - 7.6 x10 3/uL) 7.68 H Lymph # (Auto) (1.0 - 3.8 x10 3/uL) 1.79 Sanders # (Auto) (0.1 - 0.8 x10 3/uL) [...] Hospital at 10:00 AM Impression By: Vadim - Radha Stanley M.D. Results: labs reviewed, vital signs reviewed, vi radha signs stable, rhythm personally rev'd, x-ray personally reviewed, cur rent med profile rev'd Telemetry Interpretation: nsr Treatment Prophylaxis Treatment Prophylaxis Drain(s)/tube(s): Drain(s)/tube(s): bertha (x2) Diagnosis, Assessment Plan Consultants: anesthesiology, cardiology, cardiov ascular surgery Plan discussed with: patient, nurse Free Text DxA P Notes Free Text DxA P Notes: Mr. Dlay is a pleasant 66 y/o male w/ PMHx: CAD s/p PCI, HTN, HLD, T2DM, GERD , temporal arteritis (on prednisone) presented t o [facility] for elective PCI. - CAD s/p CABG [...] Signed by Harper Rae NP on at 1437 Electronically Signed by Denton Chaparro MD on at 1717 RPT #:[id number] END OF REPORT 2022-08-04 04:45:00-00:00 [id number] [address] PATIENT NAME: MARY DALY ADMIT DATE: 07/30/22 ACCOUNT NO: [id number] ROOM NO: AGE: 66 REPORT TYPE: eELECTROCARDIOGRAM REPORT SEX: M ADMITTING PHYSICIAN:Anthony Loaiza MD ATTENDING PHYSICIAN:Anthony Loaiza MD Order: [id number] Test Reason : P/S CABG Test Date/Time [...] Confirmed by MD CHAPARRO GERARD ([id number]) on 08/05/19 1:26:52 PM Referred By: Anthony Loaiza Confirmed by:DENTON PIÑA MD Electronically Signed by Denton Chaparro MD on 0 08/04/22 at 1326 PATIENT NAME: MARY DALY 2 2022-08-03 16:03:00-00:[address] [facility] ([facility]) Cardiothoracic Surgery Prog REPORT#:[id number] REPORT STATUS: Signed DATE:08/03/22 TIME: 1603 PATIENT: MARY DALY UNIT #: [id number] ROOM/BED: 7-1 : 53 AGE: 66 SEX: M ATTEND: Marcella Loaiza od, MD ADM AUTHOR: Rosalind Mendez Physic * ALL edits or amendments must be made on the el [employer]/computer document * General Post-op: day 1 Status [...] range of motion, painless range of motion 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, oriented X 3 Skin: dry, intact Psychiatry: normal affect, normal mood Current Medications Medications: Active Meds + DC'd Last 24 Hrs Ipratropium Valdez (ATROVENT) 500 MCG RTQ2H PRN PRN INH [...] Glycol (MIRALAX) 17 GM DAILY PO Ipratropium Valdez (ATROVENT) 500 MCG RTQ6H PRN PRN INH Pantoprazole (PROTONIX) 40 MG DAILY@0600 PO Docusate Sodium (COLACE) 100 MG BID PO Gabapentin (NEURONTIN) 200 MG BID PO Metoprolol Tartrate (LOPRESSOR) 12.5 MG Q12HR PO Sennosides (Senna Lax 8.6 MG TABLET) 17.2 MG BED TIME PO Aspirin (ASPIRIN) 81 MG DAILY PO Ipratropium Valdez (ATROVENT) 500 MCG RTQ4H INH Amiodarone HCl [...] Sodium (KEFZOL OR ANCEF) 2 GM 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 (DC) Gabapentin (NEURONTIN) 200 MG PREOP [...] 08/03 08/03 08/03 08/02 0701 0406 0228 2043 Blood Gas Puncture Site Art Line [place] Marie Art Line Art L ine [...] Device Cannula Cannula Cannula Leonel annemarie 08/02 1948 Blood Gas Puncture Site [place] ABG Hematocrit (37.5 - 50.7 [...] Albumin (3.4 - 5.0 g/dL) 3.60 08/02 1949 Chemistry Sodium (134 - 147 mEq/L) [...] Magnesium (1.80 - 2.40 mg/dL) 2.22 08/02 1849 Chemistry POC Glucose (70 - 110 MG/DL) 109 Laboratory Tests 08/030 2047 Hematology WBC (4.5 - 11.0 x10 3/uL) [...] - 32.0 %) 7.6 L 3.4 L Sanders % (Auto) (4.8 - 9.0 %) 17.9 H 15.9 H Eos % (Auto) (0.3 - 3.7 %) 0.0 L 0.0 L Baso % (Auto) (0.0 - 2.0 %) 0.1 0.1 Neut # (Auto) (2.0 - 7.6 x10 3/uL) 9.38 H 11.24 H Lymph # (Auto) (1.0 - 3.8 x10 3/uL) 0.96 L 0.48 L Sanders # (Auto) (0.1 - 0.8 x10 3/uL) [...] ascular surgery at 1113 at 0910 RPT #:[id number] END OF REPORT 2022-08-03 13:50:00-00:00 [facility] ([facility] Hospitalist Progress Note REPORT#:[id number] REPORT STATUS: Signed DATE:08/03/22 TIME: 1350 PATIENT: MARY DALY UNIT #: [id number] ROOM/BED: 2207-1 : 53 AGE: 66 SEX: M ATTEND: Marcella Loaiza od, MD ADM AUTHOR: Luther Martin MAMMALOGIST * ALL edits or amendments must be made on the el [employer]/computer document * Luther Martin 08/03/22 1350: Subjective [...] low FiO2 Mean Ox Delivery Rate 08/03 1000 113/57 78 08/03 1000 37.1 62 15 122/49 68 96 08/03 0900 104/59 78 08/03 0900 37.4 71 23 111/44 61 94 / 0801 110/59 76 / 0800 37.6 74 36 120/53 72 95 / 0751 94 High flow 3 nasal cannula 08/03 0700 114/68 84 / 0700 37.6 74 26 117/38 76 94 06/ 0600 37.3 75 24 136/51 75 95 / 0500 37.3 75 20 139/55 78 94 / 0400 108/62 79 06/ 0400 37.1 74 22 129/55 77 95 / 0303 95 Nasal 2 cannula 08/03 0300 103/59 75 / 0300 37.1 72 18 118/52 72 95 / 0200 109/61 78 / 0200 37.1 74 29 120/56 75 95 06/13 0100 108/59 78 06/13 0100 37.1 76 18 118/55 75 94 06/13 0030 37.1 75 16 114/55 74 96 / 0000 105/58 74 06/13 0000 37.1 75 15 112/55 72 96 08/02 2311 37.0 78 20 113/54 73 95 08/02 2300 108/58 78 06/ 2300 37.0 77 20 115/56 76 95 08/02 2230 37.0 79 21 114/59 77 95 /12 2200 102/64 78 06/ 2200 37.0 79 15 113/55 74 95 / 2130 37.0 80 22 119/56 77 96 08/02 2100 98/63 75 / 2100 36.9 78 19 120/57 77 96 08/02 2030 36.8 78 20 126/58 79 96 08/03 1999 Nasal 2 cannula 08/03 1999 113/61 81 08/03 1999 36.8 78 28 124/56 78 97 08/02 1930 36.8 78 29 127/58 79 96 08/02 1916 96 Nasal 2 cannula 08/02 1900 107/58 77 08/02 1900 36.7 77 23 117/55 73 96 08/02 1700 97/52 70 08/02 1700 35.8 73 19 121/50 72 99 /12 1600 120/66 89 08/02 1600 36.1 75 17 149/58 85 99 / 1535 36.2 80 18 125/53 80 08/02 1515 99 Simple 15 mask 24 hour [...] Meds + DC'd Last 24 Hrs Ipratropium Valdez (ATROVENT) 500 MCG RTQ2H PRN PRN INH [...] Glycol (MIRALAX) 17 GM DAILY PO Ipratropium Valdez (ATROVENT) 500 MCG RTQ6H PRN PRN INH Pantoprazole (PROTONIX) 40 MG DAILY@0600 PO Docusate Sodium (COLACE) 100 MG BID PO Gabapentin (NEURONTIN) 200 MG BID PO Metoprolol Tartrate (LOPRESSOR) 12.5 MG Q12HR PO Sennosides (Senna Lax 8.6 MG TABLET) 17.2 MG BED TIME PO Aspirin (ASPIRIN) 81 MG DAILY PO Ipratropium Valdez (ATROVENT) 500 MCG RTQ4H INH Amiodarone HCl [...] IV Sodium Bicarbonate (SODIUM BICARBONATE) 50 MEQ ASDIR PRN IV Sodium Chloride (SODIUM CHLORIDE 0.9%) 1,000 ML .Q20H IV Sodium Chloride (SODIUM CHLORIDE 0.9%) 250 ML Q2 4H IV Hydrocortisone Sodium Succinate (Solu-CORTEF) 10 0 MG PREOP ONCALL IV (DC ) Acetaminophen (TYLENOL EXTRA STRENGTH) 1,000 MG PREOP ONCALL PO (DC) Cefazolin Sodium (KEFZOL OR ANCEF) 2 GM 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 (DC) Gabapentin (NEURONTIN) 200 MG PREOP [...] no CVA tenderness, no muscle sp asm 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, oriented X 3, CNII-XII intact Skin: dry, intact Results Findings/Data: Laboratory Tests 08/03 08/03 08/03 08/02 0701 0406 0228 4 Blood Gas Puncture Site Art Line [place] Art Line Art L ine [...] %) 27 L 26 L 26 L 26 L ABG Hemoglobin (12.5 - 16.9 G/DL) [...] Cannula Cannula Leonel annemarie 08/02 08/02 08/02 0339 1544 1417 Blood Gas Puncture Site [place] O2 Saturation (90 - 100 [...] (3.4 - 5.0 g/dL) 3.60 08/027 7 5 2043 1949 Chemistry Sodium (134 - 147 [...] INR (0.8 - 1.2) 1.3 H PTT (Levy) (25.0 - 39.5 Seconds) 27.4 PT Patient/Control [...] %) 7.6 L 3.4 L 9.7 L Sanders % (Auto) (4.8 - 9.0 %) 17.9 H 15.9 H 12.3 H Eos % (Auto) (0.3 - 3.7 %) 0.0 L 0.0 L 0.4 Baso % (Auto) (0.0 - 2.0 %) 0.1 0.1 0.3 Neut # (Auto) (2.0 - 7.6 x10 3/uL) 9.38 H 11.24 H 20.85 H Lymph # (Auto) (1.0 - 3.8 x10 3/uL) 0.96 L 0.48 L 2.64 Sanders # (Auto) (0.1 - 0.8 x10 3/uL) [...] MD on 0 08/04/22 at 1728 RPT #:[id number] END OF REPORT 2022-08-03 13:40:00-00:00 [facility]L [facility] Neurology Progress Note REPORT#:[id number] REPORT STATUS: Signed DATE:08/03/22 TIME: 1340 PATIENT: MARY DALY UNIT #: [id number] ROOM/BED: [place] [address] : 53 AGE: 66 SEX: M ATTEND: Marcella Loaiza od, MD ADM AUTHOR: Sam Fallon MD * ALL edits or amendments must be made on the Sembra[employer]/computer document * Subjective Chief complaint: chest pain [...] Meds + DC'd Last 24 Hrs Ipratropium Valdez (ATROVENT) 500 MCG RTQ2H PRN PRN INH [...] Glycol (MIRALAX) 17 GM DAILY PO Ipratropium Valdez (ATROVENT) 500 MCG RTQ6H PRN PRN INH Pantoprazole (PROTONIX) 40 MG DAILY@0600 PO Docusate Sodium (COLACE) 100 MG BID PO Gabapentin (NEURONTIN) 200 MG BID PO Metoprolol Tartrate (LOPRESSOR) 12.5 MG Q12HR PO Sennosides (Senna Lax 8.6 MG TABLET) 17.2 MG BED TIME PO Aspirin (ASPIRIN) 81 MG DAILY PO Ipratropium Valdez (ATROVENT) 500 MCG RTQ4H INH Amiodarone HCl [...] medical h istory of hypertension, hyperlipidemia, diverticulitis, ND, gout, tempor al arteritis and CAD who was admitted to [facility] on July 28 electively for a lef t heart cath. Neuro exam demonstrates no focal deficits. Impression: Multivessel coronary artery disease H/O Temporal Arteritis Prior ND with PCI Hypertension Plan: - patient is s/p CABG. No new deficits. Neurolog y will sign off at this time. Electronically Signed by Sam Fallon MD 08/03/22 at 1754 [facility] #:[id number] END OF REPORT 2022-08-03 08:16:00-00:00 [id number] [place] [address] PATIENT NAME: MARY DALY ADMIT DATE: 07/30/22 ACCOUNT NO: [id number] [place]OM NO: [facility] [place] AGE: 66 REPORT TYPE: CARDIAC CATHETERIZATION REPORT SEX: M ADMITTING PHYSICIAN:Anthony Loaiza MD ATTENDING PHYSICIAN:Anthony Loaiza MD PROCEDURE DATE: PROCEDURE PERFORMED: 1. Selective coronary angiogram. 2. Balloon angioplasty of mid LAD severe stenosi s. 3. Failed PCI of mid LAD stenosis. INDICATIONS: Severe coronary artery disease with active chest pain. ACCESS: Right radial artery, a 6-Japanese closed w ith TR band. COMPLICATIONS: None. BLEEDING: Less than 20 mL TOTAL SEDATION TIME: Was 45 minutes. DESCRIPTION OF PROCEDURE: Af ter risks, benefits and alternatives were explained to the patient, the patient agreed to pr oceed and signed informed consent. The patient was brought into [facility] catheterization laboratory, prepped and draped in sterile fashion and then I accessed the radia l artery using pediatric micropuncture kit, placed a 6-Japanese slender sheath and took a 5-Japanese [place] 4 catheter into the aortic tj t, engaged the left main and right coronary artery, took standard views and then I took a 6-Japanese X B 3.5 guide into the aortic [...] has mid 50%. 4. RCA is a INSPECTOR PAWNSHOP DETAIL proximally with auto collaterals and ADEN 1 flow. CONCLUSION: Severe coronary artery disease, mult ivessel. PLAN: Consult CT surgery for bypass due to the d ifficulty of intervention. PATIENT NAME: MARY DALY 2 Dictated By: Sam Price MD Date Dictated: 08/03/2022 08:16:37 Date Transcribed: 08/03/2022 09:11:08 SR/SVR Receipt ID: [id number] Authenticated by Sam Price MD On 08/31/2022 10:56:05 AM Electronically Signed by Sam Price MD on at 1056 PATIENT NAME: MARY DALY 2 2022-08-03 08:05:00-00:00 [facility] ([facility]) Critical Care Progress Note REPORT#:[id number] REPORT STATUS: Signed DATE:08/03/22 TIME: 804 PATIENT: MARY DALY UNIT #: [id number] ROOM/BED: [place] [address] : 53 AGE: 66 SEX: M ATTEND: Marcella Loaiza od, MD ADM AUTHOR: Sterling Hidalgo MD * ALL edits or amendments must be made on the Sembra[employer]/computer document * Subjective Chief complaint: Chest pain [...] every 12 hours. His arterial line and [place] catheter will be discontinued. Chest tubes [...] Daly is a 66-year gentleman with past [facility] [place] history significant for coronary artery disease [...] Meds + DC'd Last 24 Hrs Ipratropium Valdez (ATROVENT) 500 MCG RTQ2H PRN PRN INH [...] Glycol (MIRALAX) 17 GM DAILY PO Ipratropium Valdez (ATROVENT) 500 MCG RTQ6H PRN PRN INH Pantoprazole (PROTONIX) 40 MG DAILY@0600 PO Docusate Sodium (COLACE) 100 MG BID PO Gabapentin (NEURONTIN) 200 MG BID PO Metoprolol Tartrate (LOPRESSOR) 12.5 MG Q12HR PO Sennosides (Senna Lax 8.6 MG TABLET) 17.2 MG BED TIME PO Aspirin (ASPIRIN) 81 MG DAILY PO Ipratropium Valdez (ATROVENT) 500 MCG RTQ4H INH Amiodarone HCl [...] 0 .STK-MED ONE .ROUTE ( DC) Rocuronium Valdez (ZEMURON) 0 .STK-MED ONE IV ( DC) [...] ) Calcium Chloride (CALCIUM CHLORIDE) 0 .STK-MED ONE IV (DC) Heparin Sodium (HEPARIN SODIUM) [...] Sodium (KEFZOL OR ANCEF) 2 GM 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 (DC) Gabapentin (NEURONTIN) 200 MG PREOP [...] (DC) Acetaminophen (TYLENOL EXTRA STRENGTH) 500 MG Q 4H PRN PRN PO (DC) Atropine Sulfate (ATROPINE [...] no clubbing, no cyanosis , no edema Neuro/PREMIUM NOTE INTEREST CALCULATOR CLERK: no motor deficits Wound/incision: Location: sternal wound Psychiatry: normal affect, normal mood, no hallu cinations Results Findings/data: Laboratory Tests 08/03 08/03 08/03 08/02 0701 0406 0228 9 Blood Gas Puncture Site Art Line [place] Art Line Art L ine [...] - 16.9 G/DL) 9.1 L 8.7 L 8.7 L 8.8 L VBG pH (7.33 - [...] Cannula Cannula Leonel annemarie 08/02 08/02 08/02 08/02 1949 1544 1417 1318 Blood Gas Puncture Site [place] O2 Saturation (90 - 100 [...] %) 25 L 33 L 27 L 28 L ABG Hemoglobin (12.5 - 16.9 G/DL) [...] (3.4 - 5.0 g/dL) 3.60 08/027 7 2044 2043 1949 Chemistry Sodium (134 - [...] INR (0.8 - 1.2) 1.3 H PTT (Levy) (25.0 - 39.5 Seconds) 27.4 PT Patient/Control [...] %) 7.6 L 3.4 L 9.7 L Sanders % (Auto) (4.8 - 9.0 %) 17.9 H 15.9 H 12.3 H Eos % (Auto) (0.3 - 3.7 %) 0.0 L 0.0 L 0.4 Baso % (Auto) (0.0 - 2.0 %) 0.1 0.1 0.3 Neut # (Auto) (2.0 - 7.6 x10 3/uL) 9.38 H 11.24 H 20.85 H Lymph # (Auto) (1.0 - 3.8 x10 3/uL) 0.96 L 0.48 L 2.64 Sanders # (Auto) (0.1 - 0.8 x10 3/uL) 2.27 H 2.23 H 3.34 H Eos # (Auto) (0.0 - 0.2 x10 3/uL) 0.00 0.00 0.1 0 Baso # (Auto) (0.0 - 0.2 x10 3/uL) 0.01 0.01 0 .07 Abs Immat Gran (auto) (0.00 - 0.03 x10 3/uL) 0. 06 H 0.06 H 0.22 H Add Manual Diff NO NO NO Immature Gran % (0.0 - 2.0 %) 0.5 0.4 0.8 Nucleated RBC % (0 - 0 %) 0.0 0.0 0.0 Nucleated RBCs # (Man) (0.0 - 0.1 x10 3/uL) 0. 00 0.00 0.00 Laboratory Tests 08/03/22 0230: [Embedded Image Not Available] 08/02/22 2047: [Embedded Image Not Available] 08/02/22 1523: [Embedded Image Not Available] 08/02/22 1522: [Embedded Image Not Available] Microbiology: 08/02 847 NASAL: MSSA Surveillance Screen - ORD 08/02 847 NASAL: MRSA DNA Surveillance Screen - ORD Radiology data Recent Impressions: RADIOLOGY - XR CHEST 1 V 08/02 7286 Report Impression - Status: SIGNED Entered: 08/02/2022 2312 IMPRESSION: No retained surgical needle is seen. [...] Daly is a 66-year gentleman with past [facility] [place] history significant for coronary artery disease [...] Patient has been on chronic steroid therapy [facility] e 2016, received stress dose steroids with hydrocortisone 100 mg IV Avoid further steroid dosing unless evidence of adrenal crisis SCDs for DVT prophylaxis Sterling Hidalgo MD [facility] 08/02/2022 3.57 PM 08/03/2022 Patient seen and discussed d uring MDR this morning in CVICU room #2485. Patient is postop day 1 after CABG x4. Complains of ches t pain, dyspnea this morning. Received ipratropium nebulizer without a ny relief. Has significant acid reflux symptoms with heartburn and dyspepsia. Patient w ill be started on IV Protonix 40 mg every 12 hours. His arterial line and [place] Dino catheter will be discontinued. Chest tubes [...] Daly is a 66-year gentleman with past [facility] [place] history significant for coronary artery disease [...] Both chest tubes to be retained DC Brune[place] Marie catheter and arterial line Central venous [...] SCDs for DVT prophylaxis Sterling Hidalgo MD [facility] 08/03/2022 11.13 AM Consultants: anesthesiology, cardiology, cardiov ascular surgery Code status: full code Plan discussed with: patient , consultants, nurse, interdisc care team, pharmacy/ pharmacist Critical care time: Minutes: 38 Electronically Signed by Sterling Hidalgo MD on 07/22 05/13 at 1113 RPT #:[id number] END OF REPORT 2022-08-03 07:11:00-00:00 [facility] ([facility]) Cardiology Progress Note REPORT#:[id number] REPORT STATUS: Signed DATE:08/03/22 TIME: 07 PATIENT: MARY DALY UNIT #: [id number] ROOM/BED: [place] [address] : 53 AGE: 66 SEX: M ATTEND: Marcella Loaiza od, MD ADM AUTHOR: Denton Chaparro MD * ALL edits or amendments must be made on the [employer] document * Subjective Chief complaint: no chest [...] 113/54 73 95 08/02 2300 108/58 78 08/02 2300 98.6 77 20 115/56 76 95 08/02 2230 98.6 79 21 114/59 77 95 08/02 2200 102/64 78 08/02 2200 98.6 79 15 113/55 74 95 08/02 2130 98.6 80 22 119/56 77 96 / 2100 98/63 75 / 2100 98.4 78 19 120/57 77 96 08/02 2030 98.2 78 20 126/58 79 96 08/02 2000 Nasal 2 cannula 08/02 2000 113/61 81 08/03 1999 98.2 78 28 124/56 78 97 / 1930 98.2 78 29 127/58 79 96 08/02 1916 96 Nasal 2 cannula 08/02 1900 107/58 77 08/02 1900 98.1 77 23 117/55 73 96 /12 1700 97/52 70 / 1700 96.4 73 19 121/50 72 99 06/12 1600 120/66 89 /12 1600 97.0 75 17 149/58 85 99 /12 1535 97.2 80 18 125/53 80 /12 1515 99 Simple 15 mask 08/02 0800 52 32 151/85 113 90 PATIENT WEIGHT: Weight (lb): 188 Weight (oz): 0.87 Weight (kg): 85.300 Medications: Active Meds + DC'd Last 24 Hrs Ipratropium Valdez (ATROVENT) 500 MCG RTQ2H PRN PRN INH [...] Glycol (MIRALAX) 17 GM DAILY PO Ipratropium Valdez (ATROVENT) 500 MCG RTQ6H MA N PRN INH Pantoprazole (PROTONIX) 40 MG DAILY@0600 PO Docusate Sodium (COLACE) 100 MG BID PO Gabapentin (NEURONTIN) 200 MG BID PO Metoprolol Tartrate (LOPRESSOR) 12.5 MG Q12HR PO Sennosides (Senna Lax 8.6 MG TABLET) 17.2 MG BED TIME PO Aspirin (ASPIRIN) 81 MG DAILY PO Ipratropium Valdez (ATROVENT) 500 MCG RTQ4H INH Amiodarone HCl [...] 0 .STK-MED ONE .ROUTE ( DC) Rocuronium Valdez (ZEMURON) 0 .STK-MED ONE IV ( DC) [...] Sodium (KEFZOL OR ANCEF) 2 GM 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 (DC) Gabapentin (NEURONTIN) 200 MG PREOP ONCALL PO (D C) Sodium Chloride (SODIUM CHLORIDE) 20 ML ASDIR IV (DC) Vancomycin HCl (VANCOMYCIN HCL) 1,250 MG PREOP O NCALL IV (DC) Sodium Chloride (SODIUM CHLORIDE 0.9%) 250 ML Verapamil HCl (ISOPTIN) 16.6 MG .Q24H ONE IV (DC ) Heparin Sodium (Porcine) (HEPARIN SODIUM) 1,66 0 [...] extremity: LE assessment: normal temperature, no edema 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, oriented X 3, normal speech Skin: dry, intact Psychiatry: normal affect Results Findings/Data: Laboratory Tests 08/03 08/03 08/03 08/02 0701 0406 0228 2044 Blood Gas Puncture Site Art Line [place] Art Line Art L ine [...] %) 27 L 26 L 26 L 26 L ABG Hemoglobin (12.5 - 16.9 G/DL) [...] Device Cannula Cannula Cannula Can rowdy 08/02 1544 1417 1318 Blood Gas Puncture Site [place] O2 Saturation (90 - 100 [...] (12.5 - 16.9 G/DL) 9.7 L 13.1 1 6.0 Sodium (134 - 147 mmol/L) 137 137 [...] 3.60 08/02 08/02 08/02 08/02 08/02 2207 7 2044 2043 194 Chemistry Sodium (134 - 147 mEq/L) 141 [...] %) 7.6 L 3.4 L 9.7 L Sanders % (Auto) (4.8 - 9.0 %) 17.9 H 15.9 H 12.3 H Eos % (Auto) (0.3 - 3.7 %) 0.0 L 0.0 L 0.4 Baso % (Auto) (0.0 - 2.0 %) 0.1 0.1 0.3 Neut # (Auto) (2.0 - 7.6 x10 3/uL) 9.38 H 11.24 H 20.85 H Lymph # (Auto) (1.0 - 3.8 x10 3/uL) 0.96 L 0.48 L 2.64 Sanders # (Auto) (0.1 - 0.8 x10 3/uL) [...] RADIOLOGY - XR CHEST 1 V 08/02 2876 Report Impression - Status: SIGNED Entered: 08/02/2022 5890 IMPRESSION: No retained surgical needle is seen. 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 - CAD s/p CABG [...] Denton Chaparro MD on at 0711 RPT #:[id number] END OF REPORT 2022-08-03 06:05:00-00:00 [id number] [place] [address] PATIENT NAME: MARY DALY ADMIT DATE: 07/30/22 ACCOUNT NO: [id number] ROOM NO: [id number] AGE: 66 REPORT TYPE: eELECTROCARDIOGRAM REPORT SEX: M ADMITTING PHYSICIAN:Anthony Loaiza MD ATTENDING PHYSICIAN:Anthony Loaiza MD Order: [id number] Test Reason : chest pain Test Date/Time [...] PATIENT NAME: MARY DALY 2 2022-08-03 03:51:00-00:00 [id number] [place] [address] PATIENT NAME: MARY DALY ADMIT DATE: 07/30/22 ACCOUNT NO: [id number] ROOM NO: G.2206 AGE: 66 REPORT TYPE: eELECTROCARDIOGRAM REPORT SEX: M ADMITTING PHYSICIAN:Anthony Loaiza MD ATTENDING PHYSICIAN:Anthony Loaiza MD Order: [id number] Test Reason : P/S CABG Test Date/Time [...] PATIENT NAME: MARY DALY 2 2022-08-02 15:55:00-00:00 [id number] [place] [address] PATIENT NAME: MARY DALY ADMIT DATE: 07/30/22 ACCOUNT NO: [id number] ROOM NO: G.2206 AGE: 66 REPORT TYPE: eELECTROCARDIOGRAM REPORT SEX: M ADMITTING PHYSICIAN:Anthony Loaiza MD ATTENDING PHYSICIAN:Anthony Loaiza MD Order: [id number] Test Reason : S/P CABG Test Date/Time Stamp: TueAug 02 2022 15:55:50 Blood Pressure : / mmHG Vent. Rate : 073 BPM Atrial Rate : 073 BPM P-R Int : 150 ms QRS Dur : 094 ms QT Int : 458 ms P-R-T Axes : 082 052 095 degre es QTc Int : 504 ms Normal sinus rhythm Nonspecific T wave abnormality Prolonged QT Abnormal ECG When compared with ECG of 01-AUG-2022 05:21, No changes Confirmed by MD CHAPARRO GERARD ([id number]) on 08/04/19 10:06:54 PM Referred By: Sam Price Confirmed by:DENTON PIÑA MD Electronically Signed by Denton Chaparro MD on 0 08/03/22 at 2206 PATIENT NAME: MARY DALY 80 2022-08-02 15:53:00-00:00 [facility] Critical Care Consult Note REPORT#:[id number] REPORT STATUS: Signed DATE:08/02/22 TIME: 1553 PATIENT: MARY DALY UNIT #: [id number] ROOM/BED: [place] [address] : 53 AGE: 66 SEX: M ATTEND: Marcella Loaiza od, MD ADM AUTHOR: Sterling Hidalgo MD * ALL edits or amendments must be made on the [employer]/computer document * History of Present Illness HPI Requesting clinician: Dr Kenneth Mccurdy Reason for consult: Coronary artery disease Status post CABG x5 and ILAA Elective ventilatory dependence for acute pulmon oli insufficiency following major cardiothoracic surgery Acute blood loss anemia cardiogenic shock Hyperglycemia Chief complaint: Chest pain PCP: PCP: Albino Torre MD HPI: Patient was brought to the [facility] room #2207 status post CABG x5 and [...] Coronary artery dis ease, Hypertension, Dyslipidemia, Prior ND, Steroid use. Additional medical history: Temproal arteritis [...] CLOPIDOGREL (PLAVIX) 75 MG PO DAILY 07/23/22 0 07/27/22 Strength: 75 MG TAB 1631 1406 metroNIDAZOLE (FLAGYL) 500 MG PO 07/23/2208/13 Strength: 500 MG TAB TID PRN 1631 [...] 1406 FAMOTIDINE (PEPCID) 20 MG PO DAILY 07/23/22 Strength: 20 MG TAB 1635 1406 amLODIPine (NORVASC) 10 MG PO DAILY 07/23/22 0 07/27/22 Strength: 10 MG TAB 1635 1406 LOSARTAN [...] 1,250 MG PREOP ONCALL 08/02 0500 CKD (VANCOMYCIN HCL) IV 08/02 2359 Sodium Chloride 250 ML (SODIUM CHLORIDE 0.9%) Autonomic Drugs Sig/Cory Start time Last Medication Dose Route Stop Time Status Admin Ipratropium Valdez 500 MCG RTQ2H PRN PRN 08/05 1326 AC (ATROVENT) INH 09/04 1325 Ipratropium Valdez 500 MCG RTQ4H 08/02 1600 AC (ATROVENT) INH 08/05 1326 Epinephrine 4 MG ASDIR 08/02 1330 AC (ADRENALIN CHLORIDE) IV 09/01 1329 Dextrose/Water 246 ML (DEXTROSE 5% WATER) Norepinephrine 250 ML TITRATE 08/02 1330 AC Bitartrate IV 09/01 1329 (NOREPINEPHRINE 8 MG/ NS 250 ML) Rocuronium Valdez 0 .STK-MED ONE 08/02 0910 DC (ZEMURON) IV Epinephrine HCl 250 ML .STK-MED ONE 08/02 0908 DC (EPINEPHrine 4 mg/ IV D5W 250 mL) Norepinephrine 250 ML .STK-MED ONE 08/02 0908 D C Bitartrate IV (NOREPINEPHRINE 8 MG/ NS 250 ML) Phenylephrine HCl 0 .STK-MED ONE 08/02 0858 DC (MARK-SYNEPHRINE 10MG/ .ROUTE ML AMP) Atropine Sulfate 0.5 MG ASDIR PRN 07/27 1600 A C (ATROPINE SULFATE IV 08/26 1559 0.1MG/ML SYR) Blood Derivatives Sig/Cory Start time Last Medication Dose Route Stop Time Status Admin Albumin Human 25 GM ASDIR PRN 08/02 1330 AC (ALBUMINAR 25%) IV 08/03 1326 Albumin Human 100 ML .STK-MED ONE 08/02 0900 DC (ALBUMINAR-25%) IV Blood Formation,Coagulation Sig/Cory Start time Last Medication Dose Route Stop Time Status Admin Ferrous Sulfate 325 MG DAILY 08/05 0900 AC (FERROUS SULFATE) PO 09/04 0859 Clopidogrel Bisulfate 75 MG DAILY 08/03 0900 AC (Plavix) PO 09/02 0859 Antithrombin III 0 .STK-MED ONE 08/02 1217 DC (Human) IV (Thrombate III) Heparin Sodium 0 .STK-MED ONE 08/02 1215 DC (HEPARIN SODIUM) .ROUTE Aminocaproic Acid 0 .STK-MED ONE 08/02 0907 DC (AMICAR) IV Heparin Sodium 0 .STK-MED ONE 08/02 09 DC (HEPARIN SODIUM) .ROUTE Protamine Sulfate 0 .STK-MED ONE 08/02 0907 DC (PROTAMINE SULFATE) IV Heparin Sodium 0 .STK-MED ONE 08/02 0900 DC (HEPARIN SODIUM) .ROUTE Heparin Sodium 0 ASDIR PRN 07/31 1000 AC (HEPARIN 5000 UNITS/ IV 08/30 0959 ML) Heparin Sodium 500 ML ASDIR 07/31 1000 CKD 07/22 0 (Porcine) IV 08/30 0959 1043 (HEPARIN 25,000 UNITS/ 1/2NS 500ML) Cardiovascular [...] AC 08/02 (RANEXA 500MG TAB) PO 08/27 205 0818 Hydralazine HCl 50 MG Q6H PRN PRN 07/28 1700 AC 07/28 (APRESOLINE) PO 08/27 1659 1840 Amlodipine Besylate 10 MG DAILY 07/28 09 AC 0 08/01 (NORVASC) PO 08/27 0859 08 Losartan Potassium 50 MG DAILY 07/28 0900 AC (COZAAR) PO 08/27 0859 08 Atorvastatin Calcium 10 MG BEDTIME 07/27 2315 D C 08/01 (LIPITOR) PO 08/26 2303 2044 Central Nervous System Agents Sig/Cory Start time Last Medication Dose Route Stop Time Status Admin Gabapentin 200 MG BID 08/02 2100 AC (NEURONTIN) PO 08/07 09 Aspirin 81 MG DAILY 08/02 192 AC (ASPIRIN) PO 09/01 192 Acetaminophen 650 MG Q4H PRN PRN 08/02 1330 AC (TYLENOL) PO 09/01 1329 Acetaminophen 650 MG Q4H PRN PRN 08/02 1330 AC (TYLENOL) RECTAL 09/01 1329 Magnesium Sulfate 100 ML ASDIR PRN 08/02 1330 A C (MAGNESIUM SULFATE IV 09/01 1329 4GM/SWFI 100ML) Magnesium Sulfate 50 ML ASDIR PRN 08/02 1330 AC (MAGNESIUM SULFATE IV 09/01 1329 2GM/SWFI 50ML) [...] Sodium Bicarbonate 0 .STK-MED ONE 08/02 0859 D C (SODIUM BICARBONATE) IV Sodium Chloride 20 ML [...] AC 07/28 ose Sodium EACH EYE 08/27 2159 220 (REFRESH TEARS) Gastrointestinal Drugs Sig/Cory Start time Last Medication Dose Route Stop Time Status Admin Bisacodyl 10 MG ONCE PRN 08/04 1200 AC (DULCOLAX) RECTAL 09/03 1159 Magnesium Hydroxide 30 ML ONCE PRN 08/04 1200 A C (MILK OF MAGNESIA) PO Polyethylene Glycol 17 GM DAILY 08/03 0900 AC (MIRALAX) PO 09/02 0859 Pantoprazole 40 MG DAILY@0600 08/03 0600 AC (PROTONIX) PO 09/02 0559 Docusate Sodium 100 MG BID 08/02 2100 AC (COLACE) PO 09/01 2058 Sennosides 17.2 MG BEDTIME 08/02 2100 AC (Senna Lax 8.6 MG PO 09/01 2058 TABLET) Ondansetron HCl 4 MG Q6H PRN PRN 08/02 1330 AC (ZOFRAN) IV 09/01 1329 Ondansetron HCl 0 .STK-MED ONE 08/02 0910 DC (ZOFRAN) .ROUTE Docusate Sodium 100 MG [...] 0800 Pulse 52 08/02 0800 Resp 32 08/02 0800 Temp 36.7 08/02 1999 O2 Delivery Room air 08/01 1944 24 hour I O ending at 0700: 08/02 0700 08/01 1900 Intake Total 880.00 Output Total 800 950 Balance -800 -70.00 Intake, IV 240.00 Intake, Oral 640 Output, Urine 800 950 Patient Weight and BMI Weight (kg): 85.300 BMI: 27.0 Medications: Active Meds + DC'd Last 24 Hrs Ipratropium Valdez (ATROVENT) 500 MCG RTQ2H PRN PRN INH [...] Aspirin (ASPIRIN) 81 MG DAILY PO Ipratropium Valdez (ATROVENT) 500 MCG RTQ4H INH Amiodarone HCl [...] 0 .STK-MED ONE .ROUTE ( DC) Rocuronium Valdez (ZEMURON) 0 .STK-MED ONE IV ( DC) [...] Sodium (KEFZOL OR ANCEF) 2 GM 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 (CKD) Gabapentin (NEURONTIN) 200 MG PREOP [...] no clubbing, no cyanosis , no edema Neuro/PREMIUM NOTE INTEREST CALCULATOR CLERK: no motor deficits Psychiatry: normal affect Results Findings/Data: Laboratory Tests 08/02/22 0427: [Embedded Image Not Available] Laboratory Tests 08/02 08/02 08/02 08/02 1544 1417 1318 1243 Blood Gas O2 Saturation (90 - 100 %) 96.4 99.9 99.9 100. 0 ABG pH (7.35 - 7.45) 7.300 L [...] %) 33 L 27 L 28 L 28 L ABG Hemoglobin (12.5 - 16.9 G/DL) [...] Coagulation INR (0.8 - 1.2) 1.1 PTT (Levy) (25.0 - 39.5 Seconds) 57.6 H PT Patient/Control Mix (9.3 - 12.9 SECONDS) 11 .8 Activated Coag Time (74 - 137 SEC) [...] % (Auto) (14.0 - 32.0 %) 29.5 Sanders % (Auto) (4.8 - 9.0 %) 10.5 H Eos % (Auto) (0.3 - 3.7 %) 2.9 Baso % (Auto) (0.0 - 2.0 %) 0.5 Neut # (Auto) (2.0 - 7.6 x10 3/uL) 5.68 Lymph # (Auto) (1.0 - 3.8 x10 3/uL) 2.98 Sanders # (Auto) (0.1 - 0.8 x10 3/uL) [...] - 0.1 x10 3/uL) 0.0 0 Microbiology: 08/02 847 NASAL: MSSA Surveillance Screen - ORD 08/02 847 NASAL: MRSA DNA Surveillance Screen - ORD Radiology data: Recent Impressions: RADIOLOGY - XR CHEST 1 V 08/02 1456 Report Impression - Status: SIGNED Entered: 08/02/2022 1505 IMPRESSION: No retained surgical needle is seen. Impression By: Johann Childs M.D. Results: labs reviewed, vital signs reviewed, [facility] personally rev'd, x-ray personally reviewed, current med [...] and Plan: [facility] status post CABG x5 and [...] Daly is a 66-year gentleman with past [facility] history significant for coronary artery disease stat [...] Patient has been on chronic steroid therapy [facility] e 2016, received stress dose steroids with hydrocortisone 100 mg IV Avoid further steroid dosing unless evidence of adrenal crisis SCDs for DVT prophylaxis Sterling Hidalgo MD [facility] 08/02/2022 3.57 PM Electronically Signed by Sterling Hidalgo MD on 07/22 04/15 at 1626 [facility] #:[id number] END OF REPORT 2022-08-02 14:31:00-00:00 [id number] [place] [address] PATIENT NAME: MARY DALY ADMIT DATE: 07/30/22 ACCOUNT NO: [id number] ROOM NO: [facility] AGE: 66 REPORT TYPE: OPERATIVE REPORT SEX: [...] 4. Posterior pericardiotomy. SURGEON: Ludin Mccurdy M.D. SWEATER OPERATOR: Mary Briggs. ANESTHESIOLOGIST: Dr. Brendon Copeland. [...] size. Arteriotomy was performe d with a [place] blade and extended with Richard scissors. A [...] size. A rteriotomy was performed with a [place] blade and extended with Richard scissors. A [...] in size. Arteriotomy was performed with a [place] blade and extended w ith Richard scissors. [...] in size. Arteriotomy was performed with a [place] blade and extended with Richard scissors. MITCHELL [...] One v entricular wire was placed. A 28-Japanese chest tube was placed in the mediastin [...] Date Transcribed: 08/02/2022 15:25:55 AALIYAH/CARMELLA Receipt ID: [id number] Authenticated and Edited by Kenneth Mccurdy MD On 08/04/22 9:28:47 AM at 0931 PATIENT NAME: MARY DALY 2 2022-08-02 14:25:00-00:00 [facility] Brief Op Note REPORT#:[id number] REPORT STATUS: Signed DATE:08/02/22 TIME: 1425 PATIENT: MARY DALY UNIT #: [id number] ROOM/BED: [place] [address] : 53 AGE: 66 SEX: M ATTEND: Marcella Loaiza od, MD ADM AUTHOR: Ludin Mccurdy MD * ALL edits or amendments must be made on the el [employer]/computer document * See Addendum Op/Inv Proc Note - Brief Pre-procedure diagnosis: CAD Post-procedure diagnosis: same as pre procedure dx Procedures performed: CABG x 4 (MITCHELL-LAD, SVG-OM1, SVG-OM2, SVG-PDA) ALAA EVH (LGSV) Posterior pericardiotomy Primary Surgeon: Calli Compensation Coordinator(s): Brigitte Findings: LAD-2mm Complications: none Estimated blood loss in ml's: 100 cc Specimens removed/altered: XIMENA at 1427 Addendum 1: 08/02/22 1710 by Mary Briggs MD I assisted Dr Mccurdy with t he tyson features of this operation including coronary dissection, CABGs and LAAA Mary Briggs MD Electronically Signed by Mary Briggs MD on 07/22 04/15 at 1711 RPT #:[id number] END OF REPORT 2022-08-02 11:51:00-00:00 [id number] [place] [address] PATIENT NAME: MARY DALY ADMIT DATE: 07/30/22 ACCOUNT NO: [id number] ROOM NO: G.3346 AGE: 66 REPORT TYPE: [...] Date Transcribed: 08/02/2022 12:06:12 /CARMELLA Receipt ID: [id number] Authenticated by FREDDY JI MD On 08/06/2022 01:31:51 PM Electronically Signed by Freddy Ji MD on at 0131 PATIENT NAME: MARY DALY 2 2022-08-02 08:40:00-00:[address] [facility] ([facility]) Hospitalist Progress Note REPORT#:[id number] REPORT STATUS: Signed DATE:08/02/22 TIME: 0840 PATIENT: MARY DALY UNIT #: [id number] ROOM/BED: [facility] : 53 AGE: 66 SEX: M ATTEND: Marcella Loaiza od, MD ADM AUTHOR: Luther Martin MAMMALOGIST * ALL edits or amendments must be made on the [employer]/computer document * Luther Martin 08/02/22 0840: Subjective [...] 08/01 2100 61 29 128/65 89 92 08/01 2000 36.7 61 22 158/76 109 91 08/01 [...] Sodium (KEFZOL OR ANCEF) 2 GM 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 (CKD) Gabapentin (NEURONTIN) 200 MG PREOP [...] no CVA tenderness, no muscle sp asm 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, oriented X 3, CNII-XII intact Skin: [...] % (Auto) (14.0 - 32.0 %) 29.5 Sanders % (Auto) (4.8 - 9.0 %) 10.5 H Eos % (Auto) (0.3 - 3.7 %) 2.9 Baso % (Auto) (0.0 - 2.0 %) 0.5 Neut # (Auto) (2.0 - 7.6 x10 3/uL) 5.68 Lymph # (Auto) (1.0 - 3.8 x10 3/uL) 2.98 Sanders # (Auto) (0.1 - 0.8 x10 3/uL) [...] repalce as needed. Monitor. Anthony Loaiza 08/02/22 181: Attestations Physician Attestation Agree w/findings plan: Patient seen and examined, I agree with the findings and plans as discussed with and documented by Luther Montiel NP Electronically Signed by Luther Martin NP on 02/12 at 0843 Electronically Signed by Anthony Loaiza MD on 0 08/02/22 at 4565 RPT #:[id number] END OF REPORT 2022-08-01 09:17:00-00:00 [facility] ([facility]) Hospitalist Progress Note REPORT#:[id number] REPORT STATUS: Signed DATE:08/01/22 TIME: 916 PATIENT: MARY DALY UNIT #: [id number] ROOM/BED: [place] [address] : 53 AGE: 66 SEX: M ATTEND: Marcella Loaiza od, MD ADM AUTHOR: Luther Martin MAMMALOGIST * ALL edits or amendments must be made on the [employer]/computer document * Luther Martin 08/01/22916: Subjective Chief [...] 90 08/01 0501 96 156/81 111 95 08/01 0400 51 12 108/58 80 93 08/01 0300 57 15 122/56 80 94 08/01 0244 56 11 121/58 83 93 08/01 0100 53 16 101/58 76 92 08/01 0007 59 137/84 100 95 07/31 2300 54 23 128/76 97 94 07/31 2200 54 18 122/64 88 96 07/31 2101 50 20 112/59 83 94 07/31 2009 59 134/97 108 96 07/31 2000 36.6 07/31 1901 55 18 129/88 101 97 07/31 [...] Sodium (KEFZOL OR ANCEF) 2 GM 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 (CKD) Gabapentin (NEURONTIN) 200 MG PREOP [...] no CVA tenderness, no muscle sp asm 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, oriented X 3, CNII-XII intact Skin: [...] - 335 PRU) 191 Laboratory Tests 08/01 1019 Hematology WBC (4.5 - 11.0 x10 [...] (Auto) (14.0 - 32.0 %) 29.2 25.7 Sanders % (Auto) (4.8 - 9.0 %) 9.5 H 11.8 H Eos % (Auto) (0.3 - 3.7 %) 2.1 2.2 Baso % (Auto) (0.0 - 2.0 %) 0.4 0.6 Neut # (Auto) (2.0 - 7.6 x10 3/uL) 5.90 6.30 Lymph # (Auto) (1.0 - 3.8 x10 3/uL) 2.94 2.73 Sanders # (Auto) (0.1 - 0.8 x10 3/uL) [...] MD on 0 08/02/22 at 1836 RPT #:[id number] END OF REPORT 2022-08-01 08:41:00-00:00 [facility] Cardiothoracic Surgery Prog REPORT#:[id number] REPORT STATUS: Signed DATE:08/01/22 TIME: 840 PATIENT: MARY DALY UNIT #: [id number] ROOM/BED: [facility] : 53 AGE: 66 SEX: M ATTEND: Marcella Loaiza od, MD ADM AUTHOR: Rosalind Mendez Physic * ALL edits or amendments must be made on the [employer]/computer document * Subjective Chief complaint: Chest Pains, [...] range of motion, painless range of motion 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, oriented X 3 Skin: dry, intact [...] cardiovascular surgery at 0848 at 1112 RPT #:[id number] END OF REPORT 2022-08-01 08:33:00-00:00 [facility] Cardiology Progress Note REPORT#:[id number] REPORT STATUS: Signed DATE:08/01/22 TIME: 832 PATIENT: MARY DALY UNIT #: [id number] ROOM/BED: [place] [address] : 53 AGE: 66 SEX: M ATTEND: Marcella Loaiza od, MD ADM AUTHOR: Sharri Noonan NP * ALL edits or amendments must be made on the [employer]/computer document * Subjective Chief complaint: no chest [...] Verapamil HCl 16.6 MG .Q24H ONE 08/02 050 CKD Heparin Sodium 1,660 UNIT IV 08/03 0459 (Porcine) Sodium Bicarbonate 0.7 ML Nitroglycerin/ 8.3 MG Dextrose Lactated Ringer's 949.5 ML Magnesium Sulfate 50 ML ONCE ONE 08/01 0645 DC 08/01 IV 08/01 0844 0659 Nebivolol 10 MG BEDTIME 07/31 2100 AC 07/31 PO 08/30 2058 203 Nitroglycerin/ 250 ML ASDIR 07/31 1415 AC [...] ose Sodium EACH EYE 08/27 2158 2205 Docusate Sodium 100 MG BID 07/28 2100 AC 08/01 PO 08/27 205 0812 Ranolazine 500 MG Q12HR 07/28 2100 AC 08/01 PO 08/27 2059 0810 Al Hydrox/Mg Hydrox/ 30 ML Q4H PRN PRN 07/28 17 30 AC 07/28 Simethicone PO 08/27 1729 1831 Hydralazine HCl 50 MG Q6H PRN PRN 07/28 1700 AC 07/28 PO 08/27 1659 1840 Amlodipine Besylate 10 MG DAILY 07/28 09 AC 0 08/01 PO 08/27 0859 0810 Aspirin 81 MG DAILY 07/28 899 AC 08/01 PO 08/27 0859 0809 Famotidine 20 MG DAILY 07/28 899 AC 08/01 PO 08/27 0859 0810 Losartan Potassium 50 MG DAILY 07/28 899 AC 0 08/01 PO 08/27 0859 0811 Prednisone 2 MG C BK 07/29 799 AC 08/01 PO 08/27 0759 0809 Atorvastatin [...] 1559 Sodium Chloride 500 ML ASDIR PRN / 1600 AC IV 08/26 1559 24 hour [...] 08/01 0901 74 28 149/65 94 92 08/01 0801 60 26 164/76 108 93 08/01 0700 57 17 135/76 100 91 08/01 0600 61 23 147/75 104 90 08/01 0501 96 156/81 111 95 08/01 0400 51 12 108/58 80 93 08/01 0300 57 15 122/56 80 94 08/01 0244 56 11 121/58 83 93 08/01 0100 53 16 101/58 76 92 08/01 0007 59 137/84 100 95 07/31 2300 54 23 128/76 97 94 07/31 2200 54 18 122/64 88 96 07/31 2101 50 20 112/59 83 94 07/31 2009 59 134/97 108 96 08/01 1999 36.6 07/31 1901 55 18 129/88 101 97 07/31 1817 57 25 138/74 100 98 07/31 1701 58 28 122/70 90 98 PATIENT WEIGHT: Weight (lb): 188 Weight (oz): 0.87 Weight (kg): 85.300 Status post: 07/27 [facility] Physical Exam General appearance: alert, awake, [...] extremity: LE assessment: normal temperature, no edema 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, oriented X 3, normal speech Skin: dry, intact Psychiatry: normal affect Diagnosis, Assessment Plan Consultants: cardiology, cardiovascular surgery Free Text DxA P Notes Free Text DxA P Notes: Mr. Daly is a pleasant 66 y/o male w/ PMHx: CAD s/p PCI, HTN, HLD, T2DM, GERD , temporal arteritis (on prednisone) presented t o [facility] for elective PCI. - CAD. s/p LHC: [...] MDM per Dr. Osorio Electronically Signed by Shrari Noonan NP on 0 08/01/22 at 1639 at 2242 RPT #:[id number] END OF REPORT 2022-07-31 13:44:00-00:00 [id number] [place] [address] PATIENT NAME: MARY DALY ADMIT DATE: 07/30/22 ACCOUNT NO: [id number] ROOM NO: G.2203 AGE: 66 REPORT TYPE: eELECTROCARDIOGRAM REPORT SEX: M ADMITTING PHYSICIAN:Anthony Loaiza MD ATTENDING PHYSICIAN:Anthony Loaiza MD Order: [id number] Test Reason : PCI Postprocedure Test Date/Time [...] Sam Price Confirmed by:MIGDALIA OSORIO MD at 1607 PATIENT NAME: MARY DALY 2 2022-07-31 12:06:00-00:[address] [facility] ([facility]) Cardiology Progress Note REPORT#:[id number] REPORT STATUS: Signed DATE:07/31/22 TIME: 1206 PATIENT: MARY DALY UNIT #: [id number] ROOM/BED: [facility] : 53 AGE: 66 SEX: M ATTEND: Marcella Loaiza od, MD ADM AUTHOR: Sharri Noonan NP * ALL edits or amendments must be made on the el [employer]/computer document * Subjective Chief complaint: reports chest [...] ML Carboxymethylcellul- 1 DROP QID PRN 07/28 2200 AC 07/28 ose Sodium EACH EYE 08/27 215 2205 Docusate Sodium 100 MG BID 07/28 2100 AC 07/31 PO 08/27 2059 0811 Ranolazine 500 MG Q12HR 07/28 2100 AC 07/31 PO 08/27 2059 0811 Al Hydrox/Mg Hydrox/ 30 ML Q4H PRN PRN 07/28 17 30 AC 07/28 Simethicone PO 08/27 1729 1831 Hydralazine HCl 50 MG Q6H PRN PRN 07/28 1700 AC 07/28 PO 08/27 1659 1840 Amlodipine Besylate 10 MG DAILY 06899 AC 07/31 PO 08/27 0859 0812 Aspirin 81 [...] BEDTIME 07/27 2315 AC 07/30 PO 08/27 205 204 Prednisone 1 MG BEDTIME 07/27 2315 AC 07/30 PO 08/26 2314 204 Acetaminophen 500 MG Q4H PRN PRN 07/27 [...] Flow FiO2 Mean Ox Delivery Rate 07/31 1525 36.8 52 15 140/69 0.0 94 07/31 1505 140/69 99 07/31 1500 53 13 94 07/31 1220 36.6 55 20 129/62 0.0 95 07/31 0659 36.5 54 21 134/76 0.0 97 07/31 0318 36.6 52 14 112/57 0.0 94 Room air 07/31 0315 53 17 112/57 81 94 / 0100 50 13 95 /10 0000 54 15 94 07/30 2310 55 [...] 14.73 Weight (kg): 86.600 Status post: 07/27 [facility] Physical Exam General appearance: alert, awake, [...] extremity: LE assessment: normal temperature, no edema 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, oriented X 3, normal speech Psychiatry: normal affect Diagnosis, Assessment Plan Consultants: cardiology, cardiovascular surgery Free Text DxA P Notes Free Text DxA P Notes: Mr. Daly is a pleasant 66 y/o male w/ PMHx: CAD s/p PCI, HTN, HLD, T2DM, GERD , temporal arteritis (on prednisone) presented t o [facility] for elective PCI. - CAD. s/p [facility]: multivessels disease Continue BB, statins, ASA, [...] NP on 0 07/31/22 at 1617 at 9217 RPT #:[id number] END OF REPORT 2022-07-31 09:26:00-00:00 [facility] Hospitalist Progress Note REPORT#:[id number] REPORT STATUS: Signed DATE:07/31/22 TIME: 925 PATIENT: MARY DALY UNIT #: [id number] ROOM/BED: [place] [address] : 53 AGE: 66 SEX: M ATTEND: Marcella Loaiza od, MD ADM AUTHOR: Luther Martin MAMMALOGIST * ALL edits or amendments must be made on the [employer]/computer document * Luther Martin 07/31/22925: Subjective Chief complaint: He is waiting for [...] low FiO2 Mean Ox Delivery Rate 07/31 0659 36.5 54 21 134/76 0.0 [...] no CVA tenderness, no muscle sp asm 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, oriented X 3, CNII-XII intact Skin: [...] by Luther Montiel NP Electronically Signed by Luhter Martin NP on 12/13 at 0927 Electronically Signed by Anthony Loaiza MD on 0 07/31/22 at 2110 [facility] #:[id number] END OF REPORT 2022-07-31 04:45:00-00:00 [facility] Cardiothoracic Surgery Prog REPORT#:[id number] REPORT STATUS: Signed DATE:07/31/22 TIME: 444 PATIENT: MARY DALY UNIT #: [id number] ROOM/BED: [place] [address] : 53 AGE: 66 SEX: M ATTEND: Marcella Loaiza od, MD ADM AUTHOR: Rosalind Mendez Physic * ALL edits or amendments must be made on the [employer]/computer document * Subjective Chief complaint: Chest Pains, [...] I O ending at 0700: 07/31 0700 06 1900 Intake Total 250 800 Output Total [...] range of motion, painless range of motion 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, oriented X 3 Skin: dry, intact [...] cardiovascular surgery at 0845 at 1111 RPT #:[id number] END OF REPORT 2022-07-30 11:31:00-00:[address] [facility] ([facility] Neurology Progress Note REPORT#:[id number] REPORT STATUS: Signed DATE:07/30/22 TIME: 1131 PATIENT: MARY DALY UNIT #: [id number] ROOM/BED: [place] [address] : 53 AGE: 66 SEX: M ATTEND: [...] 140/69 07/31 1525 B/P Mean 0.0 07/31 152 Temp 36.8 07/31 1525 Pulse 52 07/31 1525 Resp 15 07/31 152 O2 Delivery Room air 07/31 0318 PATIENT [...] medical h istory of hypertension, hyperlipidemia, diverticulitis, ND, gout, tempor al arteritis and CAD who was admitted to [facility] on July 28 electively for a lef t heart cath. Neuro exam demonstrates no focal deficits. Impression: Multivessel coronary artery disease H/O Temporal Arteritis Prior ND with PCI Hypertension Plan: - CTA H N reviewed personally though rad iology read is pending. Patient has an azygous CHEYANNE on the R with robust Acomm and BL A1 segments. R SIGNALS INTELLIGENCE ANALYST is in origin. Hard plaque in BL [...] as long as adequate CPP maintained. 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 Electronically Signed by Sam Fallon MD 07/31/22 at 1757 [facility] #:[id number] END OF REPORT 2022-07-30 09:29:00-00:00 [facility] ([facility]) Hospitalist Progress Note REPORT#:[id number] REPORT STATUS: Signed DATE:07/30/22 TIME: 928 PATIENT: MARY DALY UNIT #: [id number] ROOM/BED: [place] [address] : 53 AGE: 66 SEX: M ATTEND: Marlo Loaiza MD ADM AUTHOR: Luther Martin MAMMALOGIST * ALL edits or amendments must be made on the [employer] document * Luther Martin 07/30/22 09: Subjective Chief complaint: He is stable. 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 ([facility]) Cardiology Progress Note REPORT#:[id number] REPORT STATUS: Signed DATE:07/30/22 TIME: 855 PATIENT: MARY DALY UNIT #: [id number] ROOM/BED: [place] [address] : 53 AGE: 66 SEX: M ATTEND: Marcella Loaiza od, MD ADM AUTHOR: Harper Rae NP * ALL edits or amendments must be made on the [employer]/computer document * Subjective Chief complaint: Doing okay. [...] 1134 97.3 53 18 137/81 99.6 93 / 0652 97.9 48 18 138/88 104.5 93 07/30 0313 97.5 49 14 155/83 0.0 97 Room air 07/30 0100 51 12 / 2308 97.5 49 14 136/70 0.0 97 Room air 07/29 2307 50 11 136/70 97 / 2105 51 17 143/74 103 /08 1833 97.5 57 14 130/66 0.0 95 Room air / 1504 97.9 54 18 144/79 0.0 94 [...] ML DIR PRN IV Status post: 07/27 [facility] Physical Exam General appearance: alert, o [...] extremity: LE assessment: normal temperature, no edema 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, oriented X 3, normal speech Psychiatry: [...] Coagulation INR (0.8 - 1.2) 1.0 PTT (Levy) (25.0 - 39.5 Seconds) 28.3 PT Patient/Control Mix (9.3 - 12.9 SECONDS) 11 .2 Plt P2Y12 React Units (182 - 335 [...] % (Auto) (14.0 - 32.0 %) 29.6 Sanders % (Auto) (4.8 - 9.0 %) 11.0 H Eos % (Auto) (0.3 - 3.7 %) 1.4 Baso % (Auto) (0.0 - 2.0 %) 0.4 Neut # (Auto) (2.0 - 7.6 x10 3/uL) 6.63 Lymph # (Auto) (1.0 - 3.8 x10 3/uL) 3.43 Sanders # (Auto) (0.1 - 0.8 x10 3/uL) [...] Ag (Rapid) (Negative) Negative Laboratory Tests 07/30 030 Chemistry B-Natriuretic Peptide (0 - 100 PG/ML) [...] temporal arteritis (on prednisone) pre sented to [facility] yesterday for elective PCI. Dr. Sainz is [...] Denton Chaparro MD on at 1740 RPT #:[id number] END OF REPORT 2022-07-30 05:05:00-00:00 [facility] Cardiothoracic Surgery Prog REPORT#:[id number] REPORT STATUS: Signed DATE:07/30/22 TIME: 050 PATIENT: MARY DALY UNIT #: [id number] ROOM/BED: [place] [address] : 53 AGE: 66 SEX: M ATTEND: Marcella Loaiza od, MD ADM AUTHOR: Rosalind Mendez Physic * ALL edits or amendments must be made on the [employer]/computer document * Subjective Chief complaint: Chest Pains, [...] range of motion, painless range of motion 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, oriented X 3 Skin: dry, intact [...] cardiology, cardiovascular surgery at 0948 at 1552 [facility] #:[id number] END OF REPORT 2022-07-29 22:34:00-00:00 [id number] [place], [place] [address] PATIENT NAME: MARY DALY ADMIT DATE: 07/27/22 ACCOUNT NO: [id number] ROOM NO: G.3341 AGE: 66 REPORT TYPE: eECHOCARDIOGRAM REPORT SEX: M ADMITTING PHYSICIAN:Anthony Loaiza MD ATTENDING PHYSICIAN:Anthony Loaiza MD *[facility] [address] [place] [address] Transthoracic Echocardiogram Patient: Mary Daly Study Date: 07/29/2022 BP: 130 / 66 Location: [facility] URN: [id number] 6182 : 1955 Age: 66 Height: 70 in / 177.8 cm Gender: M Weight: 192 .6 lb / 87.5 kg BMI/BSA: 27.7 kg/m 2 / 2.06 m 2 *Ordering Physician: * Rosalind Mendez *Interpreting Physician: * Denton Chaparro MD *Improvement Advisor: PADDY Lemus Indications: PRE OP. Study data: Transthoracic echocardiogram. Proced ure: Transthoracic echocardiography was performed. Images were obta ined using a Teal Orbit cardiac ultrasound machine. Intravenous contrast (Optiso n, [...] cm 2 --------- Pulmonic valve Value Ref MA v, ED 0.58 m/sec --------- Tricuspid valve Value Ref TR peak v 1.21 m/sec <=2.8 Peak RV-RA 6 mm Hg --------- grad, S Conclusions Summary: 1. Left ventricle: The [...] PATIENT NAME: MARY DALY 2 2022-07-29 15:52:00-00:00 [facility] Neurology Consultation Note REPORT#:[id number] REPORT STATUS: Signed DATE:07/29/22 TIME: 1551 PATIENT: MARY DALY UNIT #: [id number] ROOM/BED: [place] [address] : 53 AGE: 66 SEX: M ATTEND: Marcella Loaiza od, MD ADM AUTHOR: Frieda Abdi * ALL edits or amendments must be made on the [employer]/computer document * Frieda Abdi 07/29/22 1552: History of Present Illness HPI Requesting clinician: Anthony Loaiza MD Reason for consult: H/O Temporal Arteritis, Pre-op CABG PCP: PCP: Albino Torre MD HPI: Mr. Daly is a 66-year-old male with a past [facility] history of hypertension, hyperlipidemia, diverticulitis, ND, gout, tempor al arteritis and CAD who was admitted to [facility] on July 28 electively for a lef [...] Coronary artery dis ease, Hypertension, Dyslipidemia, Prior ND, Steroid use. Additional medical history: Temproal arteritis [...] Pulse Ox 94 / 1504 B/P 144/79 /08 1504 B/P Mean 0.0 /08 1504 Temp 97.9 /08 1504 Pulse 54 /08 1504 Resp 18 06/08 1504 O2 Delivery Room air 07/29 1149 [...] XI, XII: Normal strength to SCM bilaterally. Laureano allen protrudes to the midline Motor: Normal Tone [...] pH (5.0 - 7.0) 5.0 Ur Specific [place] (1.005 - 1.030) 1.017 Urine Protein (NEGATIVE) [...] medical h istory of hypertension, hyperlipidemia, diverticulitis, ND, gout, tempor al arteritis and CAD who was admitted to [facility] on Asiya 7 6 electively for a lef t heart cath. Neuro exam demonstrates no focal deficits. Impression: Multivessel coronary artery disease H/O Temporal Arteritis Prior ND with PCI Hypertension Plan: We will proceed [...] Exam and Plan of Care. Frieda Abdi, ESTEVAN-MAMMALOGIST for [facility] Sam Fallon 07/29/22 2292: History - Adult longitudinal Allergies: Coded Allergies: [...] findings and plan as documented by Frieda Green, MAMMALOGIST. Patient denies any history of stroke or [...] disease as there is some association betw jaycen the two. However, any changes in this patient in terms of his large ar teries are more likely to be atherosclerotic in origin. His ICA appea r widely patent on doppler but limited eval of the posterior circulation is available w ith that modality. Physician specific service time 30min Electronically Signed by Sam Fallon MD n 07/29/22 at 2123 at 1401 RPT #:[id number] END OF REPORT 2022-07-29 09:39:00-00:00 [facility] RE[facility]#:[id number] REPORT STATUS: Signed DATE:07/29/22 TIME: 938 PATIENT: MARY DALY UNIT #: [id number] ROOM/BED: [place] [address] : 53 AGE: 66 SEX: M ATTEND: Marcella Loaiza od, MD ADM AUTHOR: Rosalind Mendez Physic * ALL edits or amendments must be made on the [employer]/computer document * Subjective Chief complaint: Chest Pains, [...] range of motion, painless range of motion 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, oriented X 3 Skin: dry, intact [...] pH (5.0 - 7.0) 5.0 Ur Specific [place] (1.005 - 1.030) 1.017 Urine Protein (NEGATIVE) [...] cardiovascular surgery at 1720 at 1552 RPT #:[id number] END OF REPORT 2022-07-29 09:16:00-00:00 [facility] Hospitalist Progress Note REPORT#:[id number] REPORT STATUS: Signed DATE:07/29/22 TIME: 915 PATIENT: MARY DALY UNIT #: [id number] ROOM/BED: [place] [address] : 53 AGE: 66 SEX: M ATTEND: Marcella Loaiza od, MD ADM AUTHOR: Luther Martin MAMMALOGIST * ALL edits or amendments must be made on the [employer]/computer document * Luther Martin 07/29/22 0916: Subjective [...] 24 hour I O ending at 0700: 08 0700 06/07 1900 Intake Total 240 1080 [...] no CVA tenderness, no muscle sp asm 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, oriented X 3, CNII-XII intact Skin: dry, intact Results Findings/Data: Laboratory Tests 06/08 06/08 0304 0304 Chemistry Sodium (134 - 147 [...] pH (5.0 - 7.0) 5.0 Ur Specific [place] (1.005 - 1.030) 1.017 Urine Protein (NEGATIVE) [...] veins b ilaterally as above. Impression By: Hrei Marrero M.D. ULTRASOUND - DUP [place] [...] MD on 0 07/29/22 at 2143 RPT #:[id number] END OF REPORT 2022-07-29 07:32:00-00:00 [facility] Cardiology Progress Note REPORT#:[id number] REPORT STATUS: Signed DATE:07/29/22 TIME: 731 PATIENT: MARY DALY UNIT #: [id number] ROOM[facility]BED: [facility] : 53 AGE: 66 SEX: M ATTEND: Marcella Loaiza od, MD ADM AUTHOR: Denton Chaparro MD * ALL edits or amendments must be made on the [employer]/computer document * Subjective Chief complaint: No change sob HPI: Mr. Daly is a pleasant 66 y/o male w/ PMHx: CAD s/p PCI, HTN, HLD, T2DM, GERD , temporal arteritis (on prednisone) pre sented to [facility] yesterday for elective PCI. Dr. Sainz is [...] for significant stenosis . At present, on , NAD. Objective General VS/I O: 24 hour I [...] extremity: LE assessment: normal temperature, no edema 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, oriented X 3, normal speech Psychiatry: normal affect Diagnosis, Assessment Plan Consultants: cardiology, cardiovascular surgery Free Text DxA P Notes Free Text DxA P Notes: Mr. Daly is a pleasant 66 y/o male w/ PMHx: CAD s/p PCI, HTN, HLD, T2DM, GERD , temporal arteritis (on prednisone) pre sented to [facility] yesterday for elective PCI. Dr. Sainz is [...] Denton Chaparro MD on at 0732 RPT #:[id number] END OF REPORT 2022-07-28 16:23:00-00:[address] [facility] ([facility]) Cardiology Consultation REPORT#:[id number] REPORT STATUS: Signed DATE:07/28/22 TIME: 1623 PATIENT: MARY DALY UNIT #: [id number] ROOM/BED: [address] : 53 AGE: 66 SEX: M ATTEND: Marcella Loaiza od, MD ADM AUTHOR: Harper Rae NP * ALL edits or amendments must be made on the [employer]/computer document * History of Present Illness HPI Requesting Clinician: Dr. Temple Reason for consult: CAD, CABG evaluation Chief complaint: cp sob PCP: PCP: Albino Torre MD HPI: Mr. Daly is a pleasant 66 y/o male w/ PMHx: CAD s/p PCI, HTN, HLD, T2DM, GERD , temporal arteritis (on prednisone) pre sented to [facility] yesterday for elective PCI. Dr. Sainz is [...] HOT 07/27/22) dexlansoprazole (UNKOWN 07/27/22) eszopiclone (From [facility]) (UNKNOWN 07/27/22) levofloxacin (UNKNOWN 07/27/22) meperidine (UNKNOWN [...] 67 20 159/89 0.0 94 Room air /07 0600 68 16 93 /07 0500 74 29 94 / 0400 78 27 93 06/07 0348 98.1 71 20 145/74 97.4 96 Room air 07/28 0300 70 13 94 07/28 0200 69 19 96 07/28 0100 72 14 93 07/28 0000 72 16 125/58 83 93 07/27 2300 72 26 96 07/27 2237 97.5 64 18 155/79 0.0 98 Room air 24 hour I O ending at 0700: 07/27 1900 07/28 0700 Intake Total 240 Output Total Balance 240 Intake, Oral 240 Number 1 Bowel Movements Patient 90.455 kg 87.5 kg Weight Weight Infant scale Standing scale Measurement Method PATIENT WEIGHT: [...] Sodium Chloride (SODIUM CHLORIDE 0.9%) 1,000 ML .[id number] ONE IV (DC) Sodium Chloride (SODIUM CHLORIDE [...] extremity: LE assessment: normal temperature, no edema 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, oriented X 3, normal speech Psychiatry: normal affect Results Findings/Data: Laboratory Tests 07/27 07/28 1736 0922 Coagulation Activated Coag Time (74 - 137 SEC) 305 H Plt P2Y12 React Units (182 - 335 PRU) 164 L Radiology Data: Recent Impressions: ULTRASOUND - DUP [place] 07/28 1144 Report Impression - Status: SIGNED Entered: 07/28/2022 8726 Impression: 1. Vein mapping of the greater saphenous veins b ilaterally as above. Impression By: GeronimoCSArlen Marrero M.D. ULTRASOUND - DUP EXTRACRANIAL LAKE [...] temporal arteritis (on prednisone) pre sented to [facility] yesterday for elective PCI. Dr. Sainz is [...] Flako Sainz MD on at 2000 RPT #:[id number] END OF REPORT 2022-07-28 12:13:00-00:[address] [facility] ([facility]) Cardiology Consultation REPORT#:[id number] REPORT STATUS: Signed DATE:07/28/22 TIME: 1213 PATIENT: MARY DALY UNIT #: [id number] [place]ED: [facility] [place] : 53 AGE: 67 SEX: M ATTEND: Marcella Loaiza od, MD ADM AUTHOR: Flako Sainz MD * ALL edits or amendments must be made on the Sembraire/computer document * History of Present Illness HPI Reason for consult: CAD Chief complaint: SOB HPI: Mr. Daly is a pleasant 66 y/o male w/ PMHx: CAD s/p PCI, HTN, HLD, T2DM, GERD , temporal arteritis (on prednisone) pre sented to [facility] yesterday for elective PCI. Patient experiences intermittent [...] 06/06 2300 72 26 96 06/06 2237 97.5 64 18 155/79 0.0 98 Room air 06/06 1357 98.0 50 16 164/77 97 Room air 06/06 1353 98.0 50 16 164/77 97 24 [...] Sodium Chloride (SODIUM CHLORIDE 0.9%) 1,000 ML .[id number] ONE IV (DC) Sodium Chloride (SODIUM CHLORIDE [...] extremity: LE assessment: normal temperature, no edema 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, oriented X 3, normal speech Psychiatry: [...] , temporal arteritis (on prednisone) presented t [facility] for elective PCI. Patient experiences intermittent shortne ss of breath with exertion for several years and worsen in past few months. He also had chest discomfort w/ exertion few weeks ago; outpatient nuclear stress test wa s normal. However, he still experienced w/ PETERSEN, therefore, he scheduled C. Per patient he had PCI w/ stenting [...] Flako Sainz MD on at 2059 RPT #:[id number] END OF REPORT 2022-07-28 11:54:00-00:00 [facility] REPORT#:[id number] REPORT STATUS: Signed DATE:07/28/22 TIME: 1154 PATIENT: MARY DALY UNIT #: [id number] ROOM/BED: [place] [address] : 53 AGE: 66 SEX: M ATTEND: Marcella Loaiza od, MD ADM AUTHOR: Rosalind Mendez Physic * ALL edits or amendments must be made on the Sembraire/computer document * Rosalind Mendez 07/28/22 1154: History [...] arteritis (2017) Additional Surgical History: Colon resection 2009 secondary to diverticulitis C3 surgery Family History [...] findings and plan as documented by LINH Hgih. Briefly, 66-year-old male with severe coronary a [...] Thank you for the kind consult. at 1215 at 1053 RPT #:[id number] END OF REPORT 2022-07-28 09:29:00-00:00 [facility] ([facility]) Hospitalist History Physical REPORT#:[id number] REPORT STATUS: Signed DATE:07/28/22 TIME: 928 PATIENT: MARY DALY UNIT #: [id number] ROOM/BED: [place] [address] : 53 AGE: 66 SEX: M ATTEND: Marcella Loaiza od, MD ADM AUTHOR: Luther Martin MAMMALOGIST * ALL edits or amendments must be made on the Sembraire/computer document * Luther Martin 07/28/22 0929: History [...] 1633 1406 SODIUM FLUORIDE 1 APPLIC TOPICAL 07/23/2208/13 (PREVIDENT 5000 1.1% DAILY 1633 1406 DENTAL) Strength: 1.1 % GEL ASPIRIN 81 MG PO DAILY 07/23/22 07/27/22 Strength: 81 MG TAB.CHEW 1633 1406 POTASSIUM GLUCONATE 1 TAB PO DAILY 07/23/22 Strength: 550 MG (90 MG) 1634 1406 TAB CALCIUM CARBONATE 600 MG PO DAILY 07/23/2208/13 (CALTRATE 600 MG) 1634 1406 Strength: 600 MG CALCIUM (1,500 MG) TAB CHOLECALCIFEROL 1,000 UNITS PO DAILY 07/23/22 07/27/22 (VITAMIN D3) 1634 1406 (VITAMIN D3) [...] Clopidogrel Bisulfate 75 MG DAILY 07/28 0900 DC (Plavix) PO 08/27 0859 Heparin Sodium 0 [...] BEDTIME 07/27 2315 DC (NORVASC) PO 08/26 2303 Atorvastatin Calcium 10 MG BEDTIME 07/27 2315 A C 07/27 (LIPITOR) PO 08/26 2303 2315 Nebivolol 20 MG BEDTIME 07/27 2315 AC 07/27 (BYSTOLIC) PO 08/27 205 2315 Nebivolol 20 MG BID 07/27 2100 CAN (BYSTOLIC) PO 08/26 2058 Lidocaine HCl 0 .STK-MED ONE 07/27 165 DC (LIDOCAINE HCL/PF) .ROUTE 1728 Nitroglycerin/ 250 ML .STK-MED ONE 07/27 165 D C 07/27 Dextrose IV 1728 (NITROGLYCERIN 50,000MCG/D5W 250ML) Verapamil HCl 0 .STK-MED ONE 07/27 165 DC 6 (ISOPTIN) IV 1728 Central Nervous System Agents Sig/Cory Start time Last Medication Dose Route Stop Time Status Admin Aspirin 81 MG DAILY 07/28 0900 AC 07/28 (ASPIRIN) PO 08/27 0859 0931 Midazolam HCl 0 .STK-MED ONE 07/27 171 DC (VERSED) .ROUTE Fentanyl Citrate 0 .STK-MED ONE 07/27 171 DC (SUBLIMAZE) .ROUTE Acetaminophen 500 MG Q4H PRN PRN 07/27 1600 AC 07/28 (TYLENOL EXTRA PO 08/26 1559 0930 STRENGTH) Electrolytic, Caloric, And Pearl Sig/Cory Start time Last Medication Dose Route Stop Time Status Admin Sodium Chloride 1,000 ML .[id number] ONE 07/27 160 0 DC (SODIUM CHLORIDE IV 07/28 0519 0.9%) Sodium Chloride 500 ML ASDIR PRN 07/27 1600 AC (SODIUM CHLORIDE IV 08/26 1559 0.9%) Gastrointestinal Drugs Sig/Cory Start time Last Medication Dose Route Stop Time Status Admin Famotidine 20 MG DAILY 07/28 09 AC 07/28 (PEPCID) PO 08/27 0859 0932 Bismuth Subsalicylate 30 ML ONCE ONE 07/27 1945 DC 07/27 (PEPTO-BISMOL 262MG/ PO 07/27 194 1953 15ML) Pantoprazole 40 MG ONCE ONE 07/27 1930 DC (PROTONIX) PO 07/27 193 Famotidine 0 .STK-MED ONE 07/27 1321 DC [...] 2058 Methylprednisolone 0 .STK-MED ONE 07/27 1716 D C 07/27 Sodium Succinate .ROUTE 1728 (Solu-Medrol 125 [...] 67 20 159/89 0.0 94 Room air / 0600 68 16 93 / 0500 74 29 94 06/ 0400 78 27 93 / 0348 36.7 71 20 145/74 97.4 96 Room air 06/ 0300 70 13 94 /07 0200 69 19 96 06/07 0100 72 14 93 06/07 0000 72 16 125/58 83 93 06/06 2300 72 26 96 06/06 2237 36.4 64 18 155/79 0.0 98 Room air / 1357 36.7 50 16 164/77 97 Room air 07/27 1353 36.7 50 16 164/77 97 24 [...] Sodium Chloride (SODIUM CHLORIDE 0.9%) 1,000 ML .[id number] ONE IV (DC) Sodium Chloride (SODIUM CHLORIDE [...] no CVA tenderness, no muscle sp asm 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, oriented X 3, CNII-XII intact Skin: [...] and repalce as needed. Monitor. Anthony Loaiza 07/29/223: History Medication/Allergy-Vaccine Hx Allergies: Coded Allergies: hydromorphone [...] Signed by Luther Martin NP on at 1233 Electronically Signed by Anthony Loaiza MD on 0 07/29/22 at 2141 RPT #:[id number] END OF REPORT 2022-07-28 07:34:00-00:00 [id number] [place] [address] PATIENT NAME: MARY DALY ADMIT DATE: 07/27/22 ACCOUNT NO: [id number] ROOM NO: [facility] AGE: 66 REPORT TYPE: eELECTROCARDIOGRAM REPORT SEX: M ADMITTING PHYSICIAN: ATTENDING PHYSICIAN:Anthony Loaiza MD Order: [id number] Test Reason : POST PCI Test Date/Time [...] POST OP Confirmed by ALBINO HANCOCK MD ([id number]) on 3 8:42:30 AM Referred By: Sam Price Confirmed by:ALBINO TAN MD at 0842 PATIENT NAME: MARY DALY 2 2022-07-27 23:29:00-00:[address] [facility] ([facility]) Clinical Note REPORT#:[id number] REPORT STATUS: Signed DATE:07/27/22 TIME: 2328 PATIENT: MARY DALY UNIT #: [id number] ROOM/BED: [place] [address] : 53 AGE: 66 SEX: M ATTEND: Stephanie Price MD ADM AUTHOR: Tenisha Zacarias MD * ALL edits or amendments must be made on the Sembra[employer]/computer document * Clinical Note Note: Patient's insurance is [employer]. Notified Dr. Golden pleitez about the admission. Also informed RN that patient is assigned to Dr. Adorno ks group. Electronically Signed by Tenisha Zacarias MD on 3 at 2330 RPT #:[id number] END OF REPORT 2022-07-23 16:03:00-00:00 [id number] [place] [address] PATIENT NAME: MARY DALY ADMIT DATE: ACCOUNT NO: [id number] ROOM NO: AGE: 66 REPORT TYPE: eELECTROCARDIOGRAM REPORT SEX: M ADMITTING PHYSICIAN: ATTENDING PHYSICIAN:Sam Price MD Order: [id number] Test Reason : PREOP Test Date/Time Stamp: [...]
[2022-10-06 12:16] LABS: Absolute Lymphocytes (CBC) 2.6 K/uL (0.7-4.9); Hematocrit 33.1 % (39.6-49.0); Lymphocytes % 32.3 % (15.3-44.8); MCV 83.8 fL (80-100); MPV 8.8 fL (7.6-11.3); Platelets 266 thou/uL (152-406); RBC Red Blood Cell Count 3.94 M/uL (4.33-5.43)
[2022-10-06 12:19] LABS: Protime INR 1.04
--- NOTE | 2022-10-06 12:25 | RAD REPORT ---
EXAM DESCRIPTION: RADChest Single View10/06/2022 12:18 pm CLINICAL HISTORY: CHEST PAIN COMPARISON: Chest Single View dated 09/26/2022; Chest Pa And Lat (2 Views) dated 07/02/2022; Chest Pa A nd Lat (2 Views) dated 10/21/2021; Chest Single View dated 01/14/2021 TECHNIQUE: Portable AP view of the chest. FINDINGS: The lungs are clear apart from stable minimal patchy left basilar airspace opacities, coul d reflect atelectasis. No pneumothorax or effusion. The cardiomediastinal contours are unchanged, wit h sequelae of prior CABG. Right arm PICC has been removed. IMPRESSION: No acute cardiopulmonary process.
[2022-10-06 12:44] LABS: ALT/SGPT 13 U/L (16-61); AST/SGOT 14 U/L (15-37); Albumin 3.4 g/dL (3.4-5.0); Alkaline Phosphatase 86 U/L (45-117); BUN Blood Urea Nitrogen 8 mg/dL (7-18); Bicarbonate 26 mEq/L (21-32); Bilirubin Total 0.3 mg/dL (0.2-1.0); Glomerular Filtration Rate 97 ml/min (=/>90); Glucose Level 93 mg/dL (74-106); Magnesium 2.2 mg/dL (1.6-2.4); NT PRO-BNP 421 pg/mL (<125); Potassium 3.7 mEq/L (3.5-5.1); Protein, Total 7.3 g/dL (6.4-8.2); Sodium Level 137 mEq/L (136-145); Troponin High Sensitivity 9.4 pg/mL (<58.9)
[2022-10-06 12:45] LABS: Bilirubin Direct < 0.1 mg/dL (0-0.2); Bilirubin Indirect, Calculated ND mg/dL (0.2-0.8)
[2022-10-06 12:54] LABS: C-Reactive Protein 4.61 mg/L (<3.00)
[2022-10-06] MEDS ORDERED: CEFAZOLIN SODIUM 1 GM/VIAL ONE (14:00)
[2022-10-06] MEDS ORDERED: NA CHLORIDE 0.9% 100 ML ONE (14:01)
--- NOTE | 2022-10-06 14:35 | ER ---
Nurse's Notes [facility] Name: Sam Perdomo Jr Age: 67 yrs Sex: Male : 1955 Arrival Date: 10/06/2022 Time: 11:41 Bed 8 Private MD: Diagnosis: Chest pain, unspecified Presentation: 10/06 11:58 Chief complaint: Patient states: chest pain that is on the right side and left side of cm10 chest onset Tuesday. Pt states that the pain is intermittent and describes it as a pressure. Pt is also complaining of a dull headache. Coronavirus screen: Vaccine status: Patient reports receiving the 2nd dose of the covid vaccine. Client denies travel out of the [place] in the last 14 days. Ebola Screen: Patient denies travel to an Ebola-affected area in the 21 days before illness onset. No symptoms or risks identified at this time. Initial Sepsis Screen: Does the patient meet any 2 criteria? No. Patient's initial sepsis screen is negative. Does the patient have a suspected source of infection? No. Patient's initial sepsis screen is negative. Risk Assessment: Do you want to hurt yourself or someone else? Patient reports no desire to harm self or others. Onset of symptoms was October 06, 2022. 11:58 Method Of Arrival: Ambulatory cm10 11:58 Acuity: MELODY 2 cm10 Historical: - Allergies: 11:59 Demerol; cm10 11:59 deoxepin; cm10 11:59 diclofenac sodium; cm10 11:59 Dilaudid; cm10 11:59 Doxycycline; cm10 11:59 Iodine; cm10 11:59 kapidex; cm10 11:59 Levofloxacin; cm10 11:59 Lunesta; cm10 11:59 meperidine; cm10 11:59 SHELLFISH; cm10 11:59 tamsulosin; cm10 - PMHx: 11:59 Myocardial infarction; cm10 - PSHx: 11:59 CABG; urobladder lift; cm10 - Immunization history:: Adult Immunizations unknown. - Social history:: Smoking status: unknown. Screenin:07 [facility] ED Fall Risk Assessment (Adult) History of falling in the last 3 months, mb9 including since admission No falls in past 3 months (0 pts) Confusion or Disorientation No (0 pts) Intoxicated or Sedated No (0 pts) Impaired Gait No (0 pts) Mobility Assist Device Used No (0 pt) Altered Elimination No (0 pt) Score/Fall Risk Level 0 - 2 = Low Risk Oriented to surroundings, Maintained a safe environment, Educated pt \T\ family on fall prevention, incl call for assistance when getting out of bed. Abuse screen: Denies threats or abuse. Nutritional screening: No deficits noted. Tuberculosis screening: No symptoms or risk factors identified. Assessment: 12:05 General: Appears in no apparent distress. Behavior is calm, cooperative. Pain: mb9 Complains of pain in chest and head Pain does not radiate. Pain currently is 5 out of 10 on a pain scale. Quality of pain is described as aching, dull, Pain began suddenly, Is continuous. Neuro: [place] Agitation-Sedation Scale (RASS): 0 - Alert and Calm Level of Consciousness is awake, alert, obeys commands, Oriented to person, place, time, situation, Appropriate for age Reports headache. Cardiovascular: Reports chest pain, shortness of breath, Heart tones S1 S2 present Patient's skin is warm and dry. Respiratory: Airway is patent Respiratory effort is even, unlabored, Respiratory pattern is regular, symmetrical, Breath sounds are clear bilaterally. GI: Abdomen is round non-distended, Bowel sounds present X 4 quads. Patient currently denies nausea, vomiting. : No signs and/or symptoms were reported regarding the genitourinary system. EENT: No signs and/or symptoms were reported regarding the EENT system. Derm: Skin is pink, warm \T\ dry. Derm: scar noted to chest. Musculoskeletal: Range of motion: intact in all extremities. 13:23 Reassessment: No changes from previously documented assessment. Patient and/or family mb9 updated on plan of care and expected duration. Pain level reassessed. Patient is alert, oriented x 3, equal unlabored respirations, skin warm/dry/pink. Vital Signs: 11:58 BP 161 / 101; Pulse 54; Resp 16; Temp 97.9(O); Pulse Ox 98% ; Weight 81.65 kg; Height 5 cm10 ft. 10 in. ; Pain 4/10; 12:08 BP 169 / 86; Pulse 56; Resp 18; Pulse Ox 100% on R/A; mb9 13:23 BP 157 / 82; Pulse 50; Resp 16; Pulse Ox 97% on R/A; mb9 11:58 Body Mass Index 25.83 (81.65 kg, 177.8 cm) cm10 11:58 Pain Scale: Adult cm10 ED Course: 11:42 Patient arrived in ED. rg4 11:43 Milvia Moreno PA-C is PHCP. sb4 11:43 Archie Mathew MD is Attending Physician. sb4 11:59 Triage completed. cm10 12:00 Arm band placed on Patient placed in an exam room, on a stretcher, on laboratory monitor, cm10 on pulse oximetry. EKG completed in triage. Results shown to MD. 12:05 Luh Ely RN is Primary Nurse. mb9 12:07 Placed in gown. Bed in low position. Call light in reach. Side rails up X 1. Client mb9 placed on continuous cardiac and pulse oximetry monitoring. NIBP monitoring applied. pvc monitor on. 12:07 EKG done, by ED staff, reviewed by Archie Mathew MD. Inserted saline lock: 22 gauge mb9 in right forearm, using aseptic technique. ,using aseptic technique. done by MARCELINO Singleton Blood collected. 12:07 No provider procedures requiring assistance completed. Patient maintains SpO2 mb9 saturation greater than 95% on room air. 12:08 Basic Metabolic Panel Sent. mb9 12:08 CBC with Diff Sent. mb9 12:08 CRP Sent. mb9 12:08 LFT's Sent. mb9 12:08 Magnesium Sent. mb9 12:08 NT PRO-BNP Sent. mb9 12:08 PT-INR Sent. mb9 12:08 Troponin HS Sent. mb9 12:20 XRAY Chest (1 view) In Process Unspecified. EDMS 14:35 Farzad Torre MD is Referral Physician. sb4 15:15 IV discontinued, intact, bleeding controlled, No redness/swelling at site. Pressure mb9 dressing applied. Administered Medications: 13:55 Drug: ceFAZolin IVPB 2 grams Route: IVPB; Infused Over: 30 mins; Site: right forearm; mb9 Medication: 12:06 VIS not applicable for this client. mb9 Outcome: 14:35 Discharge ordered by . sb4 15:14 Discharged to home ambulatory. mb9 15:14 Condition: stable 15:14 Discharge instructions given to patient, Instructed on discharge instructions, follow up and referral plans. Demonstrated understanding of instructions, follow-up care, medications, Prescriptions given X 1. 15:15 Patient left the ED. mb9 Signatures: Dispatcher [employer] Ignacia Ngo4 Milvia Moreno PA-C PALito [email or web address] Luh Ely RN RN mb9 Marily Ortez RN RN cm10
--- NOTE | 2022-10-06 14:36 | EDPHYS ---
Physician Documentation [facility] Name: Sam Perdomo Jr Age: 67 yrs Sex: Male : 1955 Arrival Date: 10/06/2022 Time: 11:41 Bed 8 Private MD: ED Physician Archie Mathew HPI: 10/06 12:32 This 67 yrs old Male presents to ER via Ambulatory with complaints of Chest Pain, sb4 Headache. 12:32 Onset: The symptoms/episode began/occurred this morning. The patient has experienced sb4 similar episodes in the past, several times. The patient has been recently seen by a physician: the patient's primary care provider. 18:50 patient with extensive recent history- had a CABG 2 months ago and ended up with an sb4 infection requiring readmission, picc line with IV antibiotics. his blood pressure has been elevated recently, requiring clonidine frequently. he had his picc line removed a few days ago but states that today he is having a dull left sided chest pain associated with a headache. he states that today was the first day that he has doubled his losartan. he called his pcp with his symptoms who sent him in to be evaluated. Historical: - Allergies: 11:59 Demerol; cm10 11:59 deoxepin; cm10 11:59 diclofenac sodium; cm10 11:59 Dilaudid; cm10 11:59 Doxycycline; cm10 11:59 Iodine; cm10 11:59 kapidex; cm10 11:59 Levofloxacin; cm10 11:59 Lunesta; cm10 11:59 meperidine; cm10 11:59 SHELLFISH; cm10 11:59 tamsulosin; cm10 - PMHx: 11:59 Myocardial infarction; cm10 - PSHx: 11:59 CABG; urobladder lift; cm10 - Immunization history:: Adult Immunizations unknown. - Social history:: Smoking status: unknown. ROS: 18:50 Constitutional: Negative for fever, chills, and weight loss. sb4 18:50 Cardiovascular: Positive for chest pain. 18:50 Neuro: Positive for headache. 18:50 All other systems are negative. Exam: 18:50 Constitutional: This is a well developed, well nourished patient who is awake, alert, sb4 and in no acute distress. Head/Face: Normocephalic, atraumatic. Eyes: Extra-ocular motions intact. Periorbital areas with no swelling, redness, or edema. ENT: Mucous membranes moist. Cardiovascular: Regular rate and rhythm with a normal S1 and S2. Respiratory: Lungs have equal breath sounds bilaterally, clear to auscultation and percussion. No rales, rhonchi or wheezes noted. No increased work of breathing, no retractions or nasal flaring. Abdomen/GI: Soft, non-tender, no distension. Skin: Warm, dry with normal turgor. Normal color with no rashes, no lesions, and no evidence of cellulitis. MS/ Extremity: Pulses equal, no cyanosis. Neurovascular intact. Full, normal range of motion. Neuro: Awake and alert, GCS 15, oriented to person, place, time, and situation. Cranial nerves II-XII grossly intact. Motor strength 5/5 in all extremities. Sensory grossly intact. Cerebellar exam normal. Normal gait. 18:50 Chest/axilla: Palpation: tenderness, that is moderate, of the anterior aspect of right upper chest and anterior aspect of left upper chest. Vital Signs: 11:58 BP 161 / 101; Pulse 54; Resp 16; Temp 97.9(O); Pulse Ox 98% ; Weight 81.65 kg; Height 5 cm10 ft. 10 in. ; Pain 4/10; 12:08 BP 169 / 86; Pulse 56; Resp 18; Pulse Ox 100% on R/A; mb9 13:23 BP 157 / 82; Pulse 50; Resp 16; Pulse Ox 97% on R/A; mb9 11:58 Body Mass Index 25.83 (81.65 kg, 177.8 cm) cm10 11:58 Pain Scale: Adult cm10 MDM: 11:43 Patient medically screened. sb4 18:50 Differential diagnosis: WI, angina, hypertensive emergency, nonspecific chest pain, sb4 cellulitus, migraine. Data reviewed: vital signs, nurses notes, lab test result(s), EKG, radiologic studies, and as a result, I will discharge patient. Consideration of Admission/Observation Escalation of care including admission/observation considered. Management of patient was discussed with the following: Primary Care Provider: Dr Earline Moran updated him on patient's results. He wishes for me to restart his antibiotics and has scheduled him a follow up appointment in his office tomorrow morning at 9:30. I discussed this with patient and understands. I administered 1 dose IV antibiotics, wrote prescribed for PO antibiotics, and repeated the troponin to ensure his pain was noncardiac. 10/06 11:51 Order name: Basic Metabolic Panel; Complete Time: 12:55 sb4 10/06 11:51 Order name: CBC with Diff; Complete Time: 12:22 sb4 10/06 11:51 Order name: LFT's; Complete Time: 12:55 sb4 10/06 11:51 Order name: Magnesium; Complete Time: 12:55 sb4 10/06 11:51 Order name: NT PRO-BNP; Complete Time: 12:55 sb4 10/06 11:51 Order name: PT-INR; Complete Time: 12:22 sb4 10/06 11:51 Order name: Troponin HS; Complete Time: 12:55 sb4 10/06 11:51 Order name: CRP; Complete Time: 12:55 sb4 10/06 13:57 Order name: Troponin High Sensitivity; Complete Time: 15:02 sb4 10/06 11:51 Order name: XRAY Chest (1 view); Complete Time: 12:28 sb4 10/06 11:51 Order name: EKG; Complete Time: 11:52 sb4 10/06 11:51 Order name: Cardiac monitoring; Complete Time: 12:08 sb4 10/06 11:51 Order name: EKG - Nurse/Tech; Complete Time: 12:08 sb4 10/06 11:51 Order name: IV Saline Lock; Complete Time: 12:08 sb4 10/06 11:51 Order name: Labs collected and sent; Complete Time: 12:08 sb4 10/06 11:51 Order name: O2 Per Protocol; Complete Time: 11:53 sb4 10/06 11:51 Order name: O2 Sat Monitoring; Complete Time: 11:53 sb4 EC:02 Rate is 54 beats/min. Rhythm is regular, Sinus bradycardia. MT interval is prolonged at sb4 130 msec. QRS interval is normal at 86 msec. QT interval is normal at [address] changes noted. Clinical impression: Abnormal EKG without significant change. Interpreted by me. Reviewed by me. Administered Medications: 13:55 Drug: ceFAZolin IVPB 2 grams Route: IVPB; Infused Over: 30 mins; Site: right forearm; mb9 Disposition: 15:19 Co-signature as Attending Physician, Archie Mathew MD I reviewed the patient's care rt provided by the Advanced Practice Provider and agree with the diagnosis and treatment plan. Disposition Summary: 10/06/22 14:35 Discharge Ordered Location: Home sb4 Problem: new sb4 Symptoms: have improved sb4 Condition: Stable sb4 Diagnosis - Chest pain, unspecified sb4 Followup: sb4 - With: Farzad Torre MD - When: Tomorrow - Reason: Recheck today's complaints, Re-evaluation by your physician Discharge Instructions: - Discharge Summary Sheet sb4 - Nonspecific Chest Pain, Adult sb4 Forms: - Medication Reconciliation Form sb4 - Thank You Letter sb4 - Antibiotic Education sb4 - Prescription Opioid Use sb4 - Patient Portal Instructions sb4 - Leadership Thank You Letter sb4 Prescriptions: - Cephalexin 500 mg Oral Capsule - take 1 capsule by ORAL route every 8 hours for 10 days; 30 capsule; Refills: 0, sb4 Product Selection Permitted Signatures: Dispatcher [employer] EDMilvia Rodriguez PA-C PA-C sb4 Luh Ely RN RN mb9 Archie Mathew MD MD rt Marily Ortez RN RN cm10
[2022-10-06 15:38] VITALS: TEMP 97.9
[2022-10-06 15:40] VITALS: BP 157/82; O2SAT 97
--- NOTE | 2022-10-07 17:30 | EKG ---
Test Date: 2022-10-06 Test Time: 11:53:24 Conservation Officer: ALAINA MEASUREMENT RESULTS: Intervals: Rate: 54 [place]: 130 QRSD: 86 QT: 480 QTc: 455 [place]: P: 20 [place]: 130 QRS: 29 T: 76 INTERPRETIVE STATEMENTS: Sinus bradycardia Low voltage QRS Borderline ECG Compared to ECG 09/26/2022 21:14:02 Low QRS voltage now present Sinus rhythm no longer present ST (T wave) deviation no longer present Prolonged QT interval no longer present Electronically Signed On 10-07-22 17:27:57 CDT by Sam Price
== END 2022-10-06 15:15 | disposition home or self-care (01) ==
LOC: ER 11:41
DX: R07.9 Chest pain, unspecified (principal); R51.9 Headache, unspecified; I25.2 Old myocardial infarction; Z95.1 Presence of aortocoronary bypass graft; Z88.1 Allergy status to other antibiotic agents; Z88.3 Allergy status to other anti-infective agents; Z88.5 Allergy status to narcotic agent; Z88.8 Allergy status to other drugs, medicaments and biological substances; Z91.013 Allergy to seafood
CPT/HCPCS: 85025; 80048; 36415; 83735; 85610; 80076; 84484 ×2; 83880; 86140; 71045; J0690; 93005

== ENCOUNTER 2023-06-15 13:43 | Observation (INO) | payer OTHER ==
[2023-06-15] MEDS ORDERED: NITROGLYCERIN 1 GM PKT TD ONE (14:12)
[2023-06-15 14:15] LABS: Absolute Basophils 0.1 K/uL (0-0.5); Absolute Eosinophils 0.1 K/uL (0-0.5); Absolute Lymphocytes (CBC) 2.1 K/uL (0.7-4.9); Absolute Monocytes 0.7 K/uL (0.1-1.3); Absolute Neutrophil 5.5 K/uL (1.8-8.0); Basophils % 1.1 % (0-1.3); Eosinophils % 1.3 % (0-4.4); Hematocrit 43.1 % (39.6-49.0); Hemoglobin 14.3 g/dL (13.6-17.9); Lymphocytes % 24.7 % (15.3-44.8); MCH 29.4 pg (27.0-35.0); MCHC 33.2 g/dL (32.0-36.0); MCV 88.4 fL (80-100); MPV 8.9 fL (7.6-11.3); Neutrophils % 64.9 % (41.7-73.7); Platelets 207 thou/uL (152-406); RBC Red Blood Cell Count 4.87 M/uL (4.33-5.43); Red Cell Distribution Width 20.3 % (12.1-15.2)
[2023-06-15 14:19] LABS: PT Prothrombin Time 11.2 SECONDS (9.5-12.5); Protime INR 1.02
[2023-06-15 14:37] LABS: Albumin 3.3 g/dL (3.4-5.0); Albumin/Globulin Ratio 0.8 (1.1-1.8); Anion Gap 11.3 mEq/L (5.0-15.0); Bilirubin Direct 0.1 mg/dL (0-0.2); Bilirubin Indirect, Calculated 0.5 mg/dL (0.2-0.8); Bilirubin Total 0.6 mg/dL (0.2-1.0); Globulin 3.9 g/dL (2.3-3.5); Magnesium 2.1 mg/dL (1.6-2.4); Potassium 4.3 mEq/L (3.5-5.1); Protein, Total 7.2 g/dL (6.4-8.2); Troponin High Sensitivity 6.1 pg/mL (<58.9)
--- NOTE | 2023-06-15 15:05 | EDPHYS ---
Physician Documentation [facility] Name: Sam Perdomo Jr Age: 67 yrs Sex: Male : 1955 Arrival Date: 06/15/2023 Time: 13:43 Bed 8 Private MD: Farzad Torre ED Physician Mini Tadeo HPI: 06/14 14:10 This 67 yrs old Male presents to ER via Ambulatory with complaints of Chest Pain. sp3 14:10 67-year-old male with history of MD status post CABG in September 2022 who is a patient of sp3 Dr. Price and now presents to the ED with off-and-on chest pain over the last 3 to 4 days worsening in nature. Patient describes this pain as "tightness". He denies any secondary symptoms including headache, URI symptoms, shortness of breath, back pain, nausea, epigastric pain, abdominal pain, left arm pain, or any other anginal equivalents at this time. Patient states he has been compliant with all of his medications. ROS otherwise negative.. Historical: - Allergies: 13:46 Demerol; rs5 13:46 deoxepin; rs5 13:46 diclofenac sodium; rs5 13:46 Dilaudid; rs5 13:46 Doxycycline; rs5 13:46 Iodine; rs5 13:46 kapidex; rs5 13:46 Levofloxacin; rs5 13:46 Lunesta; rs5 13:46 meperidine; rs5 13:46 SHELLFISH; rs5 13:46 tamsulosin; rs5 - PMHx: 13:46 Myocardial infarction; rs5 - PSHx: 13:46 CABG; urobladder lift; rs5 - Immunization history:: Adult Immunizations. - Infectious Disease History:: Denies. - Social history:: Smoking status: Patient denies any tobacco usage or history of. ROS: 14:11 Constitutional: Negative for fever, chills, and weight loss, Eyes: Negative for injury, sp3 pain, redness, and discharge, ENT: Negative for injury, pain, and discharge, Neck: Negative for injury, pain, and swelling, Respiratory: Negative for shortness of breath, cough, wheezing, and pleuritic chest pain, Abdomen/GI: Negative for abdominal pain, nausea, vomiting, diarrhea, and constipation, Back: Negative for injury and pain, MS/Extremity: Negative for injury and deformity, Skin: Negative for injury, rash, and discoloration, Neuro: Negative for headache, weakness, numbness, tingling, and seizure, Psych: Negative for depression, anxiety, suicide ideation, homicidal ideation, and hallucinations, Allergy/Immunology: Negative for hives, rash, and allergies, Endocrine: Negative for neck swelling, polydipsia, polyuria, polyphagia, and marked weight changes, 14:11 All other systems are negative, Exam: 14:11 Constitutional: This is a well developed, well nourished patient who is awake, alert, sp3 and in no acute distress. Head/Face: Normocephalic, atraumatic. Eyes: Pupils equal round and reactive to light, extra-ocular motions intact. Lids and lashes normal. Conjunctiva and sclera are non-icteric and not injected. Cornea within normal limits. Periorbital areas with no swelling, redness, or edema. ENT: Nares patent. No nasal discharge, no septal abnormalities noted. External auditory canals are clear. Oropharynx with no redness, swelling, or masses, exudates, or evidence of obstruction, uvula midline. Mucous membranes moist. Neck: Trachea midline, no thyromegaly or masses palpated, and no cervical lymphadenopathy. Supple, full range of motion without nuchal rigidity, or vertebral point tenderness. No Meningismus. Chest/axilla: Normal chest wall appearance and motion. Nontender with no deformity. No lesions are appreciated. Cardiovascular: Regular rate and rhythm with a normal S1 and S2. No gallops, murmurs, or rubs. Normal PMI, no JVD. No pulse deficits. Respiratory: Lungs have equal breath sounds bilaterally, clear to auscultation and percussion. No rales, rhonchi or wheezes noted. No increased work of breathing, no retractions or nasal flaring. Abdomen/GI: Soft, non-tender, with normal bowel sounds. No distension or tympany. No guarding or rebound. No evidence of tenderness throughout. Back: No spinal tenderness. No costovertebral tenderness. Full range of motion. Skin: Warm, dry with normal turgor. Normal color with no rashes, no lesions, and no evidence of cellulitis. MS/ Extremity: Pulses equal, no cyanosis. Neurovascular intact. Full, normal range of motion. Neuro: Awake and alert, GCS 15, oriented to person, place, time, and situation. Cranial nerves II-XII grossly intact. Motor strength 5/5 in all extremities. Sensory grossly intact. Cerebellar exam normal. Normal gait. Psych: Awake, alert, with orientation to person, place and time. Behavior, mood, and affect are within normal limits. 14:11 ECG was reviewed by the Attending Physician. EKG demonstrates normal sinus rhythm at 60 bpm with normal intervals, normal QRS, normal axis and nonspecific diffuse ST/T changes without evidence of acute ischemia. Vital Signs: 13:52 BP 141 / 77; Pulse 63; Resp 17; Temp 98(O); Pulse Ox 95% on R/A; Weight 87.09 kg; iw Height 5 ft. 10 in. ; Pain 3/10; 14:31 BP 139 / 83; Pulse 60; Resp 20 S; Pulse Ox 94% on R/A; as6 15:58 BP 135 / 85; Pulse 66; Resp 18; Pulse Ox 99% on R/A; rs5 13:52 Body Mass Index 27.55 (87.09 kg, 177.8 cm) iw 13:52 Pain Scale: Adult iw MDM: 13:51 Patient medically screened. sp3 14:12 Data reviewed: vital signs, nurses notes, old medical records, lab test result(s), EKG, sp3 radiologic studies. ED course: 67-year-old male with extensive cardiac history now with chest pain and tightness. Differential diagnosis includes recurrent ACS spectrum, angina, pulmonary pathology, vascular pathology, among others. Workup will include EKG which demonstrates no significant findings, chest x-ray and laboratory values including troponin. Disposition pending workup and patient course with probable hobs admission given his complex history and probable high heart score.. 15:02 ED course: Will place patient in 23-hour Thomas.. sp3 06/14 13:51 Order name: Basic Metabolic Panel; Complete Time: 14:39 sp3 06/14 13:51 Order name: CBC with Diff; Complete Time: 16:19 sp3 06/14 13:51 Order name: LFT's; Complete Time: 14:39 sp3 06/14 13:51 Order name: Magnesium; Complete Time: 14:39 sp3 06/14 13:51 Order name: NT PRO-BNP; Complete Time: 14:39 sp3 06/14 13:51 Order name: PT-INR; Complete Time: 14:39 sp3 06/14 13:51 Order name: Troponin HS; Complete Time: 14:39 sp3 06/14 15:54 Order name: CBC Smear Scan; Complete Time: 16:19 EDUT 06/14 13:51 Order name: XRAY Chest (1 view); Complete Time: 16:19 sp3 06/14 13:51 Order name: EKG; Complete Time: 13:51 sp3 06/14 13:51 Order name: Cardiac monitoring; Complete Time: 14:06 sp3 06/14 13:51 Order name: EKG - Nurse/Tech; Complete Time: 14:06 sp3 06/14 13:51 Order name: IV Saline Lock; Complete Time: 14:22 sp3 06/14 13:51 Order name: Labs collected and sent; Complete Time: 14:23 sp3 06/14 13:51 Order name: O2 Per Protocol; Complete Time: 14:06 sp3 06/14 13:51 Order name: O2 Sat Monitoring; Complete Time: 14:06 sp3 Administered Medications: 14:15 Drug: Nitroglycerin Transdermal Ointment 2 % 0.5 inches Transdermal once Route: as6 Transdermal; Site: anterior chest wall; 14:25 Follow up: Response: No adverse reaction; Pain is decreased rs5 Disposition Summary: 06/15/23 15:04 Hospitalization Ordered Notes: Hospitalization Status: Observation sp3 Provider: Jay Cobos sp3 Location: Telemetry/MedSurg (observation) sp3 Condition: Stable sp3 Problem: an acute exacerbation sp3 Symptoms: have worsened sp3 Bed/Room Type: Standard 3 Room Assignment: 211(06/15/23 15:59) bd Diagnosis - Chest pain, unspecified sp3 Forms: - Medication Reconciliation Form sp3 - SBAR form sp3 - Leadership Thank You Letter sp3 Signatures: Dispatcher [employer] Cheryl Tay Setul, MD MD sp3 Jairo Talavera RN RN as6 Stephen Barnes RN RN rs5 Corrections: (The following items were deleted from the chart) 15:59 15:04 sp3 bd
--- NOTE | 2023-06-15 15:05 | ER ---
Nurse's Notes [facility] Name: Sam Perdomo Jr Age: 67 yrs Sex: Male : 1955 Arrival Date: 06/15/2023 Time: 13:43 Bed 8 Private MD: Farzad Torre Diagnosis: Chest pain, unspecified Presentation: 06/14 13:47 Ebola Screen: Patient denies travel to an Ebola-affected area in the 21 days before rs5 illness onset. Initial Sepsis Screen: Does the patient meet any 2 criteria? No. Patient's initial sepsis screen is negative. Does the patient have a suspected source of infection? No. Patient's initial sepsis screen is negative. Risk Assessment: Do you want to hurt yourself or someone else? Patient reports no desire to harm self or others. 13:47 Method Of Arrival: Ambulatory rs5 13:52 Chief complaint: Patient states: CP off/on with SOB for 3 days, more constant today. iw Coronavirus screen: Client denies travel out of the [place] in the last 14 days. At this time, the client does not indicate any symptoms associated with coronavirus-19. Onset of symptoms was June 13, 2023. 13:52 Acuity: MELODY 3 iw Triage Assessment: 13:53 General: Appears in no apparent distress. Behavior is calm, cooperative, appropriate iw for age. Pain: Complains of pain in chest Pain currently is 3 out of 10 on a pain scale. Quality of pain is described as pressure, Pain began 2-3 days ago. Cardiovascular: Reports chest pain. Historical: - Allergies: 13:46 Demerol; rs5 13:46 deoxepin; rs5 13:46 diclofenac sodium; rs5 13:46 Dilaudid; rs5 13:46 Doxycycline; rs5 13:46 Iodine; rs5 13:46 kapidex; rs5 13:46 Levofloxacin; rs5 13:46 Lunesta; rs5 13:46 meperidine; rs5 13:46 SHELLFISH; rs5 13:46 tamsulosin; rs5 - PMHx: 13:46 Myocardial infarction; rs5 - PSHx: 13:46 CABG; urobladder lift; rs5 - Immunization history:: Adult Immunizations. - Infectious Disease History:: Denies. - Social history:: Smoking status: Patient denies any tobacco usage or history of. Screenin:46 [facility] ED Fall Risk Assessment (Adult) History of falling in the last 3 months, rs5 including since admission No falls in past 3 months (0 pts) Confusion or Disorientation No (0 pts) Intoxicated or Sedated No (0 pts) Impaired Gait No (0 pts) Mobility Assist Device Used No (0 pt) Altered Elimination No (0 pt) Score/Fall Risk Level 0 - 2 = Low Risk Oriented to surroundings, Maintained a safe environment. Abuse screen: Denies threats or abuse. Nutritional screening: No deficits noted. Tuberculosis screening: No symptoms or risk factors identified. Assessment: 13:46 Reassessment: Patient and/or family updated on plan of care and expected duration. Pain rs5 level reassessed. Patient is alert, oriented x 3, equal unlabored respirations, skin warm/dry/pink. 14:30 General: Appears in no apparent distress. comfortable, Behavior is calm, cooperative. as6 Pain: Complains of pain in chest Quality of pain is described as pressure. Neuro: Level of Consciousness is awake, alert, obeys commands, Oriented to person, place, time, situation. Cardiovascular: Reports chest pain, shortness of breath, Heart tones S1 S2 present. Respiratory: Respiratory effort is even, unlabored, Respiratory pattern is regular, symmetrical, Breath sounds are clear bilaterally. GI: No deficits noted. No signs and/or symptoms were reported involving the gastrointestinal system. : No deficits noted. No signs and/or symptoms were reported regarding the genitourinary system. EENT: No deficits noted. No signs and/or symptoms were reported regarding the EENT system. Derm: Skin is intact, is healthy with good turgor. Musculoskeletal: Circulation, motion, and sensation intact. 15:56 Pain: Denies pain. Cardiovascular: Patient's skin is warm and dry. Rhythm is regular. rs5 Respiratory: Respiratory effort is even, unlabored, Respiratory pattern is regular, symmetrical. Vital Signs: 13:52 BP 141 / 77; Pulse 63; Resp 17; Temp 98(O); Pulse Ox 95% on R/A; Weight 87.09 kg; iw Height 5 ft. 10 in. ; Pain 3/10; 14:31 BP 139 / 83; Pulse 60; Resp 20 S; Pulse Ox 94% on R/A; as6 15:58 BP 135 / 85; Pulse 66; Resp 18; Pulse Ox 99% on R/A; rs5 13:52 Body Mass Index 27.55 (87.09 kg, 177.8 cm) iw 13:52 Pain Scale: Adult iw ED Course: 13:44 Patient arrived in ED. mr 13:44 Farzad Torre MD is Private Physician. mr 13:44 Mini Tadeo MD is Attending Physician. sp3 13:46 Arm band placed on Patient placed in an exam room, on a stretcher. rs5 13:46 Patient has correct armband on for positive identification. Placed in gown. Bed in low rs5 position. Call light in reach. Side rails up X2. Client placed on continuous cardiac and pulse oximetry monitoring. NIBP monitoring applied. cafeteria monitor on. Pulse ox on. 13:46 No provider procedures requiring assistance completed. rs5 13:53 Triage completed. iw 13:55 Stephen Barnes, MARCELINO is Primary Nurse. rs5 14:22 Inserted saline lock: 20 gauge in left antecubital area, using aseptic technique. Blood as6 collected. 14:24 Basic Metabolic Panel Sent. as6 14:24 LFT's Sent. as6 14:24 Magnesium Sent. as6 14:24 NT PRO-BNP Sent. as6 14:24 Troponin HS Sent. as6 14:45 XRAY Chest (1 view) In Process Unspecified. EDMS 15:03 Jay Cobos MD is Hospitalizing Provider. sp3 16:35 Provided Education on: need for admit. as6 16:35 Patient admitted, IV remains in place. as6 Administered Medications: 14:15 Drug: Nitroglycerin Transdermal Ointment 2 % 0.5 inches Transdermal once Route: as6 Transdermal; Site: anterior chest wall; 14:25 Follow up: Response: No adverse reaction; Pain is decreased rs5 Medication: 13:46 VIS not applicable for this client. rs5 Outcome: 15:04 Decision to Hospitalize by Provider. sp3 16:35 Admitted to Med/surg accompanied by nurse, via wheelchair, room 211, with chart, as6 16:35 Condition: stable 16:35 Instructed on the need for admit, 16:38 Patient left the ED. as6 Signatures: Dispatcher [employer] EDWA Luh Morales, Reg Reg mr Xochilt Wilson, RN RN iw Mini Tadeo MD MD sp3 Jairo Talavera RN RN as6 Stephen Barnes RN RN rs5 Corrections: (The following items were deleted from the chart) 15:58 15:31 Response: No adverse reaction; Pain is decreased rs5 rs5
--- NOTE | 2023-06-15 15:34 | RAD REPORT ---
EXAM DESCRIPTION: RADChest Single View06/15/2023 2:43 pm CLINICAL HISTORY: CHEST PAIN COMPARISON: Chest Single View dated 10/06/2022; Chest Single View dated 09/26/2022; Chest Pa And Lat (2 Views) dated 07/02/2022; Chest Pa And Lat (2 Views) dated 10/21/2021 TECHNIQUE: Portable AP view of the chest. FINDINGS: The lungs are clear, with stable streaky left basilar atelectasis. No pneumothorax or eff usion. The cardiomediastinal contours are unchanged, with sequelae of CABG. IMPRESSION: No acute cardiopulmonary process.
[2023-06-15 15:53] LABS: Anisocytosis 1+; Blood Morphology Comment NOTED (NOT SEEN); Platelet Estimate ADEQ; White Blood Cell Scan OK (OK)
--- NOTE | 2023-06-15 16:20 | P.HP ---
Certification for Inpatient Patient admitted to: Observation With expected LOS: <2 Midnights Patient will require the following post-hospital care: None Practitioner: I am a practitioner with admitting privileges, knowledge of patient current condition, hospital course, and medical plan of care. Services: Services provided to patient in accordance with Admission requirements found in Title 42 Section 412.3 of the Code of Federal Regulations Patient History Date of Service: 06/15/23 Reason for admission: Chest pain History of Present Illness: 67-year-old male with history of CAD with previous CABG in 2022, hypertension, hyperlipidemia, BPH presents to the emergency department chief complaint of chest tightness. He recently completed cardiac rehab after his CABG and has been doing well but the last 2 days he had been noting some chest tightness similar to what he experienced prior to needing his CABG with some associated shortness of breath as well. The symptoms were intermittent in nature lasting 10 to 15 minutes at a time with multiple episodes per day not necessarily associated with exertion, no correlation to food that he noticed. He was evaluated in the emergency department EKG without STEMI criteria initial high- sensitivity troponin negative. ED provider wishes to admit under observation for ACS rule out. Allergies iodine Allergy (Unknown, Verified 07/02/22 13:34) Redness/Flushing levofloxacin [From Levaquin] Allergy (Unknown, Verified 07/02/22 13:34) UNKNOWN meperidine HCl [From Demerol] Allergy (Unknown, Verified 07/02/22 13:34) Affects Memory/Insomnia dexlansoprazole [From Dexilant] Allergy (Verified 07/02/22 13:34) Diarrhea, Reflux eszopiclone [From Lunesta] Allergy (Verified 07/02/22 13:34) Unknown hydromorphone [From Dilaudid] Allergy (Verified 07/02/22 13:34) Throat Swelling meperidine Allergy (Verified 07/02/22 13:34) Unknown oyster extract Allergy (Verified 07/02/22 13:34) Throat swelling/Itching shellfish derived Allergy (Verified 07/02/22 13:34) Itching tamsulosin Adverse Reaction (Verified 07/02/22 13:34) flu like symptoms deoxepin Allergy (Uncoded 02/17/22 12:51) Unknown diclofenac sodium Allergy (Uncoded 02/17/22 12:51) Diarrhea Doxycycline Allergy (Uncoded 02/17/22 12:51) Cramps levofloxacin Allergy (Uncoded 02/17/22 12:51) Unknown Home Medications: Aspirin 81 mg PO DAILY 02/19/12 Clopidogrel Bisulfate [Plavix] 75 mg PO DAILY 02/19/12 Nebivolol HCl [Bystolic] 40 mg PO BEDTIME 02/19/12 Azilsartan Medoxomil [Edarbi] 40 mg PO [id number] 05/29/18 Cholecalciferol (Vitamin D3) [Vitamin D3] 3 cap PO DAILY 05/29/18 Omeprazole [Prilosec] 40 mg PO BIDP PRN 05/29/18 predniSONE [Prednisone*] 2 mg PO BID 12/02/19 Acetaminophen [Tylenol Extra Strength] 500 mg PO BIDP PRN 02/17/22 Alfuzosin HCl 10 mg PO DAILY 02/17/22 Amoxicillin 4 tab PO PRN PRN 02/17/22 Atorvastatin Calcium [Lipitor*] 10 mg PO DAILY 02/17/22 Calcium Carbonate [Calcium] 600 mg PO DAILY 02/17/22 Ciprofloxacin HCl 2 tab PO DAILYPRN PRN 02/17/22 Metronidazole 3 tab PO DAILYPRN PRN 02/17/22 Potassium Gluconate [Potassium] 99 mg PO DAILY 02/17/22 Sildenafil Citrate 100 mg PO DAILYPRN PRN 02/17/22 Sodium Fluoride [Prevident] 100 ml DT BID 02/17/22 Cephalexin [Keflex*] 500 mg PO Q8H #9 cap 03/02/22 traMADol HCL [Ultram*] 50 mg PO TID PRN #12 tab 03/02/22 - Past Medical/Surgical History Diabetic: No -: NE -: Arteritis -: GERD -: Cardiac cath with 1 stent -: Four-vessel CABG 2022 -: hypertension -: BPH -: Hyperlipidemia -: Bowel Ressection -: C5-C6 operation -: Four-vessel CABG 2022 Psychosocial/ Personal History: Lives at home with his - Family History Brother -: Heart disease - Social History Alcohol use: Yes CD- Drugs: No Caffeine use: Yes Place of Residence: Home Review of Systems 10-point ROS is otherwise unremarkable Respiratory: Shortness of Breath Cardiovascular: Chest Pain, As per HPI Physical Examination - Physical Exam General: Alert, In no apparent distress, Oriented x3 HEENT: Atraumatic, PERRLA, EOMI Neck: Supple, 2+ carotid pulse no bruit Respiratory: Clear to auscultation bilaterally, Normal air movement Cardiovascular: Regular rate/rhythm, Normal S1 S2 Gastrointestinal: Normal bowel sounds, No tenderness Musculoskeletal: No tenderness Integumentary: No rashes Neurological: Normal gait, Normal speech, Normal strength at 5/5 x4 extr, Normal tone - Studies Laboratory Data (last 24 hrs) 06/15/23 06/15/23 06/15/23 14:05 14:05 14:05 WBC 8.50 Hgb 14.3 Hct 43.1 Plt Count 207 PT 11.2 INR 1.02 Sodium 136 Potassium 4.3 BUN 15 Creatinine 0.89 Glucose 109 H Magnesium 2.1 Total Bilirubin 0.6 AST 27 ALT 41 Alkaline Phosphatase 82 Assessment and Plan - Plan Assessment: Chest pain rule out ACShistory of CAD with CABGx4 2022 Hypertension Hyperlipidemia BPH Plan: Chest pain rule out ACShistory of CAD with CABGx4 2022 Trend troponin, monitor on telemetry, cardiology consult Continue aspirin, statin, metoprolol Had four-vessel CABG 2022 [facility] Appreciate further input from cardiology Hypertension Hyperlipidemia BPH Home medications have been continued DVT PPX: Lovenox Code status: Full Discharge Plan: Home Plan to discharge in: 24 Hours - Advance Directives Does patient have a Living Will: No Does patient have a Durable POA for Healthcare: No - Code Status/Comfort Care Code Status Assessed: Yes (Full code) Critical Care: No Time Spent Managing Pts Care (In Minutes): 55
[2023-06-15 17:49] VITALS: BMI 27.5
[2023-06-15] MEDS ORDERED: MORPHINE 2 MG/ML SYR IV PRN (17:57)
[2023-06-15] MEDS: METOPROLOL TAR 25 MG TAB PO SCH (18:00)
[2023-06-15] MEDS: cloNIDine HCL 0.1 MG TAB PO SCH (21:26)
[2023-06-15] MEDS: ATORVASTATIN 40 MG TAB PO SCH (21:26)
[2023-06-15] MEDS: ENOXAPARIN 40 MG/0.4 ML SQ SCH (21:26)
[2023-06-15] MEDS: predniSONE 1 MG TAB PO SCH (21:27)
[2023-06-15] MEDS: TRAMADOL HCL 50 MG TAB PO PRN (22:42)
[2023-06-15 23:01] LABS: Specific Gravity 1.021 (1.005-1.030); Urine Bilirubin NEGATIVE (Negative); Urine Blood Negative (Negative); Urine Clarity Clear (Clear); Urine Color Light-Yellow (Yellow); Urine Glucose NEGATIVE (Negative); Urine Ketones NEGATIVE (Negative); Urine Microscopic Reflex YN NO UMIC; Urine Nitrite NEGATIVE (Negative); Urine Protein NEGATIVE (Negative); Urine Urobilinogen Normal (Normal); Urine pH 5.5 (5.0-7.0)
[2023-06-16 04:00] LABS: Absolute Basophils 0.1 K/uL (0-0.5); Absolute Eosinophils 0.2 K/uL (0-0.5); Absolute Lymphocytes (CBC) 2.1 K/uL (0.7-4.9); Absolute Neutrophil 5.1 K/uL (1.8-8.0); Basophils % 0.7 % (0-1.3); Eosinophils % 2.1 % (0-4.4); Hematocrit 40.6 % (39.6-49.0); Hemoglobin 13.6 g/dL (13.6-17.9); Lymphocytes % 25.6 % (15.3-44.8); MCH 29.5 pg (27.0-35.0); MCHC 33.4 g/dL (32.0-36.0); MCV 88.4 fL (80-100); MPV 9.4 fL (7.6-11.3); Monocytes % 11.4 % (3.3-12.3); Neutrophils % 60.2 % (41.7-73.7); Nucleated Red Blood Cells % 0.1 % (0-0); Platelets 201 thou/uL (152-406); RBC Red Blood Cell Count 4.59 M/uL (4.33-5.43)
[2023-06-16 04:15] LABS: Red Cell Distribution Width 20.5 % (12.1-15.2)
[2023-06-16 04:22] LABS: Anion Gap 7.2 mEq/L (5.0-15.0); Potassium 4.2 mEq/L (3.5-5.1)
[2023-06-16] MEDS: ALFUZOSIN HCL 10 MG PO SCH ×2 (09:00→21:00)
[2023-06-16] MEDS: AMLODIPINE 5 MG TAB PO SCH (10:38)
[2023-06-16] MEDS: ASPIRIN 81 MG CHEWABLE TABLET PO SCH (10:39)
[2023-06-16] MEDS: CLOPIDOGREL 75 MG TABLET PO SCH (10:39)
--- NOTE | 2023-06-16 14:02 | P.PN ---
Date of Service: 06/16/23 Subjective: No further chest pain overnight No acute events overnight ROS: 10 point ROS as noted above, otherwise negative Physical exam GEN: Alert, oriented, NAD HEENT: Normal conjunctiva, sclera anicteric CV: Regular rate and rhythm, no edema Pulm: Nonlabored respirations on room air ABD: Soft, nontender, nondistended MSK: No joint tenderness Integumentary: No rashes Neuro: Normal speech, normal affect Vitals reviewed Assessment: Chest pain rule out ACShistory of CAD with CABGx4 2022 Hypertension Hyperlipidemia BPH Plan: Chest pain rule out ACShistory of CAD with CABGx4 2022 Troponin negative x 3 Patient reports similar to symptoms he had prior to previous need for CABG/stent Continue aspirin, statin, metoprolol Had four-vessel CABG 2022 [facility] Appreciate further input from cardiology seen by cardiology who recommends coronary angiogram planned for 06/16, n.p.o. at midnight Hypertension Hyperlipidemia BPH Home medications have been continued DVT PPX: Lovenox Code status: Full Discharge Plan: Home Plan to discharge in: 24 Hours Time Spent Managing Pts Care (In Minutes): 35 <Dallas Horton - Last Filed: 06/16/23 14:02> Patient seen and examined on rounds this morning with TRAY CASTING MACHINE OPERATOR Sol. I performed a substantial part of the MDM during this patient's care today as noted above in the plan of care. I agree with plan of care as noted above with the following additions / corrections: chest tightness resolved yesterday in ER after nitro patch placed trop negative x3, stable CABG 1 year ago cardio consulted - recommend cardiac cath in AM <Jay Cobos - Last Filed: 06/16/23 20:35>
--- NOTE | 2023-06-16 14:38 | P.CNS ---
Date of Consult: 06/16/23 Chief Complaint: Chest pain History of Present Illness: Patient with PMH of CAD s/p CABGx4 that was done in [facility] in 2022, HTN, HLD presented with chest pain that has been going on since yesterday, he report angina on exertion that has been getting worse associated with PETERSEN, no palpitations, no syncope. Allergies iodine Allergy (Unknown, Verified 07/02/22 13:34) Redness/Flushing levofloxacin [From Levaquin] Allergy (Unknown, Verified 07/02/22 13:34) UNKNOWN meperidine HCl [From Demerol] Allergy (Unknown, Verified 07/02/22 13:34) Affects Memory/Insomnia dexlansoprazole [From Dexilant] Allergy (Verified 07/02/22 13:34) Diarrhea, Reflux eszopiclone [From Lunesta] Allergy (Verified 07/02/22 13:34) Unknown hydromorphone [From Dilaudid] Allergy (Verified 07/02/22 13:34) Throat Swelling meperidine Allergy (Verified 07/02/22 13:34) Unknown oyster extract Allergy (Verified 07/02/22 13:34) Throat swelling/Itching shellfish derived Allergy (Verified 07/02/22 13:34) Itching tamsulosin Adverse Reaction (Verified 07/02/22 13:34) flu like symptoms deoxepin Allergy (Uncoded 02/17/22 12:51) Unknown diclofenac sodium Allergy (Uncoded 02/17/22 12:51) Diarrhea Doxycycline Allergy (Uncoded 02/17/22 12:51) Cramps levofloxacin Allergy (Uncoded 02/17/22 12:51) Unknown Home Medications: Aspirin 81 mg PO DAILY 02/19/12 Clopidogrel Bisulfate [Plavix] 75 mg PO DAILY 02/19/12 Nebivolol HCl [Bystolic] 40 mg PO BEDTIME 02/19/12 Azilsartan Medoxomil [Edarbi] 40 mg PO [id number] 05/29/18 Cholecalciferol (Vitamin D3) [Vitamin D3] 3 cap PO DAILY 05/29/18 Omeprazole [Prilosec] 40 mg PO BIDP PRN 05/29/18 predniSONE [Prednisone*] 2 mg PO BID 12/02/19 Acetaminophen [Tylenol Extra Strength] 500 mg PO BIDP PRN 02/17/22 Alfuzosin HCl 10 mg PO DAILY 02/17/22 Amoxicillin 4 tab PO PRN PRN 02/17/22 Atorvastatin Calcium [Lipitor*] 10 mg PO DAILY 02/17/22 Calcium Carbonate [Calcium] 600 mg PO DAILY 02/17/22 Ciprofloxacin HCl 2 tab PO DAILYPRN PRN 02/17/22 Metronidazole 3 tab PO DAILYPRN PRN 02/17/22 Potassium Gluconate [Potassium] 99 mg PO DAILY 02/17/22 Sildenafil Citrate 100 mg PO DAILYPRN PRN 02/17/22 Sodium Fluoride [Prevident] 100 ml DT BID 02/17/22 Cephalexin [Keflex*] 500 mg PO Q8H #9 cap 03/02/22 traMADol HCL [Ultram*] 50 mg PO TID PRN #12 tab 03/02/22 - Past Medical/Surgical History Diabetic: No -: IN -: Arteritis -: GERD -: Cardiac cath with 1 stent -: Four-vessel CABG 2022 -: hypertension -: BPH -: Hyperlipidemia -: Bowel Ressection -: C5-C6 operation -: Four-vessel CABG 2022 Psychosocial/ Personal History: Lives at home with his - Family History Brother Medical History: Heart disease - Social History Smoking Status: Unknown if ever smoked Alcohol use: Yes CD- Drugs: No Caffeine use: Yes Place of Residence: Home Review of Systems 10-point ROS is otherwise unremarkable Physical Examination Temp Pulse Resp BP Pulse Ox 97.2 F 52 16 129/71 95 06/16/23 12:00 06/16/23 12:00 06/16/23 12:00 06/16/23 12:00 06/16/23 12:00 General: Alert, Oriented x3 HEENT: Atraumatic Neck: Supple Respiratory: Clear to auscultation bilaterally Cardiovascular: No edema, Normal S1 S2 Gastrointestinal: Normal bowel sounds Laboratory Data (last 24 hrs) 06/15/23 06/15/23 14:05 14:05 WBC 8.50 Hgb 14.3 Hct 43.1 Plt Count 207 Sodium 136 Potassium 4.3 BUN 15 Creatinine 0.89 Glucose 109 H Magnesium 2.1 Total Bilirubin 0.6 AST 27 ALT 41 Alkaline Phosphatase 82 - Problems (1) Unstable angina Current Visit: Yes Status: Acute Plan: Patient with PMH of CAD s/p CABGx4. - continue ASA 81 mg daily - Continue Plavix 75 mg daily - will schedule patient for coronary angiogram in am. (2) HTN (hypertension) Current Visit: No Status: Acute Plan: Continue Lopressor 25 mg po BID Continue Norvasc. get Echo (3) Hyperlipidemia Current Visit: No Status: Acute Plan: Continue Lipitor 40 mg daily.
[2023-06-17 03:40] LABS: Absolute Eosinophils 0.2 K/uL (0-0.5); Absolute Lymphocytes (CBC) 1.7 K/uL (0.7-4.9); Absolute Monocytes 0.9 K/uL (0.1-1.3); Absolute Neutrophil 4.6 K/uL (1.8-8.0); Basophils % 0.6 % (0-1.3); Eosinophils % 2.5 % (0-4.4); Hematocrit 41.9 % (39.6-49.0); Hemoglobin 14.2 g/dL (13.6-17.9); Lymphocytes % 23.1 % (15.3-44.8); MCH 29.8 pg (27.0-35.0); MCHC 33.8 g/dL (32.0-36.0); MCV 88.3 fL (80-100); MPV 8.8 fL (7.6-11.3); Monocytes % 11.9 % (3.3-12.3); Neutrophils % 61.9 % (41.7-73.7); Nucleated Red Blood Cells % 0.1 % (0-0); Platelets 210 thou/uL (152-406); RBC Red Blood Cell Count 4.75 M/uL (4.33-5.43); Red Cell Distribution Width 20.1 % (12.1-15.2)
[2023-06-17] MEDS: CARBOXYMETHYLCELLULOSE SODIUM 0.5% 15 ML OPTH PRN (11:38)
[2023-06-17] MEDS: NA CHLORIDE 0.9% 500 ML ONE (15:03)
[2023-06-17] MEDS ORDERED: LIDOCAINE 1% 20 ML MDV ONE (16:03)
[2023-06-17] MEDS ORDERED: HEPA 1000U/500MLS 2,000 UNIT/1,000 ML BAG IV ONE (16:03)
[2023-06-17] MEDS ORDERED: FENTANYL CITR 100 MCG/2 ML ONE (16:04)
[2023-06-17] MEDS ORDERED: MIDAZOLAM HCL 2 MG/2 ML INJ ONE (16:04)
[2023-06-17] MEDS ORDERED: HEPARIN 10,000 UNIT/10 ML VIAL IV ONE (16:26)
[2023-06-17] MEDS ORDERED: CLOPIDOGREL 75 MG TABLET ONE (16:26)
[2023-06-17] MEDS ORDERED: ATROPINE SULF 1 MG/10 ML SYR IV ONE (16:26)
[2023-06-17] MEDS ORDERED: TICAGRELOR 90 MG TABLET PO ONE (16:26)
[2023-06-17] MEDS ORDERED: ASPIRIN 325 MG TAB ONE (16:27)
[2023-06-17] MEDS ORDERED: DIPHENHYDRAMINE 50 MG/ML VIAL ONE (17:14)
[2023-06-17] MEDS ORDERED: METHYLPREDNISOLONE 125 MG INJ ONE (17:14)
[2023-06-17] MEDS ORDERED: HYDRALAZINE HCL 20 MG/ML VIAL ONE (17:49)
--- NOTE | 2023-06-17 18:03 | P.PN ---
Subjective Date of Service: 06/17/23 Chief Complaint: Chest pain Subjective: No new changes Review of Systems 10-point ROS is otherwise unremarkable Physical Examination - Vital Signs Temperature: 97.5 F Blood Pressure: 147/79 Pulse: 59 Respirations: 18 Pulse Ox (%): 95 - Physical Exam General: Alert, Oriented x3 HEENT: Atraumatic Neck: Supple Respiratory: Clear to auscultation bilaterally Cardiovascular: No edema, Normal S1 S2 Gastrointestinal: Normal bowel sounds Assessment And Plan - Current Problems (Diagnosis) (1) Unstable angina Current Visit: Yes Status: Acute Plan: Patient with PMH of CAD s/p CABGx4. - continue ASA 81 mg daily - Continue Plavix 75 mg daily - patient had a coronary angiogram done that shows patent grafts. (2) HTN (hypertension) Current Visit: No Status: Acute Plan: Continue Lopressor 25 mg po BID Continue Norvasc. (3) Hyperlipidemia Current Visit: No Status: Acute Plan: Continue Lipitor 40 mg daily. Patient ok to discharge from cardiology.
[2023-06-17 18:37] VITALS: O2SAT 98
--- NOTE | 2023-06-17 20:00 | OP ---
Date of Procedure: 06/17/2023 Surgeon: Chu Dover Procedures Performed: 1.Left heart catheterization. 2.Selective coronary angiogram of [place] coronary artery and bypass grafts. Complications: None. Estimated Blood Loss: Less than 50 cc. Sedation Time: 30 minutes. Description Of Procedure: After risks, and benefits, and alternatives were explained to patient, pat ient agreed to proceed with the procedure and signed informed consent. The patient was brought back to the manager lab in a stable condition, prepped and draped in a sterile fashion. A time-out was perfo rmed. Sedation was administered. Right common femoral artery 6-[place] sheath access was obtained us ing an ultrasound-guided micropuncture technique. Next, we advanced the JL4 catheter over a J-wire t o do selective coronary angiogram that were exchanged later by JR4 catheter for the right coronary an giogram and for the SVG graft angiogram that was later exchanged by an OTTO catheter for the OTTO shot. At the end of the procedures, catheter was removed and manual compression was applied and hemostasi s was achieved. The patient was moved back to recovery in stable condition. Findings: 1.Left main is normal. 2.LAD; mid occluded. 3.Left circ; proximal 50% disease, then mild LI. 4.RCA; proximal occluded. Grafts: 1.MITCHELL to LAD patent. 2.SVG to OM1 patent. 3.SVG to OM2 patent. 4.SVG to RPDA patent. Assessment And Plan: 1.Significant [place] CAD with patent grafts. 2.Normal filling pressure. Plan will be to continue medical management. JESSICA/TUCKER Voice ID: [id number] Report ID: [id number]
--- NOTE | 2023-06-18 00:02 | P.PN ---
Date of Service: 06/17/23 Subjective: Denies any new or worsening complaints. No acute events overnight. + constipation Physical exam GEN: Alert, oriented, NAD HEENT: Normal conjunctiva, sclera anicteric. CV: Regular rate and rhythm, no edema Pulm: Nonlabored respirations on room air ABD: Soft, nontender, nondistended Integumentary: No rashes Neuro: Normal speech, normal affect Assessment: Chest pain rule out ACShistory of CAD with CABGx4 2022 Hypertension Hyperlipidemia BPH Plan: Chest pain rule out ACShistory of CAD with CABGx4 2022 Had four-vessel CABG 2022 [facility] Troponin negative x 3 Patient reports similar to symptoms he had prior to previous need for CABG/stent Continue aspirin, statin, metoprolol Cardiology consulted; recommendations appreciated NPO for scheduled for coronary angiogram today (06/16) Hypertension Hyperlipidemia BPH - continue home medications DVT PPX: Lovenox Code status: Full Discharge Plan: Home Plan to discharge in: 24 Hours
[2023-06-18 09:36] VITALS: BP 118/70; TEMP 97
--- NOTE | 2023-06-18 10:30 | P.DS ---
Admission Date: 06/15/23 Discharge Date: 06/19/23 Disposition: ROUTINE DISCHARGE Discharge Condition: GOOD Reason for Admission: Chest pain Consultations: Cardiology - Dr. Rm / Dr. Price Procedures: 1. Left heart catheterization. 2. Selective coronary angiogram of [place] coronary artery and bypass grafts. Brief History of Present Illness: 67-year-old male with history of CAD with previous CABG in 2022, hypertension, hyperlipidemia, BPH presented to the emergency department chief complaint of chest tightness. He recently completed cardiac rehab after his CABG and had been doing well, but the last 2 days he had been noting some chest tightness similar to what he experienced prior to needing his CABG with some associated shortness of breath as well. The symptoms were intermittent in nature lasting 10 to 15 minutes at a time with multiple episodes per day not necessarily associated with exertion, no correlation to food that he noticed. He was evaluated in the emergency department EKG without STEMI criteria, initial high- sensitivity troponin negative. He was admitted for ACS rule out. Hospital Course: Problem List Chest pain rule out ACShistory of CAD with CABGx4 2022 Hypertension Hyperlipidemia BPH Presented with chest tightness. EKG without any changes. Troponins were trended, remained flat. Cardiology recommended cardiac cath, performed on 06/17/[address] Dover with findings of patent grafts and did not require any intervention. Chest pressure resolved shortly after admission. Deemed stable for discharged home. Medication reconciliation was not confirmed. Continue home medications as previously prescribed. No new prescriptions during this visit. Follow up: -Cardiology within 1 month. -PCP within 1 week. Please call to confirm scheduling. Physical exam GEN: Alert, oriented, NAD HEENT: Normal conjunctiva, sclera anicteric. CV: Regular rate and rhythm, no edema Pulm: Nonlabored respirations on room air ABD: Soft, nontender, nondistended Integumentary: No rashes Neuro: Normal speech, normal affect Vital Signs/Physical Exam: Temp Pulse Resp BP Pulse Ox 97.0 F 68 16 118/70 97 06/18/23 08:00 06/18/23 08:00 06/18/23 08:00 06/18/23 08:00 06/18/23 08:00 Laboratory Data at Discharge: WBC 7.50 thou/uL (4.3-10.9) 04/26/24 02:24 Hgb 14.2 g/dL (13.6-17.9) 06/17/23 02:24 Hct 41.9 % (39.6-49.0) 06/17/23 02:24 Plt Count 210 thou/uL (152-406) 06/17/23 02:24 PT 11.2 SECONDS (9.5-12.5) 06/15/23 14:05 INR 1.02 06/15/23 14:05 Sodium 135 mEq/L (136-145) L 06/17/23 02:24 Potassium 4.0 mEq/L (3.5-5.1) 06/17/23 02:24 BUN 14 mg/dL (7-18) 06/17/23 02:24 Creatinine 0.82 mg/dL (0.70-1.30) 06/17/23 02:24 Glucose 107 mg/dL (74-106) H 06/17/23 02:24 Magnesium 2.1 mg/dL (1.6-2.4) 06/15/23 14:05 Total Bilirubin 0.6 mg/dL (0.2-1.0) 06/15/23 14:05 AST 27 U/L (15-37) 06/15/23 14:05 ALT 41 U/L (16-61) 06/15/23 14:05 Alkaline Phosphatase 82 U/L (45-117) 06/15/23 14:05 Home Medications: Aspirin 81 mg PO DAILY 02/19/12 Clopidogrel Bisulfate [Plavix] 75 mg PO DAILY 02/19/12 Nebivolol HCl [Bystolic] 40 mg PO BEDTIME 02/19/12 Azilsartan Medoxomil [Edarbi] 40 mg PO [id number] 05/29/18 Cholecalciferol (Vitamin D3) [Vitamin D3] 3 cap PO DAILY 05/29/18 Omeprazole [Prilosec] 40 mg PO BIDP PRN 05/29/18 predniSONE [Prednisone*] 2 mg PO BID 12/02/19 Acetaminophen [Tylenol Extra Strength] 500 mg PO BIDP PRN 02/17/22 Alfuzosin HCl 10 mg PO DAILY 02/17/22 Amoxicillin 4 tab PO PRN PRN 02/17/22 Atorvastatin Calcium [Lipitor*] 10 mg PO DAILY 02/17/22 Calcium Carbonate [Calcium] 600 mg PO DAILY 02/17/22 Ciprofloxacin HCl 2 tab PO DAILYPRN PRN 02/17/22 Metronidazole 3 tab PO DAILYPRN PRN 02/17/22 Potassium Gluconate [Potassium] 99 mg PO DAILY 02/17/22 Sildenafil Citrate 100 mg PO DAILYPRN PRN 02/17/22 Sodium Fluoride [Prevident] 100 ml DT BID 02/17/22 Cephalexin [Keflex*] 500 mg PO Q8H #9 cap 03/02/22 traMADol HCL [Ultram*] 50 mg PO TID PRN #12 tab 03/02/22 Physician Discharge Instructions: Presented with chest tightness. EKG without any changes. Troponins were trended, remained flat. cardiology recommended cardiac cath. He underwent coronary angiogram on 06/[address] Dover, showing patent grafts, did not require any intervention. Chest pressure resolved shortly after admission. Deemed stable for discharged home. Medication reconciliation was not confirmed. Continue home medications as previously prescribed. No new prescriptions during this visit. Follow up: -Cardiology within 1 month. -PCP within 1 week. Please call to confirm scheduling. Diet: AHA Activity: Ad karen Followup: Chu Dover MD [ACTIVE - CAN ADMIT] - Farzad Torre MD [Primary Care Provider] -
--- NOTE | 2023-06-20 13:14 | EKG ---
Test Date: 2023-06-15 Test Time: 14:02:50 Validation Analyst: MEASUREMENT RESULTS: Intervals: Rate: 59 NV: 134 QRSD: 84 QT: 448 QTc: 443 [place]: P: 31 NV: 134 QRS: 22 T: 81 INTERPRETIVE STATEMENTS: Sinus bradycardia Otherwise normal ECG Compared to ECG 10/06/2022 11:53:24 No significant changes Electronically Signed On 06-20-23 13:00:44 CDT by Sam Price
== END 2023-06-18 11:15 | disposition home or self-care (01) ==
LOC: ER 13:43 → ERHOLD 15:49 → 2ND 16:04
PROVIDERS: ADMIT Hospitalist; ATTEND Hospitalist
DX: I25.110 Atherosclerotic heart disease of native coronary artery with unstable angina pectoris (principal); Z95.1 Presence of aortocoronary bypass graft; I10 Essential (primary) hypertension; E78.5 Hyperlipidemia, unspecified; I25.2 Old myocardial infarction; N40.0 Benign prostatic hyperplasia without lower urinary tract symptoms; K21.9 Gastro-esophageal reflux disease without esophagitis; Z79.82 Long term (current) use of aspirin; Z79.899 Other long term (current) drug therapy; Z88.8 Allergy status to other drugs, medicaments and biological substances; Z91.041 Radiographic dye allergy status; Z90.49 Acquired absence of other specified parts of digestive tract; Z82.49 Family history of ischemic heart disease and other diseases of the circulatory system
CPT/HCPCS: 93005; 85025 ×3; 80048 ×3; 36415 ×2; 83735; 85610; 80076; 81003; 84484 ×3; 83880; 71045; 93459; 76937; 99285; C1893; Q9967; J7512 ×4; J0360; J2001; J1200; J1650 ×3; J2250; J3010; J2919; G0378 ×6; J7040; 93461; 99152; 99153; J0461

== ENCOUNTER 2024-02-12 18:49 | Emergency (ER) | payer OTHER, SELFPAY ==
[2024-02-12 19:26] LABS: Absolute Basophils 0.1 K/uL (0-0.5); Absolute Eosinophils 0.2 K/uL (0-0.5); Absolute Lymphocytes (CBC) 2.9 K/uL (0.7-4.9); Absolute Monocytes 1.1 K/uL (0.1-1.3); Absolute Neutrophil 5.8 K/uL (1.8-8.0); Basophils % 0.8 % (0-1.3); Eosinophils % 2.3 % (0-4.4); Hematocrit 43.6 % (39.6-49.0); Hemoglobin 14.4 g/dL (13.6-17.9); Lymphocytes % 28.9 % (15.3-44.8); MCH 32.4 pg (27.0-35.0); MCHC 33.1 g/dL (32.0-36.0); MCV 98.1 fL (80-100); MPV 9.7 fL (7.6-11.3); Monocytes % 10.9 % (3.3-12.3); Neutrophils % 57.1 % (41.7-73.7); Platelets 191 thou/uL (152-406); RBC Red Blood Cell Count 4.44 M/uL (4.33-5.43); Red Cell Distribution Width 14.4 % (12.1-15.2)
[2024-02-12 19:36] LABS: PT Prothrombin Time 11.8 SECONDS (9.4-12.5); Protime INR 1.06
--- NOTE | 2024-02-12 19:42 | RAD REPORT ---
EXAMINATION: XR LEFT SHOULDER CLINICAL INDICATION: Male, 68 years old. PAIN TECHNIQUE: Multiple views of the left shoulder were obtained. COMPARISON: 07/17/2021 FINDINGS: No acute fracture or dislocation is seen. Mild degenerative change AC joint.
[2024-02-12 19:45] LABS: ALT/SGPT 40 U/L (16-61); Albumin 3.3 g/dL (3.4-5.0); Alkaline Phosphatase 67 U/L (45-117); Anion Gap 12.1 mEq/L (5.0-15.0); BUN Blood Urea Nitrogen 18 mg/dL (7-18); Bicarbonate 23 mEq/L (21-32); Bilirubin Total 0.3 mg/dL (0.2-1.0); Globulin 3.2 g/dL (2.3-3.5); Glomerular Filtration Rate 68 ml/min (=/>90); Glucose Level 82 mg/dL (74-106); Protein, Total 6.5 g/dL (6.4-8.2); Sodium Level 140 mEq/L (136-145)
[2024-02-12 19:47] LABS: AST/SGOT 27 U/L (15-37); Bilirubin Direct < 0.2 mg/dL (0-0.2); Bilirubin Indirect, Calculated 0.1 mg/dL (0.2-0.8); Potassium 4.1 mEq/L (3.5-5.1)
--- NOTE | 2024-02-12 20:05 | RAD REPORT ---
EXAM: CT brain without contrast HISTORY: fall, head/neck/back/chest pain COMPARISON: None TECHNIQUE: Multiple contiguous axial images were obtained and a CT of the brain without contrast. Sag ittal and coronal reformats were performed. One or more of the following dose reduction techniques were used: Automated exposure control, adjust ment of the mA and/or kV according to patient size, and/or iterative reconstruction. FINDINGS: No evidence of hydrocephalus, intracranial hemorrhage, or extra-axial fluid collection. The brain is normal in morphology. No evidence of midline shift or areas of brain edema. The calvarium is intact. The visualized paranasal sinuses and mastoid air cells are essentially clear . IMPRESSION: No evidence of acute intracranial abnormality. EXAM: CT of the cervical spine without contrast HISTORY: Neck pain, injury fall, head/neck/back/chest pain TECHNIQUE: Multiple contiguous axial images were obtained in a CT of the cervical spine without contr ast. Sagittal and coronal reformats were performed. FINDINGS: The vertebral bodies demonstrate normal height and alignment. No evidence of acute fracture or subluxation.. ACDF spanning C5-6. No prevertebral soft tissue swelling is seen. The posterior facets are well aligned. Normal alignment of the skull base with the cervical spine is seen. The lung apices are unremarkable. IMPRESSION: No evidence of acute osseous abnormality of the cervical spine. Bilateral carotid atherosclerosis. EXAM: CT CHEST, ABDOMEN AND PELVIS WITH CONTRAST CLINICAL INDICATION: fall, head/neck/back/chest pain TECHNIQUE: CT chest, abdomen and pelvis was performed, following the administration of contrast, as p er department protocol. Axial, sagittal and coronal reconstructions were obtained. One or more of the following dose reduction techniques were used: Automated exposure control, adjustment of the mA a nd/or kV according to patient size, and/or iterative reconstruction. Unless otherwise specified, incidental findings do not require dedicated imaging follow-up. COMPARISON: No prior exam. FINDINGS: LUNGS: No evidence of airspace or interstitial process. No nodules. PLEURA: No pleural effusion. No pneumothorax. MEDIASTINUM AND LYMPH NODES: No mediastinal mass or fluid collection. Normal size mediastinal, hilar, and axillary lymph nodes. OSSEOUS STRUCTURES AND CHEST WALL: Intact. LIVER: Normal in size and contour. No focal lesion or biliary dilatation. Grossly unremarkable gallbl adder. PANCREAS: No mass, ductal dilation, or pj-pancreatic fluid. SPLEEN: Normal size. No focal lesion. ADRENALS: Normal; no mass. KIDNEYS: Small stone in the left kidney without hydronephrosis. Bilateral renal cysts, largest on the left measures 4 cm. URINARY BLADDER: Normal contour. GASTROINTESTINAL TRACT: No bowel obstruction, free air, significant free fluid or abscess. Postsurg ical changes involving the sigmoid colon. APPENDIX: Normal appendix. LYMPH NODES: No lymphadenopathy. MUSCULOSKELETAL: No acute or suspicious osseous abnormality. OTHER: Aortoiliac atherosclerosis. IMPRESSION: No acute or significant abnormalities seen in the chest, abdomen or pelvis.
--- NOTE | 2024-02-12 20:10 | EDPHYS ---
Physician Documentation [facility] Name: Sam Perdomo Jr Age: 68 yrs Sex: Male : 1955 Arrival Date: 02/12/2024 Time: 18:49 Bed 4 Private MD: ED Physician Pablo Cobos HPI: 02/11 19:20 This 68 yrs old Male presents to ER via Ambulatory with complaints of Fall Injury, rn Chest Pain From Injury. 19:20 Details of fall: The patient fell from a height, Golf cart. Onset: The symptoms/episode rn began/occurred today, 4 hour(s) ago. Associated injuries: The patient sustained injury to the head, neck injury, upper back injury, injury to the chest. Severity of symptoms: At their worst the symptoms were mild, in the emergency department the symptoms are unchanged. The patient has not experienced similar symptoms in the past. Patient reports fall from back of golf cart as he was washing it. Fell onto his left shoulder blade. Reports pain to neck, mid back, left scapula, left shoulder. No LOC. Takes aspirin. Reports feeling a bit foggy but otherwise at baseline. No lower extremity injury or hip injury.. Historical: - Allergies: 19:05 Demerol; tm6 19:05 deoxepin; tm6 19:05 diclofenac sodium; tm6 19:05 Dilaudid; tm6 19:05 Doxycycline; tm6 19:05 Iodine; tm6 19:05 kapidex; tm6 19:05 Levofloxacin; tm6 19:05 Lunesta; tm6 19:05 meperidine; tm6 19:05 SHELLFISH; tm6 19:05 tamsulosin; tm6 - PMHx: 19:05 Myocardial infarction; Hypertensive disorder; tm6 - PSHx: 19:05 CABG; urobladder lift; tm6 - Immunization history:: Flu vaccine is up to date. - Infectious Disease History:: Denies. - Immunization history: Last tetanus immunization: - up to date. - Social history:: Smoking status: Patient denies any tobacco usage or history of. ROS: 19:21 Constitutional: Negative for fever, chills, and weight loss, Eyes: Negative for injury, rn pain, redness, and discharge, Neck: Positive for neck pain Cardiovascular: Positive for left lateral chest pain Respiratory: Negative for shortness of breath, cough, wheezing, and pleuritic chest pain, Abdomen/GI: Negative for abdominal pain, nausea, vomiting, diarrhea, and constipation, Back: Positive for mid back pain MS/Extremity: Positive for left shoulder and scapular pain Skin: Negative for injury, rash, and discoloration, Neuro: Negative for headache, weakness, numbness, tingling, and seizure, Exam: 19:10 ECG was reviewed by the Attending Physician. rn 19:21 Constitutional: This is a well developed, well nourished patient who is awake, alert, rn and in no acute distress. Head/Face: Normocephalic, atraumatic. Neck: No midline cervical tenderness Chest/axilla: No focal rib tenderness or crepitus Cardiovascular: Regular rate and rhythm. No pulse deficits. Respiratory: Speaking full sentences, unlabored Abdomen/GI: Soft, nontender, nondistended Back: No spinal tenderness MS/ Extremity: Pulses equal, no cyanosis. Neurovascular intact. Mild painful range of motion left shoulder Neuro: Awake and alert, GCS 15 Vital Signs: 19:02 BP 172 / 79; Pulse 64; Resp 19; Pulse Ox 99% on R/A; MAP 108 mmHg; Weight 90.72 kg; tm6 Height 5 ft. 9 in. ; Pain 3/10; 20:15 BP 153 / 94; Pulse 59; Resp 18; Pulse Ox 99% ; cp4 19:02 Body Mass Index 29.53 (90.72 kg, 175.26 cm) tm6 19:02 Pain Scale: Adult tm6 John Coma Score: 19:26 Eye Response: spontaneous(4). Motor Response: obeys commands(6). Verbal Response: cp4 oriented(5). Total: 15. Trauma Score (Adult): 19:26 Eye Response: spontaneous(1); Verbal Response: oriented(1); Motor Response: obeys cp4 commands(2); Systolic BP: > 89 mm Hg(4); Respiratory Rate: 10 to 29 per min(4); [place] Score: 15; Trauma Score: 12 MDM: 18:59 Medical Screening Exam initiated rn 20:04 Independent interpretation of the following test(s) in the Emergency Department X-Ray: rn My interpretation is X-ray left shoulder images negative for fracture or dislocation per my interpretation. 20:08 Differential diagnosis: closed head injury, contusion, fracture, sprain, strain. Data rn reviewed: vital signs, nurses notes, lab test result(s), EKG, radiologic studies, CT scan, plain films, and as a result, I will discharge patient. Counseling: I had a detailed discussion with the patient and/or guardian regarding the historical points, exam findings, and any diagnostic results supporting the discharge/admit diagnosis, lab results, radiology results, the need for outpatient follow up, to return to the emergency department if symptoms worsen or persist or if there are any questions or concerns that arise at home. Special discussion: I discussed with the patient/guardian in detail that at this point there is no indication for admission to the hospital. It is understood, however, that if the symptoms persist or worsen the patient needs to return immediately for re-evaluation. 02/11 19:04 Order name: Basic Metabolic Panel; Complete Time: 20:03 rn 02/11 19:04 Order name: CBC with Diff; Complete Time: 20:03 rn 02/11 19:04 Order name: Protime (+inr); Complete Time: 20:03 rn 02/11 19:04 Order name: Ptt, Activated; Complete Time: 20:03 rn 02/11 19:04 Order name: LFT's; Complete Time: 20:03 rn 02/11 19:05 Order name: CT Traumagram (Head C Spine CAP wo con); Complete Time: 20:07 rn 02/11 19:21 Order name: XRAY Shoulder LEFT 2 view; Complete Time: 20:03 rn 02/11 19:04 Order name: Labs collected and sent; Complete Time: 19:32 rn EC:10 Rate is 60 beats/min. Rhythm is regular. QRS [place] is Normal. [place] interval is normal. QRS rn interval is normal. QT interval is normal. No Q waves. T waves are Normal. No ST changes noted. Clinical impression: Normal ECG. Interpreted by me. Reviewed by me. Administered Medications: No medications were administered Disposition Summary: 02/12/24 20:09 Discharge Ordered Notes: Location: Home rn Problem: new rn Symptoms: have improved rn Condition: Stable rn Diagnosis - Fall on same level from slipping, tripping and stumbling with subsequent striking rn against object - Contusion of left back wall of thorax rn - Contusion of left shoulder rn Followup: rn - With: Private Physician - When: As needed - Reason: Recheck today's complaints, Re-evaluation by your physician Discharge Instructions: - Discharge Summary Sheet rn - Shoulder Pain rn - Shoulder Sprain rn Forms: - Medication Reconciliation Form rn - Antibiotic contract attorney - Prescription Opioid Use rn - Patient Portal Instructions rn - Leadership Thank You Letter rn Signatures: Dispatcher [employer] EDMS Pablo Cobos MD MD rn Potter, Christina 4 Thoams Reza RN RN tm6 Corrections: (The following items were deleted from the chart) 19:31 19:04 Head C Spine CAP W Con+CT.RAD.BRZ ordered. EDMS EDMS
--- NOTE | 2024-02-12 20:10 | ER ---
Nurse's Notes [facility] Name: Sam Perdomo Jr Age: 68 yrs Sex: Male : 1955 Arrival Date: 02/12/2024 Time: 18:49 Bed 4 Private MD: Diagnosis: Fall on same level from slipping, tripping and stumbling with subsequent striking against object;Contusion of left back wall of thorax;Contusion of left shoulder Presentation: 02/11 19:02 Chief complaint: Patient states: about 3pm today I was washing my golf cart, climbed on tm6 the back of it, and fell off and landed on my back. Since then I have had chest pain, jaw/neck/shoulder pain. Brain fog, shortness of breath, I just don't feel right. Coronavirus screen: Client denies travel out of the [place] in the last 14 days. Ebola Screen: Patient negative for fever greater than or equal to 101.5 degrees Fahrenheit, and additional compatible Ebola Virus Disease symptoms Patient denies exposure to infectious person. Patient denies travel to an Ebola-affected area in the 21 days before illness onset. No symptoms or risks identified at this time. Initial Sepsis Screen: Does the patient meet any 2 criteria? No. Patient's initial sepsis screen is negative. Does the patient have a suspected source of infection? No. Patient's initial sepsis screen is negative. Risk Assessment: Do you want to hurt yourself or someone else? Patient reports no desire to harm self or others. Onset of symptoms was February 12, 2024 at 15:00. 19:02 Method Of Arrival: Ambulatory tm6 19:02 Acuity: MELODY 3 tm6 19:26 Care prior to arrival: None. Mechanism of Injury: Fall down steps. Trauma event cp4 details: Injury occurred in the [facility]. Triage Assessment: 19:05 General: Appears uncomfortable, Behavior is cooperative. Pain: Complains of pain in tm6 back, chest and neck Pain currently is 3 out of 10 on a pain scale. Quality of pain is described as aching, dull. EENT: No signs and/or symptoms were reported regarding the EENT system. Neuro: Level of Consciousness is awake, alert, obeys commands, Oriented to person, place, time, situation, Reports brain fog. Cardiovascular: Reports chest pain, shortness of breath, Patient's skin is warm and dry. Respiratory: Reports shortness of breath Airway is patent Respiratory effort is even, unlabored, Respiratory pattern is regular, symmetrical. GI: No signs and/or symptoms were reported involving the gastrointestinal system. Abdomen is flat, non-distended. : No signs and/or symptoms were reported regarding the genitourinary system. Derm: No signs and/or symptoms reported regarding the dermatologic system. Musculoskeletal: Reports pain in back, chest and neck. Trauma Activation: Not Applicable Physician: ED Physician; Name: ; Notified At: ; Arrived At: Physician: General Surgeon; Name: ; Notified At: ; Arrived At: Physician: Radiology; Name: ; Notified At: ; Arrived At: Physician: Respiratory; Name: ; Notified At: ; Arrived At: Physician: Lab; Name: ; Notified At: ; Arrived At: Historical: - Allergies: 19:05 Demerol; tm6 19:05 deoxepin; tm6 19:05 diclofenac sodium; tm6 19:05 Dilaudid; tm6 19:05 Doxycycline; tm6 19:05 Iodine; tm6 19:05 kapidex; tm6 19:05 Levofloxacin; tm6 19:05 Lunesta; tm6 19:05 meperidine; tm6 19:05 SHELLFISH; tm6 19:05 tamsulosin; tm6 - PMHx: 19:05 Myocardial infarction; Hypertensive disorder; tm6 - PSHx: 19:05 CABG; urobladder lift; tm6 - Immunization history:: Flu vaccine is up to date. - Infectious Disease History:: Denies. - Immunization history: Last tetanus immunization: - up to date. - Social history:: Smoking status: Patient denies any tobacco usage or history of. Screenin:26 Abuse screen: Denies threats or abuse. Tuberculosis screening: No symptoms or risk cp4 factors identified. 19:29 [facility] ED Fall Risk Assessment (Adult) History of falling in the last 3 months, cp4 including since admission Yes- single mechanical fall (1 pt) Confusion or Disorientation No (0 pts) Intoxicated or Sedated No (0 pts) Impaired Gait No (0 pts) Mobility Assist Device Used No (0 pt) Altered Elimination No (0 pt) Score/Fall Risk Level 0 - 2 = Low Risk Oriented to surroundings, Maintained a safe environment, Assessed \T\ reinforced patient's understanding of fall precautions, Hourly rounding (assess needs \T\ fall precautionary measures) done. Nutritional screening: No deficits noted. Primary Survey: 19:26 NO uncontrolled hemorrhage observed. A: The client is awake and alert. The airway is cp4 patent. Breathing/Chest: Spontaneous respiratory effort, equal unlabored respirations, breath sounds clear bilaterally, regular pattern, symmetrical chest rise and fall. Circulation: No external hemorrhage present. Regular and strong central pulse, skin warm/dry/normal color. Disability Pupils are equal, round, reactive to light and accommodation. Client is alert. Exposure/Environment: A warming method has been applied: A warm blanket has been provided to the patient. Reassessment Alertness and Airway: Awake and alert. The airway is patent. Breathing: Spontaneous respiratory effort, equal unlabored respirations, breath sounds clear bilaterally, regular pattern with symmetrical chest rise and fall. Circulation: No external hemorrhage noted. Regular and strong central pulse, skin warm/dry/normal color. Disability: Pupils Pupils are equal, round, reactive to light and accomodation. Alert. Assessment: 19:29 General: Appears in no apparent distress. uncomfortable, Behavior is calm, cooperative, cp4 appropriate for age. Pain: Complains of pain in anterior aspect of left shoulder and posterior aspect of left shoulder and chest and back Pain does not radiate. Pain currently is 9 out of 10 on a pain scale. Neuro: Level of Consciousness is awake, alert, obeys commands, Oriented to person, place, time, situation. Cardiovascular: Patient's skin is warm and dry. Respiratory: Airway is patent Respiratory effort is even, unlabored. GI: No signs and/or symptoms were reported involving the gastrointestinal system. : No signs and/or symptoms were reported regarding the genitourinary system. EENT: No signs and/or symptoms were reported regarding the EENT system. Derm: No signs and/or symptoms reported regarding the dermatologic system. Musculoskeletal: Reports pain in anterior aspect of left shoulder and posterior aspect of left shoulder and neck and chest and back. Vital Signs: 19:02 BP 172 / 79; Pulse 64; Resp 19; Pulse Ox 99% on R/A; MAP 108 mmHg; Weight 90.72 kg; tm6 Height 5 ft. 9 in. ; Pain 3/10; 20:15 BP 153 / 94; Pulse 59; Resp 18; Pulse Ox 99% ; cp4 19:02 Body Mass Index 29.53 (90.72 kg, 175.26 cm) tm6 19:02 Pain Scale: Adult tm6 John Coma Score: 19:26 Eye Response: spontaneous(4). Motor Response: obeys commands(6). Verbal Response: cp4 oriented(5). Total: 15. Trauma Score (Adult): 19:26 Eye Response: spontaneous(1); Verbal Response: oriented(1); Motor Response: obeys cp4 commands(2); Systolic BP: > 89 mm Hg(4); Respiratory Rate: 10 to 29 per min(4); Cleveland Score: 15; Trauma Score: 12 ED Course: 18:52 Patient arrived in ED. im 18:59 Pablo Cobos MD is Attending Physician. rn 19:05 Triage completed. tm6 19:05 Arm band placed on right wrist. tm6 19:06 EKG done, by ED staff, reviewed by Pablo Cobos MD. tm6 19:25 Beata Pennington is Primary Nurse. cp4 19:26 Bed in low position. Call light in reach. Side rails up X 1. cp4 19:26 Patient maintains SpO2 saturation greater than 95% on room air. cp4 19:29 No provider procedures requiring assistance completed. Inserted saline lock: 22 gauge cp4 in left antecubital area, using aseptic technique. Blood collected. Flushed with 10 mL NS. 19:37 XRAY Shoulder LEFT 2 view In Process Unspecified. EDMS 19:47 CT Traumagram (Head C Spine CAP wo con) In Process Unspecified. EDMS 20:16 intact, bleeding controlled, No redness/swelling at site. Pressure dressing applied. cp4 20:17 Provided Education on: shoulder pain. cp4 20:17 Thermoregulation: warm blanket given to patient. cp4 Administered Medications: No medications were administered Medication: 19:29 VIS not applicable for this client. cp4 Intake: 19:26 PO: 0ml; Total: 0ml. cp4 Outcome: 20:09 Discharge ordered by MD. rn 20:16 Discharged to home ambulatory, cp4 20:16 Condition: stable 20:16 Discharge instructions given to patient, Instructed on discharge instructions, follow up and referral plans. Demonstrated understanding of instructions, follow-up care, 20:16 Patient's length of stay was not longer than 2 hours. cp4 20:17 Patient left the ED. cp4 Signatures: Dispatcher [employer] EDMS Pablo Cobos MD MD rn Mendoza, Itzel im Potter, Christina cp4 Swathi Hallman kmf Thomas Reza RN RN tm6 Corrections: (The following items were deleted from the chart) 19:33 19:29 Inserted saline lock: 20 gauge in left antecubital area, using aseptic technique. kmf Blood collected. Flushed with 10 mL NS cp4
[2024-02-12 20:44] VITALS: O2SAT 99
[2024-02-12 20:45] VITALS: BP 153/94
--- NOTE | 2024-02-13 11:07 | EKG ---
Test Date: 2024-02-12 Test Time: 19:05:38 Paid Search Marketing Strategist: DANYELLE MEASUREMENT RESULTS: Intervals: Rate: 60 NV: 122 QRSD: 86 QT: 444 QTc: 444 Scott: P: 19 NV: 122 QRS: 13 T: 64 INTERPRETIVE STATEMENTS: Normal sinus rhythm Normal ECG Compared to ECG 06/15/2023 14:02:50 Sinus bradycardia no longer present Electronically Signed On 02-13-24 11:06:51 WELDING MACHINE OPERATOR GAS by Chu Dover
== END 2024-02-12 20:17 | disposition home or self-care (01) ==
LOC: ER 18:49
DX: S20.222A Contusion of left back wall of thorax, initial encounter (principal); S40.012A Contusion of left shoulder, initial encounter; W01.198A Fall on same level from slipping, tripping and stumbling with subsequent striking against other object, initial encounter; Z95.1 Presence of aortocoronary bypass graft
CPT/HCPCS: 36415; 70450; 71250; 72125; 80048; 80076; 85025; 85610; 85730; 93005; 99284

== ENCOUNTER 2024-07-10 17:15 | Emergency (ER) | payer OTHER ==
[2024-07-10 18:58] LABS: Absolute Basophils 0.1 K/uL (0-0.5); Absolute Eosinophils 0.1 K/uL (0-0.5); Absolute Lymphocytes (CBC) 2.5 K/uL (0.7-4.9); Absolute Monocytes 1.1 K/uL (0.1-1.3); Absolute Neutrophil 5.4 K/uL (1.8-8.0); Eosinophils % 1.4 % (0-4.4); Hematocrit 43.7 % (39.6-49.0); MCH 32.6 pg (27.0-35.0); MCHC 34.4 g/dL (32.0-36.0); MPV 10.2 fL (7.6-11.3); Monocytes % 11.9 % (3.3-12.3); Neutrophils % 58.7 % (41.7-73.7); Nucleated Red Blood Cells % 0.1 % (0-0); Platelets 181 thou/uL (152-406); Red Cell Distribution Width 14.2 % (12.1-15.2)
[2024-07-10 19:14] LABS: Albumin 3.4 g/dL (3.4-5.0); Anion Gap 8.8 mEq/L (5.0-15.0); Bilirubin Total 0.5 mg/dL (0.2-1.0); Globulin 3.3 g/dL (2.3-3.5); Potassium 3.8 mEq/L (3.5-5.1); Protein, Total 6.7 g/dL (6.4-8.2)
--- NOTE | 2024-07-10 19:27 | RAD REPORT ---
EXAMINATION: CT Abdomen Pelvis Wo Contrast CLINICAL INDICATION: Male, 68 years old. ABD PAIN TECHNIQUE: CT abdomen and pelvis was performed, without IV contrast, as per department protocol. Axia l, sagittal and coronal reconstructions were obtained. One or more of the following dose reduction techniques were used: Automated exposure control, adjustment of the mA and kV according to the patien t size, and iterative reconstruction. Unless otherwise specified, incidental findings do not require dedicated imaging follow-up. COMPARISON: 03/04/2023 FINDINGS: The lack of intravenous contrast limits the sensitivity of this exam for evaluation of solid visceral organs, vascular structures, and retroperitoneum. LOWER CHEST: The visualized lung bases are clear. LIVER: Normal in size and contour. No focal lesion. BILIARY SYSTEM: No suspicious abnormalities. SPLEEN: Normal size. No focal lesion. PANCREAS: No mass, ductal dilation, or jp-pancreatic fluid. ADRENALS: Normal; no mass. KIDNEYS AND URETERS: Stable exophytic fluid density lesions largest measuring 4.3 cm at the left lowe r pole and 1.9 cm at the right interpolar anterior cortex. Nonobstructing left renal calculi largest at the interpolar region measuring 3 mm, stable. Normal size and contour otherwise. No hydron ephrosis. URINARY BLADDER: Decompressed limiting evaluation. GASTROINTESTINAL TRACT: No evidence of bowel obstruction, significant free fluid, free air or abscess . Sequelae of partial distal colectomy with anastomotic suture line again seen. APPENDIX: Normal appendix. LYMPH NODES: No lymphadenopathy. MUSCULOSKELETAL: No acute or suspicious osseous abnormality. ADDITIONAL FINDINGS: Radiation markers within the prostate gland again seen.. IMPRESSION: Stable nonobstructing left renal calculi up to 3 mm. No other acute or concerning abnormalities in the abdomen or pelvis, with evaluation limited by lack of IV contrast. Stable incidental findings including renal cortical cysts.
--- NOTE | 2024-07-10 19:37 | EDPHYS ---
Physician Documentation [facility] Name: Sam Perdomo Jr Age: 68 yrs Sex: Male : 1955 Arrival Date: 07/10/2024 Time: 17:15 Bed 5 Private MD: ED Physician Gordy Keenan HPI: 07/10 18:17 This 68 yrs old Male presents to ER via Ambulatory with complaints of Abdominal Pain. ms3 18:17 68-year-old male with past medical history of hypertension, myocardial infarction ms3 presents to the emergency department for right lower quadrant abdominal pain. Patient states he initially had epigastric pain and yesterday he began having right lower quadrant abdominal pain. Patient denies nausea, vomiting. Patient states he has a bloated feeling. Patient rates his discomfort a 10/10. Historical: - Allergies: 17:57 diclofenac sodium; db 17:57 Demerol; db 17:57 deoxepin; db 17:57 Dilaudid; db 17:57 kapidex; db 17:57 Iodine; db 17:57 meperidine; db 17:57 SHELLFISH; db 17:57 Lunesta; db 17:57 Levofloxacin; db 17:57 Doxycycline; db 17:57 tamsulosin; db - PMHx: 17:57 Hypertensive disorder; Myocardial infarction; db - PSHx: 17:57 CABG; urobladder lift; db - Immunization history:: Adult Immunizations unknown. - Infectious Disease History:: Denies. - Social history:: Smoking status: Patient denies any tobacco usage or history of. ROS: 18:17 Constitutional: Negative for fever, and chills. Cardiovascular: Negative for chest ms3 pain, and palpitations. Respiratory: Negative for shortness of breath, cough, wheezing, and pleuritic chest pain, 18:17 MS/Extremity: Negative for injury and deformity, Skin: Negative for injury, rash, and discoloration, 18:17 Abdomen/GI: Positive for abdominal pain, Exam: 18:17 Constitutional: This is a well developed, well nourished patient who is awake, alert, ms3 and in no acute distress. Head/Face: Normocephalic, atraumatic. Cardiovascular: Regular rate and rhythm with a normal S1 and S2. No gallops, murmurs, or rubs. Normal PMI, no JVD. No pulse deficits. Respiratory: Lungs have equal breath sounds bilaterally, clear to auscultation and percussion. No rales, rhonchi or wheezes noted. No increased work of breathing, no retractions or nasal flaring. 18:17 Abdomen/GI: Inspection: abdomen appears normal, Bowel sounds: normal, Palpation: moderate abdominal tenderness, in the right lower quadrant, Vital Signs: 17:55 BP 140 / 81; Pulse 71; Resp 16; Temp 98; Pulse Ox 95% ; Weight 92.99 kg; Height 5 ft. db 10 in. ; Pain 5/10; 19:21 BP 166 / 96; Pulse 64; Resp 16; Pulse Ox 95% on R/A; kd3 17:55 Body Mass Index 29.41 (92.99 kg, 177.8 cm) db 17:55 Pain Scale: Adult db MDM: 17:59 Medical Screening Exam initiated ms3 18:17 Differential diagnosis: appendicitis, bowel obstruction, non-specific abd pain. ms3 20:33 Data reviewed: vital signs, nurses notes, lab test result(s), radiologic studies, and ms3 as a result, I will discharge patient. Counseling: I had a detailed discussion with the patient and/or guardian regarding the historical points, exam findings, and any diagnostic results supporting the discharge/admit diagnosis, lab results, radiology results, the need for outpatient follow up, to return to the emergency department if symptoms worsen or persist or if there are any questions or concerns that arise at home. Special discussion: Based on the patient's Hx, exam, and Dx evaluation, there is no indication for emergent surgery or inpatient Tx. It is understood by the patient/guardian that if the Sx's persist or worsen they need to return immediately for re-evaluation. ED course: Discussed labs and CT findings with patient. Appendix is normal on CT. Patient to follow-up with primary care physician in 2 to 3 days. Patient understands agrees with plan. All questions were answered. Return precautions discussed include worsening symptoms, or any other concerns. on reevaluation patient is alert and oriented x 4, no apparent distress, nontoxic-appearing, speaking full sentences, ambulatory in the emergency department. 07/10 17:44 Order name: CBC with Diff; Complete Time: 19:32 ms3 07/10 17:44 Order name: CMP; Complete Time: 19:32 ms3 07/10 17:44 Order name: Lipase; Complete Time: 19:32 ms3 07/10 18:04 Order name: CT Abd/Pelvis - Without Contrast; Complete Time: 19:32 ms3 07/10 17:44 Order name: IV Saline Lock; Complete Time: 18:41 ms3 07/10 17:44 Order name: Labs collected and sent; Complete Time: 18:41 ms3 Administered Medications: No medications were administered Disposition Summary: 07/10/24 19:36 Discharge Ordered Notes: Location: Home ms3 Condition: Stable ms3 Diagnosis - Lower abdominal pain, unspecified ms3 Followup: ms3 - With: Farzad Torre MD - When: 2 - 3 days - Reason: Recheck today's complaints Discharge Instructions: - Discharge Summary Sheet ms3 - Abdominal Pain, Adult ms3 Forms: - Medication Reconciliation Form ms3 - Antibiotic Education ms3 - Prescription Opioid Use ms3 - Patient Portal Instructions ms3 - Leadership Thank You Letter ms3 Signatures: Dispatcher [employer] Gordy Olguin DO DO ms3 Maty Cardenas, RN RN db
--- NOTE | 2024-07-10 19:37 | ER ---
Nurse's Notes [facility] Name: Sam Perdomo Jr Age: 68 yrs Sex: Male : 1955 Arrival Date: 07/10/2024 Time: 17:15 Bed 5 Private MD: Diagnosis: Lower abdominal pain, unspecified Presentation: 07/10 17:55 Chief complaint: Patient states: MIDDLE UPPER ABD PAIN RADIATING TO RIGHT UPPER ABD. db STARTED YESTERDAY. DENIES N/V. DENIES DIARRHEA. Coronavirus screen: Client denies travel out of the [place] in the last 14 days. At this time, the client does not indicate any symptoms associated with coronavirus-19. Ebola Screen: Patient negative for fever greater than or equal to 101.5 degrees Fahrenheit, and additional compatible Ebola Virus Disease symptoms Patient denies exposure to infectious person. Patient denies travel to an Ebola-affected area in the 21 days before illness onset. No symptoms or risks identified at this time. Initial Sepsis Screen: Does the patient meet any 2 criteria? No. Patient's initial sepsis screen is negative. Does the patient have a suspected source of infection? No. Patient's initial sepsis screen is negative. Risk Assessment: Do you want to hurt yourself or someone else? Patient reports no desire to harm self or others. Onset of symptoms was July 09, 2024. 17:55 Method Of Arrival: Ambulatory db 17:55 Acuity: MELODY 3 db Triage Assessment: 17:57 General: Appears in no apparent distress. comfortable, Behavior is calm, cooperative. db Pain: Complains of pain in epigastric area and right upper quadrant. Neuro: Level of Consciousness is awake, alert, obeys commands, Oriented to person, place, time, situation. Respiratory: Airway is patent Respiratory effort is even, unlabored, Respiratory pattern is regular, symmetrical. GI: Abdomen is distended, Abdomen is tender to palpation Reports upper abdominal pain. Historical: - Allergies: 17:57 diclofenac sodium; db 17:57 Demerol; db 17:57 deoxepin; db 17:57 Dilaudid; db 17:57 kapidex; db 17:57 Iodine; db 17:57 meperidine; db 17:57 SHELLFISH; db 17:57 Lunesta; db 17:57 Levofloxacin; db 17:57 Doxycycline; db 17:57 tamsulosin; db - PMHx: 17:57 Hypertensive disorder; Myocardial infarction; db - PSHx: 17:57 CABG; urobladder lift; db - Immunization history:: Adult Immunizations unknown. - Infectious Disease History:: Denies. - Social history:: Smoking status: Patient denies any tobacco usage or history of. Screenin:20 Abuse screen: Denies threats or abuse. Denies injuries from another. Nutritional kd3 screening: No deficits noted. 19:20 [facility] ED Fall Risk Assessment (Adult) History of falling in the last 3 months, kd3 including since admission No falls in past 3 months (0 pts) Confusion or Disorientation No (0 pts) Intoxicated or Sedated No (0 pts) Impaired Gait No (0 pts) Mobility Assist Device Used No (0 pt) Altered Elimination No (0 pt) Score/Fall Risk Level 0 - 2 = Low Risk Oriented to surroundings. Tuberculosis screening: No symptoms or risk factors identified. Assessment: 19:19 General: Appears in no apparent distress. Behavior is calm, cooperative. General: Pt kd3 seen in the stretcher. Pt was independently ambulatory from triage. PT reports that he has already been to CT and denies any current needs. Pt placed on continuous monitoring. VSS. call light in reach . Neuro: Level of Consciousness is awake, alert, obeys commands, Oriented to person, place, time, situation. Respiratory: Airway is patent Trachea midline Respiratory effort is even, unlabored, Respiratory pattern is regular, symmetrical. 19:43 GI: Bowel sounds present X 4 quads. kd3 Vital Signs: 17:55 BP 140 / 81; Pulse 71; Resp 16; Temp 98; Pulse Ox 95% ; Weight 92.99 kg; Height 5 ft. db 10 in. ; Pain 5/10; 19:21 BP 166 / 96; Pulse 64; Resp 16; Pulse Ox 95% on R/A; kd3 17:55 Body Mass Index 29.41 (92.99 kg, 177.8 cm) db 17:55 Pain Scale: Adult db ED Course: 17:17 Patient arrived in ED. mr 17:44 Gordy Keenan DO is Attending Physician. ms3 17:57 Triage completed. db 17:58 Arm band placed on right wrist. db 18:41 CBC with Diff Sent. bc6 18:41 CMP Sent. bc6 18:41 Lipase Sent. bc6 18:41 Initial lab(s) drawn, by ky, sent to lab. Inserted saline lock: 20 gauge in left bc6 antecubital area, using aseptic technique. Blood collected. Flushed with 10 mL NS. 19:06 CT Abd/Pelvis - Without Contrast In Process Unspecified. EDMS 19:17 Yolanda Aggarwal, RN is Primary Nurse. kd3 19:36 Farzad Torre MD is Referral Physician. ms3 19:43 Patient has correct armband on for positive identification. Provided Education on: kd3 abdominal pain . 19:43 No provider procedures requiring assistance completed. IV discontinued, intact, kd3 bleeding controlled, No redness/swelling at site. Pressure dressing applied. Administered Medications: No medications were administered Medication: 19:21 VIS not applicable for this client. kd3 Outcome: 19:36 Discharge ordered by . ms3 19:43 Discharged to home ambulatory, kd3 19:43 Condition: stable 19:43 Discharge instructions given to patient, Instructed on discharge instructions, follow up and referral plans. Demonstrated understanding of instructions, follow-up care, 19:44 Patient left the ED. kd3 Signatures: Dispatcher [employer] EDMS AndrewLuh, Reg Reg mr Gordy Keenan, DO ms3 Yolanda Aggarwal, MARCELINO BENSON kd3 Maty Cardenas RN RN db [place], [facility]
[2024-07-10 20:22] VITALS: TEMP 98; O2SAT 95
[2024-07-10 20:24] VITALS: BP 166/96
--- OUTSIDE RECORDS SUMMARY | 2024-07-10 21:31 | XMS REPORT | Continuity of Care Document ---
Author Name Unknown Address [address] [place] [address] [facility] Address [address] [place] [address] Care Team Providers Care Inspection Supervisor Name Role Phone Albino Torre Primary Care Physician [phone] Albino Torre Attending Clinician Unavailable Alanis Petit MD Attending Clinician [phone] LOR TILLMAN Attending Clinician Unavailable ALANIS PETIT Attending Clinician Unavail able Agustín Attending Clinician Unavail able Ludin Mccurdy Attending Clinician Anthony Osuna Attending Clinician Unavailable Casey Barrow Attending Clinician [phone] YUKI_Danial_Manfred_ Admitting Clinician Unavail Ludin Murillo Admitting Clinician Anthony Osuna Admitting Clinician Unavailable Albino Torre Admitting Clinician Unavailable Payers Payer Name Policy Type Policy Number Effective Date Expirati on Date Source [facility] [employer] PPO [id number] 2023 00:00:00 [facility] AARP MCR Advantage (HMO-POS) [id number] 2021 00:00:00 [facility] MEDICARE ADVANTAGE Medicare [id number] 2023 00:00:00 [facility] MEDICARE COMPLETE (MEDICARE REPLACEMENT HMO) [id number] [facility] - PHYSICIAN HEALTH CHOICE (MEDICARE REPLACEMENT HMO) [id number] Problems Condition Name Condition Details Condition Category Status Onset Date Resolution Date Last Treatment Date Treating Clinician Comments Source Benign localized prostatic hyperplasi a with lower urinary tract symptoms (LUTS) Benign localized prostatic hyperplasi a with lower urinary tract symptoms (LUTS) Disease Active 02-28 00:00: 00 Emre Willoughby CAD (coronary artery disease) CAD (coronary artery disease) Disease Active 02-28 00:00: 00 Emre Willoughby Anemia Anemia Disease Active 08-17 00:00: 00 Emre Willoughby Headache Headache Disease Active 08-17 00:00: 00 Emre Willoughby Hyperlipid emia Hyperlipid emia Disease Active 08-17 00:00: 00 Emre Willoughby Hypertensi on Hypertensi on Disease Active 08-17 00:00: 00 Emre Willoughby S/P CABG x 4 S/P CABG x 4 Disease Active 08-17 00:00: 00 Emre Willoughby Cervical spondylosi s Cervical spondylosi s Disease Active 08-17 00:00: 00 Emre Willoughby Temporal arteritis (CMS/HCC) Temporal arteritis (CMS/HCC) Disease Active 08-17 00:00: 00 Emre Jonas Epic Full thickness rotator cuff tear Full thickness rotator cuff tear Disease Active 07-02 00:00: 00 Emre Jonas Epic Sprain of rotator cuff capsule Sprain of rotator cuff capsule Disease Active 05 00:00: 00 Emre Jonas Epic Nontraumat ic rupture of long head of biceps brachii tendon of left shoulder Nontraumat ic Rupture of Long Head of Biceps Brachii Tendon of Left Shoulder Problem Active 04-28 00:00: 00 [facility] Sprain of left rotator cuff capsule Sprain of Left Rotator Cuff Capsule Problem Active 04-28 00:00: 00 [facility] 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, right lower limb Problem [facility] Lumbar radiculopa thy Radiculopa thy, lumbar region Problem [facility] Acute osteomyeli tis Acute hematogeno us osteomyeli tis, unspecifie d site Problem [facility] 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 Problem [facility] [id number] Urge incontinen ce Problem [facility] [id number] Gastroesop hageal reflux disease, esophagiti s presence not specified Problem [facility] [id number] Diverticul ar disease Problem [facility] [id number] Dyslipidem ia Problem [facility] [id number] Incomplete emptying of bladder Problem [facility] [id number] Essential hypertensi on Problem [facility] [id number] OAB (overactiv e bladder) Problem [facility] [id number] History of coronary artery disease Problem [facility] [id number] History of arteritis Problem [facility] [id number] Lower urinary tract symptoms (LUTS) Problem [facility] 99970572 Lower obstructiv e uropathy Problem [facility] [id number] Detrusor dysfunctio n Problem [facility] [id number] Elevated PSA Problem [facility] [id number] Primary testicular failure Problem [facility] [id number] ED (erectile dysfunctio n) of organic origin Problem [facility] Chest pain Chest pain Disease Resolve d 02-28 00:00: 00 2024-02-29 00:00:00 2024-02-29 09:30:57 Memalysha Jonas Epic Shoulder pain Shoulder pain Disease Resolve d 08-17 00:00: 00 2023-08-18 00:00:00 2023-08-18 10:35:18 Memalysha Jonas Epic Allergies, Adverse Reactions, Alerts Allergy Name Allergy Type Status Severity Reaction(s) Onset Date Inactive Date Treating Clinician Comments Source Meperidi ne Hcl Propensi ty to adverse reaction s Active 08-17 00:00: 00 Memoria l Pritesh Epic Dexlanso prazole Propensi ty to adverse reaction s Active 08-17 00:00: 00 Memoria l Pritesh Epic Diclofen ac Propensi ty to adverse reaction s Active 08-17 00:00: 00 Memoria l Pritesh Epic Hydromor phone Propensi ty to adverse reaction s Active 08-17 00:00: 00 Memoria l Pritesh Epic Iodine Propensi ty to adverse reaction s Active 08-17 00:00: 00 [facility] [place] [facility] Levoflox acin Propensi ty to adverse reaction s Active 08-17 00:00: 00 [facility] [place] [facility] Eszopicl one Propensi ty to adverse reaction s Active 08-17 00:00: 00 [facility] [place] [facility] MEPERIDI NE HCL DRUG Active 08-17 00:00: 00 [facility] ESZOPICL ONE DRUG INGREDI Active 08-17 00:00: 00 [facility] DICLOFEN AC DRUG INGREDI Active 08-17 00:00: 00 [facility] IODINE DRUG INGREDI Active 08-17 00:00: 00 [facility] LEVOFLOX ACIN DRUG INGREDI Active 08-17 00:00: 00 [facility] DEXLANSO PRAZOLE DRUG INGREDI Active 08-17 00:00: 00 [facility] HYDROMOR PHONE DRUG INGREDI Active 08-17 00:00: 00 [facility] Meperidi ne Hcl Drug Allergy Active 04-15 00:00: 00 Other Reaction( s): Unknown [facility] Dexlanso prazole Propensi ty to adverse reaction s Active 04-15 00:00: 00 [facility] Hydromor phone Propensi ty to adverse reaction s Active 04-15 00:00: 00 [facility] Levoflox acin Allergy to substanc e Active 07-27 00:00: 00 Other Reaction( s): Unknown [facility] Eszopicl one Allergy to substanc e Active 07-27 00:00: 00 Other Reaction( s): Unknown [facility] Iodine Allergy to substanc e Active 07-27 00:00: 00 Other Reaction( s): Unknown [facility] iodine DA Active MD FLUSH, FEEL HOT 07-27 00:00: 00 [facility] doxycycl ine DA Active MD CRAMPS 07-27 00:00: 00 [facility] diclofen ac DA Active U DIARRHEA 07-27 00:00: 00 [facility] doxepin DA Active MO AFFECTS MEMORY, INSOMNIA 07-27 00:00: 00 [facility] meperidi ne DA Active U UNKNOWN 07-27 00:00: 00 [facility] hydromor phone DA Active SV THROAT SWELLS 07-27 00:00: 00 [facility] tamsulos in DA Active MO ABNORMAL EJACULATION, FLU SYMPTOMS, FEVER 07-27 00:00: 00 [facility] levoflox acin DA Active U UNKNOWN 07-27 00:00: 00 [facility] eszopicl one DA Active U UNKNOWN 07-27 00:00: 00 [facility] dexlanso prazole DA Active U UNKOWN 07-27 00:00: 00 [facility] oyster extract DA Active MO ITCHING 07-27 00:00: 00 [facility] crab FA Active MO ITCHING, CHILLS 07-27 00:00: 00 [facility] hydromor phone DA Active SV THROAT SWELLS 07-23 00:00: 00 [facility] tamsulos in DA Active MO ABNORMAL EJACULATION, FLU SYMPTOMS, FEVER 07-23 00:00: 00 [facility] levoflox acin DA Active U UNKNOWN 07-23 00:00: 00 [facility] eszopicl one DA Active U UNKNOWN 07-23 00:00: 00 [facility] dexlanso prazole DA Active U UNKOWN 07-23 00:00: 00 [facility] oyster extract DA Active MO ITCHING 07-23 00:00: 00 [facility] crab FA Active MO ITCHING, CHILLS 07-23 00:00: 00 [facility] CRAWFISH DA Active SV THROAT SWELLS 07-23 00:00: 00 [facility] iodine DA Active MD FLUSH, FEEL HOT 07-23 00:00: 00 [facility] doxycycl ine DA Active MD CRAMPS 07-23 00:00: 00 [facility] diclofen ac DA Active U DIARRHEA 07-23 00:00: 00 [facility] doxepin DA Active MO AFFECTS MEMORY, INSOMNIA 07-23 00:00: 00 [facility] meperidi ne DA Active U UNKNOWN 07-23 00:00: 00 [facility] Meperidi ne Allergy to substanc e Active - 00:00: 00 Other Reaction( s): Unknown [facility] Diclofen ac Allergy to substanc e Active 2021-02 2 00:00: 00 Other Reaction( s): Unknown [facility] dexlanso prazole dexlanso prazole Active Unknown [facility] tamsulos in tamsulos in Active Unknown [facility] eszopicl one eszopicl one Active Unknown [facility] crab allergen ic extract crab allergen ic extract Active Unknown [facility] diclofen ac diclofen ac Active Unknown [facility] meperidi ne meperidi ne Active Unknown [facility] doxycycl ine doxycycl ine Active Unknown [facility] Shellfis h (FN) Shellfis h (FN) Active Unknown [facility] [address]21 Drug allergy Active Unknown [facility] Doxepin Doxepin Active Unknown [facility] 463 Drug allergy Active Unknown [facility] Dilaudid Dilaudid Active [facility]oria [facility] Dexilant Dexilant Active [facility] [place] Meperidi ne HCl-Prom ethazine HCl Meperidi ne HCl-Prom ethazine HCl Active [facility] [place] levoflox acin levoflox acin Active Unknown [facility] ALLERGIE S NOT ON FILE SYSTEMIC Active [facility] hydromor phone hydromor phone Active Unknown [facility] 3707 Drug allergy Active Unknown [facility] doxepin doxepin Active Unknown [facility] Social History Social Habit Start Date Stop Date Quantity Comments Source Gender identity 2023-05-14 05:15:22 Identifies as male gender (finding) [facility] History of Tobacco Use [facility] Sex Assigned At [facility] Sexual orientation [facility] Alcoholic beverage intake 2023-11-30 00:00:00 2023-11-30 00:00:00 1 /d [facility] History of Social function 2023-11-30 00:00:00 2023-11-30 00:00:00 [facility] Tobacco use and exposure 2023-08-18 00:00:00 2023-08-18 00:00:00 Smokeless tobacco non-user [facility] Tobacco Comment 2023-04-15 00:00:00 2023-04-15 00:00:00 N/A [facility] Smoking Status Start Date Stop Date Source Never Smoker Aleah Marks iaanthony Medications Ordered Medication Name Filled Medication Name Start Date Stop Date Current Medication? Ordering Clinician Indication Dosage Frequency Signature (SIG) Comments Components Source predniSONE (Deltasone) 1 MG tablet predniSONE (Deltasone) 1 MG tablet 02-28 00:00: 00 02-28 23:59 :00 No [id number] 2mg QD Take 2 tablets by mouth 1 time each day. Emre Willoughby predniSONE (Deltasone) 1 MG tablet predniSONE (Deltasone) 1 MG tablet 2023-02 00:00: 00 02-28 00:00 :00 No [id number] 4mg QD TAKE 4 TABLETS BY MOUTH DAILY Emre Willoughby cycloSPORIN E (Restasis) 0.05 % ophthalmic emulsion cycloSPORIN E (Restasis) 0.05 % ophthalmic emulsion 08-17 10:31: 14 Yes 1[drp] Q.5D Administer 1 drop into both eyes in the morning and 1 drop in the evening. Emre Willoughby metoprolol tartrate (Lopressor) 25 MG tablet metoprolol tartrate (Lopressor) 25 MG tablet 08-17 10:31: 14 Yes 25mg Q.5D Take 25 mg by mouth in the morning and 25 mg before bedtime. Emre Willoughby polyethylen e glycol, PEG, 3350 (Miralax) 17 g packet polyethylen e glycol, PEG, 3350 (Miralax) 17 g packet 08-17 10:31: 14 Yes 17g QD Take 17 g by mouth 1 time each day. Emre Willoughby predniSONE (Deltasone) 1 MG tablet predniSONE (Deltasone) 1 MG tablet 08-17 00:00: 00 12-26 00:00 :00 No [id number] 3mg QD Take 3 tablets by mouth 1 time each day. Emre Willoughby fluticasone (Flonase) 50 MCG/ACT nasal spray fluticasone (Flonase) 50 MCG/ACT nasal spray 5-24 00:00: 00 Yes 2{spray } QD Administer 2 sprays into each nostril 1 time each day. Emre Willoughby benzonatate (Tessalon) 200 MG capsule benzonatate (Tessalon) 200 MG capsule 5-24 00:00: 00 Yes 1{capsu le} [id number].[id number] 3D Take 1 capsule by mouth every 6 hours during the day. Natachaalysha kwaku Willough[facility] finasteride (Proscar) 5 MG tablet finasteride (Proscar) 5 MG tablet 4-04 00:00: 00 Yes 1{tbl} QD Take 1 tablet by mouth 1 time each day. Emre Jonas [place] tadalafil (Cialis) 20 MG tablet tadalafil (Cialis) 20 MG tablet 4-04 00:00: 00 Yes 20mg Q24H Take 20 mg by mouth daily as needed. Emre Jonas [place] polyethylen e glycol (Glycolax) 17 g packet 04-15 14:15: 59 Yes 1 (one) time each day at the same time. [facility] traMADol (Ultram) 50 MG tablet 04-15 14:15: 59 Yes 1 (one) time each day at the same time. [facility] aspirin 81 MG EC tablet 04-15 14:15: 58 Yes 1{capsu le} 1 capsule 1 (one) time each day at the same time. 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 if still anxious, # 5 tab, 0 Refill(s), Pharmacy: [facility] #[id number], 170.18, cm, 10/13/22 14:08:00 CDT, Height, 81.364, kg, 10/13/22 14:08:00 CDT, Weight Memoria kwaku Jonas predniSONE 1 mg oral tablet 10-13 19:50: 00 Yes 3 mg = 3 tab, PO, Daily, # 90 tab, 3 Refill(s), Pharmacy: [facility] #[id number], 170.18, cm, 10/13/22 14:08:00 CDT, Height, 81.364, kg, 10/13/22 14:08:00 CDT, Weight Memalysha Jonas Metoprolol Tartrate 25 mg oral tablet 10-13 19:13: 00 Yes 25 mg = 1 tab, PO, BID, TAKE 1/2 A TABLET ORALLY TWICE A DAY Memoria kwaku Jonas cephalexin 500 mg oral capsule 10-13 19:13: 00 Yes 0 Refill(s) Memalysha Jonas cloNIDine 0.1 mg oral tablet 10-13 19:12: 00 Yes 0.1 mg = 1 tab, PO, BID, 0 Refill(s) Memalysha Jonas cloNIDine (Catapres) 0.1 MG tablet cloNIDine (Catapres) 0.1 MG tablet 10-13 00:00: 00 Yes .1mg 0.1 mg = 1 tab, PO, BID, 0 Refill(s) Memoria kwaku Jonas Epic losartan (Cozaar) 100 MG tablet losartan (Cozaar) 100 MG tablet 10-13 00:00: 00 Yes 100mg 100 mg = 1 tab, PO, Daily, # 30 tab, 0 Refill(s) Memoria kwaku Pritesh Epic cephalexin (Keflex) 500 MG capsule cephalexin (Keflex) 500 MG capsule 10-13 00:00: 00 08-17 00:00 :00 No 0 Refill(s) [facility] kwaku [place] [facility] predniSONE 1 mg oral tablet 3 13:39: 00 Yes 3 mg = 3 tab, PO, Daily, # 90 tab, 3 Refill(s), Pharmacy: [id number], 170.18, cm, 04/21/22 10:43: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, Height, 89.716, kg, 04/21/22 10:43: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, 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 [facility] [place] predniSONE 1 mg oral tablet 04-21 16:59: 00 Yes 3 mg = 3 tab, PO, Daily, # 90 tab, 3 Refill(s), [facility]: [id number], 170.18, cm, 04/21/22 10:43: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, Height, 89.716, kg, 04/21/22 10:43: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, 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 [facility] [place] predniSONE 1 mg oral tablet 2021-02 21:17: 00 Yes See Batsheva mcmanus, 4 tab PO Daily, # 120 tab, 3 Refill(s), [facility]acy: [facility] #[id number], 170.18, cm, 10/21/21 9:53:00 CDT, Height, 95, kg, 10/21/21 9:53:00 CDT, Weight Memoria l Pritesh predniSONE 2.5 mg oral tablet 10-21 15:02: 00 Yes 5 mg = 2 tab, PO, Daily, # 60 tab, 4 Refill(s), Pharmacy: [id number], 170.18, cm, 10/21/21 9:53:00 CDT, Height, 95, kg, 10/21/21 9:53:00 CDT, Weight [facility] [place] predniSONE 2.5 mg oral tablet 07-23 15:20: 00 Yes 7.5 mg = 3 tab, PO, Daily, # 90 tab, 4 Refill(s), [facility]: [id number], 170.18, cm, 07/23/21 10:00:00 CDT, Height, 94.688, kg, 07/23/21 10:00:00 CDT, Weight [facility] [place] predniSONE 10 mg oral tablet -15 14:53: 00 Yes 10 mg = 1 tab, PO, Daily, # 30 tab, 2 Refill(s), Pharmacy: [facility] #[id number], 170.18, cm, 06/05/21 9:28:00 CDT, Height, 95, kg, 06/05/21 9:28:00 CDT, Weight Emre Jonas alfuzosin ER (Uroxatral) 10 MG 24 hr tablet alfuzosin ER (Uroxatral) 10 MG 24 hr tablet 06-05 00:00: 00 Yes 10mg 10 mg = 1 tab, PO, Daily, # 30 tab, 0 Refill(s) Memalysha Jonas Epic predniSONE 10 mg oral tablet 04-24 16:34: 00 Yes 10 mg = 1 tab, PO, Daily, # 30 tab, 2 Refill(s), Pharmacy: [facility] #[id number], 170.18, cm, 04/24/21 10:11: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, Weight Emre Jonas predniSONE 20 mg oral tablet 2020-02 15:50: 00 No 60 mg = 3 tab, PO, Daily, 0 Refill(s) Emre Jonas MethylPREDN ISolone Dose Pack 4 mg oral tablet 2020-02 15:46: 00 No FOLLOW PACKAGE DIRECTIONS Natachaalysha Jonas atorvastati n 10 mg oral tablet 07-10 16:00: 00 Yes TAKE 1 TABLET BY MOUTH EVERY NIGHT AT BEDTIME Natachaalysha kwaku Pritesh atorvastati n (Lipitor) 10 MG tablet atorvastati n (Lipitor) 10 MG tablet 07-10 00:00: 00 Yes TAKE 1 TABLET BY MOUTH EVERY NIGHT AT BEDTIME Emre Jonas Epic Prednisone 1 MG Oral Tablet 2019-02 17:25: 00 Yes 1 mg = 1 tab, PO, Daily, # 30 tab, 4 Refill(s), Pharmacy: 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, Weight Natachaalysha Jonas Prednisone 1 MG Oral Tablet 10-10 15:57: 00 Yes 2 mg = 2 tab, PO, Daily, # 60 tab, 4 Refill(s), Pharmacy: [facility][id number], 172.72, cm, 10/11/19 10:47:00 CDT, Height, 94.545, kg, 10/11/19 10:47:00 CDT, Weight Emre Jonas predniSONE 2.5 mg oral tablet 07-10 16:17: 00 Yes 2.5 mg = 1 tab, PO, Daily, # 30 tab, 3 Refill(s), Pharmacy: [facility] #[id number] Emre Jonas predniSONE 2.5 mg oral tablet 2018-02 22:46: 14 Yes 5 mg = 2 tab, PO, Daily, # 60 tab, 3 Refill(s), Pharmacy: [facility] #[id number] Emre Jonas predniSONE 2.5 mg oral tablet 11-10 21:29: 41 Yes 7.5 mg = 3 tab, PO, Daily, # 90 tab, 3 Refill(s), Pharmacy: [facility] #[id number] Emre Jonas Restasis 11-10 21:07: 00 Yes 0.4 mL, BOTH EYES, BID, 0 Refill(s) Emre Jonas Restasis 11-10 21:07: 00 Yes 0.4 mL, BOTH EYES, BID, 0 Refill(s) Emre Jonas predniSONE 2.5 mg oral tablet 09-22 21:15: 19 Yes 5 mg = 2 tab, PO, Daily, # 60 tab, 3 Refill(s), Pharmacy: [facility] #[id number] Emre Jonas predniSONE 2.5 mg oral tablet 08-23 16:57: 34 No 7.5 mg = 3 tab, PO, Daily, # 90 tab, 3 Refill(s), Pharmacy: [facility] [id number] Emre Jonas Ketorolac 15mg Ketorolac 15mg 07-28 00:00: 00 No 60mg [facility] predniSONE 2.5 mg oral tablet 07-07 14:29: 00 Yes 5 mg = 2 tab, PO, Daily, # 60 tab, 3 Refill(s), [facility] [id number] Emre Jonas atorvastati n 20 mg oral tablet 07-07 14:19: 00 Yes 20 mg = 1 tab, PO, Bedtime, # 30 tab, 0 Refill(s) Emre Jonas azilsartan medoxomil 40 MG Oral Tablet [Edarbi] 07-07 14:19: 00 Yes 40 mg = 1 tab, PO, Daily, 0 Refill(s) Emre Jonas Aspirin 81 MG Enteric Coated Tablet 07-07 14:19: 00 Yes 81 mg = 1 tab, PO, Daily, # 90 tab, 3 Refill(s) Emre Jonas Bystolic 20 mg oral tablet 07-07 14:19: 00 Yes 40 mg = 2 tab, PO, Bedtime, 0 Refill(s) Emre Jonas Edarbi 40 mg oral tablet 07-07 14:19: 00 Yes 40 mg = 1 tab, PO, Daily, 0 Refill(s) Emre Jonas clopidogrel 75 mg oral tablet 07-07 14:19: 00 Yes 75 mg = 1 tab, PO, Daily, # 30 tab, 0 Refill(s) Emre Jonas aspirin 81 mg tablet, enteric coated 07-07 14:19: 00 Yes 81 mg = 1 tab, PO, Daily, # 90 tab, 3 Refill(s) Emre Jonas omeprazole 40 mg oral delayed release capsule 07-07 14:19: 00 Yes 40 mg = 1 cap, PO, Daily, # 30 cap, 0 Refill(s) Emre Jonas aspirin EC 81 MG EC tablet aspirin EC 81 MG EC tablet 07-07 00:00: 00 Yes 81mg 81 mg = 1 tab, PO, Daily, # 90 tab, 3 Refill(s) Emre Jonas Epic omeprazole (PriLOSEC) [address] capsule omeprazole (PriLOSEC) [address] capsule 07-07 00:00: 00 Yes 40mg 40 mg = 1 cap, PO, Daily, # 30 cap, 0 Refill(s) Emre Jonas Epic clopidogrel (Plavix) 75 MG tablet clopidogrel (Plavix) 75 MG tablet 07-07 00:00: 00 11-29 00:00 :00 No 75mg 75 mg = 1 tab, PO, Daily, # 30 tab, 0 Refill(s) Emre Jonas [facility] Azilsartan Medoxomil (Edarbi) 40 MG tablet Azilsartan Medoxomil (Edarbi) 40 MG tablet 07-07 00:00: 00 08-17 00:00 :00 No 40mg 40 mg = 1 tab, PO, Daily, 0 Refill(s) Emre Jonas [facility] amlodipine 10 mg tablet TAKE 1 TABLET BY MOUTH EVERY DAY amlodipine 10 mg tablet TAKE 1 TABLET BY MOUTH EVERY DAY No amlodipine 10 mg tablet TAKE 1 TABLET BY MOUTH EVERY DAY [facility] amlodipine 5 mg tablet TAKE 1 TABLET BY MOUTH EVERY DAY amlodipine 5 mg tablet TAKE 1 TABLET BY MOUTH EVERY DAY No amlodipine 5 mg tablet TAKE 1 TABLET BY MOUTH EVERY DAY [facility] amoxicillin 500 mg capsule TAKE 4 CAPSULES BY MOUTH 1 HOUR BEFORE APPOINTMENT amoxicillin 500 mg capsule TAKE 4 CAPSULES BY MOUTH 1 HOUR BEFORE APPOINTMENT No amoxicilli n 500 mg capsule TAKE 4 CAPSULES BY MOUTH 1 HOUR BEFORE APPOINTMEN T [facility] atorvastati n 40 mg tablet TAKE 1 TABLET BY MOUTH EVERYDAY AT BEDTIME atorvastati n 40 mg tablet TAKE 1 TABLET BY MOUTH EVERYDAY AT BEDTIME No atorvastat in 40 mg tablet TAKE 1 TABLET BY MOUTH EVERYDAY AT BEDTIME [facility] azithromyci n 250 mg tablet USE DIRECTED azithromyci n 250 mg tablet USE DIRECTED No azithromyc in 250 mg tablet USE DIRECTED [facility] ciprofloxac in 500 mg tablet TAKE 1 TABLET BY MOUTH TWICE A DAY ciprofloxac in 500 mg tablet TAKE 1 TABLET BY MOUTH TWICE A DAY No ciprofloxa esa 500 mg tablet TAKE 1 TABLET BY MOUTH TWICE A DAY [facility] clindamycin phosphate 1 % topical solution APPLY ONCE OR TWICE DAILY TO AFFECTED AREAS ON BUTTOCKS AFTER WASHING AND BENZOYL PEROXIDE clindamycin phosphate 1 % topical solution APPLY ONCE OR TWICE DAILY TO AFFECTED AREAS ON BUTTOCKS AFTER WASHING AND BENZOYL PEROXIDE No clindamyci n phosphate 1 % topical solution APPLY ONCE OR TWICE DAILY TO AFFECTED AREAS ON BUTTOCKS AFTER WASHING AND BENZOYL PEROXIDE [facility] lorazepam 0.5 mg tablet TAKE 1 TAB BY MOUTH 1 HOUR PRIOR TO MRI, MAY REPEAT EVERY 15 MIN. IF STILL ANXIOUS lorazepam 0.5 mg tablet TAKE 1 TAB BY MOUTH 1 HOUR PRIOR TO MRI, MAY REPEAT EVERY 15 MIN. IF STILL ANXIOUS No lorazepam 0.5 mg tablet TAKE 1 TAB BY MOUTH 1 HOUR PRIOR TO MRI, MAY REPEAT EVERY 15 MIN. IF STILL ANXIOUS [facility] losartan 50 mg tablet TAKE 1 TABLET BY MOUTH EVERY DAY losartan 50 mg tablet TAKE 1 TABLET BY MOUTH EVERY DAY No losartan 50 mg tablet TAKE 1 TABLET BY MOUTH EVERY DAY [facility] nebivolol 20 mg tablet TAKE 2 TABLETS BY MOUTH EVERY EVENING nebivolol 20 mg tablet TAKE 2 TABLETS BY MOUTH EVERY EVENING No nebivolol 20 mg tablet TAKE 2 TABLETS BY MOUTH EVERY EVENING [facility] prednisolon e acetate 1 % eye drops,suspe nsion INSTILL 1 DROP INTO BOTH EYES 4 TIMES A DAY FOR 7 DAYS THEN TAPER BY 1 DROP EACH WEEK prednisolon e acetate 1 % eye drops,suspe nsion INSTILL 1 DROP INTO BOTH EYES 4 TIMES A DAY FOR 7 DAYS THEN TAPER BY 1 DROP EACH WEEK No prednisolo ne acetate 1 % eye drops,susp ension INSTILL 1 DROP INTO BOTH EYES 4 TIMES A DAY FOR 7 DAYS THEN TAPER BY 1 DROP EACH WEEK [facility] prednisone 50 mg tablet prednisone 50 mg tablet No prednisone 50 mg tablet [facility] sodium fluoride 1.1 % dental paste BRUSH TEETH TWICE A DAY DIRECTED sodium fluoride 1.1 % dental paste BRUSH TEETH TWICE A DAY DIRECTED No sodium fluoride 1.1 % dental paste BRUSH TEETH TWICE A DAY DIRECTED [facility] sodium fluoride 1.1 %-potassium nitrate 5 % dental paste USE TO BRUSH TEETH TWICE A DAY sodium fluoride 1.1 %-potassium nitrate 5 % dental paste USE TO BRUSH TEETH TWICE A DAY No sodium fluoride 1.1 %-potassiu m nitrate 5 % dental paste USE TO BRUSH TEETH TWICE A DAY [facility] sodium,pota ssium,mag sulfates 17.5 gram-3.13 gram-1.6 gram oral soln DIRECTED sodium,pota ssium,mag sulfates 17.5 gram-3.13 gram-1.6 gram oral soln DIRECTED No sodium,pot assium,mag sulfates 17.5 gram-3.13 gram-1.6 gram oral soln DIRECTED [facility] solifenacin 5 mg tablet TAKE 1 TABLET BY MOUTH EVERY DAY FOR 30 DAYS solifenacin 5 mg tablet TAKE 1 TABLET BY MOUTH EVERY DAY FOR 30 DAYS No solifenaci n 5 mg tablet TAKE 1 TABLET BY MOUTH EVERY DAY FOR 30 DAYS [facility] Xiidra 5 % eye drops in a dropperette INSTILL 1 DROP INTO BOTH EYES TWICE A DAY Xiidra 5 % eye drops in a dropperette INSTILL 1 DROP INTO BOTH EYES TWICE A DAY No Xiidra 5 % eye drops in a dropperett e INSTILL 1 DROP INTO BOTH EYES TWICE A DAY [facility] Omeprazole Omeprazole No Omeprazole Losartan Potassium 50 MG Losartan Potassium 50 MG No 1{table t} QD Losartan Potassium 50 MG Ibuprofen 200 MG Ibuprofen 200 MG No TID Ibuprofen 200 MG Famotidine 20 MG Famotidine 20 MG No 1{table t_at_be dtime_a s_neede d} QD Famotidine 20 MG Aspirin 81 MG Aspirin 81 MG No 1{capsu le} QD Aspirin 81 MG Alfuzosin HCl ER 10 MG Alfuzosin HCl ER 10 MG No 1{table t_immed iately_ after_t he_same _meal} QD Alfuzosin HCl ER 10 MG LORazepam 0.5 MG LORazepam 0.5 MG No 1{table t_at_be dtime_a s_neede d} QD LORazepam 0.5 MG traMADol HCl 50 MG traMADol HCl 50 MG No 1{table t_as_ne eded} QD traMADol HCl 50 MG Metoprolol Tartrate 37.5 MG Metoprolol Tartrate 37.5 MG No 1{table t_with_ food} BID Metoprolol Tartrate 37.5 MG Losartan Potassium 100 MG Losartan Potassium 100 MG No 1{table t} QD Losartan Potassium 100 MG Lipitor 40 MG Lipitor 40 MG No 1{table t} QD Lipitor 40 MG amLODIPine Besylate 5 MG amLODIPine Besylate 5 MG No 1{table t} QD amLODIPine Besylate 5 MG Atorvastati n Calcium 40 MG Atorvastati n Calcium 40 MG No Atorvastat in Calcium 40 MG Immunizations Ordered Immunization Name Filled Immunization Name Date Status Comments Source [id number] Unknown Completed [facility] Vital Signs Vital Name Observation Time Observation Value Comments S josef height 2024-03-22 11:15:00 70 [in_i] Commo n [facility] weight 2024-03-22 11:15:00 202.6 [lb_av] Co mmon [facility] temperature 2024-03-22 11:15:00 98.1 [degF] Com mon [facility] bmi 2024-03-22 11:15:00 29.07 kg/m2 Comm on [facility] oximetry 2024-03-22 11:15:00 95 % Commo n [facility] respiratory rate 2024-03-22 11:15:00 18 /min [facility] blood pressure systolic 2024-03-22 11:15:00 154 mm[Hg] [facility] blood pressure diastolic 2024-03-22 11:15:00 73 mm[Hg] [facility] Heart rate 2024-02-29 09:29:00 59 /min [facility] Body temperature 2024-02-29 09:29:00 36.22 Vijaya [facility] Respiratory rate 2024-02-29 09:29:00 16 /min [facility] Body height 2024-02-29 09:29:00 172.7 cm [facility] Body weight 2024-02-29 09:29:00 92.08 kg [facility] BMI 2024-02-29 09:29:00 30.87 kg/m2 [facility] Oxygen saturation in Arterial blood by Pulse oximetry 2024-02-29 09:29:00 98 /min [facility] Systolic blood pressure 2024-02-29 09:29:00 142 mm[Hg] [facility] Diastolic blood pressure 2024-02-29 09:29:00 75 mm[Hg] [facility] Heart rate 2024-02-29 09:29:00 59 /min Yoon davis [facility] Body temperature 2024-02-29 09:29:00 36.22 Vijaya [facility] Respiratory rate 2024-02-29 09:29:00 16 /min [facility] Body height 2024-02-29 09:29:00 172.7 cm John gramajo [facility] Body weight 2024-02-29 09:29:00 92.08 [facility] 2024-02-29 09:29:00 30.87 kg/m2 [facility] Oxygen saturation in Arterial blood by Pulse oximetry 2024-02-29 09:29:00 98 /min [facility] Systolic blood pressure 2024-02-29 09:29:00 142 mm[Hg] [facility] Diastolic blood pressure 2024-02-29 09:29:00 75 mm[Hg] [facility] height 2023-12-21 10:00:00 70 [in_i] Commo n [facility] weight 2023-12-21 10:00:00 204.0 [lb_av] Co mmon [facility] temperature 2023-12-21 10:00:00 98.4 [degF] Com mon [facility] bmi 2023-12-21 10:00:00 29.27 kg/m2 Comm on [facility] oximetry 2023-12-21 10:00:00 93 % Commo n [facility] respiratory rate 2023-12-21 10:00:00 18 /min Common [facility] blood pressure systolic 2023-12-21 10:00:00 141 mm[Hg[facility] blood pressure diastolic 2023-12-21 10:00:00 86 mm[Hg] Common [facility] Systolic blood pressure 2023-11-30 09:39:00 155 mm[Hg] [facility] Diastolic blood pressure 2023-11-30 09:39:00 85 mm[Hg] [facility] Heart rate 2023-11-30 09:39:00 62 /min [facility] Body temperature 2023-11-30 09:39:00 36.28 Vijaya [facility] Respiratory rate 2023-11-30 09:39:00 16 /min [facility] Body height 2023-11-30 09:39:00 172.7 cm John gramajo [facility] Body weight 2023-11-30 09:39:00 93.26 kg Johnjenna gramajo [facility] BMI 2023-11-30 09:39:00 31.26 kg/m2 John gramajo [facility] Oxygen saturation in Arterial blood by Pulse oximetry 2023-11-30 09:39:00 96 /min [facility] Systolic blood pressure 2023-11-30 09:39:00 155 mm[Hg] [facility] Diastolic blood pressure 2023-11-30 09:39:00 85 mm[Hg] [facility] Heart rate 2023-11-30 09:39:00 62 /min [facility] temperature 2023-11-30 09:39:00 36.28 [facility] Respiratory rate 2023-11-30 09:39:00 16 /min [facility] Body height 2023-11-30 09:39:00 172[facility]7 [facility] 2023-11-30 09:39:00 93.26 kg John gramajo [facility] BMI 2023-11-30 09:39:00 31.26 kg/m2 John [facility] Oxygen saturation in Arterial blood by Pulse oximetry 2023-11-30 09:39:00 96 /min [facility] height 2023-08-24 16:30:00 70 [in_i] Commo n [facility] weight 2023-08-24 16:30:00 199.0 [lb_av] Co mmon [facility] temperature 2023-08-24 16:30:00 98.2 [degF] Com mon [facility] bmi 2023-08-24 16:30:00 28.55 kg/m2 Comm on [facility] oximetry 2023-08-24 16:30:00 93 % Commo n [facility] respiratory rate 2023-08-24 16:30:00 18 /min [facility] blood pressure systolic 2023-08-24 16:30:00 126 mm[Hg] [facility] blood pressure diastolic 2023-08-24 16:30:00 69 mm[Hg] [facility] Systolic blood pressure 2023-08-18 10:35:00 109 mm[Hg] [facility] Diastolic blood pressure 2023-08-18 10:35:00 71 mm[Hg] [facility] Heart rate 2023-08-18 10:35:00 59 /min [facility] Body temperature 2023-08-18 10:35:00 36.28 [facility] Respiratory rate 2023-08-18 10:35:00 16 /min [facility] Body height 2023-08-18 10:35:00 172.7 cm John rial [facility] Body weight 2023-08-18 10:35:00 89.359 kg John rial [place] [facility] BMI 2023-08-18 10:35:00 29.95 kg/m2 John rial [facility] Oxygen saturation in Arterial blood by Pulse oximetry 2023-08-18 10:35:00 96 /min [facility] Systolic blood pressure 2023-08-18 10:35:00 109 mm[Hg] [facility] Diastolic blood pressure 2023-08-18 10:35:00 71 mm[Hg] [facility] Heart rate 2023-08-18 10:35:00 59 /min [facility] Body temperature 2023-08-18 10:35:00 36.28 [facility] Epic Respiratory rate 2023-08-18 10:35:00 16 /min [facility] Body height 2023-08-18 10:35:00 172.7 cm John rial [facility] Body weight 2023-08-18 10:35:00 89.359 kg John rial [place] [facility] BMI 2023-08-18 10:35:00 29.95 kg/m2 John rial [facility] Oxygen saturation in Arterial blood by Pulse oximetry 2023-08-18 10:35:00 96 /min [facility] Systolic blood pressure 2023-04-15 20:26:00 134 mm[Hg] [facility] Diastolic blood pressure 2023-04-15 20:26:00 86 mm[Hg] [facility] Heart rate 2023-04-15 20:26:00 62 /min [facility] Body temperature 2023-04-15 20:26:00 36.72 Vijaya [facility] Body height 2023-04-15 20:26:00 [facility]8 [facility] 2023-04-15 20:26:00 [facility]544 [facility] BMI 2023-04-15 20:26:00 27.69 kg/m2 [facility] height 2023-03-30 13:15:00 70 [in_i] Commo n [facility] weight 2023-03-30 13:15:00 192 [lb_av] Comm on [facility] temperature 2023-03-30 13:15:00 97.9 [degF] Com mon [facility] bmi 2023-03-30 13:15:00 27.55 kg/m2 Comm on [facility] oximetry 2023-03-30 13:15:00 99 % Commo n [facility] respiratory rate 2023-03-30 13:15:00 18 /min Common [facility] blood pressure systolic 2023-03-30 13:15:00 138 mm[Hg] Common [facility] blood pressure diastolic 2023-03-30 13:15:00 74 mm[Hg] [facility] height 2023-02-24 11:30:00 70 [in_i] Commo n [facility] weight 2023-02-24 11:30:00 188.6 [lb_av] Co mmon [facility] temperature 2023-02-24 11:30:00 98.2 [degF] Com mon [facility] bmi 2023-02-24 11:30:00 27.06 kg/m2 Comm on [facility] oximetry 2023-02-24 11:30:00 98 % Commo n [facility] respiratory rate 2023-02-24 11:30:00 18 /min [facility] blood pressure systolic 2023-02-24 11:30:00 174 mm[Hg] [facility] blood pressure diastolic 2023-02-24 11:30:00 80 mm[Hg] [facility] height 2022-12-22 10:45:00 70 [in_i] Commo n [facility] weight 2022-12-22 10:45:00 183.4 [lb_av] Co [facility] temperature 2022-12-22 10:45:00 98.4 [degF] Com [facility] bmi 2022-12-22 10:45:00 26.31 kg/m2 Comm on [facility] oximetry 2022-12-22 10:45:00 97 % Commo n [facility] respiratory rate 2022-12-22 10:45:00 18 /min Common [facility] blood pressure systolic 2022-12-22 10:45:00 174 mm[Hg] Common [facility] blood pressure diastolic 2022-12-22 10:45:00 81 mm[Hg] Common [facility] height 2022-05-20 10:15:00 70 [in_i] Commo n [facility] weight 2022-05-20 10:15:00 198.4 [lb_av] Co on [facility] temperature 2022-05-20 10:15:00 98.2 [degF] Com [facility] bmi 2022-05-20 10:15:00 28.46 kg/m2 Comm on [facility] oximetry 2022-05-20 10:15:00 95 % Commo n [facility] respiratory rate 2022-05-20 10:15:00 18 /min Common [facility] blood pressure systolic 2022-05-20 10:15:00 156 mm[Hg] [facility] blood pressure diastolic 2022-05-20 10:15:00 68 mm[Hg] Common [facility] height 2022-02-04 14:30:00 70 [in_i] Commo n [facility] weight 2022-02-04 14:30:00 204 [lb_av] Comm on [facility] temperature 2022-02-04 14:30:00 98.2 [degF] Com mon [facility] bmi 2022-02-04 14:30:00 29.27 kg/m2 Comm on [facility] oximetry 2022-02-04 14:30:00 99 % Commo n [facility] respiratory rate 2022-02-04 14:30:00 18 /min [facility] blood pressure systolic 2022-02-04 14:30:00 147 mm[Hg] [facility] blood pressure diastolic 2022-02-04 14:30:00 71 mm[Hg] Common [facility] height 2021-12-02 17:45:00 70 [in_i] Commo n [facility] weight 2021-12-02 17:45:00 207.4 [lb_av] Co mmon [facility] temperature 2021-12-02 17:45:00 98.4 [degF] Com mon [facility] bmi 2021-12-02 17:45:00 29.76 kg/m2 Comm on [facility] oximetry 2021-12-02 17:45:00 98 % Commo n [facility] respiratory rate 2021-12-02 17:45:00 18 /min Common [facility] blood pressure systolic 2021-12-02 17:45:00 135 mm[Hg] Common [facility] blood pressure diastolic 2021-12-02 17:45:00 65 mm[Hg] [facility] Systolic (mm Hg) 2022-12-07 19:25:00 [facility] [place] Diastolic (mm Hg) 2022-12-07 19:25:00 [facility] [place] Heart Rate 2022-12-07 19:25:00 [facility] Height 2022-12-07 19:25:00 5 [ft_i] [facility] Weight 2022-12-07 19:25:00 [facility] BMI Calculated 2022-12-07 19:25:00 [facility] [place] Systolic (mm Hg) 2022-10-13 18:57:00 [facility] [place] Diastolic (mm Hg) 2022-10-13 18:57:00 [facility] [place] Heart Rate 2022-10-13 18:57:00 [facility] [place] Height 2022-10-13 18:57:00 5 [ft_i] [facility] [place] Weight 2022-10-13 18:57:00 [facility] [place] BMI Calculated 2022-10-13 18:57:00 [facility] Systolic (mm Hg) 2022-04-21 16:40:00 [facility] Diastolic (mm Hg) 2022-04-21 16:40:00 [facility] Heart Rate 2022-04-21 16:40:00 [facility] [place] Height 2022-04-21 16:40:00 5 [ft_i] [facility] Weight 2022-04-21 16:40:00 [facility] BMI Calculated 2022-04-21 16:40:00 [facility] [place] Systolic (mm Hg) 2022-01-21 20:12:00 [facility] Diastolic (mm Hg) 2022-01-21 20:12:00 [facility] [place] Heart Rate 2022-01-21 20:12:00 [facility] [place] Systolic (mm Hg) 2021-10-21 14:44:00 [facility] [place] Diastolic (mm Hg) 2021-10-21 14:44:00 [facility] [place] Heart Rate 2021-10-21 14:44:00 [facility] [place] Respitory Rate 2021-10-21 14:44:00 [facility] Height 2021-10-21 14:44:00 170.18 cm [facility] [place] Weight 2021-10-21 14:44:00 [facility] BMI Calculated 2021-10-21 14:44:00 [facility] Systolic (mm Hg) 2021-07-23 15:00:00 [facility] Diastolic (mm Hg) 2021-07-23 15:00:00 [facility] [place] Heart Rate 2021-07-23 15:00:00 [facility] [place] Respitory Rate 2021-07-23 15:00:00 [facility] Height 2021-07-23 15:00:00 170.18 cm [facility] [place] Weight 2021-07-23 15:00:00 [facility] BMI Calculated 2021-07-23 15:00:00 [facility] Weight 2021-06-05 14:28:00 [facility] BMI Calculated 2021-06-05 14:28:00 [facility] [place] Systolic (mm Hg) 2021-06-05 14:28:00 [facility] [place] Diastolic (mm Hg) 2021-06-05 14:28:00 [facility] Heart Rate 2021-06-05 14:28:00 [facility] [place] Respitory Rate 2021-06-05 14:28:00 [facility] Height 2021-06-05 14:28:00 170.18 cm [facility] Systolic (mm Hg) 2021-04-24 16:11:00 [facility] [place] Diastolic (mm Hg) 2021-04-24 16:11:00 [facility] [place] Heart Rate 2021-04-24 16:11:00 [facility] Respitory Rate 2021-04-24 16:11:00 [facility] [place] Height 2021-04-24 16:11:00 170.18 cm [facility] Weight 2021-04-24 16:11:00 [facility] [place] BMI Calculated 2021-04-24 16:11:00 [facility] [place] Systolic (mm Hg) 2021-03-12 16:17:00 [facility] [place] Diastolic (mm Hg) 2021-03-12 16:17:00 [facility] Heart Rate 2021-03-12 16:17:00 [facility] Respitory Rate 2021-03-12 16:17:00 [facility] [place] Height 2021-03-12 16:17:00 170.18 cm [facility] Weight 2021-03-12 16:17:00 [facility] [place] BMI Calculated 2021-03-12 16:17:00 [facility] [place] Systolic (mm Hg) 2021-01-29 17:37:00 [facility] [place] Diastolic (mm Hg) 2021-01-29 17:37:00 [facility] Heart Rate 2021-01-29 17:37:00 [facility] [place] Respitory Rate 2021-01-29 17:37:00 [facility] Height 2021-01-29 17:37:00 172.72 cm [facility] [place] Weight 2021-01-29 17:37:00 [facility] [place] BMI Calculated 2021-01-29 17:37:00 [facility] Systolic (mm Hg) 2020-12-30 15:32:00 [facility] Diastolic (mm Hg) 2020-12-30 15:32:00 [facility] [place] Heart Rate 2020-12-30 15:32:00 [facility] [place] Respitory Rate 2020-12-30 15:32:00 [facility] Height 2020-12-30 15:32:00 170.18 cm [facility] Weight 2020-12-30 15:32:00 [facility] [place] BMI Calculated 2020-12-30 15:32:00 [facility] [place] Systolic (mm Hg) 2020-10-30 18:07:00 [facility] Diastolic (mm Hg) 2020-10-30 18:07:00 [facility] [place] Heart Rate 2020-10-30 18:07:00 [facility] Respitory Rate 2020-10-30 18:07:00 [facility] Height 2020-10-30 18:07:00 170.18 cm [facility] [place] Weight 2020-10-30 18:07:00 [facility] [place] BMI Calculated 2020-10-30 18:07:00 [facility] [place] Systolic (mm Hg) 2020-07-10 15:47:00 [facility] [place] Diastolic (mm Hg) 2020-07-10 15:47:00 [facility] Heart Rate 2020-07-10 15:47:00 [facility] Respitory Rate 2020-07-10 15:47:00 [facility] [place] Weight 2020-07-10 15:47:00 [facility] Systolic (mm Hg) 2020-01-11 16:41:00 [facility] Diastolic (mm Hg) 2020-01-11 16:41:00 [facility] [place] Heart Rate 2020-01-11 16:41:00 [facility] Respitory Rate 2020-01-11 16:41:00 [facility] Height 2020-01-11 16:41:00 172.72 cm [facility] [place] Weight 2020-01-11 16:41:00 [facility] BMI Calculated 2020-01-11 16:41:00 [facility] Systolic (mm Hg) 2019-10-11 15:47:00 [facility] Diastolic (mm Hg) 2019-10-11 15:47:00 [facility] Heart Rate 2019-10-11 15:47:00 [facility] [place] Respitory Rate 2019-10-11 15:47:00 [facility] [place] Height 2019-10-11 15:47:00 172.72 cm [facility] [place] Weight 2019-10-11 15:47:00 [facility] BMI Calculated 2019-10-11 15:47:00 [facility] Systolic (mm Hg) 2019-07-11 15:38:00 [facility] [place] Diastolic (mm Hg) 2019-07-11 15:38:00 [facility] Height 2019-07-11 15:38:00 177.8 cm [facility] Weight 2019-07-11 15:38:00 [facility] [place] BMI Calculated 2019-07-11 15:38:00 [facility] Systolic (mm Hg) 2019-04-12 17:46:00 [facility] Diastolic (mm Hg) 2019-04-12 17:46:00 [facility] [place] Heart Rate 2019-04-12 17:46:00 [facility] [place] Respitory Rate 2019-04-12 17:46:00 [facility] [place] Height 2019-04-12 17:46:00 177.8 cm [facility] Weight 2019-04-12 17:46:00 [facility] [place] BMI Calculated 2019-04-12 17:46:00 [facility] [place] Systolic (mm Hg) 2018-11-10 20:59:00 [facility] Diastolic (mm Hg) 2018-11-10 20:59:00 [facility] Heart Rate 2018-11-10 20:59:00 [facility] [place] Respitory Rate 2018-11-10 20:59:00 [facility] Height 2018-11-10 20:59:00 177.8 cm [facility] Weight 2018-11-10 20:59:00 [facility] [place] BMI Calculated 2018-11-10 20:59:00 [facility] Weight 2018-09-22 20:53:00 [facility] BMI Calculated 2018-09-22 20:53:00 [facility] [place] Height 2018-09-22 20:53:00 170.18 cm [facility] Heart Rate 2018-09-22 20:53:00 [facility] Respitory Rate 2018-09-22 20:53:00 [facility] Systolic (mm Hg) 2018-09-22 20:53:00 [facility] Diastolic (mm Hg) 2018-09-22 20:53:00 [facility] BMI Calculated 2018-08-18 14:07:00 [facility] [place] Weight 2018-08-18 14:07:00 [facility] Height 2018-08-18 14:07:00 177.8 cm [facility] Respitory Rate 2018-08-18 14:07:00 [facility] Heart Rate 2018-08-18 14:07:00 [facility] Systolic (mm Hg) 2018-08-18 14:07:00 [facility] [place] Diastolic (mm Hg) 2018-08-18 14:07:00 [facility] [place] Height 2018-07-08 00:59:00 177.8 cm [facility] BMI Calculated 2018-07-08 00:59:00 [facility] Weight 2018-07-08 00:59:00 [facility] [place] Respitory Rate 2018-07-08 00:59:00 [facility] 2018-07-08 00:59:00 [facility] [place] Systolic (mm Hg) 2018-07-08 00:59:00 [facility] Diastolic (mm Hg) 2018-07-08 00:59:00 [facility] [place] Procedures Procedure Date / Time Performed Performing Clinician Source Complete Blood Count w/Diff and Platelet 2024-05-29 00:00:00 [facility] Epic Sedimentation Rate 2024-05-29 00:00:00 [facility] [place] [facility] C-Reactive Protein 2024-05-29 00:00:00 [facility] [place] [facility] PVR 2024-03-22 00:00:00 [facility] C-Reactive Protein 2023-11-30 00:00:00 [facility] Epic Sedimentation Rate 2023-11-30 00:00:00 [facility] C-Reactive Protein 2023-08-18 00:00:00 [facility] Epic Sedimentation Rate 2023-08-18 00:00:00 [facility] [place] Epic Complete Blood Count w/Diff and Platelet 2023-08-18 00:00:00 [facility] [place] [facility] PVR 2023-05-26 00:00:00 [facility] XR, shoulder, 2 or more view 2023-05-12 00:00:00 [facility] PVR 2022-12-22 00:00:00 [facility] [id number] 2022-08-20 00:00:[address] [facility] [id number] 2022-08-16 00:00:[address] [facility] [id number] 2022-08-16 00:00:[address] [facility] [id number] 2022-08-16 00:00:00 CHAAB.01 [facility] [id number] 2022-08-03 00:00:[address] [facility] [facility] [facility] [id number] 2022-08-03 00:00:[address] [facility] [id number] 2022-08-03 00:00:[address] [facility] [id number] 2022-08-02 00:00:00 CHAAB.01 [facility] [id number] 2022-08-02 00:00:00 CHAAB.01 [facility] [id number] 2022-08-02 00:00:[address] [facility] [id number] 2022-08-02 00:00:[address] [facility] [id number] 2022-08-02 00:00:[address] [facility] [id number] 2022-08-02 00:00:[address] [facility] [id number] 2022-08-02 00:00:[address] [facility] [id number] 2022-07-27 00:00:[address] [facility] [id number] 2022-07-27 00:00:[address] [facility] [id number] 2022-07-27 00:00:[address] [facility] Cervical discectomy [facility] CABG - Coronary artery bypass graft [facility] Bypass<sup>1</sup> [facility] Plan of Care Planned Activity Planned Date Details Comments Source Instructions [facility] Encounters Start Date/Time End Date/Time Encounter Type Admission Type Attending Clinicians Care Facility Care Department Encounter ID Source 2023-12-23 08:53:01 Outpatient Albino Torre [facility] [id number] [place] [facility] 2022-03-25 07:27:00 [facility] [id number] [facility] 2021-12-02 17:04:01 [facility] [id number] [facility] 2024-05-29 00:00:00 2024-06-29 23:47:47 Orders Only Alanis Petit [id number] [id number] [id number] [facility] 09:00:00 2024-04-20 09:00:00 Outpatient PRIMOLOR [facility] [id number] [facility] 2024-03-22 00:00:00 2024-03-22 00:00:00 OFFICE VISIT ESTAB PT LEVEL 4 [facility] [id number] [facility] 2024-02-29 09:22:08 2024-02-29 09:47:54 Outpatient NICOLEALANIS SOUSA [facility] [id number] [facility] 2024-02-29 09:30:00 2024-02-29 09:45:00 Office Visit Alanis Petit Sandra [id number] [id number] 8.2.7.2.686 [id number] [facility] 2024-02-09 00:00:00 2024-02-09 00:00:00 Office Visit- Est Pt.- Level 3 [facility] [id number] Aleah platt 2024-01-17 00:00:00 2024-01-17 00:00:00 (F/U) Follow Up Visit [facility] [id number] Aleah platt 2023-12-27 00:00:00 2023-12-27 13:11:42 Refill Alanis Petit Sandra [id number] 350.1.13.70 8.2.7.2.686 [id number] [facility] 2023-12-23 00:00:00 2023-12-23 00:00:00 (F/U) Follow Up Visit [facility] [id number] [place] [facility] 2023-12-21 00:00:00 2023-12-21 00:00:00 OFFICE VISIT ESTAB PT LEVEL 5 [facility] [id number] [facility] 2023-11-30 09:45:00 2023-11-30 10:00:00 Office Visit Alanis Petit [place] 1.2.840.114 350.1.13.70 8.2.7.2.686 [id number] Emre ames [facility] 2023-11-30 09:20:26 2023-11-30 09:55:04 Outpatient ALANIS PETIT [facility] [id number] [facility] 2023-10-25 00:00:00 2023-10-25 00:00:00 ([place]) Nurse Visit [facility] [id number] [facility] 2023-08-24 00:00:00 2023-08-24 00:00:00 OFFICE VISIT ESTAB PT LEVEL 4 [facility] [id number] [facility] 2023-08-18 10:14:49 2023-08-18 10:59:56 Outpatient NICOLEALANIS SOUSA MHEOUT [facility] [id number] [facility] 2023-08-18 10:00:00 2023-08-18 10:15:00 Office Visit NicoleAlanis sousa Sandra 1.2.840.114 350.1.13.70 8.2.7.2.686 [id number] Emre ames [facility] 2023-05-26 00:00:00 2023-05-26 00:00:00 OFFICE VISIT ESTAB PT LEVEL 4 [facility] [id number] [facility] 2023-05-18 00:00:00 2023-05-18 00:00:00 Outpatient FOG_Elkousy _Husse_MD AOSM AO [id number] [facility] 2023-05-13 00:00:00 2023-05-13 00:00:00 Outpatient FOG_Elkousy _Husse_MD AOSM AOSM [id number] [facility] 2023-05-12 00:00:00 2023-05-12 00:00:00 [facility] [id number] [facility] 2023-05-12 00:00:00 2023-05-12 00:00:00 Casey Barrow MD: [address] [place] [address] , Ph. [phone] [place] [facility] [id number] [facility] 2023-05-06 10:30:00 2023-05-06 10:30:00 Outpatient LOR TILLMAN [facility] [id number] [facility] 2023-04-15 14:30:00 2023-04-15 14:33:31 Office Visit Lor Tillman [facility] 1.2.840.114 350.1.13.58 9.2.7.2.686 [id number] [facility] 2023-04-14 00:00:00 2023-04-14 00:00:00 (TEL) STLMLC STL[facility]C [id number] [facility] 2023-03-30 00:00:00 2023-03-30 00:00:00 OFFICE VISIT ESTAB PT LEVEL 4 [facility] [id number] [facility] 2023-03-24 00:00:00 2023-03-24 00:00:00 (TEL) STLMLC STLMLC [id number] [facility] 2023-03-24 00:00:00 2023-03-24 00:00:00 (PROC) Procedure STLMLC STLMLC [id number] [facility] 2023-03-24 00:00:00 2023-03-24 00:00:00 (WEB) STLMLC STLMLC [id number] [facility] 2023-02-24 00:00:00 2023-02-24 00:00:00 OFFICE VISIT ESTAB PT LEVEL 3 [facility] [id number] [facility] 2023-02-10 10:00:00 2023-02-10 10:00:00 Outpatient MHIE MHIE [id number] Emre Aguileraann 2022-12-22 00:00:00 2022-12-22 00:00:00 OFFICE VISIT ESTAB PT LEVEL 4 [facility] STL[facility]C [id number] [facility] 2022-12-07 19:15:00 2022-12-08 04:59:59 Outpatient MHIE [facility] [place] [id number] Emre ames [place] 2022-11-02 16:30:00 2022-11-02 16:30:00 Ambulatory Pre-Reg MHIE [facility] [place] [id number] Emre ames [place] 2022-10-13 19:00:00 2022-10-14 04:59:59 Outpatient MHIE [facility] [place] [id number] [place] 2022-08-26 15:30:00 2022-08-26 15:30:00 Ambulatory Pre-Reg MHIE [facility] [place] [id number] [place] 2022-08-16 12:01:00 2022-08-25 18:28:00 Inpatient Soraya Shrestha HCACL INTE.02 [id number] [facility] 2022-07-30 08:27:00 2022-08-09 16:50:00 Inpatient Anthony Hunt HCACL INTE.02 [id number] [facility] 2022-07-23 08:00:00 2022-07-23 09:00:00 Outpatient Anthony Hunt HCACL 3DAY [id number] [facility] 2022-05-20 00:00:00 2022-05-20 00:00:00 OFFICE VISIT ESTAB PT LEVEL 3 [facility]C STLMLC [id number] [facility] 2022-04-21 16:30:00 2022-04-22 05:59:59 Outpatient [facility] [place] [id number] Emre Jonas 2022-04-21 20:15:00 2022-04-21 20:15:00 Ambulatory Pre-Reg MH[facility] [place] [id number] Emre Jonas 2022-03-10 00:00:00 2022-03-10 00:00:00 OFFICE VISIT ESTAB PT LEVEL 1 [facility]C STL[facility]C [id number] [facility] 2022-03-03 00:00:00 2022-03-03 00:00:00 (TEL) STLMLC STLMLC [id number] [facility] 2022-02-07 00:00:00 2022-02-07 00:00:00 Outpatient YUKI_Danial Velázquez AOSM AO [id number] [facility] 2022-02-04 00:00:00 2022-02-04 00:00:00 OFFICE VISIT ESTAB PT LEVEL 5 [facility]C STLC [id number] [facility] 2022-01-21 20:00:00 2022-01-22 05:59:59 Outpatient MHIE [facility] [place] [id number] Emre Jonas 2021-12-02 00:00:00 2021-12-02 00:00:00 OFFICE VISIT ESTAB PT LEVEL 4 [facility]LMLC STLC [id number] [facility] 2021-10-21 14:45:00 2021-10-22 04:59:59 Outpatient nullFlavo r [facility] [place] [id number] Emre Jonas 2021-10-13 00:00:00 2021-10-13 00:00:00 Outpatient YUKI_Danial Velázquez AOSM AO [id number] [facility] 2021-10-13 00:00:00 2021-10-13 00:00:00 Outpatient Casey Barrow AOSM AOSM [id number] 2021-10-13 00:00:00 2021-10-13 00:00:00 Casey Barrow MD: [address] [place] [address] , Ph. [phone] A[facility] [place] [facility] [id number] [facility] 2021-07-23 14:45:00 2021-07-24 04:59:59 Outpatient nullFlavo r [facility] [place] [id number] Emre Jonas 2021-07-18 00:00:00 2021-07-18 00:00:00 Outpatient FOG_Antoniokomira _Manfred_ AOSM AO [id number] [facility] 2021-06-05 14:30:00 2021-06-06 04:59:59 Outpatient nullFlavo r [facility] [place] [id number] Emre Jonas 2021-04-24 16:15:00 2021-04-25 05:59:59 Outpatient nullFlavo r [facility] [place] [id number] Emre Jonas 2021-03-12 16:15:00 2021-03-13 05:59:59 Outpatient nullFlavo r [facility] [place] [id number] Emre Jonas 2021-01-29 17:30:00 2021-01-30 05:59:59 Outpatient nullFlavo r [facility] [place] [id number] Emre Jonas 2021-01-12 15:45:00 2021-01-12 15:45:00 Ambulatory Pre-Reg nullFlavo r [facility] [place] [id number] Emre Jonas 2020-12-30 15:30:00 2020-12-31 05:59:59 Outpatient nullFlavo r [facility] [place] [id number] Emre Jonas 2020-11-11 15:00:00 2020-11-11 15:00:00 Ambulatory Pre-Reg nullFlavo r [facility] [place] [id number] Emre Jonas 2020-10-30 18:00:00 2020-10-31 04:59:59 Outpatient nullFlavo r [facility] [place] [id number] Emre Jonas 2020-07-10 15:30:00 2020-07-11 04:59:59 Outpatient nullFlavo r [facility] [place] [id number] Emre Jonas 2020-01-11 16:30:00 2020-01-12 05:59:59 Outpatient nullFlavo r [facility] [place] [id number] Emre Jonas 2019-10-11 15:45:00 2019-10-12 04:59:59 Outpatient nullFlavo r [facility] [place] [id number] Emre Jonas 2019-10-11 15:45:00 2019-10-11 15:45:00 Ambulatory Pre-Reg nullFlavo r [facility] [place] [id number] Emre Jonas 2019-07-11 15:30:00 2019-07-12 04:59:59 Outpatient nullFlavo r [facility] [place] [id number] Emre Jonas 2019-04-12 17:45:00 2019-04-13 05:59:59 Outpatient nullFlavo r [facility] [place] [id number] Emre Jonas 2019-04-12 16:45:00 2019-04-12 16:45:00 Ambulatory Pre-Reg nullFlavo r [facility] [place] [id number] Emre Jonas 2018-12-22 20:45:00 2018-12-22 20:45:00 Ambulatory Pre-Reg nullFlavo r [facility] [place] [id number] Emre Jonas 2018-11-10 21:00:00 2018-11-11 04:59:59 Outpatient nullFlavo r [facility] [place] [id number] Emre Jonas 2018-11-03 20:00:00 2018-11-03 20:00:00 Ambulatory Pre-Reg nullFlavo r [facility] [place] [id number] Emre Jonas 2018-09-22 20:45:00 2018-09-23 04:59:59 Outpatient nullFlavo r [facility] [place] [id number] Emre Jonas 2018-08-18 14:00:00 2018-08-19 04:59:59 Outpatient nullFlavo r [facility] [place] [id number] Emre Jonas 2018-07-07 14:00:00 2018-07-08 04:59:59 Outpatient nullFlavo r [facility] [place] [id number] Emre ames [place] Results Test Description Test Time Test Comments Results Result Co mments Source [id number] 05:00:00* Test Item Value Reference Range Interpretation Comme nts MAGNESIUM (test code = MAG) 2.23 mg/dL 1.80-2.40 N CBC W/AUTO [id number] 04:54:00* Test Item Value Reference Range Interpretation Comme nts WHITE BLOOD CELL (test code = WBC) 9.2 x10 3/uL 4.5-11.0 N RED BLOOD CELL (test code = RBC) 3.27 x10 6/uL 4.00-5.60 L HEMOGLOBIN (test code = HGB) 9.5 g/dL 12.5-16.9 L HEMATOCRIT (test code = HCT) 29.7 % 37.5-50.7 L MEAN CELL VOLUME (test code = MCV) 90.8 fL 81.0-99.0 N MEAN CELL HGB (test code = MCH) 29.1 pg 27.0-33.0 N MEAN CELL HGB CONCETRATION (test code = MCHC) 32.0 g/dL 33.0-37.0 L RED CELL DISTRIBUTION WIDTH CV (test code = RDW) 14.7 % 11.5-14.5 H RED CELL DISTRIBUTION WIDTH SD (test code = RDW-SD) 49.4 fL 37.0-54.0 N PLATELET COUNT (test code = PLT) 468 x10 3/uL 150-400 H MEAN PLATELET VOLUME (test c ode = MPV) 10.0 fL 7.0-9.0 H NEUTROPHIL % (test code = NT%) 59.0 % 56.0-77.0 N IMMATURE GRANULOCYTE % (test code = IG%) 0.5 % 0.0-2.0 N LYMPHOCYTE % (test code = LY%) 24.6 % 14.0-32.0 N MONOCYTE % (test code = MO%) 11.8 % 4.8-9.0 H EOSINOPHIL % (test code = EO%) 3.4 % 0.3-3.7 N BASOPHIL % (test code = BA%) 0.7 % 0.0-2.0 N NUCLEATED RBC % (test code = NRBC%) 0.0 % 0-0 N NEUTROPHIL # (test code = NT#) 5.40 x10 3/uL 2.0-7.6 N IMMATURE GRANULOCYTE # (test code = IG#) 0.05 x10 3/uL 0.00-0.03 H LYMPHOCYTE # (test code = LY#) 2.25 x10 3/uL 1.0-3.8 N MONOCYTE # (test code = MO#) 1.08 x10 3/uL 0.1-0.8 H EOSINOPHIL # (test code = EO#) 0.31 x10 3/uL 0.0-0.2 H BASOPHIL # (test code = BA#) 0.06 x10 3/uL 0.0-0.2 N NUCLEATED RBC # (test code = NRBC#) 0.00 x10 3/uL 0.0-0.1 N MANUAL DIFF REQUIRED (test c ode = MDIFF) NO BASIC METABOLIC [id number] 08:19:00* Test Item Value Reference Range Interpretation Comme nts SODIUM (test code = NA) 138 mEq/L 134-147 N POTASSIUM (test code = K) 4.1 mEq/L 3.4-5.0 N CHLORIDE (test code = CL) 106 mEq/L 100-108 N CARBON DIOXIDE (test code = CO2) 24 mEq/l 21-33 N ANION GAP (test code = GAP) 12 0-20 N GLUCOSE (test code = GLU) 82 mg/dL 70-110 N BLOOD UREA NITROGEN (test code = BUN) 9 mg/dL 7-18 N GLOMERULAR FILTRATION RATE (test code = GFR) 93.0 80-90 H The Glomerular Filtration Rate is a calculated parameterbased on serum Creatinine, patient age and sex. GFR valuesless than 60 mL/min/1.73 square meters are indicative ofChronic Kidney Disease. Values less than 15 mL/min/1.73square meters indicate Kidney failure. The calculation forGFR is based on the CKD-EPI (2020) calculation. This formulais race indifferent and is the recommended formula for GFRby the National Kidney Foundation for Adults.The GFR will not calculate if the sex is unknown or if thepatient's age is <18 years. CREATININE (test code = CREAT) 0.9 mg/dL 0.6-1.3 N CALCIUM (test code = CA) 9.0 mg/dL 8.0-10.5 N [id number] 08:19:00* Test Item Value Reference Range Interpretation Comme nts MAGNESIUM (test code = MAG) 1.98 mg/dL 1.80-2.40 N CBC W/AUTO [id number] 05:00:00* Test Item Value Reference Range Interpretation Comme nts WHITE BLOOD CELL (test code = WBC) 9.4 x10 3/uL 4.5-11.0 N RED BLOOD CELL (test code = RBC) 3.26 x10 6/uL 4.00-5.60 L HEMOGLOBIN (test code = HGB) 9.6 g/dL 12.5-16.9 L HEMATOCRIT (test code = HCT) 29.6 % 37.5-50.7 L MEAN CELL VOLUME (test code = MCV) 90.8 fL 81.0-99.0 N MEAN CELL HGB (test code = MCH) 29.4 pg 27.0-33.0 N MEAN CELL HGB CONCETRATION (test code = MCHC) 32.4 g/dL 33.0-37.0 L RED CELL DISTRIBUTION WIDTH CV (test code = RDW) 14.7 % 11.5-14.5 H RED CELL DISTRIBUTION WIDTH SD (test code = RDW-SD) 49.1 fL 37.0-54.0 N PLATELET COUNT (test code = PLT) 531 x10 3/uL 150-400 H MEAN PLATELET VOLUME (test c ode = MPV) 10.1 fL 7.0-9.0 H NEUTROPHIL % (test code = NT%) 60.3 % 56.0-77.0 N IMMATURE GRANULOCYTE % (test code = IG%) 0.5 % 0.0-2.0 N LYMPHOCYTE % (test code = LY%) 23.2 % 14.0-32.0 N MONOCYTE % (test code = MO%) 12.2 % 4.8-9.0 H EOSINOPHIL % (test code = EO%) 3.3 % 0.3-3.7 N BASOPHIL % (test code = BA%) 0.5 % 0.0-2.0 N NUCLEATED RBC % (test code = NRBC%) 0.0 % 0-0 N NEUTROPHIL # (test code = NT#) 5.67 x10 3/uL 2.0-7.6 N IMMATURE GRANULOCYTE # (test code = IG#) 0.05 x10 3/uL 0.00-0.03 H LYMPHOCYTE # (test code = LY#) 2.18 x10 3/uL 1.0-3.8 N MONOCYTE # (test code = MO#) 1.15 x10 3/uL 0.1-0.8 H EOSINOPHIL # (test code = EO#) 0.31 x10 3/uL 0.0-0.2 H BASOPHIL # (test code = BA#) 0.05 x10 3/uL 0.0-0.2 N NUCLEATED RBC # (test code = NRBC#) 0.00 x10 3/uL 0.0-0.1 N MANUAL DIFF REQUIRED (test c ode = MDIFF) NO - XR CHEST 1 [id number] 00:00:00 [facility] 1955 Sex: M FAX:Ludin John [phone] Indian: St: ADM FAX: Albino Castillo MD [phone] FAX: Rosalind Malloy [phone] Name: MARY DALY [facility] : 1955 Age/S: 66/M [address] [place] [address] Unit #: [id number] Loc: G.3353 [place] [address] Phys: Rosalind Mendez Acct: [id number] DisDate: Status: ADM IN PHONE #: [phone] Exam Date: 08/24/2022 0651 FAX #: [phone] Reason: S/P CABG, R/O EFFUSION EXAMS: CPT CODE: [id number] XR CHEST 1 V 20214 PROCEDURE INFORMATION: Exam: XR Chest Exam date and time: 08/24/2022 5:54 AM Age: 66 years old Clinical indication: Other: S/P cabg, R/O effusion TECHNIQUE: Imaging protocol: Radiologic exam of the chest. Views: 1 view. COMPARISON: CRXR CHEST 1V 08/22/2022 7:21 AM FINDINGS: Tubes, [...] Coronary artery calcifications identified. Cardiac silhouette appears yrns-qv-vqmcfoures enlarged. Bones/joints: Sternotomy wires, hardware is demonstrated. Generalized bony degenerative changes. IMPRESSION: 1. Nakq-mx-mwczotkacz enlarged cardiac silhouette. 2. Mild interstitial pulmonary edema versus infiltrates. at 0734 Reported and signed by: Lor Stoner M.D. CC: Ludin Mccurdy MD; Albino Trore MD; Rosalind Mendez Technologist: RT Lenore(Katherine) Trnscrd Date/Time/By: 08/24/2022 (0734) : By: [email or web address] Orig Print D/T: S: 08/24/2022 (0742) PAGE 1 Signed ReportCBC W/AUTO [id number] 06:20:00* Test Item Value Reference Range Interpretation Comme nts WHITE BLOOD CELL (test code = WBC) 10.6 x10 3/uL 4.5-11.0 N RED BLOOD CELL (test code = RBC) 3.26 x10 6/uL 4.00-5.60 L HEMOGLOBIN (test code = HGB) 9.6 g/dL 12.5-16.9 L HEMATOCRIT (test code = HCT) 29.4 % 37.5-50.7 L MEAN CELL VOLUME (test code = MCV) 90.2 fL 81.0-99.0 N MEAN CELL HGB (test code = MCH) 29.4 pg 27.0-33.0 N MEAN CELL HGB CONCETRATION (test code = MCHC) 32.7 g/dL 33.0-37.0 L RED CELL DISTRIBUTION WIDTH CV (test code = RDW) 14.7 % 11.5-14.5 H RED CELL DISTRIBUTION WIDTH SD (test code = RDW-SD) 49.1 fL 37.0-54.0 N PLATELET COUNT (test code = PLT) 568 x10 3/uL 150-400 H MEAN PLATELET VOLUME (test c ode = MPV) 9.7 fL 7.0-9.0 H NEUTROPHIL % (test code = NT%) 64.2 % 56.0-77.0 N IMMATURE GRANULOCYTE % (test code = IG%) 0.6 % 0.0-2.0 N LYMPHOCYTE % (test code = LY%) 21.3 % 14.0-32.0 N MONOCYTE % (test code = MO%) 11.0 % 4.8-9.0 H EOSINOPHIL % (test code = EO%) 2.4 % 0.3-3.7 N BASOPHIL % (test code = BA%) 0.5 % 0.0-2.0 N NUCLEATED RBC % (test code = NRBC%) 0.0 % 0-0 N NEUTROPHIL # (test code = NT#) 6.83 x10 3/uL 2.0-7.6 N IMMATURE GRANULOCYTE # (test code = IG#) 0.06 x10 3/uL 0.00-0.03 H LYMPHOCYTE # (test code = LY#) 2.26 x10 3/uL 1.0-3.8 N MONOCYTE # (test code = MO#) 1.17 x10 3/uL 0.1-0.8 H EOSINOPHIL # (test code = EO#) 0.26 x10 3/uL 0.0-0.2 H BASOPHIL # (test code = BA#) 0.05 x10 3/uL 0.0-0.2 N NUCLEATED RBC # (test code = NRBC#) 0.00 x10 3/uL 0.0-0.1 N MANUAL DIFF REQUIRED (test c ode = MDIFF) NO BASIC METABOLIC [id number] 05:56:00* Test Item Value Reference Range Interpretation Comme nts SODIUM (test code = NA) 137 mEq/L 134-147 N POTASSIUM (test code = K) 4.0 mEq/L 3.4-5.0 N CHLORIDE (test code = CL) 106 mEq/L 100-108 N CARBON DIOXIDE (test code = CO2) 27 mEq/l 21-33 N ANION GAP (test code = GAP) 8 0-20 N GLUCOSE (test code = GLU) 93 mg/dL 70-110 N BLOOD UREA NITROGEN (test code = BUN) 10 mg/dL 7-18 N GLOMERULAR FILTRATION RATE (test code = GFR) 96.4 80-90 H The Glomerular Filtration Rate is a calculated parameterbased on serum Creatinine, patient age and sex. GFR valuesless than 60 mL/min/1.73 square meters are indicative ofChronic Kidney Disease. Values less than 15 mL/min/1.73square meters indicate Kidney failure. The calculation forGFR is based on the CKD-EPI (2020) calculation. This formulais race indifferent and is the recommended formula for GFRby the National Kidney Foundation for Adults.The GFR will not calculate if the sex is unknown or if thepatient's age is <18 years. CREATININE (test code = CREAT) 0.8 mg/dL 0.6-1.3 N CALCIUM (test code = CA) 8.7 mg/dL 8.0-10.5 N [id number] 05:56:00* Test Item Value Reference Range Interpretation Comme nts MAGNESIUM (test code = MAG) 1.93 mg/dL 1.80-2.40 N CBC W/AUTO [id number] 04:28:00* Test Item Value Reference Range Interpretation Comme nts WHITE BLOOD CELL (test code = WBC) 12.7 x10 3/uL 4.5-11.0 H RED BLOOD CELL (test code = RBC) 3.33 x10 6/uL 4.00-5.60 L HEMOGLOBIN (test code = HGB) 9.6 g/dL 12.5-16.9 L HEMATOCRIT (test code = HCT) 30.4 % 37.5-50.7 L MEAN CELL VOLUME (test code = MCV) 91.3 fL 81.0-99.0 N MEAN CELL HGB (test code = MCH) 28.8 pg 27.0-33.0 N MEAN CELL HGB CONCETRATION (test code = MCHC) 31.6 g/dL 33.0-37.0 L RED CELL DISTRIBUTION WIDTH CV (test code = RDW) 14.9 % 11.5-14.5 H RED CELL DISTRIBUTION WIDTH SD (test code = RDW-SD) 50.0 fL 37.0-54.0 N PLATELET COUNT (test code = PLT) 653 x10 3/uL 150-400 H MEAN PLATELET VOLUME (test c ode = MPV) 9.9 fL 7.0-9.0 H NEUTROPHIL % (test code = NT%) 68.8 % 56.0-77.0 N IMMATURE GRANULOCYTE % (test code = IG%) 0.7 % 0.0-2.0 N LYMPHOCYTE % (test code = LY%) 18.1 % 14.0-32.0 N MONOCYTE % (test code = MO%) 9.7 % 4.8-9.0 H EOSINOPHIL % (test code = EO%) 2.4 % 0.3-3.7 N BASOPHIL % (test code = BA%) 0.3 % 0.0-2.0 N NUCLEATED RBC % (test code = NRBC%) 0.0 % 0-0 N NEUTROPHIL # (test code = NT#) 8.74 x10 3/uL 2.0-7.6 H IMMATURE GRANULOCYTE # (test code = IG#) 0.09 x10 3/uL 0.00-0.03 H LYMPHOCYTE # (test code = LY#) 2.30 x10 3/uL 1.0-3.8 N MONOCYTE # (test code = MO#) 1.23 x10 3/uL 0.1-0.8 H EOSINOPHIL # (test code = EO#) 0.31 x10 3/uL 0.0-0.2 H BASOPHIL # (test code = BA#) 0.04 x10 3/uL 0.0-0.2 N NUCLEATED RBC # (test code = NRBC#) 0.00 x10 3/uL 0.0-0.1 N MANUAL DIFF REQUIRED (test c ode = MDIFF) NO BASIC METABOLIC [id number] 04:12:00* Test Item Value Reference Range Interpretation Comme nts SODIUM (test code = NA) 139 mEq/L 134-147 N POTASSIUM (test code = K) 4.2 mEq/L 3.4-5.0 N CHLORIDE (test code = CL) 106 mEq/L 100-108 N CARBON DIOXIDE (test code = CO2) 24 mEq/l 21-33 N ANION GAP (test code = GAP) 13 0-20 N GLUCOSE (test code = GLU) 97 mg/dL 70-110 N BLOOD UREA NITROGEN (test code = BUN) 7 mg/dL 7-18 N GLOMERULAR FILTRATION RATE (test code = GFR) 96.4 80-90 H The Glomerular Filtration Rate is a calculated parameterbased on serum Creatinine, patient age and sex. GFR valuesless than 60 mL/min/1.73 square meters are indicative ofChronic Kidney Disease. Values less than 15 mL/min/1.73square meters indicate Kidney failure. The calculation forGFR is based on the CKD-EPI (2020) calculation. This formulais race indifferent and is the recommended formula for GFRby the National Kidney Foundation for Adults.The GFR will not calculate if the sex is unknown or if thepatient's age is <18 years. CREATININE (test code = CREAT) 0.8 mg/dL 0.6-1.3 N CALCIUM (test code = CA) 9.1 mg/dL 8.0-10.5 N [id number] 04:12:00* Test Item Value Reference Range Interpretation Comme nts MAGNESIUM (test code = MAG) 1.98 mg/dL 1.80-2.40 N - XR CHEST 1 [id number] 00:00:00 [facility] ALEAH BLACKSTONEName: MARY DALY : 1955 Sex: M FAX:Ludin John [phone] [place]: St: ADM FAX: Albino Castillo MD [phone] ------- Name: MARY DALY [facility] : 1955 Age/S: 66/M [address] [place] [address] Blvd Unit #: [id number] Loc: G.3353 [place] [address] Phys: Ludin Mccurdy MD Acct: [id number] Dis Date: Status: ADM IN PHONE #: [phone] Exam Date: 08/22/2022 0803 FAX #: [phone] Reason: Cardiac Surgery Post Op EXAMS: CPT CODE: [id number] XR CHEST 1 V 22620 PROCEDURE INFORMATION: Exam: XR Chest Exam date [...] Ludin Mccurdy MD; Albino Torre MD Technologist: CHINTAN Pearl) Trnscrd Date/Time/By: 08/22/2022 (820) : By: [email or web address] Orig Print D/T: S: 08/22/2022 (820) PAGE 1 Signed ReportBASIC METABOLIC PANEL 2022-08-21 04:57:00* Test Item Value Reference Range Interpretation Comme nts SODIUM (test code = NA) 138 mEq/L 134-147 N POTASSIUM (test code = K) 4.2 mEq/L 3.4-5.0 N CHLORIDE (test code = CL) 106 mEq/L 100-108 N CARBON DIOXIDE (test code = CO2) 26 mEq/l 21-33 N ANION GAP (test code = GAP) 10 0-20 N GLUCOSE (test code = GLU) 100 mg/dL 70-110 N BLOOD UREA NITROGEN (test code = BUN) 7 mg/dL 7-18 N GLOMERULAR FILTRATION RATE (test code = GFR) 96.4 80-90 H The Glomerular Filtration Rate is a calculated parameterbased on serum Creatinine, patient age and sex. GFR valuesless than 60 mL/min/1.73 square meters are indicative ofChronic Kidney Disease. Values less than 15 mL/min/1.73square meters indicate Kidney failure. The calculation forGFR is based on the CKD-EPI (2020) calculation. This formulais race indifferent and is the recommended formula for GFRby the National Kidney Foundation for Adults.The GFR will not calculate if the sex is unknown or if thepatient's age is <18 years. CREATININE (test code = CREAT) 0.8 mg/dL 0.6-1.3 N CALCIUM (test code = CA) 8.8 mg/dL 8.0-10.5 N [id number] 04:57:00* Test Item Value Reference Range Interpretation Comme nts MAGNESIUM (test code = MAG) 2.07 mg/dL 1.80-2.40 N CBC W/AUTO [id number] 04:31:00* Test Item Value Reference Range Interpretation Comme nts WHITE BLOOD CELL (test code = WBC) 10.5 x10 3/uL 4.5-11.0 N RED BLOOD CELL (test code = RBC) 3.25 x10 6/uL 4.00-5.60 L HEMOGLOBIN (test code = HGB) 9.7 g/dL 12.5-16.9 L HEMATOCRIT (test code = HCT) 29.8 % 37.5-50.7 L MEAN CELL VOLUME (test code = MCV) 91.7 fL 81.0-99.0 N MEAN CELL HGB (test code = MCH) 29.8 pg 27.0-33.0 N MEAN CELL HGB CONCETRATION (test code = MCHC) 32.6 g/dL 33.0-37.0 L RED CELL DISTRIBUTION WIDTH CV (test code = RDW) 14.8 % 11.5-14.5 H RED CELL DISTRIBUTION WIDTH SD (test code = RDW-SD) 49.6 fL 37.0-54.0 N PLATELET COUNT (test code = PLT) 630 x10 3/uL 150-400 H MEAN PLATELET VOLUME (test c ode = MPV) 9.7 fL 7.0-9.0 H NEUTROPHIL % (test code = NT%) 64.5 % 56.0-77.0 N IMMATURE GRANULOCYTE % (test code = IG%) 0.8 % 0.0-2.0 N LYMPHOCYTE % (test code = LY%) 20.2 % 14.0-32.0 N MONOCYTE % (test code = MO%) 10.0 % 4.8-9.0 H EOSINOPHIL % (test code = EO%) 3.8 % 0.3-3.7 H BASOPHIL % (test code = BA%) 0.7 % 0.0-2.0 N NUCLEATED RBC % (test code = NRBC%) 0.0 % 0-0 N NEUTROPHIL # (test code = NT#) 6.75 x10 3/uL 2.0-7.6 N IMMATURE GRANULOCYTE # (test code = IG#) 0.08 x10 3/uL 0.00-0.03 H LYMPHOCYTE # (test code = LY#) 2.11 x10 3/uL 1.0-3.8 N MONOCYTE # (test code = MO#) 1.05 x10 3/uL 0.1-0.8 H EOSINOPHIL # (test code = EO#) 0.40 x10 3/uL 0.0-0.2 H BASOPHIL # (test code = BA#) 0.07 x10 3/uL 0.0-0.2 N NUCLEATED RBC # (test code = NRBC#) 0.00 x10 3/uL 0.0-0.1 N MANUAL DIFF REQUIRED (test c ode = MDIFF) NO - XR CHEST 1 [id number] 00:00:00 [facility] 1955 Sex: M FAX:Ludin John [phone] Indian: St: ADM FAX: Albino Castillo MD [phone] ------- Name: MALIKAMARY [facility] : 1955 Age/S: 66/M [address] [place] [address] Bl Unit #: [id number] Loc: G.3353 [place] [address] Phys: Ludin Mccurdy MD Acct: [id number] Dis Date: Status: ADM IN PHONE #: [phone] Exam Date: 08/21/2022814 FAX #: [phone] Reason: Cardiac Surgery Post Op EXAMS: CPT CODE: [id number] XR CHEST 1 V 71797 PROCEDURE INFORMATION: Exam: XR Chest Exam date [...] Pleural spaces: Unremarkable. No pleural effusion. No pneumothorax.Heart/Mediastinum: The cardiac silhouette is enlarged. Previous midline sternotomy. Bones/joints: Unremarkable. IMPRESSION: No acute cardiopulmonary findings. at 0835 Reported and signed by: Krishna Santiago M.D. CC: Ludin Mccurdy MD; Albino Torre MD Technologist: Issa Bey, RT(R); Mureil Jacobs RT(R) TrnscrdDate/Time/By: 08/21/2022 (0835) : By: [email or web address] Orig Print D/T: S: 08/21/2022 (0835) PAGE 1 Signed ReportCBC W/AUTO [id number] 07:50:00* Test Item Value Reference Range Interpretation Comme nts WHITE BLOOD CELL (test code = WBC) 10.5 x10 3/uL 4.5-11.0 N RED BLOOD CELL (test code = RBC) 3.38 x10 6/uL 4.00-5.60 L HEMOGLOBIN (test code = HGB) 10.0 g/dL 12.5-16.9 L HEMATOCRIT (test code = HCT) 30.7 % 37.5-50.7 L MEAN CELL VOLUME (test code = MCV) 90.8 fL 81.0-99.0 N MEAN CELL HGB (test code = MCH) 29.6 pg 27.0-33.0 N MEAN CELL HGB CONCETRATION (test code = MCHC) 32.6 g/dL 33.0-37.0 L RED CELL DISTRIBUTION WIDTH CV (test code = RDW) 15.1 % 11.5-14.5 H RED CELL DISTRIBUTION WIDTH SD (test code = RDW-SD) 50.4 fL 37.0-54.0 N PLATELET COUNT (test code = PLT) 710 x10 3/uL 150-400 H MEAN PLATELET VOLUME (test c ode = MPV) 10.0 fL 7.0-9.0 H NEUTROPHIL % (test code = NT%) 60.1 % 56.0-77.0 N IMMATURE GRANULOCYTE % (test code = IG%) 0.8 % 0.0-2.0 N LYMPHOCYTE % (test code = LY%) 23.0 % 14.0-32.0 N MONOCYTE % (test code = MO%) 12.2 % 4.8-9.0 H EOSINOPHIL % (test code = EO%) 3.3 % 0.3-3.7 N BASOPHIL % (test code = BA%) 0.6 % 0.0-2.0 N NUCLEATED RBC % (test code = NRBC%) 0.0 % 0-0 N NEUTROPHIL # (test code = NT#) 6.29 x10 3/uL 2.0-7.6 N IMMATURE GRANULOCYTE # (test code = IG#) 0.08 x10 3/uL 0.00-0.03 H LYMPHOCYTE # (test code = LY#) 2.41 x10 3/uL 1.0-3.8 N MONOCYTE # (test code = MO#) 1.28 x10 3/uL 0.1-0.8 H EOSINOPHIL # (test code = EO#) 0.35 x10 3/uL 0.0-0.2 H BASOPHIL # (test code = BA#) 0.06 x10 3/uL 0.0-0.2 N NUCLEATED RBC # (test code = NRBC#) 0.00 x10 3/uL 0.0-0.1 N MANUAL DIFF REQUIRED (test c ode = MDIFF) NO BASIC METABOLIC [id number] 07:41:00* Test Item Value Reference Range Interpretation Comme nts SODIUM (test code = NA) 138 mEq/L 134-147 N POTASSIUM (test code = K) 4.2 mEq/L 3.4-5.0 N CHLORIDE (test code = CL) 104 mEq/L 100-108 N CARBON DIOXIDE (test code = CO2) 25 mEq/l 21-33 N ANION GAP (test code = GAP) 14 0-20 N GLUCOSE (test code = GLU) 103 mg/dL 70-110 N BLOOD UREA NITROGEN (test code = BUN) 8 mg/dL 7-18 N GLOMERULAR FILTRATION RATE (test code = GFR) 100.4 80-90 H The Glomerular Filtration Rate is a calculated parameterbased on serum Creatinine, patient age and sex. GFR valuesless than 60 mL/min/1.73 square meters are indicative ofChronic Kidney Disease. Values less than 15 mL/min/1.73square meters indicate Kidney failure. The calculation forGFR is based on the CKD-EPI (202) calculation. This formulais race indifferent and is the recommended formula for GFRby the National Kidney Foundation for Adults.The GFR will not calculate if the sex is unknown or if thepatient's age is <18 years. CREATININE (test code = CREAT) 0.7 mg/dL 0.6-1.3 N CALCIUM (test code = CA) 9.3 mg/dL 8.0-10.5 N [id number] 07:41:00* Test Item Value Reference Range Interpretation Comme nts MAGNESIUM (test code = MAG) 1.90 mg/dL 1.80-2.40 N - XR CHEST 1 [id number] 00:00:00 [facility] 1955 Sex: M FAX:Ludin John [phone] Indian: St: [facility] FAX: Albino Castillo MD [phone] ------- Name: MARY DALY : 1955 Age/S: 66/M [address] [place] [address] Bl Unit #: [id number] Loc: [place] [address] Phys: Ludin Mccurdy MD Acct: [id number] Dis Date: Status: ADM IN PHONE #: [phone] Exam Date: 08/20/2022600 FAX #: [phone] Reason: Cardiac Surgery Post Op EXAMS: CPT CODE: [id number] XR CHEST 1 V 82173 PROCEDURE INFORMATION: Exam: XR Chest Exam date and time: 08/20/2022 6:01 AM Age: 66 years old Clinical indication: Other: Cardiac surgery post op TECHNIQUE: Imaging protocol: Radiologic exam of the chest. Views: 1 view. COMPARISON: CR XR CHEST 1V 08/19/2022 8:21 AM FINDINGS: Lungs: The bilateral lung opacities are grossly stable. Pleural spaces: Stable small left pleural effusion. No definite pneumothorax. Heart/Mediastinum: The enlarged heart size is stable. Vasculature: Atherosclerotic calcifications. Bones/joints: Stable. Median sternotomy wires. IMPRESSION: Grossly stable exam. at 0758 Reported and signed by: Allan Diana M.D. CC: Ludin Mccurdy MD; Albino Torre MD Technologist: Belem Stark, RT(R) Trnscrd Date/Time/By: 08/20/2022 (0758) : By: [email or web address] Orig Print D/T: S: 08/20/2022 (0758) PAGE 1 Signed ReportBASIC METABOLIC [id number] 05:17:00* Test Item Value Reference Range Interpretation Comme nts SODIUM (test code = NA) 137 mEq/L 134-147 N POTASSIUM (test code = K) 4.0 mEq/L 3.4-5.0 N CHLORIDE (test code = CL) 105 mEq/L 100-108 N CARBON DIOXIDE (test code = CO2) 25 mEq/l 21-33 N ANION GAP (test code = GAP) 11 0-20 N GLUCOSE (test code = GLU) 100 mg/dL 70-110 N BLOOD UREA NITROGEN (test code = BUN) 9 mg/dL 7-18 N GLOMERULAR FILTRATION RATE (test code = GFR) 96.4 80-90 H The Glomerular Filtration Rate is a calculated parameterbased on serum Creatinine, patient age and sex. GFR valuesless than 60 mL/min/1.73 square meters are indicative ofChronic Kidney Disease. Values less than 15 mL/min/1.73square meters indicate Kidney failure. The calculation forGFR is based on the CKD-EPI (2020) calculation. This formulais race indifferent and is the recommended formula for GFRby the National Kidney Foundation for Adults.The GFR will not calculate if the sex is unknown or if thepatient's age is <18 years. CREATININE (test code = CREAT) 0.8 mg/dL 0.6-1.3 N CALCIUM (test code = CA) 8.7 mg/dL 8.0-10.5 N [id number] 05:17:00* Test Item Value Reference Range Interpretation Comme nts MAGNESIUM (test code = MAG) 1.92 mg/dL 1.80-2.40 N CBC W/AUTO [id number] 05:03:00* Test Item Value Reference Range Interpretation Comme nts WHITE BLOOD CELL (test code = WBC) 9.3 x10 3/uL 4.5-11.0 N RED BLOOD CELL (test code = RBC) 3.10 x10 6/uL 4.00-5.60 L HEMOGLOBIN (test code = HGB) 9.2 g/dL 12.5-16.9 L HEMATOCRIT (test code = HCT) 27.8 % 37.5-50.7 L MEAN CELL VOLUME (test code = MCV) 89.7 fL 81.0-99.0 MEAN CELL HGB (test code = MCH) 29.7 pg 27.0-33.0 N MEAN CELL HGB CONCETRATION (test code = MCHC) 33.1 g/dL 33.0-37.0 N RED CELL DISTRIBUTION WIDTH CV (test code = RDW) 15.4 % 11.5-14.5 H RED CELL DISTRIBUTION WIDTH SD (test code = RDW-SD) 50.6 fL 37.0-54.0 N PLATELET COUNT (test code = PLT) 686 x10 3/uL 150-400 H MEAN PLATELET VOLUME (test c ode = MPV) 9.9 fL 7.0-9.0 H NEUTROPHIL % (test code = NT%) 61.1 % 56.0-77.0 N IMMATURE GRANULOCYTE % (test code = IG%) 0.8 % 0.0-2.0 N LYMPHOCYTE % (test code = LY%) 23.0 % 14.0-32.0 N MONOCYTE % (test code = MO%) 12.5 % 4.8-9.0 H EOSINOPHIL % (test code = EO%) 2.2 % 0.3-3.7 N BASOPHIL % (test code = BA%) 0.4 % 0.0-2.0 N NUCLEATED RBC % (test code = NRBC%) 0.0 % 0-0 N NEUTROPHIL # (test code = NT#) 5.67 x10 3/uL 2.0-7.6 N IMMATURE GRANULOCYTE # (test code = IG#) 0.07 x10 3/uL 0.00-0.03 H LYMPHOCYTE # (test code = LY#) 2.13 x10 3/uL 1.0-3.8 N MONOCYTE # (test code = MO#) 1.16 x10 3/uL 0.1-0.8 H EOSINOPHIL # (test code = EO#) 0.20 x10 3/uL 0.0-0.2 N BASOPHIL # (test code = BA#) 0.04 x10 3/uL 0.0-0.2 N NUCLEATED RBC # (test code = NRBC#) 0.00 x10 3/uL 0.0-0.1 N MANUAL DIFF REQUIRED (test c ode = MDIFF) NO - XR CHEST 1 [id number] 00:00:00 [facility] : 1955 Sex: M FAX:Ludin John [phone] Indian: St: ADM FAX: Albino Castillo MD [phone] ------- Name: MARY DALY [facility] : 1955 Age/S: 66/M [address] [place] [address] Unit #: [id number] Loc: G.3353 [place] [address] Phys: Ludin Mccurdy MD Acct: [id number] Dis Date: Status: ADM IN PHONE #: [phone] Exam Date: 08/19/2022 0857 FAX #: [phone] Reason: Cardiac Surgery Post Op EXAMS: CPT CODE: [id number] XR CHEST 1 V 61986 PROCEDURE INFORMATION: Exam: XR Chest Exam date [...] spaces: See "Lungs" finding. Heart/Mediastinum: Stable cardiomegaly. Bones/j oints: Median sternotomy wires. No acute bony abnormality. IMPRESSION: Stable left dependent atelectasis and small left pleural fluid. Stable cardiomediastinal silhouette. at 1102 Reported and signed by: Maik Sandra M.D. CC: Ludin Mccurdy MD; Albino Torre MD Technologist: RT Margarita(Katherine) Trnscrd Date/Time/By: 08/19/2022 (1101) : By: [email or web address] Orig Print D/T: S: 08/19/2022 (7232) PAGE 1 Signed ReportBASIC METABOLIC [id number] 04:58:00* Test Item Value Reference Range Interpretation Comme nts SODIUM (test code = NA) 138 mEq/L 134-147 N POTASSIUM (test code = K) 3.8 mEq/L 3.4-5.0 N CHLORIDE (test code = CL) 107 mEq/L 100-108 N CARBON DIOXIDE (test code = CO2) 25 mEq/l 21-33 N ANION GAP (test code = GAP) 10 0-20 N GLUCOSE (test code = GLU) 103 mg/dL 70-110 N BLOOD UREA NITROGEN (test code = BUN) 11 mg/dL 7-18 N GLOMERULAR FILTRATION RATE (test code = GFR) 96.4 80-90 H The Glomerular Filtration Rate is a calculated parameterbased on serum Creatinine, patient age and sex. GFR valuesless than 60 mL/min/1.73 square meters are indicative ofChronic Kidney Disease. Values less than 15 mL/min/1.73square meters indicate Kidney failure. The calculation forGFR is based on the CKD-EPI (2020) calculation. This formulais race indifferent and is the recommended formula for GFRby the National Kidney Foundation for Adults.The GFR will not calculate if the sex is unknown or if thepatient's age is <18 years. CREATININE (test code = CREAT) 0.8 mg/dL 0.6-1.3 N CALCIUM (test code = CA) 8.2 mg/dL 8.0-10.5 N [id number] 04:58:00* Test Item Value Reference Range Interpretation Comme nts MAGNESIUM (test code = MAG) 2.06 mg/dL 1.80-2.40 N CBC W/AUTO [id number] 04:42:00* Test Item Value Reference Range Interpretation Comme nts WHITE BLOOD CELL (test code = WBC) 9.6 x10 3/uL 4.5-11.0 N RED BLOOD CELL (test code = RBC) 3.01 x10 6/uL 4.00-5.60 L HEMOGLOBIN (test code = HGB) 8.8 g/dL 12.5-16.9 L HEMATOCRIT (test code = HCT) 28.3 % 37.5-50.7 L MEAN CELL VOLUME (test code = MCV) 94.0 fL 81.0-99.0 MEAN CELL HGB (test code = MCH) 29.2 pg 27.0-33.0 N MEAN CELL HGB CONCETRATION (test code = MCHC) 31.1 g/dL 33.0-37.0 L RED CELL DISTRIBUTION WIDTH CV (test code = RDW) 16.0 % 11.5-14.5 H RED CELL DISTRIBUTION WIDTH SD (test code = RDW-SD) 54.8 fL 37.0-54.0 H PLATELET COUNT (test code = PLT) 591 x10 3/uL 150-400 H MEAN PLATELET VOLUME (test c ode = MPV) 10.2 fL 7.0-9.0 H NEUTROPHIL % (test code = NT%) 73.0 % 56.0-77.0 N IMMATURE GRANULOCYTE % (test code = IG%) 0.5 % 0.0-2.0 N LYMPHOCYTE % (test code = LY%) 17.1 % 14.0-32.0 N MONOCYTE % (test code = MO%) 8.3 % 4.8-9.0 N EOSINOPHIL % (test code = EO%) 0.9 % 0.3-3.7 N BASOPHIL % (test code = BA%) 0.2 % 0.0-2.0 N NUCLEATED RBC % (test code = NRBC%) 0.0 % 0-0 N NEUTROPHIL # (test code = NT#) 7.00 x10 3/uL 2.0-7.6 N IMMATURE GRANULOCYTE # (test code = IG#) 0.05 x10 3/uL 0.00-0.03 H LYMPHOCYTE # (test code = LY#) 1.64 x10 3/uL 1.0-3.8 N MONOCYTE # (test code = MO#) 0.80 x10 3/uL 0.1-0.8 N EOSINOPHIL # (test code = EO#) 0.09 x10 3/uL 0.0-0.2 N BASOPHIL # (test code = BA#) 0.02 x10 3/uL 0.0-0.2 N NUCLEATED RBC # (test code = NRBC#) 0.00 x10 3/uL 0.0-0.1 N MANUAL DIFF REQUIRED (test c ode = VERONIKA) NO - XR CHEST 1 [id number] 00:00:00 [facility] 1955 Sex: M FAX:Ludin John [phone] Indian: St: ADM FAX: Albino Castillo MD [phone] ------- Name: MARY DALY [facility] : 1955 Age/S: 66/M [address] [place] [address] Blvd Unit #: [id number] Loc: G.3311 [place] [address] Phys: Ludin Mccurdy MD Acct: [id number] Dis Date: Status: ADM IN PHONE #: [phone] Exam Date: 08/18/2022 0551 FAX #: [phone] Reason: Cardiac Surgery Post Op EXAMS: CPT CODE: [id number] XR CHEST 1 V 42244 PROCEDURE INFORMATION: Exam: XR Chest Exam date [...] Colby Sawyer M.D. CC: Ludin Mccurdy MD; Santo WATTS Technologist: RT Jennifer(R) Trnscrd Date/Time/By: 08/18/2022 (829) : By: [email or web address] Orig Print D/T: S: 08/18/2022 (829) PAGE 1 Signed ReportBASIC METABOLIC [id number] 07:54:00* Test Item Value Reference Range Interpretation Comme nts SODIUM (test code = NA) 137 mEq/L 134-147 N POTASSIUM (test code = K) 4.0 mEq/L 3.4-5.0 N CHLORIDE (test code = CL) 105 mEq/L 100-108 N CARBON DIOXIDE (test code = CO2) 24 mEq/l 21-33 N ANION GAP (test code = GAP) 12 0-20 N GLUCOSE (test code = GLU) 119 mg/dL 70-110 H BLOOD UREA NITROGEN (test code = BUN) 13 mg/dL 7-18 N GLOMERULAR FILTRATION RATE (test code = GFR) 96.4 80-90 H The Glomerular Filtration Rate is a calculated parameterbased on serum Creatinine, patient age and sex. GFR valuesless than 60 mL/min/1.73 square meters are indicative ofChronic Kidney Disease. Values less than 15 mL/min/1.73square meters indicate Kidney failure. The calculation forGFR is based on the CKD-EPI (2020) calculation. This formulais race indifferent and is the recommended formula for GFRby the National Kidney Foundation for Adults.The GFR will not calculate if the sex is unknown or if thepatient's age is <18 years. CREATININE (test code = CREAT) 0.8 mg/dL 0.6-1.3 N CALCIUM (test code = CA) 8.5 mg/dL 8.0-10.5 N [id number] 07:54:00* Test Item Value Reference Range Interpretation Comme nts MAGNESIUM (test code = MAG) 2.32 mg/dL 1.80-2.40 CBC W/AUTO [id number] 06:58:00* Test Item Value Reference Range Interpretation Comme nts WHITE BLOOD CELL (test code = WBC) 12.8 x10 3/uL 4.5-11.0 H RED BLOOD CELL (test code = RBC) 2.91 x10 6/uL 4.00-5.60 L HEMOGLOBIN (test code = HGB) 8.6 g/dL 12.5-16.9 L HEMATOCRIT (test code = HCT) 26.4 % 37.5-50.7 L MEAN CELL VOLUME (test code = MCV) 90.7 fL 81.0-99.0 N MEAN CELL HGB (test code = MCH) 29.6 pg 27.0-33.0 N MEAN CELL HGB CONCETRATION (test code = MCHC) 32.6 g/dL 33.0-37.0 L RED CELL DISTRIBUTION WIDTH CV (test code = RDW) 15.7 % 11.5-14.5 H RED CELL DISTRIBUTION WIDTH SD (test code = RDW-SD) 52.6 fL 37.0-54.0 N PLATELET COUNT (test code = PLT) 575 x10 3/uL 150-400 H MEAN PLATELET VOLUME (test code = MPV) 10.1 fL 7.0-9.0 H NEUTROPHIL % (test code = NT%) 81.5 % 56.0-77.0 H IMMATURE GRANULOCYTE % (test code = IG%) 0.4 % 0.0-2.0 N LYMPHOCYTE % (test code = LY%) 9.1 % 14.0-32.0 L MONOCYTE % (test code = MO%) 8.8 % 4.8-9.0 N EOSINOPHIL % (test code = EO%) 0.0 % 0.3-3.7 L BASOPHIL % (test code = BA%) 0.2 % 0.0-2.0 N NUCLEATED RBC % (test code = NRBC%) 0.0 % 0-0 N NEUTROPHIL # (test code = NT#) 10.43 x10 3/uL 2.0-7.6 H IMMATURE GRANULOCYTE # (test code = IG#) 0.05 x10 3/uL 0.00-0.03 H LYMPHOCYTE # (test code = LY#) 1.16 x10 3/uL 1.0-3.8 N MONOCYTE # (test code = MO#) 1.12 x10 3/uL 0.1-0.8 H EOSINOPHIL # (test code = EO#) 0.00 x10 3/uL 0.0-0.2 N BASOPHIL # (test code = BA#) 0.02 x10 3/uL 0.0-0.2 N NUCLEATED RBC # (test code = NRBC#) 0.00 x10 3/uL 0.0-0.1 N MANUAL DIFF REQUIRED (test code = MDIFF) NO - XR CHEST 1 [id number] 00:00:00 [facility] 1955 Sex: M FAX: Ludin John [phone] Indian: St: ADM FAX: Albino Castillo MD [phone] ------ Name: MARY DALY [facility] : 1955 Age/S: 66/M [address] [place] [address] Blvd Unit #: [id number] Loc: G.3311 [place] [address] Phys: Ludin Mccurdy MD Acct: [id number] Dis Date: Status: ADM IN PHONE #: [phone] Exam Date: 08/17/2022658 FAX #: [phone] Reason: Cardiac Surgery Post Op EXAMS: CPT CODE: [id number] XR CHEST 1 V 99631 PROCEDURE INFORMATION: Exam: XR Chest Exam date [...] pneumothorax. Heart/Mediastinum: Stable enlarged heart size. Vasculature: Atherosclerotic calcifications. Bones/joints: Stable. Median sternotomy wires. IMPRESSION: 1. Mildly improved left mid-lower lung field opacities. 2. Right perihilar interstitial opacities may be slightly increased. at 0803 Reported and signed by: Allan Diana M.D. CC: Ludin Mccurdy MD; Albino Torre MD Technologist: William Bashir RT(R) Trnscrd Date/Time/By: 08/17/2022 (802) : By: [email or web address] Orig Print D/T: S: 08/17/2022 (08) PAGE 1 Signed ReportCBC W/AUTO DIFF 2022-08-16 22:58:00* Test Item Value Reference Range Interpretation Comme nts WHITE BLOOD CELL (test code = WBC) 13.0 x10 3/uL 4.5-11.0 H RED BLOOD CELL (test code = RBC) 2.88 x10 6/uL 4.00-5.60 L HEMOGLOBIN (test code = HGB) 8.6 g/dL 12.5-16.9 L HEMATOCRIT (test code = HCT) 26.3 % 37.5-50.7 L MEAN CELL VOLUME (test code = MCV) 91.3 fL 81.0-99.0 N MEAN CELL HGB (test code = MCH) 29.9 pg 27.0-33.0 N MEAN CELL HGB CONCETRATION (test code = MCHC) 32.7 g/dL 33.0-37.0 L RED CELL DISTRIBUTION WIDTH CV (test code = RDW) 15.2 % 11.5-14.5 H RED CELL DISTRIBUTION WIDTH SD (test code = RDW-SD) 51.2 fL 37.0-54.0 N PLATELET COUNT (test code = PLT) 564 x10 3/uL 150-400 H MEAN PLATELET VOLUME (test code = MPV) 10.1 fL 7.0-9.0 H NEUTROPHIL % (test code = NT%) 84.7 % 56.0-77.0 H IMMATURE GRANULOCYTE % (test code = IG%) 0.6 % 0.0-2.0 N LYMPHOCYTE % (test code = LY%) 7.1 % 14.0-32.0 L MONOCYTE % (test code = MO%) 7.5 % 4.8-9.0 N EOSINOPHIL % (test code = EO%) 0.0 % 0.3-3.7 L BASOPHIL % (test code = BA%) 0.1 % 0.0-2.0 N NUCLEATED RBC % (test code = NRBC%) 0.0 % 0-0 N NEUTROPHIL # (test code = NT#) 11.02 x10 3/uL 2.0-7.6 H IMMATURE GRANULOCYTE # (test code = IG#) 0.08 x10 3/uL 0.00-0.03 H LYMPHOCYTE # (test code = LY#) 0.92 x10 3/uL 1.0-3.8 L MONOCYTE # (test code = MO#) 0.98 x10 3/uL 0.1-0.8 H EOSINOPHIL # (test code = EO#) 0.00 x10 3/uL 0.0-0.2 N BASOPHIL # (test code = BA#) 0.01 x10 3/uL 0.0-0.2 N NUCLEATED RBC # (test code = NRBC#) 0.00 x10 3/uL 0.0-0.1 N MANUAL DIFF REQUIRED (test code = MDIFF) NO CBC W/AUTO [id number] 16:32:00* Test Item Value Reference Range Interpretation Comme nts WHITE BLOOD CELL (test code = WBC) 12.6 x10 3/uL 4.5-11.0 H RED BLOOD CELL (test code = RBC) 2.60 x10 6/uL 4.00-5.60 L HEMOGLOBIN (test code = HGB) 7.7 g/dL 12.5-16.9 L HEMATOCRIT (test code = HCT) 23.9 % 37.5-50.7 L MEAN CELL VOLUME (test code = MCV) 91.9 fL 81.0-99.0 MEAN CELL HGB (test code = MCH) 29.6 pg 27.0-33.0 N MEAN CELL HGB CONCETRATION (test code = MCHC) 32.2 g/dL 33.0-37.0 L RED CELL DISTRIBUTION WIDTH CV (test code = RDW) 14.6 % 11.5-14.5 H RED CELL DISTRIBUTION WIDTH SD (test code = RDW-SD) 48.9 fL 37.0-54.0 N PLATELET COUNT (test code = PLT) 562 x10 3/uL 150-400 H MEAN PLATELET VOLUME (test code = MPV) 9.9 fL 7.0-9.0 H NEUTROPHIL % (test code = NT%) 87.5 % 56.0-77.0 H IMMATURE GRANULOCYTE % (test code = IG%) 0.6 % 0.0-2.0 N LYMPHOCYTE % (test code = LY%) 5.2 % 14.0-32.0 L MONOCYTE % (test code = MO%) 6.3 % 4.8-9.0 N EOSINOPHIL % (test code = EO%) 0.2 % 0.3-3.7 L BASOPHIL % (test code = BA%) 0.2 % 0.0-2.0 N NUCLEATED RBC % (test code = NRBC%) 0.0 % 0-0 N NEUTROPHIL # (test code = NT#) 11.07 x10 3/uL 2.0-7.6 H IMMATURE GRANULOCYTE # (test code = IG#) 0.07 x10 3/uL 0.00-0.03 H LYMPHOCYTE # (test code = LY#) 0.66 x10 3/uL 1.0-3.8 L MONOCYTE # (test code = MO#) 0.79 x10 3/uL 0.1-0.8 N EOSINOPHIL # (test code = EO#) 0.02 x10 3/uL 0.0-0.2 N BASOPHIL # (test code = BA#) 0.03 x10 3/uL 0.0-0.2 N NUCLEATED RBC # (test code = NRBC#) 0.00 x10 3/uL 0.0-0.1 N MANUAL DIFF REQUIRED (test code = MDIFF) NO BASIC METABOLIC [id number] 14:57:00* Test Item Value Reference Range Interpretation Comme nts SODIUM (test code = NA) 138 mEq/L 134-147 N POTASSIUM (test code = K) 3.5 mEq/L 3.4-5.0 N CHLORIDE (test code = CL) 108 mEq/L 100-108 N CARBON DIOXIDE (test code = CO2) 23 mEq/l 21-33 N ANION GAP (test code = GAP) 10 0-20 N GLUCOSE (test code = GLU) 86 mg/dL 70-110 N BLOOD UREA NITROGEN (test code = BUN) 11 mg/dL 7-18 N GLOMERULAR FILTRATION RATE (test code = GFR) 100.4 80-90 H The Glomerular Filtration Rate is a calculated parameterbased on serum Creatinine, patient age and sex. GFR valuesless than 60 mL/min/1.73 square meters are indicative ofChronic Kidney Disease. Values less than 15 mL/min/1.73square meters indicate Kidney failure. The calculation forGFR is based on the CKD-EPI (2020) calculation. This formulais race indifferent and is the recommended formula for GFRby the National Kidney Foundation for Adults.The GFR will not calculate if the sex is unknown or if thepatient's age is <18 years. CREATININE (test code = CREAT) 0.7 mg/dL 0.6-1.3 N CALCIUM (test code = CA) 7.1 mg/dL 8.0-10.5 L COMMENTS: On arrivalComment: On [id number] 14:57:00* Test Item Value Reference Range Interpretation Comme nts MAGNESIUM (test code = MAG) 1.95 mg/dL 1.80-2.40 N COMMENTS: On arrivalComment: On arrivalCBC W/AUTO [id number] 14:37:00* Test Item Value Reference Range Interpretation Comme nts WHITE BLOOD CELL (test code = WBC) 9.9 x10 3/uL 4.5-11.0 N RED BLOOD CELL (test code = RBC) 1.95 x10 6/uL 4.00-5.60 L HEMOGLOBIN (test code = HGB) 6.0 g/dL 12.5-16.9 LL Critical result called to Roxy MCCARTHY .[id number] at 1433 08/16/22Nurse read back resut and tech confirmed it's correct? YES HEMATOCRIT (test code = HCT) 18.5 % 37.5-50.7 L MEAN CELL VOLUME (test code = MCV) 94.9 fL 81.0-99.0 N MEAN CELL HGB (test code = MCH) 30.8 pg 27.0-33.0 N MEAN CELL HGB CONCETRATION (test code = MCHC) 32.4 g/dL 33.0-37.0 L RED CELL DISTRIBUTION WIDTH CV (test code = RDW) 14.8 % 11.5-14.5 H RED CELL DISTRIBUTION WIDTH SD (test code = RDW-SD) 51.1 fL 37.0-54.0 N PLATELET COUNT (test code = PLT) 417 x10 3/uL 150-400 H MEAN PLATELET VOLUME (test code = MPV) 10.0 fL 7.0-9.0 H NEUTROPHIL % (test code = NT%) 80.8 % 56.0-77.0 H IMMATURE GRANULOCYTE % (test code = IG%) 0.9 % 0.0-2.0 N LYMPHOCYTE % (test code = LY%) 6.2 % 14.0-32.0 L MONOCYTE % (test code = MO%) 10.8 % 4.8-9.0 H EOSINOPHIL % (test code = EO%) 1.0 % 0.3-3.7 N BASOPHIL % (test code = BA%) 0.3 % 0.0-2.0 N NUCLEATED RBC % (test code = NRBC%) 0.0 % 0-0 N NEUTROPHIL # (test code = NT#) 8.01 x10 3/uL 2.0-7.6 H IMMATURE GRANULOCYTE # (test code = IG#) 0.09 x10 3/uL 0.00-0.03 H LYMPHOCYTE # (test code = LY#) 0.61 x10 3/uL 1.0-3.8 L MONOCYTE # (test code = MO#) 1.07 x10 3/uL 0.1-0.8 H EOSINOPHIL # (test code = EO#) 0.10 x10 3/uL 0.0-0.2 N BASOPHIL # (test code = BA#) 0.03 x10 3/uL 0.0-0.2 N NUCLEATED RBC # (test code = NRBC#) 0.00 x10 3/uL 0.0-0.1 N MANUAL DIFF REQUIRED (test code = MDIFF) NO COMMENTS: On arrivalBASIC METABOLIC [id number] 08:24:00* Test Item Value Reference Range Interpretation Comme nts SODIUM (test code = NA) 135 mEq/L 134-147 N POTASSIUM (test code = K) 3.7 mEq/L 3.4-5.0 N CHLORIDE (test code = CL) 106 mEq/L 100-108 N CARBON DIOXIDE (test code = CO2) 22 mEq/l 21-33 N ANION GAP (test code = GAP) 11 0-20 N GLUCOSE (test code = GLU) 83 mg/dL 70-110 N BLOOD UREA NITROGEN (test code = BUN) 10 mg/dL 7-18 N GLOMERULAR FILTRATION RATE (test code = GFR) 82.0 80-90 N The Glomerular Filtration Rate is a calculated parameterbased on serum Creatinine, patient age and sex. GFR valuesless than 60 mL/min/1.73 square meters are indicative ofChronic Kidney Disease. Values less than 15 mL/min/1.73square meters indicate Kidney failure. The calculation forGFR is based on the CKD-EPI (2020) calculation. This formulais race indifferent and is the recommended formula for GFRby the National Kidney Foundation for Adults.The GFR will not calculate if the sex is unknown or if thepatient's age is <18 years. CREATININE (test code = CREAT) 1.0 mg/dL 0.6-1.3 N CALCIUM (test code = CA) 8.3 mg/dL 8.0-10.5 N [id number] 08:24:00* Test Item Value Reference Range Interpretation Comme nts MAGNESIUM (test code = MAG) 2.14 mg/dL 1.80-2.40 N CBC W/AUTO [id number] 07:26:00* Test Item Value Reference Range Interpretation Comme nts WHITE BLOOD CELL (test code = WBC) 13.3 x10 3/uL 4.5-11.0 H RED BLOOD CELL (test code = RBC) 2.69 x10 6/uL 4.00-5.60 L HEMOGLOBIN (test code = HGB) 8.2 g/dL 12.5-16.9 L HEMATOCRIT (test code = HCT) 25.4 % 37.5-50.7 L MEAN CELL VOLUME (test code = MCV) 94.4 fL 81.0-99.0 N MEAN CELL HGB (test code = MCH) 30.5 pg 27.0-33.0 N MEAN CELL HGB CONCETRATION (test code = MCHC) 32.3 g/dL 33.0-37.0 L RED CELL DISTRIBUTION WIDTH CV (test code = RDW) 14.8 % 11.5-14.5 H RED CELL DISTRIBUTION WIDTH SD (test code = RDW-SD) 51.4 fL 37.0-54.0 N PLATELET COUNT (test code = PLT) 590 x10 3/uL 150-400 H MEAN PLATELET VOLUME (test c ode = MPV) 10.4 fL 7.0-9.0 H NEUTROPHIL % (test code = NT%) 71.4 % 56.0-77.0 N IMMATURE GRANULOCYTE % (test code = IG%) 0.8 % 0.0-2.0 N LYMPHOCYTE % (test code = LY%) 13.4 % 14.0-32.0 L MONOCYTE % (test code = MO%) 13.0 % 4.8-9.0 H EOSINOPHIL % (test code = EO%) 1.0 % 0.3-3.7 N BASOPHIL % (test code = BA%) 0.4 % 0.0-2.0 N NUCLEATED RBC % (test code = NRBC%) 0.0 % 0-0 N NEUTROPHIL # (test code = NT#) 9.54 x10 3/uL 2.0-7.6 H IMMATURE GRANULOCYTE # (test code = IG#) 0.10 x10 3/uL 0.00-0.03 H LYMPHOCYTE # (test code = LY#) 1.78 x10 3/uL 1.0-3.8 N MONOCYTE # (test code = MO#) 1.73 x10 3/uL 0.1-0.8 H EOSINOPHIL # (test code = EO#) 0.13 x10 3/uL 0.0-0.2 N BASOPHIL # (test code = BA#) 0.05 x10 3/uL 0.0-0.2 N NUCLEATED RBC # (test code = NRBC#) 0.00 x10 3/uL 0.0-0.1 N MANUAL DIFF REQUIRED (test c ode = MDIFF) NO - XR CHEST 1 [id number] 00:00:00 [facility] 1955 Sex: M FAX:Ludin John [phone] Indian: St: ADM FAX: Albino Castillo MD [phone] ------- Name: MARY DALY [facility] : 1955 Age/S: 66/M [address] [place] [address] Blvd Unit #: [id number] Loc: G.3343 [place] [address] Phys: Ludin Mccurdy MD Acct: [id number] Dis Date: Status: ADM IN PHONE #: [phone] Exam Date: 08/16/2022 1450 FAX #: [phone] Reason: Cardiac Surgery Post Op EXAMS: CPT CODE: [id number] XR CHEST 1 V 34623 PROCEDURE INFORMATION: Exam: XR Chest Exam date [...] MD Technologist: Radha Dunham RT(R) Trnscrd Date/Time/By: 08/16/2022 (1547) : By: [email or web address] Orig Print D/T: S: 08/16/2022 (1542) PAGE 1 Signed ReportPROTHROMBIN [id number] 15:45:00* Test Item Value Reference Range Interpretation Comme nts PROTHROMBIN TIME PATIENT (test code = PTP) 15.6 SECONDS 9.3-12.9 H INTERNATIONAL NORMAL RATIO (test code = INR) 1.4 0.8-1.2 H TARGET INR BY INDICATION Indication INR1. Prophylaxis of venous thrombosis 2.0 - 3.0 (orthopedic surgery), Prophylaxis of venous thrombosis (other than high-risk surgery), Treatment of Deep Vein Thrombosis/Pulmonary Embolism, Prevention of systemic embolism - Tissue heart valves, Acute Myocardial Infarction (to prevent systemic embolism), Valvular heart disease, Atrial Fibrillation, Bileaflet mechanical valve in aortic position.2. Mechanical prosthetic valves (high risk), 2.5 - 3.5 Presence of Lupus Anticoagulant or Antiphospholipid Antibodies, Prevention of systemic embolism - Acute Myocardial Infarction (to prevent recurrent infarct). THROMBOPLASTIN TIME [id number] 15:45:00* Test Item Value Reference Range Interpretation Comme nts THROMBOPLASTIN TIME PARTIAL (test code = PTT) 33.5 Seconds 25.0-39.5 N Therapeutic Rang e: 50.4 - 88.3 Seconds Effective 06/06/2018 B-TYPE NATRIURETIC [id number] 13:25:00* Test Item Value Reference Range Interpretation Comme nts B-TYPE NATRIURETIC PEPTIDE ( test code = BNP) 491.0 PG/ML 0-100 H BASIC METABOLIC [id number] 13:22:00* Test Item Value Reference Range Interpretation Comme nts SODIUM (test code = NA) 136 mEq/L 134-147 N POTASSIUM (test code = K) 4.5 mEq/L 3.4-5.0 N CHLORIDE (test code = CL) 106 mEq/L 100-108 N CARBON DIOXIDE (test code = CO2) 21 mEq/l 21-33 N ANION GAP (test code = GAP) 13 0-20 N GLUCOSE (test code = GLU) 106 mg/dL 70-110 N BLOOD UREA NITROGEN (test code = BUN) 9 mg/dL 7-18 N GLOMERULAR FILTRATION RATE (test code = GFR) 82.0 80-90 N The Glomerular Filtration Rate is a calculated parameterbased on serum Creatinine, patient age and sex. GFR valuesless than 60 mL/min/1.73 square meters are indicative ofChronic Kidney Disease. Values less than 15 mL/min/1.73square meters indicate Kidney failure. The calculation forGFR is based on the CKD-EPI (202) calculation. This formulais race indifferent and is the recommended formula for GFRby the National Kidney Foundation for Adults.The GFR will not calculate if the sex is unknown or if thepatient's age is <18 years. CREATININE (test code = CREAT) 1.0 mg/dL 0.6-1.3 N CALCIUM (test code = CA) 8.6 mg/dL 8.0-10.5 N HEPATIC FUNCTION [id number] 13:22:00* Test Item Value Reference Range Interpretation Comme nts TOTAL PROTEIN (test code = PROT) 6.9 g/dL 6.4-8.2 N ALBUMIN (test code = ALB) 3.00 g/dL 3.4-5.0 L BILIRUBIN TOTAL (test code = BILT) 0.60 mg/dL 0.0-1.0 N BILIRUBIN DIRECT (test code = BILD) 0.30 MG/DL 0.0-0.30 N SGOT/AST (test code = AST) 44 IUnit/L 15-37 H SGPT/ALT (test code = ALT) 48 IUnit/L 30-65 N ALKALINE PHOSPHATASE TOTAL ( test code = ALKP) 133 IUnit/L 20-125 H BILIRUBIN INDIRECT (test cod e = BILIND) 0.30 MG/DL [id number] 13:22:00* Test Item Value Reference Range Interpretation Comme nts MAGNESIUM (test code = MAG) 2.14 mg/dL 1.80-2.40 N TROP-I HIGH [id number] 13:22:00* Test Item Value Reference Range Interpretation Comme nts TROP-I HIGH SENSITIVITY (test code = TROPIHS) 21 ng/L 0-54 N CAUTION: Units o f the current test methodology (ng/L) differfrom the prior test methodology (ng/mL) by a factor of 1000. 99th Percentile Upper Reference Limit (URL): Females: 34 ng/LMales: 54 ng/L In order to distinguish acute elevations of high sensitivitytroponin from other clinical conditions, the FourthUniversal Definition of Myocardial Infarction stressesclinical assessment and the demonstration of a rise and/orfall in serial troponin results above the URL. These results were obtained using ONEPLE IM TnIHreagent. Results from different methodologies should not becompared to one another as quantitative results and URLs mayvary by method. CBC W/AUTO [id number] 13:03:00* Test Item Value Reference Range Interpretation Comme nts WHITE BLOOD CELL (test code = WBC) 9.9 x10 3/uL 4.5-11.0 N RED BLOOD CELL (test code = RBC) 2.44 x10 6/uL 4.00-5.60 L HEMOGLOBIN (test code = HGB) 7.7 g/dL 12.5-16.9 L HEMATOCRIT (test code = HCT) 22.7 % 37.5-50.7 L MEAN CELL VOLUME (test code = MCV) 93.0 fL 81.0-99.0 N MEAN CELL HGB (test code = MCH) 31.6 pg 27.0-33.0 N MEAN CELL HGB CONCETRATION (test code = MCHC) 33.9 g/dL 33.0-37.0 N RED CELL DISTRIBUTION WIDTH CV (test code = RDW) 14.6 % 11.5-14.5 H PLATELET COUNT (test code = PLT) 323 x10 3/uL 150-400 N NEUTROPHIL % (test code = NT%) 81.4 % 56.0-77.0 H LYMPHOCYTE % (test code = LY%) 8.3 % 14.0-32.0 L NEUTROPHIL # (test code = NT#) 8.05 x10 3/uL 2.0-7.6 H LYMPHOCYTE # (test code = LY#) 0.82 x10 3/uL 1.0-3.8 L MANUAL DIFF REQUIRED (test c ode = MDIFF) NO RED CELL DISTRIBUTION WIDTH SD (test code = RDW-SD) 49.3 fL 37.0-54.0 N MEAN PLATELET VOLUME (test c ode = MPV) 10.5 fL 7.0-9.0 H IMMATURE GRANULOCYTE % (test code = IG%) 0.8 % 0.0-2.0 N MONOCYTE % (test code = MO%) 8.4 % 4.8-9.0 N EOSINOPHIL % (test code = EO%) 0.9 % 0.3-3.7 N BASOPHIL % (test code = BA%) 0.2 % 0.0-2.0 N NUCLEATED RBC % (test code = NRBC%) 0.0 % 0-0 N IMMATURE GRANULOCYTE # (test code = IG#) 0.08 x10 3/uL 0.00-0.03 H MONOCYTE # (test code = MO#) 0.83 x10 3/uL 0.1-0.8 H EOSINOPHIL # (test code = EO#) 0.09 x10 3/uL 0.0-0.2 N BASOPHIL # (test code = BA#) 0.02 x10 3/uL 0.0-0.2 N NUCLEATED RBC # (test code = NRBC#) 0.00 x10 3/uL 0.0-0.1 N - DUP VEIN [id number] 00:00:00 [facility] 1955 Sex: M Name: MARY DALY [facility] : 1955 Age/S: 66 / M [address] [place] [address] Blvd Unit #: [id number] Loc: B[facility]ARD [place] [address] Phys: Rosalind Mendez Acct: [id number] Dis Date: Status: ADM IN PHONE #: [phone] Exam Date: 08/15/20227 FAX #: [phone] Reason: R/O DVT EXAMS: CPT CODE: [id number] [facility] [address] PROCEDURE INFORMATION: Exam: US Duplex Lower Extremity Veins, Bilateral Exam date and time: 08/15/2022 12:46 PM Age: 66 years old Clinical indication: Screening exam; R/Odvt TECHNIQUE: Imaging protocol: Real-time duplex ultrasound of the bilateral extremities with 2-D walters scale, color Doppler flow and spectral waveform analysis including responses to compression andother maneuvers (when performed) with image documentation. Complete [...] Albino Torre MD; Rosalind Mendez Technologist: Christina Cisneros Date/Time: 08/15/2022 (1076) [email or web address] Orig Print D/T: S: 08/15/2022 (1400) Probe: PAGE 1 Signed Report- CT CHEST W/O [id number] 00:00:00 [facility] 1955 Sex: M Name: MARY DALY [facility] : 1955 Age/S: 66 / M [address] [place] [address] Unit #: [id number] Loc: [place] [address] Phys: Jaden Rodgers MD Acct: [id number] Dis Date: Status: ADM INPHONE #: [phone] Exam Date: 08/15/2022 1318 FAX #: [phone] Reason: eval post CABG EXAMS: CPT CODE: [id number] CT CHEST W/O CONTRAST 05578 PROCEDURE INFORMATION: Exam: CT Chest Without Contrast; [...] Vasculature: Unremarkable. No aortic aneurysm. Bones/joints: Post sternotomy. No evidence of sternal dehiscence. 22 x [...] junction. A smaller 7 x 20 x 25mm lower retrosternal collection is also present. Subsegmental atelectasis or infiltrate in the posteromedial left lung base. Very small left pleural fluid. PAGE 1 Signed Report (CONTINUED) Name: MARY DALY [facility] : 1955 Age/S: 66 / M [address] [place] [address] Blvd Unit #: [id number]: [place] [address] Phys: Jaden Rodgers MD Acct: [id number] Dis Date: Status: ADM IN PHONE #: [phone] Exam Date: 08/15/2022 1318 FAX #: [phone] Reason: eval post CABG EXAMS: CPT CODE: [id number] CT CHEST W/O CONTRAST 35614 (Continued) at 1451 Reported and signed by: Maik Sandra M.D. CC: Jaden Rodgers MD; Albino Torre MD Technologist:Angeli Diaz RT(R); Arely CTDI: DLP: Trnscb Date/Time: 08/15/2022 (1450) [email or web address] Orig Print D/T: S: 08/15/2022 (602) PAGE 2 Signed Report- XR CHEST 1 [id number] 00:00:00 [facility] 1955 Sex: M FAX: Jaden Rodgers Indian: St: ADM FAX: Albino Castillo MD [phone] Name: MARY DALY [facility] : 1955 Age/S: 66/M [address] [place] [address] Unit #: [id number] Loc: [facility] [place] [address] Phys: Jaden Rodgers MD Acct: [id number] Dis Date: Status: ADM IN PHONE #: [phone] Exam Date:08/15/2022 1233 FAX #: [phone] Reason: Chest Pain EXAMS: CPT CODE: [id number] XR CHEST 1 V 04807 PROCEDURE INFORMATION: Exam: XR Chest Exam date and time: 08/15/2022 12:26 PM Age: 66 years old Clinical indication: Other: Chest pain TECHNIQUE: Imaging protocol: Radiologic exam of the chest. Views: 1 view. COMPARISON: CR XR CHEST 1V 08/09/2022 5:49 AM FINDINGS: Lungs: There is interval decreasein the diffuse pulmonary edema. Lung volumes are stable. No consolidation. Pleural spaces: Unremarkable. No pleural effusion. No pneumothorax. Sternal suture wires are intact. Heart/Mediastinum: Heart size is within normal limits. Vasculature is unremarkable. Bones/joints: Unremarkable. IMPRESSION:Interval decrease in the diffuse pulmonary edema. at 0313 Reported and signed by: Breonna Noonan M.D. CC: Jaden Rodgers MD; Albino Torre MD Technologist: Julio C Bruno RT(R) Trnscrd Date/Time/By: 08/15/2022 (3539) : By: [email or web address] Orig Print D/T: S: 08/15/2022 (7576) PAGE 1 Signed ReportCBC W/AUTO [id number] 08:16:00* Test Item Value Reference Range Interpretation Comme nts WHITE BLOOD CELL (test code = WBC) 11.5 x10 3/uL 4.5-11.0 H RED BLOOD CELL (test code = RBC) 2.66 x10 6/uL 4.00-5.60 L HEMOGLOBIN (test code = HGB) 8.3 g/dL 12.5-16.9 L HEMATOCRIT (test code = HCT) 25.8 % 37.5-50.7 L MEAN CELL VOLUME (test code = MCV) 97.0 fL 81.0-99.0 MEAN CELL HGB (test code = MCH) 31.2 pg 27.0-33.0 N MEAN CELL HGB CONCETRATION (test code = MCHC) 32.2 g/dL 33.0-37.0 L RED CELL DISTRIBUTION WIDTH CV (test code = RDW) 14.6 % 11.5-14.5 H RED CELL DISTRIBUTION WIDTH SD (test code = RDW-SD) 51.1 fL 37.0-54.0 N PLATELET COUNT (test code = PLT) 296 x10 3/uL 150-400 N MEAN PLATELET VOLUME (test c ode = MPV) 11.0 fL 7.0-9.0 H NEUTROPHIL % (test code = NT%) 67.9 % 56.0-77.0 N IMMATURE GRANULOCYTE % (test code = IG%) 0.8 % 0.0-2.0 N LYMPHOCYTE % (test code = LY%) 16.6 % 14.0-32.0 N MONOCYTE % (test code = MO%) 11.6 % 4.8-9.0 H EOSINOPHIL % (test code = EO%) 2.7 % 0.3-3.7 N BASOPHIL % (test code = BA%) 0.4 % 0.0-2.0 N NUCLEATED RBC % (test code = NRBC%) 0.3 % 0-0 H NEUTROPHIL # (test code = NT#) 7.80 x10 3/uL 2.0-7.6 H IMMATURE GRANULOCYTE # (test code = IG#) 0.09 x10 3/uL 0.00-0.03 H LYMPHOCYTE # (test code = LY#) 1.91 x10 3/uL 1.0-3.8 N MONOCYTE # (test code = MO#) 1.33 x10 3/uL 0.1-0.8 H EOSINOPHIL # (test code = EO#) 0.31 x10 3/uL 0.0-0.2 H BASOPHIL # (test code = BA#) 0.05 x10 3/uL 0.0-0.2 N NUCLEATED RBC # (test code = NRBC#) 0.03 x10 3/uL 0.0-0.1 N MANUAL DIFF REQUIRED (test c ode = MDIFF) NO BASIC METABOLIC [id number] 07:45:00* Test Item Value Reference Range Interpretation Comme nts SODIUM (test code = NA) 140 mEq/L 134-147 N POTASSIUM (test code = K) 4.2 mEq/L 3.4-5.0 N CHLORIDE (test code = CL) 109 mEq/L 100-108 H CARBON DIOXIDE (test code = CO2) 22 mEq/l 21-33 N ANION GAP (test code = GAP) 13 0-20 N GLUCOSE (test code = GLU) 109 mg/dL 70-110 N BLOOD UREA NITROGEN (test code = BUN) 9 mg/dL 7-18 N GLOMERULAR FILTRATION RATE (test code = GFR) 96.4 80-90 H The Glomerular Filtration Rate is a calculated parameterbased on serum Creatinine, patient age and sex. GFR valuesless than 60 mL/min/1.73 square meters are indicative ofChronic Kidney Disease. Values less than 15 mL/min/1.73square meters indicate Kidney failure. The calculation forGFR is based on the CKD-EPI (2020) calculation. This formulais race indifferent and is the recommended formula for GFRby the National Kidney Foundation for Adults.The GFR will not calculate if the sex is unknown or if thepatient's age is <18 years. CREATININE (test code = CREAT) 0.8 mg/dL 0.6-1.3 N CALCIUM (test code = CA) 8.6 mg/dL 8.0-10.5 N [id number] 07:45:00* Test Item Value Reference Range Interpretation Comme nts MAGNESIUM (test code = MAG) 2.10 mg/dL 1.80-2.40 N - XR CHEST 1 [id number] 00:00:00 [facility] 1955 Sex: M FAX: Ludin John [phone] Indian: St: [facility] FAX: Sam Mckoy MD [phone] FAX: Albino Ny MD [phone] Name: MARY DALY : 1955 Age/S: 66/M [address] [place] [address] Blvd Unit #: [id number] Loc: [address] [place] [address] Phys: Ludin Mccurdy MD Acct: [id number] Dis Date: Status: ADM IN PHONE #: [phone] Exam Date: 08/09/2022 07 FAX #: [phone] Reason:S/P CABG, R/O EFFUSION EXAMS: CPT CODE: [id number] XR CHEST 1 V 16626 PROCEDURE INFORMATION: Exam: XR Chest Exam date [...] demonstrated within the aorta. Bones/joints: Sternotomy wires, hardwareis demonstrated. Soft tissues: This study is limited by patient's body habitus. Other findings: Limited evaluation with patient rotation. IMPRESSION: 1. Moderate enlarged cardiac silhouette. 2. Moderate pulmonary edema versus infiltrates, pneumonia. 3. Small bilateral pleural effusions. at 0911 Reported and signed by: Lor Stoner M.D. CC: Ludin Mccurdy MD; Sam Price MD; Albino Torre MD Technologist: William Bashir RT(R) Trnscrd Date/Time/By: 08/09/2022 (0911) : By: [email or web address] Orig Print D/T: S: 08/09/2022 (8968) PAGE 1 Signed ReportBASIC METABOLIC PANEL 2022-08-08 07:47:00* Test Item Value Reference Range Interpretation Comme nts SODIUM (test code = NA) 141 mEq/L 134-147 N POTASSIUM (test code = K) 3.7 mEq/L 3.4-5.0 N CHLORIDE (test code = CL) 108 mEq/L 100-108 N CARBON DIOXIDE (test code = CO2) 25 mEq/l 21-33 N ANION GAP (test code = GAP) 12 0-20 N GLUCOSE (test code = GLU) 102 mg/dL 70-110 N BLOOD UREA NITROGEN (test code = BUN) 11 mg/dL 7-18 N GLOMERULAR FILTRATION RATE (test code = GFR) 96.4 80-90 H The Glomerular Filtration Rate is a calculated parameterbased on serum Creatinine, patient age and sex. GFR valuesless than 60 mL/min/1.73 square meters are indicative ofChronic Kidney Disease. Values less than 15 mL/min/1.73square meters indicate Kidney failure. The calculation forGFR is based on the CKD-EPI (2020) calculation. This formulais race indifferent and is the recommended formula for GFRby the National Kidney Foundation for Adults.The GFR will not calculate if the sex is unknown or if thepatient's age is <18 years. CREATININE (test code = CREAT) 0.8 mg/dL 0.6-1.3 N CALCIUM (test code = CA) 8.3 mg/dL 8.0-10.5 N [id number] 07:47:00* Test Item Value Reference Range Interpretation Comme nts PHOSPHOROUS (test code = PHOS) 4.3 MG/DL 2.5-4.9 N [id number] 07:47:00* Test Item Value Reference Range Interpretation Comme nts MAGNESIUM (test code = MAG) 2.05 mg/dL 1.80-2.40 N CBC W/AUTO [id number] 07:29:00* Test Item Value Reference Range Interpretation Comme nts WHITE BLOOD CELL (test code = WBC) 11.3 x10 3/uL 4.5-11.0 H RED BLOOD CELL (test code = RBC) 2.39 x10 6/uL 4.00-5.60 L HEMOGLOBIN (test code = HGB) 7.6 g/dL 12.5-16.9 L HEMATOCRIT (test code = HCT) 21.9 % 37.5-50.7 L MEAN CELL VOLUME (test code = MCV) 91.6 fL 81.0-99.0 MEAN CELL HGB (test code = MCH) 31.8 pg 27.0-33.0 N MEAN CELL HGB CONCETRATION (test code = MCHC) 34.7 g/dL 33.0-37.0 N RED CELL DISTRIBUTION WIDTH CV (test code = RDW) 14.2 % 11.5-14.5 N RED CELL DISTRIBUTION WIDTH SD (test code = RDW-SD) 47.5 fL 37.0-54.0 N PLATELET COUNT (test code = PLT) 223 x10 3/uL 150-400 N MEAN PLATELET VOLUME (test c ode = MPV) 11.0 fL 7.0-9.0 H NEUTROPHIL % (test code = NT%) 67.6 % 56.0-77.0 N IMMATURE GRANULOCYTE % (test code = IG%) 0.8 % 0.0-2.0 N LYMPHOCYTE % (test code = LY%) 17.1 % 14.0-32.0 N MONOCYTE % (test code = MO%) 12.0 % 4.8-9.0 H EOSINOPHIL % (test code = EO%) 2.1 % 0.3-3.7 N BASOPHIL % (test code = BA%) 0.4 % 0.0-2.0 N NUCLEATED RBC % (test code = NRBC%) 0.2 % 0-0 H NEUTROPHIL # (test code = NT#) 7.64 x10 3/uL 2.0-7.6 H IMMATURE GRANULOCYTE # (test code = IG#) 0.09 x10 3/uL 0.00-0.03 H LYMPHOCYTE # (test code = LY#) 1.93 x10 3/uL 1.0-3.8 N MONOCYTE # (test code = MO#) 1.36 x10 3/uL 0.1-0.8 H EOSINOPHIL # (test code = EO#) 0.24 x10 3/uL 0.0-0.2 H BASOPHIL # (test code = BA#) 0.04 x10 3/uL 0.0-0.2 N NUCLEATED RBC # (test code = NRBC#) 0.02 x10 3/uL 0.0-0.1 N MANUAL DIFF REQUIRED (test c ode = IFF) NO - XR CHEST 1 [id number] 00:00:00 [facility] 1955 Sex: M FAX:Ludin John [phone] Indian: St: ADM FAX: Sam Mckoy MD [phone] FAX: Albino Castillo MD [phone] Name: MARY DALY [facility] : 1955 Age/S: 66/M [address] [place] [address] Blvd Unit #: [id number] Loc: [id number] [place] [address] Phys: Ludin Mccurdy MD Acct: [id number] Dis Date: Status: ADM IN PHONE #: [phone] Exam Date: 08/08/2022728 FAX #: [phone] Reason: Cardiac Surgery Post Op EXAMS: CPT CODE: [id number] XR CHEST 1 V 51183 PROCEDURE INFORMATION: Exam: XR Chest Exam date [...] curvilinear density at the left apex, equivocal fora small pneumothorax, involving less than 10% volume. Attention on follow-up exam. at 0945 Reported and signed by: Allan Diana M.D. CC: Ludin Mccurdy MD; Sam Price MD; Albino Torre MD Technologist: RT Kalli(R) Trnscrd Date/Time/By: 08/08/2022 (924) : By: [email or web address] Orig Print D/T: S: 08/08/2022 (924) PAGE 1Signed ReportCBC W/AUTO DIFF 2022-08-07 07:58:00* Test Item Value Reference Range Interpretation Comme nts WHITE BLOOD CELL (test code = WBC) 11.4 x10 3/uL 4.5-11.0 H RED BLOOD CELL (test code = RBC) 2.46 x10 6/uL 4.00-5.60 L HEMOGLOBIN (test code = HGB) 7.6 g/dL 12.5-16.9 L HEMATOCRIT (test code = HCT) 24.0 % 37.5-50.7 L MEAN CELL VOLUME (test code = MCV) 97.6 fL 81.0-99.0 MEAN CELL HGB (test code = MCH) 30.9 pg 27.0-33.0 N MEAN CELL HGB CONCETRATION (test code = MCHC) 31.7 g/dL 33.0-37.0 L RED CELL DISTRIBUTION WIDTH CV (test code = RDW) 14.6 % 11.5-14.5 H RED CELL DISTRIBUTION WIDTH SD (test code = RDW-SD) 52.7 fL 37.0-54.0 N PLATELET COUNT (test code = PLT) 192 x10 3/uL 150-400 N MEAN PLATELET VOLUME (test c ode = MPV) 11.7 fL 7.0-9.0 H NEUTROPHIL % (test code = NT%) 64.9 % 56.0-77.0 N IMMATURE GRANULOCYTE % (test code = IG%) 0.6 % 0.0-2.0 N LYMPHOCYTE % (test code = LY%) 18.5 % 14.0-32.0 N MONOCYTE % (test code = MO%) 12.7 % 4.8-9.0 H EOSINOPHIL % (test code = EO%) 3.0 % 0.3-3.7 N BASOPHIL % (test code = BA%) 0.3 % 0.0-2.0 N NUCLEATED RBC % (test code = NRBC%) 0.2 % 0-0 H NEUTROPHIL # (test code = NT#) 7.37 x10 3/uL 2.0-7.6 N IMMATURE GRANULOCYTE # (test code = IG#) 0.07 x10 3/uL 0.00-0.03 H LYMPHOCYTE # (test code = LY#) 2.10 x10 3/uL 1.0-3.8 N MONOCYTE # (test code = MO#) 1.44 x10 3/uL 0.1-0.8 H EOSINOPHIL # (test code = EO#) 0.34 x10 3/uL 0.0-0.2 H BASOPHIL # (test code = BA#) 0.03 x10 3/uL 0.0-0.2 N NUCLEATED RBC # (test code = NRBC#) 0.02 x10 3/uL 0.0-0.1 N MANUAL DIFF REQUIRED (test c ode = MDIFF) NO BASIC METABOLIC [id number] 07:35:00* Test Item Value Reference Range Interpretation Comme nts SODIUM (test code = NA) 138 mEq/L 134-147 N POTASSIUM (test code = K) 4.1 mEq/L 3.4-5.0 N CHLORIDE (test code = CL) 105 mEq/L 100-108 N CARBON DIOXIDE (test code = CO2) 25 mEq/l 21-33 N ANION GAP (test code = GAP) 12 0-20 N GLUCOSE (test code = GLU) 105 mg/dL 70-110 N BLOOD UREA NITROGEN (test code = BUN) 12 mg/dL 7-18 N GLOMERULAR FILTRATION RATE (test code = GFR) 96.4 80-90 H The Glomerular Filtration Rate is a calculated parameterbased on serum Creatinine, patient age and sex. GFR valuesless than 60 mL/min/1.73 square meters are indicative ofChronic Kidney Disease. Values less than 15 mL/min/1.73square meters indicate Kidney failure. The calculation forGFR is based on the CKD-EPI (2020) calculation. This formulais race indifferent and is the recommended formula for GFRby the National Kidney Foundation for Adults.The GFR will not calculate if the sex is unknown or if thepatient's age is <18 years. CREATININE (test code = CREAT) 0.8 mg/dL 0.6-1.3 N CALCIUM (test code = CA) 8.4 mg/dL 8.0-10.5 N [id number] 07:35:00* Test Item Value Reference Range Interpretation Comme nts MAGNESIUM (test code = MAG) 2.00 mg/dL 1.80-2.40 N - [place] [id number] 00:00:00 [facility] 1955 Sex: M Name: MARY DALY [facility] [place] : 1955 Age/S: 66 / M [address] [place] [address] Unit #: [id number] Loc: BERNARD Santillan [address] Phys: Rosalind Mendez Acct: [id number] Dis Date: Status: ADM INPHONE #: [phone] Exam Date: 08/07/2022 1309 FAX #: [phone] Reason: R/O DVT EXAMS: CPT CODE: [id number] [place] [address] PROCEDURE INFORMATION: Exam: US Duplex Lower Extremity Veins, Bilateral Exam date and time: 08/07/2022 11:08 AM Age: 66 years old Clinical indication: Condition or disease; Other: S/P cabg; Additional info: R/O dvt TECHNIQUE: Imaging protocol: Real-time duplex ultrasound of the bilateral extremities with 2-D walters scale, color Doppler flow and spectral waveform analys is including responses to compression and other maneuvers (when performed) with image documentation. Complete exam focused on the lower extremity veins. COMPARISON: US [place] 07/28/2022 11:04 AMFINDINGS: Right deep veins: Unremarkable. The common femoral, femoral, proximal profunda femoral and popliteal veins are patent without thrombus. Normal Doppler waveforms. Normal compressibility and/or augmentation response. Right superficial veins: Saphenofemoral junction is patent without thrombus. Left deep veins: Unremarkable. The common femoral, femoral, proximal profunda femoral and poplit eal veins are patent without thrombus. Normal Doppler waveforms. Normal compressibility and/or augmentation response. Left superficial veins: Saphenofemoral junction is patent without thrombus. Soft tissues: Unremarkable. IMPRESSION: No evidence of deep vein thrombosis. at 1518 Reported and signed by: Esvin Guardado M.D. CC: Sam Price MD; Albino Torre MD; Rosalind Mendez Technologist: Carolyn Prathre Trncob Date/Time: 08/07/2022 (1517) [email or web address] Orig Print D/T: S: 08/07/2022 (1517) Probe: PAGE 1 Signed Report- XR CHEST 1 V 2022-08-07 00:00:00 [facility] : 1955 Sex: M FAX:Ludin John [phone] Indian: St: [facility] FAX: Sam Mckoy MD [phone] FAX: Albino Ny MD [phone] Name: MARY DALY [facility] : 1955 Age/S: 66/M [address] [place] [address] Blvd Unit #: [id number] Loc: G.3346 [place] [address] Phys: Ludin Mccurdy MD Acct: [id number] Dis Date: Status: ADM IN PHONE #: [phone] Exam Date: 08/07/2022816 FAX #: [phone] Reason: Cardiac Surgery Post Op EXAMS: CPT CODE: [id number] XR CHEST 1 V 03914 PROCEDURE INFORMATION: Exam: XR Chest Exam date [...] Torre MD Technologist: Issa Bey, RT(R); Muriel Jacobs, RT(R) Trnscrd Date/Time/By: 08/07/2022 (5340) : By: [email or web address] Orig Print D/T: S: 08/07/2022 (3593) PAGE 1 Signed ReportCBC W/AUTO [id number] 11:25:00* Test Item Value Reference Range Interpretation Comme nts WHITE BLOOD CELL (test code = WBC) 12.9 x10 3/uL 4.5-11.0 H RED BLOOD CELL (test code = RBC) 2.58 x10 6/uL 4.00-5.60 L HEMOGLOBIN (test code = HGB) 8.3 g/dL 12.5-16.9 L HEMATOCRIT (test code = HCT) 23.8 % 37.5-50.7 L MEAN CELL VOLUME (test code = MCV) 92.2 fL 81.0-99.0 N MEAN CELL HGB (test code = MCH) 32.2 pg 27.0-33.0 N MEAN CELL HGB CONCETRATION (test code = MCHC) 34.9 g/dL 33.0-37.0 N RED CELL DISTRIBUTION WIDTH CV (test code = RDW) 14.4 % 11.5-14.5 N RED CELL DISTRIBUTION WIDTH SD (test code = RDW-SD) 48.3 fL 37.0-54.0 N PLATELET COUNT (test code = PLT) 172 x10 3/uL 150-400 N MEAN PLATELET VOLUME (test c ode = MPV) 11.9 fL 7.0-9.0 H NEUTROPHIL % (test code = NT%) 70.0 % 56.0-77.0 N IMMATURE GRANULOCYTE % (test code = IG%) 0.5 % 0.0-2.0 N LYMPHOCYTE % (test code = LY%) 14.6 % 14.0-32.0 N MONOCYTE % (test code = MO%) 12.8 % 4.8-9.0 H EOSINOPHIL % (test code = EO%) 1.9 % 0.3-3.7 N BASOPHIL % (test code = BA%) 0.2 % 0.0-2.0 N NUCLEATED RBC % (test code = NRBC%) 0.0 % 0-0 N NEUTROPHIL # (test code = NT#) 9.01 x10 3/uL 2.0-7.6 H IMMATURE GRANULOCYTE # (test code = IG#) 0.07 x10 3/uL 0.00-0.03 H LYMPHOCYTE # (test code = LY#) 1.88 x10 3/uL 1.0-3.8 N MONOCYTE # (test code = MO#) 1.65 x10 3/uL 0.1-0.8 H EOSINOPHIL # (test code = EO#) 0.24 x10 3/uL 0.0-0.2 H BASOPHIL # (test code = BA#) 0.03 x10 3/uL 0.0-0.2 N NUCLEATED RBC # (test code = NRBC#) 0.00 x10 3/uL 0.0-0.1 N MANUAL DIFF REQUIRED (test c ode = MDIFF) NO BASIC METABOLIC [id number] 07:44:00* Test Item Value Reference Range Interpretation Comme nts SODIUM (test code = NA) 136 mEq/L 134-147 N POTASSIUM (test code = K) 4.4 mEq/L 3.4-5.0 N CHLORIDE (test code = CL) 103 mEq/L 100-108 N CARBON DIOXIDE (test code = CO2) 24 mEq/l 21-33 N ANION GAP (test code = GAP) 14 0-20 N GLUCOSE (test code = GLU) 105 mg/dL 70-110 N BLOOD UREA NITROGEN (test code = BUN) 12 mg/dL 7-18 N GLOMERULAR FILTRATION RATE (test code = GFR) 96.4 80-90 H The Glomerular Filtration Rate is a calculated parameterbased on serum Creatinine, patient age and sex. GFR valuesless than 60 mL/min/1.73 square meters are indicative ofChronic Kidney Disease. Values less than 15 mL/min/1.73square meters indicate Kidney failure. The calculation forGFR is based on the CKD-EPI (2020) calculation. This formulais race indifferent and is the recommended formula for GFRby the National Kidney Foundation for Adults.The GFR will not calculate if the sex is unknown or if thepatient's age is <18 years. CREATININE (test code = CREAT) 0.8 mg/dL 0.6-1.3 N CALCIUM (test code = CA) 8.8 mg/dL 8.0-10.5 N [id number] 07:44:00* Test Item Value Reference Range Interpretation Comme nts MAGNESIUM (test code = MAG) 2.03 mg/dL 1.80-2.40 N - XR CHEST 1 [id number] 00:00:00 [facility] : 1955 Sex: M FAX:Ludin John [phone] Indian: St: ADM FAX: Sam Mckoy MD [phone] FAX: Albino Castillo MD [phone] Name: MALIKAMARY [facility] : 1955 Age/S: 66/M [address] [place] [address] Unit #: [id number] Loc: G.3346 [place] [address] Phys: Ludin Mccurdy MD Acct: [id number] Dis Date: Status: ADM IN PHONE #: [phone] Exam Date: 08/06/2022 06 FAX #: [phone] Reason: Cardiac Surgery Post Op EXAMS: CPT CODE: [id number] XR CHEST 1 V 92655 PROCEDURE INFORMATION: Exam: XR Chest Exam date and time: 08/06/2022 6:19 AM Age: 66 years old Clinical indication: Other: Cardiac surgery post op TECHNIQUE: Imaging protocol: Radiologic exam of the chest. Views: 1 view. COMPARISON: CR XR CHEST 1V 08/05/2022 5:38 AM FINDINGS: Tubes, catheters and devices: Left chest tube removed.Lungs: Pulmonary vasculature appears congested and there is [...] apparent pulmonary vascular congestion and pulmonary edema. at 0826 Reported and signed by: Maik Sandra M.D. CC: Ludin Mccurdy MD; Sam Price MD; Albino Torre MD Technologist: RT Jennifer(Katherine) Trnscjenaro Date/Time/By: 08/06/2022 (08) : By: [email or web address] Orig Print D/T: S: 08/06/2022 (0827) PAGE 1 Signed [id number] 13:57:00 * Test Item Value Reference Range Interpretation Comments SURGICAL (test code = SR) RUN DATE: 08/05/22 [facility] [employer] - LAB PAGE 1 RUN TIME: 1357 Specimen Inquiry RUN USER: INTERFACE PATIENT: MARY DALY LOC: JOSH U #: [id number] AGE/SX: 66/M ROOM: [facility] RE07/30/22REG DR: Anthony Loaiza MD : [birth year] BED: 1 DIS: STATUS: ADM IN TLOC: SPEC #: [id number] RECD: 08/03/22-1015 STATUS: TERRY RE #: [id number] MELODY: 08/02/22- SUBM DR: Ludin Mccurdy MD ENTERED: 08/03/22-1016 SP TYPE: SURGICAL OTHR DR: Sam Fallon MD, Imtiaz MD Aldeiri, Molham MD Chaugle, Abdul Hannan MD Raslan, Saleem MD Resnick, Harvey MDORDERED: 21828, ANATOMIC SPEC COPIES TO: Sam Fallon MD [address] [place] [address], [address] [place] [address] Sterling Hidalgo MD [address] [place] [address] Flako Sainz MD [address] [place] [address] Ludin Mccurdy MD [address] [place] [address]. [address] [place] [address] Sam Price MD [facility] [address] [place] [address] Albino Torre MD [address] [place] [address] PROCEDURES: 40010 (08/03/22-1015) CONTINUED ON NEXT PAGE RUN DATE: 08/05/22 [place] - LAB PAGE 2 RUN TIME: 1357 Specimen Inquiry RUN USER: INTERFACE SPEC #: [id number] PATIENT: MARY DALY #[id number] (Continued) - TISSUES: A. ATRIUM - LEFT [...] submitted as A. Technical component performed at [facility],[address] [place] [address] Unless gross only, the diagnosis is based [...] 08/05/22 1357 END OF REPORT CBC W/AUTO [id number] 07:29:00* Test Item Value Reference Range Interpretation Comme nts WHITE BLOOD CELL (test code = WBC) 14.8 x10 3/uL 4.5-11.0 H RED BLOOD CELL (test code = RBC) 2.74 x10 6/uL 4.00-5.60 L HEMOGLOBIN (test code = HGB) 8.6 g/dL 12.5-16.9 L HEMATOCRIT (test code = HCT) 25.7 % 37.5-50.7 L MEAN CELL VOLUME (test code = MCV) 93.8 fL 81.0-99.0 N MEAN CELL HGB (test code = MCH) 31.4 pg 27.0-33.0 N MEAN CELL HGB CONCETRATION (test code = MCHC) 33.5 g/dL 33.0-37.0 N RED CELL DISTRIBUTION WIDTH CV (test code = RDW) 14.4 % 11.5-14.5 N RED CELL DISTRIBUTION WIDTH SD (test code = RDW-SD) 48.7 fL 37.0-54.0 N PLATELET COUNT (test code = PLT) 121 x10 3/uL 150-400 L MEAN PLATELET VOLUME (test c ode = MPV) 12.0 fL 7.0-9.0 H NEUTROPHIL % (test code = NT%) 67.4 % 56.0-77.0 N IMMATURE GRANULOCYTE % (test code = IG%) 0.6 % 0.0-2.0 N LYMPHOCYTE % (test code = LY%) 15.7 % 14.0-32.0 N MONOCYTE % (test code = MO%) 15.0 % 4.8-9.0 H EOSINOPHIL % (test code = EO%) 1.1 % 0.3-3.7 N BASOPHIL % (test code = BA%) 0.2 % 0.0-2.0 N NUCLEATED RBC % (test code = NRBC%) 0.0 % 0-0 N NEUTROPHIL # (test code = NT#) 9.99 x10 3/uL 2.0-7.6 H IMMATURE GRANULOCYTE # (test code = IG#) 0.09 x10 3/uL 0.00-0.03 H LYMPHOCYTE # (test code = LY#) 2.33 x10 3/uL 1.0-3.8 N MONOCYTE # (test code = MO#) 2.22 x10 3/uL 0.1-0.8 H EOSINOPHIL # (test code = EO#) 0.16 x10 3/uL 0.0-0.2 N BASOPHIL # (test code = BA#) 0.03 x10 3/uL 0.0-0.2 N NUCLEATED RBC # (test code = NRBC#) 0.00 x10 3/uL 0.0-0.1 N MANUAL DIFF REQUIRED (test c ode = MDIFF) NO BASIC METABOLIC [id number] 06:12:00* Test Item Value Reference Range Interpretation Comme nts SODIUM (test code = NA) 135 mEq/L 134-147 N POTASSIUM (test code = K) 4.2 mEq/L 3.4-5.0 N CHLORIDE (test code = CL) 106 mEq/L 100-108 N CARBON DIOXIDE (test code = CO2) 25 mEq/l 21-33 N ANION GAP (test code = GAP) 9 0-20 N GLUCOSE (test code = GLU) 105 mg/dL 70-110 N BLOOD UREA NITROGEN (test code = BUN) 13 mg/dL 7-18 N GLOMERULAR FILTRATION RATE (test code = GFR) 96.4 80-90 H The Glomerular Filtration Rate is a calculated parameterbased on serum Creatinine, patient age and sex. GFR valuesless than 60 mL/min/1.73 square meters are indicative ofChronic Kidney Disease. Values less than 15 mL/min/1.73square meters indicate Kidney failure. The calculation forGFR is based on the CKD-EPI (2020) calculation. This formulais race indifferent and is the recommended formula for GFRby the National Kidney Foundation for Adults.The GFR will not calculate if the sex is unknown or if thepatient's age is <18 years. CREATININE (test code = CREAT) 0.8 mg/dL 0.6-1.3 N CALCIUM (test code = CA) 8.8 mg/dL 8.0-10.5 N COMMENTS: POD #1HEPATIC FUNCTION [id number] 06:12:00* Test Item Value Reference Range Interpretation Comme nts TOTAL PROTEIN (test code = PROT) 5.8 g/dL 6.4-8.2 L ALBUMIN (test code = ALB) 3.60 g/dL 3.4-5.0 N BILIRUBIN TOTAL (test code = BILT) 0.80 mg/dL 0.0-1.0 BILIRUBIN DIRECT (test code = BILD) 0.40 MG/DL 0.0-0.30 H BILIRUBIN INDIRECT (test cod e = BILIND) 0.40 MG/DL SGOT/AST (test code = AST) 43 IUnit/L 15-37 H SGPT/ALT (test code = ALT) 16 IUnit/L 30-65 L ALKALINE PHOSPHATASE TOTAL ( test code = ALKP) 47 IUnit/L 20-125 N COMMENTS: POD #[id number] 06:12:00* Test Item Value Reference Range Interpretation Comme nts MAGNESIUM (test code = MAG) 2.14 mg/dL 1.80-2.40 N COMMENTS: POD #1- XR CHEST 1 [id number] 00:00:00 [facility] ALEAH BL[facility]ONEName: MARY DALY : 1955 Sex: M FAX:Ludin John [phone] Indian: St: ADM FAX: Sam Mckoy MD [phone] FAX: Albino Castillo MD [phone] Name: MARY DALY [facility] : 1955 Age/S: 66/M [address] [place] [address] Unit #: [id number] Loc: G.[address] [place] [address] Phys: Ludin Mccurdy MD Acct: [id number] Dis Date: Status: ADM IN PHONE #: [phone] Exam Date: 08/05/2022655 FAX #: [phone] Reason: Cardiac Surgery Post Op EXAMS: CPT CODE: [id number] XR CHEST 1 V 07602 PROCEDURE INFORMATION: Exam: XR C hest Exam date and time: 08/05/2022 5:38 AM Age: 66 years old Clinical indication: Other: Cardiac surgery post op TECHNIQUE: Imaging protocol: Radiologic exam of the chest. Views: 1 view. COMPARISON:CR XR CHEST 1V 08/04/2022 5:38 AM FINDINGS: Tubes, catheters and devices: Removal of the right IJ cat heter sheath. Stable left chest tube. Lungs: Bilateral lung opacities have increased. Pleural spaces: Small pleural effusions could be present. No definite pneumothorax. Heart/Mediastinum: The enlarged heart size is stable. Vasculature: Atherosclerotic calcifications. Bones/joints: Stable. Median st ernotomy wires. IMPRESSION: 1. Worsening lung opacities. 2. Resolution of small left pneumothorax. Stable left chest tube. 3. Removal of right catheter sheath. at 0813 Reported and signed by: Allan Diana M.D. CC: Ludin Blancas; Sam Price MD; Albino Torre MD Technologist: RT Lenore(R) Trnscrd Date/Time/By: 08/05/2022 (812) : By: [email or web address] Orig Print D/T: S: 08/05/2022 (812) PAGE 1 Signed ReportBASIC METABOLIC [id number] 15:41:00* Test Item Value Reference Range Interpretation Comme nts SODIUM (test code = NA) 140 mEq/L 134-147 N POTASSIUM (test code = K) 3.9 mEq/L 3.4-5.0 N CHLORIDE (test code = CL) 107 mEq/L 100-108 N CARBON DIOXIDE (test code = CO2) 25 mEq/l 21-33 N ANION GAP (test code = GAP) 12 0-20 N GLUCOSE (test code = GLU) 123 mg/dL 70-110 H BLOOD UREA NITROGEN (test code = BUN) 13 mg/dL 7-18 N GLOMERULAR FILTRATION RATE (test code = GFR) 100.4 80-90 H The Glomerular Filtration Rate is a calculated parameterbased on serum Creatinine, patient age and sex. GFR valuesless than 60 mL/min/1.73 square meters are indicative ofChronic Kidney Disease. Values less than 15 mL/min/1.73square meters indicate Kidney failure. The calculation forGFR is based on the CKD-EPI (2020) calculation. This formulais race indifferent and is the recommended formula for GFRby the National Kidney Foundation for Adults.The GFR will not calculate if the sex is unknown or if thepatient's age is <18 years. CREATININE (test code = CREAT) 0.7 mg/dL 0.6-1.3 N CALCIUM (test code = CA) 8.0 mg/dL 8.0-10.5 N [id number] 15:41:00* Test Item Value Reference Range Interpretation Comme nts MAGNESIUM (test code = MAG) 2.16 mg/dL 1.80-2.40 N - XR CHEST 1 [id number] 10:00:00 [facility] : 1955 Sex: M FAX:Ludin John [phone] Indian: St: ADM FAX: Sam Mckoy MD [phone] FAX: Albino Castillo MD [phone] Name: MARY DALY [facility] : 1955 Age/S: 66/M [address] [place] [address] Unit #: [id number] Loc: G.2207 [place] [address] Phys: Ludin Mccurdy MD Acct: [id number] Dis Date: Status: ADM IN PHONE #: [phone] Exam Date: 08/04/2022 0540 FAX #: [phone] Reason: Cardiac Surgery Post Op EXAMS: CPT CODE: [id number] XR CHEST 1 V 89971 CHEST ONE VIEW Dictation location N 13 [...] in place. 2. Findings were called to Lilly RN, CVICU nurse at 10:00 AM at 1000 Reported and signed by: Radha Stanley M.D. CC: Ludin Mccurdy MD; Sam Price MD; Albino Torre MD Technologist: Belem Stark RT(R) Trnscrd Date/Time/By: 08/04/2022 (1000) : By: Vadim Orig Print D/T: S: 08/04/2022 (1003) PAGE 1 Signed ReportCBC W/AUTO [id number] 03:31:00* Test Item Value Reference Range Interpretation Comme nts WHITE BLOOD CELL (test code = WBC) 12.1 x10 3/uL 4.5-11.0 H RED BLOOD CELL (test code = RBC) 2.45 x10 6/uL 4.00-5.60 L HEMOGLOBIN (test code = HGB) 7.7 g/dL 12.5-16.9 L HEMATOCRIT (test code = HCT) 22.4 % 37.5-50.7 L MEAN CELL VOLUME (test code = MCV) 91.4 fL 81.0-99.0 N MEAN CELL HGB (test code = MCH) 31.4 pg 27.0-33.0 N MEAN CELL HGB CONCETRATION (test code = MCHC) 34.4 g/dL 33.0-37.0 N RED CELL DISTRIBUTION WIDTH CV (test code = RDW) 14.3 % 11.5-14.5 N RED CELL DISTRIBUTION WIDTH SD (test code = RDW-SD) 48.4 fL 37.0-54.0 N PLATELET COUNT (test code = PLT) 86 x10 3/uL 150-400 L IMMATURE PLATELET FRACTION (test code = IPF) 7.3 % 0.9-11.2 N MEAN PLATELET VOLUME (test code = MPV) 11.6 fL 7.0-9.0 H NEUTROPHIL % (test code = NT%) 63.4 % 56.0-77.0 N LYMPHOCYTE % (test code = LY%) 14.8 % 14.0-32.0 N NEUTROPHIL # (test code = NT#) 7.68 x10 3/uL 2.0-7.6 H LYMPHOCYTE # (test code = LY#) 1.79 x10 3/uL 1.0-3.8 N MANUAL DIFF REQUIRED (test code = MDIFF) NO SLIDE REVIEW ED, CONSISTENT WITH AUTO DIFF. IMMATURE GRANULOCYTE % (test code = IG%) 0.4 % 0.0-2.0 N MONOCYTE % (test code = MO%) 21.2 % 4.8-9.0 H EOSINOPHIL % (test code = EO%) 0.1 % 0.3-3.7 L BASOPHIL % (test code = BA%) 0.1 % 0.0-2.0 N NUCLEATED RBC % (test code = NRBC%) 0.0 % 0-0 N IMMATURE GRANULOCYTE # (test code = IG#) 0.05 x10 3/uL 0.00-0.03 H MONOCYTE # (test code = MO#) 2.56 x10 3/uL 0.1-0.8 H EOSINOPHIL # (test code = EO#) 0.01 x10 3/uL 0.0-0.2 N BASOPHIL # (test code = BA#) 0.01 x10 3/uL 0.0-0.2 N NUCLEATED RBC # (test code = NRBC#) 0.00 x10 3/uL 0.0-0.1 N PLT [id number] 03:31:00* Test Item Value Reference Range Interpretation Comme nts PLATELET ESTIMATE (test code = PLTEST) 100-125 THOUSAND ADEQUATE BASIC METABOLIC [id number] 03:20:00* Test Item Value Reference Range Interpretation Comme nts SODIUM (test code = NA) 137 mEq/L 134-147 N POTASSIUM (test code = K) 3.8 mEq/L 3.4-5.0 N CHLORIDE (test code = CL) 110 mEq/L 100-108 H CARBON DIOXIDE (test code = CO2) 25 mEq/l 21-33 N ANION GAP (test code = GAP) 6 0-20 N GLUCOSE (test code = GLU) 109 mg/dL 70-110 N BLOOD UREA NITROGEN (test code = BUN) 12 mg/dL 7-18 N GLOMERULAR FILTRATION RATE (test code = GFR) 96.4 80-90 H The Glomerular Filtration Rate is a calculated parameterbased on serum Creatinine, patient age and sex. GFR valuesless than 60 mL/min/1.73 square meters are indicative ofChronic Kidney Disease. Values less than 15 mL/min/1.73square meters indicate Kidney failure. The calculation forGFR is based on the CKD-EPI (2020) calculation. This formulais race indifferent and is the recommended formula for GFRby the National Kidney Foundation for Adults.The GFR will not calculate if the sex is unknown or if thepatient's age is <18 years. CREATININE (test code = CREAT) 0.8 mg/dL 0.6-1.3 N CALCIUM (test code = CA) 8.2 mg/dL 8.0-10.5 N COMMENTS: POD #1HEPATIC FUNCTION [id number] 03:20:00* Test Item Value Reference Range Interpretation Comme nts TOTAL PROTEIN (test code = PROT) 5.1 g/dL 6.4-8.2 L ALBUMIN (test code = ALB) 3.70 g/dL 3.4-5.0 N BILIRUBIN TOTAL (test code = BILT) 0.60 mg/dL 0.0-1.0 N BILIRUBIN DIRECT (test code = BILD) 0.30 MG/DL 0.0-0.30 N BILIRUBIN INDIRECT (test cod e = BILIND) 0.30 MG/DL SGOT/AST (test code = AST) 34 IUnit/L 15-37 N SGPT/ALT (test code = ALT) 14 IUnit/L 30-65 L ALKALINE PHOSPHATASE TOTAL ( test code = ALKP) 32 IUnit/L 20-125 N COMMENTS: POD #[id number] 03:20:00* Test Item Value Reference Range Interpretation Comme nts MAGNESIUM (test code = MAG) 2.13 mg/dL 1.80-2.40 N COMMENTS: POD #1POC ARTERIAL BLOOD [id number] 02:57:00* Test Item Value Reference Range Interpretation Comme nts POC ARTERIAL BLOOD GAS PH (t est code = POCPHA) 7.456 7.35-7.45 H POC ARTERIAL BLOOD GAS PCO2 (test code = TQEUFG1F) 34.5 mmHg 35.0-45 L POC TCO2 ARTERIAL (test code = POCTCO2) 25.1 POC ARTERIAL BLOOD GAS PO2 ( test code = HYSGJ7K) 60.9 mmHg 80-100.0 L POC HCO3 ARTERIAL (test code = RYXXGB9Z) 24.1 MMOL/L 22.0-26.0 N POC BASE EXCESS (test code = POCBEA) 0.5 MMOL/L -4.0-4.0 N POC O2 SATURATION (test code = POCO2S) 91.1 % 90-100 N ABG DELIVERY (test code = KIRBY) Cannula ABG TEMPERATURE (test code = TEMPA) 100.6 F ABG SITE (test code = SITEA) Art Line NAZIA'S TEST (test code = ALLENS) N/A BASIC METABOLIC [id number] 02:57:00* Test Item Value Reference Range Interpretation Comme nts SODIUM (test code = NA/ABG) 138 mmol/L 134-147 N POTASSIUM (test code = K/ABG) 3.7 mmol/L 3.4-5.0 N CHLORIDE (test code = CL/ABG) 105 mmol/L 100-108 N CREATININE ABG (test code = CREAABG) 0.8 mg/dL 0.8-1.3 N POC IONIZED CALCIUM (test co de = POCCA) 1.20 MMOL/L 1.12-1.32 N POC GLUCOSE (test code = POCGLU) 92 MG/DL 70-110 N HEMOGLOBIN [id number] 02:57:00* Test Item Value Reference Range Interpretation Comme nts HEMOGLOBIN ABG (test code = HGB/ABG) 7.2 G/DL 12.5-16.9 L [id number] 02:57:00* Test Item Value Reference Range Interpretation Comme nts HEMATOCRIT (test code = HCT/ABG) 21 % 37.5-50.7 L POC LACTIC [id number] 02:57:00* Test Item Value Reference Range Interpretation Comme nts POC LACTIC ACID (test code = POCLAC) 0.5 mmol/l 0.9-1.7 L POC ARTERIAL BLOOD [id number] 07:03:00* Test Item Value Reference Range Interpretation Comme nts POC ARTERIAL BLOOD GAS PH (t est code = POCPHA) 7.398 7.35-7.45 N POC ARTERIAL BLOOD GAS PCO2 (test code = RNAZBF0C) 36.4 mmHg 35.0-45 N POC TCO2 ARTERIAL (test code = POCTCO2) 23.5 POC ARTERIAL BLOOD GAS PO2 ( test code = ICWAO2P) 83.2 mmHg 80-100.0 N POC HCO3 ARTERIAL (test code = AJUTOO2E) 22.4 MMOL/L 22.0-26.0 N POC BASE EXCESS (test code = POCBEA) -2.4 MMOL/L -4.0-4.0 N POC O2 SATURATION (test code = POCO2S) 96.1 % 90-100 N ABG DELIVERY (test code = KIRBY) Cannula ABG TEMPERATURE (test code = TEMPA) 99.1 F ABG SITE (test code = SITEA) Art Line BASIC METABOLIC [id number] 07:03:00* Test Item Value Reference Range Interpretation Comme nts SODIUM (test code = NA/ABG) 141 mmol/L 134-147 N POTASSIUM (test code = K/ABG) 4.0 mmol/L 3.4-5.0 N CHLORIDE (test code = CL/ABG) 110 mmol/L 100-108 H CREATININE ABG (test code = CREAABG) 0.8 mg/dL 0.8-1.3 N POC IONIZED CALCIUM (test co de = POCCA) 1.17 MMOL/L 1.12-1.32 N POC GLUCOSE (test code = POCGLU) 114 MG/DL 70-110 H HEMOGLOBIN [id number] 07:03:00* Test Item Value Reference Range Interpretation Comme nts HEMOGLOBIN ABG (test code = HGB/ABG) 9.1 G/DL 12.5-16.9 L [id number] 07:03:00* Test Item Value Reference Range Interpretation Comme nts HEMATOCRIT (test code = HCT/ABG) 27 % 37.5-50.7 L POC LACTIC [id number] 07:03:00* Test Item Value Reference Range Interpretation Comme nts POC LACTIC ACID (test code = POCLAC) 0.9 mmol/l 0.9-1.7 N BASIC METABOLIC [id number] 04:12:00* Test Item Value Reference Range Interpretation Comme nts SODIUM (test code = NA/ABG) 141 mmol/L 134-147 N POTASSIUM (test code = K/ABG) 4.2 mmol/L 3.4-5.0 N CHLORIDE (test code = CL/ABG) 107 mmol/L 100-108 N CREATININE ABG (test code = CREAABG) 0.7 mg/dL 0.8-1.3 L POC IONIZED CALCIUM (test co de = POCCA) 1.21 MMOL/L 1.12-1.32 N POC GLUCOSE (test code = POCGLU) 104 MG/DL 70-110 N HEMOGLOBIN [id number] 04:12:00* Test Item Value Reference Range Interpretation Comme nts HEMOGLOBIN ABG (test code = HGB/ABG) 8.7 G/DL 12.5-16.9 L [id number] 04:12:00* Test Item Value Reference Range Interpretation Comme nts HEMATOCRIT (test code = HCT/ABG) 26 % 37.5-50.7 L POC LACTIC [id number] 04:12:00* Test Item Value Reference Range Interpretation Comme nts POC LACTIC ACID (test code = POCLAC) 0.5 mmol/l 0.9-1.7 L POC VENOUS BLOOD [id number] 04:12:00* Test Item Value Reference Range Interpretation Comme nts POC VENOUS BLOOD GAS PH (maribeth t code = POCPHV) 7.365 7.33-7.45 N POC VENOUS BLOOD GAS PCO2 (t est code = RFSEQM4H) 43.0 mmHg 43-47 N POC VENOUS BLOOD GAS PO2 (te st code = GYKES1P) 35.6 mmHG 10-50 N POC TCO2 VENOUS (test code = QYOGGZ9I) 25.8 POC HCO3 VENOUS (test code = DMLUAP8E) 24.5 MMOL/L 22-27 N POC BASE EXCESS VENOUS (test code = POCBEV) -0.8 MMOL/L -4.0-4.0 N POC O2 SATURATION VENOUS (te st code = PCEA1TW) 65.6 % 60-80 N VENOUS BLOOD GAS DELIVERY (t est code = DELV) Cannula VENOUS BLOOD GAS TEMP (test code = TEMPV) 98.8 F VENOUS BLOOD GAS SITE (test code = SITEV) Quang Thrasher BASIC METABOLIC [id number] 04:01:00* Test Item Value Reference Range Interpretation Comme nts SODIUM (test code = NA) 141 mEq/L 134-147 N POTASSIUM (test code = K) 4.3 mEq/L 3.4-5.0 N CHLORIDE (test code = CL) 110 mEq/L 100-108 H CARBON DIOXIDE (test code = CO2) 25 mEq/l 21-33 N ANION GAP (test code = GAP) 10 0-20 N GLUCOSE (test code = GLU) 97 mg/dL 70-110 BLOOD UREA NITROGEN (test code = BUN) 10 mg/dL 7-18 N GLOMERULAR FILTRATION RATE (test code = GFR) 96.4 80-90 H The Glomerular Filtration Rate is a calculated parameterbased on serum Creatinine, patient age and sex. GFR valuesless than 60 mL/min/1.73 square meters are indicative ofChronic Kidney Disease. Values less than 15 mL/min/1.73square meters indicate Kidney failure. The calculation forGFR is based on the CKD-EPI (202) calculation. This formulais race indifferent and is the recommended formula for GFRby the National Kidney Foundation for Adults.The GFR will not calculate if the sex is unknown or if thepatient's age is <18 years. CREATININE (test code = CREAT) 0.8 mg/dL 0.6-1.3 N CALCIUM (test code = CA) 8.3 mg/dL 8.0-10.5 N COMMENTS: POD #1HEPATIC FUNCTION [id number] 04:01:00* Test Item Value Reference Range Interpretation Comme nts TOTAL PROTEIN (test code = PROT) 5.0 g/dL 6.4-8.2 L ALBUMIN (test code = ALB) 3.60 g/dL 3.4-5.0 N BILIRUBIN TOTAL (test code = BILT) 0.60 mg/dL 0.0-1.0 N BILIRUBIN DIRECT (test code = BILD) 0.30 MG/DL 0.0-0.30 N BILIRUBIN INDIRECT (test cod e = BILIND) 0.30 MG/DL SGOT/AST (test code = AST) 46 IUnit/L 15-37 H SGPT/ALT (test code = ALT) 15 IUnit/L 30-65 L ALKALINE PHOSPHATASE TOTAL ( test code = ALKP) 33 IUnit/L 20-125 N COMMENTS: POD #[id number] 04:01:00* Test Item Value Reference Range Interpretation Comme nts MAGNESIUM (test code = MAG) 2.01 mg/dL 1.80-2.40 N COMMENTS: POD #1CBC W/AUTO [id number] 03:26:00* Test Item Value Reference Range Interpretation Comme nts WHITE BLOOD CELL (test code = WBC) 12.7 x10 3/uL 4.5-11.0 H RED BLOOD CELL (test code = RBC) 2.73 x10 6/uL 4.00-5.60 L HEMOGLOBIN (test code = HGB) 8.7 g/dL 12.5-16.9 L HEMATOCRIT (test code = HCT) 25.2 % 37.5-50.7 L MEAN CELL VOLUME (test code = MCV) 92.3 fL 81.0-99.0 N MEAN CELL HGB (test code = MCH) 31.9 pg 27.0-33.0 N MEAN CELL HGB CONCETRATION (test code = MCHC) 34.5 g/dL 33.0-37.0 N RED CELL DISTRIBUTION WIDTH CV (test code = RDW) 13.8 % 11.5-14.5 N RED CELL DISTRIBUTION WIDTH SD (test code = RDW-SD) 47.0 fL 37.0-54.0 N PLATELET COUNT (test code = PLT) 114 x10 3/uL 150-400 L MEAN PLATELET VOLUME (test c ode = MPV) 11.4 fL 7.0-9.0 H NEUTROPHIL % (test code = NT%) 73.9 % 56.0-77.0 N IMMATURE GRANULOCYTE % (test code = IG%) 0.5 % 0.0-2.0 N LYMPHOCYTE % (test code = LY%) 7.6 % 14.0-32.0 L MONOCYTE % (test code = MO%) 17.9 % 4.8-9.0 H EOSINOPHIL % (test code = EO%) 0.0 % 0.3-3.7 L BASOPHIL % (test code = BA%) 0.1 % 0.0-2.0 N NUCLEATED RBC % (test code = NRBC%) 0.0 % 0-0 N NEUTROPHIL # (test code = NT#) 9.38 x10 3/uL 2.0-7.6 H IMMATURE GRANULOCYTE # (test code = IG#) 0.06 x10 3/uL 0.00-0.03 H LYMPHOCYTE # (test code = LY#) 0.96 x10 3/uL 1.0-3.8 L MONOCYTE # (test code = MO#) 2.27 x10 3/uL 0.1-0.8 H EOSINOPHIL # (test code = EO#) 0.00 x10 3/uL 0.0-0.2 N BASOPHIL # (test code = BA#) 0.01 x10 3/uL 0.0-0.2 N NUCLEATED RBC # (test code = NRBC#) 0.00 x10 3/uL 0.0-0.1 N MANUAL DIFF REQUIRED (test c ode = MDIFF) NO POC ARTERIAL BLOOD [id number] 02:29:00* Test Item Value Reference Range Interpretation Comme nts POC ARTERIAL BLOOD GAS PH (t est code = POCPHA) 7.393 7.35-7.45 N POC ARTERIAL BLOOD GAS PCO2 (test code = XKPWDE1G) 39.9 mmHg 35.0-45 N POC TCO2 ARTERIAL (test code = POCTCO2) 25.6 POC ARTERIAL BLOOD GAS PO2 ( test code = ZOQOD9Y) 78.2 mmHg 80-100.0 L POC HCO3 ARTERIAL (test code = PWUQAF4C) 24.3 MMOL/L 22.0-26.0 N POC BASE EXCESS (test code = POCBEA) -0.6 MMOL/L -4.0-4.0 N POC O2 SATURATION (test code = POCO2S) 95.4 % 90-100 N ABG DELIVERY (test code = KIRBY) Cannula ABG TEMPERATURE (test code = TEMPA) 98.6 F ABG SITE (test code = SITEA) Art Line BASIC METABOLIC [id number] 02:29:00* Test Item Value Reference Range Interpretation Comme nts SODIUM (test code = NA/ABG) 141 mmol/L 134-147 N POTASSIUM (test code = K/ABG) 4.3 mmol/L 3.4-5.0 N CHLORIDE (test code = CL/ABG) 108 mmol/L 100-108 N CREATININE ABG (test code = CREAABG) 0.8 mg/dL 0.8-1.3 N POC IONIZED CALCIUM (test co de = POCCA) 1.21 MMOL/L 1.12-1.32 N POC GLUCOSE (test code = POCGLU) 93 MG/DL 70-110 N HEMOGLOBIN [id number] 02:29:00* Test Item Value Reference Range Interpretation Comme nts HEMOGLOBIN ABG (test code = HGB/ABG) 8.7 G/DL 12.5-16.9 L [id number] 02:29:00* Test Item Value Reference Range Interpretation Comme nts HEMATOCRIT (test code = HCT/ABG) 26 % 37.5-50.7 L POC LACTIC [id number] 02:29:00* Test Item Value Reference Range Interpretation Comme nts POC LACTIC ACID (test code = POCLAC) 0.6 mmol/l 0.9-1.7 L GLUCOSE [id number] 00:21:00* Test Item Value Reference Range Interpretation Comme [facility] GLUCOSE BEDSIDE (test code = GLUBED) 120 MG/DL 70-110 H Performed by cer tified coating and baking operator at [facility] - XR CHEST 1 [id number] 00:00:00 [facility] 1955 Sex: M FAX:Ludin John [phone] Indian: St: ADM FAX: Sam Mckoy MD [phone] FAX: Albino Castillo MD [phone] Name: MARY DALY [facility] : 1955 Age/S: 66/M [address] [place] [address] Blvd Unit #: [id number] Loc: [address] [address] Phys: Ludin Mccurdy MD Acct: [id number] Dis Date: Status: ADM IN PHONE #: [phone] Exam Date: 08/03/2022636 FAX #: [phone] Reason: Cardiac Surgery Post Op EXAMS: CPT CODE: [id number] XR CHEST 1 V 67003 PROCEDURE INFORMATION: Exam: XR Chest Exam date and time: 08/03/2022 5:37 AM Age: 66 years old Clinical indication: Other: Cardiac surgery post op TECHNIQUE: Imaging protocol: Radiologic exam of the chest. Views: 1 view. COMPARISON:CR XR CHEST 1V 08/02/2022 3:39 PM FINDINGS: Tubes, catheters and devices: Stable lines and tubes. Lungs: Mild worsening left basilar opacities. The other lung opacities are stable. Pleural spaces: Small left pleural effusion could be present. No definite pneumothorax. Heart/Mediastinum: Stable heartsize. Vasculature: Atherosclerotic calcifications. Bones/joints: Stable. Median sternotomy wires. Partially imaged postoperative change in the cervical spine. IMPRESSION: Mild worsening left basilar opacities. at 0800 Reported and signed by: Allan Diana M.D. CC: Ludin Mccurdy MD; Sam Price MD; Albino Torre MD Technologist: RT Kalli(R) Trnscrd Date/Time/By: 08/03/2022 (0800) : By: [email or web address] Orig Print D/T: S: 08/03/2022 (0800) PAGE 1 Signed ReportGLUCOSE [id number] 22:18:00* Test Item Value Reference Range Interpretation Comme nts GLUCOSE BEDSIDE (test code = GLUBED) 134 MG/DL 70-110 H Performed by cer tified coating and baking operator at [facility] BASIC METABOLIC [id number] 21:06:00* Test Item Value Reference Range Interpretation Comme nts SODIUM (test code = NA) 141 mEq/L 134-147 N POTASSIUM (test code = K) 4.5 mEq/L 3.4-5.0 CHLORIDE (test code = CL) 112 mEq/L 100-108 H CARBON DIOXIDE (test code = CO2) 24 mEq/l 21-33 N ANION GAP (test code = GAP) 10 0-20 N GLUCOSE (test code = GLU) 156 mg/dL 70-110 H BLOOD UREA NITROGEN (test code = BUN) 10 mg/dL 7-18 N GLOMERULAR FILTRATION RATE (test code = GFR) 96.4 80-90 H The Glomerular Filtration Rate is a calculated parameterbased on serum Creatinine, patient age and sex. GFR valuesless than 60 mL/min/1.73 square meters are indicative ofChronic Kidney Disease. Values less than 15 mL/min/1.73square meters indicate Kidney failure. The calculation forGFR is based on the CKD-EPI (2020) calculation. This formulais race indifferent and is the recommended formula for GFRby the National Kidney Foundation for Adults.The GFR will not calculate if the sex is unknown or if thepatient's age is <18 years. CREATININE (test code = CREAT) 0.8 mg/dL 0.6-1.3 N CALCIUM (test code = CA) 8.1 mg/dL 8.0-10.5 N [id number] 21:06:00* Test Item Value Reference Range Interpretation Comme nts MAGNESIUM (test code = MAG) 2.22 mg/dL 1.80-2.40 N GLUCOSE [id number] 20:56:00* Test Item Value Reference Range Interpretation Comme [facility] GLUCOSE BEDSIDE (test code = GLUBED) 143 MG/DL 70-110 H Performed by cer tified coating and baking operator at [facility] CBC W/AUTO [id number] 20:55:00* Test Item Value Reference Range Interpretation Comme nts WHITE BLOOD CELL (test code = WBC) 14.0 x10 3/uL 4.5-11.0 H RED BLOOD CELL (test code = RBC) 2.94 x10 6/uL 4.00-5.60 L HEMOGLOBIN (test code = HGB) 9.4 g/dL 12.5-16.9 L HEMATOCRIT (test code = HCT) 27.0 % 37.5-50.7 L MEAN CELL VOLUME (test code = MCV) 91.8 fL 81.0-99.0 N MEAN CELL HGB (test code = MCH) 32.0 pg 27.0-33.0 N MEAN CELL HGB CONCETRATION (test code = MCHC) 34.8 g/dL 33.0-37.0 N RED CELL DISTRIBUTION WIDTH CV (test code = RDW) 13.6 % 11.5-14.5 N RED CELL DISTRIBUTION WIDTH SD (test code = RDW-SD) 45.9 fL 37.0-54.0 N PLATELET COUNT (test code = PLT) 113 x10 3/uL 150-400 L MEAN PLATELET VOLUME (test code = MPV) 10.9 fL 7.0-9.0 H NEUTROPHIL % (test code = NT%) 80.2 % 56.0-77.0 H IMMATURE GRANULOCYTE % (test code = IG%) 0.4 % 0.0-2.0 N LYMPHOCYTE % (test code = LY%) 3.4 % 14.0-32.0 L MONOCYTE % (test code = MO%) 15.9 % 4.8-9.0 H EOSINOPHIL % (test code = EO%) 0.0 % 0.3-3.7 L BASOPHIL % (test code = BA%) 0.1 % 0.0-2.0 N NUCLEATED RBC % (test code = NRBC%) 0.0 % 0-0 N NEUTROPHIL # (test code = NT#) 11.24 x10 3/uL 2.0-7.6 H IMMATURE GRANULOCYTE # (test code = IG#) 0.06 x10 3/uL 0.00-0.03 H LYMPHOCYTE # (test code = LY#) 0.48 x10 3/uL 1.0-3.8 L MONOCYTE # (test code = MO#) 2.23 x10 3/uL 0.1-0.8 H EOSINOPHIL # (test code = EO#) 0.00 x10 3/uL 0.0-0.2 N BASOPHIL # (test code = BA#) 0.01 x10 3/uL 0.0-0.2 N NUCLEATED RBC # (test code = NRBC#) 0.00 x10 3/uL 0.0-0.1 N MANUAL DIFF REQUIRED (test code = MDIFF) NO POC ARTERIAL BLOOD [id number] 20:47:00* Test Item Value Reference Range Interpretation Comme nts POC ARTERIAL BLOOD GAS PH (t est code = POCPHA) 7.378 7.35-7.45 N POC ARTERIAL BLOOD GAS PCO2 (test code = HKTCPK3B) 41.7 mmHg 35.0-45 N POC TCO2 ARTERIAL (test code = POCTCO2) 25.9 POC ARTERIAL BLOOD GAS PO2 ( test code = RHTSB4D) 83.4 mmHg 80-100.0 N POC HCO3 ARTERIAL (test code = OIQUHH6T) 24.6 MMOL/L 22.0-26.0 N POC BASE EXCESS (test code = POCBEA) -0.6 MMOL/L -4.0-4.0 N POC O2 SATURATION (test code = POCO2S) 96.1 % 90-100 N ABG DELIVERY (test code = KIRBY) Cannula ABG TEMPERATURE (test code = TEMPA) 98.2 F ABG SITE (test code = SITEA) Art Line BASIC METABOLIC [id number] 20:47:00* Test Item Value Reference Range Interpretation Comme nts SODIUM (test code = NA/ABG) 140 mmol/L 134-147 N POTASSIUM (test code = K/ABG) 4.6 mmol/L 3.4-5.0 N CHLORIDE (test code = CL/ABG) 108 mmol/L 100-108 N CREATININE ABG (test code = CREAABG) 0.8 mg/dL 0.8-1.3 N POC IONIZED CALCIUM (test co de = POCCA) 1.29 MMOL/L 1.12-1.32 N POC GLUCOSE (test code = POCGLU) 147 MG/DL 70-110 H HEMOGLOBIN [id number] 20:47:00* Test Item Value Reference Range Interpretation Comme nts HEMOGLOBIN ABG (test code = HGB/ABG) 8.8 G/DL 12.5-16.9 L [id number] 20:47:00* Test Item Value Reference Range Interpretation Comme nts HEMATOCRIT (test code = HCT/ABG) 26 % 37.5-50.7 L POC LACTIC [id number] 20:47:00* Test Item Value Reference Range Interpretation Comme nts POC LACTIC ACID (test code = POCLAC) 1.5 mmol/l 0.9-1.7 N BASIC METABOLIC [id number] 19:54:00* Test Item Value Reference Range Interpretation Comme nts SODIUM (test code = NA/ABG) 141 mmol/L 134-147 N POTASSIUM (test code = K/ABG) 4.3 mmol/L 3.4-5.0 N CHLORIDE (test code = CL/ABG) 108 mmol/L 100-108 N CREATININE ABG (test code = CREAABG) 0.7 mg/dL 0.8-1.3 L POC IONIZED CALCIUM (test co de = POCCA) 1.34 MMOL/L 1.12-1.32 H POC GLUCOSE (test code = POCGLU) 154 MG/DL 70-110 H HEMOGLOBIN [id number] 19:54:00* Test Item Value Reference Range Interpretation Comme nts HEMOGLOBIN ABG (test code = HGB/ABG) 8.6 G/DL 12.5-16.9 L [id number] 19:54:00* Test Item Value Reference Range Interpretation Comme nts HEMATOCRIT (test code = HCT/ABG) 25 % 37.5-50.7 L POC LACTIC [id number] 19:54:00* Test Item Value Reference Range Interpretation Comme nts POC LACTIC ACID (test code = POCLAC) 2.0 mmol/l 0.9-1.7 H POC VENOUS BLOOD [id number] 19:54:00* Test Item Value Reference Range Interpretation Comme nts POC VENOUS BLOOD GAS PH (maribeth t code = POCPHV) 7.334 7.33-7.45 N POC VENOUS BLOOD GAS PCO2 (t est code = BCBWLV1M) 45.9 mmHg 43-47 N POC VENOUS BLOOD GAS PO2 (te st code = OFLQW4G) 38.0 mmHG 10-50 N POC TCO2 VENOUS (test code = JMZFFL4A) 25.9 POC HCO3 VENOUS (test code = NSOGXZ2K) 24.5 MMOL/L 22-27 N POC BASE EXCESS VENOUS (test code = POCBEV) -1.4 MMOL/L -4.0-4.0 N POC O2 SATURATION VENOUS (te st code = ONPF6TI) 68.8 % 60-80 N VENOUS BLOOD GAS DELIVERY (t est code = DELV) Cannula VENOUS BLOOD GAS TEMP (test code = TEMPV) 98.1 F VENOUS BLOOD GAS SITE (test code = SITEV) [place] GLUCOSE [id number] 19:00:00* Test Item Value Reference Range Interpretation Comme nts GLUCOSE BEDSIDE (test code = GLUBED) 109 MG/DL 70-110 N Performed by cer tified coating and baking operator at [facility] BASIC METABOLIC [id number] 16:15:00* Test Item Value Reference Range Interpretation Comme nts SODIUM (test code = NA) 140 mEq/L 134-147 N POTASSIUM (test code = K) 3.7 mEq/L 3.4-5.0 N CHLORIDE (test code = CL) 109 mEq/L 100-108 H CARBON DIOXIDE (test code = CO2) 21 mEq/l 21-33 N ANION GAP (test code = GAP) 14 0-20 N GLUCOSE (test code = GLU) 205 mg/dL 70-110 H BLOOD UREA NITROGEN (test code = BUN) 12 mg/dL 7-18 N GLOMERULAR FILTRATION RATE (test code = GFR) 82.0 80-90 N The Glomerular Filtration Rate is a calculated parameterbased on serum Creatinine, patient age and sex. GFR valuesless than 60 mL/min/1.73 square meters are indicative ofChronic Kidney Disease. Values less than 15 mL/min/1.73square meters indicate Kidney failure. The calculation forGFR is based on the CKD-EPI (202) calculation. This formulais race indifferent and is the recommended formula for GFRby the National Kidney Foundation for Adults.The GFR will not calculate if the sex is unknown or if thepatient's age is <18 years. CREATININE (test code = CREAT) 1.0 mg/dL 0.6-1.3 N CALCIUM (test code = CA) 7.7 mg/dL 8.0-10.5 L COMMENTS: On arrivalComment: On [id number] 16:15:00* Test Item Value Reference Range Interpretation Comme [facility] MAGNESIUM (test code = MAG) 2.25 mg/dL 1.80-2.40 N COMMENTS: On arrivalComment: On arrivalPROTHROMBIN [id number] 16:11:00* Test Item Value Reference Range Interpretation Comme [facility] PROTHROMBIN TIME PATIENT (test code = PTP) 14.4 SECONDS 9.3-12.9 H INTERNATIONAL NORMAL RATIO (test code = INR) 1.3 0.8-1.2 H TARGET INR BY INDICATION Indication INR1. Prophylaxis of venous thrombosis 2.0 - 3.0 (orthopedic surgery), Prophylaxis of venous thrombosis (other than high-risk surgery), Treatment of Deep Vein Thrombosis/Pulmonary Embolism, Prevention of systemic embolism - Tissue heart valves, Acute Myocardial Infarction (to prevent systemic embolism), Valvular heart disease, Atrial Fibrillation, Bileaflet mechanical valve in aortic position.2. Mechanical prosthetic valves (high risk), 2.5 - 3.5 Presence of Lupus Anticoagulant or Antiphospholipid Antibodies, Prevention of systemic embolism - Acute Myocardial Infarction (to prevent recurrent infarct). COMMENTS: On arrivalTHROMBOPLASTIN TIME [id number] 16:11:00* Test Item Value Reference Range Interpretation [facility] THROMBOPLASTIN TIME PARTIAL (test code = PTT) 27.4 Seconds 25.0-39.5 Therapeutic Rang e: 50.4 - 88.3 Seconds Effective 06/06/2018 COMMENTS: On arrivalCBC W/AUTO [id number] 16:00:00* Test Item Value Reference Range Interpretation Comme nts WHITE BLOOD CELL (test code = WBC) 27.2 x10 3/uL 4.5-11.0 H RED BLOOD CELL (test code = RBC) 3.78 x10 6/uL 4.00-5.60 L HEMOGLOBIN (test code = HGB) 12.3 g/dL 12.5-16.9 L HEMATOCRIT (test code = HCT) 34.5 % 37.5-50.7 L MEAN CELL VOLUME (test code = MCV) 91.3 fL 81.0-99.0 N MEAN CELL HGB (test code = MCH) 32.5 pg 27.0-33.0 N MEAN CELL HGB CONCETRATION (test code = MCHC) 35.7 g/dL 33.0-37.0 N RED CELL DISTRIBUTION WIDTH CV (test code = RDW) 13.6 % 11.5-14.5 N RED CELL DISTRIBUTION WIDTH SD (test code = RDW-SD) 46.1 fL 37.0-54.0 N PLATELET COUNT (test code = PLT) 167 x10 3/uL 150-400 N MEAN PLATELET VOLUME (test code = MPV) 11.0 fL 7.0-9.0 H NEUTROPHIL % (test code = NT%) 76.5 % 56.0-77.0 N IMMATURE GRANULOCYTE % (test code = IG%) 0.8 % 0.0-2.0 N LYMPHOCYTE % (test code = LY%) 9.7 % 14.0-32.0 L MONOCYTE % (test code = MO%) 12.3 % 4.8-9.0 H EOSINOPHIL % (test code = EO%) 0.4 % 0.3-3.7 N BASOPHIL % (test code = BA%) 0.3 % 0.0-2.0 N NUCLEATED RBC % (test code = NRBC%) 0.0 % 0-0 N NEUTROPHIL # (test code = NT#) 20.85 x10 3/uL 2.0-7.6 H IMMATURE GRANULOCYTE # (test code = IG#) 0.22 x10 3/uL 0.00-0.03 H LYMPHOCYTE # (test code = LY#) 2.64 x10 3/uL 1.0-3.8 N MONOCYTE # (test code = MO#) 3.34 x10 3/uL 0.1-0.8 H EOSINOPHIL # (test code = EO#) 0.10 x10 3/uL 0.0-0.2 N BASOPHIL # (test code = BA#) 0.07 x10 3/uL 0.0-0.2 N NUCLEATED RBC # (test code = NRBC#) 0.00 x10 3/uL 0.0-0.1 N MANUAL DIFF REQUIRED (test code = MDIFF) NO COMMENTS: [facility] [id number] 15:47:00* Test Item Value Reference Range Interpretation Comme nts POC ARTERIAL BLOOD GAS PH (t est code = POCPHA) 7.300 7.35-7.45 L POC ARTERIAL BLOOD GAS PCO2 (test code = XCMOLH0U) 38.2 mmHg 35.0-45 N POC TCO2 ARTERIAL (test code = POCTCO2) 20.0 POC ARTERIAL BLOOD GAS PO2 ( test code = SGIAZ8A) 93.1 mmHg 80-100.0 N POC HCO3 ARTERIAL (test code = IUKVJI9Q) 18.8 MMOL/L 22.0-26.0 L POC BASE EXCESS (test code = POCBEA) -7.6 MMOL/L -4.0-4.0 L POC O2 SATURATION (test code = POCO2S) 96.4 % 90-100 N BASIC METABOLIC [id number] 15:47:00* Test Item Value Reference Range Interpretation Comme nts SODIUM (test code = NA/ABG) 141 mmol/L 134-147 N POTASSIUM (test code = K/ABG) 3.4 mmol/L 3.4-5.0 N CHLORIDE (test code = CL/ABG) 108 mmol/L 100-108 N CREATININE ABG (test code = CREAABG) 0.9 mg/dL 0.8-1.3 N POC IONIZED CALCIUM (test co de = POCCA) 1.15 MMOL/L 1.12-1.32 N POC GLUCOSE (test code = POCGLU) 187 MG/DL 70-110 H HEMOGLOBIN [id number] 15:47:00* Test Item Value Reference Range Interpretation Comme nts HEMOGLOBIN ABG (test code = HGB/ABG) 11.1 G/DL 12.5-16.9 L [id number] 15:47:00* Test Item Value Reference Range Interpretation Comme nts HEMATOCRIT (test code = HCT/ABG) 33 % 37.5-50.7 L [id number] 14:31:00* Test Item Value Reference Range Interpretation Comme nts ACT-ISTAT (test code = ACTI) 107 SEC 74-137 N Performed by cer tified coating and baking operator at [facility] POC ARTERIAL BLOOD [id number] 14:25:00* Test Item Value Reference Range Interpretation Comme nts POC ARTERIAL BLOOD GAS PH (t est code = POCPHA) 7.391 7.35-7.45 N POC ARTERIAL BLOOD GAS PCO2 (test code = NLHHEU9H) 36.7 mmHg 35.0-45 N POC TCO2 ARTERIAL (test code = POCTCO2) 23.4 POC ARTERIAL BLOOD GAS PO2 ( test code = HXHDA3X) 254.6 mmHg 80-100.0 HH POC HCO3 ARTERIAL (test code = WBMGFT1J) 22.3 MMOL/L 22.0-26.0 N POC BASE EXCESS (test code = POCBEA) -2.4 MMOL/L -4.0-4.0 N POC O2 SATURATION (test code = POCO2S) 99.9 % 90-100 N BASIC METABOLIC [id number] 14:25:00* Test Item Value Reference Range Interpretation Comme nts SODIUM (test code = NA/ABG) 139 mmol/L 134-147 N POTASSIUM (test code = K/ABG) 4.3 mmol/L 3.4-5.0 N CHLORIDE (test code = CL/ABG) 105 mmol/L 100-108 N CREATININE ABG (test code = CREAABG) 0.8 mg/dL 0.8-1.3 N POC IONIZED CALCIUM (test co de = POCCA) 1.26 MMOL/L 1.12-1.32 N POC GLUCOSE (test code = POCGLU) 187 MG/DL 70-110 H HEMOGLOBIN [id number] 14:25:00* Test Item Value Reference Range Interpretation Comme nts HEMOGLOBIN ABG (test code = HGB/ABG) 9.0 G/DL 12.5-16.9 L [id number] 14:25:00* Test Item Value Reference Range Interpretation Comme nts HEMATOCRIT (test code = HCT/ABG) 27 % 37.5-50.7 L POC LACTIC [id number] 14:25:00* Test Item Value Reference Range Interpretation Comme nts POC LACTIC ACID (test code = POCLAC) 2.3 mmol/l 0.9-1.7 H [id number] 13:34:00* Test Item Value Reference Range Interpretation Comme nts ACT-ISTAT (test code = ACTI) 588 SEC 74-137 H Performed by cer tified coating and baking operator at [facility] POC ARTERIAL BLOOD [id number] 13:24:00* Test Item Value Reference Range Interpretation Comme nts POC ARTERIAL BLOOD GAS PH (t est code = POCPHA) 7.383 7.35-7.45 N POC ARTERIAL BLOOD GAS PCO2 (test code = AOMYZZ3I) 42.0 mmHg 35.0-45 N POC TCO2 ARTERIAL (test code = POCTCO2) 26.3 POC ARTERIAL BLOOD GAS PO2 ( test code = KNOVP8M) 345.2 mmHg 80-100.0 HH POC HCO3 ARTERIAL (test code = XKEYWO4T) 25.0 MMOL/L 22.0-26.0 N POC BASE EXCESS (test code = POCBEA) -0.1 MMOL/L -4.0-4.0 N POC O2 SATURATION (test code = POCO2S) 99.9 % 90-100 N BASIC METABOLIC [id number] 13:24:00* Test Item Value Reference Range Interpretation Comme nts SODIUM (test code = NA/ABG) 135 mmol/L 134-147 N POTASSIUM (test code = K/ABG) 5.6 mmol/L 3.4-5.0 H CHLORIDE (test code = CL/ABG) 105 mmol/L 100-108 N CREATININE ABG (test code = CREAABG) 0.8 mg/dL 0.8-1.3 N POC IONIZED CALCIUM (test co de = POCCA) 1.07 MMOL/L 1.12-1.32 L POC GLUCOSE (test code = POCGLU) 184 MG/DL 70-110 H HEMOGLOBIN [id number] 13:24:00* Test Item Value Reference Range Interpretation Comme nts HEMOGLOBIN ABG (test code = HGB/ABG) 9.5 G/DL 12.5-16.9 L [id number] 13:24:00* Test Item Value Reference Range Interpretation Comme nts HEMATOCRIT (test code = HCT/ABG) 28 % 37.5-50.7 L POC LACTIC [id number] 13:24:00* Test Item Value Reference Range Interpretation Comme nts POC LACTIC ACID (test code = POCLAC) 1.2 mmol/l 0.9-1.7 N [id number] 13:03:00* Test Item Value Reference Range Interpretation Comme nts ACT-ISTAT (test code = ACTI) 666 SEC 74-137 H Performed by cer rowena coating and baking operator at [facility] POC ARTERIAL BLOOD [id number] 12:47:00* Test Item Value Reference Range Interpretation Comme nts POC ARTERIAL BLOOD GAS PH (t est code = POCPHA) 7.404 7.35-7.45 N POC ARTERIAL BLOOD GAS PCO2 (test code = YUNYCQ6I) 41.3 mmHg 35.0-45 N POC TCO2 ARTERIAL (test code = POCTCO2) 27.1 POC ARTERIAL BLOOD GAS PO2 ( test code = WFYVY1J) 417.5 mmHg 80-100.0 HH POC HCO3 ARTERIAL (test code = ZKODII6T) 25.8 MMOL/L 22.0-26.0 N POC BASE EXCESS (test code = POCBEA) 1.0 MMOL/L -4.0-4.0 N POC O2 SATURATION (test code = POCO2S) 100.0 % 90-100 N BASIC METABOLIC [id number] 12:47:00* Test Item Value Reference Range Interpretation Comme nts SODIUM (test code = NA/ABG) 137 mmol/L 134-147 N POTASSIUM (test code = K/ABG) 5.1 mmol/L 3.4-5.0 H CHLORIDE (test code = CL/ABG) 104 mmol/L 100-108 N CREATININE ABG (test code = CREAABG) 0.7 mg/dL 0.8-1.3 L POC IONIZED CALCIUM (test co de = POCCA) 1.03 MMOL/L 1.12-1.32 L POC GLUCOSE (test code = POCGLU) 142 MG/DL 70-110 H HEMOGLOBIN [id number] 12:47:00* Test Item Value Reference Range Interpretation Comme nts HEMOGLOBIN ABG (test code = HGB/ABG) 9.7 G/DL 12.5-16.9 L [id number] 12:47:00* Test Item Value Reference Range Interpretation Comme nts HEMATOCRIT (test code = HCT/ABG) 28 % 37.5-50.7 L POC LACTIC [id number] 12:47:00* Test Item Value Reference Range Interpretation Comme nts POC LACTIC ACID (test code = POCLAC) 0.6 mmol/l 0.9-1.7 L [id number] 12:32:00* Test Item Value Reference Range Interpretation Comme nts ACT-ISTAT (test code = ACTI) 486 SEC 74-137 H Performed by cer tified coating and baking operator at [facility] [id number] 12:17:00* Test Item Value Reference Range Interpretation Comme nts ACT-ISTAT (test code = ACTI) 407 SEC 74-137 H Performed by cer tified coating and baking operator at [facility] POC ARTERIAL BLOOD [id number] 12:13:00* Test Item Value Reference Range Interpretation Comme nts POC ARTERIAL BLOOD GAS PH (t est code = POCPHA) 7.338 7.35-7.45 L POC ARTERIAL BLOOD GAS PCO2 (test code = CTDXFM7L) 42.3 mmHg 35.0-45 N POC TCO2 ARTERIAL (test code = POCTCO2) 24.1 POC ARTERIAL BLOOD GAS PO2 ( test code = APIBL3P) 453.7 mmHg 80-100.0 HH POC HCO3 ARTERIAL (test code = GFBPPI5R) 22.8 MMOL/L 22.0-26.0 N POC BASE EXCESS (test code = POCBEA) -3.0 MMOL/L -4.0-4.0 N POC O2 SATURATION (test code = POCO2S) 100.0 % 90-100 N BASIC METABOLIC [id number] 12:13:00* Test Item Value Reference Range Interpretation Comme nts SODIUM (test code = NA/ABG) 137 mmol/L 134-147 N POTASSIUM (test code = K/ABG) 4.0 mmol/L 3.4-5.0 N CHLORIDE (test code = CL/ABG) 104 mmol/L 100-108 N CREATININE ABG (test code = CREAABG) 0.7 mg/dL 0.8-1.3 L POC IONIZED CALCIUM (test co de = POCCA) 1.15 MMOL/L 1.12-1.32 N POC GLUCOSE (test code = POCGLU) 135 MG/DL 70-110 H HEMOGLOBIN [id number] 12:13:00* Test Item Value Reference Range Interpretation Comme nts HEMOGLOBIN ABG (test code = HGB/ABG) 13.1 G/DL 12.5-16.9 N [id number] 12:13:00* Test Item Value Reference Range Interpretation Comme nts HEMATOCRIT (test code = HCT/ABG) 38 % 37.5-50.7 N POC LACTIC [id number] 12:13:00* Test Item Value Reference Range Interpretation Comme nts POC LACTIC ACID (test code = POCLAC) < 0.3 mmol/l 0.9-1.7 L [id number] 10:48:00* Test Item Value Reference Range Interpretation Comme nts ACT-ISTAT (test code = ACTI) 137 SEC 74-137 N Performed by cer tified coating and baking operator at [facility] POC ARTERIAL BLOOD [id number] 10:41:00* Test Item Value Reference Range Interpretation Comme nts POC ARTERIAL BLOOD GAS PH (t est code = POCPHA) 7.361 7.35-7.45 N POC ARTERIAL BLOOD GAS PCO2 (test code = MCPBUB1J) 42.7 mmHg 35.0-45 N POC TCO2 ARTERIAL (test code = POCTCO2) 25.5 POC ARTERIAL BLOOD GAS PO2 ( test code = SSVFT5L) 494.1 mmHg 80-100.0 HH POC HCO3 ARTERIAL (test code = YPHAVZ1G) 24.2 MMOL/L 22.0-26.0 N POC BASE EXCESS (test code = POCBEA) -1.4 MMOL/L -4.0-4.0 N POC O2 SATURATION (test code = POCO2S) 100.0 % 90-100 N BASIC METABOLIC [id number] 10:41:00* Test Item Value Reference Range Interpretation Comme nts SODIUM (test code = NA/ABG) 141 mmol/L 134-147 N POTASSIUM (test code = K/ABG) 4.0 mmol/L 3.4-5.0 N CHLORIDE (test code = CL/ABG) 104 mmol/L 100-108 N CREATININE ABG (test code = CREAABG) 0.8 mg/dL 0.8-1.3 N POC IONIZED CALCIUM (test co de = POCCA) 1.22 MMOL/L 1.12-1.32 N POC GLUCOSE (test code = POCGLU) 158 MG/DL 70-110 H HEMOGLOBIN [id number] 10:41:00* Test Item Value Reference Range Interpretation Comme nts HEMOGLOBIN ABG (test code = HGB/ABG) 16.0 G/DL 12.5-16.9 N [id number] 10:41:00* Test Item Value Reference Range Interpretation Comme nts HEMATOCRIT (test code = HCT/ABG) 47 % 37.5-50.7 N POC LACTIC [id number] 10:41:00* Test Item Value Reference Range Interpretation Comme nts POC LACTIC ACID (test code = POCLAC) < 0.3 mmol/l 0.9-1.7 L CBC W/AUTO [id number] 05:41:00* Test Item Value Reference Range Interpretation Comme nts WHITE BLOOD CELL (test code = WBC) 10.1 x10 3/uL 4.5-11.0 N RED BLOOD CELL (test code = RBC) 4.45 x10 6/uL 4.00-5.60 N HEMOGLOBIN (test code = HGB) 13.9 g/dL 12.5-16.9 N HEMATOCRIT (test code = HCT) 40.4 % 37.5-50.7 N MEAN CELL VOLUME (test code = MCV) 90.8 fL 81.0-99.0 N MEAN CELL HGB (test code = MCH) 31.2 pg 27.0-33.0 N MEAN CELL HGB CONCETRATION (test code = MCHC) 34.4 g/dL 33.0-37.0 N RED CELL DISTRIBUTION WIDTH CV (test code = RDW) 13.6 % 11.5-14.5 N PLATELET COUNT (test code = PLT) 204 x10 3/uL 150-400 N NEUTROPHIL % (test code = NT%) 56.2 % 56.0-77.0 N LYMPHOCYTE % (test code = LY%) 29.5 % 14.0-32.0 N NEUTROPHIL # (test code = NT#) 5.68 x10 3/uL 2.0-7.6 N LYMPHOCYTE # (test code = LY#) 2.98 x10 3/uL 1.0-3.8 N MANUAL DIFF REQUIRED (test c ode = MDIFF) NO RED CELL DISTRIBUTION WIDTH SD (test code = RDW-SD) 45.3 fL 37.0-54.0 N MEAN PLATELET VOLUME (test c ode = MPV) 11.2 fL 7.0-9.0 H IMMATURE GRANULOCYTE % (test code = IG%) 0.4 % 0.0-2.0 N MONOCYTE % (test code = MO%) 10.5 % 4.8-9.0 H EOSINOPHIL % (test code = EO%) 2.9 % 0.3-3.7 N BASOPHIL % (test code = BA%) 0.5 % 0.0-2.0 N NUCLEATED RBC % (test code = NRBC%) 0.0 % 0-0 N IMMATURE GRANULOCYTE # (test code = IG#) 0.04 x10 3/uL 0.00-0.03 H MONOCYTE # (test code = MO#) 1.06 x10 3/uL 0.1-0.8 H EOSINOPHIL # (test code = EO#) 0.29 x10 3/uL 0.0-0.2 H BASOPHIL # (test code = BA#) 0.05 x10 3/uL 0.0-0.2 N NUCLEATED RBC # (test code = NRBC#) 0.00 x10 3/uL 0.0-0.1 N COMMENTS: Daily while on HeparinPROTHROMBIN [id number] 05:29:00* Test Item Value Reference Range Interpretation Comme nts PROTHROMBIN TIME PATIENT (test code = PTP) 11.8 SECONDS 9.3-12.9 N INTERNATIONAL NORMAL RATIO (test code = INR) 1.1 0.8-1.2 N TARGET INR BY INDICATION Indication INR1. Prophylaxis of venous thrombosis 2.0 - 3.0 (orthopedic surgery), Prophylaxis of venous thrombosis (other than high-risk surgery), Treatment of Deep Vein Thrombosis/Pulmonary Embolism, Prevention of systemic embolism - Tissue heart valves, Acute Myocardial Infarction (to prevent systemic embolism), Valvular heart disease, Atrial Fibrillation, Bileaflet mechanical valve in aortic position.2. Mechanical prosthetic valves (high risk), 2.5 - 3.5 Presence of Lupus Anticoagulant or Antiphospholipid Antibodies, Prevention of systemic embolism - Acute Myocardial Infarction (to prevent recurrent infarct). THROMBOPLASTIN TIME [id number] 05:29:00* Test Item Value Reference Range Interpretation Comme nts THROMBOPLASTIN TIME PARTIAL (test code = PTT) 57.6 Seconds 25.0-39.5 H Therapeutic Rang e: 50.4 - 88.3 Seconds Effective 06/06/2018 BASIC METABOLIC [id number] 05:29:00* Test Item Value Reference Range Interpretation Comme nts SODIUM (test code = NA) 137 mEq/L 134-147 N POTASSIUM (test code = K) 4.3 mEq/L 3.4-5.0 N CHLORIDE (test code = CL) 104 mEq/L 100-108 N CARBON DIOXIDE (test code = CO2) 26 mEq/l 21-33 N ANION GAP (test code = GAP) 11 0-20 N GLUCOSE (test code = GLU) 97 mg/dL 70-110 N BLOOD UREA NITROGEN (test code = BUN) 13 mg/dL 7-18 N GLOMERULAR FILTRATION RATE (test code = GFR) 93.0 80-90 H The Glomerular Filtration Rate is a calculated parameterbased on serum Creatinine, patient age and sex. GFR valuesless than 60 mL/min/1.73 square meters are indicative ofChronic Kidney Disease. Values less than 15 mL/min/1.73square meters indicate Kidney failure. The calculation forGFR is based on the CKD-EPI (2020) calculation. This formulais race indifferent and is the recommended formula for GFRby the National Kidney Foundation for Adults.The GFR will not calculate if the sex is unknown or if thepatient's age is <18 years. CREATININE (test code = CREAT) 0.9 mg/dL 0.6-1.3 N CALCIUM (test code = CA) 8.7 mg/dL 8.0-10.5 N LIPID PROFILE (CORONARY RISK)2022-08-02 05:29:00* Test Item Value Reference Range Interpretation Comme nts TRIGLYCERIDES (test code = TRIG) 129 mg/dL 40-150 N CHOLESTEROL (test code = CHOL) 172 mg/dL <200 CHOLESTEROL/HDL RATIO (test code = CHOLHDL) 4.33 RATIO 3.43-4.97 N RISK ASSOCIATED WITH CHOL/HDL RATIOS: RISK MALE FEMALE1/2 AVERAGE 3.43 3.27AVERAGE 4.97 4.442X AVERAGE 9.55 7.053X AVERAGE 23.39 11.04 NOTE THAT THE REFERENCE VALUE IS RELATEDTO RISK LEVELS RECOMMENDED BY THE NATL.HEART, LUNG, AND BLOOD INST. HDL CHOLESTEROL (test code = HDL) 39.7 mg/dL 32-72 N LIPOPROTEIN LDL (test code = LDL) 129.0 mg/dL 0-100 H <100 [id number] 0-129 NEAR OPTIMAL/ABOVE [id number] HIGH>NQ=792 VERY HIGH*Guidelines provided by the National Cholesterol EducationProgram Adult Treatment Panel III - XR CHEST 1 [id number] 00:00:00 [facility] 1955 Sex: M FAX:Ludin John [phone] Indian: St: ADM FAX: Sam Mckoy MD [phone] FAX: Albino Castillo MD [phone] Name: MARY DALY [facility] : 1955 Age/S: 66/M [address] [place] [address] Blvd Unit #: [id number] Loc: G.2207 [place] [address] Phys: Ludin Mccurdy MD Acct: [id number] Dis Date: Status: ADM IN PHONE #: [phone] Exam Date: 08/02/20221455 FAX #: [phone] Reason: COUNT EXAMS: CPT CODE: [id number] XR CHEST 1 V 25374 PROCEDURE INFORMATION: Exam: XR Chest Exam date a nd time: 08/02/2022 2:37 PM Age: 66 years old Clinical indication: Device placement; Other: Count; () TECHNIQUE: Imaging protocol: Radiologic exam of the chest. Views: 1 view. COMPARISON: CT CHEST W/OCONTRAST 07/28/2022 12:46 PM FINDINGS: Tubes, catheters and [...] No retained surgical needle is seen. at 1506 Reported and signed by: Gilmer Childs M.D. CC: Ludin Mccurdy MD; Sam Price MD; Albino Torre MD Technologist: Faina Catsellon, RT(R); Aleah Pillai RT(R) Trncord Date/Time/By: 08/02/2022 (1504) : By: [email or web address] Orig Print D/T: S: 08/02/2022 (8484) PAGE 1 Signed Report- XR CHEST 1 [id number] 00:00:00 [facility] 1955 Sex: M FAX:Ludin John [phone] Indian: St: ADM FAX: Sam Mckoy MD [phone] FAX: Albino Castillo MD [phone] Name: MARY DALY : 1955 Age/S: 66/M [address] [place] [address] Unit #: [id number] Loc: Gi[address]omo[address] [place] [address] Phys: Ludin Mccurdy MD Acct: [id number] DisDate: Status: ADM IN PHONE #: [phone] Exam Date: 08/02/2022 1600 FAX #: [phone] Reason: Cardiac Surgery Post Op EXAMS: CPT CODE: [id number] XR CHEST 1 V [id number] PROCEDURE INFORMATION: Exam: XR Chest Exam date and time: 08/02/2022 3:39 PM Age: 66 years old Clinical indication: Other: Cardiacsurgery post op TECHNIQUE: Imaging protocol: Radiologic exam of the chest. Views: 1 view. COMPARISON: CR XR CHEST 1V 08/02/2022 2:37 PM FINDINGS: Lungs: There is vascular congestion with opacity at the left lung base. A right IJ Nerstrand-Anna Marie catheter tip projects overlying the central mediastinum. A left chest tube is present. Pleural spaces: Unremarkable. No pleural effusion. No pneumothorax. Heart/Mediastinum: The cardiac silhouette is enlarged. Previous midline sternotomy. Bones/joints: ACDF. IMPRESSION: Postoperative change with vascular congestion and opacity at the lung base. at 1656 Reported and signed by: Remedios Ortega CC: Ludin Mccurdy MD; Sam Price MD; Albino Torre MD Technologist: RT Earl(R) Trnscrd Date/Time/By: 08/02/2022 (1655) : By: RedO Orig Print D/T: S: 08/02/2022 (1656) PAGE 1 Signed ReportTHROMBOPLASTIN TIME [id number] 07:07:00* Test Item Value Reference Range Interpretation Comme nts THROMBOPLASTIN TIME PARTIAL (test code = PTT) 58.7 Seconds 25.0-39.5 H Therapeutic Rang e: 50.4 - 88.3 Seconds Effective 06/06/2018 BASIC METABOLIC [id number] 04:45:00* Test Item Value Reference Range Interpretation Comme nts SODIUM (test code = NA) 138 mEq/L 134-147 N POTASSIUM (test code = K) 4.3 mEq/L 3.4-5.0 N CHLORIDE (test code = CL) 108 mEq/L 100-108 N CARBON DIOXIDE (test code = CO2) 26 mEq/l 21-33 N ANION GAP (test code = GAP) 8 0-20 N GLUCOSE (test code = GLU) 98 mg/dL 70-110 N BLOOD UREA NITROGEN (test code = BUN) 11 mg/dL 7-18 N GLOMERULAR FILTRATION RATE (test code = GFR) 93.0 80-90 H The Glomerular Filtration Rate is a calculated parameterbased on serum Creatinine, patient age and sex. GFR valuesless than 60 mL/min/1.73 square meters are indicative ofChronic Kidney Disease. Values less than 15 mL/min/1.73square meters indicate Kidney failure. The calculation forGFR is based on the CKD-EPI (202) calculation. This formulais race indifferent and is the recommended formula for GFRby the National Kidney Foundation for Adults.The GFR will not calculate if the sex is unknown or if thepatient's age is <18 years. CREATININE (test code = CREAT) 0.9 mg/dL 0.6-1.3 N CALCIUM (test code = CA) 8.6 mg/dL 8.0-10.5 N [id number] 04:45:00* Test Item Value Reference Range Interpretation Comme nts PHOSPHOROUS (test code = PHOS) 3.7 MG/DL 2.5-4.9 N [id number] 04:45:00* Test Item Value Reference Range Interpretation Comme nts MAGNESIUM (test code = MAG) 1.96 mg/dL 1.80-2.40 N CBC W/AUTO [id number] 04:30:00* Test Item Value Reference Range Interpretation Comme nts WHITE BLOOD CELL (test code = WBC) 10.1 x10 3/uL 4.5-11.0 N RED BLOOD CELL (test code = RBC) 4.51 x10 6/uL 4.00-5.60 N HEMOGLOBIN (test code = HGB) 14.4 g/dL 12.5-16.9 N HEMATOCRIT (test code = HCT) 40.4 % 37.5-50.7 N MEAN CELL VOLUME (test code = MCV) 89.6 fL 81.0-99.0 N MEAN CELL HGB (test code = MCH) 31.9 pg 27.0-33.0 N MEAN CELL HGB CONCETRATION (test code = MCHC) 35.6 g/dL 33.0-37.0 N RED CELL DISTRIBUTION WIDTH CV (test code = RDW) 13.6 % 11.5-14.5 N PLATELET COUNT (test code = PLT) 220 x10 3/uL 150-400 N NEUTROPHIL % (test code = NT%) 58.6 % 56.0-77.0 N LYMPHOCYTE % (test code = LY%) 29.2 % 14.0-32.0 N NEUTROPHIL # (test code = NT#) 5.90 x10 3/uL 2.0-7.6 N LYMPHOCYTE # (test code = LY#) 2.94 x10 3/uL 1.0-3.8 N MANUAL DIFF REQUIRED (test c ode = MDIFF) NO RED CELL DISTRIBUTION WIDTH SD (test code = RDW-SD) 44.8 fL 37.0-54.0 N MEAN PLATELET VOLUME (test c ode = MPV) 10.9 fL 7.0-9.0 H IMMATURE GRANULOCYTE % (test code = IG%) 0.2 % 0.0-2.0 N MONOCYTE % (test code = MO%) 9.5 % 4.8-9.0 H EOSINOPHIL % (test code = EO%) 2.1 % 0.3-3.7 N BASOPHIL % (test code = BA%) 0.4 % 0.0-2.0 N NUCLEATED RBC % (test code = NRBC%) 0.0 % 0-0 N IMMATURE GRANULOCYTE # (test code = IG#) 0.02 x10 3/uL 0.00-0.03 N MONOCYTE # (test code = MO#) 0.96 x10 3/uL 0.1-0.8 H EOSINOPHIL # (test code = EO#) 0.21 x10 3/uL 0.0-0.2 H BASOPHIL # (test code = BA#) 0.04 x10 3/uL 0.0-0.2 N NUCLEATED RBC # (test code = NRBC#) 0.00 x10 3/uL 0.0-0.1 N COMMENTS: Daily while on HeparinTHROMBOPLASTIN TIME [id number] 01:08:00* Test Item Value Reference Range Interpretation Comme nts THROMBOPLASTIN TIME PARTIAL (test code = PTT) 58.9 Seconds 25.0-39.5 H Therapeutic Rang e: 50.4 - 88.3 Seconds Effective 06/06/2018 PLT RESPONSE TO [id number] 18:44:00* Test Item Value Reference Range Interpretation Comme nts PLT RESPONSE TO PLAVIX (test code = PLAVRES) 191 PRU 182-335 N Values <18 0 PRU are specific evidence of a P2Y12 inhibitoreffect. Testing can only be performed if patient sample values are within the following ranges: Hematocrit 33-52%, Platelet Count 119,000-502,000/uL. Patient values outside of theseranges will be rejected by our instrumentation. THROMBOPLASTIN TIME [id number] 18:26:00* Test Item Value Reference Range Interpretation Comme nts THROMBOPLASTIN TIME PARTIAL (test code = PTT) 81.9 Seconds 25.0-39.5 H Therapeutic Rang e: 50.4 - 88.3 Seconds Effective 06/06/2018 COMMENTS: DRAW PTT 6 HOURS AFTER INITIATION OF HEPARINPROTHROMBIN [id number] 10:52:00* Test Item Value Reference Range Interpretation Comme nts PROTHROMBIN TIME PATIENT (test code = PTP) 11.1 SECONDS 9.3-12.9 N INTERNATIONAL NORMAL RATIO (test code = INR) 1.0 0.8-1.2 N TARGET INR BY INDICATION Indication INR1. Prophylaxis of venous thrombosis 2.0 - 3.0 (orthopedic surgery), Prophylaxis of venous thrombosis (other than high-risk surgery), Treatment of Deep Vein Thrombosis/Pulmonary Embolism, Prevention of systemic embolism - Tissue heart valves, Acute Myocardial Infarction (to prevent systemic embolism), Valvular heart disease, Atrial Fibrillation, Bileaflet mechanical valve in aortic position.2. Mechanical prosthetic valves (high risk), 2.5 - 3.5 Presence of Lupus Anticoagulant or Antiphospholipid Antibodies, Prevention of systemic embolism - Acute Myocardial Infarction (to prevent recurrent infarct). COMMENTS: IF NOT ALREADY DONE WITHIN LAST 24 HOURSTHROMBOPLASTIN TIME PARTIAL 2022-07-31 10:52:00* Test Item Value Reference Range Interpretation Comme nts THROMBOPLASTIN TIME PARTIAL (test code = PTT) 31.4 Seconds 25.0-39.5 N Therapeutic Rang e: 50.4 - 88.3 Seconds Effective 06/06/2018 COMMENTS: IF NOT ALREADY DONE WITHIN LAST 24 HOURSCBC W/AUTO [id number] 10:38:00* Test Item Value Reference Range Interpretation Comme nts WHITE BLOOD CELL (test code = WBC) 10.6 x10 3/uL 4.5-11.0 N RED BLOOD CELL (test code = RBC) 4.79 x10 6/uL 4.00-5.60 N HEMOGLOBIN (test code = HGB) 15.5 g/dL 12.5-16.9 N HEMATOCRIT (test code = HCT) 43.3 % 37.5-50.7 N MEAN CELL VOLUME (test code = MCV) 90.4 fL 81.0-99.0 N MEAN CELL HGB (test code = MCH) 32.4 pg 27.0-33.0 N MEAN CELL HGB CONCETRATION (test code = MCHC) 35.8 g/dL 33.0-37.0 N RED CELL DISTRIBUTION WIDTH CV (test code = RDW) 13.7 % 11.5-14.5 N RED CELL DISTRIBUTION WIDTH SD (test code = RDW-SD) 45.9 fL 37.0-54.0 N PLATELET COUNT (test code = PLT) 248 x10 3/uL 150-400 N MEAN PLATELET VOLUME (test c ode = MPV) 10.6 fL 7.0-9.0 H NEUTROPHIL % (test code = NT%) 59.3 % 56.0-77.0 N IMMATURE GRANULOCYTE % (test code = IG%) 0.4 % 0.0-2.0 N LYMPHOCYTE % (test code = LY%) 25.7 % 14.0-32.0 N MONOCYTE % (test code = MO%) 11.8 % 4.8-9.0 H EOSINOPHIL % (test code = EO%) 2.2 % 0.3-3.7 N BASOPHIL % (test code = BA%) 0.6 % 0.0-2.0 N NUCLEATED RBC % (test code = NRBC%) 0.0 % 0-0 N NEUTROPHIL # (test code = NT#) 6.30 x10 3/uL 2.0-7.6 N IMMATURE GRANULOCYTE # (test code = IG#) 0.04 x10 3/uL 0.00-0.03 H LYMPHOCYTE # (test code = LY#) 2.73 x10 3/uL 1.0-3.8 N MONOCYTE # (test code = MO#) 1.25 x10 3/uL 0.1-0.8 H EOSINOPHIL # (test code = EO#) 0.23 x10 3/uL 0.0-0.2 H BASOPHIL # (test code = BA#) 0.06 x10 3/uL 0.0-0.2 N NUCLEATED RBC # (test code = NRBC#) 0.00 x10 3/uL 0.0-0.1 N MANUAL DIFF REQUIRED (test c ode = MDIFF) NO COMMENTS: IF NOT ALREADY DONE WITHIN LAST 24 HOURSB-TYPE NATRIURETIC PEPTIDE 2022-07-30 03:45:00* Test Item Value Reference Range Interpretation Comme nts B-TYPE NATRIURETIC PEPTIDE ( test code = BNP) 54.0 PG/ML 0-100 N COMPREHENSIVE METABOLIC [id number] 03:45:00* Test Item Value Reference Range Interpretation Comme nts SODIUM (test code = NA) 137 mEq/L 134-147 N POTASSIUM (test code = K) 4.4 mEq/L 3.4-5.0 N CHLORIDE (test code = CL) 107 mEq/L 100-108 N CARBON DIOXIDE (test code = CO2) 23 mEq/l 21-33 N ANION GAP (test code = GAP) 11 0-20 N GLUCOSE (test code = GLU) 99 mg/dL 70-110 N BLOOD UREA NITROGEN (test code = BUN) 11 mg/dL 7-18 GLOMERULAR FILTRATION RATE (test code = GFR) 93.0 80-90 H The Glomerular Filtration Rate is a calculated parameterbased on serum Creatinine, patient age and sex. GFR valuesless than 60 mL/min/1.73 square meters are indicative ofChronic Kidney Disease. Values less than 15 mL/min/1.73square meters indicate Kidney failure. The calculation forGFR is based on the CKD-EPI (202) calculation. This formulais race indifferent and is the recommended formula for GFRby the National Kidney Foundation for Adults.The GFR will not calculate if the sex is unknown or if thepatient's age is <18 years. CREATININE (test code = CREAT) 0.9 mg/dL 0.6-1.3 N TOTAL PROTEIN (test code = PROT) 6.6 g/dL 6.4-8.2 N ALBUMIN (test code = ALB) 3.70 g/dL 3.4-5.0 N CALCIUM (test code = CA) 9.0 mg/dL 8.0-10.5 N BILIRUBIN TOTAL (test code = BILT) 0.40 mg/dL 0.0-1.0 SGOT/AST (test code = AST) 21 IUnit/L 15-37 N SGPT/ALT (test code = ALT) 23 IUnit/L 30-65 L ALKALINE PHOSPHATASE TOTAL (test code = ALKP) 66 IUnit/L 20-125 N COVID 19 Asymptomatic IH [id number] 03:42:00* Test Item Value Reference Range Interpretation Comme nts COVID 19 Asymptomatic IH AG (test code = COVNONPUIAG) Negative Negative A negative resul t is presumptive and should be confirmedwith an FDA authorized molecular assay, if necessary forpatient management.A positive result does not rule out co-infections withother pathogens.This test detects both viable (live) and non-viable,SARS-CoV, and SARS-CoV-2. Test performance depends on theamount of virus (antigen) in the sample.This test has not been FDA cleared or approved; the test hasbeen authorized by FDA under an Emergency Use Authorization(EUA) for use by laboratories certified under the CLIA thatmeet the requirements to perform moderate, high or waivedcomplexity tests. PLT RESPONSE TO [id number] 03:32:00* Test Item Value Reference Range Interpretation Comme nts PLT RESPONSE TO PLAVIX (test code = PLAVRES) 157 PRU 182-335 L Values <18 0 PRU are specific evidence of a P2Y12 inhibitoreffect. Testing can only be performed if patient sample values are within the following ranges: Hematocrit 33-52%, Platelet Count 119,000-502,000/uL. Patient values outside of theseranges will be rejected by our instrumentation. PROTHROMBIN [id number] 03:31:00* Test Item Value Reference Range Interpretation Comme nts PROTHROMBIN TIME PATIENT (test code = PTP) 11.2 SECONDS 9.3-12.9 N INTERNATIONAL NORMAL RATIO (test code = INR) 1.0 0.8-1.2 N TARGET INR BY INDICATION Indication INR1. Prophylaxis of venous thrombosis 2.0 - 3.0 (orthopedic surgery), Prophylaxis of venous thrombosis (other than high-risk surgery), Treatment of Deep Vein Thrombosis/Pulmonary Embolism, Prevention of systemic embolism - Tissue heart valves, Acute Myocardial Infarction (to prevent systemic embolism), Valvular heart disease, Atrial Fibrillation, Bileaflet mechanical valve in aortic position.2. Mechanical prosthetic valves (high risk), 2.5 - 3.5 Presence of Lupus Anticoagulant or Antiphospholipid Antibodies, Prevention of systemic embolism - Acute Myocardial Infarction (to prevent recurrent infarct). THROMBOPLASTIN TIME [id number] 03:31:00* Test Item Value Reference Range Interpretation Comme nts THROMBOPLASTIN TIME PARTIAL (test code = PTT) 28.3 Seconds 25.0-39.5 N Therapeutic Rang e: 50.4 - 88.3 Seconds Effective 06/06/2018 CBC W/AUTO [id number] 03:21:00* Test Item Value Reference Range Interpretation Comme nts WHITE BLOOD CELL (test code = WBC) 11.6 x10 3/uL 4.5-11.0 H RED BLOOD CELL (test code = RBC) 4.62 x10 6/uL 4.00-5.60 N HEMOGLOBIN (test code = HGB) 14.7 g/dL 12.5-16.9 N HEMATOCRIT (test code = HCT) 41.8 % 37.5-50.7 N MEAN CELL VOLUME (test code = MCV) 90.5 fL 81.0-99.0 N MEAN CELL HGB (test code = MCH) 31.8 pg 27.0-33.0 N MEAN CELL HGB CONCETRATION (test code = MCHC) 35.2 g/dL 33.0-37.0 N RED CELL DISTRIBUTION WIDTH CV (test code = RDW) 14.0 % 11.5-14.5 N RED CELL DISTRIBUTION WIDTH SD (test code = RDW-SD) 47.1 fL 37.0-54.0 N PLATELET COUNT (test code = PLT) 248 x10 3/uL 150-400 N MEAN PLATELET VOLUME (test c ode = MPV) 11.0 fL 7.0-9.0 H NEUTROPHIL % (test code = NT%) 57.3 % 56.0-77.0 N IMMATURE GRANULOCYTE % (test code = IG%) 0.3 % 0.0-2.0 N LYMPHOCYTE % (test code = LY%) 29.6 % 14.0-32.0 N MONOCYTE % (test code = MO%) 11.0 % 4.8-9.0 H EOSINOPHIL % (test code = EO%) 1.4 % 0.3-3.7 N BASOPHIL % (test code = BA%) 0.4 % 0.0-2.0 N NUCLEATED RBC % (test code = NRBC%) 0.0 % 0-0 N NEUTROPHIL # (test code = NT#) 6.63 x10 3/uL 2.0-7.6 N IMMATURE GRANULOCYTE # (test code = IG#) 0.04 x10 3/uL 0.00-0.03 H LYMPHOCYTE # (test code = LY#) 3.43 x10 3/uL 1.0-3.8 N MONOCYTE # (test code = MO#) 1.28 x10 3/uL 0.1-0.8 H EOSINOPHIL # (test code = EO#) 0.16 x10 3/uL 0.0-0.2 N BASOPHIL # (test code = BA#) 0.05 x10 3/uL 0.0-0.2 N NUCLEATED RBC # (test code = NRBC#) 0.00 x10 3/uL 0.0-0.1 N MANUAL DIFF REQUIRED (test c ode = MDIFF) NO - CTA [id number] 00:00:00 [facility] ALEAH BLACKSTONEName: MARY DALY : 1955 Sex: M Name: MARY DALY [facility] Aleah Powell : 1955 Age/S: 66 / M [address] [place] [address] Blvd Unit #: [id number] Loc: [facility] [place] [id number] Phys: JinFrieda ANESTHESIOLOGIST Acct: [id number] Dis Date: Status: ADM INPHONE #: [phone] Exam Date: 07/29/20221703 FAX #: [phone] Reason: temporal arteritis EXAMS: CPT CODE: [id number] CTA HEAD 11392 PROCEDURE INFORMATION: Exam: CTA Head With Contrast, Arteriogr aphy Exam date and time: 07/29/2022 4:55 PM [...] clinical indication); or iterative reconstruction. Contrast material: [id number]; Contrast volume: 100 ml; Contrast route: INTRAVENOUS [...] cerebral artery: Unremarkable course and patency. No occlusionor significant stenosis. No aneurysm. Left anterior cerebral artery: Unremarkable course and patency. Azygous A2 and A3 segments. No occlusion or significant stenosis. No aneurysm. Anterior communicating artery: Unremarkable patency POSTERIOR CIRCULATION: Right vertebral artery: Unremarkable courseand patency. No occlusion or significant stenosis. No aneurysm. PAGE 1 Signed Report (CONTINUED) Name: [facility] [place] : 1955 Age/S: 66 / M [address] [place] [address] Blvd Unit #: [id number] Loc: [place] [address] Phys: Frieda Abdi NP Acct: [id number] Dis Date: Status: ADMIN PHONE #: [phone] Exam Date: 07/29/20221703 FAX #: [phone] Reason: temporal arteritisEXAMS: CPT CODE: [id number] CTA HEAD 71622 (Continued) Left vertebral artery: Unremarkable course and patency. No occlusion or significant stenosis. No aneurysm. Basilar artery: Unremarkable course and patency. No occlusion or significant stenosis. No aneurysm. Right posterior cerebral artery: configuration Unremarkable course and patency. No occlusion or significant stenosis. No aneurysm.Left posterior cerebral artery: Unremarkable course and patency. No occlusion or significant stenosis. No aneurysm. Dural venous sinuses: Unremarkably patent. Brain: No definite mass, mass effect, ormidline shift. Cerebral ventricles: Midline in position, normal caliber. Bones/joints: Unremarkable. No acute fracture. Soft tissues: Unremarkable. IMPRESSION: No flow-limiting stenosis or occlusion along major intracranial arterial vessels. No acute intracranial process nor bony injury PROCEDURE INFORMATION: Exam: CTA Neck With Contrast Exam date and time: 07/29/2022 4:55PM Age: 66 years old Clinical indication: Other: Temporal arteritis TECHNIQUE: Imaging protocol: Computed tomographic angiography of the neck with contrast. 3D rendering (Not supervised by radiologist): MIP and/or 3D reconstructed images were created by the technologist. Radiation optimization: AllCT scans at this facility use at least one of these dose optimization techniques: automated exposure control; mA and/or kV adjustment per patient size (includes targeted exams where dose is matched to clinical indication); or iterative reconstruction. Contrast material: [id number]; Contrast volume: 100 ml; Contrast route: INTRAVENOUS (IV); REPORTING DATA: Count of CT and Cardiac NM exams in prior 12months: This patient has received [address] and 0 known cardiac nuclear medicine studies in the 12months prior to the current study. COMPARISON: US [place] 07/28/2022 10:49 AM FINDINGS: Lung apices: No concerning interstitial process. Visualized PAGE 2 Signed Report (CONTINUED) Name: MARY DALY [place] : 1955 Age/S: 66 / M [address] [place] [address] Blvd Unit #: [id number] Loc: [place] [address] Phys: Frieda Abdi ANESTHESIOLOGIST Acct: [id number] Dis Date: Status: ADM IN PHONE #: [phone] Exam Date: 07/29/20221703 FAX #: [phone] Reason: temporal arteritis EXAMS: CPT CODE: [id number] CTA HEAD 84719 (Continued) portions of central major pulmonary arteries [...] and proximal segment of this artery without flow-limi ting stenosis. No stenosis of the extracranial segment. No dissection or occlusion. Left external carotid artery: Unremarkable course and patency. No occlusion or stenosis of the origin. Right vertebral artery: Unremarkable course and patency. No stenosis. No dissection or occlusion. Left vertebralartery: Unremarkable course and patency. No stenosis. No dissection or occlusion. Soft tissues: Normal. No significant soft tissue swelling. Bones/joints: Unremarkable bony alignment along cervical spine with multilevel degenerative changes could, and prior ACDF in C5 and C6 levels with interbody fusion in the intervening disc level.. IMPRESSION: No flow-limiting stenosis or occlusion along major extracranial arterial vessels.. Electronically Signed by Remedios Bales on 3at 1529 Reported and signed by: Javier Bales M.D. PAGE 3 Signed Report (CONTINUED) Name: MARY DALY : 1955 Age/S: 66 / M [address] [place] [address] Unit #: [id number] Loc: [place] [address] Phys: Frieda Abdi ANESTHESIOLOGIST Acct: [id number] Dis Date: Status: ADM IN PHON E #: [phone] Exam Date: 07/29/20221703 FAX #: [phone] Reason: temporal arteritis EXAMS:CPT CODE: [id number] CTA HEAD 57689 (Continued) CC: Sam Price MD; Albino Torre MD; Frieda Abdi NP Technologist:Katherin Poole, (R)(CT) CTDI: DLP: Trnscb Date/Time: 07/30/2022 (1528) t.[email or web address].AC53 Orig Print D/T: S: 07/30/2022 (1528) PAGE 4 Signed Report- CT ANGIO [id number] 00:00:00 [facility] [place]: [place] : 1955 Sex: M Name: MARY DALY : 1955 Age/S: 66 / M [address] [place], [place] [address]vd Unit #: [id number] Loc: [place] [address] Phys: Frieda Abdi ANESTHESIOLOGIST Acct: [id number] Dis Date: Status: ADM IN PHONE #: [phone] Exam Date: 07/29/2022 170 FAX #: [phone] Reason: temporal arteritis EXAMS: CPT CODE: [id number] CT ANGIO NECK 04107 PROCEDURE INFORMATION: Exam: CTA Head With Contrast, Arteriography Exam date and time: 07/29/2022 4:55 PM Age: 66 years old Clinical indication: Other: Temporal arteritis TECHNIQUE: Imaging protocol: Computed tomographic angiography of the head with contrast. Exam focused on the arteries. 3D rendering (Not supervised by radiologist): MIP and/or 3D reconst ructed images were created by the technologist. Radiation optimization: All CT scans at this facility use at least one of these dose optimization techniques: automated exposure control; mA and/or kV adjustment per patient size (includes targeted exams where dose is matched to clinical indication); or iterative reconstruction. Contrast material: [id number]; Contrast volume: 100 ml; Contrast route: INTRAVENOUS [...] and patency. Intracranial segment is patent with nosignificant stenosis. No aneurysm. Right middle cerebral artery: [...] cerebral artery: Unremarkable course and patency. No occl usion or significant stenosis. No aneurysm. Left anterior cerebral artery: Unremarkable course and patency. Azygous A2 and A3 segments. No occlusion or significant stenosis. No aneurysm. Anterior communicating artery: Unremarkable patency POSTERIOR CIRCULATION: Right vertebral artery: Unremarkablecourse and patency. No occlusion or significant stenosis. No aneurysm. PAGE 1 Signed Report (CONTINUED) Name: MARY DALY [facility] : 1955 Age/S: 66 / M [address] [place], [place] [address]vd Unit #:[id number] Loc: [place] [address] Phys: Frieda Otero ANESTHESIOLOGIST Acct: [id number] Dis Date: Status: ADM IN PHONE #: [phone] Exam Date: 07/29/2022 170 FAX #: [phone] Reason: temporal arteritis EXAMS: CPT CODE: [id number] CT ANGIO NECK 63322 (Continued) Left vertebral artery: Unremarkablecourse and patency. No occlusion or significant stenosis. No aneurysm. Basilar artery: Unremarkablecourse and patency. No occlusion or significant stenosis. [...] No acute intracranial process nor bony injury ==== PROCEDURE INFORMATION: Exam: CTA Neck With Contrast [...] clinical indication); or iterative reconstruction. Contrast material: [id number]; Contrast volume: 100 ml; Contrast route: INTRAVENOUS (IV); REPORTING DATA: Count of CT and Cardiac NM exams inprior 12 months: This patient has received [address] and 0 known cardiac nuclear medicine studies in the 12 months prior to the current study. COMPARISON: US [place] 07/28/2022 10:49 AM FINDINGS: Lung apices: No concerning interstitial process. Visualized PAGE 2 Signed Report (CONTINUED) Name: MARY DALY [place] : 1955 Age/S: 66 / M [address] [place] [address] Unit #: [id number] Loc: [place] [address] Phys: Frieda Otero ANESTHESIOLOGIST Acct: [id number] Dis Date: Status: ADM IN PHONE #: [phone] Exam Date: 07/29/2022 1704 FAX #: [phone] Reason: temporal arteritis EXAMS: CPT CODE: [id number] CT ANGIO NECK 13028 (Continued) portions of central major pulmonaryarteries are patent without filling defect. Widened upper mediastinum compatible with lipomatosis. Great vessels: Unremarkably patent along their proximal segments, and unremarkable takeoff from patent aortic arch. Right common carotid artery: Unremarkable course and patency. No stenosis. No dissection or occlusion. Right internal carotid artery: Unremarkable course and patency. Increased calcification along origin and proximal segment of this artery without flow-limiting stenosis. No stenosisof the extracranial segment. No dissection or occlusion. [...] significant soft tissue swelling. Bones/joints: Unremarkable bony alignmentalong cervical spine with multilevel degenerative changes could, and prior ACDF in C5 and C6 levelswith interbody fusion in the intervening disc level.. IMPRESSION: No flow-limiting stenosis or occlusion along major extracranial arterial vessels.. at 1529 Reported and signed by: Javier Bales M.D. PAGE 3 Signed Report (CONTINUED) Name: MARY DALY [facility] [place] : 1955 Age/S: 66 / M [address] [place] [address] Unit#: [id number] Loc: [place] [address] Phys: Frieda Abdi ANESTHESIOLOGIST Acct: [id number] Dis Date: Status: ADM IN PHONE #: [phone] Exam Date: 07/29/20221703 FAX #: [phone] Reason: temporal arteritis EXAMS: CPT CODE: [id number] CT ANGIO NECK 50423 (Continued) CC: Sam Price MD; Albino Torre MD; Frieda Abdi NP Technologist:RT Mani(R)(CT) CTDI: DLP: Trnscb Date/Time: 07/30/2022 (1528) t.SDR.AC53 Orig Print D/T: S: 07/30/2022 (1528) PAGE 4 Signed ReportCBC W/MANUAL [id number] 11:07:00* Test Item Value Reference Range Interpretation Comme nts WHITE BLOOD CELL (test code = WBC) 16.0 x10 3/uL 4.5-11.0 H RED BLOOD CELL (test code = RBC) 4.27 x10 6/uL 4.00-5.60 N HEMOGLOBIN (test code = HGB) 13.5 g/dL 12.5-16.9 N HEMATOCRIT (test code = HCT) 38.4 % 37.5-50.7 N MEAN CELL VOLUME (test code = MCV) 89.9 fL 81.0-99.0 N MEAN CELL HGB (test code = MCH) 31.6 pg 27.0-33.0 N MEAN CELL HGB CONCETRATION (test code = MCHC) 35.2 g/dL 33.0-37.0 N RED CELL DISTRIBUTION WIDTH CV (test code = RDW) 14.0 % 11.5-14.5 N RED CELL DISTRIBUTION WIDTH SD (test code = RDW-SD) 46.3 fL 37.0-54.0 N PLATELET COUNT (test code = PLT) 233 x10 3/uL 150-400 N MEAN PLATELET VOLUME (test code = MPV) 11.2 fL 7.0-9.0 H BAND NEUTROPHIL (test code = BAND) 0.0 % 0.0-10.0 N ANISOCYTOSIS (test code = ANISO) NORMAL PLATELET ESTIMATE (test code = PLTEST) Adequate THOUSAND ADEQUATE SEGMENTED NEUTROPHILS (test code = SEG) 83.6 % 37-69 H LYMPHOCYTE (test code = LYMPH) 10.9 % 23-55 L MONOCYTE (test code = MON) 5.5 % 0-10 N HGBA1C%2022-07-29 07:10:00* Test Item Value Reference Range Interpretation Comme nts HGBA1C% (test code = HGBA1C%) 6.2 %A1C 4.8-6.0 H COMPREHENSIVE METABOLIC [id number] 04:59:00* Test Item Value Reference Range Interpretation Comme nts SODIUM (test code = NA) 139 mEq/L 134-147 N POTASSIUM (test code = K) 4.2 mEq/L 3.4-5.0 N CHLORIDE (test code = CL) 106 mEq/L 100-108 N CARBON DIOXIDE (test code = CO2) 26 mEq/l 21-33 N ANION GAP (test code = GAP) 12 0-20 N GLUCOSE (test code = GLU) 113 mg/dL 70-110 H BLOOD UREA NITROGEN (test code = BUN) 17 mg/dL 7-18 N GLOMERULAR FILTRATION RATE (test code = GFR) 82.0 80-90 N The Glomerular Filtration Rate is a calculated parameterbased on serum Creatinine, patient age and sex. GFR valuesless than 60 mL/min/1.73 square meters are indicative ofChronic Kidney Disease. Values less than 15 mL/min/1.73square meters indicate Kidney failure. The calculation forGFR is based on the CKD-EPI (2020) calculation. This formulais race indifferent and is the recommended formula for GFRby the National Kidney Foundation for Adults.The GFR will not calculate if the sex is unknown or if thepatient's age is <18 years. CREATININE (test code = CREAT) 1.0 mg/dL 0.6-1.3 N TOTAL PROTEIN (test code = PROT) 6.2 g/dL 6.4-8.2 L ALBUMIN (test code = ALB) 3.40 g/dL 3.4-5.0 N CALCIUM (test code = CA) 9.0 mg/dL 8.0-10.5 N BILIRUBIN TOTAL (test code = BILT) 0.30 mg/dL 0.0-1.0 N SGOT/AST (test code = AST) 16 IUnit/L 15-37 N SGPT/ALT (test code = ALT) 20 IUnit/L 30-65 L ALKALINE PHOSPHATASE TOTAL (test code = ALKP) 61 IUnit/L 20-125 N UA RFLX MICR CULT IF [id number] 20:41:00* Test Item Value Reference Range Interpretation Comme nts UA COLOR (test code = COLU) YELLOW YEL/STRAW UA APPEARANCE (test code = APPU) CLEAR CLEAR UA GLUCOSE DIPSTICK (test co de = DGLUU) NEGATIVE NEGATIVE UA BILIRUBIN DIPSTICK (test code = BILU) NEGATIVE NEGATIVE UA KETONE DIPSTICK (test cod e = KETU) NEGATIVE NEGATIVE UA SPECIFIC GRAVITY (test co de = SGU) 1.017 1.005-1.030 N UA BLOOD DIPSTICK (test code = SOFI) NEGATIVE NEGATIVE UA PH DIPSTICK (test code = SUYAPA) 5.0 5.0-7.0 N UA PROTEIN DIPSTICK (test co de = PROU) NEGATIVE NEGATIVE UA UROBILINIOGEN DIPSTICK (test code = URO) 0.2 mg/dL 0.2-1.0 UA NITRITE DIPSTICK (test co de = YEIMY) NEGATIVE NEGATIVE UA LEUKOCYTE ESTERASE DIPSTI CK (test code = LEUU) NEGATIVE NEGATIVE UA WBC (test code = WBCU) 0-3 WBC/HPF 0-3 UA RBC (test code = RBCU) 0-3 RBC/HPF 0-3 UA WBC NO REFLEX (test code = WBCUCL) 0-3 WBC/HPF 0-3 UA BACTERIA (test code = BACU) NONE SEEN /HPF NONE SEEN UA SQUAMOUS CELLS (test code = SQU) 0-5 /HPF NONE SEEN UA MUCUS (test code = MUCU) TRACE /LPF NONE SEEN Indication for culture: Dysuria/FrequencySpecimen Description: CLEAN CATCH- CT CHEST W/O [id number] 16:57:00 [facility] : 1955 Sex: M Name: MARY DALY : 1955 Age/S: 66 / M [address] [place] [address] Unit #: [id number] Loc: [place] [address] Phys: Rosalind Mendez Physic Acct: [id number] Dis Date: Status: ADM INPHONE #: [phone] Exam Date: 07/28/20221302 FAX #: [phone] Reason: CAD, R/O Stenosis, EXAMS: CPT CODE: [id number] CT CHEST W/O CONTRAST [address] CHEST WITHOUT CONTRAST HISTORY: CAD, R/O S tenosis, TECHNIQUE: Axial CT images were obtained through [...] artery calcification. Otherwise, no significant chest abnormalities. Electronically Signed by Remedios hernandez 07/28/2022 at 1654 Reported and signed by: Titus Choudhary M.D. PAGE 1 Signed Report (CONTINUED) Name: MARY DALY : 1955 Age/S: 66 / M [address] [place] [address] Unit #: [id number] Loc: [place] [address] Phys: Rosalind Mendez Physic Acct: [id number] Dis Date: Status: ADM IN PHONE #: [phone] Exam Date: 07/28/20221302 FAX #: [phone] Reason: CAD, R/O Stenosis,EXAMS: CPT CODE: [id number] CT CHEST W/O CONTRAST [address]7815 (Continued) CC: Sam Price MD; Albino Torre MD; Rosalind Mendez Technologist:Katherin Poole, RT(R)(CT) CTDI: DLP: Trnscb Date/Time: 07/28/2022 (7838) [email or web address].[email or web address].VB7 Orig Print D/T: S: 07/28/2022 (2355) PAGE 2 Signed ReportPLT RESPONSE TO PLAVIX 2022-07-28 10:08:00* Test Item Value Reference Range Interpretation Comme nts PLT RESPONSE TO PLAVIX (test code = PLAVRES) 164 PRU 182-335 L Values <18 0 PRU are specific evidence of a P2Y12 inhibitoreffect. Testing can only be performed if patient sample values are within the following ranges: Hematocrit 33-52%, Platelet Count 119,000-502,000/uL. Patient values outside of theseranges will be rejected by our instrumentation. - DUP VEIN [id number] 00:00:00 [facility] 1955 Sex: M Name: MARY DALY [facility] [place] : 1955 Age/S: 66 / M [address] [facility] Unit #: [id number] Loc: [facility] [place] [address] Phys: Rosalind Mendez Acct: [id number] Dis Date: Status: ADM IN PHONE #: [phone] Exam Date: 07/28/2022 1148 FAX #: [phone] Reason: Bilateral vein mapping.EXAMS: CPT CODE: [id number] [place] [address] PROCEDURE INFORMATION: Exam: US Duplex Lower Extremity Veins; Vein mapping Exam date and time: 07/28/2022 11:04 AM Age: 66 years old Clinical indication: Screening exam; Pre op; Additional info: Bilateral vein mapping. TECHNIQUE: Imaging protocol: Vein mapping performed of the greater saphenous veins bilaterally. Measurements are in the anterior to posterior dimension. No thrombosis of the greater saphenous veins bilaterally. COMPARISON: No relevantprior studies available. Right greater saphenous vein: Proximal thigh 3.0 mm Mid thigh 1.1 mm Distal thigh 1.4 mm Proximal calf 0.8 mm Mid calf 0.5 mm Distal calf 1.7 mm Left greater saphenous vein:Proximal thigh 1.9 mm Mid thigh 1.2 mm Distal thigh 1.1 mm Proximal calf 1.1 mm Mid calf 1.4 mm Distal calf 1.5 mm. Impression: 1. Vein mapping of the greater saphenous veins bilaterally as above. at 1155 Reported and signedby: Kong Marrero M.D. CC: Sam Price MD; Albino Torre MD; Rosalind Mendez Technologist: Evelin Turner RDMS(AB) Trnscb Date/Time: 07/28/2022 (115) Lesli.CS18 Orig Print D/T: S: 07/28/2022 (1155) Probe: PAGE 1 Signed Report- DUP EXTRACRANIAL [id number] 00:00:00 [facility] : 1955 Sex: M Name: MARY DALY [facility] [place] : 1955 Age/S: 66 / M [address] [place] [address] Blvd Unit #: [id number] Loc: [place] [address] Phys: Rosalind Mendez Acct: [id number] Dis Date: Status: ADM IN PHONE #: [phone] Exam Date: 07/28/2022 1144 FAX #: [phone] Reason: CAD, R/O Stenosis, EXAMS: CPT CODE: [id number] [place]UP [place] [address] PROCEDURE INFORMATION: Exam: US Duplex Bilateral Extracranial [...] relevant prior studies available. TECHNIQUE: Walters-scale, color Doppler and spectral Doppler of the carotid arteries was performed. Any reported ICA stenoses i ndirectly reference the distal internal carotid diameter as [...] 1 Signed Report (CONTINUED) Name: MARY DALY [facility] : 1955 Age/S: 66 / M [address] [place] [address] Unit #: [id number] Loc: [place] [address] Phys: Rosalind Mendez Acct: [id number] Dis Date: Status: ADM IN PHONE #: [phone] Exam Date: 07/28/2022 1144 FAX #: [phone] Reason: CAD, R/O Stenosis, EXAMS: CPT CODE: [id number] [place]UP [place] [address] (Continued) ne ar occlusion Near occlusion High, low, or Variable undetectable at 1158 Reported and signed by: Kong Marrero M.D. 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 [facility] - XR CHEST 2 [id number] 00:00:00 [facility] : 1955 Sex: M FAX:Sam Mckoy MD [phone] Indian: St: PRE FAX: Albino Castillo MD [phone] Name: [facility]AL[facility] [place] : 1955 Age/S: 66/M [address] [place] [address] Blvd Unit #: [id number] Loc: [place] [address] Phys: Sam Price MD Acct: [id number] Dis Date: Status: PRE [facility] PHONE #: [phone] ExamDate: 07/23/20223 FAX #: [phone] Reason: PREOP EXAMS: CPT CODE: [id number] XR CHEST 2 V 84963 PROCEDURE INFORMATION: Exam: XR Chest Exam date and time: 07/23/2022 4:05 PM Age: 66 years old Clinical indication: Pre-operative exam; Cardiovascular screening and respiratory screening exam; Additional info: Preop TECHNIQUE: Imaging protocol: Radiologic exam of the chest. Views: 2 views. PA andLateral COMPARISON: No relevant prior studies available. FINDINGS: Lungs: Normal lung volumes. No consolidation. Pleural spaces: No pleural effusion. No pneumothorax. Heart/Mediastinum: The cardiomediastinal silhouette is within normal limits. Pulmonary vasculature is unremarkable. Atherosclerotic c alcification of the aorta. Bones/joints: Fusion hardware the lower cervical spine is partially visualized. No acute osseous abnormality. IMPRESSION: No acute cardiopulmonary disease. at 0717 Reported and signed by: Cindy Reis M.D. CC: Sam Price MD; Albino Torre MD Technologist: RT Earl(R) Trnscrd Date/Time/By: 07/24/2022 (0717) : By: [id number] Orig Print D/T: S: 07/24/2022 (0060) PAGE 1 Signed ReportPROTHROMBIN [id number] 16:55:00* Test Item Value Reference Range Interpretation Comme nts PROTHROMBIN TIME PATIENT (test code = PTP) 10.9 SECONDS 9.3-12.9 N INTERNATIONAL NORMAL RATIO (test code = INR) 1.0 0.8-1.2 N TARGET INR BY INDICATION Indication INR1. Prophylaxis of venous thrombosis 2.0 - 3.0 (orthopedic surgery), Prophylaxis of venous thrombosis (other than high-risk surgery), Treatment of Deep Vein Thrombosis/Pulmonary Embolism, Prevention of systemic embolism - Tissue heart valves, Acute Myocardial Infarction (to prevent systemic embolism), Valvular heart disease, Atrial Fibrillation, Bileaflet mechanical valve in aortic position.2. Mechanical prosthetic valves (high risk), 2.5 - 3.5 Presence of Lupus Anticoagulant or Antiphospholipid Antibodies, Prevention of systemic embolism - Acute Myocardial Infarction (to prevent recurrent infarct). BASIC METABOLIC [id number] 16:51:00* Test Item Value Reference Range Interpretation Comme nts SODIUM (test code = NA) 139 mEq/L 134-147 N POTASSIUM (test code = K) 4.0 mEq/L 3.4-5.0 N CHLORIDE (test code = CL) 106 mEq/L 100-108 N CARBON DIOXIDE (test code = CO2) 25 mEq/l 21-33 N ANION GAP (test code = GAP) 12 0-20 N GLUCOSE (test code = GLU) 125 mg/dL 70-110 H BLOOD UREA NITROGEN (test code = BUN) 10 mg/dL 7-18 N GLOMERULAR FILTRATION RATE (test code = GFR) 93.0 80-90 H The Glomerular Filtration Rate is a calculated parameterbased on serum Creatinine, patient age and sex. GFR valuesless than 60 mL/min/1.73 square meters are indicative ofChronic Kidney Disease. Values less than 15 mL/min/1.73square meters indicate Kidney failure. The calculation forGFR is based on the CKD-EPI (2020) calculation. This formulais race indifferent and is the recommended formula for GFRby the National Kidney Foundation for Adults.The GFR will not calculate if the sex is unknown or if thepatient's age is <18 years. CREATININE (test code = CREAT) 0.9 mg/dL 0.6-1.3 N CALCIUM (test code = CA) 8.9 mg/dL 8.0-10.5 N CBC W/AUTO [id number] 16:43:00* Test Item Value Reference Range Interpretation Comme nts WHITE BLOOD CELL (test code = WBC) 9.3 x10 3/uL 4.5-11.0 N RED BLOOD CELL (test code = RBC) 4.65 x10 6/uL 4.00-5.60 N HEMOGLOBIN (test code = HGB) 14.6 g/dL 12.5-16.9 N HEMATOCRIT (test code = HCT) 42.3 % 37.5-50.7 N MEAN CELL VOLUME (test code = MCV) 91.0 fL 81.0-99.0 N MEAN CELL HGB (test code = MCH) 31.4 pg 27.0-33.0 N MEAN CELL HGB CONCETRATION (test code = MCHC) 34.5 g/dL 33.0-37.0 N RED CELL DISTRIBUTION WIDTH CV (test code = RDW) 13.7 % 11.5-14.5 N RED CELL DISTRIBUTION WIDTH SD (test code = RDW-SD) 46.3 fL 37.0-54.0 N PLATELET COUNT (test code = PLT) 213 x10 3/uL 150-400 N MEAN PLATELET VOLUME (test c ode = MPV) 10.9 fL 7.0-9.0 H NEUTROPHIL % (test code = NT%) 65.3 % 56.0-77.0 N IMMATURE GRANULOCYTE % (test code = IG%) 0.2 % 0.0-2.0 N LYMPHOCYTE % (test code = LY%) 24.2 % 14.0-32.0 N MONOCYTE % (test code = MO%) 7.8 % 4.8-9.0 N EOSINOPHIL % (test code = EO%) 1.7 % 0.3-3.7 N BASOPHIL % (test code = BA%) 0.8 % 0.0-2.0 N NUCLEATED RBC % (test code = NRBC%) 0.0 % 0-0 N NEUTROPHIL # (test code = NT#) 6.05 x10 3/uL 2.0-7.6 N IMMATURE GRANULOCYTE # (test code = IG#) 0.02 x10 3/uL 0.00-0.03 N LYMPHOCYTE # (test code = LY#) 2.24 x10 3/uL 1.0-3.8 N MONOCYTE # (test code = MO#) 0.72 x10 3/uL 0.1-0.8 N EOSINOPHIL # (test code = EO#) 0.16 x10 3/uL 0.0-0.2 N BASOPHIL # (test code = BA#) 0.07 x10 3/uL 0.0-0.2 N NUCLEATED RBC # (test code = NRBC#) 0.00 x10 3/uL 0.0-0.1 N MANUAL DIFF REQUIRED (test c ode = MDIFF) NO Notes Date/Time Note Provider Source [place] [id number] 23:49:38 [address]05-09 23:49:38 Diagnosis Temporal arteritis (CMS/HCC) (HCC) Giant cell arteritis [place] [id number] 23:49:38 [place] [address]-01-08 09:39:49* [place] [address]-01-08 09:39:49 [place] [address]-01-08 09:39:49* 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 No headaches, some fatigue, decrease Prednisone to 2 mg every day. Allergies as of 02/29/2024 - Reviewed 11/30/2023 Allergen Reaction Noted Demerol [meperidine hcl] 08/18/2023 Dexilant [dexlansoprazole] 08/18/2023 Diclofenac 08/18/2023 Dilaudid [hydromorphone] 08/18/2023 Iodine 08/18/2023 Levofloxacin 08/18/2023 Lunesta [eszopiclone] 08/18/2023 has a current medication list which includes the following prescription(s): alfuzosin er, aspirin ec, atorvastatin, benzonatate, clonidine, cyclosporine, finasteride, fluticasone, losartan, metoprolol tartrate, omeprazole, polyethylene glycol (peg) 3350, tadalafil, tramadol, and prednisone. Vitals:02/29/24 0929 BP: 142/75 Pulse: 59 Resp: 16 Temp: 36.2 ?C (97.2 ?F) SpO2: 98% Neurological Exam Mental Status Awake and alert. Speech is normal. Cranial NervesCN II: Visual acuity is normal. CN III, IV, : Extraocular movements intact bilaterally. Pupils equal round and reactive to light bilaterally. CN VII: Full and symmetric facial movement. CN IX, X: Palate elevates symmetrically CN XI: Shoulder shrug strength is normal. CN XII: Tongue midline without atrophy or fasciculations. MotorStrength is 5/5 throughout all four extremities. SensoryTemperature abnormality: Decreased distally. Vibration abnormality: Decreased distally. ReflexesDeep tendon reflexes: Suppressed but symmetric. GaitCasual gait is normal including stance, stride, and arm swing. No results found for this or any previous visit. No MRI head results found for the past 12 months Assessment & PlanDiagnoses and all orders for this visit: Temporal arteritis (CMS/HCC) (HCC) - predniSONE (Deltasone) 1 MG tablet; Take 2 tablets by mouth 1 time each day. - Complete Blood Count w/Diff and Platelet; Future - Sedimentation Rate; Future - C-Reactive Protein; Future Decrease Prednisone to 2 mg, labs prior to follow up [facility]2025-01-08 09:39:49Scheduled Orders Health Maintenance Due Date Last Done Comments Lipid Panel 1955 Medicare Annual Wellness (AWV) 1955 Annual Physical 1958 DTaP/Tdap/Td Vaccines (1 - Tdap) 1972 Zoster Vaccines (1 of 2) 09/07/2003 Respiratory Syncytial Virus (RSV) or >=60 (1 - Risk 60-74 years 1-dose series) 2013 Pneumococcal Vaccine: 65+ Years (2 of 2 - PCV) 12/01/2020 12/02/2019 Influenza Vaccine (#1) 2023 Colorectal Cancer Screening Discontinued FIT-DNA Discontinued 06/06/2023, 06/06/2023 CT Colonography Discontinued Colonoscopy Discontinued FIT Discontinued FOBT Discontinued HIB Vaccines Aged Out No longer eligi ble based on patient's age to complete this topic HPV Vaccines Aged Out No longer eligi ble based on patient's age to complete this topic Hepatitis A Vaccines Aged Out No long er eligible based on patient's age to complete this topic Hepatitis B Vaccines Aged Out No long er eligible based on patient's age to complete this topic IPV Vaccines Aged Out No longer eligi ble based on patient's age to complete this topic Meningococcal Vaccine Aged Out No elodia natali eligible based on patient's age to complete this topic Rotavirus Vaccines Aged Out No longer eligible based on patient's age to complete this topic Sigmoidoscopy [facility]continued [facility]Pbxsvcl1071-16-81 09:39:49 Diagnosis Temporal arteritis (CMS/HCC) (HCC) - Primary Giant cell arteritis [facility]Uvrmdhi1730-09-92 09:39:49 [place] [id number] 09:39:49* [facility] RenaissanceBtenify3128-13-51 09:39:49 [facility] RenaissanceFndvthd4541-55-91 09:39:49* 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 No headaches, some fatigue, decrease Prednisone to 2 mg every day. Allergies as of 02/29/2024 - Reviewed 11/30/2023 Allergen Reaction Noted Demerol [meperidine hcl] 08/18/2023 Dexilant [dexlansoprazole] 08/18/2023 Diclofenac 08/18/2023 Dilaudid [hydromorphone] 08/18/2023 Iodine 08/18/2023 Levofloxacin 08/18/2023 Lunesta [eszopiclone] 08/18/2023 has a current medication list which includes the following prescription(s): alfuzosin er, aspirin ec, atorvastatin, benzonatate, clonidine, cyclosporine, finasteride, fluticasone, losartan, metoprolol tartrate, omeprazole, polyethylene glycol (peg) 3350, tadalafil, tramadol, and prednisone. Vitals:02/29/24 0929 BP: 142/75 Pulse: 59 Resp: 16 Temp: 36.2 ?C (97.2 ?F) SpO2: 98% Neurological Exam Mental Status Awake and alert. Speech is normal. Cranial NervesCN II: Visual acuity is normal. CN III, IV, : Extraocular movements intact bilaterally. Pupils equal round and reactive to light bilaterally. CN VII: Full and symmetric facial movement. CN IX, X: Palate elevates symmetrically CN XI: Shoulder shrug strength is normal. CN XII: Tongue midline without atrophy or fasciculations. MotorStrength is 5/5 throughout all four extremities. SensoryTemperature abnormality: Decreased distally. Vibration abnormality: Decreased distally. ReflexesDeep tendon reflexes: Suppressed but symmetric. GaitCasual gait is normal including stance, stride, and arm swing. No results found for this or any previous visit. No MRI head results found for the past 12 months Assessment & PlanDiagnoses and all orders for this visit: Temporal arteritis (CMS/HCC) (HCC) - predniSONE (Deltasone) 1 MG tablet; Take 2 tablets by mouth 1 time each day. - Complete Blood Count w/Diff and Platelet; Future - Sedimentation Rate; Future - C-Reactive Protein; Future Decrease Prednisone to 2 mg, labs prior to follow up [facility]2025-01-08 09:39:49Scheduled Orders Health Maintenance Due Date Last Done Comments Lipid Panel 1955 Medicare Annual Wellness (AWV) 1955 Annual Physical 1958 DTaP/Tdap/Td Vaccines (1 - Tdap) 1972 Zoster Vaccines (1 of 2) 09/07/2003 Respiratory Syncytial Virus (RSV) or >=60 (1 - Risk 60-74 years 1-dose series) 2013 Pneumococcal Vaccine: 65+ Years (2 of 2 - PCV) 12/01/2020 12/02/2019 Influenza Vaccine (#1) 2023 Colorectal Cancer Screening Discontinued FIT-DNA Discontinued 06/06/2023, 06/06/2023 CT Colonography Discontinued Colonoscopy Discontinued FIT Discontinued FOBT Discontinued HIB Vaccines Aged Out No longer eligi ble based on patient's age to complete this topic HPV Vaccines Aged Out No longer eligi ble based on patient's age to complete this topic Hepatitis A Vaccines Aged Out No long er eligible based on patient's age to complete this topic Hepatitis B Vaccines Aged Out No long er eligible based on patient's age to complete this topic IPV Vaccines Aged Out No longer eligi ble based on patient's age to complete this topic Meningococcal Vaccine Aged Out No elodia natali eligible based on patient's age to complete this topic Rotavirus Vaccines Aged Out No longer eligible based on patient's age to complete this topic Sigmoidoscopy Discontinued [facility]Hjmqpmo5823-19-41 09:39:49 Diagnosis Temporal arteritis (CMS/HCC) (HCC) - Primary Giant cell arteritis [facility]Arcuphf9215-89-90 09:39:49 [facility] RenaissanceRewsxca8782-69-29 13:11:51* [facility] RenaissanceVwarmol9834-78-68 13:11:51 [facility] RenaissanceAvdklqb4552-22-21 13:11:51Upcoming Encounters Health Maintenance Due Date Last Done Comments Lipid Panel 1955 Medicare Annual Wellness (AWV) 1955 Annual Physical 1956 DTaP/Tdap/Td Vaccines (1 - Tdap) 1972 Zoster Vaccines (1 of 2) 09/07/2003 Respiratory Syncytial Virus (RSV) or >=60 (1 - 1-dose 60+ series) 2013 Pneumococcal Vaccine: 65+ Years (2 of 2 - PCV) 12/01/2020 12/02/2019 Influenza Vaccine (#1) 2023 Colorectal Cancer Screening Discontinued FIT-DNA Discontinued 06/06/2023, 06/06/2023 CT Colonography Discontinued Colonoscopy Discontinued FIT Discontinued FOBT Discontinued HIB Vaccines Aged Out No longer eligi ble based on patient's age to complete this topic HPV Vaccines Aged Out No longer eligi ble based on patient's age to complete this topic Hepatitis A Vaccines Aged Out No long er eligible based on patient's age to complete this topic Hepatitis B Vaccines Aged Out No long er eligible based on patient's age to complete this topic IPV Vaccines Aged Out No longer eligi ble based on patient's age to complete this topic Meningococcal Vaccine Aged Out No elodia natali eligible based on patient's age to complete this topic Rotavirus Vaccines Aged Out No longer eligible based on patient's age to complete this topic Sigmoidoscopy Discontinued [facility] RenaissanceGpjlqlt0969-51-57 13:11:51 Diagnosis Temporal arteritis (CMS/HCC) (HCC) Giant cell arteritis [facility] RenaissanceBneavxy6005-47-72 13:11:51 [facility] RenaissanceVeighca6142-42-61 09:50:54* [facility] RenaissanceTbqlqiu0751-12-41 09:50:54 [facility] RenaissanceBedrvmv5082-57-32 09:50:54* Alanis Petit MD - 11/30/2023 9:45 AM CDT History of Present Illness HPI Labs look good ESR 4 CRP 1. Some fatigue, no headache. On prednisone 3 mg QD Allergies as of 11/30/2023 - Reviewed 11/30/2023 Allergen Reaction Noted Demerol [meperidine hcl] 08/18/2023 Dexilant [dexlansoprazole] 08/18/2023 Diclofenac 08/18/2023 Dilaudid [hydromorphone] 08/18/2023 Iodine 08/18/2023 Levofloxacin 08/18/2023 Lunesta [eszopiclone] 08/18/2023 has a current medication list which includes the following prescription(s): alfuzosin er, aspirin ec, atorvastatin, benzonatate, clonidine, cyclosporine, finasteride, fluticasone, losartan, metoprolol tartrate, omeprazole, polyethylene glycol (peg) 3350, prednisone, tadalafil, and tramadol. Vitals:11/30/23 0939 BP: 155/85 Pulse: 62 Resp: 16 Temp: 36.3 ?C (97.3 ?F) SpO2: 96% Neurological Exam Mental Status Awake and alert. Speech is normal. Cranial NervesCN II: Visual acuity is normal. CN III, IV, : Extraocular movements intact bilaterally. Pupils equal round and reactive to light bilaterally. CN VII: Full and symmetric facial movement. CN XII: Tongue midline without atrophy or fasciculations. MotorStrength is 5/5 throughout all four extremities. SensoryLight touch is normal in upper and lower extremities. Temperature is normal in upper and lower extremities. Vibration is normal in upper and lower extremities. ReflexesDeep tendon reflexes: Symmetric. GaitCasual gait is normal including stance, stride, and arm swing. No results found for this or any previous visit. No MRI head results found for the past 12 months Assessment & PlanDiagnoses and all orders for this visit: Temporal arteritis (CMS/HCC) (HCC) Other headache syndrome Stable, continue present medications. [facility] RenaissanceQbtikva6971-37-95 09:50:54Scheduled Orders Health Maintenance Due Date Last Done Comments Lipid Panel 1955 Medicare Annual Wellness (AWV) 1955 DTaP/Tdap/Td Vaccines (1 - Tdap) 1972 Zoster Vaccines (1 of 2) 09/07/2003 Respiratory Syncytial Virus (RSV) or >=60 (1 - 1-dose 60+ series) 2013 Pneumococcal Vaccine: 65+ Years (2 of 2 - PCV) 12/01/2020 12/02/2019 Influenza Vaccine (#1) 2023 Colorectal Cancer Screening Discontinued FIT-DNA Discontinued 06/06/2023, 06/06/2023 CT Colonography Discontinued Colonoscopy Discontinued FIT Discontinued FOBT Discontinued HIB Vaccines Aged Out No longer eligi ble based on patient's age to complete this topic HPV Vaccines Aged Out No longer eligi ble based on patient's age to complete this topic Hepatitis A Vaccines Aged Out No long er eligible based on patient's age to complete this topic Hepatitis B Vaccines Aged Out No long er eligible based on patient's age to complete this topic IPV Vaccines Aged Out No longer eligi ble based on patient's age to complete this topic Meningococcal Vaccine Aged Out No elodia natali eligible based on patient's age to complete this topic Rotavirus Vaccines Aged Out No longer eligible based on patient's age to complete this topic Sigmoidoscopy Discontinued [facility] RenaissanceEzmwtum7736-85-53 09:50:54 Diagnosis Temporal arteritis (CMS/HCC) (HCC) - Primary Giant cell arteritis Other headache syndrome [facility] RenaissanceVtsqaju5437-72-55 09:50:54 [facility] RenaissanceWhsipnz1452-28-73 10:58:19* [facility] RenaissanceFevsmvr0424-38-13 10:58:19 [facility] RenaissanceGrkuidz8146-30-79 10:58:19* Alanis Petit MD - 08/18/2023 10:00 AM CDT HPI Patient returns for reevaluation. Stable. C-reactive protein was 1 and sedimentation rate was 16. No headaches, occasional blurry vision out of the right eye but it is very rare. Will decrease the prednisone down to 3 mg today. Allergies as of 08/18/2023 - Reviewed 08/18/2023 Allergen Reaction Noted Demerol [meperidine hcl] 08/18/2023 Dexilant [dexlansoprazole] 08/18/2023 Diclofenac 08/18/2023 Dilaudid [hydromorphone] 08/18/2023 Iodine 08/18/2023 Levofloxacin 08/18/2023 Lunesta [eszopiclone] 08/18/2023 has a current medication list which includes the following prescription(s): alfuzosin er, aspirin ec, atorvastatin, benzonatate, clonidine, clopidogrel, cyclosporine, finasteride, fluticasone, losartan, metoprolol tartrate, omeprazole, polyethylene glycol (peg) 3350, tadalafil, tramadol, and prednisone. Vitals:08/18/23 1035 BP: 109/71 Pulse: 59 Resp: 16 Temp: 36.3 ?C (97.3 ?F) SpO2: 96% Neurological Exam Mental Status Awake and alert. Speech is normal. Cranial NervesCN II: Visual acuity is normal. CN III, IV, : Extraocular movements intact bilaterally. Pupils equal round and reactive to light bilaterally. CN VII: Full and symmetric facial movement. CN XII: Tongue midline without atrophy or fasciculations. MotorStrength is 5/5 throughout all four extremities. SensoryLight touch is normal in upper and lower extremities. Temperature is normal in upper and lower extremities. Vibration is normal in upper and lower extremities. ReflexesDeep tendon reflexes: Symmetric. GaitCasual gait is normal including stance, stride, and arm swing. No results found for this or any previous visit. MRI brain wo IV contrast Result Date: 11/29/2022ROCEDURE INFORMATION: Exam: MR Head Without Contrast Exam date and time: 11/28/2022 9:32 AM Age: 67 years old Clinical indication: Headache, unspecified; Additional info: /r51.9 headache, unspecified. M31.6 other giant cell arteritis TECHNIQUE: Imaging protocol: Magnetic resonance imaging of the head without contrast. COMPARISON: No relevant prior studies available. FINDINGS: Brain: No acute infarct or intracranial hemorrhage. A few tiny foci of increased FLAIR signal in the cerebral white matter are present. Cerebral ventricles: Normal. No ventriculomegaly. Bones/joints: Unremarkable. Paranasal sinuses: Normal as visualized. No acute sinusitis. Mastoid air cells: Normal as visualized. No mastoid effusion. Orbital cavities: Unremarkable. Soft tissues: Unremarkable. 1. No acute intracranial abnormality. 2. Minimal chronic microvascular ischemic changes. Eric Morales MD On 11/29/2022 02:18:28; [id number] Assessment & PlanTemporal arteritis (CMS/HCC) ([facility]) Orders:predniSONE (Deltasone) 1 MG tablet; Take 3 tablets by mouth 1 time each day. C-Reactive Protein; Future Sedimentation Rate; Future Complete Blood Count w/Diff and Platelet; Future Decrease prednisone to 3mg qd. Labs prior to follow-up. [facility]2024-06-27 10:58:19Upcoming Encounters Scheduled Orders Name Type Priority Associated Diagnoses Orde r Schedule C-Reactive Protein Lab Routine Temporal arteritis (CMS/HCC) ([facility]) Expected: 08/18/2023 (Approximate), Expires: 08/17/2024 Sedimentation Rate Lab Routine Temporal arteritis (CMS/HCC) ([facility]) Expected: 08/18/2023 (Approximate), Expires: 08/17/2024 Complete Blood Count w/Diff and Platelet Lab Routine Temporal arteritis (CMS/HCC) ([facility]) Expected: 08/18/2023 (Approximate), Expires: 08/17/2024 Health Maintenance Due Date Last Done Comments Lipid Panel 1955 Medicare Annual Wellness (AWV) 1955 DTaP/Tdap/Td Vaccines (1 - Tdap) 1972 Zoster Vaccines (1 of 2) 09/07/2003 Respiratory Syncytial Virus (RSV) or >=60 (1 - 1-dose 60+ series) 2013 Pneumococcal Vaccine: 65+ Years (1 of 1 - PCV) 2018 Influenza Vaccine (Season Ended) 2023 Colorectal Cancer Screening Discontinued FIT-DNA Discontinued 06/06/2023, 06/06/2023 CT Colonography Discontinued Colonoscopy Discontinued FIT Discontinued FOBT Discontinued HIB Vaccines Aged Out No longer eligi ble based on patient's age to complete this topic HPV Vaccines Aged Out No longer eligi ble based on patient's age to complete this topic Hepatitis A Vaccines Aged Out No long er eligible based on patient's age to complete this topic Hepatitis B Vaccines Aged Out No long er eligible based on patient's age to complete this topic IPV Vaccines Aged Out No longer eligi ble based on patient's age to complete this topic Meningococcal Vaccine Aged Out No elodia natali eligible based on patient's age to complete this topic Rotavirus Vaccines Aged Out No longer eligible based on patient's age to complete this topic Sigmoidoscopy Discontinued [facility]Pcswttb3995-28-16 10:58:19 Diagnosis Temporal arteritis (CMS/HCC) (HCC) - Primary Giant cell arteritis [facility] RenaissanceRjwgmcb1861-17-77 10:58:19 [facility] RenaissanceOnsnice9294-88-90 14:37:[id number] [place] [address] PATIENT NAME: MARY DALY ADMIT DATE: 08/16/22 ACCOUNT NO: [id number] ROOM NO: [id number] AGE: 66 REPORT TYPE: 360 - QUERY RESPONSE DOCUMENT SEX: M ADMITTING PHYSICIAN:Ludin Mccurdy MD ATTENDING PHYSICIAN:Ludin Mccurdy MD Provider Query QUERY TEXT: Specificity IP Debridement 360MD Query related questions should be directed to: [facility] Coding Query Helpline Based on your clinical judgment, please clarify the depth and type of the debridement documented in the [OPERATIVE REPORT 08/16/2022 (3)]: The classification system requires the type and depth to be included in the documentation. The depth requires the level (e.g. skin, fascia/subq, muscle, tendon, bone as well as the name of structures involved. The classification system defines excisional and non-excisional debridement as follows: -- Excisional debridement - the surgical removal of necrotic, devitalized tissue or slough by means of cutting away of tissue (common methods include the use of scissors, scalpel or curette. This includes sharp debridement ONLY when documentation describes a definite cutting away of tissue. -- Non-excisional debridement - the removal of necrotic, devitalized tissue or slough by such methods as: flushing, brushing, irrigation (under pressure), washing, water scalpel (jet), maggot therapy, etc. This also includes the minor removal of loose fragments with scissors or scraping with a sharp instrument. The patient's Clinical Indicators include: Debridement of the sternal wound.-OPERATIVE REPORT 08/16/2022 (3) Sternal wound dehiscence-OPERATIVE REPORT 08/16/2022 (3) removed subcuticular sutures-OPERATIVE REPORT 08/16/2022 (3) edges of the wound were debrided-OPERATIVE REPORT 08/16/2022 (3) Piperacillin/Tazo 3.375 GM Inj-MAR Options provided: -- Skin, Please indicate type (excisional, non-excisional). -- Subcutaneous/Fascia, Please indicate type (excisional, non-excisional). -- Tendon, Please indicate type (excisional, non-excisional). -- Muscle, Please indicate type (excisional, non-excisional) and body part(s) involved. -- Bone, Please indicate type (excisional, non-excisional) and specific bone(s). -- Other - I will add my own diagnosis -- Dismiss - Not applicable / Not valid -- Dismiss - Clinically unable to determine / Unknown -- Assign to another provider QUERY RESPONSE: The patient had subcutaneous/fascia debridement. excisional Query created by: SADAF AVILES on 08/27/2022 8:58 AM at 1437 PATIENT NAME: MARY DALY 14:43:00 [facility] Discharge Summary REPORT#:[id number] REPORT STATUS: Signed DATE:08/25/22 TIME: 1443 PATIENT: MARY DALY UNIT #: [id number] ROOM/BED: [facility]-1 : 53 AGE: 67 SEX: M ATTEND: Ludin Mccurdy MD ADM AUTHOR: Rosalind Mendez Physic * ALL edits or amendments must be made on the electronic/computer document * General Information Discharge date: 08/25/22 Discharge diagnosis: S/P CABG, Sternal wound drinage, S/P Sternal wound dbridement. Hospital course: This is a 58-year-old gentleman with past medical history of coronary artery disease status post coronary artery bypass graft CABG x 4 (MITCHELL-LAD, SVG-OM1, SVG-OM2, SVG-PDA)on 08/02/[address] Mccurdy. He has a history of temporal arteritis on chronic prednisone, diverticulitis, gout, hypertension, hyperlipidemia. His postop course, he did very well. Working with physical therapy. He was mobile, walking with PT OT. His wounds were clean and dry. There was no drainage upon discharge. He was discharged on postop day 7. He was discharged on 08/09/2022. He reports about 2 or 3 days ago he started to notice increased drainage in his distal sternal wound. He also reports having chills at night. The patient admits to not checking his temperature. The patient denies any nausea or vomiting, denies any shortness of breath, does complain of right-sided chest wall pain. Patient is admitted for observation for sternal wound drainage Assessment/plan 1. Coronary artery disease Status post coronary artery bypass graft surgery on 08/02/2022 2. Sternal wound drainage Obtain CT noncontrast chest 3. Hypertension 4. Hyperlipidemia Patient will be admitted for investigation of sternal wound drainage. Will obtain CT noncontrast of the chest. DVT studies of the lower extremities We will start IV antibiotics, routine labs. Further recommendations to follow 08/17/22 POD 1 08/18/22 Continue abx as per ID Wound care team to change wound vac Labs reviewed Transfer to CVN 1 08/19/22 Patient in stable condition, no complaints, afebrile Reviewed labs Wound vac changed per wound care team On room air Antibiotics per ID, PICC line ordered for home antibiotics Discharge home soon 08/20/22 Patient doing well Denies pain Breathing comfortable on room air Encourage I-S use and mobilization Awaiting PICC line and insurance approval for home antibiotics 08/21/22 Patient resting comfortable, on room air PICC line placed Home antibiotics arranged by employment evaluator/case manager Pending home wound vac Encourage mobilization and [...] VAC in place. Outpatient home health and wound care being arranged Respiratory: On room air 99% Cardiac: Remains sinus rhythm Patient was seen and examined by Dr. Mccurdy Home once IV antibiotics and wound VAC arranged 08/24/22 AAOx3 Patient resting comfortable, denies complaints Afebrile Labs reviewed On IV antibiotics as per ID. PICC line in place, outpatient IV antibiotics being arranged Wound VAC in place. Case management working on outpatient wound vac. Respiratory: On room air 99% Cardiac: Remains sinus rhythm Patient was seen and examined by Dr. Mccurdy. Home once IV antibiotics and wound VAC arranged. Per nurse, awaiting insurance approval for wound VAC 08/25/22 AAOx3 Patient resting comfortable, denies complaints. Wants to go home Labs reviewed On IV antibiotics as per ID. PICC line in place, outpatient IV antibiotics being arranged Wound VAC in place. Case management working on outpatient wound vac. Respiratory: On room air 99% Cardiac: Remains sinus rhythm Home once IV antibiotics and wound VAC arranged. Awaiting insurance approval for wound vac, case management following Okay to DC patient home once outpatient wound VAC and IV antibiotics in place per case [...] 500 MILLIGRAM ORAL DAILY. as needed for DIVERTICULITIS CLOPIDOGREL (PLAVIX) 75 MG TAB 75 MILLIGRAM ORAL DAILY. metroNIDAZOLE (FLAGYL) 500 MG TAB 500 MILLIGRAM ORAL THREE TIMES A DAY. as needed for DIVERTICULITIS OMEPRAZOLE ER (PriLOSEC) 40 MG CAP.DR 40 MILLIGRAM ORAL DAILY. as needed for ACID REFLUX predniSONE (predniSONE) 1 MG TAB 1 MILLIGRAM ORAL THREE TIMES A DAY. SILDENAFIL (VIAGRA) 100 MG TAB 100 MILLIGRAM ORAL DAILY NEEDED. as needed for ED SODIUM FLUORIDE (PREVIDENT 5000 1.1% DENTAL) 1.1 % GEL 1 APPLIC TOPICAL DAILY. ASPIRIN (ASPIRIN) 81 MG TAB.CHEW 81 MILLIGRAM ORAL DAILY. POTASSIUM GLUCONATE (POTASSIUM GLUCONATE) 550 MG (90 MG) TAB 1 TABLET ORAL DAILY. CALCIUM CARBONATE (CALTRATE 600 MG) 600 MG CALCIUM (1,500 MG) TAB 600 MILLIGRAM ORAL DAILY. [...] 08/25 1053 O2 Delivery Room air 08/25 1053 Temp 97.9 08/25 1053 Pulse 56 08/25 1053 Resp 18 08/25 1053 FiO2 21 08/23 2025 O2 Flow Rate [...] Care Discharge Instructions Additional Discharge Routines: Attending Follow-Up )( Diet: Cardiac Follow-up Appointments Attending Physician: Attending Physician: Ludin Mccurdy MD Attending physician follow up timeframe: In 2-3 weeks at 1445 at 1351 [facility] #:[id number] END OF REPORTZBRFF2527-15-61 13:19:00 [facility] [facility] ([facility]) Infectious Dis. Progress Note REPORT#:[id number] REPORT STATUS: Signed DATE:08/25/22 TIME: 1319 PATIENT: MARY DALY UNIT #: [id number] ROOM/BED: [place] [address] : 53 AGE: 66 SEX: M ATTEND: Ludin Mccurdy MD ADM AUTHOR: Dafne Granda MD * ALL edits or amendments must be made on the electronic/computer document * Subjective HPI: This is a 58-year-old male patient with history of coronary artery disease status post CABG on the who presents to the hospital with drainage from his distal sternal wound along with chills On the he underwent debridement of the sternal wound and wound VAC placement His cultures are growing Staph aureus. He has been started on cefazolin 2 g every 8. 08/24/22: wants to go home with home health for iv abx. 08/25/22: doing well, sitting up in chair Patient reports: No: cough, diarrhea, fever, headache, pain, shortness of breath, vomiting. Portions of this section were scribed by Ro Yost on 08/25/22 at 1319 Review of Systems Free Text ROS Notes Free Text ROS Notes: 14 systems reviewed and negative apart from pertinent points in the HPI Portions of this section were scribed by Ro Yost on 08/25/22 at 1319 Objective General VS/I O: Vital Signs Date Temp Pulse Resp B/P B/P Mean Pulse Ox FiO2 /-08/25 97.5-98.4 56-68 13- 128-162/70-82 0.0-115 92-97 Last Documented: Result Date Time Pulse Ox 96 08/25 1053 B/P 139/75 08/25 1053 B/P Mean 0.0 08/25 1053 O2 Delivery Room air 08/25 1053 Temp 97.9 08/25 1053 Pulse 56 08/25 1053 Resp 18 08/25 1053 FiO2 21 08/23 2024 O2 Flow Rate 2 08/16 1400 Vital Signs: Date Time Temp Pulse Resp B/P B/P Pulse O2 O2 Flow FiO2 Mean Ox Delivery Rate 08/25 1053 97.9 56 18 139/75 0.0 96 [...] no rub Respiratory: clear to auscultation, symmetric expansion Abdomen: non-tender, normal bowel sounds Extremities: moves all, normal capillary refill Musculoskeletal: full range of motion, normal inspection Results Findings/Data: Laboratory Tests 08/25 426 Chemistry [...] - 2.40 mg/dL) 2.23 Laboratory Tests 08/25 0427 Hematology WBC (4.5 - 11.0 x10 [...] % (Auto) (14.0 - 32.0 %) 24.6 Brooke % (Auto) (4.8 - 9.0 %) 11.8 H Eos % (Auto) (0.3 - 3.7 %) 3.4 Baso % (Auto) (0.0 - 2.0 %) 0.7 Neut # (Auto) (2.0 - 7.6 x10 3/uL) 5.40 Lymph # (Auto) (1.0 - 3.8 x10 3/uL) 2.25 Brooke # (Auto) (0.1 - 0.8 x10 3/uL) 1.08 H Eos # (Auto) (0.0 - 0.2 x10 3/uL) 0.31 H Baso # (Auto) (0.0 - 0.2 x10 3/uL) 0.06 Abs Immat Gran (auto) (0.00 - 0.03 x10 3/uL) 0.05 H Add Manual Diff NO Immature Gran % (0.0 - 2.0 %) 0.5 Nucleated RBC % (0 - 0 %) 0.0 Nucleated RBCs # (Man) (0.0 - 0.1 x10 3/uL) 0.00 Laboratory Tests: 08/25 08/24 0427 0402 Chemistry [...] (Auto) (14.0 - 32.0 %) 24.6 23.2 Brooke % (Auto) (4.8 - 9.0 %) 11.8 H 12.2 H Eos % (Auto) (0.3 - 3.7 %) 3.4 3.3 Baso % (Auto) (0.0 - 2.0 %) 0.7 0.5 Neut # (Auto) (2.0 - 7.6 x10 3/uL) 5.40 5.67 Lymph # (Auto) (1.0 - 3.8 x10 3/uL) 2.25 2.18 Brooke # (Auto) (0.1 - 0.8 x10 3/uL) 1.08 H 1.15 H Eos # (Auto) (0.0 - 0.2 x10 3/uL) 0.31 H 0.31 H Baso # (Auto) (0.0 - 0.2 x10 3/uL) 0.06 0.05 Abs Immat Gran (auto) (0.00 - 0.03 x10 3/uL) 0.05 H 0.05 H Add Manual Diff NO NO Immature Gran % (0.0 - 2.0 %) 0.5 0.5 Nucleated RBC % (0 - 0 %) 0.0 0.0 Nucleated RBCs # (Man) (0.0 - 0.1 x10 3/uL) 0.00 0.00 Recent Impressions: RADIOLOGY - XR CHEST 1 V 08/24 0551 Report Impression - Status: SIGNED Entered: 08/24/2022 0734 IMPRESSION: 1. Ynaj-md-[id number] enlarged cardiac silhouette. 2. Mild interstitial pulmonary edema versus infiltrates. Impression By: [email or web address] - Lor Stoner M.D. Medication(s) Ordered: Anti-Infective Agents Sig/Cory [...] 0829 Atorvastatin Calcium 40 MG 08/15 AC 08/24 PO 09/14 Metoprolol Tartrate 12.5 MG BID 08/15 2099 AC 08/25 PO 09/14 2058 0829 Central Nervous [...] Sulfate 100 ML ASDIR PRN 08/16 1330 AC IV 09/15 1329 Magnesium Sulfate 50 ML [...] Carboxymethylcellul- 1 DROP QID 08/17 1300 AC 08/25 ose Sodium EACH EYE 09/16 1259 0830 Gastrointestinal Drugs Sig/Cory Start time Last Medication Dose Route Stop Time Status Admin Polyethylene Glycol 17 GM DAILY 08/17 0900 AC 08/22 PO 09/16 0859 1013 Docusate Sodium 100 MG BID 08/16 2100 AC 08/25 PO 09/15 205 0829 Sennosides 17.2 MG BEDTIME 08/16 2099 AC 08/24 PO 09/15 205 2113 Ondansetron HCl 4 MG Q6H PRN PRN 08/16 1330 AC IV 09/15 1329 Pantoprazole 40 MG DAILY PRN 08/16 1999 AC 08/25 PO 09/14 1959 0829 Hormones And Synthetic Substit Sig/Cory Start time Last Medication Dose Route Stop Time Status Admin Glucagon 1 MG ASDIR PRN 08/16 1330 AC IM 09/15 1329 Prednisone 1 MG TID 08/15 2100 AC 08/25 PO 09/14 2058 0829 Recent Impressions: RADIOLOGY - XR CHEST 1 V 08/24 0651 Report Impression - Status: SIGNED Entered: 08/24/2022 0734 IMPRESSION: 1. Huqp-ft-rueeubkvlz enlarged cardiac silhouette. 2. Mild interstitial pulmonary edema versus infiltrates. Impression By: [email or web address] - Lor Stoner M.D. Portions of this section were scribed by Ro Yost on 08/25/22 at 1319 Treatment Prophylaxis Treatment Prophylaxis Lines: PICC (08/20) Portions of this section were scribed by Ro Yost on 08/25/22 at 1319 Diagnosis, Assessment Plan Free Text A P: 1-Sternal wound infection with MSSA status post debridement postoperative day #2 2-Coronary disease status post CABG 3-History of temporal arteritis 4-History of diverticulitis Recommendations Continue cefazolin at 2 g IV every 8 We will order PICC line placement and home IV antibiotics via the infusion center followed by oral Keflex until complete resolution of signs and symptoms of infection followed by a few months of suppressive therapy as well 08/19 Awaiting PICC line placement Home IV antibiotics have been ordered and pending insurance approval 08/20 Home IV antibiotics have been approved by [facility] infusion Plan cefazolin for 6 weeks PICC line is pending Wound VAC is pending for home Likely discharge is Tuesday08/23/22 cont on cefazolin for 6 week til 09/27/22 PICC line placed 08/20 f/u esr and crp wound vac in place 08/24/22: PENDING TO ARRANGE ABX AT HOME. CONT CEFAZOLIN TILL 09/27/22 08/25/22: on Cefazolin til 09/27/22 employment evaluator/case manager to arrange [place] [facility] [facility]; wound vac to arranged Portions of this section were scribed by Ro Yost on 08/25/22 at 1319 at 0880 RPT #:[id number] END OF [id number] 06:59:00 [facility] ([facility]) Cardiology Progress Note REPORT#:[id number] REPORT STATUS: Signed DATE:08/25/22 TIME: 658 PATIENT: MARY DALY UNIT #: [id number] ROOM/BED: 3353-1 : 53 AGE: 66 SEX: M ATTEND: Ludin Mccurdy MD ADM AUTHOR: Denton Chaparro MD * ALL edits or amendments must be made on the electronic/computer document * Subjective Chief complaint: Pain at incisional site Objective General VS/I O: 24 hour I O ending at 0700: 08/25 0700 07 1900 Intake Total 250 600 Output Total 600 640 Balance -350 -40 Intake, Oral 250 600 Output, 40 Drainage Output, Urine 600 600 Patient 80.2 kg Weight Weight Standing scale Measurement Method Vital Signs: Date Time Temp Pulse Resp B/P B/P Pulse O2 O2 Flow FiO2 Mean Ox Delivery Rate 07/ 0350 98.4 57 16 144/75 0.0 96 [...] Room air 07/04 0732 95 Room air PATIENT WEIGHT: Weight (lb): 176 Weight (oz): 12.97 Weight (kg): 80.200 Medications: Active Meds + DC'd Last 24 Hrs Tramadol HCl (ULTRAM) 25 MG Q6H PRN PO Sodium Chloride (SODIUM CHLORIDE) 10 ML BID IV Sodium Chloride (SODIUM CHLORIDE) 10 ML ASDIR PRN IV Carboxymethylcellulose Sodium (REFRESH TEARS) 1 DROP QID EACH EYE Cefazolin Sodium (KEFZOL OR ANCEF) 2 GM Q8H IV Sodium Chloride (SODIUM CHLORIDE) 20 ML ASDIR IV Polyethylene Glycol (MIRALAX) 17 GM DAILY PO Docusate Sodium (COLACE) 100 MG BID PO Sennosides (Senna Lax 8.6 MG TABLET) 17.2 MG BEDTIME PO Acetaminophen (TYLENOL) 650 MG Q4H PRN PRN PO Acetaminophen (TYLENOL) 650 MG Q4H PRN PRN RECTAL Dextrose/Water (DEXTROSE 10% IN WATER) 125 ML ASDIR PRN IV (CKD) Dextrose/Water (DEXTROSE 10% IN WATER) 250 ML ASDIR PRN IV (CKD) Glucagon (GLUCAGON) 1 MG ASDIR PRN IM Magnesium Sulfate (MAGNESIUM SULFATE 4GM/SWFI 100ML) 100 ML ASDIR PRN IV Magnesium Sulfate (MAGNESIUM SULFATE 2GM/SWFI 50ML) 50 ML ASDIR PRN IV Magnesium Sulfate/Dextrose (MAGNESIUM SULFATE 1GM/D5W 100ML) 100 ML ASDIR PRN IV Ondansetron [...] meningismus, no bruit/NL carotids, no JVD, no lymphadenopathy, no masses or swelling Cardiovascular: CV assessment: regular rate and rhythm Respiratory: decreased breath sounds, no distress Abdomen: non-tender, normal bowel sounds, no distention, no guarding, no mass/ organomegaly, no pulsatile mass, no rebound Upper extremity: UE assessment: normal capillary refill, no edema Lower extremity: LE assessment: normal capillary refill, no edema Results Findings/Data: Laboratory Tests 08/25 426 Chemistry [...] - 2.40 mg/dL) 2.23 Laboratory Tests 08/25 0427 Hematology WBC (4.5 - 11.0 x10 [...] % (Auto) (14.0 - 32.0 %) 24.6 Brooke % (Auto) (4.8 - 9.0 %) 11.8 H Eos % (Auto) (0.3 - 3.7 %) 3.4 Baso % (Auto) (0.0 - 2.0 %) 0.7 Neut # (Auto) (2.0 - 7.6 x10 3/uL) 5.40 Lymph # (Auto) (1.0 - 3.8 x10 3/uL) 2.25 Brooke # (Auto) (0.1 - 0.8 x10 3/uL) 1.08 H Eos # (Auto) (0.0 - 0.2 x10 3/uL) 0.31 H Baso # (Auto) (0.0 - 0.2 x10 3/uL) 0.06 Abs Immat Gran (auto) (0.00 - 0.03 x10 3/uL) 0.05 H Add Manual Diff NO Immature Gran % (0.0 - 2.0 %) 0.5 Nucleated RBC % (0 - 0 %) 0.0 Nucleated RBCs # (Man) (0.0 - 0.1 x10 3/uL) 0.00 Laboratory Tests 08/25 426 Chemistry Magnesium (1.80 - 2.40 mg/dL) 2.23 Diagnosis, Assessment Plan Free Text DxA P Notes Free Text DxA P Notes: 1. Coronary artery disease Status post coronary artery bypass graft surgery on 08/02/2022 2. Sternal wound drainage S/P wound surgery/debridement 3. Hypertension 4. Hyperlipidemia at 0700 RPT #:[id number] END OF [id number] 05:20:00 [facility] ([facility]) Cardiothoracic Surgery Prog REPORT#:[id number] REPORT STATUS: Signed DATE:08/25/22 TIME: 519 PATIENT: MARY DALY UNIT #: [id number] ROOM/BED: [place] [address] : 53 AGE: 66 SEX: M ATTEND: Ludin Mccurdy MD ADM AUTHOR: Rosalind Mendez * ALL edits or amendments must be made on the electronic/computer document * General Post-op: day 9 Status post: 1. Debridement of the sternal wound. 2. Placement of wound VAC. Review of Systems Constitutional: Denies: chills, fatigue, generalized weakness. Skin: Denies: abrasion, bruising, ecchymosis. Allergy/Immun: Denies: allergic reaction, hives, rhinorrhea. Eyes: Denies: redness, visual loss/blurred, eye pain. Respiratory: Denies: PETERSEN (dyspnea on exertion), pleuritic pain, productive cough (sputum). Cardiovascular: Denies: chest pain, palpitations. GI: Denies: abdominal pain, nausea, vomiting. : Denies: dysuria, flank pain. Musculoskeletal: Denies: arthritis, joint pain, neck pain. Heme: Denies: adenopathy, bleeding, petechiae. Endocrine: Denies: cold intolerance, heat intolerance, polyuria. Neuro: Denies: bladder dysfunction, seizure, syncope. Psych: Denies: anxiety, insomnia. All systems rev neg: except as marked Objective General VS/I O Last Documented: Result Date Time Pulse Ox 96 08/25 035 B/P 144/75 08/25 0350 B/P Mean 0.0 08/25 349 Temp 98.4 08/25 349 Pulse 57 08/25 035 Resp 16 08/25 035 O2 Delivery Room air 08/25 735 FiO2 21 08/23 2024 O2 Flow Rate [...] in place HEENT: anicteric, mucosal membranes moist, pupils reactive to light Neck: full range of motion, non-tender Cardiovascular: normal heart sounds, regular rate rhythm, wound vac in place to sternum Respiratory: aerating well, symmetric expansion, no distress Abdomen: soft, non-tender Genitourinary: urine Extremities: dry, moves all Musculoskeletal: full range of motion, painless range of motion Skin: dry, intact Psychiatry: normal affect, normal mood Diagnosis, Assessment Plan Free Text A P: This is a 58-year-old gentleman with past medical history of coronary artery disease status post coronary artery bypass graft CABG x 4 (MITCHELL-LAD, SVG-OM1, SVG-OM2, SVG-PDA)on 08/02/[address] Mccurdy. He has a history of temporal arteritis on chronic prednisone, diverticulitis, gout, hypertension, hyperlipidemia. His postop course, he did very well. Working with physical therapy. He was mobile, walking with PT OT. His wounds were clean and dry. There was no drainage upon discharge. He was discharged on postop day 7. He was discharged on 08/09/2022. He reports about 2 or 3 days ago he started to notice increased drainage in his distal sternal wound. He also reports having chills at night. The patient admits to not checking his temperature. The patient denies any nausea or vomiting, denies any shortness of breath, does complain of right-sided chest wall pain. Patient is admitted for observation for sternal wound drainage Assessment/plan 1. Coronary artery disease Status post coronary artery bypass graft surgery on 08/02/2022 2. Sternal wound drainage Obtain CT noncontrast chest 3. Hypertension 4. Hyperlipidemia Patient will be admitted for investigation of sternal wound drainage. Will obtain CT noncontrast of the chest. DVT studies of the lower extremities We will start IV antibiotics, routine labs. Further recommendations to follow 08/17/22 POD 1 08/18/22 Continue abx as per ID Wound care team to change wound vac Labs reviewed Transfer to CVN 1 08/19/22 Patient in stable condition, no complaints, afebrile Reviewed labs Wound vac changed per wound care team On room air Antibiotics per ID, PICC line ordered for home antibiotics Discharge home soon 08/20/22 Patient doing well Denies pain Breathing comfortable on room air Encourage I-S use and mobilization Awaiting PICC line and insurance approval for home antibiotics 08/21/22 Patient resting comfortable, on room air PICC line placed Home antibiotics arranged by employment evaluator/case manager Pending home wound vac Encourage mobilization and [...] VAC in place. Outpatient home health and wound care being arranged Respiratory: On room air 99% Cardiac: Remains sinus rhythm Patient was seen and examined by Dr. Mccurdy Home once IV antibiotics and wound VAC arranged 08/24/22 AAOx3 Patient resting comfortable, denies complaints Afebrile Labs reviewed On IV antibiotics as per ID. PICC line in place, outpatient IV antibiotics being arranged Wound VAC in place. Case management working on outpatient wound vac. Respiratory: On room air 99% Cardiac: Remains sinus rhythm Patient was seen and examined by Dr. Mccurdy. Home once IV antibiotics and wound VAC arranged. Per nurse, awaiting insurance approval for wound VAC 08/25/22 AAOx3 Patient resting comfortable, denies complaints. Wants to go home Labs reviewed On IV antibiotics as per ID. PICC line in place, outpatient IV antibiotics being arranged Wound VAC in place. Case management working on outpatient wound vac. Respiratory: On room air 99% Cardiac: Remains sinus rhythm Home once IV antibiotics and wound VAC arranged. Awaiting insurance approval for wound vac, case management following Okay to DC patient home once outpatient wound VAC and IV antibiotics in place per case management Patient was seen and examined by Dr. Mccurdy. at 1432 at 1841 RPT #:[id number] END OF [id number] 11:11:00 [facility] Cardiology Progress Note REPORT#:[id number] REPORT STATUS: Signed DATE:08/24/22 TIME: 1111 PATIENT: MARY DALY UNIT #: [id number] ROOM/BED: [place] [address] : 53 AGE: 66 SEX: M ATTEND: Ludin Mccurdy MD ADM AUTHOR: Denton Chaparro MD * ALL edits or amendments must be made on the electronic/computer document * Subjective Chief complaint: Pain at [...] O2 Flow FiO2 Mean Ox Delivery Rate 08/24 0736 97.9 69 20 135/72 0.0 93 Room air 08/24 0732 95 Room air 08/24 0419 98.2 68 13 148/74 0.0 93 Room air / 0400 68 15 141/76 103 93 07/ 0342 67 14 94 / 0300 67 22 96 07/ 0200 70 17 144/78 103 92 07/04 0100 71 14 95 07/04 0001 66 19 153/72 103 94 07/03 2307 64 20 135/75 98 94 07/03 2307 97.9 64 13 135/75 0.0 95 Room air 07/03 2201 61 28 162/76 109 95 07/03 2108 71 21 168/78 111 95 07/03 2100 76 14 97 07/03 2025 96 Room air 21 / 1945 98.2 75 13 158/75 0.0 97 [...] Sodium Chloride (SODIUM CHLORIDE) 10 ML ASDIR PRN IV Carboxymethylcellulose Sodium (REFRESH TEARS) 1 DROP QID EACH EYE Cefazolin Sodium (KEFZOL OR ANCEF) 2 GM Q8H IV Sodium Chloride (SODIUM CHLORIDE) 20 ML ASDIR IV Polyethylene Glycol (MIRALAX) 17 GM DAILY PO Docusate Sodium (COLACE) 100 MG BID PO Sennosides (Senna Lax 8.6 MG TABLET) 17.2 MG BEDTIME PO Acetaminophen (TYLENOL) 650 MG Q4H PRN PRN PO Acetaminophen (TYLENOL) 650 MG Q4H PRN PRN RECTAL Dextrose/Water (DEXTROSE 10% IN WATER) 125 ML ASDIR PRN IV (CKD) Dextrose/Water (DEXTROSE 10% IN WATER) 250 ML ASDIR PRN IV (CKD) Glucagon (GLUCAGON) 1 MG ASDIR PRN IM Magnesium Sulfate (MAGNESIUM SULFATE 4GM/SWFI 100ML) 100 ML ASDIR PRN IV Magnesium Sulfate (MAGNESIUM SULFATE 2GM/SWFI 50ML) 50 ML ASDIR PRN IV Magnesium Sulfate/Dextrose (MAGNESIUM SULFATE 1GM/D5W 100ML) 100 ML ASDIR PRN IV Ondansetron [...] meningismus, no bruit/NL carotids, no JVD, no lymphadenopathy, no masses or swelling Cardiovascular: CV assessment: regular rate and rhythm Respiratory: decreased breath sounds, no distress Abdomen: non-tender, normal bowel sounds, no distention, no guarding, no mass/ organomegaly, no pulsatile mass, no rebound Upper extremity: UE assessment: normal capillary refill, no edema Lower extremity: LE assessment: normal capillary refill, no edema Results Findings/Data: Laboratory Tests 08/24 401 Chemistry [...] % (Auto) (14.0 - 32.0 %) 23.2 Brooke % (Auto) (4.8 - 9.0 %) 12.2 H Eos % (Auto) (0.3 - 3.7 %) 3.3 Baso % (Auto) (0.0 - 2.0 %) 0.5 Neut # (Auto) (2.0 - 7.6 x10 3/uL) 5.67 Lymph # (Auto) (1.0 - 3.8 x10 3/uL) 2.18 Brooke # (Auto) (0.1 - 0.8 x10 3/uL) 1.15 H Eos # (Auto) (0.0 - 0.2 x10 3/uL) 0.31 H Baso # (Auto) (0.0 - 0.2 x10 3/uL) 0.05 Abs Immat Gran (auto) (0.00 - 0.03 x10 3/uL) 0.05 H Add Manual Diff NO Immature Gran % (0.0 - 2.0 %) 0.5 Nucleated RBC % (0 - 0 %) 0.0 Nucleated RBCs # (Man) (0.0 - 0.1 x10 3/uL) 0.00 Laboratory Tests 08/24 0402 Chemistry Magnesium (1.80 - 2.40 mg/dL) 1.98 Radiology data: Recent Impressions: RADIOLOGY - XR CHEST 1 V 08/24 0651 Report Impression - Status: SIGNED Entered: 08/24/2022 0734 IMPRESSION: 1. Rrlz-nc-wbxjfkkovk enlarged cardiac silhouette. 2. Mild interstitial pulmonary edema versus infiltrates. Impression By: [email or web address] - Lor Stoner M.D. Diagnosis, Assessment Plan Free Text DxA P Notes Free Text DxA P Notes: 1. Coronary artery disease Status post coronary artery bypass graft surgery on 08/02/2022 2. Sternal wound drainage S/P wound surgery/debridement 3. Hypertension 4. Hyperlipidemia at 1112 RPT #:[id number] END OF [id number] 10:03:00 [facility] ([facility]) Infectious Dis. Progress Note REPORT#:[id number] REPORT STATUS: Signed DATE:08/24/22 TIME: 1003 PATIENT: MARY DALY UNIT #: [id number] ROOM/BED: 3353-1 : 53 AGE: 66 SEX: M ATTEND: Ludin Mccurdy MD ADM AUTHOR: Dafne Granda MD * ALL edits or amendments must be made on the electronic/computer document * Subjective HPI: This is a 58-year-old male patient with history of coronary artery disease status post CABG on the who presents to the hospital with drainage from his distal sternal wound along with chills On the he underwent debridement of the sternal wound and wound VAC placement His cultures are growing Staph aureus. He has been started on cefazolin 2 g every 8. 08/24/22: wants to go home with home health for iv abx. Review of Systems Free Text ROS Notes Free Text ROS Notes: 14 systems reviewed and negative apart from pertinent points in the HPI Objective General VS/I O: Vital Signs Date Temp Pulse Resp B/P B/P Mean Pulse Ox FiO2 07/03-08/24 97.9-98.2 61-76 13-46 128-168/69-78 0.0-111 91-97 21 Last Documented: Result Date Time Pulse Ox 97 / 1603 B/P 128/70 07/ 1603 B/P Mean 89 / 1603 Temp 97.9 07/04 1603 Pulse 68 07/04 1603 Resp 16 / 1603 O2 Delivery Room air / 0736 FiO2 21 / 2025 O2 Flow Rate 2 08/16 1400 Vital Signs: Date Time Temp Pulse Resp B/P B/P Pulse O2 O2 Flow FiO2 Mean Ox Delivery Rate / 1603 97.9 68 16 128/70 89 [...] 64 13 135/75 0.0 95 Room air / 2201 61 28 162/76 109 95 07/03 2108 71 21 168/78 111 95 07/03 2100 76 14 97 /2024 96 Room air 21 08/23 194 98.2 75 13 158/75 0.0 97 Room air / 1919 75 46 154/75 108 91 / 1900 71 25 95 24 hour I [...] no rub Respiratory: clear to auscultation, symmetric expansion Abdomen: non-tender, normal bowel sounds Extremities: moves all, normal capillary refill Musculoskeletal: full range of motion, normal inspection Results Findings/Data: Laboratory Tests 08/24 401 Chemistry [...] (1.80 - 2.40 mg/dL) 1.98 Laboratory Tests 07/04 0402 Hematology WBC (4.5 - 11.0 x10 [...] % (Auto) (14.0 - 32.0 %) 23.2 Brooke % (Auto) (4.8 - 9.0 %) 12.2 H Eos % (Auto) (0.3 - 3.7 %) 3.3 Baso % (Auto) (0.0 - 2.0 %) 0.5 Neut # (Auto) (2.0 - 7.6 x10 3/uL) 5.67 Lymph # (Auto) (1.0 - 3.8 x10 3/uL) 2.18 Brooke # (Auto) (0.1 - 0.8 x10 3/uL) 1.15 H Eos # (Auto) (0.0 - 0.2 x10 3/uL) 0.31 H Baso # (Auto) (0.0 - 0.2 x10 3/uL) 0.05 Abs Immat Gran (auto) (0.00 - 0.03 x10 3/uL) 0.05 H Add Manual Diff NO Immature Gran % (0.0 - 2.0 %) 0.5 Nucleated RBC % (0 - 0 %) 0.0 Nucleated RBCs # (Man) (0.0 - 0.1 x10 3/uL) 0.00 Laboratory Tests Test Result Date Time Chemistry BUN (7 - 18 mg/dL) 9 08/24 0402 Creatinine (0.6 - 1.3 mg/dL) 0.9 07/ 0402 Hematology WBC (4.5 - 11.0 x10 3/uL) 9.4 08/24 0402 Active Meds + DC'd Last 24 Hrs Tramadol HCl (ULTRAM) 25 MG Q6H PRN PO Sodium Chloride (SODIUM CHLORIDE) 10 ML BID IV Sodium Chloride (SODIUM CHLORIDE) 10 ML ASDIR PRN IV Carboxymethylcellulose Sodium (REFRESH TEARS) 1 DROP QID EACH EYE Cefazolin Sodium (KEFZOL OR ANCEF) 2 GM Q8H IV Sodium Chloride (SODIUM CHLORIDE) 20 ML ASDIR IV Polyethylene Glycol (MIRALAX) 17 GM DAILY PO Docusate Sodium (COLACE) 100 MG BID PO Sennosides (Senna Lax 8.6 MG TABLET) 17.2 MG BEDTIME PO Acetaminophen (TYLENOL) 650 MG Q4H PRN PRN PO Acetaminophen (TYLENOL) 650 MG Q4H PRN PRN RECTAL Dextrose/Water (DEXTROSE 10% IN WATER) 125 ML ASDIR PRN IV (CKD) Dextrose/Water (DEXTROSE 10% IN WATER) 250 ML ASDIR PRN IV (CKD) Glucagon (GLUCAGON) 1 MG ASDIR PRN IM Magnesium Sulfate (MAGNESIUM SULFATE 4GM/SWFI 100ML) 100 ML ASDIR PRN IV Magnesium Sulfate (MAGNESIUM SULFATE 2GM/SWFI 50ML) 50 ML ASDIR PRN IV Magnesium Sulfate/Dextrose (MAGNESIUM SULFATE 1GM/D5W 100ML) 100 ML ASDIR PRN IV Ondansetron [...] Free Text A P: 1-Sternal wound infection with MSSA status post debridement postoperative day #2 2-Coronary disease status post CABG 3-History of temporal arteritis 4-History of diverticulitis Recommendations Continue cefazolin at 2 g IV every 8 We will order PICC line placement and home IV antibiotics via the infusion center followed by oral Keflex until complete resolution of signs and symptoms of infection followed by a few months of suppressive therapy as well 08/19 Awaiting PICC line placement Home IV antibiotics have been ordered and pending insurance approval 08/20 Home IV antibiotics have been approved by [facility] infusion Plan cefazolin for 6 weeks PICC line is pending Wound VAC is pending for home Likely discharge is Tuesday08/23/22 cont on cefazolin for 6 week til 09/27/22 PICC line placed 08/20 f/u esr and crp wound vac in place 08/24/22: PENDING TO ARRANGE ABX AT HOME. CONT CEFAZOLIN TILL 09/27/22 at 1712 RPT #:[id number] END OF [id number] 07:16:00 [facility] Cardiothoracic Surgery Prog REPORT#:[id number] REPORT STATUS: Signed DATE:08/24/22 TIME: 715 PATIENT: MARY DALY UNIT #: [id number] ROOM/BED: [place] [address] : 53 AGE: 66 SEX: M ATTEND: Ludin Mccurdy MD ADM AUTHOR: Rosalind Mendez * ALL edits or amendments must be made on the electronic/computer document * General Post-op: day 8 Status post: 1. Debridement of the sternal wound. 2. Placement of wound VAC. Review of Systems Constitutional: Denies: chills, fatigue, generalized weakness. Skin: Denies: abrasion, bruising, ecchymosis. Allergy/Immun: Denies: allergic reaction, hives, rhinorrhea. Eyes: Denies: redness, visual loss/blurred, eye pain. Respiratory: Denies: PETERSEN (dyspnea on exertion), pleuritic pain, productive cough (sputum). Cardiovascular: Denies: chest pain, palpitations. GI: Denies: abdominal pain, nausea, vomiting. : Denies: dysuria, flank pain. Musculoskeletal: Denies: arthritis, joint pain, neck pain. Heme: Denies: adenopathy, bleeding, petechiae. Endocrine: Denies: cold intolerance, heat intolerance, polyuria. Neuro: Denies: bladder dysfunction, seizure, syncope. Psych: [...] hour I O ending at 0700: 08/24 0708/23 1900 Intake Total 250 650 Output Total [...] in place HEENT: anicteric, mucosal membranes moist, pupils reactive to light Neck: full range of motion, non-tender Cardiovascular: normal heart sounds, regular rate rhythm, wound vac in place to sternum Respiratory: aerating well, symmetric expansion, no distress Abdomen: soft, non-tender Genitourinary: urine Extremities: dry, moves all Musculoskeletal: full range of motion, painless range of motion Skin: dry, intact Psychiatry: normal affect, normal mood Diagnosis, Assessment Plan Free Text A P: This is a 58-year-old gentleman with past medical history of coronary artery disease status post coronary artery bypass graft CABG x 4 (MITCHELL-LAD, SVG-OM1, SVG-OM2, SVG-PDA)on 08/02/[address] Mccurdy. He has a history of temporal arteritis on chronic prednisone, diverticulitis, gout, hypertension, hyperlipidemia. His postop course, he did very well. Working with physical therapy. He was mobile, walking with PT OT. His wounds were clean and dry. There was no drainage upon discharge. He was discharged on postop day 7. He was discharged on 08/09/2022. He reports about 2 or 3 days ago he started to notice increased drainage in his distal sternal wound. He also reports having chills at night. The patient admits to not checking his temperature. The patient denies any nausea or vomiting, denies any shortness of breath, does complain of right-sided chest wall pain. Patient is admitted for observation for sternal wound drainage Assessment/plan 1. Coronary artery disease Status post coronary artery bypass graft surgery on 08/02/2022 2. Sternal wound drainage Obtain CT noncontrast chest 3. Hypertension 4. Hyperlipidemia Patient will be admitted for investigation of sternal wound drainage. Will obtain CT noncontrast of the chest. DVT studies of the lower extremities We will start IV antibiotics, routine labs. Further recommendations to follow 08/17/22 POD 1 08/18/22 Continue abx as per ID Wound care team to change wound vac Labs reviewed Transfer to CVN 1 08/19/22 Patient in stable condition, no complaints, afebrile Reviewed labs Wound vac changed per wound care team On room air Antibiotics per ID, PICC line ordered for home antibiotics Discharge home soon 08/20/22 Patient doing well Denies pain Breathing comfortable on room air Encourage I-S use and mobilization Awaiting PICC line and insurance approval for home antibiotics 08/21/22 Patient resting comfortable, on room air PICC line placed Home antibiotics arranged by employment evaluator/case manager Pending home wound vac Encourage mobilization and [...] VAC in place. Outpatient home health and wound care being arranged Respiratory: On room air 99% Cardiac: Remains sinus rhythm Patient was seen and examined by Dr. Mccurdy Home once IV antibiotics and wound VAC arranged 08/24/22 AAOx3 Patient resting comfortable, denies complaints Afebrile Labs reviewed On IV antibiotics as per ID. PICC line in place, outpatient IV antibiotics being arranged Wound VAC in place. Case management working on outpatient wound vac. Respiratory: On room air 99% Cardiac: Remains sinus rhythm Patient was seen and examined by Dr. Mccurdy. Home once IV antibiotics and wound VAC arranged. Per nurse, awaiting insurance approval for wound VAC at 1138 at 1837 [facility] #:[id number] END OF [id number] 20:01:00 [facility] ([facility]) Infectious Dis. Progress Note REPORT#:[id number] REPORT STATUS: Signed DATE:08/23/22 TIME: 2000 PATIENT: MARY DALY UNIT #: [id number] ROOM/BED: [place] [id number] : 53 AGE: 66 SEX: M ATTEND: Ludin Mccurdy MD ADM AUTHOR: Dafne Granda MD * ALL edits or amendments must be made on the electronic/computer document * Subjective HPI: This is a 58-year-old male patient with history of coronary artery disease status post CABG on the who presents to the hospital with drainage from his distal sternal wound along with chills On the he underwent debridement of the sternal wound and wound VAC placement His cultures are growing Staph aureus. He has been started on cefazolin 2 g every 8. Patient reports: No: cough, diarrhea, fever, headache, nausea, shortness of breath. Portions of this section were scribed by Ro Yost on 08/23/22 at 2005 Review of Systems Free Text ROS Notes Free Text ROS Notes: 14 systems reviewed and negative apart from pertinent points in the HPI Portions of this section were scribed by Ro Yost on 08/23/22 at 2005 Objective General VS/I O: Vital Signs Date Temp Pulse Resp B/P B/P Mean Pulse Ox FiO2 08/22-08/23 97.9-98.2 61-76 13-24 117-164/70-85 0.0-104 92-99 21 Last Documented: Result Date Time Pulse Ox 97 08/23 1944 B/P 158/75 08/23 1944 B/P Mean 0.0 08/23 1944 O2 Delivery Room air 08/23 1944 Temp 98.2 08/23 1944 Pulse 75 08/23 1944 Resp 13 08/23 1944 FiO2 21 08/22 2037 O2 Flow Rate 2 08/16 1400 Vital Signs: Date Time Temp Pulse Resp B/P B/P Pulse O2 O2 Flow FiO2 Mean Ox Delivery Rate 08/23 1944 98.2 75 13 158/75 0.0 97 Room air 08/23 1654 98.1 64 20 164/85 0.0 99 Room air 08/23 1200 97.9 61 22 150/73 0.0 97 Room air 08/23 0840 98.1 76 20 117/70 0.0 96 Room air 08/23 0756 97 Room air 08/23 0250 97.9 67 22 148/76 99.9 92 Room air 08/23 0000 62 08/23 0000 23 149/78 104 94 08/22 2319 98.1 63 22 142/82 102.3 93 Room air 08/22 2037 97 Room air 08/22 67 08/22 2016 24 150/79 104 95 [...] no rub Respiratory: clear to auscultation, symmetric expansion Abdomen: non-tender, normal bowel sounds Extremities: moves all, normal capillary refill Musculoskeletal: full range of motion, normal inspection Results Findings/Data: Laboratory Tests 08/23 526 Chemistry [...] % (Auto) (14.0 - 32.0 %) 21.3 Brooke % (Auto) (4.8 - 9.0 %) 11.0 H Eos % (Auto) (0.3 - 3.7 %) 2.4 Baso % (Auto) (0.0 - 2.0 %) 0.5 Neut # (Auto) (2.0 - 7.6 x10 3/uL) 6.83 Lymph # (Auto) (1.0 - 3.8 x10 3/uL) 2.26 Brooke # (Auto) (0.1 - 0.8 x10 3/uL) 1.17 H Eos # (Auto) (0.0 - 0.2 x10 3/uL) 0.26 H Baso # (Auto) (0.0 - 0.2 x10 3/uL) 0.05 Abs Immat Gran (auto) (0.00 - 0.03 x10 3/uL) 0.06 H Add Manual Diff NO Immature Gran % (0.0 - 2.0 %) 0.6 Nucleated RBC % (0 - 0 %) 0.0 Nucleated RBCs # (Man) (0.0 - 0.1 x10 3/uL) 0.00 Laboratory Tests: 08/23 0256 Chemistry Sodium (134 - 147 mEq/L) [...] (Auto) (14.0 - 32.0 %) 21.3 18.1 Brooke % (Auto) (4.8 - 9.0 %) 11.0 H 9.7 H Eos % (Auto) (0.3 - 3.7 %) 2.4 2.4 Baso % (Auto) (0.0 - 2.0 %) 0.5 0.3 Neut # (Auto) (2.0 - 7.6 x10 3/uL) 6.83 8.74 H Lymph # (Auto) (1.0 - 3.8 x10 3/uL) 2.26 2.30 Brooke # (Auto) (0.1 - 0.8 x10 3/uL) 1.17 H 1.23 H Eos # (Auto) (0.0 - 0.2 x10 3/uL) 0.26 H 0.31 H Baso # (Auto) (0.0 - 0.2 x10 3/uL) 0.05 0.04 Abs Immat Gran (auto) (0.00 - 0.03 x10 3/uL) 0.06 H 0.09 H Add Manual Diff NO NO Immature Gran % (0.0 - 2.0 %) 0.6 0.7 Nucleated RBC % (0 - 0 %) 0.0 0.0 Nucleated RBCs # (Man) (0.0 - 0.1 x10 3/uL) 0.00 0.00 Recent Impressions: RADIOLOGY - XR CHEST 1 V 08/22 802 Report Impression - Status: SIGNED Entered: 08/22/2022820 IMPRESSION: Grossly stable exam. Impression By: GeronimoSWSerina - Allan Diana M.D. Medication(s) Ordered: Anti-Infective Agents Sig/Cory Start time Last Medication Dose Route Stop Time Status Admin Cefazolin Sodium 2 GM Q8H 08/17 1000 AC 08/23 IV 08/26 0959 1652 Blood Formation,Coagulation Sig/Cory Start time Last Medication Dose Route Stop Time Status Admin Clopidogrel Bisulfate 75 MG DAILY 08/16 899 AC 08/23 PO 09/15 0859 0923 Cardiovascular Drugs Sig/Cory Start time Last Medication Dose Route Stop Time Status Admin Amiodarone HCl 200 MG DAILY 08/16 09 AC 08/23 PO 09/15 0859 0923 Atorvastatin Calcium 40 MG 08/15 AC 08/22 PO 09/14 Metoprolol Tartrate 12.5 MG BID 08/15 2099 AC 08/23 PO 09/14 2058 0924 Central Nervous [...] Sulfate 100 ML ASDIR PRN 08/16 1330 AC IV 09/15 1329 Magnesium Sulfate 50 ML [...] 2058 0924 Sennosides 17.2 MG BEDTIME 08/16 2099 AC 08/22 PO 09/15 Ondansetron HCl 4 MG Q6H PRN PRN 08/16 1330 AC IV 09/15 1329 Pantoprazole 40 MG DAILY PRN 08/16 1999 AC 08/22 PO 09/14 195 1014 Hormones And Synthetic Substit Sig/Cory Start [...] No acute cardiopulmonary findings. Impression By: Fani Santiago M.D. RADIOLOGY - XR CHEST 1 V 08/22 0803 Report Impression - Status: SIGNED Entered: 08/22/2022 0821 IMPRESSION: Grossly stable exam. Impression By: GeronimoSWSerina Diana M.D. Portions of this section were scribed by Ro Yost on 08/23/22 at 2004 Treatment Prophylaxis Treatment Prophylaxis Lines: PICC (08/20) CVC/PICC documentation: The data below has been imported from nursing documentation. Any exceptions have been noted below under Provider comments. CVC/PICC insertion date/time: PICC single lumen Brachial vein Right Inserted 1200 Provider comments on imported nursing data: [] Portions of this section were scribed by Ro Yost on 08/23/22 at 2004 Diagnosis, Assessment Plan Free Text A P: 1-Sternal wound infection with MSSA status post debridement postoperative day #2 2-Coronary disease status post CABG 3-History of temporal arteritis 4-History of diverticulitis Recommendations Continue cefazolin at 2 g IV every 8 We will order PICC line placement and home IV antibiotics via the infusion center followed by oral Keflex until complete resolution of signs and symptoms of infection followed by a few months of suppressive therapy as well 08/19 Awaiting PICC line placement Home IV antibiotics have been ordered and pending insurance approval 08/20 Home IV antibiotics have been approved by [facility] infusion Plan cefazolin for 6 weeks PICC line is pending Wound VAC is pending for home Likely discharge is Tuesday08/23/22 cont on cefazolin for 6 week til 09/27/22 PICC line placed 08/20 f/u esr and crp wound vac in place Portions of this section were scribed by Ro Yost on 08/23/22 at 2005 at 0818 RPT #:[id number] END OF [id number] 07:11:00 [facility] ([facility]) Cardiology Progress Note REPORT#:[id number] REPORT STATUS: Signed DATE:08/23/22 TIME: 710 PATIENT: MARY DALY UNIT #: [id number] ROOM/BED: [place] [id number] : 53 AGE: 66 SEX: M ATTEND: Ludin Mccurdy MD ADM AUTHOR: Denton Chaparro MD * ALL edits or amendments must be made on the electronic/computer document * Subjective Chief complaint: Pain at [...] O2 Flow FiO2 Mean Ox Delivery Rate 08/23 0250 97.9 67 22 148/76 99.9 92 Room air 08/23 0000 62 07 0000 23 149/78 104 94 / 2319 [...] Sterile Water (WATER FOR INJECTION) 10 ML .STK-MED ONE IV (DC) Tramadol HCl (ULTRAM) 25 MG Q6H PRN PO Sodium Chloride (SODIUM CHLORIDE) 10 ML BID IV Sodium Chloride (SODIUM CHLORIDE) 10 ML ASDIR PRN IV Carboxymethylcellulose Sodium (REFRESH TEARS) 1 DROP QID EACH EYE Cefazolin Sodium (KEFZOL OR ANCEF) 2 GM Q8H IV Sodium Chloride (SODIUM CHLORIDE) 20 ML ASDIR IV Polyethylene Glycol (MIRALAX) 17 GM DAILY PO Docusate Sodium (COLACE) 100 MG BID PO Sennosides (Senna Lax 8.6 MG TABLET) 17.2 MG BEDTIME PO Acetaminophen (TYLENOL) 650 MG Q4H PRN PRN PO Acetaminophen (TYLENOL) 650 MG Q4H PRN PRN RECTAL Dextrose/Water (DEXTROSE 10% IN WATER) 125 ML ASDIR PRN IV (CKD) Dextrose/Water (DEXTROSE 10% IN WATER) 250 ML ASDIR PRN IV (CKD) Glucagon (GLUCAGON) 1 MG ASDIR PRN IM Magnesium Sulfate (MAGNESIUM SULFATE 4GM/SWFI 100ML) 100 ML ASDIR PRN IV Magnesium Sulfate (MAGNESIUM SULFATE 2GM/SWFI 50ML) 50 ML ASDIR PRN IV Magnesium Sulfate/Dextrose (MAGNESIUM SULFATE 1GM/D5W 100ML) 100 ML ASDIR PRN IV Ondansetron [...] meningismus, no bruit/NL carotids, no JVD, no lymphadenopathy, no masses or swelling Cardiovascular: CV assessment: regular rate and rhythm Respiratory: decreased breath sounds, no distress Abdomen: non-tender, normal bowel sounds, no distention, no guarding, no mass/ organomegaly, no pulsatile mass, no rebound Upper extremity: UE assessment: normal capillary refill, no edema Lower extremity: LE assessment: normal capillary refill, no edema Diagnosis, Assessment Plan Free Text DxA P Notes Free Text DxA P Notes: 1. Coronary artery disease Status post coronary artery bypass graft surgery on 08/02/2022 2. Sternal wound drainage S/P wound surgery/debridement 3. Hypertension 4. Hyperlipidemia at 0711 [facility] #:[id number] END OF [id number] 05:37:00 [facility] ([facility]) Cardiothoracic Surgery Prog REPORT#:[id number] REPORT STATUS: Signed DATE:08/23/22 TIME: 536 PATIENT: MARY DALY UNIT #: [id number] ROOM/BED: [place] [id number] : 53 AGE: 66 SEX: M ATTEND: Ludin Mccurdy MD ADM AUTHOR: Rosalind Mendez Physic * ALL edits or amendments must be made on the electronic/computer document * General Post-op: day 7 Status post: 1. Debridement of the sternal wound. 2. Placement of wound VAC. Review of Systems Constitutional: Denies: chills, fatigue, generalized weakness. Skin: Denies: abrasion, bruising, ecchymosis. Allergy/Immun: Denies: allergic reaction, hives, rhinorrhea. Eyes: Denies: redness, visual loss/blurred, eye pain. Respiratory: Denies: PETERSEN (dyspnea on exertion), pleuritic pain, productive cough (sputum). Cardiovascular: Denies: chest pain, palpitations. GI: Denies: abdominal pain, nausea, vomiting. : Denies: dysuria, flank pain. Musculoskeletal: Denies: arthritis, joint pain, neck pain. Heme: Denies: adenopathy, bleeding, petechiae. Endocrine: Denies: cold intolerance, heat intolerance, polyuria. Neuro: Denies: bladder dysfunction, seizure, syncope. Psych: Denies: anxiety, insomnia. All systems rev neg: except as marked Objective General VS/I O Last Documented: Result Date Time Pulse Ox 92 08/23 0250 B/P 148/76 08/23 0250 B/P Mean 99.9 08/23 0250 O2 Delivery Room air 07/03 0250 Temp 97.9 08/23 0250 Pulse 67 08/23 0250 Resp 22 08/23 0250 FiO2 21 08/22 2037 O2 Flow Rate 2 08/16 1400 24 [...] in place HEENT: anicteric, mucosal membranes moist, pupils reactive to light Neck: full range of motion, non-tender Cardiovascular: normal heart sounds, regular rate rhythm, wound vac in place to sternum Respiratory: aerating well, symmetric expansion, no distress Abdomen: soft, non-tender Genitourinary: urine Extremities: dry, moves all Musculoskeletal: full range of motion, painless range of motion Skin: dry, intact Psychiatry: normal affect, normal mood Diagnosis, Assessment Plan Free Text A P: This is a 58-year-old gentleman with past medical history of coronary artery disease status post coronary artery bypass graft CABG x 4 (MITCHELL-LAD, SVG-OM1, SVG-OM2, SVG-PDA)on 08/02/[address] Mccurdy. He has a history of temporal arteritis on chronic prednisone, diverticulitis, gout, hypertension, hyperlipidemia. His postop course, he did very well. Working with physical therapy. He was mobile, walking with PT OT. His wounds were clean and dry. There was no drainage upon discharge. He was discharged on postop day 7. He was discharged on 08/09/2022. He reports about 2 or 3 days ago he started to notice increased drainage in his distal sternal wound. He also reports having chills at night. The patient admits to not checking his temperature. The patient denies any nausea or vomiting, denies any shortness of breath, does complain of right-sided chest wall pain. Patient is admitted for observation for sternal wound drainage Assessment/plan 1. Coronary artery disease Status post coronary artery bypass graft surgery on 08/02/2022 2. Sternal wound drainage Obtain CT noncontrast chest 3. Hypertension 4. Hyperlipidemia Patient will be admitted for investigation of sternal wound drainage. Will obtain CT noncontrast of the chest. DVT studies of the lower extremities We will start IV antibiotics, routine labs. Further recommendations to follow 08/17/22 POD 1 08/18/22 Continue abx as per ID Wound care team to change wound vac Labs reviewed Transfer to CVN 1 08/19/22 Patient in stable condition, no complaints, afebrile Reviewed labs Wound vac changed per wound care team On room air Antibiotics per ID, PICC line ordered for home antibiotics Discharge home soon 08/20/22 Patient doing well Denies pain Breathing comfortable on room air Encourage I-S use and mobilization Awaiting PICC line and insurance approval for home antibiotics 08/21/22 Patient resting comfortable, on room air PICC line placed Home antibiotics arranged by employment evaluator/case manager Pending home wound vac Encourage mobilization and [...] VAC in place. Outpatient home health and wound care being arranged Respiratory: On room air 99% Cardiac: Remains sinus rhythm Patient was seen and examined by Dr. Mccurdy Home once IV antibiotics and wound VAC arranged at 0716 at 1842 RPT #:[id number] END OF [id number] 10:05:00 [facility] ([facility]) Cardiothoracic Surgery Prog REPORT#:[id number] REPORT STATUS: Signed DATE:08/22/22 TIME: 100 PATIENT: MARY DALY UNIT #: [id number] ROOM/BED: [place] [id number] : 53 AGE: 67 SEX: M ATTEND: Ludin Mccurdy MD ADM AUTHOR: Ludin Mccurdy MD * ALL edits or amendments must be made on the electronic/computer document * General Post-op: day 6 Status post: 1. Debridement of the sternal wound. 2. Placement of wound VAC. Review of Systems Constitutional: Denies: chills, fatigue, generalized weakness. Skin: Denies: abrasion, bruising, ecchymosis. Allergy/Immun: Denies: allergic reaction, hives, rhinorrhea. Eyes: Denies: redness, visual loss/blurred, eye pain. Respiratory: Denies: PETERSEN (dyspnea on exertion), pleuritic pain, productive cough (sputum). Cardiovascular: Denies: chest pain, palpitations. GI: Denies: abdominal pain, nausea, vomiting. : Denies: dysuria, flank pain. Musculoskeletal: Denies: arthritis, joint pain, neck pain. Heme: Denies: adenopathy, bleeding, petechiae. Endocrine: Denies: cold intolerance, heat intolerance, polyuria. Neuro: Denies: bladder dysfunction, seizure, syncope. Psych: Denies: anxiety, insomnia. All systems rev neg: except as marked Objective General VS/I O Last Documented: Result Date Time Pulse Ox 95 08/22 0802 B/P 138/86 08/22 0802 B/P Mean 103.6 [...] set between the solid lines has been imported from the dietitian's assessment. BMI Calculated: 25.1 Nutrition related diagnosis: Nutrition diagnosis details: Nutrition problem: Nutrition etiology: Nutrition signs and symptoms: Nutrition prescription: Dietitian name: Assessment completed: Physical Exam General appearance: alert, awake, oriented Wound/incision: Location: sternum Site condition: wound vac in place HEENT: anicteric, mucosal membranes moist, pupils reactive to light Neck: full range of motion, non-tender Cardiovascular: normal heart sounds, regular rate rhythm, wound vac in place to sternum [...] Sodium Chloride (SODIUM CHLORIDE) 10 ML ASDIR PRN IV Carboxymethylcellulose Sodium (REFRESH TEARS) 1 DROP QID EACH EYE Cefazolin Sodium (KEFZOL OR ANCEF) 2 GM Q8H IV Sodium Chloride (SODIUM CHLORIDE) 20 ML ASDIR IV Mupirocin (BACTROBAN 2% 22 GM OINTMENT) 1 APPLIC BID NASAL (DC) Polyethylene Glycol (MIRALAX) 17 GM DAILY PO Docusate Sodium (COLACE) 100 MG BID PO Sennosides (Senna Lax 8.6 MG TABLET) 17.2 MG BEDTIME PO Acetaminophen (TYLENOL) 650 MG Q4H PRN PRN PO Acetaminophen (TYLENOL) 650 MG Q4H PRN PRN RECTAL Dextrose/Water (DEXTROSE 10% IN WATER) 125 ML ASDIR PRN IV (CKD) Dextrose/Water (DEXTROSE 10% IN WATER) 250 ML ASDIR PRN IV (CKD) Glucagon (GLUCAGON) 1 MG ASDIR PRN IM Magnesium Sulfate (MAGNESIUM SULFATE 4GM/SWFI 100ML) 100 ML ASDIR PRN IV Magnesium Sulfate (MAGNESIUM SULFATE 2GM/SWFI 50ML) 50 ML ASDIR PRN IV Magnesium Sulfate/Dextrose (MAGNESIUM SULFATE 1GM/D5W 100ML) 100 ML ASDIR PRN IV Ondansetron [...] % (Auto) (14.0 - 32.0 %) 18.1 Brooke % (Auto) (4.8 - 9.0 %) 9.7 H Eos % (Auto) (0.3 - 3.7 %) 2.4 Baso % (Auto) (0.0 - 2.0 %) 0.3 Neut # (Auto) (2.0 - 7.6 x10 3/uL) 8.74 H Lymph # (Auto) (1.0 - 3.8 x10 3/uL) 2.30 Brooke # (Auto) (0.1 - 0.8 x10 3/uL) 1.23 H Eos # (Auto) (0.0 - 0.2 x10 3/uL) 0.31 H Baso # (Auto) (0.0 - 0.2 x10 3/uL) 0.04 Abs Immat Gran (auto) (0.00 - 0.03 x10 3/uL) 0.09 H Add Manual Diff NO Immature Gran % (0.0 - 2.0 %) 0.7 Nucleated RBC % (0 - 0 %) 0.0 Nucleated RBCs # (Man) (0.0 - 0.1 x10 3/uL) 0.00 Radiology data: Recent Impressions: RADIOLOGY - XR CHEST 1 V 08/22 0803 Report Impression - Status: SIGNED Entered: 08/22/2022 0821 IMPRESSION: Grossly stable exam. Impression By: Lewis - Allan Diana M.D. Results: labs reviewed, vital signs stable, rythm personally rev'd, x-ray personally reviewed, current med profile rev'd Diagnosis, Assessment Plan Free Text A P: This is a 58-year-old gentleman with past medical history of coronary artery disease status post coronary artery bypass graft CABG x 4 (MITCHELL-LAD, SVG-OM1, SVG-OM2, SVG-PDA)on 08/02/[address] Mccurdy. He has a history of temporal arteritis on chronic prednisone, diverticulitis, gout, hypertension, hyperlipidemia. His postop course, he did very well. Working with physical therapy. He was mobile, walking with PT OT. His wounds were clean and dry. There was no drainage upon discharge. He was discharged on postop day 7. He was discharged on 08/09/2022. He reports about 2 or 3 days ago he started to notice increased drainage in his distal sternal wound. He also reports having chills at night. The patient admits to not checking his temperature. The patient denies any nausea or vomiting, denies any shortness of breath, does complain of right-sided chest wall pain. Patient is admitted for observation for sternal wound drainage Assessment/plan 1. Coronary artery disease Status post coronary artery bypass graft surgery on 08/02/2022 2. Sternal wound drainage Obtain CT noncontrast chest 3. Hypertension 4. Hyperlipidemia Patient will be admitted for investigation of sternal wound drainage. Will obtain CT noncontrast of the chest. DVT studies of the lower extremities We will start IV antibiotics, routine labs. Further recommendations to follow 08/17/22 POD 1 08/18/22 Continue abx as per ID Wound care team to change wound vac Labs reviewed Transfer to CVN 1 08/19/22 Patient in stable condition, no complaints, afebrile Reviewed labs Wound vac changed per wound care team On room air Antibiotics per ID, PICC line ordered for home antibiotics Discharge home soon 08/20/22 Patient doing well Denies pain Breathing comfortable on room air Encourage I-S use and mobilization Awaiting PICC line and insurance approval for home antibiotics 08/21/22 Patient resting comfortable, on room air PICC line placed Home antibiotics arranged by employment evaluator/case manager Pending home wound vac Encourage mobilization and I-S use Discharge home once abx and wound vac arranged. 08/22/22 Patient doing well Afebirle Continue antibiotics Discharge home once wound vac set up Encourage I-S use and ambulation at 2031 RPT #:[id number] END OF [id number] 13:45:00 [facility] ([facility]) Cardiothoracic Surgery Prog REPORT#:[id number] REPORT STATUS: Signed DATE:08/21/22 TIME: 1344 PATIENT: MARY DALY UNIT #: [id number] ROOM/BED: [place] [address] : 53 AGE: 66 SEX: M ATTEND: Ludin Mccurdy MD ADM AUTHOR: Ludin Mccurdy MD * ALL edits or amendments must be made on the electronic/computer document * General Post-op: day 5 Status post: 1. Debridement of the sternal wound. 2. Placement of wound VAC. Review of Systems Constitutional: Denies: chills, fatigue, generalized weakness. Skin: Denies: abrasion, bruising, ecchymosis. Allergy/Immun: Denies: allergic reaction, hives, rhinorrhea. Eyes: Denies: redness, visual loss/blurred, eye pain. Respiratory: Denies: PETERSEN (dyspnea on exertion), pleuritic pain, productive cough (sputum). Cardiovascular: Denies: chest pain, palpitations. GI: Denies: abdominal pain, nausea, vomiting. : Denies: dysuria, flank pain. Musculoskeletal: Denies: arthritis, joint pain, neck pain. Heme: Denies: adenopathy, bleeding, petechiae. Endocrine: Denies: cold intolerance, heat intolerance, polyuria. Neuro: Denies: bladder dysfunction, seizure, syncope. Psych: [...] set between the solid lines has been imported from the dietitian's assessment. BMI Calculated: 26.0 Nutrition related diagnosis: Nutrition diagnosis details: Nutrition problem: Nutrition etiology: Nutrition signs and symptoms: Nutrition prescription: Dietitian name: Assessment completed: Physical Exam General appearance: alert, awake, oriented Wound/incision: Location: sternum Site condition: wound vac in place HEENT: anicteric, mucosal membranes moist, pupils reactive to light Neck: full range of motion, non-tender Cardiovascular: normal heart sounds, regular rate rhythm, wound vac in place to sternum [...] Sodium Chloride (SODIUM CHLORIDE) 10 ML ASDIR PRN IV Carboxymethylcellulose Sodium (REFRESH TEARS) 1 DROP QID EACH EYE Cefazolin Sodium (KEFZOL OR ANCEF) 2 GM Q8H IV Sodium Chloride (SODIUM CHLORIDE) 20 ML ASDIR IV Mupirocin (BACTROBAN 2% 22 GM OINTMENT) 1 APPLIC BID NASAL Polyethylene Glycol (MIRALAX) 17 GM DAILY PO Docusate Sodium (COLACE) 100 MG BID PO Sennosides (Senna Lax 8.6 MG TABLET) 17.2 MG BEDTIME PO Acetaminophen (TYLENOL) 650 MG Q4H PRN PRN PO Acetaminophen (TYLENOL) 650 MG Q4H PRN PRN RECTAL Dextrose/Water (DEXTROSE 10% IN WATER) 125 ML ASDIR PRN IV (CKD) Dextrose/Water (DEXTROSE 10% IN WATER) 250 ML ASDIR PRN IV (CKD) Glucagon (GLUCAGON) 1 MG ASDIR PRN IM Magnesium Sulfate (MAGNESIUM SULFATE 4GM/SWFI 100ML) 100 ML ASDIR PRN IV Magnesium Sulfate (MAGNESIUM SULFATE 2GM/SWFI 50ML) 50 ML ASDIR PRN IV Magnesium Sulfate/Dextrose (MAGNESIUM SULFATE 1GM/D5W 100ML) 100 ML ASDIR PRN IV Ondansetron [...] % (Auto) (14.0 - 32.0 %) 20.2 Brooke % (Auto) (4.8 - 9.0 %) 10.0 H Eos % (Auto) (0.3 - 3.7 %) 3.8 H Baso % (Auto) (0.0 - 2.0 %) 0.7 Neut # (Auto) (2.0 - 7.6 x10 3/uL) 6.75 Lymph # (Auto) (1.0 - 3.8 x10 3/uL) 2.11 Brooke # (Auto) (0.1 - 0.8 x10 3/uL) 1.05 H Eos # (Auto) (0.0 - 0.2 x10 3/uL) 0.40 H Baso # (Auto) (0.0 - 0.2 x10 3/uL) 0.07 Abs Immat Gran (auto) (0.00 - 0.03 x10 3/uL) 0.08 H Add Manual Diff NO Immature Gran % (0.0 - 2.0 %) 0.8 Nucleated RBC % (0 - 0 %) 0.0 Nucleated RBCs # (Man) (0.0 - 0.1 x10 3/uL) 0.00 Radiology data: Recent Impressions: RADIOLOGY - XR CHEST 1 V 08/21 0815 Report Impression - Status: SIGNED Entered: 08/21/2022 0835 IMPRESSION: No acute cardiopulmonary findings. Impression By: Fani - Krishna Santiago M.D. Results: labs reviewed, vital signs stable, rythm personally rev'd, x-ray personally reviewed, current med profile rev'd Diagnosis, Assessment Plan Free Text A P: This is a 58-year-old gentleman with past medical history of coronary artery disease status post coronary artery bypass graft CABG x 4 (MITCHELL-LAD, SVG-OM1, SVG-OM2, SVG-PDA)on 08/02/[address] Mccurdy. He has a history of temporal arteritis on chronic prednisone, diverticulitis, gout, hypertension, hyperlipidemia. His postop course, he did very well. Working with physical therapy. He was mobile, walking with PT OT. His wounds were clean and dry. There was no drainage upon discharge. He was discharged on postop day 7. He was discharged on 08/09/2022. He reports about 2 or 3 days ago he started to notice increased drainage in his distal sternal wound. He also reports having chills at night. The patient admits to not checking his temperature. The patient denies any nausea or vomiting, denies any shortness of breath, does complain of right-sided chest wall pain. Patient is admitted for observation for sternal wound drainage Assessment/plan 1. Coronary artery disease Status post coronary artery bypass graft surgery on 08/02/2022 2. Sternal wound drainage Obtain CT noncontrast chest 3. Hypertension 4. Hyperlipidemia Patient will be admitted for investigation of sternal wound drainage. Will obtain CT noncontrast of the chest. DVT studies of the lower extremities We will start IV antibiotics, routine labs. Further recommendations to follow 08/17/22 POD 1 08/18/22 Continue abx as per ID Wound care team to change wound vac Labs reviewed Transfer to CVN 1 08/19/22 Patient in stable condition, no complaints, afebrile Reviewed labs Wound vac changed per wound care team On room air Antibiotics per ID, PICC line ordered for home antibiotics Discharge home soon 08/20/22 Patient doing well Denies pain Breathing comfortable on room air Encourage I-S use and mobilization Awaiting PICC line and insurance approval for home antibiotics 08/21/22 Patient resting comfortable, on room air PICC line placed Home antibiotics arranged by employment evaluator/case manager Pending home wound vac Encourage mobilization and I-S use Discharge home once abx and wound vac arranged. at 1843 RPT #:[id number] END OF [id number] 15:46:00 [facility] ([facility]) Infectious Dis. Progress Note REPORT#:[id number] REPORT STATUS: Signed DATE:08/20/22 TIME: 1545 PATIENT: MARY DALY UNIT #: [id number] ROOM/BED: 3353-1 : 53 AGE: 66 SEX: M ATTEND: Ludin Mccurdy MD ADM AUTHOR: Leo Durand MD * ALL edits or amendments must be made on the electronic/computer document * Subjective HPI: This is a 58-year-old male patient with history of coronary artery disease status post CABG on the who presents to the hospital with drainage from his distal sternal wound along with chills On the he underwent debridement of the sternal wound and wound VAC placement His cultures are growing Staph aureus. He has been started on cefazolin 2 g every 8. Patient reports: No: abdominal pain, back pain, burning with urination, cough, feeling better, fever, headache, nausea. Review of Systems Free Text ROS Notes Free Text ROS Notes: 14 systems reviewed and negative apart from pertinent points in the HPI Objective Physical Exam Wound/incision: Location: Sternal wound dressing intact. vac present Head/Eyes: atraumatic, clear cornea ENT: moist mucosal membranes, normal dentition Cardiovascular: normal heart sounds, no rub Respiratory: clear to auscultation, symmetric expansion Abdomen: non-tender, normal bowel sounds Extremities: moves all, normal capillary refill Musculoskeletal: full range of motion, normal inspection Results Findings/Data: Laboratory Tests 08/20 0525 Chemistry [...] % (Auto) (14.0 - 32.0 %) 23.0 Brooke % (Auto) (4.8 - 9.0 %) 12.2 H Eos % (Auto) (0.3 - 3.7 %) 3.3 Baso % (Auto) (0.0 - 2.0 %) 0.6 Neut # (Auto) (2.0 - 7.6 x10 3/uL) 6.29 Lymph # (Auto) (1.0 - 3.8 x10 3/uL) 2.41 Brooke # (Auto) (0.1 - 0.8 x10 3/uL) 1.28 H Eos # (Auto) (0.0 - 0.2 x10 3/uL) 0.35 H Baso # (Auto) (0.0 - 0.2 x10 3/uL) 0.06 Abs Immat Gran (auto) (0.00 - 0.03 x10 3/uL) 0.08 H Add Manual Diff NO Immature Gran % (0.0 - 2.0 %) 0.8 Nucleated RBC % (0 - 0 %) 0.0 Nucleated RBCs # (Man) (0.0 - 0.1 x10 3/uL) 0.00 Diagnosis, Assessment Plan Free Text A P: 1-Sternal wound infection with MSSA status post debridement postoperative day #2 2-Coronary disease status post CABG 3-History of temporal arteritis 4-History of diverticulitis Recommendations Continue cefazolin at 2 g IV every 8 We will order PICC line placement and home IV antibiotics via the infusion center followed by oral Keflex until complete resolution of signs and symptoms of infection followed by a few months of suppressive therapy as well 08/19 Awaiting PICC line placement Home IV antibiotics have been ordered and pending insurance approval 08/20 Home IV antibiotics have been approved by [facility] cefazolin for 6 weeks PICC line is pending Wound VAC is pending for home Likely discharge is Tuesday at 3474 RPT #:[id number] END OF [id number] 15:46:00 [facility] ([facility]) Cardiothoracic Surgery Prog REPORT#:[id number] REPORT STATUS: Signed DATE:08/20/22 TIME: 1546 PATIENT: MARY DALY UNIT #: [id number] ROOM/BED: [place] [address] : 53 AGE: 66 SEX: M ATTEND: Ludin Mccurdy MD ADM AUTHOR: Ludin Mccurdy MD * ALL edits or amendments must be made on the electronic/computer document * General Post-op: day 4 Status post: 1. Debridement of the sternal wound. 2. Placement of wound VAC. Review of Systems Constitutional: Denies: chills, fatigue, generalized weakness. Skin: Denies: abrasion, bruising, ecchymosis. Allergy/Immun: Denies: allergic reaction, hives, rhinorrhea. Eyes: Denies: redness, visual loss/blurred, eye pain. Respiratory: Denies: PETERSEN (dyspnea on exertion), pleuritic pain, productive cough (sputum). Cardiovascular: Denies: chest pain, palpitations. GI: Denies: abdominal pain, nausea, vomiting. : Denies: dysuria, flank pain. Musculoskeletal: Denies: arthritis, joint pain, neck pain. Heme: Denies: adenopathy, bleeding, petechiae. Endocrine: Denies: cold intolerance, heat intolerance, polyuria. Neuro: Denies: bladder dysfunction, seizure, syncope. Psych: [...] set between the solid lines has been imported from the dietitian's assessment. BMI Calculated: 26.0 Nutrition related diagnosis: Nutrition diagnosis details: Nutrition problem: Nutrition etiology: Nutrition signs and symptoms: Nutrition prescription: Dietitian name: Assessment completed: Physical Exam General appearance: alert, awake, oriented Wound/incision: Location: sternum Site condition: wound vac in place HEENT: anicteric, mucosal membranes moist, pupils reactive to light Neck: full range of motion, non-tender Cardiovascular: normal heart sounds, regular rate rhythm, wound vac in place to sternum [...] Sodium Chloride (SODIUM CHLORIDE) 10 ML ASDIR PRN IV Carboxymethylcellulose Sodium (REFRESH TEARS) 1 DROP QID EACH EYE Cefazolin Sodium (KEFZOL OR ANCEF) 2 GM Q8H IV Sodium Chloride (SODIUM CHLORIDE) 20 ML ASDIR IV Mupirocin (BACTROBAN 2% 22 GM OINTMENT) 1 APPLIC BID NASAL Polyethylene Glycol (MIRALAX) 17 GM DAILY PO Docusate Sodium (COLACE) 100 MG BID PO Sennosides (Senna Lax 8.6 MG TABLET) 17.2 MG BEDTIME PO Acetaminophen (TYLENOL) 650 MG Q4H PRN PRN PO Acetaminophen (TYLENOL) 650 MG Q4H PRN PRN RECTAL Dextrose/Water (DEXTROSE 10% IN WATER) 125 ML ASDIR PRN IV (CKD) Dextrose/Water (DEXTROSE 10% IN WATER) 250 ML ASDIR PRN IV (CKD) Glucagon (GLUCAGON) 1 MG ASDIR PRN IM Magnesium Sulfate (MAGNESIUM SULFATE 4GM/SWFI 100ML) 100 ML ASDIR PRN IV Magnesium Sulfate (MAGNESIUM SULFATE 2GM/SWFI 50ML) 50 ML ASDIR PRN IV Magnesium Sulfate/Dextrose (MAGNESIUM SULFATE 1GM/D5W 100ML) 100 ML ASDIR PRN IV Ondansetron [...] % (Auto) (14.0 - 32.0 %) 23.0 Brooke % (Auto) (4.8 - 9.0 %) 12.2 H Eos % (Auto) (0.3 - 3.7 %) 3.3 Baso % (Auto) (0.0 - 2.0 %) 0.6 Neut # (Auto) (2.0 - 7.6 x10 3/uL) 6.29 Lymph # (Auto) (1.0 - 3.8 x10 3/uL) 2.41 Brooke # (Auto) (0.1 - 0.8 x10 3/uL) 1.28 H Eos # (Auto) (0.0 - 0.2 x10 3/uL) 0.35 H Baso # (Auto) (0.0 - 0.2 x10 3/uL) 0.06 Abs Immat Gran (auto) (0.00 - 0.03 x10 3/uL) 0.08 H Add Manual Diff NO Immature Gran % (0.0 - 2.0 %) 0.8 Nucleated RBC % (0 - 0 %) 0.0 Nucleated RBCs # (Man) (0.0 - 0.1 x10 3/uL) 0.00 Radiology data: Recent Impressions: RADIOLOGY - XR CHEST 1 V 08/20 0601 Report Impression - Status: SIGNED Entered: 08/20/2022 4509 IMPRESSION: Grossly stable exam. Impression By: GeronimoSWSerina - Allan Diana M.D. Results: labs reviewed, vital signs stable, rythm personally rev'd, x-ray personally reviewed, current med profile rev'd Diagnosis, Assessment Plan Free Text A P: This is a 58-year-old gentleman with past medical history of coronary artery disease status post coronary artery bypass graft CABG x 4 (MITCHELL-LAD, SVG-OM1, SVG-OM2, SVG-PDA)on 08/02/[address] Mccurdy. He has a history of temporal arteritis on chronic prednisone, diverticulitis, gout, hypertension, hyperlipidemia. His postop course, he did very well. Working with physical therapy. He was mobile, walking with PT OT. His wounds were clean and dry. There was no drainage upon discharge. He was discharged on postop day 7. He was discharged on 08/09/2022. He reports about 2 or 3 days ago he started to notice increased drainage in his distal sternal wound. He also reports having chills at night. The patient admits to not checking his temperature. The patient denies any nausea or vomiting, denies any shortness of breath, does complain of right-sided chest wall pain. Patient is admitted for observation for sternal wound drainage Assessment/plan 1. Coronary artery disease Status post coronary artery bypass graft surgery on 08/02/2022 2. Sternal wound drainage Obtain CT noncontrast chest 3. Hypertension 4. Hyperlipidemia Patient will be admitted for investigation of sternal wound drainage. Will obtain CT noncontrast of the chest. DVT studies of the lower extremities We will start IV antibiotics, routine labs. Further recommendations to follow 08/17/22 POD 1 08/18/22 Continue abx as per ID Wound care team to change wound vac Labs reviewed Transfer to CVN 1 08/19/22 Patient in stable condition, no complaints, afebrile Reviewed labs Wound vac changed per wound care team On room air Antibiotics per ID, PICC line ordered for home antibiotics Discharge home soon 08/20/22 Patient doing well Denies pain Breathing comfortable on room air Encourage I-S use and mobilization Awaiting PICC line and insurance approval for home antibiotics at 1855 RPT #:[id number] END OF [id number] 07:02:00 [facility]) Cardiology Progress Note REPORT#:[id number] REPORT STATUS: Signed DATE:08/20/22 TIME: 701 PATIENT: MARY DALY UNIT #: [id number] ROOM[address]BED: [address] : 53 AGE: 66 SEX: M ATTEND: Ludin Mccurdy MD ADM AUTHOR: Denton Chaparro MD * ALL edits or amendments must be made on the electronic/computer document * Subjective Chief complaint: Pain at [...] O2 Flow FiO2 Mean Ox Delivery Rate 08/20 0401 [...] Sodium Chloride (SODIUM CHLORIDE) 10 ML ASDIR PRN IV Carboxymethylcellulose Sodium (REFRESH TEARS) 1 DROP QID EACH EYE Cefazolin Sodium (KEFZOL OR ANCEF) 2 GM Q8H IV Sodium Chloride (SODIUM CHLORIDE) 20 ML ASDIR IV Mupirocin (BACTROBAN 2% 22 GM OINTMENT) 1 APPLIC BID NASAL Polyethylene Glycol (MIRALAX) 17 GM DAILY PO Docusate Sodium (COLACE) 100 MG BID PO Sennosides (Senna Lax 8.6 MG TABLET) 17.2 MG BEDTIME PO Acetaminophen (TYLENOL) 650 MG Q4H PRN PRN PO Acetaminophen (TYLENOL) 650 MG Q4H PRN PRN RECTAL Dextrose/Water (DEXTROSE 10% IN WATER) 125 ML ASDIR PRN IV (CKD) Dextrose/Water (DEXTROSE 10% IN WATER) 250 ML ASDIR PRN IV (CKD) Glucagon (GLUCAGON) 1 MG ASDIR PRN IM Magnesium Sulfate (MAGNESIUM SULFATE 4GM/SWFI 100ML) 100 ML ASDIR PRN IV Magnesium Sulfate (MAGNESIUM SULFATE 2GM/SWFI 50ML) 50 ML ASDIR PRN IV Magnesium Sulfate/Dextrose (MAGNESIUM SULFATE 1GM/D5W 100ML) 100 ML ASDIR PRN IV Ondansetron [...] meningismus, no bruit/NL carotids, no JVD, no lymphadenopathy, no masses or swelling Cardiovascular: CV assessment: regular rate and rhythm Respiratory: decreased breath sounds, no distress Abdomen: non-tender, normal bowel sounds, no distention, no guarding, no mass/ organomegaly, no pulsatile mass, no rebound Upper extremity: UE assessment: normal capillary refill, no edema Lower extremity: LE assessment: normal capillary refill, no edema Results Radiology data: Recent Impressions: RADIOLOGY - XR CHEST 1 V 08/19 0857 Report Impression - Status: SIGNED Entered: 08/19/2022 1102 IMPRESSION: Stable left dependent atelectasis and small left pleural fluid. Stable cardiomediastinal silhouette. Impression By: [email or web address] - Maik Sandra M.D. Diagnosis, Assessment Plan Free Text DxA P Notes Free Text DxA P Notes: 1. Coronary artery disease Status post coronary artery bypass graft surgery on 08/02/2022 2. Sternal wound drainage S/P wound surgery/debridement 3. Hypertension 4. Hyperlipidemia at 0703 [facility] #:[id number] END OF [id number] 16:08:00 [facility] ([facility]) Infectious Dis. Progress Note REPORT#:[id number] REPORT STATUS: Signed DATE:08/19/22 TIME: 1608 PATIENT: MARY DALY UNIT #: [id number] ROOM/BED: [place] [address] : 53 AGE: 66 SEX: M ATTEND: Ludin Mccurdy MD ADM AUTHOR: Leo Durand MD * ALL edits or amendments must be made on the electronic/computer document * Subjective HPI: This is a 58-year-old male patient with history of coronary artery disease status post CABG on the who presents to the hospital with drainage from his distal sternal wound along with chills On the he underwent debridement of the sternal wound and wound VAC placement His cultures are growing Staph aureus. He has been started on cefazolin 2 g every 8. Patient reports: No: abdominal pain, back pain, burning with urination, cough, diarrhea, fever, headache, nausea. Review of Systems Free Text ROS Notes Free Text ROS Notes: 14 systems reviewed and negative apart from pertinent points in the HPI Objective Physical Exam Wound/incision: Location: Sternal wound dressing intact. vac present Head/Eyes: atraumatic, clear cornea ENT: moist mucosal membranes, normal dentition Cardiovascular: normal heart sounds, no rub Respiratory: clear to auscultation, symmetric expansion Abdomen: non-tender, normal bowel sounds Extremities: moves all, normal capillary refill Musculoskeletal: full range of motion, normal inspection Results Findings/Data: Laboratory Tests 08/19 357 Chemistry [...] % (Auto) (14.0 - 32.0 %) 23.0 Brooke % (Auto) (4.8 - 9.0 %) 12.5 H Eos % (Auto) (0.3 - 3.7 %) 2.2 Baso % (Auto) (0.0 - 2.0 %) 0.4 Neut # (Auto) (2.0 - 7.6 x10 3/uL) 5.67 Lymph # (Auto) (1.0 - 3.8 x10 3/uL) 2.13 Brooke # (Auto) (0.1 - 0.8 x10 3/uL) 1.16 H Eos # (Auto) (0.0 - 0.2 x10 3/uL) 0.20 Baso # (Auto) (0.0 - 0.2 x10 3/uL) 0.04 Abs Immat Gran (auto) (0.00 - 0.03 x10 3/uL) 0.07 H Add Manual Diff NO Immature Gran % (0.0 - 2.0 %) 0.8 Nucleated RBC % (0 - 0 %) 0.0 Nucleated RBCs # (Man) (0.0 - 0.1 x10 3/uL) 0.00 Diagnosis, Assessment Plan Free Text A P: 1-Sternal wound infection with MSSA status post debridement postoperative day #2 2-Coronary disease status post CABG 3-History of temporal arteritis 4-History of diverticulitis Recommendations Continue cefazolin at 2 g IV every 8 We will order PICC line placement and home IV antibiotics via the infusion center followed by oral Keflex until complete resolution of signs and symptoms of infection followed by a few months of suppressive therapy as well 08/19 Awaiting PICC line placement Home IV antibiotics have been ordered and pending insurance approval at 1609 RPT #:[id number] END OF [id number] 13:45:00 [facility] Cardiothoracic Surgery Prog REPORT#:[id number] REPORT STATUS: Signed DATE:08/19/22 TIME: 1345 PATIENT: MARY DALY UNIT #: [id number] ROOM/BED: [place] [address] : 53 AGE: 67 SEX: M ATTEND: Ludin Mccurdy MD ADM AUTHOR: Ludin Mccurdy MD * ALL edits or amendments must be made on the electronic/computer document * General Post-op: day 3 (POD 1) Status post: 1. Debridement of the sternal wound. 2. Placement of wound VAC. Review of Systems Constitutional: Denies: chills, fatigue, generalized weakness. Skin: Denies: abrasion, bruising, ecchymosis. Allergy/Immun: Denies: allergic reaction, hives, rhinorrhea. Eyes: Denies: redness, visual loss/blurred, eye pain. Respiratory: Denies: PETERSEN (dyspnea on exertion), pleuritic pain, productive cough (sputum). Cardiovascular: Denies: chest pain, palpitations. GI: Denies: abdominal pain, nausea, vomiting. : Denies: dysuria, flank pain. Musculoskeletal: Denies: arthritis, joint pain, neck pain. Heme: Denies: adenopathy, bleeding, petechiae. Endocrine: Denies: cold intolerance, heat intolerance, polyuria. Neuro: Denies: bladder dysfunction, seizure, syncope. Psych: [...] set between the solid lines has been imported from the dietitian's assessment. BMI Calculated: 26.5 Nutrition related diagnosis: Nutrition diagnosis details: Nutrition problem: Nutrition etiology: Nutrition signs and symptoms: Nutrition prescription: Dietitian name: Assessment completed: Physical Exam General appearance: alert, awake, oriented Wound/incision: Location: sternum Site condition: wound vac in place HEENT: anicteric, mucosal membranes moist, pupils reactive to light Neck: full range of motion, non-tender Cardiovascular: normal heart sounds, regular rate rhythm, wound vac in place to sternum [...] Sodium Chloride (SODIUM CHLORIDE) 10 ML ASDIR PRN IV Carboxymethylcellulose Sodium (REFRESH TEARS) 1 DROP QID EACH EYE Cefazolin Sodium (KEFZOL OR ANCEF) 2 GM Q8H IV Sodium Chloride (SODIUM CHLORIDE) 20 ML ASDIR IV Mupirocin (BACTROBAN 2% 22 GM OINTMENT) 1 APPLIC BID NASAL Polyethylene Glycol (MIRALAX) 17 GM DAILY PO Docusate Sodium (COLACE) 100 MG BID PO Sennosides (Senna Lax 8.6 MG TABLET) 17.2 MG BEDTIME PO Acetaminophen (TYLENOL) 650 MG Q4H PRN PRN PO Acetaminophen (TYLENOL) 650 MG Q4H PRN PRN RECTAL Dextrose/Water (DEXTROSE 10% IN WATER) 125 ML ASDIR PRN IV (CKD) Dextrose/Water (DEXTROSE 10% IN WATER) 250 ML ASDIR PRN IV (CKD) Glucagon (GLUCAGON) 1 MG ASDIR PRN IM Magnesium Sulfate (MAGNESIUM SULFATE 4GM/SWFI 100ML) 100 ML ASDIR PRN IV Magnesium Sulfate (MAGNESIUM SULFATE 2GM/SWFI 50ML) 50 ML ASDIR PRN IV Magnesium Sulfate/Dextrose (MAGNESIUM SULFATE 1GM/D5W 100ML) 100 ML ASDIR PRN IV Ondansetron [...] PRN PO Results Findings/Data: Laboratory Tests 08/19 0358 Chemistry Sodium (134 - 147 mEq/L) [...] % (Auto) (14.0 - 32.0 %) 23.0 Brooke % (Auto) (4.8 - 9.0 %) 12.5 H Eos % (Auto) (0.3 - 3.7 %) 2.2 Baso % (Auto) (0.0 - 2.0 %) 0.4 Neut # (Auto) (2.0 - 7.6 x10 3/uL) 5.67 Lymph # (Auto) (1.0 - 3.8 x10 3/uL) 2.13 Brooke # (Auto) (0.1 - 0.8 x10 3/uL) 1.16 H Eos # (Auto) (0.0 - 0.2 x10 3/uL) 0.20 Baso # (Auto) (0.0 - 0.2 x10 3/uL) 0.04 Abs Immat Gran (auto) (0.00 - 0.03 x10 3/uL) 0.07 H Add Manual Diff NO Immature Gran % (0.0 - 2.0 %) 0.8 Nucleated RBC % (0 - 0 %) 0.0 Nucleated RBCs # (Man) (0.0 - 0.1 x10 3/uL) 0.00 Radiology data: Recent Impressions: RADIOLOGY - XR CHEST 1 V 08/20 0757 Report Impression - Status: SIGNED Entered: 08/19/2022 1102 IMPRESSION: Stable left dependent atelectasis and small left pleural fluid. Stable cardiomediastinal silhouette. Impression By: [email or web address] - Maik Sandra M.D. Results: labs reviewed, vital signs stable, rythm personally rev'd, x-ray personally reviewed, current med profile rev'd Diagnosis, Assessment Plan Free Text A P: This is a 58-year-old gentleman with past medical history of coronary artery disease status post coronary artery bypass graft CABG x 4 (MITCHELL-LAD, SVG-OM1, SVG-OM2, SVG-PDA)on 08/02/[address] Mccurdy. He has a history of temporal arteritis on chronic prednisone, diverticulitis, gout, hypertension, hyperlipidemia. His postop course, he did very well. Working with physical therapy. He was mobile, walking with PT OT. His wounds were clean and dry. There was no drainage upon discharge. He was discharged on postop day 7. He was discharged on 08/09/2022. He reports about 2 or 3 days ago he started to notice increased drainage in his distal sternal wound. He also reports having chills at night. The patient admits to not checking his temperature. The patient denies any nausea or vomiting, denies any shortness of breath, does complain of right-sided chest wall pain. Patient is admitted for observation for sternal wound drainage Assessment/plan 1. Coronary artery disease Status post coronary artery bypass graft surgery on 08/02/2022 2. Sternal wound drainage Obtain CT noncontrast chest 3. Hypertension 4. Hyperlipidemia Patient will be admitted for investigation of sternal wound drainage. Will obtain CT noncontrast of the chest. DVT studies of the lower extremities We will start IV antibiotics, routine labs. Further recommendations to follow 08/17/22 POD 1 08/18/22 Continue abx as per ID Wound care team to change wound vac Labs reviewed Transfer to CVN 1 08/19/22 Patient in stable condition, no complaints, afebrile Reviewed labs Wound vac changed per wound care team On room air Antibiotics per ID, PICC line ordered for home antibiotics Discharge home soon at 2031 RPT #:[id number] END OF [id number] 07:09:00 [facility] ([facility]) Cardiology Progress Note REPORT#:[id number] REPORT STATUS: Signed DATE:08/19/22 TIME: 708 PATIENT: MARY DALY UNIT #: [id number] ROOM/BED: [place] [address] : 53 AGE: 66 SEX: M ATTEND: Ludin Mccurdy MD ADM AUTHOR: Denton Chaparro MD * ALL edits or amendments must be made on the electronic/computer document * Subjective Chief complaint: BETTER Objective [...] Room air 08/18 2000 97.8 Room air 08/18 2000 68 25 152/71 102 94 08/18 1903 [...] (LIDOCAINE 1% 5ML) 5 ML ONCE ONE LOCAL (DC) Sodium Chloride (SODIUM CHLORIDE) 10 ML ASDIR PRN IV Carboxymethylcellulose Sodium (REFRESH TEARS) 1 DROP QID EACH EYE Cefazolin Sodium (KEFZOL OR ANCEF) 2 GM Q8H IV Sodium Chloride (SODIUM CHLORIDE) 20 ML ASDIR IV Mupirocin (BACTROBAN 2% 22 GM OINTMENT) 1 APPLIC BID NASAL Polyethylene Glycol (MIRALAX) 17 GM DAILY PO Docusate Sodium (COLACE) 100 MG BID PO Sennosides (Senna Lax 8.6 MG TABLET) 17.2 MG BEDTIME PO Acetaminophen (TYLENOL) 650 MG Q4H PRN PRN PO Acetaminophen (TYLENOL) 650 MG Q4H PRN PRN RECTAL Dextrose/Water (DEXTROSE 10% IN WATER) 125 ML ASDIR PRN IV (CKD) Dextrose/Water (DEXTROSE 10% IN WATER) 250 ML ASDIR PRN IV (CKD) Glucagon (GLUCAGON) 1 MG ASDIR PRN IM Magnesium Sulfate (MAGNESIUM SULFATE 4GM/SWFI 100ML) 100 ML ASDIR PRN IV Magnesium Sulfate (MAGNESIUM SULFATE 2GM/SWFI 50ML) 50 ML ASDIR PRN IV Magnesium Sulfate/Dextrose (MAGNESIUM SULFATE 1GM/D5W 100ML) 100 ML ASDIR PRN IV Ondansetron [...] meningismus, no bruit/NL carotids, no JVD, no lymphadenopathy, no masses or swelling Cardiovascular: CV assessment: regular rate and rhythm Respiratory: decreased breath sounds, no distress Abdomen: non-tender, normal bowel sounds, no distention, no guarding, no mass/ organomegaly, no pulsatile mass, no rebound Upper extremity: UE assessment: normal capillary refill, no edema Lower extremity: LE assessment: normal capillary refill, no edema Diagnosis, Assessment Plan Free Text DxA P Notes Free Text DxA P Notes: 1. Coronary artery disease Status post coronary artery bypass graft surgery on 08/02/2022 2. Sternal wound drainage S/P wound surgery/debridement 3. Hypertension 4. Hyperlipidemia at 0709 RPT #:[id number] END OF [id number] 21:36:00 [facility] ([facility]) Infect Disease Consult Note REPORT#:[id number] REPORT STATUS: Signed DATE:08/18/22 TIME: 2135 PATIENT: MARY DALY UNIT #: [id number] ROOM/BED: [place] [address] : 53 AGE: 66 SEX: M ATTEND: Ludin Mccurdy MD ADM AUTHOR: Leo Durand MD * ALL edits or amendments must be made on the electronic/computer document * History of Present Illness Requesting Clinician: Dr Mccurdy Reason for consult: Sternal wound infection HPI: This is a 58-year-old male patient with history of coronary artery disease status post CABG on the who presents to the hospital with drainage from his distal sternal wound along with chills On the he underwent debridement of the sternal wound and wound VAC placement His cultures are growing Staph aureus. He has been started on cefazolin 2 g every 8. History - Adult longitudinal Past medical history: Reports: Coronary artery disease, Hypertension, Dyslipidemia, Prior MD, Steroid use. Additional medical history: Temproal arteritis (2017) Additional surgical history: Colon resection 2009 secondary to diverticulitis C3 surgery Family history: Reports: Heart disease (brother). Alcohol use: Alcohol use (1-7 drinks per week) Drug use: Denies recreational drugs Smoking status for patients 13 years old or older: Never Smoker Allergies: Coded Allergies: hydromorphone (From DILAUDID) (Severe, THROAT SWELLS 07/27/22) crab (Intermediate, ITCHING, CHILLS 07/27/22) doxepin [...] 14 systems reviewed and negative apart from pertinent points in the HPI Objective Physical Exam General appearance: alert, awake Wound/incision: Location: Sternal wound dressing intact. Drain present Head/Eyes: atraumatic, clear cornea ENT: moist mucosal membranes, normal dentition Cardiovascular: normal heart sounds, no rub Respiratory: clear to auscultation, symmetric expansion Abdomen: non-tender, normal bowel sounds Extremities: moves all, normal capillary refill Musculoskeletal: full range of motion, normal inspection Results Findings/Data: Laboratory Tests 08/18 0408 Chemistry [...] % (Auto) (14.0 - 32.0 %) 17.1 Brooke % (Auto) (4.8 - 9.0 %) 8.3 Eos % (Auto) (0.3 - 3.7 %) 0.9 Baso % (Auto) (0.0 - 2.0 %) 0.2 Neut # (Auto) (2.0 - 7.6 x10 3/uL) 7.00 Lymph # (Auto) (1.0 - 3.8 x10 3/uL) 1.64 Brooke # (Auto) (0.1 - 0.8 x10 3/uL) 0.80 Eos # (Auto) (0.0 - 0.2 x10 3/uL) 0.09 Baso # (Auto) (0.0 - 0.2 x10 3/uL) 0.02 Abs Immat Gran (auto) (0.00 - 0.03 x10 3/uL) 0.05 H Add Manual Diff NO Immature Gran % (0.0 - 2.0 %) 0.5 Nucleated RBC % (0 - 0 %) 0.0 Nucleated RBCs # (Man) (0.0 - 0.1 x10 3/uL) 0.00 Diagnosis, Assessment Plan Free Text DxA P Notes Free text DxA P notes: 1-Sternal wound infection with MSSA status post debridement postoperative day #2 2-Coronary disease status post CABG 3-History of temporal arteritis 4-History of diverticulitis Recommendations Continue cefazolin at 2 g IV every 8 We will order PICC line placement and home IV antibiotics via the infusion center followed by oral Keflex until complete resolution of signs and symptoms of infection followed by a few months of suppressive therapy as well at 2142 RPT #:[id number] END OF [id number] 16:43:00 [facility] ([facility]) Cardiothoracic Surgery Prog REPORT#:[id number] REPORT STATUS: Signed DATE:08/18/22 TIME: 1642 PATIENT: MARY DALY UNIT #: [id number] ROOM/BED: [place] [address] : 53 AGE: 67 SEX: M ATTEND: Ludin Mccurdy MD ADM AUTHOR: Ludin Mccurdy MD * ALL edits or amendments must be made on the electronic/computer document * General Post-op: day 2 (POD 1) Status post: 1. Debridement of the sternal wound. 2. Placement of wound VAC. Review of Systems Constitutional: Denies: chills, fatigue, generalized weakness. Skin: Denies: abrasion, bruising, ecchymosis. Allergy/Immun: Denies: allergic reaction, hives, rhinorrhea. Eyes: Denies: redness, visual loss/blurred, eye pain. Respiratory: Denies: PETERSEN (dyspnea on exertion), pleuritic pain, productive cough (sputum). Cardiovascular: Denies: chest pain, palpitations. GI: Denies: abdominal pain, nausea, vomiting. : Denies: dysuria, flank pain. Musculoskeletal: Denies: arthritis, joint pain, neck pain. Heme: Denies: adenopathy, bleeding, petechiae. Endocrine: Denies: cold intolerance, heat intolerance, polyuria. Neuro: Denies: bladder dysfunction, seizure, syncope. Psych: [...] set between the solid lines has been imported from the dietitian's assessment. BMI Calculated: 26.8 Nutrition related diagnosis: Nutrition diagnosis details: Nutrition problem: Nutrition etiology: Nutrition signs and symptoms: Nutrition prescription: Dietitian name: Assessment completed: Physical Exam General appearance: alert, awake, oriented Wound/incision: Location: sternum Site condition: wound vac in place HEENT: anicteric, mucosal membranes moist, pupils reactive to light Neck: full range of motion, non-tender Cardiovascular: normal heart sounds, regular rate rhythm, wound vac in place to sternum [...] (LIDOCAINE 1% 5ML) 5 ML ONCE ONE LOCAL (DC) Sodium Chloride (SODIUM CHLORIDE) 10 ML ASDIR PRN IV Carboxymethylcellulose Sodium (REFRESH TEARS) 1 DROP QID EACH EYE Cefazolin Sodium (KEFZOL OR ANCEF) 2 GM Q8H IV Sodium Chloride (SODIUM CHLORIDE) 20 ML ASDIR IV Mupirocin (BACTROBAN 2% 22 GM OINTMENT) 1 APPLIC BID NASAL Polyethylene Glycol (MIRALAX) 17 GM DAILY PO Docusate Sodium (COLACE) 100 MG BID PO Sennosides (Senna Lax 8.6 MG TABLET) 17.2 MG BEDTIME PO Acetaminophen (TYLENOL) 650 MG Q4H PRN PRN PO Acetaminophen (TYLENOL) 650 MG Q4H PRN PRN RECTAL Dextrose/Water (DEXTROSE 10% IN WATER) 125 ML ASDIR PRN IV (CKD) Dextrose/Water (DEXTROSE 10% IN WATER) 250 ML ASDIR PRN IV (CKD) Glucagon (GLUCAGON) 1 MG ASDIR PRN IM Magnesium Sulfate (MAGNESIUM SULFATE 4GM/SWFI 100ML) 100 ML ASDIR PRN IV Magnesium Sulfate (MAGNESIUM SULFATE 2GM/SWFI 50ML) 50 ML ASDIR PRN IV Magnesium Sulfate/Dextrose (MAGNESIUM SULFATE 1GM/D5W 100ML) 100 ML ASDIR PRN IV Ondansetron [...] % (Auto) (14.0 - 32.0 %) 17.1 Brooke % (Auto) (4.8 - 9.0 %) 8.3 Eos % (Auto) (0.3 - 3.7 %) 0.9 Baso % (Auto) (0.0 - 2.0 %) 0.2 Neut # (Auto) (2.0 - 7.6 x10 3/uL) 7.00 Lymph # (Auto) (1.0 - 3.8 x10 3/uL) 1.64 Brooke # (Auto) (0.1 - 0.8 x10 3/uL) 0.80 Eos # (Auto) (0.0 - 0.2 x10 3/uL) 0.09 Baso # (Auto) (0.0 - 0.2 x10 3/uL) 0.02 Abs Immat Gran (auto) (0.00 - 0.03 x10 3/uL) 0.05 H Add Manual Diff NO Immature Gran % (0.0 - 2.0 %) 0.5 Nucleated RBC % (0 - 0 %) 0.0 Nucleated RBCs # (Man) (0.0 - 0.1 x10 3/uL) 0.00 Radiology data: Recent Impressions: RADIOLOGY - XR CHEST 1 V 08/18 0551 Report Impression - Status: SIGNED Entered: 08/18/2022 0830 IMPRESSION: No focal airspace disease. Impression By: Abe - Colby Sawyer M.D. Results: labs reviewed, vital signs stable, rythm personally rev'd, x-ray personally reviewed, current med profile rev'd Diagnosis, Assessment Plan Free Text A P: This is a 58-year-old gentleman with past medical history of coronary artery disease status post coronary artery bypass graft CABG x 4 (MITCHELL-LAD, SVG-OM1, SVG-OM2, SVG-PDA)on 08/02/[address] Mccurdy. He has a history of temporal arteritis on chronic prednisone, diverticulitis, gout, hypertension, hyperlipidemia. His postop course, he did very well. Working with physical therapy. He was mobile, walking with PT OT. His wounds were clean and dry. There was no drainage upon discharge. He was discharged on postop day 7. He was discharged on 08/09/2022. He reports about 2 or 3 days ago he started to notice increased drainage in his distal sternal wound. He also reports having chills at night. The patient admits to not checking his temperature. The patient denies any nausea or vomiting, denies any shortness of breath, does complain of right-sided chest wall pain. Patient is admitted for observation for sternal wound drainage Assessment/plan 1. Coronary artery disease Status post coronary artery bypass graft surgery on 08/02/2022 2. Sternal wound drainage Obtain CT noncontrast chest 3. Hypertension 4. Hyperlipidemia Patient will be admitted for investigation of sternal wound drainage. Will obtain CT noncontrast of the chest. DVT studies of the lower extremities We will start IV antibiotics, routine labs. Further recommendations to follow 08/17/22 POD 1 08/18/22 Continue abx as per ID Wound care team to change wound vac Labs reviewed Transfer to [facility] 1 at 2030 [facility] #:[id number] END OF [id number] 09:09:00 [facility] ([facility]) Clinical Note REPORT#:[id number] REPORT STATUS: Signed DATE:08/18/22 TIME: 09 PATIENT: MARY DALY UNIT #: [id number] ROOM/BED: [place] [address] : 53 AGE: 66 SEX: M ATTEND: Ludin Mccurdy MD ADM AUTHOR: Leo Durand MD * ALL edits or amendments must be made on the electronic/computer document * Clinical Note Note: CHART REVIEWED CONSULT TO FOLLOW at 0909 RPT #:[id number] END OF [id number] 06:54:00 [facility] ([facility]) Cardiology Progress Note REPORT#:[id number] REPORT STATUS: Signed DATE:08/18/22 TIME: 653 PATIENT: MARY DALY UNIT #: [id number] ROOM/BED: [place] [address] : 53 AGE: 66 SEX: M ATTEND: Ludin Mccurdy MD ADM AUTHOR: Denton Chaparro MD * ALL edits or amendments must be made on the electronic/computer document * Subjective Chief complaint: BETTER Objective [...] O2 Flow FiO2 Mean Ox Delivery Rate 08/18 0600 [...] (Senna Lax 8.6 MG TABLET) 17.2 MG BEDTIME PO Acetaminophen (TYLENOL) 650 MG Q4H PRN PRN PO Acetaminophen (TYLENOL) 650 MG Q4H PRN PRN RECTAL Dextrose/Water (DEXTROSE 10% IN WATER) 125 ML ASDIR PRN IV (CKD) Dextrose/Water (DEXTROSE 10% IN WATER) 250 ML ASDIR PRN IV (CKD) Glucagon (GLUCAGON) 1 MG ASDIR PRN IM Magnesium Sulfate (MAGNESIUM SULFATE 4GM/SWFI 100ML) 100 ML ASDIR PRN IV Magnesium Sulfate (MAGNESIUM SULFATE 2GM/SWFI 50ML) 50 ML ASDIR PRN IV Magnesium Sulfate/Dextrose (MAGNESIUM SULFATE 1GM/D5W 100ML) 100 ML ASDIR PRN IV Ondansetron [...] Sodium Chloride (SODIUM CHLORIDE 0.9% 100 ML) 100 ML Tramadol HCl (ULTRAM) 25 MG Q6H PRN PO Physical Exam General appearance: alert, awake Neck: full range of motion, non-tender, normal thyroid, supple/no meningismus, no bruit/NL carotids, no JVD, no lymphadenopathy, no masses or swelling Cardiovascular: CV assessment: regular rate and rhythm Respiratory: decreased breath sounds, no distress Abdomen: non-tender, normal bowel sounds, no distention, no guarding, no mass/ organomegaly, no pulsatile mass, no rebound Upper extremity: UE assessment: normal capillary refill, no edema Lower extremity: LE assessment: normal capillary refill, no edema Results Findings/Data: Laboratory Tests 08/19 407 Chemistry [...] % (Auto) (14.0 - 32.0 %) 17.1 Brooke % (Auto) (4.8 - 9.0 %) 8.3 Eos % (Auto) (0.3 - 3.7 %) 0.9 Baso % (Auto) (0.0 - 2.0 %) 0.2 Neut # (Auto) (2.0 - 7.6 x10 3/uL) 7.00 Lymph # (Auto) (1.0 - 3.8 x10 3/uL) 1.64 Brooke # (Auto) (0.1 - 0.8 x10 3/uL) 0.80 Eos # (Auto) (0.0 - 0.2 x10 3/uL) 0.09 Baso # (Auto) (0.0 - 0.2 x10 3/uL) 0.02 Abs Immat Gran (auto) (0.00 - 0.03 x10 3/uL) 0.05 H Add Manual Diff NO Immature Gran % (0.0 - 2.0 %) 0.5 Nucleated RBC % (0 - 0 %) 0.0 Nucleated RBCs # (Man) (0.0 - 0.1 x10 3/uL) 0.00 Laboratory Tests 08/18 0408 Chemistry Magnesium (1.80 [...] disease Status post coronary artery bypass graft surgery on 08/02/2022 2. Sternal wound drainage S/P wound surgery/debridement 3. Hypertension 4. Hyperlipidemia at 0655 RPT #:[id number] END OF [id number] 09:46:00 [facility] Cardiothoracic Surgery Prog REPORT#:[id number] REPORT STATUS: Signed DATE:08/17/22 TIME: 945 PATIENT: MARY DALY UNIT #: [id number] ROOM/BED: [place] [address] : 53 AGE: 67 SEX: M ATTEND: Ludin Mccurdy MD ADM AUTHOR: Rosalind Mendez Physic * ALL edits or amendments must be made on the electronic/computer document * General Post-op: day 1 (POD 1) Status post: 1. Debridement of the sternal wound. 2. Placement of wound VAC. Diagnosis, Assessment Plan Free Text A P: This is a 58-year-old gentleman with past medical history of coronary artery disease status post coronary artery bypass graft CABG x 4 (MITCHELL-LAD, SVG-OM1, SVG-OM2, SVG-PDA)on 08/02/[address] Mccurdy. He has a history of temporal arteritis on chronic prednisone, diverticulitis, gout, hypertension, hyperlipidemia. His postop course, he did very well. Working with physical therapy. He was mobile, walking with PT OT. His wounds were clean and dry. There was no drainage upon discharge. He was discharged on postop day 7. He was discharged on 08/09/2022. He reports about 2 or 3 days ago he started to notice increased drainage in his distal sternal wound. He also reports having chills at night. The patient admits to not checking his temperature. The patient denies any nausea or vomiting, denies any shortness of breath, does complain of right-sided chest wall pain. Patient is admitted for observation for sternal wound drainage Assessment/plan 1. Coronary artery disease Status post coronary artery bypass graft surgery on 08/02/2022 2. Sternal wound drainage Obtain CT noncontrast chest 3. Hypertension 4. Hyperlipidemia Patient will be admitted for investigation of sternal wound drainage. Will obtain CT noncontrast of [...] home low dose steroid for hx of temporal arteritis. Patient was seen and examined by Dr Mccurdy. at 0654 at 2030 RPT #:[id number] END OF [id number] 07:08:00 [facility]) Cardiology Progress Note REPORT#:[id number] REPORT STATUS: Signed DATE:08/17/22 TIME: 707 PATIENT: MARY DALY UNIT #: [id number] ROOM/BED: [place] [address] : 53 AGE: 66 SEX: M ATTEND: Ludin Mccurdy MD ADM AUTHOR: Denton Chaparro MD * ALL edits or amendments must be made on the electronic/computer document * Subjective Chief complaint: BETTER Objective General VS/I O: 24 hour I O ending at 0700: 08/17 0708/16 1900 Intake Total 1027.00 200.00 Output Total [...] (Senna Lax 8.6 MG TABLET) 17.2 MG BEDTIME PO Acetaminophen (TYLENOL) 650 MG Q4H PRN PRN PO Acetaminophen (TYLENOL) 650 MG Q4H PRN PRN RECTAL Dextrose/Water (DEXTROSE 10% IN WATER) 125 ML ASDIR PRN IV (CKD) Dextrose/Water (DEXTROSE 10% IN WATER) 250 ML ASDIR PRN IV (CKD) Glucagon (GLUCAGON) 1 MG ASDIR PRN IM Magnesium Sulfate (MAGNESIUM SULFATE 4GM/SWFI 100ML) 100 ML ASDIR PRN IV Magnesium Sulfate (MAGNESIUM SULFATE 2GM/SWFI 50ML) 50 ML ASDIR PRN IV Magnesium Sulfate/Dextrose (MAGNESIUM SULFATE 1GM/D5W 100ML) 100 ML ASDIR PRN IV Ondansetron HCl (ZOFRAN) 4 MG Q6H PRN PRN IV Sugammadex Sodium (BRIDION) 0 .STK-MED ONE IV (DC) Propofol (DIPRIVAN 200MG/20ML INJECTION) 20 ML .STK-MED ONE IV (DC) Dexamethasone Sodium Phosphate (DECADRON) 0 .STK-MED ONE .ROUTE (DC) Fentanyl Citrate (SUBLIMAZE) 0 .STK-MED ONE .ROUTE (DC) Lidocaine HCl (XYLOCAINE) 0 .STK-MED ONE .ROUTE (DC) Norepinephrine Bitartrate (LEVOPHED BITARTATE) 0 .STK-MED ONE IV (DC) Ondansetron HCl (ZOFRAN) 0 .STK-MED ONE .ROUTE (DC) Rocuronium [place] (ZEMURON) 0 .STK-MED ONE IV (DC) Sodium Chloride (SODIUM CHLORIDE 0.9%) 250 ML .STK-MED ONE IV (DC) Vancomycin HCl (VANCOMYCIN HCL) 0 .STK-MED ONE .ROUTE (DC) Amiodarone HCl (CORDARONE) 200 MG DAILY [...] Sodium Chloride (SODIUM CHLORIDE 0.9% 100 ML) 100 ML Tramadol HCl (ULTRAM) 25 MG Q6H PRN PO Acetaminophen (TYLENOL) 650 MG Q4H PRN PRN PO (DC) Ondansetron HCl (ZOFRAN) 4 MG Q6H PRN PRN IV (DC) Physical Exam General appearance: alert, awake Neck: full range of motion, non-tender, normal thyroid, supple/no meningismus, no bruit/NL carotids, no JVD, no lymphadenopathy, no masses or swelling Cardiovascular: CV assessment: regular rate and rhythm Respiratory: decreased breath sounds, no distress Abdomen: non-tender, normal bowel sounds, no distention, no guarding, no mass/ organomegaly, no pulsatile mass, no rebound Upper extremity: UE assessment: normal capillary refill, no edema Lower extremity: LE assessment: normal capillary refill, no edema Results Findings/Data: Laboratory Tests 08/16 1402 Chemistry [...] g/dL) 32.6 L 32.7 L 32.2 L 32.4 L RDW (11.5 - 14.5 %) 15.7 H 15.2 H 14.6 H 14.8 H Plt Count (150 - 400 x10 3/uL) 575 H 564 H 562 H 417 H MPV (7.0 - 9.0 fL) 10.1 H 10.1 H 9.9 H 10.0 H Neut % (Auto) (56.0 - 77.0 %) 81.5 H 84.7 H 87.5 H 80.8 H Lymph % (Auto) (14.0 - 32.0 %) 9.1 L 7.1 L 5.2 L 6.2 L Brooke % (Auto) (4.8 - 9.0 %) 8.8 7.5 6.3 10.8 H Eos % (Auto) (0.3 - 3.7 %) 0.0 L 0.0 L 0.2 L 1.0 Baso % (Auto) (0.0 - 2.0 %) 0.2 0.1 0.2 0.3 Neut # (Auto) (2.0 - 7.6 x10 3/uL) 10.43 H 11.02 H 11.07 H 8.01 H Lymph # (Auto) (1.0 - 3.8 x10 3/uL) 1.16 0.92 L 0.66 L 0.61 L Brooke # (Auto) (0.1 - 0.8 x10 3/uL) 1.12 H 0.98 H 0.79 1.07 H Eos # (Auto) (0.0 - 0.2 x10 3/uL) 0.00 0.00 0.02 0.10 Baso # (Auto) (0.0 - 0.2 x10 3/uL) 0.02 0.01 0.03 0.03 Abs Immat Gran (auto) (0.00 - 0.03 0.05 H 0.08 H 0.07 H 0.09 H x10 3/uL) Add Manual Diff NO NO NO NO Immature Gran % (0.0 - 2.0 %) 0.4 0.6 0.6 0.9 Nucleated RBC % (0 - 0 %) 0.0 0.0 0.0 0.0 Nucleated RBCs # (Man) (0.0 - 0.1 x10 3/uL) 0.00 0.00 0.00 0.00 Laboratory Tests 08/16 1402 Chemistry Magnesium (1.80 - 2.40 mg/dL) 1.95 Radiology data: Recent Impressions: RADIOLOGY - XR CHEST 1 V 08/16 1450 Report Impression - Status: SIGNED Entered: 08/16/2022 1548 IMPRESSION: . Low lung volumes, hypoventilation. Pleuroparenchymal opacities obscure the left lung base, lower lobe region. No pneumothorax. Impression By: [email or web address] - Maik Sandra M.D. Diagnosis, Assessment Plan Free Text DxA P Notes Free Text DxA P Notes: 1. Coronary artery disease Status post coronary artery bypass graft surgery on 08/02/2022 2. Sternal wound drainage S/P wound surgery/debridement 3. Hypertension 4. Hyperlipidemia at 0709 RPT #:[id number] END OF [id number] 19:24:[id number] [place] [address] PATIENT NAME: MARY DALY ADMIT DATE: 08/16/22 ACCOUNT NO: [id number] ROOM NO: G.3311 AGE: 66 REPORT TYPE: OPERATIVE REPORT SEX: M ADMITTING PHYSICIAN:Ludin Mccurdy MD ATTENDING PHYSICIAN:Ludin Mccurdy MD OPERATION DATE: 08/16/2022 PREOPERATIVE DIAGNOSIS: Sternal wound dehiscence. POSTOPERATIVE DIAGNOSIS: Sternal wound dehiscence. OPERATION: 1. Debridement of the sternal wound. 2. Placement of wound VAC. SURGEON: Ludin Mccurdy M.D. MANAGER OF INVESTIGATIONS: None. ANESTHESIA: General endotracheal anesthesia. ANESTHESIOLOGIST: Dr. Torres. ESTIMATED BLOOD LOSS: 2 mL. INDICATIONS: Mr. Daly is a 66-year-old gentleman, 10 days status post coronary artery bypass graft surgery, patient is on chronic steroid therapy for temporal arteritis. He was discharged to home last week. He presented to the ER yesterday with some drainage from the wound. CT scan of the chest did not show any evidence of mediastinitis. After due preop counseling, the patient was brought to the operating room today for debridement of the wound and placement of wound VAC. FINDINGS: 1. There was dehiscence of the lower end of the wound for about 1 cm. I removed the lower end of the wound. 2. There was no evidence of any purulent material. 3. On probing, the wound went in fascia deep. DESCRIPTION OF PROCEDURE: Mr. Daly was identified in the preoperative holding area and brought to the OR and placed supine on the operating table. After induction of anesthesia, the chest was prepped and draped in standard surgical fashion. A culture swab was obtained from the wound. I removed subcuticular sutures, curetted the wound and the edges of the wound were debrided. Next, using a curette, the unhealthy tissue was removed following which the size of the wound was 5 cm x 2 cm x 1 cm. Next, hemostasis was achieved and the wound PATIENT NAME: MARY DALY VAC was placed. The patient was extubated in the operating room and moved to PACU in stable condition. Dictated By: Ludin Mccurdy MD Date Dictated: 08/16/2022 19:24:54 Date Transcribed: 08/16/2022 22:41:00 /[facility] Receipt ID: [id number] Authenticated by Kenenth Mccurdy MD On 08/17/2022 05:42:13 PM at 0542 PATIENT NAME: MARY DALY 19:19:00 [facility] Brief Op Note REPORT#:[id number] REPORT STATUS: Signed DATE:08/16/22 TIME: 1918 PATIENT: MARY DALY UNIT #: [id number] ROOM/BED: [place] [address] : 53 AGE: 66 SEX: M ATTEND: Ludin Mccurdy MD ADM AUTHOR: Ludin Mccurdy MD * ALL edits or amendments must be made on the electronic/computer document * Op/Inv Proc Note - Brief Pre-procedure diagnosis: Sternal wound dehesence Post-procedure diagnosis: same as pre procedure dx Procedures performed: Debridement of wound placement of woumd vac Primary Surgeon: Calli Laborer [employer](s): none Findings: following debribement the wound measured 5 cm x 2 cm x 1 cm, fascia deep Complications: none Estimated blood loss in ml's: 2 cc Specimens removed/altered: culture swab at 1921 RPT #:[id number] END OF [id number] 18:03:[id number] [place] [address] PATIENT NAME: MRAY DALY ADMIT DATE: 08/16/22 ACCOUNT NO: [id number] ROOM NO: G.3343 AGE: 66 REPORT TYPE: eECHOCARDIOGRAM REPORT SEX: M ADMITTING PHYSICIAN:Ludin Mccurdy MD ATTENDING PHYSICIAN:Ludin Mccurdy MD *[place] [address] Transthoracic Echocardiogram Patient: Mary Daly Study Date: 08/16/2022 BP: 126 / 64 Location: [facility] URN: [id number] : 1955 Age: 66 Height: 70 in / 177.8 cm Gender: M Weight: 187.6 lb / 85.3 kg BMI/BSA: 27 kg/m 2 / 2.03 m 2 *Ordering Physician: * Ludin Mccurdy MD *Interpreting Physician: * Denton Chaparro MD *Instructional Services Librarian: * Amada Banks Indications: EVALUATE FUNCTION. Study data: Transthoracic echocardiogram. Procedure: Transthoracic echocardiography was performed. Image quality was adequate. Complete 2D, complete spectral Doppler, and color Doppler. Location: Bedside. Patient status: Inpatient. Patient room number: 3343. Study status: Routine. Findings Left ventricle: The cavity size is normal. Wall thickness is mildly increased. Systolic function is at the lower limits of normal. The estimated ejection fraction is 50-54%. Wall motion is normal; there are no regional wall motion abnormalities. Doppler parameters are consistent with abnormal left ventricular relaxation (grade 1 diastolic dysfunction). PATIENT NAME: MARY DALY Right ventricle: The cavity size is normal. Systolic function is normal. Left atrium: The atrium is moderately to severely dilated. Right atrium: The atrium is normal in size. Aorta: Aortic root: The aortic root is normal in size. Aortic valve: The valve is trileaflet. Thickening, consistent with sclerosis. There is no evidence of stenosis. There is no regurgitation. Mitral valve: The annulus is mildly calcified. There is no evidence of stenosis. There is trivial regurgitation. Tricuspid valve: The valve is structurally normal. There is mild regurgitation. Pulmonic valve: The valve is structurally normal. The leaflets are normal thickness. There is trivial regurgitation. Pericardium: There is no pericardial effusion. Pulmonary arteries: Main pulmonary artery: The artery is of normal size. Systemic veins: Inferior vena cava: The vessel is normal in size. Measurements Left ventricle Value 08/09/2022 Ref CHRIS, [...] nika, TDI .0 PATIENT NAME: MARY DALY E/e', lat 7 9 ---- nika, TDI [...] ---- ratio, MM PATIENT NAME: MARY DALY Aortic valve Value 08/09/2022 Ref Leaflet 1.78 [...] 3.9 ---- Pulmonic valve Value 08/09/2022 Ref CA v, ED 0.7 m/sec 0.65 ---- Tricuspid [...] CVP Conclusions Summary: PATIENT NAME: MARY DALY 1. Left ventricle: The cavity size is normal. Wall thickness is mildly increased. Systolic function is at the lower limits of normal. The estimated ejection fraction is 50-54%. Wall motion is normal; there are no regional wall motion abnormalities. Doppler parameters are consistent with abnormal left ventricular relaxation (grade 1 diastolic dysfunction). 2. Right ventricle: The RV pressure during systole by Doppler is 37 mm Hg. 3. Left atrium: The atrium is moderately to severely dilated. 4. Aortic valve: Thickening, consistent with sclerosis. 5. Mitral valve: The annulus is mildly calcified. There is trivial regurgitation. 6. Tricuspid valve: There is mild regurgitation. 7. Pericardium, extracardiac: There is no pericardial effusion. Prepared and electronically signed by Denton Chaparro MD 08/16/2022 18:03 at 1803 PATIENT NAME: MARY DALY 12:52:00 [facility] ([facility]) History Physical - Adult REPORT#:[id number] REPORT STATUS: Signed DATE:08/15/22 TIME: 125 PATIENT: MARY DALY UNIT #: [id number] ROOM/BED: [place] [id number] : 53 AGE: 66 SEX: M ATTEND: Ludin Mccurdy MD ADM AUTHOR: Rosalind Mendze Physic * ALL edits or amendments must be made on the electronic/computer document * Rosalind Mendez 08/15/22 1252: History of Present Illness HPI Chief complaint: Sternal Drainage HPI: This is a 58-year-old gentleman with past medical history of coronary artery disease status post coronary artery bypass graft CABG x 4 (MITCHELL-LAD, SVG-OM1, SVG-OM2, SVG-PDA)on 08/02/[address] Mccurdy. He has a history of temporal arteritis on chronic prednisone, diverticulitis, gout, hypertension, hyperlipidemia. His postop course, he did very well. Working with physical therapy. He was mobile, walking with PT OT. His wounds were clean and dry. There was no drainage upon discharge. He was discharged on postop day 7. He was discharged on 08/09/2022. He reports about 2 or 3 days ago he started to notice increased drainage in his distal sternal wound. He also reports having chills at night. The patient admits to not checking his temperature. The patient denies any nausea or vomiting, denies any shortness of breath, does complain of right-sided chest wall pain. Patient is admitted for observation for sternal wound drainage History Past medical history: Reports: Coronary artery disease, Hypertension, Dyslipidemia, Prior MD, Steroid use. Additional medical history: Temproal arteritis (2017) Additional surgical history: Colon resection 2009 secondary to diverticulitis C3 surgery Family history: Reports: Heart disease (brother). Alcohol use: Alcohol use (1-7 drinks per week) Drug use: Denies recreational drugs Smoking status for patients 13 years old or older: Never Smoker Medication/Allergy-Vaccine Hx Allergies: Coded Allergies: hydromorphone (From DILAUDID) (Severe, THROAT SWELLS 07/27/22) crab (Intermediate, ITCHING, CHILLS 07/27/22) doxepin [...] Skin: Negative for rash, negative for swelling negative for any laceration HEENT: Denies hearing loss denies any ear ringing denies any earache denies any sore throat denies any throat pain Respiratory: Denies dyspnea on exertion denies hemoptysis denies any cough denies any shortness of breath Cardiac: Positive for chest pain with coughing GI: Denies constipation denies diarrhea : Denies hematuria denies dysuria denies flank pain Musculoskeletal: Denies any joint pain denies any joint swelling denies any myalgia Hematologic: Denies any easy bruising, denies any bleeding Endocrine: denies any night sweats, denies polyuria polydipsia Neurologic: Denies any lightheaded denies any headache denies any confusion denies any dizziness Physical Exam VS/I O Vital Signs: Date Time Temp Pulse Resp B/P B/P Pulse O2 O2 Flow FiO2 Mean Ox Delivery Rate 08/15 1223 98.5 72 18 144/67 92 98 Room air PATIENT WEIGHT: Weight (lb): Weight (oz): Weight (kg): 86.364 General appearance: alert, awake, oriented ENT: moist mucosal membranes Neck: full range of motion, non-tender Cardiovascular: normal capillary refill, BP/pulses equal bilat. Respiratory: clear to auscultation, no distress, aerating well Abdomen/GI: soft, non-tender Extremities: moves all, no edema-all extremities Neuro/CERAMIC PAINTER: alert, oriented X 3 Skin: Distal Sternal wound with serous drianage. No popping or clicking. No redenss. Diagnosis, Assessment Plan Free Text DxA P Notes Free Text DxA P Notes: This is a 58-year-old gentleman with past medical history of coronary artery disease status post coronary artery bypass graft CABG x 4 (MITCHELL-LAD, SVG-OM1, SVG-OM2, SVG-PDA)on 08/02/[address] Mccurdy. He has a history of temporal arteritis on chronic prednisone, diverticulitis, gout, hypertension, hyperlipidemia. His postop course, he did very well. Working with physical therapy. He was mobile, walking with PT OT. His wounds were clean and dry. There was no drainage upon discharge. He was discharged on postop day 7. He was discharged on 08/09/2022. He reports about 2 or 3 days ago he started to notice increased drainage in his distal sternal wound. He also reports having chills at night. The patient admits to not checking his temperature. The patient denies any nausea or vomiting, denies any shortness of breath, does complain of right-sided chest wall pain. Patient is admitted for observation for sternal wound drainage Assessment/plan 1. Coronary artery disease Status post coronary artery bypass graft surgery on 08/02/2022 2. Sternal wound drainage Obtain CT noncontrast chest 3. Hypertension 4. Hyperlipidemia Patient will be admitted for investigation of sternal wound drainage. Will obtain CT noncontrast of the chest. DVT studies of the lower extremities We will start IV antibiotics, routine labs. Further recommendations to follow Ludin Mccurdy 08/16/22 0729: Attestations Physician Attestation Agree w/findings plan: I have seen and examined Mr Daly. I agree with the findings and plan as documented by LINH Bello. at 1306 at 7067 RPT #:[id number] END OF [id number] 12:31:00 [facility] ([facility]) EMERGENCY PROVIDER REPORT REPORT#:[id number] REPORT STATUS: Signed DATE:08/15/22 TIME: 1231 PATIENT: MARY DALY UNIT #: [id number] ROOM/BED: [id number] AGE: 66 SEX: M PCP PHYS: Albino Torre MD SERVICE AUTHOR: Jaden Rodgers MD * ALL edits or amendments must be made on the electronic/computer document * HPI-Recheck W/B/S Free Text HPI Notes Free Text HPI Notes 66-year-old man, history of CAD, recent CABG with Dr. Mccurdy on 08/02/2022. Here for evaluation of wound drainage and its been present for the last 3 to 4 days. Patient reports subjective chills since the operation, not reported to have discharge from the wound after leaving the hospital. Reports right-sided chest pain that has been present for several days, unchanged, no association with movement, exertion. Patient has been able to walk without reproduction of any pain. No reported redness, reports thin yellow fluid, not purulent. Denies any measured fevers. Denies any nausea, vomiting, shortness of breath. General Initial Greet Date/Time 08/15/22 1216 Presentation Chief Complaint Wound check Review of Systems Free Text ROS Notes Free Text ROS Notes Review of systems was performed, pertinent positives and negatives noted in HPI Past Medical History - Adult Stated Complaint CHEST PAIN Allergies Coded Allergies: hydromorphone (From DILAUDID) (Severe, THROAT SWELLS 07/27/22) crab (Intermediate, ITCHING, CHILLS 07/27/22) doxepin [...] CIPROFLOXACIN (CIPRO) 500 MG PO DAILY PRN DIVERTICULITIS CLOPIDOGREL (PLAVIX) 75 MG PO DAILY metroNIDAZOLE (FLAGYL) 500 MG PO TID PRN DIVERTICULITIS NEBIVOLOL (BYSTOLIC) 20 MG PO BID OMEPRAZOLE ER (PriLOSEC) 40 MG PO DAILY PRN ACID REFLUX predniSONE 1 MG PO TID SILDENAFIL (VIAGRA) 100 MG PO DAILY PRN PRN ED SODIUM FLUORIDE (PREVIDENT 5000 1.1% DENTAL) 1 APPLIC TOPICAL DAILY ASPIRIN 81 MG PO DAILY POTASSIUM GLUCONATE 1 TAB PO DAILY CALCIUM CARBONATE (CALTRATE 600 MG) 600 MG PO DAILY CHOLECALCIFEROL (VITAMIN D3) (VITAMIN D3) 1,000 UNITS PO DAILY ACETAMINOPHEN (TYLENOL) 500 MG PO Q4H PRN PRN PAIN IBUPROFEN (ADVIL) 200 MG PO Q6H PRN PRN PAIN FAMOTIDINE (PEPCID) 20 MG PO DAILY amLODIPine (NORVASC) 10 MG PO DAILY LOSARTAN (COZAAR) 50 MG PO DAILY Past Medical History: Reports: Coronary artery disease, Hypertension, Dyslipidemia, Prior MD, Steroid use. Additional Medical History Temproal arteritis (2017) Additional Surgical History Colon resection 2008 secondary to diverticulitis C3 surgery Family History: Reports: Heart disease (brother). Alcohol Use Alcohol use (1-7 drinks per week) Drug Use Denies recreational drugs Smoking status for patients 13 years old or older: Never Smoker Physical Exam Vital Signs Vital [...] Normocephalic, atraumatic. Eyes: Normal conjunctiva, anicteric. Round symmetric pupils. ENT: Hearing grossly intact. No nasal discharge. Neck: Neck is supple. No masses or thyromegaly. CV: Normal rate and regular rhythm, normal S1/S1, no murmurs, rubs, or gallops appreciated. 2+ radial pulses symmetric bilaterally. Respiratory: Clear to auscultation bilaterally, moving air well. No crackles or wheezes are heard. Abdominal: Soft, nontender, nondistended with normoactive bowel sounds. Skin: Warm. Anterior chest with sternotomy scar, mild serous drainage from lower portion with 1 mm of wound separation for a 1 to 1.5 cm portion. No induration, fluctuance. MSK: No clubbing or cyanosis. Psych: Alert and oriented. Cooperative, Appropriate mood and affect, Normal judgment. Neuro: Moving all four extremities, no facial droop, no motor asymmetry appreciated. Interpretation Diagnostics Lab [...] (Auto) (14.0 - 32.0 %) 8.3 L Brooke % (Auto) (4.8 - 9.0 %) 8.4 Eos % (Auto) (0.3 - 3.7 %) 0.9 Baso % (Auto) (0.0 - 2.0 %) 0.2 Neut # (Auto) (2.0 - 7.6 x10 3/uL) 8.05 H Lymph # (Auto) (1.0 - 3.8 x10 3/uL) 0.82 L Brooke # (Auto) (0.1 - 0.8 x10 3/uL) 0.83 H Eos # (Auto) (0.0 - 0.2 x10 3/uL) 0.09 Baso # (Auto) (0.0 - 0.2 x10 3/uL) 0.02 Abs Immat Gran (auto) (0.00 - 0.03 x10 3/uL) 0.08 H Add Manual Diff NO Immature Gran % (0.0 - 2.0 %) 0.8 Nucleated RBC % (0 - 0 %) 0.0 Nucleated RBCs # (Man) (0.0 - 0.1 x10 3/uL) 0.00 Recent Impressions: RADIOLOGY - XR CHEST 1 V 08/15 1233 Report Impression - Status: SIGNED Entered: 08/15/2022 4127 IMPRESSION: Interval decrease in the diffuse pulmonary edema. Impression By: [email or web address] - Breonna Noonan M.D. Lab Imaging Statement Laboratory radiographic studies reviewed and interpreted by me, ED physician, and considered in the medical decision-making. Free Text I D Notes Free Text I D Notes EKG from 08/15/2022 at 1222, performed for chest pain, post CABG Interpreted by myself, ED physician Sinus rhythm, rate 70 Normal axis CA, normal QRS, prolonged QTc No ST elevation or ST depression suggestive of ischemia Re-Evaluation MDM Free Text MDM Notes Free Text MDM Notes 66-year-old history of hypertension, CAD, status post CABG with Dr. Mccurdy earlier this month, presenting for chills and wound drainage from his sternotomy scar. Referred from his cardiothoracic surgeon for evaluation. Patient overall well-appearing, hemodynamically stable, not tachycardic, not short of breath, afebrile No SIRS criteria, low suspicion for sepsis Wound overall well-appearing, mild wound separation, serous drainage, but obvious concern given patient's recent surgery for possible underlying wound infection Discussed with CT surgery LINH Mendez, who evaluated, will discuss with Dr. Mccurdy next steps In the meantime, will order labs, pain control No indication for blood cultures, lactic at this time, will get CT to evaluate postoperative changes We will await cardiothoracic recommendations for antimicrobial coverage Re-Evaluation/Progress Re-Evaluation/Progress Text/Dict Note Chest x-ray independently reviewed and interpreted by me, ED physician. No focal consolidation suggestive of pneumonia, no pneumothorax. Left-sided haziness, consistent with prior x-ray while inpatient, no significant change CT surgery requesting Zosyn, will admit, follow-up on imaging --- Medical Decision Making Summary Complexity of Problems Addressed: Evaluated for multiple diagnoses as above Specifically evaluated for the following diagnoses that could pose an acute threat to life or bodily function: Postoperative wound infection Overall most suggestive of: Postoperative wound drainage Data Review/Analysis: Tests ordered as above Review of test results as above External notes reviewed: CT surgery, discharge notes from earlier this month showing operative course, discharge condition Indepentent history taken from: None Independent interpretation of tests: CXR Discussion of patient management with: Cardiothoracic surgery, who provided recommendations, will admit the patient Risk of complications/morbidity/mortality of patient management: High risk given need for inpatient observation and management --- ED Course Medication(s) Ordered Medication(s) [...] 1,000 MG X1ED STA 08/15 1237 DC 08/15 PO 08/15 1238 1326 Aspirin 324 MG X1ED STA 08/15 1217 CAN PO 08/15 1218 Electrolytic, Caloric, And Pearl Sig/Cory Start time Last Medication Dose Route Stop Time Status Admin Sodium Chloride 1,000 ML .Q10H 08/15 1300 AC IV 08/16 1147 Sodium Chloride 500 ML X1ED STA 08/15 1237 DC 08/15 IV 08/15 1336 1326 Gastrointestinal Drugs [...] signs available at the time of this entry have been reviewed. Condition Stable Clinical Impression Clinical Impression Primary Impression: Draining postoperative wound Disposition Decision Hospitalize Hosp Physician Name Rosalind Mendez )( Accepts Hospitalization Yes )( Reason for Hospitalization post operative wound drainage )( Accepted Time 1247 )( Accepted Date 08/15/22 Call Information will see patient Discharge/Care Plan Admit Note I have spoken with the patient and/or caregivers. I have explained the patient's condition, diagnoses and treatment plan based on the information available to me at this time. I have answered the patient's and/or caregiver's questions and addressed any concerns. The patient and/or caregivers have as good an understanding of the patient's diagnosis, condition and treatment plan as can be expected at this point. The patient has been stabilized within the capability of the emergency department. The patient will be transported for further care and management or will be moved to an observation or inpatient service. I have communicated with the staff or medical practitioner taking over this patient's care. at 1420 RPT #:[id number] END OF [id number] 15:06:[id number] [place] [id number] PATIENT NAME: MARY DALY ADMIT DATE: 07/30/22 ACCOUNT NO: [id number] ROOM NO: G.3346 AGE: 66 REPORT TYPE: eECHOCARDIOGRAM REPORT SEX: M ADMITTING PHYSICIAN:Anthony Loaiza MD ATTENDING PHYSICIAN:Anthony Loaiza MD *[place] [address] Limited Transthoracic Echocardiogram Patient: Mary Daly Study Date: 08/09/2022 BP: 143 / 76 Location: [facility] URN: [id number] : 1955 Age: 66 Height: 70 in / 177.8 cm Gender: M Weight: 189.6 lb / 86.2 kg BMI/BSA: 27.3 kg/m 2 / 2.04 m 2 *Ordering Physician: * Rosalind Mendez Physic *Interpreting Physician: * Denton Chaparro MD *Instructional Services Librarian: * Moira Jimenez Indications: Rule out pericardial effusion. Study data: Transthoracic echocardiogram, limited study. Procedure: Transthoracic echocardiography was performed. Image quality was adequate. Limited 2D and limited spectral Doppler. Location: Bedside. Patient status: Inpatient. Patient room number: 3346. Study status: Routine. Rhythm: Normal sinus rhythm. Findings Left ventricle: The cavity size is normal. Wall thickness is normal. Systolic function is normal. The estimated ejection fraction is 60-64%. Wall motion is normal; there are no regional wall motion abnormalities. Left ventricular diastolic function parameters are normal for the patient's age. Right ventricle: The cavity size is normal. Systolic function is PATIENT NAME: MARY DALY normal. Left atrium: The atrium is normal in size. Right atrium: The atrium is normal in size. Aorta: Aortic root: The aortic root is normal in size. Aortic valve: The valve is trileaflet. The leaflets are moderately thickened. There is no evidence of stenosis. There is no regurgitation. Mitral valve: The annulus is mildly calcified. There is no evidence of stenosis. There is trivial regurgitation. Tricuspid valve: The valve is structurally normal. There is mild regurgitation. Pulmonic valve: The valve is structurally normal. The leaflets are normal thickness. There is mild regurgitation. Pericardium: There is no pericardial effusion. Pulmonary arteries: Main pulmonary artery: The artery is of normal size. Systemic veins: Inferior vena cava: The vessel is normal in size. The respirophasic diameter changes are in the normal range (= 50%). Measurements Left ventricle Value 07/29/2022 Ref CHRIS, [...] 0.6 - 1.0 PATIENT NAME: MARY DALY IVS/PW, ED 1.03 1.03 ---- EF 52 [...] ES, A/L 34 PATIENT NAME: MARY DALY Right atrium Value 07/29/2022 Ref Area, ES [...] m/sec ---- Pulmonic valve Value 07/29/2022 Ref CA v, ED 0.65 m/sec 0.58 ---- Tricuspid valve Value 07/29/2022 Ref TR peak v 1.18 m/sec 1.21 <=2. 8 Peak RV-RA 6 mm Hg 6 ---- lenny S PATIENT NAME: MARY DALY Conclusions Summary: 1. Left ventricle: The cavity size is normal. Wall thickness is normal. Systolic function is normal. The estimated ejection fraction is 60-64%. Wall motion is normal; there are no regional wall motion abnormalities. Left ventricular diastolic function parameters are normal for the patient's age. 2. Mitral valve: The annulus is mildly calcified. There is trivial regurgitation. 3. Pulmonic valve: There is mild regurgitation. 4. Pericardium, extracardiac: There is no pericardial effusion. Prepared and electronically signed by Denton Chaparro MD 08/09/2022 15:06 at 1506 PATIENT NAME: MARY DALY 14:30:00 [facility] ([facility]) Hospitalist Discharge Summary REPORT#:[id number] REPORT STATUS: Signed DATE:08/09/22 TIME: 1430 PATIENT: MARY DALY UNIT #: [id number] ROOM/BED: [id number] : 53 AGE: 66 SEX: M ATTEND: Anthony Loaiza MD ADM AUTHOR: Liz Orozco MD * ALL edits or amendments must be made on the electronic/computer document * General Information Date of admission: Observation Start Date: 07/28/22 Date of admission: 07/30/22 Discharge date: 08/09/22 Discharge diagnosis: see below Hospital course: see below Consultants: anesthesiology, cardiology, cardiovascular surgery Free Text DxA P Notes Free text DxA P notes: Assessment and Plan: - Multivessel CAD, s/p CABG - CP due to CAD. - Hypomagnesemia. - HX of HTN/HLD and CAD. - Anemia - Leucocytosis - S/P CABG x 4 (MITCHELL to LAD, saphenous vein to first marginal, saphenous vein to second marginal, saphenous vein to PDA, Amputation of left [...] 500 MILLIGRAM ORAL DAILY. as needed for DIVERTICULITIS CLOPIDOGREL (PLAVIX) 75 MG TAB 75 MILLIGRAM ORAL DAILY. metroNIDAZOLE (FLAGYL) 500 MG TAB 500 MILLIGRAM ORAL THREE TIMES A DAY. as needed for DIVERTICULITIS NEBIVOLOL (BYSTOLIC) 20 MG TAB 20 MILLIGRAM ORAL TWICE DAILY. OMEPRAZOLE ER (PriLOSEC) 40 MG CAP.DR 40 MILLIGRAM ORAL DAILY. as needed for ACID REFLUX predniSONE (predniSONE) 1 MG TAB 1 MILLIGRAM ORAL THREE TIMES A DAY. SILDENAFIL (VIAGRA) 100 MG TAB 100 MILLIGRAM ORAL DAILY NEEDED. as needed for ED SODIUM FLUORIDE (PREVIDENT 5000 1.1% DENTAL) 1.1 % GEL 1 APPLIC TOPICAL DAILY. ASPIRIN (ASPIRIN) 81 MG TAB.CHEW 81 MILLIGRAM ORAL DAILY. POTASSIUM GLUCONATE (POTASSIUM GLUCONATE) 550 MG (90 MG) TAB 1 TABLET ORAL DAILY. CALCIUM CARBONATE (CALTRATE 600 MG) 600 MG CALCIUM (1,500 MG) TAB 600 MILLIGRAM ORAL DAILY. [...] soft Genitourinary: no bladder distention, no flank pain, no urinary catheter Extremities: no calf tenderness, no clubbing, no cyanosis Musculoskeletal: no CVA tenderness, no muscle spasm Neuro/CERAMIC PAINTER: alert, oriented X 3, CNII-XII intact Skin: [...] % (Auto) (14.0 - 32.0 %) 16.6 Brooke % (Auto) (4.8 - 9.0 %) 11.6 H Eos % (Auto) (0.3 - 3.7 %) 2.7 Baso % (Auto) (0.0 - 2.0 %) 0.4 Neut # (Auto) (2.0 - 7.6 x10 3/uL) 7.80 H Lymph # (Auto) (1.0 - 3.8 x10 3/uL) 1.91 Brooke # (Auto) (0.1 - 0.8 x10 3/uL) 1.33 H Eos # (Auto) (0.0 - 0.2 x10 3/uL) 0.31 H Baso # (Auto) (0.0 - 0.2 x10 3/uL) 0.05 Abs Immat Gran (auto) (0.00 - 0.03 x10 3/uL) 0.09 H Add Manual Diff NO Immature Gran % (0.0 - 2.0 %) 0.8 Nucleated RBC % (0 - 0 %) 0.3 H Nucleated RBCs # (Man) (0.0 - 0.1 x10 3/uL) 0.03 Radiology data: Recent Impressions: RADIOLOGY - XR CHEST 1 V 08/09 700 Report Impression - Status: SIGNED Entered: 08/09/2022910 IMPRESSION: 1. Moderate enlarged cardiac silhouette. 2. Moderate pulmonary edema versus infiltrates, pneumonia. 3. Small bilateral pleural effusions. Impression By: [email or web address] - Lor Stoner M.D. Discharge Instructions PCP PCP follow-up: PCP: Albino Torre MD Discharge to: Home/Self Care Additional Discharge Routines: PCP Follow-Up, Accountant Clerk Follow-Up Diet: Cardiac Discharge management: greater than 30 mins (45) Follow-up Appointments PCP follow-up: PCP: Albino Torre MD PCP follow up timeframe: In 1-2 weeks Consulting provider 1: Provider 1: Ludin Mccurdy MD Specialty: Thoracic Surgery Consulting provider 2: Provider 2: Melisa Gamboa MD Specialty: Cardiology at 1433 RPT #:[id number] END OF [id number] 05:23:00 [facility] ([facility]) Cardiothoracic Surgery Prog REPORT#:[id number] REPORT STATUS: Signed DATE:08/09/22 TIME: 522 PATIENT: MARY DALY UNIT #: [id number] ROOM/BED: [place] [address] : 53 AGE: 66 SEX: M ATTEND: Anthony Loaiza MD ADM AUTHOR: Rosalind Mendez Physic * ALL edits or amendments must be made on the electronic/computer document * General Post-op: day 7 Status [...] sternal Site condition: dressing clean dry, dressing intact HEENT: mucosal membranes moist Neck: full range of motion, non-tender Cardiovascular: BP/pulses equal bilat., regular rate rhythm Respiratory: aerating well, clear to auscultation Abdomen: soft, non-tender Extremities: dry, moves all Musculoskeletal: full range of motion, painless range of motion Neuro/CERAMIC PAINTER: alert, oriented X 3 Skin: dry, intact Psychiatry: normal affect, normal mood Treatment Prophylaxis Treatment Prophylaxis Drain(s)/tube(s): Drain(s)/tube(s): bertha (x2) Diagnosis, Assessment Plan Free Text A P: This is a 66-year gentleman with past medical history of coronary artery disease status post PCI in the past, with most recent in July 07, 2022, history of temporal arteritis on chronic prednisone since 2016, diverticulitis, gout, hypertension, hyperlipidemia. The patient reports a history of exertional shortness of breath with occasional chest pain over the past several weeks. 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 This revealed multivessel CAD. CV surgery consulted for evaluation for coronary bypass graft. The patient reports a history of diabetes, diet controlled for the past [...] PCI with most recent June 2022, hold Plavix in preparation for surgery. 2. Hypertension 3. Hyperlipidemia 4. Temporal arteritis in 2017 Continues on prednisone 3 mg We will begin work-up for coronary bypass graft surgery. Patient was seen in exam by Dr. Mccurdy. Further recommendations to follow as work-up underway Thank you for this kind consultation 07/29/22 Patient resting comfortable, denies complaint Patient received Plavix 75 mg on 07/28/2022 , will obtain repeat platelet response to Plavix test in the a.m. Respiratory: On room air Cardiac: Remains sinus rhythm Carotid Doppler shows no significant carotid artery stenosis Vein mapping complete Labs reviewed shows WBCs elevated 16 Urinalysis negative Neurology consult for history of temporal arteritis, appreciate input We will repeat platelet response to Plavix. Possibly plan for CABG in the a.m. Patient was seen and examined by 07/30/22 Patient resting comfortable. Denies complaints. Respiratory: On room air 100% Cardiac: Sinus rhythm Last recieved plavix on 07/28/22, Platelet response to PLavix this am= 157 Will plan for surgery next week. Neurology eval underway Patient was seen and examined by Dr. Mccurdy Work-up for coronary artery bypass graft surgery undergoing. Timing of surgery pending 07/31/22 Patient resting comfortable. Denies complaints. Respiratory: On room air 100% Cardiac: Sinus rhythm Patient recieved plavix on 07/28/22, Will repeat platelet response on Tuesday. Will plan for surgery next week Neurology following. Continue steroids for Hx of temporal arteritis. Carotids show no significant dz, CT head complete No flow-limiting stenosis or occlusion along major intracranial arterial vessels. No acute intracranial process nor bony injury UA negative, HGa1c 6.2 Patient was seen and examined by Dr. Mccurdy. Plan repeat platelet response to Plavix in [...] Work-up for coronary artery bypass graft is complete. Plan for surgery tomorrow. Patient was seen and examined by Dr. Mccurdy. Plan of care discussed with team 08/02/22 CABG x 4 (MITCHELL-LAD, SVG-OM1, SVG-OM2, SVG-PDA) ALAA EVH (LGSV) Posterior pericardiotomy 08/03/22 POD 1 Patient hemodynamically stable post operatively CXR and labs reviewed Wean off oxygen as tolerated, currently at 2l nasal cannula Encourage incentive spirometer use and deep breathing Keep chest tubes and monitor outputs Advance diet as tolerated Glycemic control on insulin drip Pain management Monitor strict I Os DVT ppx with SCDs, GI ppx with PPI Monitor patient closely in CVICU Patient seen and examined with Dr. Mccurdy, plan of care discussed with ICU team 08/04/22 POD 2 Patient recovering well, no complaints CXR and labs reviewed On 5 L nasal cannula, encourage I-S use and wean off oxygen Discontinue central line and guardado Discontinue MS chest tube, keep LP and monitor outputs Gentle diuresis with lasix IV 10 x 1, monitor strict I Os Tolerating diet PT/OT Ambulate Monitor patient in CVICU 08/05 POD 3 AAOx3 Respiratory: On 2 L nasal cannula, wean as tolerated, Encourage IS, Deep Breathing, CXR reviewed CT drainage 160, will DC today Cardiac: Remains sinus rhythm, pacing wires on standby GI: + gas, Continue Bowel regimen UO: 620. Continue PT/OT- out of bed walking Labs reveiwed- replace electrolytes as needed Patient seen and examined by Dr. Mccurdy. Plan of care discussed with multidisciplinary team 08/06/22 POD 4 Patient resting comfortable, no complaints Labs and cxr reviewed Wean off oxygen as tolerated, on 2l nasal cannula Encourage I-S use and deep breathing Tolerating diet, bowel regimen PT/OT- ambulate Monitor in CVN 1 08/09/22 POD 7 DVt study negative Resp:on room air Cardiac: Sinus rhtyhm, pacing wires DC'd at the bedside today. Will obtain echocardiogram to rule out effusion GI: + BM Patient has been out of bed walking with PT OT Okay to DC patient home today after echocardiogram complete. Followup in 1 week post op clinic 08/18/22 @ 1:15 Patient was seen in exam by Dr. Mccurdy Consultants: anesthesiology, cardiology, cardiovascular surgery at 0909 at 0947 RPT #:[id number] END OF [id number] 21:32:00 [facility] Hospitalist Progress Note REPORT#:[id number] REPORT STATUS: Signed DATE:08/08/22 TIME: 2131 PATIENT: MARY DALY UNIT #: [id number] ROOM/BED: [facility]1 : 53 AGE: 66 SEX: M ATTEND: Anthony Loaiza MD ADM AUTHOR: Jay Jay Roman DO * ALL edits or amendments must be made on the electronic/computer document * Subjective Chief complaint: He is doing well. On RA and Breathing is improved. Review of Systems Constitutional: Reports: generalized weakness. Denies: chills, fever. Respiratory: Denies: SOB, wheezing. Cardiovascular: Denies: chest [...] 24 Hrs Potassium Chloride (POTASSIUM CHLORIDE 20MEQ TAB.ER) 20 MEQ ONCE ONE PO (DC) Methocarbamol (ROBAXIN) 500 MG Q8H PRN PRN PO Amiodarone HCl (CORDARONE) 200 MG BID PO Ipratropium Garwood (ATROVENT) 500 MCG RTQ2H PRN PRN INH Cyanocobalamin (Vitamin B-12 500 mcg tab) 500 MCG DAILY PO Ferrous Sulfate (FERROUS SULFATE) 325 MG DAILY PO Bisacodyl (DULCOLAX) 10 MG ONCE PRN RECTAL Mupirocin (BACTROBAN 2% 22 GM OINTMENT) 1 APPLIC BID NASAL (DC) Atorvastatin Calcium (LIPITOR) 40 MG 2100 PO Clopidogrel Bisulfate (Plavix) 75 MG DAILY PO Polyethylene Glycol (MIRALAX) 17 GM DAILY PO Ipratropium Garwood (ATROVENT) 500 MCG RTQ6H PRN PRN INH Pantoprazole (PROTONIX) 40 MG DAILY@0600 PO Docusate Sodium (COLACE) 100 MG BID PO Metoprolol Tartrate (LOPRESSOR) 12.5 MG Q12HR PO Sennosides (Senna Lax 8.6 MG TABLET) 17.2 MG BEDTIME PO Aspirin (ASPIRIN) 81 MG DAILY PO Acetaminophen (TYLENOL) 650 MG Q4H PRN PRN PO Acetaminophen (TYLENOL) 650 MG Q4H PRN PRN RECTAL Calcium Chloride (CALCIUM CHLORIDE) 1 GM ASDIR PRN IV Dextrose/Water (DEXTROSE 10% IN WATER) 125 ML ASDIR PRN IV (CKD) Dextrose/Water (DEXTROSE 10% IN WATER) 250 ML ASDIR PRN IV (CKD) Epinephrine (ADRENALIN CHLORIDE) 4 MG ASDIR IV Dextrose/Water (DEXTROSE 5% WATER) 246 ML Glucagon (GLUCAGON) 1 MG ASDIR PRN IM Insulin Human Regular (HumuLIN R) 100 UNIT ASDIR IV (CKD) Sodium Chloride (SODIUM CHLORIDE 0.9%) 99 ML Magnesium Sulfate (MAGNESIUM SULFATE 4GM/SWFI 100ML) 100 ML ASDIR PRN IV Magnesium Sulfate (MAGNESIUM SULFATE 2GM/SWFI 50ML) 50 ML ASDIR PRN IV Magnesium Sulfate/Dextrose (MAGNESIUM SULFATE 1GM/D5W 100ML) 100 ML ASDIR PRN IV Nitroglycerin/Dextrose (NITROGLYCERIN 50,000MCG/D5W 250ML) 250 ML ASDIR IV Norepinephrine Bitartrate (NOREPINEPHRINE 8 MG/NS 250 ML) 250 ML TITRATE IV Ondansetron HCl (ZOFRAN) 4 MG Q6H PRN PRN IV Potassium Chloride (KCL 20MEQ/SWFI 100ML) 100 ML ASDIR PRN IV Sodium Bicarbonate (SODIUM BICARBONATE) 50 MEQ ASDIR PRN IV Prednisone (predniSONE) 2 MG C BK PO Physical Exam Head/Eyes: atraumatic, normocephalic, PERRLA Cardiovascular: normal capillary refill, normal heart sounds, regular rate rhythm Respiratory: aerating well, symmetric expansion, no distress Abdomen: non-tender, normal bowel sounds, soft Genitourinary: no bladder distention, no flank pain, no urinary catheter Extremities: no calf tenderness, no clubbing, no cyanosis Musculoskeletal: no CVA tenderness, no muscle spasm Neuro/CERAMIC PAINTER: alert, oriented X 3, CNII-XII intact Skin: dry, intact Wound/incision: Location: STERNOTOMY incision; c/d/i Psychiatry: normal affect, normal mood Results Findings/Data: Laboratory Tests 08/08 0442 Chemistry Sodium (134 - 147 mEq/L) 141 [...] % (Auto) (14.0 - 32.0 %) 17.1 Brooke % (Auto) (4.8 - 9.0 %) 12.0 H Eos % (Auto) (0.3 - 3.7 %) 2.1 Baso % (Auto) (0.0 - 2.0 %) 0.4 Neut # (Auto) (2.0 - 7.6 x10 3/uL) 7.64 H Lymph # (Auto) (1.0 - 3.8 x10 3/uL) 1.93 Brooke # (Auto) (0.1 - 0.8 x10 3/uL) 1.36 H Eos # (Auto) (0.0 - 0.2 x10 3/uL) 0.24 H Baso # (Auto) (0.0 - 0.2 x10 3/uL) 0.04 Abs Immat Gran (auto) (0.00 - 0.03 x10 3/uL) 0.09 H Add Manual Diff NO Immature Gran % (0.0 - 2.0 %) 0.8 Nucleated RBC % (0 - 0 %) 0.2 H Nucleated RBCs # (Man) (0.0 - 0.1 x10 3/uL) 0.02 Radiology data: Recent Impressions: RADIOLOGY - XR CHEST 1 V 08/08 0629 Report Impression - Status: SIGNED Entered: 08/08/2022924 IMPRESSION: 1. Improved left basilar opacities. 2. Tiny curvilinear density at the left apex, equivocal for a small pneumothorax, involving less than 10% volume. Attention on follow-up exam. Impression By: [email or web address] - Allan Diana M.D. Treatment Prophylaxis Treatment Prophylaxis Oxygen: room air Drain(s)/tube(s): Drain(s)/tube(s): bertha (x2) Diagnosis, Assessment Plan Consultants: anesthesiology, cardiology, cardiovascular surgery Free Text DxA P Notes Free text DxA P notes: Assessment and Plan: - Multivessel CAD, s/p CABG - CP due to CAD. - Hypomagnesemia. - HX of HTN/HLD and CAD. - Anemia - Leucocytosis - S/P CABG x 4 (MITCHELL to LAD, saphenous vein to first marginal, saphenous vein to second marginal, saphenous vein to PDA, Amputation of left atrial appendage, Endoscopic vein harvest (left greater saphenous vein) and Posterior pericardiotomy. Plan: cvn1 Will be dc home soon. Agrressive IS and PT/OT. Pain meds. Antiemetics. Continue BB, Lipitor and ASA. Follow labs and repalce as needed. Monitor. DVT ppx at 2134 RPT #:[id number] END OF [id number] 12:54:00 [facility]) Cardiology Progress Note REPORT#:[id number] REPORT STATUS: Signed DATE:08/08/22 TIME: 1254 PATIENT: MARY DAYL UNIT #: [id number] RO[address] : [address] AGE: 66 SEX: M ATTEND: Anthony Loaiza MD ADM AUTHOR: Melisa Gamboa MD * ALL edits or amendments must be made on the electronic/computer document * Subjective Chief complaint: NONE Objective [...] Flow FiO2 Mean Ox Delivery Rate 08/08 1137 [...] HCl (CORDARONE) 200 MG BID PO Ipratropium Garwood (ATROVENT) 500 MCG RTQ2H PRN PRN INH Cyanocobalamin (Vitamin B-12 500 mcg tab) 500 MCG DAILY PO Ferrous Sulfate (FERROUS SULFATE) 325 MG DAILY PO Bisacodyl (DULCOLAX) 10 MG ONCE PRN RECTAL Mupirocin (BACTROBAN 2% 22 GM OINTMENT) 1 APPLIC BID NASAL Atorvastatin Calcium (LIPITOR) 40 MG 2100 PO Clopidogrel Bisulfate (Plavix) 75 MG DAILY PO Polyethylene Glycol (MIRALAX) 17 GM DAILY PO Ipratropium Garwood (ATROVENT) 500 MCG RTQ6H PRN PRN INH Pantoprazole (PROTONIX) 40 MG DAILY@0600 PO Docusate Sodium (COLACE) 100 MG BID PO Metoprolol Tartrate (LOPRESSOR) 12.5 MG Q12HR PO Sennosides (Senna Lax 8.6 MG TABLET) 17.2 MG BEDTIME PO Aspirin (ASPIRIN) 81 MG DAILY PO Acetaminophen (TYLENOL) 650 MG Q4H PRN PRN PO Acetaminophen (TYLENOL) 650 MG Q4H PRN PRN RECTAL Calcium Chloride (CALCIUM CHLORIDE) 1 GM ASDIR PRN IV Dextrose/Water (DEXTROSE 10% IN WATER) 125 ML ASDIR PRN IV (CKD) Dextrose/Water (DEXTROSE 10% IN WATER) 250 ML ASDIR PRN IV (CKD) Epinephrine (ADRENALIN CHLORIDE) 4 MG ASDIR IV Dextrose/Water (DEXTROSE 5% WATER) 246 ML Glucagon (GLUCAGON) 1 MG ASDIR PRN IM Insulin Human Regular (HumuLIN R) 100 UNIT ASDIR IV (CKD) Sodium Chloride (SODIUM CHLORIDE 0.9%) 99 ML Magnesium Sulfate (MAGNESIUM SULFATE 4GM/SWFI 100ML) 100 ML ASDIR PRN IV Magnesium Sulfate (MAGNESIUM SULFATE 2GM/SWFI 50ML) 50 ML ASDIR PRN IV Magnesium Sulfate/Dextrose (MAGNESIUM SULFATE 1GM/D5W 100ML) 100 ML ASDIR PRN IV Nitroglycerin/Dextrose (NITROGLYCERIN 50,000MCG/D5W 250ML) 250 ML ASDIR IV Norepinephrine Bitartrate (NOREPINEPHRINE 8 MG/NS 250 ML) 250 ML TITRATE IV Ondansetron HCl (ZOFRAN) 4 MG Q6H PRN PRN IV Oxycodone HCl (ROXICODONE) 5 MG Q4H PRN PRN PO (DC) Oxycodone HCl (ROXICODONE) 10 MG Q4H PRN PRN PO (DC) Potassium Chloride (KCL 20MEQ/SWFI 100ML) 100 ML ASDIR PRN IV Sodium Bicarbonate (SODIUM BICARBONATE) 50 MEQ ASDIR PRN IV Prednisone (predniSONE) 2 MG C BK PO Status post: 6/6 LHC 08/02 CABG x 4. Physical Exam General appearance: awake Head/Eyes: atraumatic, PERRL ENT: moist mucosal membranes Neck: no JVD Cardiovascular: CV assessment: regular rate and rhythm, no murmur Respiratory: decreased breath sounds, no distress Abdomen: soft, non-tender, normal bowel sounds, no distention, no guarding Genitourinary: no flank pain, no urinary catheter Upper extremity: UE assessment: normal temperature, no edema Lower extremity: LE assessment: normal temperature Neuro/CERAMIC PAINTER: alert, oriented X 3, normal speech Skin: [...] % (Auto) (14.0 - 32.0 %) 17.1 Brooke % (Auto) (4.8 - 9.0 %) 12.0 H Eos % (Auto) (0.3 - 3.7 %) 2.1 Baso % (Auto) (0.0 - 2.0 %) 0.4 Neut # (Auto) (2.0 - 7.6 x10 3/uL) 7.64 H Lymph # (Auto) (1.0 - 3.8 x10 3/uL) 1.93 Brooke # (Auto) (0.1 - 0.8 x10 3/uL) 1.36 H Eos # (Auto) (0.0 - 0.2 x10 3/uL) 0.24 H Baso # (Auto) (0.0 - 0.2 x10 3/uL) 0.04 Abs Immat Gran (auto) (0.00 - 0.03 x10 3/uL) 0.09 H Add Manual Diff NO Immature Gran % (0.0 - 2.0 %) 0.8 Nucleated RBC % (0 - 0 %) 0.2 H Nucleated RBCs # (Man) (0.0 - 0.1 x10 3/uL) 0.02 Laboratory Tests 08/08 0442 Chemistry Magnesium (1.80 - 2.40 mg/dL) 2.05 Radiology data: Recent Impressions: ULTRASOUND - [place] 08/07 1309 Report Impression - Status: SIGNED Entered: 08/07/2022 1518 IMPRESSION: No evidence of deep vein thrombosis. Impression By: [email or web address] - Esvin Guardado M.D. RADIOLOGY - XR CHEST 1 V 08/08 2369 Report Impression - Status: SIGNED Entered: 08/08/2022 0902 IMPRESSION: 1. Improved left basilar opacities. 2. Tiny curvilinear density at the left apex, equivocal for a small pneumothorax, involving less than 10% volume. Attention on follow-up exam. Impression By: [email or web address] - Allan Diana M.D. Results: labs reviewed, vital signs reviewed, vital signs stable Treatment Prophylaxis Treatment Prophylaxis Drain(s)/tube(s): Drain(s)/tube(s): bertha (x2) Diagnosis, Assessment Plan Consultants: anesthesiology, cardiology, cardiovascular surgery Free Text DxA P Notes Free Text DxA P Notes: Mr. Daly is a pleasant 66 y/o male w/ PMHx: CAD s/p PCI, HTN, HLD, T2DM, GERD , temporal arteritis (on prednisone) presented to [facility] for elective PCI. - CAD s/p CABG x 4 (MITCHELL to LAD, SVG to M1, M2, PDA) EF 55 to 60% with grade 1 diastolic dysfunction On atorvastatin, plavix, ASA, amiodarone and Metoprolol. - HTN. BP controlled. On Metoprololol. - HLD. On statins. - Chronic temporal arteritis. - GERD. Per IM. Encourage deep breath, cough, IS. Doing better. MDM per Dr. Osorio. 08/07/22: -CABG x 4 (MITCHELL-LAD, SVG-OM1, SVG-OM2, SVG-PDA) 08-02-22 -ALAA -TELE; NSR, ON AMIOD 200 BID -STABLE -POSSIBLE DC HOME, IF OK WITH CV SURGERY 08/08/22: -PLANS FOR DC HOME TOMORROW AM -STABLE at 2246 RPT #:[id number] END OF [id number] 13:28:00 [facility] Hospitalist Progress Note REPORT#:[id number] REPORT STATUS: Signed DATE:08/07/22 TIME: 1328 PATIENT: MARY DALY UNIT #: [id number] ROOM/BED: [place] [address] : 53 AGE: 66 SEX: M ATTEND: Anthony Loaiza MD ADM AUTHOR: Jay Jay Roman DO * ALL edits or amendments must be made on the electronic/computer document * Subjective Chief complaint: He is [...] O2 Flow FiO2 Mean Ox Delivery Rate 08/07 1144 [...] HCl (CORDARONE) 200 MG BID PO Ipratropium Garwood (ATROVENT) 500 MCG RTQ2H PRN PRN INH Cyanocobalamin (Vitamin B-12 500 mcg tab) 500 MCG DAILY PO Ferrous Sulfate (FERROUS SULFATE) 325 MG DAILY PO Bisacodyl (DULCOLAX) 10 MG ONCE PRN RECTAL Mupirocin (BACTROBAN 2% 22 GM OINTMENT) 1 APPLIC BID NASAL Atorvastatin Calcium (LIPITOR) 40 MG 2100 PO Clopidogrel Bisulfate (Plavix) 75 MG DAILY PO Polyethylene Glycol (MIRALAX) 17 GM DAILY PO Ipratropium Garwood (ATROVENT) 500 MCG RTQ6H PRN PRN INH Pantoprazole (PROTONIX) 40 MG DAILY@0600 PO Docusate Sodium (COLACE) 100 MG BID PO Gabapentin (NEURONTIN) 200 MG BID PO (DC) Metoprolol Tartrate (LOPRESSOR) 12.5 MG Q12HR PO Sennosides (Senna Lax 8.6 MG TABLET) 17.2 MG BEDTIME PO Aspirin (ASPIRIN) 81 MG DAILY PO Acetaminophen (TYLENOL) 650 MG Q4H PRN PRN PO Acetaminophen (TYLENOL) 650 MG Q4H PRN PRN RECTAL Calcium Chloride (CALCIUM CHLORIDE) 1 GM ASDIR PRN IV Dextrose/Water (DEXTROSE 10% IN WATER) 125 ML ASDIR PRN IV (CKD) Dextrose/Water (DEXTROSE 10% IN WATER) 250 ML ASDIR PRN IV (CKD) Epinephrine (ADRENALIN CHLORIDE) 4 MG ASDIR IV Dextrose/Water (DEXTROSE 5% WATER) 246 ML Glucagon (GLUCAGON) 1 MG ASDIR PRN IM Insulin Human Regular (HumuLIN R) 100 UNIT ASDIR IV (CKD) Sodium Chloride (SODIUM CHLORIDE 0.9%) 99 ML Magnesium Sulfate (MAGNESIUM SULFATE 4GM/SWFI 100ML) 100 ML ASDIR PRN IV Magnesium Sulfate (MAGNESIUM SULFATE 2GM/SWFI 50ML) 50 ML ASDIR PRN IV Magnesium Sulfate/Dextrose (MAGNESIUM SULFATE 1GM/D5W 100ML) 100 ML ASDIR PRN IV Nitroglycerin/Dextrose (NITROGLYCERIN 50,000MCG/D5W 250ML) 250 ML ASDIR IV Norepinephrine Bitartrate (NOREPINEPHRINE 8 MG/NS 250 ML) 250 ML TITRATE IV Ondansetron [...] Sodium Chloride (SODIUM CHLORIDE 0.9%) 250 ML Q24H IV (DC) Prednisone (predniSONE) 2 MG C BK PO Physical Exam Head/Eyes: atraumatic, normocephalic, PERRLA Cardiovascular: normal capillary refill, normal heart sounds, regular rate rhythm Respiratory: aerating well, symmetric expansion, no distress Abdomen: non-tender, normal bowel sounds, soft Genitourinary: no bladder distention, no flank pain, no urinary catheter Extremities: no calf tenderness, no clubbing, no cyanosis Musculoskeletal: no CVA tenderness, no muscle spasm Neuro/CERAMIC PAINTER: alert, oriented X 3, CNII-XII intact Skin: [...] % (Auto) (14.0 - 32.0 %) 18.5 Brooke % (Auto) (4.8 - 9.0 %) 12.7 H Eos % (Auto) (0.3 - 3.7 %) 3.0 Baso % (Auto) (0.0 - 2.0 %) 0.3 Neut # (Auto) (2.0 - 7.6 x10 3/uL) 7.37 Lymph # (Auto) (1.0 - 3.8 x10 3/uL) 2.10 Brooke # (Auto) (0.1 - 0.8 x10 3/uL) 1.44 H Eos # (Auto) (0.0 - 0.2 x10 3/uL) 0.34 H Baso # (Auto) (0.0 - 0.2 x10 3/uL) 0.03 Abs Immat Gran (auto) (0.00 - 0.03 x10 3/uL) 0.07 H Add Manual Diff NO Immature Gran % (0.0 - 2.0 %) 0.6 Nucleated RBC % (0 - 0 %) 0.2 H Nucleated RBCs # (Man) (0.0 - 0.1 x10 3/uL) 0.02 Treatment Prophylaxis Treatment Prophylaxis Oxygen: room air Drain(s)/tube(s): Drain(s)/tube(s): bertha (x2) Diagnosis, Assessment Plan Consultants: anesthesiology, cardiology, cardiovascular surgery Free Text DxA P Notes Free text DxA P notes: Assessment and Plan: - Multivessel CAD, s/p CABG - CP due to CAD. - Hypomagnesemia. - HX of HTN/HLD and CAD. - Anemia - Leucocytosis - S/P CABG x 4 (MITCHELL to LAD, saphenous vein to first marginal, saphenous vein to second marginal, saphenous vein to PDA, Amputation of left [...] will likely go home soon DVT ppx at 2017 RPT #:[id number] END OF [id number] 12:44:00 [facility] ([facility]) Cardiology Progress Note REPORT#:[id number] REPORT STATUS: Signed DATE:08/07/22 TIME: 1244 PATIENT: MARY DALY UNIT #: [id number] ROOM/BED: [place] [address] : 53 AGE: 66 SEX: M ATTEND: Anthony Loaiza MD ADM AUTHOR: Melisa Gamboa MD * ALL edits or amendments must be made on the electronic/computer document * Subjective Chief complaint: NONE Objective [...] O2 Flow FiO2 Mean Ox Delivery Rate 08/07 1144 [...] HCl (CORDARONE) 200 MG BID PO Ipratropium Garwood (ATROVENT) 500 MCG RTQ2H PRN PRN INH Cyanocobalamin (Vitamin B-12 500 mcg tab) 500 MCG DAILY PO Ferrous Sulfate (FERROUS SULFATE) 325 MG DAILY PO Bisacodyl (DULCOLAX) 10 MG ONCE PRN RECTAL Mupirocin (BACTROBAN 2% 22 GM OINTMENT) 1 APPLIC BID NASAL Atorvastatin Calcium (LIPITOR) 40 MG 2100 PO Clopidogrel Bisulfate (Plavix) 75 MG DAILY PO Polyethylene Glycol (MIRALAX) 17 GM DAILY PO Ipratropium Garwood (ATROVENT) 500 MCG RTQ6H PRN PRN INH Pantoprazole (PROTONIX) 40 MG DAILY@0600 PO Docusate Sodium (COLACE) 100 MG BID PO Gabapentin (NEURONTIN) 200 MG BID PO (DC) Metoprolol Tartrate (LOPRESSOR) 12.5 MG Q12HR PO Sennosides (Senna Lax 8.6 MG TABLET) 17.2 MG BEDTIME PO Aspirin (ASPIRIN) 81 MG DAILY PO Acetaminophen (TYLENOL) 650 MG Q4H PRN PRN PO Acetaminophen (TYLENOL) 650 MG Q4H PRN PRN RECTAL Calcium Chloride (CALCIUM CHLORIDE) 1 GM ASDIR PRN IV Dextrose/Water (DEXTROSE 10% IN WATER) 125 ML ASDIR PRN IV (CKD) Dextrose/Water (DEXTROSE 10% IN WATER) 250 ML ASDIR PRN IV (CKD) Epinephrine (ADRENALIN CHLORIDE) 4 MG ASDIR IV Dextrose/Water (DEXTROSE 5% WATER) 246 ML Glucagon (GLUCAGON) 1 MG ASDIR PRN IM Insulin Human Regular (HumuLIN R) 100 UNIT ASDIR IV (CKD) Sodium Chloride (SODIUM CHLORIDE 0.9%) 99 ML Magnesium Sulfate (MAGNESIUM SULFATE 4GM/SWFI 100ML) 100 ML ASDIR PRN IV Magnesium Sulfate (MAGNESIUM SULFATE 2GM/SWFI 50ML) 50 ML ASDIR PRN IV Magnesium Sulfate/Dextrose (MAGNESIUM SULFATE 1GM/D5W 100ML) 100 ML ASDIR PRN IV Nitroglycerin/Dextrose (NITROGLYCERIN 50,000MCG/D5W 250ML) 250 ML ASDIR IV Norepinephrine Bitartrate (NOREPINEPHRINE 8 MG/NS 250 ML) 250 ML TITRATE IV Ondansetron [...] Sodium Chloride (SODIUM CHLORIDE 0.9%) 250 ML Q24H IV (DC) Prednisone (predniSONE) 2 MG C BK PO Status post: 07/27 LHC 08/02 CABG x 4. Physical Exam General appearance: awake Head/Eyes: atraumatic, PERRL ENT: moist mucosal membranes Neck: no JVD Cardiovascular: CV assessment: regular rate and rhythm, no murmur Respiratory: decreased breath sounds, no distress Abdomen: soft, non-tender, normal bowel sounds, no distention, no guarding Genitourinary: no flank pain, no urinary catheter Upper extremity: UE assessment: normal temperature, no edema Lower extremity: LE assessment: normal temperature Neuro/CERAMIC PAINTER: alert, oriented X 3, normal speech Skin: [...] % (Auto) (14.0 - 32.0 %) 18.5 Brooke % (Auto) (4.8 - 9.0 %) 12.7 H Eos % (Auto) (0.3 - 3.7 %) 3.0 Baso % (Auto) (0.0 - 2.0 %) 0.3 Neut # (Auto) (2.0 - 7.6 x10 3/uL) 7.37 Lymph # (Auto) (1.0 - 3.8 x10 3/uL) 2.10 Brooke # (Auto) (0.1 - 0.8 x10 3/uL) 1.44 H Eos # (Auto) (0.0 - 0.2 x10 3/uL) 0.34 H Baso # (Auto) (0.0 - 0.2 x10 3/uL) 0.03 Abs Immat Gran (auto) (0.00 - 0.03 x10 3/uL) 0.07 H Add Manual Diff NO Immature Gran % (0.0 - 2.0 %) 0.6 Nucleated RBC % (0 - 0 %) 0.2 H Nucleated RBCs # (Man) (0.0 - 0.1 x10 3/uL) 0.02 Laboratory Tests 08/07 0358 Chemistry Magnesium (1.80 - 2.40 mg/dL) 2.00 Results: labs reviewed, vital signs reviewed, vital signs stable Treatment Prophylaxis Treatment Prophylaxis Drain(s)/tube(s): Drain(s)/tube(s): bertha (x2) Diagnosis, Assessment Plan Consultants: anesthesiology, cardiology, cardiovascular surgery Free Text DxA P Notes Free Text DxA P Notes: Mr. Daly is a pleasant 66 y/o male w/ PMHx: CAD s/p PCI, HTN, HLD, T2DM, GERD , temporal arteritis (on prednisone) presented to [facility] for elective PCI. - CAD s/p CABG x 4 (MITCHELL to LAD, SVG to M1, M2, PDA) EF 55 to 60% with grade 1 diastolic dysfunction On atorvastatin, plavix, ASA, amiodarone and Metoprolol. - HTN. BP controlled. On Metoprololol. - HLD. On statins. - Chronic temporal arteritis. - GERD. Per IM. Encourage deep breath, cough, IS. Doing better. MDM per Dr. Osorio. 08/07/22: -CABG x 4 (MITCHELL-LAD, SVG-OM1, SVG-OM2, SVG-PDA) 08-02-22 -ALAA -TELE; NSR, ON AMIOD 200 BID -STABLE -POSSIBLE DC HOME, IF OK WITH CV SURGERY at 1814 RPT #:[id number] END OF [id number] 14:19:00 [facility] ([facility]) Hospitalist Progress Note REPORT#:[id number] REPORT STATUS: Signed DATE:08/06/22 TIME: 1419 PATIENT: MARY DALY UNIT #: [id number] ROOM/BED: [place] [address] : 53 AGE: 66 SEX: M ATTEND: Anthony Loaiza MD ADM AUTHOR: Liz Orozco MD * ALL edits or amendments must be made on the electronic/computer document * Subjective Chief complaint: He is doing well. On RA and Breathing is improved. Review of Systems All systems rev neg: except as noted Objective General VS/I O: Vital Signs: Date Time Temp Pulse Resp B/P B/P Pulse O2 O2 Flow FiO2 Mean Ox Delivery Rate 08/06 1143 [...] HCl (CORDARONE) 200 MG BID PO Ipratropium Garwood (ATROVENT) 500 MCG RTQ2H PRN PRN INH Cyanocobalamin (Vitamin B-12 500 mcg tab) 500 MCG DAILY PO Ferrous Sulfate (FERROUS SULFATE) 325 MG DAILY PO Bisacodyl (DULCOLAX) 10 MG ONCE PRN RECTAL Mupirocin (BACTROBAN 2% 22 GM OINTMENT) 1 APPLIC BID NASAL Atorvastatin Calcium (LIPITOR) 40 MG 2100 PO Clopidogrel Bisulfate (Plavix) 75 MG DAILY PO Polyethylene Glycol (MIRALAX) 17 GM DAILY PO Ipratropium Garwood (ATROVENT) 500 MCG RTQ6H PRN PRN INH Pantoprazole (PROTONIX) 40 MG DAILY@0600 PO Docusate Sodium (COLACE) 100 MG BID PO Gabapentin (NEURONTIN) 200 MG BID PO Metoprolol Tartrate (LOPRESSOR) 12.5 MG Q12HR PO Sennosides (Senna Lax 8.6 MG TABLET) 17.2 MG BEDTIME PO Aspirin (ASPIRIN) 81 MG DAILY PO Amiodarone HCl (CORDARONE) 200 MG TID PO (DC) Acetaminophen (TYLENOL) 650 MG Q4H PRN PRN PO Acetaminophen (TYLENOL) 650 MG Q4H PRN PRN RECTAL Calcium Chloride (CALCIUM CHLORIDE) 1 GM ASDIR PRN IV Dextrose/Water (DEXTROSE 10% IN WATER) 125 ML ASDIR PRN IV (CKD) Dextrose/Water (DEXTROSE 10% IN WATER) 250 ML ASDIR PRN IV (CKD) Epinephrine (ADRENALIN CHLORIDE) 4 MG ASDIR IV Dextrose/Water (DEXTROSE 5% WATER) 246 ML Glucagon (GLUCAGON) 1 MG ASDIR PRN IM Insulin Human Regular (HumuLIN R) 100 UNIT ASDIR IV (CKD) Sodium Chloride (SODIUM CHLORIDE 0.9%) 99 ML Magnesium Sulfate (MAGNESIUM SULFATE 4GM/SWFI 100ML) 100 ML ASDIR PRN IV Magnesium Sulfate (MAGNESIUM SULFATE 2GM/SWFI 50ML) 50 ML ASDIR PRN IV Magnesium Sulfate/Dextrose (MAGNESIUM SULFATE 1GM/D5W 100ML) 100 ML ASDIR PRN IV Nitroglycerin/Dextrose (NITROGLYCERIN 50,000MCG/D5W 250ML) 250 ML ASDIR IV Norepinephrine Bitartrate (NOREPINEPHRINE 8 MG/NS 250 ML) 250 ML TITRATE IV Ondansetron [...] Sodium Chloride (SODIUM CHLORIDE 0.9%) 250 ML Q24H IV Prednisone (predniSONE) 2 MG C BK PO Physical Exam General appearance: obese Head/Eyes: atraumatic, normocephalic, PERRLA Cardiovascular: normal capillary refill, normal heart sounds, regular rate rhythm Respiratory: aerating well, symmetric expansion, no distress Abdomen: non-tender, normal bowel sounds, soft Genitourinary: no bladder distention, no flank pain, no urinary catheter Extremities: no calf tenderness, no clubbing, no cyanosis Musculoskeletal: no CVA tenderness, no muscle spasm Neuro/CERAMIC PAINTER: alert, oriented X 3, CNII-XII intact Skin: [...] to first marginal, saphenous vein to second marginal, saphenous vein to PDA, Amputation of left [...] aspirin, lipitor will likely go home soon at 1421 [facility] #:[id number] END OF [id number] 09:23:00 [facility] ([facility]) Cardiothoracic Surgery Prog REPORT#:[id number] REPORT STATUS: Signed DATE:08/06/22 TIME: 922 PATIENT: MARY DALY UNIT #: [id number] ROOM[address]BED: [address] : 53 AGE: 66 SEX: M ATTEND: Anthony Loaiza MD ADM AUTHOR: Ludin Mccurdy MD * ALL edits or amendments must be made on the electronic/computer document * General Post-op: day 4 Status [...] 723 Temp 37.1 08/07 723 Pulse 74 06/16 0724 Resp 18 08/06 0724 O2 Delivery Nasal cannula 08/06 0350 O2 Flow Rate 2 08/06 1999 24 hour I O ending at 0700: 08/06 0700 08/05 1900 Intake Total Output Total Balance Patient 90.6 kg Weight Weight Bed scale Measurement Method PATIENT WEIGHT: Weight (lb): 199 Weight (oz): 11.82 Weight (kg): 90.600 Dietitian Nutrition assessment The data set between the solid lines has been imported from the dietitian's assessment. BMI Calculated: 28.7 Nutrition related diagnosis: Nutrition diagnosis details: Nutrition problem: Increased nutrient needs Nutrition etiology: Acute illness Nutrition signs and symptoms: ESTIMATED NEEDS S/P SURGERY Nutrition prescription: 1. CONTINUE CARDIAC DIET. HONOR FOOD PREFERENCES APPROPRIATE WITH DIET ORDER. 2. PROVIDE GLUCERNA TID WITH MEALS. 3. MONITOR PO, WT, LABS, BM 4. HEALTHY HEART DIET EDUCATION PRIOR TO DISCHARGE. Dietitian name: Connie Anders, DIET Assessment completed: 08/03/22 Physical Exam General appearance: alert, awake, oriented Wound/incision: Location: sternal Site condition: dressing clean dry, dressing intact HEENT: mucosal membranes moist Neck: full range of motion, non-tender Cardiovascular: BP/pulses equal bilat., regular rate rhythm Respiratory: aerating well, clear to auscultation Abdomen: soft, non-tender Extremities: dry, moves all Musculoskeletal: full range of motion, painless range of motion Neuro/CERAMIC PAINTER: alert, oriented X 3 Skin: dry, intact Psychiatry: normal affect, normal mood Current Medications Medications: Active Meds + DC'd Last 24 Hrs Amiodarone HCl (CORDARONE) 200 MG BID PO (UNVr) Ipratropium Garwood (ATROVENT) 500 MCG RTQ2H PRN PRN INH Furosemide (LASIX 20MG INJ) 20 MG ONCE ONE IV (DC) Magnesium Citrate (MAGNESIUM CITRATE) 150 ML ONCE ONE PO (DC) Cyanocobalamin (Vitamin B-12 500 mcg tab) 500 MCG DAILY PO Ferrous Sulfate (FERROUS SULFATE) 325 MG DAILY PO Bisacodyl (DULCOLAX) 10 MG ONCE PRN RECTAL Mupirocin (BACTROBAN 2% 22 GM OINTMENT) 1 APPLIC BID NASAL Atorvastatin Calcium (LIPITOR) 40 MG 2100 PO Clopidogrel Bisulfate (Plavix) 75 MG DAILY PO Polyethylene Glycol (MIRALAX) 17 GM DAILY PO Ipratropium Garwood (ATROVENT) 500 MCG RTQ6H PRN PRN INH Pantoprazole (PROTONIX) 40 MG DAILY@0600 PO Docusate Sodium (COLACE) 100 MG BID PO Gabapentin (NEURONTIN) 200 MG BID PO Metoprolol Tartrate (LOPRESSOR) 12.5 MG Q12HR PO Sennosides (Senna Lax 8.6 MG TABLET) 17.2 MG BEDTIME PO Aspirin (ASPIRIN) 81 MG DAILY PO Ipratropium Garwood (ATROVENT) 500 MCG RTQ4H INH (DC) Amiodarone HCl (CORDARONE) 200 MG TID PO (DCr) Acetaminophen (TYLENOL) 650 MG Q4H PRN PRN PO Acetaminophen (TYLENOL) 650 MG Q4H PRN PRN RECTAL Calcium Chloride (CALCIUM CHLORIDE) 1 GM ASDIR PRN IV Dextrose/Water (DEXTROSE 10% IN WATER) 125 ML ASDIR PRN IV (CKD) Dextrose/Water (DEXTROSE 10% IN WATER) 250 ML ASDIR PRN IV (CKD) Epinephrine (ADRENALIN CHLORIDE) 4 MG ASDIR IV Dextrose/Water (DEXTROSE 5% WATER) 246 ML Glucagon (GLUCAGON) 1 MG ASDIR PRN IM Insulin Human Regular (HumuLIN R) 100 UNIT ASDIR IV (CKD) Sodium Chloride (SODIUM CHLORIDE 0.9%) 99 ML Magnesium Sulfate (MAGNESIUM SULFATE 4GM/SWFI 100ML) 100 ML ASDIR PRN IV Magnesium Sulfate (MAGNESIUM SULFATE 2GM/SWFI 50ML) 50 ML ASDIR PRN IV Magnesium Sulfate/Dextrose (MAGNESIUM SULFATE 1GM/D5W 100ML) 100 ML ASDIR PRN IV Nitroglycerin/Dextrose (NITROGLYCERIN 50,000MCG/D5W 250ML) 250 ML ASDIR IV Norepinephrine Bitartrate (NOREPINEPHRINE 8 MG/NS 250 ML) 250 ML TITRATE IV Ondansetron [...] Sodium Chloride (SODIUM CHLORIDE 0.9%) 250 ML Q24H IV Prednisone (predniSONE) 2 MG C BK [...] apparent pulmonary vascular congestion and pulmonary edema. Impression By: [email or web address] - Maik Sandra M.D. Results: labs reviewed, vital signs stable, rythm personally rev'd, x-ray personally reviewed, current med profile rev'd Diagnosis, Assessment Plan Free Text A P: This is a 66-year gentleman with past medical history of coronary artery disease status post PCI in the past, with most recent in July 07, 2022, history of temporal arteritis on chronic prednisone since 2017, diverticulitis, gout, hypertension, hyperlipidemia. The patient reports a history of exertional shortness of breath with occasional chest pain over the past several weeks. 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 This revealed multivessel CAD. CV surgery consulted for evaluation for coronary bypass graft. The patient reports a history of diabetes, diet controlled for the past [...] PCI with most recent June 2022, hold Plavix in preparation for surgery. 2. Hypertension 3. Hyperlipidemia 4. Temporal arteritis in 2017 Continues on prednisone 3 mg We will begin work-up for coronary bypass graft surgery. Patient was seen in exam by Dr. Mccurdy. Further recommendations to follow as work-up underway Thank you for this kind consultation 07/29/22 Patient resting comfortable, denies complaint Patient received Plavix 75 mg on 07/28/2022 , will obtain repeat platelet response to Plavix test in the a.m. Respiratory: On room air Cardiac: Remains sinus rhythm Carotid Doppler shows no significant carotid artery stenosis Vein mapping complete Labs reviewed shows WBCs elevated 16 Urinalysis negative Neurology consult for history of temporal arteritis, appreciate input We will repeat platelet response to Plavix. Possibly plan for CABG in the a.m. Patient was seen and examined by 07/30/22 Patient resting comfortable. Denies complaints. Respiratory: On room air 100% Cardiac: Sinus rhythm Last recieved plavix on 07/28/22, Platelet response to PLavix this am= 157 Will plan for surgery next week. Neurology eval underway Patient was seen and examined by Dr. Mccurdy Work-up for coronary artery bypass graft surgery undergoing. Timing of surgery pending 07/31/22 Patient resting comfortable. Denies complaints. Respiratory: On room air 100% Cardiac: Sinus rhythm Patient recieved plavix on 07/28/22, Will repeat platelet response on Tuesday. Will plan for surgery next week Neurology following. Continue steroids for Hx of temporal arteritis. Carotids show no significant dz, CT head complete No flow-limiting stenosis or occlusion along major intracranial arterial vessels. No acute intracranial process nor bony injury UA negative, HGa1c 6.2 Patient was seen and examined by Dr. Mccurdy. Plan repeat platelet response to Plavix in [...] Work-up for coronary artery bypass graft is complete. Plan for surgery tomorrow. Patient was seen and examined by Dr. Mccurdy. Plan of care discussed with team 08/02/22 CABG x 4 (MITCHELL-LAD, SVG-OM1, SVG-OM2, SVG-PDA) ALAA EVH (LGSV) Posterior pericardiotomy 08/03/22 POD 1 Patient hemodynamically stable post operatively CXR and labs reviewed Wean off oxygen as tolerated, currently at 2l nasal cannula Encourage incentive spirometer use and deep breathing Keep chest tubes and monitor outputs Advance diet as tolerated Glycemic control on insulin drip Pain management Monitor strict I Os DVT ppx with SCDs, GI ppx with PPI Monitor patient closely in CVICU Patient seen and examined with Dr. Mccurdy, plan of care discussed with ICU team 08/04/22 POD 2 Patient recovering well, no complaints CXR and labs reviewed On 5 L nasal cannula, encourage I-S use and wean off oxygen Discontinue central line and guardado Discontinue MS chest tube, keep LP and monitor outputs Gentle diuresis with lasix IV 10 x 1, monitor strict I Os Tolerating diet PT/OT Ambulate Monitor patient in CVICU 08/05 POD 3 AAOx3 Respiratory: On 2 L nasal cannula, wean as tolerated, Encourage IS, Deep Breathing, CXR reviewed CT drainage 160, will DC today Cardiac: Remains sinus rhythm, pacing wires on standby GI: + gas, Continue Bowel regimen UO: 620. Continue PT/OT- out of bed walking Labs reveiwed- replace electrolytes as needed Patient seen and examined by Dr. Mccurdy. Plan of care discussed with multidisciplinary team 08/06/22 POD 4 Patient resting comfortable, no complaints Labs and cxr reviewed Wean off oxygen as tolerated, on 2l nasal cannula Encourage I-S use and deep breathing Tolerating diet, bowel regimen PT/OT- ambulate Monitor in CVN 1 Consultants: anesthesiology, cardiology, cardiovascular surgery at 1548 RPT #:[id number] END OF [id number] 09:04:00 [facility] ([facility]) Cardiology Progress Note REPORT#:[id number] REPORT STATUS: Signed DATE:08/06/22 TIME: 09 PATIENT: MARY DALY UNIT #: [id number] ROOM/BED: 3346[address]1 : 53 AGE: 66 SEX: M ATTEND: Anthony Loaiza MD ADM AUTHOR: Harper Rae NP * ALL edits or amendments must be made on the electronic/computer document * Subjective Chief complaint: chest pain when taking deep breath. Patient reports: No: chest pain, palpitations, shortness of breath. Nursing reports: No: complaints. Comments: Patient is [...] O2 Flow FiO2 Mean Ox Delivery Rate 08/06 1143 [...] Meds + DC'd Last 24 Hrs Ipratropium Garwood (ATROVENT) 500 MCG RTQ2H PRN PRN INH Furosemide (LASIX 20MG INJ) 20 MG ONCE ONE IV (DC) Magnesium Citrate (MAGNESIUM CITRATE) 150 ML ONCE ONE PO (DC) Cyanocobalamin (Vitamin B-12 500 mcg tab) 500 MCG DAILY PO Ferrous Sulfate (FERROUS SULFATE) 325 MG DAILY PO Bisacodyl (DULCOLAX) 10 MG ONCE PRN RECTAL Mupirocin (BACTROBAN 2% 22 GM OINTMENT) 1 APPLIC BID NASAL Atorvastatin Calcium (LIPITOR) 40 MG 2100 PO Clopidogrel Bisulfate (Plavix) 75 MG DAILY PO Polyethylene Glycol (MIRALAX) 17 GM DAILY PO Ipratropium Garwood (ATROVENT) 500 MCG RTQ6H PRN PRN INH Pantoprazole (PROTONIX) 40 MG DAILY@0600 PO Docusate Sodium (COLACE) 100 MG BID PO Gabapentin (NEURONTIN) 200 MG BID PO Metoprolol Tartrate (LOPRESSOR) 12.5 MG Q12HR PO Sennosides (Senna Lax 8.6 MG TABLET) 17.2 MG BEDTIME PO Aspirin (ASPIRIN) 81 MG DAILY PO Ipratropium Garwood (ATROVENT) 500 MCG RTQ4H INH (DC) Amiodarone HCl (CORDARONE) 200 MG TID PO Acetaminophen (TYLENOL) 650 MG Q4H PRN PRN PO Acetaminophen (TYLENOL) 650 MG Q4H PRN PRN RECTAL Calcium Chloride (CALCIUM CHLORIDE) 1 GM ASDIR PRN IV Dextrose/Water (DEXTROSE 10% IN WATER) 125 ML ASDIR PRN IV (CKD) Dextrose/Water (DEXTROSE 10% IN WATER) 250 ML ASDIR PRN IV (CKD) Epinephrine (ADRENALIN CHLORIDE) 4 MG ASDIR IV Dextrose/Water (DEXTROSE 5% WATER) 246 ML Glucagon (GLUCAGON) 1 MG ASDIR PRN IM Insulin Human Regular (HumuLIN R) 100 UNIT ASDIR IV (CKD) Sodium Chloride (SODIUM CHLORIDE 0.9%) 99 ML Magnesium Sulfate (MAGNESIUM SULFATE 4GM/SWFI 100ML) 100 ML ASDIR PRN IV Magnesium Sulfate (MAGNESIUM SULFATE 2GM/SWFI 50ML) 50 ML ASDIR PRN IV Magnesium Sulfate/Dextrose (MAGNESIUM SULFATE 1GM/D5W 100ML) 100 ML ASDIR PRN IV Nitroglycerin/Dextrose (NITROGLYCERIN 50,000MCG/D5W 250ML) 250 ML ASDIR IV Norepinephrine Bitartrate (NOREPINEPHRINE 8 MG/NS 250 ML) 250 ML TITRATE IV Ondansetron [...] Sodium Chloride (SODIUM CHLORIDE 0.9%) 250 ML Q24H IV Prednisone (predniSONE) 2 MG C BK PO Status post: 07/27 LHC 08/02 CABG x 4. Physical Exam General appearance: alert, awake, oriented, no acute distress, conversational, mental status normal, no respiratory distress Head/Eyes: atraumatic, PERRL ENT: moist mucosal membranes Neck: no JVD Cardiovascular: CV assessment: regular rate and rhythm, no murmur Respiratory: decreased breath sounds, no distress Abdomen: soft, non-tender, normal bowel sounds, no distention, no guarding Genitourinary: no flank pain, no urinary catheter Upper extremity: UE assessment: normal temperature, no edema Lower extremity: LE assessment: normal temperature Neuro/CERAMIC PAINTER: alert, oriented X 3, normal speech Skin: [...] % (Auto) (14.0 - 32.0 %) 14.6 Brooke % (Auto) (4.8 - 9.0 %) 12.8 H Eos % (Auto) (0.3 - 3.7 %) 1.9 Baso % (Auto) (0.0 - 2.0 %) 0.2 Neut # (Auto) (2.0 - 7.6 x10 3/uL) 9.01 H Lymph # (Auto) (1.0 - 3.8 x10 3/uL) 1.88 Brooke # (Auto) (0.1 - 0.8 x10 3/uL) 1.65 H Eos # (Auto) (0.0 - 0.2 x10 3/uL) 0.24 H Baso # (Auto) (0.0 - 0.2 x10 3/uL) 0.03 Abs Immat Gran (auto) (0.00 - 0.03 x10 3/uL) 0.07 H Add Manual Diff NO Immature Gran % (0.0 - 2.0 %) 0.5 Nucleated RBC % (0 - 0 %) 0.0 Nucleated RBCs # (Man) (0.0 - 0.1 x10 3/uL) 0.00 Laboratory Tests 08/06 0416 Chemistry Magnesium (1.80 - 2.40 mg/dL) 2.03 Radiology data: Recent Impressions: RADIOLOGY - XR CHEST 1 V 08/06 0620 Report Impression - Status: SIGNED Entered: 08/06/2022826 IMPRESSION: Interval removal left chest tube. No pneumothorax. Small posterior layering left pleural effusion may be present. Cardiomegaly, with apparent pulmonary vascular congestion and pulmonary edema. Impression By: [email or web address] - Maik Sandra M.D. Results: labs reviewed, vital signs reviewed, vital signs stable, rhythm personally rev'd, current med profile rev'd Telemetry Interpretation: nsr Diagnosis, Assessment Plan Consultants: anesthesiology, cardiology, cardiovascular surgery Plan discussed with: patient, nurse Free Text DxA P Notes Free Text DxA P Notes: Mr. Daly is a pleasant 66 y/o male w/ PMHx: CAD s/p PCI, HTN, HLD, T2DM, GERD , temporal arteritis (on prednisone) presented to [facility] for elective PCI. - CAD s/p CABG x 4 (MITCHELL to LAD, SVG to M1, M2, PDA) EF 55 to 60% with grade 1 diastolic dysfunction On atorvastatin, plavix, ASA, amiodarone and Metoprolol. - HTN. BP controlled. On Metoprololol. - HLD. On statins. - Chronic temporal arteritis. - GERD. Per IM. Encourage deep breath, cough, IS. Doing better. MDM per Dr. Osorio. at 1555 at 1632 [facility] #:[id number] END OF [id number] 10:45:00 [facility] ([facility]) Clinical Note REPORT#:[id number] REPORT STATUS: Signed DATE:08/05/22 TIME: 104 PATIENT: MARY DALY UNIT #: [id number] ROOM/BED: [place] [address] : 53 AGE: 66 SEX: M ATTEND: Anthony Loaiza MD ADM AUTHOR: Mary Briggs MD * ALL edits or amendments must be made on the electronic/computer document * Clinical Note Note: STS RISK SCORES Procedure: Isolated CABG CALCULATE Risk of Mortality: 0.840% Renal Failure: 1.059% Permanent Stroke: 0.840% Prolonged Ventilation: 3.487% DSW Infection: 0.406% Reoperation: 1.579% Morbidity or Mortality: 6.159% Short Length of Stay: 54.349% Long Length of Stay: 2.663% at 1045 RPT #:[id number] END OF [id number] 10:15:00 [facility] Hospitalist Progress Note REPORT#:[id number] REPORT STATUS: Signed DATE:08/05/22 TIME: 1015 PATIENT: MARY DALY UNIT #: [id number] ROOM/BED: [place] [address] : 53 AGE: 66 SEX: M ATTEND: Anthnoy Loaiza MD ADM AUTHOR: Luther Martin ANESTHESIOLOGIST * ALL edits or amendments must be made on the electronic/computer document * Luther Martin 08/05/22 1015: Subjective Chief complaint: He is doing well. On RA and Breathing is improved. Chest tube x 1 noted. His CP is improved. No fever, chills. NO N/v/d. Review of Systems Constitutional: Reports: fatigue, generalized weakness. Allergy/Immun: Denies: anaphylaxis, itching, rhinorrhea. ENT: Denies: ear ringing, mouth pain, sinus problem, throat swelling. Respiratory: Denies: hemoptysis, parox nocturnal dyspnea, pleurisy, pneumonia. Cardiovascular: Denies: PETERSEN (dyspnea on exertion), edema, orthopnea. GI: Denies: anorexia, dysphagia, hematochezia, hiatal hernia. : Denies: frequency, nocturia, testicular swelling. Heme: Denies: bleeding. Endocrine: Denies: cold intolerance, polyphagia, weight gain. Neuro: Denies: change in LOC, gait problem, lightheaded, spinning sensation. Objective General VS/I O: Vital [...] Meds + DC'd Last 24 Hrs Ipratropium Garwood (ATROVENT) 500 MCG RTQ2H PRN PRN INH Cyanocobalamin (Vitamin B-12 500 mcg tab) 500 MCG DAILY PO Ferrous Sulfate (FERROUS SULFATE) 325 MG DAILY PO Potassium Chloride (POTASSIUM CHLORIDE 20MEQ TAB.ER) 20 MEQ ONCE ONE PO (DC) Bisacodyl (DULCOLAX) 10 MG ONCE PRN RECTAL Magnesium Hydroxide (MILK OF MAGNESIA) 30 ML ONCE PRN PO (DC) Mupirocin (BACTROBAN 2% 22 GM OINTMENT) 1 APPLIC BID NASAL Atorvastatin Calcium (LIPITOR) 40 MG 2100 PO Clopidogrel Bisulfate (Plavix) 75 MG DAILY PO Polyethylene Glycol (MIRALAX) 17 GM DAILY PO Ipratropium Garwood (ATROVENT) 500 MCG RTQ6H PRN PRN INH Pantoprazole (PROTONIX) 40 MG DAILY@0600 PO Docusate Sodium (COLACE) 100 MG BID PO Gabapentin (NEURONTIN) 200 MG BID PO Metoprolol Tartrate (LOPRESSOR) 12.5 MG Q12HR PO Sennosides (Senna Lax 8.6 MG TABLET) 17.2 MG BEDTIME PO Aspirin (ASPIRIN) 81 MG DAILY PO Ipratropium Garwood (ATROVENT) 500 MCG RTQ4H INH Amiodarone HCl (CORDARONE) 200 MG TID PO Acetaminophen (TYLENOL) 650 MG Q4H PRN PRN PO Acetaminophen (TYLENOL) 650 MG Q4H PRN PRN RECTAL Calcium Chloride (CALCIUM CHLORIDE) 1 GM ASDIR PRN IV Dextrose/Water (DEXTROSE 10% IN WATER) 125 ML ASDIR PRN IV (CKD) Dextrose/Water (DEXTROSE 10% IN WATER) 250 ML ASDIR PRN IV (CKD) Epinephrine (ADRENALIN CHLORIDE) 4 MG ASDIR IV Dextrose/Water (DEXTROSE 5% WATER) 246 ML Glucagon (GLUCAGON) 1 MG ASDIR PRN IM Insulin Human Regular (HumuLIN R) 100 UNIT ASDIR IV (CKD) Sodium Chloride (SODIUM CHLORIDE 0.9%) 99 ML Magnesium Sulfate (MAGNESIUM SULFATE 4GM/SWFI 100ML) 100 ML ASDIR PRN IV Magnesium Sulfate (MAGNESIUM SULFATE 2GM/SWFI 50ML) 50 ML ASDIR PRN IV Magnesium Sulfate/Dextrose (MAGNESIUM SULFATE 1GM/D5W 100ML) 100 ML ASDIR PRN IV Nitroglycerin/Dextrose (NITROGLYCERIN 50,000MCG/D5W 250ML) 250 ML ASDIR IV Norepinephrine Bitartrate (NOREPINEPHRINE 8 MG/NS 250 ML) 250 ML TITRATE IV Ondansetron [...] Sodium Chloride (SODIUM CHLORIDE 0.9%) 250 ML Q24H IV Prednisone (predniSONE) 2 MG C BK PO Dietitian nutrition assessment The data set between the solid lines has been imported from the dietitian's assessment. BMI Calculated: 28.5 Nutrition related diagnosis: Nutrition diagnosis details: Nutrition problem: Increased nutrient needs Nutrition etiology: Acute illness Nutrition signs and symptoms: ESTIMATED NEEDS S/P SURGERY Nutrition prescription: 1. CONTINUE CARDIAC DIET. HONOR FOOD PREFERENCES APPROPRIATE WITH DIET ORDER. 2. PROVIDE GLUCERNA TID WITH MEALS. 3. MONITOR PO, WT, LABS, BM 4. HEALTHY HEART DIET EDUCATION PRIOR TO DISCHARGE. Dietitian name: Connie Anders, DIET Assessment completed: 08/03/22 Physical Exam General appearance: alert, awake, oriented Head/Eyes: atraumatic, normocephalic, PERRLA Cardiovascular: normal capillary refill, normal heart sounds, regular rate rhythm Respiratory: aerating well, symmetric expansion, no distress Abdomen: non-tender, normal bowel sounds, soft Genitourinary: no bladder distention, no flank pain, no urinary catheter Extremities: no calf tenderness, no clubbing, no cyanosis Musculoskeletal: no CVA tenderness, no muscle spasm Neuro/CERAMIC PAINTER: alert, oriented X 3, CNII-XII intact Skin: [...] % (Auto) (14.0 - 32.0 %) 15.7 Brooke % (Auto) (4.8 - 9.0 %) 15.0 H Eos % (Auto) (0.3 - 3.7 %) 1.1 Baso % (Auto) (0.0 - 2.0 %) 0.2 Neut # (Auto) (2.0 - 7.6 x10 3/uL) 9.99 H Lymph # (Auto) (1.0 - 3.8 x10 3/uL) 2.33 Brooke # (Auto) (0.1 - 0.8 x10 3/uL) 2.22 H Eos # (Auto) (0.0 - 0.2 x10 3/uL) 0.16 Baso # (Auto) (0.0 - 0.2 x10 3/uL) 0.03 Abs Immat Gran (auto) (0.00 - 0.03 x10 3/uL) 0.09 H Add Manual Diff NO Immature Gran % (0.0 - 2.0 %) 0.6 Nucleated RBC % (0 - 0 %) 0.0 Nucleated RBCs # (Man) (0.0 - 0.1 x10 3/uL) 0.00 Radiology data: Recent Impressions: RADIOLOGY - XR CHEST 1 V 08/05 0656 Report Impression - Status: SIGNED Entered: 08/05/2022 0813 IMPRESSION: 1. Worsening lung opacities. 2. Resolution of small left pneumothorax. Stable left chest tube. 3. Removal of right catheter sheath. Impression By: [email or web address] - Allan Diana M.D. Results: labs reviewed, vital signs reviewed, vital signs stable, current med profile rev'd Treatment Prophylaxis Treatment Prophylaxis Oxygen: room air Drain(s)/tube(s): Drain(s)/tube(s): bertha (x2) Diagnosis, Assessment Plan Consultants: anesthesiology, cardiology, cardiovascular surgery Code status: full code Plan discussed with: patient, admitting physician, consultants, nurse Free Text DxA P Notes Free text DxA P notes: Assessment and Plan: - Multivessel CAD. - CP due to CAD. - Hypomagnesemia. - HX of HTN/HLD and CAD. - S/P CABG x 4 (MITCHELL to LAD, saphenous vein to first marginal, saphenous vein to second marginal, saphenous vein to PDA, Amputation of left atrial appendage, Endoscopic vein harvest (left greater saphenous vein) and Posterior pericardiotomy. Plan: CVICU. Will be dc home soon. Agrressive IS and PT/OT. Monitor Chest tube outpt. Pain meds. Antiemetics. Continue BB, Lipitor and ASA. Follow labs and repalce as needed. Monitor. Anthony Loaiza 08/16/22 1932: Attestations Physician Attestation Agree w/findings plan: Patient seen and examined, I agree with the findings and plan as discussed with and documented by Luther Martin NP at 1017 at 1942 RPT #:[id number] END OF [id number] 07:20:00 [facility] Cardiology Progress Note REPORT#:[id number] REPORT STATUS: Signed DATE:08/05/22 TIME: 719 PATIENT: MARY DALY UNIT #: [id number] ROOM/BED: [place] [address] : 53 AGE: 66 SEX: M ATTEND: Anthony Loaiza MD ADM AUTHOR: Denton Chaparro MD * ALL edits or amendments must be made on the electronic/computer document * Subjective Chief complaint: Shortness of [...] 08/05 0400 73 20 127/62 87 98 06/15 0300 75 22 112/57 79 97 06/15 0200 74 20 111/67 84 96 06/15 0100 73 20 126/62 89 97 06/15 0000 72 20 122/63 86 97 06/14 2300 74 24 117/68 86 97 06/14 2201 75 119/58 82 96 06/14 2100 78 115/59 81 95 08/04 2001 96 Nasal 2 cannula 08/05 1999 98.6 061999 High flow 2 nasal cannula 08/05 1999 79 119/64 86 95 06/14 1900 79 121/63 87 94 06/14 1800 83 34 134/60 87 91 06/14 [...] 1206 95 High flow 3 nasal cannula /14 1200 128/50 73 06/14 1200 100.2 78 [...] 0745 95 High flow 3 nasal cannula /14 0745 100.2 79 30 129/47 69 93 06/14 0730 100.2 77 26 150/50 74 95 PATIENT WEIGHT: Weight (lb): 198 Weight (oz): 13.71 Weight (kg): 90.200 Medications: Active Meds + DC'd Last 24 Hrs Ipratropium Garwood (ATROVENT) 500 MCG RTQ2H PRN PRN INH Cyanocobalamin (Vitamin B-12 500 mcg tab) 500 MCG DAILY PO Ferrous Sulfate (FERROUS SULFATE) 325 MG DAILY PO Potassium Chloride (POTASSIUM CHLORIDE 20MEQ TAB.ER) 20 MEQ ONCE ONE PO (DC) Bisacodyl (DULCOLAX) 10 MG ONCE PRN RECTAL Magnesium Hydroxide (MILK OF MAGNESIA) 30 ML ONCE PRN PO (DC) Furosemide (LASIX 20MG INJ) 10 MG ONCE ONE IV (DC) Potassium Chloride (POTASSIUM CHLORIDE 20MEQ TAB.ER) 40 MEQ ONCE ONE PO (DC) Mupirocin (BACTROBAN 2% 22 GM OINTMENT) 1 APPLIC BID NASAL Atorvastatin Calcium (LIPITOR) 40 MG 2100 PO Clopidogrel Bisulfate (Plavix) 75 MG DAILY PO Polyethylene Glycol (MIRALAX) 17 GM DAILY PO Ipratropium Garwood (ATROVENT) 500 MCG RTQ6H PRN PRN INH Pantoprazole (PROTONIX) 40 MG DAILY@0600 PO Docusate Sodium (COLACE) 100 MG BID PO Gabapentin (NEURONTIN) 200 MG BID PO Metoprolol Tartrate (LOPRESSOR) 12.5 MG Q12HR PO Sennosides (Senna Lax 8.6 MG TABLET) 17.2 MG BEDTIME PO Aspirin (ASPIRIN) 81 MG DAILY PO Ipratropium Garwood (ATROVENT) 500 MCG RTQ4H INH Amiodarone HCl (CORDARONE) 200 MG TID PO Acetaminophen (TYLENOL) 650 MG Q4H PRN PRN PO Acetaminophen (TYLENOL) 650 MG Q4H PRN PRN RECTAL Calcium Chloride (CALCIUM CHLORIDE) 1 GM ASDIR PRN IV Dextrose/Water (DEXTROSE 10% IN WATER) 125 ML ASDIR PRN IV (CKD) Dextrose/Water (DEXTROSE 10% IN WATER) 250 ML ASDIR PRN IV (CKD) Epinephrine (ADRENALIN CHLORIDE) 4 MG ASDIR IV Dextrose/Water (DEXTROSE 5% WATER) 246 ML Glucagon (GLUCAGON) 1 MG ASDIR PRN IM Insulin Human Regular (HumuLIN R) 100 UNIT ASDIR IV (CKD) Sodium Chloride (SODIUM CHLORIDE 0.9%) 99 ML Magnesium Sulfate (MAGNESIUM SULFATE 4GM/SWFI 100ML) 100 ML ASDIR PRN IV Magnesium Sulfate (MAGNESIUM SULFATE 2GM/SWFI 50ML) 50 ML ASDIR PRN IV Magnesium Sulfate/Dextrose (MAGNESIUM SULFATE 1GM/D5W 100ML) 100 ML ASDIR PRN IV Nitroglycerin/Dextrose (NITROGLYCERIN 50,000MCG/D5W 250ML) 250 ML ASDIR IV Norepinephrine Bitartrate (NOREPINEPHRINE 8 MG/NS 250 ML) 250 ML TITRATE IV Ondansetron [...] Sodium Chloride (SODIUM CHLORIDE 0.9%) 250 ML Q24H IV Prednisone (predniSONE) 2 MG C BK PO Status post: 07/27 LHC 08/02 CABG x 4. Physical Exam General appearance: alert, awake Head/Eyes: atraumatic, PERRL ENT: moist mucosal membranes Neck: full range of motion, no JVD Cardiovascular: CV assessment: regular rate and rhythm, no murmur Respiratory: decreased breath sounds, no distress Abdomen: soft, non-tender, normal bowel sounds, no distention, no guarding Genitourinary: no flank pain, no urinary catheter Upper extremity: UE assessment: normal temperature, no edema Lower extremity: LE assessment: edema, normal temperature Neuro/CERAMIC PAINTER: alert, oriented X 3, normal speech Skin: [...] (x2) Diagnosis, Assessment Plan Consultants: anesthesiology, cardiology, cardiovascular surgery Free Text DxA P Notes Free Text DxA P Notes: Mr. Daly is a pleasant 66 y/o male w/ PMHx: CAD s/p PCI, HTN, HLD, T2DM, GERD , temporal arteritis (on prednisone) presented to [facility] for elective PCI. - CAD s/p CABG x 4 (MITCHELL to LAD, SVG to M1, M2, PDA) EF 55 to 60% with grade 1 diastolic dysfunction On atorvastatin, plavix, ASA, amiodarone and Metoprolol. - HTN. BP controlled. On Metoprololol. - HLD. On statins. - Chronic temporal arteritis. - GERD. Per IM. Encourage deep breath, cough, IS. at 0720 [facility] #:[id number] END OF [id number] 05:05:00 [facility]) Cardiothoracic Surgery Prog REPORT#:[id number] REPORT STATUS: Signed DATE:08/05/22 TIME: 050 PATIENT: MARY DALY UNIT #: [id number] ROOM/BED: 220[address] : 53 AGE: 66 SEX: M ATTEND: Anthony Loaiza MD ADM AUTHOR: Rosalind Mendez Physic * ALL edits or amendments must be made on the electronic/computer document * General Post-op: day 3 Status [...] sternal Site condition: dressing clean dry, dressing intact HEENT: mucosal membranes moist Neck: full range of motion, non-tender Cardiovascular: BP/pulses equal bilat., regular rate rhythm Respiratory: aerating well, clear to auscultation Abdomen: soft, non-tender Extremities: dry, moves all Musculoskeletal: full range of motion, painless range of motion Neuro/CERAMIC PAINTER: alert, oriented X 3 Skin: dry, intact Psychiatry: normal affect, normal mood Treatment Prophylaxis Treatment Prophylaxis Drain(s)/tube(s): Drain(s)/tube(s): bertha (x2) Diagnosis, Assessment Plan Free Text A P: This is a 66-year gentleman with past medical history of coronary artery disease status post PCI in the past, with most recent in July 07, 2022, history of temporal arteritis on chronic prednisone since 2017, diverticulitis, gout, hypertension, hyperlipidemia. The patient reports a history of exertional shortness of breath with occasional chest pain over the past several weeks. 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 This revealed multivessel CAD. CV surgery consulted for evaluation for coronary bypass graft. The patient reports a history of diabetes, diet controlled for the past [...] PCI with most recent June 2022, hold Plavix in preparation for surgery. 2. Hypertension 3. Hyperlipidemia 4. Temporal arteritis in 2017 Continues on prednisone 3 mg We will begin work-up for coronary bypass graft surgery. Patient was seen in exam by Dr. Mccurdy. Further recommendations to follow as work-up underway Thank you for this kind consultation 07/29/22 Patient resting comfortable, denies complaint Patient received Plavix 75 mg on 07/28/2022 , will obtain repeat platelet response to Plavix test in the a.m. Respiratory: On room air Cardiac: Remains sinus rhythm Carotid Doppler shows no significant carotid artery stenosis Vein mapping complete Labs reviewed shows WBCs elevated 16 Urinalysis negative Neurology consult for history of temporal arteritis, appreciate input We will repeat platelet response to Plavix. Possibly plan for CABG in the a.m. Patient was seen and examined by 07/30/22 Patient resting comfortable. Denies complaints. Respiratory: On room air 100% Cardiac: Sinus rhythm Last recieved plavix on 07/28/22, Platelet response to PLavix this am= 157 Will plan for surgery next week. Neurology eval underway Patient was seen and examined by Dr. Mccurdy Work-up for coronary artery bypass graft surgery undergoing. Timing of surgery pending 07/31/22 Patient resting comfortable. Denies complaints. Respiratory: On room air 100% Cardiac: Sinus rhythm Patient recieved plavix on 07/28/22, Will repeat platelet response on Tuesday. Will plan for surgery next week Neurology following. Continue steroids for Hx of temporal arteritis. Carotids show no significant dz, CT head complete No flow-limiting stenosis or occlusion along major intracranial arterial vessels. No acute intracranial process nor bony injury UA negative, HGa1c 6.2 Patient was seen and examined by Dr. Mccurdy. Plan repeat platelet response to Plavix in [...] Work-up for coronary artery bypass graft is complete. Plan for surgery tomorrow. Patient was seen and examined by Dr. Mccurdy. Plan of care discussed with team 08/02/22 CABG x 4 (MITCHELL-LAD, SVG-OM1, SVG-OM2, SVG-PDA) ALAA EVH (LGSV) Posterior pericardiotomy 08/03/22 POD 1 Patient hemodynamically stable post operatively CXR and labs reviewed Wean off oxygen as tolerated, currently at 2l nasal cannula Encourage incentive spirometer use and deep breathing Keep chest tubes and monitor outputs Advance diet as tolerated Glycemic control on insulin drip Pain management Monitor strict I Os DVT ppx with SCDs, GI ppx with PPI Monitor patient closely in CVICU Patient seen and examined with Dr. Mccurdy, plan of care discussed with ICU team 08/04/22 POD 2 Patient recovering well, no complaints CXR and labs reviewed On 5 L nasal cannula, encourage I-S use and wean off oxygen Discontinue central line and guardado Discontinue MS chest tube, keep LP and monitor outputs Gentle diuresis with lasix IV 10 x 1, monitor strict I Os Tolerating diet PT/OT Ambulate Monitor patient in CVICU 08/05 POD 3 AAOx3 Respiratory: On 2 L nasal cannula, wean as tolerated, Encourage IS, Deep Breathing, CXR reviewed CT drainage 160, will DC today Cardiac: Remains sinus rhythm, pacing wires on standby GI: + gas, Continue Bowel regimen UO: 620. Continue PT/OT- out of bed walking Labs reveiwed- replace electrolytes as needed Patient seen and examined by Dr. Mccurdy. Plan of care discussed with multidisciplinary team Consultants: anesthesiology, cardiology, cardiovascular surgery at 0834 RPT #:[id number] END OF [id number] 17:28:00 [facility] ([facility]) Critical Care Progress Note REPORT#:[id number] REPORT STATUS: Signed DATE:08/04/22 TIME: 1728 PATIENT: MARY DALY UNIT #: [id number] ROOM/BED: [address] : 53 AGE: 66 SEX: M ATTEND: Anthony Loaiza MD ADM AUTHOR: Shruthi Espinoza MD * ALL edits or amendments must be made on the electronic/computer document * Subjective Chief complaint: Chest pain Exertional dyspnea HPI: Patient seen and discussed during MDR this morning in CVICU room #2207. Patient is postop day 1 after CABG x4. Complains of chest pain, dyspnea this morning. Received ipratropium nebulizer without any relief. Has significant acid reflux symptoms with heartburn and dyspepsia. Patient will be started on IV Protonix 40 mg every 12 hours. His arterial line and Nerstrand Dino catheter will be discontinued. Chest tubes and central venous catheter are going to be retained. Hemoglobin is 8.7 g/dL. Patient is tolerating oral diet. He is ambulating with physical therapy. Latest blood gas shows a pH of 7.39, PCO2 of 39 mmHg, PO2 of 78 mmHg and bicarbonate of 24 mmol with base excess at -0.6. Chest tube output is 200 mL and 190 mL respectively in the last 12-hour shift. Urine output is adequate at 1250 mL in the last 12-hour shift. Urine output dropped to 20 mL/h and responded to albumin infusion. Vital signs are stable with a heart rate of 63, blood pressure 123/48 mmHg and pulse ox 98% on nasal cannula oxygen that is being titrated. On 08/02/2022, patient was brought to the CVICU room #2207 status post CABG x5 and ligation of left atrial appendage, extubated in the OR, on epinephrine at 4 mcg and norepinephrine at 2 mcg. Patient was a grade 1 view easy intubation with 8.0 ET tube. Received rocuronium and etomidate for RSI. EF 55%. PA pressures 24 mmHg and cardiac index 2.2-2.6. Patient received intravenous calcium and magnesium intraoperatively. Had [...] for temporal arteritis since 2017. And received hydrocortisone 100 mg IV x1 dose. He is able to move all 4 extremities and follows commands. Left pleural output is 50 mL and mediastinal output is 35 mL. Patient has bilaterally symmetrical and equal pupils on both sides. He received parasternal block for pain control. Vital signs are stable with a heart rate of 80 sinus rhythm, blood pressure 128 /57 mmHg, pulse ox 96% on facemask and PA pressures 28/12 mmHg. He is awake, interactive, following commands and moving all 4 extremities. Patient is full code. Mary Daly is a 66-year gentleman with past medical history significant for coronary artery disease status post PCI in the past, with most recent in July 07, 2022, history of temporal arteritis on chronic prednisone since 2016, diverticulitis, gout, hypertension, hyperlipidemia. Strong family history of CAD. Has history of diabetes. He presented with exertional shortness of breath with occasional chest pain over the past several weeks. Cardiac work-up and left heart cath revealed multivessel coronary disease. CT surgery was consulted for CABG evaluation and patient underwent surgery on 08/02/2022. Comments: Interval history- Patient is [...] Meds + DC'd Last 24 Hrs Ipratropium Garwood (ATROVENT) 500 MCG RTQ2H PRN PRN INH Cyanocobalamin (Vitamin B-12 500 mcg tab) 500 MCG DAILY PO Ferrous Sulfate (FERROUS SULFATE) 325 MG DAILY PO Potassium Chloride (POTASSIUM CHLORIDE 20MEQ TAB.ER) 20 MEQ ONCE ONE PO (UNV) Bisacodyl (DULCOLAX) 10 MG ONCE PRN RECTAL Magnesium Hydroxide (MILK OF MAGNESIA) 30 ML ONCE PRN PO Furosemide (LASIX 20MG INJ) 10 MG ONCE ONE IV (DC) Potassium Chloride (POTASSIUM CHLORIDE 20MEQ TAB.ER) 40 MEQ ONCE ONE PO (DC) Mupirocin (BACTROBAN 2% 22 GM OINTMENT) 1 APPLIC BID NASAL Atorvastatin Calcium (LIPITOR) 40 MG 2100 PO Clopidogrel Bisulfate (Plavix) 75 MG DAILY PO Polyethylene Glycol (MIRALAX) 17 GM DAILY PO Ipratropium Garwood (ATROVENT) 500 MCG RTQ6H PRN PRN INH Pantoprazole (PROTONIX) 40 MG DAILY@0600 PO Docusate Sodium (COLACE) 100 MG BID PO Gabapentin (NEURONTIN) 200 MG BID PO Metoprolol Tartrate (LOPRESSOR) 12.5 MG Q12HR PO Sennosides (Senna Lax 8.6 MG TABLET) 17.2 MG BEDTIME PO Aspirin (ASPIRIN) 81 MG DAILY PO Ipratropium Garwood (ATROVENT) 500 MCG RTQ4H INH Amiodarone HCl (CORDARONE) 200 MG TID PO Acetaminophen (TYLENOL) 650 MG Q4H PRN PRN PO Acetaminophen (TYLENOL) 650 MG Q4H PRN PRN RECTAL Calcium Chloride (CALCIUM CHLORIDE) 1 GM ASDIR PRN IV Dextrose/Water (DEXTROSE 10% IN WATER) 125 ML ASDIR PRN IV (CKD) Dextrose/Water (DEXTROSE 10% IN WATER) 250 ML ASDIR PRN IV (CKD) Epinephrine (ADRENALIN CHLORIDE) 4 MG ASDIR IV Dextrose/Water (DEXTROSE 5% WATER) 246 ML Glucagon (GLUCAGON) 1 MG ASDIR PRN IM Insulin Human Regular (HumuLIN R) 100 UNIT ASDIR IV (CKD) Sodium Chloride (SODIUM CHLORIDE 0.9%) 99 ML Magnesium Sulfate (MAGNESIUM SULFATE 4GM/SWFI 100ML) 100 ML ASDIR PRN IV Magnesium Sulfate (MAGNESIUM SULFATE 2GM/SWFI 50ML) 50 ML ASDIR PRN IV Magnesium Sulfate/Dextrose (MAGNESIUM SULFATE 1GM/D5W 100ML) 100 ML ASDIR PRN IV Nitroglycerin/Dextrose (NITROGLYCERIN 50,000MCG/D5W 250ML) 250 ML ASDIR IV Norepinephrine Bitartrate (NOREPINEPHRINE 8 MG/NS 250 ML) 250 ML TITRATE IV Ondansetron [...] Sodium Chloride (SODIUM CHLORIDE 0.9%) 250 ML Q24H IV Prednisone (predniSONE) 2 MG C BK PO Post-op: day 1 Status post: CABG times 4 Physical Exam Head/eyes: atraumatic, clear cornea, normocephalic, PERRL ENT: moist mucosal membranes, normal nose, normal sinus Neck: no JVD, no masses or swelling Cardiovascular: normal capillary refill, normal heart sounds, regular rate and rhythm Respiratory: aerating well, clear to auscultation, symmetric expansion, no distress Abdomen: soft, non-tender, no distention, no guarding, no rebound Genitourinary: urinary catheter, no bladder distention Extremities: moves all, no clubbing, no cyanosis, no edema Neuro/CERAMIC PAINTER: no motor deficits Wound/incision: Location: sternal wound Psychiatry: normal affect, normal mood, no hallucinations Results Findings/data: Laboratory Tests 08/04 0254 Blood [...] % (Auto) (14.0 - 32.0 %) 14.8 Brooke % (Auto) (4.8 - 9.0 %) 21.2 H Eos % (Auto) (0.3 - 3.7 %) 0.1 L Baso % (Auto) (0.0 - 2.0 %) 0.1 Neut # (Auto) (2.0 - 7.6 x10 3/uL) 7.68 H Lymph # (Auto) (1.0 - 3.8 x10 3/uL) 1.79 Brooke # (Auto) (0.1 - 0.8 x10 3/uL) 2.56 H Eos # (Auto) (0.0 - 0.2 x10 3/uL) 0.01 Baso # (Auto) (0.0 - 0.2 x10 3/uL) 0.01 Abs Immat Gran (auto) (0.00 - 0.03 x10 3/uL) 0.05 H Add Manual Diff NO Immature Gran % (0.0 - 2.0 %) 0.4 Nucleated RBC % (0 - 0 %) 0.0 Nucleated RBCs # (Man) (0.0 - 0.1 x10 3/uL) 0.00 Platelet Estimate (ADEQUATE THOUSAND) 100-125 Immature Plt [...] MARCELINO Carr, CVICU nurse at 10:00 AM Impression By: Vadim Stanley M.D. Treatment Prophylaxis Treatment Prophylaxis Drain(s)/tube(s): Drain(s)/tube(s): bertha (x2) Diagnosis, Assessment Plan Free text A P: Problem List: Chest pain/Angina Exertional dyspnea Coronary artery disease Status post CABG x5 and ILAA Elective ventilatory dependence for acute pulmonary insufficiency following major cardiothoracic surgery Acute blood loss anemia cardiogenic shock Hyperglycemia Leukocytosis Assessment and Plan: Patient was brought to the CVICU room #2207 status post CABG x5 and ligation of left atrial appendage, extubated in the OR, on epinephrine at 4 mcg and norepinephrine at 2 mcg. Patient was a grade 1 view easy intubation with 8.0 ET tube. Received rocuronium and etomidate for RSI. EF 55%. PA pressures 24 mmHg and cardiac index 2.2-2.6. Patient received intravenous calcium and magnesium intraoperatively. Had [...] for temporal arteritis since 2017. And received hydrocortisone 100 mg IV x1 dose. He is able to move all 4 extremities and follows commands. Left pleural output is 50 mL and mediastinal output is 35 mL. Patient has bilaterally symmetrical and equal pupils on both sides. He received parasternal block for pain control. Vital signs are stable with a heart rate of 80 sinus rhythm, blood pressure 128/ 57 mmHg, pulse ox 96% on facemask and PA pressures 28/12 mmHg. He is awake, interactive, following commands and moving all 4 extremities. Patient is full code. Mary Daly is a 66-year gentleman with past medical history significant for coronary artery disease status post PCI in the past, with most recent in July 07, 2022, history of temporal arteritis on chronic prednisone since 2017, diverticulitis, gout, hypertension, hyperlipidemia. Strong family history of CAD. Has history of diabetes. He presented with exertional shortness of breath with occasional chest pain over the past several weeks. Cardiac work-up and left heart cath revealed multivessel coronary disease. CT surgery was consulted for CABG evaluation and patient underwent surgery on 08/02/2022. Postop day 0 after CABG x5 and ILAA No acute events for reported in the OR Patient was easy intubation and induction using rocuronium and etomidate EF 55% PA pressures 24 mm of Hg Cardiac index 2.2 to 2.6 Patient is currently on epinephrine at 4 mcg and norepinephrine at 2 mcg that is being weaned Blood pressure is stable Patient received 1 L of crystalloid and 720 mL of Cell Saver No autologous transfusion or products were used Had 600 mL of urine output Chest tube output is minimal at 50 mL in the left pleural and 35 mL in the mediastinal chest tubes Patient is able to move all 4 extremities and follow command Pain control with parasternal block Patient will be on oral narcotic regimen for pain control Vital signs are stable with heart rate 80, blood pressure 128/57 mmHg and pulse ox 96% on facemask Follow chest tube output Chest x-ray was personally viewed by me and lines and tubes are in position Patient has been on chronic steroid therapy since 2017, received stress dose steroids with hydrocortisone 100 mg IV Avoid further steroid dosing unless evidence of adrenal crisis SCDs for DVT prophylaxis Sterling Hidalgo MD [facility] 08/02/2022 3.57 PM 08/03/2022 Patient seen and discussed during MDR this morning in CVICU room #2207. Patient is postop day 1 after CABG x4. Complains of chest pain, dyspnea this morning. Received ipratropium nebulizer without any relief. Has significant acid reflux symptoms with heartburn and dyspepsia. Patient will be started on IV Protonix 40 mg every 12 hours. His arterial line and Nerstrand Dino catheter will be discontinued. Chest tubes and central venous catheter are going to be retained. Hemoglobin is 8.7 g/dL. Patient is tolerating oral diet. He is ambulating with physical therapy. Latest blood gas shows a pH of 7.39, PCO2 of 39 mmHg, PO2 of 78 mmHg and bicarbonate of 24 mmol with base excess at -0.6. Chest tube output is 200 mL and 190 mL respectively in the last 12-hour shift. Urine output is adequate at 1250 mL in the last 12-hour shift. Urine output dropped to 20 mL/h and responded to albumin infusion. Vital signs are stable with a heart rate of 63, blood pressure 123/48 mmHg and pulse ox 98% on nasal cannula oxygen that is being titrated. On 08/02/2022, patient was brought to the CVICU room #2207 status post CABG x5 and ligation of left atrial appendage, extubated in the OR, on epinephrine at 4 mcg and norepinephrine at 2 mcg. Patient was a grade 1 view easy intubation with 8.0 ET tube. Received rocuronium and etomidate for RSI. EF 55%. PA pressures 24 mmHg and cardiac index 2.2-2.6. Patient received intravenous calcium and magnesium intraoperatively. Had [...] for temporal arteritis since 2017. And received hydrocortisone 100 mg IV x1 dose. He is able to move all 4 extremities and follows commands. Left pleural output is 50 mL and mediastinal output is 35 mL. Patient has bilaterally symmetrical and equal pupils on both sides. He received parasternal block for pain control. Vital signs are stable with a heart rate of 80 sinus rhythm, blood pressure 128 /57 mmHg, pulse ox 96% on facemask and PA pressures 28/12 mmHg. He is awake, interactive, following commands and moving all 4 extremities. Patient is full code. Mary Daly is a 66-year gentleman with past medical history significant for coronary artery disease status post PCI in the past, with most recent in July 07, 2022, history of temporal arteritis on chronic prednisone since 2017, diverticulitis, gout, hypertension, hyperlipidemia. Strong family history of CAD. Has history of diabetes. He presented with exertional shortness of breath with occasional chest pain over the past several weeks. Cardiac work-up and left heart cath revealed multivessel coronary disease. CT surgery was consulted for CABG evaluation and patient underwent surgery on 08/02/2022. He is postop day 1 after CABG x4 Complains of chest pain and heartburn this more Has significant history of GERD and dyspepsia Patient will be started on Protonix 40 mg IV every 12 hours Tolerating oral diet Ambulating with physical therapy Generous output from the chest tubes at 200 mL and 190 mL respectively Monitor chest tube output Both chest tubes to be retained DC Nerstrand-Anna Marie catheter and arterial line Central venous catheter to be retained Patient is off vasopressors Hemoglobin is 8.7 g/dL down from 9.4 g/dL Reactive leukocytosis improving Urine output is 1250 mL in the last 12-hour shift Urine output declined to 20 mL/h record and responded to albumin infusion Patient is awake, interactive, with no focal neurological deficit SCDs for DVT prophylaxis Sterling Hidalgo MD [facility] 08/03/2022 11.13 AM 08/04/2022 Neurologically at baseline. Pain is well controlled. On 5 L nasal cannula. Wean down as tolerated. ABG and chest x-ray reviewed. We will diurese with 20 IV Lasix. In sinus rhythm maintain the blood pressure. Continue beta-orb and amiodarone. Discontinue mediastinal chest tube. Tolerating diet no bowel movement yet. Continue bowel regimen. Ambulate. PT OT White count improving. No fevers. Continue to monitor. SCDs for DVT prophylaxis. Total critical care time 36 minutes excluding procedures Consultants: anesthesiology, cardiology, cardiovascular surgery at 1528 RPT #:[id number] END OF [id number] 11:30:00 [facility] Cardiothoracic Surgery Prog REPORT#:[id number] REPORT STATUS: Signed DATE:08/04/22 TIME: 1130 PATIENT: MARY DALY UNIT #: [id number] ROOM/BED: 3346-1 : 53 AGE: 66 SEX: M ATTEND: Anthony Loaiza MD ADM AUTHOR: Ludin Mccurdy MD * ALL edits or amendments must be made on the electronic/computer document * General Post-op: day 2 Status [...] set between the solid lines has been imported from the dietitian's assessment. BMI Calculated: 29.0 Nutrition related diagnosis: Nutrition diagnosis details: Nutrition problem: Increased nutrient needs Nutrition etiology: Acute illness Nutrition signs and symptoms: ESTIMATED NEEDS S/P SURGERY Nutrition prescription: 1. CONTINUE CARDIAC DIET. HONOR FOOD PREFERENCES APPROPRIATE WITH DIET ORDER. 2. PROVIDE GLUCERNA TID WITH MEALS. 3. MONITOR PO, WT, LABS, BM 4. HEALTHY HEART DIET EDUCATION PRIOR TO DISCHARGE. Dietitian name: Connie Anders, DIET Assessment completed: 08/03/22 Physical Exam General appearance: alert, awake, oriented Wound/incision: Location: sternal Site condition: dressing clean dry, dressing intact HEENT: mucosal membranes moist Neck: full range of motion, non-tender Cardiovascular: BP/pulses equal bilat., regular rate rhythm Respiratory: aerating well, clear to auscultation Abdomen: soft, non-tender Extremities: dry, moves all Musculoskeletal: full range of motion, painless range of motion Neuro/CERAMIC PAINTER: alert, oriented X 3 Skin: dry, intact Psychiatry: normal affect, normal mood Current Medications Medications: Active Meds + DC'd Last 24 Hrs Ipratropium Garwood (ATROVENT) 500 MCG RTQ2H PRN PRN INH Cyanocobalamin (Vitamin B-12 500 mcg tab) 500 MCG DAILY PO Ferrous Sulfate (FERROUS SULFATE) 325 MG DAILY PO Bisacodyl (DULCOLAX) 10 MG ONCE PRN RECTAL Magnesium Hydroxide (MILK OF MAGNESIA) 30 ML ONCE PRN PO Furosemide (LASIX 20MG INJ) 10 MG ONCE ONE IV (DC) Potassium Chloride (POTASSIUM CHLORIDE 20MEQ TAB.ER) 40 MEQ ONCE ONE PO (DC) Mupirocin (BACTROBAN 2% 22 GM OINTMENT) 1 APPLIC BID NASAL Atorvastatin Calcium (LIPITOR) 40 MG 2100 PO Clopidogrel Bisulfate (Plavix) 75 MG DAILY PO Polyethylene Glycol (MIRALAX) 17 GM DAILY PO Ipratropium Garwood (ATROVENT) 500 MCG RTQ6H PRN PRN INH Pantoprazole (PROTONIX) 40 MG DAILY@0600 PO Docusate Sodium (COLACE) 100 MG BID PO Gabapentin (NEURONTIN) 200 MG BID PO Metoprolol Tartrate (LOPRESSOR) 12.5 MG Q12HR PO Sennosides (Senna Lax 8.6 MG TABLET) 17.2 MG BEDTIME PO Aspirin (ASPIRIN) 81 MG DAILY PO Ipratropium Garwood (ATROVENT) 500 MCG RTQ4H INH Amiodarone HCl (CORDARONE) 200 MG TID PO Acetaminophen (TYLENOL) 650 MG Q4H PRN PRN PO Acetaminophen (TYLENOL) 650 MG Q4H PRN PRN RECTAL Albumin Human (ALBUMINAR 25%) 25 GM ASDIR PRN IV (DC) Calcium Chloride (CALCIUM CHLORIDE) 1 GM ASDIR PRN IV Dextrose/Water (DEXTROSE 10% IN WATER) 125 ML ASDIR PRN IV (CKD) Dextrose/Water (DEXTROSE 10% IN WATER) 250 ML ASDIR PRN IV (CKD) Epinephrine (ADRENALIN CHLORIDE) 4 MG ASDIR IV Dextrose/Water (DEXTROSE 5% WATER) 246 ML Glucagon (GLUCAGON) 1 MG ASDIR PRN IM Insulin Human Regular (HumuLIN R) 100 UNIT ASDIR IV (CKD) Sodium Chloride (SODIUM CHLORIDE 0.9%) 99 ML Magnesium Sulfate (MAGNESIUM SULFATE 4GM/SWFI 100ML) 100 ML ASDIR PRN IV Magnesium Sulfate (MAGNESIUM SULFATE 2GM/SWFI 50ML) 50 ML ASDIR PRN IV Magnesium Sulfate/Dextrose (MAGNESIUM SULFATE 1GM/D5W 100ML) 100 ML ASDIR PRN IV Nitroglycerin/Dextrose (NITROGLYCERIN 50,000MCG/D5W 250ML) 250 ML ASDIR IV Norepinephrine Bitartrate (NOREPINEPHRINE 8 MG/NS 250 ML) 250 ML TITRATE IV Ondansetron [...] Sodium Chloride (SODIUM CHLORIDE 0.9%) 250 ML Q24H IV Prednisone (predniSONE) 2 MG C BK [...] % (Auto) (14.0 - 32.0 %) 14.8 Brooke % (Auto) (4.8 - 9.0 %) 21.2 H Eos % (Auto) (0.3 - 3.7 %) 0.1 L Baso % (Auto) (0.0 - 2.0 %) 0.1 Neut # (Auto) (2.0 - 7.6 x10 3/uL) 7.68 H Lymph # (Auto) (1.0 - 3.8 x10 3/uL) 1.79 Brooke # (Auto) (0.1 - 0.8 x10 3/uL) 2.56 H Eos # (Auto) (0.0 - 0.2 x10 3/uL) 0.01 Baso # (Auto) (0.0 - 0.2 x10 3/uL) 0.01 Abs Immat Gran (auto) (0.00 - 0.03 x10 3/uL) 0.05 H Add Manual Diff NO Immature Gran % (0.0 - 2.0 %) 0.4 Nucleated RBC % (0 - 0 %) 0.0 Nucleated RBCs # (Man) (0.0 - 0.1 x10 3/uL) 0.00 Platelet Estimate (ADEQUATE THOUSAND) 100-125 Immature Plt Fraction (0.9 - 11.2 %) 7.3 Radiology data: Recent Impressions: RADIOLOGY - XR CHEST 1 V 08/04 0540 Report Impression - Status: SIGNED Entered: 08/04/2022 1003 IMPRESSION: 1. Small left-sided 10% pneumothorax with a chest tube in place. 2. Findings were called to MARCELINO Carr, CVICU nurse at 10:00 AM Impression By: Vadim Stanley M.D. Results: labs reviewed, vital signs stable, rythm personally rev'd, x-ray personally reviewed, current med profile rev'd Diagnosis, Assessment Plan Free Text A P: This is a 66-year gentleman with past medical history of coronary artery disease status post PCI in the past, with most recent in July 07, 2022, history of temporal arteritis on chronic prednisone since 2016, diverticulitis, gout, hypertension, hyperlipidemia. The patient reports a history of exertional shortness of breath with occasional chest pain over the past several weeks. 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 This revealed multivessel CAD. CV surgery consulted for evaluation for coronary bypass graft. The patient reports a history of diabetes, diet controlled for the past [...] PCI with most recent June 2022, hold Plavix in preparation for surgery. 2. Hypertension 3. Hyperlipidemia 4. Temporal arteritis in 2017 Continues on prednisone 3 mg We will begin work-up for coronary bypass graft surgery. Patient was seen in exam by Dr. Mccurdy. Further recommendations to follow as work-up underway Thank you for this kind consultation 07/29/22 Patient resting comfortable, denies complaint Patient received Plavix 75 mg on 07/28/2022 , will obtain repeat platelet response to Plavix test in the a.m. Respiratory: On room air Cardiac: Remains sinus rhythm Carotid Doppler shows no significant carotid artery stenosis Vein mapping complete Labs reviewed shows WBCs elevated 16 Urinalysis negative Neurology consult for history of temporal arteritis, appreciate input We will repeat platelet response to Plavix. Possibly plan for CABG in the a.m. Patient was seen and examined by 07/30/22 Patient resting comfortable. Denies complaints. Respiratory: On room air 100% Cardiac: Sinus rhythm Last recieved plavix on 07/28/22, Platelet response to PLavix this am= 157 Will plan for surgery next week. Neurology eval underway Patient was seen and examined by Dr. Mccurdy Work-up for coronary artery bypass graft surgery undergoing. Timing of surgery pending 07/31/22 Patient resting comfortable. Denies complaints. Respiratory: On room air 100% Cardiac: Sinus rhythm Patient recieved plavix on 07/28/22, Will repeat platelet response on Tuesday. Will plan for surgery next week Neurology following. Continue steroids for Hx of temporal arteritis. Carotids show no significant dz, CT head complete No flow-limiting stenosis or occlusion along major intracranial arterial vessels. No acute intracranial process nor bony injury UA negative, HGa1c 6.2 Patient was seen and examined by Dr. Mccurdy. Plan repeat platelet response to Plavix in [...] Work-up for coronary artery bypass graft is complete. Plan for surgery tomorrow. Patient was seen and examined by Dr. Mccurdy. Plan of care discussed with team 08/02/22 CABG x 4 (MITCHELL-LAD, SVG-OM1, SVG-OM2, SVG-PDA) ALAA EVH (LGSV) Posterior pericardiotomy 08/03/22 POD 1 Patient hemodynamically stable post operatively CXR and labs reviewed Wean off oxygen as tolerated, currently at 2l nasal cannula Encourage incentive spirometer use and deep breathing Keep chest tubes and monitor outputs Advance diet as tolerated Glycemic control on insulin drip Pain management Monitor strict I Os DVT ppx with SCDs, GI ppx with PPI Monitor patient closely in CVICU Patient seen and examined with Dr. Mccurdy, plan of care discussed with ICU team 08/04/22 POD 2 Patient recovering well, no complaints CXR and labs reviewed On 5 L nasal cannula, encourage I-S use and wean off oxygen Discontinue central line and guardado Discontinue MS chest tube, keep LP and monitor outputs Gentle diuresis with lasix IV 10 x 1, monitor strict I Os Tolerating diet PT/OT Ambulate Monitor patient in CVICU Consultants: anesthesiology, cardiology, cardiovascular surgery at 1550 RPT #:[id number] END OF [id number] 09:06:00 [facility] ([facility]) Hospitalist Progress Note REPORT#:[id number] REPORT STATUS: Signed DATE:08/04/22 TIME: 905 PATIENT: MARY DALY UNIT #: [id number] ROOM/BED: [place] [address] : 53 AGE: 66 SEX: M ATTEND: Anthony Loaiza MD ADM AUTHOR: Luther Martin ANESTHESIOLOGIST * ALL edits or amendments must be made on the electronic/computer document * Luther Martin 08/04/22 0906: Subjective Chief complaint: He is stable, Breathing is improved. He is on nasal cannula. Chest tube x 2 noted. His CP is improved. No fever, chills. NO N/v/d. Review of Systems Constitutional: Reports: fatigue, generalized weakness. Allergy/Immun: Denies: anaphylaxis, rhinorrhea. Respiratory: Denies: hemoptysis, parox nocturnal dyspnea, pleurisy, pleuritic pain, pneumonia , productive cough (sputum). Cardiovascular: Denies: chest pain, PETERSEN (dyspnea on exertion), orthopnea, palpitations. GI: Denies: anorexia, diarrhea, hiatal hernia, rectal pain. : Denies: flank pain, nocturia, penile lesion, testicular swelling. Musculoskeletal: Denies: extremity pain, joint pain, myalgias, thoracic pain. Endocrine: Denies: cold intolerance, polyphagia, weight gain, weight loss. Objective General VS/I O: Vital Signs: Date Time Temp Pulse Resp B/P B/P Pulse O2 O2 Flow FiO2 Mean Ox Delivery Rate 08/04 814 37.8 76 28 94/84 90 96 08/04 0800 Nasal 5 cannula 06/14 0800 145/57 81 06/14 0800 37.7 79 [...] 2100 38.3 78 24 147/51 74 91 06/13 2030 38.3 77 21 142/51 72 94 06/13 1999 Nasal 3 cannula 06/ 2000 111/53 76 06/13 2000 38.3 79 30 144/51 73 92 06/13 1940 92 Nasal 3 cannula 06/13 1930 38.3 78 34 160/57 81 93 06/13 1900 121/58 82 06/13 1900 38.2 79 31 125/41 61 91 06/13 1806 37.9 78 32 91 06/13 1800 37.8 80 35 116/58 83 91 06/13 1700 107/59 80 08/03 1700 37.6 72 [...] Meds + DC'd Last 24 Hrs Ipratropium Garwood (ATROVENT) 500 MCG RTQ2H PRN PRN INH Cyanocobalamin (Vitamin B-12 500 mcg tab) 500 MCG DAILY PO Ferrous Sulfate (FERROUS SULFATE) 325 MG DAILY PO Bisacodyl (DULCOLAX) 10 MG ONCE PRN RECTAL Magnesium Hydroxide (MILK OF MAGNESIA) 30 ML ONCE PRN PO Mupirocin (BACTROBAN 2% 22 GM OINTMENT) 1 APPLIC BID NASAL Atorvastatin Calcium (LIPITOR) 40 MG 2100 PO Clopidogrel Bisulfate (Plavix) 75 MG DAILY PO Polyethylene Glycol (MIRALAX) 17 GM DAILY PO Ipratropium Garwood (ATROVENT) 500 MCG RTQ6H PRN PRN INH Pantoprazole (PROTONIX) 40 MG DAILY@0600 PO Docusate Sodium (COLACE) 100 MG BID PO Gabapentin (NEURONTIN) 200 MG BID PO Metoprolol Tartrate (LOPRESSOR) 12.5 MG Q12HR PO Sennosides (Senna Lax 8.6 MG TABLET) 17.2 MG BEDTIME PO Aspirin (ASPIRIN) 81 MG DAILY PO Ipratropium Garwood (ATROVENT) 500 MCG RTQ4H INH Amiodarone HCl (CORDARONE) 200 MG TID PO Acetaminophen (TYLENOL) 650 MG Q4H PRN PRN PO Acetaminophen (TYLENOL) 650 MG Q4H PRN PRN RECTAL Albumin Human (ALBUMINAR 25%) 25 GM ASDIR PRN IV (DC) Calcium Chloride (CALCIUM CHLORIDE) 1 GM ASDIR PRN IV Cefazolin Sodium (KEFZOL OR ANCEF) 6 GM ONCE ONE IV (DC) Sodium Chloride (SODIUM CHLORIDE 0.9%) 500 ML Dextrose/Water (DEXTROSE 10% IN WATER) 125 ML ASDIR PRN IV (CKD) Dextrose/Water (DEXTROSE 10% IN WATER) 250 ML ASDIR PRN IV (CKD) Epinephrine (ADRENALIN CHLORIDE) 4 MG ASDIR IV Dextrose/Water (DEXTROSE 5% WATER) 246 ML Glucagon (GLUCAGON) 1 MG ASDIR PRN IM Insulin Human Regular (HumuLIN R) 100 UNIT ASDIR IV (CKD) Sodium Chloride (SODIUM CHLORIDE 0.9%) 99 ML Magnesium Sulfate (MAGNESIUM SULFATE 4GM/SWFI 100ML) 100 ML ASDIR PRN IV Magnesium Sulfate (MAGNESIUM SULFATE 2GM/SWFI 50ML) 50 ML ASDIR PRN IV Magnesium Sulfate/Dextrose (MAGNESIUM SULFATE 1GM/D5W 100ML) 100 ML ASDIR PRN IV Nitroglycerin/Dextrose (NITROGLYCERIN 50,000MCG/D5W 250ML) 250 ML ASDIR IV Norepinephrine Bitartrate (NOREPINEPHRINE 8 MG/NS 250 ML) 250 ML TITRATE IV Ondansetron [...] Sodium Chloride (SODIUM CHLORIDE 0.9%) 250 ML Q24H IV Prednisone (predniSONE) 2 MG C BK PO Dietitian nutrition assessment The data set between the solid lines has been imported from the dietitian's assessment. BMI Calculated: 29.0 Nutrition related diagnosis: Nutrition diagnosis details: Nutrition problem: Increased nutrient needs Nutrition etiology: Acute illness Nutrition signs and symptoms: ESTIMATED NEEDS S/P SURGERY Nutrition prescription: 1. CONTINUE CARDIAC DIET. HONOR FOOD PREFERENCES APPROPRIATE WITH DIET ORDER. 2. PROVIDE GLUCERNA TID WITH MEALS. 3. MONITOR PO, WT, LABS, BM 4. HEALTHY HEART DIET EDUCATION PRIOR TO DISCHARGE. Dietitian name: Connie Anders, DIET Assessment completed: 08/03/22 Physical Exam General appearance: alert, awake, oriented Head/Eyes: atraumatic, normocephalic, PERRLA Cardiovascular: normal capillary refill, normal heart sounds, regular rate rhythm Respiratory: aerating well, symmetric expansion, no distress Abdomen: non-tender, normal bowel sounds, soft Genitourinary: no bladder distention, no flank pain, no urinary catheter Extremities: no calf tenderness, no clubbing, no cyanosis Musculoskeletal: no CVA tenderness, no muscle spasm Neuro/CERAMIC PAINTER: alert, oriented X 3, CNII-XII intact Skin: [...] % (Auto) (14.0 - 32.0 %) 14.8 Brooke % (Auto) (4.8 - 9.0 %) 21.2 H Eos % (Auto) (0.3 - 3.7 %) 0.1 L Baso % (Auto) (0.0 - 2.0 %) 0.1 Neut # (Auto) (2.0 - 7.6 x10 3/uL) 7.68 H Lymph # (Auto) (1.0 - 3.8 x10 3/uL) 1.79 Brooke # (Auto) (0.1 - 0.8 x10 3/uL) 2.56 H Eos # (Auto) (0.0 - 0.2 x10 3/uL) 0.01 Baso # (Auto) (0.0 - 0.2 x10 3/uL) 0.01 Abs Immat Gran (auto) (0.00 - 0.03 x10 3/uL) 0.05 H Add Manual Diff NO Immature Gran % (0.0 - 2.0 %) 0.4 Nucleated RBC % (0 - 0 %) 0.0 Nucleated RBCs # (Man) (0.0 - 0.1 x10 3/uL) 0.00 Platelet Estimate (ADEQUATE THOUSAND) 100-125 Immature Plt Fraction (0.9 - 11.2 %) 7.3 Results: labs reviewed, vital signs reviewed, vital signs stable, current med profile rev'd Treatment Prophylaxis Treatment Prophylaxis Oxygen: room air Diagnosis, Assessment Plan Consultants: anesthesiology, cardiology, cardiovascular surgery Code status: full code Plan discussed with: patient, admitting physician, consultants, nurse Free Text DxA P Notes Free text DxA P notes: Assessment and Plan: - Multivessel CAD. - CP due to CAD. - Hypomagnesemia. - HX of HTN/HLD and CAD. - S/P CABG x 4 (MITCHELL to LAD, saphenous vein to first marginal, saphenous vein to second marginal, saphenous vein to PDA, Amputation of left [...] with and documented by Luther Montiel NP at 0909 at 1728 RPT #:[id number] END OF [id number] 08:45:00 [facility] Cardiology Progress Note REPORT#:[id number] REPORT STATUS: Signed DATE:08/04/22 TIME: 844 PATIENT: MARY DALY UNIT #: [id number] ROOM/BED: [place] [address] : 53 AGE: 66 SEX: M ATTEND: Anthony Loaiza MD ADM AUTHOR: Harper Rae NP * ALL edits or amendments must be made on the electronic/computer document * Subjective Chief complaint: Shortness of breath Patient reports: Yes: shortness of breath. No: chest pain, dizziness, palpitations. Nursing reports: No: complaints. Comments: Patient is on 3 L nasal cannula, sitting in chair. Chest tube x2. He complains shortness of [...] O2 Flow FiO2 Mean Ox Delivery Rate 06/14 1100 133/48 69 06/14 1100 100.0 [...] 0100 100.9 77 28 126/46 68 96 06/14 0030 100.9 74 21 134/48 69 99 06/14 0000 108/58 80 06/14 0000 101.1 77 26 137/47 68 97 06/13 2330 101.1 81 32 152/53 77 95 06/13 2307 104/58 76 06/13 2307 101.1 82 38 147/53 77 89 06/13 2300 101.1 77 23 150/54 77 93 06/13 2230 101.1 78 23 145/52 74 93 06/13 2200 123/60 85 06/13 2200 101.1 78 25 147/53 76 93 06/13 2130 100.9 76 28 145/52 75 92 06/13 2100 110/55 77 06/13 2100 100.9 78 24 147/51 74 91 08/03 2030 100.9 77 21 142/51 72 94 08/04 1999 Nasal 3 cannula 08/04 1999 111/53 76 08/04 1999 100.9 79 30 144/51 73 92 08/03 1940 92 Nasal 3 cannula 08/03 1930 100.9 78 34 160/57 81 93 08/03 1900 121/58 82 08/03 1900 100.8 79 31 125/41 61 91 08/03 1806 100.2 78 32 91 08/03 1800 100.0 80 35 116/58 83 91 08/03 1700 107/59 80 / 1700 99.7 72 24 140/54 75 93 08/03 1600 106/60 78 08/03 1600 99.1 67 28 143/55 79 94 08/03 1500 110/59 79 08/03 1500 99.0 64 22 135/52 73 95 PATIENT WEIGHT: Weight (lb): 201 Weight (oz): 15.09 Weight (kg): 91.600 Status post: 07/27 LHC 08/02 CABG x 4. Physical Exam General appearance: alert, awake, oriented, no acute distress, pleasant, conversational, mental status normal, no respiratory distress Head/Eyes: atraumatic, PERRL ENT: moist mucosal membranes Neck: full range of motion, no JVD Cardiovascular: CV assessment: regular rate and rhythm, no murmur Respiratory: decreased breath sounds, no distress Abdomen: soft, non-tender, normal bowel sounds, no distention, no guarding Genitourinary: no flank pain, no urinary catheter Upper extremity: UE assessment: normal temperature, no edema Lower extremity: LE assessment: edema, normal temperature Neuro/CERAMIC PAINTER: alert, oriented X 3, normal speech Skin: [...] % (Auto) (14.0 - 32.0 %) 14.8 Brooke % (Auto) (4.8 - 9.0 %) 21.2 H Eos % (Auto) (0.3 - 3.7 %) 0.1 L Baso % (Auto) (0.0 - 2.0 %) 0.1 Neut # (Auto) (2.0 - 7.6 x10 3/uL) 7.68 H Lymph # (Auto) (1.0 - 3.8 x10 3/uL) 1.79 Brooke # (Auto) (0.1 - 0.8 x10 3/uL) 2.56 H Eos # (Auto) (0.0 - 0.2 x10 3/uL) 0.01 Baso # (Auto) (0.0 - 0.2 x10 3/uL) 0.01 Abs Immat Gran (auto) (0.00 - 0.03 x10 3/uL) 0.05 H Add Manual Diff NO Immature Gran % (0.0 - 2.0 %) 0.4 Nucleated RBC % (0 - 0 %) 0.0 Nucleated RBCs # (Man) (0.0 - 0.1 x10 3/uL) 0.00 Platelet Estimate (ADEQUATE THOUSAND) 100-125 Immature Plt Fraction (0.9 - 11.2 %) 7.3 Laboratory Tests 08/04 0250 Chemistry Magnesium (1.80 - 2.40 mg/dL) 2.13 Radiology data: Recent Impressions: RADIOLOGY - XR CHEST 1 V 08/04 0540 Report Impression - Status: SIGNED Entered: 08/04/2022 1003 IMPRESSION: 1. Small left-sided 10% pneumothorax with a chest tube in place. 2. Findings were called to Lilly, RN, CVICU nurse at 10:00 AM Impression By: Vadim Stanley M.D. Results: labs reviewed, vital signs reviewed, vital signs stable, rhythm personally rev'd, x-ray personally reviewed, current med profile rev'd Telemetry Interpretation: nsr Treatment Prophylaxis Treatment Prophylaxis Drain(s)/tube(s): Drain(s)/tube(s): bertha (x2) Diagnosis, Assessment Plan Consultants: anesthesiology, cardiology, cardiovascular surgery Plan discussed with: patient, nurse Free Text DxA P Notes Free Text DxA P Notes: Mr. Daly is a pleasant 66 y/o male w/ PMHx: CAD s/p PCI, HTN, HLD, T2DM, GERD , temporal arteritis (on prednisone) presented to [facility] for elective PCI. - CAD s/p CABG x 4 (MITCHELL to LAD, SVG to M1, M2, PDA) EF 55 to 60% with grade 1 diastolic dysfunction On atorvastatin, plavix, ASA, amiodarone and Metoprolol. - HTN. BP controlled. On Metoprololol. - HLD. On statins. - Chronic temporal arteritis. - GERD. Per IM. Encourage deep breath, cough, IS. MDM per Dr. Chaparro. at 1437 at 1717 [facility] #:[id number] END OF [id number] 04:45:[id number] [place] [id number] PATIENT NAME: MARY DALY ADMIT DATE: 07/30/22 ACCOUNT NO: [id number] ROOM NO: G.220 AGE: 66 REPORT TYPE: eELECTROCARDIOGRAM REPORT SEX: M ADMITTING PHYSICIAN:Anthony Loaiza MD ATTENDING PHYSICIAN:Anthony Loaiza MD Order: [id number] Test Reason : P/S CABG Test Date/Time Stamp: TueAug 04 2022 04:45:21 Blood Pressure : / mmHG Vent. Rate : 084 BPM Atrial Rate : 084 BPM P-R Int : 122 ms QRS Dur : 088 ms QT Int : 392 ms P-R-T Axes : 066 051 052 degrees QTc Int : 463 ms Sinus rhythm with marked sinus arrhythmia Nonspecific T wave abnormality Prolonged QT Abnormal ECG When compared with ECG of 03-AUG-2022 06:05, No significant change was found Confirmed by MD CHAPARRO GERARD ([id number]) on 08/04/2022 1:26:52 PM Referred By: Anthony Loaiza Confirmed by:DENTON CHAPARRO MD at 1326 PATIENT NAME: MARY DALY 16:03:00 [facility] Cardiothoracic Surgery Prog REPORT#:[id number] REPORT STATUS: Signed DATE:08/03/22 TIME: 1603 PATIENT: MARY DALY UNIT #: [id number] ROOM/BED: [place] [address] : 53 AGE: 66 SEX: M ATTEND: Anthony Loaiza MD ADM AUTHOR: Rosalind Mendez Physic * ALL edits or amendments must be made on the electronic/computer document * General Post-op: day 1 Status [...] set between the solid lines has been imported from the dietitian's assessment. BMI Calculated: 28.8 Nutrition related diagnosis: Nutrition diagnosis details: Nutrition problem: Increased nutrient needs Nutrition etiology: Acute illness Nutrition signs and symptoms: ESTIMATED NEEDS S/P SURGERY Nutrition prescription: 1. CONTINUE CARDIAC DIET. HONOR FOOD PREFERENCES APPROPRIATE WITH DIET ORDER. 2. PROVIDE GLUCERNA TID WITH MEALS. 3. MONITOR PO, WT, LABS, BM 4. HEALTHY HEART DIET EDUCATION PRIOR TO DISCHARGE. Dietitian name: Connie Anders, DIET Assessment completed: 08/03/22 Physical Exam General appearance: alert, awake, oriented Wound/incision: Location: sternal Site condition: dressing clean dry, dressing intact HEENT: mucosal membranes moist Neck: full range of motion, non-tender Cardiovascular: BP/pulses equal bilat., regular rate rhythm Respiratory: aerating well, clear to auscultation Abdomen: soft, non-tender Extremities: dry, moves all Musculoskeletal: full range of motion, painless range of motion Neuro/CERAMIC PAINTER: alert, oriented X 3 Skin: dry, intact Psychiatry: normal affect, normal mood Current Medications Medications: Active Meds + DC'd Last 24 Hrs Ipratropium [place]wood (ATROVENT) 500 MCG RTQ2H PRN PRN INH Cyanocobalamin (Vitamin B-12 500 mcg tab) 500 MCG DAILY PO Ferrous Sulfate (FERROUS SULFATE) 325 MG DAILY PO Bisacodyl (DULCOLAX) 10 MG ONCE PRN RECTAL Magnesium Hydroxide (MILK OF MAGNESIA) 30 ML ONCE PRN PO Atorvastatin Calcium (LIPITOR) 40 MG 2100 PO Clopidogrel Bisulfate (Plavix) 75 MG DAILY PO Polyethylene Glycol (MIRALAX) 17 GM DAILY PO Ipratropium [place]wood (ATROVENT) 500 MCG RTQ6H PRN PRN INH Pantoprazole (PROTONIX) 40 MG DAILY@0600 PO Docusate Sodium (COLACE) 100 MG BID PO Gabapentin (NEURONTIN) 200 MG BID PO Metoprolol Tartrate (LOPRESSOR) 12.5 MG Q12HR PO Sennosides (Senna Lax 8.6 MG TABLET) 17.2 MG BEDTIME PO Aspirin (ASPIRIN) 81 MG DAILY PO Ipratropium [place]wood (ATROVENT) 500 MCG RTQ4H INH Amiodarone HCl (CORDARONE) 200 MG TID PO Acetaminophen (TYLENOL) 650 MG Q4H PRN PRN PO Acetaminophen (TYLENOL) 650 MG Q4H PRN PRN RECTAL Albumin Human (ALBUMINAR 25%) 25 GM ASDIR PRN IV (DC) Calcium Chloride (CALCIUM CHLORIDE) 1 GM ASDIR PRN IV Cefazolin Sodium (KEFZOL OR ANCEF) 6 GM ONCE ONE IV (DC) Sodium Chloride (SODIUM CHLORIDE 0.9%) 500 ML Dextrose/Water (DEXTROSE 10% IN WATER) 125 ML ASDIR PRN IV (CKD) Dextrose/Water (DEXTROSE 10% IN WATER) 250 ML ASDIR PRN IV (CKD) Epinephrine (ADRENALIN CHLORIDE) 4 MG ASDIR IV Dextrose/Water (DEXTROSE 5% WATER) 246 ML Glucagon (GLUCAGON) 1 MG ASDIR PRN IM Insulin Human Regular (HumuLIN R) 100 UNIT ASDIR IV (CKD) Sodium Chloride (SODIUM CHLORIDE 0.9%) 99 ML Magnesium Sulfate (MAGNESIUM SULFATE 4GM/SWFI 100ML) 100 ML ASDIR PRN IV Magnesium Sulfate (MAGNESIUM SULFATE 2GM/SWFI 50ML) 50 ML ASDIR PRN IV Magnesium Sulfate/Dextrose (MAGNESIUM SULFATE 1GM/D5W 100ML) 100 ML ASDIR PRN IV Nitroglycerin/Dextrose (NITROGLYCERIN 50,000MCG/D5W 250ML) 250 ML ASDIR IV Norepinephrine Bitartrate (NOREPINEPHRINE 8 MG/NS 250 ML) 250 ML TITRATE IV Ondansetron [...] Sodium Chloride (SODIUM CHLORIDE 0.9%) 250 ML Q24H IV Hydrocortisone Sodium Succinate (Solu-CORTEF) 100 MG PREOP ONCALL IV (DC ) Acetaminophen (TYLENOL EXTRA STRENGTH) 1,000 MG PREOP ONCALL PO (DC) Cefazolin Sodium (KEFZOL OR ANCEF) 2 GM PREOP ONCALL IV (DC) Gabapentin (NEURONTIN) 200 MG PREOP ONCALL PO (DC) Sodium Chloride (SODIUM CHLORIDE) 20 ML ASDIR IV (DC) Vancomycin HCl (VANCOMYCIN HCL) 1,250 MG PREOP ONCALL IV (DC) Sodium Chloride (SODIUM CHLORIDE 0.9%) 250 ML Verapamil HCl (ISOPTIN) 16.6 MG .Q24H ONE IV (DC) Heparin Sodium (Porcine) (HEPARIN SODIUM) 1,660 UNIT Sodium Bicarbonate (SODIUM BICARBONATE) 0.7 ML Nitroglycerin/Dextrose (NITROGLYCERIN 50MG/D5W 250ML) 8.3 MG Lactated Ringer's (LACTATED RINGERS) 949.5 ML Nebivolol (BYSTOLIC) 10 MG BEDTIME PO (DC) Nitroglycerin/Dextrose (NITROGLYCERIN 50,000MCG/D5W 250ML) 250 ML ASDIR IV (DC) Heparin Sodium (HEPARIN 5000 UNITS/ML) 0 ASDIR PRN IV (DC) Heparin Sodium (Porcine) (HEPARIN 25,000 UNITS/ 1/2NS 500ML) 500 ML ASDIR IV (DC) Mupirocin (BACTROBAN 2% 22 GM OINTMENT) 1 APPLIC BID NASAL (DC) Carboxymethylcellulose Sodium (REFRESH TEARS) 1 DROP QID PRN EACH EYE ( DC) Ranolazine (RANEXA 500MG TAB) 500 MG Q12HR PO (DC) Al Hydrox/Mg Hydrox/Simethicone (MYLANTA) 30 ML Q4H PRN PRN PO (DC) Hydralazine HCl (APRESOLINE) 50 MG Q6H PRN PRN PO (DC) Amlodipine Besylate (NORVASC) 10 MG DAILY PO (DC) Famotidine (PEPCID) 20 MG DAILY PO (DC) Losartan Potassium (COZAAR) 50 MG DAILY PO (DC) Prednisone (predniSONE) 2 MG C BK PO Prednisone (predniSONE) 1 MG BEDTIME PO (DC) Acetaminophen (TYLENOL EXTRA STRENGTH) 500 MG Q4H PRN PRN PO (DC) Atropine Sulfate (ATROPINE SULFATE 0.1MG/ML SYR) 0.5 MG ASDIR PRN IV (DC ) Sodium Chloride (SODIUM CHLORIDE 0.9%) 500 ML ASDIR PRN IV (DC) Results Findings/Data: Laboratory Tests 08/03 08/03 08/03 08/02 0701 0406 0222 3 Blood Gas Puncture Site Art Line [place] Art Line Art Line O2 Saturation (90 - 100 %) 96.1 [...] 98.2 O2 Delivery Device Cannula Cannula Cannula Cannula 08/02 1948 Blood Gas Puncture Site [place] ABG Hematocrit (37.5 - 50.7 [...] - 5.0 g/dL) 3.60 08/027 7 5 4 1949 Chemistry Sodium (134 - 147 mEq/L) [...] (70 - 110 MG/DL) 109 Laboratory Tests 08/03 08/02 0230 2047 Hematology WBC (4.5 - 11.0 x10 [...] - 32.0 %) 7.6 L 3.4 L Brooke % (Auto) (4.8 - 9.0 %) 17.9 H 15.9 H Eos % (Auto) (0.3 - 3.7 %) 0.0 L 0.0 L Baso % (Auto) (0.0 - 2.0 %) 0.1 0.1 Neut # (Auto) (2.0 - 7.6 x10 3/uL) 9.38 H 11.24 H Lymph # (Auto) (1.0 - 3.8 x10 3/uL) 0.96 L 0.48 L Brooke # (Auto) (0.1 - 0.8 x10 3/uL) 2.27 H 2.23 H Eos # (Auto) (0.0 - 0.2 x10 3/uL) 0.00 0.00 Baso # (Auto) (0.0 - 0.2 x10 3/uL) 0.01 0.01 Abs Immat Gran (auto) (0.00 - 0.03 x10 3/uL) 0.06 H 0.06 H Add Manual Diff NO NO Immature Gran % (0.0 - 2.0 %) 0.5 0.4 Nucleated RBC % (0 - 0 %) 0.0 0.0 Nucleated RBCs # (Man) (0.0 - 0.1 x10 3/uL) 0.00 0.00 Radiology data: Recent Impressions: RADIOLOGY - XR CHEST 1 V 08/03 0637 Report Impression - Status: SIGNED Entered: 08/03/2022 0800 IMPRESSION: Mild worsening left basilar opacities. Impression By: [email or web address] - Allan Diana M.D. Results: labs reviewed, vital signs stable, rythm personally rev'd, x-ray personally reviewed, current med profile rev'd Diagnosis, Assessment Plan Free Text A P: This is a 66-year gentleman with past medical history of coronary artery disease status post PCI in the past, with most recent in July 07, 2022, history of temporal arteritis on chronic prednisone since 2016, diverticulitis, gout, hypertension, hyperlipidemia. The patient reports a history of exertional shortness of breath with occasional chest pain over the past several weeks. 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 This revealed multivessel CAD. CV surgery consulted for evaluation for coronary bypass graft. The patient reports a history of diabetes, diet controlled for the past [...] PCI with most recent June 2022, hold Plavix in preparation for surgery. 2. Hypertension 3. Hyperlipidemia 4. Temporal arteritis in 2017 Continues on prednisone 3 mg We will begin work-up for coronary bypass graft surgery. Patient was seen in exam by Dr. Mccurdy. Further recommendations to follow as work-up underway Thank you for this kind consultation 07/29/22 Patient resting comfortable, denies complaint Patient received Plavix 75 mg on 07/28/2022 , will obtain repeat platelet response to Plavix test in the a.m. Respiratory: On room air Cardiac: Remains sinus rhythm Carotid Doppler shows no significant carotid artery stenosis Vein mapping complete Labs reviewed shows WBCs elevated 16 Urinalysis negative Neurology consult for history of temporal arteritis, appreciate input We will repeat platelet response to Plavix. Possibly plan for CABG in the a.m. Patient was seen and examined by 07/30/22 Patient resting comfortable. Denies complaints. Respiratory: On room air 100% Cardiac: Sinus rhythm Last recieved plavix on 07/28/22, Platelet response to PLavix this am= 157 Will plan for surgery next week. Neurology eval underway Patient was seen and examined by Dr. Mccurdy Work-up for coronary artery bypass graft surgery undergoing. Timing of surgery pending 07/31/22 Patient resting comfortable. Denies complaints. Respiratory: On room air 100% Cardiac: Sinus rhythm Patient recieved plavix on 07/28/22, Will repeat platelet response on Tuesday. Will plan for surgery next week Neurology following. Continue steroids for Hx of temporal arteritis. Carotids show no significant dz, CT head complete No flow-limiting stenosis or occlusion along major intracranial arterial vessels. No acute intracranial process nor bony injury UA negative, HGa1c 6.2 Patient was seen and examined by Dr. Mccurdy. Plan repeat platelet response to Plavix in [...] Work-up for coronary artery bypass graft is complete. Plan for surgery tomorrow. Patient was seen and examined by Dr. Mccurdy. Plan of care discussed with team 08/02/22 CABG x 4 (MITCHELL-LAD, SVG-OM1, SVG-OM2, SVG-PDA) ALAA EV (LGSV) Posterior pericardiotomy 08/03/22 POD 1 Patient hemodynamically stable post operatively CXR and labs reviewed Wean off oxygen as tolerated, currently at 2l nasal cannula Encourage incentive spirometer use and deep breathing Keep chest tubes and monitor outputs Advance diet as tolerated Glycemic control on insulin drip Pain management Monitor strict I Os DVT ppx with SCDs, GI ppx with PPI Monitor patient closely in CVICU Patient seen and examined with Dr. Mccurdy, plan of care discussed with ICU team Consultants: anesthesiology, cardiology, cardiovascular surgery at 1113 at 0910 RPT #:[id number] END OF [id number] 13:50:00 [facility] ([facility]) Hospitalist Progress Note REPORT#:[id number] REPORT STATUS: Signed DATE:08/03/22 TIME: 1350 PATIENT: MARY DALY UNIT #: [id number] ROOM/BED: [place] [address] : 53 AGE: 66 SEX: M ATTEND: Anthony Loaiza MD ADM AUTHOR: Luther Martin ANESTHESIOLOGIST * ALL edits or amendments must be made on the electronic/computer document * Luther Martin 08/03/22 1350: Subjective Chief complaint: S/P CABG x 4 (MITCHELL to LAD, saphenous vein to first marginal, saphenous vein to second marginal, saphenous vein to PDA, Amputation of left [...] Cardiovascular: Denies: PETERSEN (dyspnea on exertion), orthopnea, palpitations, parox nocturnal dyspnea. GI: Denies: constipation, dysphagia, hematemesis, hiatal hernia, nausea. : Denies: flank pain, hematuria, penile lesion, testicular pain, testicular swelling. Endocrine: Denies: heat intolerance, polydipsia, polyuria, weight gain. Neuro: Denies: change in LOC, gait problem, lightheaded. Objective General VS/I O: Vital Signs: Date Time Temp Pulse Resp B/P B/P Pulse O2 O2 Flow FiO2 Mean Ox Delivery Rate 06/ 1000 113/57 78 06/ 1000 37.1 62 15 122/49 68 96 06/13 0900 104/59 78 06/13 0900 37.4 71 23 111/44 61 94 06/13 0801 110/59 76 06/13 0800 37.6 74 36 120/53 72 95 06/13 0751 94 High flow 3 nasal cannula / 0700 114/68 84 06/13 0700 37.6 74 26 117/38 76 94 06/13 0600 37.3 75 24 136/51 75 95 06/13 0500 37.3 75 20 139/55 78 94 06/13 0400 108/62 79 06/13 0400 37.1 74 22 129/55 77 95 06/13 0303 95 Nasal 2 cannula / 0300 103/59 75 06/13 0300 37.1 72 [...] 114/59 77 95 06/12 2200 102/64 78 06/12 2200 37.0 79 15 113/55 74 95 06/12 2130 37.0 80 22 119/56 77 96 06/12 2100 98/63 75 06/12 2100 36.9 78 19 120/57 77 96 06/ 2030 36.8 78 20 126/58 79 96 06/1999 Nasal 2 cannula 08/03 1999 113/61 81 06/1999 36.8 78 28 124/56 78 97 06/ 1930 36.8 78 29 127/58 79 96 / 1916 96 Nasal 2 cannula 08/02 1900 107/58 77 06/ 1900 36.7 77 23 117/55 73 96 08/02 1700 97/52 70 08/02 1700 35.8 73 19 121/50 72 99 08/02 1600 120/66 89 08/02 1600 36.1 75 17 149/58 85 99 08/02 1535 36.2 80 18 125/53 80 08/02 [...] Meds + DC'd Last 24 Hrs Ipratropium Garwood (ATROVENT) 500 MCG RTQ2H PRN PRN INH Cyanocobalamin (Vitamin B-12 500 mcg tab) 500 MCG DAILY PO Ferrous Sulfate (FERROUS SULFATE) 325 MG DAILY PO Bisacodyl (DULCOLAX) 10 MG ONCE PRN RECTAL Magnesium Hydroxide (MILK OF MAGNESIA) 30 ML ONCE PRN PO Atorvastatin Calcium (LIPITOR) 40 MG 2100 PO Clopidogrel Bisulfate (Plavix) 75 MG DAILY PO Polyethylene Glycol (MIRALAX) 17 GM DAILY PO Ipratropium Garwood (ATROVENT) 500 MCG RTQ6H PRN PRN INH Pantoprazole (PROTONIX) 40 MG DAILY@0600 PO Docusate Sodium (COLACE) 100 MG BID PO Gabapentin (NEURONTIN) 200 MG BID PO Metoprolol Tartrate (LOPRESSOR) 12.5 MG Q12HR PO Sennosides (Senna Lax 8.6 MG TABLET) 17.2 MG BEDTIME PO Aspirin (ASPIRIN) 81 MG DAILY PO Ipratropium Garwood (ATROVENT) 500 MCG RTQ4H INH Amiodarone HCl (CORDARONE) 200 MG TID PO Sugammadex Sodium (BRIDION) 0 .STK-MED ONE IV (DC) Acetaminophen (TYLENOL) 650 MG Q4H PRN PRN PO Acetaminophen (TYLENOL) 650 MG Q4H PRN PRN RECTAL Albumin Human (ALBUMINAR 25%) 25 GM ASDIR PRN IV (DC) Calcium Chloride (CALCIUM CHLORIDE) 1 GM ASDIR PRN IV Cefazolin Sodium (KEFZOL OR ANCEF) 6 GM ONCE ONE IV (DC) Sodium Chloride (SODIUM CHLORIDE 0.9%) 500 ML Dextrose/Water (DEXTROSE 10% IN WATER) 125 ML ASDIR PRN IV (CKD) Dextrose/Water (DEXTROSE 10% IN WATER) 250 ML ASDIR PRN IV (CKD) Epinephrine (ADRENALIN CHLORIDE) 4 MG ASDIR IV Dextrose/Water (DEXTROSE 5% WATER) 246 ML Glucagon (GLUCAGON) 1 MG ASDIR PRN IM Insulin Human Regular (HumuLIN R) 100 UNIT ASDIR IV (CKD) Sodium Chloride (SODIUM CHLORIDE 0.9%) 99 ML Magnesium Sulfate (MAGNESIUM SULFATE 4GM/SWFI 100ML) 100 ML ASDIR PRN IV Magnesium Sulfate (MAGNESIUM SULFATE 2GM/SWFI 50ML) 50 ML ASDIR PRN IV Magnesium Sulfate/Dextrose (MAGNESIUM SULFATE 1GM/D5W 100ML) 100 ML ASDIR PRN IV Nitroglycerin/Dextrose (NITROGLYCERIN 50,000MCG/D5W 250ML) 250 ML ASDIR IV Norepinephrine Bitartrate (NOREPINEPHRINE 8 MG/NS 250 ML) 250 ML TITRATE IV Ondansetron [...] Sodium Chloride (SODIUM CHLORIDE 0.9%) 250 ML Q24H IV Hydrocortisone Sodium Succinate (Solu-CORTEF) 100 MG PREOP ONCALL IV (DC ) Acetaminophen (TYLENOL EXTRA STRENGTH) 1,000 MG PREOP ONCALL PO (DC) Cefazolin Sodium (KEFZOL OR ANCEF) 2 GM PREOP ONCALL IV (DC) Gabapentin (NEURONTIN) 200 MG PREOP ONCALL PO (DC) Sodium Chloride (SODIUM CHLORIDE) 20 ML ASDIR IV (DC) Vancomycin HCl (VANCOMYCIN HCL) 1,250 MG PREOP ONCALL IV (DC) Sodium Chloride (SODIUM CHLORIDE 0.9%) 250 ML Verapamil HCl (ISOPTIN) 16.6 MG .Q24H ONE IV (DC) Heparin Sodium (Porcine) (HEPARIN SODIUM) 1,660 UNIT Sodium Bicarbonate (SODIUM BICARBONATE) 0.7 ML Nitroglycerin/Dextrose (NITROGLYCERIN 50MG/D5W 250ML) 8.3 MG Lactated Ringer's (LACTATED RINGERS) 949.5 ML Nebivolol (BYSTOLIC) 10 MG BEDTIME PO (DC) Nitroglycerin/Dextrose (NITROGLYCERIN 50,000MCG/D5W 250ML) 250 ML ASDIR IV (DC) Heparin Sodium (HEPARIN 5000 UNITS/ML) 0 ASDIR PRN IV (DC) Heparin Sodium (Porcine) (HEPARIN 25,000 UNITS/ 1/2NS 500ML) 500 ML ASDIR IV (DC) Mupirocin (BACTROBAN 2% 22 GM OINTMENT) 1 APPLIC BID NASAL (DC) Carboxymethylcellulose Sodium (REFRESH TEARS) 1 DROP QID PRN EACH EYE ( DC) Ranolazine (RANEXA 500MG TAB) 500 MG Q12HR PO (DC) Al Hydrox/Mg Hydrox/Simethicone (MYLANTA) 30 ML Q4H PRN PRN PO (DC) Hydralazine HCl (APRESOLINE) 50 MG Q6H PRN PRN PO (DC) Amlodipine Besylate (NORVASC) 10 MG DAILY PO (DC) Famotidine (PEPCID) 20 MG DAILY PO (DC) Losartan Potassium (COZAAR) 50 MG DAILY PO (DC) Prednisone (predniSONE) 2 MG C BK PO Atorvastatin Calcium (LIPITOR) 10 MG BEDTIME PO (DC) Prednisone (predniSONE) 1 MG BEDTIME PO (DC) Acetaminophen (TYLENOL EXTRA STRENGTH) 500 MG Q4H PRN PRN PO (DC) Atropine Sulfate (ATROPINE SULFATE 0.1MG/ML SYR) 0.5 MG ASDIR PRN IV (DC ) Sodium Chloride (SODIUM CHLORIDE 0.9%) 500 ML ASDIR PRN IV (DC) Dietitian nutrition assessment The data set between the solid lines has been imported from the dietitian's assessment. BMI Calculated: 28.8 Nutrition related diagnosis: Nutrition diagnosis details: Nutrition problem: Increased nutrient needs Nutrition etiology: Acute illness Nutrition signs and symptoms: ESTIMATED NEEDS S/P SURGERY Nutrition prescription: 1. CONTINUE CARDIAC DIET. HONOR FOOD PREFERENCES APPROPRIATE WITH DIET ORDER. 2. PROVIDE GLUCERNA TID WITH MEALS. 3. MONITOR PO, WT, LABS, BM 4. HEALTHY HEART DIET EDUCATION PRIOR TO DISCHARGE. Dietitian name: Connie Anders, DIET Assessment completed: 08/03/22 Physical Exam General appearance: alert, awake, oriented Head/Eyes: atraumatic, normocephalic, PERRLA Cardiovascular: normal capillary refill, normal heart sounds, regular rate rhythm Respiratory: aerating well, symmetric expansion, no distress Abdomen: non-tender, normal bowel sounds, soft Genitourinary: no bladder distention, no flank pain, no urinary catheter Extremities: no calf tenderness, no clubbing, no cyanosis Musculoskeletal: no CVA tenderness, no muscle spasm Neuro/CERAMIC PAINTER: alert, oriented X 3, CNII-XII intact Skin: dry, intact Results Findings/Data: Laboratory Tests 08/03 08/03 08/03 08/02 0701 0406 0228 2044 Blood Gas Puncture Site Art Line [place] Art Line Art Line O2 Saturation (90 - 100 %) 96.1 [...] 98.2 O2 Delivery Device Cannula Cannula Cannula Cannula 08/02 08/02 08/02 9273 [id number] Blood Gas Puncture Site [place] Marie O2 Saturation (90 - 100 [...] Calcium (1.12 - 1.32 MMOL/L) 1.34 H 1.15 1.26 Lactic Acid (0.9 - 1.7 mmol/l) [...] Albumin (3.4 - 5.0 g/dL) 3.60 08/027 2046 2044 2043 1948 Chemistry Sodium (134 - 147 mEq/L) 141 [...] PT Patient/Control Mix (9.3 - 12.9 SECONDS) 14.4 H Activated Coag Time (74 - 137 [...] %) 7.6 L 3.4 L 9.7 L Brooke % (Auto) (4.8 - 9.0 %) 17.9 H 15.9 H 12.3 H Eos % (Auto) (0.3 - 3.7 %) 0.0 L 0.0 L 0.4 Baso % (Auto) (0.0 - 2.0 %) 0.1 0.1 0.3 Neut # (Auto) (2.0 - 7.6 x10 3/uL) 9.38 H 11.24 H 20.85 H Lymph # (Auto) (1.0 - 3.8 x10 3/uL) 0.96 L 0.48 L 2.64 Brooke # (Auto) (0.1 - 0.8 x10 3/uL) 2.27 H 2.23 H 3.34 H Eos # (Auto) (0.0 - 0.2 x10 3/uL) 0.00 0.00 0.10 Baso # (Auto) (0.0 - 0.2 x10 3/uL) 0.01 0.01 0.07 Abs Immat Gran (auto) (0.00 - 0.03 x10 3/uL) 0.06 H 0.06 H 0.22 H Add Manual Diff NO NO NO Immature Gran % (0.0 - 2.0 %) 0.5 0.4 0.8 Nucleated RBC % (0 - 0 %) 0.0 0.0 0.0 Nucleated RBCs # (Man) (0.0 - 0.1 x10 3/uL) 0.00 0.00 0.00 Results: labs reviewed, vital signs reviewed, vital signs stable, x-ray personally reviewed, current med profile rev'd Treatment Prophylaxis Treatment Prophylaxis Oxygen: room air Diagnosis, Assessment Plan Consultants: anesthesiology, cardiology, cardiovascular surgery Code status: full code Plan discussed with: patient, admitting physician, consultants, nurse Free Text DxA P Notes Free text DxA P notes: Assessment and Plan: - Multivessel CAD. - CP due to CAD. - Hypomagnesemia. - HX of HTN/HLD and CAD. Plan: CVICU. S/P CABG x 4 (MITCHELL to LAD, saphenous vein to first marginal, saphenous vein to second marginal, saphenous vein to PDA, Amputation of left [...] with and documented by Luther Montiel NP at 1353 at 5913 RPT #:[id number] END OF [id number] 13:40:00 [facility] ([facility]) Neurology Progress Note REPORT#:[id number] REPORT STATUS: Signed DATE:08/03/22 TIME: 1340 PATIENT: MARY DALY UNIT #: [id number] ROOM/BED: [address] : 53 AGE: 66 SEX: M ATTEND: Anthony Loaiza MD ADM AUTHOR: Sam Fallon MD * ALL edits or amendments must be made on the electronic/computer document * Subjective Chief complaint: chest pain HPI: Patient complains of some expected post op pain and has noted some mild change in depth perception. He denies any change when covering one eye, however. No focal weakness, numbness, change in speech is noted. Review of Systems Free Text ROS Notes Free Text ROS Notes: 14 point system reviewed and negative with exception of what is in HPI Objective General [...] CIPROFLOXACIN (CIPRO) 500 MG PO DAILY PRN DIVERTICULITIS CLOPIDOGREL (PLAVIX) 75 MG PO DAILY metroNIDAZOLE (FLAGYL) 500 MG PO TID PRN DIVERTICULITIS NEBIVOLOL (BYSTOLIC) 20 MG PO BID OMEPRAZOLE ER (PriLOSEC) 40 MG PO DAILY PRN ACID REFLUX predniSONE 1 MG PO TID SILDENAFIL (VIAGRA) 100 MG PO DAILY PRN PRN ED SODIUM FLUORIDE (PREVIDENT 5000 1.1% DENTAL) 1 APPLIC TOPICAL DAILY ASPIRIN 81 MG PO DAILY POTASSIUM GLUCONATE 1 TAB PO DAILY CALCIUM CARBONATE (CALTRATE 600 MG) 600 MG PO DAILY CHOLECALCIFEROL (VITAMIN D3) (VITAMIN D3) 1,000 UNITS PO DAILY ACETAMINOPHEN (TYLENOL) 500 MG PO Q4H PRN PRN PAIN IBUPROFEN (ADVIL) 200 MG PO Q6H PRN PRN PAIN FAMOTIDINE (PEPCID) 20 MG PO DAILY amLODIPine (NORVASC) 10 MG PO DAILY LOSARTAN (COZAAR) 50 MG PO DAILY Active Meds + DC'd Last 24 Hrs Ipratropium Garwood (ATROVENT) 500 MCG RTQ2H PRN PRN INH Cyanocobalamin (Vitamin B-12 500 mcg tab) 500 MCG DAILY PO Ferrous Sulfate (FERROUS SULFATE) 325 MG DAILY PO Bisacodyl (DULCOLAX) 10 MG ONCE PRN RECTAL Magnesium Hydroxide (MILK OF MAGNESIA) 30 ML ONCE PRN PO Atorvastatin Calcium (LIPITOR) 40 MG 2100 PO Clopidogrel Bisulfate (Plavix) 75 MG DAILY PO Polyethylene Glycol (MIRALAX) 17 GM DAILY PO Ipratropium Garwood (ATROVENT) 500 MCG RTQ6H PRN PRN INH Pantoprazole (PROTONIX) 40 MG DAILY@0600 PO Docusate Sodium (COLACE) 100 MG BID PO Gabapentin (NEURONTIN) 200 MG BID PO Metoprolol Tartrate (LOPRESSOR) 12.5 MG Q12HR PO Sennosides (Senna Lax 8.6 MG TABLET) 17.2 MG BEDTIME PO Aspirin (ASPIRIN) 81 MG DAILY PO Ipratropium Garwood (ATROVENT) 500 MCG RTQ4H INH Amiodarone HCl (CORDARONE) 200 MG TID PO Acetaminophen (TYLENOL) 650 MG Q4H PRN PRN PO Acetaminophen (TYLENOL) 650 MG Q4H PRN PRN RECTAL Albumin Human (ALBUMINAR 25%) 25 GM ASDIR PRN IV (DC) Calcium Chloride (CALCIUM CHLORIDE) 1 GM ASDIR PRN IV Cefazolin Sodium (KEFZOL OR ANCEF) 6 GM ONCE ONE IV (DC) Sodium Chloride (SODIUM CHLORIDE 0.9%) 500 ML Dextrose/Water (DEXTROSE 10% IN WATER) 125 ML ASDIR PRN IV (CKD) Dextrose/Water (DEXTROSE 10% IN WATER) 250 ML ASDIR PRN IV (CKD) Epinephrine (ADRENALIN CHLORIDE) 4 MG ASDIR IV Dextrose/Water (DEXTROSE 5% WATER) 246 ML Glucagon (GLUCAGON) 1 MG ASDIR PRN IM Insulin Human Regular (HumuLIN R) 100 UNIT ASDIR IV (CKD) Sodium Chloride (SODIUM CHLORIDE 0.9%) 99 ML Magnesium Sulfate (MAGNESIUM SULFATE 4GM/SWFI 100ML) 100 ML ASDIR PRN IV Magnesium Sulfate (MAGNESIUM SULFATE 2GM/SWFI 50ML) 50 ML ASDIR PRN IV Magnesium Sulfate/Dextrose (MAGNESIUM SULFATE 1GM/D5W 100ML) 100 ML ASDIR PRN IV Nitroglycerin/Dextrose (NITROGLYCERIN 50,000MCG/D5W 250ML) 250 ML ASDIR IV Norepinephrine Bitartrate (NOREPINEPHRINE 8 MG/NS 250 ML) 250 ML TITRATE IV Ondansetron [...] Sodium Chloride (SODIUM CHLORIDE 0.9%) 250 ML Q24H IV Prednisone (predniSONE) 2 MG C BK PO Physical Exam Neuro comment: GEN: NAD, Calm and Cooperative HEENT: NC/AT, Anicteric Sclera CV: Brisk Cap Refill/Palpable peripheral pulses, chest tube, sternotomy dressing RESP: Chest Expansion is symmetric, non-labored breathing Neuro Exam: Mental Status: A, A, O x4, cooperative, good fund of knowledge Naming, comprehension, repetition intact. Follow simple and 3-step verbal commands Language: Fluency intact, no aphasia or dysarthria Coordination: Normal Finger to nose exam, No dysmetria or tremor Cranial Nerves: II: Pupils equal and symmetric, Brisk and reactive to light bilaterally III, IV, : EOM intact, No gaze preference, No visual field deficit, No nystagmus V, VII: Normal Sensation to V1, V2, V3 distribution bilaterally, Normal facial expression, No facial paresis or Nasolabial fold flattening. VIII: Hearing is intact to speech IX, X: Soft palate elevates normally, Uvula to the midline XI, XII: Normal strength to SCM bilaterally. Tongue protrudes to the midline Motor: symmetric flexor and extensor strength throughout all 4 ext. AG wo drift. Sensory: Normal Sensation to Light touch, Pinprick, Temperature, in all extremities Plantar Responses: Flexor bilaterally Diagnosis, Assessment Plan Free Text A P: This is a 66-year-old male with a past medical history of hypertension, hyperlipidemia, diverticulitis, MD, gout, temporal arteritis and CAD who was admitted to [facility] on July 28 electively for a left heart cath. Neuro exam demonstrates no focal deficits. Impression: Multivessel coronary artery disease H/O Temporal Arteritis Prior MD with PCI Hypertension Plan: - patient is s/p CABG. No new deficits. Neurology will sign off at this time. at 3084 RPT #:[id number] END OF [id number] 08:16:900221-2048 [place] [address] PATIENT NAME: MARY DALY ADMIT DATE: 07/30/22 ACCOUNT NO: [id number] ROOM NO: [id number] AGE: 66 REPORT TYPE: CARDIAC CATHETERIZATION REPORT SEX: M ADMITTING PHYSICIAN:Anthony Loaiza MD ATTENDING PHYSICIAN:Anthony Loaiza MD PROCEDURE DATE: PROCEDURE PERFORMED: 1. Selective coronary angiogram. 2. Balloon angioplasty of mid LAD severe stenosis. 3. Failed PCI of mid LAD stenosis. INDICATIONS: Severe coronary artery disease with active chest pain. ACCESS: Right radial artery, a 6-British closed with TR band. COMPLICATIONS: None. BLEEDING: Less than 20 mL TOTAL SEDATION TIME: Was 45 minutes. DESCRIPTION OF PROCEDURE: After risks, benefits and alternatives were explained to the patient, the patient agreed to proceed and signed informed consent. The patient was brought into cardiac catheterization laboratory, prepped and draped in sterile fashion and then I accessed the radial artery using pediatric micropuncture kit, placed a 6-British slender sheath and took a 5-British Kimball 4 catheter into the aortic root, engaged the left main and right coronary artery, took standard views and then I took a 6-British XB 3.5 guide into the aortic root, over a J wire and engaged the left main gave systemic heparin to assure ACT level above [...] 80% to 90%, mid 99% and then luminal irregularities. Diagonal branch appears to be normal. 3. Left circumflex proximal 80% and OM1 has mid 50%. 4. RCA is a INTERCHANGE AGENT proximally with auto collaterals and ADEN 1 flow. CONCLUSION: Severe coronary artery disease, multivessel. PLAN: Consult CT surgery for bypass due to the difficulty of intervention. PATIENT NAME: MARY DALY Dictated By: Sam Price MD Date Dictated: 08/03/2022 08:16:37 Date Transcribed: 08/03/2022 09:11:08 SR/SVR Receipt ID: [id number] Authenticated by Sam Price MD On 08/31/2022 10:56:05 AM at 1056 PATIENT NAME: MARY DALY 08:05:00 [facility]) Critical Care Progress Note REPORT#:[id number] REPORT STATUS: Signed DATE:08/03/22 TIME: 804 PATIENT: MARY DALY UNIT #: [id number] ROOM/BED: [place] [address] : 53 AGE: 66 SEX: M ATTEND: Anthony Loaiza MD ADM AUTHOR: Sterling Hidalgo MD * ALL edits or amendments must be made on the electronic/computer document * Subjective Chief complaint: Chest pain Exertional dyspnea HPI: Patient seen and discussed during MDR this morning in CVICU room #2207. Patient is postop day 1 after CABG x4. Complains of chest pain, dyspnea this morning. Received ipratropium nebulizer without any relief. Has significant acid reflux symptoms with heartburn and dyspepsia. Patient will be started on IV Protonix 40 mg every 12 hours. His arterial line and [place] Dino catheter will be discontinued. Chest tubes and central venous catheter are going to be retained. Hemoglobin is 8.7 g/dL. Patient is tolerating oral diet. He is ambulating with physical therapy. Latest blood gas shows a pH of 7.39, PCO2 of 39 mmHg, PO2 of 78 mmHg and bicarbonate of 24 mmol with base excess at -0.6. Chest tube output is 200 mL and 190 mL respectively in the last 12-hour shift. Urine output is adequate at 1250 mL in the last 12-hour shift. Urine output dropped to 20 mL/h and responded to albumin infusion. Vital signs are stable with a heart rate of 63, blood pressure 123/48 mmHg and pulse ox 98% on nasal cannula oxygen that is being titrated. On 08/02/2022, patient was brought to the CVICU room #2207 status post CABG x5 and ligation of left atrial appendage, extubated in the OR, on epinephrine at 4 mcg and norepinephrine at 2 mcg. Patient was a grade 1 view easy intubation with 8.0 ET tube. Received rocuronium and etomidate for RSI. EF 55%. PA pressures 24 mmHg and cardiac index 2.2-2.6. Patient received intravenous calcium and magnesium intraoperatively. Had [...] for temporal arteritis since 2017. And received hydrocortisone 100 mg IV x1 dose. He is able to move all 4 extremities and follows commands. Left pleural output is 50 mL and mediastinal output is 35 mL. Patient has bilaterally symmetrical and equal pupils on both sides. He received parasternal block for pain control. Vital signs are stable with a heart rate of 80 sinus rhythm, blood pressure 128 /57 mmHg, pulse ox 96% on facemask and PA pressures 28/12 mmHg. He is awake, interactive, following commands and moving all 4 extremities. Patient is full code. Mary Daly is a 66-year gentleman with past medical history significant for coronary artery disease status post PCI in the past, with most recent in July 07, 2022, history of temporal arteritis on chronic prednisone since 2017, diverticulitis, gout, hypertension, hyperlipidemia. Strong family history of CAD. Has history of diabetes. He presented with exertional shortness of breath with occasional chest pain over the past several weeks. Cardiac work-up and left heart cath revealed multivessel coronary disease. CT surgery was consulted for CABG evaluation and patient underwent surgery on 08/02/2022. Patient reports: No: abdominal pain, diarrhea, fever, shortness of breath, vomiting. Nursing reports: No: diarrhea, fever, shortness of breath, vomiting. Review of Systems Constitutional: Denies: fatigue, fever, generalized weakness. Skin: Denies: diaphoresis, ecchymosis. Allergy/Immun: Denies: anaphylaxis, hives. Eyes: Denies: redness, discharge. ENT: Denies: nose bleeding, throat swelling, tongue swelling. Respiratory: Reports: PETERSEN (dyspnea on exertion), SOB. Denies: hemoptysis, wheezing. Cardiovascular: Denies: PETERSEN (dyspnea on exertion), edema. GI: Denies: hematemesis, hematochezia, nausea, vomiting. : Denies: hematuria, nocturia. Heme: Denies: bleeding, [...] Meds + DC'd Last 24 Hrs Ipratropium Garwood (ATROVENT) 500 MCG RTQ2H PRN PRN INH Cyanocobalamin (Vitamin B-12 500 mcg tab) 500 MCG DAILY PO Ferrous Sulfate (FERROUS SULFATE) 325 MG DAILY PO Bisacodyl (DULCOLAX) 10 MG ONCE PRN RECTAL Magnesium Hydroxide (MILK OF MAGNESIA) 30 ML ONCE PRN PO Atorvastatin Calcium (LIPITOR) 40 MG 2100 PO Clopidogrel Bisulfate (Plavix) 75 MG DAILY PO Polyethylene Glycol (MIRALAX) 17 GM DAILY PO Ipratropium [place] (ATROVENT) 500 MCG RTQ6H PRN PRN INH Pantoprazole (PROTONIX) 40 MG DAILY@0600 PO Docusate Sodium (COLACE) 100 MG BID PO Gabapentin (NEURONTIN) 200 MG BID PO Metoprolol Tartrate (LOPRESSOR) 12.5 MG Q12HR PO Sennosides (Senna Lax 8.6 MG TABLET) 17.2 MG BEDTIME PO Aspirin (ASPIRIN) 81 MG DAILY PO Ipratropium [place] (ATROVENT) 500 MCG RTQ4H INH Amiodarone HCl (CORDARONE) 200 MG TID PO Sugammadex Sodium (BRIDION) 0 .STK-MED ONE IV (DC) Mupirocin (BACTROBAN 2% 22 GM OINTMENT) 1 APPLIC BID NASAL (DC) Acetaminophen (TYLENOL) 650 MG Q4H PRN PRN PO Acetaminophen (TYLENOL) 650 MG Q4H PRN PRN RECTAL Albumin Human (ALBUMINAR 25%) 25 GM ASDIR PRN IV Calcium Chloride (CALCIUM CHLORIDE) 1 GM ASDIR PRN IV Cefazolin Sodium (KEFZOL OR ANCEF) 6 GM ONCE ONE IV (CKD) Sodium Chloride (SODIUM CHLORIDE 0.9%) 500 ML Dextrose/Water (DEXTROSE 10% IN WATER) 125 ML ASDIR PRN IV (CKD) Dextrose/Water (DEXTROSE 10% IN WATER) 250 ML ASDIR PRN IV (CKD) Epinephrine (ADRENALIN CHLORIDE) 4 MG ASDIR IV Dextrose/Water (DEXTROSE 5% WATER) 246 ML Glucagon (GLUCAGON) 1 MG ASDIR PRN IM Insulin Human Regular (HumuLIN R) 100 UNIT ASDIR IV (CKD) Sodium Chloride (SODIUM CHLORIDE 0.9%) 99 ML Magnesium Sulfate (MAGNESIUM SULFATE 4GM/SWFI 100ML) 100 ML ASDIR PRN IV Magnesium Sulfate (MAGNESIUM SULFATE 2GM/SWFI 50ML) 50 ML ASDIR PRN IV Magnesium Sulfate/Dextrose (MAGNESIUM SULFATE 1GM/D5W 100ML) 100 ML ASDIR PRN IV Nitroglycerin/Dextrose (NITROGLYCERIN 50,000MCG/D5W 250ML) 250 ML ASDIR IV Norepinephrine Bitartrate (NOREPINEPHRINE 8 MG/NS 250 ML) 250 ML TITRATE IV Ondansetron [...] Sodium Chloride (SODIUM CHLORIDE 0.9%) 250 ML Q24H IV Antithrombin III (Human) (Thrombate III) 0 .STK-MED ONE IV (DC) Heparin Sodium (HEPARIN SODIUM) 0 .STK-MED ONE .ROUTE (DC) Hydrocortisone Sodium Succinate (Solu-CORTEF) 100 MG PREOP ONCALL IV (DC ) Cefazolin Sodium (KEFZOL OR ANCEF) 0 .STK-MED ONE .ROUTE (DC) Sodium Chloride (SODIUM CHLORIDE 0.9%) 250 ML .STK-MED ONE IV (DC) Vancomycin HCl (Vancomycin 1,250 mg Inj (B2)) 0 .STK-MED ONE IV (DC) Lidocaine HCl (XYLOCAINE) 0 .STK-MED ONE .ROUTE (DC) Dexamethasone Sodium Phosphate (DECADRON) 0 .STK-MED ONE .ROUTE (DC) Esmolol HCl (BREVIBLOC) 0 .STK-MED ONE IV (DC) Etomidate (AMIDATE) 0 .STK-MED ONE IV (DC) Fentanyl Citrate (SUBLIMAZE) 0 .STK-MED ONE IV (DC) Lidocaine HCl (XYLOCAINE) 0 .STK-MED ONE .ROUTE (DC) Ondansetron HCl (ZOFRAN) 0 .STK-MED ONE .ROUTE (DC) Rocuronium [place] (ZEMURON) 0 .STK-MED ONE IV (DC) Epinephrine HCl (EPINEPHrine 4 mg/D5W 250 mL) 250 ML .STK-MED ONE IV (DC ) Insulin Human Regular (HumuLIN R 100 UNITS/NS 100ML) 100 ML .STK-MED ONE IV (DC) Norepinephrine Bitartrate (NOREPINEPHRINE 8 MG/NS 250 ML) 250 ML .STK-MED ONE IV (DC) Aminocaproic Acid (AMICAR) 0 .STK-MED ONE IV (DC) Calcium Chloride (CALCIUM CHLORIDE) 0 .STK-MED ONE IV (DC) Heparin Sodium (HEPARIN SODIUM) 0 .STK-MED ONE .ROUTE (DC) Nitroglycerin/Dextrose (NITROGLYCERIN 50,000MCG/D5W 250ML) 250 ML .STK-MED ONE IV (DC) Protamine Sulfate (PROTAMINE SULFATE) 0 .STK-MED ONE IV (DC) Magnesium Sulfate (MAGNESIUM SULFATE) 0 .STK-MED ONE .ROUTE (DC) Ropivacaine (NAROPIN 0.5% 150 MG/30mL) 0 .STK-MED ONE .ROUTE (DC) Albumin Human (ALBUMINAR-25%) 100 ML .STK-MED ONE IV (DC) Heparin Sodium (HEPARIN SODIUM) 0 .STK-MED ONE .ROUTE (DC) Sodium Chloride (SODIUM CHLORIDE 0.9%) 100 ML .STK-MED ONE IV (DC) Lidocaine HCl (XYLOCAINE IV) 0 .STK-MED ONE IV (DC) Magnesium Sulfate (MAGNESIUM SULFATE) 0 .STK-MED ONE IV (DC) Sodium Bicarbonate (SODIUM BICARBONATE) 0 .STK-MED ONE IV (DC) Phenylephrine HCl (MARK-SYNEPHRINE 10MG/ML AMP) 0 .STK-MED ONE .ROUTE (DC ) Acetaminophen (TYLENOL EXTRA STRENGTH) 1,000 MG PREOP ONCALL PO (DC) Cefazolin Sodium (KEFZOL OR ANCEF) 2 GM PREOP ONCALL IV (DC) Gabapentin (NEURONTIN) 200 MG PREOP ONCALL PO (DC) Sodium Chloride (SODIUM CHLORIDE) 20 ML ASDIR IV (DC) Vancomycin HCl (VANCOMYCIN HCL) 1,250 MG PREOP ONCALL IV (DC) Sodium Chloride (SODIUM CHLORIDE 0.9%) 250 ML Verapamil HCl (ISOPTIN) 16.6 MG .Q24H ONE IV (DC) Heparin Sodium (Porcine) (HEPARIN SODIUM) 1,660 UNIT Sodium Bicarbonate (SODIUM BICARBONATE) 0.7 ML Nitroglycerin/Dextrose (NITROGLYCERIN 50MG/D5W 250ML) 8.3 MG Lactated Ringer's (LACTATED RINGERS) 949.5 ML Nebivolol (BYSTOLIC) 10 MG BEDTIME PO (DC) Nitroglycerin/Dextrose (NITROGLYCERIN 50,000MCG/D5W 250ML) 250 ML ASDIR IV (DC) Heparin Sodium (HEPARIN 5000 UNITS/ML) 0 ASDIR PRN IV (DC) Heparin Sodium (Porcine) (HEPARIN 25,000 UNITS/ 1/2NS 500ML) 500 ML ASDIR IV (DC) Mupirocin (BACTROBAN 2% 22 GM OINTMENT) 1 APPLIC BID NASAL (DC) Carboxymethylcellulose Sodium (REFRESH TEARS) 1 DROP QID PRN EACH EYE ( DC) Docusate Sodium (COLACE) 100 MG BID PO (DC) Ranolazine (RANEXA 500MG TAB) 500 MG Q12HR PO (DC) Al Hydrox/Mg Hydrox/Simethicone (MYLANTA) 30 ML Q4H PRN PRN PO (DC) Hydralazine HCl (APRESOLINE) 50 MG Q6H PRN PRN PO (DC) Amlodipine Besylate (NORVASC) 10 MG DAILY PO (DC) Aspirin (ASPIRIN) 81 MG DAILY PO (DC) Famotidine (PEPCID) 20 MG DAILY PO (DC) Losartan Potassium (COZAAR) 50 MG DAILY PO (DC) Prednisone (predniSONE) 2 MG C BK PO Atorvastatin Calcium (LIPITOR) 10 MG BEDTIME PO (DC) Prednisone (predniSONE) 1 MG BEDTIME PO (DC) Acetaminophen (TYLENOL EXTRA STRENGTH) 500 MG Q4H PRN PRN PO (DC) Atropine Sulfate (ATROPINE SULFATE 0.1MG/ML SYR) 0.5 MG ASDIR PRN IV (DC ) Sodium Chloride (SODIUM CHLORIDE 0.9%) 500 ML ASDIR PRN IV (DC) Post-op: day 1 Status post: CABG times 4 Physical Exam General appearance: alert, awake, oriented, no acute distress, pleasant, conversational, mental status normal, no respiratory distress Head/eyes: atraumatic, clear cornea, normocephalic, PERRL ENT: moist mucosal membranes, normal nose, normal sinus Neck: no JVD, no masses or swelling Cardiovascular: normal capillary refill, normal heart sounds, regular rate and rhythm Respiratory: aerating well, clear to auscultation, symmetric expansion, no distress Abdomen: soft, non-tender, no distention, no guarding, no rebound Genitourinary: urinary catheter, no bladder distention Extremities: moves all, no clubbing, no cyanosis, no edema Neuro/CERAMIC PAINTER: no motor deficits Wound/incision: Location: sternal wound Psychiatry: normal affect, normal mood, no hallucinations Results Findings/data: Laboratory Tests 08/03 08/03 08/03 08/02 0701 0406 0222 2045 Blood Gas Puncture Site Art Line [place] Art Line Art Line O2 Saturation (90 - 100 %) 96.1 [...] 98.2 O2 Delivery Device Cannula Cannula Cannula Cannula 08/029 1544 1417 1318 Blood Gas Puncture Site [place] O2 Saturation (90 - 100 %) 96.4 99.9 99.9 ABG pH (7.35 - 7.45) 7.300 L 7.391 7.383 ABG pCO2 (35.0 - 45 mmHg) 38.2 36.7 42.0 ABG pO2 (80 - 100.0 mmHg) 93.1 254.6 *H 345.2 *H ABG HCO3 (22.0 - 26.0 MMOL/L) [...] Calcium (1.12 - 1.32 MMOL/L) 1.34 H 1.15 1.26 1.07 L Lactic Acid (0.9 - 1.7 mmol/l) 2.0 H 2.3 H 1.2 O2 Delivery Device Cannula 08/02 08/02 08/02 1243 1208 1035 Blood Gas O2 Saturation (90 - 100 %) 100.0 100.0 100.0 ABG pH (7.35 - 7.45) 7.404 7.338 L 7.361 ABG pCO2 (35.0 - 45 mmHg) 41.3 42.3 42.7 ABG pO2 (80 - 100.0 mmHg) 417.5 *H 453.7 *H 494.1 *H ABG HCO3 (22.0 - 26.0 MMOL/L) 25.8 22.8 24.2 ABG Total CO2 27.1 24.1 25.5 ABG Base Excess (-4.0 - 4.0 MMOL/L) 1.0 -3.0 -1.4 ABG Hematocrit (37.5 - 50.7 %) 28 L 38 47 ABG Hemoglobin (12.5 - 16.9 G/DL) 9.7 L 13.1 16.0 Sodium (134 - 147 mmol/L) 137 137 141 Potassium (3.4 - 5.0 mmol/L) 5.1 H 4.0 4.0 Chloride (100 - 108 mmol/L) 104 104 104 Ionized Calcium (1.12 - 1.32 MMOL/L) 1.03 L 1.15 1.22 Lactic Acid (0.9 - 1.7 [...] - 1.3 mg/dL) 0.7 L 0.7 L 0.8 POC Glucose (mg/dL) (70 - 110 MG/DL) 142 H 135 H 158 H Laboratory Tests 08/02 08/02 08/02 08/02 08/02 1523 1419 1320 1244 1223 Coagulation INR (0.8 - 1.2) 1.3 H PTT ([place]) (25.0 - 39.5 Seconds) 27.4 PT Patient/Control Mix (9.3 - 12.9 14.4 H SECONDS) Activated Coag Time (74 - 137 SEC) 107 588 H 666 H 486 H 08/02 08/02 1210 1035 [...] %) 7.6 L 3.4 L 9.7 L Brooke % (Auto) (4.8 - 9.0 %) 17.9 H 15.9 H 12.3 H Eos % (Auto) (0.3 - 3.7 %) 0.0 L 0.0 L 0.4 Baso % (Auto) (0.0 - 2.0 %) 0.1 0.1 0.3 Neut # (Auto) (2.0 - 7.6 x10 3/uL) 9.38 H 11.24 H 20.85 H Lymph # (Auto) (1.0 - 3.8 x10 3/uL) 0.96 L 0.48 L 2.64 Brooke # (Auto) (0.1 - 0.8 x10 3/uL) 2.27 H 2.23 H 3.34 H Eos # (Auto) (0.0 - 0.2 x10 3/uL) 0.00 0.00 0.10 Baso # (Auto) (0.0 - 0.2 x10 3/uL) 0.01 0.01 0.07 Abs Immat Gran (auto) (0.00 - 0.03 x10 3/uL) 0.06 H 0.06 H 0.22 H Add Manual Diff NO NO NO Immature Gran % (0.0 - 2.0 %) 0.5 0.4 0.8 Nucleated RBC % (0 - 0 %) 0.0 0.0 0.0 Nucleated RBCs # (Man) (0.0 - 0.1 x10 3/uL) 0.00 0.00 0.00 Laboratory Tests 08/03/22 0230: [Embedded Image Not Available] 08/02/22 2047: [Embedded Image Not Available] 08/02/22 1523: [Embedded Image Not Available] 08/02/22 1522: [Embedded Image Not Available] Microbiology: 08/02 0748 NASAL: MSSA Surveillance Screen - ORD 08/02 847 NASAL: MRSA DNA Surveillance Screen - ORD Radiology data Recent Impressions: RADIOLOGY - XR CHEST 1 V 08/02 2436 Report Impression - Status: SIGNED Entered: 08/02/2022 1505 IMPRESSION: No retained surgical needle is seen. Impression By: Johann Childs M.D. RADIOLOGY - XR CHEST 1 V 08/02 1600 Report Impression - Status: SIGNED Entered: 08/02/2022 1656 IMPRESSION: Postoperative change with vascular congestion and opacity at the lung base. Impression By: Fani Santiago M.D. RADIOLOGY - XR CHEST 1 V 08/03 0637 Report Impression - Status: SIGNED Entered: 08/03/2022 0800 IMPRESSION: Mild worsening left basilar opacities. Impression By: GeronimoSWSerina Diana M.D. Results: labs reviewed, vital signs reviewed, rhythm personally rev'd, x-ray personally reviewed, current med profile rev'd Diagnosis, Assessment Plan Free text A P: Problem List: Chest pain/Angina Exertional dyspnea Coronary artery disease Status post CABG x5 and ILAA Elective ventilatory dependence for acute pulmonary insufficiency following major cardiothoracic surgery Acute blood loss anemia cardiogenic shock Hyperglycemia Leukocytosis Assessment and Plan: Patient was brought to the CVICU room #2207 status post CABG x5 and ligation of left atrial appendage, extubated in the OR, on epinephrine at 4 mcg and norepinephrine at 2 mcg. Patient was a grade 1 view easy intubation with 8.0 ET tube. Received rocuronium and etomidate for RSI. EF 55%. PA pressures 24 mmHg and cardiac index 2.2-2.6. Patient received intravenous calcium and magnesium intraoperatively. Had [...] for temporal arteritis since 2017. And received hydrocortisone 100 mg IV x1 dose. He is able to move all 4 extremities and follows commands. Left pleural output is 50 mL and mediastinal output is 35 mL. Patient has bilaterally symmetrical and equal pupils on both sides. He received parasternal block for pain control. Vital signs are stable with a heart rate of 80 sinus rhythm, blood pressure 128/ 57 mmHg, pulse ox 96% on facemask and PA pressures 28/12 mmHg. He is awake, interactive, following commands and moving all 4 extremities. Patient is full code. Mary Daly is a 66-year gentleman with past medical history significant for coronary artery disease status post PCI in the past, with most recent in July 07, 2022, history of temporal arteritis on chronic prednisone since 2017, diverticulitis, gout, hypertension, hyperlipidemia. Strong family history of CAD. Has history of diabetes. He presented with exertional shortness of breath with occasional chest pain over the past several weeks. Cardiac work-up and left heart cath revealed multivessel coronary disease. CT surgery was consulted for CABG evaluation and patient underwent surgery on 08/02/2022. Postop day 0 after CABG x5 and ILAA No acute events for reported in the OR Patient was easy intubation and induction using rocuronium and etomidate EF 55% PA pressures 24 mm of Hg Cardiac index 2.2 to 2.6 Patient is currently on epinephrine at 4 mcg and norepinephrine at 2 mcg that is being weaned Blood pressure is stable Patient received 1 L of crystalloid and 720 mL of Cell Saver No autologous transfusion or products were used Had 600 mL of urine output Chest tube output is minimal at 50 mL in the left pleural and 35 mL in the mediastinal chest tubes Patient is able to move all 4 extremities and follow command Pain control with parasternal block Patient will be on oral narcotic regimen for pain control Vital signs are stable with heart rate 80, blood pressure 128/57 mmHg and pulse ox 96% on facemask Follow chest tube output Chest x-ray was personally viewed by me and lines and tubes are in position Patient has been on chronic steroid therapy since 2017, received stress dose steroids with hydrocortisone 100 mg IV Avoid further steroid dosing unless evidence of adrenal crisis SCDs for DVT prophylaxis Sterling Hidalgo MD [facility] 08/02/2022 3.57 PM 08/03/2022 Patient seen and discussed during MDR this morning in CVICU room #2207. Patient is postop day 1 after CABG x4. Complains of chest pain, dyspnea this morning. Received ipratropium nebulizer without any relief. Has significant acid reflux symptoms with heartburn and dyspepsia. Patient will be started on IV Protonix 40 mg every 12 hours. His arterial line and [place] catheter will be discontinued. Chest tubes and central venous catheter are going to be retained. Hemoglobin is 8.7 g/dL. Patient is tolerating oral diet. He is ambulating with physical therapy. Latest blood gas shows a pH of 7.39, PCO2 of 39 mmHg, PO2 of 78 mmHg and bicarbonate of 24 mmol with base excess at -0.6. Chest tube output is 200 mL and 190 mL respectively in the last 12-hour shift. Urine output is adequate at 1250 mL in the last 12-hour shift. Urine output dropped to 20 mL/h and responded to albumin infusion. Vital signs are stable with a heart rate of 63, blood pressure 123/48 mmHg and pulse ox 98% on nasal cannula oxygen that is being titrated. On 08/02/2022, patient was brought to the CVICU room #2207 status post CABG x5 and ligation of left atrial appendage, extubated in the OR, on epinephrine at 4 mcg and norepinephrine at 2 mcg. Patient was a grade 1 view easy intubation with 8.0 ET tube. Received rocuronium and etomidate for RSI. EF 55%. PA pressures 24 mmHg and cardiac index 2.2-2.6. Patient received intravenous calcium and magnesium intraoperatively. Had [...] for temporal arteritis since 2017. And received hydrocortisone 100 mg IV x1 dose. He is able to move all 4 extremities and follows commands. Left pleural output is 50 mL and mediastinal output is 35 mL. Patient has bilaterally symmetrical and equal pupils on both sides. He received parasternal block for pain control. Vital signs are stable with a heart rate of 80 sinus rhythm, blood pressure 128 /57 mmHg, pulse ox 96% on facemask and PA pressures 28/12 mmHg. He is awake, interactive, following commands and moving all 4 extremities. Patient is full code. Mary Daly is a 66-year gentleman with past medical history significant for coronary artery disease status post PCI in the past, with most recent in July 07, 2022, history of temporal arteritis on chronic prednisone since 2017, diverticulitis, gout, hypertension, hyperlipidemia. Strong family history of CAD. Has history of diabetes. He presented with exertional shortness of breath with occasional chest pain over the past several weeks. Cardiac work-up and left heart cath revealed multivessel coronary disease. CT surgery was consulted for CABG evaluation and patient underwent surgery on 08/02/2022. He is postop day 1 after CABG x4 Complains of chest pain and heartburn this more Has significant history of GERD and dyspepsia Patient will be started on Protonix 40 mg IV every 12 hours Tolerating oral diet Ambulating with physical therapy Generous output from the chest tubes at 200 mL and 190 mL respectively Monitor chest tube output Both chest tubes to be retained DC [place] Marie catheter and arterial line Central venous catheter to be retained Patient is off vasopressors Hemoglobin is 8.7 g/dL down from 9.4 g/dL Reactive leukocytosis improving Urine output is 1250 mL in the last 12-hour shift Urine output declined to 20 mL/h record and responded to albumin infusion Patient is awake, interactive, with no focal neurological deficit SCDs for DVT prophylaxis Sterling Hidalgo MD [facility] 08/03/2022 11.13 AM Consultants: anesthesiology, cardiology, cardiovascular surgery Code status: full code Plan discussed with: patient, consultants, nurse, interdisc care team, pharmacy/ pharmacist Critical care time: Minutes: 38 at 1113 RPT #:[id number] END OF [id number] 07:11:00 [facility]) Cardiology Progress Note REPORT#:[id number] REPORT STATUS: Signed DATE:08/03/22 TIME: 710 PATIENT: MARY DALY UNIT #: [id number] ROOM/BED: [place] [id number] : 53 AGE: 66 SEX: M ATTEND: Anthony Loaiza MD ADM AUTHOR: Denton Chaparro MD * ALL edits or amendments must be made on the electronic/computer document * Subjective Chief complaint: no chest [...] Flow FiO2 Mean Ox Delivery Rate 08/03 0303 95 Nasal 2 cannula 08/02 2311 98.6 78 20 113/54 73 95 08/02 2300 108/58 78 08/02 2300 98.6 77 20 115/56 76 95 08/02 2230 98.6 79 21 114/59 77 95 08/02 2200 102/64 78 08/02 2200 98.6 79 15 113/55 74 95 08/02 2130 98.6 80 22 119/56 77 96 08/02 2100 98/63 75 08/02 2100 98.4 78 19 120/57 77 96 08/02 2030 98.2 78 20 126/58 79 96 08/03 1999 Nasal 2 cannula 08/03 1999 113/61 81 08/03 1999 98.2 78 28 124/56 78 97 08/02 1930 98.2 78 29 127/58 79 96 08/02 1916 96 Nasal 2 cannula 08/02 1900 107/58 77 08/02 1900 98.1 77 23 117/55 73 96 08/02 1700 97/52 70 08/02 1700 96.4 73 19 121/50 72 99 /12 1600 120/66 89 08/02 1600 97.0 75 17 149/58 85 99 08/02 1535 97.2 80 18 125/53 80 08/02 1515 99 Simple 15 mask 08/02 0800 52 32 151/85 113 90 PATIENT WEIGHT: Weight (lb): 188 Weight (oz): 0.87 Weight (kg): 85.300 Medications: Active Meds + DC'd Last 24 Hrs Ipratropium [place] (ATROVENT) 500 MCG RTQ2H PRN PRN INH Cyanocobalamin (Vitamin B-12 500 mcg tab) 500 MCG DAILY PO Ferrous Sulfate (FERROUS SULFATE) 325 MG DAILY PO Bisacodyl (DULCOLAX) 10 MG ONCE PRN RECTAL Magnesium Hydroxide (MILK OF MAGNESIA) 30 ML ONCE PRN PO Atorvastatin Calcium (LIPITOR) 40 MG 2100 PO Clopidogrel Bisulfate (Plavix) 75 MG DAILY PO Polyethylene Glycol (MIRALAX) 17 GM DAILY PO Ipratropium [place] (ATROVENT) 500 MCG RTQ6H PRN PRN INH Pantoprazole (PROTONIX) 40 MG DAILY@0600 PO Docusate Sodium (COLACE) 100 MG BID PO Gabapentin (NEURONTIN) 200 MG BID PO Metoprolol Tartrate (LOPRESSOR) 12.5 MG Q12HR PO Sennosides (Senna Lax 8.6 MG TABLET) 17.2 MG BEDTIME PO Aspirin (ASPIRIN) 81 MG DAILY PO Ipratropium [place] (ATROVENT) 500 MCG RTQ4H INH Amiodarone HCl (CORDARONE) 200 MG TID PO Sugammadex Sodium (BRIDION) 0 .STK-MED ONE IV (DC) Mupirocin (BACTROBAN 2% 22 GM OINTMENT) 1 APPLIC BID NASAL (DC) Acetaminophen (TYLENOL) 650 MG Q4H PRN PRN PO Acetaminophen (TYLENOL) 650 MG Q4H PRN PRN RECTAL Albumin Human (ALBUMINAR 25%) 25 GM ASDIR PRN IV Calcium Chloride (CALCIUM CHLORIDE) 1 GM ASDIR PRN IV Cefazolin Sodium (KEFZOL OR ANCEF) 6 GM ONCE ONE IV (CKD) Sodium Chloride (SODIUM CHLORIDE 0.9%) 500 ML Dextrose/Water (DEXTROSE 10% IN WATER) 125 ML ASDIR PRN IV (CKD) Dextrose/Water (DEXTROSE 10% IN WATER) 250 ML ASDIR PRN IV (CKD) Epinephrine (ADRENALIN CHLORIDE) 4 MG ASDIR IV Dextrose/Water (DEXTROSE 5% WATER) 246 ML Glucagon (GLUCAGON) 1 MG ASDIR PRN IM Insulin Human Regular (HumuLIN R) 100 UNIT ASDIR IV (CKD) Sodium Chloride (SODIUM CHLORIDE 0.9%) 99 ML Magnesium Sulfate (MAGNESIUM SULFATE 4GM/SWFI 100ML) 100 ML ASDIR PRN IV Magnesium Sulfate (MAGNESIUM SULFATE 2GM/SWFI 50ML) 50 ML ASDIR PRN IV Magnesium Sulfate/Dextrose (MAGNESIUM SULFATE 1GM/D5W 100ML) 100 ML ASDIR PRN IV Nitroglycerin/Dextrose (NITROGLYCERIN 50,000MCG/D5W 250ML) 250 ML ASDIR IV Norepinephrine Bitartrate (NOREPINEPHRINE 8 MG/NS 250 ML) 250 ML TITRATE IV Ondansetron [...] Sodium Chloride (SODIUM CHLORIDE 0.9%) 250 ML Q24H IV Antithrombin III (Human) (Thrombate III) 0 .STK-MED ONE IV (DC) Heparin Sodium (HEPARIN SODIUM) 0 .STK-MED ONE .ROUTE (DC) Hydrocortisone Sodium Succinate (Solu-CORTEF) 100 MG PREOP ONCALL IV (DC ) Cefazolin Sodium (KEFZOL OR ANCEF) 0 .STK-MED ONE .ROUTE (DC) Sodium Chloride (SODIUM CHLORIDE 0.9%) 250 ML .STK-MED ONE IV (DC) Vancomycin HCl (Vancomycin 1,250 mg Inj (B2)) 0 .STK-MED ONE IV (DC) Lidocaine HCl (XYLOCAINE) 0 .STK-MED ONE .ROUTE (DC) Dexamethasone Sodium Phosphate (DECADRON) 0 .STK-MED ONE .ROUTE (DC) Esmolol HCl (BREVIBLOC) 0 .STK-MED ONE IV (DC) Etomidate (AMIDATE) 0 .STK-MED ONE IV (DC) Fentanyl Citrate (SUBLIMAZE) 0 .STK-MED ONE IV (DC) Lidocaine HCl (XYLOCAINE) 0 .STK-MED ONE .ROUTE (DC) Ondansetron HCl (ZOFRAN) 0 .STK-MED ONE .ROUTE (DC) Rocuronium [place] (ZEMURON) 0 .STK-MED ONE IV (DC) Epinephrine HCl (EPINEPHrine 4 mg/D5W 250 mL) 250 ML .STK-MED ONE IV (DC ) Insulin Human Regular (HumuLIN R 100 UNITS/NS 100ML) 100 ML .STK-MED ONE IV (DC) Norepinephrine Bitartrate (NOREPINEPHRINE 8 MG/NS 250 ML) 250 ML .STK-MED ONE IV (DC) Aminocaproic Acid (AMICAR) 0 .STK-MED ONE IV (DC) Calcium Chloride (CALCIUM CHLORIDE) 0 .STK-MED ONE IV (DC) Heparin Sodium (HEPARIN SODIUM) 0 .STK-MED ONE .ROUTE (DC) Nitroglycerin/Dextrose (NITROGLYCERIN 50,000MCG/D5W 250ML) 250 ML .STK-MED ONE IV (DC) Protamine Sulfate (PROTAMINE SULFATE) 0 .STK-MED ONE IV (DC) Magnesium Sulfate (MAGNESIUM SULFATE) 0 .STK-MED ONE .ROUTE (DC) Ropivacaine (NAROPIN 0.5% 150 MG/30mL) 0 .STK-MED ONE .ROUTE (DC) Albumin Human (ALBUMINAR-25%) 100 ML .STK-MED ONE IV (DC) Heparin Sodium (HEPARIN SODIUM) 0 .STK-MED ONE .ROUTE (DC) Sodium Chloride (SODIUM CHLORIDE 0.9%) 100 ML .STK-MED ONE IV (DC) Lidocaine HCl (XYLOCAINE IV) 0 .STK-MED ONE IV (DC) Magnesium Sulfate (MAGNESIUM SULFATE) 0 .STK-MED ONE IV (DC) Sodium Bicarbonate (SODIUM BICARBONATE) 0 .STK-MED ONE IV (DC) Phenylephrine HCl (MARK-SYNEPHRINE 10MG/ML AMP) 0 .STK-MED ONE .ROUTE (DC ) Acetaminophen (TYLENOL EXTRA STRENGTH) 1,000 MG PREOP ONCALL PO (DC) Cefazolin Sodium (KEFZOL OR ANCEF) 2 GM PREOP ONCALL IV (DC) Gabapentin (NEURONTIN) 200 MG PREOP ONCALL PO (DC) Sodium Chloride (SODIUM CHLORIDE) 20 ML ASDIR IV (DC) Vancomycin HCl (VANCOMYCIN HCL) 1,250 MG PREOP ONCALL IV (DC) Sodium Chloride (SODIUM CHLORIDE 0.9%) 250 ML Verapamil HCl (ISOPTIN) 16.6 MG .Q24H ONE IV (DC) Heparin Sodium (Porcine) (HEPARIN SODIUM) 1,660 UNIT Sodium Bicarbonate (SODIUM BICARBONATE) 0.7 ML Nitroglycerin/Dextrose (NITROGLYCERIN 50MG/D5W 250ML) 8.3 MG Lactated Ringer's (LACTATED RINGERS) 949.5 ML Nebivolol (BYSTOLIC) 10 MG BEDTIME PO (DC) Nitroglycerin/Dextrose (NITROGLYCERIN 50,000MCG/D5W 250ML) 250 ML ASDIR IV (DC) Heparin Sodium (HEPARIN 5000 UNITS/ML) 0 ASDIR PRN IV (DC) Heparin Sodium (Porcine) (HEPARIN 25,000 UNITS/ 1/2NS 500ML) 500 ML ASDIR IV (DC) Mupirocin (BACTROBAN 2% 22 GM OINTMENT) 1 APPLIC BID NASAL (DC) Carboxymethylcellulose Sodium (REFRESH TEARS) 1 DROP QID PRN EACH EYE ( DC) Docusate Sodium (COLACE) 100 MG BID PO (DC) Ranolazine (RANEXA 500MG TAB) 500 MG Q12HR PO (DC) Al Hydrox/Mg Hydrox/Simethicone (MYLANTA) 30 ML Q4H PRN PRN PO (DC) Hydralazine HCl (APRESOLINE) 50 MG Q6H PRN PRN PO (DC) Amlodipine Besylate (NORVASC) 10 MG DAILY PO (DC) Aspirin (ASPIRIN) 81 MG DAILY PO (DC) Famotidine (PEPCID) 20 MG DAILY PO (DC) Losartan Potassium (COZAAR) 50 MG DAILY PO (DC) Prednisone (predniSONE) 2 MG C BK PO Atorvastatin Calcium (LIPITOR) 10 MG BEDTIME PO (DC) Prednisone (predniSONE) 1 MG BEDTIME PO (DC) Acetaminophen (TYLENOL EXTRA STRENGTH) 500 MG Q4H PRN PRN PO (DC) Atropine Sulfate (ATROPINE SULFATE 0.1MG/ML SYR) 0.5 MG ASDIR PRN IV (DC ) Sodium Chloride (SODIUM CHLORIDE 0.9%) 500 ML ASDIR PRN IV (DC) Status post: 07/27 LHC 08/02 CABG x 4. Physical Exam General appearance: alert, awake Head/Eyes: atraumatic, PERRL ENT: moist mucosal membranes Neck: full range of motion, no JVD Cardiovascular: CV assessment: regular rate and rhythm, no murmur Respiratory: decreased breath sounds, no distress Abdomen: soft, non-tender, normal bowel sounds, no distention, no guarding Genitourinary: no flank pain, no urinary catheter Upper extremity: UE assessment: normal temperature, no edema Lower extremity: LE assessment: normal temperature, no edema Neuro/CERAMIC PAINTER: alert, oriented X 3, normal speech Skin: dry, intact Psychiatry: normal affect Results Findings/Data: Laboratory Tests 08/03 08/03 08/03 08/02 0701 0406 0228 2044 Blood Gas Puncture Site Art Line [place] Art Line Art Line O2 Saturation (90 - 100 %) 96.1 [...] 98.2 O2 Delivery Device Cannula Cannula Cannula Cannula 08/02 1544 1417 1318 Blood Gas Puncture Site [place] O2 Saturation (90 - 100 %) 96.4 99.9 99.9 ABG pH (7.35 - 7.45) 7.300 L 7.391 7.383 ABG pCO2 (35.0 - 45 mmHg) 38.2 36.7 42.0 ABG pO2 (80 - 100.0 mmHg) 93.1 254.6 *H 345.2 *H ABG HCO3 (22.0 - 26.0 MMOL/L) [...] Calcium (1.12 - 1.32 MMOL/L) 1.34 H 1.15 1.26 1.07 L Lactic Acid (0.9 - 1.7 mmol/l) 2.0 H 2.3 H 1.2 O2 Delivery Device Cannula 08/02 08/02 08/02 1243 1208 1035 Blood Gas O2 Saturation (90 - 100 %) 100.0 100.0 100.0 ABG pH (7.35 - 7.45) 7.404 7.338 L 7.361 ABG pCO2 (35.0 - 45 mmHg) 41.3 42.3 42.7 ABG pO2 (80 - 100.0 mmHg) 417.5 *H 453.7 *H 494.1 *H ABG HCO3 (22.0 - 26.0 MMOL/L) 25.8 22.8 24.2 ABG Total CO2 27.1 24.1 25.5 ABG Base Excess (-4.0 - 4.0 MMOL/L) 1.0 -3.0 -1.4 ABG Hematocrit (37.5 - 50.7 %) 28 L 38 47 ABG Hemoglobin (12.5 - 16.9 G/DL) 9.7 L 13.1 16.0 Sodium (134 - 147 mmol/L) 137 137 141 Potassium (3.4 - 5.0 mmol/L) 5.1 H 4.0 4.0 Chloride (100 - 108 mmol/L) 104 104 104 Ionized Calcium (1.12 - 1.32 MMOL/L) 1.03 L 1.15 1.22 Lactic Acid (0.9 - 1.7 [...] 08/02 08/02 08/02 2207 7 2044 2043 1948 Chemistry Sodium (134 - 147 mEq/L) 141 [...] - 1.3 mg/dL) 0.7 L 0.7 L 0.8 POC Glucose (mg/dL) (70 - 110 MG/DL) 142 H 135 H 158 H Laboratory Tests 08/02 08/02 08/02 08/02 1523 1419 1320 1244 Coagulation INR (0.8 - 1.2) 1.3 H PTT ([place]) (25.0 - 39.5 Seconds) 27.4 PT Patient/Control Mix (9.3 - 12.9 SECONDS) 14.4 H Activated Coag Time (74 - 137 SEC) 107 588 H 666 H 08/02 08/02 08/02 1223 1210 1035 [...] %) 7.6 L 3.4 L 9.7 L Brooke % (Auto) (4.8 - 9.0 %) 17.9 H 15.9 H 12.3 H Eos % (Auto) (0.3 - 3.7 %) 0.0 L 0.0 L 0.4 Baso % (Auto) (0.0 - 2.0 %) 0.1 0.1 0.3 Neut # (Auto) (2.0 - 7.6 x10 3/uL) 9.38 H 11.24 H 20.85 H Lymph # (Auto) (1.0 - 3.8 x10 3/uL) 0.96 L 0.48 L 2.64 Brooke # (Auto) (0.1 - 0.8 x10 3/uL) 2.27 H 2.23 H 3.34 H Eos # (Auto) (0.0 - 0.2 x10 3/uL) 0.00 0.00 0.10 Baso # (Auto) (0.0 - 0.2 x10 3/uL) 0.01 0.01 0.07 Abs Immat Gran (auto) (0.00 - 0.03 x10 3/uL) 0.06 H 0.06 H 0.22 H Add Manual Diff NO NO NO Immature Gran % (0.0 - 2.0 %) 0.5 0.4 0.8 Nucleated RBC % (0 - 0 %) 0.0 0.0 0.0 Nucleated RBCs # (Man) (0.0 - 0.1 x10 3/uL) 0.00 0.00 0.00 Laboratory Tests 08/03 08/02 08/02 [...] 1656 IMPRESSION: Postoperative change with vascular congestion and opacity at the lung base. Impression By: Fani Santiago M.D. Diagnosis, Assessment Plan Consultants: cardiology, cardiovascular surgery Free Text DxA P Notes Free Text DxA P Notes: Mr. Daly is a pleasant 66 y/o male w/ PMHx: CAD s/p PCI, HTN, HLD, T2DM, GERD , temporal arteritis (on prednisone) presented to [facility] for elective PCI. - CAD s/p CABG x 4 (MITCHELL to LAD, SVG to M1, M2, PDA) on telemtry EF 55 to 60% with grade 1 diastolic dysfunction - HTN. BP controlled. On Bystolic, Norvasc and Losartan. Hydralazine PRN. - HLD. On statins. - Chronic temporal arteritis. On prednisone. - GERD. Per IM. On Pepcid. Maalox PRN. at 0711 [facility] #:[id number] END OF [id number] [place] [address] PATIENT NAME: MARY DALY ADMIT DATE: 07/30/22 ACCOUNT NO: [id number] ROOM NO: G.220 AGE: 66 REPORT TYPE: eELECTROCARDIOGRAM REPORT SEX: M ADMITTING PHYSICIAN:Anthony Loaiza MD ATTENDING PHYSICIAN:Anthony Loaiza MD Order: [id number] Test Reason : chest pain Test Date/Time Stamp: TueAug 03 2022 06:05:42 Blood Pressure : / mmHG Vent. Rate : 076 BPM Atrial Rate : 076 BPM P-R Int : 132 ms QRS Dur : 096 ms QT Int : 392 ms P-R-T Axes : 052 028 054 degrees QTc Int : 441 ms Normal sinus rhythm Low voltage QRS Nonspecific ST and T wave abnormality Abnormal ECG When compared with ECG of 03-AUG-2022 03:51, No significant change was found Confirmed by MD CHAPARRO GERARD ([id number]) on 08/03/2022 10:07:13 PM Referred By: Anthony Loaiza Confirmed by:DENTON CHAPARRO MD at 2207 PATIENT NAME: MARY DALY [id number] [place] [address] PATIENT NAME: MARY DALY ADMIT DATE: 07/30/22 ACCOUNT NO: [id number] ROOM NO: G.2207 AGE: 66 REPORT TYPE: eELECTROCARDIOGRAM REPORT SEX: M ADMITTING PHYSICIAN:Anthony Loaiza MD ATTENDING PHYSICIAN:Anthony Loaiza MD Order: [id number] Test Reason : P/S CABG Test Date/Time Stamp: TueAug 03 2022 03:51:14 Blood Pressure : / mmHG Vent. Rate : 075 BPM Atrial Rate : 075 BPM P-R Int : 140 ms QRS Dur : 090 ms QT Int : 416 ms P-R-T Axes : 029 021 040 degrees QTc Int : 464 ms Normal sinus rhythm Low voltage QRS Normal ECG When compared with ECG of 02-AUG-2022 15:55, No changes Confirmed by MD CHAPARRO GERARD ([id number]) on 08/03/2022 10:07:09 PM Referred By: Anthony Loaiza Confirmed by:DENTON CHAPARRO MD at 2207 PATIENT NAME: MARY DALY [id number] [address] PATIENT NAME: MARY DALY ADMIT DATE: 07/30/22 ACCOUNT NO: [id number] ROOM NO: G.2207 AGE: 66 REPORT TYPE: eELECTROCARDIOGRAM REPORT SEX: M ADMITTING PHYSICIAN:Anthony Loaiza MD ATTENDING PHYSICIAN:Anthony Loaiza MD Order: [id number] Test Reason : S/P CABG Test Date/Time Stamp: TueAug 02 2022 15:55:50 Blood Pressure : / mmHG Vent. Rate : 073 BPM Atrial Rate : 073 BPM P-R Int : 150 ms QRS Dur : 094 ms QT Int : 458 ms P-R-T Axes : 082 052 095 degrees QTc Int : 504 ms Normal sinus rhythm Nonspecific T wave abnormality Prolonged QT Abnormal ECG When compared with ECG of 01-AUG-2022 05:21, No changes Confirmed by MD CHAPARRO GERARD ([id number]) on 08/03/2022 10:06:54 PM Referred By: Sam Price Confirmed by:DENTON CHAPARRO MD at 2206 PATIENT NAME: MARY DALY 15:53:00 [facility] ([facility]) Critical Care Consult Note REPORT#:[id number] REPORT STATUS: Signed DATE:08/02/22 TIME: 1553 PATIENT: MARY DALY UNIT #: [id number] ROOM/BED: [address] : [address] AGE: 66 SEX: M ATTEND: Anthony Loaiza MD ADM AUTHOR: Sterling Hidalgo MD * ALL edits or amendments must be made on the electronic/computer document * History of Present Illness HPI Requesting clinician: Dr Kenneth Mccurdy Reason for consult: Coronary artery disease Status post CABG x5 and ILAA Elective ventilatory dependence for acute pulmonary insufficiency following major cardiothoracic surgery Acute blood loss anemia cardiogenic shock Hyperglycemia Chief complaint: Chest pain PCP: PCP: Albino Torre MD HPI: Patient was brought to the CVICU room #2207 status post CABG x5 and ligation of left atrial appendage, extubated in the OR, on epinephrine at 4 mcg and norepinephrine at 2 mcg. Patient was a grade 1 view easy intubation with 8.0 ET tube. Received rocuronium and etomidate for RSI. EF 55%. PA pressures 24 mmHg and cardiac index 2.2-2.6. Patient received intravenous calcium and magnesium intraoperatively. Had [...] for temporal arteritis since 2016. And received hydrocortisone 100 mg IV x1 dose. He is able to move all 4 extremities and follows commands. Left pleural output is 50 mL and mediastinal output is 35 mL. Patient has bilaterally symmetrical and equal pupils on both sides. He received parasternal block for pain control. Vital signs are stable with a heart rate of 80 sinus rhythm, blood pressure 128/ 57 mmHg, pulse ox 96% on facemask and PA pressures 28/12 mmHg. He is awake, interactive, following commands and moving all 4 extremities. Patient is full code. Mary Daly is a 66-year gentleman with past medical history significant for coronary artery disease status post PCI in the past, with most recent in July 07, 2022, history of temporal arteritis on chronic prednisone since 2016, diverticulitis, gout, hypertension, hyperlipidemia. Strong family history of CAD. Has history of diabetes. He presented with exertional shortness of breath with occasional chest pain over the past several weeks. Cardiac work-up and left heart cath revealed multivessel coronary disease. CT surgery was consulted for CABG evaluation and patient underwent surgery on 08/02/2022. History - Adult longitudinal Past medical history: Reports: Coronary artery disease, Hypertension, Dyslipidemia, Prior MD, Steroid use. Additional medical history: Temproal arteritis (2017) Additional surgical history: Colon resection 2008 secondary to diverticulitis C3 surgery Family history: Reports: Heart disease (brother). Alcohol use: Alcohol use (1-7 drinks per week) Drug use: Denies recreational drugs Smoking status for patients 13 years old or older: Never Smoker Medications: Home Medications: Medication Dose/Rte/Freq Days Qty Entered Last Max Daily Dose Reviewed ATORVASTATIN (LIPITOR) 10 MG PO DAILY 07/23/22 07/27/22 Strength: 10 MG TAB 1630 1406 CIPROFLOXACIN (CIPRO) 500 MG PO 07/23/22 07/27/22 Strength: 500 MG TAB DAILY PRN 1631 1406 DIVERTICULITIS CLOPIDOGREL (PLAVIX) 75 MG PO DAILY 07/23/22 07/27/22 Strength: 75 MG TAB 1631 1406 metroNIDAZOLE (FLAGYL) 500 MG PO 07/23/22 07/27/22 Strength: 500 MG TAB TID PRN 1631 1406 DIVERTICULITIS NEBIVOLOL (BYSTOLIC) 20 MG PO BID 07/23/22 07/27/22 Strength: 20 MG TAB 1631 1406 OMEPRAZOLE ER (PriLOSEC) 40 MG PO 07/23/22 07/27/22 Strength: 40 MG CAP.DR DAILY PRN ACID 1632 1406 REFLUX predniSONE 1 MG PO TID 07/23/22 07/27/22 Strength: 1 MG TAB 1633 1406 SILDENAFIL (VIAGRA) 100 MG PO 07/23/22 07/27/22 Strength: 100 MG TAB DAILY PRN PRN ED 1633 1406 SODIUM FLUORIDE 1 APPLIC TOPICAL 07/23/22 07/27/22 (PREVIDENT 5000 1.1% DAILY 1633 1406 DENTAL) Strength: 1.1 % GEL ASPIRIN 81 MG PO DAILY 07/23/22 07/27/22 Strength: 81 MG TAB.CHEW 1633 1406 POTASSIUM GLUCONATE 1 TAB PO DAILY 07/23/22 07/27/22 Strength: 550 MG (90 MG) 1634 1406 TAB CALCIUM CARBONATE 600 MG PO DAILY 07/23/22 07/27/22 (CALTRATE 600 MG) 1634 1406 Strength: 600 MG CALCIUM (1,500 MG) TAB CHOLECALCIFEROL 1,000 UNITS PO DAILY 07/23/22 07/27/22 (VITAMIN D3) 1634 1406 (VITAMIN D3) Strength: 25 MCG (1,000 UNIT) TAB ACETAMINOPHEN (TYLENOL) 500 MG PO 07/23/22 07/27/22 Strength: 500 MG TAB Q4H PRN PRN PAIN 1634 1406 IBUPROFEN (ADVIL) 200 MG PO 07/23/22 07/27/22 Strength: 200 MG TAB Q6H PRN PRN PAIN 1635 1406 FAMOTIDINE (PEPCID) 20 MG PO DAILY 07/23/22 07/27/22 Strength: 20 MG TAB 1635 1406 amLODIPine (NORVASC) 10 MG PO DAILY 07/23/22 07/27/22 Strength: 10 MG TAB 1635 1406 LOSARTAN (COZAAR) 50 MG PO DAILY 07/23/22 07/27/22 Strength: 50 MG TAB 1635 1406 Current [...] Sodium 2 GM PREOP ONCALL 08/02 0500 CKD (KEFZOL OR ANCEF) IV 08/02 2359 Vancomycin HCl 1,250 MG PREOP ONCALL 08/02 0500 CKD (VANCOMYCIN HCL) IV 08/02 2359 Sodium Chloride 250 ML (SODIUM CHLORIDE 0.9%) Autonomic Drugs Sig/Cory Start time Last Medication Dose Route Stop Time Status Admin Ipratropium [place] 500 MCG RTQ2H PRN PRN 08/05 1326 AC (ATROVENT) INH 09/04 1325 Ipratropium [place] 500 MCG RTQ4H 08/02 1600 AC (ATROVENT) INH 08/05 1326 Epinephrine 4 MG ASDIR 08/02 1330 AC (ADRENALIN CHLORIDE) IV 09/01 1329 Dextrose/Water 246 ML (DEXTROSE 5% WATER) Norepinephrine 250 ML TITRATE 08/02 1330 AC Bitartrate IV 09/01 1329 (NOREPINEPHRINE 8 MG/ NS 250 ML) Rocuronium [place] 0 .STK-MED ONE 08/02 0910 DC (ZEMURON) IV Epinephrine HCl 250 ML .STK-MED ONE 08/02 0908 DC (EPINEPHrine 4 mg/ IV D5W 250 mL) Norepinephrine 250 ML .STK-MED ONE 08/02 0908 DC Bitartrate IV (NOREPINEPHRINE 8 MG/ NS 250 [...] 0859 Clopidogrel Bisulfate 75 MG DAILY 08/03 09 AC (Plavix) PO 09/02 0859 Antithrombin III 0 .STK-MED ONE 08/02 1217 DC (Human) IV (Thrombate III) Heparin Sodium 0 .STK-MED ONE 08/02 1215 DC (HEPARIN SODIUM) .ROUTE Aminocaproic Acid 0 .STK-MED ONE 08/02 0907 DC (AMICAR) IV Heparin Sodium 0 .STK-MED ONE 08/02 0907 DC (HEPARIN SODIUM) .ROUTE Protamine Sulfate 0 .STK-MED ONE 08/02 0907 DC (PROTAMINE SULFATE) IV Heparin Sodium 0 .STK-MED ONE 08/02 0900 DC (HEPARIN SODIUM) .ROUTE Heparin Sodium 0 ASDIR PRN 07/31 1000 AC (HEPARIN 5000 UNITS/ IV 08/30 0959 ML) Heparin Sodium 500 ML ASDIR 07/31 1000 CKD 07/31 (Porcine) IV 08/30 0959 1043 (HEPARIN 25,000 [...] Nitroglycerin/ 250 ML .STK-MED ONE 08/02 0907 DC Dextrose IV (NITROGLYCERIN 50,000MCG/D5W 250ML) Lidocaine HCl [...] 08/02 (RANEXA 500MG TAB) PO 08/27 2058 0818 Hydralazine HCl 50 MG Q6H PRN PRN 07/28 1700 AC 07/28 (APRESOLINE) PO 08/27 1659 1840 Amlodipine Besylate 10 MG DAILY 07/28 09 AC 08/01 (NORVASC) PO 08/27 0859 0810 Losartan Potassium 50 MG DAILY 07/28 09 AC 08/01 (COZAAR) PO 08/27 0859 0811 Atorvastatin Calcium 10 MG BEDTIME 07/27 2315 DC 08/01 (LIPITOR) PO 08/26 2303 2044 Central Nervous System Agents Sig/Cory Start time Last Medication Dose Route Stop Time Status Admin Gabapentin 200 MG BID 08/02 2100 AC (NEURONTIN) PO 08/07 0901 Aspirin 81 MG DAILY 08/02 1926 AC (ASPIRIN) PO 09/01 1925 Acetaminophen 650 MG Q4H PRN PRN 08/02 1330 AC (TYLENOL) PO 09/01 1329 Acetaminophen 650 MG Q4H PRN PRN 08/02 1330 AC (TYLENOL) RECTAL 09/01 1329 Magnesium Sulfate 100 ML ASDIR PRN 08/02 1330 AC (MAGNESIUM SULFATE IV 09/01 1329 4GM/SWFI 100ML) [...] 200 MG PREOP ONCALL 08/02 0500 CKD 08/02 (NEURONTIN) PO 09/01 0459 0818 Aspirin [...] .Q20H 08/02 1330 AC (SODIUM CHLORIDE IV 07 1329 0.9%) Sodium Chloride 250 ML Q24H [...] AC 07/28 ose Sodium EACH EYE 08/27 (REFRESH TEARS) Gastrointestinal Drugs Sig/Cory Start time Last Medication Dose Route Stop Time Status Admin Bisacodyl 10 MG ONCE PRN 08/04 1200 AC (DULCOLAX) RECTAL 09/03 1159 Magnesium Hydroxide 30 ML ONCE PRN 08/04 1200 AC (MILK OF MAGNESIA) PO Polyethylene Glycol 17 GM DAILY 08/03 0900 AC (MIRALAX) PO 09/02 0859 Pantoprazole 40 MG DAILY@00 08/03 0600 AC (PROTONIX) PO 09/02 0559 Docusate Sodium 100 MG BID 08/02 2099 AC (COLACE) PO 09/01 2058 Sennosides 17.2 MG BEDTIME 08/02 2100 AC (Senna Lax 8.6 MG PO 09/01 2058 TABLET) Ondansetron HCl 4 MG Q6H PRN PRN 08/02 1330 AC (ZOFRAN) IV 09/01 1329 Ondansetron HCl 0 .STK-MED ONE 08/02 0910 DC (ZOFRAN) .ROUTE Docusate Sodium 100 MG BID 07/28 2100 DC 08/01 (COLACE) PO 08/27 Al Hydrox/Mg Hydrox/ 30 ML Q4H PRN PRN 07/28 1730 AC 07/28 Simethicone PO 08/27 1729 1831 (MYLANTA) Famotidine 20 MG DAILY 07/28 0900 AC 06/12 (PEPCID) PO 08/27 0859 0818 Hormones And Synthetic Substit Sig/Cory Start time Last Medication Dose Route Stop Time Status Admin Glucagon 1 MG ASDIR PRN 08/02 1330 AC (GLUCAGON) IM 09/01 1329 Insulin Human Regular 100 UNIT ASDIR 08/02 1330 CKD (HumuLIN R) IV 09/01 1329 Sodium Chloride 99 ML (SODIUM CHLORIDE 0.9%) Hydrocortisone 100 MG PREOP ONCALL 08/02 1200 CKD Sodium Succinate IV 09/01 1159 (Solu-CORTEF) Insulin [...] Coded Allergies: hydromorphone (From DILAUDID) (Severe, THROAT SWELLS 07/27/22) crab (Intermediate, ITCHING, CHILLS 07/27/22) doxepin (Intermediate, AFFECTS MEMORY, INSOMNIA 07/27/22) oyster extract (Intermediate, ITCHING 07/27/22) tamsulosin (Intermediate, ABNORMAL EJACULATION, FLU SYMPTOMS, FEVER 07/27/22) dexlansoprazole (UNKOWN 07/27/22) es[facility]lone ([facility]) (UNKNOWN 07/27/22) levofloxacin (UNKNOWN 07/27/22) meperidine (UNKNOWN 07/27/22) doxycycline (Mild, CRAMPS 07/27/22) diclofenac (DIARRHEA 07/27/22) Uncoded Allergies: CRAWFISH (Severe, THROAT SWELLS 07/23/22) Ambulatory status: Independent Review of Systems ROS Constitutional: Denies: fatigue, fever. Skin: Denies: diaphoresis, ecchymosis, itching. Allergy/Immun: Denies: hives, itching. Eyes: Denies: redness, discharge. ENT: Denies: nose bleeding, throat swelling, tongue swelling. Respiratory: Denies: SOB, wheezing. Cardiovascular: Reports: chest pain. Denies: PETERSEN (dyspnea on exertion), edema. GI: Denies: hematemesis, hematochezia. : Denies: [...] Meds + DC'd Last 24 Hrs Ipratropium [place] (ATROVENT) 500 MCG RTQ2H PRN PRN INH Cyanocobalamin (Vitamin B-12 500 mcg tab) 500 MCG DAILY PO Ferrous Sulfate (FERROUS SULFATE) 325 MG DAILY PO Bisacodyl (DULCOLAX) 10 MG ONCE PRN RECTAL Magnesium Hydroxide (MILK OF MAGNESIA) 30 ML ONCE PRN PO Atorvastatin Calcium (LIPITOR) 40 MG 2100 PO Clopidogrel Bisulfate (Plavix) 75 MG DAILY PO Polyethylene Glycol (MIRALAX) 17 GM DAILY PO Pantoprazole (PROTONIX) 40 MG DAILY@0600 PO Docusate Sodium (COLACE) 100 MG BID PO Gabapentin (NEURONTIN) 200 MG BID PO Metoprolol Tartrate (LOPRESSOR) 12.5 MG Q12HR PO Sennosides (Senna Lax 8.6 MG TABLET) 17.2 MG BEDTIME PO Aspirin (ASPIRIN) 81 MG DAILY PO Ipratropium [place] (ATROVENT) 500 MCG RTQ4H INH Amiodarone HCl (CORDARONE) 200 MG TID PO Sugammadex Sodium (BRIDION) 0 .STK-MED ONE IV (DC) Mupirocin (BACTROBAN 2% 22 GM OINTMENT) 1 APPLIC BID NASAL (DC) Acetaminophen (TYLENOL) 650 MG Q4H PRN PRN PO Acetaminophen (TYLENOL) 650 MG Q4H PRN PRN RECTAL Albumin Human (ALBUMINAR 25%) 25 GM ASDIR PRN IV Calcium Chloride (CALCIUM CHLORIDE) 1 GM ASDIR PRN IV Cefazolin Sodium (KEFZOL OR ANCEF) 6 GM ONCE ONE IV (CKD) Sodium Chloride (SODIUM CHLORIDE 0.9%) 500 ML Dextrose/Water (DEXTROSE 10% IN WATER) 125 ML ASDIR PRN IV (CKD) Dextrose/Water (DEXTROSE 10% IN WATER) 250 ML ASDIR PRN IV (CKD) Epinephrine (ADRENALIN CHLORIDE) 4 MG ASDIR IV Dextrose/Water (DEXTROSE 5% WATER) 246 ML Glucagon (GLUCAGON) 1 MG ASDIR PRN IM Insulin Human Regular (HumuLIN R) 100 UNIT ASDIR IV (CKD) Sodium Chloride (SODIUM CHLORIDE 0.9%) 99 ML Magnesium Sulfate (MAGNESIUM SULFATE 4GM/SWFI 100ML) 100 ML ASDIR PRN IV Magnesium Sulfate (MAGNESIUM SULFATE 2GM/SWFI 50ML) 50 ML ASDIR PRN IV Magnesium Sulfate/Dextrose (MAGNESIUM SULFATE 1GM/D5W 100ML) 100 ML ASDIR PRN IV Nitroglycerin/Dextrose (NITROGLYCERIN 50,000MCG/D5W 250ML) 250 ML ASDIR IV Norepinephrine Bitartrate (NOREPINEPHRINE 8 MG/NS 250 ML) 250 ML TITRATE IV Ondansetron [...] Sodium Chloride (SODIUM CHLORIDE 0.9%) 250 ML Q24H IV Antithrombin III (Human) (Thrombate III) 0 .STK-MED ONE IV (DC) Heparin Sodium (HEPARIN SODIUM) 0 .STK-MED ONE .ROUTE (DC) Hydrocortisone Sodium Succinate (Solu-CORTEF) 100 MG PREOP ONCALL IV ( CKD) Cefazolin Sodium (KEFZOL OR ANCEF) 0 .STK-MED ONE .ROUTE (DC) Sodium Chloride (SODIUM CHLORIDE 0.9%) 250 ML .STK-MED ONE IV (DC) Vancomycin HCl (Vancomycin 1,250 mg Inj (B2)) 0 .STK-MED ONE IV (DC) Lidocaine HCl (XYLOCAINE) 0 .STK-MED ONE .ROUTE (DC) Dexamethasone Sodium Phosphate (DECADRON) 0 .STK-MED ONE .ROUTE (DC) Esmolol HCl (BREVIBLOC) 0 .STK-MED ONE IV (DC) Etomidate (AMIDATE) 0 .STK-MED ONE IV (DC) Fentanyl Citrate (SUBLIMAZE) 0 .STK-MED ONE IV (DC) Lidocaine HCl (XYLOCAINE) 0 .STK-MED ONE .ROUTE (DC) Ondansetron HCl (ZOFRAN) 0 .STK-MED ONE .ROUTE (DC) Rocuronium [place] (ZEMURON) 0 .STK-MED ONE IV (DC) Epinephrine HCl (EPINEPHrine 4 mg/D5W 250 mL) 250 ML .STK-MED ONE IV (DC ) Insulin Human Regular (HumuLIN R 100 UNITS/NS 100ML) 100 ML .STK-MED ONE IV (DC) Norepinephrine Bitartrate (NOREPINEPHRINE 8 MG/NS 250 ML) 250 ML .STK-MED ONE IV (DC) Aminocaproic Acid (AMICAR) 0 .STK-MED ONE IV (DC) Calcium Chloride (CALCIUM CHLORIDE) 0 .STK-MED ONE IV (DC) Heparin Sodium (HEPARIN SODIUM) 0 .STK-MED ONE .ROUTE (DC) Nitroglycerin/Dextrose (NITROGLYCERIN 50,000MCG/D5W 250ML) 250 ML .STK-MED ONE IV (DC) Protamine Sulfate (PROTAMINE SULFATE) 0 .STK-MED ONE IV (DC) Magnesium Sulfate (MAGNESIUM SULFATE) 0 .STK-MED ONE .ROUTE (DC) Ropivacaine (NAROPIN 0.5% 150 MG/30mL) 0 .STK-MED ONE .ROUTE (DC) Albumin Human (ALBUMINAR-25%) 100 ML .STK-MED ONE IV (DC) Heparin Sodium (HEPARIN SODIUM) 0 .STK-MED ONE .ROUTE (DC) Sodium Chloride (SODIUM CHLORIDE 0.9%) 100 ML .STK-MED ONE IV (DC) Lidocaine HCl (XYLOCAINE IV) 0 .STK-MED ONE IV (DC) Magnesium Sulfate (MAGNESIUM SULFATE) 0 .STK-MED ONE IV (DC) Sodium Bicarbonate (SODIUM BICARBONATE) 0 .STK-MED ONE IV (DC) Phenylephrine HCl (MARK-SYNEPHRINE 10MG/ML AMP) 0 .STK-MED ONE .ROUTE (DC ) Papaverine HCl (PAPAVERINE HCL) 0 .STK-MED ONE IV (DC) Acetaminophen (TYLENOL EXTRA STRENGTH) 1,000 MG PREOP ONCALL PO (CKD) Cefazolin Sodium (KEFZOL OR ANCEF) 2 GM PREOP ONCALL IV (CKD) Gabapentin (NEURONTIN) 200 MG PREOP ONCALL PO (CKD) Metoprolol Tartrate (LOPRESSOR) 6.25 MG ONCE ONE PO (DC) Sodium Chloride (SODIUM CHLORIDE) 20 ML ASDIR IV Vancomycin HCl (VANCOMYCIN HCL) 1,250 MG PREOP ONCALL IV (CKD) Sodium Chloride (SODIUM CHLORIDE 0.9%) 250 ML Verapamil HCl (ISOPTIN) 16.6 MG .Q24H ONE IV (CKD) Heparin Sodium (Porcine) (HEPARIN SODIUM) 1,660 UNIT Sodium Bicarbonate (SODIUM BICARBONATE) 0.7 ML Nitroglycerin/Dextrose (NITROGLYCERIN 50MG/D5W 250ML) 8.3 MG Lactated Ringer's (LACTATED RINGERS) 949.5 ML Nebivolol (BYSTOLIC) 10 MG BEDTIME PO Nitroglycerin/Dextrose (NITROGLYCERIN 50,000MCG/D5W 250ML) 250 ML ASDIR IV Heparin Sodium [...] PO Acetaminophen (TYLENOL EXTRA STRENGTH) 500 MG Q4H PRN PRN PO Atropine Sulfate (ATROPINE SULFATE 0.1MG/ML SYR) 0.5 MG ASDIR PRN IV Sodium Chloride (SODIUM CHLORIDE 0.9%) 500 ML ASDIR PRN IV General appearance: awake, no acute distress, no respiratory distress Head/Eyes: atraumatic, clear cornea, normocephalic, PERRL ENT: moist mucosal membranes, normal nose, normal sinus Neck: no JVD, no masses or swelling Cardiovascular: normal capillary refill, normal heart sounds, regular rate and rhythm Respiratory: aerating well, clear to auscultation, symmetric expansion, no distress Abdomen: soft, non-tender, no distention, no guarding, no rebound Genitourinary: urinary catheter, no bladder distention Extremities: moves all, no clubbing, no cyanosis, no edema Neuro/CERAMIC PAINTER: no motor deficits Psychiatry: normal affect Results [...] - 100.0 mmHg) 93.1 254.6 *H 345.2 *H 417.5 *H ABG HCO3 (22.0 - 26.0 [...] (0.8 - 1.3 mg/dL) 0.9 0.8 0.8 0.7 L 0.7 L POC Glucose (mg/dL) (70 [...] (74 - 137 SEC) 107 588 H 666 H 486 H 407 H 08/02 08/02 1035 0427 Coagulation INR (0.8 - 1.2) 1.1 PTT ([place]) (25.0 - 39.5 Seconds) 57.6 H PT Patient/Control Mix (9.3 - 12.9 SECONDS) 11.8 Activated Coag Time (74 - 137 SEC) [...] % (Auto) (14.0 - 32.0 %) 29.5 Brooke % (Auto) (4.8 - 9.0 %) 10.5 H Eos % (Auto) (0.3 - 3.7 %) 2.9 Baso % (Auto) (0.0 - 2.0 %) 0.5 Neut # (Auto) (2.0 - 7.6 x10 3/uL) 5.68 Lymph # (Auto) (1.0 - 3.8 x10 3/uL) 2.98 Brooke # (Auto) (0.1 - 0.8 x10 3/uL) 1.06 H Eos # (Auto) (0.0 - 0.2 x10 3/uL) 0.29 H Baso # (Auto) (0.0 - 0.2 x10 3/uL) 0.05 Abs Immat Gran (auto) (0.00 - 0.03 x10 3/uL) 0.04 H Add Manual Diff NO Immature Gran % (0.0 - 2.0 %) 0.4 Nucleated RBC % (0 - 0 %) 0.0 Nucleated RBCs # (Man) (0.0 - 0.1 x10 3/uL) 0.00 Microbiology: 08/01 0848 NASAL: MSSA Surveillance Screen - ORD 06/11 0848 NASAL: MRSA DNA Surveillance Screen - ORD Radiology data: Recent Impressions: RADIOLOGY - XR CHEST 1 V 08/02 4926 Report Impression - Status: SIGNED Entered: 08/02/2022 8926 IMPRESSION: No retained surgical needle is seen. Impression By: Johann Childs M.D. Results: labs reviewed, vital signs reviewed, rhythm personally rev'd, x-ray personally reviewed, current med profile rev'd Diagnosis, Assessment Plan Diagnosis, Assessment Plan Consultants: cardiology, cardiovascular surgery Plan discussed with: consultants, nurse, interdisc care team Critical care time: Minutes: 40 Code Status/Resusc. Discussion Resuscitation discussion: Discussed with: family Code status: full code Free text DxA P: Problem List: Chest pain/Angina Exertional dyspnea Coronary artery disease Status post CABG x5 and ILAA Elective ventilatory dependence for acute pulmonary insufficiency following major cardiothoracic surgery Acute blood loss anemia cardiogenic shock Hyperglycemia Assessment and Plan: Patient was brought to the CVICU room #2207 status post CABG x5 and ligation of left atrial appendage, extubated in the OR, on epinephrine at 4 mcg and norepinephrine at 2 mcg. Patient was a grade 1 view easy intubation with 8.0 ET tube. Received rocuronium and etomidate for RSI. EF 55%. PA pressures 24 mmHg and cardiac index 2.2-2.6. Patient received intravenous calcium and magnesium intraoperatively. Had [...] for temporal arteritis since 2017. And received hydrocortisone 100 mg IV x1 dose. He is able to move all 4 extremities and follows commands. Left pleural output is 50 mL and mediastinal output is 35 mL. Patient has bilaterally symmetrical and equal pupils on both sides. He received parasternal block for pain control. Vital signs are stable with a heart rate of 80 sinus rhythm, blood pressure 128/ 57 mmHg, pulse ox 96% on facemask and PA pressures 28/12 mmHg. He is awake, interactive, following commands and moving all 4 extremities. Patient is full code. Mary Daly is a 66-year gentleman with past medical history significant for coronary artery disease status post PCI in the past, with most recent in July 07, 2022, history of temporal arteritis on chronic prednisone since 2017, diverticulitis, gout, hypertension, hyperlipidemia. Strong family history of CAD. Has history of diabetes. He presented with exertional shortness of breath with occasional chest pain over the past several weeks. Cardiac work-up and left heart cath revealed multivessel coronary disease. CT surgery was consulted for CABG evaluation and patient underwent surgery on 08/02/2022. Postop day 0 after CABG x5 and ILAA No acute events for reported in the OR Patient was easy intubation and induction using rocuronium and etomidate EF 55% PA pressures 24 mm of Hg Cardiac index 2.2 to 2.6 Patient is currently on epinephrine at 4 mcg and norepinephrine at 2 mcg that is being weaned Blood pressure is stable Patient received 1 L of crystalloid and 720 mL of Cell Saver No autologous transfusion or products were used Had 600 mL of urine output Chest tube output is minimal at 50 mL in the left pleural and 35 mL in the mediastinal chest tubes Patient is able to move all 4 extremities and follow command Pain control with parasternal block Patient will be on oral narcotic regimen for pain control Vital signs are stable with heart rate 80, blood pressure 128/57 mmHg and pulse ox 96% on facemask Follow chest tube output Chest x-ray was personally viewed by me and lines and tubes are in position Patient has been on chronic steroid therapy since 2017, received stress dose steroids with hydrocortisone 100 mg IV Avoid further steroid dosing unless evidence of adrenal crisis SCDs for DVT prophylaxis Sterling Hidalgo MD [facility] 08/02/2022 3.57 PM at 1626 [facility] #:[id number] END OF [id number]:[id number] [address] PATIENT NAME: MARY DALY ADMIT DATE: 07/30/22 ACCOUNT NO: [id number] ROOM NO: [facility] [place] AGE: 66 REPORT TYPE: OPERATIVE REPORT SEX: M ADMITTING PHYSICIAN:Anthony Loaiza MD ATTENDING PHYSICIAN:Anthony Loaiza MD OPERATION DATE: 08/02/2022 PREOPERATIVE DIAGNOSES: Coronary artery disease. POSTOPERATIVE DIAGNOSES: Coronary artery disease. PROCEDURES: 1. Coronary artery bypass graft surgery x4 (MITCHELL to LAD, saphenous vein to first marginal, saphenous vein to second marginal, saphenous vein to PDA). 2. Amputation of left atrial appendage. 3. Endoscopic vein harvest (left greater saphenous vein). 4. Posterior pericardiotomy. SURGEON: Ludin Mccurdy M.D. MANAGER OF INVESTIGATIONS: Mary Briggs. ANESTHESIOLOGIST: Dr. Brendon Copeland. ANESTHESIA: General endotracheal anesthesia. ESTIMATED BLOOD LOSS: 100 mL. INDICATIONS: Mr. Daly is a 66-year-old gentleman with severe triple-vessel coronary artery disease and slightly impaired LV function. After due preop counseling, he was brought to the operating room today for surgical revascularization. FINDINGS: 1. Vein was harvested from the left leg using endoscopic vein harvest technique. Vein was marginal quality, measuring about 3 to 4 mm in size. 2. Osteoporotic sternum. 3. Good quality MITCHELL measuring 2 mm in size with excellent flow. 4. Normal pericardium without any intrapericardial adhesions and minimal intrapericardial fluid. 5. LAD 2 mm, good quality artery. 6. First marginal 2 mm, good quality artery. 7. Second marginal 2 mm, good quality artery. 8. PDA 2 mm, good quality artery. 9. Left atrial appendage was amputated half a cm from the base. This was then repaired with two layers of running pledgeted 4-0 Prolene suture. 10. Posterior pericardiotomy was performed by excising 2 x 2 cm of the posterior pericardium. PATIENT NAME: MARY DALY PROCEDURE IN DETAIL: Mr. Daly was identified in the preoperative holding area and brought to the OR and placed supine on the operating table. After induction of general endotracheal anesthesia, Guardado catheter, radial arterial line, and antibiotics were placed. The patient's anterior torso and both lower extremities were prepped and draped in standard surgical fashion. Vein was harvested from the left leg using endoscopic vein harvest technique. Following harvesting, subcutaneous tissue was closed with 2-0 Vicryl and skin with 4-0 Vicryl. Simultaneously, median sternotomy was performed. The left internal mammary artery was harvested. The patient was heparinized. Pericardium was opened longitudinally. Pericardial well was created. Cardiopulmonary bypass was instituted using ascending aorta [...] in size. Arteriotomy was performed with a [place]carora blade and extended with Richard scissors. A segment of previously harvested reverse saphenous vein was anastomosed in end-to-side manner using 7-0 Prolene suture. Vein graft to PDA was brought along the right side of the heart and sized. Aortotomy was performed on the right aspect of the aorta using 4 mm punch. Proximal anastomosis of the PDA graft was then performed using running 6-0 Prolene suture. Next, the left atrial appendage was amputated half a centimeter from the base. This was then repaired with two layers of running pledgeted 4-0 Prolene suture. Next, the second marginal was explored. This was a good quality artery measuring 2 mm in size. Arteriotomy was performed with a [place] blade and extended with Richard scissors. A segment of previously harvested reverse saphenous vein was anastomosed in end-to-side manner using manner using 7-0 Prolene suture. Vein graft to second marginal was brought along the left side of the heart and sized. Aortotomy was performed on the left aspect of the aorta using 4 mm punch. Proximal anastomosis of the second marginal graft was then performed using running 6-0 Prolene suture. Next, the first marginal was explored. This was a good quality artery, measuring 2 mm in size. Arteriotomy was performed with a [place] blade and extended with Richard scissors. A segment of previously harvested reverse saphenous vein was anastomosed in an end-to-side manner using 7-0 Prolene suture. Vein graft to the first marginal was brought along the left side of the heart and sized. Aortotomy was performed on the left aspect of the aorta using 4 mm punch. Proximal anastomosis of the first marginal graft was then performed using 6-0 Prolene suture. Rewarming was commenced at this stage. Next, the diagonal was explored. This was smallish artery and hence was not grafted. Finally, LAD was explored. This was good quality artery, measuring 2 mm in size. Arteriotomy was performed with a [place]car[place] blade and extended with Richard scissors. MITCHELL was anastomosed in end-to-side manner using running 8-0 Prolene suture. MITCHELL pedicle was tacked to epicardium using two interrupted 6-0 Prolene sutures. A slit was made in the pericardium on the left aspect, so as to accommodate the MITCHELL. Careful de-aeration was performed and the crossclamp was released. One ventricular wire was placed. A 28-British chest tube was placed in the mediastinum, 28-angled chest tube was placed in the left pleural space. Once the patient was at temperature, he was weaned off cardiopulmonary bypass with minimal inotropic support. Heparin was reversed with protamine. Decannulation was uneventful. After confirming hemostasis, the chest was closed in layers using stainless steel wires for the sternum, #1 Vicryl for the fascia, 2-0 Vicryl for subcutaneous tissue and 4-0 Vicryl for the skin. The patient was transferred to intensive care unit PATIENT NAME: MARY DALY intubated in stable condition. Dictated By: Ludin Mccurdy MD Date Dictated: 08/02/2022 14:31:40 Date Transcribed: 08/02/2022 15:25:55 JURGEN Da Silva #: [id number] Receipt ID: [id number] Authenticated and Edited by Kenneth Mccurdy MD On 08/04/22 9:28:47 AM at 0931 PATIENT NAME: MARY DALY 14:25:00 [facility] ([facility]) Brief Op Note REPORT#:[id number] REPORT STATUS: Signed DATE:08/02/22 TIME: 1424 PATIENT: MARY DALY UNIT #: [id number] ROOM/BED: [place] [address] : 53 AGE: 66 SEX: M ATTEND: Anthony Loaiza MD ADM AUTHOR: Ludin Mccurdy MD * ALL edits or amendments must be made on the electronic/computer document * See Addendum Op/Inv Proc Note - Brief Pre-procedure diagnosis: CAD Post-procedure diagnosis: same as pre procedure dx Procedures performed: CABG x 4 (MITCHELL-LAD, SVG-OM1, SVG-OM2, SVG-PDA) ALAA EVH (LGSV) Posterior pericardiotomy Primary Surgeon: Calli [employer]orer [employer](s): Brigitte Findings: LAD-2mm Complications: none Estimated blood loss in ml's: 100 cc Specimens removed/altered: XIMENA at 1427 Addendum 1: 08/02/22 1710 by Mary Briggs MD I assisted Dr Mccurdy with the tyson features of this operation including coronary dissection, CABGs and LAAA Mary Briggs MD at 1711 RPT #:[id number] END OF [id number] 11:51:[id number] [place] [address] PATIENT NAME: MARY DALY ADMIT DATE: 07/30/22 ACCOUNT NO: [id number] ROOM NO: [id number] AGE: 66 REPORT TYPE: PULMONARY FUNCTION REPORT SEX: M ADMITTING PHYSICIAN:Anthony Loaiza MD ATTENDING PHYSICIAN:Anthony Loaiza MD STUDY DATE: 08/02/2022 SPIROMETRY: 1. FVC is 65% of predicted. FEV1 is 74% of predicted. Ratio is 84. 2. Spirometry is suggestive of interstitial lung disease,s restrictive impairment. If clinically needed, I recommend full PFT. Dictated By: Freddy Ji MD Date Dictated: 08/02/2022 11:51:07 Date Transcribed: 08/02/2022 12:06:12 /CHIQUI Da Silva #: [id number] Receipt ID: [id number] Authenticated by FREDDY JI MD On 08/06/2022 01:31:51 PM at 0131 PATIENT NAME: MARY DALY 08:40:00 [facility] ([facility]) Hospitalist Progress Note REPORT#:[id number] REPORT STATUS: Signed DATE:08/02/22 TIME: 08 PATIENT: MARY DALY UNIT #: [id number] ROOM/BED: [place] [address] : 53 AGE: 66 SEX: M ATTEND: Anthony Loaiza MD ADM AUTHOR: Luther Martin ANESTHESIOLOGIST * ALL edits or amendments must be made on the electronic/computer document * Luther Martin 08/02/22 0840: Subjective Chief complaint: NPO for CABG Nidhi had a episode of Severe CP. He is on heparin drip. His CP is improved. No fever, chills. NO N/v/d. Review of Systems Constitutional: Reports: fatigue, generalized weakness. Eyes: Denies: discharge, visual loss/blurred, eye pain, photophobia. Respiratory: Denies: hemoptysis, parox nocturnal dyspnea, pleurisy, pleuritic pain, productive cough (sputum), wheezing. Cardiovascular: Denies: PETERSEN (dyspnea on exertion), orthopnea, palpitations. GI: Denies: dysphagia, GERD, hematochezia. : Denies: flank pain, hematuria, testicular pain, urgency, urinary retention. Musculoskeletal: Denies: extremity pain, joint pain, lumbar pain, myalgias. Heme: Denies: bleeding, bruising. Psych: Denies: anxiety, change in mental status, hostile, stress. Objective General VS/I O: Vital Signs: Date Time Temp Pulse Resp B/P B/P Pulse O2 O2 Flow FiO2 Mean Ox Delivery Rate 08/02 0700 [...] Papaverine HCl (PAPAVERINE HCL) 0 .STK-MED ONE IV (DC) Acetaminophen (TYLENOL EXTRA STRENGTH) 1,000 MG PREOP ONCALL PO (CKD) Cefazolin Sodium (KEFZOL OR ANCEF) 2 GM PREOP ONCALL IV (CKD) Gabapentin (NEURONTIN) 200 MG PREOP ONCALL PO (CKD) Metoprolol Tartrate (LOPRESSOR) 6.25 MG ONCE ONE PO (DC) Sodium Chloride (SODIUM CHLORIDE) 20 ML ASDIR IV Vancomycin HCl (VANCOMYCIN HCL) 1,250 MG PREOP ONCALL IV (CKD) Sodium Chloride (SODIUM CHLORIDE 0.9%) 250 ML Verapamil HCl (ISOPTIN) 16.6 MG .Q24H ONE IV (CKD) Heparin Sodium (Porcine) (HEPARIN SODIUM) 1,660 UNIT Sodium Bicarbonate (SODIUM BICARBONATE) 0.7 ML Nitroglycerin/Dextrose (NITROGLYCERIN 50MG/D5W 250ML) 8.3 MG Lactated Ringer's (LACTATED RINGERS) 949.5 ML Magnesium Sulfate (MAGNESIUM SULFATE 2GM/SWFI 50ML) 50 ML ONCE ONE IV ( DC) Nebivolol (BYSTOLIC) 10 MG BEDTIME PO Nitroglycerin/Dextrose (NITROGLYCERIN 50,000MCG/D5W 250ML) 250 ML ASDIR IV Heparin Sodium [...] PO Acetaminophen (TYLENOL EXTRA STRENGTH) 500 MG Q4H PRN PRN PO Atropine Sulfate (ATROPINE SULFATE 0.1MG/ML SYR) 0.5 MG ASDIR PRN IV Sodium Chloride (SODIUM CHLORIDE 0.9%) 500 ML ASDIR PRN IV Dietitian nutrition assessment The data set between the solid lines has been imported from the dietitian's assessment. BMI Calculated: 27.0 [...] soft Genitourinary: no bladder distention, no flank pain, no urinary catheter Extremities: no calf tenderness, no clubbing, no cyanosis Musculoskeletal: no CVA tenderness, no muscle spasm Neuro/CERAMIC PAINTER: alert, oriented X 3, CNII-XII intact Skin: [...] PT Patient/Control Mix (9.3 - 12.9 SECONDS) 11.8 Laboratory Tests 08/02 426 Hematology WBC (4.5 [...] % (Auto) (14.0 - 32.0 %) 29.5 Brooke % (Auto) (4.8 - 9.0 %) 10.5 H Eos % (Auto) (0.3 - 3.7 %) 2.9 Baso % (Auto) (0.0 - 2.0 %) 0.5 Neut # (Auto) (2.0 - 7.6 x10 3/uL) 5.68 Lymph # (Auto) (1.0 - 3.8 x10 3/uL) 2.98 Brooke # (Auto) (0.1 - 0.8 x10 3/uL) 1.06 H Eos # (Auto) (0.0 - 0.2 x10 3/uL) 0.29 H Baso # (Auto) (0.0 - 0.2 x10 3/uL) 0.05 Abs Immat Gran (auto) (0.00 - 0.03 x10 3/uL) 0.04 H Add Manual Diff NO Immature Gran % (0.0 - 2.0 %) 0.4 Nucleated RBC % (0 - 0 %) 0.0 Nucleated RBCs # (Man) (0.0 - 0.1 x10 3/uL) 0.00 Results: labs reviewed, vital signs reviewed, vital signs stable, current med profile rev'd Treatment Prophylaxis Treatment Prophylaxis Oxygen: room air Diagnosis, Assessment Plan Consultants: cardiology, cardiovascular surgery Code status: full code Plan discussed with: patient, admitting physician, consultants, nurse Free Text DxA P Notes Free text DxA P notes: Assessment and Plan: - Multivessel CAD. - CP due to CAD. - Hypomagnesemia. - HX of HTN/HLD and CAD. Plan: CVICU. NPO for CABG. He is on Heparin drip. Pain meds. Antiemetics. Continue BB, Lipitor and ASA. Follow labs and repalce as needed. Monitor. Anthony Loaiza 08/02/222: Attestations Physician Attestation Agree w/findings plan: Patient seen and examined, I agree with the findings and plans as discussed with and documented by Luther Montiel NP at 0843 at 8507 [facility] #:[id number] END OF [id number] 09:17:00 [facility] ([facility]) Hospitalist Progress Note REPORT#:[id number] REPORT STATUS: Signed DATE:08/01/22 TIME: 916 PATIENT: MARY DALY UNIT #: [id number] ROOM/BED: [place] [address] : 53 AGE: 66 SEX: M ATTEND: Anthony Loaiza MD ADM AUTHOR: Luther Martin NP * ALL edits or amendments must be made on the electronic/computer document * Luther Martin 08/01/22 0917: Subjective Chief complaint: He had a episode of Severe CP. He is on heparin drip. His CP is improved. No fever, chills. NO N/v/d. Hr stable. BP is stable. Review of Systems Constitutional: Reports: fatigue, generalized weakness. Allergy/Immun: Denies: anaphylaxis, hives, itching, rhinorrhea. Respiratory: Denies: hemoptysis, parox nocturnal dyspnea, pneumonia. Cardiovascular: Denies: PETERSEN (dyspnea on exertion), edema, orthopnea, palpitations, parox nocturnal dyspnea. GI: Denies: anorexia, constipation, diarrhea, dysphagia, hematochezia, nausea. : Denies: flank pain, hematuria, testicular pain. Musculoskeletal: Denies: extremity pain, joint pain, myalgias, neck pain. Endocrine: Denies: heat intolerance, polydipsia. Neuro: Denies: change in LOC, confusion, focal weakness, gait problem, lightheaded, seizure. Objective General VS/I O: Vital Signs: Date Time Temp Pulse Resp B/P B/P Pulse O2 O2 Flow FiO2 Mean Ox Delivery Rate 08/01 0700 [...] Sodium (KEFZOL OR ANCEF) 2 GM PREOP ONCALL IV (CKD) Gabapentin (NEURONTIN) 200 MG PREOP ONCALL PO (CKD) Metoprolol Tartrate (LOPRESSOR) 6.25 MG ONCE ONE PO Sodium Chloride (SODIUM CHLORIDE) 20 ML ASDIR IV Vancomycin HCl (VANCOMYCIN HCL) 1,250 MG PREOP ONCALL IV (CKD) Sodium Chloride (SODIUM CHLORIDE 0.9%) 250 ML Verapamil HCl (ISOPTIN) 16.6 MG .Q24H ONE IV (CKD) Heparin Sodium (Porcine) (HEPARIN SODIUM) 1,660 UNIT Sodium Bicarbonate (SODIUM BICARBONATE) 0.7 ML Nitroglycerin/Dextrose (NITROGLYCERIN 50MG/D5W 250ML) 8.3 MG Lactated Ringer's (LACTATED RINGERS) 949.5 ML Magnesium Sulfate (MAGNESIUM SULFATE 2GM/SWFI 50ML) 50 ML ONCE ONE IV ( DC) Nebivolol (BYSTOLIC) 10 MG BEDTIME PO Nitroglycerin/Dextrose (NITROGLYCERIN 50,000MCG/D5W 250ML) 250 ML ASDIR IV Heparin Sodium (HEPARIN 5000 UNITS/ML) 0 ASDIR PRN IV Heparin Sodium (Porcine) (HEPARIN 25,000 UNITS/ 1/2NS 500ML) 500 ML ASDIR IV (CKD) Heparin Sodium (HEPARIN 5000 UNITS/ML) 4,000 UNIT ONCE STA IV (DC) Mupirocin (BACTROBAN 2% [...] PO Acetaminophen (TYLENOL EXTRA STRENGTH) 500 MG Q4H PRN PRN PO Atropine Sulfate (ATROPINE SULFATE 0.1MG/ML SYR) 0.5 MG ASDIR PRN IV Sodium Chloride (SODIUM CHLORIDE 0.9%) 500 ML ASDIR PRN IV Dietitian nutrition assessment The data set between the solid lines has been imported from the dietitian's assessment. BMI Calculated: 27.0 [...] soft Genitourinary: no bladder distention, no flank pain, no urinary catheter Extremities: no calf tenderness, no clubbing, no cyanosis Musculoskeletal: no CVA tenderness, no muscle spasm Neuro/CERAMIC PAINTER: alert, oriented X 3, CNII-XII intact Skin: [...] (Auto) (14.0 - 32.0 %) 29.2 25.7 Brooke % (Auto) (4.8 - 9.0 %) 9.5 H 11.8 H Eos % (Auto) (0.3 - 3.7 %) 2.1 2.2 Baso % (Auto) (0.0 - 2.0 %) 0.4 0.6 Neut # (Auto) (2.0 - 7.6 x10 3/uL) 5.90 6.30 Lymph # (Auto) (1.0 - 3.8 x10 3/uL) 2.94 2.73 Brooke # (Auto) (0.1 - 0.8 x10 3/uL) 0.96 H 1.25 H Eos # (Auto) (0.0 - 0.2 x10 3/uL) 0.21 H 0.23 H Baso # (Auto) (0.0 - 0.2 x10 3/uL) 0.04 0.06 Abs Immat Gran (auto) (0.00 - 0.03 x10 3/uL) 0.02 0.04 H Add Manual Diff NO NO Immature Gran % (0.0 - 2.0 %) 0.2 0.4 Nucleated RBC % (0 - 0 %) 0.0 0.0 Nucleated RBCs # (Man) (0.0 - 0.1 x10 3/uL) 0.00 0.00 Results: labs reviewed, vital signs reviewed, vital signs stable, current med profile rev'd Treatment Prophylaxis Treatment Prophylaxis Oxygen: room air Diagnosis, Assessment Plan Consultants: cardiology, cardiovascular surgery Code status: full code Plan discussed with: patient, admitting physician, consultants, nurse Free Text DxA P Notes [...] with and documented by Luther Montiel NP at 0919 at 1836 RPT #:[id number] END OF [id number] 08:41:00 [facility] Cardiothoracic Surgery Prog REPORT#:[id number] REPORT STATUS: Signed DATE:08/01/22 TIME: 08 PATIENT: MARY DALY UNIT #: [id number] ROOM/BED: [place] [address] : 53 AGE: 66 SEX: M ATTEND: Anthony Loaiza MD ADM AUTHOR: Rosalind Mendez Physic * ALL edits or amendments must be made on the electronic/computer document * Subjective Chief complaint: Chest Pains, [...] rate rhythm Respiratory: aerating well, clear to auscultation Abdomen: soft, non-tender Extremities: dry, moves all Musculoskeletal: full range of motion, painless range of motion Neuro/CERAMIC PAINTER: alert, oriented X 3 Skin: dry, intact Diagnosis, Assessment Plan Free Text A P: This is a 66-year gentleman with past medical history of coronary artery disease status post PCI in the past, with most recent in July 07, 2022, history of temporal arteritis on chronic prednisone since 2017, diverticulitis, gout, hypertension, hyperlipidemia. The patient reports a history of exertional shortness of breath with occasional chest pain over the past several weeks. 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 This revealed multivessel CAD. CV surgery consulted for evaluation for coronary bypass graft. The patient reports a history of diabetes, diet controlled for the past [...] PCI with most recent June 2022, hold Plavix in preparation for surgery. 2. Hypertension 3. Hyperlipidemia 4. Temporal arteritis in 2017 Continues on prednisone 3 mg We will begin work-up for coronary bypass graft surgery. Patient was seen in exam by Dr. Mccurdy. Further recommendations to follow as work-up underway Thank you for this kind consultation 07/29/22 Patient resting comfortable, denies complaint Patient received Plavix 75 mg on 07/28/2022 , will obtain repeat platelet response to Plavix test in the a.m. Respiratory: On room air Cardiac: Remains sinus rhythm Carotid Doppler shows no significant carotid artery stenosis Vein mapping complete Labs reviewed shows WBCs elevated 16 Urinalysis negative Neurology consult for history of temporal arteritis, appreciate input We will repeat platelet response to Plavix. Possibly plan for CABG in the a.m. Patient was seen and examined by 07/30/22 Patient resting comfortable. Denies complaints. Respiratory: On room air 100% Cardiac: Sinus rhythm Last recieved plavix on 07/28/22, Platelet response to PLavix this am= 157 Will plan for surgery next week. Neurology eval underway Patient was seen and examined by Dr. Mccurdy Work-up for coronary artery bypass graft surgery undergoing. Timing of surgery pending 07/31/22 Patient resting comfortable. Denies complaints. Respiratory: On room air 100% Cardiac: Sinus rhythm Patient recieved plavix on 07/28/22, Will repeat platelet response on Tuesday. Will plan for surgery next week Neurology following. Continue steroids for Hx of temporal arteritis. Carotids show no significant dz, CT head complete No flow-limiting stenosis or occlusion along major intracranial arterial vessels. No acute intracranial process nor bony injury UA negative, HGa1c 6.2 Patient was seen and examined by Dr. Mccurdy. Plan repeat platelet response to Plavix in [...] Work-up for coronary artery bypass graft is complete. Plan for surgery tomorrow. Patient was seen and examined by Dr. Mccurdy. Plan of care discussed with team Consultants: cardiology, cardiovascular surgery at 0848 at 1112 RPT #:[id number] END OF [id number] 08:33:00 [facility] ([facility] Cardiology Progress Note REPORT#:[id number] REPORT STATUS: Signed DATE:08/01/22 TIME: 08 PATIENT: MARY DALY UNIT #: [id number] ROOM/BED: [place] [address] : 53 AGE: 66 SEX: M ATTEND: Anthony Loaiza MD ADM AUTHOR: Sharri Noonan NP * ALL edits or amendments must be made on the electronic/computer document * Subjective Chief complaint: no chest pain today Objective General VS/I O: Laboratory Tests 08/01/22 0410: [Embedded Image Not Available] 07/31/22 1019: [Embedded Image Not Available] Current Medications Sig/Cory Start time Last Medication Dose Route Stop Time Status Admin Acetaminophen 1,000 MG PREOP ONCALL 08/02 0500 CKD PO 09/01 0459 Cefazolin Sodium 2 GM PREOP ONCALL 08/02 0500 CKD IV 08/02 2359 Gabapentin 200 MG PREOP [...] Sodium 500 ML ASDIR 07/31 1000 CKD 07/31 (Porcine) IV 08/30 0959 1043 Mupirocin 1 APPLIC BID 07/30 2100 AC 08/01 NASAL 08/04 0901 0812 Carboxymethylcellul- 1 DROP QID PRN 07/28 2200 AC 07/28 ose Sodium EACH EYE 08/27 2158 2205 Docusate Sodium 100 MG BID 07/28 2100 AC 08/01 PO 08/27 205 08 Ranolazine 500 MG Q12HR 07/28 2100 AC 08/01 PO 08/27 2059 0810 Al Hydrox/Mg Hydrox/ 30 ML Q4H PRN PRN 07/28 1730 AC 07/28 Simethicone PO 08/27 1729 1831 Hydralazine HCl 50 MG Q6H PRN PRN / 1700 AC 07/28 PO 08/27 1659 1840 Amlodipine Besylate 10 MG DAILY 07/28 899 AC 08/01 PO 08/27 0859 0810 Aspirin 81 MG DAILY 07/28 899 AC 08/01 PO 08/27 0859 0809 Famotidine 20 MG DAILY 07/28 899 AC 08/01 PO 08/27 0859 0810 Losartan Potassium 50 MG DAILY 07/28 899 AC 08/01 PO 08/27 0859 0811 Prednisone 2 MG C BK 07/29 799 AC 08/01 PO 08/27 0759 0809 Atorvastatin Calcium 10 MG BEDTIME 07/27 2315 AC 07/31 PO 08/26 2303 2034 Prednisone 1 [...] O2 Flow FiO2 Mean Ox Delivery Rate 08/01 1500 [...] 0.87 Weight (kg): 85.300 Status post: 07/27 [facility] Physical Exam General appearance: alert, awake, oriented, no acute distress, pleasant Head/Eyes: atraumatic, PERRL ENT: moist mucosal membranes Neck: full range of motion, no JVD Cardiovascular: CV assessment: regular rate and rhythm, no murmur Respiratory: decreased breath sounds, no distress Abdomen: soft, non-tender, normal bowel sounds, no distention, no guarding Genitourinary: no flank pain, no urinary catheter Upper extremity: UE assessment: normal temperature, no edema Lower extremity: LE assessment: normal temperature, no edema Neuro/CERAMIC PAINTER: alert, oriented X 3, normal speech Skin: dry, intact Psychiatry: normal affect Diagnosis, Assessment Plan Consultants: cardiology, cardiovascular surgery Free Text DxA P Notes Free Text DxA P Notes: Mr. Daly is a pleasant 66 y/o male w/ PMHx: CAD s/p PCI, HTN, HLD, T2DM, GERD , temporal arteritis (on prednisone) presented to [facility] for elective PCI. - CAD. s/p LHC: [...] IM. Advised cessation. MDM per Dr. Osorio at 1639 at 2242 RPT #:[id number] END OF [id number] [place] [address] PATIENT NAME: MARY DALY ADMIT DATE: 07/30/22 ACCOUNT NO: [id number] ROOM NO: [facility] [place] AGE: 66 REPORT TYPE: eELECTROCARDIOGRAM REPORT SEX: M ADMITTING PHYSICIAN:Anthony Loaiza MD ATTENDING PHYSICIAN:Anthony Loaiza MD Order: [id number] Test Reason : PCI Postprocedure Test Date/Time Stamp: TueJul 31 2022 13:44:55 Blood Pressure : / mmHG Vent. Rate : 057 BPM Atrial Rate : 057 BPM P-R Int : 136 ms QRS Dur : 088 ms QT Int : 452 ms P-R-T Axes : 020 014 035 degrees QTc Int : 439 ms Sinus bradycardia Otherwise normal ECG When compared with ECG of 28-JUL-2022 07:34, No significant change was found Confirmed by KEVIN OSORIO MD ([id number]) on 07/31/2022 5:48:14 PM Referred By: Sam Price Confirmed by:KEVIN OSORIO MD at 1743 PATIENT NAME: MARY DALY 12:06:00 [facility] ([facility]) Cardiology Progress Note REPORT#:[id number] REPORT STATUS: Signed DATE:07/31/22 TIME: 1206 PATIENT: MARY DALY UNIT #: [id number] ROOM/BED: [place] [address] : 53 AGE: 66 SEX: M ATTEND: Anthony Loaiza MD ADM AUTHOR: Sharri Noonan NP * ALL edits or amendments must be made on the electronic/computer document * Subjective Chief complaint: reports chest [...] Sodium 500 ML ASDIR 07/31 1000 CKD 07/31 (Porcine) IV 08/30 0959 1043 Heparin Sodium 4,000 UNIT ONCE STA 07/31 0947 DC 07/31 IV 07/31 0948 1042 Albuterol Sulfate [...] 07/28 ose Sodium EACH EYE 08/27 2159 2205 Docusate Sodium 100 MG BID 07/28 2100 AC 07/31 PO 08/27 2059 0811 Ranolazine 500 MG Q12HR 07/28 2100 AC 07/31 PO 08/27 2059 0811 Al Hydrox/Mg Hydrox/ 30 ML Q4H PRN PRN 07/28 1730 AC 07/28 Simethicone PO 08/27 1729 1831 Hydralazine HCl 50 MG Q6H PRN PRN 07/28 1700 AC 07/28 PO 08/27 1659 1840 Amlodipine Besylate 10 MG DAILY 07/28 899 AC 07/31 PO 08/27 0859 0812 Aspirin 81 MG DAILY 07/28 899 AC 07/31 PO 08/27 0859 0810 Famotidine 20 MG DAILY 07/28 899 AC 07/31 PO 08/27 0859 0811 Losartan Potassium 50 MG DAILY 07/28 899 AC 07/31 PO 08/27 0859 0811 Prednisone 2 MG C BK 07/29 799 AC 07/31 PO 08/27 0759 0810 Atorvastatin Calcium 10 MG BEDTIME 07/27 2315 AC 07/30 PO 08/26 2303 2044 Nebivolol 20 MG BEDTIME 07/27 2315 AC 07/30 PO 08/27 2059 204 Prednisone 1 MG BEDTIME 07/27 2315 [...] 81 94 07/31 0100 50 13 95 10 0000 54 15 94 07/30 2310 55 21 130/74 98 95 07/30 2310 36.5 55 14 130/74 0.0 96 Room air / 2046 53 21 148/77 107 96 / 1900 54 17 95 07/30 1851 36.4 59 14 128/68 0.0 95 Room air 07/30 1618 36.4 56 18 149/82 104.3 99 PATIENT WEIGHT: Weight (lb): 190 Weight (oz): 14.73 Weight (kg): 86.600 Status post: 07/27 [facility] Physical Exam General appearance: alert, awake, oriented, no acute distress, pleasant Head/Eyes: atraumatic, PERRL ENT: moist mucosal membranes Neck: full range of motion, no JVD Cardiovascular: CV assessment: regular rate and rhythm, no murmur Respiratory: decreased breath sounds, no distress Abdomen: soft, non-tender, normal bowel sounds, no distention, no guarding Genitourinary: no flank pain, no urinary catheter Upper extremity: UE assessment: normal temperature, no edema Lower extremity: LE assessment: normal temperature, no edema Neuro/CERAMIC PAINTER: alert, oriented X 3, normal speech Psychiatry: normal affect Diagnosis, Assessment Plan Consultants: cardiology, cardiovascular surgery Free Text DxA P Notes Free Text DxA P Notes: Mr. Daly is a pleasant 66 y/o male w/ PMHx: CAD s/p PCI, HTN, HLD, T2DM, GERD , temporal arteritis (on prednisone) presented to [facility] for elective PCI. - CAD. s/p [facility]: multivessels disease Continue BB, statins, ASA, and Ranexa. on telemtry EF 55 to 60% with grade 1 diastolic dysfunction CABG next week Pt reports chest pain this morning, heparin gtt started stat EKG- no acute ischemic changes noted later nurse calls to report worsening chest pain, order to tx pt to CCU/CVICU for nitro gtt ordered another platelet response test discussed with CTS HR 50s- decrease bystolic to 10mg daily- hold for HR <55 - HTN. BP controlled. On Bystolic, Norvasc and Losartan. Hydralazine PRN. - HLD. On statins. - Chronic temporal arteritis. On prednisone. - GERD. Per IM. On Pepcid. Add Maalox PRN. - ETOH. Per IM. Advised cessation. MDM per Dr. Osorio at 1619 at 2243 RPT #:[id number] END OF [id number] 09:26:00 [facility] Hospitalist Progress Note REPORT#:[id number] REPORT STATUS: Signed DATE:07/31/22 TIME: 925 PATIENT: MARY DALY UNIT #: [id number] ROOM/BED: 2203-1 : 53 AGE: 66 SEX: M ATTEND: Anthony Loaiza MD ADM AUTHOR: Luther Martin ANESTHESIOLOGIST * ALL edits or amendments must be made on the electronic/computer document * Luther Martin 07/31/22 0926: Subjective Chief complaint: He is waiting for CABG. NO CP, fever, chills. NO N/v/d. Hr stable. BP is stable. Review of Systems Constitutional: Reports: fatigue, generalized weakness. Allergy/Immun: Denies: anaphylaxis, itching, sneezing. Respiratory: Denies: hemoptysis, parox nocturnal dyspnea, pleuritic pain, SOB. Cardiovascular: Denies: chest pain, edema, orthopnea, palpitations. GI: Denies: abdominal pain, constipation, diarrhea, dysphagia, GERD, melena. : Denies: dysuria, frequency, penile lesion, urgency. Musculoskeletal: Denies: extremity pain, lumbar pain, myalgias. Endocrine: Denies: heat intolerance, polydipsia, polyuria. Neuro: Denies: change in LOC, focal weakness, headache, numbness, seizure, spinning sensation. Objective General VS/I O: Vital Signs: Date Time Temp Pulse Resp B/P B/P Pulse O2 O2 Flow FiO2 Mean Ox Delivery Rate 07/31 0659 [...] I O ending at 0700: 07/31 0700 0609 1900 Intake Total 250 800 Output Total 750 Balance 250 50 Intake, Oral 250 800 Number 2 Bowel Movements Number Voids 3 2 Output, Urine 750 Patient 86.7 kg Weight Weight Standing scale Measurement Method PATIENT WEIGHT: Weight (lb): 191 Weight (oz): 2.25 Weight (kg): 86.700 Medications: Active Meds + DC'd Last 24 Hrs Albuterol Sulfate (ALBUTEROL SULFATE) 2.5 MG RTONCE ONE NEB (DC) Mupirocin (BACTROBAN 2% 22 GM OINTMENT) 1 APPLIC BID NASAL Verapamil HCl (ISOPTIN) 16.6 MG .Q24H ONE IV (DC) Heparin Sodium (Porcine) (HEPARIN SODIUM) 1,660 UNIT [...] PO Acetaminophen (TYLENOL EXTRA STRENGTH) 500 MG Q4H PRN PRN PO Atropine Sulfate (ATROPINE SULFATE 0.1MG/ML SYR) 0.5 MG ASDIR PRN IV Sodium Chloride (SODIUM CHLORIDE 0.9%) 500 ML ASDIR PRN IV Dietitian nutrition assessment The data set between the solid lines has been imported from the dietitian's assessment. BMI Calculated: 27.3 [...] soft Genitourinary: no bladder distention, no flank pain, no urinary catheter Extremities: no calf tenderness, no clubbing, no cyanosis Musculoskeletal: no CVA tenderness, no muscle spasm Neuro/CERAMIC PAINTER: alert, oriented X 3, CNII-XII intact Skin: dry, intact Results Results: vital signs reviewed, vital signs stable, current med profile rev'd Treatment Prophylaxis Treatment Prophylaxis Oxygen: room air Diagnosis, Assessment Plan Consultants: cardiology, cardiovascular surgery Code status: full code Plan discussed with: patient, admitting physician, consultants, nurse Free Text DxA P Notes [...] with and documented by Luther Montiel NP at 0927 at 2110 RPT #:[id number] END OF [id number] 04:45:00 [facility] ([facility]) Cardiothoracic Surgery Prog REPORT#:[id number] REPORT STATUS: Signed DATE:07/31/22 TIME: 444 PATIENT: MARY DALY UNIT #: [id number] ROOM/BED: [place] [address] : 53 AGE: 66 SEX: M ATTEND: Anthony Loaiza MD ADM AUTHOR: Rosalind Mendez Physic * ALL edits or amendments must be made on the electronic/computer document * Subjective Chief complaint: Chest Pains, [...] rate rhythm Respiratory: aerating well, clear to auscultation Abdomen: soft, non-tender Extremities: dry, moves all Musculoskeletal: full range of motion, painless range of motion Neuro/CERAMIC PAINTER: alert, oriented X 3 Skin: dry, intact Diagnosis, Assessment Plan Free Text A P: This is a 66-year gentleman with past medical history of coronary artery disease status post PCI in the past, with most recent in July 07, 2022, history of temporal arteritis on chronic prednisone since 2016, diverticulitis, gout, hypertension, hyperlipidemia. The patient reports a history of exertional shortness of breath with occasional chest pain over the past several weeks. 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 This revealed multivessel CAD. CV surgery consulted for evaluation for coronary bypass graft. The patient reports a history of diabetes, diet controlled for the past [...] PCI with most recent June 2022, hold Plavix in preparation for surgery. 2. Hypertension 3. Hyperlipidemia 4. Temporal arteritis in 2017 Continues on prednisone 3 mg We will begin work-up for coronary bypass graft surgery. Patient was seen in exam by Dr. Mccurdy. Further recommendations to follow as work-up underway Thank you for this kind consultation 07/29/22 Patient resting comfortable, denies complaint Patient received Plavix 75 mg on 07/28/2022 , will obtain repeat platelet response to Plavix test in the a.m. Respiratory: On room air Cardiac: Remains sinus rhythm Carotid Doppler shows no significant carotid artery stenosis Vein mapping complete Labs reviewed shows WBCs elevated 16 Urinalysis negative Neurology consult for history of temporal arteritis, appreciate input We will repeat platelet response to Plavix. Possibly plan for CABG in the a.m. Patient was seen and examined by 07/30/22 Patient resting comfortable. Denies complaints. Respiratory: On room air 100% Cardiac: Sinus rhythm Last recieved plavix on 07/28/22, Platelet response to PLavix this am= 157 Will plan for surgery next week. Neurology eval underway Patient was seen and examined by Dr. Mccurdy Work-up for coronary artery bypass graft surgery undergoing. Timing of surgery pending 07/31/22 Patient resting comfortable. Denies complaints. Respiratory: On room air 100% Cardiac: Sinus rhythm Patient recieved plavix on 07/28/22, Will repeat platelet response on Tuesday. Will plan for surgery next week Neurology following. Continue steroids for Hx of temporal arteritis. Carotids show no significant dz, CT head complete No flow-limiting stenosis or occlusion along major intracranial arterial vessels. No acute intracranial process nor bony injury UA negative, HGa1c 6.2 Patient was seen and examined by Dr. Mccurdy. Plan repeat platelet response to Plavix in the a.m. Plan for CABG on Tuesday Consultants: cardiology, cardiovascular surgery at 0845 at 1111 RPT #:[id number] END OF [id number] 11:31:00 [facility] Neurology Progress Note REPORT#:[id number] REPORT STATUS: Signed DATE:07/30/22 TIME: 1131 PATIENT: MARY DALY UNIT #: [id number] ROOM/BED: [place] [address] : 53 AGE: 66 SEX: M ATTEND: Anthony Loaiza MD ADM AUTHOR: Sam Fallon MD * ALL edits or amendments must be made on the electronic/computer document * Subjective Chief complaint: chest pain HPI: Patient denies new events. Review of Systems Free Text ROS Notes Free Text ROS Notes: 14 point system reviewed and negative with exception of what is in HPI Objective General [...] CIPROFLOXACIN (CIPRO) 500 MG PO DAILY PRN DIVERTICULITIS CLOPIDOGREL (PLAVIX) 75 MG PO DAILY metroNIDAZOLE (FLAGYL) 500 MG PO TID PRN DIVERTICULITIS NEBIVOLOL (BYSTOLIC) 20 MG PO BID OMEPRAZOLE ER (PriLOSEC) 40 MG PO DAILY PRN ACID REFLUX predniSONE 1 MG PO TID SILDENAFIL (VIAGRA) 100 MG PO DAILY PRN PRN ED SODIUM FLUORIDE (PREVIDENT 5000 1.1% DENTAL) 1 APPLIC TOPICAL DAILY ASPIRIN 81 MG PO DAILY POTASSIUM GLUCONATE 1 TAB PO DAILY CALCIUM CARBONATE (CALTRATE 600 MG) 600 MG PO DAILY CHOLECALCIFEROL (VITAMIN D3) (VITAMIN D3) 1,000 UNITS PO DAILY ACETAMINOPHEN (TYLENOL) 500 MG PO Q4H PRN PRN PAIN IBUPROFEN (ADVIL) 200 MG PO Q6H PRN PRN PAIN FAMOTIDINE (PEPCID) 20 MG PO DAILY amLODIPine (NORVASC) 10 MG PO DAILY LOSARTAN (COZAAR) 50 MG PO DAILY Active Meds + DC'd Last 24 Hrs Nebivolol (BYSTOLIC) 10 MG BEDTIME PO Nitroglycerin/Dextrose (NITROGLYCERIN 50,000MCG/D5W 250ML) 250 ML ASDIR IV Heparin Sodium (HEPARIN 5000 UNITS/ML) 0 ASDIR PRN IV Heparin Sodium (Porcine) (HEPARIN 25,000 UNITS/ 1/2NS 500ML) 500 ML ASDIR IV (CKD) Heparin Sodium (HEPARIN 5000 UNITS/ML) 4,000 UNIT ONCE STA IV (DC) Albuterol Sulfate (ALBUTEROL SULFATE) 2.5 MG RTONCE ONE NEB (DC) Mupirocin (BACTROBAN 2% 22 GM OINTMENT) 1 APPLIC BID NASAL Verapamil HCl (ISOPTIN) 16.6 MG .Q24H ONE IV (DC) Heparin Sodium (Porcine) (HEPARIN SODIUM) 1,660 UNIT [...] PO Acetaminophen (TYLENOL EXTRA STRENGTH) 500 MG Q4H PRN PRN PO Atropine Sulfate (ATROPINE SULFATE 0.1MG/ML SYR) 0.5 MG ASDIR PRN IV Sodium Chloride (SODIUM CHLORIDE 0.9%) 500 ML ASDIR PRN IV Physical Exam Neuro comment: GEN: NAD, Calm and Cooperative HEENT: NC/AT, Anicteric Sclera, Mucous Membranes are moist CV: Brisk Cap Refill/Palpable peripheral pulses RESP: Chest Expansion is symmetric, non-labored breathing EXTREM: No peripheral Edema Neuro Exam: Mental Status: A, A, O x4, cooperative, good fund of knowledge Naming, comprehension, repetition intact. Follow simple and 3-step verbal commands Language: Fluency intact, no aphasia or dysarthria Coordination: Normal Finger to nose exam, No dysmetria or tremor Cranial Nerves: II: Pupils equal and symmetric, Brisk and reactive to light bilaterally III, IV, : EOM intact, No gaze preference, No visual field deficit, No nystagmus V, VII: Normal Sensation to V1, V2, V3 distribution bilaterally, Normal facial expression, No facial paresis or Nasolabial fold flattening. VIII: Hearing is intact to speech IX, X: Soft palate elevates normally, Uvula to the midline XI, XII: Normal strength to SCM bilaterally. Tongue protrudes to the midline Motor: Normal Tone and muscle bulk in all extremities RUE: 5/5 Strength with Shoulder Abductors/Adductors, Elbow flexors/extensors, wrist flexors/extensors and Finger abductors/adductors LUE: 5/5 Strength with Shoulder Abductors/Adductors, Elbow flexors/extensors, wrist flexors/extensors and Finger abductors/adductors RLE: 5/5 Strength with hip flexors/extensors, knee flexors/extensors, ankle dorsiflexors and plantar flexors LLE: 5/5 Strength with hip flexors/extensors, knee flexors/extensors, ankle dorsiflexors and plantar flexors Sensory: Normal Sensation to Light touch, Pinprick, Temperature, in all extremities Deep Tendon Reflexes: +2 and symmetric to Biceps, Triceps, Brachioradialis, Knees and Ankles Plantar Responses: Flexor bilaterally Gait /Station: Normal, No Truncal Instability, Negative Romberg Diagnosis, Assessment Plan Free Text A P: This is a 66-year-old male with a past medical history of hypertension, hyperlipidemia, diverticulitis, MD, gout, temporal arteritis and CAD who was admitted to [facility] on July 28 electively for a left heart cath. Neuro exam demonstrates no focal deficits. Impression: Multivessel coronary artery disease H/O Temporal Arteritis Prior MD with PCI Hypertension Plan: - CTA H N reviewed personally though radiology read is pending. Patient has an azygous CHEYANNE on the R with robust Acomm and BL A1 segments. R [employer] is in origin. Hard plaque in BL cavernous ICA with mild moderate stenosis on my review. mid basilar with areas of moderate severe stenosis seen on axial slices on my review. Non flowlimiting hard plaque in BL cervical ICA. L VA is dominant with R V4 occlusion/severe stenosis intracranially as opposed to ending in PICA - will f/u radiology read - no contraindication to CABG from neurostanpoint as long as adequate CPP maintained. care home there is some concern regarding how robust patient's pontine perforators likely are given positioning of plaque in basilar artery. at 1757 RPT #:[id number] END OF [id number] 09:29:00 [facility] ([facility]) Hospitalist Progress Note REPORT#:[id number] REPORT STATUS: Signed DATE:07/30/22 TIME: 928 PATIENT: MARY DALY UNIT #: [id number] ROOM/BED: [place] [id number] : 53 AGE: 66 SEX: M ATTEND: Anthony Loaiza MD ADM AUTHOR: Luther Martin ANESTHESIOLOGIST * ALL edits or amendments must be made on the electronic/computer document * VeronicaLuther 07/30/22 0929: Subjective Chief complaint: He is stable. No new issue. NO CP, fever, chills. NO N/v/d. Hr stable. BP is stable. Review of Systems Constitutional: Reports: fatigue, generalized weakness. Allergy/Immun: Denies: anaphylaxis, hives, rhinorrhea. ENT: Denies: earache, mouth pain, nasal congestion, sinus problem, throat pain, tongue swelling. Respiratory: Denies: PETERSEN (dyspnea on exertion), non productive cough, pleuritic pain, productive cough (sputum), SOB. Cardiovascular: Denies: chest pain, orthopnea, palpitations. GI: Denies: abdominal pain, constipation, dysphagia, hematemesis, hematochezia, melena, nausea. : Denies: flank pain, hematuria, nocturia, penile discharge, testicular swelling. Heme: Denies: bleeding, bruising. Neuro: Denies: bowel dysfunction, dizziness, headache, slurred speech, spinning sensation. Objective General VS/I O: Vital Signs: Date Time Temp Pulse Resp B/P B/P Pulse O2 O2 Flow FiO2 Mean Ox Delivery Rate 07/30 0652 36.6 48 18 138/88 104.5 93 07/30 0313 36.4 49 14 155/83 0.0 97 Room air 07/30 0100 51 12 07/29 2308 36.4 49 14 136/70 0.0 97 Room air 07/29 2307 50 11 136/70 97 / 2105 51 17 143/74 103 /08 1833 36.4 57 14 130/66 0.0 95 Room air 06/08 1504 36.6 54 18 144/79 0.0 94 /08 1149 36.4 56 18 128/55 0.0 95 [...] HCl (ISOPTIN) 16.6 MG .Q24H ONE IV (CKD) Heparin Sodium (Porcine) (HEPARIN SODIUM) 1,660 UNIT [...] PO Acetaminophen (TYLENOL EXTRA STRENGTH) 500 MG Q4H PRN PRN PO Atropine Sulfate (ATROPINE SULFATE 0.1MG/ML SYR) 0.5 MG ASDIR PRN IV Sodium Chloride (SODIUM CHLORIDE 0.9%) 500 ML ASDIR PRN IV Dietitian nutrition assessment The data set between the solid lines has been imported from the dietitian's assessment. BMI Calculated: 27.3 [...] soft Genitourinary: no bladder distention, no flank pain, no urinary catheter Extremities: no calf tenderness, no clubbing, no cyanosis Musculoskeletal: no CVA tenderness, no muscle spasm Neuro/CERAMIC PAINTER: alert, oriented X 3, CNII-XII intact Skin: [...] PT Patient/Control Mix (9.3 - 12.9 SECONDS) 11.2 Plt P2Y12 React Units (182 - 335 [...] % (Auto) (14.0 - 32.0 %) 29.6 Brooke % (Auto) (4.8 - 9.0 %) 11.0 H Eos % (Auto) (0.3 - 3.7 %) 1.4 Baso % (Auto) (0.0 - 2.0 %) 0.4 Neut # (Auto) (2.0 - 7.6 x10 3/uL) 6.63 Lymph # (Auto) (1.0 - 3.8 x10 3/uL) 3.43 Brooke # (Auto) (0.1 - 0.8 x10 3/uL) 1.28 H Eos # (Auto) (0.0 - 0.2 x10 3/uL) 0.16 Baso # (Auto) (0.0 - 0.2 x10 3/uL) 0.05 Abs Immat Gran (auto) (0.00 - 0.03 x10 3/uL) 0.04 H Add Manual Diff NO Immature Gran % (0.0 - 2.0 %) 0.3 Nucleated RBC % (0 - 0 %) 0.0 Nucleated RBCs # (Man) (0.0 - 0.1 x10 3/uL) 0.00 Laboratory Tests 07/30 0305 Serology SARS-CoV-2 Ag (Rapid) (Negative) Negative Results: labs reviewed, vital signs reviewed, vital signs stable, current med profile rev'd Treatment Prophylaxis Treatment Prophylaxis Oxygen: room air Diagnosis, Assessment Plan Orders: Procedure Date/time Status CHANGE PATIENT STATUS 07/30 826 Active Consultants: cardiology, cardiovascular surgery Code status: full code Plan discussed with: patient, admitting physician, consultants, nurse Free Text DxA P Notes [...] with and documented by Luther Montiel NP at 0931 at 2109 RPT #:[id number] END OF [id number] 08:56:00 [facility] Cardiology Progress Note REPORT#:[id number] REPORT STATUS: Signed DATE:07/30/22 TIME: 855 PATIENT: MARY DALY UNIT #: [id number] ROOM/BED: [place] [address] : 53 AGE: 66 SEX: M ATTEND: Anthony Loaiza MD ADM AUTHOR: Harper Rae NP * ALL edits or amendments must be made on the electronic/computer document * Subjective Chief complaint: Doing okay. Patient reports: No: chest pain, palpitations, shortness of breath. Nursing reports: No: complaints. Comments: Patient on room air, NAD. His surgery is canceled due to platelet response to Plavix was low, 157. Telemetry shows normal sinus rhythm to sinus bradycardia. Objective General VS/I O: 24 hour I O ending at 0700: 07/29 1900 07/30 0700 Intake Total 900 250 Output Total Balance 900 250 Intake, Oral 900 250 Number Voids 5 1 Patient 86.4 kg Weight Weight Standing scale Measurement Method Vital Signs: Date Time Temp Pulse Resp B/P B/P Pulse O2 O2 Flow FiO2 Mean Ox Delivery Rate 07/30 1134 97.3 53 18 137/81 99.6 93 / 0652 97.9 48 18 138/88 104.5 93 / 0313 97.5 49 14 155/83 0.0 97 Room air 06/ 0100 51 12 06/08 2308 97.5 49 14 136/70 0.0 97 Room air / 2307 50 11 136/70 97 /08 2105 51 17 143/74 103 06/08 1833 97.5 57 14 130/66 0.0 95 Room air 06/ 1504 97.9 54 18 144/79 0.0 94 PATIENT WEIGHT: Weight (lb): 190 Weight (oz): 7.67 Weight (kg): 86.400 Medications: Active Meds + DC'd Last 24 Hrs Metoprolol Tartrate (LOPRESSOR) 6.25 MG ONCE ONE PO (DC) Verapamil HCl (ISOPTIN) 16.6 MG .Q24H ONE IV (CKD) Heparin Sodium (Porcine) (HEPARIN SODIUM) 1,660 UNIT [...] PO Acetaminophen (TYLENOL EXTRA STRENGTH) 500 MG Q4H PRN PRN PO Atropine Sulfate (ATROPINE SULFATE 0.1MG/ML SYR) 0.5 MG ASDIR PRN IV Sodium Chloride (SODIUM CHLORIDE 0.9%) 500 ML ASDIR PRN IV Status post: 07/27 [facility] Physical Exam General appearance: alert, oriented, no acute distress, pleasant, conversational , mental status normal, no respiratory distress Head/Eyes: atraumatic, PERRL ENT: moist mucosal membranes Neck: full range of motion, no JVD Cardiovascular: CV assessment: regular rate and rhythm, no murmur Respiratory: decreased breath sounds, no distress Abdomen: soft, non-tender, normal bowel sounds, no distention, no guarding Genitourinary: no flank pain, no urinary catheter Upper extremity: UE assessment: normal temperature, no edema Lower extremity: LE assessment: normal temperature, no edema Neuro/CERAMIC PAINTER: alert, oriented X 3, normal speech Psychiatry: [...] PT Patient/Control Mix (9.3 - 12.9 SECONDS) 11.2 Plt P2Y12 React Units (182 - 335 [...] % (Auto) (14.0 - 32.0 %) 29.6 Brooke % (Auto) (4.8 - 9.0 %) 11.0 H Eos % (Auto) (0.3 - 3.7 %) 1.4 Baso % (Auto) (0.0 - 2.0 %) 0.4 Neut # (Auto) (2.0 - 7.6 x10 3/uL) 6.63 Lymph # (Auto) (1.0 - 3.8 x10 3/uL) 3.43 Brooke # (Auto) (0.1 - 0.8 x10 3/uL) 1.28 H Eos # (Auto) (0.0 - 0.2 x10 3/uL) 0.16 Baso # (Auto) (0.0 - 0.2 x10 3/uL) 0.05 Abs Immat Gran (auto) (0.00 - 0.03 x10 3/uL) 0.04 H Add Manual Diff NO Immature Gran % (0.0 - 2.0 %) 0.3 Nucleated RBC % (0 - 0 %) 0.0 Nucleated RBCs # (Man) (0.0 - 0.1 x10 3/uL) 0.00 Laboratory Tests 07/30 304 Serology SARS-CoV-2 Ag (Rapid) (Negative) Negative Laboratory Tests 07/30 305 Chemistry B-Natriuretic Peptide (0 - 100 PG/ML) 54.0 Results: labs reviewed, vital signs reviewed, vital signs stable, rhythm personally rev'd, current med profile rev'd Telemetry Interpretation: Normal sinus rhythm to normal sinus bradycardia Diagnosis, Assessment Plan Consultants: cardiology, cardiovascular surgery Plan discussed with: patient, nurse Free Text DxA P Notes Free Text DxA P Notes: Mr. Daly is a pleasant 66 y/o male w/ PMHx: CAD s/p PCI, HTN, HLD, T2DM, GERD , temporal arteritis (on prednisone) presented to [facility] yesterday for elective PCI. Dr. Sainz is consulted for CAD. Patient experiences intermittent shortness of breath with exertion for several years and worsen in past few months. He also had chest discomfort w/ exertion few weeks ago; outpatient nuclear stress test was normal. However, he still experienced w/ PETERSEN, therefore , he scheduled LHC. Per patient he had PCI w/ stenting on LAD in July 07, 2022 and plan to have a stage PCI yesterday, however, it was not successful; therefore, CTS was consulted for CABG. Patient denied orthopnea, no PND. No cough, no fever. Reports heartburn and relieved w/ Maalox at home. Workup: CBC and BMP - unremarkable. Vein mapping was done today. Carotid ultrasound was negative for significant stenosis. At present, on RA, NAD. - CAD. s/p LHC: multivessels disease Continue BB, statins, ASA, and Ranexa. on telemtry EF 55 to 60% with grade 1 diastolic dysfunction CABG today canceled d/t platelet response to Plavix dropped 157 - sometimes next week. Per CTS. - HTN. BP controlled. On Bystolic, Norvasc and Losartan. Hydralazine PRN. - HLD. On statins. - Chronic temporal arteritis. On prednisone. - GERD. Per IM. On Pepcid. Add Maalox PRN. - ETOH. Per IM. Advised cessation. Stable. No CP. MDM per Dr. Chaparro. at 1430 at 1740 RPT #:[id number] END OF [id number] 05:05:00 [facility] Cardiothoracic Surgery Prog REPORT#:[id number] REPORT STATUS: Signed DATE:07/30/22 TIME: 0505 PATIENT: MARY DALY UNIT #: [id number] ROOM/BED: [place] [address] : 53 AGE: 66 SEX: M ATTEND: Anthony Loaiza MD ADM AUTHOR: Rosalind Mendez Physic * ALL edits or amendments must be made on the electronic/computer document * Subjective Chief complaint: Chest Pains, [...] rate rhythm Respiratory: aerating well, clear to auscultation Abdomen: soft, non-tender Extremities: dry, moves all Musculoskeletal: full range of motion, painless range of motion Neuro/CERAMIC PAINTER: alert, oriented X 3 Skin: dry, intact Diagnosis, Assessment Plan Free Text A P: This is a 66-year gentleman with past medical history of coronary artery disease status post PCI in the past, with most recent in July 07, 2022, history of temporal arteritis on chronic prednisone since 2016, diverticulitis, gout, hypertension, hyperlipidemia. The patient reports a history of exertional shortness of breath with occasional chest pain over the past several weeks. 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 This revealed multivessel CAD. CV surgery consulted for evaluation for coronary bypass graft. The patient reports a history of diabetes, diet controlled for the past [...] PCI with most recent June 2022, hold Plavix in preparation for surgery. 2. Hypertension 3. Hyperlipidemia 4. Temporal arteritis in 2017 Continues on prednisone 3 mg We will begin work-up for coronary bypass graft surgery. Patient was seen in exam by Dr. Mccurdy. Further recommendations to follow as work-up underway Thank you for this kind consultation 07/29/22 Patient resting comfortable, denies complaint Patient received Plavix 75 mg on 07/28/2022 , will obtain repeat platelet response to Plavix test in the a.m. Respiratory: On room air Cardiac: Remains sinus rhythm Carotid Doppler shows no significant carotid artery stenosis Vein mapping complete Labs reviewed shows WBCs elevated 16 Urinalysis negative Neurology consult for history of temporal arteritis, appreciate input We will repeat platelet response to Plavix. Possibly plan for CABG in the a.m. [...] cardiology, cardiovascular surgery at 0948 at 1552 RPT #:[id number] END OF [id number] 22:34:[id number] [place] [address] PATIENT NAME: MARY DALY ADMIT DATE: 07/27/22 ACCOUNT NO: [id number] ROOM NO: [facility] AGE: 66 REPORT TYPE: eECHOCARDIOGRAM REPORT SEX: M ADMITTING PHYSICIAN:Anthony Loaiza MD ATTENDING PHYSICIAN:Anthony Loaiza MD *[place] [address] Transthoracic Echocardiogram Patient: Mary Daly Study Date: 07/29/2022 BP: 130 / 66 Location: [facility] URN: [id number] : 1955 Age: 66 Height: 70 in / 177.8 cm Gender: M Weight: 192.6 lb / 87.5 kg BMI/BSA: 27.7 kg/m 2 / 2.06 m 2 *Ordering Physician: * Rosalind Mendez *Interpreting Physician: * Denton Chaparro MD *Instructional Services Librarian: * PADDY Trammell Indications: PRE OP. Study data: Transthoracic echocardiogram. Procedure: Transthoracic echocardiography was performed. Images were obtained using a [employer]set. cardiac ultrasound machine. Intravenous contrast (Optison, 2 mls) was administered. Complete 2D, complete spectral Doppler, and color Doppler. Location: Bedside. Patient status: Observation. Patient room number: 3341. Study status: Stat. Findings Left ventricle: The cavity size is normal. Wall thickness is normal. Systolic function is normal. The estimated ejection fraction is 55-60%. Wall motion is normal; there are no regional wall motion abnormalities. Doppler parameters are consistent with abnormal left ventricular relaxation (grade 1 diastolic dysfunction). PATIENT NAME: MARY DALY Right ventricle: The cavity size is normal. Systolic function is normal. Left atrium: The atrium is normal in size. Right atrium: The atrium is normal in size. Aorta: Aortic root: The aortic root is normal in size. Aortic valve: The valve is structurally normal. The valve is trileaflet. There is no evidence of stenosis. There is no regurgitation. Mitral valve: The annulus is mildly calcified. There is no evidence of stenosis. There is trivial regurgitation. Tricuspid valve: The valve is structurally normal. There is mild regurgitation. Pulmonic valve: The valve is structurally normal. The leaflets are normal thickness. There is trivial regurgitation. Pericardium: There is no pericardial effusion. Pulmonary arteries: The main pulmonary artery is normal-sized. Systemic veins: Inferior vena cava: The vessel is normal in size. The respirophasic diameter changes are in the normal range (= 50%). Measurements Left ventricle Value Ref CHRIS, LAX [...] TDI 13 <=14 PATIENT NAME: MARY DALY LVOT Value Ref Diam, S 1.93 cm [...] cm 2 --------- PATIENT NAME: MARY DALY Mitral valve Value Ref Peak E 0.07 m/sec --------- Peak A 1 m/sec --------- Decel time 213 ms --------- PHT 42 ms --------- Peak E/A ratio 0.93 --------- MVA, PHT 5.2 cm 2 --------- Pulmonic valve Value Ref CA v, ED 0.58 m/sec --------- Tricuspid valve Value Ref TR peak v 1.21 m/sec <=2.8 Peak RV-RA 6 mm Hg --------- grad, S Conclusions Summary: 1. Left ventricle: The cavity size is normal. Wall thickness is normal. Systolic function is normal. The estimated ejection fraction is 55-60%. Wall motion is normal; there are no regional wall motion abnormalities. Doppler parameters are consistent with abnormal left ventricular relaxation (grade 1 diastolic dysfunction). 2. Mitral valve: The annulus is mildly calcified. Prepared and electronically signed by Denton Chaparro MD 07/29/2022 22:34 at 2234 PATIENT NAME: MARY DALY 15:52:00 [facility] Neurology Consultation Note REPORT#:[id number] REPORT STATUS: Signed DATE:07/29/22 TIME: 1552 PATIENT: MARY DALY UNIT #: [id number] ROOM/BED: [place] [address] : 53 AGE: 66 SEX: M ATTEND: Anthony Loaiza MD ADM AUTHOR: Frieda Abdi ANESTHESIOLOGIST * ALL edits or amendments must be made on the electronic/computer document * Frieda Abdi 07/29/22 1552: History of Present Illness HPI Requesting clinician: Anthony Loaiza MD Reason for consult: H/O Temporal Arteritis, Pre-op CABG PCP: PCP: Albino Torre MD HPI: Mr. Daly is a 66-year-old male with a past medical history of hypertension, hyperlipidemia, diverticulitis, MD, gout, temporal arteritis and CAD who was admitted to [facility] on July 28 electively for a left heart cath. Patient reports he has been experiencing chest tightness and shortness of breath, even after having a normal stress test a few weeks ago according to the patient. Left Heart cath done on July 28, 2022, showed multivessel coronary artery disease, prompting CVT consultation for possible CABG. Currently, patient denies having any chest pain, shortness of breath, weakness, dizziness, visual, speech or gait disturbances. He denies any prior history of stroke, seizures , arrhythmia or migraines. He has been taking Plavix for the coronary artery disease, which was stopped on yesterday. In terms of the temporal arteritis, he had a biospy done and has been on low-dose prednisone 3 mg since 2017. Neurology consult was requested for evaluation. History - Adult longitudinal Past medical history: Reports: Coronary artery disease, Hypertension, Dyslipidemia, Prior MD, Steroid use. Additional medical history: Temproal arteritis (2017) Additional surgical history: Colon resection 2009 secondary to diverticulitis C3 surgery Family history: Reports: Heart disease (brother). Alcohol use: Alcohol use (1-7 drinks per week) Drug use: Denies recreational drugs Smoking status for patients 13 years old or older: Never Smoker Ambulatory status: Independent Review of Systems Free Text ROS Notes Free Text ROS Notes: 14 point system reviewed and negative with exception of what is in HPI Objective General VS: Last Documented: Result Date Time Pulse Ox 94 07/29 1504 B/P 144/79 07/29 1504 B/P Mean 0.0 07/29 1504 Temp 97.9 07/29 1504 Pulse 54 07/29 1504 Resp 18 07/29 1504 O2 Delivery Room air 07/29 1149 PATIENT WEIGHT: Weight (lb): 193 Weight (oz): 12.58 Weight (kg): 87.900 Medications Current Home Medications ATORVASTATIN (LIPITOR) 10 MG PO DAILY CIPROFLOXACIN (CIPRO) 500 MG PO DAILY PRN DIVERTICULITIS CLOPIDOGREL (PLAVIX) 75 MG PO DAILY metroNIDAZOLE (FLAGYL) 500 MG PO TID PRN DIVERTICULITIS NEBIVOLOL (BYSTOLIC) 20 MG PO BID OMEPRAZOLE ER (PriLOSEC) 40 MG PO DAILY PRN ACID REFLUX predniSONE 1 MG PO TID SILDENAFIL (VIAGRA) 100 MG PO DAILY PRN PRN ED SODIUM FLUORIDE (PREVIDENT 5000 1.1% DENTAL) 1 APPLIC TOPICAL DAILY ASPIRIN 81 MG PO DAILY POTASSIUM GLUCONATE 1 TAB PO DAILY CALCIUM CARBONATE (CALTRATE 600 MG) 600 MG PO DAILY CHOLECALCIFEROL (VITAMIN D3) (VITAMIN D3) 1,000 UNITS PO DAILY ACETAMINOPHEN (TYLENOL) 500 MG PO Q4H PRN PRN PAIN IBUPROFEN (ADVIL) 200 MG PO Q6H PRN [...] PO Acetaminophen (TYLENOL EXTRA STRENGTH) 500 MG Q4H PRN PRN PO Atropine Sulfate (ATROPINE SULFATE 0.1MG/ML SYR) 0.5 MG ASDIR PRN IV Sodium Chloride (SODIUM CHLORIDE 0.9%) 500 ML ASDIR PRN IV Physical Exam Neuro comment: GEN: NAD, Calm and Cooperative HEENT: NC/AT, Anicteric Sclera, Mucous Membranes are moist CV: Brisk Cap Refill/Palpable peripheral pulses RESP: Chest Expansion is symmetric, non-labored breathing EXTREM: No peripheral Edema Neuro Exam: Mental Status: A, A, O x4, cooperative, good fund of knowledge Naming, comprehension, repetition intact. Follow simple and 3-step verbal commands Language: Fluency intact, no aphasia or dysarthria Coordination: Normal Finger to nose exam, No dysmetria or tremor Cranial Nerves: II: Pupils equal and symmetric, Brisk and reactive to light bilaterally III, IV, : EOM intact, No gaze preference, No visual field deficit, No nystagmus V, VII: Normal Sensation to V1, V2, V3 distribution bilaterally, Normal facial expression, No facial paresis or Nasolabial fold flattening. VIII: Hearing is intact to speech IX, X: Soft palate elevates normally, Uvula to the midline XI, XII: Normal strength to SCM bilaterally. Tongue protrudes to the midline Motor: Normal Tone and muscle bulk in all extremities RUE: 5/5 Strength with Shoulder Abductors/Adductors, Elbow flexors/extensors, wrist flexors/extensors and Finger abductors/adductors LUE: 5/5 Strength with Shoulder Abductors/Adductors, Elbow flexors/extensors, wrist flexors/extensors and Finger abductors/adductors RLE: 5/5 Strength with hip flexors/extensors, knee flexors/extensors, ankle dorsiflexors and plantar flexors LLE: 5/5 Strength with hip flexors/extensors, knee flexors/extensors, ankle dorsiflexors and plantar flexors Sensory: Normal Sensation to Light touch, Pinprick, Temperature, in all extremities Deep Tendon Reflexes: +2 and symmetric to Biceps, Triceps, Brachioradialis, Knees and Ankles Plantar Responses: Flexor bilaterally Gait /Station: Normal, No Truncal Instability, Negative Romberg Results Findings/Data: Laboratory Tests 07/29 07/29 [...] pH (5.0 - 7.0) 5.0 Ur Specific [place] (1.005 - 1.030) 1.017 Urine Protein (NEGATIVE) [...] a 66-year-old male with a past medical history of hypertension, hyperlipidemia, diverticulitis, MD, gout, temporal arteritis and CAD who was admitted to [facility] on July 28 electively for a left heart cath. Neuro exam demonstrates no focal deficits. Impression: Multivessel coronary artery disease H/O Temporal Arteritis Prior MD with PCI Hypertension Plan: We will proceed with vessel imaging of head and neck to rule out any stenosis or occlusions given history of temporal arteritis which has been managed by low- dose prednisone use. Currently on Lipitor and aspirin therapy with Plavix being stopped in anticipation of surgical intervention. Recent labs reviewed. Neurology will follow up on imaging. Neurologist examined the patient, personally reviewed all pertinent data including imaging and Formulated the plan of care with recommendations as documented above with the Nurse practitioner. ANTOLIN distinctive service time , reviewing chart, tests results, education, counseling and coordinating care : 40 Minutes. ANTOLIN and Physician shared Service Time : 7 minutes discussing Diagnosis , Exam and Plan of Care. Frieda Abdi, RESOURCE TECHNICIAN-ANESTHESIOLOGIST for Sam Fallon MD [facility] Sam Fallon 07/29/22 9477: History - Adult longitudinal Allergies: Coded Allergies: hydromorphone (From DILAUDID) (Severe, THROAT SWELLS 07/27/22) crab (Intermediate, ITCHING, CHILLS 07/27/22) doxepin [...] denies any history of stroke or prior stroke like symptoms. Patient reports that he was diagnosed with GCA before the COVID pandemic after complaining to his paper finisher about vision loss in the right eye as well as retroorbital headache. He is biopsy proven and remains on low dose steroids to this day. Exam as noted above: Given request for further evaluation of preoperative risk by CV surgery in setting of GCA we can obtain a CTA head and neck to further evaluate for larger artery disease as there is some association between the two. However, any changes in this patient in terms of his large arteries are more likely to be atherosclerotic in origin. His ICA appear widely patent on doppler but limited eval of the posterior circulation is available with that modality. Physician specific service time 30min at 4823 at 1405 RPT #:[id number] END OF [id number] 09:39:00 [facility] ([facility]) Cardiothoracic Surgery Prog REPORT#:[id number] REPORT STATUS: Signed DATE:07/29/22 TIME: 938 PATIENT: MARY DALY UNIT #: [id number] ROOM/BED: [address] : 53 AGE: 66 SEX: M ATTEND: Anthony Loaiza MD ADM AUTHOR: Rosalind Mendez * ALL edits or amendments must be made on the electronic/computer document * Subjective Chief complaint: Chest Pains, [...] hour I O ending at 0700: 07/29 0700 07/28 1900 Intake Total 240 1080 Output Total [...] rate rhythm Respiratory: aerating well, clear to auscultation Abdomen: soft, non-tender Extremities: dry, moves all Musculoskeletal: full range of motion, painless range of motion Neuro/CERAMIC PAINTER: alert, oriented X 3 Skin: dry, intact [...] pH (5.0 - 7.0) 5.0 Ur Specific [place] (1.005 - 1.030) 1.017 Urine Protein (NEGATIVE) [...] of temporal arteritis on chronic prednisone since 2017, diverticulitis, gout, hypertension, hyperlipidemia. The patient reports a history of exertional shortness of breath with occasional chest pain over the past several weeks. 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 This revealed multivessel CAD. CV surgery consulted for evaluation for coronary bypass graft. The patient reports a history of diabetes, diet controlled for the past [...] PCI with most recent June 2022, hold Plavix in preparation for surgery. 2. Hypertension 3. Hyperlipidemia 4. Temporal arteritis in 2017 Continues on prednisone 3 mg We will begin work-up for coronary bypass graft surgery. Patient was seen in exam by Dr. Mccurdy. Further recommendations to follow as work-up underway Thank you for this kind consultation 07/29/22 Patient resting comfortable, denies complaint Patient received Plavix 75 mg on 07/28/2022 , will obtain repeat platelet response to Plavix test in the a.m. Respiratory: On room air Cardiac: Remains sinus rhythm Carotid Doppler shows no significant carotid artery stenosis Vein mapping complete Labs reviewed shows WBCs elevated 16 Urinalysis negative Neurology consult for history of temporal arteritis, appreciate input We will repeat platelet response to Plavix. Possibly plan for CABG in the a.m. Patient was seen and examined by Consultants: cardiology, cardiovascular surgery at 1720 at 1552 RPT #:[id number] END OF [id number] 09:16:00 [facility] ([facility]) Hospitalist Progress Note REPORT#:[id number] REPORT STATUS: Signed DATE:07/29/22 TIME: 915 PATIENT: MARY DALY UNIT #: [id number] ROOM/BED: [place] [address] : 53 AGE: 66 SEX: M ATTEND: Anthony Loaiza MD ADM AUTHOR: Luther Martin ANESTHESIOLOGIST * ALL edits or amendments must be made on the electronic/computer document * Luther Martin 07/29/22 0916: Subjective Chief complaint: He is feeling better. NO CP, fever, chills. NO N/v/d. His HR is high, A-fib. BP is stable. Review of Systems Constitutional: Reports: fatigue, generalized weakness. Allergy/Immun: Denies: anaphylaxis, hives, rhinorrhea. Respiratory: Denies: PETERSEN (dyspnea on exertion), parox nocturnal dyspnea, pleuritic pain, productive cough (sputum), SOB. Cardiovascular: Denies: PETERSEN (dyspnea on exertion), orthopnea, palpitations. GI: Denies: abdominal pain, diarrhea, GERD, hematemesis, hiatal hernia, nausea. : Denies: frequency, nocturia, penile lesion. Heme: Denies: bleeding, bruising. Neuro: Denies: change in LOC, focal weakness, lightheaded, seizure, spinning sensation, unable to speak. Objective General VS/I O: Vital Signs: Date Time Temp Pulse Resp B/P B/P Pulse O2 O2 Flow FiO2 Mean Ox Delivery Rate / 0717 [...] Clopidogrel Bisulfate (Plavix) 75 MG DAILY PO (DC) Famotidine (PEPCID) 20 MG DAILY PO Losartan Potassium (COZAAR) 50 MG DAILY PO Prednisone (predniSONE) 2 MG C BK PO Atorvastatin Calcium (LIPITOR) 10 MG BEDTIME PO Nebivolol (BYSTOLIC) 20 MG BEDTIME PO Prednisone (predniSONE) 1 MG BEDTIME PO Acetaminophen (TYLENOL EXTRA STRENGTH) 500 MG Q4H PRN PRN PO Atropine Sulfate (ATROPINE SULFATE 0.1MG/ML SYR) 0.5 MG ASDIR PRN IV Sodium Chloride (SODIUM CHLORIDE 0.9%) 500 ML ASDIR PRN IV Dietitian nutrition assessment The data set between the solid lines has been imported from the dietitian's assessment. BMI Calculated: 27.8 [...] soft Genitourinary: no bladder distention, no flank pain, no urinary catheter Extremities: no calf tenderness, no clubbing, no cyanosis Musculoskeletal: no CVA tenderness, no muscle spasm Neuro/CERAMIC PAINTER: alert, oriented X 3, CNII-XII intact Skin: [...] - 5.0 g/dL) 3.40 Laboratory Tests 07/28 09 Coagulation Plt P2Y12 React Units (182 - [...] pH (5.0 - 7.0) 5.0 Ur Specific [place] (1.005 - 1.030) 1.017 Urine Protein (NEGATIVE) [...] the greater saphenous veins bilaterally as above. Impression By: Heri Marrero M.D. [...] High, low, or Variable undetectable Impression By: Doug ThackerD. CAT SCAN - CT CHEST W/O CONTRAST 07/28 1303 Report Impression - Status: SIGNED Entered: 07/28/2022 1701 IMPRESSION: Severe coronary artery calcification. Otherwise, no significant chest abnormalities. Impression By: GeronimoVBZac Choudhary M.D. Results: labs reviewed, vital signs reviewed, vital signs stable, current med profile rev'd Treatment Prophylaxis Treatment Prophylaxis Oxygen: room air Diagnosis, Assessment Plan Consultants: cardiology, cardiovascular surgery Code status: full code Plan discussed with: patient, admitting physician, consultants, nurse Free Text DxA P Notes [...] with and documented by Luther Montiel NP at 0919 at 2143 RPT #:[id number] END OF [id number] 07:32:00 [facility] Cardiology Progress Note REPORT#:[id number] REPORT STATUS: Signed DATE:07/29/22 TIME: 731 PATIENT: MARY DALY UNIT #: [id number] ROOM/BED: [place] [address] : 53 AGE: 66 SEX: M ATTEND: Anthony Loaiza MD ADM AUTHOR: Denton Chaparro MD * ALL edits or amendments must be made on the electronic/computer document * Subjective Chief complaint: No change sob HPI: Mr. Daly is a pleasant 66 y/o male w/ PMHx: CAD s/p PCI, HTN, HLD, T2DM, GERD , temporal arteritis (on prednisone) presented to [facility] yesterday for elective PCI. Dr. Sainz is consulted for CAD. Patient experiences intermittent shortness of breath with exertion for several years and worsen in past few months. He also had chest discomfort w/ exertion few weeks ago; outpatient nuclear stress test was normal. However, he still experienced w/ PETERSEN, therefore , he scheduled LHC. Per patient he had PCI w/ stenting on LAD in July 07, 2022 and plan to have a stage PCI yesterday, however, it was not successful; therefore, CTS was consulted for CABG. Patient denied orthopnea, no PND. No cough, no fever. Reports heartburn and relieved w/ Maalox at home. Workup: CBC and BMP - unremarkable. Vein mapping was done today. Carotid ultrasound was negative for significant stenosis. At present, on , NAD. Objective General VS/I O: 24 hour I O ending at 0700: 07/29 0700 / 1900 Intake Total 240 1080 Output Total Balance 240 1080 Intake, Oral 240 1080 Number 0 Bowel Movements Number Voids 3 6 Patient 87.9 kg Weight Weight Standing scale Measurement Method Vital Signs: Date Time Temp Pulse Resp B/P B/P Pulse O2 O2 Flow FiO2 Mean Ox Delivery Rate 07/29 0717 97.7 53 18 144/74 0.0 94 [...] Clopidogrel Bisulfate (Plavix) 75 MG DAILY PO (DC) Famotidine (PEPCID) 20 MG DAILY PO Losartan Potassium (COZAAR) 50 MG DAILY PO Prednisone (predniSONE) 2 MG C BK PO Atorvastatin Calcium (LIPITOR) 10 MG BEDTIME PO Nebivolol (BYSTOLIC) 20 MG BEDTIME PO Prednisone (predniSONE) 1 MG BEDTIME PO Acetaminophen (TYLENOL EXTRA STRENGTH) 500 MG Q4H PRN PRN PO Atropine Sulfate (ATROPINE SULFATE 0.1MG/ML SYR) 0.5 MG ASDIR PRN IV Sodium Chloride (SODIUM CHLORIDE 0.9%) 500 ML ASDIR PRN IV Physical Exam General appearance: sleeping comfortably Head/Eyes: atraumatic, PERRL ENT: moist mucosal membranes Neck: full range of motion, no JVD Cardiovascular: CV assessment: regular rate and rhythm, no murmur Respiratory: decreased breath sounds, no distress Abdomen: soft, non-tender, normal bowel sounds, no distention, no guarding Genitourinary: no flank pain, no urinary catheter Upper extremity: UE assessment: normal temperature, no edema Lower extremity: LE assessment: normal temperature, no edema Neuro/CERAMIC PAINTER: alert, oriented X 3, normal speech Psychiatry: normal affect Diagnosis, Assessment Plan Consultants: cardiology, cardiovascular surgery Free Text DxA P Notes Free Text DxA P Notes: Mr. Daly is a pleasant 66 y/o male w/ PMHx: CAD s/p PCI, HTN, HLD, T2DM, GERD , temporal arteritis (on prednisone) presented to [facility] yesterday for elective PCI. Dr. Sainz is consulted for CAD. Patient experiences intermittent shortness of breath with exertion for several years and worsen in past few months. He also had chest discomfort w/ exertion few weeks ago; outpatient nuclear stress test was normal. However, he still experienced w/ PETERSEN, therefore , he scheduled LHC. Per patient he had PCI w/ stenting on LAD in July 07, 2022 and plan to have a stage PCI yesterday, however, it was not successful; therefore, CTS was consulted for CABG. Patient denied orthopnea, no PND. No cough, no fever. Reports heartburn and relieved w/ Maalox at home. Workup: CBC and BMP - unremarkable. Vein mapping was done today. Carotid ultrasound was negative for significant stenosis. At present, on RA, NAD. - CAD. s/p LHC: multivessels disease - consult CTS - workup on process. Not on Plavix d/t plan for surgery. Continue BB, statins, and ASA. Add Ranexa 500mg po bid. on telemtry - HTN. BP controlled. On Bystolic, Norvasc and Losartan. Add Hydralazine PRN. - HLD. On statins. - Chronic temporal arteritis. On prednisone. - GERD. Per IM. On Pepcid. Add Maalox PRN. - ETOH. Per IM. Advised cessation. Discussed plan of care w/pt. at 0732 RPT #:[id number] END OF [id number] 16:23:00 [facility] ([facility]) Cardiology Consultation REPORT#:[id number] REPORT STATUS: Signed DATE:07/28/22 TIME: 1623 PATIENT: MARY DALY UNIT #: [id number] ROOM/BED: [facility] [place]-1 : 53 AGE: 66 SEX: M ATTEND: Anthony Loaiza MD ADM AUTHOR: Harper Rae NP * ALL edits or amendments must be made on the electronic/computer document * History of Present Illness HPI Requesting Clinician: Dr. Temple Reason for consult: CAD, CABG evaluation Chief complaint: cp sob PCP: PCP: Albino Torre MD HPI: Mr. Daly is a pleasant 66 y/o male w/ PMHx: CAD s/p PCI, HTN, HLD, T2DM, GERD , temporal arteritis (on prednisone) presented to [facility] yesterday for elective PCI. Dr. Sainz is consulted for CAD. Patient experiences intermittent shortness of breath with exertion for several years and worsen in past few months. He also had chest discomfort w/ exertion few weeks ago; outpatient nuclear stress test was normal. However, he still experienced w/ PETERSEN, therefore , he scheduled LHC. Per patient he had PCI w/ stenting on LAD in July 07, 2022 and plan to have a stage PCI yesterday, however, it was not successful; therefore, CTS was consulted for CABG. Patient denied orthopnea, no PND. No cough, no fever. Reports heartburn and relieved w/ Maalox at home. Workup: CBC and BMP - unremarkable. Vein mapping was done today. Carotid ultrasound was negative for significant stenosis. At present, on RA, NAD. Hx Obtained [...] status for patients 13 years old or older: Never Smoker Home medications: Home Medications: ATORVASTATIN (LIPITOR) 10 MG PO DAILY CIPROFLOXACIN (CIPRO) 500 MG PO DAILY PRN DIVERTICULITIS CLOPIDOGREL (PLAVIX) 75 MG PO DAILY metroNIDAZOLE (FLAGYL) 500 MG PO TID PRN DIVERTICULITIS NEBIVOLOL (BYSTOLIC) 20 MG PO BID OMEPRAZOLE ER (PriLOSEC) 40 MG PO DAILY PRN ACID REFLUX predniSONE 1 MG PO TID SILDENAFIL (VIAGRA) 100 MG PO DAILY PRN PRN ED SODIUM FLUORIDE (PREVIDENT 5000 1.1% DENTAL) 1 APPLIC TOPICAL DAILY ASPIRIN 81 MG PO DAILY POTASSIUM GLUCONATE 1 TAB PO DAILY CALCIUM CARBONATE (CALTRATE 600 MG) 600 MG PO DAILY CHOLECALCIFEROL (VITAMIN D3) (VITAMIN D3) 1,000 UNITS PO DAILY ACETAMINOPHEN (TYLENOL) 500 MG PO Q4H PRN PRN PAIN IBUPROFEN (ADVIL) 200 MG PO Q6H PRN PRN PAIN FAMOTIDINE (PEPCID) 20 MG PO DAILY amLODIPine (NORVASC) 10 MG PO DAILY LOSARTAN (COZAAR) 50 MG PO DAILY Allergies: Coded Allergies: hydromorphone (From DILAUDID) (Severe, THROAT SWELLS 07/27/22) crab (Intermediate, ITCHING, CHILLS 07/27/22) doxepin [...] Systems Constitutional: Denies: chills, fatigue, fever, generalized weakness. Skin: Denies: diaphoresis, swelling. Allergy/Immun: Denies: hives, itching, rhinorrhea. Eyes: Denies: redness, visual loss/blurred, itching, diplopia. ENT: Denies: hearing loss, nasal congestion, nose bleeding. Respiratory: Reports: PETERSEN (dyspnea on exertion). Denies: parox nocturnal dyspnea, pleurisy, pneumonia, productive cough (sputum). Cardiovascular: Reports: chest pain, dyspnea on exertion. Denies: edema, orthopnea, palpitations, parox noctural dyspnea. GI: Reports: GERD. Denies: dysphagia, nausea, vomiting. : Denies: frequency, hematuria. Musculoskeletal: Denies: joint swelling. Heme: Denies: bleeding, bruising. Endocrine: Denies: cold intolerance, heat intolerance. Neuro: Denies: focal weakness, syncope, weakness. Psych: Denies: change in mental status. Objective General VS/I O: Vital Signs: Date Time Temp Pulse Resp B/P B/P Pulse O2 O2 Flow FiO2 Mean Ox Delivery Rate 07/28 1210 97.5 67 18 151/77 0.0 96 Room air 07/28 0656 97.7 67 20 159/89 0.0 94 Room air 06/07 0600 68 16 93 06/07 0500 74 29 94 06/07 0400 78 27 93 06/07 0348 98.1 71 20 145/74 97.4 96 Room air 06/07 0300 70 13 94 06/07 0200 69 19 96 06/07 0100 72 14 93 06/07 0000 72 16 125/58 83 93 06/06 2300 72 26 96 06/ 2237 97.5 [...] Amlodipine Besylate (NORVASC) 10 MG DAILY PO (DC) Amlodipine Besylate (NORVASC) 10 MG DAILY PO Aspirin (ASPIRIN) 81 MG DAILY PO Atorvastatin Calcium (LIPITOR) 10 MG DAILY PO (DC) Clopidogrel Bisulfate (Plavix) 75 MG DAILY PO (DC) Famotidine (PEPCID) 20 [...] (DC) Diphenhydramine HCl (BENADRYL) 0 .STK-MED ONE .ROUTE (DC) Methylprednisolone Sodium Succinate (Solu-Medrol 125 MG Vial) 0 .STK-MED ONE .ROUTE (DC) Midazolam HCl (VERSED) 0 .STK-MED ONE .ROUTE (DC) Fentanyl Citrate (SUBLIMAZE) 0 .STK-MED ONE .ROUTE (DC) Heparin Sodium (HEPARIN SODIUM) 0 .STK-MED ONE .ROUTE (DC) Heparin Sodium/Sodium Chloride (HEPARIN 2,000 UNITS/NS 1,000mL) 1,000 ML .STK-MED ONE IV (DC) Heparin Sodium/Sodium Chloride (HEPARIN 1,000 UNITS/NS 500ML) 500 ML .STK- MED ONE IV (DC) Lidocaine HCl (LIDOCAINE HCL/PF) 0 .STK-MED ONE .ROUTE (DC) Nitroglycerin/Dextrose (NITROGLYCERIN 50,000MCG/D5W 250ML) 250 ML .STK-MED ONE IV (DC) Verapamil HCl (ISOPTIN) 0 .STK-MED ONE IV (DC) Acetaminophen (TYLENOL EXTRA STRENGTH) 500 MG Q4H PRN PRN PO Atropine Sulfate (ATROPINE SULFATE 0.1MG/ML SYR) 0.5 MG ASDIR PRN IV Sodium Chloride (SODIUM CHLORIDE 0.9%) 1,000 ML .[id number] ONE IV (DC) Sodium Chloride (SODIUM CHLORIDE 0.9%) 500 ML ASDIR PRN IV Physical Exam General appearance: alert, awake, oriented, no acute distress, pleasant, conversational, mental status normal, no respiratory distress Head/Eyes: atraumatic, PERRL ENT: moist mucosal membranes Neck: full range of motion, no JVD Cardiovascular: CV assessment: regular rate and rhythm, no murmur Respiratory: decreased breath sounds, no distress Abdomen: soft, non-tender, normal bowel sounds, no distention, no guarding Genitourinary: no flank pain, no urinary catheter Upper extremity: UE assessment: normal temperature, no edema Lower extremity: LE assessment: normal temperature, no edema Neuro/CERAMIC PAINTER: alert, oriented X 3, normal speech Psychiatry: normal affect Results Findings/Data: Laboratory Tests 07/27 07/28 1736 0922 Coagulation Activated Coag Time (74 - 137 SEC) 305 H Plt P2Y12 React Units (182 - 335 PRU) 164 L Radiology Data: Recent Impressions: ULTRASOUND - [place] 07/28 1144 Report Impression - Status: SIGNED Entered: 07/28/2022 2206 Impression: 1. Vein mapping of the greater saphenous veins bilaterally as above. Impression By: Heri Marrero M.D. [...] M.D. Results: labs reviewed, vital signs reviewed, vital signs stable, rhythm personally rev'd, current med profile rev'd Telemetry Interpretation: Normal sinus rhythm Diagnosis, Assessment Plan Consultants: cardiology, cardiovascular surgery Plan discussed with: patient, nurse Free Text DxA P Notes Free Text DxA P Notes: Mr. Daly is a pleasant 66 y/o male w/ PMHx: CAD s/p PCI, HTN, HLD, T2DM, GERD , temporal arteritis (on prednisone) presented to [facility] yesterday for elective PCI. Dr. Sainz is consulted for CAD. Patient experiences intermittent shortness of breath with exertion for several years and worsen in past few months. He also had chest discomfort w/ exertion few weeks ago; outpatient nuclear stress test was normal. However, he still experienced w/ PETERSEN, therefore , he scheduled C. Per patient he had PCI w/ stenting on LAD in July 07, 2022 and plan to have a stage PCI yesterday, however, it was not successful; therefore, CTS was consulted for CABG. Patient denied orthopnea, no PND. No cough, no fever. Reports heartburn and relieved w/ Maalox at home. Workup: CBC and BMP - unremarkable. Vein mapping was done today. Carotid ultrasound was negative for significant stenosis. At present, on RA, NAD. - CAD. s/p LHC: multivessels disease - consult CTS - workup on process. Not on Plavix d/t plan [...] the kind consult. MDM per Dr. Sainz. at 1656 at 2000 RPT #:[id number] END OF [id number] 12:13:00 [facility] ([facility] Cardiology Consultation REPORT#:[id number] REPORT STATUS: Signed DATE:07/28/22 TIME: 1213 PATIENT: MARY DALY UNIT #: [id number] ROOM/BED: [place] [address] : 53 AGE: 67 SEX: M ATTEND: Atnhony Loaiza MD ADM AUTHOR: Flako Sainz MD * ALL edits or amendments must be made on the electronic/computer document * History of Present Illness HPI Reason for consult: CAD Chief complaint: SOB HPI: Mr. Daly is a pleasant 66 y/o male w/ PMHx: CAD s/p PCI, HTN, HLD, T2DM, GERD , temporal arteritis (on prednisone) presented to [facility] yesterday for elective PCI. Patient experiences intermittent shortness of breath with exertion for several years and worsen in past few months. He also had chest discomfort w/ exertion few weeks ago; outpatient nuclear stress test was normal. However, he still experienced w/ PETERSEN, therefore, he scheduled LHC. Per patient he had PCI w / stenting on LAD in July 07, 2022 and plan to have a stage PCI yesterday, however, it was not successful; therefore, CTS was consulted for CABG. Patient denied orthopnea, no PND. No cough, no fever. Reports heartburn and relieved w / Maalox at home. History - Adult longitudinal Additional medical history: HTN, HLD, CAD Alcohol use: Denies EtOH use Drug use: Denies recreational drugs Smoking status for patients 13 years old or older: Never Smoker Allergies: Coded Allergies: hydromorphone (From DILAUDID) (Severe, THROAT SWELLS 07/27/22) crab (Intermediate, ITCHING, CHILLS 07/27/22) doxepin [...] O2 Flow FiO2 Mean Ox Delivery Rate 07/28 1210 [...] 24 hour I O ending at 0700: 0607 0700 07/27 1900 Intake Total 240 Output Total Balance 240 Intake, Oral 240 Number 1 Bowel Movements Patient 87.5 kg 90.455 kg Weight Weight Standing scale Infant scale Measurement Method PATIENT WEIGHT: Weight (lb): 192 Weight (oz): 14.47 Weight (kg): 87.500 Medications: Active Meds + DC'd Last 24 Hrs Amlodipine Besylate (NORVASC) 10 MG DAILY PO (DC) Amlodipine Besylate (NORVASC) 10 MG DAILY PO Aspirin (ASPIRIN) 81 MG DAILY PO Atorvastatin Calcium (LIPITOR) 10 MG DAILY PO (DC) Clopidogrel Bisulfate (Plavix) 75 MG DAILY PO (DC) Famotidine (PEPCID) 20 [...] (DC) Diphenhydramine HCl (BENADRYL) 0 .STK-MED ONE .ROUTE (DC) Methylprednisolone Sodium Succinate (Solu-Medrol 125 MG Vial) 0 .STK-MED ONE .ROUTE (DC) Midazolam HCl (VERSED) 0 .STK-MED ONE .ROUTE (DC) Fentanyl Citrate (SUBLIMAZE) 0 .STK-MED ONE .ROUTE (DC) Heparin Sodium (HEPARIN SODIUM) 0 .STK-MED ONE .ROUTE (DC) Heparin Sodium/Sodium Chloride (HEPARIN 2,000 UNITS/NS 1,000mL) 1,000 ML .STK-MED ONE IV (DC) Heparin Sodium/Sodium Chloride (HEPARIN 1,000 UNITS/NS 500ML) 500 ML .STK- MED ONE IV (DC) Lidocaine HCl (LIDOCAINE HCL/PF) 0 .STK-MED ONE .ROUTE (DC) Nitroglycerin/Dextrose (NITROGLYCERIN 50,000MCG/D5W 250ML) 250 ML .STK-MED ONE IV (DC) Verapamil HCl (ISOPTIN) 0 .STK-MED ONE IV (DC) Acetaminophen (TYLENOL EXTRA STRENGTH) 500 MG Q4H PRN PRN PO Atropine Sulfate (ATROPINE SULFATE 0.1MG/ML SYR) 0.5 MG ASDIR PRN IV Ciprofloxacin HCl (CIPRO) 500 MG DAILY PRN PO (DC) Metronidazole (FLAGYL) 500 MG TID PRN PO (DC) Sodium Chloride (SODIUM CHLORIDE 0.9%) 1,000 ML .[id number] ONE IV (DC) Sodium Chloride (SODIUM CHLORIDE 0.9%) 500 ML ASDIR PRN IV Famotidine (PEPCID) 0 .STK-MED ONE [...] ONCE ONE IV (DC) General appearance: alert, oriented, no acute distress, pleasant, conversational , mental status normal, no respiratory distress Head/Eyes: atraumatic, PERRL ENT: moist mucosal membranes Neck: full range of motion, no JVD Cardiovascular: CV assessment: regular rate and rhythm, no murmur Respiratory: decreased breath sounds, no distress Abdomen: soft, non-tender, normal bowel sounds, no distention, no guarding Genitourinary: no flank pain, no urinary catheter Upper extremity: UE assessment: normal temperature, no edema Lower extremity: LE assessment: normal temperature, no edema Neuro/CERAMIC PAINTER: alert, oriented X 3, normal speech Psychiatry: [...] the greater saphenous veins bilaterally as above. Impression By: Heri Marrero M.D. ULTRASOUND - [place] 07/28 1144 Report Impression - Status: SIGNED Entered: 07/28/2022 1155 IMPRESSION: 1. No ultrasound evidence for hemodynamically [...] GERD , temporal arteritis (on prednisone) presented to [facility] for elective PCI. Patient experiences intermittent shortness of breath with exertion for several years and worsen in past few months. He also had chest discomfort w/ exertion few weeks ago; outpatient nuclear stress test was normal. However, he still experienced w/ PETERSEN, therefore, he scheduled LHC. Per patient he had PCI w/ stenting on LAD in July 07, 2022 and plan to have a stage PCI yesterday, however, it was not successful; therefore, CTS was consulted for CABG. Patient denied orthopnea, no PND. No cough, no fever. Reports heartburn and relieved w / Maalox at home. Workup: CBC and BMP - unremarkable. Vein mapping was done today. Carotid ultrasound was negative for significant stenosis. At present, on RA, NAD. - CAD. s/p LHC: multivessels disease Continue BB, statins, ASA, and Ranexa. on telemtry EF 55 to 60% with grade 1 diastolic dysfunction CABG today canceled d/t platelet response to Plavix dropped 157 - sometimes next week. Per CTS. - HTN. BP controlled. On Bystolic, Norvasc and Losartan. Hydralazine PRN. - HLD. On statins. - Chronic temporal arteritis. On prednisone. - GERD. Per IM. On Pepcid. Add Maalox PRN. - ETOH. Per IM. Advised cessation. Stable. No CP. at 2059 RPT #:[id number] END OF [id number] 11:54:00 [facility] ([facility] Cardiothoracic Surgery Consult REPORT#:[id number] REPORT STATUS: Signed DATE:07/28/22 TIME: 1154 PATIENT: MARY DALY UNIT #: [id number] ROOM/BED: [place] [address] : 53 AGE: 66 SEX: M ATTEND: Anthony Loaiza MD ADM AUTHOR: Rosalind Mendez Physic * ALL edits or amendments must be made on the electronic/computer document * Rosalind Mendez 07/28/22 1154: History of Present Illness HPI Chief complaint: Chest Pains, CAD. HPI: This is a 66-year gentleman with past medical history of coronary artery disease status post PCI in the past, with most recent in July 07, 2022, history of temporal arteritis on chronic prednisone since 2016, diverticulitis, gout, hypertension, hyperlipidemia. The patient reports a history of exertional shortness of breath with occasional chest pain over the past several weeks. 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 This revealed multivessel CAD. CV surgery consulted for evaluation for coronary bypass graft. The patient reports a history of diabetes, diet controlled for the past [...] status for patients 13 years old or older: Never Smoker Review of Systems Free Text ROS Notes Free Text ROS Notes: Constitutional: Negative for fever, chills, weight loss Skin: Negative for rash, negative for swelling negative for any laceration HEENT: Denies hearing loss denies any ear ringing denies any earache denies any sore throat denies any throat pain Respiratory: Denies dyspnea on exertion denies hemoptysis denies any cough denies any shortness of breath Cardiac: Denies chest pain, denies palpitations denies orthopnea GI: Denies constipation denies diarrhea : Denies hematuria denies dysuria denies flank pain Musculoskeletal: Denies any joint pain denies any joint swelling denies any myalgia Hematologic: Denies any easy bruising, denies any bleeding Endocrine: denies any night sweats, denies polyuria polydipsia Neurologic: Denies any lightheaded denies any headache denies any confusion denies any dizziness Objective [...] groomed, no acute distress. HEENT: conjunctiva clear, extraocular movement intact, PERRLA, sclera anicteric. normal dentition, gums, normal, oral mucosa without pallor or cyanosis. Neck: no, JVD, trachea midline, no, lymphadenopathy, neck supple, normal ROM. Respiratory: Clear to auscultation, no distress. Cardiovascular: regular rate and rhythm, S1, S2, normal, without murmurs, rubs or gallops, pulses, palpable, symetric. Abdomen: Soft, non tender. No rebound. No guarding Extremities: dry, moves all. Musculoskeletal: Full range of motion, no CVA tenderness, no muscle spasm Skin: warm, dry, no, lesions, rash. Neurologic: Alert and oriented x3. Psychiatric: affect and demeanor normal Diagnosis, Assessment Plan Free Text A P: This is a 66-year gentleman with past medical history of coronary artery disease status post PCI in the past, with most recent in July 07, 2022, history of temporal arteritis on chronic prednisone since 2016, diverticulitis, gout, hypertension, hyperlipidemia. The patient reports a history of exertional shortness of breath with occasional chest pain over the past several weeks. 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 This revealed multivessel CAD. CV surgery consulted for evaluation for coronary bypass graft. The patient reports a history of diabetes, diet controlled for the past [...] PCI with most recent June 2022, hold Plavix in preparation for surgery. 2. Hypertension 3. Hyperlipidemia 4. Temporal arteritis in 2017 Continues on prednisone 3 mg We will begin work-up for coronary bypass graft surgery. Patient was seen in exam by Dr. Mccurdy. Further recommendations to follow as work-up underway Thank you for this kind consultation Consultants: cardiology, cardiovascular surgery Ludin Mccurdy 08/11/22 1040: History Allergies: Coded Allergies: hydromorphone (From DILAUDID) (Severe, THROAT SWELLS 07/27/22) crab (Intermediate, ITCHING, CHILLS 07/27/22) doxepin [...] seen and examined Mr. Coughlin. I agree with the findings and plan as documented by [facility] High. Briefly, 66-year-old male with severe coronary artery disease. Patient will benefit from surgical revascularization. I had a long discussion with the patient, explained to angiogram finding and need for surgical revascularization. I have discussed with him the procedure, risk involved, benefit, alternatives, STS risk of, and complications. Patient has agreed for surgery, I am making arrangement for him to have surgical revascularization in the near future. Thank you for the kind consult. at 1215 at 1053 RPT #:[id number] END OF [id number] 09:29:00 [facility]) [facility] Physical REPORT#:[id number] REPORT STATUS: Signed DATE:07/28/22 TIME: 928 PATIENT: MARY DALY UNIT #: [id number] ROOM/BED: [address] : 53 AGE: 66 SEX: M ATTEND: Anthony Loaiza MD ADM AUTHOR: Luther Martin NP * ALL edits or amendments must be made on the electronic/computer document * Luther Martin 07/28/22 0929: History of Present Illness HPI Chief complaint: CAD PCP: PCP: Albino Torre MD HPI: This is a 66 year old male with past medical hx of HTN, HLD, CAD had a cath yesterday and found to have Multivessel CAD. He was admitted to the hospital for CV surgery eval for CABG. He denies any CP, fever, chills, N/v/D. History Additional medical history: HTN, HLD, CAD Alcohol use: Denies EtOH use Drug use: Denies recreational drugs Smoking status for patients 13 years old or older: Never Smoker Medication/Allergy-Vaccine Hx Medications: Home Medications: Medication Dose/Rte/Freq Days Qty Entered Last Max Daily Dose Reviewed ATORVASTATIN (LIPITOR) 10 MG PO DAILY 07/23/22 07/27/22 Strength: 10 MG TAB 1630 1406 CIPROFLOXACIN (CIPRO) 500 MG PO 07/23/22 07/27/22 Strength: 500 MG TAB DAILY PRN 1631 1406 DIVERTICULITIS CLOPIDOGREL (PLAVIX) 75 MG PO DAILY 07/23/22 07/27/22 Strength: 75 MG TAB 1631 1406 metroNIDAZOLE (FLAGYL) 500 MG PO 07/23/22 07/27/22 Strength: 500 MG TAB TID PRN 1631 1406 DIVERTICULITIS NEBIVOLOL (BYSTOLIC) 20 MG PO BID 07/23/22 07/27/22 Strength: 20 MG TAB 1631 1406 OMEPRAZOLE ER (PriLOSEC) 40 MG PO 07/23/22 07/27/22 Strength: 40 MG CAP.DR DAILY PRN ACID 1632 1406 REFLUX predniSONE 1 MG PO TID 07/23/22 07/27/22 Strength: 1 MG TAB 1633 1406 SILDENAFIL (VIAGRA) 100 MG PO 07/23/22 07/27/22 Strength: 100 MG TAB DAILY PRN PRN ED 1633 1406 SODIUM FLUORIDE 1 APPLIC TOPICAL 07/23/22 07/27/22 (PREVIDENT 5000 1.1% DAILY 1633 1406 DENTAL) Strength: 1.1 % GEL ASPIRIN 81 MG PO DAILY 07/23/22 07/27/22 Strength: 81 MG TAB.CHEW 1633 1406 POTASSIUM GLUCONATE 1 TAB PO DAILY 07/23/22 07/27/22 Strength: 550 MG (90 MG) 1634 1406 TAB CALCIUM CARBONATE 600 MG PO DAILY 07/23/22 07/27/22 (CALTRATE 600 MG) 1634 1406 Strength: 600 MG CALCIUM (1,500 MG) TAB CHOLECALCIFEROL 1,000 UNITS PO DAILY 07/23/22 07/27/22 (VITAMIN D3) 1634 1406 (VITAMIN D3) Strength: 25 MCG (1,000 UNIT) TAB ACETAMINOPHEN (TYLENOL) 500 MG PO 07/23/22 07/27/22 Strength: 500 MG TAB Q4H PRN PRN PAIN 1634 1406 IBUPROFEN (ADVIL) 200 MG PO 07/23/22 07/27/22 Strength: 200 MG TAB Q6H PRN PRN PAIN 1635 1406 FAMOTIDINE (PEPCID) 20 MG PO DAILY 07/23/22 07/27/22 Strength: 20 MG TAB 1635 1406 amLODIPine (NORVASC) 10 MG PO DAILY 07/23/22 07/27/22 Strength: 10 MG TAB 1635 1406 LOSARTAN (COZAAR) 50 MG PO DAILY 07/23/22 07/27/22 Strength: 50 MG TAB 1635 1406 Current Hospital Medications: Anti-Infective Agents Sig/Coyr Start time Last Medication Dose Route Stop Time Status Admin Ciprofloxacin HCl 500 MG DAILY PRN 07/27 1600 DC (CIPRO) PO 08/03 1559 Metronidazole 500 MG TID PRN 07/27 1600 DC (FLAGYL) PO 08/01 1559 Antihistamine Drugs Sig/Cory Start time Last Medication Dose Route Stop Time Status Admin Diphenhydramine HCl 0 .STK-MED ONE 07/27 1716 DC 07/27 (BENADRYL) .ROUTE 1728 Diphenhydramine HCl 0 .STK-MED ONE 07/27 1318 DC (BENADRYL) IV Diphenhydramine HCl 25 MG PREMED [...] Sodium 0 .STK-MED ONE 07/27 1659 DC 07/27 (HEPARIN SODIUM) .ROUTE 1728 Heparin Sodium/ 1,000 ML .STK-MED ONE 07/27 1659 DC 07/27 Sodium Chloride IV 1728 (HEPARIN 2,000 UNITS/ NS 1,000mL) Heparin Sodium/ 500 ML .STK-MED ONE 07/27 165 DC 07/27 Sodium Chloride IV 1728 (HEPARIN 1,000 UNITS/ NS 500ML) Cardiovascular Drugs Sig/Cory Start time Last Medication Dose Route Stop Time Status Admin Amlodipine Besylate 10 MG DAILY 07/28 0900 DC (NORVASC) PO 08/27 0859 Amlodipine Besylate 10 MG DAILY 07/28 09 AC 07/28 (NORVASC) PO 08/27 0859 0928 Atorvastatin Calcium 10 MG DAILY 07/28 09 DC (LIPITOR) PO 08/27 0859 Losartan Potassium 50 MG DAILY 07/28 899 AC 07/28 (COZAAR) PO 08/27 0859 0931 Amlodipine Besylate 10 MG BEDTIME 07/27 2315 DC (NORVASC) PO 08/26 2303 Atorvastatin Calcium 10 MG BEDTIME 07/27 2315 AC 07/27 (LIPITOR) PO 08/26 2303 2315 Nebivolol 20 MG BEDTIME 07/27 2315 AC 07/27 (BYSTOLIC) PO 08/27 205 2315 Nebivolol 20 MG BID 07/27 2100 CAN (BYSTOLIC) PO 08/26 2058 Lidocaine HCl 0 .STK-MED ONE 07/27 1658 DC 07/27 (LIDOCAINE HCL/PF) .ROUTE 1728 Nitroglycerin/ 250 ML .STK-MED ONE 07/27 165 DC 07/27 Dextrose IV 1728 (NITROGLYCERIN 50,000MCG/D5W 250ML) Verapamil HCl 0 .STK-MED ONE 07/27 1658 DC 07/27 (ISOPTIN) IV 1728 Central Nervous System Agents Sig/Cory Start time Last Medication Dose Route Stop Time Status Admin Aspirin 81 MG DAILY 07/28 09 AC 07/28 (ASPIRIN) PO 08/27 0859 0931 Midazolam HCl 0 .STK-MED ONE 07/27 171 DC (VERSED) .ROUTE Fentanyl Citrate 0 .STK-MED ONE 07/27 1714 DC (SUBLIMAZE) .ROUTE Acetaminophen 500 MG Q4H PRN PRN 07/27 1600 AC 07/28 (TYLENOL EXTRA PO 08/26 1559 0930 STRENGTH) Electrolytic, Caloric, And Pearl Sig/Cory Start time Last Medication Dose Route Stop Time Status Admin Sodium Chloride 1,000 ML .[id number] ONE 07/27 1600 DC (SODIUM CHLORIDE IV 07/28 0519 0.9%) Sodium Chloride 500 ML ASDIR PRN 07/27 1600 AC (SODIUM CHLORIDE IV 08/26 1559 0.9%) Gastrointestinal Drugs Sig/Cory Start time Last Medication Dose Route Stop Time Status Admin Famotidine 20 MG DAILY 07/28 0900 AC 07/28 (PEPCID) PO 08/27 0859 0932 Bismuth Subsalicylate 30 ML ONCE ONE 07/27 1945 DC 07/27 (PEPTO-BISMOL 262MG/ PO 07/27 1945 195 15ML) Pantoprazole 40 MG ONCE ONE 07/27 1929 DC (PROTONIX) PO 07/27 1930 Famotidine 0 .STK-MED ONE 07/27 1321 DC (PEPCID) PO Famotidine 20 MG ONCE ONE 07/27 1315 CAN (PEPCID) IV 07/27 131 Hormones And Synthetic Substit Sig/Cory Start time Last Medication Dose Route Stop Time Status Admin Prednisone 2 MG C BK 07/28 0800 AC 07/28 (predniSONE) PO 08/27 0759 0935 Prednisone 1 MG BEDTIME 07/27 2315 AC 07/27 (predniSONE) PO 08/26 2314 2325 Prednisone 1 MG TID 07/27 2100 CAN (predniSONE) PO 08/26 205 Methylprednisolone 0 .STK-MED ONE 07/27 1716 DC 07/27 Sodium Succinate .ROUTE 1728 (Solu-Medrol 125 MG Vial) Methylprednisolone 0 .STK-MED ONE 07/27 1318 DC Sodium Succinate IV (Solu-Medrol 125 MG Vial) Methylprednisolone 125 MG ONCE ONE 07/27 1315 DC 07/27 Sodium Succinate IV 07/27 1316 1323 (Solu-Medrol 125 MG Vial) Review of Systems Constitutional: fatigue, generalized weakness. Allergy/Immun: Denies: anaphylaxis, hives, itching, rhinorrhea. ENT: Denies: ear ringing, nasal congestion, sinus problem, sore throat, throat pain, tongue pain. Respiratory: Denies: PETERSEN (dyspnea on exertion), parox nocturnal dyspnea, productive cough ( sputum). Cardiovascular: Denies: PETERSEN (dyspnea on exertion), edema, palpitations. GI: Denies: anorexia, dysphagia, hematochezia, melena, rectal pain. : Denies: flank pain, frequency, hematuria, penile discharge, testicular swelling. Heme: Denies: bleeding. Neuro: Denies: change in LOC, dizziness, gait problem, seizure. Objective General VS/I O: Vital Signs: Date Time Temp Pulse Resp B/P B/P Pulse O2 O2 Flow FiO2 Mean Ox Delivery Rate 07/28 0656 36.5 67 20 159/89 0.0 94 Room air / 0600 68 16 93 06/07 0500 74 29 94 06/07 0400 78 27 93 06/07 0348 36.7 71 20 145/74 97.4 96 Room air 06/07 0300 70 13 94 06/07 0200 69 19 96 06/ 0100 72 14 93 06/07 0000 72 [...] Amlodipine Besylate (NORVASC) 10 MG DAILY PO (DC) Amlodipine Besylate (NORVASC) 10 MG DAILY PO Aspirin (ASPIRIN) 81 MG DAILY PO Atorvastatin Calcium (LIPITOR) 10 MG DAILY PO (DC) Clopidogrel Bisulfate (Plavix) 75 MG DAILY PO (DCr) Famotidine (PEPCID) 20 MG DAILY PO Losartan [...] (DC) Diphenhydramine HCl (BENADRYL) 0 .STK-MED ONE .ROUTE (DC) Methylprednisolone Sodium Succinate (Solu-Medrol 125 MG Vial) 0 .STK-MED ONE .ROUTE (DC) Midazolam HCl (VERSED) 0 .STK-MED ONE .ROUTE (DC) Fentanyl Citrate (SUBLIMAZE) 0 .STK-MED ONE .ROUTE (DC) Heparin Sodium (HEPARIN SODIUM) 0 .STK-MED ONE .ROUTE (DC) Heparin Sodium/Sodium Chloride (HEPARIN 2,000 UNITS/NS 1,000mL) 1,000 ML .STK-MED ONE IV (DC) Heparin Sodium/Sodium Chloride (HEPARIN 1,000 UNITS/NS 500ML) 500 ML .STK- MED ONE IV (DC) Lidocaine HCl (LIDOCAINE HCL/PF) 0 .STK-MED ONE .ROUTE (DC) Nitroglycerin/Dextrose (NITROGLYCERIN 50,000MCG/D5W 250ML) 250 ML .STK-MED ONE IV (DC) Verapamil HCl (ISOPTIN) 0 .STK-MED ONE IV (DC) Acetaminophen (TYLENOL EXTRA STRENGTH) 500 MG Q4H PRN PRN PO Atropine Sulfate (ATROPINE SULFATE 0.1MG/ML SYR) 0.5 MG ASDIR PRN IV Ciprofloxacin HCl (CIPRO) 500 MG DAILY PRN PO (DC) Metronidazole (FLAGYL) 500 MG TID PRN PO (DC) Sodium Chloride (SODIUM CHLORIDE 0.9%) 1,000 ML .[id number] ONE IV (DC) Sodium Chloride (SODIUM CHLORIDE 0.9%) 500 ML ASDIR PRN IV Famotidine (PEPCID) 0 .STK-MED ONE [...] soft Genitourinary: no bladder distention, no flank pain, no urinary catheter Extremities: no calf tenderness, no clubbing, no cyanosis Musculoskeletal: no CVA tenderness, no muscle spasm Neuro/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 Discussion Code status: [...] repalce as needed. Monitor. Anthony Loaiza 07/29/22 2113: History Medication/Allergy-Vaccine Hx Allergies: Coded Allergies: hydromorphone (From DILAUDID) (Severe, THROAT SWELLS 07/27/22) crab (Intermediate, ITCHING, CHILLS 07/27/22) doxepin [...] with and documented by Luther Montiel NP at 1233 at 2141 RPT #:[id number] END OF [id number] [place] [address] PATIENT NAME: MARY DALY ADMIT DATE: 07/27/22 ACCOUNT NO: [id number] ROOM NO: [facility] AGE: 66 REPORT TYPE: eELECTROCARDIOGRAM REPORT SEX: M ADMITTING PHYSICIAN: ATTENDING PHYSICIAN:Anthony Loaiza MD Order: [id number] Test Reason : POST PCI Test Date/Time Stamp: TueJul 28 2022 07:34:04 Blood Pressure : / mmHG Vent. Rate : 069 BPM Atrial Rate : 069 BPM P-R Int : 138 ms QRS Dur : 092 ms QT Int : 448 ms P-R-T Axes : 024 012 027 degrees QTc Int : 480 ms Normal sinus rhythm Prolonged QT Incomplete right bundle branch block Abnormal ECG POST OP Confirmed by ALBINO HANCOCK MD ([id number]) on 07/28/2022 8:42:30 AM Referred By: Sam Price Confirmed by:ALBINO HANCOCK MD at 0842 PATIENT NAME: MARY DALY 23:29:00 [facility] Clinical Note REPORT#:[id number] REPORT STATUS: Signed DATE:07/27/22 TIME: 2328 PATIENT: MARY DALY UNIT #: [id number] ROOM/BED: [place] [address] : 53 AGE: 66 SEX: M ATTEND: Sam Price MD ADM AUTHOR: Tenisha Zacarias MD * ALL edits or amendments must be made on the electronic/computer document * Clinical Note Note: Patient's insurance is [employer]. Notified Dr. Loaiza about the admission. Also informed RN that patient is assigned to Dr. Epperson group. at [address] [facility] #:[id number] END OF [id number] [place] [address] PATIENT NAME: MARY DALY ADMIT DATE: ACCOUNT NO: [id number] ROOM NO: AGE: 66 REPORT TYPE: eELECTROCARDIOGRAM REPORT SEX: M ADMITTING PHYSICIAN: ATTENDING PHYSICIAN:Sam Price MD Order: [id number] Test Reason : PREOP Test Date/Time Stamp: TueJul 23 2022 16:03:05 Blood Pressure : / mmHG Vent. Rate : 055 BPM Atrial Rate : 055 BPM P-R Int : 130 ms QRS Dur : 098 ms QT Int : 484 ms P-R-T Axes : 020 050 037 degrees QTc Int : 463 ms Sinus bradycardia with premature atrial complexes with aberrant conduction Abnormal ECG PRE_OP Confirmed by ALBINO HANCOCK MD ([id number]) on 07/23/2022 4:09:40 PM Referred By: Sam Price Confirmed by:ALBINO HANCOCK MD at 1609 PATIENT NAME: MARY DALY
== END 2024-07-10 19:44 | disposition home or self-care (01) ==
LOC: ER 17:15
DX: R10.31 Right lower quadrant pain (principal)
CPT/HCPCS: 36415; 74176; 80053; 83690; 85025; 99283